=== PATIENT | female | born 1970 | race African-American/Black ===

== ENCOUNTER 2016-04-11 11:17 | Inpatient (IN) | payer OTHER ==
[2016-04-11] VITALS (10 sets, daily range): BP systolic 152–275; BP diastolic 72–165; PULSE 69–150; RESP 14–40; TEMP 97.3–97.5; O2SAT 100
[~2016-04-11] VITALS: Ht 170.2 cm; Wt 49.6 kg
[~2016-04-11 11:17] MED LIST: CARV12.5 PO; NAPR550 PO; PRIN20TA2 PO
[2016-04-11] MEDS ORDERED: ETOMIDATE 20 MG/10 ML VIAL ONE (11:20)
[2016-04-11] MEDS ORDERED: SUCCINYLCHOLINE CHLORIDE 200 MG/10 ML VIAL ONE (11:21)
[2016-04-11] MEDS ORDERED: LIDOCAINE HCL 2% 100 MG/5 ML SYRINGE ONE (11:24)
[2016-04-11] MEDS ORDERED: ETOMIDATE 20 MG/10 ML VIAL IV PUSH ONE (11:45)
[2016-04-11] MEDS ORDERED: LIDOCAINE HCL 2% 100 MG/5 ML SYRINGE IV PUSH ONE (11:45)
[2016-04-11] MEDS ORDERED: SUCCINYLCHOLINE CHLORIDE 200 MG/10 ML VIAL IV PUSH ONE (11:45)
[2016-04-11] MEDS ORDERED: niCARdipine INJ 25 MG in SODIUM CHLOR 0.9% 250 ML INJ 250 ML IV ONE (11:45)
--- NOTE | 2016-04-11 11:50 | RADRPT ---
EXAM DATE/TIME: 04/11/2016 11:32 [facility] COMPARISON: No previous studies available for comparison. INDICATIONS : Altered mental status. RADIATION DOSE: 56.37 CTDIvol (mGy) MEDICAL HISTORY: Unobtainable. SURGICAL HISTORY: Unobtainable. ENCOUNTER: Initial ACUITY: 1 day PAIN SCALE: Non-responsive LOCATION: Cranial TECHNIQUE: Multiple contiguous axial images were obtained of the head. Using automated exposure control and adjustment of the mA and/or kV according to patient size, radiation dose was kept as low as reasonably achievable to obtain optimal diagnostic quality images. FINDINGS: There is parenchymal hemorrhage, ventricular hemorrhage and subarachnoid hemorrhage all associated wi th what it is probably a ruptured MCA aneurysm on the left. The ventricles are minimally prominent. The rig ht hemisphere is unremarkable. Posterior fossa appears normal with the exception of blood in the fourth ventricle. CONCLUSION: 1. 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 2. Findings have been discussed with Dr. Benedict on today's date. Ricardo Castellanos MD FACR on April 11, 2016 at 11:43 Board Certified Radiologist. This report was verified electronically.
[2016-04-11] MEDS ORDERED: IOHEXOL 350 MG/ML 10 ML VIAL (for RAD DIAG) IV ONE (12:11)
[2016-04-11] MEDS ORDERED: LORazepam 2 MG/ML VIAL ONE (12:14)
--- NOTE | 2016-04-11 12:28 | PD ---
HPI Chief Complaint: Altered Mental Status Time Seen by Provider: 11:19 Travel History International Travel<30 days: No Contact w/Intl Traveler<30days: No Traveled to known affect area: No History of Present Illness HPI The patient was seen and examined in the presence of the nurse. This patient was found on the ground unresponsive by family members and paramedics were called. They found her with a GCS of 3 and a blood pressure of 290 systolic. She was brought in with Ambu bag support. She is obviously unable to provide any history or review of systems. She is unresponsive and nonverbal PFSH Past Medical History Arthritis: No Asthma: No Autoimmune Disease: No Blood Disorders: No Anxiety: No Depression: No Heart Rhythm Problems: No Cancer: No High Cholesterol: No Chest Pain: No Congestive Heart Failure: No COPD: No Cerebrovascular Accident: No Diabetes: No Diminished Hearing: No GERD: No Headaches: No Hepatitis: No Hiatal Hernia: No Hypertension: Yes Kidney Stones: No Myocardial Infarction: No Renal Failure: No Seizures: No Sleep Apnea: No Thyroid Disease: No Ulcer: No : 4 Para: 2 Miscarriage: 2 Ectopic : Yes Tubal Ligation: Yes Past Surgical History AICD: No Eye Surgery: Yes (12/07) Pacemaker: No Social History Alcohol Use: No Tobacco Use: Yes (patient reports that she quit smoking when she found out she was .) Substance Use: No Allergies-Medications (Allergen,Severity, Reaction): Coded Allergies: No Known Allergies (Verified , 05/20/10) Reported Meds & Prescriptions Reported Meds & Active Scripts Active Anaprox Ds (Naproxen Sodium) 550 Mg Tab 1 Tab PO BIDPRN Reported Coreg (Carvedilol) 12.5 Mg Tab 12.5 Mg PO BID Prinivil (Lisinopril) 20 Mg Tab 20 Mg PO DAILY Review of Systems ROS Limitations: Clinical Condition, Altered Mental Status, Unresponsive Physical Exam Narrative GENERAL: Well-nourished, well-developed patient who is unresponsive with clenched teeth SKIN: Warm and dry. HEAD: Atraumatic. Normocephalic. EYES: Pupils equal and round. No scleral icterus. No injection or drainage. ENT: No nasal bleeding or discharge. Mucous membranes pink and moist. NECK: Trachea midline. No JVD. CARDIOVASCULAR: Regular rate and rhythm. No murmur appreciated. RESPIRATORY: No accessory muscle use. Clear to auscultation. Breath sounds equal bilaterally. GASTROINTESTINAL: Abdomen soft, non-tender, nondistended. Hepatic and splenic margins not palpable. MUSCULOSKELETAL: No obvious deformities. No clubbing. No cyanosis. No edema. NEUROLOGICAL: GCS 3. Pupils are equal and round at 3 mm. Positive corneal reflex bilaterally. Impossible to test motor strength or sensation given her lack of participation in the exam PSYCHIATRIC: Impossible to test mood and affect; insight and judgment poor Data Data Last Documented VS Vital Signs Date Time Temp Pulse Resp B/P Pulse Ox O2 Delivery O2 Flow Rate FiO2 04/11/16 11:45 100 Orders Etomidate Inj (Amidate Inj) (04/11/16 11:20) Nicardipine Inj (Cardene Inj) (04/11/16 11:20) Succinylcholine Inj (Quelicin Inj) (04/11/16 11:21) Lidocaine 2% Inj (Xylocaine 2% Inj) (04/11/16 11:24) Ct Brain W/O Iv Contrast(Rout) (04/11/16 ) Iv Access Insert/Monitor (04/11/16 11:31) Complete Blood Count With Diff (04/11/16 11:31) Basic Metabolic Panel (Bmp) (04/11/16 11:31) Prothrombin Time / Inr (Pt) (04/11/16 11:31) Act Partial Throm Time (Ptt) (04/11/16 11:31) Drug Screen, Random Urine (04/11/16 11:31) Alcohol (Ethanol) (04/11/16 11:31) Chest, Single Ap (04/11/16 ) Ed Urine Pregnancytest Poc (04/11/16 11:31) Arterial Blood Gas (Abg) (04/11/16 ) Nicardipine Inj (Cardene Inj) (04/11/16 11:45) Etomidate Inj (Amidate Inj) (04/11/16 11:45) Succinylcholine Inj (Quelicin Inj) (04/11/16 11:45) Lidocaine 2% Inj (Xylocaine 2% Inj) (04/11/16 11:45) Cta Brain W Iv Contrast W 3d (04/11/16 11:51) Cta Neck W Iv Contrast W 3d (04/11/16 11:51) Iohexol 350 Inj (Omnipaque 350 Inj) (04/11/16 12:11) Lorazepam Inj (Ativan Inj) (04/11/16 12:14) Admit Order (Ed Use Only) (04/11/16 12:14) Rocuronium Inj (Zemuron Inj) (04/11/16 12:30) Lorazepam Inj (Ativan Inj) (04/11/16 12:30) MDM Medical Decision Making Medical Screen Exam Complete: Yes Emergency Medical Condition: Yes Medical Record Reviewed: Yes Differential Diagnosis Intracranial hemorrhage, aneurysm rupture, CVA Narrative Course I have reviewed the patient's electronic medical record. She was here 2009 with poorly controlled hypertension This patient Arrives critically ill. She has GCS 3 and no ability to control her airway INTUBATION: The patient was put in optimal position for the procedure. Rapid sequence intubation was initiated by me using 100 mg IV lidocaine and then 20 milligrams of etomidate IV and 100 milligrams of succinylcholine IV. The patient was intubated with a 8.0 cuffed endotracheal tube. Tube placement was confirmed by visualization of the tube and balloon passing through the cords, capnometry and subsequent chest x-ray. Breath sounds were equal and well aerated bilaterally postintubation. No breath sounds over stomach. Patient tolerated procedure well. Suspected intracranial hemorrhage based on the presentation Patient has hypertensive emergency as well I initiated Cardene drip. Blood pressure was 2:30 systolic after intubation Brought it down to a goal of 160 systolic I discussed the brain CT with radiologist omar jackson to confirms a large amount of blood on the left side likely from an MCA aneurysm rupture Patient will receive head and neck CTA to evaluate for this Case reviewed in detail with the PA for Dr. Meléndez, neurosurgeon on-call Patient will be admitted to intensive care and I have placed a call to the red lead burner to discuss as well Patient will require emergent ventriculostomy Patient required some additional sedation so I gave her dose of 2 mg IV Ativan which didn't do anything. I gave her 1 dose of Zemuron this to allow procedures to be completed such as OG tube and Rebollar catheter etc. Labs are running 4 CBC metabolic profile coagulation studies alcohol tox etc. I reviewed the case in detail with red lead burner Dr. Junior Patient will be headed up to intensive surgical care very shortly This patient is extremely critical and will be sent to intensive care on a ventilator and Cardene drip to get emergent ventriculostomy Critical Care Narrative Aggregate critical care time was 80 minutes. Time to perform other separately billable procedures was not included in the critical care time. My time did not include minutes spent treating any other patients simultaneously or on activities that did not directly contribute to the patient's treatment. The services I provided to this patient were to treat and/or prevent clinically significant deterioration that could result in: Brain stem herniation, , permanent neurologic disability I provided critical care services requiring my management, as noted below: Chart data review, documentation time, medication orders and management, vital sign assessments/reviewing monitor data, ordering and reviewing lab tests, ordering and interpreting/reviewing x-rays and diagnostic studies, care of the patient and discussion of the patient with the admitting physicians. Physician Communication Physician Communication I discussed with neurosurgeon PA and red lead burner Admitting Information Admitting Physician Requests: Admit Diagnosis: intracranial hemorrhage CoMorbid Conditions Hypertension Lisandro Benedict MD Apr 11, 2016 12:28
[2016-04-11] MEDS ORDERED: ROCURONIUM INJ 50 MG/5 ML VIAL IV ONE (12:30)
[2016-04-11] MEDS ORDERED: LORazepam 2 MG/ML VIAL IV PUSH ONE (12:30)
[2016-04-11 12:44] LABS: HEMATOCRIT 26.2 % (35.0-46.0); MEAN CELL VOLUME 65.1 FL (80.0-100.0); MEAN CORPUSCULAR HEMOGLOBIN 19.6 PG (27.0-34.0); MEAN CORPUSCULAR HGB CONC 30.1 % (32.0-36.0); PLATELET COUNT 279 TH/MM3 (150-450); RED BLOOD COUNT 4.02 MIL/MM3 (4.00-5.30); RED CELL DISTRIBUTION WIDTH 22.1 % (11.6-17.2); WHITE BLOOD COUNT 11.2 TH/MM3 (4.0-11.0)
[2016-04-11 12:46] LABS: HEMO FLAGS AUTO DIFF
[2016-04-11 12:49] LABS: APTT (PATIENT) 22.6 SEC (22.6-28.8); PROTHROMBIN TIME - PATIENT 10.2 SEC (9.8-11.4)
--- NOTE | 2016-04-11 12:51 | RADRPT ---
EXAM DATE/TIME: 04/11/2016 12:01 [facility] COMPARISON: No previous studies available for comparison. INDICATIONS: Bleed. Abnormal brain scan. IV CONTRAST: 50 cc Omnipaque 350 (iohexol) IV ; Cumulative dose for multiple exams. RADIATION DOSE: 27.81 CTDIvol (mGy) ; Combined studies MEDICAL HISTORY: Unobtainable. SURGICAL HISTORY: Unobtainable. ENCOUNTER: Initial ACUITY: 1 day PAIN SCALE: Non-responsive LOCATION: Brain TECHNIQUE: Volumetric scanning was performed using a multi-row detector CT scanner. The data was post processed with a variety of visualization algorithms including full volume maximum intensity pr ojection, multi-planar sliding thin slab reformation, curved planar reformation, and surface renderin g techniques. Using automated exposure control and adjustment of the mA and/or kV according to patie nt size, radiation dose was kept as low as reasonably achievable to obtain optimal diagnostic quality images. FINDINGS: CT of the brain was performed. There is a small aneurysm at the origin of the M2 bifurcation on the right. There is a second aneury sm associated with the cavernous carotid, both on the left. There is no vasospasm as yet. Large par enchymal hemorrhage is again noted. CONCLUSION: Aneurysm as described above. The MCA aneurysm is probably the one that bled. Ricardo Castellanos MD FACR on April 11, 2016 at 12:41 Board Certified Radiologist. This report was verified electronically.
[2016-04-11 12:56] LABS: ANION GAP 16 MEQ/L (5-15); BICARBONATE 17.9 MEQ/L (21.0-32.0); BLOOD UREA NITROGEN 9 MG/DL (7-18); CHLORIDE 106 MEQ/L (98-107); GLOMERULAR FILTRATION RATE 50 ML/MIN (>89); SODIUM (NA) 140 MEQ/L (136-145)
--- NOTE | 2016-04-11 12:56 | RADRPT ---
EXAM DATE/TIME: 04/11/2016 12:01 [facility] COMPARISON: No previous studies available for comparison. INDICATIONS : Bleed. Abnormal brain scan. IV CONTRAST: 50 cc Omnipaque 350 (iohexol) IV ; Cumulative dose for multiple exams. RADIATION DOSE: 27.81 CTDIvol (mGy) ; Combined studies MEDICAL HISTORY : Unobtainable. SURGICAL HISTORY : Unobtainable. ENCOUNTER: Initial ACUITY: 1 day PAIN SCALE: Non-responsive LOCATION: neck TECHNIQUE: Volumetric scanning was performed using a multirow detector CT scanner. The data was post processed with a variety of visualization algorithms including full-volume maximum intensity projection, multip lanar sliding thin-slab reformation, curved-planar reformation, and surface-rendering techniques. Us ing automated exposure control and adjustment of the mA and/or kV according to patient size, radiatio n dose was kept as low as reasonably achievable to obtain optimal diagnostic quality images. FINDINGS: AORTIC ARCH: There is a three-vessel origin of the great vessels from the aorta. No evidence of ostial narrowing. RIGHT CAROTID: The common carotid artery is intact. The carotid bulb has a normal configuration without ulceration o r narrowing. The internal carotid artery lumen is smooth without stenosis. The external carotid susy ry is intact. LEFT CAROTID: The common carotid artery is intact. The carotid bulb has a normal configuration without ulceration or narrowing. The internal carotid artery lumen is smooth without stenosis. The external carotid ar jolynn is intact. VERTEBRALS: The vertebral arteries have a symmetric diameter. No stenotic lesions are seen. CONCLUSION: Negative for hemodynamically significant carotid stenosis. Ricardo Castellanos MD FACR on April 11, 2016 at 12:45 Board Certified Radiologist. This report was verified electronically.
[2016-04-11 12:59] LABS: POTASSIUM 2.6 MEQ/L (3.5-5.1)
[2016-04-11] MEDS ORDERED: POTASSIUM CL 40 MEQ/30 ML LIQ UDC NG STA (13:17)
--- NOTE | 2016-04-11 13:18 | RADRPT ---
EXAM DATE/TIME: 04/11/2016 12:28 [facility] COMPARISON: No previous studies available for comparison. INDICATIONS : Unresponsive, Stroke alert. MEDICAL HISTORY : None. SURGICAL HISTORY : None. ENCOUNTER: Initial ACUITY: 1 day PAIN SCORE: Non-responsive. LOCATION: Bilateral chest FINDINGS: Endotracheal tube is present in good position with tip 3.5 cm above the ganesh. Nasogastric tube desc ends in the stomach. Lungs are focally clear. No pleural effusion is identified. Cardiomediastinal co ntours are satisfactory for technique and projection. CONCLUSION: Satisfactory ET tube positioning. No acute disease. Fei Snyder MD on April 11, 2016 at 13:13 Board Certified Radiologist. This report was verified electronically.
[2016-04-11 13:20] LABS: BLOOD GAS BASE EXCESS -4.2 mmol/L (-2-2); BLOOD GAS CARBOXYHEMOGLOBIN 1.5 % (0-4); BLOOD GAS HCO3 20 mmol/L (22-26); BLOOD GAS METHEMOGLOBIN 1.2 % (0-2); BLOOD GAS O2 HGB SATURATION 98 % (90-100); BLOOD GAS PCO2 33 mmHg (38-42); BLOOD GAS PO2 372 mmHg (61-120); BLOOD GAS TOTAL HGB 7.3 G/DL (12.0-16.0); CRITICAL VALUE NO; OXYGEN DEVICE VENT; TEMP CORR TO 98.6
[2016-04-11 13:24] LABS: DRAW SITE ART LINE; FIO2 100 %; STAT NO; VENT SETTINGS PRVC/20RATE/500/5PEE
[2016-04-11] MEDS ORDERED: LORazepam 2 MG/ML VIAL IV PRN (13:30)
[2016-04-11] MEDS ORDERED: POTASSIUM CL 40 MEQ/30 ML LIQ UDC PO/TUBE PRN (13:30)
[2016-04-11] MEDS ORDERED: POTASSIUM CHLOR 20 MEQ PREMIX 100 ML IV PRN (13:30)
[2016-04-11] MEDS ORDERED: POTASSIUM PHOSPHATE MONOBASIC 500 MG TAB PO/TUBE PRN (13:30)
[2016-04-11] MEDS ORDERED: POTASSIUM PHOSPHATE MONOBASIC 500 MG TAB PO PRN (13:30)
[2016-04-11] MEDS ORDERED: MAGNESIUM SULFATE INJ 4 GM in SODIUM CHLORIDE 0.9% INJ 92 ML IV PRN (13:30)
[2016-04-11] MEDS ORDERED: SODIUM CHLORIDE 0.9% FLUSH 5 ML FLUSH IVF PRN (13:30)
[2016-04-11] MEDS ORDERED: MISCELLANEOUS NURSING INFORMATION XX SCH (13:30)
[2016-04-11] MEDS ORDERED: MAGNESIUM OXIDE 400 MG TAB PO PRN (13:30)
[2016-04-11] MEDS ORDERED: ONDANSETRON HCL 4 MG/2 ML VIAL IV PRN (13:30)
[2016-04-11] MEDS ORDERED: CHLORHEXIDINE GLUCONATE 2 % 1 PACK (2 CLOTHS) TOP PRN (13:30)
[2016-04-11] MEDS ORDERED: POTASSIUM PHOSPHATE INJ 30 MMOL in SODIUM CHLOR 0.9% 250 ML INJ 250 ML IV PRN (13:30)
[2016-04-11] MEDS ORDERED: ACETAMINOPHEN 325 MG TAB PO PRN (13:30)
[2016-04-11 13:34] LABS: ACANTHOCYTES 1+ (NORMAL); NEUTROPHIL # MANUAL DIFF 8.8 TH/MM3 (1.8-7.7); OVALOCYTES 1+ (NORMAL); POLYS (SEG NEUTROPHILS) 79 % (16-70); WBC DIFF SAMPLE 100
[2016-04-11 13:35] LABS: KERATOCYTES OCC (NORMAL); PLATELET ESTIMATE SMEAR NORMAL (NORMAL); PLATELET MORPHOLOGY NORMAL (NORMAL); SCAN/DIFF FINAL DIFF MANUAL; TEARDROP RBCS 1+ (NORMAL)
[2016-04-11] MEDS ORDERED: levETIRAcetam 1000 MG INJ 100 ML IV ONE (13:45)
[2016-04-11] MEDS ORDERED: VERAPAMIL HCL 5 MG/2 ML VIAL ONE (13:48)
[2016-04-11] MEDS: METOPROLOL TARTRATE 25 MG TAB PO SCH ×2 (14:00→21:50)
--- NOTE | 2016-04-11 14:19 | RADRPT ---
EXAM DATE/TIME: 04/11/2016 13:18 [facility] COMPARISON: CTA CAROTID ARTERIES W 3D RECON, April 11, 2016, 12:01. CHEST SINGLE AP, April 11, 2016, 12:28. INDICATIONS : Line placement MEDICAL HISTORY : None. SURGICAL HISTORY : None. ENCOUNTER: Subsequent ACUITY: 1 day PAIN SCORE: Non-responsive. LOCATION: Bilateral chest FINDINGS: Endotracheal tube and nasogastric tube are stable. Left subclavian central line is in good position w ith tip overlying SVC. There is no evidence of pneumothorax or other complication. Chest is otherwise stable with minimal bilateral parenchymal lung opacity.. CONCLUSION: Satisfactory line placement Fei Snyder MD on April 11, 2016 at 14:14 Board Certified Radiologist. This report was verified electronically.
--- NOTE | 2016-04-11 14:30 | PD.PROCEDR ---
Procedure Note Procedure DX: Acute Subarachnoid Hemorrhage OP: 1. Insertion Left Subclavian Vein Central Line (47041) 2. Insertion Right Radial Artery line (73215) Procedure: Right hand Hudson test normal. Right wrist supinated and right radial artery cannulated with 20 gauge angiocath after prep and drape. Dressing applied and good waveform observed. Let chest prepped and draped. Left subclavian vein cannulated and wire easily advanced. Catheter passed over wire to 16 cm. Lumens aspirated and flushed. Dressing applied. CXR with line in good position suitable for use. Jeffrey Chand MD Apr 11, 2016 14:30
--- NOTE | 2016-04-11 15:02 | MH ---
cc: RILEY LEMONS MD DATE OF ADMISSION: 04/11/2016 CHIEF COMPLAINT Brought in for altered mental status. HISTORY OF PRESENT ILLNESS This 46-year-old woman with a longstanding history of hypertension, was found unresponsive at her home and paramedics arrived to find her with shallow breathing and a Ferron coma scale of three. Systolic blood pressure was 290 and under bag mask ventilation. She was brought to the emergency department where she remained unresponsive and required endotracheal intubation, mechanical ventilation. A CT scan of the head showed a large left hemispheric intraparenchymal hemorrhage with subarachnoid blood as well. Subsequent evaluation confirmed a left middle cerebral artery aneurysm which appears to be the culprit lesion. She was brought immediately to the [facility] where we continued Cardene drip infusion for blood pressure control and placed arterial monitoring lines and central venous line. Electrolyte abnormalities were corrected, particularly severe hypokalemia. The ventilator was adjusted to maintain arterial CO2, between 35 and 40. She received Keppra loading intravenously and Nimotop through the nasogastric tube. Usual ICU monitoring was in place and arrangements were made for her to be transported expeditiously to interventional radiology where attempts will be made to coil the aneurysm. PAST MEDICAL HISTORY: Hypertension. ALLERGIES NONE. MEDICATIONS home medications include 1. Lisinopril 20 mg daily. 2. Carvedilol 12.5 mg twice a day. 3. Naprosyn 550 mg p.o. daily. 4. RADIOLOGIC: A chest x-ray was clear, showing endotracheal tube, central line and nasogastric tube in good position. PERTINENT LABORATORY DATA Included electrolytes: Sodium 140, potassium 2.6. Lactic acid 4.9, creatinine 1.36, BUN 9. The arterial blood gas revealed pH 7.40, pCO2 33, pO2 372 with a calculated bicarb of 20. Hematology profile indicated hemoglobin 7.9, platelet count of 279,000. Toxicology screen was negative. REVIEW OF SYSTEMS Unobtainable as the patient is obtunded and intubated. PHYSICAL EXAMINATION: IN GENERAL: Physical examination reveals a well-developed, middle-aged -[place] woman, unresponsive. VITAL SIGNS: Blood pressure 145/92, pulse 128 and sinus, respiratory rate 20 on mechanical ventilation. HEAD, EYES, EARS, NOSE, AND THROAT: Head: Atraumatic and normal. NECK: Supple. No resistance to motion. Orally intubated. LUNGS: Clear bilaterally with good air entry and no wheezes or crackles. HEART: Normal S1-S2, tachycardia, no murmur or rub, neck veins are mildly distended. ABDOMEN: Soft, nontender, nondistended, no guarding, bowel sounds few. EXTREMITIES: Warm, well-perfused, foot and wrist pulses intact. NEUROLOGIC: Pupils are 2 mm and nonreactive. Doll's eyes are absent, deep tendon reflexes are absent at the knee and ankle. No clonus, no withdrawal to stimulation, cough reflex weak. ASSESSMENT 1. Acute subarachnoid hemorrhage, left middle cerebral artery aneurysm. 2. Respiratory failure. 3. Malignant hypertension. 4. Hypokalemia. 5. History of hypertension. 6. Acute encephalopathy. 7. Lactic acidosis. 8. History of hypertension. 9. Acute encephalopathy. 10. Lactic acidosis. PLAN: 1. Plan is to maintain blood pressure less than 120 until aneurysmal coiled. 2. Cardene intravenous infusion for BP control immediately 3. Nimotop 60 mg per NG tube q. 4-hour 4. Protonix for GI ulcer prophylaxis 5. Chemical DVT prophylaxis contraindicated because of active bleeding. 6. SCDs for DVT prophylaxis. 7. Head of bed up 20 degrees. 8. Follow electrolyte replacement closely. 9. Nasogastric tube to low intermittent suction except for minutes. 10. Monitor End tidal CO2, maintain between 35 and 40 Torr by adjusting ventilator rate. 11. Mechanical ventilation PRVC mode, PEEP five. OVERALL IMPRESSION This woman is sustained a devastating intraparenchymal hemorrhage associated with a ruptured of middle cerebral artery distribution aneurysm. There is diffuse subarachnoid and intraventricular blood as well. She is critically ill at this time and her prognosis is guarded. She has been stabilized in the [facility] and will be transported rapidly to the interventional suite for attempted coiling. Critical care time involved is 46 minutes aside from invasive procedures. P. Alexander Lemons MD [facility]/anna marie /2:19 PM /2:51 PM
[2016-04-11] MEDS: niMODipine 30 MG CAP PO SCH ×3 (16:00→23:13)
[2016-04-11] MEDS ORDERED: ceFAZolin 2 GM PREMIX 50 ML ONE (16:09)
[2016-04-11] MEDS ORDERED: HEPARIN SODIUM - IV 10,000 UNITS/10 ML VIAL ONE (17:09)
[2016-04-11] MEDS ORDERED: MIDAZOLAM HCL 2 MG/2 ML VIAL ONE (17:10)
--- NOTE | 2016-04-11 18:20 | PD.RAD ---
Post Procedure Progress Note Pre Procedure Diagnosis: (1) Acute spontaneous subarachnoid intracranial hemorrhage (2) Cerebral aneurysm rupture Post Procedure Diagnosis: (1) Acute spontaneous subarachnoid intracranial hemorrhage (2) Cerebral aneurysm rupture Procedure Date: Apr 11, 2016 Supervising Radiologist: Kennedy Thibodeaux JR Proceduralist/Assist: Kenn Jade, RT(R)(), Letty Boothe, RT(R), Anuradha Alfaro, RT(R)(), Jeramy Gautam RT(R)() Anesthesia: Conscious Sedation Plan of Activity Patient to Unit: Critical Care Patient Condition: Fair See PACS Report for procedural detail/treatment Vascular-Arterial Procedure Procedure 1 Procedure Site: Cerebral Procedure(s): Embolization Access Access Site(s): Right Femoral Artery Closure Site(s): Right vascular closure device Findings: Cerebral angiography shows two aneurysms. The largest and most complex involves the left posterior cerebral origin in this patient with persistent circulation on the left. Successful coil embolization of the largest aneurysm. Preservation of the posterior cerebral artery and ICA following the coiling. Attempts at coil embolization of the M1 aneurysm on the left not successful due to large base/dome ratio. Unable to treat this aneurysm via endovascular methods. Jr. Carlos Eduardo,Kennedy Shaw MD Apr 11, 2016 18:20
[2016-04-11] MEDS ORDERED: IODIXANOL 320 MG/ML 50 ML VIAL (for RAD SPEC) I-ARTERIAL ONE (18:44)
[2016-04-11] MEDS ORDERED: PROPOFOL 1000 MG/100 ML INJ 100 ML ONE (19:50)
[2016-04-11] MEDS ORDERED: NOREPINEPHRINE 4 MG/4 ML AMP ONE (20:03)
--- NOTE | 2016-04-11 20:03 | RADRPT ---
EXAM DATE/TIME: 04/11/2016 14:18 [place] COMPARISON: No previous studies available for comparison. INDICATIONS : <<Patient has acute extensive intracranial hemorrhage with 2 aneurysms observed on CTA. Angiography w ith intervention requested. MEDICAL HISTORY : History of HTN. SURGICAL HISTORY : History of eye surgery. ENCOUNTER: Initial ACUITY: 1 day PAIN SCORE: Nonresponsive. LOCATION: Patient is vented. FLUORO TIME: 57.1 minutes ACCESS SITE: Right Femoral artery SEDATION TIME: 120 minutes CONTRAST: 95 cc Visipaque (iodixanol) MEDICATION(S): 1.) 2 mg midazolam (Versed) IV 2.) 100 mcg fentanyl (Sublimaze) IV 3.) 3000 units Heparin IV 4.) 2 g cefazolin (Ancef) IV Vancomycin within 2 hours of procedure, Ancef (or alternative) within 1 hour of procedure. DEVICE(S): 1.) Left posterior cerebral artery embolic coil(s) 5mm x 10cm Complex Fill 2.) Left posterior cerebral artery embolic coil(s) 5mm x 10cm Complex Fill 3.) Left posterior cerebral artery embolic coil(s) 6mm x 10cm Complex Fill PROCEDURE : 1. Ultrasound-guided puncture of the access site. 2. Angiography of the access site prior to closure device. 3. Conscious sedation with continuous EKG and Oximetry monitoring. 4. Percutaneous closure of the access site. 5. Angiography of the left supraclinoid ICA 6. Angiography of the left M1 segment of the middle cerebral artery 7. 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 The site was prepped in sterile fashion. Full sterile technique was used, including ca p, mask, sterile gloves and gown and a large sterile sheet. Hand hygiene and 2% chlorhexidine and/or betadine/alcohol prep was utilized per protocol for cutaneous antisepsis. The skin and subcutaneous tissues were infiltrated with local anesthetic solution. With ultrasound and fluoroscopic guidance the selected artery was punctured and a vascular sheath was placed. Angiography of the common femoral artery was performed for evaluation prior to percutaneous closure device placement. A 6 [place] Rabbe sheath was positioned in the mid common carotid artery on the left. A neuron guide c atheter was positioned in the peaches portion of the left ICA. Selected angiographic views of the lef t supraclinoid ICA reveal a highly lobulated irregularly shaped saccular aneurysm arising from the or igin of the left posterior cerebral artery in this patient with persistent circulation. This an eurysm is extremely complex in nature and felt to be the ER due to the patients acute hemorrhage. The aneurysm measures up proximally 6 mm in size. Under fluoroscopic guidance the aneurysm was selected with a microcatheter and a total of 3 coils were deployed within the aneurysm. Initially a 5 mm x 10 cm complex fill coil was deployed with a subsequent 5 mm 10 cm complex coil. Lastly a 6 mm x 10 cm co mplex fill coil was utilized to finish the packing of the aneurysm. A followup angiogram was performe d after each coil deployment. The coil pack fills the aneurysm nicely. The posterior cerebral artery and ICA remain patent. Attention was then turned to the small left M1 segment aneurysm. Dedicated angiographic pictures of t his aneurysm show this aneurysm to measure approximately 4 mm in diameter. The base also measures 4 m m. The base/dome ratio is essentially one. Attempts were made at trying to get a 4 mm and subsequentl y 3 mm coil to film of the aneurysm at the base was too large allowing the coil pack to fall into the M1 segment. These coils were not deployed. We're unable to embolize this aneurysm. Hemostasis was obtained with the prescribed medicated closure device. Conscious sedation was perform ed with the prescribed dosages and duration as above. EKG and oximetry remained stable throughout th e procedure. The patient was sent to post anesthesia recovery in stable condition. CONCLUSION: 1. 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 This is the aneurysm felt responsible for the intracranial hemorrhage. 2. Small 4 mm left M1 segment aneurysm. Attempts at embolizing this aneurysm were unsuccessful due to the broad based nature of the aneurysm. Endovascular repair of this aneurysm could not be performed. Kennedy Thibodeaux Jr., MD on April 11, 2016 at 19:51 Board Certified Radiologist. This report was verified electronically.
[2016-04-11] MEDS ORDERED: NOREPINEPHRINE INJ 4 MG in SODIUM CHLOR 0.9% 250 ML INJ 250 ML IV SCH (20:30)
[2016-04-11] MEDS ORDERED: NOREPINEPHRINE 4 MG/D5W 250 ML IV SCH (20:30)
[2016-04-11 20:57] LABS: BLOOD GAS BASE EXCESS -3.1 mmol/L (-2-2); BLOOD GAS CARBOXYHEMOGLOBIN 1.4 % (0-4); BLOOD GAS HCO3 21 mmol/L (22-26); BLOOD GAS METHEMOGLOBIN 1.2 % (0-2); BLOOD GAS O2 HGB SATURATION 98 % (90-100); BLOOD GAS OXYGEN CONTENT 10.2 Vol % (12.0-20.0); BLOOD GAS PCO2 33 mmHg (38-42); BLOOD GAS PO2 450 mmHg (61-120); BLOOD GAS TOTAL HGB 6.5 G/DL (12.0-16.0); TEMP CORR TO 98.6
[2016-04-11 20:59] LABS: CRITICAL VALUE YES; DRAW SITE ART LINE; FIO2 100 %; OXYGEN DEVICE VENTILATOR; STAT NO; VENT SETTINGS PRVC/AC
[2016-04-11] MEDS: levETIRAcetam 500MG PREMIX INJ 100 ML IV SCH (21:45)
[2016-04-11] MEDS: SODIUM CHLORIDE 0.9% FLUSH 5 ML FLUSH IVF SCH (21:47)
[2016-04-11 22:05] LABS: AMPHETAMINE, URINE NEG (NEG); BARBITURATES, URINE NEG (NEG); COCAINE, URINE NEG (NEG)
[2016-04-11] MEDS: NS + KCL 20 MEQ INJ 1,000 ML IV SCH ×2 (22:19→23:51)
[2016-04-11 22:22] LABS: INDIRECT BILIRUBIN 0.3 MG/DL (0.0-0.8); MAGNESIUM 2.2 MG/DL (1.5-2.5); TOTAL BILIRUBIN ADULT 0.4 MG/DL (0.2-1.0)
[2016-04-11 22:27] LABS: BICARBONATE 24.8 MEQ/L (21.0-32.0); POTASSIUM 3.6 MEQ/L (3.5-5.1)
[2016-04-11 22:48] LABS: HEMATOCRIT 21.9 % (35.0-46.0)
[2016-04-11] MEDS: PROPOFOL 1000 MG/100 ML IV SCH ×2 (22:50→23:13)
[2016-04-11 22:51] LABS: REVIEW FLAG FINAL
--- NOTE | 2016-04-11 23:50 | PD.CONS ---
History of Present Illness Service Neurosurgery Consult Requested By Emergency department Reason for Consult Subarachnoid hemorrhage Primary Care Physician Unknown Diagnoses: History of Present Illness 46-year-old female found unresponsive at home by her family this morning. They last spoke to her on the telephone last evening. She has had headaches for approximately a week. Review of Systems Other Unobtainable from the patient. 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 Left ruptured ectopic 2004 Reported Medications Lisinopril Carvedilol Family History No history of aneurysms in the family Social History Previously smoked cigarettes. No alcohol use Family states no illicit drug use Physical Exam Vital Signs Vital Signs Date Time Temp Pulse Resp B/P Pulse Ox O2 Delivery O2 Flow Rate FiO2 04/11/16 22:02 100 40 04/11/16 22:00 76 04/11/16 22:00 97.5 76 14 156/72 100 04/11/16 20:18 100 100 04/11/16 20:00 50 04/11/16 20:00 69 04/11/16 14:40 100 100 04/11/16 14:00 100 04/11/16 12:38 100 100 04/11/16 12:30 100 40 04/11/16 12:30 121 16 164/89 100 Ventilator 100 04/11/16 12:15 100 04/11/16 12:00 111 16 152/87 100 Ventilator 100 04/11/16 11:45 100 04/11/16 11:30 120 16 235/140 100 Ventilator 100 04/11/16 11:30 100 04/11/16 11:20 97.3 150 40 275/165 100 Physical Exam GENERAL: This is a well-nourished, well-developed patient, intubated in the intensive care unit SKIN: No rashes, ecchymoses or lesions. Cool and dry. HEAD: Atraumatic. Normocephalic. EYES: Sclerae are clear and nonicteric ENT: Nose without bleeding, purulent drainage or septal hematoma. Intubated NECK: Trachea midline. No JVD or lymphadenopathy. Supple, no meningeal signs. CARDIOVASCULAR: Regular rate and rhythm without murmurs, gallops, or rubs. RESPIRATORY: Clear to auscultation. Breath sounds equal bilaterally. No wheezes , rales, or rhonchi. Intubated GASTROINTESTINAL: Abdomen soft, nondistended. No hepato-splenomegaly, or palpable masses. No guarding. MUSCULOSKELETAL: Extremities without clubbing, cyanosis, or edema. No joint tenderness, effusion, or edema noted. No calf tenderness. Posterior tibial pulse 2+ bilateral. NEUROLOGICAL: Intubated No eye opening to voice or deep pain or spontaneous Does not follow commands Pupils 3 mm nonreactive Mild corneal responses Absent oculocephalic responses Extensor posturing all extremities to deep pain Laboratory Laboratory Tests Test 04/11/16 04/11/16 04/11/16 04/11/16 12:30 13:06 13:15 20:44 White Blood Count 11.2 Red Blood Count 4.02 Hemoglobin 7.9 Hematocrit 26.2 Mean Corpuscular Volume 65.1 Mean Corpuscular Hemoglobin 19.6 Mean Corpuscular Hemoglobin 30.1 Concent Red Cell Distribution Width 22.1 Platelet Count 279 Mean Platelet Volume 9.1 Neutrophils (%) (Auto) Lymphocytes (%) (Auto) Monocytes (%) (Auto) Eosinophils (%) (Auto) Basophils (%) (Auto) Neutrophils # (Auto) Lymphocytes # (Auto) Monocytes # (Auto) Eosinophils # (Auto) Basophils # (Auto) CBC Comment AUTO DIFF Differential Total Cells 100 Counted Neutrophils % (Manual) 79 Lymphocytes % 16 Monocytes % 5 Neutrophils # (Manual) 8.8 Differential Comment FINAL DIFF MANUAL Platelet Estimate NORMAL Platelet Morphology Comment NORMAL Tear Drop Cells 1+ Ovalocytes 1+ Acanthocytes 1+ Keratocytes OCC Prothrombin Time 10.2 Prothromb Time International 1.0 Ratio Activated Partial 22.6 Thromboplast Time Sodium Level 140 Potassium Level 2.6 Chloride Level 106 Carbon Dioxide Level 17.9 Anion Gap 16 Blood Urea Nitrogen 9 Creatinine 1.36 Estimat Glomerular Filtration 50 Rate Random Glucose 279 Calcium Level 8.5 Phosphorus Level 1.7 Magnesium Level 2.2 Total Bilirubin 0.4 Direct Bilirubin 0.1 Indirect Bilirubin 0.3 Aspartate Amino Transf 43 (AST/SGOT) Alanine Aminotransferase 21 (ALT/SGPT) Alkaline Phosphatase 122 Total Protein 8.0 Albumin 3.7 Ethyl Alcohol Level LESS THAN 3 Blood Gas Puncture Site ART LINE ART LINE Blood Gas Patient Temperature 98.6 98.6 Blood Gas HCO3 20 21 Blood Gas Base Excess -4.2 -3.1 Blood Gas Oxygen Saturation 98 98 Arterial Blood pH 7.40 7.42 Arterial Blood Partial 33 33 Pressure CO2 Arterial Blood Partial 372 450 Pressure O2 Arterial Blood Oxygen Content 11.0 10.2 Arterial Blood 1.5 1.4 Carboxyhemoglobin Arterial Blood Methemoglobin 1.2 1.2 Blood Gas Hemoglobin 7.3 6.5 Oxygen Delivery Device VENT VENTILATOR Blood Gas Ventilator Setting PRVC/20RATE/500/5PEE PRVC/AC Blood Gas Inspired Oxygen 100 100 Lactic Acid Level 4.9 Test 04/11/16 04/11/16 04/11/16 21:33 21:35 22:11 Sodium Level 144 Potassium Level 3.6 Chloride Level 113 Carbon Dioxide Level 24.8 Anion Gap 6 Blood Urea Nitrogen 12 Creatinine 1.02 Estimat Glomerular Filtration 70 Rate Random Glucose 78 Serum Osmolality 299 Lactic Acid Level 1.4 Calcium Level 7.7 Urine Opiates Screen NEG Urine Barbiturates Screen NEG Urine Amphetamines Screen NEG Urine Benzodiazepines Screen POS Urine Cocaine Screen NEG Urine Cannabinoids Screen POS Hemoglobin 6.3 Hematocrit 21.9 Date/Time Procedure Status Source Growth 04/11/16 15:00 Gram Stain - Final Resulted Cerebral Spinal Fluid Shunt Fluid 04/11/16 15:00 CSF Culture Resulted Cerebral Spinal Fluid Shunt Fluid Pending Result Diagram: 04/11/16 2211 04/11/[address] head and CTA neck and head images are reviewed by the undersigned. Agree with findings as follows: Neck CTA 04/11/16 1151 Signed Impressions: Service Date/Time: Monday, April 11, 2016 12:01 - CONCLUSION: Negative for hemodynamically significant carotid stenosis. Ricardo Castellanos MD FACR Head CTA 04/11/16 1151 Signed Impressions: Service Date/Time: Monday, April 11, 2016 12:01 - CONCLUSION: Aneurysm as described above. The MCA aneurysm is probably the one that bled. Ricardo Castellanos MD FACR Head CT 04/11/16 0000 Signed Impressions: Service Date/Time: Monday, April 11, 2016 11:32 - CONCLUSION: 1. 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 2. Findings have been discussed with Dr. Benedict on today's date. Ricardo Castellanos MD FACR Chest X-Ray 04/11/16 0000 Signed Impressions: Service Date/Time: Monday, April 11, 2016 13:18 - CONCLUSION: Satisfactory line placement Fei Snyder MD Cerebral Arteriogram 04/11/16 0000 Signed Impressions: Service Date/Time: Monday, April 11, 2016 14:18 - CONCLUSION: 1. 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 This is the aneurysm felt responsible for the intracranial hemorrhage. 2. Small 4 mm left M1 segment aneurysm. Attempts at embolizing this aneurysm were unsuccessful due to the broad based nature of the aneurysm. Endovascular repair of this aneurysm could not be performed. Kennedy Thibodeaux Jr., MD Assessment and Plan Assessment and Plan Impression: Aneurysmal subarachnoid hemorrhage Left posterior communicating artery, and MCA aneurysms Hypertension Recommendations: Findings assess awake with the patient's family in the intensive surgical care unit Discussed with qa specialist Discussed with emergency room physician Discussed with interventional radiology Patient admitted to intensive surgical care unit Ventriculostomy placed by the undersigned-to be dictated separately Cerebral angiogram for aneurysm coiling Continue nimodipine Continue prophylactic anticonvulsant Non-chemical DVT prophylaxis Ulcer prophylaxis Follow-up CT scan had a.m. Systolic blood pressure 130-160 post-angiogram Follow-up CT angiogram 48 hours to assess for vasospasm Sherwin Meléndez MD Apr 11, 2016 23:50
--- NOTE | 2016-04-11 23:52 | PD.OP ---
Operative Report Date of Surgery: Apr 11, 2016 Preoperative Diagnosis: (1) Acute spontaneous subarachnoid intracranial hemorrhage (2) Cerebral aneurysm rupture Postoperative Diagnosis: (1) Acute spontaneous subarachnoid intracranial hemorrhage (2) Cerebral aneurysm rupture Procedure: Right frontal twist drill for ventriculostomy placement Anesthesia: 1% Xylocaine local anesthetic Intravenous sedation Surgeon: Sherwin Meléndez Table Attendant(s): None Operation and Findings: The procedure was performed in the surgical intensive care unit. The procedure, risks, and possible complications were fully explained to the family prior to the procedure and consent obtained and witnessed. Appropriate timeout procedure was performed with all personnel present and in agreement The patient was placed in supine position with the head and neck in neutral position and the head of the bed elevated approximately 30. The right frontal region was shaved with clippers and sterilely prepped and draped. One percent Xylocaine without epinephrine was used for local infiltration over the small incision site which was made approximately 9-10 cm above the right supraorbital rim, approximately 3-1/2 to 4 cm lateral to the midline, in the mid pupillary line just anterior to the coronal suture. The hand drill was used to make a single twist drill opening in the cranium and the dura was perforated with the trocar. The Codman Bactiseal ventriculostomy catheter was advanced to a depth of 6-7 cm intracranial in a single pass with good return of spinal fluid. Opening pressure was 20 centimeter water The catheter was tunneled to the posterior frontal region with a trocar and secured to the skin with 3-0 nylon suture which was also used to close the small incision. A sterile bactericidal dressing was applied The catheter was connected to the drainage reservoir, and there was good drainage of fluid. The patient's neurologic exam remained stable following the procedure No specimen was sent There was no significant bleeding Sherwin Meléndez MD Apr 11, 2016 23:52
[2016-04-12] VITALS (19 sets, daily range): BP systolic 123–160; BP diastolic 61–78; PULSE 55–72; RESP 14–20; TEMP 97.2–98.6; O2SAT 100
[2016-04-12] MEDS: METOPROLOL TARTRATE 25 MG TAB PO SCH ×4 (02:00→20:00)
[2016-04-12] MEDS: niCARdipine INJ 25 MG in SODIUM CHLOR 0.9% 250 ML INJ 250 ML IV SCH ×2 (03:08→07:58)
[2016-04-12] MEDS: niMODipine 30 MG CAP PO SCH ×6 (03:10→23:28)
[2016-04-12 04:29] LABS: AUTOMATED NEUTROPHIL # 12.8 TH/MM3 (1.8-7.7); BASOPHIL # 0.1 TH/MM3 (0-0.2); BASOPHIL % 0.3 % (0.0-2.0); EOSINOPHIL % 0.1 % (0.0-4.0); HEMATOCRIT 31.8 % (35.0-46.0); LYMPH % 10.7 % (9.0-44.0); LYMPHOCYTE # 1.6 TH/MM3 (1.0-4.8); MEAN CELL VOLUME 71.2 FL (80.0-100.0); MEAN CORPUSCULAR HEMOGLOBIN 22.1 PG (27.0-34.0); MONO % 5.1 % (0.0-8.0); NEUT % 83.8 % (16.0-70.0); PLATELET COUNT 178 TH/MM3 (150-450); RED BLOOD COUNT 4.47 MIL/MM3 (4.00-5.30); RED CELL DISTRIBUTION WIDTH 26.1 % (11.6-17.2); WHITE BLOOD COUNT 15.3 TH/MM3 (4.0-11.0)
[2016-04-12 04:39] LABS: HEMO FLAGS AUTO DIFF
[2016-04-12 04:51] LABS: BICARBONATE 21.2 MEQ/L (21.0-32.0); CALCIUM-PROTEIN CORRECTED 7.7 MG/DL (8.5-10.1); MAGNESIUM 1.8 MG/DL (1.5-2.5); POTASSIUM 4.3 MEQ/L (3.5-5.1); TOTAL BILIRUBIN ADULT 0.7 MG/DL (0.2-1.0)
[2016-04-12] MEDS: CHLORHEXIDINE GLUCONATE 2 % 1 PACK (2 CLOTHS) TOP SCH (04:57)
[2016-04-12 06:12] LABS: BLOOD GAS BASE EXCESS -4.9 mmol/L (-2-2); BLOOD GAS CARBOXYHEMOGLOBIN 1.3 % (0-4); BLOOD GAS HCO3 19 mmol/L (22-26); BLOOD GAS METHEMOGLOBIN 1.1 % (0-2); BLOOD GAS O2 HGB SATURATION 97 % (90-100); BLOOD GAS OXYGEN CONTENT 15.4 Vol % (12.0-20.0); BLOOD GAS PCO2 30 mmHg (38-42); BLOOD GAS PO2 135 mmHg (61-120); BLOOD GAS TOTAL HGB 11.2 G/DL (12.0-16.0); CRITICAL VALUE NO; OXYGEN DEVICE VENTILATOR; TEMP CORR TO 98.6
[2016-04-12 06:13] LABS: DRAW SITE ART LINE; FIO2 40 %; STAT NO; VENT SETTINGS PRVC/AC
[2016-04-12] MEDS: PANTOPRAZOLE SODIUM 40 MG VIAL IV SCH (07:58)
[2016-04-12] MEDS: LACTULOSE SYRUP 20 GM/30 ML CUP PO SCH (07:58)
[2016-04-12] MEDS: levETIRAcetam 500MG PREMIX INJ 100 ML IV SCH ×2 (07:59→21:03)
[2016-04-12] MEDS: NS + KCL 20 MEQ INJ 1,000 ML IV SCH ×2 (07:59→16:13)
[2016-04-12] MEDS: SODIUM CHLORIDE 0.9% FLUSH 5 ML FLUSH IVF SCH ×2 (08:00→21:04)
[2016-04-12] MEDS: PROPOFOL 1000 MG/100 ML IV SCH ×4 (08:03→21:03)
--- NOTE | 2016-04-12 08:19 | HHI.CCPN ---
Subjective Remarks/Hospital Course SAH, unresponsive, malignant hypertension - This 46-year-old woman with a longstanding history of hypertension, was found unresponsive at her home and paramedics arrived to find her with shallow breathing and a Angelica coma scale of three. Systolic blood pressure was 290 and under bag mask ventilation. She was brought to the emergency department where she remained unresponsive and required endotracheal intubation, mechanical ventilation. A CT scan of the head showed a large left hemispheric intraparenchymal hemorrhage with subarachnoid blood as well. Subsequent evaluation confirmed a left middle cerebral artery aneurysm which appears to be the culprit lesion. She was brought immediately to the [facility] where we continued Cardene drip infusion for blood pressure control and placed arterial monitoring lines and central venous line. Electrolyte abnormalities were corrected, particularly severe hypokalemia. The ventilator was adjusted to maintain arterial CO2, between 35 and 40. She received Keppra loading intravenously and Nimotop through the nasogastric tube. Usual ICU monitoring was in place and arrangements were made, a ventriculostomy was placed, and transported expeditiously to interventional radiology where attempts will be made to coil the aneurysm. 04/12: Culprit (larger) aneurysm was coiled last evening. ICP acceptable with drainage bloody as expected. Withdraws 4 limbs to pain. Objective - Vital Signs Date Time Temp Pulse Resp B/P Pulse Ox O2 Delivery O2 Flow Rate FiO2 04/12/16 07:51 100 40 04/12/16 06:00 64 04/12/16 04:00 97.2 14 159/74 04/11/16 12:30 Ventilator Intake and Output 04/11/16 04/11/16 04/12/16 08:00 16:00 00:00 Intake Total 845 ml Output Total 783 ml Balance 62 ml Result Diagram: 04/12/16 0403 04/12/16 0403 Other Results Laboratory Tests Test 04/11/16 04/11/16 04/12/16 13:06 20:44 05:58 Blood Gas Puncture Site ART LINE ART LINE ART LINE Blood Gas Patient Temperature 98.6 98.6 98.6 Blood Gas HCO3 20 mmol/L 21 mmol/L 19 mmol/L (22-26) (22-26) (22-26) Blood Gas Base Excess -4.2 mmol/L -3.1 mmol/L -4.9 mmol/L (-2-2) (-2-2) (-2-2) Blood Gas Oxygen Saturation 98 % (90-100) 98 % (90-100) 97 % (90-100) Arterial Blood pH 7.40 7.42 7.42 (7.380-7.420) (7.380-7.420) (7.380-7.420) Arterial Blood Partial 33 mmHg (38-42) 33 mmHg (38-42) 30 mmHg (38-42) Pressure CO2 Arterial Blood Partial 372 mmHg 450 mmHg 135 mmHg Pressure O2 (61-120) (61-120) (61-120) Arterial Blood Oxygen Content 11.0 Vol % 10.2 Vol % 15.4 Vol % (12.0-20.0) (12.0-20.0) (12.0-20.0) Arterial Blood 1.5 % (0-4) 1.4 % (0-4) 1.3 % (0-4) Carboxyhemoglobin Arterial Blood Methemoglobin 1.2 % (0-2) 1.2 % (0-2) 1.1 % (0-2) Blood Gas Hemoglobin 7.3 G/DL 6.5 G/DL 11.2 G/DL (12.0-16.0) (12.0-16.0) (12.0-16.0) Oxygen Delivery Device VENT VENTILATOR VENTILATOR Blood Gas Ventilator Setting PRVC/20RATE/500/5PEE PRVC/AC PRVC/AC Blood Gas Inspired Oxygen 100 % 100 % 40 % Objective Remarks PHYSICAL EXAMINATION: HEAD, EYES, EARS, NOSE, AND THROAT: Head: Atraumatic and normal. NECK: Supple. No resistance to motion. Orally intubated. LUNGS: Clear bilaterally with good air entry and no wheezes or crackles. HEART: Normal S1-S2, tachycardia, no murmur or rub, neck veins are full. ABDOMEN: Soft, nontender, nondistended, no guarding, bowel sounds few. EXTREMITIES: Warm, well-perfused, foot and wrist pulses intact. NEUROLOGIC: Pupils are 2 mm and nonreactive. Doll's eyes are absent, deep tendon reflexes are absent at the knee and ankle. No clonus, + withdrawal to stimulation, cough reflex weak. A/P Assessment and Plan ASSESSMENT: 1. Acute subarachnoid hemorrhage, left middle cerebral artery aneurysm. 2. Respiratory failure. 3. Malignant hypertension. 4. Hypokalemia. 5. History of hypertension. 6. Acute encephalopathy. 7. Lactic acidosis. 8. History of hypertension. 9. Acute encephalopathy. 10. Lactic acidosis. PLAN: CV: Levophed to keep SBP 130 - 160 RESP: PRVC vent mode, adjsut vent rate to keep EtCO2 32 - 37. Nebs prn. Sputum culture. NEURO: Sedation to help control ICP. Mild hypervolemia using CVP to assist. Ventric drain. Keppra. Nimotop. : Rebollar required for hourly output. GI: NG to LIS. Start TFs and reglan. HEME: Serial Hgb. Transfuse to main O2 carrying capacity. ID: Culture for fevers. Sputum now. ENDO: SSI for euglycemia, avoid hypo. PX: Chemical DVT contraindicated. SCDs. Protonix. Overall impression: Severe left parenchymal bleed and ruptured aneurysm. Critically ill and prognosis guarded at best. Anticipate hospitalization > 2 weeks. Critical care 44 mins Jeffrey Chand MD Apr 12, 2016 08:19
[2016-04-12 09:03] LABS: SCAN/DIFF AUTO DIFF CONFIRMED
[2016-04-12] MEDS: METOCLOPRAMIDE HCL SYRUP 10 MG/10 ML UDC PO SCH ×2 (09:51→16:13)
--- NOTE | 2016-04-12 10:40 | HHI.NSPN ---
History Chief Complaint: status post coil l for aneurysm Interval History 04/12/16: Patient had an aneurysm coiled yesterday, intubated and sedated, ICP stable overnight Exam Results Vital Signs Date Time Temp Pulse Resp B/P Pulse Ox O2 Delivery O2 Flow Rate FiO2 04/12/16 07:51 100 40 04/12/16 06:00 64 04/12/16 04:00 97.2 14 159/74 04/11/16 12:30 Ventilator Intake and Output 04/11/16 04/11/16 04/12/16 08:00 16:00 00:00 Intake Total 845 ml Output Total 783 ml Balance 62 ml Physical Examination Intubated and sedated Course Her airway sounds 2/6 murmur Frequent cough response Slow disconjugate oculocephalics response with right eye deviated laterally. No eye opening. Pupils are 2 mm nonreactive to light. Moderate Flexion of upper extremities to deep pain. Spontaneous movement in her lower extremities. Abdomen soft with positive bowel sounds Lab, Micro, Other Results Laboratory Tests Test 04/11/16 04/11/16 04/11/16 04/11/16 12:30 13:06 13:15 20:44 White Blood Count 11.2 TH/MM3 Red Blood Count 4.02 MIL/MM3 Hemoglobin 7.9 GM/DL Hematocrit 26.2 % Mean Corpuscular Volume 65.1 FL Mean Corpuscular Hemoglobin 19.6 PG Mean Corpuscular Hemoglobin 30.1 % Concent Red Cell Distribution Width 22.1 % Platelet Count 279 TH/MM3 Mean Platelet Volume 9.1 FL Neutrophils (%) (Auto) % Lymphocytes (%) (Auto) % Monocytes (%) (Auto) % Eosinophils (%) (Auto) % Basophils (%) (Auto) % Neutrophils # (Auto) TH/MM3 Lymphocytes # (Auto) TH/MM3 Monocytes # (Auto) TH/MM3 Eosinophils # (Auto) TH/MM3 Basophils # (Auto) TH/MM3 CBC Comment AUTO DIFF Differential Total Cells 100 Counted Neutrophils % (Manual) 79 % Lymphocytes % 16 % Monocytes % 5 % Neutrophils # (Manual) 8.8 TH/MM3 Differential Comment FINAL DIFF MANUAL Platelet Estimate NORMAL Platelet Morphology Comment NORMAL Tear Drop Cells 1+ Ovalocytes 1+ Acanthocytes 1+ Keratocytes OCC Prothrombin Time 10.2 SEC Prothromb Time International 1.0 RATIO Ratio Activated Partial 22.6 SEC Thromboplast Time Sodium Level 140 MEQ/L Potassium Level 2.6 MEQ/L Chloride Level 106 MEQ/L Carbon Dioxide Level 17.9 MEQ/L Anion Gap 16 MEQ/L Blood Urea Nitrogen 9 MG/DL Creatinine 1.36 MG/DL Estimat Glomerular Filtration 50 ML/MIN Rate Random Glucose 279 MG/DL Calcium Level 8.5 MG/DL Phosphorus Level 1.7 MG/DL Magnesium Level 2.2 MG/DL Total Bilirubin 0.4 MG/DL Direct Bilirubin 0.1 MG/DL Indirect Bilirubin 0.3 MG/DL Aspartate Amino Transf 43 U/L (AST/SGOT) Alanine Aminotransferase 21 U/L (ALT/SGPT) Alkaline Phosphatase 122 U/L Total Protein 8.0 GM/DL Albumin 3.7 GM/DL Ethyl Alcohol Level LESS THAN 3 MG/DL Blood Gas Puncture Site ART LINE ART LINE Blood Gas Patient Temperature 98.6 98.6 Blood Gas HCO3 20 mmol/L 21 mmol/L Blood Gas Base Excess -4.2 mmol/L -3.1 mmol/L Blood Gas Oxygen Saturation 98 % 98 % Arterial Blood pH 7.40 7.42 Arterial Blood Partial 33 mmHg 33 mmHg Pressure CO2 Arterial Blood Partial 372 mmHg 450 mmHg Pressure O2 Arterial Blood Oxygen Content 11.0 Vol % 10.2 Vol % Arterial Blood 1.5 % 1.4 % Carboxyhemoglobin Arterial Blood Methemoglobin 1.2 % 1.2 % Blood Gas Hemoglobin 7.3 G/DL 6.5 G/DL Oxygen Delivery Device VENT VENTILATOR Blood Gas Ventilator Setting PRVC/20RATE/500/5PEE PRVC/AC Blood Gas Inspired Oxygen 100 % 100 % Lactic Acid Level 4.9 mmol/L Test 04/11/16 04/11/16 04/11/16 04/11/16 21:33 21:35 22:11 23:20 Sodium Level 144 MEQ/L Potassium Level 3.6 MEQ/L Chloride Level 113 MEQ/L Carbon Dioxide Level 24.8 MEQ/L Anion Gap 6 MEQ/L Blood Urea Nitrogen 12 MG/DL Creatinine 1.02 MG/DL Estimat Glomerular Filtration 70 ML/MIN Rate Random Glucose 78 MG/DL Serum Osmolality 299 MOSM/KG Lactic Acid Level 1.4 mmol/L Calcium Level 7.7 MG/DL Urine Opiates Screen NEG Urine Barbiturates Screen NEG Urine Amphetamines Screen NEG Urine Benzodiazepines Screen POS Urine Cocaine Screen NEG Urine Cannabinoids Screen POS Hemoglobin 6.3 GM/DL Hematocrit 21.9 % Blood Type O POSITIVE Antibody Screen NEGATIVE Crossmatch Leukocyte-Reduced Red Blood Cells Blood Bank Comment Test 04/12/16 04/12/16 04:03 05:58 White Blood Count 15.3 TH/MM3 Red Blood Count 4.47 MIL/MM3 Hemoglobin 9.9 GM/DL Hematocrit 31.8 % Mean Corpuscular Volume 71.2 FL Mean Corpuscular Hemoglobin 22.1 PG Mean Corpuscular Hemoglobin 31.0 % Concent Red Cell Distribution Width 26.1 % Platelet Count 178 TH/MM3 Mean Platelet Volume 8.6 FL Neutrophils (%) (Auto) 83.8 % Lymphocytes (%) (Auto) 10.7 % Monocytes (%) (Auto) 5.1 % Eosinophils (%) (Auto) 0.1 % Basophils (%) (Auto) 0.3 % Neutrophils # (Auto) 12.8 TH/MM3 Lymphocytes # (Auto) 1.6 TH/MM3 Monocytes # (Auto) 0.8 TH/MM3 Eosinophils # (Auto) 0.0 TH/MM3 Basophils # (Auto) 0.1 TH/MM3 CBC Comment AUTO DIFF Differential Comment AUTO DIFF CONFIRMED Sodium Level 143 MEQ/L Potassium Level 4.3 MEQ/L Chloride Level 115 MEQ/L Carbon Dioxide Level 21.2 MEQ/L Anion Gap 7 MEQ/L Blood Urea Nitrogen 9 MG/DL Creatinine 0.72 MG/DL Estimat Glomerular Filtration 105 ML/MIN Rate Random Glucose 103 MG/DL Serum Osmolality 297 MOSM/KG Lactic Acid Level 1.1 mmol/L Calcium Level 7.3 MG/DL Protein Corrected Calcium 7.7 MG/DL Phosphorus Level 2.4 MG/DL Magnesium Level 1.8 MG/DL Total Bilirubin 0.7 MG/DL Aspartate Amino Transf 35 U/L (AST/SGOT) Alanine Aminotransferase 16 U/L (ALT/SGPT) Alkaline Phosphatase 89 U/L Total Protein 6.3 GM/DL Albumin 2.9 GM/DL Blood Gas Puncture Site ART LINE Blood Gas Patient Temperature 98.6 Blood Gas HCO3 19 mmol/L Blood Gas Base Excess -4.9 mmol/L Blood Gas Oxygen Saturation 97 % Arterial Blood pH 7.42 Arterial Blood Partial 30 mmHg Pressure CO2 Arterial Blood Partial 135 mmHg Pressure O2 Arterial Blood Oxygen Content 15.4 Vol % Arterial Blood 1.3 % Carboxyhemoglobin Arterial Blood Methemoglobin 1.1 % Blood Gas Hemoglobin 11.2 G/DL Oxygen Delivery Device VENTILATOR Blood Gas Ventilator Setting PRVC/AC Blood Gas Inspired Oxygen 40 % Medical Decision Making Impression and Plan Impression: 1. Neurologic exam mildly improved following endovascular coiling of ruptured cerebral aneurysm. ICPs, sodium, osmolarity satisfactory Plan: 1. Continue ventilatory support and sedation as needed for ventilator control. 2. Continue ventriculostomy 3. Nimodipine for vasospasm prophylaxis 4. Non-chemical DVT prophylaxis 5. Maintain systolic blood pressure 130-160 range 6. Follow-up CT angiogram 04/14/16 7. Continue monitor sodium level, keep 145-150 range 8. Seizure prophylaxis Sherwin Meléndez MD Apr 12, 2016 10:39
[2016-04-12 13:26] LABS: BLOOD GAS BASE EXCESS -3.9 mmol/L (-2-2); BLOOD GAS CARBOXYHEMOGLOBIN 1.4 % (0-4); BLOOD GAS HCO3 19 mmol/L (22-26); BLOOD GAS METHEMOGLOBIN 1.2 % (0-2); BLOOD GAS O2 HGB SATURATION 96 % (90-100); BLOOD GAS OXYGEN CONTENT 13.3 Vol % (12.0-20.0); BLOOD GAS PCO2 29 mmHg (38-42); BLOOD GAS PO2 107 mmHg (61-120); BLOOD GAS TOTAL HGB 9.8 G/DL (12.0-16.0); CRITICAL VALUE NO; OXYGEN DEVICE VENT; TEMP CORR TO 98.6
[2016-04-12 13:27] LABS: DRAW SITE ALINE; FIO2 40 %; STAT NO; VENT SETTINGS PRVC/12/500/5PEEP
--- NOTE | 2016-04-12 15:33 | EC ---
Study Study Date:04/12/2016 STUDY CONCLUSIONS SUMMARY - Left ventricle: The cavity size was normal. Wall thickness was increased in a pattern of severe LVH. Systolic function was vigorous. The estimated ejection fraction was in the range of 65% to 70%. Wall motion was normal; there were no regional wall motion abnormalities. Doppler parameters are consistent with abnormal left ventricular relaxation (grade 1 diastolic dysfunction). - Aortic valve: Trace regurgitation. Valve area: 2.03cm^2(VTI). Valve area: 2.13cm^2 (Vmax). - Mitral valve: Mild regurgitation. - Right ventricle: Systolic pressure was increased. - Tricuspid valve: Mild regurgitation. - Pulmonary arteries: PA peak pressure: 54mm Hg (S). Impressions: Severe LV concentric hypertrophy. HOCM No significant sub aortic gradient Evaluation for myoectomy or septal ablation may be necessay If LV function is below 40, please consider prescribing an ACEI or ARB or document rationale for non-use. PROCEDURE DATA STUDY STATUS: Elective. Procedure: Transthoracic echocardiography. Image quality was good. Scanning was performed from the parasternal, apical, and subcostal acoustic windows. Study completion: The patient tolerated the procedure well. Transthoracic echocardiography. M-mode, complete 2D, complete spectral Doppler, and color Doppler. Height: Height: 67in. Weight: Weight: 148.7lb. Body mass index: BMI: 23.3kg/m^2. Body surface area: BSA: 1.78m^2. Patient status: Inpatient. CARDIAC ANATOMY LEFT VENTRICLE: The cavity size was normal. Wall thickness was increased in a pattern of severe LVH. Systolic function was vigorous. The estimated ejection fraction was in the range of 65% to 70%. Wall motion was normal; there were no regional wall motion abnormalities. Doppler parameters are consistent with abnormal left ventricular relaxation (grade 1 diastolic dysfunction). AORTIC VALVE: Trileaflet; normal thickness leaflets. Doppler: Transvalvular velocity was within the normal range. There was no stenosis. Trace regurgitation. Valve area: 2.03cm^2(VTI). Indexed valve area: 1.14cm^2/m^2 (VTI). Valve area: 2.13cm^2 (Vmax). Indexed valve area: 1.2cm^2/m^2 (Vmax). Mean gradient: 11mm Hg (S). Peak gradient: 18mm Hg (S). AORTA: Aortic root: The aortic root was normal in size. MITRAL VALVE: Structurally normal valve. Doppler: Transvalvular velocity was within the normal range. There was no evidence for stenosis. Mild regurgitation. LEFT ATRIUM: The atrium was normal in size. RIGHT VENTRICLE: The cavity size was normal. Wall thickness was normal. Systolic pressure was increased. PULMONIC VALVE: Doppler: Transvalvular velocity was within the normal range. There was no evidence for stenosis. No regurgitation. TRICUSPID VALVE: Structurally normal valve. Doppler: Transvalvular velocity was within the normal range. Mild regurgitation. PULMONARY ARTERY: The main pulmonary artery was normal-sized. Systolic pressure was within the normal range. RIGHT ATRIUM: The atrium was normal in size. PERICARDIUM: There was no pericardial effusion. SYSTEMIC VEINS: Inferior vena cava: The vessel was normal in size. Patient weight: 148.7lb _Ejection fraction:_ 65-75% _Fractional shortening:_ 32% up to 5Kg 5-11.5Kg 11.6-22.9Kg 23-45Kg 45-57Kg Aortic Root 7-13 <17 13-22 17-27 17-27 LA diam 6-13 <23 24-38 33-47 37-40 RVID 10-17 7-15 7-15 7-18 8-17 LVIDd 12-22 <32 24-38 33-47 37-40 LVPW 2-4 3-6 5-7 6-8 7-8 IVS 2-4 3-6 5-7 6-8 7-8 BASIC MEASUREMENTS ADULT NORMAL Left ventricle LV internal dimension, ED, chordal *42.5 mm 43-52 level, PLAX LV internal dimension, ES, chordal 26.2 mm 23-38 level, PLAX Fractional shortening, chordal level, 38 % >29 PLAX LV posterior wall thickness, ED 24.6 mm IVS/LVPW ratio, ED 1.11 <1.3 Ventricular septum Septal thickness, ED 27.2 mm Aortic valve Leaflet separation 25 mm 15-26 Right ventricle RV internal dimension, ED, PLAX 21.7 mm 19-38 BASIC MEASUREMENTS ADULT NORMAL Aortic valve Leaflet separation 25 mm 15-26 Aorta Root diameter, ED *38 mm 20-37 Left atrium Anterior-posterior dimension, ES 23 mm 19-40 Anterior-posterior dimension index, ES 1.29 cm/m^2 <2.2 LA/aortic root ratio 0.61 DOPPLER MEASUREMENTS ADULT NORMAL Main pulmonary artery Pressure, S *54 mm Hg =30 Aortic valve Peak velocity, S 210 cm/s Mean velocity, S 154 cm/s VTI, S 45 cm Mean gradient, S 11 mm Hg Peak gradient, S 18 mm Hg Valve area, VTI 2.03 cm^2 Valve area index, VTI 1.14 cm^2/m^2 Valve area, Vmax 2.13 cm^2 Valve area index, Vmax 1.2 cm^2/m^2 Tricuspid valve Regurgitant peak velocity 332 cm/s Peak RV-RA gradient, S 44 mm Hg Systemic veins Estimated CVP 10 mm Hg Right ventricle RV pressure, S *54 mm Hg <30 LEGEND: Mean values are shown as u=mean value. Asterisk (*) griggs values outside specified normal range. Prepared and signed by Mckenna Lujan [id number]
[2016-04-12] MEDS: fentaNYL DRIP 250 ML IV SCH (16:27)
[2016-04-12] MEDS ORDERED: SODIUM CHLORIDE 23.4% INJ 240 MEQ in SYRINGE/BAG 1 EA IV ONE (17:45)
[2016-04-12] MEDS ORDERED: ALBUMIN HUMAN 5% 12.5 GM/250 ML BOTTLE IV ONE (23:30)
[2016-04-12] MEDS ORDERED: SODIUM CHLORID 0.9% 500 ML INJ 500 ML IV ONE (23:30)
[2016-04-13] VITALS (22 sets, daily range): BP systolic 111–174; BP diastolic 60–75; PULSE 59–98; RESP 14–16; TEMP 98.2–99.1; O2SAT 94–100
[2016-04-13 00:07] LABS: BICARBONATE 21.3 MEQ/L (21.0-32.0); MAGNESIUM 2.2 MG/DL (1.5-2.5); POTASSIUM 4.3 MEQ/L (3.5-5.1)
[2016-04-13 00:33] LABS: CALCIUM-PROTEIN CORRECTED 7.8 MG/DL (8.5-10.1)
[2016-04-13] MEDS: METOCLOPRAMIDE HCL SYRUP 10 MG/10 ML UDC PO SCH ×3 (01:32→17:43)
[2016-04-13] MEDS: METOPROLOL TARTRATE 25 MG TAB PO SCH ×4 (02:00→20:00)
[2016-04-13] MEDS: niMODipine 30 MG CAP PO SCH ×5 (03:23→20:37)
[2016-04-13] MEDS: CHLORHEXIDINE GLUCONATE 2 % 1 PACK (2 CLOTHS) TOP SCH (03:24)
[2016-04-13 04:12] LABS: BLOOD GAS BASE EXCESS -5.9 mmol/L (-2-2); BLOOD GAS CARBOXYHEMOGLOBIN 1.3 % (0-4); BLOOD GAS HCO3 19 mmol/L (22-26); BLOOD GAS O2 HGB SATURATION 94 % (90-100); BLOOD GAS OXYGEN CONTENT 12.2 Vol % (12.0-20.0); BLOOD GAS PCO2 34 mmHg (38-42); BLOOD GAS PO2 86 mmHg (61-120); BLOOD GAS TOTAL HGB 9.1 G/DL (12.0-16.0); CRITICAL VALUE NO; OXYGEN DEVICE VENTILATOR; TEMP CORR TO 98.6
[2016-04-13 04:13] LABS: DRAW SITE ART LINE; FIO2 40 %; STAT NO; VENT SETTINGS PRVC/AC
[2016-04-13 04:21] LABS: BICARBONATE 20.7 MEQ/L (21.0-32.0); POTASSIUM 4.2 MEQ/L (3.5-5.1)
[2016-04-13 04:56] LABS: CALCIUM-PROTEIN CORRECTED 7.7 MG/DL (8.5-10.1)
[2016-04-13] MEDS: PROPOFOL 1000 MG/100 ML IV SCH ×6 (05:25→20:37)
[2016-04-13] MEDS: NS + KCL 20 MEQ INJ 1,000 ML IV SCH ×3 (05:25→21:30)
[2016-04-13] MEDS: fentaNYL DRIP 250 ML IV SCH ×2 (06:04→14:37)
[2016-04-13] MEDS: PANTOPRAZOLE SODIUM 40 MG VIAL IV SCH (08:08)
[2016-04-13] MEDS: levETIRAcetam 500MG PREMIX INJ 100 ML IV SCH ×2 (08:08→20:37)
[2016-04-13] MEDS: LACTULOSE SYRUP 20 GM/30 ML CUP PO SCH (08:08)
[2016-04-13] MEDS: NOREPINEPHRINE INJ 4 MG in SODIUM CHLOR 0.9% 250 ML INJ 250 ML IV SCH (08:23)
[2016-04-13] MEDS: SODIUM CHLORIDE 0.9% FLUSH 5 ML FLUSH IVF SCH ×2 (08:24→21:00)
--- NOTE | 2016-04-13 10:53 | HHI.NSPN ---
(Genna Madrid) History Chief Complaint: status post coil for aneurysm (Genna Madrid) Interval History 04/12/16: Patient had an aneurysm coiled yesterday, intubated and sedated, ICP stable overnight 04/13/16: Increased ICP overnight, improved after a 23% saline bolus (Genna Madrid) Exam Results Vital Signs Date Time Temp Pulse Resp B/P Pulse Ox O2 Delivery O2 Flow Rate FiO2 04/13/16 08:33 98 40 04/13/16 08:00 99.0 61 14 163/75 151/68 04/11/16 12:30 Ventilator Intake and Output 04/12/16 04/12/16 04/13/16 08:00 16:00 00:00 Intake Total 1863 ml 1596 ml 1469 ml Output Total 622 ml 1054 ml 271 ml Balance 1241 ml 542 ml 1198 ml (Genna Madrid) Physical Examination Intubated and sedated Frequent cough response Slow disconjugate oculocephalics response with right eye deviated laterally. No eye opening. Pupils are 2 mm nonreactive to light. No withdrawal x 4. ICP 18. CPP 90. EVD draining bloody CSF at 5cmH20. (Genna Madrid) Lab, Micro, Other Results Last Impressions Neck CTA 04/11/16 1151 Signed Impressions: Service Date/Time: Monday, April 11, 2016 12:01 - CONCLUSION: Negative for hemodynamically significant carotid stenosis. Ricardo Castellanos MD FACR Head CTA 04/11/16 1151 Signed Impressions: Service Date/Time: Monday, April 11, 2016 12:01 - CONCLUSION: Aneurysm as described above. The MCA aneurysm is probably the one that bled. Ricardo Castellanos MD FACR Head CT 04/11/16 0000 Signed Impressions: Service Date/Time: Monday, April 11, 2016 11:32 - CONCLUSION: 1. 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 2. Findings have been discussed with Dr. Benedict on today's date. Ricardo Castellanos MD FACR Chest X-Ray 04/11/16 0000 Signed Impressions: Service Date/Time: Monday, April 11, 2016 13:18 - CONCLUSION: Satisfactory line placement Fei Snyder MD Cerebral Arteriogram 04/11/16 0000 Signed Impressions: Service Date/Time: Monday, April 11, 2016 14:18 - CONCLUSION: 1. 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 This is the aneurysm felt responsible for the intracranial hemorrhage. 2. Small 4 mm left M1 segment aneurysm. Attempts at embolizing this aneurysm were unsuccessful due to the broad based nature of the aneurysm. Endovascular repair of this aneurysm could not be performed. Kennedy Thibodeaux Jr., MD Laboratory Tests Test 04/12/16 04/12/16 04/13/16 04/13/16 13:10 23:05 03:35 03:58 Blood Gas Puncture Site ROBERTO ART LINE Blood Gas Patient Temperature 98.6 98.6 Blood Gas HCO3 19 mmol/L 19 mmol/L Blood Gas Base Excess -3.9 mmol/L -5.9 mmol/L Blood Gas Oxygen Saturation 96 % 94 % Arterial Blood pH 7.45 7.36 Arterial Blood Partial 29 mmHg 34 mmHg Pressure CO2 Arterial Blood Partial 107 mmHg 86 mmHg Pressure O2 Arterial Blood Oxygen Content 13.3 Vol % 12.2 Vol % Arterial Blood 1.4 % 1.3 % Carboxyhemoglobin Arterial Blood Methemoglobin 1.2 % 1.0 % Blood Gas Hemoglobin 9.8 G/DL 9.1 G/DL Oxygen Delivery Device VENT VENTILATOR Blood Gas Ventilator Setting PRVC/12/500/5PEEP PRVC/AC Blood Gas Inspired Oxygen 40 % 40 % Lactic Acid Level 0.7 mmol/L 0.9 mmol/L Sodium Level 149 MEQ/L 150 MEQ/L Potassium Level 4.3 MEQ/L 4.2 MEQ/L Chloride Level 122 MEQ/L 125 MEQ/L Carbon Dioxide Level 21.3 MEQ/L 20.7 MEQ/L Anion Gap 6 MEQ/L 4 MEQ/L Blood Urea Nitrogen 10 MG/DL 11 MG/DL Creatinine 0.85 MG/DL 0.80 MG/DL Estimat Glomerular Filtration 86 ML/MIN 93 ML/MIN Rate Random Glucose 118 MG/DL 110 MG/DL Serum Osmolality 310 MOSM/KG 311 MOSM/KG Calcium Level 7.1 MG/DL 7.1 MG/DL Protein Corrected Calcium 7.8 MG/DL 7.7 MG/DL Phosphorus Level 2.2 MG/DL Magnesium Level 2.2 MG/DL Total Protein 5.8 GM/DL 5.9 GM/DL (Genna Madrid) Medical Decision Making Impression and Plan Impression: 1. S/P endovascular coiling of ruptured cerebral aneurysm. Plan: 1. Continue ventilatory support and sedation as needed for ventilator control. 2. Continue ventriculostomy at 5cmH20 3. Nimodipine for vasospasm prophylaxis 4. Non-chemical DVT prophylaxis 5. Maintain systolic blood pressure 130-160 range 6. Follow-up CT angiogram 04/14/16 7. Continue monitor sodium level, keep 145-150 range 8. Seizure prophylaxis Discussed with RN at bedside. (Genna Madrid) Genna Madrid Apr 13, 2016 10:53 Sherwin Meléndez MD Apr 13, 2016 19:58
[2016-04-13 11:36] LABS: BICARBONATE 21.5 MEQ/L (21.0-32.0); POTASSIUM 4.5 MEQ/L (3.5-5.1)
[2016-04-13 11:56] LABS: CALCIUM-PROTEIN CORRECTED 7.6 MG/DL (8.5-10.1)
--- NOTE | 2016-04-13 12:53 | HHI.CCPN ---
Subjective Remarks/Hospital Course SAH, unresponsive, malignant hypertension - This 46-year-old woman with a longstanding history of hypertension, was found unresponsive at her home and paramedics arrived to find her with shallow breathing and a Angelica coma scale of three. Systolic blood pressure was 290 and under bag mask ventilation. She was brought to the emergency department where she remained unresponsive and required endotracheal intubation, mechanical ventilation. A CT scan of the head showed a large left hemispheric intraparenchymal hemorrhage with subarachnoid blood as well. Subsequent evaluation confirmed a left middle cerebral artery aneurysm which appears to be the culprit lesion. She was brought immediately to the [facility] where we continued Cardene drip infusion for blood pressure control and placed arterial monitoring lines and central venous line. Electrolyte abnormalities were corrected, particularly severe hypokalemia. The ventilator was adjusted to maintain arterial CO2, between 35 and 40. She received Keppra loading intravenously and Nimotop through the nasogastric tube. Usual ICU monitoring was in place and arrangements were made, a ventriculostomy was placed, and transported expeditiously to interventional radiology where attempts will be made to coil the aneurysm. 04/12: Culprit (larger) aneurysm was coiled last evening. ICP acceptable with drainage bloody as expected. Withdraws 4 limbs to pain. 04/13: ICP starting to rise > 20, requiring vent manipulation, increased sedation, analgesia. Objective - Vital Signs Date Time Temp Pulse Resp B/P Pulse Ox O2 Delivery O2 Flow Rate FiO2 04/13/16 08:33 98 40 04/13/16 08:00 99.0 61 14 163/75 151/68 04/11/16 12:30 Ventilator Intake and Output 04/12/16 04/12/16 04/13/16 08:00 16:00 00:00 Intake Total 1863 ml 1596 ml 1469 ml Output Total 622 ml 1054 ml 271 ml Balance 1241 ml 542 ml 1198 ml Result Diagram: 04/12/16 0403 04/13/16 1030 Other Results Laboratory Tests Test 04/11/16 04/11/16 04/12/16 13:06 20:44 05:58 Blood Gas Puncture Site ART LINE ART LINE ART LINE Blood Gas Patient Temperature 98.6 98.6 98.6 Blood Gas HCO3 20 mmol/L 21 mmol/L 19 mmol/L (22-26) (22-26) (22-26) Blood Gas Base Excess -4.2 mmol/L -3.1 mmol/L -4.9 mmol/L (-2-2) (-2-2) (-2-2) Blood Gas Oxygen Saturation 98 % (90-100) 98 % (90-100) 97 % (90-100) Arterial Blood pH 7.40 7.42 7.42 (7.380-7.420) (7.380-7.420) (7.380-7.420) Arterial Blood Partial 33 mmHg (38-42) 33 mmHg (38-42) 30 mmHg (38-42) Pressure CO2 Arterial Blood Partial 372 mmHg 450 mmHg 135 mmHg Pressure O2 (61-120) (61-120) (61-120) Arterial Blood Oxygen Content 11.0 Vol % 10.2 Vol % 15.4 Vol % (12.0-20.0) (12.0-20.0) (12.0-20.0) Arterial Blood 1.5 % (0-4) 1.4 % (0-4) 1.3 % (0-4) Carboxyhemoglobin Arterial Blood Methemoglobin 1.2 % (0-2) 1.2 % (0-2) 1.1 % (0-2) Blood Gas Hemoglobin 7.3 G/DL 6.5 G/DL 11.2 G/DL (12.0-16.0) (12.0-16.0) (12.0-16.0) Oxygen Delivery Device VENT VENTILATOR VENTILATOR Blood Gas Ventilator Setting PRVC/20RATE/500/5PEE PRVC/AC PRVC/AC Blood Gas Inspired Oxygen 100 % 100 % 40 % Objective Remarks PHYSICAL EXAMINATION: HEAD, EYES, EARS, NOSE, AND THROAT: Head: Atraumatic and normal. NECK: Supple. No resistance to motion. Orally intubated. LUNGS: Clear, no wheezes or crackles. HEART: Normal S1-S2, tachycardia, no murmur or rub, neck veins are distended. ABDOMEN: Soft, nontender, nondistended, no guarding, bowel sounds present. EXTREMITIES: Warm, well-perfused, foot and wrist pulses intact. NEUROLOGIC: Pupils are 2 mm and nonreactive. No clonus, + withdrawal to stimulation, cough reflex weak. A/P Assessment and Plan ASSESSMENT: 1. Acute subarachnoid hemorrhage, left middle cerebral artery aneurysm. 2. Respiratory failure. 3. Malignant hypertension. 4. Hypokalemia. 5. History of hypertension. 6. Acute encephalopathy. 7. Lactic acidosis. 8. History of hypertension. 9. Acute encephalopathy. 10. Lactic acidosis. 11. Elevated Intracranial Pressure. PLAN: CV: Levophed to keep SBP 130 - 160. Maintain preload, follow CVP. RESP: PRVC vent mode, adjust vent rate to keep EtCO2 32 - 37. Nebs prn. Sputum culture obtained. NEURO: Sedation/analgesia to help control ICP. Mild hypervolemia using CVP. Ventric drain. Keppra. Nimotop. : Rebollar required for hourly output. GI: NG to LIS. Start TFs and reglan. HEME: Serial Hgb. Transfuse to main O2 carrying capacity. ID: Culture for fevers. Sputum now. ENDO: SSI for euglycemia, avoid hypo. PX: Chemical DVT contraindicated. SCDs. Protonix. Overall impression: Severe SAH and left parenchymal bleed and ruptured aneurysm. Now developing problems with cerebral edema. Remains critically ill and prognosis guarded at best. Anticipate hospitalization > 2 weeks. Critical care 38 mins Jeffrey Chand MD Apr 13, 2016 12:53
[2016-04-13] MEDS ORDERED: SODIUM CHLORIDE 23.4% INJ 240 MEQ in SYRINGE/BAG 1 EA IV ONE (13:00)
[2016-04-13] MEDS ORDERED: MIDAZOLAM HCL 5 MG/ML VIAL (1 ML) IV ONE (13:00)
[2016-04-13] MEDS: MIDAZOLAM 100 MG/ML INJ 100 ML IV SCH ×2 (15:26→21:30)
[2016-04-13] MEDS ORDERED: FUROSEMIDE 20 MG/2 ML VIAL IV PUSH ONE (15:45)
[2016-04-13 16:46] LABS: MAGNESIUM 2.4 MG/DL (1.5-2.5)
[2016-04-13 16:46] LABS: BLOOD GAS BASE EXCESS -6.5 mmol/L (-2-2); BLOOD GAS CARBOXYHEMOGLOBIN 1.3 % (0-4); BLOOD GAS HCO3 19 mmol/L (22-26); BLOOD GAS METHEMOGLOBIN 1.1 % (0-2); BLOOD GAS O2 HGB SATURATION 92 % (90-100); BLOOD GAS OXYGEN CONTENT 10.8 Vol % (12.0-20.0); BLOOD GAS PCO2 40 mmHg (38-42); BLOOD GAS PO2 75 mmHg (61-120); BLOOD GAS TOTAL HGB 8.3 G/DL (12.0-16.0); CRITICAL VALUE NO; TEMP CORR TO 98.6
[2016-04-13 16:47] LABS: DRAW SITE ALINE; FIO2 45 %; OXYGEN DEVICE VENT; STAT NO; VENT SETTINGS PRVC/14/550/10PEEP
[2016-04-13] MEDS: SODIUM PHOSPHATE INJ 30 MMOL in SODIUM CHLOR 0.9% 250 ML INJ 240 ML IV PRN (17:09)
[2016-04-13 17:21] LABS: BICARBONATE 21.9 MEQ/L (21.0-32.0); POTASSIUM 4.7 MEQ/L (3.5-5.1)
[2016-04-13 17:46] LABS: CALCIUM-PROTEIN CORRECTED 7.6 MG/DL (8.5-10.1)
[2016-04-13] MEDS: RESP: ALBUTEROL 2.5 MG/IPRATROPIUM 0.5 MG NEB (PRN) INH (19:52)
[2016-04-14] VITALS (19 sets, daily range): BP systolic 144–173; BP diastolic 65–84; PULSE 47–67; RESP 16–18; TEMP 94.8–98.7; O2SAT 93–100
[2016-04-14] MEDS: niMODipine 30 MG CAP PO SCH ×7 (00:25→23:50)
[2016-04-14] MEDS: METOCLOPRAMIDE HCL SYRUP 10 MG/10 ML UDC PO SCH ×3 (00:27→15:30)
[2016-04-14 00:56] LABS: BICARBONATE 21.8 MEQ/L (21.0-32.0); POTASSIUM 4.2 MEQ/L (3.5-5.1)
[2016-04-14 01:15] LABS: CALCIUM-PROTEIN CORRECTED 8.1 MG/DL (8.5-10.1)
[2016-04-14 01:41] LABS: BLOOD GAS BASE EXCESS -6.4 mmol/L (-2-2); BLOOD GAS CARBOXYHEMOGLOBIN 1.2 % (0-4); BLOOD GAS HCO3 18 mmol/L (22-26); BLOOD GAS O2 HGB SATURATION 95 % (90-100); BLOOD GAS OXYGEN CONTENT 12.5 Vol % (12.0-20.0); BLOOD GAS PCO2 36 mmHg (38-42); BLOOD GAS PO2 93 mmHg (61-120); BLOOD GAS TOTAL HGB 9.3 G/DL (12.0-16.0); CRITICAL VALUE NO; OXYGEN DEVICE VENTILATOR; TEMP CORR TO 98.6
[2016-04-14 01:42] LABS: DRAW SITE ART LINE; FIO2 40 %; VENT SETTINGS PRVC/AC
[2016-04-14] MEDS: METOPROLOL TARTRATE 25 MG TAB PO SCH ×4 (01:52→20:00)
[2016-04-14] MEDS: CHLORHEXIDINE GLUCONATE 2 % 1 PACK (2 CLOTHS) TOP SCH (04:00)
[2016-04-14 04:29] LABS: MAGNESIUM 2.2 MG/DL (1.5-2.5)
[2016-04-14] MEDS: PROPOFOL 1000 MG/100 ML IV SCH ×4 (05:04→18:30)
[2016-04-14] MEDS: fentaNYL DRIP 250 ML IV SCH ×3 (05:13→15:29)
[2016-04-14] MEDS: SODIUM PHOSPHATE INJ 30 MMOL in SODIUM CHLOR 0.9% 250 ML INJ 240 ML IV PRN (06:47)
[2016-04-14] MEDS: MIDAZOLAM 100 MG/ML INJ 100 ML IV SCH ×2 (08:38→15:29)
[2016-04-14] MEDS: levETIRAcetam 500MG PREMIX INJ 100 ML IV SCH ×2 (08:38→20:53)
[2016-04-14] MEDS: NS + KCL 20 MEQ INJ 1,000 ML IV SCH ×2 (08:39→15:28)
[2016-04-14] MEDS: LACTULOSE SYRUP 20 GM/30 ML CUP PO SCH ×2 (08:39→17:25)
[2016-04-14] MEDS: PANTOPRAZOLE SODIUM 40 MG VIAL IV SCH (08:40)
[2016-04-14] MEDS: SODIUM CHLORIDE 0.9% FLUSH 5 ML FLUSH IVF SCH ×2 (08:41→21:00)
[2016-04-14 10:56] LABS: BICARBONATE 19.9 MEQ/L (21.0-32.0)
[2016-04-14 11:44] LABS: AUTOMATED NEUTROPHIL # 8.9 TH/MM3 (1.8-7.7); BASOPHIL # 0.1 TH/MM3 (0-0.2); BASOPHIL % 0.6 % (0.0-2.0); EOSINOPHIL # 0.2 TH/MM3 (0-0.4); EOSINOPHIL % 1.6 % (0.0-4.0); LYMPH % 13.2 % (9.0-44.0); LYMPHOCYTE # 1.5 TH/MM3 (1.0-4.8); MEAN CELL VOLUME 73.6 FL (80.0-100.0); MEAN CORPUSCULAR HEMOGLOBIN 22.6 PG (27.0-34.0); MEAN CORPUSCULAR HGB CONC 30.7 % (32.0-36.0); MONO % 4.8 % (0.0-8.0); NEUT % 79.8 % (16.0-70.0); PLATELET COUNT 158 TH/MM3 (150-450); RED BLOOD COUNT 3.53 MIL/MM3 (4.00-5.30); RED CELL DISTRIBUTION WIDTH 26.4 % (11.6-17.2); WHITE BLOOD COUNT 11.1 TH/MM3 (4.0-11.0)
[2016-04-14 11:47] LABS: HEMO FLAGS AUTO DIFF
[2016-04-14 12:09] LABS: ACANTHOCYTES OCC (NORMAL); KERATOCYTES OCC (NORMAL); OVALOCYTES 1+ (NORMAL); SCAN/DIFF AUTO DIFF CONFIRMED
--- NOTE | 2016-04-14 12:11 | HHI.NSPN ---
(Genna Madrid) History Chief Complaint: status post coil for aneurysm (Genna Madrid) Interval History 04/12/16: Patient had an aneurysm coiled yesterday, intubated and sedated, ICP stable overnight 04/13/16: Increased ICP overnight, improved after a 23% saline bolus 04/14/16: ICP stable overnight (Genna Madrid) Exam Results Vital Signs Date Time Temp Pulse Resp B/P Pulse Ox O2 Delivery O2 Flow Rate FiO2 04/14/16 11:19 98 40 04/14/16 10:00 48 04/14/16 08:00 95.8 16 160/82 04/11/16 12:30 Ventilator Intake and Output 04/13/16 04/13/16 04/14/16 08:00 16:00 00:00 Intake Total 1955 ml 1559 ml 1894 ml Output Total 264 ml 201 ml 1145 ml Balance 1691 ml 1358 ml 749 ml (Genna Madrid) Physical Examination Intubated and sedated. Intact cough and gag reflex. No spontaneous eye opening. Absent disconjugate oculocephalics. Pupils are 2 mm nonreactive to light. No withdrawal x 4. ICP 15. CPP 90. EVD draining bloody CSF at 5cmH20. (Genna Madrid) Lab, Micro, Other Results Last Impressions Neck CTA 04/11/16 1151 Signed Impressions: Service Date/Time: Monday, April 11, 2016 12:01 - CONCLUSION: Negative for hemodynamically significant carotid stenosis. Ricardo Castellanos MD FACR Head CTA 04/11/16 1151 Signed Impressions: Service Date/Time: Monday, April 11, 2016 12:01 - CONCLUSION: Aneurysm as described above. The MCA aneurysm is probably the one that bled. Ricardo Castellanos MD FACR Head CT 04/11/16 0000 Signed Impressions: Service Date/Time: Monday, April 11, 2016 11:32 - CONCLUSION: 1. 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 2. Findings have been discussed with Dr. Benedict on today's date. Ricardo Castellanos MD FACR Chest X-Ray 04/11/16 0000 Signed Impressions: Service Date/Time: Monday, April 11, 2016 13:18 - CONCLUSION: Satisfactory line placement Fei Snyder MD Cerebral Arteriogram 04/11/16 0000 Signed Impressions: Service Date/Time: Monday, April 11, 2016 14:18 - CONCLUSION: 1. 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 This is the aneurysm felt responsible for the intracranial hemorrhage. 2. Small 4 mm left M1 segment aneurysm. Attempts at embolizing this aneurysm were unsuccessful due to the broad based nature of the aneurysm. Endovascular repair of this aneurysm could not be performed. Kennedy Thibodeaux Jr., MD Laboratory Tests Test 04/13/16 04/13/16 04/14/16 04/14/16 16:05 16:34 00:00 01:27 Sodium Level 156 MEQ/L 155 MEQ/L Potassium Level 4.7 MEQ/L 4.2 MEQ/L Chloride Level 132 MEQ/L 129 MEQ/L Carbon Dioxide Level 21.9 MEQ/L 21.8 MEQ/L Anion Gap 2 MEQ/L 4 MEQ/L Blood Urea Nitrogen 13 MG/DL 12 MG/DL Creatinine 0.84 MG/DL 0.77 MG/DL Estimat Glomerular Filtration 88 ML/MIN 97 ML/MIN Rate Random Glucose 127 MG/DL 104 MG/DL Serum Osmolality 325 MOSM/KG Lactic Acid Level 1.0 mmol/L 0.6 mmol/L Calcium Level 7.2 MG/DL 7.2 MG/DL Protein Corrected Calcium 7.6 MG/DL 8.1 MG/DL Phosphorus Level 1.1 MG/DL Magnesium Level 2.4 MG/DL Total Protein 6.3 GM/DL 5.5 GM/DL Blood Gas Puncture Site ROBERTO ART LINE Blood Gas Patient Temperature 98.6 98.6 Blood Gas HCO3 19 mmol/L 18 mmol/L Blood Gas Base Excess -6.5 mmol/L -6.4 mmol/L Blood Gas Oxygen Saturation 92 % 95 % Arterial Blood pH 7.30 7.33 Arterial Blood Partial 40 mmHg 36 mmHg Pressure CO2 Arterial Blood Partial 75 mmHg 93 mmHg Pressure O2 Arterial Blood Oxygen Content 10.8 Vol % 12.5 Vol % Arterial Blood 1.3 % 1.2 % Carboxyhemoglobin Arterial Blood Methemoglobin 1.1 % 1.0 % Blood Gas Hemoglobin 8.3 G/DL 9.3 G/DL Oxygen Delivery Device VENT VENTILATOR Blood Gas Ventilator Setting [facility]/14/550/10PEEP [facility]/ Blood Gas Inspired Oxygen 45 % 40 % Test 04/14/16 04/14/16 04/14/16 02:00 03:45 10:00 Serum Osmolality 323 MOSM/KG 323 MOSM/KG Phosphorus Level 1.7 MG/DL Magnesium Level 2.2 MG/DL White Blood Count 11.1 TH/MM3 Red Blood Count 3.53 MIL/MM3 Hemoglobin 8.0 GM/DL Hematocrit 26.0 % Mean Corpuscular Volume 73.6 FL Mean Corpuscular Hemoglobin 22.6 PG Mean Corpuscular Hemoglobin 30.7 % Concent Red Cell Distribution Width 26.4 % Platelet Count 158 TH/MM3 Mean Platelet Volume 8.8 FL Neutrophils (%) (Auto) 79.8 % Lymphocytes (%) (Auto) 13.2 % Monocytes (%) (Auto) 4.8 % Eosinophils (%) (Auto) 1.6 % Basophils (%) (Auto) 0.6 % Neutrophils # (Auto) 8.9 TH/MM3 Lymphocytes # (Auto) 1.5 TH/MM3 Monocytes # (Auto) 0.5 TH/MM3 Eosinophils # (Auto) 0.2 TH/MM3 Basophils # (Auto) 0.1 TH/MM3 CBC Comment AUTO DIFF Sodium Level 156 MEQ/L Potassium Level 4.0 MEQ/L Chloride Level 130 MEQ/L Carbon Dioxide Level 19.9 MEQ/L Anion Gap 6 MEQ/L Blood Urea Nitrogen 12 MG/DL Creatinine 0.61 MG/DL Estimat Glomerular Filtration 127 ML/MIN Rate Random Glucose 90 MG/DL Lactic Acid Level 0.6 mmol/L Calcium Level 7.7 MG/DL (Genna Madrid) Medical Decision Making Impression and Plan Impression: 1. S/P endovascular coiling of ruptured cerebral aneurysm. Plan: Continue ventilatory support and sedation as needed for ventilator control. Maintain ventriculostomy at 5cmH20 Nimodipine for vasospasm prophylaxis Non-chemical DVT prophylaxis Maintain systolic blood pressure 130-160 range Follow-up CT angiogram 04/14/16 pending Continue monitor sodium level, keep 145-150 range Seizure prophylaxis Discussed with RN at bedside. (Genna Madrid) Attending Statement I have personally seen and examined the patient on the date of this note. Pertinent documentation and study results have been reviewed by the undersigned. I have personally developed the treatment plan and performed medical decision making. Agree with findings, exam, and treatment plan as noted above. Findings were discussed at bedside with the patient's family today. ICP has been intermittently moderately elevated today. Follow-up CT angiogram pending. Discussed with automobile accessories installer today (Sherwin Meléndez MD) Genna Madrid Apr 14, 2016 12:11 Sherwin Meléndez MD Apr 14, 2016 19:26
[2016-04-14] MEDS ORDERED: ROCURONIUM INJ 50 MG/5 ML VIAL IV ONE (15:15)
--- NOTE | 2016-04-14 15:22 | HHI.CCPN ---
Subjective Remarks/Hospital Course SAH, unresponsive, malignant hypertension - This 46-year-old woman with a longstanding history of hypertension, was found unresponsive at her home and paramedics arrived to find her with shallow breathing and a Angelica coma scale of three. Systolic blood pressure was 290 and under bag mask ventilation. She was brought to the emergency department where she remained unresponsive and required endotracheal intubation, mechanical ventilation. A CT scan of the head showed a large left hemispheric intraparenchymal hemorrhage with subarachnoid blood as well. Subsequent evaluation confirmed a left middle cerebral artery aneurysm which appears to be the culprit lesion. She was brought immediately to the [facility] where we continued Cardene drip infusion for blood pressure control and placed arterial monitoring lines and central venous line. Electrolyte abnormalities were corrected, particularly severe hypokalemia. The ventilator was adjusted to maintain arterial CO2, between 35 and 40. She received Keppra loading intravenously and Nimotop through the nasogastric tube. Usual ICU monitoring was in place and arrangements were made, a ventriculostomy was placed, and transported expeditiously to interventional radiology where attempts will be made to coil the aneurysm. 04/12: Culprit (larger) aneurysm was coiled last evening. ICP acceptable with drainage bloody as expected. Withdraws 4 limbs to pain. 04/13: ICP starting to rise > 20, requiring vent manipulation, increased sedation, analgesia. 04/14: Intermittently ICP spiking >20, RR increased to 18, 50 mg of rocuronium 1. CT angiogram done today to rule out vasospasm Objective - Vital Signs Date Time Temp Pulse Resp B/P Pulse Ox O2 Delivery O2 Flow Rate FiO2 04/14/16 15:00 40 04/14/16 14:32 98 04/14/16 14:00 50 04/14/16 12:00 94.8 16 145/69 04/11/16 12:30 Ventilator Intake and Output 04/13/16 04/13/16 04/14/16 08:00 16:00 00:00 Intake Total 1955 ml 1559 ml 1894 ml Output Total 264 ml 201 ml 1145 ml Balance 1691 ml 1358 ml 749 ml Result Diagram: 04/14/16 1000 04/14/16 1000 Other Results Laboratory Tests Test 04/11/16 04/11/16 04/12/16 13:06 20:44 05:58 Blood Gas Puncture Site ART LINE ART LINE ART LINE Blood Gas Patient Temperature 98.6 98.6 98.6 Blood Gas HCO3 20 mmol/L 21 mmol/L 19 mmol/L (22-26) (22-26) (22-26) Blood Gas Base Excess -4.2 mmol/L -3.1 mmol/L -4.9 mmol/L (-2-2) (-2-2) (-2-2) Blood Gas Oxygen Saturation 98 % (90-100) 98 % (90-100) 97 % (90-100) Arterial Blood pH 7.40 7.42 7.42 (7.380-7.420) (7.380-7.420) (7.380-7.420) Arterial Blood Partial 33 mmHg (38-42) 33 mmHg (38-42) 30 mmHg (38-42) Pressure CO2 Arterial Blood Partial 372 mmHg 450 mmHg 135 mmHg Pressure O2 (61-120) (61-120) (61-120) Arterial Blood Oxygen Content 11.0 Vol % 10.2 Vol % 15.4 Vol % (12.0-20.0) (12.0-20.0) (12.0-20.0) Arterial Blood 1.5 % (0-4) 1.4 % (0-4) 1.3 % (0-4) Carboxyhemoglobin Arterial Blood Methemoglobin 1.2 % (0-2) 1.2 % (0-2) 1.1 % (0-2) Blood Gas Hemoglobin 7.3 G/DL 6.5 G/DL 11.2 G/DL (12.0-16.0) (12.0-16.0) (12.0-16.0) Oxygen Delivery Device VENT VENTILATOR VENTILATOR Blood Gas Ventilator Setting PRVC/20RATE/500/5PEE PRVC/AC PRVC/AC Blood Gas Inspired Oxygen 100 % 100 % 40 % Objective Remarks HEAD, EYES, EARS, NOSE, AND THROAT: Head: Atraumatic and normal. NECK: Supple. No resistance to motion. Orally intubated. LUNGS: Clear, no wheezes or crackles. HEART: Normal S1-S2, tachycardia, no murmur or rub, neck veins are distended. ABDOMEN: Soft, nontender, nondistended, no guarding, bowel sounds present. EXTREMITIES: Warm, well-perfused, foot and wrist pulses intact. NEUROLOGIC: Pupils 2 mm nonreactive. No withdrawal x 4. ICP 20-22 EVD draining bloody CSF at 5cmH20 A/P Assessment and Plan Acute subarachnoid hemorrhage, left middle cerebral artery aneurysm Acute respiratory failure on mechanical ventilation Malignant hypertension Intracranial hypertension Acute encephalopathy Status post coiling of MCA aneurysm Hypokalemia History of hypertension Lactic acidosis PLAN: NEURO: Sedation/analgesia to help control ICP. Mild hypervolemia using CVP. Ventric drain. Keppra. Nimotop. Single dose of Rocuronium 50 mgx1, increase RR to 18 CTA today to evaluate for vasospasm target SBP 180 for vasospasm prophylaxis. CV: target SBP 180 for vasospasm prophylaxis. Maintain preload, follow CVP. RESP: PRVC vent mode, adjust vent rate to keep EtCO2 30-35. Nebs prn. Vent bundle. No vent weaning due to high ICP : Rebollar required for hourly output. GI: Tolerating tube feeds, continue bowel regimen Increase lactulose to 30 ml q8 HEME: Serial Hgb. Transfuse to main O2 carrying capacity. ID: Culture for fevers. No cultures ENDO: SSI for euglycemia, avoid hypo. PX: Chemical DVT contraindicated. SCDs. Protonix. Overall impression: Severe SAH and left parenchymal bleed and ruptured aneurysm. Now developing problems with cerebral edema, elevated ICP. Remains critically ill and prognosis guarded at best. Anticipate hospitalization > 3weeks. Critical care 50 mins, d/w Mary Clayton MD Apr 14, 2016 15:21
[2016-04-14 16:12] LABS: BLOOD GAS BASE EXCESS -7.2 mmol/L (-2-2); BLOOD GAS CARBOXYHEMOGLOBIN 1.3 % (0-4); BLOOD GAS HCO3 18 mmol/L (22-26); BLOOD GAS O2 HGB SATURATION 92 % (90-100); BLOOD GAS OXYGEN CONTENT 10.6 Vol % (12.0-20.0); BLOOD GAS PCO2 35 mmHg (38-42); BLOOD GAS PO2 78 mmHg (61-120); BLOOD GAS TOTAL HGB 8.1 G/DL (12.0-16.0); TEMP CORR TO 98.6
[2016-04-14] MEDS ORDERED: SODIUM CHLORIDE 23.4% INJ 240 MEQ in SYRINGE/BAG 1 EA IV ONE (17:00)
[2016-04-14 17:15] LABS: CRITICAL VALUE NO; OXYGEN DEVICE VENTILATOR
[2016-04-14 17:16] LABS: DRAW SITE ART LINE; FIO2 40 %; NUMBER OF ARTERIAL PUNCTURES 0; STAT NO; ULNAR PULSE PRESENT; VENT SETTINGS PRVC18/550/1.0/PEEP5
[2016-04-14] MEDS ORDERED: CISATRACURIUM INJ 100 MG in SODIUM CHLOR 0.9% 250 ML INJ 240 ML IV SCH (18:15)
[2016-04-14] MEDS ORDERED: EPINEPHrine HCL (1:10,000) 1 MG/10 ML SYRINGE ONE (18:28)
[2016-04-14] MEDS ORDERED: LIDOCAINE HCL 2% 100 MG/5 ML SYRINGE ONE (18:28)
[2016-04-14] MEDS ORDERED: ATROPINE SULFATE 1 MG/10 ML SYRINGE ONE (18:28)
[2016-04-14] MEDS ORDERED: IOHEXOL 350 MG/ML 10 ML VIAL (for RAD DIAG) IV ONE (20:35)
--- NOTE | 2016-04-14 21:22 | RADRPT ---
EXAM DATE/TIME: 04/14/2016 18:58 [facility] COMPARISON: No previous studies available for comparison. INDICATIONS : Evaluate for vasospasm. IV CONTRAST: 100 cc Omnipaque 350 (iohexol) IV RADIATION DOSE: 37.22 CTDIvol (mGy) MEDICAL HISTORY : Hypertension. SURGICAL HISTORY : Tubal ligation. ENCOUNTER: Initial ACUITY: 1 day PAIN SCALE: Non-responsive LOCATION: cranial TECHNIQUE: Volumetric scanning was performed using a multi-row detector CT scanner. The data was post processed with a variety of visualization algorithms including full volume maximum intensity projection, multi -planar sliding thin slab reformation, curved planar reformation, and surface rendering techniques. Using automated exposure control and adjustment of the mA and/or kV according to patient size, radiat ion dose was kept as low as reasonably achievable to obtain optimal diagnostic quality images. FINDINGS: Implant with the prior exam there has been coil embolization of a saccular aneurysm involving the lef t. There is a small 4 mm left M1 segment there is stable. Left-sided intracranial hemorrhage is again noted. There is no significant change in vessel caliber compared with April 11. Right-sided ventric ulostomy present. No hydrocephalus. CONCLUSION: 1. Status post endovascular repair of left supraclinoid aneurysm. Left M1 segment aneurysm stable. Ve ssel caliber relatively stable since April 11 without significant vasospasm. Quinn Bateman MD on April 14, 2016 at 21:11 Board Certified Radiologist. This report was verified electronically.
[2016-04-14 22:27] LABS: MAGNESIUM 2.4 MG/DL (1.5-2.5); POTASSIUM 3.9 MEQ/L (3.5-5.1)
[2016-04-15] VITALS (14 sets, daily range): BP systolic 150–182; BP diastolic 70–85; PULSE 60–72; RESP 18; TEMP 97.7–99.2; O2SAT 95–100
[2016-04-15] MEDS: METOCLOPRAMIDE HCL SYRUP 10 MG/10 ML UDC PO SCH ×4 (00:26→23:15)
[2016-04-15] MEDS: LACTULOSE SYRUP 20 GM/30 ML CUP PO SCH ×4 (00:26→23:15)
[2016-04-15] MEDS: METOPROLOL TARTRATE 25 MG TAB PO SCH ×4 (00:27→20:00)
[2016-04-15] MEDS: PROPOFOL 1000 MG/100 ML IV SCH ×7 (00:54→23:14)
[2016-04-15] MEDS: NS + KCL 20 MEQ INJ 1,000 ML IV SCH ×3 (03:43→17:23)
[2016-04-15] MEDS: fentaNYL DRIP 250 ML IV SCH ×3 (03:44→23:51)
[2016-04-15] MEDS: niMODipine 30 MG CAP PO SCH ×6 (03:44→23:14)
[2016-04-15] MEDS: CHLORHEXIDINE GLUCONATE 2 % 1 PACK (2 CLOTHS) TOP SCH (03:44)
[2016-04-15 04:08] LABS: BLOOD GAS BASE EXCESS -5.3 mmol/L (-2-2); BLOOD GAS CARBOXYHEMOGLOBIN 1.3 % (0-4); BLOOD GAS HCO3 19 mmol/L (22-26); BLOOD GAS METHEMOGLOBIN 0.9 % (0-2); BLOOD GAS O2 HGB SATURATION 94 % (90-100); BLOOD GAS OXYGEN CONTENT 10.9 Vol % (12.0-20.0); BLOOD GAS PCO2 35 mmHg (38-42); BLOOD GAS PO2 83 mmHg (61-120); BLOOD GAS TOTAL HGB 8.2 G/DL (12.0-16.0); CRITICAL VALUE NO; DRAW SITE ART LINE; FIO2 40 %; OXYGEN DEVICE VENTILATOR; STAT NO; TEMP CORR TO 98.6; VENT SETTINGS PRVC/AC
[2016-04-15 05:24] LABS: AUTOMATED NEUTROPHIL # 11.4 TH/MM3 (1.8-7.7); BASOPHIL % 0.2 % (0.0-2.0); EOSINOPHIL # 0.1 TH/MM3 (0-0.4); LYMPH % 4.4 % (9.0-44.0); LYMPHOCYTE # 0.6 TH/MM3 (1.0-4.8); MEAN CELL VOLUME 72.9 FL (80.0-100.0); MEAN CORPUSCULAR HEMOGLOBIN 22.6 PG (27.0-34.0); MONO % 5.4 % (0.0-8.0); PLATELET COUNT 176 TH/MM3 (150-450); RED BLOOD COUNT 3.57 MIL/MM3 (4.00-5.30); RED CELL DISTRIBUTION WIDTH 26.3 % (11.6-17.2); WHITE BLOOD COUNT 12.8 TH/MM3 (4.0-11.0)
[2016-04-15 05:27] LABS: HEMO FLAGS AUTO DIFF
[2016-04-15 05:31] LABS: MAGNESIUM 2.1 MG/DL (1.5-2.5)
[2016-04-15 06:25] LABS: BLOOD UREA NITROGEN 8 MG/DL (7-18)
[2016-04-15 06:26] LABS: ALKALINE PHOSPHATASE 73 U/L (45-117); AST (GOT) 16 U/L (15-37); GLOMERULAR FILTRATION RATE 124 ML/MIN (>89)
[2016-04-15 06:27] LABS: ALT (GPT) 14 U/L (10-53); ANION GAP 7 MEQ/L (5-15); BICARBONATE 20.2 MEQ/L (21.0-32.0); CHLORIDE 131 MEQ/L (98-107); TOTAL BILIRUBIN ADULT 0.4 MG/DL (0.2-1.0)
--- NOTE | 2016-04-15 06:28 | RADRPT ---
EXAM DATE/TIME: 04/15/2016 05:40 [facility] COMPARISON: CHEST SINGLE AP, April 11, 2016, 13:18. INDICATIONS : Respiratory distress. MEDICAL HISTORY : None. SURGICAL HISTORY : None. ENCOUNTER: Subsequent ACUITY: 4 - 6 days PAIN SCORE: Non-responsive. LOCATION: Bilateral chest FINDINGS: ET tube, NG tube and left subclavian line are well placed. The heart size is borderline enlarged. The re is increased density at the mid and lower lungs bilaterally with silhouetting the hemidiaphragms. CONCLUSION: 1. Tubes and lines are well placed. 2. Bilateral areas of increased density representing some degree of consolidation or atelectasis and effusions. These have clearly worsened since the prior exam. 3. The cardiac silhouette appears more prominent on the current exam. Fei Lea MD on April 15, 2016 at 6:25 Board Certified Radiologist. This report was verified electronically.
[2016-04-15 06:35] LABS: SODIUM (NA) 158 MEQ/L (136-145)
--- NOTE | 2016-04-15 07:48 | HHI.CCPN ---
Subjective Remarks/Hospital Course SAH, unresponsive, malignant hypertension - This 46-year-old woman with a longstanding history of hypertension, was found unresponsive at her home and paramedics arrived to find her with shallow breathing and a Angelica coma scale of three. Systolic blood pressure was 290 and under bag mask ventilation. She was brought to the emergency department where she remained unresponsive and required endotracheal intubation, mechanical ventilation. A CT scan of the head showed a large left hemispheric intraparenchymal hemorrhage with subarachnoid blood as well. Subsequent evaluation confirmed a left middle cerebral artery aneurysm which appears to be the culprit lesion. She was brought immediately to the [facility] where we continued Cardene drip infusion for blood pressure control and placed arterial monitoring lines and central venous line. Electrolyte abnormalities were corrected, particularly severe hypokalemia. The ventilator was adjusted to maintain arterial CO2, between 35 and 40. She received Keppra loading intravenously and Nimotop through the nasogastric tube. Usual ICU monitoring was in place and arrangements were made, a ventriculostomy was placed, and transported expeditiously to interventional radiology where attempts will be made to coil the aneurysm. 04/12: Culprit (larger) aneurysm was coiled last evening. ICP acceptable with drainage bloody as expected. Withdraws 4 limbs to pain. 04/13: ICP starting to rise > 20, requiring vent manipulation, increased sedation, analgesia. 04/14: Intermittently ICP spiking >20, RR increased to 18, 50 mg of rocuronium 1. CT angiogram done today to rule out vasospasm 04/15: Remains heavily sedated for ICP control. Overall ICP control improved overnight-remained 12-14. Currently on propofol fentanyl and Versed. CT angiogram done yesterday 04/14/16 showed status post endovascular repair of left supraclinoid aneurysm, left M1 segment aneurysm stable no vasospasm. Objective - Vital Signs Date Time Temp Pulse Resp B/P Pulse Ox O2 Delivery O2 Flow Rate FiO2 04/15/16 04:23 99 40 04/15/16 04:00 97.7 61 18 169/79 04/11/16 12:30 Ventilator Intake and Output 04/14/16 04/14/16 04/15/16 08:00 16:00 00:00 Intake Total 1892 ml 2249 ml 1847 ml Output Total 625.0 ml 610.0 ml 665 ml Balance 1267.0 ml 1639.0 ml 1182 ml Result Diagram: 04/15/16 0500 04/15/16 0500 Other Results Laboratory Tests Test 04/11/16 04/11/16 04/12/16 13:06 20:44 05:58 Blood Gas Puncture Site ART LINE ART LINE ART LINE Blood Gas Patient Temperature 98.6 98.6 98.6 Blood Gas HCO3 20 mmol/L 21 mmol/L 19 mmol/L (22-26) (22-26) (22-26) Blood Gas Base Excess -4.2 mmol/L -3.1 mmol/L -4.9 mmol/L (-2-2) (-2-2) (-2-2) Blood Gas Oxygen Saturation 98 % (90-100) 98 % (90-100) 97 % (90-100) Arterial Blood pH 7.40 7.42 7.42 (7.380-7.420) (7.380-7.420) (7.380-7.420) Arterial Blood Partial 33 mmHg (38-42) 33 mmHg (38-42) 30 mmHg (38-42) Pressure CO2 Arterial Blood Partial 372 mmHg 450 mmHg 135 mmHg Pressure O2 (61-120) (61-120) (61-120) Arterial Blood Oxygen Content 11.0 Vol % 10.2 Vol % 15.4 Vol % (12.0-20.0) (12.0-20.0) (12.0-20.0) Arterial Blood 1.5 % (0-4) 1.4 % (0-4) 1.3 % (0-4) Carboxyhemoglobin Arterial Blood Methemoglobin 1.2 % (0-2) 1.2 % (0-2) 1.1 % (0-2) Blood Gas Hemoglobin 7.3 G/DL 6.5 G/DL 11.2 G/DL (12.0-16.0) (12.0-16.0) (12.0-16.0) Oxygen Delivery Device VENT VENTILATOR VENTILATOR Blood Gas Ventilator Setting PRVC/20RATE/500/5PEE PRVC/AC PRVC/AC Blood Gas Inspired Oxygen 100 % 100 % 40 % Objective Remarks Infusions Propofol Fentanyl Versed GEN: Middle-aged female who is intubated heavily sedated HEENT: Head: Atraumatic. EVD in place, 215 ml in 24 hours. Pupils 2mm nonreactive. Tongue swollen and protuberant NECK: Supple. No resistance to motion. Orally intubated. LUNGS: Clear, no wheezes or crackles. HEART: Normal S1-S2, tachycardia, no murmur or rub, neck veins are distended. ABDOMEN: Soft, nontender, nondistended, no guarding, bowel sounds present. EXTREMITIES: Warm, well-perfused, foot and wrist pulses intact. NEUROLOGIC: Pupils 2 mm nonreactive. No withdrawal x 4. ICP 12-14. EVD draining bloody CSF at 5cmH20 A/P Assessment and Plan Acute subarachnoid hemorrhage, left middle cerebral artery aneurysm Intracranial hypertension Acute respiratory failure on mechanical ventilation Malignant hypertension Acute encephalopathy Status post coiling of MCA aneurysm Hypokalemia History of hypertension Lactic acidosis PLAN: NEURO: Acute subarachnoid hemorrhage, left middle cerebral artery aneurysm Intracranial hypertension Acute encephalopathy Sedation/analgesia (Propofol, Versed and Fentanyl) to help control ICP. Mild hypervolemia using CVP. Continue Ventric drain. Keppra. Nimotop. Treat fever aggressively NM paralysis as needed CT angiogram done 04/14/16 showed status post endovascular repair of left supraclinoid aneurysm, left M1 segment aneurysm stable no vasospasm. Continue with hypervolemia and hypertension for vasospasm prevention target SBP 180 for vasospasm prophylaxis. CV: Uncontrolled HTN, now permissive Target SBP 180 for vasospasm prophylaxis. Maintain preload, follow CVP, for hypervolemia. RESP: Acute respiratory failure Possible HCAP PRVC vent mode, adjust vent rate to keep EtCO2 30-35. Nebs prn and scheduled. Vent bundle. No vent weaning due to high ICP, severe encephalopathy : Rebollar required for hourly output. GI: Increase tube feeds to goal as tolerated, continue bowel regimen Increase lactulose to 30 ml q8 No BM yet. Dulcolax suppository x 1, Mag citrate x1 HEME: Serial Hgb. Transfuse to main O2 carrying capacity. ID: Sepsis Probable HCAP Check sputum and blood cultures. Start Zosyn 4.5 GM IV q6. CXR bilateral infiltrates, with leukocytosis and brown sputum ENDO: SSI for euglycemia, avoid hypokalemia, hypo Mag PX: Chemical DVT contraindicated. SCDs. Protonix. Overall impression: Severe SAH and left parenchymal bleed and ruptured aneurysm. Now developing problems with cerebral edema, elevated ICP. Remains critically ill and prognosis guarded at best. Anticipate hospitalization > 3weeks. Critical care 50 mins, d/w Mary Clayton MD Apr 15, 2016 07:48
[2016-04-15 07:56] LABS: KERATOCYTES OCC (NORMAL); SCAN/DIFF AUTO DIFF CONFIRMED
[2016-04-15] MEDS: PIPERACIL-TAZO 4.5 GM PREMIX 100 ML IV SCH ×3 (08:46→19:47)
[2016-04-15] MEDS: PANTOPRAZOLE SODIUM 40 MG VIAL IV SCH (08:47)
[2016-04-15] MEDS: levETIRAcetam 500MG PREMIX INJ 100 ML IV SCH ×2 (08:47→19:46)
[2016-04-15] MEDS ORDERED: BISACODYL 10 MG SUPP RECTAL ONE (09:00)
[2016-04-15] MEDS ORDERED: MAGNESIUM CITRATE SOLN 300 ML BTL PO ONE (09:00)
[2016-04-15] MEDS: SODIUM CHLORIDE 0.9% FLUSH 5 ML FLUSH IVF SCH (09:00)
[2016-04-15] MEDS: RESP: ALBUTEROL 2.5 MG/IPRATROPIUM 0.5 MG NEB (SCH) NEB ×3 (09:21→20:05)
--- NOTE | 2016-04-15 09:58 | HHI.NSPN ---
(Genna Madrid) History Chief Complaint: status post coil for aneurysm (Genna Madrid) Interval History 04/12/16: Patient had an aneurysm coiled yesterday, intubated and sedated, ICP stable overnight 04/13/16: Increased ICP overnight, improved after a 23% saline bolus 04/14/16: ICP stable overnight 04/15/16: ICP stable, CTA stable no vasospasm (Genna Madrid) Exam Results Vital Signs Date Time Temp Pulse Resp B/P Pulse Ox O2 Delivery O2 Flow Rate FiO2 04/15/16 09:06 95 40 04/15/16 04:00 97.7 61 18 169/79 04/11/16 12:30 Ventilator Intake and Output 04/14/16 04/14/16 04/15/16 08:00 16:00 00:00 Intake Total 1892 ml 2249 ml 1847 ml Output Total 625.0 ml 610.0 ml 665 ml Balance 1267.0 ml 1639.0 ml 1182 ml (Genna Madrid) Physical Examination Intubated and sedated. Intact cough and gag reflex. No spontaneous eye opening. Absent disconjugate oculocephalics. Pupils are 2 mm slight. No withdrawal x 4. ICP 12. CPP 82. EVD draining bloody CSF at 5cmH20. (Genna Madrid) Lab, Micro, Other Results Last Impressions Chest X-Ray 04/15/16 0600 Signed Impressions: Service Date/Time: Friday, April 15, 2016 05:40 - CONCLUSION: 1. Tubes and lines are well placed. 2. Bilateral areas of increased density representing some degree of consolidation or atelectasis and effusions. These have clearly worsened since the prior exam. 3. The cardiac silhouette appears more prominent on the current exam. Fei Lea MD Head CTA 04/14/16 1724 Signed Impressions: Service Date/Time: Thursday, April 14, 2016 18:58 - CONCLUSION: 1. Status post endovascular repair of left supraclinoid aneurysm. Left M1 segment aneurysm stable. Vessel caliber relatively stable since April 11 without significant vasospasm. Quinn Bateman MD Neck CTA 04/11/16 1151 Signed Impressions: Service Date/Time: Monday, April 11, 2016 12:01 - CONCLUSION: Negative for hemodynamically significant carotid stenosis. Ricardo Castellanos MD FACR Head CT 04/11/16 0000 Signed Impressions: Service Date/Time: Monday, April 11, 2016 11:32 - CONCLUSION: 1. 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 2. Findings have been discussed with Dr. Benedict on today's date. Ricardo Castellanos MD FACR Cerebral Arteriogram 04/11/16 0000 Signed Impressions: Service Date/Time: Monday, April 11, 2016 14:18 - CONCLUSION: 1. 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 This is the aneurysm felt responsible for the intracranial hemorrhage. 2. Small 4 mm left M1 segment aneurysm. Attempts at embolizing this aneurysm were unsuccessful due to the broad based nature of the aneurysm. Endovascular repair of this aneurysm could not be performed. Kennedy Thibodeaux Jr., MD Laboratory Tests Test 04/14/16 04/14/16 04/14/16 04/15/16 10:00 16:04 17:00 03:55 White Blood Count 11.1 TH/MM3 Red Blood Count 3.53 MIL/MM3 Hemoglobin 8.0 GM/DL Hematocrit 26.0 % Mean Corpuscular Volume 73.6 FL Mean Corpuscular Hemoglobin 22.6 PG Mean Corpuscular Hemoglobin 30.7 % Concent Red Cell Distribution Width 26.4 % Platelet Count 158 TH/MM3 Mean Platelet Volume 8.8 FL Neutrophils (%) (Auto) 79.8 % Lymphocytes (%) (Auto) 13.2 % Monocytes (%) (Auto) 4.8 % Eosinophils (%) (Auto) 1.6 % Basophils (%) (Auto) 0.6 % Neutrophils # (Auto) 8.9 TH/MM3 Lymphocytes # (Auto) 1.5 TH/MM3 Monocytes # (Auto) 0.5 TH/MM3 Eosinophils # (Auto) 0.2 TH/MM3 Basophils # (Auto) 0.1 TH/MM3 CBC Comment AUTO DIFF Differential Total Cells Counted Differential Comment AUTO DIFF CONFIRMED Ovalocytes 1+ Acanthocytes OCC Keratocytes OCC Sodium Level 156 MEQ/L 155 MEQ/L Potassium Level 4.0 MEQ/L 3.9 MEQ/L Chloride Level 130 MEQ/L 129 MEQ/L Carbon Dioxide Level 19.9 MEQ/L 19.0 MEQ/L Anion Gap 6 MEQ/L 7 MEQ/L Blood Urea Nitrogen 12 MG/DL 10 MG/DL Creatinine 0.61 MG/DL 0.52 MG/DL Estimat Glomerular Filtration 127 ML/MIN 152 ML/MIN Rate Random Glucose 90 MG/DL 95 MG/DL Serum Osmolality 323 MOSM/KG 319 MOSM/KG Lactic Acid Level 0.6 mmol/L 0.6 mmol/L Calcium Level 7.7 MG/DL 8.0 MG/DL Blood Gas Puncture Site ART LINE ART LINE Blood Gas Patient Temperature 98.6 98.6 Blood Gas HCO3 18 mmol/L 19 mmol/L Blood Gas Base Excess -7.2 mmol/L -5.3 mmol/L Blood Gas Oxygen Saturation 92 % 94 % Arterial Blood pH 7.32 7.36 Arterial Blood Partial 35 mmHg 35 mmHg Pressure CO2 Arterial Blood Partial 78 mmHg 83 mmHg Pressure O2 Arterial Blood Oxygen Content 10.6 Vol % 10.9 Vol % Arterial Blood 1.3 % 1.3 % Carboxyhemoglobin Arterial Blood Methemoglobin 1.0 % 0.9 % Blood Gas Hemoglobin 8.1 G/DL 8.2 G/DL Oxygen Delivery Device VENTILATOR VENTILATOR Blood Gas Ventilator Setting PRVC18/550/1.0/PEEP5 PRVC/AC Blood Gas Inspired Oxygen 40 % 40 % Phosphorus Level 2.2 MG/DL Magnesium Level 2.4 MG/DL Test 04/15/16 05:00 White Blood Count 12.8 TH/MM3 Red Blood Count 3.57 MIL/MM3 Hemoglobin 8.1 GM/DL Hematocrit 26.0 % Mean Corpuscular Volume 72.9 FL Mean Corpuscular Hemoglobin 22.6 PG Mean Corpuscular Hemoglobin 31.0 % Concent Red Cell Distribution Width 26.3 % Platelet Count 176 TH/MM3 Mean Platelet Volume 9.1 FL Neutrophils (%) (Auto) 89.0 % Lymphocytes (%) (Auto) 4.4 % Monocytes (%) (Auto) 5.4 % Eosinophils (%) (Auto) 1.0 % Basophils (%) (Auto) 0.2 % Neutrophils # (Auto) 11.4 TH/MM3 Lymphocytes # (Auto) 0.6 TH/MM3 Monocytes # (Auto) 0.7 TH/MM3 Eosinophils # (Auto) 0.1 TH/MM3 Basophils # (Auto) 0.0 TH/MM3 CBC Comment AUTO DIFF Differential Comment AUTO DIFF CONFIRMED Keratocytes OCC Sodium Level 158 MEQ/L Potassium Level 4.0 MEQ/L Chloride Level 131 MEQ/L Carbon Dioxide Level 20.2 MEQ/L Anion Gap 7 MEQ/L Blood Urea Nitrogen 8 MG/DL Creatinine 0.62 MG/DL Estimat Glomerular Filtration 124 ML/MIN Rate Random Glucose 93 MG/DL Calcium Level 7.9 MG/DL Phosphorus Level 2.3 MG/DL Magnesium Level 2.1 MG/DL Total Bilirubin 0.4 MG/DL Aspartate Amino Transf 16 U/L (AST/SGOT) Alanine Aminotransferase 14 U/L (ALT/SGPT) Alkaline Phosphatase 73 U/L Total Protein 5.4 GM/DL Albumin 2.2 GM/DL (Genna Madrid) Medical Decision Making Impression and Plan Impression: 1. S/P endovascular coiling of ruptured cerebral aneurysm. Plan: Continue ventilatory support and sedation as needed for ventilator control. Maintain ventriculostomy at 5cmH20 Nimodipine for vasospasm prophylaxis Non-chemical DVT prophylaxis Maintain systolic blood pressure 160-180 range 04/14/16 Follow-up CT angiogram stable: Status post endovascular repair of left supraclinoid aneurysm. Left M1 segment aneurysm stable Continue monitor sodium level, keep 145-150 range Seizure prophylaxis Discussed with RN at bedside. (Genna Madrid) Attending Statement On the date of this note, the undersigned had a [id number] encounter with the patient. I personally examined the patient, obtained pertinent history, and reviewed the electronic medical record including pertinent laboratory results and imaging studies. I personally developed the treatment plan and perform medical decision making. All of the above was performed in the presence of the physician's support assistant, who has scribed my findings into the medical record as noted above. ICPs remain satisfactory. Ventriculostomy draining well. Anticipate need for continued ventilatory support over the next week. (Sherwin Meléndez MD) Genna Madrid Apr 15, 2016 09:58 Sherwin Meléndez MD Apr 15, 2016 17:01
[2016-04-15] MEDS ORDERED: ROCURONIUM INJ 50 MG/5 ML VIAL IV ONE (15:15)
--- NOTE | 2016-04-15 15:53 | PD.PROCEDR ---
Central Line Procedure REASON FOR PROCEDURE Central venous access PROCEDURE PERFORMED Central line placement: LIJ central line CONSENT Informed consent for procedure was obtained and time out performed ANESTHESIA Local injection of 1% Lidocaine DESCRIPTION OF THE PROCEDURE The patient was placed in supine, mild Trendelenburg position. The area was exposed and cleansed with ChloraPrep, times two. Large sterile drape was used to cover the patient, with the site exposed, under sterile conditions including cap, face mask, sterile gown, and sterile gloves. On single attempt, the introducer needle was inserted with negative pressure in syringe and venous flash was obtained. The guide wire was then advanced without any restriction and the needle was removed. The dilator was used without any complications. Using Seldinger technique the 20 CM triple lumen ABX coated catheter was advanced over the guide wire to a depth of 30 centimeters. The guide wire was removed. All ports were aspirated with dark venous blood return and flushed easily with sterile saline. All ports were capped. Antibiotic disc was placed around central line at puncture site. The central line was secured to the skin with two interrupted 2.0 silk sutures. The area was bandaged with sterile see- through central line bandage. RADIOLOGICAL DATA Ultrasound guidance was used to locate LIJ. Doppler/color flow was used to confirm venous flow. COMPLICATIONS: No apparent complications ESTIMATED BLOOD LOSS: Less than 1 cc. Mary Enamorado MD Apr 15, 2016 15:52
[2016-04-15] MEDS: MIDAZOLAM 100 MG/ML INJ 100 ML IV SCH (16:51)
[2016-04-15] MEDS ORDERED: CISATRACURIUM INJ 100 MG in SODIUM CHLOR 0.9% 250 ML INJ 240 ML IV SCH (18:30)
[2016-04-15] MEDS ORDERED: CISATRACURIUM BESYLATE 20 MG/10 ML VIAL IVP ONE (18:30)
[2016-04-15 21:50] LABS: MAGNESIUM 2.8 MG/DL (1.5-2.5)
[2016-04-16] VITALS (14 sets, daily range): BP systolic 136–193; BP diastolic 64–96; PULSE 55–69; RESP 20; TEMP 92.5–98.7; O2SAT 92–100
[2016-04-16] MEDS: MIDAZOLAM 100 MG/ML INJ 100 ML IV SCH ×3 (01:55→20:46)
[2016-04-16] MEDS: METOPROLOL TARTRATE 25 MG TAB PO SCH ×4 (02:00→20:46)
[2016-04-16] MEDS: PIPERACIL-TAZO 4.5 GM PREMIX 100 ML IV SCH ×4 (02:02→20:47)
[2016-04-16] MEDS: niMODipine 30 MG CAP PO SCH ×6 (03:27→23:17)
[2016-04-16] MEDS: CHLORHEXIDINE GLUCONATE 2 % 1 PACK (2 CLOTHS) TOP SCH (03:27)
[2016-04-16 03:30] LABS: AUTOMATED NEUTROPHIL # 10.1 TH/MM3 (1.8-7.7); BASOPHIL # 0.1 TH/MM3 (0-0.2); BASOPHIL % 0.5 % (0.0-2.0); EOSINOPHIL # 0.4 TH/MM3 (0-0.4); EOSINOPHIL % 3.1 % (0.0-4.0); LYMPH % 8.9 % (9.0-44.0); LYMPHOCYTE # 1.1 TH/MM3 (1.0-4.8); MEAN CELL VOLUME 72.4 FL (80.0-100.0); MEAN CORPUSCULAR HEMOGLOBIN 22.7 PG (27.0-34.0); MEAN CORPUSCULAR HGB CONC 31.4 % (32.0-36.0); MONO % 6.7 % (0.0-8.0); NEUT % 80.8 % (16.0-70.0); PLATELET COUNT 185 TH/MM3 (150-450); RED BLOOD COUNT 3.45 MIL/MM3 (4.00-5.30); RED CELL DISTRIBUTION WIDTH 27.4 % (11.6-17.2); WHITE BLOOD COUNT 12.6 TH/MM3 (4.0-11.0)
[2016-04-16 03:32] LABS: HEMO FLAGS AUTO DIFF
[2016-04-16] MEDS: RESP: ALBUTEROL 2.5 MG/IPRATROPIUM 0.5 MG NEB (SCH) NEB ×4 (03:43→20:08)
[2016-04-16] MEDS: PROPOFOL 1000 MG/100 ML IV SCH ×6 (03:55→20:49)
[2016-04-16 04:19] LABS: ALKALINE PHOSPHATASE 74 U/L (45-117); ALT (GPT) 12 U/L (10-53); ANION GAP 4 MEQ/L (5-15); AST (GOT) 16 U/L (15-37); BICARBONATE 23.7 MEQ/L (21.0-32.0); BLOOD UREA NITROGEN 10 MG/DL (7-18); CHLORIDE 128 MEQ/L (98-107); GLOMERULAR FILTRATION RATE 110 ML/MIN (>89); MAGNESIUM 2.6 MG/DL (1.5-2.5); TOTAL BILIRUBIN ADULT 0.5 MG/DL (0.2-1.0)
[2016-04-16 04:22] LABS: SODIUM (NA) 156 MEQ/L (136-145)
[2016-04-16] MEDS: CISATRACURIUM INJ 200 MG in SODIUM CHLORID 0.9% 500 ML INJ 480 ML IV SCH ×3 (04:57→20:45)
--- NOTE | 2016-04-16 05:32 | RADRPT ---
EXAM DATE/TIME: 04/16/2016 03:55 [facility] COMPARISON: CHEST SINGLE AP, April 15, 2016, 5:40. INDICATIONS : Follow up respiratory status. MEDICAL HISTORY : None. SURGICAL HISTORY : None. ENCOUNTER: Subsequent ACUITY: 3 days PAIN SCORE: Non-responsive. LOCATION: Bilateral chest FINDINGS: ET tube, NG tube and left subclavian line are well placed. The heart size is upper limits of normal. There is increased density at the bases bilaterally. CONCLUSION: Bibasilar areas of consolidation/atelectasis and possible effusion. There may be mild improvement on the left side. The right side appears unchanged. Fei Lea MD on April 16, 2016 at 5:29 Board Certified Radiologist. This report was verified electronically.
[2016-04-16 06:56] LABS: BANDS 17 % (0-6); EOSINOPHILS 3 % (0-4); POLYS (SEG NEUTROPHILS) 62 % (16-70); WBC DIFF SAMPLE 100
[2016-04-16 06:58] LABS: KERATOCYTES OCC (NORMAL); PLATELET ESTIMATE SMEAR NORMAL (NORMAL); PLATELET MORPHOLOGY NORMAL (NORMAL); SCAN/DIFF FINAL DIFF MANUAL
[2016-04-16] MEDS: PANTOPRAZOLE SODIUM 40 MG VIAL IV SCH (07:52)
[2016-04-16] MEDS: fentaNYL DRIP 250 ML IV SCH ×2 (07:52→18:29)
[2016-04-16] MEDS: levETIRAcetam 500MG PREMIX INJ 100 ML IV SCH ×2 (07:52→20:46)
[2016-04-16] MEDS: METOCLOPRAMIDE HCL SYRUP 10 MG/10 ML UDC PO SCH ×2 (09:00→17:00)
[2016-04-16] MEDS: SODIUM CHLORIDE 0.9% FLUSH 5 ML FLUSH IVF SCH ×2 (09:00→20:47)
[2016-04-16] MEDS: LACTULOSE SYRUP 20 GM/30 ML CUP PO SCH ×2 (09:00→17:00)
--- NOTE | 2016-04-16 09:37 | HHI.NSPN ---
(Genna Madrid) History Chief Complaint: status post coil for aneurysm (Genna Madrid) Interval History 04/12/16: Patient had an aneurysm coiled yesterday, intubated and sedated, ICP stable overnight 04/13/16: Increased ICP overnight, improved after a 23% saline bolus 04/14/16: ICP stable overnight 04/15/16: ICP stable, CTA stable no vasospasm 04/16/16: ICP slight increase overnight now stabilized, intubated and sedated ( Genna Madrid) Exam Results Vital Signs Date Time Temp Pulse Resp B/P Pulse Ox O2 Delivery O2 Flow Rate FiO2 04/16/16 08:29 70 04/16/16 07:53 98 04/16/16 04:00 98.4 69 20 176/87 Intake and Output 04/15/16 04/15/16 04/16/16 08:00 16:00 00:00 Intake Total 1579 ml 1781 ml 2055 ml Output Total 1090 ml 545 ml 695 ml Balance 489 ml 1236 ml 1360 ml (Genna Madrid) Physical Examination Intubated and sedated. Intact cough and gag reflex. No spontaneous eye opening. Absent disconjugate oculocephalics. Pupils are 2 mm slight. Right eye lateral gaze. No withdrawal x 4. ICP 13. CPP 87. EVD draining bloody CSF at 5cmH20. (Genna Madrid) Lab, Micro, Other Results Last Impressions Chest X-Ray 04/16/16 0600 Signed Impressions: Service Date/Time: Saturday, April 16, 2016 03:55 - CONCLUSION: Bibasilar areas of consolidation/atelectasis and possible effusion. There may be mild improvement on the left side. The right side appears unchanged. Fei Lea MD Head CTA 04/14/16 1724 Signed Impressions: Service Date/Time: Thursday, April 14, 2016 18:58 - CONCLUSION: 1. Status post endovascular repair of left supraclinoid aneurysm. Left M1 segment aneurysm stable. Vessel caliber relatively stable since April 11 without significant vasospasm. Quinn Bateman MD Neck CTA 04/11/16 1151 Signed Impressions: Service Date/Time: Monday, April 11, 2016 12:01 - CONCLUSION: Negative for hemodynamically significant carotid stenosis. Ricardo Catsellanos MD FACR Head CT 04/11/16 0000 Signed Impressions: Service Date/Time: Monday, April 11, 2016 11:32 - CONCLUSION: 1. 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 2. Findings have been discussed with Dr. Benedict on today's date. Ricardo Castellanos MD FACR Cerebral Arteriogram 04/11/16 0000 Signed Impressions: Service Date/Time: Monday, April 11, 2016 14:18 - CONCLUSION: 1. 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 This is the aneurysm felt responsible for the intracranial hemorrhage. 2. Small 4 mm left M1 segment aneurysm. Attempts at embolizing this aneurysm were unsuccessful due to the broad based nature of the aneurysm. Endovascular repair of this aneurysm could not be performed. Kennedy Thibodeaux Jr., MD Laboratory Tests Test 04/15/16 04/16/16 21:00 03:20 Phosphorus Level 2.2 MG/DL Magnesium Level 2.8 MG/DL 2.6 MG/DL White Blood Count 12.6 TH/MM3 Red Blood Count 3.45 MIL/MM3 Hemoglobin 7.9 GM/DL Hematocrit 25.0 % Mean Corpuscular Volume 72.4 FL Mean Corpuscular Hemoglobin 22.7 PG Mean Corpuscular Hemoglobin 31.4 % Concent Red Cell Distribution Width 27.4 % Platelet Count 185 TH/MM3 Mean Platelet Volume 8.6 FL Neutrophils (%) (Auto) 80.8 % Lymphocytes (%) (Auto) 8.9 % Monocytes (%) (Auto) 6.7 % Eosinophils (%) (Auto) 3.1 % Basophils (%) (Auto) 0.5 % Neutrophils # (Auto) 10.1 TH/MM3 Lymphocytes # (Auto) 1.1 TH/MM3 Monocytes # (Auto) 0.8 TH/MM3 Eosinophils # (Auto) 0.4 TH/MM3 Basophils # (Auto) 0.1 TH/MM3 CBC Comment AUTO DIFF Differential Total Cells 100 Counted Neutrophils % (Manual) 62 % Band Neutrophils % 17 % Lymphocytes % 13 % Monocytes % 5 % Eosinophils % 3 % Neutrophils # (Manual) 10.0 TH/MM3 Differential Comment FINAL DIFF MANUAL Platelet Estimate NORMAL Platelet Morphology Comment NORMAL Keratocytes OCC Sodium Level 156 MEQ/L Potassium Level 4.0 MEQ/L Chloride Level 128 MEQ/L Carbon Dioxide Level 23.7 MEQ/L Anion Gap 4 MEQ/L Blood Urea Nitrogen 10 MG/DL Creatinine 0.69 MG/DL Estimat Glomerular Filtration 110 ML/MIN Rate Random Glucose 108 MG/DL Calcium Level 8.1 MG/DL Total Bilirubin 0.5 MG/DL Aspartate Amino Transf 16 U/L (AST/SGOT) Alanine Aminotransferase 12 U/L (ALT/SGPT) Alkaline Phosphatase 74 U/L Total Protein 5.4 GM/DL Albumin 2.1 GM/DL (Genna Madrid) Medical Decision Making Impression and Plan Impression: 1. S/P endovascular coiling of ruptured cerebral aneurysm. Plan: Repeat HEAD CT and CTA planned for Saturday 04/21, pending results possible sedation vacation. Continue ventilatory support and sedation as needed for ventilator control. Maintain ventriculostomy at 5cmH20 Nimodipine for vasospasm prophylaxis Non-chemical DVT prophylaxis Maintain systolic blood pressure 160-180 range 04/14/16 Follow-up CT angiogram stable: Status post endovascular repair of left supraclinoid aneurysm. Left M1 segment aneurysm stable Continue monitor sodium level, keep 145-150 range Seizure prophylaxis Discussed with RN at bedside. (Genna Madrid) Attending Statement On the date of this note, the undersigned had a [id number] encounter with the patient. I personally examined the patient, obtained pertinent history, and reviewed the electronic medical record including pertinent laboratory results and imaging studies. I personally developed the treatment plan and perform medical decision making. All of the above was performed in the presence of the physician's case management assistant, who has scribed my findings into the medical record as noted above. The patient developed an episode of moderate increased intracranial pressure this afternoon. It was also elected to proceed with follow-up CT angiogram and CT scan of the head today. The CT angiogram does not reveal any significant vasospasm. The CT of the head reveals persistent diffuse edema with evolution of the left frontotemporal hemorrhage with secondary edema. Continuing ventriculostomy. Chest x-ray today shows bibasilar consolidation/atelectasis and possible effusion. Patient has been on 15 of pressure support, which may be increasing the ICP and edema, and will be decreased as tolerated based on her pulmonary status. ICP this evening is satisfactory, but if patient has persistent episodes of increased ICP, may require surgical intervention for decompressive craniotomy. ( Sherwin Meléndez MD) Genna Madrid Apr 16, 2016 09:37 Sherwin Meléndez MD Apr 16, 2016 19:57
[2016-04-16] MEDS: NS + KCL 20 MEQ INJ 1,000 ML IV SCH (11:31)
--- NOTE | 2016-04-16 15:23 | HHI.CCPN ---
Subjective Remarks/Hospital Course SAH, unresponsive, malignant hypertension - This 46-year-old woman with a longstanding history of hypertension, was found unresponsive at her home and paramedics arrived to find her with shallow breathing and a Angelica coma scale of three. Systolic blood pressure was 290 and under bag mask ventilation. She was brought to the emergency department where she remained unresponsive and required endotracheal intubation, mechanical ventilation. A CT scan of the head showed a large left hemispheric intraparenchymal hemorrhage with subarachnoid blood as well. Subsequent evaluation confirmed a left middle cerebral artery aneurysm which appears to be the culprit lesion. She was brought immediately to the [facility] where we continued Cardene drip infusion for blood pressure control and placed arterial monitoring lines and central venous line. Electrolyte abnormalities were corrected, particularly severe hypokalemia. The ventilator was adjusted to maintain arterial CO2, between 35 and 40. She received Keppra loading intravenously and Nimotop through the nasogastric tube. Usual ICU monitoring was in place and arrangements were made, a ventriculostomy was placed, and transported expeditiously to interventional radiology where attempts will be made to coil the aneurysm. 04/12: Culprit (larger) aneurysm was coiled last evening. ICP acceptable with drainage bloody as expected. Withdraws 4 limbs to pain. 04/13: ICP starting to rise > 20, requiring vent manipulation, increased sedation, analgesia. 04/14: Intermittently ICP spiking >20, RR increased to 18, 50 mg of rocuronium 1. CT angiogram done today to rule out vasospasm 04/15: Remains heavily sedated for ICP control. Overall ICP control improved overnight-remained 12-14. Currently on propofol fentanyl and Versed. CT angiogram done yesterday 04/14/16 showed status post endovascular repair of left supraclinoid aneurysm, left M1 segment aneurysm stable no vasospasm. 04/16: Remains hypoxemic, FiO2 had to be increased to 70%, now down to 60%. Chest x-ray shows increasing right lower lobe infiltrate sputum with gram- negative rods. Blood pressure remains at target Objective - Vital Signs Date Time Temp Pulse Resp B/P Pulse Ox O2 Delivery O2 Flow Rate FiO2 04/16/16 12:00 60 04/16/16 12:00 97.7 56 20 147/70 100 Intake and Output 04/15/16 04/15/16 04/16/16 08:00 16:00 00:00 Intake Total 1579 ml 1781 ml 2055 ml Output Total 1090 ml 545 ml 695 ml Balance 489 ml 1236 ml 1360 ml Result Diagram: 04/16/16 0320 04/16/16 0320 Other Results Laboratory Tests Test 04/11/16 04/11/16 04/12/16 13:06 20:44 05:58 Blood Gas Puncture Site ART LINE ART LINE ART LINE Blood Gas Patient Temperature 98.6 98.6 98.6 Blood Gas HCO3 20 mmol/L 21 mmol/L 19 mmol/L (22-26) (22-26) (22-26) Blood Gas Base Excess -4.2 mmol/L -3.1 mmol/L -4.9 mmol/L (-2-2) (-2-2) (-2-2) Blood Gas Oxygen Saturation 98 % (90-100) 98 % (90-100) 97 % (90-100) Arterial Blood pH 7.40 7.42 7.42 (7.380-7.420) (7.380-7.420) (7.380-7.420) Arterial Blood Partial 33 mmHg (38-42) 33 mmHg (38-42) 30 mmHg (38-42) Pressure CO2 Arterial Blood Partial 372 mmHg 450 mmHg 135 mmHg Pressure O2 (61-120) (61-120) (61-120) Arterial Blood Oxygen Content 11.0 Vol % 10.2 Vol % 15.4 Vol % (12.0-20.0) (12.0-20.0) (12.0-20.0) Arterial Blood 1.5 % (0-4) 1.4 % (0-4) 1.3 % (0-4) Carboxyhemoglobin Arterial Blood Methemoglobin 1.2 % (0-2) 1.2 % (0-2) 1.1 % (0-2) Blood Gas Hemoglobin 7.3 G/DL 6.5 G/DL 11.2 G/DL (12.0-16.0) (12.0-16.0) (12.0-16.0) Oxygen Delivery Device VENT VENTILATOR VENTILATOR Blood Gas Ventilator Setting PRVC/20RATE/500/5PEE PRVC/AC PRVC/AC Blood Gas Inspired Oxygen 100 % 100 % 40 % Objective Remarks Infusions Propofol Fentanyl Versed GEN: Middle-aged female who is intubated heavily sedated HEENT: Head: Atraumatic. EVD in place, 300 ml in 24 hours. Pupils 2mm nonreactive. Tongue swollen and protuberant NECK: Supple. No resistance to motion. Orally intubated. LUNGS: Clear, no wheezes or crackles. HEART: Normal S1-S2, tachycardia, no murmur or rub, neck veins are distended. ABDOMEN: Soft, nontender, nondistended, no guarding, bowel sounds present. EXTREMITIES: Warm, well-perfused, foot and wrist pulses intact. NEUROLOGIC: Pupils 2 mm nonreactive. No withdrawal x 4. ICP 16-20. EVD draining bloody CSF at 5cmH20 Urinary Catheter: Yes Assessment to: Continue Vascular Central Line Catheter: Yes Assessment to: Continue A/P Assessment and Plan Acute subarachnoid hemorrhage, left middle cerebral artery aneurysm Intracranial hypertension Acute respiratory failure on mechanical ventilation RLL pneumonia/GNR in sputum Acute encephalopathy Malignant hypertension Status post coiling of MCA aneurysm Hypokalemia History of hypertension Lactic acidosis PLAN: NEURO: Acute subarachnoid hemorrhage, left middle cerebral artery aneurysm Intracranial hypertension Acute encephalopathy Sedation/analgesia (Propofol, Versed and Fentanyl) to help control ICP. Mild hypervolemia using CVP. Continue Ventricular drain. Keppra, Nimotop. Treat fever aggressively. NM paralysis as needed CT angiogram done 04/14/16 showed status post endovascular repair of left supraclinoid aneurysm, left M1 segment aneurysm stable no vasospasm. Continue with hypervolemia and hypertension for vasospasm prevention. Target SBP 180 for vasospasm prophylaxis. CV: Uncontrolled HTN, now permissive Target SBP 180 for vasospasm prophylaxis. Maintain preload, follow CVP, for hypervolemia. RESP: Acute respiratory failure Possible HCAP PRVC vent mode, adjust vent rate to keep EtCO2 30-35. Nebs prn and scheduled. Vent bundle. No vent weaning due to high ICP, severe encephalopathy : Rebollar required for hourly output. GI: Increase tube feeds to goal as tolerated, continue bowel regimen Lactulose to 30 ml q8. No BM yet. Dulcolax suppository PRN, Having BM HEME: Serial Hgb. Transfuse to main O2 carrying capacity. ID: Sepsis HCAP sputum cx GNR and blood cultures neg to date. Started Zosyn 4.5 GM IV q6 8/16/ 16. CXR bilateral infiltrates, with leukocytosis and brown sputum ENDO: SSI for euglycemia, avoid hypokalemia, hypo Mag PX: Chemical DVT contraindicated. SCDs. Protonix. Overall impression: Severe SAH and left parenchymal bleed and ruptured aneurysm, with cerebral edema , elevated ICP. New HCAP and sepsis. Remains critically ill and prognosis guarded at best. Anticipate hospitalization > 4 weeks. Critical care 50 mins, d/w Mary Clayton MD Apr 16, 2016 15:23
[2016-04-16 15:25] LABS: BICARBONATE 24.5 MEQ/L (21.0-32.0); MAGNESIUM 2.5 MG/DL (1.5-2.5); POTASSIUM 3.8 MEQ/L (3.5-5.1)
[2016-04-16 16:19] LABS: BLOOD GAS BASE EXCESS -3.7 mmol/L (-2-2); BLOOD GAS CARBOXYHEMOGLOBIN 1.4 % (0-4); BLOOD GAS HCO3 21 mmol/L (22-26); BLOOD GAS METHEMOGLOBIN 0.8 % (0-2); BLOOD GAS O2 HGB SATURATION 91 % (90-100); BLOOD GAS OXYGEN CONTENT 10.6 Vol % (12.0-20.0); BLOOD GAS PCO2 35 mmHg (38-42); BLOOD GAS PO2 71 mmHg (61-120); BLOOD GAS TOTAL HGB 8.2 G/DL (12.0-16.0); CRITICAL VALUE NO; DRAW SITE ART LINE; FIO2 100 %; OXYGEN DEVICE VENTILATOR; TEMP CORR TO 98.6; VENT SETTINGS AC/20/600/+12
[2016-04-16 16:20] LABS: STAT NO
[2016-04-16] MEDS ORDERED: FUROSEMIDE 40 MG/4 ML VIAL ONE (16:27)
--- NOTE | 2016-04-16 16:52 | RADRPT ---
EXAM DATE/TIME: 04/16/2016 16:09 [facility] COMPARISON: CHEST SINGLE AP, April 16, 2016, 3:55. INDICATIONS : Short of breath. MEDICAL HISTORY : None. SURGICAL HISTORY : None. ENCOUNTER: Initial ACUITY: 4 - 6 days PAIN SCORE: 10/10 LOCATION: Bilateral chest FINDINGS: A single portable frontal view the chest shows an endotracheal tube with the tip approximately 4 cm p roximal to the ganesh. A left subclavian central line. Tip is at the cephalad portion of the SVC. No pneumothorax. Heart is enlarged. Bilateral pulmonary infiltrates most pronounced within the bases. Th mina are stable. CONCLUSION: Unchanged bilateral pulmonary infiltrates and cardiomegaly. Radiographic pattern suggesting intra-praveen eolar pulmonary edema. Kennedy Thibodeaux Jr., MD on April 16, 2016 at 16:48 Board Certified Radiologist. This report was verified electronically.
[2016-04-16] MEDS ORDERED: EPINEPHrine HCL (1:10,000) 1 MG/10 ML SYRINGE ONE (16:56)
[2016-04-16] MEDS ORDERED: ATROPINE SULFATE 1 MG/10 ML SYRINGE ONE (16:57)
[2016-04-16] MEDS ORDERED: LIDOCAINE HCL 2% 100 MG/5 ML SYRINGE ONE (16:57)
[2016-04-16] MEDS ORDERED: IOHEXOL 350 MG/ML 10 ML VIAL (for RAD DIAG) IV ONE (17:50)
--- NOTE | 2016-04-16 18:01 | RADRPT ---
EXAM DATE/TIME: 04/16/2016 17:40 [facility] COMPARISON: ANGIOGRAM, CEREBRAL WO ARCH, April 11, 2016, 14:18. CT BRAIN W/O CONTRAST, April 11, 2016, 11:32. INDICATIONS : Evaluate for hemorrhage. RADIATION DOSE: 56.35 CTDIvol (mGy) MEDICAL HISTORY : Aneurysm, intracranial. Hypertension. SURGICAL HISTORY : Tubal ligation. ENCOUNTER: Subsequent ACUITY: 1 week PAIN SCALE: Non-responsive LOCATION: cranial TECHNIQUE: Multiple contiguous axial images were obtained of the head. Using automated exposure control and adj ustment of the mA and/or kV according to patient size, radiation dose was kept as low as reasonably a chievable to obtain optimal diagnostic quality images. FINDINGS: A large evolving left frontotemporal hematoma is again noted. Subarachnoid blood is somewhat less con spicuous than previously. A cast of blood remains in the left lateral ventricle. Right frontal ventri culostomy catheter terminates with tip overlying the midline third ventricle. The ventricles are deco mpressed. There is rightward subfalcine shift of about 6-7 mm in mild predominantly left hemispheric effacement of cortical sulci. Mild symmetric effacement of basal cisterns. Foramen magnum is patent. There are no new focal acute findings identified. There has been interval coil placement in the regio n of the left supraclinoid carotid. CONCLUSION: Evolving left frontotemporal parenchymal hematoma and subarachnoid and intraventricular blood as desc ribed. No new acute findings. Fei Snyder MD on April 16, 2016 at 17:59 Board Certified Radiologist. This report was verified electronically.
[2016-04-16] MEDS: LEVOFLOXACIN 750 MG PREMIX INJ 150 ML IV SCH (18:29)
--- NOTE | 2016-04-16 18:33 | RADRPT ---
EXAM DATE/TIME: 04/16/2016 17:40 [facility] COMPARISON: No previous studies available for comparison. INDICATIONS : Evaluate for vasospasm. IV CONTRAST: 80 cc Omnipaque 350 (iohexol) IV RADIATION DOSE: 41.03 CTDIvol (mGy) MEDICAL HISTORY : Aneurysm, intracranial. Hypertension. SURGICAL HISTORY : Tubal ligation. ENCOUNTER: Subsequent ACUITY: 1 week PAIN SCALE: Non-responsive LOCATION: cranial TECHNIQUE: Volumetric scanning was performed using a multi-row detector CT scanner. The data was post processed with a variety of visualization algorithms including full volume maximum intensity projection, multi -planar sliding thin slab reformation, curved planar reformation, and surface rendering techniques. Using automated exposure control and adjustment of the mA and/or kV according to patient size, radiat ion dose was kept as low as reasonably achievable to obtain optimal diagnostic quality images. FINDINGS: Compared with the prior exam there is no significant change in vessel caliber within the intracranial arterial vasculature. No evidence for significant vasospasm. Again seen is a small 4 mm left M1 segm ent aneurysm. There is endovascular repair of a previous left supraclinoid aneurysm. Evolving intracr anial hemorrhage again noted. Right-sided ventriculostomy without hydrocephalus. CONCLUSION: 1. No significant vasospasm identified. Status post endovascular repair left supraclinoid aneurysm. L eft M1 segment aneurysm stable. Quinn Bateman MD on April 16, 2016 at 18:25 Board Certified Radiologist. This report was verified electronically.
[2016-04-17] VITALS (20 sets, daily range): BP systolic 157–194; BP diastolic 75–89; PULSE 63–90; RESP 20; TEMP 93.2–98.8; O2SAT 94–100
[2016-04-17] MEDS: LACTULOSE SYRUP 20 GM/30 ML CUP PO SCH ×3 (01:00→16:07)
[2016-04-17] MEDS: METOCLOPRAMIDE HCL SYRUP 10 MG/10 ML UDC PO SCH ×3 (01:19→16:06)
[2016-04-17] MEDS: METOPROLOL TARTRATE 25 MG TAB PO SCH ×4 (01:19→20:52)
[2016-04-17] MEDS: niCARdipine INJ 25 MG in SODIUM CHLOR 0.9% 250 ML INJ 250 ML IV SCH ×3 (01:19→20:53)
[2016-04-17 02:25] LABS: BLOOD GAS BASE EXCESS 0.8 mmol/L (-2-2); BLOOD GAS CARBOXYHEMOGLOBIN 1.7 % (0-4); BLOOD GAS HCO3 24 mmol/L (22-26); BLOOD GAS METHEMOGLOBIN 2.5 % (0-2); BLOOD GAS O2 HGB SATURATION 94 % (90-100); BLOOD GAS OXYGEN CONTENT 11.1 Vol % (12.0-20.0); BLOOD GAS PCO2 32 mmHg (38-42); BLOOD GAS PO2 104 mmHG (61-120); BLOOD GAS TOTAL HGB 8.3 G/DL (12.0-16.0); CRITICAL VALUE NO; DRAW SITE ALINE; FIO2 60 %; OXYGEN DEVICE VENTILATOR; STAT NO; TEMP CORR TO 98.6; VENT SETTINGS AC/20/600/PEEP12
[2016-04-17] MEDS: PROPOFOL 1000 MG/100 ML IV SCH ×7 (02:41→23:45)
[2016-04-17] MEDS: PIPERACIL-TAZO 4.5 GM PREMIX 100 ML IV SCH ×4 (02:42→20:52)
--- NOTE | 2016-04-17 03:52 | RADRPT ---
EXAM DATE/TIME: 04/17/2016 02:28 [facility] COMPARISON: CHEST SINGLE AP, April 16, 2016, 16:09. INDICATIONS : Short of breath MEDICAL HISTORY : None. SURGICAL HISTORY : None. ENCOUNTER: Subsequent ACUITY: 4 - 6 days PAIN SCORE: Non-responsive. LOCATION: Bilateral chest FINDINGS: ET tube and NG tube and left subclavian line are well placed. The cardiac silhouette does appear enla rged. There is increased density at the bases bilaterally being worse on the right. CONCLUSION: Bibasilar areas of consolidation or atelectasis being worse in the right. Fei Lea MD on April 17, 2016 at 3:51 Board Certified Radiologist. This report was verified electronically.
[2016-04-17] MEDS: CHLORHEXIDINE GLUCONATE 2 % 1 PACK (2 CLOTHS) TOP SCH (04:00)
[2016-04-17] MEDS: niMODipine 30 MG CAP PO SCH ×5 (04:05→20:52)
[2016-04-17] MEDS: fentaNYL DRIP 250 ML IV SCH ×3 (04:12→23:12)
[2016-04-17] MEDS: RESP: ALBUTEROL 2.5 MG/IPRATROPIUM 0.5 MG NEB (SCH) NEB ×4 (04:32→21:04)
[2016-04-17] MEDS: CISATRACURIUM INJ 200 MG in SODIUM CHLORID 0.9% 500 ML INJ 480 ML IV SCH ×2 (05:17→13:33)
[2016-04-17] MEDS: MIDAZOLAM 100 MG/ML INJ 100 ML IV SCH ×2 (05:30→12:07)
[2016-04-17 05:55] LABS: AUTOMATED NEUTROPHIL # 11.4 TH/MM3 (1.8-7.7); BASOPHIL # 0.1 TH/MM3 (0-0.2); BASOPHIL % 0.7 % (0.0-2.0); EOSINOPHIL # 0.6 TH/MM3 (0-0.4); EOSINOPHIL % 4.4 % (0.0-4.0); HEMATOCRIT 25.8 % (35.0-46.0); LYMPH % 7.1 % (9.0-44.0); MEAN CELL VOLUME 71.2 FL (80.0-100.0); MEAN CORPUSCULAR HEMOGLOBIN 22.4 PG (27.0-34.0); MEAN CORPUSCULAR HGB CONC 31.4 % (32.0-36.0); NEUT % 83.8 % (16.0-70.0); PLATELET COUNT 206 TH/MM3 (150-450); RED BLOOD COUNT 3.63 MIL/MM3 (4.00-5.30); RED CELL DISTRIBUTION WIDTH 28.3 % (11.6-17.2); WHITE BLOOD COUNT 13.6 TH/MM3 (4.0-11.0)
[2016-04-17 06:07] LABS: ALT (GPT) 14 U/L (10-53); ANION GAP 7 MEQ/L (5-15); AST (GOT) 17 U/L (15-37); BICARBONATE 24.5 MEQ/L (21.0-32.0); BLOOD UREA NITROGEN 10 MG/DL (7-18); CHLORIDE 119 MEQ/L (98-107); GLOMERULAR FILTRATION RATE 112 ML/MIN (>89); MAGNESIUM 2.1 MG/DL (1.5-2.5); POTASSIUM 3.6 MEQ/L (3.5-5.1); SODIUM (NA) 150 MEQ/L (136-145)
[2016-04-17 06:09] LABS: ALKALINE PHOSPHATASE 87 U/L (45-117); TOTAL BILIRUBIN ADULT 0.6 MG/DL (0.2-1.0)
[2016-04-17 06:19] LABS: HEMO FLAGS AUTO DIFF
[2016-04-17] MEDS: NOREPINEPHRINE INJ 4 MG in SODIUM CHLOR 0.9% 250 ML INJ 250 ML IV SCH (07:03)
[2016-04-17 07:31] LABS: BANDS 17 % (0-6); EOSINOPHILS 6 % (0-4); METAMYELOCYTES 1 % (0-1); NEUTROPHIL # MANUAL DIFF 12.2 TH/MM3 (1.8-7.7); PLATELET ESTIMATE SMEAR NORMAL (NORMAL); PLATELET MORPHOLOGY NORMAL (NORMAL); POLYS (SEG NEUTROPHILS) 72 % (16-70); SCAN/DIFF FINAL DIFF MANUAL; WBC DIFF SAMPLE 100
[2016-04-17] MEDS: NS + KCL 20 MEQ INJ 1,000 ML IV SCH ×2 (08:41→20:53)
[2016-04-17] MEDS: SODIUM CHLORIDE 0.9% FLUSH 5 ML FLUSH IVF SCH ×2 (08:42→21:00)
[2016-04-17] MEDS: levETIRAcetam 500MG PREMIX INJ 100 ML IV SCH ×2 (08:42→20:52)
[2016-04-17] MEDS: PANTOPRAZOLE SODIUM 40 MG VIAL IV SCH (08:43)
--- NOTE | 2016-04-17 10:11 | HHI.NSPN ---
(Genna Madrid) History Chief Complaint: status post coil for aneurysm (Genna Madrid) Interval History 04/12/16: Patient had an aneurysm coiled yesterday, intubated and sedated, ICP stable overnight 04/13/16: Increased ICP overnight, improved after a 23% saline bolus 04/14/16: ICP stable overnight 04/15/16: ICP stable, CTA stable no vasospasm 04/16/16: ICP slight increase overnight now stabilized, intubated and sedated 04/17/16: ICP increased yesterday afternoon, repeat CTA and CT stable, no vasospasm, no new hemorrhage, hypothermia overnight (Genna Madrid) Exam Results Vital Signs Date Time Temp Pulse Resp B/P Pulse Ox O2 Delivery O2 Flow Rate FiO2 04/17/16 08:13 100 50 04/17/16 06:00 65 04/17/16 04:00 93.2 20 177/86 180/89 Intake and Output 04/16/16 04/16/16 04/17/16 08:00 16:00 00:00 Intake Total 1542 ml 2009 ml 1824 ml Output Total 960 ml 790 ml 4475 ml Balance 582 ml 1219 ml -2651 ml (Genna Madrid) Physical Examination Intubated and sedated. Intact cough and gag reflex. No spontaneous eye opening. Absent disconjugate oculocephalics. Pupils are 2 mm slight. Right eye lateral gaze. Sclera spots/hemorrhages noted. Sharps in color. No withdrawal x 4. ICP 22 CPP 87. EVD draining bloody CSF at 5cmH20. (Genna Madrid) Lab, Micro, Other Results Last Impressions Chest X-Ray 04/17/16 0600 Signed Impressions: Service Date/Time: March 02:28 - CONCLUSION: Bibasilar areas of consolidation or atelectasis being worse in the right. Fei Lea MD Head CTA 04/16/16 0000 Signed Impressions: Service Date/Time: Saturday, April 16, 2016 17:40 - CONCLUSION: 1. No significant vasospasm identified. Status post endovascular repair left supraclinoid aneurysm. Left M1 segment aneurysm stable. Quinn Bateman MD Head CT 04/16/16 0000 Signed Impressions: Service Date/Time: Saturday, April 16, 2016 17:40 - CONCLUSION: Evolving left frontotemporal parenchymal hematoma and subarachnoid and intraventricular blood as described. No new acute findings. Fei Snyder MD Neck CTA 04/11/16 1151 Signed Impressions: Service Date/Time: Monday, April 11, 2016 12:01 - CONCLUSION: Negative for hemodynamically significant carotid stenosis. Ricardo Castellanos MD FACR Cerebral Arteriogram 04/11/16 0000 Signed Impressions: Service Date/Time: Monday, April 11, 2016 14:18 - CONCLUSION: 1. 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 This is the aneurysm felt responsible for the intracranial hemorrhage. 2. Small 4 mm left M1 segment aneurysm. Attempts at embolizing this aneurysm were unsuccessful due to the broad based nature of the aneurysm. Endovascular repair of this aneurysm could not be performed. Kennedy Thibodeaux Jr., MD Laboratory Tests Test 04/16/16 04/16/16 04/17/16 04/17/16 14:25 16:05 02:17 05:35 Sodium Level 154 MEQ/L 150 MEQ/L Potassium Level 3.8 MEQ/L 3.6 MEQ/L Chloride Level 125 MEQ/L 119 MEQ/L Carbon Dioxide Level 24.5 MEQ/L 24.5 MEQ/L Anion Gap 5 MEQ/L 7 MEQ/L Blood Urea Nitrogen 10 MG/DL 10 MG/DL Creatinine 0.57 MG/DL 0.68 MG/DL Estimat Glomerular Filtration 137 ML/MIN 112 ML/MIN Rate Random Glucose 102 MG/DL 94 MG/DL Calcium Level 7.9 MG/DL 8.3 MG/DL Phosphorus Level 2.1 MG/DL Magnesium Level 2.5 MG/DL 2.1 MG/DL Blood Gas Puncture Site ART LINE ROBERTO Blood Gas Patient Temperature 98.6 98.6 Blood Gas HCO3 21 mmol/L 24 mmol/L Blood Gas Base Excess -3.7 mmol/L 0.8 mmol/L Blood Gas Oxygen Saturation 91 % 94 % Arterial Blood pH 7.38 7.48 Arterial Blood Partial 35 mmHg 32 mmHg Pressure CO2 Arterial Blood Partial 71 mmHg 104 mmHG Pressure O2 Arterial Blood Oxygen Content 10.6 Vol % 11.1 Vol % Arterial Blood 1.4 % 1.7 % Carboxyhemoglobin Arterial Blood Methemoglobin 0.8 % 2.5 % Blood Gas Hemoglobin 8.2 G/DL 8.3 G/DL Oxygen Delivery Device VENTILATOR VENTILATOR Blood Gas Ventilator Setting AC/20/600/+12 AC/20/600/PEEP12 Blood Gas Inspired Oxygen 100 % 60 % White Blood Count 13.6 TH/MM3 Red Blood Count 3.63 MIL/MM3 Hemoglobin 8.1 GM/DL Hematocrit 25.8 % Mean Corpuscular Volume 71.2 FL Mean Corpuscular Hemoglobin 22.4 PG Mean Corpuscular Hemoglobin 31.4 % Concent Red Cell Distribution Width 28.3 % Platelet Count 206 TH/MM3 Mean Platelet Volume 8.9 FL Neutrophils (%) (Auto) 83.8 % Lymphocytes (%) (Auto) 7.1 % Monocytes (%) (Auto) 4.0 % Eosinophils (%) (Auto) 4.4 % Basophils (%) (Auto) 0.7 % Neutrophils # (Auto) 11.4 TH/MM3 Lymphocytes # (Auto) 1.0 TH/MM3 Monocytes # (Auto) 0.5 TH/MM3 Eosinophils # (Auto) 0.6 TH/MM3 Basophils # (Auto) 0.1 TH/MM3 CBC Comment AUTO DIFF Differential Total Cells 100 Counted Neutrophils % (Manual) 72 % Band Neutrophils % 17 % Lymphocytes % 4 % Eosinophils % 6 % Neutrophils # (Manual) 12.2 TH/MM3 Metamyelocytes 1 % Differential Comment FINAL DIFF MANUAL Platelet Estimate NORMAL Platelet Morphology Comment NORMAL Red Cell Morphology Comment NORMAL Total Bilirubin 0.6 MG/DL Aspartate Amino Transf 17 U/L (AST/SGOT) Alanine Aminotransferase 14 U/L (ALT/SGPT) Alkaline Phosphatase 87 U/L Total Protein 5.9 GM/DL Albumin 1.9 GM/DL (Genna Madrid) Medical Decision Making Impression and Plan Impression: 1. S/P endovascular coiling of ruptured cerebral aneurysm. 04/14/16 CT angiogram stable: Status post endovascular repair of left supraclinoid aneurysm. Left M1 segment aneurysm stable 04/16/[address] and CTA stable. No vasospasm, no new hemorrhage. Plan: Continue ventilatory support and sedation. Sedation vacations starting 04/21/16. Maintain ventriculostomy at 5cmH20 Nimodipine for vasospasm prophylaxis. Maintain systolic blood pressure 160-180 range Continue to monitor sodium level, keep 145-150 range Winding Inspector following for medical management Keppra for seizure prophylaxis. Protonix for ulcer prophylaxis Non-chemical DVT prophylaxis Discussed with RN at bedside. (Genna Madrid) Attending Statement On the date of this note, the undersigned had a [id number] encounter with the patient. I personally examined the patient, obtained pertinent history, and reviewed the electronic medical record including pertinent laboratory results and imaging studies. I personally developed the treatment plan and perform medical decision making. All of the above was performed in the presence of the physician's assistant chief nursing officer, who has scribed my findings into the medical record as noted above. Neurologic exam stable today. Plan follow-up CT head and CTA next week depending on clinical course (Sherwin Meléndez MD) Genna Madrid Apr 17, 2016 10:11 Sherwin Meléndez MD Apr 17, 2016 20:55
[2016-04-17] MEDS: RESP: ALBUTEROL 2.5 MG/IPRATROPIUM 0.5 MG NEB (PRN) INH (12:26)
[2016-04-17] MEDS ORDERED: Vancomycin Consult Pharmacy 1 EA OTHER SCH (12:45)
--- NOTE | 2016-04-17 12:56 | HHI.CCPN ---
Subjective Remarks/Hospital Course SAH, unresponsive, malignant hypertension - This 46-year-old woman with a longstanding history of hypertension, was found unresponsive at her home and paramedics arrived to find her with shallow breathing and a Angelica coma scale of three. Systolic blood pressure was 290 and under bag mask ventilation. She was brought to the emergency department where she remained unresponsive and required endotracheal intubation, mechanical ventilation. A CT scan of the head showed a large left hemispheric intraparenchymal hemorrhage with subarachnoid blood as well. Subsequent evaluation confirmed a left middle cerebral artery aneurysm which appears to be the culprit lesion. She was brought immediately to the [facility] where we continued Cardene drip infusion for blood pressure control and placed arterial monitoring lines and central venous line. Electrolyte abnormalities were corrected, particularly severe hypokalemia. The ventilator was adjusted to maintain arterial CO2, between 35 and 40. She received Keppra loading intravenously and Nimotop through the nasogastric tube. Usual ICU monitoring was in place and arrangements were made, a ventriculostomy was placed, and transported expeditiously to interventional radiology where attempts will be made to coil the aneurysm. 04/12: Culprit (larger) aneurysm was coiled last evening. ICP acceptable with drainage bloody as expected. Withdraws 4 limbs to pain. 04/13: ICP starting to rise > 20, requiring vent manipulation, increased sedation, analgesia. 04/14: Intermittently ICP spiking >20, RR increased to 18, 50 mg of rocuronium 1. CT angiogram done today to rule out vasospasm 04/15: Remains heavily sedated for ICP control. Overall ICP control improved overnight-remained 12-14. Currently on propofol fentanyl and Versed. CT angiogram done yesterday 04/14/16 showed status post endovascular repair of left supraclinoid aneurysm, left M1 segment aneurysm stable no vasospasm. 04/16: Remains hypoxemic, FiO2 had to be increased to 70%, now down to 60%. Chest x-ray shows increasing right lower lobe infiltrate sputum with gram- negative rods. Blood pressure remains at target 04/17: ICP remains elevated at 22-25. Became hypothermic overnight, likely related to worsening sepsis. Repeat panculture ordered, and vancomycin Objective - Vital Signs Date Time Temp Pulse Resp B/P Pulse Ox O2 Delivery O2 Flow Rate FiO2 04/17/16 12:26 98 45 04/17/16 06:00 65 04/17/16 04:00 93.2 20 177/86 180/89 Intake and Output 04/16/16 04/16/16 04/17/16 08:00 16:00 00:00 Intake Total 1542 ml 2009 ml 1824 ml Output Total 960 ml 790 ml 4475 ml Balance 582 ml 1219 ml -2651 ml Result Diagram: 04/17/16 0535 04/17/16 0535 Other Results Laboratory Tests Test 04/11/16 04/11/16 04/12/16 13:06 20:44 05:58 Blood Gas Puncture Site ART LINE ART LINE ART LINE Blood Gas Patient Temperature 98.6 98.6 98.6 Blood Gas HCO3 20 mmol/L 21 mmol/L 19 mmol/L (22-26) (22-26) (22-26) Blood Gas Base Excess -4.2 mmol/L -3.1 mmol/L -4.9 mmol/L (-2-2) (-2-2) (-2-2) Blood Gas Oxygen Saturation 98 % (90-100) 98 % (90-100) 97 % (90-100) Arterial Blood pH 7.40 7.42 7.42 (7.380-7.420) (7.380-7.420) (7.380-7.420) Arterial Blood Partial 33 mmHg (38-42) 33 mmHg (38-42) 30 mmHg (38-42) Pressure CO2 Arterial Blood Partial 372 mmHg 450 mmHg 135 mmHg Pressure O2 (61-120) (61-120) (61-120) Arterial Blood Oxygen Content 11.0 Vol % 10.2 Vol % 15.4 Vol % (12.0-20.0) (12.0-20.0) (12.0-20.0) Arterial Blood 1.5 % (0-4) 1.4 % (0-4) 1.3 % (0-4) Carboxyhemoglobin Arterial Blood Methemoglobin 1.2 % (0-2) 1.2 % (0-2) 1.1 % (0-2) Blood Gas Hemoglobin 7.3 G/DL 6.5 G/DL 11.2 G/DL (12.0-16.0) (12.0-16.0) (12.0-16.0) Oxygen Delivery Device VENT VENTILATOR VENTILATOR Blood Gas Ventilator Setting PRVC/20RATE/500/5PEE PRVC/AC PRVC/AC Blood Gas Inspired Oxygen 100 % 100 % 40 % Objective Remarks Infusions Propofol Fentanyl Versed Nimbex GEN: Middle-aged female who is intubated heavily sedated, critically ill HEENT: Head: Atraumatic. EVD in place, 243 ml in 24 hours. Pupils 2mm nonreactive. Tongue swollen and protuberant NECK: Supple. No resistance to motion. Orally intubated. LUNGS: Clear, no wheezes or crackles. HEART: Normal S1-S2, tachycardia, no murmur or rub, neck veins are distended. ABDOMEN: Soft, nontender, nondistended, no guarding, bowel sounds present. EXTREMITIES: Warm, well-perfused, foot and wrist pulses intact. NEUROLOGIC: Pupils 2 mm nonreactive. Neuromuscular paralysis limits exam. ICP 22-24. EVD draining bloody CSF at 5cmH20 A/P Assessment and Plan Acute subarachnoid hemorrhage, left middle cerebral artery aneurysm Intracranial hypertension Acute respiratory failure on mechanical ventilation RLL pneumonia/GNR in sputum Acute encephalopathy Malignant hypertension Status post coiling of MCA aneurysm Hypokalemia History of hypertension Lactic acidosis PLAN: NEURO: Acute subarachnoid hemorrhage, left middle cerebral artery aneurysm Intracranial hypertension Acute encephalopathy Sedation/analgesia (Propofol, Versed and Fentanyl) to help control ICP. Mild hypervolemia using CVP. Continue Ventricular drain. Keppra, Nimotop. Treat fever aggressively. NM paralysis 23% PRN for ICP >20. Keep Na 155-160 due to high ICP CT angiogram done 04/14, 04/16/16 showed status post endovascular repair of left supraclinoid aneurysm, left M1 segment aneurysm stable no vasospasm. Continue with hypervolemia and hypertension for vasospasm prevention. Target SBP 180 for vasospasm prophylaxis. CV: Uncontrolled HTN, now permissive Target SBP 180 for vasospasm prophylaxis. Maintain preload, follow CVP, for hypervolemia. RESP: Acute respiratory failure HCAP PRVC vent mode, adjust vent rate to keep EtCO2 30-35. Nebs prn and scheduled. Vent bundle. No vent weaning due to high ICP, severe encephalopathy : Rebollar required for hourly output. GI: Increase tube feeds to goal as tolerated, continue bowel regimen Lactulose to 30 ml q8. No BM yet. Dulcolax suppository PRN, Having BM HEME: Serial Hgb. ID: Severe sepsis with hypothermia HCAP sputum cx GNR and blood cultures neg to date. Started on Zosyn 4.5 GM IV q6 04/15. Levaquin was added 04/16/16 to cover for stenotrophomonas Repeat panculture with blood urine and sputum cultures CXR bilateral infiltrates, with leukocytosis and brown sputum ENDO: SSI for euglycemia, avoid hypokalemia, hypo Mag PX: Chemical DVT contraindicated. SCDs. Protonix. Overall impression: Severe SAH and left parenchymal bleed and ruptured aneurysm, with cerebral edema , elevated ICP. New HCAP and severe sepsis. Remains critically ill and prognosis guarded at best. Anticipate hospitalization > 4 weeks. Critical care 50 mins, d/w Dr. Meléndez, bedside RN Mary Enamorado MD Apr 17, 2016 12:56
[2016-04-17] MEDS ORDERED: SODIUM CHLORIDE 23.4% SOLN 120 MEQ/30 ML VIAL IV ONE (13:00)
[2016-04-17] MEDS ORDERED: VANCOMYCIN INJ 1,500 MG in SODIUM CHLORID 0.9% 500 ML INJ 500 ML IV ONE (13:00)
[2016-04-17] MEDS ORDERED: SODIUM CHLORIDE 23.4% INJ 240 MEQ in SYRINGE/BAG 1 EA IV ONE (13:00)
[2016-04-17 13:02] LABS: BLOOD GAS BASE EXCESS -0.4 mmol/L (-2-2); BLOOD GAS CARBOXYHEMOGLOBIN 1.5 % (0-4); BLOOD GAS HCO3 23 mmol/L (22-26); BLOOD GAS METHEMOGLOBIN 1.1 % (0-2); BLOOD GAS O2 HGB SATURATION 95 % (90-100); BLOOD GAS OXYGEN CONTENT 10.2 Vol % (12.0-20.0); BLOOD GAS PCO2 33 mmHg (38-42); BLOOD GAS PO2 93 mmHg (61-120); BLOOD GAS TOTAL HGB 7.5 G/DL (12.0-16.0); CRITICAL VALUE NO; DRAW SITE ART LINE; FIO2 50 %; OXYGEN DEVICE VENTILATOR; STAT NO; TEMP CORR TO 98.6
[2016-04-17] MEDS: VANCOMYCIN INJ 1,500 MG in SODIUM CHLORID 0.9% 500 ML INJ 500 ML IV SCH (14:54)
[2016-04-17] MEDS: LEVOFLOXACIN 750 MG PREMIX INJ 150 ML IV SCH (21:11)
[2016-04-18] VITALS (19 sets, daily range): BP systolic 145–190; BP diastolic 68–88; PULSE 61–75; RESP 20; TEMP 97.7–98.2; O2SAT 93–100
[2016-04-18] MEDS: niMODipine 30 MG CAP PO SCH ×6 (00:11→19:59)
[2016-04-18] MEDS: METOCLOPRAMIDE HCL SYRUP 10 MG/10 ML UDC PO SCH ×3 (00:13→15:37)
[2016-04-18] MEDS: LACTULOSE SYRUP 20 GM/30 ML CUP PO SCH ×3 (00:38→15:37)
[2016-04-18] MEDS: METOPROLOL TARTRATE 25 MG TAB PO SCH ×4 (02:00→19:59)
[2016-04-18 02:13] LABS: BLOOD GAS BASE EXCESS -2.3 mmol/L (-2-2); BLOOD GAS CARBOXYHEMOGLOBIN 1.6 % (0-4); BLOOD GAS HCO3 21 mmol/L (22-26); BLOOD GAS O2 HGB SATURATION 89 % (90-100); BLOOD GAS OXYGEN CONTENT 9.9 Vol % (12.0-20.0); BLOOD GAS PCO2 30 mmHg (38-42); BLOOD GAS PO2 68 mmHg (61-120); BLOOD GAS TOTAL HGB 7.8 G/DL (12.0-16.0); TEMP CORR TO 98.6
[2016-04-18 02:15] LABS: CRITICAL VALUE YES; DRAW SITE ART LINE; FIO2 55 %; OXYGEN DEVICE VENTILATOR; STAT NO; VENT SETTINGS AC/20/600/PEEP8/
[2016-04-18] MEDS: NS + KCL 20 MEQ INJ 1,000 ML IV SCH ×4 (02:29→20:39)
[2016-04-18] MEDS: VANCOMYCIN INJ 1,500 MG in SODIUM CHLORID 0.9% 500 ML INJ 500 ML IV SCH ×2 (02:29→13:19)
[2016-04-18] MEDS: PIPERACIL-TAZO 4.5 GM PREMIX 100 ML IV SCH ×4 (02:36→19:59)
[2016-04-18] MEDS: CISATRACURIUM INJ 200 MG in SODIUM CHLORID 0.9% 500 ML INJ 480 ML IV SCH ×2 (03:13→11:51)
[2016-04-18] MEDS: NOREPINEPHRINE INJ 4 MG in SODIUM CHLOR 0.9% 250 ML INJ 250 ML IV SCH (03:14)
[2016-04-18] MEDS: MIDAZOLAM 100 MG/ML INJ 100 ML IV SCH ×3 (03:17→23:28)
[2016-04-18] MEDS: PROPOFOL 1000 MG/100 ML IV SCH ×6 (03:17→23:28)
[2016-04-18] MEDS: RESP: ALBUTEROL 2.5 MG/IPRATROPIUM 0.5 MG NEB (SCH) NEB ×4 (03:37→20:32)
[2016-04-18] MEDS: CHLORHEXIDINE GLUCONATE 2 % 1 PACK (2 CLOTHS) TOP SCH (03:55)
[2016-04-18] MEDS: fentaNYL DRIP 250 ML IV SCH ×2 (06:34→15:37)
[2016-04-18] MEDS: niCARdipine INJ 25 MG in SODIUM CHLOR 0.9% 250 ML INJ 250 ML IV SCH ×2 (06:34→20:39)
[2016-04-18 07:28] LABS: AUTOMATED NEUTROPHIL # 9.2 TH/MM3 (1.8-7.7); BASOPHIL # 0.1 TH/MM3 (0-0.2); BASOPHIL % 0.5 % (0.0-2.0); EOSINOPHIL # 0.5 TH/MM3 (0-0.4); EOSINOPHIL % 4.5 % (0.0-4.0); HEMATOCRIT 23.5 % (35.0-46.0); HEMO FLAGS AUTO DIFF; LYMPH % 11.1 % (9.0-44.0); LYMPHOCYTE # 1.3 TH/MM3 (1.0-4.8); MEAN CORPUSCULAR HGB CONC 32.3 % (32.0-36.0); MONO % 7.9 % (0.0-8.0); PLATELET COUNT 206 TH/MM3 (150-450); RED CELL DISTRIBUTION WIDTH 28.4 % (11.6-17.2); WHITE BLOOD COUNT 12.1 TH/MM3 (4.0-11.0)
--- NOTE | 2016-04-18 07:30 | RADRPT ---
EXAM DATE/TIME: 04/18/2016 06:59 [facility] COMPARISON: CHEST SINGLE AP, April 17, 2016, 2:28. INDICATIONS : Increased congestion with wheezing, respiratory distress. MEDICAL HISTORY : Aneurysm, intracranial. Hypertension SURGICAL HISTORY : Tubal ligation. ENCOUNTER: Initial ACUITY: 1 week PAIN SCORE: 0/10 LOCATION: Bilateral chest FINDINGS: The support devices remain in place. There is no pneumothorax. There continues to be parenchymal cons olidation involving the right mid to right lower lung. The consolidation in the right lower lung is m ildly increased compared to the prior study. There continues to be some consolidation in the left sandor g base which is stable. Otherwise, no other significant changes are demonstrated. CONCLUSION: There appears to be a mild increase in the parenchymal consolidation in the right mid to right lower lung. Alfonso Escoto MD on April 18, 2016 at 7:27 Board Certified Radiologist. This report was verified electronically.
[2016-04-18 07:38] LABS: ALT (GPT) 14 U/L (10-53); ANION GAP 9 MEQ/L (5-15); AST (GOT) 21 U/L (15-37); BICARBONATE 21.6 MEQ/L (21.0-32.0); BLOOD UREA NITROGEN 10 MG/DL (7-18); CHLORIDE 119 MEQ/L (98-107); GLOMERULAR FILTRATION RATE 143 ML/MIN (>89); MAGNESIUM 2.1 MG/DL (1.5-2.5); POTASSIUM 3.5 MEQ/L (3.5-5.1); SODIUM (NA) 150 MEQ/L (136-145)
[2016-04-18 07:40] LABS: ALKALINE PHOSPHATASE 78 U/L (45-117); TOTAL BILIRUBIN ADULT 0.6 MG/DL (0.2-1.0)
[2016-04-18 08:10] LABS: BANDS 8 % (0-6); EOSINOPHILS 6 % (0-4); METAMYELOCYTES 1 % (0-1); OVALOCYTES 1+ (NORMAL); PLATELET ESTIMATE SMEAR NORMAL (NORMAL); PLATELET MORPHOLOGY NORMAL (NORMAL); POLYS (SEG NEUTROPHILS) 74 % (16-70); SCAN/DIFF FINAL DIFF MANUAL; WBC DIFF SAMPLE 100
[2016-04-18] MEDS: PANTOPRAZOLE SODIUM 40 MG VIAL IV SCH (09:01)
[2016-04-18] MEDS: levETIRAcetam 500MG PREMIX INJ 100 ML IV SCH ×2 (09:01→19:59)
[2016-04-18] MEDS: POTASSIUM CL 40 MEQ/30 ML LIQ UDC PO/TUBE PRN (09:01)
[2016-04-18] MEDS: SODIUM CHLORIDE 0.9% FLUSH 5 ML FLUSH IVF SCH ×2 (09:02→20:00)
--- NOTE | 2016-04-18 12:09 | HHI.CCPN ---
Subjective Remarks/Hospital Course SAH, unresponsive, malignant hypertension - This 46-year-old woman with a longstanding history of hypertension, was found unresponsive at her home and paramedics arrived to find her with shallow breathing and a Angelica coma scale of three. Systolic blood pressure was 290 and under bag mask ventilation. She was brought to the emergency department where she remained unresponsive and required endotracheal intubation, mechanical ventilation. A CT scan of the head showed a large left hemispheric intraparenchymal hemorrhage with subarachnoid blood as well. Subsequent evaluation confirmed a left middle cerebral artery aneurysm which appears to be the culprit lesion. She was brought immediately to the [facility] where we continued Cardene drip infusion for blood pressure control and placed arterial monitoring lines and central venous line. Electrolyte abnormalities were corrected, particularly severe hypokalemia. The ventilator was adjusted to maintain arterial CO2, between 35 and 40. She received Keppra loading intravenously and Nimotop through the nasogastric tube. Usual ICU monitoring was in place and arrangements were made, a ventriculostomy was placed, and transported expeditiously to interventional radiology where attempts will be made to coil the aneurysm. 04/12: Culprit (larger) aneurysm was coiled last evening. ICP acceptable with drainage bloody as expected. Withdraws 4 limbs to pain. 04/13: ICP starting to rise > 20, requiring vent manipulation, increased sedation, analgesia. 04/14: Intermittently ICP spiking >20, RR increased to 18, 50 mg of rocuronium 1. CT angiogram done today to rule out vasospasm 04/15: Remains heavily sedated for ICP control. Overall ICP control improved overnight-remained 12-14. Currently on propofol fentanyl and Versed. CT angiogram done yesterday 04/14/16 showed status post endovascular repair of left supraclinoid aneurysm, left M1 segment aneurysm stable no vasospasm. 04/16: Remains hypoxemic, FiO2 had to be increased to 70%, now down to 60%. Chest x-ray shows increasing right lower lobe infiltrate sputum with gram- negative rods. Blood pressure remains at target 04/17: ICP remains elevated at 22-25. Became hypothermic overnight, likely related to worsening sepsis. Repeat panculture ordered, and vancomycin 04/18: Labile hypertension. Start patient limits expanded to 150-190 systolic. Became more hypoxic now on 90% FiO2. Chest x-ray shows slight increase in right lower lobe infiltrate. Sodium at target Objective - Vital Signs Date Time Temp Pulse Resp B/P Pulse Ox O2 Delivery O2 Flow Rate FiO2 04/18/16 10:00 63 04/18/16 09:06 100 80 04/18/16 08:00 97.9 20 171/76 Intake and Output 04/17/16 04/17/16 04/18/16 08:00 16:00 00:00 Intake Total 1770 ml 1977 ml 3148 ml Output Total 1079 ml 525 ml 1080 ml Balance 691 ml 1452 ml 2068 ml Result Diagram: 04/18/16 0715 04/18/16 0715 Other Results Laboratory Tests Test 04/11/16 04/11/16 04/12/16 13:06 20:44 05:58 Blood Gas Puncture Site ART LINE ART LINE ART LINE Blood Gas Patient Temperature 98.6 98.6 98.6 Blood Gas HCO3 20 mmol/L 21 mmol/L 19 mmol/L (22-26) (22-26) (22-26) Blood Gas Base Excess -4.2 mmol/L -3.1 mmol/L -4.9 mmol/L (-2-2) (-2-2) (-2-2) Blood Gas Oxygen Saturation 98 % (90-100) 98 % (90-100) 97 % (90-100) Arterial Blood pH 7.40 7.42 7.42 (7.380-7.420) (7.380-7.420) (7.380-7.420) Arterial Blood Partial 33 mmHg (38-42) 33 mmHg (38-42) 30 mmHg (38-42) Pressure CO2 Arterial Blood Partial 372 mmHg 450 mmHg 135 mmHg Pressure O2 (61-120) (61-120) (61-120) Arterial Blood Oxygen Content 11.0 Vol % 10.2 Vol % 15.4 Vol % (12.0-20.0) (12.0-20.0) (12.0-20.0) Arterial Blood 1.5 % (0-4) 1.4 % (0-4) 1.3 % (0-4) Carboxyhemoglobin Arterial Blood Methemoglobin 1.2 % (0-2) 1.2 % (0-2) 1.1 % (0-2) Blood Gas Hemoglobin 7.3 G/DL 6.5 G/DL 11.2 G/DL (12.0-16.0) (12.0-16.0) (12.0-16.0) Oxygen Delivery Device VENT VENTILATOR VENTILATOR Blood Gas Ventilator Setting PRVC/20RATE/500/5PEE PRVC/AC PRVC/AC Blood Gas Inspired Oxygen 100 % 100 % 40 % Objective Remarks Infusions Propofol Fentanyl Versed Nimbex GEN: Middle-aged female who is intubated heavily sedated, critically ill HEENT: Head: Atraumatic. EVD in place, 270 ml in 24 hours. Pupils 2mm nonreactive. Tongue swollen and protuberant NECK: Supple. No resistance to motion. Orally intubated. LUNGS: Clear, no wheezes or crackles. HEART: Normal S1-S2, tachycardia, no murmur or rub, neck veins are distended. ABDOMEN: Soft, nontender, nondistended, no guarding, bowel sounds present. EXTREMITIES: Warm, well-perfused, foot and wrist pulses intact. NEUROLOGIC: Pupils 2 mm nonreactive. Neuromuscular paralysis limits exam. ICP 22-24. EVD draining bloody CSF at 5cmH20 Vascular Central Line Catheter: Yes Assessment to: Continue A/P Assessment and Plan Acute subarachnoid hemorrhage, left middle cerebral artery aneurysm Intracranial hypertension Acute respiratory failure on mechanical ventilation RLL pneumonia/E Coli in sputum Acute encephalopathy Malignant hypertension Status post coiling of MCA aneurysm Hypokalemia History of hypertension Lactic acidosis PLAN: NEURO: Acute subarachnoid hemorrhage, left middle cerebral artery aneurysm Intracranial hypertension Acute encephalopathy Sedation/analgesia (Propofol, Versed and Fentanyl) to help control ICP. Mild hypervolemia using CVP. Continue Ventricular drain. Keppra, Nimotop. Treat fever aggressively. NM paralysis -DC Nimbex today 04/18/16 23% PRN for ICP >20. Keep Na 155-160 due to high ICP CT angiogram done 04/14, 04/16/16 showed status post endovascular repair of left supraclinoid aneurysm, left M1 segment aneurysm stable no vasospasm. Continue with hypervolemia and hypertension for vasospasm prevention. Target SBP 180 for vasospasm prophylaxis. CV: Uncontrolled HTN, now permissive Target SBP 150-190 for vasospasm prophylaxis. Maintain preload, follow CVP, for hypervolemia. RESP: Acute respiratory failure HCAP PRVC vent mode, adjust vent rate to keep EtCO2 30-35. Nebs prn and scheduled. Vent bundle. No vent weaning due to high ICP, severe encephalopathy : Rebollar required for hourly output. GI: Increase tube feeds to goal as tolerated, continue bowel regimen Lactulose to 30 ml q8. No BM yet. Dulcolax suppository PRN, Having BM HEME: Serial Hgb. ID: Severe sepsis with hypothermia HCAP with E Coli Sputum cx EColi and blood cultures neg to date. Started on Zosyn 4.5 GM IV q6 . Levaquin was added 04/16/16 to cover for Stenotrophomonas Repeat panculture with blood urine and sputum cultures 04/17/16 negative to date CXR bilateral infiltrates, with leukocytosis and brown sputum ENDO: SSI for euglycemia, avoid hypokalemia, hypo Mag PX: Chemical DVT contraindicated. SCDs. Protonix. Overall impression: Severe SAH and left parenchymal bleed and ruptured aneurysm, with cerebral edema , elevated ICP. New HCAP and severe sepsis. Remains critically ill and prognosis guarded at best. Anticipate hospitalization > 4 weeks. Critical care 50 mins, d/w Dr. Meléndez, bedside RN Mary Enamorado MD Apr 18, 2016 12:09
--- NOTE | 2016-04-18 13:21 | HHI.NSPN ---
Subjective History Day 6 after coiling of large complex PCOM aneurysm, sedated and paralysed , CPP and EVD maintained. Vitals . Vital Signs Date Time Temp Pulse Resp B/P Pulse Ox O2 Delivery O2 Flow Rate FiO2 04/18/16 10:00 63 04/18/16 09:06 100 80 04/18/16 08:00 97.9 71 20 171/76 100 04/18/16 08:00 65 04/18/16 08:00 71 04/18/16 06:00 66 04/18/16 04:38 93 100 04/18/16 04:00 68 04/18/16 04:00 65 04/18/16 04:00 98.2 68 20 175/73 97 04/18/16 03:40 96 65 04/18/16 02:19 97 65 04/18/16 02:00 68 04/18/16 00:00 98.2 63 20 166/75 97 04/18/16 00:00 55 04/18/16 00:00 62 04/17/16 23:40 97 55 04/17/16 22:00 63 04/17/16 21:08 98 60 04/17/16 21:08 98 60 04/17/16 20:00 70 04/17/16 20:00 98.8 77 20 178/78 97 04/17/16 20:00 77 04/17/16 18:45 70 04/17/16 18:30 85 04/17/16 18:00 68 04/17/16 18:00 100 04/17/16 16:00 70 04/17/16 16:00 96.4 78 20 194/82 100 04/17/16 16:00 78 04/17/16 15:08 94 45 04/17/16 14:00 90 04/17/16 04/17/16 04/18/16 15:00 23:00 07:00 Intake Total 1977 ml 3148 ml 3455 ml Output Total 525 ml 1080 ml 1014 ml Balance 1452 ml 2068 ml 2441 ml Physical Exam Head Head: Atraumatic Eyes Eyes: Pupils Equal Neuro Mental Status: Sedated Pupils: Reactive Bilaterally Angelica Coma Scale Best Eye Openin - None Best Verbal: 1 - None Best Motor: 1 - None Cardiac Cardiac: Regular Rate & Rhythm Gastrointestinal Gastrointestinal: Soft Genitourinary Genitourinary: Rebollar Catheter In Place (EVD draing light red CSF, 269cc in the last day. CPP ranges from 80-100. ) Musculoskeletal Extremities Upper Extremities Deltoid Bicep Tricep HI W. Ext Right Left Lower Extremeties Ilio Quad Plantar Dorsi EHL Right Left Objective Infectious Disease Cultures Microbiology Date/Time Procedure Status Source Growth 04/17/16 14:40 Aerobic Blood Culture - Preliminary Resulted Blood Peripheral NO GROWTH IN 1 DAY 04/17/16 14:40 Anaerobic Blood Culture - Preliminary Resulted Blood Peripheral NO GROWTH IN 1 DAY 04/17/16 14:50 Aerobic Blood Culture - Preliminary Resulted Blood Peripheral NO GROWTH IN 1 DAY 04/17/16 14:50 Anaerobic Blood Culture - Preliminary Resulted Blood Peripheral NO GROWTH IN 1 DAY 04/17/16 18:14 Gram Stain - Final Resulted Sputum Endotracheal 04/17/16 18:14 Sputum Culture - Preliminary Resulted Sputum Endotracheal No growth. Drains Ventric @: 5 cm H2O Labs Laboratory Tests 04/18/16 07:15 Laboratory Tests Test 04/18/16 07:15 Sodium Level 150 MEQ/L Potassium Level 3.5 MEQ/L Chloride Level 119 MEQ/L Carbon Dioxide Level 21.6 MEQ/L Anion Gap 9 MEQ/L Blood Urea Nitrogen 10 MG/DL Creatinine 0.55 MG/DL Estimat Glomerular Filtration 143 ML/MIN Rate Random Glucose 112 MG/DL Calcium Level 7.9 MG/DL Magnesium Level 2.1 MG/DL Total Bilirubin 0.6 MG/DL Aspartate Amino Transf 21 U/L (AST/SGOT) Alanine Aminotransferase 14 U/L (ALT/SGPT) Alkaline Phosphatase 78 U/L Total Protein 5.6 GM/DL Albumin 1.7 GM/DL Imaging Remarks Last Impressions Chest X-Ray 04/18/16 0655 Signed Impressions: Service Date/Time: Monday, April 18, 2016 06:59 - CONCLUSION: There appears to be a mild increase in the parenchymal consolidation in the right mid to right lower lung. Alfonso Escoto MD Head CTA 04/16/16 0000 Signed Impressions: Service Date/Time: Saturday, April 16, 2016 17:40 - CONCLUSION: 1. No significant vasospasm identified. Status post endovascular repair left supraclinoid aneurysm. Left M1 segment aneurysm stable. Quinn Bateman MD Head CT 04/16/16 0000 Signed Impressions: Service Date/Time: Saturday, April 16, 2016 17:40 - CONCLUSION: Evolving left frontotemporal parenchymal hematoma and subarachnoid and intraventricular blood as described. No new acute findings. Fei Snyder MD Neck CTA 04/11/16 1151 Signed Impressions: Service Date/Time: Monday, April 11, 2016 12:01 - CONCLUSION: Negative for hemodynamically significant carotid stenosis. Ricardo Castellanos MD FACR Cerebral Arteriogram 04/11/16 0000 Signed Impressions: Service Date/Time: Monday, April 11, 2016 14:18 - CONCLUSION: 1. 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 This is the aneurysm felt responsible for the intracranial hemorrhage. 2. Small 4 mm left M1 segment aneurysm. Attempts at embolizing this aneurysm were unsuccessful due to the broad based nature of the aneurysm. Endovascular repair of this aneurysm could not be performed. Kennedy Thibodeaux Jr., MD Assessment & Plan Assessment Stable clinically, awaiting f/u CTA on Thursday. Keep SBP 160-190 to allow for the nimodipine effect in the BP. Seizure, feeding and DVT prophylaxis per critical care service. Critical Care Time (minutes): 15 Kolby Morris Apr 18, 2016 13:21
[2016-04-18] MEDS: LEVOFLOXACIN 750 MG PREMIX INJ 150 ML IV SCH (17:30)
[2016-04-18] MEDS ORDERED: FUROSEMIDE 20 MG/2 ML VIAL IV PUSH ONE (17:45)
[2016-04-18 20:44] LABS: BLOOD GAS BASE EXCESS -0.6 mmol/L (-2-2); BLOOD GAS CARBOXYHEMOGLOBIN 1.5 % (0-4); BLOOD GAS HCO3 22 mmol/L (22-26); BLOOD GAS O2 HGB SATURATION 97 % (90-100); BLOOD GAS OXYGEN CONTENT 12.1 Vol % (12.0-20.0); BLOOD GAS PCO2 25 mmHg (38-42); BLOOD GAS PO2 147 mmHg (61-120); BLOOD GAS TOTAL HGB 8.7 G/DL (12.0-16.0); TEMP CORR TO 98.6
[2016-04-18 20:46] LABS: CRITICAL VALUE YES; DRAW SITE ART LINE; FIO2 90 %; OXYGEN DEVICE VENTILATOR; VENT SETTINGS PC/AC/RR20/
[2016-04-18 20:47] LABS: STAT YES
[2016-04-18] MEDS: CISATRACURIUM 100 MG/NS 250 ML IV SCH ×2 (21:19)
[2016-04-18 23:31] LABS: BLOOD GAS CARBOXYHEMOGLOBIN 1.3 % (0-4); BLOOD GAS HCO3 23 mmol/L (22-26); BLOOD GAS METHEMOGLOBIN 0.9 % (0-2); BLOOD GAS O2 HGB SATURATION 97 % (90-100); BLOOD GAS OXYGEN CONTENT 13.5 Vol % (12.0-20.0); BLOOD GAS PCO2 29 mmHg (38-42); BLOOD GAS PO2 216 mmHg (61-120); BLOOD GAS TOTAL HGB 9.5 G/DL (12.0-16.0); TEMP CORR TO 98.6
[2016-04-18 23:32] LABS: CRITICAL VALUE YES; FIO2 85 %; OXYGEN DEVICE VENTILATOR; VENT SETTINGS PC/AC/RR16/
[2016-04-18 23:33] LABS: DRAW SITE ART LINE; STAT YES
[2016-04-19] VITALS (20 sets, daily range): BP systolic 143–197; BP diastolic 79–98; PULSE 60–80; RESP 15–18; TEMP 96.1–98.1; O2SAT 97–100
[2016-04-19] MEDS: METOCLOPRAMIDE HCL SYRUP 10 MG/10 ML UDC PO SCH ×3 (00:13→16:18)
[2016-04-19] MEDS: niMODipine 30 MG CAP PO SCH ×6 (00:13→19:55)
[2016-04-19] MEDS ORDERED: PHARMACY ORDERED LAB XX ONE (01:45)
[2016-04-19] MEDS: NS + KCL 20 MEQ INJ 1,000 ML IV SCH ×3 (02:38→16:18)
[2016-04-19] MEDS: VANCOMYCIN INJ 1,500 MG in SODIUM CHLORID 0.9% 500 ML INJ 500 ML IV SCH ×2 (02:38→13:05)
[2016-04-19] MEDS: PIPERACIL-TAZO 4.5 GM PREMIX 100 ML IV SCH ×4 (02:38→19:55)
[2016-04-19] MEDS: METOPROLOL TARTRATE 25 MG TAB PO SCH ×4 (02:38→19:55)
[2016-04-19] MEDS: CISATRACURIUM 100 MG/NS 250 ML IV SCH ×12 (03:18→21:18)
[2016-04-19] MEDS: RESP: ALBUTEROL 2.5 MG/IPRATROPIUM 0.5 MG NEB (SCH) NEB ×4 (03:38→22:08)
[2016-04-19] MEDS: CHLORHEXIDINE GLUCONATE 2 % 1 PACK (2 CLOTHS) TOP SCH (03:50)
[2016-04-19 04:33] LABS: AUTOMATED NEUTROPHIL # 9.3 TH/MM3 (1.8-7.7); BASOPHIL # 0.1 TH/MM3 (0-0.2); BASOPHIL % 0.5 % (0.0-2.0); EOSINOPHIL # 0.6 TH/MM3 (0-0.4); HEMATOCRIT 23.8 % (35.0-46.0); LYMPH % 10.2 % (9.0-44.0); LYMPHOCYTE # 1.2 TH/MM3 (1.0-4.8); MEAN CELL VOLUME 70.6 FL (80.0-100.0); MEAN CORPUSCULAR HEMOGLOBIN 22.7 PG (27.0-34.0); MEAN CORPUSCULAR HGB CONC 32.1 % (32.0-36.0); MONO % 7.6 % (0.0-8.0); NEUT % 76.7 % (16.0-70.0); PLATELET COUNT 203 TH/MM3 (150-450); RED BLOOD COUNT 3.37 MIL/MM3 (4.00-5.30); RED CELL DISTRIBUTION WIDTH 28.7 % (11.6-17.2); WHITE BLOOD COUNT 12.1 TH/MM3 (4.0-11.0)
[2016-04-19 04:34] LABS: HEMO FLAGS AUTO DIFF
[2016-04-19 05:03] LABS: ALT (GPT) 19 U/L (10-53); ANION GAP 7 MEQ/L (5-15); AST (GOT) 32 U/L (15-37); BICARBONATE 22.8 MEQ/L (21.0-32.0); BLOOD UREA NITROGEN 8 MG/DL (7-18); CHLORIDE 116 MEQ/L (98-107); GLOMERULAR FILTRATION RATE 143 ML/MIN (>89); MAGNESIUM 1.8 MG/DL (1.5-2.5); POTASSIUM 3.6 MEQ/L (3.5-5.1); SODIUM (NA) 146 MEQ/L (136-145)
[2016-04-19 05:05] LABS: ALKALINE PHOSPHATASE 109 U/L (45-117); TOTAL BILIRUBIN ADULT 0.6 MG/DL (0.2-1.0)
[2016-04-19] MEDS: fentaNYL DRIP 250 ML IV SCH ×2 (05:11→10:53)
[2016-04-19] MEDS: PROPOFOL 1000 MG/100 ML IV SCH ×5 (05:11→21:18)
[2016-04-19] MEDS: niCARdipine INJ 25 MG in SODIUM CHLOR 0.9% 250 ML INJ 250 ML IV SCH ×3 (05:14→22:46)
[2016-04-19 05:59] LABS: KERATOCYTES OCC (NORMAL); OVALOCYTES 1+ (NORMAL); SCAN/DIFF AUTO DIFF CONFIRMED
--- NOTE | 2016-04-19 06:49 | RADRPT ---
EXAM DATE/TIME: 04/19/2016 04:05 [place] COMPARISON: CHEST SINGLE AP, April 18, 2016, 6:59. INDICATIONS : Shortness of breath. MEDICAL HISTORY : None. SURGICAL HISTORY : None. ENCOUNTER: Subsequent ACUITY: 1 week PAIN SCORE: Non-responsive. LOCATION: Bilateral chest FINDINGS: Endotracheal tube tip well above the ganesh. Left subclavian catheter tip projects at the arch of th e superior vena cava. Gastric tube traverses the [id number]. There is persistent lobar consolida tion the mid left lower lung with loss of delineation of the entire left hemidiaphragm. Patchy infil trates at the right base obscuring the right hemidiaphragm. CONCLUSION: Persistent bilateral lower lung infiltrates and left lower lung consolidation, stable. Kennedy Rodriguez MD on April 19, 2016 at 6:46 Board Certified Radiologist. This report was verified electronically.
[2016-04-19] MEDS: LACTULOSE SYRUP 20 GM/30 ML CUP PO SCH (08:12)
[2016-04-19] MEDS: MIDAZOLAM 100 MG/ML INJ 100 ML IV SCH (08:13)
[2016-04-19] MEDS: PANTOPRAZOLE SODIUM 40 MG VIAL IV SCH (08:13)
[2016-04-19] MEDS: levETIRAcetam 500MG PREMIX INJ 100 ML IV SCH ×2 (08:13→19:55)
[2016-04-19] MEDS: SODIUM CHLORIDE 0.9% FLUSH 5 ML FLUSH IVF SCH ×2 (08:14→19:55)
[2016-04-19 08:26] LABS: BLOOD GAS CARBOXYHEMOGLOBIN 1.5 % (0-4); BLOOD GAS HCO3 22 mmol/L (22-26); BLOOD GAS METHEMOGLOBIN 0.9 % (0-2); BLOOD GAS O2 HGB SATURATION 97 % (90-100); BLOOD GAS OXYGEN CONTENT 11.6 Vol % (12.0-20.0); BLOOD GAS PCO2 25 mmHg (38-42); BLOOD GAS PO2 135 mmHg (61-120); BLOOD GAS TOTAL HGB 8.4 G/DL (12.0-16.0); CRITICAL VALUE YES; OXYGEN DEVICE PAC18 IP28IT1.1 PE14; TEMP CORR TO 98.6
[2016-04-19 08:27] LABS: DRAW SITE ART LINE; FIO2 55 %; STAT YES
[2016-04-19] MEDS ORDERED: 3% SALINE INJ 500 ML IV SCH (11:00)
[2016-04-19 11:01] LABS: BLOOD GAS BASE EXCESS -1.3 mmol/L (-2-2); BLOOD GAS CARBOXYHEMOGLOBIN 1.2 % (0-4); BLOOD GAS HCO3 22 mmol/L (22-26); BLOOD GAS METHEMOGLOBIN 1.1 % (0-2); BLOOD GAS O2 HGB SATURATION 96 % (90-100); BLOOD GAS OXYGEN CONTENT 11.4 Vol % (12.0-20.0); BLOOD GAS PCO2 33 mmHg (38-42); BLOOD GAS PO2 120 mmHg (61-120); BLOOD GAS TOTAL HGB 8.3 G/DL (12.0-16.0); CRITICAL VALUE NO; OXYGEN DEVICE VENTILATOR; TEMP CORR TO 98.6
[2016-04-19 11:02] LABS: DRAW SITE ART LINE; FIO2 50 %; STAT NO
[2016-04-19] MEDS ORDERED: SODIUM CHLORIDE 23.4% INJ 240 MEQ in SYRINGE/BAG 1 EA IV STA (11:25)
--- NOTE | 2016-04-19 12:28 | HHI.NSPN ---
Subjective History Day 7 after coiling of large complex PCOM aneurysm, sedated and paralysed , CPP and EVD maintained. Vitals . Vital Signs Date Time Temp Pulse Resp B/P Pulse Ox O2 Delivery O2 Flow Rate FiO2 04/19/16 12:14 100 50 04/19/16 12:00 55 04/19/16 12:00 97.0 65 15 183/83 100 04/19/16 12:00 65 04/19/16 10:00 63 04/19/16 08:33 100 50 04/19/16 08:30 55 04/19/16 08:00 80 04/19/16 08:00 98.1 80 18 185/86 100 04/19/16 08:00 55 04/19/16 06:00 74 04/19/16 05:34 100 55 04/19/16 04:00 65 04/19/16 04:00 98.1 68 18 100 173/79 04/19/16 04:00 68 04/19/16 03:42 100 65 04/19/16 02:00 72 04/19/16 00:05 100 75 04/19/16 00:00 70 04/19/16 00:00 97.9 70 16 188/98 100 143/90 04/19/16 00:00 75 04/18/16 22:00 66 04/18/16 21:31 100 85 04/18/16 20:00 97.7 74 20 190/88 100 04/18/16 20:00 90 04/18/16 20:00 100 85 04/18/16 20:00 100 85 04/18/16 20:00 75 04/18/16 18:00 75 04/18/16 16:56 100 100 04/18/16 16:22 100 04/18/16 16:00 80 04/18/16 16:00 67 04/18/16 16:00 98.2 67 20 145/68 99 04/18/16 14:00 61 04/18/16 13:32 94 80 04/18/16 04/18/16 04/19/16 14:59 22:59 06:59 Intake Total 3088 ml 3331 ml 3503 ml Output Total 1434 ml 3716 ml 3175 ml Balance 1654 ml -385 ml 328 ml Physical Exam Head Head Remarks Intubated, sedated, paralyzed Eyes Eyes: Pupils Equal Neuro Pupils: Reactive Bilaterally [place] Coma Scale Best Eye Openin - None Best Verbal: 1 - None Best Motor: 1 - None Musculoskeletal Extremities Upper Extremities Deltoid Bicep Tricep HI W. Ext Right Left Lower Extremeties Ilio Quad Plantar Dorsi EHL Right Left Objective Infectious Disease Cultures Current Medications Medications (Trade) Dose Ordered Sig/Zhanna Route Start Time Stop Time Status Last Admin Nimodipine 60 mg 60 mg Q4HR PO 04/11/16 16:00 04/19/16 11:58 (NS + KCl 20 Meq Inj) 1,000 ml @ 125 mls/hr Q8H IV 04/11/16 13:23 04/19/16 10:53 (NS Flush) 2 ml UNSCH PRN IVF 04/11/16 13:30 (NS Flush) 2 ml BID IVF 04/11/16 21:00 04/19/16 08:14 (Tylenol) 650 mg Q6H PRN PO 04/11/16 13:30 (Protonix Inj) 40 mg DAILY IV 04/11/16 14:00 04/19/16 08:13 (Ativan Inj) 2 mg Q1H PRN IV 04/11/16 13:30 (Zofran Inj) 4 mg Q6H PRN IV 04/11/16 13:30 Miscellaneous Information 1 Q361D XX 04/11/16 13:30 (Chlorhexidine 2% Cloth) Taper DAILY@04 TOP 04/12/16 04:00 04/08/17 03:59 04/17/16 04:00 Chlorhexidine Gluconate 3 pack 3 pack UNSCH PRN TOP 04/11/16 13:30 Levetriacetam 100 ml @ 400 mls/hr Q12HR IV 04/11/16 21:00 04/19/16 08:13 Potassium Chloride 100 ml @ 50 mls/hr Q2H PRN IV 04/11/16 13:30 (KCl 20 Meq Premix Inj) 100 ml @ 50 mls/hr Q2H PRN IV 04/11/16 13:30 Potassium Chloride 40 meq 40 meq UNSCH PRN PO/TUBE 04/11/16 13:30 04/18/16 09:01 Potassium Chloride 100 ml @ 25 mls/hr UNSCH PRN IV 04/11/16 13:30 Potassium Chloride 100 ml @ 50 mls/hr Q2H PRN IV 04/11/16 13:30 (Magnesium Sulfate Inj/NS Inj) 100 ml @ 50 mls/hr UNSCH PRN IV 04/11/16 13:30 Magnesium Oxide 800 mg 800 mg UNSCH PRN PO 04/11/16 13:30 (Magnesium Sulfate Inj/NS Inj) 100 ml @ 50 mls/hr UNSCH PRN IV 04/11/16 13:30 Potassium Phosphate 2000 mg 2,000 mg Q4H PRN PO 04/11/16 13:30 (Sodium Phosphate Inj/NS 250 ml Inj) 250 ml @ 42 mls/hr UNSCH PRN IV 04/11/16 13:30 04/14/16 06:47 (KCl 40 Meq/30 ml Liq) 40 meq UNSCH PRN PO/TUBE 04/11/16 13:30 Potassium Phosphate 2000 mg 2,000 mg UNSCH PRN PO/TUBE 04/11/16 13:30 (Potassium Phosphate Inj/NS 250 ml Inj) 260 ml @ 42 mls/hr UNSCH PRN IV 04/11/16 13:30 (Lopressor) 25 mg Q6H PO 04/11/16 14:00 04/19/16 08:13 Acetaminophen 650 mg 650 mg Q4H PRN PO 04/11/16 16:30 (Diprivan 1000 Mg/100ml Inj) 100 ml @ 0 mls/hr TITRATE IV 04/11/16 20:30 04/19/16 11:58 (Reglan Liq) 10 mg Q8H PO 04/12/16 09:00 04/19/16 08:12 Fentanyl Citrate 100 mcg 100 mcg Q30M PRN IV PUSH 04/12/16 16:30 04/15/16 14:51 Fentanyl Citrate 250 ml @ 0 mls/hr TITRATE IV 04/12/16 16:30 04/19/16 10:53 Norepinephrine Bitartrate 4 mg/ Sodium Chloride 254 ml @ 0 mls/hr TITRATE IV 04/12/16 17:45 04/18/16 03:14 Midazolam HCl 100 ml @ 0 mls/hr TITRATE IV 04/13/16 13:00 04/19/16 08:13 Nicardipine HCl 25 mg/Sodium Chloride 260 ml @ 0 mls/hr TITRATE IV 04/14/16 17:45 04/19/16 05:14 Piperacillin Sod/ Tazobactam Sod 100 ml @ 200 mls/hr Q6H IV 04/15/16 09:00 04/19/16 08:13 Levofloxacin/ Dextrose 150 ml @ 100 mls/hr Q24H IV 04/16/16 18:00 04/18/16 17:30 Pharmacy Profile Note 0 ml @ 0 mls/hr UNSCH OTHER 04/17/16 12:45 Vancomycin HCl 1500 mg/Sodium Chloride 530 ml @ 250 mls/hr Q12H IV 04/17/16 14:00 04/19/16 02:38 (Nimbex Inj/NS 250 ml Inj) 250 ml @ 0 mls/hr TITRATE IV 04/18/16 17:45 04/19/16 11:31 Lactulose 30 ml 30 ml DAILY PO 04/19/16 09:00 04/19/16 08:12 (Sodium Chloride 3% Inj) 500 ml @ 20 mls/hr Q24H IV 04/19/16 11:00 04/19/16 10:53 Antibiotics (indicate IV PO) Laboratory Tests Test 04/18/16 04/18/16 04/19/16 04/19/16 20:31 23:17 02:00 03:55 Arterial Blood pH 7.55 7.51 Arterial Blood Partial 25 mmHg 29 mmHg Pressure CO2 Arterial Blood Partial 147 mmHg 216 mmHg Pressure O2 Blood Gas Hemoglobin 8.7 G/DL 9.5 G/DL Vancomycin Level Trough 14.7 MCG/ML White Blood Count 12.1 TH/MM3 Red Blood Count 3.37 MIL/MM3 Hemoglobin 7.6 GM/DL Hematocrit 23.8 % Mean Corpuscular Volume 70.6 FL Mean Corpuscular Hemoglobin 22.7 PG Red Cell Distribution Width 28.7 % Neutrophils (%) (Auto) 76.7 % Eosinophils (%) (Auto) 5.0 % Neutrophils # (Auto) 9.3 TH/MM3 Eosinophils # (Auto) 0.6 TH/MM3 Ovalocytes 1+ Keratocytes OCC Sodium Level 146 MEQ/L Chloride Level 116 MEQ/L Calcium Level 8.1 MG/DL Total Protein 5.6 GM/DL Albumin 1.6 GM/DL Test 04/19/16 04/19/16 08:24 10:50 Arterial Blood pH 7.56 7.44 Arterial Blood Partial 25 mmHg 33 mmHg Pressure CO2 Arterial Blood Partial 135 mmHg Pressure O2 Arterial Blood Oxygen Content 11.6 Vol % 11.4 Vol % Blood Gas Hemoglobin 8.4 G/DL 8.3 G/DL Drains Ventric Draining: Blood Tinged CSF Labs Laboratory Tests 04/19/16 03:55 Laboratory Tests Test 04/19/16 03:55 Sodium Level 146 MEQ/L Potassium Level 3.6 MEQ/L Chloride Level 116 MEQ/L Carbon Dioxide Level 22.8 MEQ/L Anion Gap 7 MEQ/L Blood Urea Nitrogen 8 MG/DL Creatinine 0.55 MG/DL Estimat Glomerular Filtration 143 ML/MIN Rate Random Glucose 103 MG/DL Calcium Level 8.1 MG/DL Magnesium Level 1.8 MG/DL Total Bilirubin 0.6 MG/DL Aspartate Amino Transf 32 U/L (AST/SGOT) Alanine Aminotransferase 19 U/L (ALT/SGPT) Alkaline Phosphatase 109 U/L Total Protein 5.6 GM/DL Albumin 1.6 GM/DL Laboratory Tests Test 04/19/16 02:00 Vancomycin Level Trough 14.7 MCG/ML Assessment & Plan Assessment Stable clinically, awaiting f/u CTA on Thursday. CPP maintained and ICP well controlled with sedation CSF drainage. Keep SBP 160-190 to allow for the nimodipine effect in the BP. Feeding and DVT prophylaxis per critical care service. Ok to use lovenox Critical Care Time (minutes): 10 Kolby Morris Apr 19, 2016 12:28
[2016-04-19] MEDS: ENOXAPARIN SODIUM 40 MG/0.4 ML SYRINGE SQ SCH (13:04)
--- NOTE | 2016-04-19 13:06 | HHI.CCPN ---
Subjective Remarks/Hospital Course SAH, unresponsive, malignant hypertension - This 46-year-old woman with a longstanding history of hypertension, was found unresponsive at her home and paramedics arrived to find her with shallow breathing and a Angelica coma scale of three. Systolic blood pressure was 290 and under bag mask ventilation. She was brought to the emergency department where she remained unresponsive and required endotracheal intubation, mechanical ventilation. A CT scan of the head showed a large left hemispheric intraparenchymal hemorrhage with subarachnoid blood as well. Subsequent evaluation confirmed a left middle cerebral artery aneurysm which appears to be the culprit lesion. She was brought immediately to the [facility] where we continued Cardene drip infusion for blood pressure control and placed arterial monitoring lines and central venous line. Electrolyte abnormalities were corrected, particularly severe hypokalemia. The ventilator was adjusted to maintain arterial CO2, between 35 and 40. She received Keppra loading intravenously and Nimotop through the nasogastric tube. Usual ICU monitoring was in place and arrangements were made, a ventriculostomy was placed, and transported expeditiously to interventional radiology where attempts will be made to coil the aneurysm. 04/12: Culprit (larger) aneurysm was coiled last evening. ICP acceptable with drainage bloody as expected. Withdraws 4 limbs to pain. 04/13: ICP starting to rise > 20, requiring vent manipulation, increased sedation, analgesia. 04/14: Intermittently ICP spiking >20, RR increased to 18, 50 mg of rocuronium 1. CT angiogram done today to rule out vasospasm 04/15: Remains heavily sedated for ICP control. Overall ICP control improved overnight-remained 12-14. Currently on propofol fentanyl and Versed. CT angiogram done yesterday 04/14/16 showed status post endovascular repair of left supraclinoid aneurysm, left M1 segment aneurysm stable no vasospasm. 04/16: Remains hypoxemic, FiO2 had to be increased to 70%, now down to 60%. Chest x-ray shows increasing right lower lobe infiltrate sputum with gram- negative rods. Blood pressure remains at target 04/17: ICP remains elevated at 22-25. Became hypothermic overnight, likely related to worsening sepsis. Repeat panculture ordered, and vancomycin 04/18: Labile hypertension. Start patient limits expanded to 150-190 systolic. Became more hypoxic now on 90% FiO2. Chest x-ray shows slight increase in right lower lobe infiltrate. Sodium at target 04/19: Remains critically ill with intermittent ICP elevation. ABG shows respiratory alkalosis, minute ventilation reduce which caused ICP to increase further. 3% saline restarted and 23% saline 1 bolus ordered. Chest x-ray shows slight improvement in the right lower lung infiltrate Objective - Vital Signs Date Time Temp Pulse Resp B/P Pulse Ox O2 Delivery O2 Flow Rate FiO2 04/19/16 12:14 100 50 04/19/16 12:00 97.0 65 15 183/83 Intake and Output 04/18/16 04/18/16 04/18/16 07:59 15:59 23:59 Intake Total 3455 ml 3088 ml 3331 ml Output Total 1014 ml 1434 ml 3716 ml Balance 2441 ml 1654 ml -385 ml Result Diagram: 04/19/16 0355 04/19/16 0355 Other Results Laboratory Tests Test 04/11/16 04/11/16 04/12/16 13:06 20:44 05:58 Blood Gas Puncture Site ART LINE ART LINE ART LINE Blood Gas Patient Temperature 98.6 98.6 98.6 Blood Gas HCO3 20 mmol/L 21 mmol/L 19 mmol/L (22-26) (22-26) (22-26) Blood Gas Base Excess -4.2 mmol/L -3.1 mmol/L -4.9 mmol/L (-2-2) (-2-2) (-2-2) Blood Gas Oxygen Saturation 98 % (90-100) 98 % (90-100) 97 % (90-100) Arterial Blood pH 7.40 7.42 7.42 (7.380-7.420) (7.380-7.420) (7.380-7.420) Arterial Blood Partial 33 mmHg (38-42) 33 mmHg (38-42) 30 mmHg (38-42) Pressure CO2 Arterial Blood Partial 372 mmHg 450 mmHg 135 mmHg Pressure O2 (61-120) (61-120) (61-120) Arterial Blood Oxygen Content 11.0 Vol % 10.2 Vol % 15.4 Vol % (12.0-20.0) (12.0-20.0) (12.0-20.0) Arterial Blood 1.5 % (0-4) 1.4 % (0-4) 1.3 % (0-4) Carboxyhemoglobin Arterial Blood Methemoglobin 1.2 % (0-2) 1.2 % (0-2) 1.1 % (0-2) Blood Gas Hemoglobin 7.3 G/DL 6.5 G/DL 11.2 G/DL (12.0-16.0) (12.0-16.0) (12.0-16.0) Oxygen Delivery Device VENT VENTILATOR VENTILATOR Blood Gas Ventilator Setting PRVC/20RATE/500/5PEE PRVC/AC PRVC/AC Blood Gas Inspired Oxygen 100 % 100 % 40 % Objective Remarks Infusions Propofol Fentanyl Versed Nimbex GEN: Middle-aged female who is intubated heavily sedated, critically ill HEENT: Head: Atraumatic. EVD in place, 250 ml in 24 hours. Pupils 2mm nonreactive. Tongue swollen and protuberant NECK: Supple. No resistance to motion. Orally intubated. LUNGS: Clear, no wheezes or crackles. HEART: Normal S1-S2, tachycardia, no murmur or rub, neck veins are distended. ABDOMEN: Soft, nontender, nondistended, no guarding, bowel sounds present. EXTREMITIES: Warm, well-perfused, foot and wrist pulses intact. NEUROLOGIC: Pupils 2 mm nonreactive. Neuromuscular paralysis limits exam. ICP 15-20. EVD draining bloody CSF at 5cmH20 A/P Assessment and Plan Acute subarachnoid hemorrhage, left middle cerebral artery aneurysm Intracranial hypertension Acute respiratory failure on mechanical ventilation RLL pneumonia/E Coli in sputum Acute encephalopathy Malignant hypertension Status post coiling of MCA aneurysm Hypokalemia History of hypertension Lactic acidosis PLAN: NEURO: Acute subarachnoid hemorrhage, left middle cerebral artery aneurysm Intracranial hypertension Acute encephalopathy Sedation/analgesia (Propofol, Versed and Fentanyl) to help control ICP. Mild hypervolemia using CVP. Continue Ventricular drain. Keppra, Nimotop. Treat fever aggressively. NM paralysis with Nimbex for ICP control 23% PRN for ICP >20. Keep Na 155-160 due to high ICP. Restart 3% gtt and continue NS gtt CT angiogram done 04/14, 04/16/16 showed status post endovascular repair of left supraclinoid aneurysm, left M1 segment aneurysm stable no vasospasm. Continue with hypervolemia and hypertension for vasospasm prevention. Target SBP 180 for vasospasm prophylaxis. CV: Uncontrolled HTN, now permissive Target SBP 150-190 for vasospasm prophylaxis. Maintain preload, follow CVP, for hypervolemia. RESP: Acute respiratory failure HCAP PC/AC vent mode, adjust vent rate to keep EtCO2 30-35. Nebs prn and scheduled. Vent bundle. No vent weaning due to high ICP, severe encephalopathy : Rebollar required for hourly output. GI: Tube feeds to goal as tolerated, continue bowel regimen Lactulose to 30 ml q8. No BM yet. Dulcolax suppository PRN, Having BM HEME: Serial Hgb. ID: Severe sepsis HCAP with E Coli, Haemophilus Sputum cx EColi, haemophilus and blood cultures neg to date. Started on Zosyn 4.5 GM IV q6 04/15/16. Levaquin was added 04/16/16 to cover for Stenotrophomonas -DC today 04/19 Repeat panculture with blood urine and sputum cultures 04/17/16 negative to date CXR bilateral infiltrates, with leukocytosis and brown sputum ENDO: SSI for euglycemia, avoid hypokalemia, hypo Mag PX: SCDs. Protonix. Cleared by to use Lovenox for chemical DVT prophylaxis Overall impression: Severe SAH and left parenchymal bleed and ruptured aneurysm, with cerebral edema , elevated ICP. New HCAP and severe sepsis. Remains critically ill and prognosis guarded at best. Anticipate hospitalization > 4 weeks. Critical care 40 mins, d/w Dr. Meléndez, bedside RN Mary Enamorado MD Apr 19, 2016 13:06
[2016-04-19 15:16] LABS: BLOOD GAS BASE EXCESS -2.3 mmol/L (-2-2); BLOOD GAS CARBOXYHEMOGLOBIN 1.3 % (0-4); BLOOD GAS HCO3 22 mmol/L (22-26); BLOOD GAS METHEMOGLOBIN 0.9 % (0-2); BLOOD GAS O2 HGB SATURATION 94 % (90-100); BLOOD GAS OXYGEN CONTENT 11.2 Vol % (12.0-20.0); BLOOD GAS PCO2 39 mmHg (38-42); BLOOD GAS PO2 92 mmHg (61-120); BLOOD GAS TOTAL HGB 8.4 G/DL (12.0-16.0); CRITICAL VALUE NO; OXYGEN DEVICE VENTILATOR; TEMP CORR TO 98.6
[2016-04-19 15:17] LABS: DRAW SITE ALINE; FIO2 50 %; NUMBER OF ARTERIAL PUNCTURES 0; STAT NO; ULNAR PULSE PRESENT; VENT SETTINGS PC/AC
[2016-04-19] MEDS: LEVOFLOXACIN 750 MG PREMIX INJ 150 ML IV SCH (17:38)
[2016-04-19 22:20] LABS: BLOOD GAS BASE EXCESS -1.1 mmol/L (-2-2); BLOOD GAS CARBOXYHEMOGLOBIN 1.4 % (0-4); BLOOD GAS HCO3 23 mmol/L (22-26); BLOOD GAS METHEMOGLOBIN 0.7 % (0-2); BLOOD GAS O2 HGB SATURATION 96 % (90-100); BLOOD GAS OXYGEN CONTENT 11.1 Vol % (12.0-20.0); BLOOD GAS PCO2 33 mmHg (38-42); BLOOD GAS PO2 101 mmHg (61-120); BLOOD GAS TOTAL HGB 8.2 G/DL (12.0-16.0); CRITICAL VALUE NO; FIO2 50 %; OXYGEN DEVICE VENTILATOR; TEMP CORR TO 98.6; VENT SETTINGS PC/AC
[2016-04-19 22:21] LABS: DRAW SITE ART LINE; STAT NO
[2016-04-20] VITALS (19 sets, daily range): BP systolic 151–210; BP diastolic 69–89; PULSE 69–82; RESP 19; TEMP 97.7–100.1; O2SAT 91–100
[2016-04-20] MEDS: NS + KCL 20 MEQ INJ 1,000 ML IV SCH ×2 (00:12→18:02)
[2016-04-20] MEDS: niMODipine 30 MG CAP PO SCH ×7 (00:21→20:16)
[2016-04-20] MEDS: METOCLOPRAMIDE HCL SYRUP 10 MG/10 ML UDC PO SCH ×3 (00:21→16:03)
[2016-04-20] MEDS: CISATRACURIUM 100 MG/NS 250 ML IV SCH ×12 (00:24→20:23)
[2016-04-20] MEDS ORDERED: 3% SALINE INJ 500 ML IV SCH (00:30)
[2016-04-20] MEDS: METOPROLOL TARTRATE 25 MG TAB PO SCH ×4 (01:40→20:16)
[2016-04-20] MEDS: VANCOMYCIN INJ 1,500 MG in SODIUM CHLORID 0.9% 500 ML INJ 500 ML IV SCH ×2 (01:40→13:13)
[2016-04-20] MEDS: PIPERACIL-TAZO 4.5 GM PREMIX 100 ML IV SCH ×4 (01:40→20:15)
[2016-04-20] MEDS ORDERED: SODIUM CHLORIDE IV ONE (02:00)
[2016-04-20] MEDS: niCARdipine INJ 25 MG in SODIUM CHLOR 0.9% 250 ML INJ 250 ML IV SCH ×4 (02:48→14:45)
[2016-04-20 03:27] LABS: AUTOMATED NEUTROPHIL # 13.1 TH/MM3 (1.8-7.7); BASOPHIL # 0.1 TH/MM3 (0-0.2); BASOPHIL % 0.3 % (0.0-2.0); EOSINOPHIL # 0.5 TH/MM3 (0-0.4); EOSINOPHIL % 3.2 % (0.0-4.0); HEMATOCRIT 25.8 % (35.0-46.0); LYMPH % 10.4 % (9.0-44.0); LYMPHOCYTE # 1.7 TH/MM3 (1.0-4.8); MEAN CELL VOLUME 71.1 FL (80.0-100.0); MEAN CORPUSCULAR HEMOGLOBIN 22.8 PG (27.0-34.0); MONO % 6.4 % (0.0-8.0); NEUT % 79.7 % (16.0-70.0); PLATELET COUNT 250 TH/MM3 (150-450); RED BLOOD COUNT 3.62 MIL/MM3 (4.00-5.30); RED CELL DISTRIBUTION WIDTH 28.8 % (11.6-17.2); WHITE BLOOD COUNT 16.4 TH/MM3 (4.0-11.0)
[2016-04-20 03:28] LABS: HEMO FLAGS AUTO DIFF
[2016-04-20] MEDS: RESP: ALBUTEROL 2.5 MG/IPRATROPIUM 0.5 MG NEB (SCH) NEB ×4 (03:30→21:48)
[2016-04-20] MEDS ORDERED: niMODipine 30 MG CAP PO SCH (04:00)
[2016-04-20] MEDS: CHLORHEXIDINE GLUCONATE 2 % 1 PACK (2 CLOTHS) TOP SCH (04:00)
[2016-04-20 04:14] LABS: BANDS 2 % (0-6); CORRECTED NUCLEATED RBC 1 /100 WBC (0-0); EOSINOPHILS 6 % (0-4); METAMYELOCYTES 1 % (0-1); NEUTROPHIL # MANUAL DIFF 13.6 TH/MM3 (1.8-7.7); POLYS (SEG NEUTROPHILS) 80 % (16-70); WBC DIFF SAMPLE 100
[2016-04-20 04:16] LABS: KERATOCYTES OCC (NORMAL); OVALOCYTES 1+ (NORMAL); PLATELET ESTIMATE SMEAR NORMAL (NORMAL); PLATELET MORPHOLOGY NORMAL (NORMAL); SCAN/DIFF FINAL DIFF MANUAL; TARGET CELLS 1+ (NORMAL)
[2016-04-20] MEDS: MIDAZOLAM 100 MG/ML INJ 100 ML IV SCH ×2 (04:24→14:45)
[2016-04-20] MEDS: PROPOFOL 1000 MG/100 ML IV SCH ×5 (04:40→20:16)
[2016-04-20 05:00] LABS: ALKALINE PHOSPHATASE 136 U/L (45-117); ALT (GPT) 29 U/L (10-53); ANION GAP 6 MEQ/L (5-15); AST (GOT) 44 U/L (15-37); BICARBONATE 25.2 MEQ/L (21.0-32.0); BLOOD UREA NITROGEN 6 MG/DL (7-18); CHLORIDE 116 MEQ/L (98-107); GLOMERULAR FILTRATION RATE 163 ML/MIN (>89); POTASSIUM 3.6 MEQ/L (3.5-5.1); SODIUM (NA) 147 MEQ/L (136-145); TOTAL BILIRUBIN ADULT 0.5 MG/DL (0.2-1.0)
--- NOTE | 2016-04-20 06:00 | RADRPT ---
EXAM DATE/TIME: 04/20/2016 03:51 [facility] COMPARISON: CHEST SINGLE AP, April 19, 2016, 4:05. INDICATIONS : Respiratory Distress MEDICAL HISTORY : Unobtainable SURGICAL HISTORY : Unobtainable ENCOUNTER: Subsequent ACUITY: 2 weeks PAIN SCORE: Non-responsive. LOCATION: Bilateral chest FINDINGS: Endotracheal tube tip 2.5 cm above the ganesh. A subclavian catheter tip at the origin of the superi or vena cava. Gastric tube traverses the [id number]. There is persistent lobar consolidation lef t mid lower lung with loss of delineation of the entire left hemidiaphragm and lateral left heart bor kassandra. Hazy infiltrates in the right lower lung similar to prior. CONCLUSION: Persistent left lower lobe or consolidation and patchy infiltrates in the right lower lung. Kennedy Rodriguez MD on April 20, 2016 at 5:57 Board Certified Radiologist. This report was verified electronically.
--- NOTE | 2016-04-20 06:42 | HHI.NSPN ---
Subjective History Day 8 after coiling of large complex posterior communicating aneurysm, sedated and paralysed, CPP and EVD maintained. Her ICP have increased to 20-40 requiring increased MAP to 100-120. The EVD is still draining brownish CSF about 8-10cc/hr. Her pupils are still small and reactive. Vitals . Vital Signs Date Time Temp Pulse Resp B/P Pulse Ox O2 Delivery O2 Flow Rate FiO2 04/20/16 06:00 72 04/20/16 06:00 98.9 04/20/16 04:00 50 04/20/16 04:00 100.1 78 19 177/80 98 04/20/16 04:00 78 04/20/16 04:00 94 50 04/20/16 02:00 81 04/20/16 00:55 100 50 04/20/16 00:00 50 04/20/16 00:00 74 04/20/16 00:00 97.9 74 19 165/73 97 04/19/16 22:00 67 04/19/16 21:15 100 50 04/19/16 21:15 100 50 04/19/16 20:00 97.0 73 18 197/85 100 04/19/16 20:00 60 04/19/16 20:00 74 04/19/16 18:00 60 04/19/16 16:43 99 80 04/19/16 16:00 55 04/19/16 16:00 67 04/19/16 16:00 96.1 67 18 174/79 97 04/19/16 15:20 55 04/19/16 15:20 98 50 04/19/16 14:00 74 04/19/16 12:14 100 50 04/19/16 12:00 55 04/19/16 12:00 97.0 65 15 183/83 100 04/19/16 12:00 65 04/19/16 10:00 63 04/19/16 08:33 100 50 04/19/16 08:30 55 04/19/16 08:00 80 04/19/16 08:00 98.1 80 18 185/86 100 04/19/16 08:00 55 04/19/16 04/19/16 04/20/16 15:00 23:00 07:00 Intake Total 3678 ml 3212 ml 3422 ml Output Total 4396 ml 2866 ml 2928 ml Balance -718 ml 346 ml 494 ml Intracranial Pressure (mmHg): 20 Physical Exam Head Head Remarks Intubated, sedated, paralyzed Eyes Eyes: Pupils Equal Neuro Equal Sized Pupils (mm): 2 Pupils: Reactive Bilaterally Angelica Coma Scale Best Eye Openin - None Best Verbal: 1 - None Best Motor: 1 - None Cardiac Cardiac: Regular Rate & Rhythm Gastrointestinal Gastrointestinal: Soft (obese) Genitourinary Genitourinary: Rebollar Catheter In Place Musculoskeletal Extremities Upper Extremities Deltoid Bicep Tricep HI W. Ext Right Left Lower Extremeties Ilio Quad Plantar Dorsi EHL Right Left Extremities Edema: Edematous Objective Drains Ventric Draining: Bloody CSF Labs Laboratory Tests 04/19/16 14:45 04/19/16 23:14 04/20/16 03:00 Laboratory Tests Test 04/19/16 04/19/16 04/20/16 14:45 23:14 03:00 Sodium Level 148 MEQ/L 145 MEQ/L 147 MEQ/L Serum Osmolality 300 MOSM/KG 305 MOSM/KG Potassium Level 3.6 MEQ/L Chloride Level 116 MEQ/L Carbon Dioxide Level 25.2 MEQ/L Anion Gap 6 MEQ/L Blood Urea Nitrogen 6 MG/DL Creatinine 0.49 MG/DL Estimat Glomerular Filtration 163 ML/MIN Rate Random Glucose 118 MG/DL Calcium Level 8.1 MG/DL Total Bilirubin 0.5 MG/DL Aspartate Amino Transf 44 U/L (AST/SGOT) Alanine Aminotransferase 29 U/L (ALT/SGPT) Alkaline Phosphatase 136 U/L Total Protein 6.3 GM/DL Albumin 1.6 GM/DL Assessment & Plan Assessment Stable clinically, awaiting f/u CTA on Thursday. CPP maintained 76-83 in spite of of increased ICP . Keep MAP 100-120 at the present to allow for the nimodipine effect in the BP. Feeding and DVT prophylaxis per critical care service. Ok to use lovenox Kolby Morris Apr 20, 2016 06:42
[2016-04-20] MEDS: fentaNYL DRIP 250 ML IV SCH ×2 (07:42→17:22)
[2016-04-20] MEDS ORDERED: SODIUM CHLORIDE 23.4% INJ 240 MEQ in SYRINGE/BAG 1 EA IV STA (08:03)
[2016-04-20] MEDS: LACTULOSE SYRUP 20 GM/30 ML CUP PO SCH (08:19)
[2016-04-20] MEDS: levETIRAcetam 500MG PREMIX INJ 100 ML IV SCH ×2 (08:19→20:16)
[2016-04-20] MEDS: PANTOPRAZOLE SODIUM 40 MG VIAL IV SCH (08:20)
[2016-04-20] MEDS: SODIUM CHLORIDE 0.9% FLUSH 5 ML FLUSH IVF SCH ×2 (08:20→20:16)
[2016-04-20 09:07] LABS: BLOOD GAS BASE EXCESS -0.8 mmol/L (-2-2); BLOOD GAS CARBOXYHEMOGLOBIN 1.4 % (0-4); BLOOD GAS HCO3 23 mmol/L (22-26); BLOOD GAS METHEMOGLOBIN 0.8 % (0-2); BLOOD GAS O2 HGB SATURATION 87 % (90-100); BLOOD GAS OXYGEN CONTENT 10.2 Vol % (12.0-20.0); BLOOD GAS PCO2 38 mmHg (38-42); BLOOD GAS PO2 63 mmHg (61-120); BLOOD GAS TOTAL HGB 8.3 G/DL (12.0-16.0); TEMP CORR TO 98.6
[2016-04-20 09:08] LABS: CRITICAL VALUE YES; DRAW SITE ALINE; FIO2 50 %; NUMBER OF ARTERIAL PUNCTURES 0; OXYGEN DEVICE VENTILATOR; STAT NO; ULNAR PULSE PRESENT; VENT SETTINGS PC/AC
[2016-04-20] MEDS: ENOXAPARIN SODIUM 40 MG/0.4 ML SYRINGE SQ SCH (11:50)
--- NOTE | 2016-04-20 12:21 | HHI.CCPN ---
Subjective Remarks/Hospital Course SAH, unresponsive, malignant hypertension - This 46-year-old woman with a longstanding history of hypertension, was found unresponsive at her home and paramedics arrived to find her with shallow breathing and a Angelica coma scale of three. Systolic blood pressure was 290 and under bag mask ventilation. She was brought to the emergency department where she remained unresponsive and required endotracheal intubation, mechanical ventilation. A CT scan of the head showed a large left hemispheric intraparenchymal hemorrhage with subarachnoid blood as well. Subsequent evaluation confirmed a left middle cerebral artery aneurysm which appears to be the culprit lesion. She was brought immediately to the [facility] where we continued Cardene drip infusion for blood pressure control and placed arterial monitoring lines and central venous line. Electrolyte abnormalities were corrected, particularly severe hypokalemia. The ventilator was adjusted to maintain arterial CO2, between 35 and 40. She received Keppra loading intravenously and Nimotop through the nasogastric tube. Usual ICU monitoring was in place and arrangements were made, a ventriculostomy was placed, and transported expeditiously to interventional radiology where attempts will be made to coil the aneurysm. 04/12: Culprit (larger) aneurysm was coiled last evening. ICP acceptable with drainage bloody as expected. Withdraws 4 limbs to pain. 04/13: ICP starting to rise > 20, requiring vent manipulation, increased sedation, analgesia. 04/14: Intermittently ICP spiking >20, RR increased to 18, 50 mg of rocuronium 1. CT angiogram done today to rule out vasospasm 04/15: Remains heavily sedated for ICP control. Overall ICP control improved overnight-remained 12-14. Currently on propofol fentanyl and Versed. CT angiogram done yesterday 04/14/16 showed status post endovascular repair of left supraclinoid aneurysm, left M1 segment aneurysm stable no vasospasm. 04/16: Remains hypoxemic, FiO2 had to be increased to 70%, now down to 60%. Chest x-ray shows increasing right lower lobe infiltrate sputum with gram- negative rods. Blood pressure remains at target 04/17: ICP remains elevated at 22-25. Became hypothermic overnight, likely related to worsening sepsis. Repeat panculture ordered, and vancomycin 04/18: Labile hypertension. Start patient limits expanded to 150-190 systolic. Became more hypoxic now on 90% FiO2. Chest x-ray shows slight increase in right lower lobe infiltrate. Sodium at target 04/19: Remains critically ill with intermittent ICP elevation. ABG shows respiratory alkalosis, minute ventilation reduce which caused ICP to increase further. 3% saline restarted and 23% saline 1 bolus ordered. Chest x-ray shows slight improvement in the right lower lung infiltrate 04/20: ICP elevated to 31, 23% bolus given with improvement to 12-15. Low-grade fever with increase in white count to 16.4. Will send panculture. CTA brain in am Objective - Vital Signs Date Time Temp Pulse Resp B/P Pulse Ox O2 Delivery O2 Flow Rate FiO2 04/20/16 12:07 93 55 04/20/16 12:00 98.1 73 19 210/89 Intake and Output 04/19/16 04/19/16 04/20/16 08:00 16:00 00:00 Intake Total 3503 ml 3678 ml 3212 ml Output Total 3175.0 ml 4396.0 ml 2866.0 ml Balance 328.0 ml -718.0 ml 346.0 ml Result Diagram: 04/20/16 0300 04/20/16 0700 Other Results Laboratory Tests Test 04/11/16 04/11/16 04/12/16 13:06 20:44 05:58 Blood Gas Puncture Site ART LINE ART LINE ART LINE Blood Gas Patient Temperature 98.6 98.6 98.6 Blood Gas HCO3 20 mmol/L 21 mmol/L 19 mmol/L (22-26) (22-26) (22-26) Blood Gas Base Excess -4.2 mmol/L -3.1 mmol/L -4.9 mmol/L (-2-2) (-2-2) (-2-2) Blood Gas Oxygen Saturation 98 % (90-100) 98 % (90-100) 97 % (90-100) Arterial Blood pH 7.40 7.42 7.42 (7.380-7.420) (7.380-7.420) (7.380-7.420) Arterial Blood Partial 33 mmHg (38-42) 33 mmHg (38-42) 30 mmHg (38-42) Pressure CO2 Arterial Blood Partial 372 mmHg 450 mmHg 135 mmHg Pressure O2 (61-120) (61-120) (61-120) Arterial Blood Oxygen Content 11.0 Vol % 10.2 Vol % 15.4 Vol % (12.0-20.0) (12.0-20.0) (12.0-20.0) Arterial Blood 1.5 % (0-4) 1.4 % (0-4) 1.3 % (0-4) Carboxyhemoglobin Arterial Blood Methemoglobin 1.2 % (0-2) 1.2 % (0-2) 1.1 % (0-2) Blood Gas Hemoglobin 7.3 G/DL 6.5 G/DL 11.2 G/DL (12.0-16.0) (12.0-16.0) (12.0-16.0) Oxygen Delivery Device VENT VENTILATOR VENTILATOR Blood Gas Ventilator Setting PRVC/20RATE/500/5PEE PRVC/AC PRVC/AC Blood Gas Inspired Oxygen 100 % 100 % 40 % Objective Remarks Infusions Propofol Fentanyl Versed Nimbex GEN: Middle-aged female who is intubated heavily sedated, critically ill HEENT: Head: Atraumatic. EVD in place, 250 ml in 24 hours. Pupils 2mm nonreactive. Tongue swollen and protuberant NECK: Supple. No resistance to motion. Orally intubated. LUNGS: Clear, no wheezes or crackles. HEART: Normal S1-S2, tachycardia, no murmur or rub, neck veins are distended. ABDOMEN: Soft, nontender, nondistended, no guarding, bowel sounds present. EXTREMITIES: Warm, well-perfused, foot and wrist pulses intact. NEUROLOGIC: Pupils 2 mm nonreactive. Neuromuscular paralysis limits exam. ICP up to 30 prior to 23 % saline. EVD draining bloody CSF at 5cmH20 Urinary Catheter: Yes Assessment to: Continue Vascular Central Line Catheter: Yes Assessment to: Continue A/P Assessment and Plan Acute subarachnoid hemorrhage, left middle cerebral artery aneurysm Intracranial hypertension Acute respiratory failure on mechanical ventilation RLL pneumonia/E Coli in sputum Sepsis Acute encephalopathy Malignant hypertension Status post coiling of MCA aneurysm Hypokalemia History of hypertension Lactic acidosis PLAN: NEURO: Acute subarachnoid hemorrhage, left middle cerebral artery aneurysm Intracranial hypertension Acute encephalopathy Sedation/analgesia (Propofol, Versed and Fentanyl) to help control ICP. Mild hypervolemia using CVP. Continue Ventricular drain. Keppra, Nimotop. Treat fever aggressively. NM paralysis with Nimbex for ICP control 23% PRN for ICP >20. Keep Na 150-160 due to high ICP. Restarted 3% gtt and continue NS gtt. Avoid hypoxia, hypercarbia CT angiogram done 04/14, 04/16/16 showed status post endovascular repair of left supraclinoid aneurysm, left M1 segment aneurysm stable no vasospasm. Repeat CTA Continue with hypervolemia and hypertension for vasospasm prevention. Target SBP 180 for vasospasm prophylaxis. Continue Nimotop CV: Uncontrolled HTN, now permissive Target SBP 150-190 for vasospasm prophylaxis. Maintain preload, follow CVP, for hypervolemia. Use Levophed PRN RESP: Acute respiratory failure HCAP PC/AC vent mode, adjust vent rate to keep EtCO2 30-35. Nebs prn and scheduled. Vent bundle. No vent weaning due to high ICP, severe encephalopathy Tracheostomy once ICP adequately controlled and cleared by N/S : Rebollar required for hourly output. GI: Tube feeds to goal as tolerated, continue bowel regimen Lactulose to 30 ml q8. Dulcolax suppository PRN, Having BM HEME: Serial Hgb. Monitor CBC ID: Severe sepsis HCAP with E Coli, Haemophilus Sputum cx EColi, haemophilus and blood cultures neg to date. Started on Zosyn 4.5 GM IV q6 04/15/16. Levaquin was added 04/16/16 to cover for Stenotrophomonas -DCd 04/19, restart again today Repeat panculture with blood urine and sputum cultures 04/17/16 negative to date CXR bilateral infiltrates, with leukocytosis and brown sputum Resend cultures due to low grade fever and increased WBC ENDO: SSI for euglycemia, avoid hypokalemia, hypo Mag PX: SCDs. Protonix. Cleared by to use Lovenox for chemical DVT prophylaxis on 04/19/16 Overall impression: Severe SAH and left parenchymal bleed and ruptured aneurysm, with cerebral edema , elevated ICP. New HCAP and severe sepsis. Remains critically ill and prognosis guarded at best. Anticipate hospitalization > 4 weeks. Critical care 40 mins, d/w Dr. Morris, bedside RN Mary Enamorado MD Apr 20, 2016 12:21
[2016-04-20 12:59] LABS: MAGNESIUM 2.6 MG/DL (1.5-2.5)
[2016-04-20] MEDS ORDERED: LEVOFLOXACIN 750 MG PREMIX INJ 150 ML IV SCH (13:00)
[2016-04-20] MEDS ORDERED: SODIUM CHLOR 0.9% 250 ML INJ 250 ML ONE ×2 (14:07→14:44)
[2016-04-20] MEDS: 3% SALINE INJ 500 ML IV SCH (15:29)
[2016-04-20] MEDS: SODIUM CHLORIDE 23.4% INJ 240 MEQ in SYRINGE/BAG 1 EA IV PRN (15:42)
[2016-04-20] MEDS: LEVOFLOXACIN 750 MG PREMIX INJ 150 ML IV SCH (17:22)
[2016-04-21] VITALS (19 sets, daily range): BP systolic 149–194; BP diastolic 72–93; PULSE 74–84; RESP 19; TEMP 97.8–98.8; O2SAT 93–100
[2016-04-21] MEDS: METOCLOPRAMIDE HCL SYRUP 10 MG/10 ML UDC PO SCH ×3 (00:07→16:46)
[2016-04-21] MEDS: niMODipine 30 MG CAP PO SCH ×6 (00:07→20:10)
[2016-04-21] MEDS: SODIUM CHLORIDE 23.4% INJ 240 MEQ in SYRINGE/BAG 1 EA IV PRN ×4 (00:18→23:31)
[2016-04-21] MEDS: CISATRACURIUM 100 MG/NS 250 ML IV SCH ×4 (00:18→08:27)
[2016-04-21] MEDS ORDERED: 3% SALINE INJ 500 ML IV SCH (00:30)
[2016-04-21] MEDS: 3% SALINE INJ 500 ML IV SCH ×3 (00:47→17:57)
[2016-04-21] MEDS: PROPOFOL 1000 MG/100 ML IV SCH ×6 (00:48→20:11)
[2016-04-21] MEDS: niCARdipine INJ 25 MG in SODIUM CHLOR 0.9% 250 ML INJ 250 ML IV SCH ×4 (01:30→21:50)
[2016-04-21] MEDS: MIDAZOLAM 100 MG/ML INJ 100 ML IV SCH ×3 (02:01→21:50)
[2016-04-21] MEDS: METOPROLOL TARTRATE 25 MG TAB PO SCH ×4 (02:02→20:10)
[2016-04-21] MEDS: NS + KCL 20 MEQ INJ 1,000 ML IV SCH ×3 (02:02→21:49)
[2016-04-21] MEDS: PIPERACIL-TAZO 4.5 GM PREMIX 100 ML IV SCH ×4 (02:02→20:11)
[2016-04-21] MEDS: VANCOMYCIN INJ 1,500 MG in SODIUM CHLORID 0.9% 500 ML INJ 500 ML IV SCH ×2 (02:02→13:14)
[2016-04-21] MEDS: fentaNYL DRIP 250 ML IV SCH ×3 (02:02→21:50)
[2016-04-21] MEDS: CHLORHEXIDINE GLUCONATE 2 % 1 PACK (2 CLOTHS) TOP SCH (03:28)
[2016-04-21] MEDS: RESP: ALBUTEROL 2.5 MG/IPRATROPIUM 0.5 MG NEB (SCH) NEB ×4 (04:12→20:45)
[2016-04-21 05:22] LABS: AUTOMATED NEUTROPHIL # 10.1 TH/MM3 (1.8-7.7); BASOPHIL # 0.1 TH/MM3 (0-0.2); BASOPHIL % 0.5 % (0.0-2.0); EOSINOPHIL # 0.5 TH/MM3 (0-0.4); EOSINOPHIL % 3.8 % (0.0-4.0); HEMATOCRIT 23.8 % (35.0-46.0); LYMPH % 15.5 % (9.0-44.0); LYMPHOCYTE # 2.1 TH/MM3 (1.0-4.8); MEAN CELL VOLUME 70.9 FL (80.0-100.0); MEAN CORPUSCULAR HEMOGLOBIN 22.4 PG (27.0-34.0); MEAN CORPUSCULAR HGB CONC 31.6 % (32.0-36.0); MONO % 7.1 % (0.0-8.0); NEUT % 73.1 % (16.0-70.0); PLATELET COUNT 221 TH/MM3 (150-450); RED BLOOD COUNT 3.35 MIL/MM3 (4.00-5.30); RED CELL DISTRIBUTION WIDTH 28.6 % (11.6-17.2); WHITE BLOOD COUNT 13.8 TH/MM3 (4.0-11.0)
[2016-04-21 05:23] LABS: HEMO FLAGS AUTO DIFF
[2016-04-21 05:54] LABS: ALKALINE PHOSPHATASE 118 U/L (45-117); ALT (GPT) 30 U/L (10-53); ANION GAP 7 MEQ/L (5-15); AST (GOT) 38 U/L (15-37); BLOOD UREA NITROGEN 6 MG/DL (7-18); CHLORIDE 122 MEQ/L (98-107); GLOMERULAR FILTRATION RATE 152 ML/MIN (>89); MAGNESIUM 1.5 MG/DL (1.5-2.5); POTASSIUM 3.3 MEQ/L (3.5-5.1); SODIUM (NA) 153 MEQ/L (136-145); TOTAL BILIRUBIN ADULT 0.4 MG/DL (0.2-1.0)
--- NOTE | 2016-04-21 06:24 | RADRPT ---
EXAM DATE/TIME: 04/21/2016 04:15 [facility] COMPARISON: CHEST SINGLE AP, April 20, 2016, 3:51. INDICATIONS : Shortness of breath. MEDICAL HISTORY : None. SURGICAL HISTORY : None. ENCOUNTER: Subsequent ACUITY: 2 weeks PAIN SCORE: Non-responsive. LOCATION: Bilateral chest FINDINGS: The support devices remain in place. There is no pneumothorax. There continue to be patchy infiltrate s in both lower lungs. These infiltrates are about the same compared to the prior examination. The [place] structures are stable. CONCLUSION: Bibasilar infiltrates not significantly changed compared to the prior exam. Alfosno Escoto MD on April 21, 2016 at 6:21 Board Certified Radiologist. This report was verified electronically.
[2016-04-21] MEDS: POTASSIUM CHLOR 40 MEQ PREMIX 100 ML IV PRN (06:33)
[2016-04-21 07:51] LABS: OVALOCYTES 1+ (NORMAL); SCAN/DIFF AUTO DIFF CONFIRMED
[2016-04-21] MEDS: PANTOPRAZOLE SODIUM 40 MG VIAL IV SCH (07:54)
[2016-04-21] MEDS: LACTULOSE SYRUP 20 GM/30 ML CUP PO SCH (07:55)
[2016-04-21] MEDS: SODIUM CHLORIDE 0.9% FLUSH 5 ML FLUSH IVF SCH ×2 (07:55→20:11)
[2016-04-21] MEDS: levETIRAcetam 500MG PREMIX INJ 100 ML IV SCH ×2 (08:11→20:11)
[2016-04-21] MEDS: MAGNESIUM SULFATE INJ 2 GM in SODIUM CHLORIDE 0.9% INJ 96 ML IV PRN (08:27)
[2016-04-21 09:14] LABS: BLOOD GAS BASE EXCESS -0.5 mmol/L (-2-2); BLOOD GAS CARBOXYHEMOGLOBIN 1.5 % (0-4); BLOOD GAS HCO3 23 mmol/L (22-26); BLOOD GAS METHEMOGLOBIN 0.8 % (0-2); BLOOD GAS O2 HGB SATURATION 96 % (90-100); BLOOD GAS OXYGEN CONTENT 10.3 Vol % (12.0-20.0); BLOOD GAS PCO2 31 mmHg (38-42); BLOOD GAS PO2 103 mmHg (61-120); BLOOD GAS TOTAL HGB 7.5 G/DL (12.0-16.0); TEMP CORR TO 98.6
[2016-04-21 09:15] LABS: CRITICAL VALUE NO; OXYGEN DEVICE VENTILATOR
[2016-04-21 09:16] LABS: DRAW SITE ART LINE; FIO2 55 %; STAT NO; ULNAR PULSE PRESENT
--- NOTE | 2016-04-21 10:16 | HHI.NSPN ---
(Genna Madrid) History Chief Complaint: status post coil for aneurysm (Genna Madrid) Interval History 04/12/16: Patient had an aneurysm coiled yesterday, intubated and sedated, ICP stable overnight 04/13/16: Increased ICP overnight, improved after a 23% saline bolus 04/14/16: ICP stable overnight 04/15/16: ICP stable, CTA stable no vasospasm 04/16/16: ICP slight increase overnight now stabilized, intubated and sedated 04/17/16: ICP increased yesterday afternoon, repeat CTA and CT stable, no vasospasm, no new hemorrhage, hypothermia overnight 04/21/16: increasing ICP over the weekend, getting 23% every 6 hours PRN. ( Genna Madrid) Exam Results Vital Signs Date Time Temp Pulse Resp B/P Pulse Ox O2 Delivery O2 Flow Rate FiO2 04/21/16 08:25 100 55 04/21/16 08:00 98.2 83 19 159/73 Intake and Output 04/20/16 04/20/16 04/21/16 08:00 16:00 00:00 Intake Total 3422 ml 3188 ml 3254 ml Output Total 2928.0 ml 3215.0 ml 3873.0 ml Balance 494.0 ml -27.0 ml -619.0 ml (Genna Madrid) Physical Examination Intubated, sedated and paralyzed. No spontaneous eye opening. Absent disconjugate oculocephalics. Pupils are 2 mm and non-reactive. Right eye lateral gaze. Persistent angioedema. ICP 6 CPP 100 EVD draining bloody CSF at 5cmH20. (Genna Madrid) Lab, Micro, Other Results Last Impressions Chest X-Ray 04/21/16 0600 Signed Impressions: Service Date/Time: Thursday, April 21, 2016 04:15 - CONCLUSION: Bibasilar infiltrates not significantly changed compared to the prior exam. Alfonso Escoto MD Head CTA 04/16/16 0000 Signed Impressions: Service Date/Time: Saturday, April 16, 2016 17:40 - CONCLUSION: 1. No significant vasospasm identified. Status post endovascular repair left supraclinoid aneurysm. Left M1 segment aneurysm stable. Quinn Bateman MD Head CT 04/16/16 0000 Signed Impressions: Service Date/Time: Saturday, April 16, 2016 17:40 - CONCLUSION: Evolving left frontotemporal parenchymal hematoma and subarachnoid and intraventricular blood as described. No new acute findings. Fei Snyder MD Neck CTA 04/11/16 1151 Signed Impressions: Service Date/Time: Monday, April 11, 2016 12:01 - CONCLUSION: Negative for hemodynamically significant carotid stenosis. Ricardo Castellanos MD FACR Cerebral Arteriogram 04/11/16 0000 Signed Impressions: Service Date/Time: Monday, April 11, 2016 14:18 - CONCLUSION: 1. 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 This is the aneurysm felt responsible for the intracranial hemorrhage. 2. Small 4 mm left M1 segment aneurysm. Attempts at embolizing this aneurysm were unsuccessful due to the broad based nature of the aneurysm. Endovascular repair of this aneurysm could not be performed. Kennedy Thibodeaux Jr., MD Laboratory Tests Test 04/20/16 04/20/16 04/21/16 04/21/16 12:00 18:15 00:00 05:00 Sodium Level 148 MEQ/L 150 MEQ/L 149 MEQ/L 153 MEQ/L Serum Osmolality 307 MOSM/KG 311 MOSM/KG 308 MOSM/KG 312 MOSM/KG Phosphorus Level 2.5 MG/DL Magnesium Level 2.6 MG/DL 1.5 MG/DL Thyroid Stimulating Hormone 0.909 uIU/ML 3rd Gen White Blood Count 13.8 TH/MM3 Red Blood Count 3.35 MIL/MM3 Hemoglobin 7.5 GM/DL Hematocrit 23.8 % Mean Corpuscular Volume 70.9 FL Mean Corpuscular Hemoglobin 22.4 PG Mean Corpuscular Hemoglobin 31.6 % Concent Red Cell Distribution Width 28.6 % Platelet Count 221 TH/MM3 Mean Platelet Volume 8.5 FL Neutrophils (%) (Auto) 73.1 % Lymphocytes (%) (Auto) 15.5 % Monocytes (%) (Auto) 7.1 % Eosinophils (%) (Auto) 3.8 % Basophils (%) (Auto) 0.5 % Neutrophils # (Auto) 10.1 TH/MM3 Lymphocytes # (Auto) 2.1 TH/MM3 Monocytes # (Auto) 1.0 TH/MM3 Eosinophils # (Auto) 0.5 TH/MM3 Basophils # (Auto) 0.1 TH/MM3 CBC Comment AUTO DIFF Differential Comment AUTO DIFF CONFIRMED Ovalocytes 1+ Potassium Level 3.3 MEQ/L Chloride Level 122 MEQ/L Carbon Dioxide Level 24.0 MEQ/L Anion Gap 7 MEQ/L Blood Urea Nitrogen 6 MG/DL Creatinine 0.52 MG/DL Estimat Glomerular Filtration 152 ML/MIN Rate Random Glucose 118 MG/DL Calcium Level 7.9 MG/DL Total Bilirubin 0.4 MG/DL Aspartate Amino Transf 38 U/L (AST/SGOT) Alanine Aminotransferase 30 U/L (ALT/SGPT) Alkaline Phosphatase 118 U/L Total Protein 5.8 GM/DL Albumin 1.4 GM/DL Test 04/21/16 09:00 Blood Gas Puncture Site ART LINE Blood Gas Patient Temperature 98.6 Blood Gas HCO3 23 mmol/L Blood Gas Base Excess -0.5 mmol/L Blood Gas Oxygen Saturation 96 % Arterial Blood pH 7.47 Arterial Blood Partial 31 mmHg Pressure CO2 Arterial Blood Partial 103 mmHg Pressure O2 Arterial Blood Oxygen Content 10.3 Vol % Arterial Blood 1.5 % Carboxyhemoglobin Arterial Blood Methemoglobin 0.8 % Blood Gas Hemoglobin 7.5 G/DL Oxygen Delivery Device VENTILATOR Blood Gas Liter Flow L/M Blood Gas Inspired Oxygen 55 % (Genna Madrid) Medical Decision Making Impression and Plan Impression: 1. S/P endovascular coiling of ruptured cerebral aneurysm. 04/14/16 CT angiogram stable: Status post endovascular repair of left supraclinoid aneurysm. Left M1 segment aneurysm stable 04/16/[address] and CTA stable. No vasospasm, no new hemorrhage. Plan: Repeat Head CT and CTA tomm. Continue ventilatory support and sedation. Lower ventriculostomy at 0cmH20 Nimodipine for vasospasm prophylaxis. Maintain systolic blood pressure 160-180 range Continue to monitor sodium level, keep 145-155 range. Bottom Cementer following for medical management Keppra for seizure prophylaxis. Protonix for ulcer prophylaxis Ok for Lovenox Discussed with RN at bedside. (Genna Madrid) Attending Statement The exam, history, and the medical decision-making described in the above note were completed with the assistance of the mid-level provider. I reviewed and agree with the findings presented. I attest that I had a [id number] encounter with the patient on the same day, and personally performed and documented my assessment and findings in the medical record. (Ty Miranda MD) Genna Madrid Apr 21, 2016 10:16 Ty Miranda MD Apr 27, 2016 20:03
[2016-04-21] MEDS: ENOXAPARIN SODIUM 40 MG/0.4 ML SYRINGE SQ SCH (12:12)
--- NOTE | 2016-04-21 15:51 | HHI.CCPN ---
Subjective Remarks/Hospital Course SAH, unresponsive, malignant hypertension - This 46-year-old woman with a longstanding history of hypertension, was found unresponsive at her home and paramedics arrived to find her with shallow breathing and a Angelica coma scale of three. Systolic blood pressure was 290 and under bag mask ventilation. She was brought to the emergency department where she remained unresponsive and required endotracheal intubation, mechanical ventilation. A CT scan of the head showed a large left hemispheric intraparenchymal hemorrhage with subarachnoid blood as well. Subsequent evaluation confirmed a left middle cerebral artery aneurysm which appears to be the culprit lesion. She was brought immediately to the [facility] where we continued Cardene drip infusion for blood pressure control and placed arterial monitoring lines and central venous line. Electrolyte abnormalities were corrected, particularly severe hypokalemia. The ventilator was adjusted to maintain arterial CO2, between 35 and 40. She received Keppra loading intravenously and Nimotop through the nasogastric tube. Usual ICU monitoring was in place and arrangements were made, a ventriculostomy was placed, and transported expeditiously to interventional radiology where attempts will be made to coil the aneurysm. 04/12: Culprit (larger) aneurysm was coiled last evening. ICP acceptable with drainage bloody as expected. Withdraws 4 limbs to pain. 04/13: ICP starting to rise > 20, requiring vent manipulation, increased sedation, analgesia. 04/14: Intermittently ICP spiking >20, RR increased to 18, 50 mg of rocuronium 1. CT angiogram done today to rule out vasospasm 04/15: Remains heavily sedated for ICP control. Overall ICP control improved overnight-remained 12-14. Currently on propofol fentanyl and Versed. CT angiogram done yesterday 04/14/16 showed status post endovascular repair of left supraclinoid aneurysm, left M1 segment aneurysm stable no vasospasm. 04/16: Remains hypoxemic, FiO2 had to be increased to 70%, now down to 60%. Chest x-ray shows increasing right lower lobe infiltrate sputum with gram- negative rods. Blood pressure remains at target 04/17: ICP remains elevated at 22-25. Became hypothermic overnight, likely related to worsening sepsis. Repeat panculture ordered, and vancomycin 04/18: Labile hypertension. Start patient limits expanded to 150-190 systolic. Became more hypoxic now on 90% FiO2. Chest x-ray shows slight increase in right lower lobe infiltrate. Sodium at target 04/19: Remains critically ill with intermittent ICP elevation. ABG shows respiratory alkalosis, minute ventilation reduce which caused ICP to increase further. 3% saline restarted and 23% saline 1 bolus ordered. Chest x-ray shows slight improvement in the right lower lung infiltrate 04/20: ICP elevated to 31, 23% bolus given with improvement to 12-15. Low-grade fever with increase in white count to 16.4. Will send panculture. CTA brain in am 04/21: Remains critically ill with intermittent ICP elevation. ICP controlled with 23% bolus. Keeping sodium 150-160. CT head, CTA 04/22/16 Objective - Vital Signs Date Time Temp Pulse Resp B/P Pulse Ox O2 Delivery O2 Flow Rate FiO2 04/21/16 14:00 77 04/21/16 13:06 100 50 04/21/16 12:00 97.8 19 158/73 Intake and Output 04/20/16 04/20/16 04/21/16 08:00 16:00 00:00 Intake Total 3422 ml 3188 ml 3254 ml Output Total 2928.0 ml 3215.0 ml 3873.0 ml Balance 494.0 ml -27.0 ml -619.0 ml Result Diagram: 04/21/16 0500 04/21/16 1140 Other Results Laboratory Tests Test 04/11/16 04/11/16 04/12/16 13:06 20:44 05:58 Blood Gas Puncture Site ART LINE ART LINE ART LINE Blood Gas Patient Temperature 98.6 98.6 98.6 Blood Gas HCO3 20 mmol/L 21 mmol/L 19 mmol/L (22-26) (22-26) (22-26) Blood Gas Base Excess -4.2 mmol/L -3.1 mmol/L -4.9 mmol/L (-2-2) (-2-2) (-2-2) Blood Gas Oxygen Saturation 98 % (90-100) 98 % (90-100) 97 % (90-100) Arterial Blood pH 7.40 7.42 7.42 (7.380-7.420) (7.380-7.420) (7.380-7.420) Arterial Blood Partial 33 mmHg (38-42) 33 mmHg (38-42) 30 mmHg (38-42) Pressure CO2 Arterial Blood Partial 372 mmHg 450 mmHg 135 mmHg Pressure O2 (61-120) (61-120) (61-120) Arterial Blood Oxygen Content 11.0 Vol % 10.2 Vol % 15.4 Vol % (12.0-20.0) (12.0-20.0) (12.0-20.0) Arterial Blood 1.5 % (0-4) 1.4 % (0-4) 1.3 % (0-4) Carboxyhemoglobin Arterial Blood Methemoglobin 1.2 % (0-2) 1.2 % (0-2) 1.1 % (0-2) Blood Gas Hemoglobin 7.3 G/DL 6.5 G/DL 11.2 G/DL (12.0-16.0) (12.0-16.0) (12.0-16.0) Oxygen Delivery Device VENT VENTILATOR VENTILATOR Blood Gas Ventilator Setting PRVC/20RATE/500/5PEE PRVC/AC PRVC/AC Blood Gas Inspired Oxygen 100 % 100 % 40 % Objective Remarks Infusions Propofol Fentanyl Versed Nimbex-DCd today GEN: Middle-aged female who is intubated heavily sedated, critically ill HEENT: Head: Atraumatic. EVD in place, 217 ml in 24 hours. Pupils 2mm nonreactive. Tongue swollen and protuberant NECK: Supple. No resistance to motion. Orally intubated. LUNGS: Clear, no wheezes or crackles. HEART: Normal S1-S2, tachycardia, no murmur or rub, neck veins are distended. ABDOMEN: Soft, nontender, nondistended, no guarding, bowel sounds present. EXTREMITIES: Warm, well-perfused, foot and wrist pulses intact. NEUROLOGIC: Pupils 2 mm nonreactive. Neuromuscular paralysis limits exam. ICP 15-20. EVD draining bloody CSF at 5cmH20 Urinary Catheter: Yes Assessment to: Continue Vascular Central Line Catheter: Yes Assessment to: Continue A/P Assessment and Plan Acute subarachnoid hemorrhage, left middle cerebral artery aneurysm Intracranial hypertension Acute respiratory failure on mechanical ventilation RLL pneumonia/E Coli in sputum Sepsis Acute encephalopathy Malignant hypertension Status post coiling of MCA aneurysm Hypokalemia History of hypertension Lactic acidosis PLAN: NEURO: Acute subarachnoid hemorrhage, left middle cerebral artery aneurysm Intracranial hypertension Acute encephalopathy Sedation/analgesia (Propofol, Versed and Fentanyl) to help control ICP. Mild hypervolemia using CVP. Continue Ventricular drain. Jenna Baca. Treat fever aggressively. NM paralysis with Nimbex for ICP control-DCd today 04/21/16 23% PRN for ICP >20. Keep Na 150-160 due to high ICP. Continue 3% gtt and continue NS gtt. Avoid hypoxia, hypercarbia CT angiogram done 04/14, 04/16/16 showed status post endovascular repair of left supraclinoid aneurysm, left M1 segment aneurysm stable no vasospasm. Repeat CTA 04/22/16. No sedation vacation Continue with hypervolemia and hypertension for vasospasm prevention. Target SBP 180 for vasospasm prophylaxis. Continue Nimotop CV: Uncontrolled HTN, now permissive Target SBP 150-190 for vasospasm prophylaxis. Maintain preload, follow CVP, for hypervolemia. Use Levophed PRN RESP: Acute respiratory failure HCAP PC/AC vent mode, adjust vent rate to keep EtCO2 30-35. Nebs prn and scheduled. Vent bundle. No vent weaning due to high ICP, severe encephalopathy Tracheostomy once ICP adequately controlled and cleared by N/S : Rebollar required for hourly output. Keep up more than 30 mL per hour GI: Tube feeds to goal as tolerated, continue bowel regimen Lactulose to 30 ml q8. Dulcolax suppository PRN, Having BM HEME: Serial Hgb. Monitor CBC ID: Severe sepsis HCAP with E Coli, Haemophilus Sputum cx EColi, haemophilus and blood cultures neg to date. On Zosyn 4.5 GM IV q6 04/15/16. Levaquin was added 04/16/16 to cover for Stenotrophomonas -DCd 04/19, restarted again today Repeat panculture with blood urine and sputum cultures 04/17/16 negative to date CXR bilateral infiltrates, with leukocytosis and brown sputum Resend cultures due to low grade fever and increased WBC 04/20 -NEG to date ENDO: SSI for euglycemia, avoid hypokalemia, hypo Mag PX: SCDs. Protonix. Cleared by to use Lovenox for chemical DVT prophylaxis on 04/19/16 Overall impression: Severe SAH and left parenchymal bleed and ruptured aneurysm, with cerebral edema , elevated ICP. New HCAP and severe sepsis. Remains critically ill and prognosis guarded at best. Anticipate hospitalization > 4 weeks. Critical care 35 mins, d/w Dr. Miranda, bedside RN Mary Enamorado MD Apr 21, 2016 15:51
[2016-04-21] MEDS: LEVOFLOXACIN 750 MG PREMIX INJ 150 ML IV SCH (18:34)
[2016-04-22] VITALS (18 sets, daily range): BP systolic 155–201; BP diastolic 70–99; PULSE 81–110; RESP 17–19; TEMP 98.6–99.1; O2SAT 97–100
[2016-04-22] MEDS: 3% SALINE INJ 500 ML IV SCH ×3 (00:13→18:20)
[2016-04-22] MEDS: niMODipine 30 MG CAP PO SCH ×6 (00:13→20:32)
[2016-04-22] MEDS: PROPOFOL 1000 MG/100 ML IV SCH ×6 (01:44→20:31)
[2016-04-22] MEDS: METOCLOPRAMIDE HCL SYRUP 10 MG/10 ML UDC PO SCH ×3 (01:44→17:07)
[2016-04-22] MEDS: niCARdipine INJ 25 MG in SODIUM CHLOR 0.9% 250 ML INJ 250 ML IV SCH ×5 (01:45→18:20)
[2016-04-22] MEDS: METOPROLOL TARTRATE 25 MG TAB PO SCH ×4 (01:52→20:32)
[2016-04-22] MEDS: VANCOMYCIN INJ 1,500 MG in SODIUM CHLORID 0.9% 500 ML INJ 500 ML IV SCH ×2 (01:52→13:36)
[2016-04-22] MEDS: RESP: ALBUTEROL 2.5 MG/IPRATROPIUM 0.5 MG NEB (SCH) NEB ×2 (02:08→08:40)
[2016-04-22] MEDS: PIPERACIL-TAZO 4.5 GM PREMIX 100 ML IV SCH ×4 (02:42→20:31)
[2016-04-22] MEDS: MIDAZOLAM 100 MG/ML INJ 100 ML IV SCH ×2 (03:28→08:48)
[2016-04-22] MEDS: CHLORHEXIDINE GLUCONATE 2 % 1 PACK (2 CLOTHS) TOP SCH (03:29)
[2016-04-22] MEDS: fentaNYL DRIP 250 ML IV SCH ×2 (03:29→08:48)
--- NOTE | 2016-04-22 05:38 | RADRPT ---
EXAM DATE/TIME: 04/22/2016 04:03 [place] COMPARISON: CHEST SINGLE AP, April 21, 2016, 4:15. INDICATIONS : Shortness of breath. MEDICAL HISTORY : None. SURGICAL HISTORY : None. ENCOUNTER: Subsequent ACUITY: 1 week PAIN SCORE: Non-responsive. LOCATION: Bilateral chest FINDINGS: The support devices remain in place. There is no pneumothorax. There continue to be infiltrates in heaven th lung bases which are about the same compared to the prior study. The heart size is enlarged but st able. There has been no significant change compared to the prior exam. CONCLUSION: No significant interval change. Alfonso Escoto MD on April 22, 2016 at 5:35 Board Certified Radiologist. This report was verified electronically.
[2016-04-22 05:44] LABS: BASOPHIL # 0.2 TH/MM3 (0-0.2); BASOPHIL % 1.4 % (0.0-2.0); EOSINOPHIL # 0.6 TH/MM3 (0-0.4); HEMATOCRIT 21.7 % (35.0-46.0); LYMPH % 12.6 % (9.0-44.0); LYMPHOCYTE # 1.8 TH/MM3 (1.0-4.8); MEAN CELL VOLUME 71.6 FL (80.0-100.0); MEAN CORPUSCULAR HEMOGLOBIN 22.5 PG (27.0-34.0); MEAN CORPUSCULAR HGB CONC 31.5 % (32.0-36.0); PLATELET COUNT 242 TH/MM3 (150-450); RED BLOOD COUNT 3.03 MIL/MM3 (4.00-5.30); RED CELL DISTRIBUTION WIDTH 28.8 % (11.6-17.2); WHITE BLOOD COUNT 14.3 TH/MM3 (4.0-11.0)
[2016-04-22] MEDS: SODIUM CHLORIDE 23.4% INJ 240 MEQ in SYRINGE/BAG 1 EA IV PRN ×2 (05:56→18:37)
[2016-04-22] MEDS: NOREPINEPHRINE INJ 4 MG in SODIUM CHLOR 0.9% 250 ML INJ 250 ML IV SCH (05:56)
[2016-04-22 05:58] LABS: ALT (GPT) 32 U/L (10-53); ANION GAP 8 MEQ/L (5-15); AST (GOT) 43 U/L (15-37); BLOOD UREA NITROGEN 7 MG/DL (7-18); CHLORIDE 122 MEQ/L (98-107); GLOMERULAR FILTRATION RATE 132 ML/MIN (>89); MAGNESIUM 1.7 MG/DL (1.5-2.5); POTASSIUM 3.2 MEQ/L (3.5-5.1); SODIUM (NA) 153 MEQ/L (136-145)
[2016-04-22 06:00] LABS: ALKALINE PHOSPHATASE 111 U/L (45-117); HEMO FLAGS AUTO DIFF; TOTAL BILIRUBIN ADULT 0.4 MG/DL (0.2-1.0)
[2016-04-22] MEDS: POTASSIUM CHLOR 40 MEQ PREMIX 100 ML IV PRN ×3 (06:11→15:56)
[2016-04-22] MEDS: SODIUM CHLORIDE 0.9% FLUSH 5 ML FLUSH IVF SCH ×2 (07:31→20:32)
[2016-04-22] MEDS: PANTOPRAZOLE SODIUM 40 MG VIAL IV SCH (07:46)
[2016-04-22] MEDS: LACTULOSE SYRUP 20 GM/30 ML CUP PO SCH (07:46)
[2016-04-22] MEDS: levETIRAcetam 500MG PREMIX INJ 100 ML IV SCH ×2 (07:47→20:31)
[2016-04-22] MEDS: NS + KCL 20 MEQ INJ 1,000 ML IV SCH ×2 (07:47→18:19)
[2016-04-22 07:50] LABS: BANDS 12 % (0-6); EOSINOPHILS 2 % (0-4); METAMYELOCYTES 2 % (0-1); OVALOCYTES 1+ (NORMAL); PLATELET ESTIMATE SMEAR NORMAL (NORMAL); PLATELET MORPHOLOGY NORMAL (NORMAL); POLYS (SEG NEUTROPHILS) 70 % (16-70); SCAN/DIFF FINAL DIFF MANUAL; TARGET CELLS 1+ (NORMAL); WBC DIFF SAMPLE 100
--- NOTE | 2016-04-22 07:58 | MG ---
cc: CATRACHITO MOBLEY Lab No: [id number] Date: 04/22/2016 Age: 46 Sex: F Race: __ MEDICATIONS 1. Diprivan 2. Versed 3. Keppra INDICATIONS This is a 46 year-old patient unresponsive at home, shallow breathing, intraparenchymal hemorrhage, left middle cerebral artery aneurysm coiled. DESCRIPTION The recording shows a diffuse low amplitude rhythm that appears to be medication effect. There is slight asynchrony at times with a background 8 hertz, 40 microvolt rhythm that tends to occur and might last about one second and then there is some attenuation of the background. Mostly the background is diffuse low amplitude. I do not see any major hemisphere asymmetries. No epileptiform or seizure activity is noted. For most of the recording, it is synchronous and symmetric. Photic stimulation is performed without significant posterior driving. IMPRESSION This likely appears to be primary medication effect. I do not see any seizure activity. At times, there is a slight asynchrony. No focal abnormality, however, was noted. No seizure activity is seen. Clinical correlation is needed. A repeat EEG offset will be recommended. MD YOAN Diop/CHRISTINE /7:34 AM 7:51 AM
--- NOTE | 2016-04-22 09:09 | HHI.NSPN ---
(Genna Madrid) History Chief Complaint: status post coil for aneurysm (Genna Madrid) Interval History 04/12/16: Patient had an aneurysm coiled yesterday, intubated and sedated, ICP stable overnight 04/13/16: Increased ICP overnight, improved after a 23% saline bolus 04/14/16: ICP stable overnight 04/15/16: ICP stable, CTA stable no vasospasm 04/16/16: ICP slight increase overnight now stabilized, intubated and sedated 04/17/16: ICP increased yesterday afternoon, repeat CTA and CT stable, no vasospasm, no new hemorrhage, hypothermia overnight 04/21/16: increasing ICP over the weekend, getting 23% every 6 hours PRN. 04/22/16: ICP responding over night to 23% saline, CT and CTA planned this am. Nimbex off since yesterday. (Genna Madrid) Exam Results Vital Signs Date Time Temp Pulse Resp B/P Pulse Ox O2 Delivery O2 Flow Rate FiO2 04/22/16 08:41 97 50 04/22/16 08:00 99.1 110 19 182/90 Intake and Output 04/21/16 04/21/16 04/21/16 07:59 15:59 23:59 Intake Total 3336 ml 3185 ml 3353 ml Output Total 4529 ml 3521 ml 4970 ml Balance -1193 ml -336 ml -1617 ml (Genna Madrid) Physical Examination Intubated, sedated. No spontaneous eye opening. Absent conjugate oculocephalics. Right gaze preference. Pupils are 2 mm and non- reactive. Persistent angioedema. ICP 8 CPP 115. EVD draining bloody CSF at 0cmH20. (Genna Madrid) Lab, Micro, Other Results Last Impressions Last Impressions Head CTA 04/22/16 0600 Signed Impressions: Service Date/Time: Friday, April 22, 2016 09:26 - CONCLUSION: 1. The intracranial circulation remains patent. The exam demonstrates significantly more edema surrounding the patient's large area of intraparenchymal hemorrhage on the left. There is at least 1.3 cm of left to right falcine shift. This is significantly worse when compared to the previous examination. This appears to be the result of worsening edema around the patient's intraparenchymal hemorrhage. Eric Castellanos MD Head CT 04/22/16 0600 Signed Impressions: Service Date/Time: Friday, April 22, 2016 09:26 - CONCLUSION: Evolving left frontotemporal hemorrhage with mass effect and increasing left to right midline shift of 15 mm. Subarachnoid hemorrhage and intraventricular hemorrhage again seen. Nathen Howard MD Chest X-Ray 04/22/16 0600 Signed Impressions: Service Date/Time: Friday, April 22, 2016 04:03 - CONCLUSION: No significant interval change. Alfonso Escoto MD Neck CTA 04/11/16 1151 Signed Impressions: Service Date/Time: Monday, April 11, 2016 12:01 - CONCLUSION: Negative for hemodynamically significant carotid stenosis. Ricardo Castellanos MD FACR Cerebral Arteriogram 04/11/16 0000 Signed Impressions: Service Date/Time: Monday, April 11, 2016 14:18 - CONCLUSION: 1. 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 This is the aneurysm felt responsible for the intracranial hemorrhage. 2. Small 4 mm left M1 segment aneurysm. Attempts at embolizing this aneurysm were unsuccessful due to the broad based nature of the aneurysm. Endovascular repair of this aneurysm could not be performed. Kennedy Thibodeaux Jr., MD Laboratory Tests Test 04/21/16 04/21/16 04/22/16 04/22/16 11:40 18:25 00:23 05:30 Sodium Level 151 MEQ/L 153 MEQ/L 157 MEQ/L 153 MEQ/L Serum Osmolality 311 MOSM/KG 315 MOSM/KG 324 MOSM/KG 314 MOSM/KG White Blood Count 14.3 TH/MM3 Red Blood Count 3.03 MIL/MM3 Hemoglobin 6.8 GM/DL Hematocrit 21.7 % Mean Corpuscular Volume 71.6 FL Mean Corpuscular Hemoglobin 22.5 PG Mean Corpuscular Hemoglobin 31.5 % Concent Red Cell Distribution Width 28.8 % Platelet Count 242 TH/MM3 Mean Platelet Volume 8.6 FL Neutrophils (%) (Auto) 77.0 % Lymphocytes (%) (Auto) 12.6 % Monocytes (%) (Auto) 5.0 % Eosinophils (%) (Auto) 4.0 % Basophils (%) (Auto) 1.4 % Neutrophils # (Auto) 11.0 TH/MM3 Lymphocytes # (Auto) 1.8 TH/MM3 Monocytes # (Auto) 0.7 TH/MM3 Eosinophils # (Auto) 0.6 TH/MM3 Basophils # (Auto) 0.2 TH/MM3 CBC Comment AUTO DIFF Differential Total Cells 100 Counted Neutrophils % (Manual) 70 % Band Neutrophils % 12 % Lymphocytes % 9 % Monocytes % 5 % Eosinophils % 2 % Neutrophils # (Manual) 12.0 TH/MM3 Metamyelocytes 2 % Differential Comment FINAL DIFF MANUAL Platelet Estimate NORMAL Platelet Morphology Comment NORMAL Target Cells 1+ Ovalocytes 1+ Potassium Level 3.2 MEQ/L Chloride Level 122 MEQ/L Carbon Dioxide Level 23.0 MEQ/L Anion Gap 8 MEQ/L Blood Urea Nitrogen 7 MG/DL Creatinine 0.59 MG/DL Estimat Glomerular Filtration 132 ML/MIN Rate Random Glucose 97 MG/DL Calcium Level 7.8 MG/DL Magnesium Level 1.7 MG/DL Total Bilirubin 0.4 MG/DL Aspartate Amino Transf 43 U/L (AST/SGOT) Alanine Aminotransferase 32 U/L (ALT/SGPT) Alkaline Phosphatase 111 U/L Total Protein 5.6 GM/DL Albumin 1.4 GM/DL (Genna Madrid) Medical Decision Making Impression and Plan Impression: 1. S/P endovascular coiling of ruptured cerebral aneurysm. 04/14/16 CT angiogram stable: Status post endovascular repair of left supraclinoid aneurysm. Left M1 segment aneurysm stable 04/16/[address] and CTA stable. No vasospasm, no new hemorrhage. 04/25/16: Head CT and CTA pending Plan: Repeat Head CT increased edema and left to right shift 155mm, CTA 04/22 no vasospasm some perfusion. Continue ventilatory support and sedation. Maintain ventriculostomy at 0cmH20 Nimodipine for vasospasm prophylaxis. Maintain systolic blood pressure 180-200 range Continue to monitor sodium level, keep 145-155 range. Water Service Dispatcher following for medical management Keppra for seizure prophylaxis. Protonix for ulcer prophylaxis Ok for Lovenox Discussed with RN at bedside. (Genna Madrid) Attending Statement The exam, history, and the medical decision-making described in the above note were completed with the assistance of the mid-level provider. I reviewed and agree with the findings presented. I attest that I had a [id number] encounter with the patient on the same day, and personally performed and documented my assessment and findings in the medical record. Follow-up CT scan of the head with resolving left frontal/temporal lobe hemorrhage and persistent surrounding edema with midline shift and ventriculostomy draining well. ICPs are well controlled with current regimen currently in 7-9 mmHg. No vasospasm noted on CT angiogram. The larger left ICA aneurysm has been coiled but the broad-based left MCA aneurysm is unsecure and if she does improve neurologically then would consider surgical clipping but will defer to Dr. Meléndez. She has suffered significant dominant hemisphere frontal temporal lobe hemorrhage and and consequent cerebral injury which likely will diminish the likelihood of functional recovery. Continue with supportive care and ICP control measures for now. (Benjie Ruiz MD) Genna Madrid Apr 22, 2016 09:09 Benjie Ruiz MD Apr 22, 2016 15:32
[2016-04-22] MEDS ORDERED: IOHEXOL 350 MG/ML 10 ML VIAL (for RAD DIAG) IV ONE (09:42)
--- NOTE | 2016-04-22 09:56 | RADRPT ---
EXAM DATE/TIME: 04/22/2016 09:26 [place] COMPARISON: CT BRAIN W/O CONTRAST, April 16, 2016, 17:40. INDICATIONS : Follow up subarachnoid hemorrhage. RADIATION DOSE: 34.23 CTDIvol (mGy) MEDICAL HISTORY : Hypertension. SURGICAL HISTORY : Tubal ligation. ENCOUNTER: Subsequent ACUITY: 2 weeks PAIN SCALE: Non-responsive LOCATION: cranial TECHNIQUE: Multiple contiguous axial images were obtained of the head. Using automated exposure control and adj ustment of the mA and/or kV according to patient size, radiation dose was kept as low as reasonably a chievable to obtain optimal diagnostic quality images. FINDINGS: CEREBRUM: Large evolving frontotemporal hemorrhage and vasogenic edema again seen. Minimal subarachnoid hemorrh age. Mass effect and left to right midline shift of approximately 1.5 cm is more prominent on current study. Right frontal ventriculostomy catheter with tip in the right frontal horn and third ventricle . Ventricles are not dilated. Status post coiling of the left supraclinoid carotid. There is some min imal intraventricular hemorrhage. POSTERIOR FOSSA: The cerebellum and brainstem are intact. The 4th ventricle is midline. The cerebellopontine angle i s unremarkable. EXTRACRANIAL: The visualized portion of the orbits is intact. Diffuse opacification of the paranasal sinuses. SKULL: The calvaria is intact. No evidence of skull fracture. CONCLUSION: Evolving left frontotemporal hemorrhage with mass effect and increasing left to right midline shift o f 15 mm. Subarachnoid hemorrhage and intraventricular hemorrhage again seen. Nathen Howard MD on April 22, 2016 at 9:49 Board Certified Radiologist. This report was verified electronically.
--- NOTE | 2016-04-22 10:33 | RADRPT ---
EXAM DATE/TIME: 04/22/2016 09:26 [facility]: 18. CTA BRAIN W 3D RECON, April 16, 2016, 17:40. INDICATIONS : Evaluate for aneurysm. IV CONTRAST: 90 cc Omnipaque 350 (iohexol) IV RADIATION DOSE: 59.24 CTDIvol (mGy) MEDICAL HISTORY : Hypertension. SURGICAL HISTORY : Tubal ligation. ENCOUNTER: Subsequent ACUITY: 2 weeks PAIN SCALE: Non-responsive LOCATION: cranial TECHNIQUE: Volumetric scanning was performed using a multi-row detector CT scanner. The data was post processed with a variety of visualization algorithms including full volume maximum intensity projection, multi -planar sliding thin slab reformation, curved planar reformation, and surface rendering techniques. Using automated exposure control and adjustment of the mA and/or kV according to patient size, radiat ion dose was kept as low as reasonably achievable to obtain optimal diagnostic quality images. FINDINGS: Both distal internal carotid arteries are patent. There is moderate streak artifact from previous ane urysm coiling in the region of the left posterior communicating artery. There is considerable anterior/superior displacement of the patient's left middle cerebral circulatio n do to a sizable intraparenchymal hematoma. The exam does demonstrate the anterior cerebral and midd le cerebral circulation on the left to be widely patent. The posterior cerebral circulation on the le ft appears patent. The anterior and middle cerebral circulation on the right is widely patent. Posterior cerebral circul ation on the right is widely patent and Today's examination does demonstrate moderate interval increase in the amount of left to right falcin e shift. There is at least 1.2 cm of shift evident. The ventriculostomy appears in good position. CONCLUSION: 1. The intracranial circulation remains patent. The exam demonstrates significantly more edema surrou nding the patient's large area of intraparenchymal hemorrhage on the left. There is at least 1.3 cm o f left to right falcine shift. This is significantly worse when compared to the previous examination. This appears to be the result of worsening edema around the patient's intraparenchymal hemorrhage. Eric Castellanos MD on April 22, 2016 at 10:22 Board Certified Radiologist. This report was verified electronically.
[2016-04-22] MEDS: ENOXAPARIN SODIUM 40 MG/0.4 ML SYRINGE SQ SCH (12:18)
[2016-04-22] MEDS ORDERED: PHARMACY ORDERED LAB XX ONE (13:45)
[2016-04-22] MEDS ORDERED: BUMETANIDE INJ 1 MG/4 ML VIAL IV PUSH ONE (15:00)
--- NOTE | 2016-04-22 15:36 | PD.CONS ---
Consult Service Palliative Care Consult Requested By Dali BRUSH Primary Care Physician Unknown Reason for Consultation a. To assist with evaluation and management of symptoms including: encephalopathy b. To assist medical decision maker(s) with: better understanding of current medical conditions; weighing benefits/burdens of medical treatment options; making medical treatment decisions. HPI History of Present Illness This 46 year old female presented to the ED on 04/11/16, apparently found on the ground unresponsive by family members, EMS was activated. EMS found her with a GCS of 3 and blood pressure to 90 systolic. She required respiratory ventilation support. She was unresponsive and unable to provide additional history. * She was intubated on arrival to the ED. Cardene was initiated for hypotension. CT brain obtained for suspected hemorrhage, CT brain indicates large left hemispheric intraparenchymal hemorrhage with subarachnoid blood. Suspected MCA aneurysm rupture, CTA head and neck pending. Neurosurgery consulted. Admitted to the ICU ,emergent ventriculostomy placement by neuro. * Neuro exam notes absent deep tendon reflexes, no withdrawal to stimuli weak cough reflex pupils 2 mm and nonreactive. Prognosis guarded given significant areas of hemorrhage--cerebral angiogram indicates to aneurysm. Planned for interventional radiology for attempted coiling. Initiated on Keppra, pneumatized. * 04/11 to IR for attempting coiling of 2 aneurysms. Large and most complex involves left posterior cerebral origin. Successful coil embolization of the largest aneurysm. Attempted coiling embolization of other M1 aneurysm on left not successful unable to treat at aneurysm via endovascular methods. * 04/13 ICP increasing, > 20, cerebral edema, requiring ventilator adjustments, increased sedation and analgesia--received 23% saline bolus //neurosurgery discussed with patient's family at bedside * 04/15 continues to require heavy sedation for ICP control, somewhat improved on sedation. Repeat CT angiogram indicated status post endovascular repair left aneurysm left M1 segment stable no vasospasm. * 04/16 hypoxemic FiO2 increased to 70%, CXR= lower lobe infiltrate, sputum+ or negative rods. Clinical exam: Pulse 2 mm nonreactive. No withdrawal 4 extremities. * 04/17 ICP elevated, hypothermic? Related to sepsis, pancultures pending, on Vanco --- later initiated on paralytics * 04/21 still critically ill on mechanical vent. Intermittent ICP elevations. Requiring 23% saline boluses. Paralytic Nimbex DC'd. Repeat CT angiogram planned for 04/22 * 04/22EEG no seizure activity noted. Slightly asynchrony no focal abnormality. CTA head 04/22 no vasospasm some perfusion. Palliative care consulted by neuro to assist family with clarification of goals of treatment. Hemoglobin low 6.8, ordered for RBC transfusion-Bumex 1 following. WBC 14.3. Patient seen in room no visitors present. Nursing indicates no family in as of yet today. She is sedated on mechanical vent, critically ill-appearing. Nonresponsive to my exam, no gag reflex when nursing provide suction during my exam. Currently on Cardene drip, Versed drip at 10 mg an hour, Diprivan drip at 15 mics/kg/minute, fentanyl drip at 250 mcgs/ hour, 3% saline at 40 mL/ hour and receiving second unit rbc's today. Primary nurse informs neurosurgery Dr. Ruiz by shortly before my exam and they indicated no plans for surgical intervention at this time. Following exam call to daughter, provided brief general medical update, assessment overview, arranged to meet with her tomorrow Thursday04/23/16 around 9:45 AM. Function/Cognitive Trajectory Prior to this current admission lives at home, independent with ADLs and self- care. Review of Systems ROS Limitations: Clinical Condition, Intoxication, Unresponsive (sedated on mechanical vent nonresponsive unable to provide ROS) Past Family Social History Coded Allergies: No Known Allergies (Verified , 04/11/16) Past Medical History Hypertension -diagnosed 2008 upon suffering retinal tear History ectopic . Past Surgical History Tubal ligation Eye surgery . Reported Medications Anaprox Ds (Naproxen Sodium) 550 Mg Tab 1 Tab PO BIDPRN Coreg (Carvedilol) 12.5 Mg Tab 12.5 Mg PO BID Prinivil (Lisinopril) 20 Mg Tab 20 Mg PO DAILY Current Medications Medications (Trade) Dose Ordered Sig/Zhanna Route Start Time Stop Time Status Last Admin (NS + KCl 20 Meq Inj) 1,000 ml @ 100 mls/hr Q10H IV 04/11/16 13:23 04/22/16 07:47 (NS Flush) 2 ml UNSCH PRN IVF 04/11/16 13:30 (NS Flush) 2 ml BID IVF 04/11/16 21:00 04/22/16 07:31 (Tylenol) 650 mg Q6H PRN PO 04/11/16 13:30 (Protonix Inj) 40 mg DAILY IV 04/11/16 14:00 04/22/16 07:46 (Ativan Inj) 2 mg Q1H PRN IV 04/11/16 13:30 (Zofran Inj) 4 mg Q6H PRN IV 04/11/16 13:30 Miscellaneous Information 1 [id number] XX 04/11/16 13:30 (Chlorhexidine 2% Cloth) Taper DAILY@04 TOP 04/12/16 04:00 04/08/17 03:59 04/17/16 04:00 Chlorhexidine Gluconate 3 pack 3 pack UNSCH PRN TOP 04/11/16 13:30 Levetriacetam 100 ml @ 400 mls/hr Q12HR IV 04/11/16 21:00 04/22/16 07:47 Potassium Chloride 100 ml @ 50 mls/hr Q2H PRN IV 04/11/16 13:30 04/22/16 06:14 (KCl 20 Meq Premix Inj) 100 ml @ 50 mls/hr Q2H PRN IV 04/11/16 13:30 Potassium Chloride 40 meq 40 meq UNSCH PRN PO/TUBE 04/11/16 13:30 04/18/16 09:01 Potassium Chloride 100 ml @ 25 mls/hr UNSCH PRN IV 04/11/16 13:30 04/21/16 06:33 Potassium Chloride 100 ml @ 50 mls/hr Q2H PRN IV 04/11/16 13:30 (Magnesium Sulfate Inj/NS Inj) 100 ml @ 50 mls/hr UNSCH PRN IV 04/11/16 13:30 Magnesium Oxide 800 mg 800 mg UNSCH PRN PO 04/11/16 13:30 (Magnesium Sulfate Inj/NS Inj) 100 ml @ 50 mls/hr UNSCH PRN IV 04/11/16 13:30 04/21/16 08:27 Potassium Phosphate 2000 mg 2,000 mg Q4H PRN PO 04/11/16 13:30 (Sodium Phosphate Inj/NS 250 ml Inj) 250 ml @ 42 mls/hr UNSCH PRN IV 04/11/16 13:30 04/14/16 06:47 (KCl 40 Meq/30 ml Liq) 40 meq UNSCH PRN PO/TUBE 04/11/16 13:30 Potassium Phosphate 2000 mg 2,000 mg UNSCH PRN PO/TUBE 04/11/16 13:30 (Potassium Phosphate Inj/NS 250 ml Inj) 260 ml @ 42 mls/hr UNSCH PRN IV 04/11/16 13:30 (Lopressor) 25 mg Q6H PO 04/11/16 14:00 04/22/16 12:19 Acetaminophen 650 mg 650 mg Q4H PRN PO 04/11/16 16:30 (Diprivan 1000 Mg/100ml Inj) 100 ml @ 0 mls/hr TITRATE IV 04/11/16 20:30 04/22/16 12:18 (Reglan Liq) 10 mg Q8H PO 04/12/16 09:00 04/22/16 07:46 Fentanyl Citrate 100 mcg 100 mcg Q30M PRN IV PUSH 04/12/16 16:30 04/15/16 14:51 Fentanyl Citrate 250 ml @ 0 mls/hr TITRATE IV 04/12/16 16:30 04/22/16 08:48 Norepinephrine Bitartrate 4 mg/ Sodium Chloride 254 ml @ 0 mls/hr TITRATE IV 04/12/16 17:45 04/22/16 05:56 Midazolam HCl 100 ml @ 0 mls/hr TITRATE IV 04/13/16 13:00 04/22/16 08:48 Nicardipine HCl 25 mg/Sodium Chloride 260 ml @ 0 mls/hr TITRATE IV 04/14/16 17:45 04/22/16 13:29 Piperacillin Sod/ Tazobactam Sod 100 ml @ 200 mls/hr Q6H IV 04/15/16 09:00 04/22/16 07:47 Levofloxacin/ Dextrose 150 ml @ 100 mls/hr Q24H IV 04/16/16 18:00 04/21/16 18:34 Pharmacy Profile Note 0 ml @ 0 mls/hr UNSCH OTHER 04/17/16 12:45 (Vancomycin Inj/ NS 500 ml Inj) 530 ml @ 250 mls/hr Q12H IV 04/17/16 14:00 04/22/16 13:36 (Lactulose Liq) 30 ml DAILY PO 04/19/16 09:00 04/22/16 07:46 (Lovenox Inj) 40 mg Q24H SQ 04/19/16 13:00 04/21/16 12:12 Nimodipine 30 mg 30 mg Q4HR PO 04/20/16 00:00 04/22/16 12:18 Sodium Chloride 240 meq/Syringe / Bag 60 ml @ 120 mls/hr Q6H PRN IV 04/20/16 08:15 04/22/16 05:56 (Sodium Chloride 3% Inj) 500 ml @ 40 mls/hr [id number] IV 04/20/16 15:30 04/22/16 08:48 Family History mother with heart disease, from complications after open heart surgery . Substance Use Tobacco: Former smoker Alcohol: None Prescription med abuse: None Illicits: None. . Psychosocial History Previously lived in the [facility] area. Moved back to [place] around 2009. supported by adult daughter, and multiple siblings. Spiritual/Cultural Factors Religion Living Will: Never completed Health Care Surrogate: Never completed Durable Power of Debt Collection Specialist: Never completed Ethical and Legal Issues Patient is not able to participate in decision-making due to clinical condition , not clear that she will regain this ability. She is not . Per [place] statutes legal decision making would fall to her 2 adult children. Also reported to be supported by siblings. . Physical Exam Vital Signs Date Time Temp Pulse Resp B/P Pulse Ox O2 Delivery O2 Flow Rate FiO2 04/22/16 14:00 90 04/22/16 12:55 100 50 04/22/16 12:00 98.6 88 19 186/99 100 04/22/16 12:00 55 04/22/16 12:00 88 04/22/16 10:00 93 04/22/16 08:41 97 50 04/22/16 08:00 55 04/22/16 08:00 99.1 110 19 182/90 98 04/22/16 08:00 110 04/22/16 06:00 90 04/22/16 06:00 90 168/70 04/22/16 04:00 55 04/22/16 04:00 98.9 91 19 201/94 100 04/22/16 04:00 91 04/22/16 02:02 100 50 04/22/16 02:00 93 04/22/16 00:00 100 04/22/16 00:00 55 04/22/16 00:00 98.7 103 19 174/84 100 04/21/16 22:00 82 04/21/16 20:45 100 50 04/21/16 20:00 98.8 78 19 149/72 100 04/21/16 20:00 55 04/21/16 20:00 83 04/21/16 18:00 84 04/21/16 18:00 82 04/21/16 17:06 95 50 04/21/16 16:00 74 04/21/16 16:00 55 04/21/16 16:00 97.8 74 19 179/79 96 04/21/16 04/22/16 19:00 07:00 Intake Total 3185 ml 6049 ml Output Total 3521.0 ml 7544.0 ml Balance -336.0 ml -1495.0 ml IV Total 2788 ml 5482 ml Tube Feeding 217 ml 447 ml Tube Irrigant 180 ml 120 ml Output Urine Total 3450 ml 6300 ml Stool Total 0 ml 1100 ml Tube Feeding Residual Discard 0 ml 0 ml Drainage Total 71 ml 144 ml Exam CONSTITUTIONAL/GENERAL: This is an adequately nourished patient, in no apparent distress, critically ill on mechanical vent. TUBES/LINES/DRAINS: Central line left subclavian, Rebollar catheter, rectal drain, ventriculostomy, ET tube, OG tube SKIN: No jaundice, rashes, or lesions.No wounds seen anteriorly. Skin temperature appropriate. Not diaphoretic. HEAD: Atraumatic. + Ventriculostomy exits from top of head to bedside drain EYES: Pupils 2 mm, nonreactive to light. Leftward gaze. + Scleral edema. No scleral icterus. No injection or drainage. Fundi not examined. ENT: Nose without bleeding or purulent drainage. Unable to visualize oropharynx due to ET tube, OG tube. NECK: Trachea midline. Supple, nontender. No palpable thyroid enlargement or nodularity. CARDIOVASCULAR: Regular rate and rhythm, + murmur. Peripheral pulses symmetric. + Generalized edema. RESPIRATORY/CHEST: Symmetric, unlabored respirations via mechanical vent, no spontaneous respirations over vent rate. Clear to auscultation. Breath sounds equal bilaterally. GASTROINTESTINAL: Abdomen soft, unable to assess tenderness, nondistended. No hepato-splenomegaly, or palpable masses. Bowel sounds present. Tube feedings infusing via OG tube.+ Liquid stool present in rectal drain. GENITOURINARY: Without palpable bladder distension. Rebollar catheter in place. MUSCULOSKELETAL: Extremities without clubbing, cyanosis. Generalized edema. No joint effusion noted. No mottling or clubbing. NEUROLOGICAL: Sedated on mechanical vent. Nonresponsive to exam. No gag reflex when nursing provide suction. Pupils nonreactive 2 mm, with leftward gaze. PSYCHIATRIC: unable to assess due to clinical condition. No apparent anxiety or tachypnea. Diagnostic Tests Laboratory Laboratory Tests Test 04/19/16 04/19/16 04/20/16 04/20/16 22:05 23:14 03:00 07:00 Blood Gas Puncture Site ART LINE Blood Gas Patient Temperature 98.6 Blood Gas HCO3 23 mmol/L (22-26) Blood Gas Base Excess -1.1 mmol/L (-2-2) Blood Gas Oxygen Saturation 96 % (90-100) Arterial Blood pH 7.45 (7.380-7.420) Arterial Blood Partial 33 mmHg (38-42) Pressure CO2 Arterial Blood Partial 101 mmHg Pressure O2 (61-120) Arterial Blood Oxygen Content 11.1 Vol % (12.0-20.0) Arterial Blood 1.4 % (0-4) Carboxyhemoglobin Arterial Blood Methemoglobin 0.7 % (0-2) Blood Gas Hemoglobin 8.2 G/DL (12.0-16.0) Oxygen Delivery Device VENTILATOR Blood Gas Ventilator Setting PC/AC Blood Gas Inspired Oxygen 50 % Serum Osmolality 300 MOSM/KG 305 MOSM/KG (275-295) (275-295) Sodium Level 145 MEQ/L 147 MEQ/L 144 MEQ/L (136-145) (136-145) (136-145) White Blood Count 16.4 TH/MM3 (4.0-11.0) Red Blood Count 3.62 MIL/MM3 (4.00-5.30) Hemoglobin 8.3 GM/DL (11.6-15.3) Hematocrit 25.8 % (35.0-46.0) Mean Corpuscular Volume 71.1 FL (80.0-100.0) Mean Corpuscular Hemoglobin 22.8 PG (27.0-34.0) Mean Corpuscular Hemoglobin 32.0 % Concent (32.0-36.0) Red Cell Distribution Width 28.8 % (11.6-17.2) Platelet Count 250 TH/MM3 (150-450) Mean Platelet Volume 9.2 FL (7.0-11.0) Neutrophils (%) (Auto) 79.7 % (16.0-70.0) Lymphocytes (%) (Auto) 10.4 % (9.0-44.0) Monocytes (%) (Auto) 6.4 % (0.0-8.0) Eosinophils (%) (Auto) 3.2 % (0.0-4.0) Basophils (%) (Auto) 0.3 % (0.0-2.0) Neutrophils # (Auto) 13.1 TH/MM3 (1.8-7.7) Lymphocytes # (Auto) 1.7 TH/MM3 (1.0-4.8) Monocytes # (Auto) 1.1 TH/MM3 (0-0.9) Eosinophils # (Auto) 0.5 TH/MM3 (0-0.4) Basophils # (Auto) 0.1 TH/MM3 (0-0.2) CBC Comment AUTO DIFF Differential Total Cells 100 Counted Neutrophils % (Manual) 80 % (16-70) Band Neutrophils % 2 % (0-6) Lymphocytes % 7 % (9-44) Monocytes % 4 % (0-8) Eosinophils % 6 % (0-4) Neutrophils # (Manual) 13.6 TH/MM3 (1.8-7.7) Metamyelocytes 1 % (0-1) Nucleated Red Blood Cells 1 /100 WBC (0-0) Differential Comment FINAL DIFF MANUAL Platelet Estimate NORMAL (NORMAL) Platelet Morphology Comment NORMAL (NORMAL) Target Cells 1+ (NORMAL) Ovalocytes 1+ (NORMAL) Keratocytes OCC (NORMAL) Potassium Level 3.6 MEQ/L (3.5-5.1) Chloride Level 116 MEQ/L (98-107) Carbon Dioxide Level 25.2 MEQ/L (21.0-32.0) Anion Gap 6 MEQ/L (5-15) Blood Urea Nitrogen 6 MG/DL (7-18) Creatinine 0.49 MG/DL (0.50-1.00) Estimat Glomerular Filtration 163 ML/MIN Rate (>89) Random Glucose 118 MG/DL (74-106) Calcium Level 8.1 MG/DL (8.5-10.1) Total Bilirubin 0.5 MG/DL (0.2-1.0) Aspartate Amino Transf 44 U/L (15-37) (AST/SGOT) Alanine Aminotransferase 29 U/L (10-53) (ALT/SGPT) Alkaline Phosphatase 136 U/L (45-117) Total Protein 6.3 GM/DL (6.4-8.2) Albumin 1.6 GM/DL (3.4-5.0) Test 04/20/16 04/20/16 04/20/16 04/21/16 08:52 12:00 18:15 00:00 Blood Gas Puncture Site ROBERTO Blood Gas Patient Temperature 98.6 Blood Gas HCO3 23 mmol/L (22-26) Blood Gas Base Excess -0.8 mmol/L (-2-2) Blood Gas Oxygen Saturation 87 % (90-100) Arterial Blood pH 7.41 (7.380-7.420) Arterial Blood Partial 38 mmHg (38-42) Pressure CO2 Arterial Blood Partial 63 mmHg Pressure O2 (61-120) Arterial Blood Oxygen Content 10.2 Vol % (12.0-20.0) Arterial Blood 1.4 % (0-4) Carboxyhemoglobin Arterial Blood Methemoglobin 0.8 % (0-2) Blood Gas Hemoglobin 8.3 G/DL (12.0-16.0) Oxygen Delivery Device VENTILATOR Blood Gas Ventilator Setting PC/AC Blood Gas Inspired Oxygen 50 % Sodium Level 148 MEQ/L 150 MEQ/L 149 MEQ/L (136-145) (136-145) (136-145) Serum Osmolality 307 MOSM/KG 311 MOSM/KG 308 MOSM/KG (275-295) (275-295) (275-295) Phosphorus Level 2.5 MG/DL (2.5-4.9) Magnesium Level 2.6 MG/DL (1.5-2.5) Thyroid Stimulating Hormone 0.909 uIU/ML 3rd Gen (0.358-3.740) Test 04/21/16 04/21/16 04/21/16 04/21/16 05:00 09:00 11:40 18:25 White Blood Count 13.8 TH/MM3 (4.0-11.0) Red Blood Count 3.35 MIL/MM3 (4.00-5.30) Hemoglobin 7.5 GM/DL (11.6-15.3) Hematocrit 23.8 % (35.0-46.0) Mean Corpuscular Volume 70.9 FL (80.0-100.0) Mean Corpuscular Hemoglobin 22.4 PG (27.0-34.0) Mean Corpuscular Hemoglobin 31.6 % Concent (32.0-36.0) Red Cell Distribution Width 28.6 % (11.6-17.2) Platelet Count 221 TH/MM3 (150-450) Mean Platelet Volume 8.5 FL (7.0-11.0) Neutrophils (%) (Auto) 73.1 % (16.0-70.0) Lymphocytes (%) (Auto) 15.5 % (9.0-44.0) Monocytes (%) (Auto) 7.1 % (0.0-8.0) Eosinophils (%) (Auto) 3.8 % (0.0-4.0) Basophils (%) (Auto) 0.5 % (0.0-2.0) Neutrophils # (Auto) 10.1 TH/MM3 (1.8-7.7) Lymphocytes # (Auto) 2.1 TH/MM3 (1.0-4.8) Monocytes # (Auto) 1.0 TH/MM3 (0-0.9) Eosinophils # (Auto) 0.5 TH/MM3 (0-0.4) Basophils # (Auto) 0.1 TH/MM3 (0-0.2) CBC Comment AUTO DIFF Differential Comment AUTO DIFF CONFIRMED Ovalocytes 1+ (NORMAL) Sodium Level 153 MEQ/L 151 MEQ/L 153 MEQ/L (136-145) (136-145) (136-145) Potassium Level 3.3 MEQ/L (3.5-5.1) Chloride Level 122 MEQ/L (98-107) Carbon Dioxide Level 24.0 MEQ/L (21.0-32.0) Anion Gap 7 MEQ/L (5-15) Blood Urea Nitrogen 6 MG/DL (7-18) Creatinine 0.52 MG/DL (0.50-1.00) Estimat Glomerular Filtration 152 ML/MIN Rate (>89) Random Glucose 118 MG/DL (74-106) Serum Osmolality 312 MOSM/KG 311 MOSM/KG 315 MOSM/KG (275-295) (275-295) (275-295) Calcium Level 7.9 MG/DL (8.5-10.1) Magnesium Level 1.5 MG/DL (1.5-2.5) Total Bilirubin 0.4 MG/DL (0.2-1.0) Aspartate Amino Transf 38 U/L (15-37) (AST/SGOT) Alanine Aminotransferase 30 U/L (10-53) (ALT/SGPT) Alkaline Phosphatase 118 U/L (45-117) Total Protein 5.8 GM/DL (6.4-8.2) Albumin 1.4 GM/DL (3.4-5.0) Blood Gas Puncture Site ART LINE Blood Gas Patient Temperature 98.6 Blood Gas HCO3 23 mmol/L (22-26) Blood Gas Base Excess -0.5 mmol/L (-2-2) Blood Gas Oxygen Saturation 96 % (90-100) Arterial Blood pH 7.47 (7.380-7.420) Arterial Blood Partial 31 mmHg (38-42) Pressure CO2 Arterial Blood Partial 103 mmHg Pressure O2 (61-120) Arterial Blood Oxygen Content 10.3 Vol % (12.0-20.0) Arterial Blood 1.5 % (0-4) Carboxyhemoglobin Arterial Blood Methemoglobin 0.8 % (0-2) Blood Gas Hemoglobin 7.5 G/DL (12.0-16.0) Oxygen Delivery Device VENTILATOR Blood Gas Liter Flow L/M Blood Gas Inspired Oxygen 55 % Test 04/22/16 04/22/16 04/22/16 04/22/16 00:23 05:30 10:15 11:00 Sodium Level 157 MEQ/L 153 MEQ/L 155 MEQ/L (136-145) (136-145) (136-145) Serum Osmolality 324 MOSM/KG 314 MOSM/KG 316 MOSM/KG (275-295) (275-295) (275-295) White Blood Count 14.3 TH/MM3 (4.0-11.0) Red Blood Count 3.03 MIL/MM3 (4.00-5.30) Hemoglobin 6.8 GM/DL (11.6-15.3) Hematocrit 21.7 % (35.0-46.0) Mean Corpuscular Volume 71.6 FL (80.0-100.0) Mean Corpuscular Hemoglobin 22.5 PG (27.0-34.0) Mean Corpuscular Hemoglobin 31.5 % Concent (32.0-36.0) Red Cell Distribution Width 28.8 % (11.6-17.2) Platelet Count 242 TH/MM3 (150-450) Mean Platelet Volume 8.6 FL (7.0-11.0) Neutrophils (%) (Auto) 77.0 % (16.0-70.0) Lymphocytes (%) (Auto) 12.6 % (9.0-44.0) Monocytes (%) (Auto) 5.0 % (0.0-8.0) Eosinophils (%) (Auto) 4.0 % (0.0-4.0) Basophils (%) (Auto) 1.4 % (0.0-2.0) Neutrophils # (Auto) 11.0 TH/MM3 (1.8-7.7) Lymphocytes # (Auto) 1.8 TH/MM3 (1.0-4.8) Monocytes # (Auto) 0.7 TH/MM3 (0-0.9) Eosinophils # (Auto) 0.6 TH/MM3 (0-0.4) Basophils # (Auto) 0.2 TH/MM3 (0-0.2) CBC Comment AUTO DIFF Differential Total Cells 100 Counted Neutrophils % (Manual) 70 % (16-70) Band Neutrophils % 12 % (0-6) Lymphocytes % 9 % (9-44) Monocytes % 5 % (0-8) Eosinophils % 2 % (0-4) Neutrophils # (Manual) 12.0 TH/MM3 (1.8-7.7) Metamyelocytes 2 % (0-1) Differential Comment FINAL DIFF MANUAL Platelet Estimate NORMAL (NORMAL) Platelet Morphology Comment NORMAL (NORMAL) Target Cells 1+ (NORMAL) Ovalocytes 1+ (NORMAL) Potassium Level 3.2 MEQ/L (3.5-5.1) Chloride Level 122 MEQ/L (98-107) Carbon Dioxide Level 23.0 MEQ/L (21.0-32.0) Anion Gap 8 MEQ/L (5-15) Blood Urea Nitrogen 7 MG/DL (7-18) Creatinine 0.59 MG/DL (0.50-1.00) Estimat Glomerular Filtration 132 ML/MIN Rate (>89) Random Glucose 97 MG/DL (74-106) Calcium Level 7.8 MG/DL (8.5-10.1) Magnesium Level 1.7 MG/DL (1.5-2.5) Total Bilirubin 0.4 MG/DL (0.2-1.0) Aspartate Amino Transf 43 U/L (15-37) (AST/SGOT) Alanine Aminotransferase 32 U/L (10-53) (ALT/SGPT) Alkaline Phosphatase 111 U/L (45-117) Total Protein 5.6 GM/DL (6.4-8.2) Albumin 1.4 GM/DL (3.4-5.0) Blood Type O POSITIVE Antibody Screen NEGATIVE Crossmatch Leukocyte-Reduced Red Blood Cells Blood Bank Comment Test 04/22/16 04/22/16 13:35 14:09 Potassium Level 3.3 MEQ/L (3.5-5.1) Blood Type O POSITIVE Crossmatch Leukocyte-Reduced Red Blood Cells Blood Bank Comment Result Diagram: 04/22/16 0530 04/22/16 1335 Microbiology Microbiology Date/Time Procedure Status Source Growth 04/20/16 12:30 Urine Culture - Final Complete Urine Catheterized Urine NO GROWTH IN 48 HOURS. 04/20/16 14:40 Aerobic Blood Culture - Preliminary Resulted Blood Peripheral NO GROWTH IN 2 DAYS 04/20/16 14:40 Anaerobic Blood Culture - Preliminary Resulted Blood Peripheral NO GROWTH IN 2 DAYS 04/20/16 14:45 Aerobic Blood Culture - Preliminary Resulted Blood Peripheral NO GROWTH IN 2 DAYS 04/20/16 14:45 Anaerobic Blood Culture - Preliminary Resulted Blood Peripheral NO GROWTH IN 2 DAYS 04/20/16 15:50 Gram Stain - Final Complete Sputum Endotracheal 04/20/16 15:50 Sputum Culture - Final Complete Sputum Endotracheal LIGHT GROWTH NORMAL RESPIRATORY [facility]NA Imaging Last Impressions Head CTA 04/22/16 06 Signed Impressions: Service Date/Time: Friday, April 22, 2016 09:26 - CONCLUSION: 1. The intracranial circulation remains patent. The exam demonstrates significantly more edema surrounding the patient's large area of intraparenchymal hemorrhage on the left. There is at least 1.3 cm of left to right falcine shift. This is significantly worse when compared to the previous examination. This appears to be the result of worsening edema around the patient's intraparenchymal hemorrhage. Eric Castellanos MD Head CT 04/22/16 0600 Signed Impressions: Service Date/Time: Friday, April 22, 2016 09:26 - CONCLUSION: Evolving left frontotemporal hemorrhage with mass effect and increasing left to right midline shift of 15 mm. Subarachnoid hemorrhage and intraventricular hemorrhage again seen. Nathen Howard MD Chest X-Ray 04/22/16 0600 Signed Impressions: Service Date/Time: Friday, April 22, 2016 04:03 - CONCLUSION: No significant interval change. Alfonso Escoto MD Neck CTA 04/11/16 1151 Signed Impressions: Service Date/Time: Monday, April 11, 2016 12:01 - CONCLUSION: Negative for hemodynamically significant carotid stenosis. Ricardo Castellanos MD FACR Cerebral Arteriogram 04/11/16 0000 Signed Impressions: Service Date/Time: Monday, April 11, 2016 14:18 - CONCLUSION: 1. 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 This is the aneurysm felt responsible for the intracranial hemorrhage. 2. Small 4 mm left M1 segment aneurysm. Attempts at embolizing this aneurysm were unsuccessful due to the broad based nature of the aneurysm. Endovascular repair of this aneurysm could not be performed. Kennedy Thibodeaux Jr., MD Patient/Family Conference Family Conference Location: Telephone Issues Discussed: PENDING- family meeting w daughter set up for 04/23/16 at 0945. GOALS TBD. Assessment and Plan Disease Oriented Problem List: (1) Acute spontaneous subarachnoid intracranial hemorrhage (2) Cerebral aneurysm rupture (3) Hypertension Symptom Scale: (1) Dyspnea Comment: Intubated for airway protection (2) Encephalopathy Comment: MCA hemorrhage, status post aneurysm rupture, status post IR coiling Pertinent Non-Medical Issues *Additional pending family meeting tomorrow Psychosocial: Spiritual: Legal:Patient is not able to participate in decision-making due to clinical condition, not clear that she will regain this ability. She is not . Per [place] statutes legal decision making would fall to her 1 (or 2?) adult children. Also reported to be supported by siblings. Ethical issues impacting care: Important Contacts Solo Hoskins (daughter) [phone] Donna [id number] Brother Fei Pride [id number] Brother Kenn Pride Brother Jared Pride Brother Jamil Ellington . 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 Status post coiling of one aneurysm. Continues to have elevated ICPs and poor neuro exam. May require craniotomy due to labile ICP and worsening edema. Will likely require prolonged hospital course and will be high risk for further complications/setbacks while supportive care continues. Will likely require tracheostomy and PEG tube placement for ongoing aggressive treatment. Not expected to regain independent function, will likely have significant deficits if she can survive acute course and may remain dependent for care. Code Status: Full Code Plan * Brief telephone meeting in overview with daughter today on phone. Plan for family meeting with her tomorrow Thursday04/23/16 at 9:45 AM. * Goals-TBD, pending meeting with family tomorrow * Legal decision maker- per records patient is not . Per daughter today she indicates she is patient's only child (though prior hospital records indicate patient Para 2?) Per [place] statutes adult daughter would be legal decision maker. She also supported by multiple siblings. * Symptoms: --Encephalopathy-s/p MCA hemorrhage, status post aneurysm rupture, status post IR coiling// cont to have elevated ICP/edema --Dyspnea- intubated for airway protection, sedated/no resp distress on mech vent. + suspected aspiration pneumonia, on abx coverage for * Palliative care will continue to follow during hospital course as condition evolves, to assist patient/decision-maker with understanding of medical conditions, weighing benefits/burdens of treatment options, for clarification of goals of treatment. Additionally will assist with any symptoms of palliative concern Time Spent Total Floor Time (mins): 45 Thank you for the opportunity to participate in the care of Ms. Pride. Attestation To help prompt me to consider important information that might be impacting today's encounter and assessment, information from prior notes written by myself or my colleagues may have been "brought forward" into today's note. My signature on this note, however, is an attestation that I personally performed the exam, history, and/or decision-making noted today, and, unless otherwise indicated, the interactions with patient, family, and staff as well as the review of records all occurred today. I also attest that the listed assessment and stated plan reflect my best clinical judgment today based on the combination of historical information, prior notes, and today's exam/ interactions. When time spent is documented, it refers only to time spent today by the signer, or if indicated, combined time spent today by collaborating physician/nurse practitioner. Ashley Wharton Apr 22, 2016 15:36 and stated plan reflect my best clinical judgment today based on the combination of historical information, prior notes, and today's exam/ interactions. When time spent is documented, it refers only to time spent today by the signer, or if indicated, combined time spent today by collaborating physician/nurse practitioner. Ashley Wharton Apr 22, 2016 15:36
[2016-04-22] MEDS: LEVOFLOXACIN 750 MG PREMIX INJ 150 ML IV SCH (17:07)
--- NOTE | 2016-04-22 17:29 | HHI.CCPN ---
Subjective Remarks/Hospital Course SAH, unresponsive, malignant hypertension - This 46-year-old woman with a longstanding history of hypertension, was found unresponsive at her home and paramedics arrived to find her with shallow breathing and a Angelica coma scale of three. Systolic blood pressure was 290 and under bag mask ventilation. She was brought to the emergency department where she remained unresponsive and required endotracheal intubation, mechanical ventilation. A CT scan of the head showed a large left hemispheric intraparenchymal hemorrhage with subarachnoid blood as well. Subsequent evaluation confirmed a left middle cerebral artery aneurysm which appears to be the culprit lesion. She was brought immediately to the [facility] where we continued Cardene drip infusion for blood pressure control and placed arterial monitoring lines and central venous line. Electrolyte abnormalities were corrected, particularly severe hypokalemia. The ventilator was adjusted to maintain arterial CO2, between 35 and 40. She received Keppra loading intravenously and Nimotop through the nasogastric tube. Usual ICU monitoring was in place and arrangements were made, a ventriculostomy was placed, and transported expeditiously to interventional radiology where attempts will be made to coil the aneurysm. 04/12: Culprit (larger) aneurysm was coiled last evening. ICP acceptable with drainage bloody as expected. Withdraws 4 limbs to pain. 04/13: ICP starting to rise > 20, requiring vent manipulation, increased sedation, analgesia. 04/14: Intermittently ICP spiking >20, RR increased to 18, 50 mg of rocuronium 1. CT angiogram done today to rule out vasospasm 04/15: Remains heavily sedated for ICP control. Overall ICP control improved overnight-remained 12-14. Currently on propofol fentanyl and Versed. CT angiogram done yesterday 04/14/16 showed status post endovascular repair of left supraclinoid aneurysm, left M1 segment aneurysm stable no vasospasm. 04/16: Remains hypoxemic, FiO2 had to be increased to 70%, now down to 60%. Chest x-ray shows increasing right lower lobe infiltrate sputum with gram- negative rods. Blood pressure remains at target 04/17: ICP remains elevated at 22-25. Became hypothermic overnight, likely related to worsening sepsis. Repeat panculture ordered, and vancomycin 04/18: Labile hypertension. Start patient limits expanded to 150-190 systolic. Became more hypoxic now on 90% FiO2. Chest x-ray shows slight increase in right lower lobe infiltrate. Sodium at target 04/19: Remains critically ill with intermittent ICP elevation. ABG shows respiratory alkalosis, minute ventilation reduce which caused ICP to increase further. 3% saline restarted and 23% saline 1 bolus ordered. Chest x-ray shows slight improvement in the right lower lung infiltrate 04/20: ICP elevated to 31, 23% bolus given with improvement to 12-15. Low-grade fever with increase in white count to 16.4. Will send panculture. CTA brain in am 04/21: Remains critically ill with intermittent ICP elevation. ICP controlled with 23% bolus. Keeping sodium 150-160. CT head, CTA 04/22/1604/22: CT of the head shows evolving left frontoparietal hemorrhage with increasing midline shift 1.5 cm left to right. Intermittent ICP elevation was responsive to 23% saline. D/W Neurosurgery. Objective - Vital Signs Date Time Temp Pulse Resp B/P Pulse Ox O2 Delivery O2 Flow Rate FiO2 04/22/16 17:01 100 50 04/22/16 16:00 97 04/22/16 16:00 98.7 19 177/85 Intake and Output 04/21/16 04/21/16 04/22/16 08:00 16:00 00:00 Intake Total 3336 ml 3185 ml 3353 ml Output Total 4529.0 ml 3521.0 ml 4970.0 ml Balance -1193.0 ml -336.0 ml -1617.0 ml Result Diagram: 04/22/16 0530 04/22/16 1335 Other Results Laboratory Tests Test 04/11/16 04/11/16 04/12/16 13:06 20:44 05:58 Blood Gas Puncture Site ART LINE ART LINE ART LINE Blood Gas Patient Temperature 98.6 98.6 98.6 Blood Gas HCO3 20 mmol/L 21 mmol/L 19 mmol/L (22-26) (22-26) (22-26) Blood Gas Base Excess -4.2 mmol/L -3.1 mmol/L -4.9 mmol/L (-2-2) (-2-2) (-2-2) Blood Gas Oxygen Saturation 98 % (90-100) 98 % (90-100) 97 % (90-100) Arterial Blood pH 7.40 7.42 7.42 (7.380-7.420) (7.380-7.420) (7.380-7.420) Arterial Blood Partial 33 mmHg (38-42) 33 mmHg (38-42) 30 mmHg (38-42) Pressure CO2 Arterial Blood Partial 372 mmHg 450 mmHg 135 mmHg Pressure O2 (61-120) (61-120) (61-120) Arterial Blood Oxygen Content 11.0 Vol % 10.2 Vol % 15.4 Vol % (12.0-20.0) (12.0-20.0) (12.0-20.0) Arterial Blood 1.5 % (0-4) 1.4 % (0-4) 1.3 % (0-4) Carboxyhemoglobin Arterial Blood Methemoglobin 1.2 % (0-2) 1.2 % (0-2) 1.1 % (0-2) Blood Gas Hemoglobin 7.3 G/DL 6.5 G/DL 11.2 G/DL (12.0-16.0) (12.0-16.0) (12.0-16.0) Oxygen Delivery Device VENT VENTILATOR VENTILATOR Blood Gas Ventilator Setting PRVC/20RATE/500/5PEE PRVC/AC PRVC/AC Blood Gas Inspired Oxygen 100 % 100 % 40 % Objective Remarks Infusions Propofol Fentanyl Versed Nimbex-DCd 04/21 GEN: Middle-aged female who is intubated heavily sedated, critically ill HEENT: Head: Atraumatic. EVD in place, 215 ml in 24 hours. Pupils 2mm nonreactive. Tongue swollen and protuberant NECK: Supple. No resistance to motion. Orally intubated. LUNGS: Clear, no wheezes or crackles. HEART: Normal S1-S2, tachycardia, no murmur or rub, neck veins are distended. ABDOMEN: Soft, nontender, nondistended, no guarding, bowel sounds present. EXTREMITIES: Warm, well-perfused, foot and wrist pulses intact. NEUROLOGIC: Pupils 2 mm nonreactive. Neuromuscular paralysis limits exam. ICP 15-20. EVD draining bloody CSF at 5cmH20 Urinary Catheter: Yes Assessment to: Continue Vascular Central Line Catheter: Yes Assessment to: Continue A/P Assessment and Plan Acute subarachnoid hemorrhage, left middle cerebral artery aneurysm Intracranial hypertension Acute respiratory failure on mechanical ventilation RLL pneumonia/E Coli in sputum Sepsis Acute encephalopathy Malignant hypertension Status post coiling of MCA aneurysm Hypokalemia History of hypertension Lactic acidosis PLAN: NEURO: Acute subarachnoid hemorrhage, left middle cerebral artery aneurysm Intracranial hypertension Acute encephalopathy CT of the head shows evolving left frontoparietal hemorrhage with increasing midline shift 1.5 cm left to right. No surgical intervention planned by N/S Sedation/analgesia (Propofol, Versed and Fentanyl) to help control ICP. Mild hypervolemia using CVP. Continue Ventricular drain. Keppra, Nimotop. Treat fever aggressively. Nimbex for ICP control-DCd 04/21/16 23% PRN for ICP >20. Keep Na 150-160 due to high ICP. Continue 3% gtt and continue NS gtt. Avoid hypoxia, hypercarbia CT angiogram done 04/14, 04/16/16, 04/22/16 showed status post endovascular repair of left supraclinoid aneurysm, left M1 segment aneurysm stable no vasospasm. Repeat CTA 04/22/16. No sedation vacation Continue with hypervolemia and hypertension for vasospasm prevention. Target SBP 180 for vasospasm prophylaxis. Continue Nimotop CV: Uncontrolled HTN, now permissive Target SBP 150-190 for vasospasm prophylaxis. Maintain preload, follow CVP, for hypervolemia. Use Levophed/Cardene PRN RESP: Acute respiratory failure HCAP PC/AC vent mode, adjust vent rate to keep EtCO2 38-33. Nebs prn and scheduled. Vent bundle. No vent weaning due to high ICP, severe encephalopathy Tracheostomy once ICP adequately controlled and cleared by N/S : Rebollar required for hourly output. Keep UO more than 30 mL per hour GI: Tube feeds to goal as tolerated, continue bowel regimen Lactulose to 30 ml q8. Dulcolax suppository PRN, Having BM HEME: Serial Hgb. Monitor CBC ID: Severe sepsis HCAP with E Coli, Haemophilus Sputum cx EColi, haemophilus and blood cultures neg to date. On Zosyn 4.5 GM IV q6 04/15/16. Levaquin was added 04/16/16 to cover for Stenotrophomonas -DCd 04/19, restarted again today Repeat panculture with blood urine and sputum cultures 04/17/16 negative to date CXR bilateral infiltrates, with leukocytosis and brown sputum Resend cultures due to low grade fever and increased WBC 04/20 -NEG to date ENDO: SSI for euglycemia, avoid hypokalemia, hypo Mag PX: SCDs. Protonix. Cleared by to use Lovenox for chemical DVT prophylaxis on 04/19/16 Overall impression: Severe SAH and left parenchymal bleed and ruptured aneurysm, with cerebral edema , elevated ICP. New HCAP and severe sepsis. Remains critically ill and prognosis guarded at best. Anticipate hospitalization > 4 weeks. Critical care 45 mins, d/w MATT BRUSH, bedside RN Mary Enamorado MD Apr 22, 2016 17:29
[2016-04-22 23:41] LABS: BLOOD GAS BASE EXCESS -0.7 mmol/L (-2-2); BLOOD GAS CARBOXYHEMOGLOBIN 1.4 % (0-4); BLOOD GAS HCO3 22 mmol/L (22-26); BLOOD GAS METHEMOGLOBIN 0.8 % (0-2); BLOOD GAS O2 HGB SATURATION 97 % (90-100); BLOOD GAS OXYGEN CONTENT 12.7 Vol % (12.0-20.0); BLOOD GAS PCO2 25 mmHg (38-42); BLOOD GAS PO2 167 mmHg (61-120); BLOOD GAS TOTAL HGB 9.1 G/DL (12.0-16.0); TEMP CORR TO 98.6
[2016-04-22 23:42] LABS: CRITICAL VALUE YES; OXYGEN DEVICE VENTILATOR
[2016-04-22 23:44] LABS: DRAW SITE ART LINE; FIO2 50 %; STAT NO; VENT SETTINGS PC/AC
[2016-04-23] VITALS (17 sets, daily range): BP systolic 156–197; BP diastolic 69–90; PULSE 74–93; RESP 15; TEMP 98–99.7; O2SAT 95–100
[2016-04-23] MEDS: METOPROLOL TARTRATE 25 MG TAB PO SCH ×4 (00:01→21:24)
[2016-04-23 00:03] LABS: STAT NO
[2016-04-23] MEDS: SODIUM CHLORIDE 23.4% INJ 240 MEQ in SYRINGE/BAG 1 EA IV PRN ×2 (00:14→15:08)
[2016-04-23] MEDS: PROPOFOL 1000 MG/100 ML IV SCH ×7 (00:32→21:12)
[2016-04-23] MEDS: fentaNYL DRIP 250 ML IV SCH ×3 (00:52→21:12)
[2016-04-23] MEDS: MIDAZOLAM 100 MG/ML INJ 100 ML IV SCH ×3 (00:52→18:11)
[2016-04-23] MEDS: VANCOMYCIN INJ 1,500 MG in SODIUM CHLORID 0.9% 500 ML INJ 500 ML IV SCH ×2 (00:53→14:34)
[2016-04-23 00:57] LABS: ALT (GPT) 37 U/L (10-53); ANION GAP 8 MEQ/L (5-15); AST (GOT) 49 U/L (15-37); BICARBONATE 24.4 MEQ/L (21.0-32.0); BLOOD UREA NITROGEN 7 MG/DL (7-18); CHLORIDE 123 MEQ/L (98-107); GLOMERULAR FILTRATION RATE 132 ML/MIN (>89); MAGNESIUM 1.6 MG/DL (1.5-2.5); POTASSIUM 3.1 MEQ/L (3.5-5.1); SODIUM (NA) 155 MEQ/L (136-145)
[2016-04-23 00:59] LABS: ALKALINE PHOSPHATASE 159 U/L (45-117); TOTAL BILIRUBIN ADULT 0.6 MG/DL (0.2-1.0)
[2016-04-23] MEDS: CHLORHEXIDINE GLUCONATE 2 % 1 PACK (2 CLOTHS) TOP SCH (03:54)
[2016-04-23] MEDS: niMODipine 30 MG CAP PO SCH ×6 (03:54→21:12)
[2016-04-23] MEDS: PIPERACIL-TAZO 4.5 GM PREMIX 100 ML IV SCH ×4 (03:54→21:13)
[2016-04-23 04:31] LABS: AUTOMATED NEUTROPHIL # 14.4 TH/MM3 (1.8-7.7); BASOPHIL # 0.1 TH/MM3 (0-0.2); BASOPHIL % 0.4 % (0.0-2.0); EOSINOPHIL # 0.4 TH/MM3 (0-0.4); EOSINOPHIL % 2.6 % (0.0-4.0); HEMATOCRIT 26.8 % (35.0-46.0); LYMPH % 7.6 % (9.0-44.0); LYMPHOCYTE # 1.3 TH/MM3 (1.0-4.8); MEAN CELL VOLUME 73.5 FL (80.0-100.0); MEAN CORPUSCULAR HGB CONC 32.6 % (32.0-36.0); MONO % 4.8 % (0.0-8.0); NEUT % 84.6 % (16.0-70.0); PLATELET COUNT 240 TH/MM3 (150-450); RED BLOOD COUNT 3.65 MIL/MM3 (4.00-5.30); RED CELL DISTRIBUTION WIDTH 27.3 % (11.6-17.2)
[2016-04-23 04:41] LABS: HEMO FLAGS AUTO DIFF
[2016-04-23 04:53] LABS: MAGNESIUM 1.6 MG/DL (1.5-2.5)
[2016-04-23] MEDS: POTASSIUM CHLOR 40 MEQ PREMIX 100 ML IV PRN (05:19)
--- NOTE | 2016-04-23 05:32 | RADRPT ---
EXAM DATE/TIME: 04/23/2016 03:20 [place] COMPARISON: CHEST SINGLE AP, April 22, 2016, 4:03. INDICATIONS : Shortness of breath. MEDICAL HISTORY : Hypertension. SURGICAL HISTORY : Tubal ligation. ENCOUNTER: Subsequent ACUITY: 2 weeks PAIN SCORE: Non-responsive. LOCATION: Bilateral chest FINDINGS: The support devices remain in place. There is no pneumothorax. There are mild bibasilar infiltrates w hich appear to be stable. The heart size is stable. No new infiltrates are seen. The bony structures are stable. CONCLUSION: No significant interval change. Alfonso Escoto MD on April 23, 2016 at 5:29 Board Certified Radiologist. This report was verified electronically.
[2016-04-23 06:09] LABS: SCAN/DIFF AUTO DIFF CONFIRMED
[2016-04-23 06:10] LABS: OVALOCYTES 1+ (NORMAL); TARGET CELLS 1+ (NORMAL)
[2016-04-23] MEDS: NS + KCL 20 MEQ INJ 1,000 ML IV SCH ×2 (06:48→23:21)
[2016-04-23] MEDS: SODIUM CHLORIDE 0.9% FLUSH 5 ML FLUSH IVF SCH ×2 (07:29→21:00)
--- NOTE | 2016-04-23 08:01 | HHI.CCPN ---
Subjective Remarks/Hospital Course SAH, unresponsive, malignant hypertension - This 46-year-old woman with a longstanding history of hypertension, was found unresponsive at her home and paramedics arrived to find her with shallow breathing and a Angelica coma scale of three. Systolic blood pressure was 290 and under bag mask ventilation. She was brought to the emergency department where she remained unresponsive and required endotracheal intubation, mechanical ventilation. A CT scan of the head showed a large left hemispheric intraparenchymal hemorrhage with subarachnoid blood as well. Subsequent evaluation confirmed a left middle cerebral artery aneurysm which appears to be the culprit lesion. She was brought immediately to the [facility] where we continued Cardene drip infusion for blood pressure control and placed arterial monitoring lines and central venous line. Electrolyte abnormalities were corrected, particularly severe hypokalemia. The ventilator was adjusted to maintain arterial CO2, between 35 and 40. She received Keppra loading intravenously and Nimotop through the nasogastric tube. Usual ICU monitoring was in place and arrangements were made, a ventriculostomy was placed, and transported expeditiously to interventional radiology where attempts will be made to coil the aneurysm. 04/12: Culprit (larger) aneurysm was coiled last evening. ICP acceptable with drainage bloody as expected. Withdraws 4 limbs to pain. 04/13: ICP starting to rise > 20, requiring vent manipulation, increased sedation, analgesia. 04/14: Intermittently ICP spiking >20, RR increased to 18, 50 mg of rocuronium 1. CT angiogram done today to rule out vasospasm 04/15: Remains heavily sedated for ICP control. Overall ICP control improved overnight-remained 12-14. Currently on propofol fentanyl and Versed. CT angiogram done yesterday 04/14/16 showed status post endovascular repair of left supraclinoid aneurysm, left M1 segment aneurysm stable no vasospasm. 04/16: Remains hypoxemic, FiO2 had to be increased to 70%, now down to 60%. Chest x-ray shows increasing right lower lobe infiltrate sputum with gram- negative rods. Blood pressure remains at target 04/17: ICP remains elevated at 22-25. Became hypothermic overnight, likely related to worsening sepsis. Repeat panculture ordered, and vancomycin 04/18: Labile hypertension. Start patient limits expanded to 150-190 systolic. Became more hypoxic now on 90% FiO2. Chest x-ray shows slight increase in right lower lobe infiltrate. Sodium at target 04/19: Remains critically ill with intermittent ICP elevation. ABG shows respiratory alkalosis, minute ventilation reduce which caused ICP to increase further. 3% saline restarted and 23% saline 1 bolus ordered. Chest x-ray shows slight improvement in the right lower lung infiltrate 04/20: ICP elevated to 31, 23% bolus given with improvement to 12-15. Low-grade fever with increase in white count to 16.4. Will send panculture. CTA brain in am 04/21: Remains critically ill with intermittent ICP elevation. ICP controlled with 23% bolus. Keeping sodium 150-160. CT head, CTA 04/22/1604/22: CT of the head shows evolving left frontoparietal hemorrhage with increasing midline shift 1.5 cm left to right. Intermittent ICP elevation was responsive to 23% saline. D/W Neurosurgery. 04/23: Intubated and ICP elevation up to 27, optimized on medical therapy and hyperosmolar therapy. Prognosis very poor according to neurosurgery. Per Dr. Ruiz, patient has suffered significant dominant hemisphere frontal temporal lobe hemorrhage and and consequent cerebral injury which reduces likelihood of functional recovery. Palliative care consulted-will meet with family today Objective - Vital Signs Date Time Temp Pulse Resp B/P Pulse Ox O2 Delivery O2 Flow Rate FiO2 04/23/16 06:00 84 185/90 04/23/16 04:00 98.8 15 100 04/23/16 04:00 55 Intake and Output 04/22/16 04/22/16 04/23/16 08:00 16:00 00:00 Intake Total 2696 ml 3416 ml 2629 ml Output Total 2574.0 ml 4285.0 ml 7456 ml Balance 122.0 ml -869.0 ml -4827 ml Result Diagram: 04/23/16 0400 04/23/16 0400 Other Results Laboratory Tests Test 04/11/16 04/11/16 04/12/16 13:06 20:44 05:58 Blood Gas Puncture Site ART LINE ART LINE ART LINE Blood Gas Patient Temperature 98.6 98.6 98.6 Blood Gas HCO3 20 mmol/L 21 mmol/L 19 mmol/L (22-26) (22-26) (22-26) Blood Gas Base Excess -4.2 mmol/L -3.1 mmol/L -4.9 mmol/L (-2-2) (-2-2) (-2-2) Blood Gas Oxygen Saturation 98 % (90-100) 98 % (90-100) 97 % (90-100) Arterial Blood pH 7.40 7.42 7.42 (7.380-7.420) (7.380-7.420) (7.380-7.420) Arterial Blood Partial 33 mmHg (38-42) 33 mmHg (38-42) 30 mmHg (38-42) Pressure CO2 Arterial Blood Partial 372 mmHg 450 mmHg 135 mmHg Pressure O2 (61-120) (61-120) (61-120) Arterial Blood Oxygen Content 11.0 Vol % 10.2 Vol % 15.4 Vol % (12.0-20.0) (12.0-20.0) (12.0-20.0) Arterial Blood 1.5 % (0-4) 1.4 % (0-4) 1.3 % (0-4) Carboxyhemoglobin Arterial Blood Methemoglobin 1.2 % (0-2) 1.2 % (0-2) 1.1 % (0-2) Blood Gas Hemoglobin 7.3 G/DL 6.5 G/DL 11.2 G/DL (12.0-16.0) (12.0-16.0) (12.0-16.0) Oxygen Delivery Device VENT VENTILATOR VENTILATOR Blood Gas Ventilator Setting PRVC/20RATE/500/5PEE PRVC/AC PRVC/AC Blood Gas Inspired Oxygen 100 % 100 % 40 % Objective Remarks Infusions Propofol Fentanyl Versed Nimbex-DCd 04/21 GEN: Middle-aged female who is intubated heavily sedated, critically ill HEENT: Head: Atraumatic. EVD in place, 211 ml in 24 hours. Pupils 2mm nonreactive. Tongue swollen and protuberant NECK: Supple. No resistance to motion. Orally intubated. LUNGS: Clear, no wheezes or crackles. HEART: Normal S1-S2, tachycardia, no murmur or rub, neck veins are distended. ABDOMEN: Soft, nontender, nondistended, no guarding, bowel sounds present. EXTREMITIES: Warm, well-perfused, foot and wrist pulses intact. NEUROLOGIC: Pupils 2 mm nonreactive, positive corneal. No withdrawal to pain. ICP 15-27. EVD draining bloody CSF at 5cmH20 A/P Assessment and Plan Acute subarachnoid hemorrhage, left middle cerebral artery aneurysm Intracranial hypertension Acute respiratory failure on mechanical ventilation RLL pneumonia/E Coli in sputum Sepsis Acute encephalopathy Malignant hypertension Status post coiling of MCA aneurysm Hypokalemia History of hypertension Lactic acidosis PLAN: NEURO: Acute subarachnoid hemorrhage, left middle cerebral artery aneurysm Intracranial hypertension Acute encephalopathy CT of the head shows evolving left frontoparietal hemorrhage with increasing midline shift 1.5 cm left to right. No surgical intervention planned by N/S. prognosis poor per neurosurgery,Per Dr. Ruiz, patient has suffered significant dominant hemisphere frontal temporal lobe hemorrhage and consequent cerebral injury which reduces likelihood of functional recovery. Palliative care meeting with family today Sedation/analgesia (Propofol, Versed and Fentanyl) to help control ICP. Mild hypervolemia using CVP. Continue Ventricular drain. Keppra, Nimotop. Treat fever aggressively. Nimbex for ICP control-DCd 04/21/16 23% PRN for ICP >20. Keep Na 150-160 due to high ICP. Continue 3% gtt and continue NS gtt. CT angiogram done 04/14, 04/16/16, 04/22/16 showed status post endovascular repair of left supraclinoid aneurysm, left M1 segment aneurysm stable no vasospasm. Continue with hypervolemia and hypertension for vasospasm prevention. Target SBP 180 for vasospasm prophylaxis. CV: Uncontrolled HTN, now permissive Target SBP 150-190 for vasospasm prophylaxis. Maintain preload, follow CVP, for hypervolemia. Use Levophed/Cardene PRN Continue Nimotop RESP: Acute respiratory failure HCAP PC/AC vent mode, adjust vent rate to keep EtCO2 28-33. Nebs prn and scheduled. Vent bundle. No vent weaning due to high ICP, severe encephalopathy Tracheostomy once ICP adequately controlled and cleared by N/S : Rebollar required for hourly output. Keep UO more than 30 mL per hour GI: Tube feeds to goal as tolerated, continue bowel regimen Lactulose to 30 ml q8. Dulcolax suppository PRN, Having BM HEME: Serial Hgb. Monitor CBC ID: Severe sepsis HCAP with E Coli, Haemophilus Sputum cx EC andrea, haemophilus and blood cultures neg to date. On Zosyn 4.5 GM IV q6 04/15/16. Levaquin was added 04/16/16 to cover for Stenotrophomonas -DCd 04/19, restarted again 04/20/16 Repeat panculture with blood urine and sputum cultures 04/17/16 negative to date CXR bilateral infiltrates, with leukocytosis and brown sputum Resend cultures due to low grade fever and increased WBC 04/20 -NEG to date ENDO: SSI for euglycemia, avoid hypokalemia, hypo Mag PX: SCDs. Protonix. Cleared by to use Lovenox for chemical DVT prophylaxis on 04/19/16 Overall impression: Severe SAH and left parenchymal bleed and ruptured aneurysm, with cerebral edema , elevated ICP. New HCAP and severe sepsis. Remains critically ill and prognosis guarded at best. Prognosis poor with L frontal hemorrhage- palliative care meeting today Critical care 45 mins, d/w MATT BRUSH, bedside RN Mary Enamorado MD Apr 23, 2016 08:01
[2016-04-23] MEDS: PANTOPRAZOLE SODIUM 40 MG VIAL IV SCH (08:53)
[2016-04-23] MEDS: METOCLOPRAMIDE HCL SYRUP 10 MG/10 ML UDC PO SCH ×3 (08:53→16:55)
[2016-04-23] MEDS: LACTULOSE SYRUP 20 GM/30 ML CUP PO SCH (08:54)
[2016-04-23] MEDS: levETIRAcetam 500MG PREMIX INJ 100 ML IV SCH (08:54)
[2016-04-23] MEDS: 3% SALINE INJ 500 ML IV SCH (08:56)
--- NOTE | 2016-04-23 09:26 | HHI.NSPN ---
History Chief Complaint: status post coil for aneurysm Interval History 04/12/16: Patient had an aneurysm coiled yesterday, intubated and sedated, ICP stable overnight 04/13/16: Increased ICP overnight, improved after a 23% saline bolus 04/14/16: ICP stable overnight 04/15/16: ICP stable, CTA stable no vasospasm 04/16/16: ICP slight increase overnight now stabilized, intubated and sedated 04/17/16: ICP increased yesterday afternoon, repeat CTA and CT stable, no vasospasm, no new hemorrhage, hypothermia overnight 04/21/16: increasing ICP over the weekend, getting 23% every 6 hours PRN. 04/22/16: ICP responding over night to 23% saline, CT and CTA planned this am. Nimbex off since yesterday. 04/23/16: ICP stable overnight, SBP increasing today RN adjusting pressors, HGB improved after 2 units of PRBC, no signs of active bleeding Exam Results Vital Signs Date Time Temp Pulse Resp B/P Pulse Ox O2 Delivery O2 Flow Rate FiO2 04/23/16 06:00 84 185/90 04/23/16 04:00 98.8 15 100 04/23/16 04:00 55 Intake and Output 04/22/16 04/22/16 04/23/16 08:00 16:00 00:00 Intake Total 2696 ml 3416 ml 2629 ml Output Total 2574.0 ml 4285.0 ml 7456 ml Balance 122.0 ml -869.0 ml -4827 ml Physical Examination Intubated and sedated. No spontaneous eye opening. Absent conjugate oculocephalics. Pupils are 2 mm and non-reactive. Absent corneals. Persistent angioedema. Abdomen soft. Coarse rhonchi bilaterally. 3+/6 systolic murmur. Sedation limits exam. No withdrawal x 4. Plantar neutral. ICP 7 CPP 124 EVD draining bloody CSF at 0cmH20. Lab, Micro, Other Results Last Impressions Chest X-Ray 04/23/16 0600 Signed Impressions: Service Date/Time: Saturday, April 23, 2016 03:20 - CONCLUSION: No significant interval change. Alfonso Escoto MD Head CTA 04/22/16 0600 Signed Impressions: Service Date/Time: Friday, April 22, 2016 09:26 - CONCLUSION: 1. The intracranial circulation remains patent. The exam demonstrates significantly more edema surrounding the patient's large area of intraparenchymal hemorrhage on the left. There is at least 1.3 cm of left to right falcine shift. This is significantly worse when compared to the previous examination. This appears to be the result of worsening edema around the patient's intraparenchymal hemorrhage. Eric Castellanos MD Head CT 04/22/16 0600 Signed Impressions: Service Date/Time: Friday, April 22, 2016 09:26 - CONCLUSION: Evolving left frontotemporal hemorrhage with mass effect and increasing left to right midline shift of 15 mm. Subarachnoid hemorrhage and intraventricular hemorrhage again seen. Nathen Howard MD Neck CTA 04/11/16 1151 Signed Impressions: Service Date/Time: Monday, April 11, 2016 12:01 - CONCLUSION: Negative for hemodynamically significant carotid stenosis. Ricardo Castellanos MD FACR Cerebral Arteriogram 04/11/16 0000 Signed Impressions: Service Date/Time: Monday, April 11, 2016 14:18 - CONCLUSION: 1. 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 This is the aneurysm felt responsible for the intracranial hemorrhage. 2. Small 4 mm left M1 segment aneurysm. Attempts at embolizing this aneurysm were unsuccessful due to the broad based nature of the aneurysm. Endovascular repair of this aneurysm could not be performed. Kennedy Thibodeaux Jr., MD Laboratory Tests Test 04/22/16 04/22/16 04/22/16 04/22/16 10:15 11:00 13:35 14:09 Blood Type O POSITIVE O POSITIVE Antibody Screen NEGATIVE Crossmatch Leukocyte-Reduced Leukocyte-Reduced Red Blood Red Blood Cells Cells Blood Bank Comment Sodium Level 155 MEQ/L Serum Osmolality 316 MOSM/KG Potassium Level 3.3 MEQ/L Vancomycin Level Trough 15.7 MCG/ML Test 04/22/16 04/22/16 04/23/16 04/23/16 17:00 23:27 00:05 04:00 Sodium Level 155 MEQ/L 155 MEQ/L 158 MEQ/L Serum Osmolality 318 MOSM/KG 318 MOSM/KG 319 MOSM/KG Blood Gas Puncture Site ART LINE Blood Gas Patient Temperature 98.6 Blood Gas HCO3 22 mmol/L Blood Gas Base Excess -0.7 mmol/L Blood Gas Oxygen Saturation 97 % Arterial Blood pH 7.55 Arterial Blood Partial 25 mmHg Pressure CO2 Arterial Blood Partial 167 mmHg Pressure O2 Arterial Blood Oxygen Content 12.7 Vol % Arterial Blood 1.4 % Carboxyhemoglobin Arterial Blood Methemoglobin 0.8 % Blood Gas Hemoglobin 9.1 G/DL Oxygen Delivery Device VENTILATOR Blood Gas Ventilator Setting PC/AC Blood Gas Inspired Oxygen 50 % Potassium Level 3.1 MEQ/L Chloride Level 123 MEQ/L Carbon Dioxide Level 24.4 MEQ/L Anion Gap 8 MEQ/L Blood Urea Nitrogen 7 MG/DL Creatinine 0.59 MG/DL Estimat Glomerular Filtration 132 ML/MIN Rate Random Glucose 91 MG/DL Calcium Level 8.4 MG/DL Phosphorus Level 2.6 MG/DL Magnesium Level 1.6 MG/DL 1.6 MG/DL Total Bilirubin 0.6 MG/DL Aspartate Amino Transf 49 U/L (AST/SGOT) Alanine Aminotransferase 37 U/L (ALT/SGPT) Alkaline Phosphatase 159 U/L Total Protein 6.3 GM/DL Albumin 1.5 GM/DL White Blood Count 17.0 TH/MM3 Red Blood Count 3.65 MIL/MM3 Hemoglobin 8.7 GM/DL Hematocrit 26.8 % Mean Corpuscular Volume 73.5 FL Mean Corpuscular Hemoglobin 24.0 PG Mean Corpuscular Hemoglobin 32.6 % Concent Red Cell Distribution Width 27.3 % Platelet Count 240 TH/MM3 Mean Platelet Volume 8.6 FL Neutrophils (%) (Auto) 84.6 % Lymphocytes (%) (Auto) 7.6 % Monocytes (%) (Auto) 4.8 % Eosinophils (%) (Auto) 2.6 % Basophils (%) (Auto) 0.4 % Neutrophils # (Auto) 14.4 TH/MM3 Lymphocytes # (Auto) 1.3 TH/MM3 Monocytes # (Auto) 0.8 TH/MM3 Eosinophils # (Auto) 0.4 TH/MM3 Basophils # (Auto) 0.1 TH/MM3 CBC Comment AUTO DIFF Differential Comment AUTO DIFF CONFIRMED Target Cells 1+ Ovalocytes 1+ Medical Decision Making Impression and Plan Impression: 1. S/P endovascular coiling of ruptured cerebral aneurysm. 04/14/16 CT angiogram stable: Status post endovascular repair of left supraclinoid aneurysm. Left M1 segment aneurysm stable 04/16/[address] and CTA stable. No vasospasm, no new hemorrhage. 04/25/16: Head CT and CTA pending Plan: family meeting planned today at 0945, daughter is not at bedside at 1015. Per Palliative she is on her way. Continue ventilatory support and sedation. Maintain ventriculostomy at 0cmH20 Nimodipine for vasospasm prophylaxis. Maintain systolic blood pressure 180-200 range Continue to monitor sodium level, keep 145-155 range. Decrease maintenance fluids. Enterer following for medical management Keppra for seizure prophylaxis. Protonix for ulcer prophylaxis Hold Lovenox until HGB is stabilized for a few days Discussed with RN at bedside. The patient was seen and examined by Dr. Morris and myself. This note was written on her behalf. Genna Madrid Apr 23, 2016 09:26
[2016-04-23] MEDS: MAGNESIUM SULFATE INJ 2 GM in SODIUM CHLORIDE 0.9% INJ 96 ML IV PRN (09:49)
--- NOTE | 2016-04-23 10:52 | HHI.HCPN ---
Reason for visit a. To assist with evaluation and management of symptoms including: encephalopathy b. To assist medical decision maker(s) with: better understanding of current medical conditions; weighing benefits/burdens of medical treatment options; making medical treatment decisions. Subjective/Interval History Patient seen today to follow-up on plan family meeting regarding prognosis, goals for 0945AM today. Met with patient's family (niece, brother, daughter) with neurosurgery Dali BRUSH for approx 40 minutes. Patient remains sedated on mechanical vent. No change in neuro assessment per nursing. Remains on Levophed, Versed, Diprivan, fentanyl. +on 3% saline. ICPs continue to fluctuate 610-20. Pancultures obtained 04/20 with no growth. CXR today stable no significant changes. To my exam no response to stimuli. Eyes today noted with right gaze. Pupils nonreactive. No signs of distress or discomfort. History brought forward from initial consult by Jillian AKBAR on 04/22/16: This 46 year old female presented to the ED on 04/11/16, apparently found on the ground unresponsive by family members, EMS was activated. EMS found her with a GCS of 3 and blood pressure to 90 systolic. She required respiratory ventilation support. She was unresponsive and unable to provide additional history. * She was intubated on arrival to the ED. Cardene was initiated for hypotension. CT brain obtained for suspected hemorrhage, CT brain indicates large left hemispheric intraparenchymal hemorrhage with subarachnoid blood. Suspected MCA aneurysm rupture, CTA head and neck pending. Neurosurgery consulted. Admitted to the ICU ,emergent ventriculostomy placement by neuro. * Neuro exam notes absent deep tendon reflexes, no withdrawal to stimuli weak cough reflex pupils 2 mm and nonreactive. Prognosis guarded given significant areas of hemorrhage--cerebral angiogram indicates to aneurysm. Planned for interventional radiology for attempted coiling. Initiated on Keppra, pneumatized. * 04/11 to IR for attempting coiling of 2 aneurysms. Large and most complex involves left posterior cerebral origin. Successful coil embolization of the largest aneurysm. Attempted coiling embolization of other M1 aneurysm on left not successful unable to treat at aneurysm via endovascular methods. * 04/13 ICP increasing, > 20, cerebral edema, requiring ventilator adjustments, increased sedation and analgesia--received 23% saline bolus //neurosurgery discussed with patient's family at bedside * 04/15 continues to require heavy sedation for ICP control, somewhat improved on sedation. Repeat CT angiogram indicated status post endovascular repair left aneurysm left M1 segment stable no vasospasm. * 04/16 hypoxemic FiO2 increased to 70%, CXR= lower lobe infiltrate, sputum+ or negative rods. Clinical exam: Pulse 2 mm nonreactive. No withdrawal 4 extremities. * 04/17 ICP elevated, hypothermic? Related to sepsis, pancultures pending, on Vanco --- later initiated on paralytics * 04/21 still critically ill on mechanical vent. Intermittent ICP elevations. Requiring 23% saline boluses. Paralytic Nimbex DC'd. Repeat CT angiogram planned for 04/22 * 04/22EE no seizure activity noted. Slightly asynchrony no focal abnormality. CTA head 04/22 no vasospasm some perfusion. Palliative care consulted by neuro to assist family with clarification of goals of treatment. Hemoglobin low 6.8, ordered for RBC transfusion-Bumex 1 following. WBC 14.3. Patient seen in room no visitors present. Nursing indicates no family in as of yet today. She is sedated on mechanical vent, critically ill-appearing. Nonresponsive to my exam, no gag reflex when nursing provide suction during my exam. Currently on Cardene drip, Versed drip at 10 mg an hour, Diprivan drip at 15 mics/kg/minute, fentanyl drip at 250 mcgs/ hour, 3% saline at 40 mL/ hour and receiving second unit rbc's today. Primary nurse informs neurosurgery Dr. Ruiz by shortly before my exam and they indicated no plans for surgical intervention at this time. Following exam call to daughter, provided brief general medical update, assessment overview, arranged to meet with her tomorrow Thursday04/23/16 around 9:45 AM. Family/friend interactions 1000: Met with patient daughter Solo, niece(sister Donna daughter) and brother . Dali Madrid -alem BRUSH also participated in family meeting. Discussion included: * Palliative care role, team members, reason for consult * Additional medical/social/spiritual history--patient and family currently well supported by Ed Tech in their family * Patient cognitive and functional status in the months to weeks prior to this admission * Patient and/or family understanding of current medical conditions prognosis treatment options and treatments; alternatively reviewed that patient has a right to refuse interventions/treatments (via family/legal decision-maker) and focus on comfort only * Overall condition, prognosis * Legal decision maker-per [place] statutes would fall to patient adult daughter * CODE STATUS, what resuscitation entails * Palliative care contact information provided Extensive review of hospital course thus far and current clinical condition and likely trajectory, prognosis. All questions answered. Family seems to have reasonable understanding of conditions and likely prognosis. Goals are aggressive. Palliative will continue to follow to assist in providing decision- maker medical updates, as condition evolves. Advance Directives Living Will: Never completed Health Care Surrogate: Never completed Durable Power of Aviation Manager: Never completed Objective Vital Signs Date Time Temp Pulse Resp B/P Pulse Ox O2 Delivery O2 Flow Rate FiO2 04/23/16 10:11 98 40 04/23/16 10:00 93 04/23/16 08:00 89 04/23/16 08:00 98.7 91 15 172/69 99 04/23/16 08:00 40 04/23/16 06:00 84 185/90 04/23/16 06:00 84 04/23/16 04:00 98.8 85 15 156/81 100 04/23/16 04:00 85 04/23/16 04:00 55 04/23/16 03:34 100 50 04/23/16 02:00 84 04/23/16 00:00 55 04/23/16 00:00 79 04/23/16 00:00 98.0 79 15 186/89 100 04/22/16 23:50 100 50 04/22/16 22:00 81 04/22/16 20:00 104 04/22/16 20:00 55 04/22/16 20:00 98.8 107 17 155/85 100 04/22/16 19:28 98 50 04/22/16 18:00 97 04/22/16 18:00 90 176/91 04/22/16 17:01 100 50 04/22/16 16:00 97 04/22/16 16:00 55 04/22/16 16:00 98.7 97 19 177/85 100 04/22/16 14:00 90 04/22/16 12:55 100 50 04/22/16 12:00 98.6 88 19 186/99 100 04/22/16 12:00 55 04/22/16 12:00 88 Intake & Output 04/23/16 04/23/16 07:00 19:00 Intake Total 4675 ml Output Total 8926 ml Balance -4251 ml IV Total 4116 ml Lipid 379 ml Tube Irrigant 180 ml Output Urine Total 8750 ml Stool Total 50 ml Drainage Total 126 ml Physical Exam CONSTITUTIONAL/GENERAL: This is an adequately nourished patient, in no apparent distress, critically ill on mechanical vent. TUBES/LINES/DRAINS: Central line left subclavian, Rebollar catheter, rectal drain, ventriculostomy, ET tube, OG tube EYES: Pupils 2 mm, nonreactive to light. rightward gaze. + Scleral edema. No scleral icterus. No injection or drainage. Fundi not examined. CARDIOVASCULAR: Regular rate and rhythm,+murmur. Peripheral pulses symmetric.+ Generalized edema. RESPIRATORY/CHEST: Symmetric, unlabored respirations via mechanical vent, no spontaneous respirations over vent rate. Course breath sounds throughout. GASTROINTESTINAL: Abdomen soft, unable to assess tenderness, nondistended. Bowel sounds hypoactive. Tube feeding held, OG tube clamped. + Liquid stool present in rectal drain. GENITOURINARY: Without palpable bladder distension. Rebollar catheter in place. NEUROLOGICAL: Sedated on mechanical vent. Nonresponsive to exam. Pupils nonreactive 2 mm, with rightward gaze. PSYCHIATRIC: unable to assess due to clinical condition. No apparent anxiety or tachypnea. Diagnostic Tests Laboratory Laboratory Tests Test 04/20/16 04/20/16 04/21/16 04/21/16 12:00 18:15 00:00 05:00 Sodium Level 148 MEQ/L 150 MEQ/L 149 MEQ/L 153 MEQ/L (136-145) (136-145) (136-145) (136-145) Serum Osmolality 307 MOSM/KG 311 MOSM/KG 308 MOSM/KG 312 MOSM/KG (275-295) (275-295) (275-295) (275-295) Phosphorus Level 2.5 MG/DL (2.5-4.9) Magnesium Level 2.6 MG/DL 1.5 MG/DL (1.5-2.5) (1.5-2.5) Thyroid Stimulating Hormone 0.909 uIU/ML 3rd Gen (0.358-3.740) White Blood Count 13.8 TH/MM3 (4.0-11.0) Red Blood Count 3.35 MIL/MM3 (4.00-5.30) Hemoglobin 7.5 GM/DL (11.6-15.3) Hematocrit 23.8 % (35.0-46.0) Mean Corpuscular Volume 70.9 FL (80.0-100.0) Mean Corpuscular Hemoglobin 22.4 PG (27.0-34.0) Mean Corpuscular Hemoglobin 31.6 % Concent (32.0-36.0) Red Cell Distribution Width 28.6 % (11.6-17.2) Platelet Count 221 TH/MM3 (150-450) Mean Platelet Volume 8.5 FL (7.0-11.0) Neutrophils (%) (Auto) 73.1 % (16.0-70.0) Lymphocytes (%) (Auto) 15.5 % (9.0-44.0) Monocytes (%) (Auto) 7.1 % (0.0-8.0) Eosinophils (%) (Auto) 3.8 % (0.0-4.0) Basophils (%) (Auto) 0.5 % (0.0-2.0) Neutrophils # (Auto) 10.1 TH/MM3 (1.8-7.7) Lymphocytes # (Auto) 2.1 TH/MM3 (1.0-4.8) Monocytes # (Auto) 1.0 TH/MM3 (0-0.9) Eosinophils # (Auto) 0.5 TH/MM3 (0-0.4) Basophils # (Auto) 0.1 TH/MM3 (0-0.2) CBC Comment AUTO DIFF Differential Comment AUTO DIFF CONFIRMED Ovalocytes 1+ (NORMAL) Potassium Level 3.3 MEQ/L (3.5-5.1) Chloride Level 122 MEQ/L (98-107) Carbon Dioxide Level 24.0 MEQ/L (21.0-32.0) Anion Gap 7 MEQ/L (5-15) Blood Urea Nitrogen 6 MG/DL (7-18) Creatinine 0.52 MG/DL (0.50-1.00) Estimat Glomerular Filtration 152 ML/MIN Rate (>89) Random Glucose 118 MG/DL (74-106) Calcium Level 7.9 MG/DL (8.5-10.1) Total Bilirubin 0.4 MG/DL (0.2-1.0) Aspartate Amino Transf 38 U/L (15-37) (AST/SGOT) Alanine Aminotransferase 30 U/L (10-53) (ALT/SGPT) Alkaline Phosphatase 118 U/L (45-117) Total Protein 5.8 GM/DL (6.4-8.2) Albumin 1.4 GM/DL (3.4-5.0) Test 04/21/16 04/21/16 04/21/16 04/22/16 09:00 11:40 18:25 00:23 Blood Gas Puncture Site ART LINE Blood Gas Patient Temperature 98.6 Blood Gas HCO3 23 mmol/L (22-26) Blood Gas Base Excess -0.5 mmol/L (-2-2) Blood Gas Oxygen Saturation 96 % (90-100) Arterial Blood pH 7.47 (7.380-7.420) Arterial Blood Partial 31 mmHg (38-42) Pressure CO2 Arterial Blood Partial 103 mmHg Pressure O2 (61-120) Arterial Blood Oxygen Content 10.3 Vol % (12.0-20.0) Arterial Blood 1.5 % (0-4) Carboxyhemoglobin Arterial Blood Methemoglobin 0.8 % (0-2) Blood Gas Hemoglobin 7.5 G/DL (12.0-16.0) Oxygen Delivery Device VENTILATOR Blood Gas Liter Flow L/M Blood Gas Inspired Oxygen 55 % Sodium Level 151 MEQ/L 153 MEQ/L 157 MEQ/L (136-145) (136-145) (136-145) Serum Osmolality 311 MOSM/KG 315 MOSM/KG 324 MOSM/KG (275-295) (275-295) (275-295) Test 04/22/16 04/22/16 04/22/16 04/22/16 05:30 10:15 11:00 13:35 White Blood Count 14.3 TH/MM3 (4.0-11.0) Red Blood Count 3.03 MIL/MM3 (4.00-5.30) Hemoglobin 6.8 GM/DL (11.6-15.3) Hematocrit 21.7 % (35.0-46.0) Mean Corpuscular Volume 71.6 FL (80.0-100.0) Mean Corpuscular Hemoglobin 22.5 PG (27.0-34.0) Mean Corpuscular Hemoglobin 31.5 % Concent (32.0-36.0) Red Cell Distribution Width 28.8 % (11.6-17.2) Platelet Count 242 TH/MM3 (150-450) Mean Platelet Volume 8.6 FL (7.0-11.0) Neutrophils (%) (Auto) 77.0 % (16.0-70.0) Lymphocytes (%) (Auto) 12.6 % (9.0-44.0) Monocytes (%) (Auto) 5.0 % (0.0-8.0) Eosinophils (%) (Auto) 4.0 % (0.0-4.0) Basophils (%) (Auto) 1.4 % (0.0-2.0) Neutrophils # (Auto) 11.0 TH/MM3 (1.8-7.7) Lymphocytes # (Auto) 1.8 TH/MM3 (1.0-4.8) Monocytes # (Auto) 0.7 TH/MM3 (0-0.9) Eosinophils # (Auto) 0.6 TH/MM3 (0-0.4) Basophils # (Auto) 0.2 TH/MM3 (0-0.2) CBC Comment AUTO DIFF Differential Total Cells 100 Counted Neutrophils % (Manual) 70 % (16-70) Band Neutrophils % 12 % (0-6) Lymphocytes % 9 % (9-44) Monocytes % 5 % (0-8) Eosinophils % 2 % (0-4) Neutrophils # (Manual) 12.0 TH/MM3 (1.8-7.7) Metamyelocytes 2 % (0-1) Differential Comment FINAL DIFF MANUAL Platelet Estimate NORMAL (NORMAL) Platelet Morphology Comment NORMAL (NORMAL) Target Cells 1+ (NORMAL) Ovalocytes 1+ (NORMAL) Sodium Level 153 MEQ/L 155 MEQ/L (136-145) (136-145) Potassium Level 3.2 MEQ/L 3.3 MEQ/L (3.5-5.1) (3.5-5.1) Chloride Level 122 MEQ/L (98-107) Carbon Dioxide Level 23.0 MEQ/L (21.0-32.0) Anion Gap 8 MEQ/L (5-15) Blood Urea Nitrogen 7 MG/DL (7-18) Creatinine 0.59 MG/DL (0.50-1.00) Estimat Glomerular Filtration 132 ML/MIN Rate (>89) Random Glucose 97 MG/DL (74-106) Serum Osmolality 314 MOSM/KG 316 MOSM/KG (275-295) (275-295) Calcium Level 7.8 MG/DL (8.5-10.1) Magnesium Level 1.7 MG/DL (1.5-2.5) Total Bilirubin 0.4 MG/DL (0.2-1.0) Aspartate Amino Transf 43 U/L (15-37) (AST/SGOT) Alanine Aminotransferase 32 U/L (10-53) (ALT/SGPT) Alkaline Phosphatase 111 U/L (45-117) Total Protein 5.6 GM/DL (6.4-8.2) Albumin 1.4 GM/DL (3.4-5.0) Blood Type O POSITIVE Antibody Screen NEGATIVE Crossmatch Leukocyte-Reduced Red Blood Cells Blood Bank Comment Vancomycin Level Trough 15.7 MCG/ML (5.0-10.0) Test 04/22/16 04/22/16 04/22/16 04/23/16 14:09 17:00 23:27 00:05 Blood Type O POSITIVE Crossmatch Leukocyte-Reduced Red Blood Cells Blood Bank Comment Sodium Level 155 MEQ/L 155 MEQ/L (136-145) (136-145) Serum Osmolality 318 MOSM/KG 318 MOSM/KG (275-295) (275-295) Blood Gas Puncture Site ART LINE Blood Gas Patient Temperature 98.6 Blood Gas HCO3 22 mmol/L (22-26) Blood Gas Base Excess -0.7 mmol/L (-2-2) Blood Gas Oxygen Saturation 97 % (90-100) Arterial Blood pH 7.55 (7.380-7.420) Arterial Blood Partial 25 mmHg (38-42) Pressure CO2 Arterial Blood Partial 167 mmHg Pressure O2 (61-120) Arterial Blood Oxygen Content 12.7 Vol % (12.0-20.0) Arterial Blood 1.4 % (0-4) Carboxyhemoglobin Arterial Blood Methemoglobin 0.8 % (0-2) Blood Gas Hemoglobin 9.1 G/DL (12.0-16.0) Oxygen Delivery Device VENTILATOR Blood Gas Ventilator Setting PC/AC Blood Gas Inspired Oxygen 50 % Potassium Level 3.1 MEQ/L (3.5-5.1) Chloride Level 123 MEQ/L (98-107) Carbon Dioxide Level 24.4 MEQ/L (21.0-32.0) Anion Gap 8 MEQ/L (5-15) Blood Urea Nitrogen 7 MG/DL (7-18) Creatinine 0.59 MG/DL (0.50-1.00) Estimat Glomerular Filtration 132 ML/MIN Rate (>89) Random Glucose 91 MG/DL (74-106) Calcium Level 8.4 MG/DL (8.5-10.1) Phosphorus Level 2.6 MG/DL (2.5-4.9) Magnesium Level 1.6 MG/DL (1.5-2.5) Total Bilirubin 0.6 MG/DL (0.2-1.0) Aspartate Amino Transf 49 U/L (15-37) (AST/SGOT) Alanine Aminotransferase 37 U/L (10-53) (ALT/SGPT) Alkaline Phosphatase 159 U/L (45-117) Total Protein 6.3 GM/DL (6.4-8.2) Albumin 1.5 GM/DL (3.4-5.0) Test 04/23/16 04:00 White Blood Count 17.0 TH/MM3 (4.0-11.0) Red Blood Count 3.65 MIL/MM3 (4.00-5.30) Hemoglobin 8.7 GM/DL (11.6-15.3) Hematocrit 26.8 % (35.0-46.0) Mean Corpuscular Volume 73.5 FL (80.0-100.0) Mean Corpuscular Hemoglobin 24.0 PG (27.0-34.0) Mean Corpuscular Hemoglobin 32.6 % Concent (32.0-36.0) Red Cell Distribution Width 27.3 % (11.6-17.2) Platelet Count 240 TH/MM3 (150-450) Mean Platelet Volume 8.6 FL (7.0-11.0) Neutrophils (%) (Auto) 84.6 % (16.0-70.0) Lymphocytes (%) (Auto) 7.6 % (9.0-44.0) Monocytes (%) (Auto) 4.8 % (0.0-8.0) Eosinophils (%) (Auto) 2.6 % (0.0-4.0) Basophils (%) (Auto) 0.4 % (0.0-2.0) Neutrophils # (Auto) 14.4 TH/MM3 (1.8-7.7) Lymphocytes # (Auto) 1.3 TH/MM3 (1.0-4.8) Monocytes # (Auto) 0.8 TH/MM3 (0-0.9) Eosinophils # (Auto) 0.4 TH/MM3 (0-0.4) Basophils # (Auto) 0.1 TH/MM3 (0-0.2) CBC Comment AUTO DIFF Differential Comment AUTO DIFF CONFIRMED Target Cells 1+ (NORMAL) Ovalocytes 1+ (NORMAL) Sodium Level 158 MEQ/L (136-145) Serum Osmolality 319 MOSM/KG (275-295) Magnesium Level 1.6 MG/DL (1.5-2.5) Result Diagram: 04/23/1639904/23/160 Microbiology Microbiology Date/Time Procedure Status Source Growth 04/20/16 12:30 Urine Culture - Final Complete Urine Catheterized Urine NO GROWTH IN 48 HOURS. 04/20/16 14:40 Aerobic Blood Culture - Preliminary Resulted Blood Peripheral NO GROWTH IN 2 DAYS 04/20/16 14:40 Anaerobic Blood Culture - Preliminary Resulted Blood Peripheral NO GROWTH IN 2 DAYS 04/20/16 14:45 Aerobic Blood Culture - Preliminary Resulted Blood Peripheral NO GROWTH IN 2 DAYS 04/20/16 14:45 Anaerobic Blood Culture - Preliminary Resulted Blood Peripheral NO GROWTH IN 2 DAYS 04/20/16 15:50 Gram Stain - Final Complete Sputum Endotracheal 04/20/16 15:50 Sputum Culture - Final Complete Sputum Endotracheal LIGHT GROWTH NORMAL RESPIRATORY [facility] Imaging Last Impressions Chest X-Ray 04/23/16 06 Signed Impressions: Service Date/Time: Saturday, April 23, 2016 03:20 - CONCLUSION: No significant interval change. Alfonso Escoto MD Head CTA 04/22/16 06 Signed Impressions: Service Date/Time: Friday, April 22, 2016 09:26 - CONCLUSION: 1. The intracranial circulation remains patent. The exam demonstrates significantly more edema surrounding the patient's large area of intraparenchymal hemorrhage on the left. There is at least 1.3 cm of left to right falcine shift. This is significantly worse when compared to the previous examination. This appears to be the result of worsening edema around the patient's intraparenchymal hemorrhage. Eric Castellanos MD Head CT 04/22/16 0600 Signed Impressions: Service Date/Time: Friday, April 22, 2016 09:26 - CONCLUSION: Evolving left frontotemporal hemorrhage with mass effect and increasing left to right midline shift of 15 mm. Subarachnoid hemorrhage and intraventricular hemorrhage again seen. Nathen Howard MD Neck CTA 04/11/16 1151 Signed Impressions: Service Date/Time: Monday, April 11, 2016 12:01 - CONCLUSION: Negative for hemodynamically significant carotid stenosis. Ricardo Castellanos MD FACR Cerebral Arteriogram 04/11/16 0000 Signed Impressions: Service Date/Time: Monday, April 11, 2016 14:18 - CONCLUSION: 1. 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 This is the aneurysm felt responsible for the intracranial hemorrhage. 2. Small 4 mm left M1 segment aneurysm. Attempts at embolizing this aneurysm were unsuccessful due to the broad based nature of the aneurysm. Endovascular repair of this aneurysm could not be performed. Kennedy Thibodeaux Jr., MD Assessment and Plan Disease Oriented Problem List: (1) Acute spontaneous subarachnoid intracranial hemorrhage (2) Cerebral aneurysm rupture (3) Hypertension Symptom Scale: (1) Dyspnea Comment: Intubated for airway protection (2) Encephalopathy Comment: MCA hemorrhage, status post aneurysm rupture, status post IR coiling Pertinent Non-Medical Issues *Additional pending family meeting tomorrow Psychosocial: Spiritual: Legal:Patient is not able to participate in decision-making due to clinical condition, not clear that she will regain this ability. She is not . Per [place] statutes legal decision making would fall to her 2 adult children. Also reported to be supported by siblings. Ethical issues impacting care: Important Contacts Solo Hoskins (daughter) [phone] Donna [id number] Brother Fei Pride [phone] Brother Kenn Pride Brother Jared Pride Brother Jamil [place] . 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 Status post coiling of one aneurysm. Continues to have elevated ICPs and poor neuro exam. May require craniotomy due to labile ICP and worsening edema. Will likely require prolonged hospital course and will be high risk for further complications/setbacks while supportive care continues. Will likely require tracheostomy and PEG tube placement for ongoing aggressive treatment. Not expected to regain independent function, will likely have significant deficits if she can survive acute course and may remain dependent for care. Code Status: Full Code Plan * Palliative, neurosurgery met with patient daughter, niece, brother at length today.Extensive review of hospital course thus far and current clinical condition and likely trajectory, prognosis. All questions answered. Family seems to have reasonable understanding of conditions and likely prognosis. Goals are aggressive. They will continue to discuss CODE STATUS as a family. Palliative will continue to follow to assist in providing decision-maker medical updates, as condition evolves. * CODE STATUSfull code * Legal decision maker- per records patient is not . daughter indicates she is patient's only child . Per [place] statutes adult daughter would be legal decision maker. She also supported by pt multiple siblings. * Symptoms: --Encephalopathy-status post significant MCA hemorrhage, aneurysm coiling; now sedated, vented --Dyspnea-intubated for airway protection, remains on mechanical vent, on sedation no tachypnea or distress observed, will continue to evaluate. --Pain-no chronic pain sources however potential sources would include new bedbound status, invasive lines and procedures, currently on fentanyl drip. No signs or symptoms of pain reported or observed. Will continue to evaluate. * Palliative care will continue to follow during hospital course as condition evolves, to assist patient/decision-maker with understanding of medical conditions, weighing benefits/burdens of treatment options, for clarification of goals of treatment. Additionally will assist with any symptoms of palliative concern Time Spent Total Floor Time (mins): 50 Face to Face Time (mins): 40 >50% Counseling/Coord of Care: Yes (discuss with critical care, neurosurgery, RN) Attestation To help prompt me to consider important information that might be impacting today's encounter and assessment, information from prior notes written by myself or my colleagues may have been "brought forward" into today's note. My signature on this note, however, is an attestation that I personally performed the exam, history, and/or decision-making noted today, and, unless otherwise indicated, the interactions with patient, family, and staff as well as the review of records all occurred today. I also attest that the listed assessment and stated plan reflect my best clinical judgment today based on the combination of historical information, prior notes, and today's exam/ interactions. When time spent is documented, it refers only to time spent today by the signer, or if indicated, combined time spent today by collaborating physician/nurse practitioner. Ashley Wharton Apr 23, 2016 10:52
[2016-04-23] MEDS: LEVOFLOXACIN 750 MG PREMIX INJ 150 ML IV SCH (16:56)
[2016-04-23 17:40] LABS: POTASSIUM 3.7 MEQ/L (3.5-5.1)
[2016-04-23] MEDS: levETIRAcetam 500 MG/NS 100 ML IV SCH ×2 (21:24)
[2016-04-23 23:11] LABS: HEMATOCRIT 25.9 % (35.0-46.0)
[2016-04-23 23:12] LABS: REVIEW FLAG FINAL
[2016-04-24] VITALS (22 sets, daily range): BP systolic 156–206; BP diastolic 80–97; PULSE 76–110; RESP 12–20; TEMP 98.6–102.7; O2SAT 94–100
[2016-04-24 00:11] LABS: BLOOD GAS BASE EXCESS -4.5 mmol/L (-2-2); BLOOD GAS HCO3 19 mmol/L (22-26); BLOOD GAS METHEMOGLOBIN 0.9 % (0-2); BLOOD GAS O2 HGB SATURATION 96 % (90-100); BLOOD GAS OXYGEN CONTENT 17.8 Vol % (12.0-20.0); BLOOD GAS PCO2 30 mmHg (38-42); BLOOD GAS PO2 110 mmHg (61-120); BLOOD GAS TOTAL HGB 13.1 G/DL (12.0-16.0); CRITICAL VALUE NO; OXYGEN DEVICE VENTILATOR; TEMP CORR TO 98.6
[2016-04-24 00:12] LABS: VENT SETTINGS PC/AC
[2016-04-24 00:13] LABS: DRAW SITE ART LINE; FIO2 40 %; STAT NO
[2016-04-24] MEDS: SODIUM CHLORIDE 23.4% INJ 240 MEQ in SYRINGE/BAG 1 EA IV PRN (00:42)
[2016-04-24] MEDS: niMODipine 30 MG CAP PO SCH ×6 (00:46→20:07)
[2016-04-24] MEDS: METOCLOPRAMIDE HCL SYRUP 10 MG/10 ML UDC PO SCH ×2 (00:46→08:21)
[2016-04-24] MEDS: METOPROLOL TARTRATE 25 MG TAB PO SCH ×4 (02:00→19:43)
[2016-04-24] MEDS: VANCOMYCIN INJ 1,500 MG in SODIUM CHLORID 0.9% 500 ML INJ 500 ML IV SCH ×2 (02:00→13:48)
[2016-04-24] MEDS: PIPERACIL-TAZO 4.5 GM PREMIX 100 ML IV SCH ×4 (03:00→20:34)
[2016-04-24 03:22] LABS: AUTOMATED NEUTROPHIL # 13.9 TH/MM3 (1.8-7.7); BASOPHIL # 0.1 TH/MM3 (0-0.2); BASOPHIL % 0.3 % (0.0-2.0); EOSINOPHIL # 0.3 TH/MM3 (0-0.4); EOSINOPHIL % 2.1 % (0.0-4.0); HEMATOCRIT 24.8 % (35.0-46.0); LYMPH % 8.7 % (9.0-44.0); LYMPHOCYTE # 1.4 TH/MM3 (1.0-4.8); MEAN CELL VOLUME 74.8 FL (80.0-100.0); MEAN CORPUSCULAR HEMOGLOBIN 23.8 PG (27.0-34.0); MEAN CORPUSCULAR HGB CONC 31.8 % (32.0-36.0); MONO % 4.8 % (0.0-8.0); NEUT % 84.1 % (16.0-70.0); PLATELET COUNT 216 TH/MM3 (150-450); RED BLOOD COUNT 3.31 MIL/MM3 (4.00-5.30); RED CELL DISTRIBUTION WIDTH 27.4 % (11.6-17.2); WHITE BLOOD COUNT 16.5 TH/MM3 (4.0-11.0)
[2016-04-24 03:25] LABS: HEMO FLAGS AUTO DIFF
[2016-04-24 03:45] LABS: ALKALINE PHOSPHATASE 102 U/L (45-117); ALT (GPT) 36 U/L (10-53); ANION GAP 8 MEQ/L (5-15); AST (GOT) 45 U/L (15-37); BICARBONATE 21.6 MEQ/L (21.0-32.0); BLOOD UREA NITROGEN 10 MG/DL (7-18); CHLORIDE 129 MEQ/L (98-107); GLOMERULAR FILTRATION RATE 101 ML/MIN (>89); POTASSIUM 3.4 MEQ/L (3.5-5.1); TOTAL BILIRUBIN ADULT 0.5 MG/DL (0.2-1.0)
[2016-04-24 03:50] LABS: SODIUM (NA) 159 MEQ/L (136-145)
[2016-04-24] MEDS: CHLORHEXIDINE GLUCONATE 2 % 1 PACK (2 CLOTHS) TOP SCH (04:00)
[2016-04-24 04:58] LABS: BANDS 1 % (0-6); EOSINOPHILS 3 % (0-4); METAMYELOCYTES 1 % (0-1); MYELOCYTES 4 % (0-0); NEUTROPHIL # MANUAL DIFF 14.7 TH/MM3 (1.8-7.7); POLYS (SEG NEUTROPHILS) 83 % (16-70); WBC DIFF SAMPLE 100
[2016-04-24 04:59] LABS: SCAN/DIFF FINAL DIFF MANUAL
[2016-04-24 05:00] LABS: ACANTHOCYTES OCC (NORMAL); KERATOCYTES OCC (NORMAL); OVALOCYTES 1+ (NORMAL); PLATELET ESTIMATE SMEAR NORMAL (NORMAL); PLATELET MORPHOLOGY NORMAL (NORMAL)
[2016-04-24 05:14] LABS: SPHEROCYTES OCC (NORMAL)
--- NOTE | 2016-04-24 06:20 | RADRPT ---
EXAM DATE/TIME: 04/24/2016 05:13 [facility] COMPARISON: CHEST SINGLE AP, April 23, 2016, 3:20. INDICATIONS : Evaluate for pulmonary disease. MEDICAL HISTORY : Hypertension. SURGICAL HISTORY : Tubal ligation. ENCOUNTER: Subsequent ACUITY: 2 weeks PAIN SCORE: Non-responsive. LOCATION: Bilateral chest FINDINGS: The support devices remain in place. There is no evidence of pneumothorax. There continues to be infi ltrates in both lung bases. Infiltrates are stable compared to the prior study. The heart size is sta ble. CONCLUSION: No significant interval change with the bibasilar infiltrates. Alfonso Escoto MD on April 24, 2016 at 6:17 Board Certified Radiologist. This report was verified electronically.
[2016-04-24] MEDS: fentaNYL DRIP 250 ML IV SCH ×2 (07:05→16:15)
[2016-04-24] MEDS: ACETAMINOPHEN 650 MG/20.3 ML UDC PO PRN ×2 (08:10→11:59)
[2016-04-24] MEDS: SODIUM CHLORIDE 0.9% FLUSH 5 ML FLUSH IVF SCH ×2 (08:20→21:00)
[2016-04-24] MEDS: PANTOPRAZOLE SODIUM 40 MG VIAL IV SCH (08:20)
[2016-04-24] MEDS: levETIRAcetam 500 MG/NS 100 ML IV SCH ×4 (08:20→20:34)
[2016-04-24] MEDS: LACTULOSE SYRUP 20 GM/30 ML CUP PO SCH (08:21)
--- NOTE | 2016-04-24 09:29 | HHI.NSPN ---
(Genna Madrid) History Chief Complaint: status post coil for aneurysm (Genna Madrid) Interval History 04/12/16: Patient had an aneurysm coiled yesterday, intubated and sedated, ICP stable overnight 04/13/16: Increased ICP overnight, improved after a 23% saline bolus 04/14/16: ICP stable overnight 04/15/16: ICP stable, CTA stable no vasospasm 04/16/16: ICP slight increase overnight now stabilized, intubated and sedated 04/17/16: ICP increased yesterday afternoon, repeat CTA and CT stable, no vasospasm, no new hemorrhage, hypothermia overnight 04/21/16: increasing ICP over the weekend, getting 23% every 6 hours PRN. 04/22/16: ICP responding over night to 23% saline, CT and CTA planned this am. Nimbex off since yesterday. 04/23/16: ICP stable overnight, SBP increasing today RN adjusting pressors, HGB improved after 2 units of PRBC, no signs of active bleeding 04/24/16: ICP increased overnight with stimulation but not sustained, low HGB again today receiving PRBC this am (Genna Madrid) Exam Results Vital Signs Date Time Temp Pulse Resp B/P Pulse Ox O2 Delivery O2 Flow Rate FiO2 04/24/16 08:39 40 04/24/16 08:39 94 04/24/16 08:17 102.7 110 20 156/88 Automatic Cuff Intake and Output 04/23/16 04/23/16 04/23/16 07:59 15:59 23:59 Intake Total 2046 ml 2421 ml 1036 ml Output Total 1470 ml 935 ml 1156 ml Balance 576 ml 1486 ml -120 ml (Genna Madrid) Physical Examination Intubated and sedated. Sedation limits exam. No spontaneous eye opening. Absent conjugate oculocephalics. Pupils are 2 mm and non-reactive. Persistent angioedema. Abdomen soft. ICP 10 CPP 124 EVD draining bloody CSF at 0cmH20. (Genna Madrid) Lab, Micro, Other Results Last Impressions Chest X-Ray 04/24/16 0600 Signed Impressions: Service Date/Time: March 05:13 - CONCLUSION: No significant interval change with the bibasilar infiltrates. Alfonso Escoto MD Head CTA 04/22/16 0600 Signed Impressions: Service Date/Time: Friday, April 22, 2016 09:26 - CONCLUSION: 1. The intracranial circulation remains patent. The exam demonstrates significantly more edema surrounding the patient's large area of intraparenchymal hemorrhage on the left. There is at least 1.3 cm of left to right falcine shift. This is significantly worse when compared to the previous examination. This appears to be the result of worsening edema around the patient's intraparenchymal hemorrhage. Eric Castellanos MD Head CT 04/22/16 0600 Signed Impressions: Service Date/Time: Friday, April 22, 2016 09:26 - CONCLUSION: Evolving left frontotemporal hemorrhage with mass effect and increasing left to right midline shift of 15 mm. Subarachnoid hemorrhage and intraventricular hemorrhage again seen. Nathen Howard MD Neck CTA 04/11/16 1151 Signed Impressions: Service Date/Time: Monday, April 11, 2016 12:01 - CONCLUSION: Negative for hemodynamically significant carotid stenosis. Ricardo Castellanos MD FACR Cerebral Arteriogram 04/11/16 0000 Signed Impressions: Service Date/Time: Monday, April 11, 2016 14:18 - CONCLUSION: 1. 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 This is the aneurysm felt responsible for the intracranial hemorrhage. 2. Small 4 mm left M1 segment aneurysm. Attempts at embolizing this aneurysm were unsuccessful due to the broad based nature of the aneurysm. Endovascular repair of this aneurysm could not be performed. Kennedy Thibodeaux Jr., MD Laboratory Tests Test 04/23/16 04/23/16 04/23/16 04/23/16 11:40 17:00 22:00 23:55 Sodium Level 158 MEQ/L 161 MEQ/L Serum Osmolality 326 MOSM/KG 332 MOSM/KG Potassium Level 3.7 MEQ/L Phosphorus Level 3.0 MG/DL Magnesium Level 2.0 MG/DL Hemoglobin 8.2 GM/DL Hematocrit 25.9 % Blood Gas Puncture Site ART LINE Blood Gas Patient Temperature 98.6 Blood Gas HCO3 19 mmol/L Blood Gas Base Excess -4.5 mmol/L Blood Gas Oxygen Saturation 96 % Arterial Blood pH 7.42 Arterial Blood Partial 30 mmHg Pressure CO2 Arterial Blood Partial 110 mmHg Pressure O2 Arterial Blood Oxygen Content 17.8 Vol % Arterial Blood 1.0 % Carboxyhemoglobin Arterial Blood Methemoglobin 0.9 % Blood Gas Hemoglobin 13.1 G/DL Oxygen Delivery Device VENTILATOR Blood Gas Ventilator Setting PC/AC Blood Gas Inspired Oxygen 40 % Test 04/24/16 03:00 White Blood Count 16.5 TH/MM3 Red Blood Count 3.31 MIL/MM3 Hemoglobin 7.9 GM/DL Hematocrit 24.8 % Mean Corpuscular Volume 74.8 FL Mean Corpuscular Hemoglobin 23.8 PG Mean Corpuscular Hemoglobin 31.8 % Concent Red Cell Distribution Width 27.4 % Platelet Count 216 TH/MM3 Mean Platelet Volume 8.3 FL Neutrophils (%) (Auto) 84.1 % Lymphocytes (%) (Auto) 8.7 % Monocytes (%) (Auto) 4.8 % Eosinophils (%) (Auto) 2.1 % Basophils (%) (Auto) 0.3 % Neutrophils # (Auto) 13.9 TH/MM3 Lymphocytes # (Auto) 1.4 TH/MM3 Monocytes # (Auto) 0.8 TH/MM3 Eosinophils # (Auto) 0.3 TH/MM3 Basophils # (Auto) 0.1 TH/MM3 CBC Comment AUTO DIFF Differential Total Cells 100 Counted Neutrophils % (Manual) 83 % Band Neutrophils % 1 % Lymphocytes % 5 % Monocytes % 3 % Eosinophils % 3 % Neutrophils # (Manual) 14.7 TH/MM3 Metamyelocytes 1 % Myelocytes 4 % Differential Comment FINAL DIFF MANUAL Platelet Estimate NORMAL Platelet Morphology Comment NORMAL Spherocytes OCC Ovalocytes 1+ Acanthocytes OCC Keratocytes OCC Sodium Level 159 MEQ/L Potassium Level 3.4 MEQ/L Chloride Level 129 MEQ/L Carbon Dioxide Level 21.6 MEQ/L Anion Gap 8 MEQ/L Blood Urea Nitrogen 10 MG/DL Creatinine 0.74 MG/DL Estimat Glomerular Filtration 101 ML/MIN Rate Random Glucose 85 MG/DL Serum Osmolality 330 MOSM/KG Calcium Level 8.2 MG/DL Magnesium Level 2.0 MG/DL Total Bilirubin 0.5 MG/DL Aspartate Amino Transf 45 U/L (AST/SGOT) Alanine Aminotransferase 36 U/L (ALT/SGPT) Alkaline Phosphatase 102 U/L Total Protein 5.5 GM/DL Albumin 1.4 GM/DL (Genna Madrid) Medical Decision Making Impression and Plan Impression: 1. S/P endovascular coiling of ruptured cerebral aneurysm. 04/14/16 CT angiogram stable: Status post endovascular repair of left supraclinoid aneurysm. Left M1 segment aneurysm stable 04/16/[address] and CTA stable. No vasospasm, no new hemorrhage. 04/22/16: Head CT 14mm left to right shift, and CTA perfusion, no vasospasm Plan: D/W palliative- they are contacting the family today but impression thus far is they want everything done. They are contacting the daughter this am, but I am told she rarely answers the phone. Possible craniectomy today 04/24 around 1700 for worsening mass effect on 04/22 CT. 1050: Spoke with the daughter Ms. Hoskins on the phone. Explained the craniectomy, details, goals and risks of the procedure and requested verbal consent. She requested I call her back because she could not decide. When I inquired what time she wanted me to call her back she explained she would be at the hospital in 30 minutes. I told her I would meet her when she arrived to further discuss. 1130: Discussed with palliative care who recently spoke to the patients sister. The patients sister explains the daughter is having a hard time deciding how to proceed. According to the sister of the patient, Ms. Pride's daughter recalls the patient saying at one point she would not want to live like this after seeing her mother thought a difficultly open heart surgery. 1230: Discussed with RN who states the daughter is still not at bedside. She left a voicemail with the daughter to call us back and let us know how she wants to proceed. GI and surgery consults for Trach and PEG. Continue ventilatory support and sedation. Maintain ventriculostomy at 0cmH20 Nimodipine for vasospasm prophylaxis. Maintain systolic blood pressure 180-200 range Continue to monitor sodium level, keep 145-155 range. Decrease maintenance fluids. [employer] following for medical management Keppra for seizure prophylaxis. Protonix for ulcer prophylaxis Hold Lovenox until HGB is stabilized for a few days. Hemoccult Discussed with RN at bedside. Hold Tube feeds this am. for possible OR later (Genna Madrid) Attending Statement On the date of this note, the undersigned had a [id number] encounter with the patient. I personally examined the patient, obtained pertinent history, and reviewed the electronic medical record including pertinent laboratory results and imaging studies. I personally developed the treatment plan and perform medical decision making. All of the above was performed in the presence of the physician's purchasing administrative assistant, who has scribed my findings into the medical record as noted above. Patient's family has indicated that they wish for continued aggressive treatment including surgical decompression, tracheostomy, PEG tube, despite several conversations with medical staff in which the family has been advised that the patient's prognosis for meaningful recovery is very poor, and if she survives, will likely be a chronic vegetative or severely compromised state. The patient's daughter indicated that she wished to proceed with surgical intervention, but did not sign a consent and has not been able to be reached today. Continuing attempts to manage ICP with ventriculostomy drain and ventilator and hypertonic saline. (Sherwin Meléndez MD) Genna Madrid Apr 24, 2016 09:29 Sherwin Meléndez MD Apr 26, 2016 00:09
--- NOTE | 2016-04-24 10:26 | HHI.HCPN ---
Reason for visit a. To assist with evaluation and management of symptoms including: encephalopathy b. To assist medical decision maker(s) with: better understanding of current medical conditions; weighing benefits/burdens of medical treatment options; making medical treatment decisions. Subjective/Interval History Patient seen today to follow-up on goals. Call from Neuro PA, notified that pt would need bone flap removal if goals are aggressive to prevent herniation due to ongoing edema. Pt seen in unit, no family present. Call to dtr Ms Hoskins, again review current condition, assessment and that if goals were aggressive bone flap surgery would be indicated to allow for edema without resulting herniation/. She asks if surgery will make her mother better, explore limitation of surgery and that would not impact injured tissues nor rehab but allow for swelling and prevent associated herniation that could result in . Also explore with her that if goals were agg ressive and she desired to proceed w surgery then tracheostomy and PEG would also be planned as pt not expected to be able to maintain airway or eat in the near future. Dtr wishes to talk w other family members, though she is leaning towards proceeding with lifesaving surgery and whatever other interventions will help her mother stay alive. Advise medical/surgical team needs to know decision within the next 30 min +/- so that OR can be set up. All questions answered, she has palliative contact #. Pt exam unchanged. On sedation, non responsive to my exam. Eyes with rightward gaze, pupils nonreactive. +moist gauze dressing on mouth/tongue, +tongue edema/ protrusion . D/w primary RNDali. Patient remains sedated on mechanical vent. No change in neuro assessment per nursing. Currently on Versed 10mg/hr, Diprivan 50mcgs/kg/min, fentanyl 250mcgs , MIVF. ICPs continue to fluctuate 6-19- 48 at one point. Pancultures obtained 04/20 still with no growth. CXR today stable no significant changes. WBC 16. Hgb again decreased, 7.9, receiving transfusion of RBC currently. No signs of active bleeding,IVF have been decreased, stool ordered for Hemoccult, no shannon blood noted in stool present in rectal drain. History brought forward from initial consult by Jillian AKBAR on 04/22/16: This 46 year old female presented to the ED on 04/11/16, apparently found on the ground unresponsive by family members, EMS was activated. EMS found her with a GCS of 3 and blood pressure to 90 systolic. She required respiratory ventilation support. She was unresponsive and unable to provide additional history. * She was intubated on arrival to the ED. Cardene was initiated for hypotension. CT brain obtained for suspected hemorrhage, CT brain indicates large left hemispheric intraparenchymal hemorrhage with subarachnoid blood. Suspected MCA aneurysm rupture, CTA head and neck pending. Neurosurgery consulted. Admitted to the ICU ,emergent ventriculostomy placement by neuro. * Neuro exam notes absent deep tendon reflexes, no withdrawal to stimuli weak cough reflex pupils 2 mm and nonreactive. Prognosis guarded given significant areas of hemorrhage--cerebral angiogram indicates to aneurysm. Planned for interventional radiology for attempted coiling. Initiated on Keppra, pneumatized. * 04/11 to IR for attempting coiling of 2 aneurysms. Large and most complex involves left posterior cerebral origin. Successful coil embolization of the largest aneurysm. Attempted coiling embolization of other M1 aneurysm on left not successful unable to treat at aneurysm via endovascular methods. * 04/13 ICP increasing, > 20, cerebral edema, requiring ventilator adjustments, increased sedation and analgesia--received 23% saline bolus //neurosurgery discussed with patient's family at bedside * 04/15 continues to require heavy sedation for ICP control, somewhat improved on sedation. Repeat CT angiogram indicated status post endovascular repair left aneurysm left M1 segment stable no vasospasm. * 04/16 hypoxemic FiO2 increased to 70%, CXR= lower lobe infiltrate, sputum+ or negative rods. Clinical exam: Pulse 2 mm nonreactive. No withdrawal 4 extremities. * 04/17 ICP elevated, hypothermic? Related to sepsis, pancultures pending, on Vanco --- later initiated on paralytics * 04/21 still critically ill on mechanical vent. Intermittent ICP elevations. Requiring 23% saline boluses. Paralytic Nimbex DC'd. Repeat CT angiogram planned for 04/22 * 04/22EEG no seizure activity noted. Slightly asynchrony no focal abnormality. CTA head 04/22 no vasospasm some perfusion. Palliative care consulted by neuro to assist family with clarification of goals of treatment. Hemoglobin low 6.8, ordered for RBC transfusion-Bumex 1 following. WBC 14.3. Patient seen in room no visitors present. Nursing indicates no family in as of yet today. She is sedated on mechanical vent, critically ill-appearing. Nonresponsive to my exam, no gag reflex when nursing provide suction during my exam. Currently on Cardene drip, Versed drip at 10 mg an hour, Diprivan drip at 15 mics/kg/minute, fentanyl drip at 250 mcgs/ hour, 3% saline at 40 mL/ hour and receiving second unit rbc's today. Primary nurse informs neurosurgery Dr. Ruiz by shortly before my exam and they indicated no plans for surgical intervention at this time. Following exam call to daughter, provided brief general medical update, assessment overview, arranged to meet with her tomorrow Thursday04/23/16 around 9:45 AM. Family/friend interactions * see above discussion w dtr. --later received call from pt sister Donna (Dtr Ms Norfolk' aunt) indicating that dtr is struggling with decisions and she is trying to support her, she requests update on proposed surgical procedure, prognosis. Explore with her prognosis, current tx, proposed neurosurgical intervention. She tells me that their mother underwent cardiac surgery, and following that suffered from a coma/ other complication which she did not recover from and Donna tells me that the patient has previously said " she would never want to go through that." Donna says she is trying to help support whatever decisions are made and understands she is not the decision maker. Advised that medical team would need to speak w dtr again either way, and that nursing indicates there is no answer to her telephone . she is in close communications with Ms Hoskins and will advise her to check phone. . Advance Directives Living Will: Never completed Health Care Surrogate: Never completed Durable Power of [employer] Boat Mate: Never completed Objective Vital Signs Date Time Temp Pulse Resp B/P Pulse Ox O2 Delivery O2 Flow Rate FiO2 04/24/16 08:39 40 04/24/16 08:39 94 40 04/24/16 08:17 102.7 110 20 156/88 100 Automatic Cuff 04/24/16 06:00 99 04/24/16 06:00 99 184/87 04/24/16 04:14 98 40 04/24/16 04:00 40 04/24/16 04:00 99.8 99 15 171/80 100 04/24/16 04:00 80 04/24/16 02:00 97 04/24/16 01:49 98 40 04/24/16 00:00 80 04/24/16 00:00 40 04/24/16 00:00 98.8 87 15 183/87 100 04/23/16 22:00 74 04/23/16 20:00 40 04/23/16 20:00 98.9 87 15 183/85 100 04/23/16 20:00 87 04/23/16 19:56 100 40 04/23/16 18:00 91 04/23/16 18:00 84 161/77 04/23/16 16:08 100 40 04/23/16 16:00 89 04/23/16 16:00 40 04/23/16 16:00 99.6 89 15 197/90 100 04/23/16 14:00 91 04/23/16 12:00 92 04/23/16 12:00 40 04/23/16 12:00 99.7 92 15 187/85 95 Intake & Output 04/24/16 04/24/16 07:00 19:00 Intake Total 2166 ml Output Total 2366 ml Balance -200 ml IV Total 1614 ml Lipid 372 ml Tube Irrigant 180 ml Output Urine Total 1950 ml Stool Total 300 ml Drainage Total 116 ml Physical Exam CONSTITUTIONAL/GENERAL: This is an adequately nourished patient, in no apparent distress, critically ill on mechanical vent. TUBES/LINES/DRAINS: Central line left subclavian, Rebollar catheter, rectal drain, ventriculostomy, ET tube, OG tube SKIN: No jaundice, rashes, or lesions.No wounds seen anteriorly. Skin temperature appropriate. Not diaphoretic. HEAD: Atraumatic. + Ventriculostomy exits from top of head to bedside drain EYES: Pupils 2 mm, nonreactive to light. Leftward gaze. + Scleral edema. No scleral icterus. No injection or drainage. Fundi not examined. ENT: Nose without bleeding or purulent drainage. Unable to visualize oropharynx due to ET tube, OG tube. NECK: Trachea midline. Supple, nontender. No palpable thyroid enlargement or nodularity. CARDIOVASCULAR: Regular rate and rhythm without murmurs. No JVD. Peripheral pulses symmetric.+ Generalized edema. RESPIRATORY/CHEST: Symmetric, unlabored respirations via mechanical vent, no spontaneous respirations over vent rate. Clear to auscultation. Breath sounds equal bilaterally. GASTROINTESTINAL: Abdomen soft, unable to assess tenderness, nondistended. No hepato-splenomegaly, or palpable masses. Bowel sounds present. Tube feedings infusing via OG tube.+ Liquid stool present in rectal drain. GENITOURINARY: Without palpable bladder distension. Rebollar catheter in place. MUSCULOSKELETAL: Extremities without clubbing, cyanosis. Generalized edema. No joint effusion noted. No mottling or clubbing. NEUROLOGICAL: Sedated on mechanical vent. Nonresponsive to exam. No gag reflex when nursing provide suction. Pupils nonreactive 2 mm, with leftward gaze. PSYCHIATRIC: unable to assess due to clinical condition. No apparent anxiety or tachypnea. Diagnostic Tests Laboratory Laboratory Tests Test 04/21/16 04/21/16 04/22/16 04/22/16 11:40 18:25 00:23 05:30 Sodium Level 151 MEQ/L 153 MEQ/L 157 MEQ/L 153 MEQ/L (136-145) (136-145) (136-145) (136-145) Serum Osmolality 311 MOSM/KG 315 MOSM/KG 324 MOSM/KG 314 MOSM/KG (275-295) (275-295) (275-295) (275-295) White Blood Count 14.3 TH/MM3 (4.0-11.0) Red Blood Count 3.03 MIL/MM3 (4.00-5.30) Hemoglobin 6.8 GM/DL (11.6-15.3) Hematocrit 21.7 % (35.0-46.0) Mean Corpuscular Volume 71.6 FL (80.0-100.0) Mean Corpuscular Hemoglobin 22.5 PG (27.0-34.0) Mean Corpuscular Hemoglobin 31.5 % Concent (32.0-36.0) Red Cell Distribution Width 28.8 % (11.6-17.2) Platelet Count 242 TH/MM3 (150-450) Mean Platelet Volume 8.6 FL (7.0-11.0) Neutrophils (%) (Auto) 77.0 % (16.0-70.0) Lymphocytes (%) (Auto) 12.6 % (9.0-44.0) Monocytes (%) (Auto) 5.0 % (0.0-8.0) Eosinophils (%) (Auto) 4.0 % (0.0-4.0) Basophils (%) (Auto) 1.4 % (0.0-2.0) Neutrophils # (Auto) 11.0 TH/MM3 (1.8-7.7) Lymphocytes # (Auto) 1.8 TH/MM3 (1.0-4.8) Monocytes # (Auto) 0.7 TH/MM3 (0-0.9) Eosinophils # (Auto) 0.6 TH/MM3 (0-0.4) Basophils # (Auto) 0.2 TH/MM3 (0-0.2) CBC Comment AUTO DIFF Differential Total Cells 100 Counted Neutrophils % (Manual) 70 % (16-70) Band Neutrophils % 12 % (0-6) Lymphocytes % 9 % (9-44) Monocytes % 5 % (0-8) Eosinophils % 2 % (0-4) Neutrophils # (Manual) 12.0 TH/MM3 (1.8-7.7) Metamyelocytes 2 % (0-1) Differential Comment FINAL DIFF MANUAL Platelet Estimate NORMAL (NORMAL) Platelet Morphology Comment NORMAL (NORMAL) Target Cells 1+ (NORMAL) Ovalocytes 1+ (NORMAL) Potassium Level 3.2 MEQ/L (3.5-5.1) Chloride Level 122 MEQ/L (98-107) Carbon Dioxide Level 23.0 MEQ/L (21.0-32.0) Anion Gap 8 MEQ/L (5-15) Blood Urea Nitrogen 7 MG/DL (7-18) Creatinine 0.59 MG/DL (0.50-1.00) Estimat Glomerular Filtration 132 ML/MIN Rate (>89) Random Glucose 97 MG/DL (74-106) Calcium Level 7.8 MG/DL (8.5-10.1) Magnesium Level 1.7 MG/DL (1.5-2.5) Total Bilirubin 0.4 MG/DL (0.2-1.0) Aspartate Amino Transf 43 U/L (15-37) (AST/SGOT) Alanine Aminotransferase 32 U/L (10-53) (ALT/SGPT) Alkaline Phosphatase 111 U/L (45-117) Total Protein 5.6 GM/DL (6.4-8.2) Albumin 1.4 GM/DL (3.4-5.0) Test 04/22/16 04/22/16 04/22/16 04/22/16 10:15 11:00 13:35 14:09 Blood Type O POSITIVE O POSITIVE Antibody Screen NEGATIVE Crossmatch Leukocyte-Reduced Leukocyte-Reduced Red Blood Red Blood Cells Cells Blood Bank Comment Sodium Level 155 MEQ/L (136-145) Serum Osmolality 316 MOSM/KG (275-295) Potassium Level 3.3 MEQ/L (3.5-5.1) Vancomycin Level Trough 15.7 MCG/ML (5.0-10.0) Test 04/22/16 04/22/16 04/23/16 04/23/16 17:00 23:27 00:05 04:00 Sodium Level 155 MEQ/L 155 MEQ/L 158 MEQ/L (136-145) (136-145) (136-145) Serum Osmolality 318 MOSM/KG 318 MOSM/KG 319 MOSM/KG (275-295) (275-295) (275-295) Blood Gas Puncture Site ART LINE Blood Gas Patient Temperature 98.6 Blood Gas HCO3 22 mmol/L (22-26) Blood Gas Base Excess -0.7 mmol/L (-2-2) Blood Gas Oxygen Saturation 97 % (90-100) Arterial Blood pH 7.55 (7.380-7.420) Arterial Blood Partial 25 mmHg (38-42) Pressure CO2 Arterial Blood Partial 167 mmHg Pressure O2 (61-120) Arterial Blood Oxygen Content 12.7 Vol % (12.0-20.0) Arterial Blood 1.4 % (0-4) Carboxyhemoglobin Arterial Blood Methemoglobin 0.8 % (0-2) Blood Gas Hemoglobin 9.1 G/DL (12.0-16.0) Oxygen Delivery Device VENTILATOR Blood Gas Ventilator Setting PC/AC Blood Gas Inspired Oxygen 50 % Potassium Level 3.1 MEQ/L (3.5-5.1) Chloride Level 123 MEQ/L (98-107) Carbon Dioxide Level 24.4 MEQ/L (21.0-32.0) Anion Gap 8 MEQ/L (5-15) Blood Urea Nitrogen 7 MG/DL (7-18) Creatinine 0.59 MG/DL (0.50-1.00) Estimat Glomerular Filtration 132 ML/MIN Rate (>89) Random Glucose 91 MG/DL (74-106) Calcium Level 8.4 MG/DL (8.5-10.1) Phosphorus Level 2.6 MG/DL (2.5-4.9) Magnesium Level 1.6 MG/DL 1.6 MG/DL (1.5-2.5) (1.5-2.5) Total Bilirubin 0.6 MG/DL (0.2-1.0) Aspartate Amino Transf 49 U/L (15-37) (AST/SGOT) Alanine Aminotransferase 37 U/L (10-53) (ALT/SGPT) Alkaline Phosphatase 159 U/L (45-117) Total Protein 6.3 GM/DL (6.4-8.2) Albumin 1.5 GM/DL (3.4-5.0) White Blood Count 17.0 TH/MM3 (4.0-11.0) Red Blood Count 3.65 MIL/MM3 (4.00-5.30) Hemoglobin 8.7 GM/DL (11.6-15.3) Hematocrit 26.8 % (35.0-46.0) Mean Corpuscular Volume 73.5 FL (80.0-100.0) Mean Corpuscular Hemoglobin 24.0 PG (27.0-34.0) Mean Corpuscular Hemoglobin 32.6 % Concent (32.0-36.0) Red Cell Distribution Width 27.3 % (11.6-17.2) Platelet Count 240 TH/MM3 (150-450) Mean Platelet Volume 8.6 FL (7.0-11.0) Neutrophils (%) (Auto) 84.6 % (16.0-70.0) Lymphocytes (%) (Auto) 7.6 % (9.0-44.0) Monocytes (%) (Auto) 4.8 % (0.0-8.0) Eosinophils (%) (Auto) 2.6 % (0.0-4.0) Basophils (%) (Auto) 0.4 % (0.0-2.0) Neutrophils # (Auto) 14.4 TH/MM3 (1.8-7.7) Lymphocytes # (Auto) 1.3 TH/MM3 (1.0-4.8) Monocytes # (Auto) 0.8 TH/MM3 (0-0.9) Eosinophils # (Auto) 0.4 TH/MM3 (0-0.4) Basophils # (Auto) 0.1 TH/MM3 (0-0.2) CBC Comment AUTO DIFF Differential Comment AUTO DIFF CONFIRMED Target Cells 1+ (NORMAL) Ovalocytes 1+ (NORMAL) Test 04/23/16 04/23/16 04/23/16 04/23/16 11:40 17:00 22:00 23:55 Sodium Level 158 MEQ/L 161 MEQ/L (136-145) (136-145) Serum Osmolality 326 MOSM/KG 332 MOSM/KG (275-295) (275-295) Potassium Level 3.7 MEQ/L (3.5-5.1) Phosphorus Level 3.0 MG/DL (2.5-4.9) Magnesium Level 2.0 MG/DL (1.5-2.5) Hemoglobin 8.2 GM/DL (11.6-15.3) Hematocrit 25.9 % (35.0-46.0) Blood Gas Puncture Site ART LINE Blood Gas Patient Temperature 98.6 Blood Gas HCO3 19 mmol/L (22-26) Blood Gas Base Excess -4.5 mmol/L (-2-2) Blood Gas Oxygen Saturation 96 % (90-100) Arterial Blood pH 7.42 (7.380-7.420) Arterial Blood Partial 30 mmHg (38-42) Pressure CO2 Arterial Blood Partial 110 mmHg Pressure O2 (61-120) Arterial Blood Oxygen Content 17.8 Vol % (12.0-20.0) Arterial Blood 1.0 % (0-4) Carboxyhemoglobin Arterial Blood Methemoglobin 0.9 % (0-2) Blood Gas Hemoglobin 13.1 G/DL (12.0-16.0) Oxygen Delivery Device VENTILATOR Blood Gas Ventilator Setting PC/AC Blood Gas Inspired Oxygen 40 % Test 04/24/16 03:00 White Blood Count 16.5 TH/MM3 (4.0-11.0) Red Blood Count 3.31 MIL/MM3 (4.00-5.30) Hemoglobin 7.9 GM/DL (11.6-15.3) Hematocrit 24.8 % (35.0-46.0) Mean Corpuscular Volume 74.8 FL (80.0-100.0) Mean Corpuscular Hemoglobin 23.8 PG (27.0-34.0) Mean Corpuscular Hemoglobin 31.8 % Concent (32.0-36.0) Red Cell Distribution Width 27.4 % (11.6-17.2) Platelet Count 216 TH/MM3 (150-450) Mean Platelet Volume 8.3 FL (7.0-11.0) Neutrophils (%) (Auto) 84.1 % (16.0-70.0) Lymphocytes (%) (Auto) 8.7 % (9.0-44.0) Monocytes (%) (Auto) 4.8 % (0.0-8.0) Eosinophils (%) (Auto) 2.1 % (0.0-4.0) Basophils (%) (Auto) 0.3 % (0.0-2.0) Neutrophils # (Auto) 13.9 TH/MM3 (1.8-7.7) Lymphocytes # (Auto) 1.4 TH/MM3 (1.0-4.8) Monocytes # (Auto) 0.8 TH/MM3 (0-0.9) Eosinophils # (Auto) 0.3 TH/MM3 (0-0.4) Basophils # (Auto) 0.1 TH/MM3 (0-0.2) CBC Comment AUTO DIFF Differential Total Cells 100 Counted Neutrophils % (Manual) 83 % (16-70) Band Neutrophils % 1 % (0-6) Lymphocytes % 5 % (9-44) Monocytes % 3 % (0-8) Eosinophils % 3 % (0-4) Neutrophils # (Manual) 14.7 TH/MM3 (1.8-7.7) Metamyelocytes 1 % (0-1) Myelocytes 4 % (0-0) Differential Comment FINAL DIFF MANUAL Platelet Estimate NORMAL (NORMAL) Platelet Morphology Comment NORMAL (NORMAL) Spherocytes OCC (NORMAL) Ovalocytes 1+ (NORMAL) Acanthocytes OCC (NORMAL) Keratocytes OCC (NORMAL) Sodium Level 159 MEQ/L (136-145) Potassium Level 3.4 MEQ/L (3.5-5.1) Chloride Level 129 MEQ/L (98-107) Carbon Dioxide Level 21.6 MEQ/L (21.0-32.0) Anion Gap 8 MEQ/L (5-15) Blood Urea Nitrogen 10 MG/DL (7-18) Creatinine 0.74 MG/DL (0.50-1.00) Estimat Glomerular Filtration 101 ML/MIN Rate (>89) Random Glucose 85 MG/DL (74-106) Serum Osmolality 330 MOSM/KG (275-295) Calcium Level 8.2 MG/DL (8.5-10.1) Magnesium Level 2.0 MG/DL (1.5-2.5) Total Bilirubin 0.5 MG/DL (0.2-1.0) Aspartate Amino Transf 45 U/L (15-37) (AST/SGOT) Alanine Aminotransferase 36 U/L (10-53) (ALT/SGPT) Alkaline Phosphatase 102 U/L (45-117) Total Protein 5.5 GM/DL (6.4-8.2) Albumin 1.4 GM/DL (3.4-5.0) Result Diagram: 04/24/16 0300 04/24/16 030 Microbiology Microbiology Date/Time Procedure Status Source Growth 04/20/16 15:50 Gram Stain - Final Complete Sputum Endotracheal 04/20/16 15:50 Sputum Culture - Final Complete Sputum Endotracheal LIGHT GROWTH NORMAL RESPIRATORY TAMANNA 04/20/16 14:45 Aerobic Blood Culture - Preliminary Resulted Blood Peripheral NO GROWTH IN 3 DAYS 04/20/16 14:45 Anaerobic Blood Culture - Preliminary Resulted Blood Peripheral NO GROWTH IN 3 DAYS 04/20/16 12:30 Urine Culture - Final Complete Urine Catheterized Urine NO GROWTH IN 48 HOURS. Imaging Last Impressions Chest X-Ray 04/24/16599 Signed Impressions: Service Date/Time: March 05:13 - CONCLUSION: No significant interval change with the bibasilar infiltrates. Alfonso Escoto MD Head CTA 04/22/16599 Signed Impressions: Service Date/Time: Friday, April 22, 2016 09:26 - CONCLUSION: 1. The intracranial circulation remains patent. The exam demonstrates significantly more edema surrounding the patient's large area of intraparenchymal hemorrhage on the left. There is at least 1.3 cm of left to right falcine shift. This is significantly worse when compared to the previous examination. This appears to be the result of worsening edema around the patient's intraparenchymal hemorrhage. Eric Castellanos MD Head CT 04/22/16599 Signed Impressions: Service Date/Time: Friday, April 22, 2016 09:26 - CONCLUSION: Evolving left frontotemporal hemorrhage with mass effect and increasing left to right midline shift of 15 mm. Subarachnoid hemorrhage and intraventricular hemorrhage again seen. Nathen Howard MD Neck CTA 04/11/16 1151 Signed Impressions: Service Date/Time: Monday, April 11, 2016 12:01 - CONCLUSION: Negative for hemodynamically significant carotid stenosis. Ricardo Castellanos MD FACR Cerebral Arteriogram 04/11/16 0000 Signed Impressions: Service Date/Time: Monday, April 11, 2016 14:18 - CONCLUSION: 1. 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 This is the aneurysm felt responsible for the intracranial hemorrhage. 2. Small 4 mm left M1 segment aneurysm. Attempts at embolizing this aneurysm were unsuccessful due to the broad based nature of the aneurysm. Endovascular repair of this aneurysm could not be performed. Kennedy Thibodeaux Jr., MD Assessment and Plan Disease Oriented Problem List: (1) Acute spontaneous subarachnoid intracranial hemorrhage (2) Cerebral aneurysm rupture (3) Hypertension Symptom Scale: (1) Dyspnea Comment: Intubated for airway protection (2) Encephalopathy Comment: MCA hemorrhage, status post aneurysm rupture, status post IR coiling (3) Malnutrition Comment: +OGT, will require longer term feeding tube to meet nutritional requirements Pertinent Non-Medical Issues Psychosocial: lived locally, independent. supported by several brothers , 1 sister, 1 adult daughter. not . Spiritual:yazdanism, talend developer within family providing support for family/pt Legal:Patient is not able to participate in decision-making due to clinical condition, not clear that she will regain this ability. She is not . Per [place] statutes legal decision making would fall to her adult daughter. Daughter is also supported by pt multiple siblings. Ethical issues impacting care: Important Contacts Solo Hoskins (daughter) [phone] Donna [id number] Brother Fei Pride [phone] Brother Kenn Pride Brother Jared Bigg Brother Jamil Ellington . 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 Status post coiling of one aneurysm. Continues to have elevated ICPs and poor neuro exam. May require craniotomy due to labile ICP and worsening edema. Will likely require prolonged hospital course and will be high risk for further complications/setbacks while supportive care continues. Will likely require tracheostomy and PEG tube placement for ongoing aggressive treatment. Not expected to regain independent function, will likely have significant deficits if she can survive acute course and may remain dependent for care. Code Status: Full Code Plan * d/w daughter today via phone (see subjective) -- she is going to talk more w family, but sounds as if they are leaning towards continued aggressive interventions,and whatever treatments may help Ms Pride survive. * Legal decision maker- per records patient is not . daughter indicates she is patient's only child . Per [place] statutes adult daughter would be legal decision maker. She also supported by pt's multiple siblings. * Symptoms: --Encephalopathy-s/pMCA hemorrhage, status post aneurysm rupture, status post IR coiling// may need bone flap removal for cont edema --Dyspnea- intubated for airway protection, sedated/no resp distress on mech vent. + suspected aspiration pneumonia, on abx coverage for --malnutrition -+OGT, will require longer term feeding tube to meet nutritional requirements * Palliative care will continue to follow during hospital course as condition evolves, to assist patient/decision-maker with understanding of medical conditions, weighing benefits/burdens of treatment options, for clarification of goals of treatment. Additionally will assist with any symptoms of palliative concern Time Spent Total Floor Time (mins): 35 >50% Counseling/Coord of Care: Yes (d/w neuro, primary RN) Attestation To help prompt me to consider important information that might be impacting today's encounter and assessment, information from prior notes written by myself or my colleagues may have been "brought forward" into today's note. My signature on this note, however, is an attestation that I personally performed the exam, history, and/or decision-making noted today, and, unless otherwise indicated, the interactions with patient, family, and staff as well as the review of records all occurred today. I also attest that the listed assessment and stated plan reflect my best clinical judgment today based on the combination of historical information, prior notes, and today's exam/ interactions. When time spent is documented, it refers only to time spent today by the signer, or if indicated, combined time spent today by collaborating physician/nurse practitioner. Ashley Wharton Apr 24, 2016 10:26
[2016-04-24] MEDS: PROPOFOL 1000 MG/100 ML IV SCH ×3 (11:22→17:18)
[2016-04-24] MEDS: MIDAZOLAM 100 MG/ML INJ 100 ML IV SCH ×2 (11:58→17:18)
[2016-04-24 14:13] LABS: BLOOD GAS BASE EXCESS -5.1 mmol/L (-2-2); BLOOD GAS CARBOXYHEMOGLOBIN 1.4 % (0-4); BLOOD GAS HCO3 18 mmol/L (22-26); BLOOD GAS METHEMOGLOBIN 0.7 % (0-2); BLOOD GAS O2 HGB SATURATION 97 % (90-100); BLOOD GAS OXYGEN CONTENT 12.6 Vol % (12.0-20.0); BLOOD GAS PCO2 22 mmHg (38-42); BLOOD GAS PO2 130 mmHg (61-120); BLOOD GAS TOTAL HGB 9.1 G/DL (12.0-16.0); TEMP CORR TO 98.6
[2016-04-24 14:15] LABS: CRITICAL VALUE YES; OXYGEN DEVICE VENTILATOR
[2016-04-24 14:16] LABS: DRAW SITE ART LINE; FIO2 40 %; STAT NO; VENT SETTINGS PC/AC/18/IT1.0/IP24/
--- NOTE | 2016-04-24 15:06 | RADRPT ---
EXAM DATE/TIME: 04/24/2016 14:39 [facility] COMPARISON: CT BRAIN W/O CONTRAST, April 11, 2016, 11:32. ANGIOGRAM, CEREBRAL WO ARCH, April 11, 2016, 14:18. CTA BRAIN W 3D RECON, April 22, 2016, 9:26. CT BRAIN W/O CONTRAST, April 22, 2016, 9:26. INDICATIONS : Follow-up subarachnoid hemorrhage. RADIATION DOSE: 66.79 CTDIvol (mGy) MEDICAL HISTORY : Subarachnoid hemorrhage. SURGICAL HISTORY : Non-responsive. ENCOUNTER: Subsequent ACUITY: 2 days PAIN SCALE: Non-responsive LOCATION: cranial TECHNIQUE: Multiple contiguous axial images were obtained of the head. Using automated exposure control and adj ustment of the mA and/or kV according to patient size, radiation dose was kept as low as reasonably a chievable to obtain optimal diagnostic quality images. FINDINGS: Enlarged left frontal temporal intra-axial hematoma is evolving with decreasing density of the hemorr hagic products. There is continued significant mass effect and with left to right shift of midline st ructures of approximately 15 mm. Left side of the suprasellar cistern remains effaced. Right frontal ventriculostomy tube remains in good position. The ventricular system remains stable wi thout significant dilatation. Decreased density is developing medially within the right frontal lobe. Streak artifact from the patient's coil mass is again noted. CONCLUSION: Persistent significant mass effect associated with the large left frontal temporal hematoma. No significant change in exmf-du-arpiw midline shift. Decreased density in the right frontal lobe which may indicate vascular compromise due to mass effect and a developing infarct. Stable ventricular system following ventriculostomy placement. Saqib Garcia MD on April 24, 2016 at 14:51 Board Certified Radiologist. This report was verified electronically.
--- NOTE | 2016-04-24 15:22 | RADRPT ---
EXAM DATE/TIME: 04/24/2016 14:39 [facility] COMPARISON: No previous studies available for comparison. INDICATIONS : Diffuse abdominal pain with diarrhea and constipation and unknown anemia. ORAL CONTRAST: No oral contrast ingested. RADIATION DOSE: 16.96 CTDIvol (mGy) MEDICAL HISTORY : Hypertension. SURGICAL HISTORY : Tubal ligation. ENCOUNTER: Initial ACUITY: 1 day PAIN SCALE: Non-responsive LOCATION: abdomen TECHNIQUE: Volumetric scanning of the abdomen and pelvis was performed. Using automated exposure control and ad justment of the mA and/or kV according to patient size, radiation dose was kept as low as reasonably achievable to obtain optimal diagnostic quality images. FINDINGS: LOWER LUNGS: Bibasilar consolidating infiltrate with small bilateral pleural effusions are noted. LIVER: Homogeneous density without lesion. There is no dilation of the biliary tree. No calcified gallston es. SPLEEN: Normal size without lesion. PANCREAS: Within normal limits. KIDNEYS: Normal in size and shape. There is no mass, stone, or hydronephrosis. ADRENAL GLANDS: Within normal limits. VASCULAR: There is no aortic aneurysm. BOWEL/MESENTERY: Mildly distended loops of small bowel containing air-fluid levels are noted. There is no spondylotic distention. Nasogastric tube is within the stomach. ABDOMINAL WALL: Edematous changes are noted throughout the soft tissues of the abdomen. RETROPERITONEUM: There is no lymphadenopathy. BLADDER: No wall thickening or mass. REPRODUCTIVE: Within normal limits. INGUINAL: There is no lymphadenopathy or hernia. MUSCULOSKELETAL: Within normal limits for patient age. CONCLUSION: Mild small bowel ileus with scattered air-fluid levels. Bibasilar lung consolidation with associated small effusions. Significant soft tissue fluid accumulation with edematous changes throughout the abdominal wall. Nasogastric tube in good position. Saqib Garcia MD on April 24, 2016 at 15:14 Board Certified Radiologist. This report was verified electronically.
--- NOTE | 2016-04-24 15:44 | PD.CONS ---
HPI History of Present Illness This is a 46 year old who is currently admitted to the ICU with severe subarachnoid hemorrhage and left parenchymal bleed and ruptured aneurysm, with cerebral edema and elevated ICP. She is sedated on the ventilator in the ICU being treated for the above, as well as acute encephalopathy, uncontrolled htn, acute respiratory failure, HCAP, and severe sepsis. She is unable to provide any history and therefore the history has been obtained from the EMR. She is being followed by Neurosurgery and just got back from having a repeat CT scan for evaluation of persistent elevated ICPs. Her daughter leena Hoskins is the healthcare decision maker and when palliative care spoke to her earlier, she was leaning towards continued aggressive interventions/treatment, but was going to speak more with the family. However, she has not been able to reached since that time. The nurse reports that the patient may be going for a decompressive craniotomy in the near future. GI has been consulted for PEG tube placement. The plate roller is following and has recommended Jevity 1.5 @ 50 mls/hr. (Maddie Diaz) PFSH Past Medical History Hypertension Hx retinal tear History ectopic Past Surgical History Tubal ligation Eye surgery (Maddie Diaz) Coded Allergies: No Known Allergies (Verified , 04/11/16) Medications Allergies Coded Allergies Type Severity Reaction Last Updated Verified No Known Allergies 04/11/16 Yes Active Scripts Medications Dose Route/Sig Days Date Category Anaprox Ds (Naproxen Sodium) 550 Mg Tab 1 Tab PO BIDPRN 05/20/10 Rx Coreg 12.5 mg (Carvedilol) 12.5 Mg Tab 12.5 Mg PO BID 05/20/10 Reported Prinivil (Lisinopril) 20 Mg Tab 20 Mg PO DAILY 05/20/10 Reported Family History Mother with heart disease, from complications after open heart surgery Social History Unable to obtain (Maddie Diaz) Review of Systems ROS Unable to obtain (Maddie Diaz) GI Exam Vitals I&O Vital Signs Date Time Temp Pulse Resp B/P Pulse Ox O2 Delivery O2 Flow Rate FiO2 04/24/16 12:00 100.3 88 16 184/85 99 04/24/16 12:00 40 04/24/16 12:00 88 04/24/16 11:55 99 40 8/25/16 10:00 88 04/24/16 09:00 102.0 110 20 182/89 99 04/24/16 08:39 40 04/24/16 08:39 94 40 04/24/16 08:30 102.0 105 19 206/97 98 04/24/16 08:17 102.7 110 20 156/88 100 Automatic Cuff 04/24/16 08:00 40 04/24/16 08:00 105 04/24/16 08:00 102.7 105 19 194/93 98 04/24/16 06:00 99 04/24/16 06:00 99 184/87 04/24/16 04:14 98 40 04/24/16 04:00 40 04/24/16 04:00 99.8 99 15 171/80 100 04/24/16 04:00 80 04/24/16 02:00 97 04/24/16 01:49 98 40 04/24/16 00:00 80 04/24/16 00:00 40 04/24/16 00:00 98.8 87 15 183/87 100 04/23/16 22:00 74 04/23/16 20:00 40 04/23/16 20:00 98.9 87 15 183/85 100 04/23/16 20:00 87 04/23/16 19:56 100 40 04/23/16 18:00 91 04/23/16 18:00 84 161/77 04/23/16 16:08 100 40 04/23/16 16:00 89 04/23/16 16:00 40 04/23/16 16:00 99.6 89 15 197/90 100 I/O 04/23/16 04/23/16 04/23/16 04/24/16 04/24/16 04/24/16 07:00 15:00 23:00 07:00 15:00 23:00 Intake Total 2046 ml 2421 ml 1036 ml 1130 ml Output Total 1470 ml 935 ml 1156 ml 1210 ml Balance 576 ml 1486 ml -120 ml -80 ml IV Total 1823 ml 2361 ml 718 ml 896 ml Lipid 163 ml 198 ml 174 ml Tube Irrigant 60 ml 60 ml 120 ml 60 ml Output Urine Total 1400 ml 850 ml 1000 ml 950 ml Stool Total 0 ml 100 ml 200 ml Drainage Total 70 ml 85 ml 56 ml 60 ml Imaging Last Impressions Chest X-Ray 04/24/16 0600 Signed Impressions: Service Date/Time: March 05:13 - CONCLUSION: No significant interval change with the bibasilar infiltrates. Alfonso Escoto MD Head CT 04/24/16 0000 Signed Impressions: Service Date/Time: March 14:39 - CONCLUSION: Persistent significant mass effect associated with the large left frontal temporal hematoma. No significant change in ifld-iw-cafux midline shift. Decreased density in the right frontal lobe which may indicate vascular compromise due to mass effect and a developing infarct. Stable ventricular system following ventriculostomy placement. Saqib Garcia MD Head CTA 04/22/16 0600 Signed Impressions: Service Date/Time: Friday, April 22, 2016 09:26 - CONCLUSION: 1. The intracranial circulation remains patent. The exam demonstrates significantly more edema surrounding the patient's large area of intraparenchymal hemorrhage on the left. There is at least 1.3 cm of left to right falcine shift. This is significantly worse when compared to the previous examination. This appears to be the result of worsening edema around the patient's intraparenchymal hemorrhage. Eric Castellanos MD Neck CTA 04/11/16 1151 Signed Impressions: Service Date/Time: Monday, April 11, 2016 12:01 - CONCLUSION: Negative for hemodynamically significant carotid stenosis. Ricardo Castellanos MD FACR Cerebral Arteriogram 04/11/16 0000 Signed Impressions: Service Date/Time: Monday, April 11, 2016 14:18 - CONCLUSION: 1. 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 This is the aneurysm felt responsible for the intracranial hemorrhage. 2. Small 4 mm left M1 segment aneurysm. Attempts at embolizing this aneurysm were unsuccessful due to the broad based nature of the aneurysm. Endovascular repair of this aneurysm could not be performed. Kennedy Thibodeaux Jr., MD Laboratory Test 04/23/16 04/23/16 04/23/16 04/24/16 17:00 22:00 23:55 03:00 Sodium Level 161 MEQ/L 159 MEQ/L Potassium Level 3.7 MEQ/L 3.4 MEQ/L Serum Osmolality 332 MOSM/KG 330 MOSM/KG Phosphorus Level 3.0 MG/DL Magnesium Level 2.0 MG/DL 2.0 MG/DL Hemoglobin 8.2 GM/DL 7.9 GM/DL Hematocrit 25.9 % 24.8 % Blood Gas Puncture Site ART LINE Blood Gas Patient Temperature 98.6 Blood Gas HCO3 19 mmol/L Blood Gas Base Excess -4.5 mmol/L Blood Gas Oxygen Saturation 96 % Arterial Blood pH 7.42 Arterial Blood Partial 30 mmHg Pressure CO2 Arterial Blood Partial 110 mmHg Pressure O2 Arterial Blood Oxygen Content 17.8 Vol % Arterial Blood 1.0 % Carboxyhemoglobin Arterial Blood Methemoglobin 0.9 % Blood Gas Hemoglobin 13.1 G/DL Oxygen Delivery Device VENTILATOR Blood Gas Ventilator Setting PC/AC Blood Gas Inspired Oxygen 40 % White Blood Count 16.5 TH/MM3 Red Blood Count 3.31 MIL/MM3 Mean Corpuscular Volume 74.8 FL Mean Corpuscular Hemoglobin 23.8 PG Mean Corpuscular Hemoglobin 31.8 % Concent Red Cell Distribution Width 27.4 % Platelet Count 216 TH/MM3 Mean Platelet Volume 8.3 FL Neutrophils (%) (Auto) 84.1 % Lymphocytes (%) (Auto) 8.7 % Monocytes (%) (Auto) 4.8 % Eosinophils (%) (Auto) 2.1 % Basophils (%) (Auto) 0.3 % Neutrophils # (Auto) 13.9 TH/MM3 Lymphocytes # (Auto) 1.4 TH/MM3 Monocytes # (Auto) 0.8 TH/MM3 Eosinophils # (Auto) 0.3 TH/MM3 Basophils # (Auto) 0.1 TH/MM3 CBC Comment AUTO DIFF Differential Total Cells 100 Counted Neutrophils % (Manual) 83 % Band Neutrophils % 1 % Lymphocytes % 5 % Monocytes % 3 % Eosinophils % 3 % Neutrophils # (Manual) 14.7 TH/MM3 Metamyelocytes 1 % Myelocytes 4 % Differential Comment FINAL DIFF MANUAL Platelet Estimate NORMAL Platelet Morphology Comment NORMAL Spherocytes OCC Ovalocytes 1+ Acanthocytes OCC Keratocytes OCC Chloride Level 129 MEQ/L Carbon Dioxide Level 21.6 MEQ/L Anion Gap 8 MEQ/L Blood Urea Nitrogen 10 MG/DL Creatinine 0.74 MG/DL Estimat Glomerular Filtration 101 ML/MIN Rate Random Glucose 85 MG/DL Calcium Level 8.2 MG/DL Total Bilirubin 0.5 MG/DL Aspartate Amino Transf 45 U/L (AST/SGOT) Alanine Aminotransferase 36 U/L (ALT/SGPT) Alkaline Phosphatase 102 U/L Total Protein 5.5 GM/DL Albumin 1.4 GM/DL Test 04/24/16 04/24/16 11:30 14:00 Sodium Level 162 MEQ/L Serum Osmolality 333 MOSM/KG Blood Gas Puncture Site ART LINE Blood Gas Patient Temperature 98.6 Blood Gas HCO3 18 mmol/L Blood Gas Base Excess -5.1 mmol/L Blood Gas Oxygen Saturation 97 % Arterial Blood pH 7.51 Arterial Blood Partial 22 mmHg Pressure CO2 Arterial Blood Partial 130 mmHg Pressure O2 Arterial Blood Oxygen Content 12.6 Vol % Arterial Blood 1.4 % Carboxyhemoglobin Arterial Blood Methemoglobin 0.7 % Blood Gas Hemoglobin 9.1 G/DL Oxygen Delivery Device VENTILATOR Blood Gas Ventilator Setting PC/AC/18/IT1.0/IP24/ Blood Gas Inspired Oxygen 40 % Date/Time Procedure Status Source Growth 04/24/16 10:34 Stool Occult Blood (BYRON) - Final Complete Stool Stool HEMOCCULT NEGATIVE 04/20/16 15:50 Gram Stain - Final Complete Sputum Endotracheal 04/20/16 15:50 Sputum Culture - Final Complete Sputum Endotracheal LIGHT GROWTH NORMAL RESPIRATORY TAMANNA 04/20/16 14:45 Aerobic Blood Culture - Preliminary Resulted Blood Peripheral NO GROWTH IN 4 DAYS 04/20/16 14:45 Anaerobic Blood Culture - Preliminary Resulted Blood Peripheral NO GROWTH IN 4 DAYS 04/20/16 12:30 Urine Culture - Final Complete Urine Catheterized Urine NO GROWTH IN 48 HOURS. Physical Examination HEENT: ICP Catheter. Angioedema CHEST: OETT vent. Rhonchi CARDIAC: RRR ABDOMEN: Soft, nondistended, nontender; no hepatosplenomegaly; bowel sounds are present in all four quadrants. Flexiseal EXTREMITIES: Generalized edema. SKIN: Normal; no rash; no jaundice. [employer]: Sedated on vent. (Maddie Diaz) Assessment and Plan Plan ASSESSMENT: - Dysphagia, Fen. 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 NSx following, may need decompressive craniectomy. Daughter originally was leaning towards aggressive tx, but is now not able to be reached for consents. She is sedated on the ventilator. GI has been consulted for PEG tube placement. The plate roller is following and has recommended Jevity 1.5 @ 50 mls/hr. - Anemia. 7.9/24.8. No obvious bleeding. CT Scan pending. - Resp. Failure. On vent. GS consulted for tracheostomy PLAN: - Plan for EGD with peg when patient stable and daughter agreeable. - PPI - Monitor HH - Transfuse as necessary - Await CT scan - Supportive care - Further recommendations to follow based on results of above - Pt seen and examined by Dr. Torres and myself and this note is written on her behalf (Maddie Diaz) Physician Comments seen, examined agree with above (Carmina Torres MD) Maddie Diaz Apr 24, 2016 15:43 Carmina Torres MD Apr 25, 2016 06:51
[2016-04-24] MEDS: NOREPINEPHRINE INJ 4 MG in SODIUM CHLOR 0.9% 250 ML INJ 250 ML IV SCH (16:15)
[2016-04-24 16:53] LABS: BLOOD GAS BASE EXCESS -6.6 mmol/L (-2-2); BLOOD GAS CARBOXYHEMOGLOBIN 1.4 % (0-4); BLOOD GAS HCO3 17 mmol/L (22-26); BLOOD GAS METHEMOGLOBIN 0.9 % (0-2); BLOOD GAS O2 HGB SATURATION 93 % (90-100); BLOOD GAS OXYGEN CONTENT 12.3 Vol % (12.0-20.0); BLOOD GAS PCO2 28 mmHg (38-42); BLOOD GAS PO2 83 mmHg (61-120); BLOOD GAS TOTAL HGB 9.3 G/DL (12.0-16.0); CRITICAL VALUE NO; OXYGEN DEVICE VENTILATOR; TEMP CORR TO 98.6
[2016-04-24 16:55] LABS: DRAW SITE ART LINE; STAT NO; VENT SETTINGS PC/AC
[2016-04-24] MEDS: LEVOFLOXACIN 750 MG PREMIX INJ 150 ML IV SCH (17:18)
--- NOTE | 2016-04-24 17:41 | HHI.CCPN ---
Subjective Remarks/Hospital Course SAH, unresponsive, malignant hypertension - This 46-year-old woman with a longstanding history of hypertension, was found unresponsive at her home and paramedics arrived to find her with shallow breathing and a Angelica coma scale of three. Systolic blood pressure was 290 and under bag mask ventilation. She was brought to the emergency department where she remained unresponsive and required endotracheal intubation, mechanical ventilation. A CT scan of the head showed a large left hemispheric intraparenchymal hemorrhage with subarachnoid blood as well. Subsequent evaluation confirmed a left middle cerebral artery aneurysm which appears to be the culprit lesion. She was brought immediately to the [facility] where we continued Cardene drip infusion for blood pressure control and placed arterial monitoring lines and central venous line. Electrolyte abnormalities were corrected, particularly severe hypokalemia. The ventilator was adjusted to maintain arterial CO2, between 35 and 40. She received Keppra loading intravenously and Nimotop through the nasogastric tube. Usual ICU monitoring was in place and arrangements were made, a ventriculostomy was placed, and transported expeditiously to interventional radiology where attempts will be made to coil the aneurysm. 04/12: Culprit (larger) aneurysm was coiled last evening. ICP acceptable with drainage bloody as expected. Withdraws 4 limbs to pain. 04/13: ICP starting to rise > 20, requiring vent manipulation, increased sedation, analgesia. 04/14: Intermittently ICP spiking >20, RR increased to 18, 50 mg of rocuronium 1. CT angiogram done today to rule out vasospasm 04/15: Remains heavily sedated for ICP control. Overall ICP control improved overnight-remained 12-14. Currently on propofol fentanyl and Versed. CT angiogram done yesterday 04/14/16 showed status post endovascular repair of left supraclinoid aneurysm, left M1 segment aneurysm stable no vasospasm. 04/16: Remains hypoxemic, FiO2 had to be increased to 70%, now down to 60%. Chest x-ray shows increasing right lower lobe infiltrate sputum with gram- negative rods. Blood pressure remains at target 04/17: ICP remains elevated at 22-25. Became hypothermic overnight, likely related to worsening sepsis. Repeat panculture ordered, and vancomycin 04/18: Labile hypertension. Start patient limits expanded to 150-190 systolic. Became more hypoxic now on 90% FiO2. Chest x-ray shows slight increase in right lower lobe infiltrate. Sodium at target 04/19: Remains critically ill with intermittent ICP elevation. ABG shows respiratory alkalosis, minute ventilation reduce which caused ICP to increase further. 3% saline restarted and 23% saline 1 bolus ordered. Chest x-ray shows slight improvement in the right lower lung infiltrate 04/20: ICP elevated to 31, 23% bolus given with improvement to 12-15. Low-grade fever with increase in white count to 16.4. Will send panculture. CTA brain in am 04/21: Remains critically ill with intermittent ICP elevation. ICP controlled with 23% bolus. Keeping sodium 150-160. CT head, CTA 04/22/1604/22: CT of the head shows evolving left frontoparietal hemorrhage with increasing midline shift 1.5 cm left to right. Intermittent ICP elevation was responsive to 23% saline. D/W Neurosurgery. 04/23: Intubated and ICP elevation up to 27, optimized on medical therapy and hyperosmolar therapy. Prognosis very poor according to neurosurgery. Per Dr. Ruiz, patient has suffered significant dominant hemisphere frontal temporal lobe hemorrhage and and consequent cerebral injury which reduces likelihood of functional recovery. Palliative care consulted-will meet with family today 04/24: Overnight high ICP elevations up to 40s. Currently 17-20. Family meeting with palliative care. Optimized on hyperosmolar therapy. Ct head per Dr. Meléndez- large frontal hemorrhage with mass effect, persistent midline shift Objective - Vital Signs Date Time Temp Pulse Resp B/P Pulse Ox O2 Delivery O2 Flow Rate FiO2 04/24/16 17:14 98 40 04/24/16 16:00 76 04/24/16 16:00 98.7 18 185/81 Intake and Output 04/23/16 04/23/16 04/24/16 08:00 16:00 00:00 Intake Total 2046 ml 2421 ml 1036 ml Output Total 1470 ml 935 ml 1156 ml Balance 576 ml 1486 ml -120 ml Result Diagram: 04/24/16 0300 04/24/16 1130 Other Results Laboratory Tests Test 04/11/16 04/11/16 04/12/16 13:06 20:44 05:58 Blood Gas Puncture Site ART LINE ART LINE ART LINE Blood Gas Patient Temperature 98.6 98.6 98.6 Blood Gas HCO3 20 mmol/L 21 mmol/L 19 mmol/L (22-26) (22-26) (22-26) Blood Gas Base Excess -4.2 mmol/L -3.1 mmol/L -4.9 mmol/L (-2-2) (-2-2) (-2-2) Blood Gas Oxygen Saturation 98 % (90-100) 98 % (90-100) 97 % (90-100) Arterial Blood pH 7.40 7.42 7.42 (7.380-7.420) (7.380-7.420) (7.380-7.420) Arterial Blood Partial 33 mmHg (38-42) 33 mmHg (38-42) 30 mmHg (38-42) Pressure CO2 Arterial Blood Partial 372 mmHg 450 mmHg 135 mmHg Pressure O2 (61-120) (61-120) (61-120) Arterial Blood Oxygen Content 11.0 Vol % 10.2 Vol % 15.4 Vol % (12.0-20.0) (12.0-20.0) (12.0-20.0) Arterial Blood 1.5 % (0-4) 1.4 % (0-4) 1.3 % (0-4) Carboxyhemoglobin Arterial Blood Methemoglobin 1.2 % (0-2) 1.2 % (0-2) 1.1 % (0-2) Blood Gas Hemoglobin 7.3 G/DL 6.5 G/DL 11.2 G/DL (12.0-16.0) (12.0-16.0) (12.0-16.0) Oxygen Delivery Device VENT VENTILATOR VENTILATOR Blood Gas Ventilator Setting PRVC/20RATE/500/5PEE PRVC/AC PRVC/AC Blood Gas Inspired Oxygen 100 % 100 % 40 % Objective Remarks Infusions Propofol Fentanyl Versed Nimbex-DCd 04/21 GEN: Middle-aged female who is intubated heavily sedated, critically ill HEENT: Head: Atraumatic. EVD in place, 201 ml in 24 hours. Pupils 2mm nonreactive. Tongue swollen and protuberant NECK: Supple. No resistance to motion. Orally intubated. LUNGS: Clear, no wheezes or crackles. HEART: Normal S1-S2, tachycardia, no murmur or rub, neck veins are distended. ABDOMEN: Soft, nontender, nondistended, no guarding, bowel sounds present. EXTREMITIES: Warm, well-perfused, foot and wrist pulses intact. NEUROLOGIC: Pupils 2 mm nonreactive, positive corneal. No withdrawal to pain. ICP 15-27. EVD draining bloody CSF Urinary Catheter: Yes Assessment to: Continue Vascular Central Line Catheter: Yes Assessment to: Continue A/P Assessment and Plan Acute subarachnoid hemorrhage, left middle cerebral artery aneurysm Large left frontal hemorrhage Intracranial hypertension Acute respiratory failure on mechanical ventilation RLL pneumonia/E Coli in sputum Sepsis Acute encephalopathy Malignant hypertension Status post coiling of MCA aneurysm Hypokalemia History of hypertension Lactic acidosis PLAN: NEURO: Acute subarachnoid hemorrhage, left middle cerebral artery aneurysm Intracranial hypertension Acute encephalopathy CT of the head shows evolving left frontoparietal hemorrhage with increasing midline shift 1.5 cm left to right. CT of the head repeated today shows probable developing infarct. No surgical intervention planned by N/S unless consent can be obtained. prognosis poor per neurosurgery,Per Dr. Ruiz, patient has suffered significant dominant hemisphere frontal temporal lobe hemorrhage and consequent cerebral injury which reduces likelihood of functional recovery. Palliative care meeting with family today Sedation/analgesia (Propofol, Versed and Fentanyl) to help control ICP. Mild hypervolemia using CVP. Continue Ventricular drain. Keppra, Nimotop. Treat fever aggressively. Nimbex for ICP control-DCd 04/21/16 23% PRN for ICP >20. Keep Na 150-160 due to high ICP. Continue 3% gtt and continue NS gtt. CT angiogram done 04/14, 04/16/16, 04/22/16 showed status post endovascular repair of left supraclinoid aneurysm, left M1 segment aneurysm stable no vasospasm. Continue with hypervolemia and hypertension for vasospasm prevention. Target SBP 180 for vasospasm prophylaxis. CV: Uncontrolled HTN, now permissive Target SBP 150-190 for vasospasm prophylaxis. Maintain preload, follow CVP, for hypervolemia. Use Levophed/Cardene PRN Continue Nimotop RESP: Acute respiratory failure HCAP PC/AC vent mode, adjust vent rate to keep EtCO2 28-33. Nebs prn and scheduled. Vent bundle. No vent weaning due to high ICP, severe encephalopathy Tracheostomy once ICP adequately controlled and cleared by N/S : Rebollar required for hourly output. Keep UO more than 30 mL per hour GI: Tube feeds to goal as tolerated, continue bowel regimen Lactulose to 30 ml q8. Dulcolax suppository PRN, Having BM HEME: Serial Hgb. Monitor CBC ID: Severe sepsis HCAP with E Coli, Haemophilus Sputum cx EC andrea, haemophilus and blood cultures neg to date. On Zosyn 4.5 GM IV q6 04/15/16. Levaquin was added 04/16/16 to cover for Stenotrophomonas -DCd 04/19, restarted again 04/20/16 Repeat panculture with blood urine and sputum cultures 04/17/16 negative to date CXR bilateral infiltrates, with leukocytosis and brown sputum Resend cultures due to low grade fever and increased WBC 04/20 -NEG to date ENDO: SSI for euglycemia, avoid hypokalemia, hypo Mag PX: SCDs. Protonix. Cleared by to use Lovenox for chemical DVT prophylaxis on 04/19/16 Overall impression: Severe SAH and left parenchymal bleed and ruptured aneurysm, with cerebral edema , elevated ICP. New HCAP and severe sepsis. CT of the head shows new left frontoparietal hemorrhage. Remains critically ill and prognosis guarded at best. Prognosis poor with L frontal hemorrhage- palliative care meeting today Critical care 45 mins, d/w MATT BRUSH, bedside RN Mary Enamorado MD Apr 24, 2016 17:41
[2016-04-24] MEDS ORDERED: SODIUM BICARBONATE 8.4% INJ 50 MEQ/50 ML SYR IV PUSH ONE (17:45)
[2016-04-24] MEDS: NS + KCL 20 MEQ INJ 1,000 ML IV SCH (19:42)
[2016-04-24] MEDS: niCARdipine INJ 25 MG in SODIUM CHLOR 0.9% 250 ML INJ 250 ML IV SCH ×2 (19:43→23:38)
[2016-04-24] MEDS: METOCLOPRAMIDE HCL 10 MG/2 ML VIAL IV PUSH SCH (21:30)
[2016-04-24] MEDS: POTASSIUM CHLOR 40 MEQ PREMIX 100 ML IV PRN ×2 (21:31→23:38)
[2016-04-24] MEDS ORDERED: SODIUM CHLORIDE 23.4% INJ 240 MEQ in SYRINGE/BAG 1 EA IV ONE (23:45)
[2016-04-25] VITALS (19 sets, daily range): BP systolic 142–184; BP diastolic 72–85; PULSE 66–98; RESP 12–15; TEMP 98.7–100.1; O2SAT 99–100
[2016-04-25] MEDS: niMODipine 30 MG CAP PO SCH ×7 (00:03→19:37)
[2016-04-25] MEDS: niCARdipine INJ 25 MG in SODIUM CHLOR 0.9% 250 ML INJ 250 ML IV SCH ×3 (01:30→05:47)
[2016-04-25] MEDS: fentaNYL DRIP 250 ML IV SCH ×3 (01:41→21:30)
[2016-04-25] MEDS: PROPOFOL 1000 MG/100 ML IV SCH ×6 (01:41→17:39)
[2016-04-25] MEDS: METOPROLOL TARTRATE 25 MG TAB PO SCH ×4 (02:11→19:37)
[2016-04-25] MEDS: VANCOMYCIN INJ 1,500 MG in SODIUM CHLORID 0.9% 500 ML INJ 500 ML IV SCH ×2 (02:12→13:35)
[2016-04-25] MEDS: PIPERACIL-TAZO 4.5 GM PREMIX 100 ML IV SCH ×4 (03:22→20:37)
[2016-04-25] MEDS: CHLORHEXIDINE GLUCONATE 2 % 1 PACK (2 CLOTHS) TOP SCH (04:00)
[2016-04-25] MEDS: METOCLOPRAMIDE HCL 10 MG/2 ML VIAL IV PUSH SCH ×3 (05:47→21:30)
[2016-04-25] MEDS: SODIUM CHLORIDE 23.4% INJ 240 MEQ in SYRINGE/BAG 1 EA IV SCH ×2 (06:35→10:00)
[2016-04-25] MEDS: levETIRAcetam 500 MG/NS 100 ML IV SCH ×4 (08:41→20:36)
[2016-04-25] MEDS: POTASSIUM CHLOR 40 MEQ PREMIX 100 ML IV PRN (08:41)
[2016-04-25] MEDS: PANTOPRAZOLE SODIUM 40 MG VIAL IV SCH (08:41)
[2016-04-25] MEDS: SODIUM CHLORIDE 0.9% FLUSH 5 ML FLUSH IVF SCH ×2 (08:42→21:00)
[2016-04-25] MEDS: LACTULOSE SYRUP 20 GM/30 ML CUP PO SCH (08:42)
[2016-04-25] MEDS: RESP: ALBUTEROL 2.5 MG/IPRATROPIUM 0.5 MG NEB (PRN) INH (09:16)
--- NOTE | 2016-04-25 11:07 | HHI.NSPN ---
(Genna Madrid) History Chief Complaint: status post coil for aneurysm (Genna Madrid) Interval History 04/12/16: Patient had an aneurysm coiled yesterday, intubated and sedated, ICP stable overnight 04/13/16: Increased ICP overnight, improved after a 23% saline bolus 04/14/16: ICP stable overnight 04/15/16: ICP stable, CTA stable no vasospasm 04/16/16: ICP slight increase overnight now stabilized, intubated and sedated 04/17/16: ICP increased yesterday afternoon, repeat CTA and CT stable, no vasospasm, no new hemorrhage, hypothermia overnight 04/21/16: increasing ICP over the weekend, getting 23% every 6 hours PRN. 04/22/16: ICP responding over night to 23% saline, CT and CTA planned this am. Nimbex off since yesterday. 04/23/16: ICP stable overnight, SBP increasing today RN adjusting pressors, HGB improved after 2 units of PRBC, no signs of active bleeding 04/24/16: ICP increased overnight with stimulation but not sustained, low HGB again today receiving PRBC this am 04/25/16: ICP max 38 overnight, currently 10, no family at bedside. (Genna Madrid) Exam Results Vital Signs Date Time Temp Pulse Resp B/P Pulse Ox O2 Delivery O2 Flow Rate FiO2 04/25/16 10:00 40 04/25/16 10:00 79 04/25/16 08:56 100 04/25/16 08:00 99.7 12 142/72 Intake and Output 04/24/16 04/24/16 04/25/16 08:00 16:00 00:00 Intake Total 1130 ml 2124 ml 1988 ml Output Total 1210 ml 1600 ml 1715 ml Balance -80 ml 524 ml 273 ml (Genna Madrid) Physical Examination Intubated and sedated. Sedation limits exam. No spontaneous eye opening. Absent conjugate oculocephalics. Pupils are 2 mm and non-reactive. Persistent angioedema. Abdomen soft. ICP 10 CPP 1111. EVD draining bloody CSF at 0cmH20. (Genna Madrid) Lab, Micro, Other Results Last Impressions Abdomen/Pelvis CT 04/24/16 1416 Signed Impressions: Service Date/Time: March 14:39 - CONCLUSION: Mild small bowel ileus with scattered air-fluid levels. Bibasilar lung consolidation with associated small effusions. Significant soft tissue fluid accumulation with edematous changes throughout the abdominal wall. Nasogastric tube in good position. Saqib Garcia MD Chest X-Ray 04/24/16 0600 Signed Impressions: Service Date/Time: March 05:13 - CONCLUSION: No significant interval change with the bibasilar infiltrates. Alfonso Escoto MD Head CT 04/24/16 0000 Signed Impressions: Service Date/Time: March 14:39 - CONCLUSION: Persistent significant mass effect associated with the large left frontal temporal hematoma. No significant change in [id number] midline shift. Decreased density in the right frontal lobe which may indicate vascular compromise due to mass effect and a developing infarct. Stable ventricular system following ventriculostomy placement. Saqib Garcia MD Head CTA 04/22/16 0600 Signed Impressions: Service Date/Time: Friday, April 22, 2016 09:26 - CONCLUSION: 1. The intracranial circulation remains patent. The exam demonstrates significantly more edema surrounding the patient's large area of intraparenchymal hemorrhage on the left. There is at least 1.3 cm of left to right falcine shift. This is significantly worse when compared to the previous examination. This appears to be the result of worsening edema around the patient's intraparenchymal hemorrhage. Eric Castellanos MD Neck CTA 04/11/16 1151 Signed Impressions: Service Date/Time: Monday, April 11, 2016 12:01 - CONCLUSION: Negative for hemodynamically significant carotid stenosis. Ricardo Castellanos MD FACR Cerebral Arteriogram 04/11/16 0000 Signed Impressions: Service Date/Time: Monday, April 11, 2016 14:18 - CONCLUSION: 1. 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 This is the aneurysm felt responsible for the intracranial hemorrhage. 2. Small 4 mm left M1 segment aneurysm. Attempts at embolizing this aneurysm were unsuccessful due to the broad based nature of the aneurysm. Endovascular repair of this aneurysm could not be performed. Kennedy Thibodeaux Jr., MD Laboratory Tests Test 04/24/16 04/24/16 04/24/16 04/24/16 11:30 14:00 16:40 17:30 Sodium Level 162 MEQ/L 158 MEQ/L Serum Osmolality 333 MOSM/KG 328 MOSM/KG Blood Gas Puncture Site ART LINE ART LINE Blood Gas Patient Temperature 98.6 98.6 Blood Gas HCO3 18 mmol/L 17 mmol/L Blood Gas Base Excess -5.1 mmol/L -6.6 mmol/L Blood Gas Oxygen Saturation 97 % 93 % Arterial Blood pH 7.51 7.41 Arterial Blood Partial 22 mmHg 28 mmHg Pressure CO2 Arterial Blood Partial 130 mmHg 83 mmHg Pressure O2 Arterial Blood Oxygen Content 12.6 Vol % 12.3 Vol % Arterial Blood 1.4 % 1.4 % Carboxyhemoglobin Arterial Blood Methemoglobin 0.7 % 0.9 % Blood Gas Hemoglobin 9.1 G/DL 9.3 G/DL Oxygen Delivery Device VENTILATOR VENTILATOR Blood Gas Ventilator Setting PC/AC/18/IT1.0/IP24/ PC/AC Blood Gas Inspired Oxygen 40 % Test 04/24/16 04/25/16 04/25/16 04/25/16 20:00 01:00 03:55 06:30 Potassium Level 3.2 MEQ/L 3.4 MEQ/L Sodium Level 158 MEQ/L 156 MEQ/L Serum Osmolality 327 MOSM/KG 320 MOSM/KG (Genna Madrid) Medical Decision Making Impression and Plan Impression: 1. S/P endovascular coiling of ruptured cerebral aneurysm. 04/14/16 CT angiogram stable: Status post endovascular repair of left supraclinoid aneurysm. Left M1 segment aneurysm stable 04/16/[address] and CTA stable. No vasospasm, no new hemorrhage. 04/22/16: Head CT 14mm left to right shift, and CTA perfusion, no vasospasm Plan: D/W manager quantitative, She is going to contact legal and continue to try and contact family. Per RN the daughter did not answer her phone over 5 times yesterday as attempts were made to contact her and obtain consent for surgical intervention. Goals will remain aggressive until we can obtain different direction from the daughter Ms. Brown. GI and surgery consults for Trach and PEG, pending placement next week. Continue ventilatory support and sedation. Maintain ventriculostomy at 0cmH20 Nimodipine for vasospasm prophylaxis. Maintain systolic blood pressure 180-200 range Continue to monitor sodium level, keep 145-155. 23% saline for ICP over 25. Hold for Na+ greater than 160. Elevator Conductor following for medical management Keppra for seizure prophylaxis. Protonix for ulcer prophylaxis Hold Lovenox until HGB is stabilized for a few days. Tube feeds as tolerated. (Genna Madrid) Attending Statement On the date of this note, the undersigned had a [id number] encounter with the patient. I personally examined the patient, obtained pertinent history, and reviewed the electronic medical record including pertinent laboratory results and imaging studies. I personally developed the treatment plan and perform medical decision making. All of the above was performed in the presence of the physician's assistant manager trainee, who has scribed my findings into the medical record as noted above. Continued efforts to contact the family and come to some conclusion regarding their desires for further treatment. Family has indicated their desire to continue aggressive treatment including surgical decompression if necessary to control ICP, but have not yet given consent for the procedure and have not been able to be reached for discussion today. (Sherwin Meléndez MD) Genna Madrid Apr 25, 2016 11:07 Sherwin Meléndez MD Apr 26, 2016 00:11
[2016-04-25] MEDS: MIDAZOLAM 100 MG/ML INJ 100 ML IV SCH ×2 (11:18→21:30)
[2016-04-25] MEDS ORDERED: LACTATED RINGER'S 1000 ML INJ 1,000 ML IV ONE (12:30)
[2016-04-25] MEDS ORDERED: PROPOFOL 200 MG/20 ML AMP IV ONE (12:30)
[2016-04-25] MEDS: SODIUM CHLORIDE 23.4% INJ 240 MEQ in SYRINGE/BAG 1 EA IV PRN ×2 (13:49→18:12)
[2016-04-25] MEDS: NS + KCL 20 MEQ INJ 1,000 ML IV SCH (16:25)
--- NOTE | 2016-04-25 17:17 | HHI.CCPN ---
Subjective Remarks/Hospital Course SAH, unresponsive, malignant hypertension - This 46-year-old woman with a longstanding history of hypertension, was found unresponsive at her home and paramedics arrived to find her with shallow breathing and a Angelica coma scale of three. Systolic blood pressure was 290 and under bag mask ventilation. She was brought to the emergency department where she remained unresponsive and required endotracheal intubation, mechanical ventilation. A CT scan of the head showed a large left hemispheric intraparenchymal hemorrhage with subarachnoid blood as well. Subsequent evaluation confirmed a left middle cerebral artery aneurysm which appears to be the culprit lesion. She was brought immediately to the [facility] where we continued Cardene drip infusion for blood pressure control and placed arterial monitoring lines and central venous line. Electrolyte abnormalities were corrected, particularly severe hypokalemia. The ventilator was adjusted to maintain arterial CO2, between 35 and 40. She received Keppra loading intravenously and Nimotop through the nasogastric tube. Usual ICU monitoring was in place and arrangements were made, a ventriculostomy was placed, and transported expeditiously to interventional radiology where attempts will be made to coil the aneurysm. 04/12: Culprit (larger) aneurysm was coiled last evening. ICP acceptable with drainage bloody as expected. Withdraws 4 limbs to pain. 04/13: ICP starting to rise > 20, requiring vent manipulation, increased sedation, analgesia. 04/14: Intermittently ICP spiking >20, RR increased to 18, 50 mg of rocuronium 1. CT angiogram done today to rule out vasospasm 04/15: Remains heavily sedated for ICP control. Overall ICP control improved overnight-remained 12-14. Currently on propofol fentanyl and Versed. CT angiogram done yesterday 04/14/16 showed status post endovascular repair of left supraclinoid aneurysm, left M1 segment aneurysm stable no vasospasm. 04/16: Remains hypoxemic, FiO2 had to be increased to 70%, now down to 60%. Chest x-ray shows increasing right lower lobe infiltrate sputum with gram- negative rods. Blood pressure remains at target 04/17: ICP remains elevated at 22-25. Became hypothermic overnight, likely related to worsening sepsis. Repeat panculture ordered, and vancomycin 04/18: Labile hypertension. Start patient limits expanded to 150-190 systolic. Became more hypoxic now on 90% FiO2. Chest x-ray shows slight increase in right lower lobe infiltrate. Sodium at target 04/19: Remains critically ill with intermittent ICP elevation. ABG shows respiratory alkalosis, minute ventilation reduce which caused ICP to increase further. 3% saline restarted and 23% saline 1 bolus ordered. Chest x-ray shows slight improvement in the right lower lung infiltrate 04/20: ICP elevated to 31, 23% bolus given with improvement to 12-15. Low-grade fever with increase in white count to 16.4. Will send panculture. CTA brain in am 04/21: Remains critically ill with intermittent ICP elevation. ICP controlled with 23% bolus. Keeping sodium 150-160. CT head, CTA 04/22/1604/22: CT of the head shows evolving left frontoparietal hemorrhage with increasing midline shift 1.5 cm left to right. Intermittent ICP elevation was responsive to 23% saline. D/W Neurosurgery. 04/23: Intubated and ICP elevation up to 27, optimized on medical therapy and hyperosmolar therapy. Prognosis very poor according to neurosurgery. Per Dr. Ruiz, patient has suffered significant dominant hemisphere frontal temporal lobe hemorrhage and and consequent cerebral injury which reduces likelihood of functional recovery. Palliative care consulted-will meet with family today 04/24: Overnight high ICP elevations up to 40s. Currently 17-20. Family meeting with palliative care. Optimized on hyperosmolar therapy. Ct head per Dr. Meléndez- large frontal hemorrhage with mass effect, persistent midline shift 04/25: ICP remains high despite maximum hyperosmolar therapy. Family requests aggressive care. Dr. Meléndez is planning for left decompressive craniectomy Objective - Vital Signs Date Time Temp Pulse Resp B/P Pulse Ox O2 Delivery O2 Flow Rate FiO2 04/25/16 16:00 95 04/25/16 16:00 40 04/25/16 16:00 100.1 15 147/76 100 Intake and Output 04/24/16 04/24/16 04/24/16 07:59 15:59 23:59 Intake Total 1130 ml 2124 ml 1988 ml Output Total 1210 ml 1600 ml 1715 ml Balance -80 ml 524 ml 273 ml Result Diagram: 04/24/16 0300 04/25/16 1505 Other Results Laboratory Tests Test 04/11/16 04/11/16 04/12/16 13:06 20:44 05:58 Blood Gas Puncture Site ART LINE ART LINE ART LINE Blood Gas Patient Temperature 98.6 98.6 98.6 Blood Gas HCO3 20 mmol/L 21 mmol/L 19 mmol/L (22-26) (22-26) (22-26) Blood Gas Base Excess -4.2 mmol/L -3.1 mmol/L -4.9 mmol/L (-2-2) (-2-2) (-2-2) Blood Gas Oxygen Saturation 98 % (90-100) 98 % (90-100) 97 % (90-100) Arterial Blood pH 7.40 7.42 7.42 (7.380-7.420) (7.380-7.420) (7.380-7.420) Arterial Blood Partial 33 mmHg (38-42) 33 mmHg (38-42) 30 mmHg (38-42) Pressure CO2 Arterial Blood Partial 372 mmHg 450 mmHg 135 mmHg Pressure O2 (61-120) (61-120) (61-120) Arterial Blood Oxygen Content 11.0 Vol % 10.2 Vol % 15.4 Vol % (12.0-20.0) (12.0-20.0) (12.0-20.0) Arterial Blood 1.5 % (0-4) 1.4 % (0-4) 1.3 % (0-4) Carboxyhemoglobin Arterial Blood Methemoglobin 1.2 % (0-2) 1.2 % (0-2) 1.1 % (0-2) Blood Gas Hemoglobin 7.3 G/DL 6.5 G/DL 11.2 G/DL (12.0-16.0) (12.0-16.0) (12.0-16.0) Oxygen Delivery Device VENT VENTILATOR VENTILATOR Blood Gas Ventilator Setting PRVC/20RATE/500/5PEE PRVC/AC PRVC/AC Blood Gas Inspired Oxygen 100 % 100 % 40 % Objective Remarks Infusions Propofol Fentanyl Versed Nimbex-DCd 04/21 GEN: Middle-aged female who is intubated heavily sedated, critically ill HEENT: Head: Atraumatic. EVD in place, 65 ml in 24 hours. Pupils 2mm nonreactive. Tongue swollen and protuberant NECK: Supple. No resistance to motion. Orally intubated. LUNGS: Clear, no wheezes or crackles. HEART: Normal S1-S2, tachycardia, no murmur or rub, neck veins are distended. ABDOMEN: Soft, nontender, nondistended, no guarding, bowel sounds present. EXTREMITIES: Warm, well-perfused, foot and wrist pulses intact. NEUROLOGIC: Pupils 2 mm nonreactive, positive corneal. No withdrawal to pain. ICP 15-35 EVD draining bloody CSF A/P Assessment and Plan Acute subarachnoid hemorrhage, left middle cerebral artery aneurysm Large left frontal hemorrhage Intracranial hypertension Acute respiratory failure on mechanical ventilation RLL pneumonia/E Coli in sputum Sepsis Acute encephalopathy Malignant hypertension Status post coiling of MCA aneurysm Hypokalemia History of hypertension Lactic acidosis PLAN: NEURO: Acute subarachnoid hemorrhage, left middle cerebral artery aneurysm Intracranial hypertension, uncontrolled Acute encephalopathy CT of the head shows evolving left frontoparietal hemorrhage with increasing midline shift 1.5 cm left to right. CT of the head repeated today shows probable developing infarct. Patient has suffered significant dominant hemisphere frontal temporal lobe hemorrhage and consequent cerebral injury which reduces likelihood of functional recovery. Family request aggressive care and Dr. Meléndez is planning to perform left decompressive hemicraniectomy to the left 04/25/16 Palliative care following Sedation/analgesia (Propofol, Versed and Fentanyl) to help control ICP. Mild hypervolemia using CVP. Continue Ventricular drain. Keppra, Nimotop. Treat fever aggressively. Nimbex for ICP control-DCd 04/21/16 23% PRN for ICP >20. Keep Na 150-160 due to high ICP. Continue 3% gtt and continue NS gtt. CT angiogram done 04/14, 04/16/16, 04/22/16 showed status post endovascular repair of left supraclinoid aneurysm, left M1 segment aneurysm stable no vasospasm. Continue with hypervolemia and hypertension for vasospasm prevention. Target SBP 180 for vasospasm prophylaxis. CV: Uncontrolled HTN, now permissive Target SBP 150-190 for vasospasm prophylaxis. Maintain preload, follow CVP, for hypervolemia. Use Levophed/Cardene PRN Continue Nimotop RESP: Acute respiratory failure HCAP PC/AC vent mode, adjust vent rate to keep EtCO2 28-33. Nebs prn and scheduled. Vent bundle. No vent weaning due to high ICP, severe encephalopathy Tracheostomy once ICP adequately controlled and cleared by N/S : Rebollar required for hourly output. Keep UO more than 30 mL per hour GI: Tube feeds to goal as tolerated, continue bowel regimen Lactulose to 30 ml q8. Dulcolax suppository PRN, Having BM HEME: Serial Hgb. Monitor CBC ID: Severe sepsis HCAP with E Coli, Haemophilus Sputum cx EC andrea, haemophilus and blood cultures neg to date. On Zosyn 4.5 GM IV q6 04/15/16. Levaquin was added 04/16/16 to cover for Stenotrophomonas -DCd 04/19, restarted again 04/20/16 Repeat panculture with blood urine and sputum cultures 04/17/16 negative to date CXR bilateral infiltrates, with leukocytosis and brown sputum Resend cultures due to low grade fever and increased WBC 04/20 -NEG to date ENDO: SSI for euglycemia, avoid hypokalemia, hypo Mag PX: SCDs. Protonix. Cleared by to use Lovenox for chemical DVT prophylaxis on 04/19/16 Overall impression: Severe SAH and left parenchymal bleed and ruptured aneurysm, with cerebral edema , elevated ICP. Now intractable ICP elevation, plan for left decompressive hemicraniectomy today. HCAP and severe sepsis. CT of the head shows new left frontoparietal hemorrhage. Remains critically ill and prognosis guarded at best. Prognosis poor with L frontal hemorrhage- palliative care following Critical care 45 mins, d/w MATT BRUSH, bedside RN Mary Enamorado MD Apr 25, 2016 17:16
[2016-04-25] MEDS: LEVOFLOXACIN 750 MG PREMIX INJ 150 ML IV SCH (17:39)
[2016-04-25 20:55] LABS: BICARBONATE 20.6 MEQ/L (21.0-32.0); POTASSIUM 3.2 MEQ/L (3.5-5.1)
[2016-04-25] MEDS ORDERED: GENTAMICIN SULFATE 80 MG/2 ML VIAL ONE (20:55)
[2016-04-25] MEDS ORDERED: THROMBIN (TOPICAL) 5,000 UNIT VIAL ONE ×2 (20:55→23:02)
[2016-04-25] MEDS ORDERED: GELFOAM SIZE 100 ONE (20:55)
[2016-04-25] MEDS ORDERED: ceFAZolin INJ 1,000 MG VIAL ONE (20:55)
[2016-04-25] MEDS ORDERED: LIDOCAINE 1%/EPINEPHrine 1:100,000 SOLN 30 ML VIAL ONE (20:57)
[2016-04-25] MEDS ORDERED: VANCOMYCIN HCL 1000 MG VIAL ONE (20:57)
[2016-04-25 21:30] LABS: APTT (PATIENT) 31.9 SEC (22.6-28.8); INTERNATIONAL NORMALIZED RATIO 1.1 RATIO; PROTHROMBIN TIME - PATIENT 11.2 SEC (9.8-11.4)
[2016-04-25] MEDS: POTASSIUM CHLOR 20 MEQ PREMIX 100 ML IV PRN (22:08)
[2016-04-25] MEDS ORDERED: GELFOAM SIZE 100 OTHER ONE (23:02)
[2016-04-25 23:05] LABS: BLOOD GAS CARBOXYHEMOGLOBIN 1.1 % (0-4); BLOOD GAS HCO3 19 mmol/L (22-26); BLOOD GAS METHEMOGLOBIN 1.2 % (0-2); BLOOD GAS O2 HGB SATURATION 97 % (90-100); BLOOD GAS OXYGEN CONTENT 17.2 Vol % (12.0-20.0); BLOOD GAS PCO2 29 mmHg (38-42); BLOOD GAS PO2 337 mmHg (61-120); TEMP CORR TO 98.6
[2016-04-25 23:06] LABS: CRITICAL VALUE NO
[2016-04-25 23:07] LABS: DRAW SITE O.R. GAS; FIO2 100 %; OXYGEN DEVICE O.R. GAS; STAT YES
[2016-04-25 23:19] LABS: HEMATOCRIT 27.6 % (35.0-46.0); REVIEW FLAG FINAL
[2016-04-26] VITALS (20 sets, daily range): BP systolic 151–184; BP diastolic 75–103; PULSE 70–96; RESP 12–14; TEMP 98.8–99.6; O2SAT 99–100
--- NOTE | 2016-04-26 00:15 | PD.OP ---
Operative Report Date of Surgery: Apr 26, 2016 Preoperative Diagnosis: (1) Cerebral aneurysm rupture Postoperative Diagnosis: (1) Cerebral aneurysm rupture Procedure: Left frontotemporal parietal decompressive craniotomy, evacuation temporal hematoma Anesthesia: Gen. endotracheal Surgeon: Sherwin Meléndez Gis Consultant(s): Mika Walker Operation and Findings: Indications: A 46-year-old female presented with subarachnoid and intracranial hemorrhage primarily left frontotemporal region with evidence of posterior communicating and MCA aneurysm on initial CT angiogram. Patient has undergone initial coiling of the aneurysm. A ventriculostomy has been placed. ICPs have been slowly increasing and becoming more difficult to control with medical and ventilatory measures. Findings have been discussed with the patient's family. On 04/25/16, the patient's family indicated they wished to continue aggressive treatment including further surgical intervention if necessary, despite being advised regarding the overall poor prognosis, however the patient's daughter expressed some reluctance to proceed with surgery, and did not agree to consent for surgery until 04/26/2016. ICPs have been primarily in the mid 20s on 2015. Follow-up CT scan reveals increasing midline shift, and based on the patient's family requests to proceed with all possible treatments including surgery, it has been elected to take the patient to surgery for decompressive left craniotomy. The procedure, risks, possible complications and fully discussed with the family prior to surgery and all questions answered. Procedure in detail: The patient was brought into the operating room and general endotracheal anesthesia induced without difficulty. The Rebollar catheter, and sequential compression devices were in place. The lines were established per anesthesia. The patient was placed in semilateral position on the 3080 table with the head on the horseshoe headrest. All extremities were appropriately padded Appropriate timeout procedure was performed with all personnel present and in agreement The left side of the head was shaved with the clippers and sterilely prepped and draped 1% Xylocaine was used for local infiltration over the incision site which was made over the left frontotemporal parietal area in a curvilinear fashion and carried sharply down to the cranium through the temporalis muscle and fascia. The scalp and temporalis muscle flap were elevated in a single layer with the periosteal elevator and retracted r over a laparotomy sponge with the large scalp hooks. The dry clipper tender was used to place a single bur hole in the posterior left frontoparietal region and the craniotome was used since to incise the bone flap. The dura was moderately tense upon removal of the bone flap. The dura was opened in a cruciate fashion The bipolar forceps were used to open the parenchyma overlying the intracranial hemorrhage at the left temporal region A moderate amount of subacute hematoma was evacuated with gentle suction and irrigation until clear. The bipolar forceps were used to control any bleeding at the operative site. There was still evidence of surrounding edema and the brain was bulging slightly beyond the edge dura at the the craniotomy site. It was elected to leave the bone flap out and the dura opened to allow for cerebral edema. A 7 mm flat fluted drain [address] in the subdural space The drains were brought out through incisions in the posterior parietal region and secured to the skin with nylon suture The closure was performed with 2-0 Vicryl for the temporalis muscle fascia and galeal closure and yaneth for the skin closure. A dressing of sterile Telfa, 4 x 4's, and a loose head stockinette was applied. The patient was taken to recovery room in stable condition All counts were correct at the end of the case. Estimated blood loss was 150 cc No specimen was sent to pathology Sherwin Meléndez MD Apr 26, 2016 00:15
[2016-04-26] MEDS: niMODipine 30 MG CAP PO SCH ×7 (00:48→23:32)
[2016-04-26] MEDS: PROPOFOL 1000 MG/100 ML IV SCH ×6 (00:48→20:38)
[2016-04-26] MEDS: METOPROLOL TARTRATE 25 MG TAB PO SCH ×4 (00:48→20:37)
[2016-04-26] MEDS ORDERED: fentaNYL CITRATE 250 MCG/5 ML AMP ONE (01:41)
[2016-04-26] MEDS: POTASSIUM CHLOR 20 MEQ PREMIX 100 ML IV PRN (02:09)
[2016-04-26] MEDS: VANCOMYCIN INJ 1,500 MG in SODIUM CHLORID 0.9% 500 ML INJ 500 ML IV SCH ×2 (02:09→13:09)
[2016-04-26] MEDS: PIPERACIL-TAZO 4.5 GM PREMIX 100 ML IV SCH ×4 (02:10→20:37)
[2016-04-26] MEDS ORDERED: SODIUM CHLOR 0.9% 250 ML INJ 250 ML ONE (02:48)
[2016-04-26] MEDS: CHLORHEXIDINE GLUCONATE 2 % 1 PACK (2 CLOTHS) TOP SCH ×2 (04:00→21:36)
[2016-04-26] MEDS: niCARdipine INJ 25 MG in SODIUM CHLOR 0.9% 250 ML INJ 250 ML IV SCH ×2 (04:28→06:50)
[2016-04-26 04:48] LABS: AUTOMATED NEUTROPHIL # 14.3 TH/MM3 (1.8-7.7); BASOPHIL % 0.1 % (0.0-2.0); EOSINOPHIL # 0.5 TH/MM3 (0-0.4); EOSINOPHIL % 2.8 % (0.0-4.0); LYMPH % 5.9 % (9.0-44.0); MEAN CELL VOLUME 77.1 FL (80.0-100.0); MEAN CORPUSCULAR HEMOGLOBIN 24.3 PG (27.0-34.0); MEAN CORPUSCULAR HGB CONC 31.5 % (32.0-36.0); MONO % 4.5 % (0.0-8.0); NEUT % 86.7 % (16.0-70.0); PLATELET COUNT 246 TH/MM3 (150-450); RED CELL DISTRIBUTION WIDTH 26.7 % (11.6-17.2); WHITE BLOOD COUNT 16.5 TH/MM3 (4.0-11.0)
[2016-04-26 04:49] LABS: HEMO FLAGS AUTO DIFF
[2016-04-26 05:10] LABS: ALKALINE PHOSPHATASE 102 U/L (45-117); ALT (GPT) 35 U/L (10-53); ANION GAP 11 MEQ/L (5-15); AST (GOT) 41 U/L (15-37); BICARBONATE 21.1 MEQ/L (21.0-32.0); BLOOD UREA NITROGEN 8 MG/DL (7-18); CHLORIDE 119 MEQ/L (98-107); GLOMERULAR FILTRATION RATE 156 ML/MIN (>89); MAGNESIUM 1.6 MG/DL (1.5-2.5); POTASSIUM 3.9 MEQ/L (3.5-5.1); SODIUM (NA) 151 MEQ/L (136-145); TOTAL BILIRUBIN ADULT 0.6 MG/DL (0.2-1.0)
[2016-04-26] MEDS: METOCLOPRAMIDE HCL 10 MG/2 ML VIAL IV PUSH SCH ×3 (05:27→22:34)
--- NOTE | 2016-04-26 05:44 | RADRPT ---
EXAM DATE/TIME: 04/26/2016 04:33 [facility] COMPARISON: CHEST SINGLE AP, April 24, 2016, 5:13. INDICATIONS : Respiratory status. MEDICAL HISTORY : None. SURGICAL HISTORY : None. ENCOUNTER: Subsequent ACUITY: 3 days PAIN SCORE: Non-responsive. LOCATION: Bilateral chest FINDINGS: ET tube, NG tube and left subclavian line are in good position. The cardiac silhouette is enlarged. T here is increased density at the bases with silhouette hemidiaphragms bilaterally. CONCLUSION: 1. Cardiomegaly. 2. Bibasilar areas of consolidation and/or atelectasis and possible effusions. Fei Lea MD on April 26, 2016 at 5:41 Board Certified Radiologist. This report was verified electronically.
[2016-04-26] MEDS: MIDAZOLAM 100 MG/ML INJ 100 ML IV SCH ×2 (06:50→10:50)
[2016-04-26] MEDS: fentaNYL DRIP 250 ML IV SCH ×2 (06:50→10:51)
[2016-04-26] MEDS: SODIUM CHLORIDE 0.9% FLUSH 5 ML FLUSH IVF SCH ×2 (08:31→20:38)
[2016-04-26] MEDS: levETIRAcetam 500 MG/NS 100 ML IV SCH ×4 (08:31→20:37)
[2016-04-26] MEDS: PANTOPRAZOLE SODIUM 40 MG VIAL IV SCH (08:31)
[2016-04-26] MEDS: LACTULOSE SYRUP 20 GM/30 ML CUP PO SCH (08:31)
[2016-04-26 08:50] LABS: KERATOCYTES OCC (NORMAL)
[2016-04-26 08:51] LABS: OVALOCYTES 1+ (NORMAL); SCAN/DIFF AUTO DIFF CONFIRMED
--- NOTE | 2016-04-26 10:27 | HHI.GIFU ---
Subjective Remarks Sedated on vent. Had surgery with Dr. Meléndez last night. Daughter wanting aggressive measures per patient. (Maddie Diaz) Objective Vitals I&O Vital Signs Date Time Temp Pulse Resp B/P Pulse Ox O2 Delivery O2 Flow Rate FiO2 04/26/16 10:00 84 04/26/16 08:25 100 40 04/26/16 08:00 98.8 88 14 164/85 100 04/26/16 08:00 40 04/26/16 08:00 87 04/26/16 06:00 87 04/26/16 06:00 87 167/87 04/26/16 04:00 40 04/26/16 04:00 99.1 83 14 151/77 100 04/26/16 04:00 83 04/26/16 03:45 100 40 04/26/16 02:00 70 04/26/16 00:58 100 40 04/26/16 00:00 90 04/26/16 00:00 99.2 90 12 184/103 100 04/26/16 00:00 40 04/25/16 20:41 100 40 04/25/16 20:39 100 40 04/25/16 20:00 98.7 90 12 143/74 100 04/25/16 20:00 40 04/25/16 20:00 90 04/25/16 18:00 69 04/25/16 18:00 66 160/78 04/25/16 17:29 100 40 04/25/16 16:00 95 04/25/16 16:00 40 04/25/16 16:00 100.1 95 15 147/76 100 04/25/16 14:00 83 04/25/16 13:10 100 40 04/25/16 12:00 99.6 78 15 181/85 99 04/25/16 12:00 78 04/25/16 12:00 40 04/25/16 10:27 100 40 I/O 04/25/16 04/25/16 04/25/16 04/26/16 04/26/16 04/26/16 07:00 15:00 23:00 07:00 15:00 23:00 Intake Total 2883 ml 2191 ml 1440 ml 1666 ml Output Total 3004 ml 2915 ml 1203 ml 1829 ml Balance -121 ml -724 ml 237 ml -163 ml Intake Oral 0 ml IV Total 2863 ml 2131 ml 1440 ml 1666 ml Tube Feeding 0 ml 0 ml 0 ml Tube Irrigant 20 ml Other 60 ml Output Urine Total 2850 ml 2500 ml 1000 ml 1500 ml Stool Total 100 ml 200 ml 150 ml 200 ml Gastric Drainage Total 150 ml Drainage Total 54 ml 65 ml 53 ml 129 ml Laboratory Laboratory Tests Test 04/25/16 04/25/16 04/25/16 04/25/16 11:00 15:05 18:30 20:44 Sodium Level 153 154 159 155 Serum Osmolality 310 324 Potassium Level 3.2 Chloride Level 131 Carbon Dioxide Level 20.6 Anion Gap 7 Blood Urea Nitrogen 8 Creatinine 0.53 Estimat Glomerular Filtration 149 Rate Random Glucose 88 Calcium Level 8.2 Prothrombin Time 11.2 Prothromb Time International 1.1 Ratio Activated Partial 31.9 Thromboplast Time Test 04/25/16 04/25/16 04/25/16 04/26/16 22:50 22:51 23:09 04:32 Blood Gas Puncture Site O.R. GAS Blood Gas Patient Temperature 98.6 Blood Gas HCO3 19 Blood Gas Base Excess -5.0 Blood Gas Oxygen Saturation 97 Arterial Blood pH 7.42 Arterial Blood Partial 29 Pressure CO2 Arterial Blood Partial 337 Pressure O2 Arterial Blood Oxygen Content 17.2 Arterial Blood 1.1 Carboxyhemoglobin Arterial Blood Methemoglobin 1.2 Blood Gas Hemoglobin 12.0 Oxygen Delivery Device O.R. GAS Blood Gas Inspired Oxygen 100 Blood Type O POSITIVE Antibody Screen NEGATIVE Crossmatch Leukocyte-Reduced Red Blood Cells Blood Bank Comment Hemoglobin 8.8 8.5 Hematocrit 27.6 27.0 White Blood Count 16.5 Red Blood Count 3.50 Mean Corpuscular Volume 77.1 Mean Corpuscular Hemoglobin 24.3 Mean Corpuscular Hemoglobin 31.5 Concent Red Cell Distribution Width 26.7 Platelet Count 246 Mean Platelet Volume 8.8 Neutrophils (%) (Auto) 86.7 Lymphocytes (%) (Auto) 5.9 Monocytes (%) (Auto) 4.5 Eosinophils (%) (Auto) 2.8 Basophils (%) (Auto) 0.1 Neutrophils # (Auto) 14.3 Lymphocytes # (Auto) 1.0 Monocytes # (Auto) 0.7 Eosinophils # (Auto) 0.5 Basophils # (Auto) 0.0 CBC Comment AUTO DIFF Differential Comment AUTO DIFF CONFIRMED Ovalocytes 1+ Keratocytes OCC Sodium Level 151 Potassium Level 3.9 Chloride Level 119 Carbon Dioxide Level 21.1 Anion Gap 11 Blood Urea Nitrogen 8 Creatinine 0.51 Estimat Glomerular Filtration 156 Rate Random Glucose 92 Serum Osmolality 310 Calcium Level 8.0 Magnesium Level 1.6 Total Bilirubin 0.6 Aspartate Amino Transf 41 (AST/SGOT) Alanine Aminotransferase 35 (ALT/SGPT) Alkaline Phosphatase 102 Total Protein 5.6 Albumin 1.4 Test 04/26/16 08:42 Urine Specific [place] 1.013 Urine Osmolality 558 Urine Random Sodium 235 Sodium Level 148 Serum Osmolality 300 Date/Time Procedure Status Source Growth 04/24/16 10:34 Stool Occult Blood ([facility]) - Final Complete Stool Stool HEMOCCULT NEGATIVE Imaging Last Impressions Chest X-Ray 04/26/16 0600 Signed Impressions: Service Date/Time: Tuesday, April 26, 2016 04:33 - CONCLUSION: 1. Cardiomegaly. 2. Bibasilar areas of consolidation and/or atelectasis and possible effusions. Fei Lea MD Abdomen/Pelvis CT 04/24/16 1416 Signed Impressions: Service Date/Time: March 14:39 - CONCLUSION: Mild small bowel ileus with scattered air-fluid levels. Bibasilar lung consolidation with associated small effusions. Significant soft tissue fluid accumulation with edematous changes throughout the abdominal wall. Nasogastric tube in good position. Saqib Garcia MD Head CT 04/24/16 0000 Signed Impressions: Service Date/Time: March 14:39 - CONCLUSION: Persistent significant mass effect associated with the large left frontal temporal hematoma. No significant change in [id number] midline shift. Decreased density in the right frontal lobe which may indicate vascular compromise due to mass effect and a developing infarct. Stable ventricular system following ventriculostomy placement. Saqib Garcia MD Head CTA 04/22/16 0600 Signed Impressions: Service Date/Time: Friday, April 22, 2016 09:26 - CONCLUSION: 1. The intracranial circulation remains patent. The exam demonstrates significantly more edema surrounding the patient's large area of intraparenchymal hemorrhage on the left. There is at least 1.3 cm of left to right falcine shift. This is significantly worse when compared to the previous examination. This appears to be the result of worsening edema around the patient's intraparenchymal hemorrhage. Eric Castellanos MD Neck CTA 04/11/16 1151 Signed Impressions: Service Date/Time: Monday, April 11, 2016 12:01 - CONCLUSION: Negative for hemodynamically significant carotid stenosis. Ricardo Castellanos MD FACR Cerebral Arteriogram 04/11/16 0000 Signed Impressions: Service Date/Time: Monday, April 11, 2016 14:18 - CONCLUSION: 1. 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 This is the aneurysm felt responsible for the intracranial hemorrhage. 2. Small 4 mm left M1 segment aneurysm. Attempts at embolizing this aneurysm were unsuccessful due to the broad based nature of the aneurysm. Endovascular repair of this aneurysm could not be performed. Kennedy Thibodeaux Jr., MD Physical Exam HEENT: Drsg to head d/i, ICP, tongue, angioedema CHEST: Resp. even/unlabored. OETT to vent. CARDIAC: RRR. ABDOMEN: Soft, nondistended, nontender; no hepatosplenomegaly; bowel sounds are present in all four quadrants. EXTREMITIES: Generalized edema. [employer]: Sedated on vent. (Maddie Diaz) Assessment and Plan Plan ASSESSMENT: - Dysphagia, Fen. 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 NSx following, S/P Left frontotemporal parietal decompressive craniotomy, evacuation temporal hematoma (04/25/16). GI has been consulted for PEG tube placement. The sports photographer is following and has recommended Jevity 1.5 @ 50 mls/hr. - Anemia. 8.5/27.0. No obvious bleeding. CT Scan pending. - Resp. Failure. On vent. GS consulted for tracheostomy PLAN: - Plan for EGD with peg next week when consents obtained - Obtain consents - PPI - Monitor HH - Transfuse as necessary - Supportive care - Further recommendations to follow based on results of above - Pt seen and examined by Dr. Broderick and myself and this note is written on her behalf (Maddie Diaz) Physician Comments Seen and examined, discussed with nurse. EGD/Peg thursday if consents obtained. ( DaviePopeye serrano Carly Melissa ARNP Apr 26, 2016 10:27 Popeye Broderick MD Apr 26, 2016 15:00
[2016-04-26] MEDS: NS + KCL 20 MEQ INJ 1,000 ML IV SCH (11:13)
--- NOTE | 2016-04-26 12:15 | HHI.NSPN ---
Note Status Status: Progress Note Interval History Interval History 46 y/o female with SAH, s/p coiling of ICA aneurysm. She has ventriculostomy drain in place. She underwent left decompressive craniectomy yesterday 04/[address] Meléndez due to elevated ICPs. Today, ICPs improved, currently 4. Labs, Micro, & Vital Signs Results Date Time Temp Pulse Resp B/P Pulse Ox O2 Delivery O2 Flow Rate FiO2 04/26/16 11:38 100 40 04/26/16 10:00 84 04/26/16 08:25 100 40 04/26/16 08:00 98.8 88 14 164/85 100 04/26/16 08:00 40 04/26/16 08:00 87 04/26/16 06:00 87 04/26/16 06:00 87 167/87 04/26/16 04:00 40 04/26/16 04:00 99.1 83 14 151/77 100 04/26/16 04:00 83 04/26/16 03:45 100 40 04/26/16 02:00 70 04/26/16 00:58 100 40 04/26/16 00:00 90 04/26/16 00:00 99.2 90 12 184/103 100 04/26/16 00:00 40 04/25/16 20:41 100 40 04/25/16 20:39 100 40 04/25/16 20:00 98.7 90 12 143/74 100 04/25/16 20:00 40 04/25/16 20:00 90 04/25/16 18:00 69 04/25/16 18:00 66 160/78 04/25/16 17:29 100 40 04/25/16 16:00 95 04/25/16 16:00 40 04/25/16 16:00 100.1 95 15 147/76 100 04/25/16 14:00 83 04/25/16 13:10 100 40 04/26/16 07:00 Intake Total 5297 ml Output Total 5947 ml Balance -650 ml Constitutional Vital Signs Date Time Temp Pulse Resp B/P Pulse Ox O2 Delivery O2 Flow Rate FiO2 04/26/16 11:38 100 40 04/26/16 10:00 84 04/26/16 08:25 100 40 04/26/16 08:00 98.8 88 14 164/85 100 04/26/16 08:00 40 04/26/16 08:00 87 04/26/16 06:00 87 04/26/16 06:00 87 167/87 04/26/16 04:00 40 04/26/16 04:00 99.1 83 14 151/77 100 04/26/16 04:00 83 04/26/16 03:45 100 40 04/26/16 02:00 70 04/26/16 00:58 100 40 04/26/16 00:00 90 04/26/16 00:00 99.2 90 12 184/103 100 04/26/16 00:00 40 04/25/16 20:41 100 40 04/25/16 20:39 100 40 04/25/16 20:00 98.7 90 12 143/74 100 04/25/16 20:00 40 04/25/16 20:00 90 04/25/16 18:00 69 04/25/16 18:00 66 160/78 04/25/16 17:29 100 40 04/25/16 16:00 95 04/25/16 16:00 40 04/25/16 16:00 100.1 95 15 147/76 100 04/25/16 14:00 83 04/25/16 13:10 100 40 04/26/16 07:00 Intake Total 5297 ml Output Total 5947 ml Balance -650 ml Review of Systems/Exam Exam Ms. Pride is intubated and sedated. EVD in place at 0 cmH20 draining well. ICPs = 4. Surgical wound with dressing in place CN: pupils 2 mm. No corneal b/l No withdrawals x 4 extremities Medications Current Medications Current Medications Medications (Trade) Dose Ordered Sig/Zhanna Route PRN Reason Start Time Stop Time Status Last Admin Dose Admin Potassium Chloride/Sodium Chloride (NS + KCl 20 Meq Inj) 1,000 ml @ 50 mls/hr Q20H IV 04/11/16 13:23 04/26/16 11:13 IV Flush (NS Flush) 2 ml UNSCH PRN IVF FLUSH AFTER USING IV ACCESS 04/11/16 13:30 IV Flush (NS Flush) 2 ml BID IVF 04/11/16 21:00 04/26/16 08:31 Acetaminophen (Tylenol) 650 mg Q6H PRN PO PAIN 1-10 AND/OR FEVER >101F 04/11/16 13:30 Pantoprazole Sodium (Protonix Inj) 40 mg DAILY IV 04/11/16 14:00 04/26/16 08:31 Lorazepam (Ativan Inj) 2 mg Q1H PRN IV Seizures 04/11/16 13:30 Ondansetron HCl (Zofran Inj) 4 mg Q6H PRN IV NAUSEA OR VOMITING 04/11/16 13:30 Miscellaneous Information 1 [id number] XX 04/11/16 13:30 Chlorhexidine Gluconate (Chlorhexidine 2% Cloth) Taper DAILY@04 TOP 04/12/16 04:00 04/08/17 03:59 04/26/16 04:00 Chlorhexidine Gluconate 3 pack 3 pack UNSCH PRN TOP HYGIENIC CARE 04/11/16 13:30 Potassium Chloride 100 ml @ 50 mls/hr Q2H PRN IV For Potassium 2.8 - 3.2 mEq/L 04/11/16 13:30 04/24/16 23:38 Potassium Chloride (KCl 20 Meq Premix Inj) 100 ml @ 50 mls/hr Q2H PRN IV For Potassium 2.8 - 3.2 mEq/L 04/11/16 13:30 04/26/16 02:09 Potassium Chloride 40 meq 40 meq UNSCH PRN PO/TUBE For Potassium 3.3 - 3.5 mEq/L 04/11/16 13:30 04/18/16 09:01 Potassium Chloride 100 ml @ 25 mls/hr UNSCH PRN IV For Potassium 3.3 - 3.5 mEq/L 04/11/16 13:30 04/25/16 08:41 Potassium Chloride 100 ml @ 50 mls/hr Q2H PRN IV For Potassium 3.3 - 3.5 mEq/L 04/11/16 13:30 04/24/16 12:45 Magnesium Sulfate/ Sodium Chloride (Magnesium Sulfate Inj/NS Inj) 100 ml @ 50 mls/hr UNSCH PRN IV For Magnesium 0.9 - 1.1 mg/dL 04/11/16 13:30 Magnesium Oxide 800 mg 800 mg UNSCH PRN PO For Magnesium 1.2 - 1.6 mg/dL 04/11/16 13:30 Magnesium Sulfate/ Sodium Chloride (Magnesium Sulfate Inj/NS Inj) 100 ml @ 50 mls/hr UNSCH PRN IV For Magnesium 1.2 - 1.6 mg/dL 04/11/16 13:30 04/23/16 09:49 Potassium Phosphate 2000 mg 2,000 mg Q4H PRN PO For Phosphorus < 2.5 mg/dL 04/11/16 13:30 Sodium Phosphate/ Sodium Chloride (Sodium Phosphate Inj/NS 250 ml Inj) 250 ml @ 42 mls/hr UNSCH PRN IV For Phosphorus < 2.5 mg/dL 04/11/16 13:30 04/14/16 06:47 Potassium Chloride (KCl 40 Meq/30 ml Liq) 40 meq UNSCH PRN PO/TUBE SEE LABEL COMMENTS 04/11/16 13:30 Potassium Phosphate 2000 mg 2,000 mg UNSCH PRN PO/TUBE SEE LABEL COMMENTS 04/11/16 13:30 Potassium Phosphate/Sodium Chloride (Potassium Phosphate Inj/NS 250 ml Inj) 260 ml @ 42 mls/hr UNSCH PRN IV SEE LABEL COMMENTS 04/11/16 13:30 Metoprolol Tartrate (Lopressor) 25 mg Q6H PO 04/11/16 14:00 04/26/16 08:31 Acetaminophen 650 mg 650 mg Q4H PRN PO Temp > 100. 04/11/16 16:30 04/24/16 11:59 Propofol (Diprivan 1000 Mg/100ml Inj) 100 ml @ 0 mls/hr TITRATE IV 04/11/16 20:30 04/26/16 10:23 Fentanyl Citrate 100 mcg 100 mcg Q30M PRN IV PUSH Pain 6-10 04/12/16 16:30 04/15/16 14:51 Fentanyl Citrate 250 ml @ 0 mls/hr TITRATE IV 04/12/16 16:30 04/26/16 10:51 Norepinephrine Bitartrate 4 mg/ Sodium Chloride 254 ml @ 0 mls/hr TITRATE IV 04/12/16 17:45 04/22/16 05:56 Midazolam HCl 100 ml @ 0 mls/hr TITRATE IV 04/13/16 13:00 04/26/16 10:50 Nicardipine HCl 25 mg/Sodium Chloride 260 ml @ 0 mls/hr TITRATE IV 04/14/16 17:45 04/26/16 06:50 Piperacillin Sod/ Tazobactam Sod 100 ml @ 200 mls/hr Q6H IV 04/15/16 09:00 04/26/16 08:31 Levofloxacin/ Dextrose 150 ml @ 100 mls/hr Q24H IV 04/16/16 18:00 04/25/16 17:39 Pharmacy Profile Note 0 ml @ 0 mls/hr UNSCH OTHER 04/17/16 12:45 Vancomycin HCl/ Sodium Chloride (Vancomycin Inj/ NS 500 ml Inj) 530 ml @ 250 mls/hr Q12H IV 04/17/16 14:00 04/26/16 02:09 Lactulose (Lactulose Liq) 30 ml DAILY PO 04/19/16 09:00 04/26/16 08:31 Enoxaparin Sodium (Lovenox Inj) 40 mg Q24H SQ 04/19/16 13:00 Hold 04/21/16 12:12 Nimodipine 30 mg 30 mg Q4HR PO 04/20/16 00:00 04/26/16 11:48 Sodium Chloride 240 meq/Syringe / Bag 60 ml @ 120 mls/hr Q6H PRN IV ICP >20 04/20/16 08:15 04/25/16 18:12 Sodium Chloride 500 ml @ 30 mls/hr [id number] IV 04/20/16 15:30 Hold 04/23/16 08:56 Levetriacetam/ Sodium Chloride (Keppra Inj/NS Inj) 105 ml @ 420 mls/hr Q12HR IV 04/23/16 21:00 04/26/16 08:31 Metoclopramide HCl (Reglan Inj) 10 mg Q8HR IV PUSH 04/24/16 22:00 04/26/16 05:27 Labetalol HCl (Trandate Inj) 20 mg Q4H PRN IVS SEE LABEL COMMENTS 04/25/16 00:30 Medical Decision Making MDM Remarks 46 y/o female with SAH from ruptured ICA aneurysm s/p coiling left MCA aneurysm s/p decompressive craniectomy due to sustained elevated intracranial pressure with improved ICPs following decompression Plan Plan Remarks cont EVD draining with ICP monitoring cont serial neuro checks cont Nimodipine cont critical care mgt Rosa Maria [place] Apr 26, 2016 12:15
--- NOTE | 2016-04-26 12:56 | HHI.CCPN ---
Subjective Remarks/Hospital Course SAH, unresponsive, malignant hypertension - This 46-year-old woman with a longstanding history of hypertension, was found unresponsive at her home and paramedics arrived to find her with shallow breathing and a Angelica coma scale of three. Systolic blood pressure was 290 and under bag mask ventilation. She was brought to the emergency department where she remained unresponsive and required endotracheal intubation, mechanical ventilation. A CT scan of the head showed a large left hemispheric intraparenchymal hemorrhage with subarachnoid blood as well. Subsequent evaluation confirmed a left middle cerebral artery aneurysm which appears to be the culprit lesion. She was brought immediately to the [facility] where we continued Cardene drip infusion for blood pressure control and placed arterial monitoring lines and central venous line. Electrolyte abnormalities were corrected, particularly severe hypokalemia. The ventilator was adjusted to maintain arterial CO2, between 35 and 40. She received Keppra loading intravenously and Nimotop through the nasogastric tube. Usual ICU monitoring was in place and arrangements were made, a ventriculostomy was placed, and transported expeditiously to interventional radiology where attempts will be made to coil the aneurysm. 04/12: Culprit (larger) aneurysm was coiled last evening. ICP acceptable with drainage bloody as expected. Withdraws 4 limbs to pain. 04/13: ICP starting to rise > 20, requiring vent manipulation, increased sedation, analgesia. 04/14: Intermittently ICP spiking >20, RR increased to 18, 50 mg of rocuronium 1. CT angiogram done today to rule out vasospasm 04/15: Remains heavily sedated for ICP control. Overall ICP control improved overnight-remained 12-14. Currently on propofol fentanyl and Versed. CT angiogram done yesterday 04/14/16 showed status post endovascular repair of left supraclinoid aneurysm, left M1 segment aneurysm stable no vasospasm. 04/16: Remains hypoxemic, FiO2 had to be increased to 70%, now down to 60%. Chest x-ray shows increasing right lower lobe infiltrate sputum with gram- negative rods. Blood pressure remains at target 04/17: ICP remains elevated at 22-25. Became hypothermic overnight, likely related to worsening sepsis. Repeat panculture ordered, and vancomycin 04/18: Labile hypertension. Start patient limits expanded to 150-190 systolic. Became more hypoxic now on 90% FiO2. Chest x-ray shows slight increase in right lower lobe infiltrate. Sodium at target 04/19: Remains critically ill with intermittent ICP elevation. ABG shows respiratory alkalosis, minute ventilation reduce which caused ICP to increase further. 3% saline restarted and 23% saline 1 bolus ordered. Chest x-ray shows slight improvement in the right lower lung infiltrate 04/20: ICP elevated to 31, 23% bolus given with improvement to 12-15. Low-grade fever with increase in white count to 16.4. Will send panculture. CTA brain in am 04/21: Remains critically ill with intermittent ICP elevation. ICP controlled with 23% bolus. Keeping sodium 150-160. CT head, CTA 04/22/1604/22: CT of the head shows evolving left frontoparietal hemorrhage with increasing midline shift 1.5 cm left to right. Intermittent ICP elevation was responsive to 23% saline. D/W Neurosurgery. 04/23: Intubated and ICP elevation up to 27, optimized on medical therapy and hyperosmolar therapy. Prognosis very poor according to neurosurgery. Per Dr. Ruiz, patient has suffered significant dominant hemisphere frontal temporal lobe hemorrhage and and consequent cerebral injury which reduces likelihood of functional recovery. Palliative care consulted-will meet with family today 04/24: Overnight high ICP elevations up to 40s. Currently 17-20. Family meeting with palliative care. Optimized on hyperosmolar therapy. Ct head per Dr. Meléndez- large frontal hemorrhage with mass effect, persistent midline shift 04/25: ICP remains high despite maximum hyperosmolar therapy. Family requests aggressive care. Dr. Meléndez is planning for left decompressive craniectomy 04/26: Patient is s/p Left frontotemporal parietal decompressive craniotomy and evacuation of temporal hematoma. ICP better controlled 04-09, remains heavily sedated Objective - Vital Signs Date Time Temp Pulse Resp B/P Pulse Ox O2 Delivery O2 Flow Rate FiO2 04/26/16 12:00 98.8 84 14 170/81 100 04/26/16 12:00 40 Intake and Output 04/25/16 04/25/16 04/26/16 08:00 16:00 00:00 Intake Total 2883 ml 2191 ml 1440 ml Output Total 3004 ml 2915 ml 1203 ml Balance -121 ml -724 ml 237 ml Result Diagram: 04/26/16 0432 04/26/16 1035 Other Results Laboratory Tests Test 04/11/16 04/11/16 04/12/16 13:06 20:44 05:58 Blood Gas Puncture Site ART LINE ART LINE ART LINE Blood Gas Patient Temperature 98.6 98.6 98.6 Blood Gas HCO3 20 mmol/L 21 mmol/L 19 mmol/L (22-26) (22-26) (22-26) Blood Gas Base Excess -4.2 mmol/L -3.1 mmol/L -4.9 mmol/L (-2-2) (-2-2) (-2-2) Blood Gas Oxygen Saturation 98 % (90-100) 98 % (90-100) 97 % (90-100) Arterial Blood pH 7.40 7.42 7.42 (7.380-7.420) (7.380-7.420) (7.380-7.420) Arterial Blood Partial 33 mmHg (38-42) 33 mmHg (38-42) 30 mmHg (38-42) Pressure CO2 Arterial Blood Partial 372 mmHg 450 mmHg 135 mmHg Pressure O2 (61-120) (61-120) (61-120) Arterial Blood Oxygen Content 11.0 Vol % 10.2 Vol % 15.4 Vol % (12.0-20.0) (12.0-20.0) (12.0-20.0) Arterial Blood 1.5 % (0-4) 1.4 % (0-4) 1.3 % (0-4) Carboxyhemoglobin Arterial Blood Methemoglobin 1.2 % (0-2) 1.2 % (0-2) 1.1 % (0-2) Blood Gas Hemoglobin 7.3 G/DL 6.5 G/DL 11.2 G/DL (12.0-16.0) (12.0-16.0) (12.0-16.0) Oxygen Delivery Device VENT VENTILATOR VENTILATOR Blood Gas Ventilator Setting PRVC/20RATE/500/5PEE PRVC/AC PRVC/AC Blood Gas Inspired Oxygen 100 % 100 % 40 % Objective Remarks Infusions Propofol Fentanyl Versed Nimbex-DCd 04/21 GEN: Middle-aged female who is intubated heavily sedated, critically ill. Circumferential craniotomy dressing in place HEENT: Head: Atraumatic. EVD in place, 65 ml in 24 hours. Pupils 2mm nonreactive. Tongue swollen and protuberant NECK: Supple. No resistance to motion. Orally intubated. LUNGS: Clear, no wheezes or crackles. HEART: Normal S1-S2, tachycardia, no murmur or rub, neck veins are distended. ABDOMEN: Soft, nontender, nondistended, no guarding, bowel sounds present. EXTREMITIES: Warm, well-perfused, foot and wrist pulses intact. NEUROLOGIC: Pupils 2 mm nonreactive, positive corneal. No withdrawal to pain. ICP 8-10 EVD 192 ml in 24 hours A/P Assessment and Plan Acute subarachnoid hemorrhage, left middle cerebral artery aneurysm Large left frontal hemorrhage Intracranial hypertension Acute respiratory failure on mechanical ventilation RLL pneumonia/E Coli in sputum Sepsis Acute encephalopathy Malignant hypertension Status post coiling of MCA aneurysm Hypokalemia History of hypertension Lactic acidosis PLAN: NEURO: Acute subarachnoid hemorrhage, left middle cerebral artery aneurysm Intracranial hypertension, uncontrolled Acute encephalopathy CT of the head shows evolving left frontoparietal hemorrhage with increasing midline shift 1.5 cm left to right. CT of the head repeated today shows probable developing infarct. Patient has suffered significant dominant hemisphere frontal temporal lobe hemorrhage and consequent cerebral injury which reduces likelihood of functional recovery. Family request aggressive care and Dr. Meléndez performed left decompressive craniotomy 04/25/16 and evacuation of temporal hematoma Sedation/analgesia (Propofol, Versed and Fentanyl) to help control ICP. Mild hypervolemia using CVP. Continue Ventricular drain. Keppra, Nimotop. Treat fever aggressively. Nimbex for ICP control-DCd 04/21/16 23% PRN for ICP >20. Keep Na 150-160 due to high ICP. Continue 3% gtt and continue NS gtt. CT angiogram done 04/14, 04/16/16, 04/22/16 showed status post endovascular repair of left supraclinoid aneurysm, left M1 segment aneurysm stable no vasospasm. Continue with hypervolemia and hypertension for vasospasm prevention. Target SBP 180 for vasospasm prophylaxis. Palliative care following remains full code CV: Uncontrolled HTN, now permissive Target SBP 150-190 for vasospasm prophylaxis. Maintain preload, follow CVP, for hypervolemia. Use Levophed/Cardene PRN Continue Nimotop RESP: Acute respiratory failure HCAP PC/AC vent mode, adjust vent rate to keep EtCO2 28-33. Nebs prn and scheduled. Vent bundle. No vent weaning due to high ICP, severe encephalopathy Tracheostomy once ICP adequately controlled and cleared by N/S : Rebollar required for hourly output. Keep UO more than 30 mL per hour Increase urine output noted today but serum osmolality and urine osmolality not consistent with DI GI: Tube feeds held for surgery 04/25, resume and advanced to goal as tolerated, continue bowel regimen Lactulose to 30 ml q8. Dulcolax suppository PRN, Having BM HEME: Serial Hgb. Monitor CBC ID: Sepsis HCAP with E Coli, Haemophilus Sputum cx EC andrea, haemophilus and blood cultures neg to date. On Zosyn 4.5 GM IV q6 04/15/16. Levaquin was added 04/16/16 to cover for Stenotrophomonas -DCd 04/19, restarted again 04/20/16-DC today 04/26/16 Repeat panculture with blood urine and sputum cultures 04/17/16 negative to date CXR bilateral infiltrates, with leukocytosis and brown sputum Resend cultures due to low grade fever and increased WBC 04/20 -NEG to date ENDO: SSI for euglycemia, avoid hypokalemia, hypo Mag PX: SCDs. Protonix. Cleared by to use Lovenox for chemical DVT prophylaxis on 04/19/16 Overall impression: Severe SAH and left parenchymal bleed and ruptured aneurysm, with cerebral edema , elevated ICP. Now intractable ICP elevation, plan for left decompressive hemicraniectomy today. HCAP and severe sepsis. CT of the head shows new left frontoparietal hemorrhage. Remains critically ill and prognosis guarded at best. Prognosis poor with L frontal hemorrhage- , now with left decompressive craniotomy and evacuation of the bleed. palliative care following Critical care 45 mins, d/w Mary Martinez MD Apr 26, 2016 12:56
[2016-04-26] MEDS: LEVOFLOXACIN 750 MG PREMIX INJ 150 ML IV SCH (17:20)
[2016-04-26] MEDS: SODIUM CHLORIDE 23.4% INJ 240 MEQ in SYRINGE/BAG 1 EA IV PRN (18:58)
[2016-04-26 22:43] LABS: BLOOD GAS BASE EXCESS -5.6 mmol/L (-2-2); BLOOD GAS CARBOXYHEMOGLOBIN 1.6 % (0-4); BLOOD GAS HCO3 18 mmol/L (22-26); BLOOD GAS METHEMOGLOBIN 0.8 % (0-2); BLOOD GAS O2 HGB SATURATION 96 % (90-100); BLOOD GAS OXYGEN CONTENT 10.9 Vol % (12.0-20.0); BLOOD GAS PCO2 27 mmHg (38-42); BLOOD GAS PO2 123 mmHg (61-120); BLOOD GAS TOTAL HGB 7.9 G/DL (12.0-16.0); CRITICAL VALUE NO; OXYGEN DEVICE VENTILATOR; TEMP CORR TO 98.6
[2016-04-26 22:44] LABS: DRAW SITE ART LINE; FIO2 40 %; STAT NO; VENT SETTINGS PC/AC
[2016-04-27] VITALS (20 sets, daily range): BP systolic 169–192; BP diastolic 77–89; PULSE 79–99; RESP 14; TEMP 98.5–100; O2SAT 97–100
[2016-04-27 00:20] LABS: ALKALINE PHOSPHATASE 117 U/L (45-117); ALT (GPT) 34 U/L (10-53); ANION GAP 11 MEQ/L (5-15); AST (GOT) 44 U/L (15-37); BICARBONATE 22.4 MEQ/L (21.0-32.0); BLOOD UREA NITROGEN 7 MG/DL (7-18); CHLORIDE 116 MEQ/L (98-107); GLOMERULAR FILTRATION RATE 152 ML/MIN (>89); POTASSIUM 3.2 MEQ/L (3.5-5.1); SODIUM (NA) 149 MEQ/L (136-145); TOTAL BILIRUBIN ADULT 0.6 MG/DL (0.2-1.0)
[2016-04-27] MEDS: fentaNYL DRIP 250 ML IV SCH ×3 (00:47→20:20)
[2016-04-27] MEDS: MIDAZOLAM 100 MG/ML INJ 100 ML IV SCH ×3 (00:47→20:20)
[2016-04-27] MEDS: PROPOFOL 1000 MG/100 ML IV SCH ×7 (00:47→20:20)
[2016-04-27] MEDS ORDERED: SODIUM CHLORID 0.9% 500 ML INJ 500 ML IV ONE (02:08)
[2016-04-27] MEDS: PIPERACIL-TAZO 4.5 GM PREMIX 100 ML IV SCH ×4 (02:12→20:07)
[2016-04-27] MEDS: METOPROLOL TARTRATE 25 MG TAB PO SCH ×4 (02:12→20:07)
[2016-04-27] MEDS: SODIUM CHLORIDE 23.4% INJ 240 MEQ in SYRINGE/BAG 1 EA IV PRN (02:12)
[2016-04-27] MEDS: VANCOMYCIN INJ 1,500 MG in SODIUM CHLORID 0.9% 500 ML INJ 500 ML IV SCH ×2 (02:13→13:51)
[2016-04-27] MEDS: niMODipine 30 MG CAP PO SCH ×5 (03:53→20:07)
[2016-04-27] MEDS: POTASSIUM CHLOR 40 MEQ PREMIX 100 ML IV PRN ×2 (03:54→06:10)
[2016-04-27] MEDS: METOCLOPRAMIDE HCL 10 MG/2 ML VIAL IV PUSH SCH ×3 (05:05→21:49)
[2016-04-27 05:29] LABS: AUTOMATED NEUTROPHIL # 14.5 TH/MM3 (1.8-7.7); BASOPHIL # 0.1 TH/MM3 (0-0.2); BASOPHIL % 0.6 % (0.0-2.0); EOSINOPHIL # 0.9 TH/MM3 (0-0.4); EOSINOPHIL % 4.8 % (0.0-4.0); LYMPH % 8.6 % (9.0-44.0); LYMPHOCYTE # 1.6 TH/MM3 (1.0-4.8); MEAN CELL VOLUME 77.2 FL (80.0-100.0); MEAN CORPUSCULAR HEMOGLOBIN 24.9 PG (27.0-34.0); MEAN CORPUSCULAR HGB CONC 32.2 % (32.0-36.0); MONO % 5.8 % (0.0-8.0); NEUT % 80.2 % (16.0-70.0); PLATELET COUNT 291 TH/MM3 (150-450); RED CELL DISTRIBUTION WIDTH 26.4 % (11.6-17.2); WHITE BLOOD COUNT 18.1 TH/MM3 (4.0-11.0)
[2016-04-27 05:44] LABS: HEMO FLAGS AUTO DIFF
[2016-04-27] MEDS ORDERED: SODIUM CHLOR 0.9% 250 ML INJ 250 ML ONE (05:44)
[2016-04-27] MEDS: NS + KCL 20 MEQ INJ 1,000 ML IV SCH (05:50)
[2016-04-27] MEDS: niCARdipine INJ 25 MG in SODIUM CHLOR 0.9% 250 ML INJ 250 ML IV SCH (05:50)
--- NOTE | 2016-04-27 06:36 | RADRPT ---
EXAM DATE/TIME: 04/27/2016 05:32 [place] COMPARISON: CHEST SINGLE AP, April 26, 2016, 4:33. INDICATIONS : Respiratory disease. MEDICAL HISTORY : Hypertension. SURGICAL HISTORY : Tubal ligation. ENCOUNTER: Subsequent ACUITY: 2 weeks PAIN SCORE: Non-responsive. LOCATION: Bilateral chest FINDINGS: ET tube, NG tube and left subclavian line are well placed. The heart size is upper limits of normal. There is increased density at the bases bilaterally with silhouetting of the hemidiaphragms. CONCLUSION: Bibasilar areas of consolidation atelectasis and suspected effusions. Fei Lea MD on April 27, 2016 at 6:32 Board Certified Radiologist. This report was verified electronically.
[2016-04-27] MEDS: PANTOPRAZOLE SODIUM 40 MG VIAL IV SCH (08:00)
[2016-04-27] MEDS: levETIRAcetam 500 MG/NS 100 ML IV SCH ×4 (08:00→20:07)
[2016-04-27] MEDS: SODIUM CHLORIDE 0.9% FLUSH 5 ML FLUSH IVF SCH ×2 (08:00→20:08)
[2016-04-27] MEDS: LACTULOSE SYRUP 20 GM/30 ML CUP PO SCH (08:00)
[2016-04-27 08:43] LABS: OVALOCYTES 1+ (NORMAL); SCAN/DIFF AUTO DIFF CONFIRMED
--- NOTE | 2016-04-27 12:40 | HHI.NSPN ---
(Rosa Maria Ellington) Note Status Status: Progress Note (Rosa Maria Ellington) Interval History Interval History 46 y/o female with SAH, s/p coiling of ICA aneurysm. She has ventriculostomy drain in place. She underwent left decompressive craniectomy yesterday 04/[address] Meléndez due to elevated ICPs. Today, ICPs improved, currently 4. 04/27: intermittent spikes in ICPs overnight in low 20's controlled with hyperosmotic bolus. Currently 9. well sedated. (Rosa Maria Ellington) Labs, Micro, & Vital Signs Results Date Time Temp Pulse Resp B/P Pulse Ox O2 Delivery O2 Flow Rate FiO2 04/27/16 12:00 40 04/27/16 12:00 99.0 99 14 183/86 100 04/27/16 12:00 90 04/27/16 11:45 100 40 04/27/16 10:00 85 04/27/16 08:00 40 04/27/16 08:00 92 04/27/16 08:00 99.1 89 14 173/79 100 04/27/16 07:46 100 40 04/27/16 07:37 100 40 04/27/16 06:00 92 04/27/16 06:00 92 169/84 04/27/16 04:25 97 40 04/27/16 04:00 99.8 94 14 178/86 99 04/27/16 04:00 40 04/27/16 04:00 94 04/27/16 02:00 99 04/27/16 01:20 100 40 04/27/16 00:00 100.0 99 14 192/89 100 04/27/16 00:00 40 04/27/16 00:00 99 04/26/16 22:30 100 40 04/26/16 22:00 88 04/26/16 21:52 100 40 04/26/16 20:20 100 40 04/26/16 20:00 40 04/26/16 20:00 96 04/26/16 20:00 99.6 96 14 178/88 100 04/26/16 18:00 76 04/26/16 18:00 84 177/80 04/26/16 16:08 99 40 04/26/16 16:00 40 04/26/16 16:00 99.6 86 14 160/75 100 04/26/16 16:00 82 04/26/16 14:00 84 04/27/16 07:00 Intake Total 6406 ml Output Total 5943 ml Balance 463 ml Constitutional Vital Signs Date Time Temp Pulse Resp B/P Pulse Ox O2 Delivery O2 Flow Rate FiO2 04/27/16 12:00 40 04/27/16 12:00 99.0 99 14 183/86 100 04/27/16 12:00 90 04/27/16 11:45 100 40 04/27/16 10:00 85 04/27/16 08:00 40 04/27/16 08:00 92 04/27/16 08:00 99.1 89 14 173/79 100 04/27/16 07:46 100 40 04/27/16 07:37 100 40 04/27/16 06:00 92 04/27/16 06:00 92 169/84 04/27/16 04:25 97 40 04/27/16 04:00 99.8 94 14 178/86 99 04/27/16 04:00 40 04/27/16 04:00 94 04/27/16 02:00 99 04/27/16 01:20 100 40 04/27/16 00:00 100.0 99 14 192/89 100 04/27/16 00:00 40 04/27/16 00:00 99 04/26/16 22:30 100 40 04/26/16 22:00 88 04/26/16 21:52 100 40 04/26/16 20:20 100 40 04/26/16 20:00 40 04/26/16 20:00 96 04/26/16 20:00 99.6 96 14 178/88 100 04/26/16 18:00 76 04/26/16 18:00 84 177/80 04/26/16 16:08 99 40 04/26/16 16:00 40 04/26/16 16:00 99.6 86 14 160/75 100 04/26/16 16:00 82 04/26/16 14:00 84 04/27/16 07:00 Intake Total 6406 ml Output Total 5943 ml Balance 463 ml (Rosa Mraia Ellington) Review of Systems/Exam Exam Ms. Pride is intubated and well sedated. EVD in place at 0 cmH20 draining well. ICPs = 9 Removed head wrap from bone flap. Flap tight. Wound clean. JOE drains intact. CN: pupils 2 mm nonreactive. Right lateral gaze. mild right corneal reflex, absent left corneal No withdrawals x 4 extremities (Rosa Maria Ellington) Medications Current Medications Current Medications Medications (Trade) Dose Ordered Sig/Zhanna Route PRN Reason Start Time Stop Time Status Last Admin Dose Admin Potassium Chloride/Sodium Chloride (NS + KCl 20 Meq Inj) 1,000 ml @ 50 mls/hr Q20H IV 04/11/16 13:23 04/27/16 05:50 IV Flush (NS Flush) 2 ml UNSCH PRN IVF FLUSH AFTER USING IV ACCESS 04/11/16 13:30 IV Flush (NS Flush) 2 ml BID IVF 04/11/16 21:00 04/27/16 08:00 Acetaminophen (Tylenol) 650 mg Q6H PRN PO PAIN 1-10 AND/OR FEVER >101F 04/11/16 13:30 Pantoprazole Sodium (Protonix Inj) 40 mg DAILY IV 04/11/16 14:00 04/27/16 08:00 Lorazepam (Ativan Inj) 2 mg Q1H PRN IV Seizures 04/11/16 13:30 Ondansetron HCl (Zofran Inj) 4 mg Q6H PRN IV NAUSEA OR VOMITING 04/11/16 13:30 Miscellaneous Information 1 [id number] XX 04/11/16 13:30 Chlorhexidine Gluconate (Chlorhexidine 2% Cloth) Taper DAILY@04 TOP 04/12/16 04:00 04/08/17 03:59 04/26/16 04:00 Chlorhexidine Gluconate 3 pack 3 pack UNSCH PRN TOP HYGIENIC CARE 04/11/16 13:30 Potassium Chloride 100 ml @ 50 mls/hr Q2H PRN IV For Potassium 2.8 - 3.2 mEq/L 04/11/16 13:30 04/27/16 06:10 Potassium Chloride (KCl 20 Meq Premix Inj) 100 ml @ 50 mls/hr Q2H PRN IV For Potassium 2.8 - 3.2 mEq/L 04/11/16 13:30 04/26/16 02:09 Potassium Chloride 40 meq 40 meq UNSCH PRN PO/TUBE For Potassium 3.3 - 3.5 mEq/L 04/11/16 13:30 04/18/16 09:01 Potassium Chloride 100 ml @ 25 mls/hr UNSCH PRN IV For Potassium 3.3 - 3.5 mEq/L 04/11/16 13:30 04/25/16 08:41 Potassium Chloride 100 ml @ 50 mls/hr Q2H PRN IV For Potassium 3.3 - 3.5 mEq/L 04/11/16 13:30 04/24/16 12:45 Magnesium Sulfate/ Sodium Chloride (Magnesium Sulfate Inj/NS Inj) 100 ml @ 50 mls/hr UNSCH PRN IV For Magnesium 0.9 - 1.1 mg/dL 04/11/16 13:30 Magnesium Oxide 800 mg 800 mg UNSCH PRN PO For Magnesium 1.2 - 1.6 mg/dL 04/11/16 13:30 Magnesium Sulfate/ Sodium Chloride (Magnesium Sulfate Inj/NS Inj) 100 ml @ 50 mls/hr UNSCH PRN IV For Magnesium 1.2 - 1.6 mg/dL 04/11/16 13:30 04/23/16 09:49 Potassium Phosphate 2000 mg 2,000 mg Q4H PRN PO For Phosphorus < 2.5 mg/dL 04/11/16 13:30 Sodium Phosphate/ Sodium Chloride (Sodium Phosphate Inj/NS 250 ml Inj) 250 ml @ 42 mls/hr UNSCH PRN IV For Phosphorus < 2.5 mg/dL 04/11/16 13:30 04/14/16 06:47 Potassium Chloride (KCl 40 Meq/30 ml Liq) 40 meq UNSCH PRN PO/TUBE SEE LABEL COMMENTS 04/11/16 13:30 Potassium Phosphate 2000 mg 2,000 mg UNSCH PRN PO/TUBE SEE LABEL COMMENTS 04/11/16 13:30 Potassium Phosphate/Sodium Chloride (Potassium Phosphate Inj/NS 250 ml Inj) 260 ml @ 42 mls/hr UNSCH PRN IV SEE LABEL COMMENTS 04/11/16 13:30 Metoprolol Tartrate (Lopressor) 25 mg Q6H PO 04/11/16 14:00 04/27/16 07:26 Acetaminophen 650 mg 650 mg Q4H PRN PO Temp > 100. 04/11/16 16:30 04/24/16 11:59 Propofol (Diprivan 1000 Mg/100ml Inj) 100 ml @ 0 mls/hr TITRATE IV 04/11/16 20:30 04/27/16 11:24 Fentanyl Citrate 100 mcg 100 mcg Q30M PRN IV PUSH Pain 6-10 04/12/16 16:30 04/15/16 14:51 Fentanyl Citrate 250 ml @ 0 mls/hr TITRATE IV 04/12/16 16:30 04/27/16 11:24 Norepinephrine Bitartrate 4 mg/ Sodium Chloride 254 ml @ 0 mls/hr TITRATE IV 04/12/16 17:45 04/22/16 05:56 Midazolam HCl 100 ml @ 0 mls/hr TITRATE IV 04/13/16 13:00 04/27/16 11:24 Nicardipine HCl 25 mg/Sodium Chloride 260 ml @ 0 mls/hr TITRATE IV 04/14/16 17:45 04/27/16 05:50 Piperacillin Sod/ Tazobactam Sod 100 ml @ 200 mls/hr Q6H IV 04/15/16 09:00 04/27/16 08:00 Levofloxacin/ Dextrose 150 ml @ 100 mls/hr Q24H IV 04/16/16 18:00 04/26/16 17:20 Pharmacy Profile Note 0 ml @ 0 mls/hr UNSCH OTHER 04/17/16 12:45 Vancomycin HCl/ Sodium Chloride (Vancomycin Inj/ NS 500 ml Inj) 530 ml @ 250 mls/hr Q12H IV 04/17/16 14:00 04/27/16 02:13 Lactulose (Lactulose Liq) 30 ml DAILY PO 04/19/16 09:00 04/27/16 08:00 Enoxaparin Sodium (Lovenox Inj) 40 mg Q24H SQ 04/19/16 13:00 Hold 04/21/16 12:12 Nimodipine 30 mg 30 mg Q4HR PO 04/20/16 00:00 04/27/16 11:24 Sodium Chloride 240 meq/Syringe / Bag 60 ml @ 120 mls/hr Q6H PRN IV ICP >20 04/20/16 08:15 04/27/16 02:12 Sodium Chloride 500 ml @ 30 mls/hr [id number] IV 04/20/16 15:30 Hold 04/23/16 08:56 Levetriacetam/ Sodium Chloride (Keppra Inj/NS Inj) 105 ml @ 420 mls/hr Q12HR IV 04/23/16 21:00 04/27/16 08:00 Metoclopramide HCl (Reglan Inj) 10 mg Q8HR IV PUSH 04/24/16 22:00 04/27/16 05:05 Labetalol HCl (Trandate Inj) 20 mg Q4H PRN IVS SEE LABEL COMMENTS 04/25/16 00:30 Miscellaneous Information SPECIFIC LAB TO BE DRAWN:VANCOMY... ONCE ONCE XX 04/28/16 01:45 04/28/16 01:46 (Rosa Maria Ellington) Medical Decision Making MDM Remarks 46 y/o female with SAH from ruptured ICA aneurysm s/p coiling left MCA aneurysm s/p decompressive craniectomy due to sustained elevated intracranial pressure with improved ICPs following decompression (Rosa Maria Ellington) Plan Plan Remarks cont EVD draining with ICP monitoring cont serial neuro checks cont Nimodipine cont critical care mgt removed head dressing from bone flap keep well sedated, hold sedation vacation for now (Rosa Maria Ellington) Attending Statement The exam, history, and the medical decision-making described in the above note were completed with the assistance of the mid-level provider. I reviewed and agree with the findings presented. I attest that I had a [id number] encounter with the patient on the same day, and personally performed and documented my assessment and findings in the medical record. (Ty Miranda MD) Rosa Maria Ellington Apr 27, 2016 12:40 Ty Miranda MD Apr 27, 2016 19:46
[2016-04-27] MEDS: FLUCONAZOLE 100 MG TAB PO SCH (15:32)
[2016-04-27] MEDS: LACTOBACILLUS ACIDOPHILUS TAB PO SCH (15:32)
--- NOTE | 2016-04-27 15:53 | HHI.CCPN ---
Subjective Remarks/Hospital Course SAH, unresponsive, malignant hypertension - This 46-year-old woman with a longstanding history of hypertension, was found unresponsive at her home and paramedics arrived to find her with shallow breathing and a Angelica coma scale of three. Systolic blood pressure was 290 and under bag mask ventilation. She was brought to the emergency department where she remained unresponsive and required endotracheal intubation, mechanical ventilation. A CT scan of the head showed a large left hemispheric intraparenchymal hemorrhage with subarachnoid blood as well. Subsequent evaluation confirmed a left middle cerebral artery aneurysm which appears to be the culprit lesion. She was brought immediately to the [facility] where we continued Cardene drip infusion for blood pressure control and placed arterial monitoring lines and central venous line. Electrolyte abnormalities were corrected, particularly severe hypokalemia. The ventilator was adjusted to maintain arterial CO2, between 35 and 40. She received Keppra loading intravenously and Nimotop through the nasogastric tube. Usual ICU monitoring was in place and arrangements were made, a ventriculostomy was placed, and transported expeditiously to interventional radiology where attempts will be made to coil the aneurysm. 04/12: Culprit (larger) aneurysm was coiled last evening. ICP acceptable with drainage bloody as expected. Withdraws 4 limbs to pain. 04/13: ICP starting to rise > 20, requiring vent manipulation, increased sedation, analgesia. 04/14: Intermittently ICP spiking >20, RR increased to 18, 50 mg of rocuronium 1. CT angiogram done today to rule out vasospasm 04/15: Remains heavily sedated for ICP control. Overall ICP control improved overnight-remained 12-14. Currently on propofol fentanyl and Versed. CT angiogram done yesterday 04/14/16 showed status post endovascular repair of left supraclinoid aneurysm, left M1 segment aneurysm stable no vasospasm. 04/16: Remains hypoxemic, FiO2 had to be increased to 70%, now down to 60%. Chest x-ray shows increasing right lower lobe infiltrate sputum with gram- negative rods. Blood pressure remains at target 04/17: ICP remains elevated at 22-25. Became hypothermic overnight, likely related to worsening sepsis. Repeat panculture ordered, and vancomycin 04/18: Labile hypertension. Start patient limits expanded to 150-190 systolic. Became more hypoxic now on 90% FiO2. Chest x-ray shows slight increase in right lower lobe infiltrate. Sodium at target 04/19: Remains critically ill with intermittent ICP elevation. ABG shows respiratory alkalosis, minute ventilation reduce which caused ICP to increase further. 3% saline restarted and 23% saline 1 bolus ordered. Chest x-ray shows slight improvement in the right lower lung infiltrate 04/20: ICP elevated to 31, 23% bolus given with improvement to 12-15. Low-grade fever with increase in white count to 16.4. Will send panculture. CTA brain in am 04/21: Remains critically ill with intermittent ICP elevation. ICP controlled with 23% bolus. Keeping sodium 150-160. CT head, CTA 04/22/1604/22: CT of the head shows evolving left frontoparietal hemorrhage with increasing midline shift 1.5 cm left to right. Intermittent ICP elevation was responsive to 23% saline. D/W Neurosurgery. 04/23: Intubated and ICP elevation up to 27, optimized on medical therapy and hyperosmolar therapy. Prognosis very poor according to neurosurgery. Per Dr. Ruiz, patient has suffered significant dominant hemisphere frontal temporal lobe hemorrhage and and consequent cerebral injury which reduces likelihood of functional recovery. Palliative care consulted-will meet with family today 04/24: Overnight high ICP elevations up to 40s. Currently 17-20. Family meeting with palliative care. Optimized on hyperosmolar therapy. Ct head per Dr. Meléndez- large frontal hemorrhage with mass effect, persistent midline shift 04/25: ICP remains high despite maximum hyperosmolar therapy. Family requests aggressive care. Dr. Meléndez is planning for left decompressive craniectomy 04/26: Patient is s/p Left frontotemporal parietal decompressive craniotomy and evacuation of temporal hematoma. ICP better controlled 04-09, remains heavily sedated 04/27: ICP remains better control, 11-12. No acute events overnight. Overnight off Cardene or Levophed. Sedation vacation not approved by neurosurgery yet Objective - Vital Signs Date Time Temp Pulse Resp B/P Pulse Ox O2 Delivery O2 Flow Rate FiO2 04/27/16 15:27 100 40 04/27/16 14:00 87 04/27/16 12:00 99.0 14 183/86 Intake and Output 04/26/16 04/26/16 04/27/16 08:00 16:00 00:00 Intake Total 1666 ml 1923 ml 1997 ml Output Total 1829 ml 2356 ml 1341 ml Balance -163 ml -433 ml 656 ml Result Diagram: 04/27/16 0512 04/27/16 1245 Other Results Laboratory Tests Test 04/11/16 04/11/16 04/12/16 13:06 20:44 05:58 Blood Gas Puncture Site ART LINE ART LINE ART LINE Blood Gas Patient Temperature 98.6 98.6 98.6 Blood Gas HCO3 20 mmol/L 21 mmol/L 19 mmol/L (22-26) (22-26) (22-26) Blood Gas Base Excess -4.2 mmol/L -3.1 mmol/L -4.9 mmol/L (-2-2) (-2-2) (-2-2) Blood Gas Oxygen Saturation 98 % (90-100) 98 % (90-100) 97 % (90-100) Arterial Blood pH 7.40 7.42 7.42 (7.380-7.420) (7.380-7.420) (7.380-7.420) Arterial Blood Partial 33 mmHg (38-42) 33 mmHg (38-42) 30 mmHg (38-42) Pressure CO2 Arterial Blood Partial 372 mmHg 450 mmHg 135 mmHg Pressure O2 (61-120) (61-120) (61-120) Arterial Blood Oxygen Content 11.0 Vol % 10.2 Vol % 15.4 Vol % (12.0-20.0) (12.0-20.0) (12.0-20.0) Arterial Blood 1.5 % (0-4) 1.4 % (0-4) 1.3 % (0-4) Carboxyhemoglobin Arterial Blood Methemoglobin 1.2 % (0-2) 1.2 % (0-2) 1.1 % (0-2) Blood Gas Hemoglobin 7.3 G/DL 6.5 G/DL 11.2 G/DL (12.0-16.0) (12.0-16.0) (12.0-16.0) Oxygen Delivery Device VENT VENTILATOR VENTILATOR Blood Gas Ventilator Setting PRVC/20RATE/500/5PEE PRVC/AC PRVC/AC Blood Gas Inspired Oxygen 100 % 100 % 40 % Objective Remarks Infusions Propofol Fentanyl Versed Nimbex-DCd 04/21 GEN: Middle-aged female who is intubated heavily sedated, critically ill. Circumferential craniotomy dressing in place HEENT: Atraumatic. EVD in place. Pupils 2mm nonreactive. Tongue swollen and protuberant NECK: Supple. No resistance to motion. Orally intubated. LUNGS: Clear, no wheezes or crackles. HEART: Normal S1-S2, tachycardia, no murmur or rub, neck veins are distended. ABDOMEN: Soft, nontender, nondistended, no guarding, bowel sounds present. EXTREMITIES: Warm, well-perfused, foot and wrist pulses intact. NEUROLOGIC: Pupils 2 mm nonreactive, positive corneal. No withdrawal to pain. ICP 8-[address] Urinary Catheter: Yes Assessment to: Continue A/P Assessment and Plan Acute subarachnoid hemorrhage, left middle cerebral artery aneurysm Large left frontal hemorrhage Intracranial hypertension Acute respiratory failure on mechanical ventilation RLL pneumonia/E Coli in sputum Sepsis Acute encephalopathy Malignant hypertension Status post coiling of MCA aneurysm Hypokalemia History of hypertension Lactic acidosis PLAN: NEURO: Acute subarachnoid hemorrhage, left middle cerebral artery aneurysm Intracranial hypertension, uncontrolled Acute encephalopathy CT of the head shows evolving left frontoparietal hemorrhage with increasing midline shift 1.5 cm left to right. CT of the head repeat shows probable developing infarct. Patient has suffered significant dominant hemisphere frontal temporal lobe hemorrhage and consequent cerebral injury which reduces likelihood of functional recovery. Family request aggressive care and Dr. Meléndez performed left decompressive craniotomy 04/25/16 and evacuation of temporal hematoma Sedation/analgesia (Propofol, Versed and Fentanyl) to help control ICP. Mild hypervolemia using CVP. No spontaneous awakening trial until approved by neurosurgery Continue Ventricular drain. Keppra, Nimotop. Treat fever aggressively. Nimbex for ICP control-DCd 04/21/16 23% PRN for ICP >20. Keep Na 150-160 due to high ICP. Restart 3% gtt at [address] angiogram done 04/14, 04/16/16, 04/22/16 showed status post endovascular repair of left supraclinoid aneurysm, left M1 segment aneurysm stable no vasospasm. Continue with hypervolemia and hypertension for vasospasm prevention. Target SBP 180 for vasospasm prophylaxis. Palliative care following remains full code CV: Uncontrolled HTN, now permissive Target SBP 150-190 for vasospasm prophylaxis. Maintain preload, follow CVP, for hypervolemia. Use Levophed/Cardene PRN Continue Nimotop RESP: Acute respiratory failure HCAP PC/AC vent mode, adjust vent rate to keep EtCO2 28-33. Nebs prn and scheduled. Vent bundle. No vent weaning due to high ICP, severe encephalopathy Tracheostomy once ICP adequately controlled and cleared by N/S : Rebollar required for hourly output. Keep UO more than 30 mL per hour Increase urine output noted today but serum osmolality and urine osmolality not consistent with DI GI: Tube feeds held for surgery 04/25, resume and advanced to goal as tolerated, continue bowel regimen Lactulose to 30 ml q8. Dulcolax suppository PRN, Having BM GI consulted for possible PEG tube placement HEME: Serial Hgb. Monitor CBC ID: Sepsis HCAP with E Coli, Haemophilus Sputum cx EC andrea, haemophilus and blood cultures neg to date. On Zosyn 4.5 GM IV q6 04/15/16. Levaquin was added 04/16/16 to cover for Stenotrophomonas -DCd 04/19, restarted again 04/20/16-DC today 04/26/16 Repeat panculture with blood urine and sputum cultures 04/17/16 negative to date CXR bilateral infiltrates, with leukocytosis and brown sputum Resend cultures due to low grade fever and increased WBC 04/20 -NEG to date ENDO: SSI for euglycemia, avoid hypokalemia, hypo Mag PX: SCDs. Protonix. Cleared by to use Lovenox for chemical DVT prophylaxis on 04/19/16 Overall impression: Severe SAH and left parenchymal bleed and ruptured aneurysm, with cerebral edema , elevated ICP. Now intractable ICP elevation, plan for left decompressive hemicraniectomy today. HCAP and severe sepsis. CT of the head shows new left frontoparietal hemorrhage. Remains critically ill and prognosis guarded at best. Prognosis poor with L frontal hemorrhage- , now with left decompressive craniotomy and evacuation of the bleed. palliative care following Critical care 45 mins, d/w Mary Martinez MD Apr 27, 2016 15:53
[2016-04-27] MEDS: LEVOFLOXACIN 750 MG PREMIX INJ 150 ML IV SCH (17:16)
[2016-04-27] MEDS: 3% SALINE INJ 500 ML IV SCH (18:50)
[2016-04-28] VITALS (19 sets, daily range): BP systolic 166–186; BP diastolic 73–92; PULSE 68–92; RESP 14; TEMP 97.7–98.5; O2SAT 95–100
[2016-04-28] MEDS: niMODipine 30 MG CAP PO SCH ×7 (00:21→23:39)
[2016-04-28] MEDS: METOPROLOL TARTRATE 25 MG TAB PO SCH ×4 (01:32→20:40)
[2016-04-28] MEDS ORDERED: PHARMACY ORDERED LAB XX ONE (01:45)
[2016-04-28] MEDS: PROPOFOL 1000 MG/100 ML IV SCH ×7 (01:55→22:20)
[2016-04-28 02:10] LABS: VANCOMYCIN TROUGH 18.7 MCG/ML (5.0-10.0)
[2016-04-28] MEDS: VANCOMYCIN INJ 1,500 MG in SODIUM CHLORID 0.9% 500 ML INJ 500 ML IV SCH ×2 (02:27→14:59)
[2016-04-28] MEDS: CHLORHEXIDINE GLUCONATE 2 % 1 PACK (2 CLOTHS) TOP SCH (03:15)
[2016-04-28] MEDS: PIPERACIL-TAZO 4.5 GM PREMIX 100 ML IV SCH ×4 (03:19→21:46)
[2016-04-28] MEDS: NS + KCL 20 MEQ INJ 1,000 ML IV SCH ×2 (03:21→06:08)
[2016-04-28 05:17] LABS: AUTOMATED NEUTROPHIL # 12.1 TH/MM3 (1.8-7.7); BASOPHIL # 0.1 TH/MM3 (0-0.2); BASOPHIL % 0.6 % (0.0-2.0); EOSINOPHIL # 0.7 TH/MM3 (0-0.4); EOSINOPHIL % 4.4 % (0.0-4.0); HEMATOCRIT 25.9 % (35.0-46.0); LYMPH % 7.2 % (9.0-44.0); LYMPHOCYTE # 1.1 TH/MM3 (1.0-4.8); MEAN CELL VOLUME 76.3 FL (80.0-100.0); MEAN CORPUSCULAR HEMOGLOBIN 24.8 PG (27.0-34.0); MEAN CORPUSCULAR HGB CONC 32.5 % (32.0-36.0); MONO % 6.8 % (0.0-8.0); PLATELET COUNT 292 TH/MM3 (150-450); RED BLOOD COUNT 3.39 MIL/MM3 (4.00-5.30); RED CELL DISTRIBUTION WIDTH 26.8 % (11.6-17.2)
[2016-04-28 05:32] LABS: HEMO FLAGS AUTO DIFF
[2016-04-28 05:54] LABS: ALKALINE PHOSPHATASE 84 U/L (45-117); ALT (GPT) 28 U/L (10-53); ANION GAP 9 MEQ/L (5-15); AST (GOT) 28 U/L (15-37); BLOOD UREA NITROGEN 5 MG/DL (7-18); CHLORIDE 113 MEQ/L (98-107); GLOMERULAR FILTRATION RATE 159 ML/MIN (>89); SODIUM (NA) 145 MEQ/L (136-145); TOTAL BILIRUBIN ADULT 0.6 MG/DL (0.2-1.0)
[2016-04-28] MEDS: METOCLOPRAMIDE HCL 10 MG/2 ML VIAL IV PUSH SCH ×3 (06:07→21:46)
[2016-04-28] MEDS: fentaNYL DRIP 250 ML IV SCH ×3 (06:08→22:21)
[2016-04-28] MEDS: POTASSIUM CHLOR 40 MEQ PREMIX 100 ML IV PRN (06:22)
--- NOTE | 2016-04-28 06:41 | RADRPT ---
EXAM DATE/TIME: 04/28/2016 05:53 [facility] COMPARISON: CHEST SINGLE AP, April 27, 2016, 5:32. INDICATIONS : Respiratory disease. MEDICAL HISTORY : Hypertension. SURGICAL HISTORY : Tubal ligation. ENCOUNTER: Subsequent ACUITY: 2 weeks PAIN SCORE: Non-responsive. LOCATION: Bilateral chest FINDINGS: A single view of the chest demonstrates basilar airspace disease and small effusions. Endotracheal tu be in satisfactory position. NG enters stomach. Cardiomegaly. CONCLUSION: Basilar airspace disease and pleural effusions similar to April 27. Endotracheal tube, nasogastric t ube and left central lines are unchanged. Quinn Bateman MD on April 28, 2016 at 6:35 Board Certified Radiologist. This report was verified electronically.
[2016-04-28] MEDS: levETIRAcetam 500 MG/NS 100 ML IV SCH ×4 (07:51→21:46)
[2016-04-28] MEDS: PANTOPRAZOLE SODIUM 40 MG VIAL IV SCH (07:51)
[2016-04-28] MEDS: LACTOBACILLUS ACIDOPHILUS TAB PO SCH (07:52)
[2016-04-28] MEDS: FLUCONAZOLE 100 MG TAB PO SCH (07:52)
[2016-04-28] MEDS: SODIUM CHLORIDE 0.9% FLUSH 5 ML FLUSH IVF SCH ×2 (09:00→21:00)
[2016-04-28] MEDS: LACTULOSE SYRUP 20 GM/30 ML CUP PO SCH (09:00)
[2016-04-28 09:06] LABS: BANDS 5 % (0-6); EOSINOPHILS 4 % (0-4); NEUTROPHIL # MANUAL DIFF 12.8 TH/MM3 (1.8-7.7); POLYS (SEG NEUTROPHILS) 80 % (16-70); WBC DIFF SAMPLE 100
[2016-04-28 09:07] LABS: PLATELET ESTIMATE SMEAR NORMAL (NORMAL); PLATELET MORPHOLOGY NORMAL (NORMAL); SCAN/DIFF FINAL DIFF MANUAL
--- NOTE | 2016-04-28 09:48 | HHI.NSPN ---
(Genna Madrid) History Chief Complaint: status post coil for aneurysm (Genna Madrid) Interval History 04/12/16: Patient had an aneurysm coiled yesterday, intubated and sedated, ICP stable overnight 04/13/16: Increased ICP overnight, improved after a 23% saline bolus 04/14/16: ICP stable overnight 04/15/16: ICP stable, CTA stable no vasospasm 04/16/16: ICP slight increase overnight now stabilized, intubated and sedated 04/17/16: ICP increased yesterday afternoon, repeat CTA and CT stable, no vasospasm, no new hemorrhage, hypothermia overnight 04/21/16: increasing ICP over the weekend, getting 23% every 6 hours PRN. 04/22/16: ICP responding over night to 23% saline, CT and CTA planned this am. Nimbex off since yesterday. 04/23/16: ICP stable overnight, SBP increasing today RN adjusting pressors, HGB improved after 2 units of PRBC, no signs of active bleeding 04/24/16: ICP increased overnight with stimulation but not sustained, low HGB again today receiving PRBC this am 04/25/16: ICP max 38 overnight, currently 10, no family at bedside. 04/26/16: She has ventriculostomy drain in place. She underwent left decompressive craniectomy yesterday 04/[address] Meléndez due to elevated ICPs. Today, ICPs improved, currently 4. 04/27/16: intermittent spikes in ICPs overnight in low 20's controlled with hyperosmotic bolus. Currently 9. well sedated. 04/28/16: ICP stable between 9-14 per RN. EVD draining blood tinged CSF, flap firm non-pulsatile (Genna Madrid) Exam Results Vital Signs Date Time Temp Pulse Resp B/P Pulse Ox O2 Delivery O2 Flow Rate FiO2 04/28/16 08:00 98.0 80 14 185/92 100 04/28/16 08:00 40 Intake and Output 04/27/16 04/27/16 04/28/16 08:00 16:00 00:00 Intake Total 2486 ml 1924 ml 1991 ml Output Total 2246 ml 1936 ml 2278 ml Balance 240 ml -12 ml -287 ml (Genna Madrid) Physical Examination Ms. Pride is intubated and sedated. EVD in place at 0 cmH20 draining well. ICPs = 9 Incision is well approximated. Khai intact. Flap firm and non-pulsatile. Wound clean. JOE drains x 2 intact. Draining 8cc and 11cc. CN: pupils 2 mm nonreactive. Right lateral gaze. No withdrawals x 4 extremities. (Genna Madrid) Lab, Micro, Other Results Last Impressions Chest X-Ray 04/28/16 0600 Signed Impressions: Service Date/Time: Thursday, April 28, 2016 05:53 - CONCLUSION: Basilar airspace disease and pleural effusions similar to April 27. Endotracheal tube , nasogastric tube and left central lines are unchanged. Quinn Bateman MD Abdomen/Pelvis CT 04/24/16 1416 Signed Impressions: Service Date/Time: March 14:39 - CONCLUSION: Mild small bowel ileus with scattered air-fluid levels. Bibasilar lung consolidation with associated small effusions. Significant soft tissue fluid accumulation with edematous changes throughout the abdominal wall. Nasogastric tube in good position. Saqib Garcia MD Head CT 04/24/16 0000 Signed Impressions: Service Date/Time: March 14:39 - CONCLUSION: Persistent significant mass effect associated with the large left frontal temporal hematoma. No significant change in [id number] midline shift. Decreased density in the right frontal lobe which may indicate vascular compromise due to mass effect and a developing infarct. Stable ventricular system following ventriculostomy placement. Saqib Garcia MD Head CTA 04/22/16 0600 Signed Impressions: Service Date/Time: Friday, April 22, 2016 09:26 - CONCLUSION: 1. The intracranial circulation remains patent. The exam demonstrates significantly more edema surrounding the patient's large area of intraparenchymal hemorrhage on the left. There is at least 1.3 cm of left to right falcine shift. This is significantly worse when compared to the previous examination. This appears to be the result of worsening edema around the patient's intraparenchymal hemorrhage. Eric Castellanos MD Neck CTA 04/11/16 1151 Signed Impressions: Service Date/Time: Monday, April 11, 2016 12:01 - CONCLUSION: Negative for hemodynamically significant carotid stenosis. Ricardo Castellanos MD FACR Cerebral Arteriogram 04/11/16 0000 Signed Impressions: Service Date/Time: Monday, April 11, 2016 14:18 - CONCLUSION: 1. 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 This is the aneurysm felt responsible for the intracranial hemorrhage. 2. Small 4 mm left M1 segment aneurysm. Attempts at embolizing this aneurysm were unsuccessful due to the broad based nature of the aneurysm. Endovascular repair of this aneurysm could not be performed. Kennedy Thibodeaux Jr., MD Laboratory Tests Test 04/27/16 04/27/16 04/27/16 04/28/16 10:30 12:45 20:00 01:35 Sodium Level 148 MEQ/L 146 MEQ/L 145 MEQ/L 147 MEQ/L Potassium Level 3.7 MEQ/L Serum Osmolality 299 MOSM/KG 296 MOSM/KG Vancomycin Level Trough 18.7 MCG/ML Test 04/28/16 05:00 White Blood Count 15.0 TH/MM3 Red Blood Count 3.39 MIL/MM3 Hemoglobin 8.4 GM/DL Hematocrit 25.9 % Mean Corpuscular Volume 76.3 FL Mean Corpuscular Hemoglobin 24.8 PG Mean Corpuscular Hemoglobin 32.5 % Concent Red Cell Distribution Width 26.8 % Platelet Count 292 TH/MM3 Mean Platelet Volume 8.3 FL Neutrophils (%) (Auto) 81.0 % Lymphocytes (%) (Auto) 7.2 % Monocytes (%) (Auto) 6.8 % Eosinophils (%) (Auto) 4.4 % Basophils (%) (Auto) 0.6 % Neutrophils # (Auto) 12.1 TH/MM3 Lymphocytes # (Auto) 1.1 TH/MM3 Monocytes # (Auto) 1.0 TH/MM3 Eosinophils # (Auto) 0.7 TH/MM3 Basophils # (Auto) 0.1 TH/MM3 CBC Comment AUTO DIFF Differential Total Cells 100 Counted Neutrophils % (Manual) 80 % Band Neutrophils % 5 % Lymphocytes % 8 % Monocytes % 3 % Eosinophils % 4 % Neutrophils # (Manual) 12.8 TH/MM3 Differential Comment FINAL DIFF MANUAL Platelet Estimate NORMAL Platelet Morphology Comment NORMAL Sodium Level 145 MEQ/L Potassium Level 3.0 MEQ/L Chloride Level 113 MEQ/L Carbon Dioxide Level 23.0 MEQ/L Anion Gap 9 MEQ/L Blood Urea Nitrogen 5 MG/DL Creatinine 0.50 MG/DL Estimat Glomerular Filtration 159 ML/MIN Rate Random Glucose 85 MG/DL Serum Osmolality 295 MOSM/KG Calcium Level 8.2 MG/DL Total Bilirubin 0.6 MG/DL Aspartate Amino Transf 28 U/L (AST/SGOT) Alanine Aminotransferase 28 U/L (ALT/SGPT) Alkaline Phosphatase 84 U/L Total Protein 5.3 GM/DL Albumin 1.3 GM/DL (Genna Madrid) Medical Decision Making Impression and Plan Impression: 1. S/P endovascular coiling of ruptured cerebral aneurysm. 04/14/16 CT angiogram stable: Status post endovascular repair of left supraclinoid aneurysm. Left M1 segment aneurysm stable 04/16/[address] and CTA stable. No vasospasm, no new hemorrhage. 04/22/16: Head CT 14mm left to right shift, and CTA perfusion, no vasospasm Plan: Follow up head CT today 04/28 GI and surgery consults for Trach and PEG placement pending this week. Continue ventilatory support and sedation. Maintain ventriculostomy at 0cmH20 Nimodipine for vasospasm prophylaxis. Maintain systolic blood pressure 180-200 range Continue to monitor sodium level, keep 145-155. 23% saline for ICP over 25. Hold for Na+ greater than 160. Sustainable Design Coordinator following for medical management Keppra for seizure prophylaxis. Protonix for ulcer prophylaxis Hold Lovenox. Tube feeds as tolerated. (Genna Madrid) Attending Statement On the date of this note, the undersigned had a [id number] encounter with the patient. I personally examined the patient, obtained pertinent history, and reviewed the electronic medical record including pertinent laboratory results and imaging studies. I personally developed the treatment plan and perform medical decision making. All of the above was performed in the presence of the physician's economist research assistant, who has scribed my findings into the medical record as noted above. (Sherwin Meléndez MD) Genna Madrid Apr 28, 2016 09:48 Sherwin Meléndez MD Apr 29, 2016 09:43
[2016-04-28] MEDS: MIDAZOLAM 100 MG/ML INJ 100 ML IV SCH ×3 (10:08→22:20)
--- NOTE | 2016-04-28 11:35 | HHI.HCPN ---
Reason for visit a. To assist with evaluation and management of symptoms including: encephalopathy b. To assist medical decision maker(s) with: better understanding of current medical conditions; weighing benefits/burdens of medical treatment options; making medical treatment decisions. Subjective/Interval History Patient seen today to follow-up on goals, comfort. ICPs were remaining high despite maximized medical therapies. Family expressing aggressive goals. S/p decompressive left frontotemporal rattle crani , evacuation of temporal hematoma on 04/26/16. ICPs improved following 810, remains on sedation. Nursing reports some intermittent spontaneous eye opening and eye opening to pain. Otherwise not responsive to exam. Intermittently requiring pressors. Blood cultures from 04/20 with no growth, sputum culture and urine cultures also from 04/20 with no growth. Stool sent for hemoglobin negative. H&H remains low, no signs of active bleeding reported. Currently on 50 mcg/kg/minute Diprivan, 250 mics/hour fentanyl, Versed 10 mg/hour, 3% saline 20ml/hr, MIVF,Levophed to mcg/minute. CXR stable similar to exam yesterday--bibasilar areas of atelectasis, suspected effusions. Planned for PEG tube placement today, GI following. No family present at time of my exam. To my exam nonresponsive. No eye opening. No withdrawal to pain. No apparent discomfort/distress. History brought forward from initial consult by Jillian AKBAR on 04/22/16: This 46 year old female presented to the ED on 04/11/16, apparently found on the ground unresponsive by family members, EMS was activated. EMS found her with a GCS of 3 and blood pressure to 90 systolic. She required respiratory ventilation support. She was unresponsive and unable to provide additional history. * She was intubated on arrival to the ED. Cardene was initiated for hypotension. CT brain obtained for suspected hemorrhage, CT brain indicates large left hemispheric intraparenchymal hemorrhage with subarachnoid blood. Suspected MCA aneurysm rupture, CTA head and neck pending. Neurosurgery consulted. Admitted to the ICU ,emergent ventriculostomy placement by neuro. * Neuro exam notes absent deep tendon reflexes, no withdrawal to stimuli weak cough reflex pupils 2 mm and nonreactive. Prognosis guarded given significant areas of hemorrhage--cerebral angiogram indicates to aneurysm. Planned for interventional radiology for attempted coiling. Initiated on Keppra, pneumatized. * 04/11 to IR for attempting coiling of 2 aneurysms. Large and most complex involves left posterior cerebral origin. Successful coil embolization of the largest aneurysm. Attempted coiling embolization of other M1 aneurysm on left not successful unable to treat at aneurysm via endovascular methods. * 04/13 ICP increasing, > 20, cerebral edema, requiring ventilator adjustments, increased sedation and analgesia--received 23% saline bolus //neurosurgery discussed with patient's family at bedside * 04/15 continues to require heavy sedation for ICP control, somewhat improved on sedation. Repeat CT angiogram indicated status post endovascular repair left aneurysm left M1 segment stable no vasospasm. * 04/16 hypoxemic FiO2 increased to 70%, CXR= lower lobe infiltrate, sputum+ or negative rods. Clinical exam: Pulse 2 mm nonreactive. No withdrawal 4 extremities. * 04/17 ICP elevated, hypothermic? Related to sepsis, pancultures pending, on Vanco --- later initiated on paralytics * 04/21 still critically ill on mechanical vent. Intermittent ICP elevations. Requiring 23% saline boluses. Paralytic Nimbex DC'd. Repeat CT angiogram planned for 04/22 * 04/22EEG no seizure activity noted. Slightly asynchrony no focal abnormality. CTA head 04/22 no vasospasm some perfusion. Palliative care consulted by neuro to assist family with clarification of goals of treatment. Hemoglobin low 6.8, ordered for RBC transfusion-Bumex 1 following. WBC 14.3. Patient seen in room no visitors present. Nursing indicates no family in as of yet today. She is sedated on mechanical vent, critically ill-appearing. Nonresponsive to my exam, no gag reflex when nursing provide suction during my exam. Currently on Cardene drip, Versed drip at 10 mg an hour, Diprivan drip at 15 mics/kg/minute, fentanyl drip at 250 mcgs/ hour, 3% saline at 40 mL/ hour and receiving second unit rbc's today. Primary nurse informs neurosurgery Dr. Ruiz by shortly before my exam and they indicated no plans for surgical intervention at this time. Following exam call to daughter, provided brief general medical update, assessment overview, arranged to meet with her tomorrow Thursday04/23/16 around 9:45 AM. Family/friend interactions *Call to daughter following exam, provided update and review of current medical conditions, prognosis, possible trajectory. She has no additional questions. Goals remain aggressive. . Advance Directives Living Will: Never completed Health Care Surrogate: Never completed Durable Power of Local Combination Truck Driver: Never completed Objective Vital Signs Date Time Temp Pulse Resp B/P Pulse Ox O2 Delivery O2 Flow Rate FiO2 04/28/16 10:00 84 04/28/16 09:54 100 50 04/28/16 09:52 100 50 04/28/16 08:00 98.0 80 14 185/92 100 04/28/16 08:00 40 04/28/16 08:00 80 04/28/16 06:00 82 04/28/16 04:25 98 40 04/28/16 04:00 40 04/28/16 04:00 76 04/28/16 04:00 98.1 76 14 186/84 100 04/28/16 02:00 84 04/28/16 01:30 100 40 04/28/16 00:00 92 04/28/16 00:00 40 04/28/16 00:00 98.5 91 14 182/86 100 04/27/16 22:18 100 40 04/27/16 22:00 91 04/27/16 20:00 98.5 92 14 180/87 100 04/27/16 20:00 40 04/27/16 20:00 92 04/27/16 19:35 100 40 04/27/16 19:35 100 40 04/27/16 18:00 87 04/27/16 16:00 79 04/27/16 16:00 98.6 79 14 172/77 100 04/27/16 16:00 40 04/27/16 15:27 100 40 04/27/16 14:00 87 04/27/16 12:00 40 04/27/16 12:00 99.0 99 14 183/86 100 04/27/16 12:00 90 04/27/16 11:45 100 40 Intake & Output 04/28/16 04/28/16 07:00 19:00 Intake Total 3797 ml Output Total 5416 ml Balance -1619 ml IV Total 3797 ml Output Urine Total 5075 ml Gastric Drainage Total 175 ml Drainage Total 166 ml Physical Exam CONSTITUTIONAL/GENERAL: This is an adequately nourished patient, in no apparent distress, critically ill on mechanical vent. TUBES/LINES/DRAINS: Central line left subclavian, Rebollar catheter, rectal drain, ventriculostomy, yaneth intact to top of head, ET tube, OG tube EYES: Pupils 2 mm, slight reaction to light. + Scleral edema. No scleral icterus. No injection or drainage. Fundi not examined. CARDIOVASCULAR: Regular rate and rhythm,+murmur. Peripheral pulses symmetric.+ Generalized edema. RESPIRATORY/CHEST: Symmetric, unlabored respirations via mechanical vent, no spontaneous respirations over vent rate. Course rhonchi throughout. GASTROINTESTINAL: Abdomen soft, unable to assess tenderness, nondistended. Bowel sounds hypoactive.OG tube clamped. + Liquid stool present in rectal drain. GENITOURINARY: Without palpable bladder distension. Rebollar catheter in place. NEUROLOGICAL: Sedated on mechanical vent. Nonresponsive to exam-no withdrawal to pain stimuli. Pupils with slight reaction. PSYCHIATRIC: unable to assess due to clinical condition. No apparent anxiety or tachypnea. Diagnostic Tests Laboratory Laboratory Tests Test 04/25/16 04/25/16 04/25/16 04/25/16 15:05 18:30 20:44 22:50 Sodium Level 154 MEQ/L 159 MEQ/L 155 MEQ/L (136-145) (136-145) (136-145) Potassium Level 3.2 MEQ/L (3.5-5.1) Chloride Level 131 MEQ/L (98-107) Carbon Dioxide Level 20.6 MEQ/L (21.0-32.0) Anion Gap 7 MEQ/L (5-15) Blood Urea Nitrogen 8 MG/DL (7-18) Creatinine 0.53 MG/DL (0.50-1.00) Estimat Glomerular Filtration 149 ML/MIN Rate (>89) Random Glucose 88 MG/DL (74-106) Serum Osmolality 324 MOSM/KG (275-295) Calcium Level 8.2 MG/DL (8.5-10.1) Prothrombin Time 11.2 SEC (9.8-11.4) Prothromb Time International 1.1 RATIO Ratio Activated Partial 31.9 SEC Thromboplast Time (22.6-28.8) Blood Gas Puncture Site O.R. GAS Blood Gas Patient Temperature 98.6 Blood Gas HCO3 19 mmol/L (22-26) Blood Gas Base Excess -5.0 mmol/L (-2-2) Blood Gas Oxygen Saturation 97 % (90-100) Arterial Blood pH 7.42 (7.380-7.420) Arterial Blood Partial 29 mmHg (38-42) Pressure CO2 Arterial Blood Partial 337 mmHg Pressure O2 (61-120) Arterial Blood Oxygen Content 17.2 Vol % (12.0-20.0) Arterial Blood 1.1 % (0-4) Carboxyhemoglobin Arterial Blood Methemoglobin 1.2 % (0-2) Blood Gas Hemoglobin 12.0 G/DL (12.0-16.0) Oxygen Delivery Device O.R. GAS Blood Gas Inspired Oxygen 100 % Blood Type O POSITIVE Antibody Screen NEGATIVE Test 04/25/16 04/25/16 04/26/16 04/26/16 22:51 23:09 04:32 08:42 Crossmatch Leukocyte-Reduced Red Blood Cells Blood Bank Comment Hemoglobin 8.8 GM/DL 8.5 GM/DL (11.6-15.3) (11.6-15.3) Hematocrit 27.6 % 27.0 % (35.0-46.0) (35.0-46.0) White Blood Count 16.5 TH/MM3 (4.0-11.0) Red Blood Count 3.50 MIL/MM3 (4.00-5.30) Mean Corpuscular Volume 77.1 FL (80.0-100.0) Mean Corpuscular Hemoglobin 24.3 PG (27.0-34.0) Mean Corpuscular Hemoglobin 31.5 % Concent (32.0-36.0) Red Cell Distribution Width 26.7 % (11.6-17.2) Platelet Count 246 TH/MM3 (150-450) Mean Platelet Volume 8.8 FL (7.0-11.0) Neutrophils (%) (Auto) 86.7 % (16.0-70.0) Lymphocytes (%) (Auto) 5.9 % (9.0-44.0) Monocytes (%) (Auto) 4.5 % (0.0-8.0) Eosinophils (%) (Auto) 2.8 % (0.0-4.0) Basophils (%) (Auto) 0.1 % (0.0-2.0) Neutrophils # (Auto) 14.3 TH/MM3 (1.8-7.7) Lymphocytes # (Auto) 1.0 TH/MM3 (1.0-4.8) Monocytes # (Auto) 0.7 TH/MM3 (0-0.9) Eosinophils # (Auto) 0.5 TH/MM3 (0-0.4) Basophils # (Auto) 0.0 TH/MM3 (0-0.2) CBC Comment AUTO DIFF Differential Comment AUTO DIFF CONFIRMED Ovalocytes 1+ (NORMAL) Keratocytes OCC (NORMAL) Sodium Level 151 MEQ/L 148 MEQ/L (136-145) (136-145) Potassium Level 3.9 MEQ/L (3.5-5.1) Chloride Level 119 MEQ/L (98-107) Carbon Dioxide Level 21.1 MEQ/L (21.0-32.0) Anion Gap 11 MEQ/L (5-15) Blood Urea Nitrogen 8 MG/DL (7-18) Creatinine 0.51 MG/DL (0.50-1.00) Estimat Glomerular Filtration 156 ML/MIN Rate (>89) Random Glucose 92 MG/DL (74-106) Serum Osmolality 310 MOSM/KG 300 MOSM/KG (275-295) (275-295) Calcium Level 8.0 MG/DL (8.5-10.1) Magnesium Level 1.6 MG/DL (1.5-2.5) Total Bilirubin 0.6 MG/DL (0.2-1.0) Aspartate Amino Transf 41 U/L (15-37) (AST/SGOT) Alanine Aminotransferase 35 U/L (10-53) (ALT/SGPT) Alkaline Phosphatase 102 U/L (45-117) Total Protein 5.6 GM/DL (6.4-8.2) Albumin 1.4 GM/DL (3.4-5.0) Urine Specific [place] 1.013 (1.002-1.035) Urine Osmolality 558 MOSM/KG (300-1300) Urine Random Sodium 235 MEQ/L Test 04/26/16 04/26/16 04/26/16 04/26/16 10:35 10:45 12:00 14:30 Sodium Level 148 MEQ/L 149 MEQ/L 148 MEQ/L (136-145) (136-145) (136-145) Nasal Screen MRSA (PCR) NEGATIVE (NEGATIVE) Serum Osmolality 301 MOSM/KG (275-295) Test 04/26/16 04/26/16 04/26/16 04/27/16 17:53 22:30 22:45 00:00 Sodium Level 145 MEQ/L 149 MEQ/L 149 MEQ/L (136-145) (136-145) (136-145) Serum Osmolality 299 MOSM/KG 303 MOSM/KG (275-295) (275-295) Blood Gas Puncture Site ART LINE Blood Gas Patient Temperature 98.6 Blood Gas HCO3 18 mmol/L (22-26) Blood Gas Base Excess -5.6 mmol/L (-2-2) Blood Gas Oxygen Saturation 96 % (90-100) Arterial Blood pH 7.44 (7.380-7.420) Arterial Blood Partial 27 mmHg (38-42) Pressure CO2 Arterial Blood Partial 123 mmHg Pressure O2 (61-120) Arterial Blood Oxygen Content 10.9 Vol % (12.0-20.0) Arterial Blood 1.6 % (0-4) Carboxyhemoglobin Arterial Blood Methemoglobin 0.8 % (0-2) Blood Gas Hemoglobin 7.9 G/DL (12.0-16.0) Oxygen Delivery Device VENTILATOR Blood Gas Ventilator Setting PC/AC Blood Gas Inspired Oxygen 40 % Potassium Level 3.2 MEQ/L (3.5-5.1) Chloride Level 116 MEQ/L (98-107) Carbon Dioxide Level 22.4 MEQ/L (21.0-32.0) Anion Gap 11 MEQ/L (5-15) Blood Urea Nitrogen 7 MG/DL (7-18) Creatinine 0.52 MG/DL (0.50-1.00) Estimat Glomerular Filtration 152 ML/MIN Rate (>89) Random Glucose 79 MG/DL (74-106) Calcium Level 8.1 MG/DL (8.5-10.1) Total Bilirubin 0.6 MG/DL (0.2-1.0) Aspartate Amino Transf 44 U/L (15-37) (AST/SGOT) Alanine Aminotransferase 34 U/L (10-53) (ALT/SGPT) Alkaline Phosphatase 117 U/L (45-117) Total Protein 5.4 GM/DL (6.4-8.2) Albumin 1.4 GM/DL (3.4-5.0) Test 04/27/16 04/27/16 04/27/16 04/27/16 02:54 05:12 10:30 12:45 Sodium Level 156 MEQ/L 149 MEQ/L 148 MEQ/L 146 MEQ/L (136-145) (136-145) (136-145) (136-145) White Blood Count 18.1 TH/MM3 (4.0-11.0) Red Blood Count 3.50 MIL/MM3 (4.00-5.30) Hemoglobin 8.7 GM/DL (11.6-15.3) Hematocrit 27.0 % (35.0-46.0) Mean Corpuscular Volume 77.2 FL (80.0-100.0) Mean Corpuscular Hemoglobin 24.9 PG (27.0-34.0) Mean Corpuscular Hemoglobin 32.2 % Concent (32.0-36.0) Red Cell Distribution Width 26.4 % (11.6-17.2) Platelet Count 291 TH/MM3 (150-450) Mean Platelet Volume 8.6 FL (7.0-11.0) Neutrophils (%) (Auto) 80.2 % (16.0-70.0) Lymphocytes (%) (Auto) 8.6 % (9.0-44.0) Monocytes (%) (Auto) 5.8 % (0.0-8.0) Eosinophils (%) (Auto) 4.8 % (0.0-4.0) Basophils (%) (Auto) 0.6 % (0.0-2.0) Neutrophils # (Auto) 14.5 TH/MM3 (1.8-7.7) Lymphocytes # (Auto) 1.6 TH/MM3 (1.0-4.8) Monocytes # (Auto) 1.0 TH/MM3 (0-0.9) Eosinophils # (Auto) 0.9 TH/MM3 (0-0.4) Basophils # (Auto) 0.1 TH/MM3 (0-0.2) CBC Comment AUTO DIFF Differential Comment AUTO DIFF CONFIRMED Ovalocytes 1+ (NORMAL) Serum Osmolality 305 MOSM/KG 299 MOSM/KG (275-295) (275-295) Potassium Level 3.7 MEQ/L (3.5-5.1) Test 04/27/16 04/28/16 04/28/16 20:00 01:35 05:00 Sodium Level 145 MEQ/L 147 MEQ/L 145 MEQ/L (136-145) (136-145) (136-145) Serum Osmolality 296 MOSM/KG 295 MOSM/KG (275-295) (275-295) Vancomycin Level Trough 18.7 MCG/ML (5.0-10.0) White Blood Count 15.0 TH/MM3 (4.0-11.0) Red Blood Count 3.39 MIL/MM3 (4.00-5.30) Hemoglobin 8.4 GM/DL (11.6-15.3) Hematocrit 25.9 % (35.0-46.0) Mean Corpuscular Volume 76.3 FL (80.0-100.0) Mean Corpuscular Hemoglobin 24.8 PG (27.0-34.0) Mean Corpuscular Hemoglobin 32.5 % Concent (32.0-36.0) Red Cell Distribution Width 26.8 % (11.6-17.2) Platelet Count 292 TH/MM3 (150-450) Mean Platelet Volume 8.3 FL (7.0-11.0) Neutrophils (%) (Auto) 81.0 % (16.0-70.0) Lymphocytes (%) (Auto) 7.2 % (9.0-44.0) Monocytes (%) (Auto) 6.8 % (0.0-8.0) Eosinophils (%) (Auto) 4.4 % (0.0-4.0) Basophils (%) (Auto) 0.6 % (0.0-2.0) Neutrophils # (Auto) 12.1 TH/MM3 (1.8-7.7) Lymphocytes # (Auto) 1.1 TH/MM3 (1.0-4.8) Monocytes # (Auto) 1.0 TH/MM3 (0-0.9) Eosinophils # (Auto) 0.7 TH/MM3 (0-0.4) Basophils # (Auto) 0.1 TH/MM3 (0-0.2) CBC Comment AUTO DIFF Differential Total Cells 100 Counted Neutrophils % (Manual) 80 % (16-70) Band Neutrophils % 5 % (0-6) Lymphocytes % 8 % (9-44) Monocytes % 3 % (0-8) Eosinophils % 4 % (0-4) Neutrophils # (Manual) 12.8 TH/MM3 (1.8-7.7) Differential Comment FINAL DIFF MANUAL Platelet Estimate NORMAL (NORMAL) Platelet Morphology Comment NORMAL (NORMAL) Potassium Level 3.0 MEQ/L (3.5-5.1) Chloride Level 113 MEQ/L (98-107) Carbon Dioxide Level 23.0 MEQ/L (21.0-32.0) Anion Gap 9 MEQ/L (5-15) Blood Urea Nitrogen 5 MG/DL (7-18) Creatinine 0.50 MG/DL (0.50-1.00) Estimat Glomerular Filtration 159 ML/MIN Rate (>89) Random Glucose 85 MG/DL (74-106) Calcium Level 8.2 MG/DL (8.5-10.1) Total Bilirubin 0.6 MG/DL (0.2-1.0) Aspartate Amino Transf 28 U/L (15-37) (AST/SGOT) Alanine Aminotransferase 28 U/L (10-53) (ALT/SGPT) Alkaline Phosphatase 84 U/L (45-117) Total Protein 5.3 GM/DL (6.4-8.2) Albumin 1.3 GM/DL (3.4-5.0) Result Diagram: 04/28/16 0500 04/28/16 0500 Microbiology Microbiology Date/Time Procedure Status Source Growth 04/24/16 10:34 Stool Occult Blood ([facility]) - Final Complete Stool Stool HEMOCCULT NEGATIVE 04/20blood cultureno growth 5 days 04/20sputum cultureno growth 04/20urine cultureno growth . Imaging Last Impressions Chest X-Ray 04/28/16 0600 Signed Impressions: Service Date/Time: Thursday, April 28, 2016 05:53 - CONCLUSION: Basilar airspace disease and pleural effusions similar to April 27. Endotracheal tube , nasogastric tube and left central lines are unchanged. Quinn Bateman MD Abdomen/Pelvis CT 04/24/16 1416 Signed Impressions: Service Date/Time: March 14:39 - CONCLUSION: Mild small bowel ileus with scattered air-fluid levels. Bibasilar lung consolidation with associated small effusions. Significant soft tissue fluid accumulation with edematous changes throughout the abdominal wall. Nasogastric tube in good position. Saqib Garcia MD Head CT 04/24/16 0000 Signed Impressions: Service Date/Time: March 14:39 - CONCLUSION: Persistent significant mass effect associated with the large left frontal temporal hematoma. No significant change in [id number] midline shift. Decreased density in the right frontal lobe which may indicate vascular compromise due to mass effect and a developing infarct. Stable ventricular system following ventriculostomy placement. Saqib Garcia MD Head CTA 04/22/16 0600 Signed Impressions: Service Date/Time: Friday, April 22, 2016 09:26 - CONCLUSION: 1. The intracranial circulation remains patent. The exam demonstrates significantly more edema surrounding the patient's large area of intraparenchymal hemorrhage on the left. There is at least 1.3 cm of left to right falcine shift. This is significantly worse when compared to the previous examination. This appears to be the result of worsening edema around the patient's intraparenchymal hemorrhage. Eric Castellanos MD Neck CTA 04/11/16 1151 Signed Impressions: Service Date/Time: Monday, April 11, 2016 12:01 - CONCLUSION: Negative for hemodynamically significant carotid stenosis. Ricardo Castellanos MD FACR Cerebral Arteriogram 04/11/16 0000 Signed Impressions: Service Date/Time: Monday, April 11, 2016 14:18 - CONCLUSION: 1. 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 This is the aneurysm felt responsible for the intracranial hemorrhage. 2. Small 4 mm left M1 segment aneurysm. Attempts at embolizing this aneurysm were unsuccessful due to the broad based nature of the aneurysm. Endovascular repair of this aneurysm could not be performed. Kennedy Thibodeaux Jr., MD Assessment and Plan Disease Oriented Problem List: (1) Acute spontaneous subarachnoid intracranial hemorrhage (2) Cerebral aneurysm rupture (3) Hypertension Symptom Scale: (1) Dyspnea Comment: Intubated for airway protection (2) Encephalopathy Comment: MCA hemorrhage, status post aneurysm rupture, status post IR coiling, status post decompressive craniotomy (3) Malnutrition Comment: +OGT, will require longer term feeding tube to meet nutritional requirements--plan for PEG tube Pertinent Non-Medical Issues *Additional pending family meeting tomorrow Psychosocial: Spiritual: Legal:Patient is not able to participate in decision-making due to clinical condition, not clear that she will regain this ability. She is not . Per [place] statutes legal decision making would fall to her 1 (or 2?) adult children. Also reported to be supported by siblings. Ethical issues impacting care: Important Contacts Solo Hoskins (daughter) [phone] Donna [id number] Brother Fei Pride [phone] Brother Kenn Pride Brother Jared Pride Brother Jamil [place] . 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 Status post coiling of one aneurysm. Continues to have elevated ICPs and poor neuro exam. May require craniotomy due to labile ICP and worsening edema. Will likely require prolonged hospital course and will be high risk for further complications/setbacks while supportive care continues. Will likely require tracheostomy and PEG tube placement for ongoing aggressive treatment. Not expected to regain independent function, will likely have significant deficits if she can survive acute course and may remain dependent for care. Code Status: Full Code Plan * Goals: Medical update provided today to daughter, GOALS REMAIN AGGRESSIVE. * Legal decision maker- per records patient is not . daughter indicates she is patient's only child . Per [place] statutes adult daughter Solo Hoskins= legal decision maker. She also supported by pt's multiple siblings. * Symptoms: --Encephalopathy-s/pMCA hemorrhage, status post aneurysm rupture, status post IR coiling//ICPs remaining elevated --->status post decompressive craniotomy left frontal temporal parietal 04/26 --Dyspnea- intubated for airway protection, sedated/no resp distress on mech vent. + suspected aspiration pneumonia, on abx coverage for// CXR= bibasilar consolidation/effusions --malnutrition -+OGT, will require longer term feeding tube to meet nutritional requirements--plan for PEG tube placement today 04/28 * Palliative care will continue to follow during hospital course as condition evolves, to assist patient/decision-maker with understanding of medical conditions, weighing benefits/burdens of treatment options, for clarification of goals of treatment. Additionally will assist with any symptoms of palliative concern Time Spent Total Floor Time (mins): 20 >50% Counseling/Coord of Care: Yes (discuss with RN, critical care attending) Attestation To help prompt me to consider important information that might be impacting today's encounter and assessment, information from prior notes written by myself or my colleagues may have been "brought forward" into today's note. My signature on this note, however, is an attestation that I personally performed the exam, history, and/or decision-making noted today, and, unless otherwise indicated, the interactions with patient, family, and staff as well as the review of records all occurred today. I also attest that the listed assessment and stated plan reflect my best clinical judgment today based on the combination of historical information, prior notes, and today's exam/ interactions. When time spent is documented, it refers only to time spent today by the signer, or if indicated, combined time spent today by collaborating physician/nurse practitioner. Ashley Wharton Apr 28, 2016 11:35
[2016-04-28] MEDS: NOREPINEPHRINE INJ 4 MG in SODIUM CHLOR 0.9% 250 ML INJ 250 ML IV SCH ×2 (14:08→22:52)
[2016-04-28] MEDS: 3% SALINE INJ 500 ML IV SCH ×2 (14:59→16:49)
--- NOTE | 2016-04-28 16:07 | HHI.CCPN ---
Subjective Remarks/Hospital Course SAH, unresponsive, malignant hypertension - This 46-year-old woman with a longstanding history of hypertension, was found unresponsive at her home and paramedics arrived to find her with shallow breathing and a Angelica coma scale of three. Systolic blood pressure was 290 and under bag mask ventilation. She was brought to the emergency department where she remained unresponsive and required endotracheal intubation, mechanical ventilation. A CT scan of the head showed a large left hemispheric intraparenchymal hemorrhage with subarachnoid blood as well. Subsequent evaluation confirmed a left middle cerebral artery aneurysm which appears to be the culprit lesion. She was brought immediately to the [facility] where we continued Cardene drip infusion for blood pressure control and placed arterial monitoring lines and central venous line. Electrolyte abnormalities were corrected, particularly severe hypokalemia. The ventilator was adjusted to maintain arterial CO2, between 35 and 40. She received Keppra loading intravenously and Nimotop through the nasogastric tube. Usual ICU monitoring was in place and arrangements were made, a ventriculostomy was placed, and transported expeditiously to interventional radiology where attempts will be made to coil the aneurysm. 04/12: Culprit (larger) aneurysm was coiled last evening. ICP acceptable with drainage bloody as expected. Withdraws 4 limbs to pain. 04/13: ICP starting to rise > 20, requiring vent manipulation, increased sedation, analgesia. 04/14: Intermittently ICP spiking >20, RR increased to 18, 50 mg of rocuronium 1. CT angiogram done today to rule out vasospasm 04/15: Remains heavily sedated for ICP control. Overall ICP control improved overnight-remained 12-14. Currently on propofol fentanyl and Versed. CT angiogram done yesterday 04/14/16 showed status post endovascular repair of left supraclinoid aneurysm, left M1 segment aneurysm stable no vasospasm. 04/16: Remains hypoxemic, FiO2 had to be increased to 70%, now down to 60%. Chest x-ray shows increasing right lower lobe infiltrate sputum with gram- negative rods. Blood pressure remains at target 04/17: ICP remains elevated at 22-25. Became hypothermic overnight, likely related to worsening sepsis. Repeat panculture ordered, and vancomycin 04/18: Labile hypertension. Start patient limits expanded to 150-190 systolic. Became more hypoxic now on 90% FiO2. Chest x-ray shows slight increase in right lower lobe infiltrate. Sodium at target 04/19: Remains critically ill with intermittent ICP elevation. ABG shows respiratory alkalosis, minute ventilation reduce which caused ICP to increase further. 3% saline restarted and 23% saline 1 bolus ordered. Chest x-ray shows slight improvement in the right lower lung infiltrate 04/20: ICP elevated to 31, 23% bolus given with improvement to 12-15. Low-grade fever with increase in white count to 16.4. Will send panculture. CTA brain in am 04/21: Remains critically ill with intermittent ICP elevation. ICP controlled with 23% bolus. Keeping sodium 150-160. CT head, CTA 04/22/1604/22: CT of the head shows evolving left frontoparietal hemorrhage with increasing midline shift 1.5 cm left to right. Intermittent ICP elevation was responsive to 23% saline. D/W Neurosurgery. 04/23: Intubated and ICP elevation up to 27, optimized on medical therapy and hyperosmolar therapy. Prognosis very poor according to neurosurgery. Per Dr. Ruiz, patient has suffered significant dominant hemisphere frontal temporal lobe hemorrhage and and consequent cerebral injury which reduces likelihood of functional recovery. Palliative care consulted-will meet with family today 04/24: Overnight high ICP elevations up to 40s. Currently 17-20. Family meeting with palliative care. Optimized on hyperosmolar therapy. Ct head per Dr. Meléndez- large frontal hemorrhage with mass effect, persistent midline shift 04/25: ICP remains high despite maximum hyperosmolar therapy. Family requests aggressive care. Dr. Meléndez is planning for left decompressive craniectomy 04/26: Patient is s/p Left frontotemporal parietal decompressive craniotomy and evacuation of temporal hematoma. ICP better controlled 04-09, remains heavily sedated 04/27: ICP remains better control, 11-12. No acute events overnight. Overnight off Cardene or Levophed. Sedation vacation not approved by neurosurgery yet 04/28: Remains intubated sedated, ICP well control, CT of the head pending. Status post PEG tube placement, plan is for tracheostomy tomorrow. Increased 3 % saline to 30 mL per hour Objective - Vital Signs Date Time Temp Pulse Resp B/P Pulse Ox O2 Delivery O2 Flow Rate FiO2 04/28/16 14:00 80 04/28/16 12:00 40 04/28/16 12:00 98.0 14 185/92 100 Intake and Output 04/27/16 04/27/16 04/28/16 08:00 16:00 00:00 Intake Total 2486 ml 1924 ml 1991 ml Output Total 2246 ml 1936 ml 2278 ml Balance 240 ml -12 ml -287 ml Result Diagram: 04/28/16 0500 04/28/16 1247 Other Results Laboratory Tests Test 04/11/16 04/11/16 04/12/16 13:06 20:44 05:58 Blood Gas Puncture Site ART LINE ART LINE ART LINE Blood Gas Patient Temperature 98.6 98.6 98.6 Blood Gas HCO3 20 mmol/L 21 mmol/L 19 mmol/L (22-26) (22-26) (22-26) Blood Gas Base Excess -4.2 mmol/L -3.1 mmol/L -4.9 mmol/L (-2-2) (-2-2) (-2-2) Blood Gas Oxygen Saturation 98 % (90-100) 98 % (90-100) 97 % (90-100) Arterial Blood pH 7.40 7.42 7.42 (7.380-7.420) (7.380-7.420) (7.380-7.420) Arterial Blood Partial 33 mmHg (38-42) 33 mmHg (38-42) 30 mmHg (38-42) Pressure CO2 Arterial Blood Partial 372 mmHg 450 mmHg 135 mmHg Pressure O2 (61-120) (61-120) (61-120) Arterial Blood Oxygen Content 11.0 Vol % 10.2 Vol % 15.4 Vol % (12.0-20.0) (12.0-20.0) (12.0-20.0) Arterial Blood 1.5 % (0-4) 1.4 % (0-4) 1.3 % (0-4) Carboxyhemoglobin Arterial Blood Methemoglobin 1.2 % (0-2) 1.2 % (0-2) 1.1 % (0-2) Blood Gas Hemoglobin 7.3 G/DL 6.5 G/DL 11.2 G/DL (12.0-16.0) (12.0-16.0) (12.0-16.0) Oxygen Delivery Device VENT VENTILATOR VENTILATOR Blood Gas Ventilator Setting PRVC/20RATE/500/5PEE PRVC/AC PRVC/AC Blood Gas Inspired Oxygen 100 % 100 % 40 % Objective Remarks Infusions Propofol Fentanyl Versed Nimbex-DCd 04/21 GEN: Middle-aged female who is intubated heavily sedated, critically ill. Craniotomy dressing in place HEENT: Atraumatic. EVD in place. Pupils 2mm nonreactive. Tongue swollen and protuberant NECK: Supple. No resistance to motion. Orally intubated. Tongue is protuberant LUNGS: Clear, no wheezes or crackles. HEART: Normal S1-S2, tachycardia, prominent systolic murmur at apex. ABDOMEN: Soft, nontender, nondistended, no guarding, bowel sounds present. EXTREMITIES: Warm, well-perfused, foot and wrist pulses intact. NEUROLOGIC: Pupils 2 mm nonreactive, positive corneal. No withdrawal to pain. ICP 8-[address] A/P Assessment and Plan Acute subarachnoid hemorrhage, left middle cerebral artery aneurysm Large left frontal hemorrhage Intracranial hypertension Acute respiratory failure on mechanical ventilation RLL pneumonia/E Coli in sputum Sepsis Acute encephalopathy Malignant hypertension Status post coiling of MCA aneurysm Severe LV concentric hypertrophy. Probable HOCM Hypokalemia History of hypertension Lactic acidosis PLAN: NEURO: Acute subarachnoid hemorrhage, left middle cerebral artery aneurysm Intracranial hypertension, uncontrolled Acute encephalopathy s/p left decompressive craniotomy 04/25/16 and evacuation of temporal hematoma s/p endovascular coiling of ruptured cerebral aneurysm Patient has suffered significant dominant hemisphere frontal temporal lobe hemorrhage and consequent cerebral injury which reduces likelihood of functional recovery. Family request aggressive care and Dr. Meléndez performed left decompressive craniotomy 04/25/16 and evacuation of temporal hematoma Sedation/analgesia (Propofol, Versed and Fentanyl) to help control ICP. Mild hypervolemia using CVP. No spontaneous awakening trial until approved by N/S. f/u CT head today 04/28/16 Continue Ventricular drain. Keppra Nimotop. Treat fever aggressively. Nimbex for ICP control-DCd 04/21/16 23% PRN for ICP >20. Keep Na 150-155. 3% gtt at [address] angiogram done 04/14, 04/16/16, 04/22/16 showed status post endovascular repair of left supraclinoid aneurysm, left M1 segment aneurysm stable no vasospasm. Continue with hypervolemia and hypertension for vasospasm prevention. Target SBP 180 for vasospasm prophylaxis. Palliative care following remains full code CV: Uncontrolled HTN, now permissive Severe LV concentric hypertrophy. Probable HOCM Target SBP 150-190 for vasospasm prophylaxis. Maintain preload, follow CVP, for hypervolemia. Use Levophed/Cardene PRN Continue Nimotop (Recommendation for consideration of septal ablation on echo, patient is not a candidate for surgical intervention due to devastating neuro injury) RESP: Acute respiratory failure HCAP PC/AC vent mode, adjust vent rate to keep EtCO2 28-33. Nebs prn and scheduled. Vent bundle. No vent weaning due to high ICP, severe encephalopathy Tracheostomy planned for am 04/29 : Rebollar required for hourly output. Keep UO more than 30 mL per hour GI: Tube feeds held for PEG today, keep NPO until trach in am Lactulose to 30 ml q8. Dulcolax suppository PRN, Having BM GI consulted for possible PEG tube placement HEME: Serial Hgb. Monitor CBC ID: Sepsis HCAP with E Coli, Haemophilus Sputum cx EColi, haemophilus and blood cultures neg to date. On Zosyn 4.5 GM IV q6 04/15/16. Levaquin was added 04/16/16 to cover for Stenotrophomonas -DCd 04/19, restarted again 04/20/16- 04/26/16 Repeat panculture with blood urine and sputum cultures 04/17/16 negative to date CXR bilateral infiltrates, with leukocytosis and brown sputum Resend cultures due to low grade fever and increased WBC 04/20 -NEG to date ENDO: SSI for euglycemia, avoid hypokalemia, hypo Mag PX: SCDs. Protonix. Cleared by to use Lovenox for chemical DVT prophylaxis on 04/19/16 Overall impression: Severe SAH and left parenchymal bleed and ruptured aneurysm, with cerebral edema , elevated ICP. Now intractable ICP elevation, plan for left decompressive hemicraniectomy today. HCAP and severe sepsis. CT of the head shows new left frontoparietal hemorrhage. Remains critically ill and prognosis guarded at best. Prognosis poor with L frontal hemorrhage- , now with left decompressive craniotomy and evacuation of the bleed. palliative care following Critical care 45 mins, d/w Mary Martinez MD Apr 28, 2016 16:06
[2016-04-28] MEDS ORDERED: MISC INFORMATION OTHER ONE (16:15)
--- NOTE | 2016-04-28 17:24 | MB ---
cc: CATRACHITO EDWARDS M.D. DATE OF CONSULTATION: 04/28/2016. REASON FOR CONSULTATION: Tracheostomy tube placement. HISTORY OF PRESENT ILLNESS: This is an unfortunate 46-year-old -[place] woman who developed subarachnoid hemorrhage related to malignant hypertension who has undergone a left-sided craniotomy for therapy for intracranial hypertension. The patient's intracranial pressures have improved. The patient's family member has desired aggressive care. Tracheostomy tube placement has been requested. Obtaining her history from the chart: ALLERGIES: THE PATIENT HAS NO KNOWN DRUG ALLERGIES. PAST MEDICAL HISTORY: History of malignant hypertension. She has been on antihypertensive medications in the past. SOCIAL HISTORY: Unobtainable. REVIEW OF SYSTEMS: Unobtainable. PHYSICAL EXAMINATION: GENERAL: A middle-aged -[place] woman who is intubated ventilated and sedated. HEAD, EYES, EARS, NOSE, THROAT: She has had signs of surgery with yaneth in her scalp. She has an intracranial pressure monitor exiting the scalp. She has an endotracheal tube in place. She has an orogastric tube in place. Her tongue is protruding through her open mouth and is covered with a saline-soaked gauze. NECK: She has a palpable trachea above the sternal notch. She has a left side central line in place. RESPIRATORY: She has equal bilateral breath sounds. HEART: Her heart sounds show a holosystolic 4-5/6 ejection murmur. ABDOMEN: Abdomen soft and nondistended without scars. EXTREMITIES: Her extremities are swollen. She has sequential compression devices and Multi Podus boots in place. Both of her extremities are elevated on pillows. NEUROLOGIC: Neurologically she is obtunded. LABORATORY STUDIES: Her laboratory values showed a hemoglobin of 8.4 and a platelet count of 292,000. Her coagulation studies show an INR of 1.1 on the 25 of April and a PTT of 31.9. IMAGING STUDIES: She has a chest x-ray from 04/28/2016 which showed basilar airspace disease, pleural effusions, endotracheal tube, orogastric tube and left side central lines unchanged. ASSESSMENT: An unfortunate 46-year-old woman who is obtunded following intracerebral hemorrhage related to malignant hypertension. The patient has been requested to have a tracheostomy tube placed. I believe she is a reasonable candidate for percutaneous tracheostomy as long as the patient can be appropriately positioned. At this time, plan is being made for percutaneous tracheostomy on 04/29/2016. The risks of bleeding, infection, pneumothorax, and malpositioning of the tracheostomy tube. The plan is for bedside percutaneous tracheostomy under direct bronchoscopic visualization. MD KIMI Chou/WAYNE /3:15 PM /5:15 PM
[2016-04-28] MEDS: LEVOFLOXACIN 750 MG PREMIX INJ 150 ML IV SCH (18:14)
--- NOTE | 2016-04-28 18:22 | RADRPT ---
EXAM DATE/TIME: 04/28/2016 17:32 [facility] COMPARISON: CT BRAIN W/O CONTRAST, April 24, 2016, 14:39. INDICATIONS : Post operative craniotomy and drainage placement. RADIATION DOSE: 64.89 CTDIvol (mGy) MEDICAL HISTORY : Non-responsive. SURGICAL HISTORY : Non-responsive. ENCOUNTER: Subsequent ACUITY: 1 week PAIN SCALE: Non-responsive LOCATION: cranial TECHNIQUE: Multiple contiguous axial images were obtained of the head. Using automated exposure control and adj ustment of the mA and/or kV according to patient size, radiation dose was kept as low as reasonably a chievable to obtain optimal diagnostic quality images. FINDINGS: There is now an interrum left temporal parietal craniotomy a temporal catheter in place. The ventricu lostomy catheter via a right frontal yina hole remains in place terminating at or near the foramen. T he intra-and extra axial hemorrhage remains apparent and the left to right midline shift which was 1. 5 cm is now 7 or 8 mm therefore reduced. CONCLUSION: Extensive left temporal and parietal craniotomy. Persistent hemorrhage and edema and left hemisphere however this is somewhat decompressed with left to right midline shift diminished from 1.5 now 7 or 8 mm. Yoni Farah MD on April 28, 2016 at 18:15 Board Certified Radiologist. This report was verified electronically.
[2016-04-29] VITALS (19 sets, daily range): BP systolic 149–173; BP diastolic 64–83; PULSE 64–85; RESP 14; TEMP 97.6–98.2; O2SAT 99–100
[2016-04-29] MEDS: 3% SALINE INJ 500 ML IV SCH ×3 (00:54→12:02)
[2016-04-29] MEDS: METOPROLOL TARTRATE 25 MG TAB PO SCH ×4 (01:36→20:36)
[2016-04-29] MEDS: VANCOMYCIN INJ 1,500 MG in SODIUM CHLORID 0.9% 500 ML INJ 500 ML IV SCH ×2 (01:36→14:13)
[2016-04-29] MEDS: PROPOFOL 1000 MG/100 ML IV SCH ×6 (01:37→23:30)
[2016-04-29] MEDS: CHLORHEXIDINE GLUCONATE 2 % 1 PACK (2 CLOTHS) TOP SCH (03:43)
[2016-04-29] MEDS: niMODipine 30 MG CAP PO SCH ×6 (03:46→23:30)
[2016-04-29] MEDS: PIPERACIL-TAZO 4.5 GM PREMIX 100 ML IV SCH ×4 (03:46→20:36)
[2016-04-29 05:24] LABS: AUTOMATED NEUTROPHIL # 12.2 TH/MM3 (1.8-7.7); BASOPHIL # 0.1 TH/MM3 (0-0.2); BASOPHIL % 0.6 % (0.0-2.0); EOSINOPHIL # 0.7 TH/MM3 (0-0.4); EOSINOPHIL % 4.5 % (0.0-4.0); HEMATOCRIT 29.1 % (35.0-46.0); LYMPH % 9.7 % (9.0-44.0); LYMPHOCYTE # 1.5 TH/MM3 (1.0-4.8); MEAN CELL VOLUME 77.4 FL (80.0-100.0); MEAN CORPUSCULAR HEMOGLOBIN 24.5 PG (27.0-34.0); MEAN CORPUSCULAR HGB CONC 31.7 % (32.0-36.0); MONO % 8.1 % (0.0-8.0); NEUT % 77.1 % (16.0-70.0); PLATELET COUNT 362 TH/MM3 (150-450); RED BLOOD COUNT 3.76 MIL/MM3 (4.00-5.30); WHITE BLOOD COUNT 15.8 TH/MM3 (4.0-11.0)
--- NOTE | 2016-04-29 05:26 | RADRPT ---
EXAM DATE/TIME: 04/29/2016 04:24 [facility] COMPARISON: CHEST SINGLE AP, April 28, 2016, 5:53. INDICATIONS : Respiratory disease. MEDICAL HISTORY : Hypertension. SURGICAL HISTORY : Tubal ligation. ENCOUNTER: Subsequent ACUITY: 2 weeks PAIN SCORE: Non-responsive. LOCATION: Bilateral chest FINDINGS: A single view of the chest demonstrates persistent consolidation in the right lower lobe. ET tube it was occluded central line are in good position.. The cardiomediastinal contours are unremarkable. O sseous structures are intact. CONCLUSION: Tubes and catheters in good position. Some persistent consolidation right lower lobe Sunny Berger MD on April 29, 2016 at 5:23 Board Certified Radiologist. This report was verified electronically.
[2016-04-29 05:40] LABS: ALKALINE PHOSPHATASE 101 U/L (45-117); ALT (GPT) 28 U/L (10-53); ANION GAP 8 MEQ/L (5-15); AST (GOT) 28 U/L (15-37); BICARBONATE 24.7 MEQ/L (21.0-32.0); BLOOD UREA NITROGEN 4 MG/DL (7-18); CHLORIDE 111 MEQ/L (98-107); GLOMERULAR FILTRATION RATE 167 ML/MIN (>89); MAGNESIUM 1.3 MG/DL (1.5-2.5); POTASSIUM 3.3 MEQ/L (3.5-5.1); SODIUM (NA) 144 MEQ/L (136-145); TOTAL BILIRUBIN ADULT 0.6 MG/DL (0.2-1.0)
[2016-04-29 05:46] LABS: HEMO FLAGS AUTO DIFF
[2016-04-29] MEDS: METOCLOPRAMIDE HCL 10 MG/2 ML VIAL IV PUSH SCH ×3 (05:50→21:50)
[2016-04-29] MEDS: POTASSIUM CHLOR 40 MEQ PREMIX 100 ML IV PRN (06:22)
[2016-04-29] MEDS: MAGNESIUM SULFATE INJ 2 GM in SODIUM CHLORIDE 0.9% INJ 96 ML IV PRN (06:39)
[2016-04-29 06:48] LABS: KERATOCYTES OCC (NORMAL); OVALOCYTES 1+ (NORMAL); SCAN/DIFF AUTO DIFF CONFIRMED
[2016-04-29] MEDS: levETIRAcetam 500 MG/NS 100 ML IV SCH ×4 (08:37→20:36)
[2016-04-29] MEDS: FLUCONAZOLE 100 MG TAB PO SCH (08:37)
[2016-04-29] MEDS: PANTOPRAZOLE SODIUM 40 MG VIAL IV SCH (08:37)
[2016-04-29] MEDS: LACTOBACILLUS ACIDOPHILUS TAB PO SCH (08:37)
[2016-04-29] MEDS: SODIUM CHLORIDE 0.9% FLUSH 5 ML FLUSH IVF SCH ×2 (09:00→21:00)
[2016-04-29] MEDS: LACTULOSE SYRUP 20 GM/30 ML CUP PO SCH (09:00)
--- NOTE | 2016-04-29 09:22 | HHI.NSPN ---
(Genna Madrid) History Chief Complaint: status post coil for aneurysm (Genna Madrid) Interval History 04/12/16: Patient had an aneurysm coiled yesterday, intubated and sedated, ICP stable overnight 04/13/16: Increased ICP overnight, improved after a 23% saline bolus 04/14/16: ICP stable overnight 04/15/16: ICP stable, CTA stable no vasospasm 04/16/16: ICP slight increase overnight now stabilized, intubated and sedated 04/17/16: ICP increased yesterday afternoon, repeat CTA and CT stable, no vasospasm, no new hemorrhage, hypothermia overnight 04/21/16: increasing ICP over the weekend, getting 23% every 6 hours PRN. 04/22/16: ICP responding over night to 23% saline, CT and CTA planned this am. Nimbex off since yesterday. 04/23/16: ICP stable overnight, SBP increasing today RN adjusting pressors, HGB improved after 2 units of PRBC, no signs of active bleeding 04/24/16: ICP increased overnight with stimulation but not sustained, low HGB again today receiving PRBC this am 04/25/16: ICP max 38 overnight, currently 10, no family at bedside. 04/26/16: She has ventriculostomy drain in place. She underwent left decompressive craniectomy yesterday 04/[address] Meléndez due to elevated ICPs. Today, ICPs improved, currently 4. 04/27/16: intermittent spikes in ICPs overnight in low 20's controlled with hyperosmotic bolus. Currently 9. well sedated. 04/28/16: ICP stable between 9-14 per RN. EVD draining blood tinged CSF, flap firm non-pulsatile 04/29/16: ICP stable overnight, PEG yesterday, Trach today. (Genna Madrid) Exam Results Vital Signs Date Time Temp Pulse Resp B/P Pulse Ox O2 Delivery O2 Flow Rate FiO2 04/29/16 08:49 100 40 04/29/16 06:00 77 04/29/16 04:00 97.8 14 160/68 Intake and Output 04/28/16 04/28/16 04/29/16 08:00 16:00 00:00 Intake Total 1806 ml 1554 ml 1995 ml Output Total 3138 ml 2575 ml 2360 ml Balance -1332 ml -1021 ml -365 ml (Genna Madrid) Physical Examination Ms. Pride is intubated and sedated. EVD in place at 0 cmH20 draining well. ICPs = 2 CPP: 105. Incision is well approximated. [place] intact. Flap soft and non-pulsatile. Wound clean. JOE drains x 2 intact. Pupils 2 mm nonreactive. Right lateral gaze. Mild oculocephalics and mild corneal No withdrawals x 4 extremities to deep pain. (Genna Madrid) Lab, Micro, Other Results Last Impressions Chest X-Ray 04/29/16 0600 Signed Impressions: Service Date/Time: Friday, April 29, 2016 04:24 - CONCLUSION: Tubes and catheters in good position. Some persistent consolidation right lower lobe Sunny Berger MD Head CT 04/28/16 0000 Signed Impressions: Service Date/Time: Thursday, April 28, 2016 17:32 - CONCLUSION: Extensive left temporal and parietal craniotomy. Persistent hemorrhage and edema and left hemisphere however this is somewhat decompressed with left to right midline shift diminished from 1.5 now 7 or 8 mm. Yoni Farah MD Abdomen/Pelvis CT 04/24/16 1416 Signed Impressions: Service Date/Time: March 14:39 - CONCLUSION: Mild small bowel ileus with scattered air-fluid levels. Bibasilar lung consolidation with associated small effusions. Significant soft tissue fluid accumulation with edematous changes throughout the abdominal wall. Nasogastric tube in good position. Saqib Garcia MD Head CTA 04/22/16 0600 Signed Impressions: Service Date/Time: Friday, April 22, 2016 09:26 - CONCLUSION: 1. The intracranial circulation remains patent. The exam demonstrates significantly more edema surrounding the patient's large area of intraparenchymal hemorrhage on the left. There is at least 1.3 cm of left to right falcine shift. This is significantly worse when compared to the previous examination. This appears to be the result of worsening edema around the patient's intraparenchymal hemorrhage. Eric Castellanos MD Neck CTA 04/11/16 1151 Signed Impressions: Service Date/Time: Monday, April 11, 2016 12:01 - CONCLUSION: Negative for hemodynamically significant carotid stenosis. Ricardo Castellanos MD FACR Cerebral Arteriogram 04/11/16 0000 Signed Impressions: Service Date/Time: Monday, April 11, 2016 14:18 - CONCLUSION: 1. 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 This is the aneurysm felt responsible for the intracranial hemorrhage. 2. Small 4 mm left M1 segment aneurysm. Attempts at embolizing this aneurysm were unsuccessful due to the broad based nature of the aneurysm. Endovascular repair of this aneurysm could not be performed. Kennedy Thibodeaux Jr., MD Laboratory Tests Test 04/28/16 04/28/16 04/29/16 12:47 20:45 04:45 Sodium Level 146 MEQ/L 144 MEQ/L 144 MEQ/L Serum Osmolality 296 MOSM/KG 300 MOSM/KG 301 MOSM/KG White Blood Count 15.8 TH/MM3 Red Blood Count 3.76 MIL/MM3 Hemoglobin 9.2 GM/DL Hematocrit 29.1 % Mean Corpuscular Volume 77.4 FL Mean Corpuscular Hemoglobin 24.5 PG Mean Corpuscular Hemoglobin 31.7 % Concent Red Cell Distribution Width 27.0 % Platelet Count 362 TH/MM3 Mean Platelet Volume 8.6 FL Neutrophils (%) (Auto) 77.1 % Lymphocytes (%) (Auto) 9.7 % Monocytes (%) (Auto) 8.1 % Eosinophils (%) (Auto) 4.5 % Basophils (%) (Auto) 0.6 % Neutrophils # (Auto) 12.2 TH/MM3 Lymphocytes # (Auto) 1.5 TH/MM3 Monocytes # (Auto) 1.3 TH/MM3 Eosinophils # (Auto) 0.7 TH/MM3 Basophils # (Auto) 0.1 TH/MM3 CBC Comment AUTO DIFF Differential Comment AUTO DIFF CONFIRMED Ovalocytes 1+ Keratocytes OCC Potassium Level 3.3 MEQ/L Chloride Level 111 MEQ/L Carbon Dioxide Level 24.7 MEQ/L Anion Gap 8 MEQ/L Blood Urea Nitrogen 4 MG/DL Creatinine 0.48 MG/DL Estimat Glomerular Filtration 167 ML/MIN Rate Random Glucose 92 MG/DL Calcium Level 8.6 MG/DL Magnesium Level 1.3 MG/DL Total Bilirubin 0.6 MG/DL Aspartate Amino Transf 28 U/L (AST/SGOT) Alanine Aminotransferase 28 U/L (ALT/SGPT) Alkaline Phosphatase 101 U/L Total Protein 6.2 GM/DL Albumin 1.6 GM/DL (Genna Madrid) Medical Decision Making Impression and Plan Impression: 1. S/P endovascular coiling of ruptured cerebral aneurysm. 04/14/16 CT angiogram stable: Status post endovascular repair of left supraclinoid aneurysm. Left M1 segment aneurysm stable 04/16/[address] and CTA stable. No vasospasm, no new hemorrhage. 04/22/16: Head CT 14mm left to right shift, and CTA perfusion, no vasospasm 04/28/16: stable, shift decreased to 7mm Plan: CSF culture from the EVD may resume Lovenox from a neurosurgery standpoint after the trach is placed Try sedation vacations tomm 05/01 Continue ventilatory support and sedation. Maintain ventriculostomy at 10 cmH20 Nimodipine for vasospasm prophylaxis. Maintain systolic blood pressure 180-200 range Continue to monitor sodium level, keep 145-155. 23% saline for ICP over 25. Hold for Na+ greater than 160. [place] Whipper following for medical management Keppra for seizure prophylaxis. Protonix for ulcer prophylaxis Tube feeds as tolerated. (Genna Madrid) Attending Statement On the date of this note, the undersigned had a [id number] encounter with the patient. I personally examined the patient, obtained pertinent history, and reviewed the electronic medical record including pertinent laboratory results and imaging studies. I personally developed the treatment plan and perform medical decision making. All of the above was performed in the presence of the physician's grooming assistant, who has scribed my findings into the medical record as noted above. (Sherwin Meléndez MD) Genna Madrid Apr 29, 2016 09:22 Sherwin Meléndez MD Apr 29, 2016 09:44
[2016-04-29] MEDS: MIDAZOLAM 100 MG/ML INJ 100 ML IV SCH ×2 (12:02→21:04)
[2016-04-29] MEDS: fentaNYL DRIP 250 ML IV SCH ×2 (12:02→21:04)
[2016-04-29] MEDS ORDERED: ROCURONIUM INJ 50 MG/5 ML VIAL ONE (13:04)
--- NOTE | 2016-04-29 13:34 | PD.PROCEDR ---
Procedure Note Procedure Procedure: Diagnostic Fiberoptic Bronchoscopy Diagnosis: Acute hypoxic respiratory failure, subarachnoid hemorrhage Indications: Percutaneous dilation tracheostomy Consent: Written consent was obtained Anesthesia: Versed 10 mg, propofol 80 mcg/kg/min, fentanyl 150 mcg/min, rocuronium 100 mg. Description of the Procedure: The patient was sedated and mechanically ventilated. The patient was placed on 100% FIO2 and a volume control mode of ventilation. The fiberoptic bronchoscopy was inserted via 8.0 endotracheal tube. The trachea, right and left mainstem bronchi, and sub-segmental bronchi were evaluated. The endobronchial anatomy was normal. Findings: There was a small amount of thin white secretions in bilateral bronchi. This cleared easily. Under direct fiberoptic visualization, the needle and guidewire of the tracheostomy procedure was visualized in the lumen of the trachea. Direct visualization of dilation and 8.0 Shiley percutaneous tracheostomy was seen. Please see separate per continues tracheostomy procedure note for details on the procedure. A reevaluation of the conclusion of the procedure demonstrated minimal blood and secretions in the airway. BAL samples: BAL samples were not sent The patient tolerated the procedure well with no hemodynamic instability or hypoxia. There were no immediate complications noted. At the conclusion of the procedure, the patient was placed back on their pre-procedure ventilatory settings. There was minimal EBL. A chest x-ray has been ordered. I personally performed the procedure. Nicanor Edward MD Apr 29, 2016 13:34
--- NOTE | 2016-04-29 14:05 | RADRPT ---
EXAM DATE/TIME: 04/29/2016 13:22 [facility] COMPARISON: CHEST SINGLE AP, April 29, 2016, 4:24. INDICATIONS : Post trach placement. MEDICAL HISTORY : Hypertension. Subarachnoid hemorrhage. SURGICAL HISTORY : None. ENCOUNTER: Subsequent ACUITY: 1 day PAIN SCORE: Non-responsive. LOCATION: chest FINDINGS: ET tube has been removed with placement of a tracheostomy without complication and no evidence of pne umothorax. Chest is otherwise stable left subclavian venous catheter in place terminating at the midl ine with bibasilar densities on the right most likely pure pleural effusion left effusion and lower l obe consolidation with some degree of volume loss. CONCLUSION: Placement of tracheostomy without complication and no pneumothorax. Otherwise stable chest. Yoni Farah MD on April 29, 2016 at 14:02 Board Certified Radiologist. This report was verified electronically.
[2016-04-29] MEDS: LEVOFLOXACIN 750 MG PREMIX INJ 150 ML IV SCH (16:47)
--- NOTE | 2016-04-29 17:25 | HHI.CCPN ---
Subjective Remarks/Hospital Course SAH, unresponsive, malignant hypertension - This 46-year-old woman with a longstanding history of hypertension, was found unresponsive at her home and paramedics arrived to find her with shallow breathing and a Angelica coma scale of three. Systolic blood pressure was 290 and under bag mask ventilation. She was brought to the emergency department where she remained unresponsive and required endotracheal intubation, mechanical ventilation. A CT scan of the head showed a large left hemispheric intraparenchymal hemorrhage with subarachnoid blood as well. Subsequent evaluation confirmed a left middle cerebral artery aneurysm which appears to be the culprit lesion. She was brought immediately to the [facility] where we continued Cardene drip infusion for blood pressure control and placed arterial monitoring lines and central venous line. Electrolyte abnormalities were corrected, particularly severe hypokalemia. The ventilator was adjusted to maintain arterial CO2, between 35 and 40. She received Keppra loading intravenously and Nimotop through the nasogastric tube. Usual ICU monitoring was in place and arrangements were made, a ventriculostomy was placed, and transported expeditiously to interventional radiology where attempts will be made to coil the aneurysm. 04/12: Culprit (larger) aneurysm was coiled last evening. ICP acceptable with drainage bloody as expected. Withdraws 4 limbs to pain. 04/13: ICP starting to rise > 20, requiring vent manipulation, increased sedation, analgesia. 04/14: Intermittently ICP spiking >20, RR increased to 18, 50 mg of rocuronium 1. CT angiogram done today to rule out vasospasm 04/15: Remains heavily sedated for ICP control. Overall ICP control improved overnight-remained 12-14. Currently on propofol fentanyl and Versed. CT angiogram done yesterday 04/14/16 showed status post endovascular repair of left supraclinoid aneurysm, left M1 segment aneurysm stable no vasospasm. 04/16: Remains hypoxemic, FiO2 had to be increased to 70%, now down to 60%. Chest x-ray shows increasing right lower lobe infiltrate sputum with gram- negative rods. Blood pressure remains at target 04/17: ICP remains elevated at 22-25. Became hypothermic overnight, likely related to worsening sepsis. Repeat panculture ordered, and vancomycin 04/18: Labile hypertension. Start patient limits expanded to 150-190 systolic. Became more hypoxic now on 90% FiO2. Chest x-ray shows slight increase in right lower lobe infiltrate. Sodium at target 04/19: Remains critically ill with intermittent ICP elevation. ABG shows respiratory alkalosis, minute ventilation reduce which caused ICP to increase further. 3% saline restarted and 23% saline 1 bolus ordered. Chest x-ray shows slight improvement in the right lower lung infiltrate 04/20: ICP elevated to 31, 23% bolus given with improvement to 12-15. Low-grade fever with increase in white count to 16.4. Will send panculture. CTA brain in am 04/21: Remains critically ill with intermittent ICP elevation. ICP controlled with 23% bolus. Keeping sodium 150-160. CT head, CTA 04/22/1604/22: CT of the head shows evolving left frontoparietal hemorrhage with increasing midline shift 1.5 cm left to right. Intermittent ICP elevation was responsive to 23% saline. D/W Neurosurgery. 04/23: Intubated and ICP elevation up to 27, optimized on medical therapy and hyperosmolar therapy. Prognosis very poor according to neurosurgery. Per Dr. Ruiz, patient has suffered significant dominant hemisphere frontal temporal lobe hemorrhage and and consequent cerebral injury which reduces likelihood of functional recovery. Palliative care consulted-will meet with family today 04/24: Overnight high ICP elevations up to 40s. Currently 17-20. Family meeting with palliative care. Optimized on hyperosmolar therapy. Ct head per Dr. Meléndez- large frontal hemorrhage with mass effect, persistent midline shift 04/25: ICP remains high despite maximum hyperosmolar therapy. Family requests aggressive care. Dr. Meléndez is planning for left decompressive craniectomy 04/26: Patient is s/p Left frontotemporal parietal decompressive craniotomy and evacuation of temporal hematoma. ICP better controlled 04-09, remains heavily sedated 04/27: ICP remains better control, 11-12. No acute events overnight. Overnight off Cardene or Levophed. Sedation vacation not approved by neurosurgery yet 04/28: Remains intubated sedated, ICP well control, CT of the head pending. Status post PEG tube placement, plan is for tracheostomy tomorrow. Increased 3 % saline to 30 mL per hour. 04/29: Ventric raised to 10. Will start SBTs. PEG placed, start TFs. Trach in place. Clean, dry. Objective - Vital Signs Date Time Temp Pulse Resp B/P Pulse Ox O2 Delivery O2 Flow Rate FiO2 04/29/16 16:00 97.6 80 14 149/64 99 04/29/16 16:00 50 Intake and Output 04/28/16 04/28/16 04/28/16 07:59 15:59 23:59 Intake Total 1806 ml 1554 ml 1995 ml Output Total 3138 ml 2575 ml 2360 ml Balance -1332 ml -1021 ml -365 ml Result Diagram: 04/29/16 0445 04/29/16 0445 Other Results Laboratory Tests Test 04/11/16 04/11/16 04/12/16 13:06 20:44 05:58 Blood Gas Puncture Site ART LINE ART LINE ART LINE Blood Gas Patient Temperature 98.6 98.6 98.6 Blood Gas HCO3 20 mmol/L 21 mmol/L 19 mmol/L (22-26) (22-26) (22-26) Blood Gas Base Excess -4.2 mmol/L -3.1 mmol/L -4.9 mmol/L (-2-2) (-2-2) (-2-2) Blood Gas Oxygen Saturation 98 % (90-100) 98 % (90-100) 97 % (90-100) Arterial Blood pH 7.40 7.42 7.42 (7.380-7.420) (7.380-7.420) (7.380-7.420) Arterial Blood Partial 33 mmHg (38-42) 33 mmHg (38-42) 30 mmHg (38-42) Pressure CO2 Arterial Blood Partial 372 mmHg 450 mmHg 135 mmHg Pressure O2 (61-120) (61-120) (61-120) Arterial Blood Oxygen Content 11.0 Vol % 10.2 Vol % 15.4 Vol % (12.0-20.0) (12.0-20.0) (12.0-20.0) Arterial Blood 1.5 % (0-4) 1.4 % (0-4) 1.3 % (0-4) Carboxyhemoglobin Arterial Blood Methemoglobin 1.2 % (0-2) 1.2 % (0-2) 1.1 % (0-2) Blood Gas Hemoglobin 7.3 G/DL 6.5 G/DL 11.2 G/DL (12.0-16.0) (12.0-16.0) (12.0-16.0) Oxygen Delivery Device VENT VENTILATOR VENTILATOR Blood Gas Ventilator Setting PRVC/20RATE/500/5PEE PRVC/AC PRVC/AC Blood Gas Inspired Oxygen 100 % 100 % 40 % Objective Remarks Infusions Propofol Fentanyl Versed weaning GEN: Middle-aged female who is intubated and sedated, critically ill. Craniotomy dressing in place, dry, clean HEENT: Atraumatic. EVD in place. Pupils 2 mm nonreactive. Tongue swollen and moderately protuberant NECK: Supple. No resistance to motion. Trach in place. LUNGS: Clear, no wheezes or crackles. HEART: Normal S1-S2, tachycardia, 4/6 systolic murmur LSB to apex. ABDOMEN: Soft, nontender, nondistended, no guarding, bowel sounds active. EXTREMITIES: Warm, well-perfused. NEUROLOGIC: Pupils 2 mm nonreactive, positive corneal. No withdrawal to pain. ICP 8-[address] at 10. A/P Assessment and Plan Acute subarachnoid hemorrhage, left middle cerebral artery aneurysm Large left frontal hemorrhage Intracranial hypertension Acute respiratory failure on mechanical ventilation RLL pneumonia/E Coli in sputum Sepsis Acute encephalopathy Malignant hypertension Status post coiling of MCA aneurysm Severe LV concentric hypertrophy. Probable HOCM Hypokalemia History of hypertension Lactic acidosis PLAN: NEURO: Acute subarachnoid hemorrhage, left middle cerebral artery aneurysm Intracranial hypertension, uncontrolled Acute encephalopathy s/p left decompressive craniotomy 04/25/16 and evacuation of temporal hematoma s/p endovascular coiling of ruptured cerebral aneurysm Patient has suffered significant dominant hemisphere frontal temporal lobe hemorrhage and consequent cerebral injury which reduces likelihood of functional recovery. Family request aggressive care and Dr. Meléndez performed left decompressive craniotomy 04/25/16 and evacuation of temporal hematoma Sedation/analgesia (Propofol, Versed and Fentanyl) to help control ICP. Mild hypervolemia using CVP. No spontaneous awakening trial until approved by N/S. f/u CT head today 04/28/16 Continue Ventricular drain. Jenna Baca. Treat fever aggressively. Nimbex for ICP control-DCd 04/21/16 23% PRN for ICP >20. Keep Na 150-155. 3% gtt at [address] angiogram done 04/14, 04/16/16, 04/22/16 showed status post endovascular repair of left supraclinoid aneurysm, left M1 segment aneurysm stable no vasospasm. Continue with hypervolemia and hypertension for vasospasm prevention. Target SBP 180 for vasospasm prophylaxis. Will start reducing sedation in a.m. Palliative care following remains full code CV: Uncontrolled HTN, now permissive Severe LV concentric hypertrophy. Probable HOCM Target SBP 150-190 for vasospasm prophylaxis. Maintain preload, follow CVP, for hypervolemia. Use Levophed/Cardene PRN Continue Nimotop (Recommendation for consideration of septal ablation on echo, patient is not a candidate for surgical intervention due to devastating neuro injury) RESP: Acute respiratory failure HCAP PC/AC vent mode, adjust vent rate to keep EtCO2 28-33. Nebs prn and scheduled. Vent bundle. No vent weaning due to high ICP, severe encephalopathy Tracheostomy 04/29 : Rebollar required for hourly output. Keep UO more than 30 mL per hour GI: Restart tube feeds a.m. Lactulose to 30 ml q8. Dulcolax suppository PRN, Having BM GI consulted for possible PEG tube placement HEME: Serial Hgb. Monitor CBC ID: Sepsis HCAP with E Coli, Haemophilus Sputum cx EColi, haemophilus and blood cultures neg to date. On Zosyn 4.5 GM IV q6 04/15/16. Levaquin was added 04/16/16 to cover for Stenotrophomonas -DCd 04/19, restarted again 04/20/16- 04/26/16 Repeat panculture with blood urine and sputum cultures 04/17/16 negative to date CXR bilateral infiltrates, with leukocytosis and brown sputum Resend cultures due to low grade fever and increased WBC 04/20 -NEG to date ENDO: SSI for euglycemia, avoid hypokalemia, hypo Mag PX: SCDs. Protonix. Cleared by to use Lovenox for chemical DVT prophylaxis on 04/19/16 Overall impression: Severe SAH and left parenchymal bleed and ruptured aneurysm, with cerebral edema , elevated ICP. Now intractable ICP elevation, plan for left decompressive hemicraniectomy today. HCAP and severe sepsis. CT of the head shows new left frontoparietal hemorrhage. Remains critically ill and prognosis guarded at best. Prognosis poor with L frontal hemorrhage- , now with left decompressive craniotomy and evacuation of the bleed. palliative care following. Will start lightening sedation tomorrow now that trach and PEG completed. Critical care 35 mins Jeffrey Chand MD Apr 29, 2016 17:25
--- NOTE | 2016-04-29 19:16 | PD.PROCEDR ---
GI Procedure PROCEDURE DATE: Apr 28, [address] Meléndez PROCEDURE PERFORMED EGD with PEG placement INDICATION FOR PROCEDURE Subarachnoid hemorrhage dysphagia PROCEDURE: The procedure, risks and benefits were discussed with Ms. Pride and informed consent was obtained. Anesthesia sedated her with Diprivan. She was placed in the left lateral decubitus position. EGD: The Pentax videoscope was introduced through the oropharynx and advanced to the second portion of the duodenum under direct visualization. Retroflexion was performed in the stomach. FINDINGS: The esophagus this was normal The stomach this was normal The duodenum this was normal Following the evaluation of the stomach and the duodenum the stomach was insufflated with air and the area of PEG placement was identified through indentation and transillumination the area was prepped and draped in usual fashion 5 cc of lidocaine were injected locally a small incision was made then an Angiocath was passed into the stomach through which a guidewire was passed this was retrieved with the scope into that a PEG tube was attached and pulled into place and thereafter secured in usual fashion The patient tolerated procedure well and there are no immediate complications ESTIMATED BLOOD LOSS: None SPECIMENS REMOVED: None COMPLICATIONS: None IMPRESSION: Normal EGD Successful PEG placement PLAN: As per protocol Rizwan Serra MD Apr 29, 2016 19:16
--- NOTE | 2016-04-29 20:13 | HHI.GIFU ---
Subjective Remarks Patient in bed unresponsive Objective Vitals I&O Vital Signs Date Time Temp Pulse Resp B/P Pulse Ox O2 Delivery O2 Flow Rate FiO2 04/29/16 18:00 74 04/29/16 16:00 97.6 80 14 149/64 99 04/29/16 16:00 80 04/29/16 16:00 50 04/29/16 15:41 100 60 04/29/16 14:00 77 04/29/16 13:38 100 100 04/29/16 12:00 98.2 78 14 155/74 100 04/29/16 12:00 78 04/29/16 12:00 50 04/29/16 11:54 100 100 04/29/16 10:00 80 04/29/16 08:49 100 40 04/29/16 08:20 50 04/29/16 08:20 85 04/29/16 08:20 98.1 85 14 173/83 100 04/29/16 06:00 77 04/29/16 04:10 100 40 04/29/16 04:00 97.8 76 14 160/68 100 04/29/16 04:00 40 04/29/16 04:00 76 04/29/16 02:00 74 04/29/16 01:04 100 45 04/29/16 01:04 100 45 04/29/16 01:00 45 04/29/16 00:00 74 04/29/16 00:00 97.9 74 14 173/73 100 04/29/16 00:00 50 04/28/16 22:00 68 I/O 04/28/16 04/28/16 04/28/16 04/29/16 04/29/16 04/29/16 07:00 15:00 23:00 07:00 15:00 23:00 Intake Total 1806 ml 1554 ml 1995 ml 2189 ml 1493 ml Output Total 3138 ml 2575 ml 2360 ml 2915 ml 2138 ml Balance -1332 ml -1021 ml -365 ml -726 ml -645 ml IV Total 1806 ml 1494 ml 1965 ml 2129 ml 1433 ml Tube Feeding 0 ml 0 ml 0 ml 0 ml Other 60 ml 30 ml 60 ml 60 ml Output Urine Total 2925 ml 2300 ml 2300 ml 2725 ml 2000 ml Stool Total 0 ml 0 ml 125 ml 75 ml Gastric Drainage Total 125 ml 200 ml Drainage Total 88 ml 75 ml 60 ml 65 ml 63 ml Laboratory Laboratory Tests Test 04/28/16 04/29/16 04/29/16 20:45 04:45 13:00 Sodium Level 144 144 149 Serum Osmolality 300 301 301 White Blood Count 15.8 Red Blood Count 3.76 Hemoglobin 9.2 Hematocrit 29.1 Mean Corpuscular Volume 77.4 Mean Corpuscular Hemoglobin 24.5 Mean Corpuscular Hemoglobin 31.7 Concent Red Cell Distribution Width 27.0 Platelet Count 362 Mean Platelet Volume 8.6 Neutrophils (%) (Auto) 77.1 Lymphocytes (%) (Auto) 9.7 Monocytes (%) (Auto) 8.1 Eosinophils (%) (Auto) 4.5 Basophils (%) (Auto) 0.6 Neutrophils # (Auto) 12.2 Lymphocytes # (Auto) 1.5 Monocytes # (Auto) 1.3 Eosinophils # (Auto) 0.7 Basophils # (Auto) 0.1 CBC Comment AUTO DIFF Differential Comment AUTO DIFF CONFIRMED Ovalocytes 1+ Keratocytes OCC Potassium Level 3.3 Chloride Level 111 Carbon Dioxide Level 24.7 Anion Gap 8 Blood Urea Nitrogen 4 Creatinine 0.48 Estimat Glomerular Filtration 167 Rate Random Glucose 92 Calcium Level 8.6 Magnesium Level 1.3 Total Bilirubin 0.6 Aspartate Amino Transf 28 (AST/SGOT) Alanine Aminotransferase 28 (ALT/SGPT) Alkaline Phosphatase 101 Total Protein 6.2 Albumin 1.6 Date/Time Procedure Status Source Growth 04/29/16 09:00 Gram Stain - Final Resulted Cerebral Spinal Fluid Shunt Fluid 04/29/16 09:00 CSF Culture Resulted Cerebral Spinal Fluid Shunt Fluid Pending Physical Exam HEENT: Drsg to head d/i, ICP, tongue, angioedema CHEST: Resp. even/unlabored. OETT to vent. CARDIAC: RRR. ABDOMEN: Soft, nondistended, nontender; no hepatosplenomegaly; bowel sounds are present in all four quadrants. PEG site clean tolerating PEG feeding EXTREMITIES: Generalized edema. DEAF INTERPRETER: Sedated on vent. Assessment and Plan Plan ASSESSMENT: - Dysphagia, Fen. 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 NSx following, S/P Left frontotemporal parietal decompressive craniotomy, evacuation temporal hematoma (04/25/16). GI has been consulted for PEG tube placement. The photographic editor is following and has recommended Jevity 1.5 @ 50 mls/hr. - Anemia. 8.5/27.0. No obvious bleeding. CT Scan pending. - Resp. Failure. On vent. GS consulted for tracheostomy PLAN: -PEG site clean tolerating PEG feeding continue present supportive care -We will sign off Rizwan Serra MD Apr 29, 2016 20:13
[2016-04-29] MEDS: NS + KCL 20 MEQ INJ 1,000 ML IV SCH (20:37)
[2016-04-29] MEDS: NOREPINEPHRINE INJ 4 MG in SODIUM CHLOR 0.9% 250 ML INJ 250 ML IV SCH (21:50)
[2016-04-29 22:55] LABS: MAGNESIUM 1.6 MG/DL (1.5-2.5); POTASSIUM 3.2 MEQ/L (3.5-5.1)
[2016-04-30] VITALS (19 sets, daily range): BP systolic 142–188; BP diastolic 76–95; PULSE 66–117; RESP 14; TEMP 96.8–99.5; O2SAT 100
[2016-04-30] MEDS: POTASSIUM CHLOR 40 MEQ PREMIX 100 ML IV PRN ×2 (00:21→00:23)
[2016-04-30] MEDS: 3% SALINE INJ 500 ML IV SCH ×3 (01:00→19:07)
[2016-04-30 02:13] LABS: BLOOD GAS BASE EXCESS -2.5 mmol/L (-2-2); BLOOD GAS CARBOXYHEMOGLOBIN 1.2 % (0-4); BLOOD GAS HCO3 21 mmol/L (22-26); BLOOD GAS METHEMOGLOBIN 0.7 % (0-2); BLOOD GAS O2 HGB SATURATION 97 % (90-100); BLOOD GAS OXYGEN CONTENT 11.9 Vol % (12.0-20.0); BLOOD GAS PCO2 32 mmHg (38-42); BLOOD GAS PO2 153 mmHg (61-120); BLOOD GAS TOTAL HGB 8.4 G/DL (12.0-16.0); CRITICAL VALUE NO; OXYGEN DEVICE VENTILATOR; TEMP CORR TO 98.6
[2016-04-30 02:15] LABS: DRAW SITE ART LINE; FIO2 60 %; STAT NO; VENT SETTINGS PC/AC
[2016-04-30] MEDS: PIPERACIL-TAZO 4.5 GM PREMIX 100 ML IV SCH ×4 (02:23→20:24)
[2016-04-30] MEDS: METOPROLOL TARTRATE 25 MG TAB PO SCH ×4 (02:23→20:00)
[2016-04-30] MEDS: VANCOMYCIN INJ 1,500 MG in SODIUM CHLORID 0.9% 500 ML INJ 500 ML IV SCH ×3 (02:23→19:01)
[2016-04-30] MEDS: CHLORHEXIDINE GLUCONATE 2 % 1 PACK (2 CLOTHS) TOP SCH (04:00)
[2016-04-30] MEDS: PROPOFOL 1000 MG/100 ML IV SCH ×4 (04:21→23:08)
[2016-04-30] MEDS: niMODipine 30 MG CAP PO SCH ×6 (04:21→23:19)
[2016-04-30] MEDS: METOCLOPRAMIDE HCL 10 MG/2 ML VIAL IV PUSH SCH ×3 (06:14→22:03)
[2016-04-30] MEDS: fentaNYL DRIP 250 ML IV SCH ×2 (06:43→16:49)
[2016-04-30] MEDS: MIDAZOLAM 100 MG/ML INJ 100 ML IV SCH ×2 (06:43→16:49)
[2016-04-30] MEDS: LACTOBACILLUS ACIDOPHILUS TAB PO SCH (09:15)
[2016-04-30] MEDS: levETIRAcetam 500 MG/NS 100 ML IV SCH ×4 (09:15→20:24)
[2016-04-30] MEDS: PANTOPRAZOLE SODIUM 40 MG VIAL IV SCH (09:15)
[2016-04-30] MEDS: LACTULOSE SYRUP 20 GM/30 ML CUP PO SCH (09:15)
[2016-04-30] MEDS: FLUCONAZOLE 100 MG TAB PO SCH (09:16)
[2016-04-30] MEDS: SODIUM CHLORIDE 0.9% FLUSH 5 ML FLUSH IVF SCH ×2 (09:16→20:25)
--- NOTE | 2016-04-30 12:23 | HHI.CCPN ---
Subjective Remarks/Hospital Course SAH, unresponsive, malignant hypertension - This 46-year-old woman with a longstanding history of hypertension, was found unresponsive at her home and paramedics arrived to find her with shallow breathing and a Angelica coma scale of three. Systolic blood pressure was 290 and under bag mask ventilation. She was brought to the emergency department where she remained unresponsive and required endotracheal intubation, mechanical ventilation. A CT scan of the head showed a large left hemispheric intraparenchymal hemorrhage with subarachnoid blood as well. Subsequent evaluation confirmed a left middle cerebral artery aneurysm which appears to be the culprit lesion. She was brought immediately to the [facility] where we continued Cardene drip infusion for blood pressure control and placed arterial monitoring lines and central venous line. Electrolyte abnormalities were corrected, particularly severe hypokalemia. The ventilator was adjusted to maintain arterial CO2, between 35 and 40. She received Keppra loading intravenously and Nimotop through the nasogastric tube. Usual ICU monitoring was in place and arrangements were made, a ventriculostomy was placed, and transported expeditiously to interventional radiology where attempts will be made to coil the aneurysm. 04/12: Culprit (larger) aneurysm was coiled last evening. ICP acceptable with drainage bloody as expected. Withdraws 4 limbs to pain. 04/13: ICP starting to rise > 20, requiring vent manipulation, increased sedation, analgesia. 04/14: Intermittently ICP spiking >20, RR increased to 18, 50 mg of rocuronium 1. CT angiogram done today to rule out vasospasm 04/15: Remains heavily sedated for ICP control. Overall ICP control improved overnight-remained 12-14. Currently on propofol fentanyl and Versed. CT angiogram done yesterday 04/14/16 showed status post endovascular repair of left supraclinoid aneurysm, left M1 segment aneurysm stable no vasospasm. 04/16: Remains hypoxemic, FiO2 had to be increased to 70%, now down to 60%. Chest x-ray shows increasing right lower lobe infiltrate sputum with gram- negative rods. Blood pressure remains at target 04/17: ICP remains elevated at 22-25. Became hypothermic overnight, likely related to worsening sepsis. Repeat panculture ordered, and vancomycin 04/18: Labile hypertension. Start patient limits expanded to 150-190 systolic. Became more hypoxic now on 90% FiO2. Chest x-ray shows slight increase in right lower lobe infiltrate. Sodium at target 04/19: Remains critically ill with intermittent ICP elevation. ABG shows respiratory alkalosis, minute ventilation reduce which caused ICP to increase further. 3% saline restarted and 23% saline 1 bolus ordered. Chest x-ray shows slight improvement in the right lower lung infiltrate 04/20: ICP elevated to 31, 23% bolus given with improvement to 12-15. Low-grade fever with increase in white count to 16.4. Will send panculture. CTA brain in am 04/21: Remains critically ill with intermittent ICP elevation. ICP controlled with 23% bolus. Keeping sodium 150-160. CT head, CTA 04/22/1604/22: CT of the head shows evolving left frontoparietal hemorrhage with increasing midline shift 1.5 cm left to right. Intermittent ICP elevation was responsive to 23% saline. D/W Neurosurgery. 04/23: Intubated and ICP elevation up to 27, optimized on medical therapy and hyperosmolar therapy. Prognosis very poor according to neurosurgery. Per Dr. Ruiz, patient has suffered significant dominant hemisphere frontal temporal lobe hemorrhage and and consequent cerebral injury which reduces likelihood of functional recovery. Palliative care consulted-will meet with family today 04/24: Overnight high ICP elevations up to 40s. Currently 17-20. Family meeting with palliative care. Optimized on hyperosmolar therapy. Ct head per Dr. Meléndez- large frontal hemorrhage with mass effect, persistent midline shift 04/25: ICP remains high despite maximum hyperosmolar therapy. Family requests aggressive care. Dr. Meléndez is planning for left decompressive craniectomy 04/26: Patient is s/p Left frontotemporal parietal decompressive craniotomy and evacuation of temporal hematoma. ICP better controlled 04-09, remains heavily sedated 04/27: ICP remains better control, 11-12. No acute events overnight. Overnight off Cardene or Levophed. Sedation vacation not approved by neurosurgery yet 04/28: Remains intubated sedated, ICP well control, CT of the head pending. Status post PEG tube placement, plan is for tracheostomy tomorrow. Increased 3 % saline to 30 mL per hour. 04/29: Ventric raised to 10. Will start SBTs. PEG placed, start TFs. Trach in place. Clean, dry. 04/30: Will lighten sedation and proceed with spontaneous breathing trials when OK with Dr. Meléndez. Objective - Vital Signs Date Time Temp Pulse Resp B/P Pulse Ox O2 Delivery O2 Flow Rate FiO2 04/30/16 11:46 100 50 04/30/16 06:00 67 04/30/16 04:00 97.5 14 169/85 Intake and Output 04/29/16 04/29/16 04/30/16 08:00 16:00 00:00 Intake Total 2189 ml 1493 ml 2310 ml Output Total 2915 ml 2138 ml 1935.0 ml Balance -726 ml -645 ml 375.0 ml Result Diagram: 04/29/16 0445 04/30/16 0950 Other Results Laboratory Tests Test 04/11/16 04/11/16 04/12/16 13:06 20:44 05:58 Blood Gas Puncture Site ART LINE ART LINE ART LINE Blood Gas Patient Temperature 98.6 98.6 98.6 Blood Gas HCO3 20 mmol/L 21 mmol/L 19 mmol/L (22-26) (22-26) (22-26) Blood Gas Base Excess -4.2 mmol/L -3.1 mmol/L -4.9 mmol/L (-2-2) (-2-2) (-2-2) Blood Gas Oxygen Saturation 98 % (90-100) 98 % (90-100) 97 % (90-100) Arterial Blood pH 7.40 7.42 7.42 (7.380-7.420) (7.380-7.420) (7.380-7.420) Arterial Blood Partial 33 mmHg (38-42) 33 mmHg (38-42) 30 mmHg (38-42) Pressure CO2 Arterial Blood Partial 372 mmHg 450 mmHg 135 mmHg Pressure O2 (61-120) (61-120) (61-120) Arterial Blood Oxygen Content 11.0 Vol % 10.2 Vol % 15.4 Vol % (12.0-20.0) (12.0-20.0) (12.0-20.0) Arterial Blood 1.5 % (0-4) 1.4 % (0-4) 1.3 % (0-4) Carboxyhemoglobin Arterial Blood Methemoglobin 1.2 % (0-2) 1.2 % (0-2) 1.1 % (0-2) Blood Gas Hemoglobin 7.3 G/DL 6.5 G/DL 11.2 G/DL (12.0-16.0) (12.0-16.0) (12.0-16.0) Oxygen Delivery Device VENT VENTILATOR VENTILATOR Blood Gas Ventilator Setting PRVC/20RATE/500/5PEE PRVC/AC PRVC/AC Blood Gas Inspired Oxygen 100 % 100 % 40 % Objective Remarks Infusions Propofol Fentanyl Versed weaning GEN: Middle-aged female who is intubated and sedated, critically ill. Craniotomy dressing in place, dry, clean HEENT: Atraumatic. EVD in place. Pupils 2 mm nonreactive. Tongue swollen and still protuberant NECK: Supple. No resistance to motion. Trach in place, clean, dry. LUNGS: Clear, no wheezes or crackles. Some mobile secretions. HEART: Normal S1-S2, tachycardia, 4/6 systolic murmur LSB to apex. ABDOMEN: Soft, nontender, nondistended, no guarding, bowel sounds active. EXTREMITIES: Warm, well-perfused. NEUROLOGIC: Pupils 2 mm, nonreactive, positive corneal. No withdrawal to pain. EVD in place at 10. A/P Assessment and Plan Acute subarachnoid hemorrhage, left middle cerebral artery aneurysm Large left frontal hemorrhage Intracranial hypertension Acute respiratory failure on mechanical ventilation RLL pneumonia/E Coli in sputum Sepsis Acute encephalopathy Malignant hypertension Status post coiling of MCA aneurysm Severe LV concentric hypertrophy. Probable HOCM Hypokalemia History of hypertension Lactic acidosis PLAN: NEURO: Acute subarachnoid hemorrhage, left middle cerebral artery aneurysm Intracranial hypertension, uncontrolled Acute encephalopathy s/p left decompressive craniotomy 04/25/16 and evacuation of temporal hematoma s/p endovascular coiling of ruptured cerebral aneurysm Patient has suffered significant dominant hemisphere frontal temporal lobe hemorrhage and consequent cerebral injury which reduces likelihood of functional recovery. Family request aggressive care and Dr. Meléndez performed left decompressive craniotomy 04/25/16 and evacuation of temporal hematoma Sedation/analgesia (Propofol, Versed and Fentanyl) to help control ICP. Mild hypervolemia using CVP. No spontaneous awakening trial until approved by N/S. f/u CT head today 04/28/16 Continue Ventricular drain. Jenna Baca. Treat fever aggressively. Nimbex for ICP control-DCd 04/21/16 23% PRN for ICP >20. Keep Na 150-155. 3% gtt at [address] angiogram done 04/14, 04/16/16, 04/22/16 showed status post endovascular repair of left supraclinoid aneurysm, left M1 segment aneurysm stable no vasospasm. Continue with hypervolemia and hypertension for vasospasm prevention. Target SBP 180 for vasospasm prophylaxis. Will start reducing sedation when OK with Neurosurgery. Palliative care following remains full code CV: Uncontrolled HTN, now permissive Severe LV concentric hypertrophy. Probable HOCM Target SBP 150-190 for vasospasm prophylaxis. Maintain preload, follow CVP, for hypervolemia. Use Levophed/Cardene PRN Continue Nimotop. (Recommendation for consideration of septal ablation on echo, patient is not a candidate for surgical intervention due to devastating neuro injury) Will ultimately need tight heart rate control and permanent beta blockade RESP: Acute respiratory failure HCAP PC/AC vent mode, adjust vent rate to keep EtCO2 28-33. Nebs prn and scheduled. Vent bundle. No vent weaning due to high ICP, severe encephalopathy Tracheostomy 04/29 : Rebollar required for hourly output. Keep UO more than 30 mL per hour GI: Restart tube feeds a.m. Lactulose to 30 ml q8. Dulcolax suppository PRN, Having BM GI -> PEG tube placement HEME: Serial Hgb. Monitor CBC ID: Sepsis HCAP with E Coli, Haemophilus Sputum cx EColi, haemophilus and blood cultures neg to date. On Zosyn 4.5 GM IV q6 04/15/16. Levaquin was added 04/16/16 to cover for Stenotrophomonas -DCd 04/19, restarted again 04/20/16- 04/26/16 Repeat panculture with blood urine and sputum cultures 04/17/16 negative to date CXR bilateral infiltrates, with leukocytosis and brown sputum Resend cultures due to low grade fever and increased WBC 04/20 -NEG to date ENDO: SSI for euglycemia, avoid hypokalemia, hypo Mag PX: SCDs. Protonix. Cleared by Dr. Morris to use Lovenox for chemical DVT prophylaxis on 04/19/16 Overall impression: Presented with severe SAH and left parenchymal bleed from ruptured aneurysm, with cerebral edema, elevated ICP. Prolonged intractable ICP elevation, then left decompressive hemicraniectomy, for new left frontoparietal hemorrhage, at request of family when option presented. Developed HCAP and severe sepsis. Remains critically ill and prognosis guarded at best, palliative care following. Will start lightening sedation tomorrow now that trach and PEG completed. Remains critically ill. Critical care 37 mins Jeffrey Chand MD Apr 30, 2016 12:23
[2016-04-30] MEDS: NS + KCL 20 MEQ INJ 1,000 ML IV SCH (16:49)
--- NOTE | 2016-04-30 17:56 | HHI.PR ---
Subjective Subjective Notes On vent via trach/unresponsive Objective Vitals/I&O Vital Signs Date Time Temp Pulse Resp B/P Pulse Ox O2 Delivery O2 Flow Rate FiO2 04/30/16 16:12 100 40 04/30/16 12:00 98.8 87 14 174/87 Labs Laboratory Tests Test 04/29/16 04/30/16 04/30/16 04/30/16 21:50 01:55 04:00 09:50 Sodium Level 148 Potassium Level 3.2 3.3 Serum Osmolality 297 302 Magnesium Level 1.6 Blood Gas Puncture Site ART LINE Blood Gas Patient Temperature 98.6 Blood Gas HCO3 21 Blood Gas Base Excess -2.5 Blood Gas Oxygen Saturation 97 Arterial Blood pH 7.43 Arterial Blood Partial 32 Pressure CO2 Arterial Blood Partial 153 Pressure O2 Arterial Blood Oxygen Content 11.9 Arterial Blood 1.2 Carboxyhemoglobin Arterial Blood Methemoglobin 0.7 Blood Gas Hemoglobin 8.4 Oxygen Delivery Device VENTILATOR Blood Gas Ventilator Setting PC/AC Blood Gas Inspired Oxygen 60 Test 04/30/16 12:00 Serum Osmolality 302 Date/Time Procedure Status Source Growth 04/29/16 09:00 Gram Stain - Final Resulted Cerebral Spinal Fluid Shunt Fluid 04/29/16 09:00 CSF Culture - Preliminary Resulted Cerebral Spinal Fluid Shunt Fluid NO GROWTH IN 24 HOURS. Cardiovascular: Regular Lungs: Clear Abdomen: Non-distended, Non-tender Extremities: No edema Narrative Exam Trach in good position; no bleeding or drainage Tongue protruding A/P Assessment and Plan 46 year old female resp failure s/p aneurism -POD1 trach placement -In good position -Okay to restart Lovenox from GS standpoint -Continue trach care -Vent per [facility] -GS will sign off; please call with ??s Attending Statement s/p trach, in good position, well functioning s/o today Attestation The exam, history, and the medical decision-making described in the above note were completed with the assistance of the mid-level provider. I reviewed and agree with the findings presented. I attest that I had a [id number] encounter with the patient on the same day, and personally performed and documented my assessment and findings in the medical record. Mary Barker Apr 30, 2016 17:56 Bill Carmona MD May 03, 2016 14:22
--- NOTE | 2016-04-30 18:06 | HHI.NSPN ---
History Chief Complaint: status post coil for aneurysm Interval History 04/12/16: Patient had an aneurysm coiled 04/11/2016, intubated and sedated, ICP stable overnight 04/29/2016: Tracheostomy and PEG placement Exam Results Vital Signs Date Time Temp Pulse Resp B/P Pulse Ox O2 Delivery O2 Flow Rate FiO2 04/30/16 16:12 100 40 04/30/16 12:00 98.8 87 14 174/87 Intake and Output 04/29/16 04/29/16 04/30/16 08:00 16:00 00:00 Intake Total 2189 ml 1493 ml 2310 ml Output Total 2915 ml 2138 ml 1935.0 ml Balance -726 ml -645 ml 375.0 ml Physical Examination Ms. Pride is intubated and sedated. EVD in place at10 cmH20 draining well. ICPs <10 . Incision is well approximated. [place] intact. Flap soft and non-pulsatile. Wound clean. Pupils 2 mm nonreactive. Right lateral gaze. Mild oculocephalics and mild corneal No withdrawals x 4 extremities to deep pain. Tracheostomy and PEG tube in place Lab, Micro, Other Results Microbiology Date/Time Procedure Status Source Growth 04/29/16 09:00 Gram Stain - Final Resulted Cerebral Spinal Fluid Shunt Fluid 04/29/16 09:00 CSF Culture - Preliminary Resulted Cerebral Spinal Fluid Shunt Fluid NO GROWTH IN 24 HOURS. Medical Decision Making Impression and Plan Impression: 1. Neurologic exam stable improved following endovascular coiling of ruptured cerebral aneurysm with subsequent left decompressive craniotomy Plan: 1. Continue ventilatory support and sedation as needed for ventilator control. 2. Challenge ventriculostomy-ventriculostomy clamped today with monitoring of ICP. Plan follow up CT scan head in the morning to evaluate for hydrocephalus. 3. Nimodipine for vasospasm prophylaxis 4. Okay for Lovenox from neurosurgery standpoint 5. Maintain systolic blood pressure 130-160 range 6. Continue monitor sodium level, keep 145-150 range 7. Seizure prophylaxis Sherwin Meléndez MD Apr 30, 2016 18:06
[2016-04-30] MEDS: LEVOFLOXACIN 750 MG PREMIX INJ 150 ML IV SCH (19:07)
--- NOTE | 2016-04-30 20:51 | RADRPT ---
EXAM DATE/TIME: 04/30/2016 19:33 [facility] COMPARISON: CHEST SINGLE AP, April 29, 2016, 13:22. INDICATIONS : Possible Pleural Effusion. MEDICAL HISTORY : Hypertension. Subarachnoid hemorrhage. SURGICAL HISTORY : Tubal ligation. ENCOUNTER: Subsequent ACUITY: 1 week PAIN SCORE: Non-responsive. LOCATION: Bilateral chest FINDINGS: Heart size enlarged. Bibasilar airspace disease and effusions, left greater than right. No pneumothor ax. Left central line in superior vena cava. CONCLUSION: 1. Cardiac enlargement. Bilateral airspace disease. Pleural effusion, left greater than right. Findin gs similar to April 29 considering differences in technique. Tracheostomy unchanged. Quinn Bateman MD on April 30, 2016 at 20:47 Board Certified Radiologist. This report was verified electronically.
[2016-04-30] MEDS: NOREPINEPHRINE INJ 4 MG in SODIUM CHLOR 0.9% 250 ML INJ 250 ML IV SCH (22:04)
[2016-05-01] VITALS (19 sets, daily range): BP systolic 154–187; BP diastolic 76–94; PULSE 73–100; RESP 14–20; TEMP 97.9–100.5; O2SAT 99–100
[2016-05-01] MEDS: METOPROLOL TARTRATE 25 MG TAB PO SCH ×4 (02:00→19:09)
[2016-05-01] MEDS: MIDAZOLAM 100 MG/ML INJ 100 ML IV SCH (02:28)
[2016-05-01] MEDS: PROPOFOL 1000 MG/100 ML IV SCH ×2 (02:28→06:50)
[2016-05-01] MEDS: PIPERACIL-TAZO 4.5 GM PREMIX 100 ML IV SCH ×2 (03:13→09:06)
[2016-05-01] MEDS: niMODipine 30 MG CAP PO SCH ×6 (03:13→23:19)
[2016-05-01] MEDS: CHLORHEXIDINE GLUCONATE 2 % 1 PACK (2 CLOTHS) TOP SCH (03:20)
[2016-05-01 04:44] LABS: BICARBONATE 24.6 MEQ/L (21.0-32.0)
[2016-05-01 04:54] LABS: POTASSIUM 2.9 MEQ/L (3.5-5.1)
--- NOTE | 2016-05-01 04:55 | RADRPT ---
EXAM DATE/TIME: 05/01/2016 04:20 [facility] COMPARISON: CT BRAIN W/O CONTRAST, April 28, 2016, 17:32. INDICATIONS : Subarachnoid hemorrage. RADIATION DOSE: 59.57 CTDIvol (mGy) MEDICAL HISTORY : Hypertension. SURGICAL HISTORY : Tubal ligation. ENCOUNTER: Subsequent ACUITY: 2 weeks PAIN SCALE: Non-responsive LOCATION: cranial TECHNIQUE: Multiple contiguous axial images were obtained of the head. Using automated exposure control and adj ustment of the mA and/or kV according to patient size, radiation dose was kept as low as reasonably a chievable to obtain optimal diagnostic quality images. FINDINGS: CEREBRUM: There is significant edema and residual hemorrhage in the left temporal lobe. The area of hemorrhage measures 2.5 x 1.5 cm.. The cerebrum herniates out the craniotomy defect by 1.5 cm. The third vent ricle is shifted from left to right. The ventricles are dilated , new since 04/28/16. No new hemorrh age is seen. Aneurysm clip is in good position. POSTERIOR FOSSA: The cerebellum and brainstem are intact. The 4th ventricle is midline. The cerebellopontine angle i s unremarkable. EXTRACRANIAL: The visualized portion of the orbits is intact. SKULL: There is a 9.2 cm craniotomy defect. Fluid within both maxillary sinuses. CONCLUSION: There again is significant hemorrhage and edema remaining in the left temporal region. There has been interval increase in size of the ventricular system since the previous study. Sunny Berger MD on May 01, 2016 at 4:46 Board Certified Radiologist. This report was verified electronically.
[2016-05-01] MEDS: METOCLOPRAMIDE HCL 10 MG/2 ML VIAL IV PUSH SCH ×3 (05:01→21:03)
[2016-05-01] MEDS: VANCOMYCIN INJ 1,500 MG in SODIUM CHLORID 0.9% 500 ML INJ 500 ML IV SCH (05:01)
[2016-05-01] MEDS: POTASSIUM CHLOR 40 MEQ PREMIX 100 ML IV PRN ×2 (05:01→07:07)
[2016-05-01] MEDS: FLUCONAZOLE 100 MG TAB PO SCH (08:28)
[2016-05-01] MEDS: PANTOPRAZOLE SODIUM 40 MG VIAL IV SCH (08:28)
[2016-05-01] MEDS: SODIUM CHLORIDE 0.9% FLUSH 5 ML FLUSH IVF SCH ×2 (08:28→20:43)
[2016-05-01] MEDS: LACTOBACILLUS ACIDOPHILUS TAB PO SCH (08:28)
[2016-05-01] MEDS: LACTULOSE SYRUP 20 GM/30 ML CUP PO SCH (08:28)
[2016-05-01] MEDS: levETIRAcetam 500 MG/NS 100 ML IV SCH ×2 (09:06)
--- NOTE | 2016-05-01 10:20 | HHI.NSPN ---
(Genna Madrid) History Chief Complaint: status post coil for aneurysm (Genna Madrid) Interval History 04/12/16: Patient had an aneurysm coiled yesterday, intubated and sedated, ICP stable overnight 04/13/16: Increased ICP overnight, improved after a 23% saline bolus 04/14/16: ICP stable overnight 04/15/16: ICP stable, CTA stable no vasospasm 04/16/16: ICP slight increase overnight now stabilized, intubated and sedated 04/17/16: ICP increased yesterday afternoon, repeat CTA and CT stable, no vasospasm, no new hemorrhage, hypothermia overnight 04/21/16: increasing ICP over the weekend, getting 23% every 6 hours PRN. 04/22/16: ICP responding over night to 23% saline, CT and CTA planned this am. Nimbex off since yesterday. 04/23/16: ICP stable overnight, SBP increasing today RN adjusting pressors, HGB improved after 2 units of PRBC, no signs of active bleeding 04/24/16: ICP increased overnight with stimulation but not sustained, low HGB again today receiving PRBC this am 04/25/16: ICP max 38 overnight, currently 10, no family at bedside. 04/26/16: She has ventriculostomy drain in place. She underwent left decompressive craniectomy yesterday 04/[address] Meléndez due to elevated ICPs. Today, ICPs improved, currently 4. 04/27/16: intermittent spikes in ICPs overnight in low 20's controlled with hyperosmotic bolus. Currently 9. well sedated. 04/28/16: ICP stable between 9-14 per RN. EVD draining blood tinged CSF, flap firm non-pulsatile 04/29/16: ICP stable overnight, PEG yesterday, Trach today. 04/30/16: EVD clamped 05/01/16: EVD clamped, ICP max 17, currently 14. (Genna Madrid) Exam Results Vital Signs Date Time Temp Pulse Resp B/P Pulse Ox O2 Delivery O2 Flow Rate FiO2 05/01/16 09:13 100 40 05/01/16 06:00 84 05/01/16 04:00 97.9 14 154/76 Intake and Output 04/30/16 04/30/16 05/01/16 08:00 16:00 00:00 Intake Total 2139 ml 1820 ml 2040 ml Output Total 2280 ml 1800 ml 1455 ml Balance -141 ml 20 ml 585 ml (Genna Madrid) Physical Examination Ms. Pride is intubated and sedated. EVD is clamped. Incision is well approximated. Khai intact. Flap soft and non-pulsatile. Wound clean. Pupils 3 mm nonreactive. Right lateral gaze. Mild oculocephalics and mild corneal No withdrawals x 4 extremities to deep pain. Tracheostomy and PEG tube in place (Genna Madrid) Lab, Micro, Other Results Microbiology Date/Time Procedure Status Source Growth 04/29/16 09:00 Gram Stain - Final Resulted Cerebral Spinal Fluid Shunt Fluid 04/29/16 09:00 CSF Culture - Preliminary Resulted Cerebral Spinal Fluid Shunt Fluid NO GROWTH IN 48 HOURS. Last Impressions Head CT 04/30/16 0000 Signed Impressions: Service Date/Time: May 04:20 - CONCLUSION: There again is significant hemorrhage and edema remaining in the left temporal region. There has been interval increase in size of the ventricular system since the previous study. Sunny Berger MD Chest X-Ray 04/30/16 0000 Signed Impressions: Service Date/Time: Saturday, April 30, 2016 19:33 - CONCLUSION: 1. Cardiac enlargement. Bilateral airspace disease. Pleural effusion, left greater than right. Findings similar to April 29 considering differences in technique. Tracheostomy unchanged. Quinn Bateman MD Abdomen/Pelvis CT 04/24/16 1416 Signed Impressions: Service Date/Time: March 14:39 - CONCLUSION: Mild small bowel ileus with scattered air-fluid levels. Bibasilar lung consolidation with associated small effusions. Significant soft tissue fluid accumulation with edematous changes throughout the abdominal wall. Nasogastric tube in good position. Saqib Garcia MD Head CTA 04/22/16 0600 Signed Impressions: Service Date/Time: Friday, April 22, 2016 09:26 - CONCLUSION: 1. The intracranial circulation remains patent. The exam demonstrates significantly more edema surrounding the patient's large area of intraparenchymal hemorrhage on the left. There is at least 1.3 cm of left to right falcine shift. This is significantly worse when compared to the previous examination. This appears to be the result of worsening edema around the patient's intraparenchymal hemorrhage. Eric Castellanos MD Neck CTA 04/11/16 1151 Signed Impressions: Service Date/Time: Monday, April 11, 2016 12:01 - CONCLUSION: Negative for hemodynamically significant carotid stenosis. Ricardo Castellanos MD FACR Cerebral Arteriogram 04/11/16 0000 Signed Impressions: Service Date/Time: Monday, April 11, 2016 14:18 - CONCLUSION: 1. 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 This is the aneurysm felt responsible for the intracranial hemorrhage. 2. Small 4 mm left M1 segment aneurysm. Attempts at embolizing this aneurysm were unsuccessful due to the broad based nature of the aneurysm. Endovascular repair of this aneurysm could not be performed. Kennedy Thibodeaux Jr., MD Laboratory Tests Test 04/30/16 04/30/16 05/01/16 12:00 20:58 03:42 Serum Osmolality 302 MOSM/KG 302 MOSM/KG 297 MOSM/KG Sodium Level 145 MEQ/L 147 MEQ/L Potassium Level 2.9 MEQ/L Chloride Level 113 MEQ/L Carbon Dioxide Level 24.6 MEQ/L Anion Gap 9 MEQ/L Blood Urea Nitrogen 3 MG/DL Creatinine 0.48 MG/DL Estimat Glomerular Filtration 167 ML/MIN Rate Random Glucose 94 MG/DL Calcium Level 7.9 MG/DL (Genna Madrid) Medical Decision Making Impression and Plan Impression: 1. Neurologic exam stable following endovascular coiling of ruptured cerebral aneurysm with subsequent left decompressive craniotomy 04/14/16 CT angiogram stable: Status post endovascular repair of left supraclinoid aneurysm. Left M1 segment aneurysm stable 04/16/[address] and CTA stable. No vasospasm, no new hemorrhage. 04/22/16: Head CT 14mm left to right shift, and CTA perfusion, no vasospasm 04/28/16: stable, shift decreased to 7mm 05/01/16: stable, mild ventriculomegaly, improving mass effect and shift Plan: CTA brain tomm 05/02 Re-open EVD today 05/01 and maintain at [id number]. Plan to clamp it Saturday 05/[address] Sunday 05/06. Repeat CSF culture and gram stain 05/05. Possible SAND CAR WORKER shunt placement 05/06 pending CSF culture and head CT next Thursday. may resume Lovenox from a neurosurgery standpoint, will need held Saturday 05/05 for possible Thursday procedure Nimodipine for vasospasm prophylaxis. possible d/c tomm. pending CTA results. Maintain systolic blood pressure 150-190. range Continue to monitor sodium level, keep 145-155. 23% saline for ICP over 25. Hold for Na+ greater than 160. Electric Fan Assembler following for medical management Keppra for seizure prophylaxis. Protonix for ulcer prophylaxis Tube feeds as tolerated. Wean sedation as tolerated. (Genna Madrid) Attending Statement On the date of this note, the undersigned had a [id number] encounter with the patient. I personally examined the patient, obtained pertinent history, and reviewed the electronic medical record including pertinent laboratory results and imaging studies. I personally developed the treatment plan and perform medical decision making. All of the above was performed in the presence of the physician's assistant service manager, who has scribed my findings into the medical record as noted above. (Sherwin Meléndez MD) Genna Madrid May 01, 2016 10:20 Sherwin Meléndez MD May 01, 2016 20:32
[2016-05-01] MEDS: 3% SALINE INJ 500 ML IV SCH (11:14)
[2016-05-01] MEDS: niCARdipine INJ 25 MG in SODIUM CHLOR 0.9% 250 ML INJ 250 ML IV SCH ×4 (11:14→20:45)
[2016-05-01] MEDS: NS + KCL 20 MEQ INJ 1,000 ML IV SCH (11:15)
--- NOTE | 2016-05-01 12:24 | HHI.CCPN ---
Subjective Remarks/Hospital Course SAH, unresponsive, malignant hypertension - This 46-year-old woman with a longstanding history of hypertension, was found unresponsive at her home and paramedics arrived to find her with shallow breathing and a Angelica coma scale of three. Systolic blood pressure was 290 and under bag mask ventilation. She was brought to the emergency department where she remained unresponsive and required endotracheal intubation, mechanical ventilation. A CT scan of the head showed a large left hemispheric intraparenchymal hemorrhage with subarachnoid blood as well. Subsequent evaluation confirmed a left middle cerebral artery aneurysm which appears to be the culprit lesion. She was brought immediately to the [facility] where we continued Cardene drip infusion for blood pressure control and placed arterial monitoring lines and central venous line. Electrolyte abnormalities were corrected, particularly severe hypokalemia. The ventilator was adjusted to maintain arterial CO2, between 35 and 40. She received Keppra loading intravenously and Nimotop through the nasogastric tube. Usual ICU monitoring was in place and arrangements were made, a ventriculostomy was placed, and transported expeditiously to interventional radiology where attempts will be made to coil the aneurysm. 04/12: Culprit (larger) aneurysm was coiled last evening. ICP acceptable with drainage bloody as expected. Withdraws 4 limbs to pain. 04/13: ICP starting to rise > 20, requiring vent manipulation, increased sedation, analgesia. 04/14: Intermittently ICP spiking >20, RR increased to 18, 50 mg of rocuronium 1. CT angiogram done today to rule out vasospasm 04/15: Remains heavily sedated for ICP control. Overall ICP control improved overnight-remained 12-14. Currently on propofol fentanyl and Versed. CT angiogram done yesterday 04/14/16 showed status post endovascular repair of left supraclinoid aneurysm, left M1 segment aneurysm stable no vasospasm. 04/16: Remains hypoxemic, FiO2 had to be increased to 70%, now down to 60%. Chest x-ray shows increasing right lower lobe infiltrate sputum with gram- negative rods. Blood pressure remains at target 04/17: ICP remains elevated at 22-25. Became hypothermic overnight, likely related to worsening sepsis. Repeat panculture ordered, and vancomycin 04/18: Labile hypertension. Start patient limits expanded to 150-190 systolic. Became more hypoxic now on 90% FiO2. Chest x-ray shows slight increase in right lower lobe infiltrate. Sodium at target 04/19: Remains critically ill with intermittent ICP elevation. ABG shows respiratory alkalosis, minute ventilation reduce which caused ICP to increase further. 3% saline restarted and 23% saline 1 bolus ordered. Chest x-ray shows slight improvement in the right lower lung infiltrate 04/20: ICP elevated to 31, 23% bolus given with improvement to 12-15. Low-grade fever with increase in white count to 16.4. Will send panculture. CTA brain in am 04/21: Remains critically ill with intermittent ICP elevation. ICP controlled with 23% bolus. Keeping sodium 150-160. CT head, CTA 04/22/1604/22: CT of the head shows evolving left frontoparietal hemorrhage with increasing midline shift 1.5 cm left to right. Intermittent ICP elevation was responsive to 23% saline. D/W Neurosurgery. 04/23: Intubated and ICP elevation up to 27, optimized on medical therapy and hyperosmolar therapy. Prognosis very poor according to neurosurgery. Per Dr. Ruiz, patient has suffered significant dominant hemisphere frontal temporal lobe hemorrhage and and consequent cerebral injury which reduces likelihood of functional recovery. Palliative care consulted-will meet with family today 04/24: Overnight high ICP elevations up to 40s. Currently 17-20. Family meeting with palliative care. Optimized on hyperosmolar therapy. Ct head per Dr. Meléndez- large frontal hemorrhage with mass effect, persistent midline shift 04/25: ICP remains high despite maximum hyperosmolar therapy. Family requests aggressive care. Dr. Meléndez is planning for left decompressive craniectomy 04/26: Patient is s/p Left frontotemporal parietal decompressive craniotomy and evacuation of temporal hematoma. ICP better controlled 04-09, remains heavily sedated 04/27: ICP remains better control, 11-12. No acute events overnight. Overnight off Cardene or Levophed. Sedation vacation not approved by neurosurgery yet 04/28: Remains intubated sedated, ICP well control, CT of the head pending. Status post PEG tube placement, plan is for tracheostomy tomorrow. Increased 3 % saline to 30 mL per hour. 04/29: Ventric raised to 10. Will start SBTs. PEG placed, start TFs. Trach in place. Clean, dry. 04/30: Will lighten sedation and proceed with spontaneous breathing trials when OK with Dr. Meléndez. 05/01: Plans noted. Agree. Will mainatin hypertension and allow patient to slowly diurese extra free water. D/C antibiotics as NG. Check C. diff culture. Objective - Vital Signs Date Time Temp Pulse Resp B/P Pulse Ox O2 Delivery O2 Flow Rate FiO2 05/01/16 10:00 75 05/01/16 09:13 100 40 05/01/16 08:00 98.4 14 175/94 Intake and Output 04/30/16 04/30/16 05/01/16 08:00 16:00 00:00 Intake Total 2139 ml 1820 ml 2040 ml Output Total 2280 ml 1800 ml 1455 ml Balance -141 ml 20 ml 585 ml Result Diagram: 04/29/16 0445 05/01/16 0342 Other Results Laboratory Tests Test 04/11/16 04/11/16 04/12/16 13:06 20:44 05:58 Blood Gas Puncture Site ART LINE ART LINE ART LINE Blood Gas Patient Temperature 98.6 98.6 98.6 Blood Gas HCO3 20 mmol/L 21 mmol/L 19 mmol/L (22-26) (22-26) (22-26) Blood Gas Base Excess -4.2 mmol/L -3.1 mmol/L -4.9 mmol/L (-2-2) (-2-2) (-2-2) Blood Gas Oxygen Saturation 98 % (90-100) 98 % (90-100) 97 % (90-100) Arterial Blood pH 7.40 7.42 7.42 (7.380-7.420) (7.380-7.420) (7.380-7.420) Arterial Blood Partial 33 mmHg (38-42) 33 mmHg (38-42) 30 mmHg (38-42) Pressure CO2 Arterial Blood Partial 372 mmHg 450 mmHg 135 mmHg Pressure O2 (61-120) (61-120) (61-120) Arterial Blood Oxygen Content 11.0 Vol % 10.2 Vol % 15.4 Vol % (12.0-20.0) (12.0-20.0) (12.0-20.0) Arterial Blood 1.5 % (0-4) 1.4 % (0-4) 1.3 % (0-4) Carboxyhemoglobin Arterial Blood Methemoglobin 1.2 % (0-2) 1.2 % (0-2) 1.1 % (0-2) Blood Gas Hemoglobin 7.3 G/DL 6.5 G/DL 11.2 G/DL (12.0-16.0) (12.0-16.0) (12.0-16.0) Oxygen Delivery Device VENT VENTILATOR VENTILATOR Blood Gas Ventilator Setting PRVC/20RATE/500/5PEE PRVC/AC PRVC/AC Blood Gas Inspired Oxygen 100 % 100 % 40 % Objective Remarks Infusions Propofol Fentanyl waening off. Versed weaning GEN: Middle-aged female who is intubated and sedated, critically ill. Craniotomy dressing in place, dry, clean HEENT: Atraumatic. EVD in place. Pupils 2 mm nonreactive. Tongue swollen and still protuberant NECK: Supple. No resistance to motion. Trach in place, clean, dry. LUNGS: Clear, no wheezes or crackles. Some mobile secretions. HEART: Normal S1-S2, tachycardia, 4/6 systolic murmur LSB to apex. ABDOMEN: Soft, nontender, nondistended, no guarding, bowel sounds hyperactive. EXTREMITIES: Warm, well-perfused. NEUROLOGIC: Pupils 2 mm, nonreactive, No withdrawal to pain. EVD in place. A/P Assessment and Plan Acute subarachnoid hemorrhage, left middle cerebral artery aneurysm Large left frontal hemorrhage Intracranial hypertension Acute respiratory failure on mechanical ventilation RLL pneumonia/E Coli in sputum Sepsis Acute encephalopathy Malignant hypertension Status post coiling of MCA aneurysm Severe LV concentric hypertrophy. Probable HOCM Hypokalemia History of hypertension Lactic acidosis PLAN: NEURO: Acute subarachnoid hemorrhage, left middle cerebral artery aneurysm Intracranial hypertension, uncontrolled Acute encephalopathy s/p left decompressive craniotomy 04/25/16 and evacuation of temporal hematoma s/p endovascular coiling of ruptured cerebral aneurysm Patient has suffered significant dominant hemisphere frontal temporal lobe hemorrhage and consequent cerebral injury which reduces likelihood of functional recovery. Family request aggressive care and Dr. Meléndez performed left decompressive craniotomy 04/25/16 and evacuation of temporal hematoma Sedation/analgesia (Propofol, Versed and Fentanyl) to help control ICP. Mild hypervolemia using CVP. No spontaneous awakening trial until approved by N/S. f/u CT head today 04/28/16 Continue Ventricular drain. Rambo Bacap. Treat fever aggressively. Nimbex for ICP control-DCd 04/21/16 23% PRN for ICP >20. Keep Na 150-155. 3% gtt at [address] angiogram done 04/14, 04/16/16, 04/22/16 showed status post endovascular repair of left supraclinoid aneurysm, left M1 segment aneurysm stable no vasospasm. Continue with hypervolemia and hypertension for vasospasm prevention. Target SBP 180 for vasospasm prophylaxis. Will start reducing sedation when OK with Neurosurgery. Palliative care following remains full code CV: Uncontrolled HTN, now permissive Severe LV concentric hypertrophy. Probable HOCM Target SBP 150-190 for vasospasm prophylaxis. Maintain preload, follow CVP, for hypervolemia. Use Levophed/Cardene PRN Continue Nimotop. (Recommendation for consideration of septal ablation on echo, patient is not a candidate for surgical intervention due to devastating neuro injury) Will ultimately need tight heart rate control and permanent beta blockade RESP: Acute respiratory failure HCAP PC/AC vent mode, adjust vent rate to keep EtCO2 28-33. Nebs prn and scheduled. Vent bundle. No vent weaning due to high ICP, severe encephalopathy Tracheostomy 04/29 : Rebollar required for hourly output. Keep UO more than 30 mL per hour GI: Restart tube feeds a.m. Lactulose to 30 ml q8. Dulcolax suppository PRN, Having BM GI -> PEG tube placement HEME: Serial Hgb. Monitor CBC ID: Sepsis HCAP with E Coli, Haemophilus Sputum cx EColi, haemophilus and blood cultures neg to date. On Zosyn 4.5 GM IV q6 04/15/16. Levaquin was added 04/16/16 to cover for Stenotrophomonas -DCd 04/19, restarted again 04/20/16- 04/26/16 Repeat panculture with blood urine and sputum cultures 04/17/16 negative to date CXR bilateral infiltrates, with leukocytosis and brown sputum Resend cultures due to low grade fever and increased WBC 04/20 -NEG to date ENDO: SSI for euglycemia, avoid hypokalemia, hypo Mag PX: SCDs. Protonix. Cleared by Dr. Morris to use Lovenox for chemical DVT prophylaxis on 04/19/16 Overall impression: Presented with severe SAH and left parenchymal bleed from ruptured aneurysm, with cerebral edema, elevated ICP. Prolonged intractable ICP elevation, then left decompressive hemicraniectomy, for new left frontoparietal hemorrhage, at request of family when option presented. Developed HCAP and severe sepsis. Remains critically ill and prognosis guarded at best, palliative care following. Will start lightening sedation tomorrow now that trach and PEG completed. Will attempt to remove free water. Remains critically ill. Critical care 34 mins Jeffrey Chand MD May 01, 2016 12:24
[2016-05-01] MEDS: ALBUMIN HUMAN 25% 12.5 GM/50 ML BAGP IV SCH (13:39)
[2016-05-01] MEDS: ACETAMINOPHEN 325MG/HYDROcodone 7.5MG/15ML UDC PO PRN ×2 (14:35→20:44)
[2016-05-01 16:32] LABS: POTASSIUM 3.4 MEQ/L (3.5-5.1)
[2016-05-01] MEDS: levETIRAcetam 500 MG/5 ML UDC TUBE SCH (20:43)
[2016-05-01] MEDS: LABETALOL HCL 100 MG/20 ML VIAL IVS PRN (20:44)
[2016-05-02] VITALS (19 sets, daily range): BP systolic 155–189; BP diastolic 68–86; PULSE 80–119; RESP 14–19; TEMP 98.5–101; O2SAT 100
--- NOTE | 2016-05-02 00:03 | MP ---
cc: CATRACHITO EDWARDS M.D. DATE OF SURGERY 04/29/2016 PREOPERATIVE DIAGNOSES 1. Intracerebral hemorrhage. 2. Ventilator dependence POSTOPERATIVE DIAGNOSES 1. Intracerebral hemorrhage. 2. Ventilator dependence. PROCEDURE Percutaneous tracheostomy tube by Dr. Catrachito Edwards. Bronchoscopy by Dr. Thibodeaux of Critical Care Medicine. INDICATIONS This is an unfortunate 46-year-old -[place] woman who suffered intracerebral hemorrhage. She has undergone a craniotomy and desire for supportive placement of a tracheostomy tube has been made known by her family. INTRAOPERATIVE FINDINGS About 50 cc blood loss. Successful placement of size 8 Shiley percutaneous low-pressure cuffed tracheostomy tube. Portable chest x-ray is pending. DESCRIPTION OF PROCEDURE IN DETAIL The patient was identified as Carla Pride in room 1315-A and a rolled sheet was placed behind the shoulders to allow for the head to be supported in extension. The anterior neck was prepped and draped in the usual sterile fashion with the prep kits. The large sterile drape was placed from the tracheostomy percutaneous kit. A time-out procedure was performed. Following completion of time-out procedure to everyone's satisfaction within the room, the 0.5% lidocaine with epinephrine was injected about a fingerbreadth and a half above the sternal notch. A 2-3 cm transverse incision was made with the scalpel and dissection continued posteriorly in the midline down to the level of the tracheal rings using a mosquito hemostat. Under direct bronchoscopic visualization with my finger on the tracheal rings, the endotracheal tube was withdrawn. The percutaneous introducer needle and sheath were placed into the trachea under direct visualization. The needle was removed and the guidewire was advanced through the sheath which was then removed. The punch was placed over the guidewire and the catheter guide and blue rhino dilator were then placed over the guidewire. The catheter guide, blue rhino dilator and the size 8 tracheostomy tube whose balloon had been tested for quality was then placed into the trachea and the guidewire catheter guide and the dilator were removed from the tracheostomy tube and the inner cannula was placed. The patient was connected to the ventilator with excellent oxygenation, ventilation and good tidal volumes. Several cc's of air was placed into the tracheostomy balloon. The tracheostomy tube was then fastened to the anterior neck with the Prolene sutures and a tracheostomy dressing was placed. A trach collar was placed by respiratory therapy and the RN at the bedside. During the procedure there was some venous bleeding which was controlled with direct pressure and this was the sole cause of the blood loss. At the end of the case there was no bleeding at all. A portable chest x-ray is pending. Appropriate sedative medications were prescribed by Dr. Thibodeaux during the procedure. Please refer to his dictation for details. MD KIMI Chou/SANDRA /1:50 PM /11:46 PM
[2016-05-02] MEDS: ALBUMIN HUMAN 25% 12.5 GM/50 ML BAGP IV SCH ×2 (00:21→12:27)
[2016-05-02] MEDS: METOPROLOL TARTRATE 25 MG TAB PO SCH (01:03)
[2016-05-02] MEDS: LABETALOL HCL 100 MG/20 ML VIAL IVS PRN ×4 (01:09→19:09)
[2016-05-02] MEDS: CHLORHEXIDINE GLUCONATE 2 % 1 PACK (2 CLOTHS) TOP SCH (03:22)
[2016-05-02] MEDS: niMODipine 30 MG CAP PO SCH ×2 (03:22→08:22)
[2016-05-02] MEDS: niCARdipine INJ 25 MG in SODIUM CHLOR 0.9% 250 ML INJ 250 ML IV SCH ×2 (03:41→14:35)
[2016-05-02] MEDS ORDERED: IOHEXOL 350 MG/ML 10 ML VIAL (for RAD DIAG) IV ONE (04:43)
[2016-05-02] MEDS: METOCLOPRAMIDE HCL 10 MG/2 ML VIAL IV PUSH SCH ×3 (05:10→20:48)
--- NOTE | 2016-05-02 05:22 | RADRPT ---
EXAM DATE/TIME: 05/02/2016 04:32 [place] COMPARISON: CTA BRAIN W 3D RECON, April 22, 2016, 9:26. INDICATIONS : Post-operative evaluation of coiling of left supraclinoid aneurysm. IV CONTRAST: 95 cc Omnipaque 350 (iohexol) IV RADIATION DOSE: 60.33 CTDIvol (mGy) MEDICAL HISTORY : Hypertension. SURGICAL HISTORY : Tubal ligation. ENCOUNTER: Subsequent ACUITY: 2 weeks PAIN SCALE: Non-responsive LOCATION: cranial TECHNIQUE: Volumetric scanning was performed using a multi-row detector CT scanner. The data was post processed with a variety of visualization algorithms including full volume maximum intensity projection, multi -planar sliding thin slab reformation, curved planar reformation, and surface rendering techniques. Using automated exposure control and adjustment of the mA and/or kV according to patient size, radiat ion dose was kept as low as reasonably achievable to obtain optimal diagnostic quality images. FINDINGS: Artifact is present from coils in the left supraclinoid carotid region. Filling of the middle cerebra l vessels this symmetric and intact. Tiny aneurysm at the left MCA bifurcation is stable. Posterior circulation vessels are stable. No new acute findings are identified. CONCLUSION: Satisfactory appearance post aneurysm coiling Fei Snyder MD on May 02, 2016 at 5:16 Board Certified Radiologist. This report was verified electronically.
[2016-05-02] MEDS: ACETAMINOPHEN 650 MG/20.3 ML UDC PO PRN (05:47)
[2016-05-02] MEDS: LABETALOL HCL 200 MG TAB PO SCH ×3 (06:15→20:48)
[2016-05-02] MEDS: FUROSEMIDE 20 MG/2 ML VIAL IV PUSH SCH ×2 (06:20→08:22)
--- NOTE | 2016-05-02 06:20 | HHI.CCPN ---
Subjective Remarks/Hospital Course SAH, unresponsive, malignant hypertension - This 46-year-old woman with a longstanding history of hypertension, was found unresponsive at her home and paramedics arrived to find her with shallow breathing and a Angelica coma scale of three. Systolic blood pressure was 290 and under bag mask ventilation. She was brought to the emergency department where she remained unresponsive and required endotracheal intubation, mechanical ventilation. A CT scan of the head showed a large left hemispheric intraparenchymal hemorrhage with subarachnoid blood as well. Subsequent evaluation confirmed a left middle cerebral artery aneurysm which appears to be the culprit lesion. She was brought immediately to the [facility] where we continued Cardene drip infusion for blood pressure control and placed arterial monitoring lines and central venous line. Electrolyte abnormalities were corrected, particularly severe hypokalemia. The ventilator was adjusted to maintain arterial CO2, between 35 and 40. She received Keppra loading intravenously and Nimotop through the nasogastric tube. Usual ICU monitoring was in place and arrangements were made, a ventriculostomy was placed, and transported expeditiously to interventional radiology where attempts will be made to coil the aneurysm. 04/12: Culprit (larger) aneurysm was coiled last evening. ICP acceptable with drainage bloody as expected. Withdraws 4 limbs to pain. 04/13: ICP starting to rise > 20, requiring vent manipulation, increased sedation, analgesia. 04/14: Intermittently ICP spiking >20, RR increased to 18, 50 mg of rocuronium 1. CT angiogram done today to rule out vasospasm 04/15: Remains heavily sedated for ICP control. Overall ICP control improved overnight-remained 12-14. Currently on propofol fentanyl and Versed. CT angiogram done yesterday 04/14/16 showed status post endovascular repair of left supraclinoid aneurysm, left M1 segment aneurysm stable no vasospasm. 04/16: Remains hypoxemic, FiO2 had to be increased to 70%, now down to 60%. Chest x-ray shows increasing right lower lobe infiltrate sputum with gram- negative rods. Blood pressure remains at target 04/17: ICP remains elevated at 22-25. Became hypothermic overnight, likely related to worsening sepsis. Repeat panculture ordered, and vancomycin 04/18: Labile hypertension. Start patient limits expanded to 150-190 systolic. Became more hypoxic now on 90% FiO2. Chest x-ray shows slight increase in right lower lobe infiltrate. Sodium at target 04/19: Remains critically ill with intermittent ICP elevation. ABG shows respiratory alkalosis, minute ventilation reduce which caused ICP to increase further. 3% saline restarted and 23% saline 1 bolus ordered. Chest x-ray shows slight improvement in the right lower lung infiltrate 04/20: ICP elevated to 31, 23% bolus given with improvement to 12-15. Low-grade fever with increase in white count to 16.4. Will send panculture. CTA brain in am 04/21: Remains critically ill with intermittent ICP elevation. ICP controlled with 23% bolus. Keeping sodium 150-160. CT head, CTA 04/22/1604/22: CT of the head shows evolving left frontoparietal hemorrhage with increasing midline shift 1.5 cm left to right. Intermittent ICP elevation was responsive to 23% saline. D/W Neurosurgery. 04/23: Intubated and ICP elevation up to 27, optimized on medical therapy and hyperosmolar therapy. Prognosis very poor according to neurosurgery. Per Dr. Ruiz, patient has suffered significant dominant hemisphere frontal temporal lobe hemorrhage and and consequent cerebral injury which reduces likelihood of functional recovery. Palliative care consulted-will meet with family today 04/24: Overnight high ICP elevations up to 40s. Currently 17-20. Family meeting with palliative care. Optimized on hyperosmolar therapy. Ct head per Dr. Meléndez- large frontal hemorrhage with mass effect, persistent midline shift 04/25: ICP remains high despite maximum hyperosmolar therapy. Family requests aggressive care. Dr. Meléndez is planning for left decompressive craniectomy 04/26: Patient is s/p Left frontotemporal parietal decompressive craniotomy and evacuation of temporal hematoma. ICP better controlled 04-09, remains heavily sedated 04/27: ICP remains better control, 11-12. No acute events overnight. Overnight off Cardene or Levophed. Sedation vacation not approved by neurosurgery yet 04/28: Remains intubated sedated, ICP well control, CT of the head pending. Status post PEG tube placement, plan is for tracheostomy tomorrow. Increased 3 % saline to 30 mL per hour. 04/29: Ventric raised to 10. Will start SBTs. PEG placed, start TFs. Trach in place. Clean, dry. 04/30: Will lighten sedation and proceed with spontaneous breathing trials when OK with Dr. Meléndez. 05/01: Plans noted. Agree. Will mainatin hypertension and allow patient to slowly diurese extra free water. D/C antibiotics as NG. Check C. diff culture. 05/02: Stopped all antibiotics and antifungals. Will reculture completely and check C.diff PCR ahead of possible DIRECTOR OF KNOWLEDGE MANAGEMENT shunt placement thursday. Cardene requirements remain high - will start scheduled labetalol and gentle diuretic. Way ahead free water. Will continue to keep well hydrtaed and hypertensive for SAH vasospasm prevention. Objective - Vital Signs Date Time Temp Pulse Resp B/P Pulse Ox O2 Delivery O2 Flow Rate FiO2 05/02/16 06:00 88 05/02/16 04:15 100 05/02/16 04:00 40 05/02/16 04:00 100.3 16 174/75 Intake and Output 05/01/16 05/01/16 05/02/16 08:00 16:00 00:00 Intake Total 1580 ml 2427 ml 1261 ml Output Total 2025 ml 6890 ml 3917 ml Balance -445 ml -4463 ml -2656 ml Result Diagram: 04/29/16 0445 05/02/16 0331 Other Results Laboratory Tests Test 04/11/16 04/11/16 04/12/16 13:06 20:44 05:58 Blood Gas Puncture Site ART LINE ART LINE ART LINE Blood Gas Patient Temperature 98.6 98.6 98.6 Blood Gas HCO3 20 mmol/L 21 mmol/L 19 mmol/L (22-26) (22-26) (22-26) Blood Gas Base Excess -4.2 mmol/L -3.1 mmol/L -4.9 mmol/L (-2-2) (-2-2) (-2-2) Blood Gas Oxygen Saturation 98 % (90-100) 98 % (90-100) 97 % (90-100) Arterial Blood pH 7.40 7.42 7.42 (7.380-7.420) (7.380-7.420) (7.380-7.420) Arterial Blood Partial 33 mmHg (38-42) 33 mmHg (38-42) 30 mmHg (38-42) Pressure CO2 Arterial Blood Partial 372 mmHg 450 mmHg 135 mmHg Pressure O2 (61-120) (61-120) (61-120) Arterial Blood Oxygen Content 11.0 Vol % 10.2 Vol % 15.4 Vol % (12.0-20.0) (12.0-20.0) (12.0-20.0) Arterial Blood 1.5 % (0-4) 1.4 % (0-4) 1.3 % (0-4) Carboxyhemoglobin Arterial Blood Methemoglobin 1.2 % (0-2) 1.2 % (0-2) 1.1 % (0-2) Blood Gas Hemoglobin 7.3 G/DL 6.5 G/DL 11.2 G/DL (12.0-16.0) (12.0-16.0) (12.0-16.0) Oxygen Delivery Device VENT VENTILATOR VENTILATOR Blood Gas Ventilator Setting PRVC/20RATE/500/5PEE PRVC/AC PRVC/AC Blood Gas Inspired Oxygen 100 % 100 % 40 % Objective Remarks Infusions Propofol -> off Fentanyl -> off. Versed -> off GEN: Middle-aged female, intubated and sedated, critically ill. Craniotomy dressing in place, dry, clean HEENT: Atraumatic. EVD in place. Pupils 2 mm nonreactive. Tongue swollen and still protuberant NECK: Supple. No resistance to motion. Trach in place, clean, dry. LUNGS: Clear, no wheezes or crackles. Some mobile secretions. HEART: Normal S1-S2, tachycardia, harsh ystolic murmur LSB to apex. ABDOMEN: Soft, nontender, nondistended, no guarding, bowel sounds hyperactive. EXTREMITIES: Warm, well-perfused. NEUROLOGIC: Pupils 2 mm, nonreactive, No withdrawal to pain. EVD in place. Opens eyes randomly, not to stimulation. A/P Assessment and Plan Acute subarachnoid hemorrhage, left middle cerebral artery aneurysm Large left frontal hemorrhage Intracranial hypertension Acute respiratory failure on mechanical ventilation RLL pneumonia/E Coli in sputum Sepsis Acute encephalopathy Malignant hypertension Status post coiling of MCA aneurysm Severe LV concentric hypertrophy. Probable HOCM Hypokalemia History of hypertension Lactic acidosis PLAN: NEURO: Acute subarachnoid hemorrhage, left middle cerebral artery aneurysm Intracranial hypertension, uncontrolled Acute encephalopathy s/p left decompressive craniotomy 04/25/16 and evacuation of temporal hematoma s/p endovascular coiling of ruptured cerebral aneurysm Patient has suffered significant dominant hemisphere frontal temporal lobe hemorrhage and consequent cerebral injury which reduces likelihood of functional recovery. Family request aggressive care and Dr. Meléndez performed left decompressive craniotomy 04/25/16 and evacuation of temporal hematoma Sedation/analgesia (Propofol, Versed and Fentanyl) to help control ICP. Mild hypervolemia using CVP. No spontaneous awakening trial until approved by N/S. f/u CT head today 04/28/16 Continue Ventricular drain. Keppra, Nimotop. Treat fever aggressively. Nimbex for ICP control-DCd 04/21/16 23% PRN for ICP >20. Keep Na 150-155. 3% gtt at [address] angiogram done 04/14, 04/16/16, 04/22/16 showed status post endovascular repair of left supraclinoid aneurysm, left M1 segment aneurysm stable no vasospasm. Continue with hypervolemia and hypertension for vasospasm prevention. Target SBP 180 for vasospasm prophylaxis. Will start reducing sedation when OK with Neurosurgery. Palliative care following remains full code CV: Uncontrolled HTN, now permissive Severe LV concentric hypertrophy. Probable HOCM Target SBP 150-190 for vasospasm prophylaxis. Maintain preload, follow CVP, for hypervolemia. Use Levophed/Cardene PRN Continue Nimotop. (Recommendation for consideration of septal ablation on echo, patient is not a candidate for surgical intervention due to devastating neuro injury) Will ultimately need tight heart rate control and permanent beta blockade RESP: Acute respiratory failure HCAP PC/AC vent mode, adjust vent rate to keep EtCO2 28-33. Nebs prn and scheduled. Vent bundle. No vent weaning due to high ICP, severe encephalopathy Tracheostomy 04/29 : Rebollar required for hourly output. Keep UO more than 30 mL per hour GI: Restart tube feeds a.m. Lactulose to 30 ml q8. Dulcolax suppository PRN, Having BM GI -> PEG tube placement HEME: Serial Hgb. Monitor CBC ID: Sepsis HCAP with E Coli, Haemophilus Sputum cx EColi, haemophilus and blood cultures neg to date. On Zosyn 4.5 GM IV q6 04/15/16. Levaquin was added 04/16/16 to cover for Stenotrophomonas -DCd 04/19, restarted again 04/20/16- 04/26/16 Repeat panculture with blood urine and sputum cultures 04/17/16 negative to date CXR bilateral infiltrates, with leukocytosis and brown sputum Resend cultures due to low grade fever and increased WBC 04/20 -NEG to date ENDO: SSI for euglycemia, avoid hypokalemia, hypo Mag PX: SCDs. Protonix. Cleared by Dr. Morris to use Lovenox for chemical DVT prophylaxis on 04/19/16 Overall impression: Presented with severe SAH and left parenchymal bleed from ruptured aneurysm, with cerebral edema, elevated ICP. Prolonged intractable ICP elevation, then left decompressive hemicraniectomy, for new left frontoparietal hemorrhage, at request of family when option presented. Developed HCAP and severe sepsis. Remains critically ill and prognosis guarded at best, palliative care following. Stopped all antibiotics and antifungals. Will reculture completely and check C.diff PCR ahead of possible DIRECTOR OF KNOWLEDGE MANAGEMENT shunt placement thursday. Cardene requirements remain high - will start scheduled labetalol and gentle diuretic. Way ahead free water. Will continue to keep well hydrated and hypertensive for SAH vasospasm prevention. Remains critically ill and at risk for vasospasm. Critical care 39 mins Jeffrey Chand MD May 02, 2016 06:20
[2016-05-02] MEDS: levETIRAcetam 500 MG/5 ML UDC TUBE SCH ×2 (08:22→20:48)
[2016-05-02] MEDS: PANTOPRAZOLE SODIUM 40 MG VIAL IV SCH (08:22)
[2016-05-02] MEDS: SODIUM CHLORIDE 0.9% FLUSH 5 ML FLUSH IVF SCH ×2 (08:22→20:48)
--- NOTE | 2016-05-02 09:53 | HHI.NSPN ---
(Genna Madrid) History Chief Complaint: status post coil for aneurysm (Genna Madrid) Interval History 04/12/16: Patient had an aneurysm coiled yesterday, intubated and sedated, ICP stable overnight 04/13/16: Increased ICP overnight, improved after a 23% saline bolus 04/14/16: ICP stable overnight 04/15/16: ICP stable, CTA stable no vasospasm 04/16/16: ICP slight increase overnight now stabilized, intubated and sedated 04/17/16: ICP increased yesterday afternoon, repeat CTA and CT stable, no vasospasm, no new hemorrhage, hypothermia overnight 04/21/16: increasing ICP over the weekend, getting 23% every 6 hours PRN. 04/22/16: ICP responding over night to 23% saline, CT and CTA planned this am. Nimbex off since yesterday. 04/23/16: ICP stable overnight, SBP increasing today RN adjusting pressors, HGB improved after 2 units of PRBC, no signs of active bleeding 04/24/16: ICP increased overnight with stimulation but not sustained, low HGB again today receiving PRBC this am 04/25/16: ICP max 38 overnight, currently 10, no family at bedside. 04/26/16: She has ventriculostomy drain in place. She underwent left decompressive craniectomy yesterday 04/[address] Meléndez due to elevated ICPs. Today, ICPs improved, currently 4. 04/27/16: intermittent spikes in ICPs overnight in low 20's controlled with hyperosmotic bolus. Currently 9. well sedated. 04/28/16: ICP stable between 9-14 per RN. EVD draining blood tinged CSF, flap firm non-pulsatile 04/29/16: ICP stable overnight, PEG yesterday, Trach today. 04/30/16: EVD clamped 05/01/16: EVD clamped, ICP max 17, currently 14. 05/02/16: EVD draining, ICP 9, no sedation (Genna Madrid) Exam Results Vital Signs Date Time Temp Pulse Resp B/P Pulse Ox O2 Delivery O2 Flow Rate FiO2 05/02/16 08:23 100 40 05/02/16 06:47 15 05/02/16 06:00 88 05/02/16 04:00 100.3 174/75 Intake and Output 05/01/16 05/01/16 05/01/16 07:59 15:59 23:59 Intake Total 1580 ml 2427 ml 1261 ml Output Total 2025 ml 6890 ml 3917 ml Balance -445 ml -4463 ml -2656 ml (Genna Madrid) Physical Examination Ms. Pride is intubated and on NO sedation. EVD is draining at [id number]. Incision is well approximated. Khai intact. Flap soft and non-pulsatile. Wound clean. Pupils 3 mm nonreactive. Right lateral gaze. Mild oculocephalics and mild corneal No withdrawals x 4 extremities to deep pain. Tracheostomy and PEG tube in place (Genna Madrid) Lab, Micro, Other Results Last Impressions Head CTA 05/02/16 0600 Signed Impressions: Service Date/Time: Monday, May 02, 2016 04:32 - CONCLUSION: Satisfactory appearance post aneurysm coiling Fei Snyder MD Head CT 04/30/16 0000 Signed Impressions: Service Date/Time: May 04:20 - CONCLUSION: There again is significant hemorrhage and edema remaining in the left temporal region. There has been interval increase in size of the ventricular system since the previous study. Sunny Berger MD Chest X-Ray 04/30/16 0000 Signed Impressions: Service Date/Time: Saturday, April 30, 2016 19:33 - CONCLUSION: 1. Cardiac enlargement. Bilateral airspace disease. Pleural effusion, left greater than right. Findings similar to April 29 considering differences in technique. Tracheostomy unchanged. Quinn Bateman MD Abdomen/Pelvis CT 04/24/16 1416 Signed Impressions: Service Date/Time: March 14:39 - CONCLUSION: Mild small bowel ileus with scattered air-fluid levels. Bibasilar lung consolidation with associated small effusions. Significant soft tissue fluid accumulation with edematous changes throughout the abdominal wall. Nasogastric tube in good position. Saqib Garcia MD Neck CTA 04/11/16 1151 Signed Impressions: Service Date/Time: Monday, April 11, 2016 12:01 - CONCLUSION: Negative for hemodynamically significant carotid stenosis. Ricardo Castellanos MD FACR Cerebral Arteriogram 04/11/16 0000 Signed Impressions: Service Date/Time: Monday, April 11, 2016 14:18 - CONCLUSION: 1. 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 This is the aneurysm felt responsible for the intracranial hemorrhage. 2. Small 4 mm left M1 segment aneurysm. Attempts at embolizing this aneurysm were unsuccessful due to the broad based nature of the aneurysm. Endovascular repair of this aneurysm could not be performed. Kennedy Thibodeaux Jr., MD Laboratory Tests Test 05/01/16 05/02/16 15:20 03:31 Sodium Level 145 MEQ/L 142 MEQ/L Potassium Level 3.4 MEQ/L Serum Osmolality 302 MOSM/KG 289 MOSM/KG (Genna Madrid) Medical Decision Making Impression and Plan Impression: 1. Neurologic exam stable following endovascular coiling of ruptured cerebral aneurysm with subsequent left decompressive craniotomy 04/14/16 CT angiogram stable: Status post endovascular repair of left supraclinoid aneurysm. Left M1 segment aneurysm stable 04/16/[address] and CTA stable. No vasospasm, no new hemorrhage. 04/22/16: Head CT 14mm left to right shift, and CTA perfusion, no vasospasm 04/28/16: stable, shift decreased to 7mm 05/01/16: stable, mild ventriculomegaly, improving mass effect and shift 05/02/16: CTA brain stable, no vasospasm reported Plan: Maintain EVD at [id number]. Plan to clamp it Saturday 05/[address] Sunday 05/06. Repeat CSF culture and gram stain 05/05. Possible [employer] shunt placement 05/06 pending CSF culture and head CT next Thursday. may resume Lovenox from a neurosurgery standpoint, will need held Saturday 05/05 for possible Thursday procedure Nimodipine d/c 05/02 (21 days and no vasospasm) Maintain systolic blood pressure 110-160 range Continue to monitor sodium level, keep 145-155. 23% saline for ICP over 25. Hold for Na+ greater than 160. Molecular Biology Scientist following for medical management Tarahra for seizure prophylaxis. Protonix for ulcer prophylaxis Tube feeds as tolerated. (Genna Madrid) Attending Statement The exam, history, and the medical decision-making described in the above note were completed with the assistance of the mid-level provider. I reviewed and agree with the findings presented. I attest that I had a [id number] encounter with the patient on the same day, and personally performed and documented my assessment and findings in the medical record. (Sherwin Meléndez MD ) Genna Madrid May 02, 2016 09:52 Sherwin Meléndez MD May 02, 2016 20:24
[2016-05-02 18:25] LABS: MAGNESIUM 1.7 MG/DL (1.5-2.5); POTASSIUM 3.3 MEQ/L (3.5-5.1)
[2016-05-02 18:45] LABS: C. DIFF EPI 027 PRESUMPTIVE NEGATIVE (NEGATIVE); C. DIFF TOXIN PCR NEGATIVE (NEGATIVE)
[2016-05-03] VITALS (17 sets, daily range): BP systolic 128–193; BP diastolic 84–92; PULSE 85–106; RESP 14–19; TEMP 98.5–99.2; O2SAT 100
[2016-05-03] MEDS: ALBUMIN HUMAN 25% 12.5 GM/50 ML BAGP IV SCH ×2 (01:37→12:12)
[2016-05-03] MEDS: LABETALOL HCL 100 MG/20 ML VIAL IVS PRN ×5 (01:41→23:28)
[2016-05-03] MEDS: CHLORHEXIDINE GLUCONATE 2 % 1 PACK (2 CLOTHS) TOP SCH (03:33)
[2016-05-03 04:45] LABS: AUTOMATED NEUTROPHIL # 13.3 TH/MM3 (1.8-7.7); BASOPHIL % 0.2 % (0.0-2.0); EOSINOPHIL # 0.4 TH/MM3 (0-0.4); EOSINOPHIL % 2.5 % (0.0-4.0); HEMATOCRIT 24.5 % (35.0-46.0); LYMPH % 8.7 % (9.0-44.0); LYMPHOCYTE # 1.4 TH/MM3 (1.0-4.8); MEAN CELL VOLUME 76.4 FL (80.0-100.0); MEAN CORPUSCULAR HEMOGLOBIN 25.4 PG (27.0-34.0); MEAN CORPUSCULAR HGB CONC 33.2 % (32.0-36.0); NEUT % 81.6 % (16.0-70.0); PLATELET COUNT 393 TH/MM3 (150-450); RED BLOOD COUNT 3.21 MIL/MM3 (4.00-5.30); RED CELL DISTRIBUTION WIDTH 26.6 % (11.6-17.2); WHITE BLOOD COUNT 16.4 TH/MM3 (4.0-11.0)
[2016-05-03 04:57] LABS: HEMO FLAGS AUTO DIFF
[2016-05-03 05:17] LABS: MAGNESIUM 1.8 MG/DL (1.5-2.5); POTASSIUM 3.1 MEQ/L (3.5-5.1)
[2016-05-03] MEDS: METOCLOPRAMIDE HCL 10 MG/2 ML VIAL IV PUSH SCH ×3 (05:19→21:19)
[2016-05-03] MEDS: LABETALOL HCL 200 MG TAB PO SCH ×3 (05:19→21:21)
[2016-05-03] MEDS: POTASSIUM CHLOR 20 MEQ PREMIX 100 ML IV PRN ×3 (05:37→10:15)
[2016-05-03 06:12] LABS: EOSINOPHILS 1 % (0-4); METAMYELOCYTES 2 % (0-1); MYELOCYTES 1 % (0-0); NEUTROPHIL # MANUAL DIFF 14.8 TH/MM3 (1.8-7.7); POLYS (SEG NEUTROPHILS) 87 % (16-70); WBC DIFF SAMPLE 100
[2016-05-03 06:13] LABS: OVALOCYTES 1+ (NORMAL); PLATELET ESTIMATE SMEAR NORMAL (NORMAL); PLATELET MORPHOLOGY NORMAL (NORMAL); SCAN/DIFF FINAL DIFF MANUAL
[2016-05-03] MEDS: PANTOPRAZOLE SODIUM 40 MG VIAL IV SCH (08:11)
[2016-05-03] MEDS: SODIUM CHLORIDE 0.9% FLUSH 5 ML FLUSH IVF SCH ×2 (08:12→21:21)
[2016-05-03] MEDS: levETIRAcetam 500 MG/5 ML UDC TUBE SCH ×2 (08:12→21:18)
[2016-05-03] MEDS: FUROSEMIDE 20 MG/2 ML VIAL IV PUSH SCH (08:12)
--- NOTE | 2016-05-03 09:41 | HHI.NSPN ---
History Chief Complaint: status post coil for aneurysm Interval History 05/03/16: Pt with eyes open. Not following commands. Pupils 4mm bilaterally reactive bilaterally. Ventriculostomy in place at [id number]. ICP 8. System Review Comments Not able to obtain given clinical condition. Exam Results Vital Signs Date Time Temp Pulse Resp B/P Pulse Ox O2 Delivery O2 Flow Rate FiO2 05/03/16 08:00 98.6 97 19 165/84 100 05/03/16 08:00 40 Intake and Output 05/02/16 05/02/16 05/03/16 08:00 16:00 00:00 Intake Total 593 ml 296 ml 441 ml Output Total 1726 ml 2956 ml 761 ml Balance -1133 ml -2660 ml -320 ml Physical Examination Resp: CTA bilaterally. Tracheostomy and PEG tube in place. PRVC A/C rate 14. Heart: NSR no murmurs Abd: Soft positive bs. Skin: Incision clean and dry without signs of infection. Neuro: Pupils 3 mm reactive bilaterally. EVD is draining at [id number]. ICP 8. Draining gold colored CSF. Muscle: Not following for muscle testing. Edema in UEs. Lab, Micro, Other Results Laboratory Tests Test 05/02/16 05/02/16 05/02/16 05/03/16 17:00 17:30 18:11 04:23 Stool C. difficile Toxin (PCR) NEGATIVE Stl C. difficile Toxin PRESUMPTIVE Epiderm 027 NEGATIVE Sodium Level 137 MEQ/L 138 MEQ/L Potassium Level 3.3 MEQ/L 3.1 MEQ/L Phosphorus Level 2.8 MG/DL 3.1 MG/DL Magnesium Level 1.7 MG/DL 1.8 MG/DL Serum Osmolality 283 MOSM/KG 285 MOSM/KG White Blood Count 16.4 TH/MM3 Red Blood Count 3.21 MIL/MM3 Hemoglobin 8.1 GM/DL Hematocrit 24.5 % Mean Corpuscular Volume 76.4 FL Mean Corpuscular Hemoglobin 25.4 PG Mean Corpuscular Hemoglobin 33.2 % Concent Red Cell Distribution Width 26.6 % Platelet Count 393 TH/MM3 Mean Platelet Volume 7.8 FL Neutrophils (%) (Auto) 81.6 % Lymphocytes (%) (Auto) 8.7 % Monocytes (%) (Auto) 7.0 % Eosinophils (%) (Auto) 2.5 % Basophils (%) (Auto) 0.2 % Neutrophils # (Auto) 13.3 TH/MM3 Lymphocytes # (Auto) 1.4 TH/MM3 Monocytes # (Auto) 1.2 TH/MM3 Eosinophils # (Auto) 0.4 TH/MM3 Basophils # (Auto) 0.0 TH/MM3 CBC Comment AUTO DIFF Differential Total Cells 100 Counted Neutrophils % (Manual) 87 % Lymphocytes % 6 % Monocytes % 3 % Eosinophils % 1 % Neutrophils # (Manual) 14.8 TH/MM3 Metamyelocytes 2 % Myelocytes 1 % Differential Comment FINAL DIFF MANUAL Platelet Estimate NORMAL Platelet Morphology Comment NORMAL Ovalocytes 1+ 05/02/16 05/02/16 05/03/16 15:00 23:00 07:00 Intake Total 296 ml 441 ml 272 ml Output Total 2956 ml 761 ml 269 ml Balance -2660 ml -320 ml 3 ml IV Total 93 ml 263 ml 63 ml Tube Feeding 143 ml 128 ml 159 ml Other 60 ml 50 ml 50 ml Output Urine Total 2900 ml 650 ml 200 ml Stool Total 0 ml 0 ml Drainage Total 56 ml 111 ml 69 ml Medical Decision Making Impression and Plan A: 46 y/o FM with neurologic exam stable following endovascular coiling of ruptured cerebral aneurysm with subsequent left decompressive craniotomy 04/14/16 CT angiogram stable: Status post endovascular repair of left supraclinoid aneurysm. Left M1 segment aneurysm stable 04/16/[address] and CTA stable. No vasospasm, no new hemorrhage. 04/22/16: Head CT 14mm left to right shift, and CTA perfusion, no vasospasm 04/28/16: stable, shift decreased to 7mm 05/01/16: stable, mild ventriculomegaly, improving mass effect and shift 05/02/16: CTA brain stable, no vasospasm reported Plan: Maintain EVD at [id number]. Plan to clamp it Saturday 05/[address] Sunday 05/06. Repeat CSF culture and gram stain 05/05. Possible [employer] shunt placement 05/06 pending CSF culture and head CT next Thursday. may resume Lovenox from a neurosurgery standpoint, will need held Saturday 05/05 for possible Thursday procedure Nimodipine d/c 05/02 (21 days and no vasospasm) Maintain systolic blood pressure 110-160 range Continue to monitor sodium level, keep 145-155. 23% saline for ICP over 25. Hold for Na+ greater than 160. Religious Activities Director following for medical management Keppra for seizure prophylaxis. Protonix for ulcer prophylaxis Tube feeds as tolerated. Nathen Braxton May 03, 2016 09:41
[2016-05-03 16:19] LABS: MAGNESIUM 1.9 MG/DL (1.5-2.5); POTASSIUM 3.9 MEQ/L (3.5-5.1)
--- NOTE | 2016-05-03 18:08 | HHI.CCPN ---
Subjective Remarks/Hospital Course SAH, unresponsive, malignant hypertension - This 46-year-old woman with a longstanding history of hypertension, was found unresponsive at her home and paramedics arrived to find her with shallow breathing and a Angelica coma scale of three. Systolic blood pressure was 290 and under bag mask ventilation. She was brought to the emergency department where she remained unresponsive and required endotracheal intubation, mechanical ventilation. A CT scan of the head showed a large left hemispheric intraparenchymal hemorrhage with subarachnoid blood as well. Subsequent evaluation confirmed a left middle cerebral artery aneurysm which appears to be the culprit lesion. She was brought immediately to the [facility] where we continued Cardene drip infusion for blood pressure control and placed arterial monitoring lines and central venous line. Electrolyte abnormalities were corrected, particularly severe hypokalemia. The ventilator was adjusted to maintain arterial CO2, between 35 and 40. She received Keppra loading intravenously and Nimotop through the nasogastric tube. Usual ICU monitoring was in place and arrangements were made, a ventriculostomy was placed, and transported expeditiously to interventional radiology where attempts will be made to coil the aneurysm. 04/12: Culprit (larger) aneurysm was coiled last evening. ICP acceptable with drainage bloody as expected. Withdraws 4 limbs to pain. 04/13: ICP starting to rise > 20, requiring vent manipulation, increased sedation, analgesia. 04/14: Intermittently ICP spiking >20, RR increased to 18, 50 mg of rocuronium 1. CT angiogram done today to rule out vasospasm 04/15: Remains heavily sedated for ICP control. Overall ICP control improved overnight-remained 12-14. Currently on propofol fentanyl and Versed. CT angiogram done yesterday 04/14/16 showed status post endovascular repair of left supraclinoid aneurysm, left M1 segment aneurysm stable no vasospasm. 04/16: Remains hypoxemic, FiO2 had to be increased to 70%, now down to 60%. Chest x-ray shows increasing right lower lobe infiltrate sputum with gram- negative rods. Blood pressure remains at target 04/17: ICP remains elevated at 22-25. Became hypothermic overnight, likely related to worsening sepsis. Repeat panculture ordered, and vancomycin 04/18: Labile hypertension. Start patient limits expanded to 150-190 systolic. Became more hypoxic now on 90% FiO2. Chest x-ray shows slight increase in right lower lobe infiltrate. Sodium at target 04/19: Remains critically ill with intermittent ICP elevation. ABG shows respiratory alkalosis, minute ventilation reduce which caused ICP to increase further. 3% saline restarted and 23% saline 1 bolus ordered. Chest x-ray shows slight improvement in the right lower lung infiltrate 04/20: ICP elevated to 31, 23% bolus given with improvement to 12-15. Low-grade fever with increase in white count to 16.4. Will send panculture. CTA brain in am 04/21: Remains critically ill with intermittent ICP elevation. ICP controlled with 23% bolus. Keeping sodium 150-160. CT head, CTA 04/22/1604/22: CT of the head shows evolving left frontoparietal hemorrhage with increasing midline shift 1.5 cm left to right. Intermittent ICP elevation was responsive to 23% saline. D/W Neurosurgery. 04/23: Intubated and ICP elevation up to 27, optimized on medical therapy and hyperosmolar therapy. Prognosis very poor according to neurosurgery. Per Dr. Ruiz, patient has suffered significant dominant hemisphere frontal temporal lobe hemorrhage and and consequent cerebral injury which reduces likelihood of functional recovery. Palliative care consulted-will meet with family today 04/24: Overnight high ICP elevations up to 40s. Currently 17-20. Family meeting with palliative care. Optimized on hyperosmolar therapy. Ct head per Dr. Meléndez- large frontal hemorrhage with mass effect, persistent midline shift 04/25: ICP remains high despite maximum hyperosmolar therapy. Family requests aggressive care. Dr. Meléndez is planning for left decompressive craniectomy 04/26: Patient is s/p Left frontotemporal parietal decompressive craniotomy and evacuation of temporal hematoma. ICP better controlled 04-09, remains heavily sedated 04/27: ICP remains better control, 11-12. No acute events overnight. Overnight off Cardene or Levophed. Sedation vacation not approved by neurosurgery yet 04/28: Remains intubated sedated, ICP well control, CT of the head pending. Status post PEG tube placement, plan is for tracheostomy tomorrow. Increased 3 % saline to 30 mL per hour. 04/29: Ventric raised to 10. Will start SBTs. PEG placed, start TFs. Trach in place. Clean, dry. 04/30: Will lighten sedation and proceed with spontaneous breathing trials when OK with Dr. Meléndez. 05/01: Plans noted. Agree. Will mainatin hypertension and allow patient to slowly diurese extra free water. D/C antibiotics as NG. Check C. diff culture. 05/02: Stopped all antibiotics and antifungals. Will reculture completely and check C.diff PCR ahead of possible KNOT SAW OPERATOR shunt placement thursday. Cardene requirements remain high - will start scheduled labetalol and gentle diuretic. Way ahead free water. Will continue to keep well hydrated and hypertensive for SAH vasospasm prevention. 05/03: Urine insignificant colonization, no invasive infection. Others NGTD. Holding abx. Culture for fevers. Diuresing well while mainataining good perfusion pressure. Objective - Vital Signs Date Time Temp Pulse Resp B/P Pulse Ox O2 Delivery O2 Flow Rate FiO2 05/03/16 17:13 100 40 05/03/16 16:00 98.7 96 14 173/84 Intake and Output 05/02/16 05/02/16 05/03/16 08:00 16:00 00:00 Intake Total 593 ml 296 ml 441 ml Output Total 1726 ml 2956 ml 761 ml Balance -1133 ml -2660 ml -320 ml Result Diagram: 05/03/16 0423 05/03/16 1545 Other Results Laboratory Tests Test 04/11/16 04/11/16 04/12/16 13:06 20:44 05:58 Blood Gas Puncture Site ART LINE ART LINE ART LINE Blood Gas Patient Temperature 98.6 98.6 98.6 Blood Gas HCO3 20 mmol/L 21 mmol/L 19 mmol/L (22-26) (22-26) (22-26) Blood Gas Base Excess -4.2 mmol/L -3.1 mmol/L -4.9 mmol/L (-2-2) (-2-2) (-2-2) Blood Gas Oxygen Saturation 98 % (90-100) 98 % (90-100) 97 % (90-100) Arterial Blood pH 7.40 7.42 7.42 (7.380-7.420) (7.380-7.420) (7.380-7.420) Arterial Blood Partial 33 mmHg (38-42) 33 mmHg (38-42) 30 mmHg (38-42) Pressure CO2 Arterial Blood Partial 372 mmHg 450 mmHg 135 mmHg Pressure O2 (61-120) (61-120) (61-120) Arterial Blood Oxygen Content 11.0 Vol % 10.2 Vol % 15.4 Vol % (12.0-20.0) (12.0-20.0) (12.0-20.0) Arterial Blood 1.5 % (0-4) 1.4 % (0-4) 1.3 % (0-4) Carboxyhemoglobin Arterial Blood Methemoglobin 1.2 % (0-2) 1.2 % (0-2) 1.1 % (0-2) Blood Gas Hemoglobin 7.3 G/DL 6.5 G/DL 11.2 G/DL (12.0-16.0) (12.0-16.0) (12.0-16.0) Oxygen Delivery Device VENT VENTILATOR VENTILATOR Blood Gas Ventilator Setting PRVC/20RATE/500/5PEE PRVC/AC PRVC/AC Blood Gas Inspired Oxygen 100 % 100 % 40 % Objective Remarks Infusions Propofol -> off Fentanyl -> off. Versed -> off GEN: Middle-aged female, intubated and sedated, critically ill. Craniotomy dressing in place, dry, clean HEENT: Atraumatic. EVD in place. Pupils 2 mm nonreactive. Tongue swollen and still protuberant NECK: Supple. No resistance to motion. Trach in place, clean, dry. LUNGS: Clear, no wheezes or crackles. Some mobile secretions. HEART: Normal S1-S2, tachycardia, harsh systolic murmur LSB to apex. ABDOMEN: Soft, nontender, nondistended, no guarding, bowel sounds hyperactive. EXTREMITIES: Warm, well-perfused. NEUROLOGIC: Pupils 2 mm, nonreactive, No withdrawal to pain. EVD in place. Opens eyes randomly, not to stimulation or voice. A/P Assessment and Plan Acute subarachnoid hemorrhage, left middle cerebral artery aneurysm Large left frontal hemorrhage Intracranial hypertension Acute respiratory failure on mechanical ventilation RLL pneumonia/E Coli in sputum Sepsis Acute encephalopathy Malignant hypertension Status post coiling of MCA aneurysm Severe LV concentric hypertrophy. Probable HOCM Hypokalemia History of hypertension Lactic acidosis PLAN: NEURO: Acute subarachnoid hemorrhage, left middle cerebral artery aneurysm Intracranial hypertension, uncontrolled Acute encephalopathy s/p left decompressive craniotomy 04/25/16 and evacuation of temporal hematoma s/p endovascular coiling of ruptured cerebral aneurysm Patient has suffered significant dominant hemisphere frontal temporal lobe hemorrhage and consequent cerebral injury which reduces likelihood of functional recovery. Family request aggressive care and Dr. Meléndez performed left decompressive craniotomy 04/25/16 and evacuation of temporal hematoma Sedation/analgesia (Propofol, Versed and Fentanyl) to help control ICP. Mild hypervolemia using CVP. No spontaneous awakening trial until approved by N/S. f/u CT head today 04/28/16 Continue Ventricular drain. Keppra, Nimotop. Treat fever aggressively. Nimbex for ICP control-DCd 04/21/16 23% PRN for ICP >20. Keep Na 150-155. 3% gtt at [address] angiogram done 04/14, 04/16/16, 04/22/16 showed status post endovascular repair of left supraclinoid aneurysm, left M1 segment aneurysm stable no vasospasm. Continue with hypervolemia and hypertension for vasospasm prevention. Target SBP 180 for vasospasm prophylaxis. Will start reducing sedation when OK with Neurosurgery. Palliative care following remains full code CV: Uncontrolled HTN, now permissive Severe LV concentric hypertrophy. Probable HOCM Target SBP 150-190 for vasospasm prophylaxis. Maintain preload, follow CVP, for hypervolemia. Use Levophed/Cardene PRN Continue Nimotop. (Recommendation for consideration of septal ablation on echo, patient is not a candidate for surgical intervention due to devastating neuro injury) Will ultimately need tight heart rate control and permanent beta blockade RESP: Acute respiratory failure HCAP PC/AC vent mode, adjust vent rate to keep EtCO2 28-33. Nebs prn and scheduled. Vent bundle. No vent weaning due to high ICP, severe encephalopathy Tracheostomy 04/29 : Rebollar required for hourly output. Continue diuresis and Na concentration. GI: Restart tube feeds a.m. Lactulose to 30 ml q8. Dulcolax suppository PRN, Having BM GI -> PEG tube placement HEME: Serial Hgb. Monitor CBC ID: Sepsis HCAP with E Coli, Haemophilus Sputum cx EColi, haemophilus and blood cultures neg to date. On Zosyn 4.5 GM IV q6 04/15/16. Levaquin was added 04/16/16 to cover for Stenotrophomonas -DCd 04/19, restarted again 04/20/16- 04/26/16 Repeat panculture with blood urine and sputum cultures 04/17/16 negative to date CXR bilateral infiltrates, with leukocytosis and brown sputum Resend cultures due to low grade fever and increased WBC 04/20 -NEG to date ENDO: SSI for euglycemia, avoid hypokalemia, hypo Mag PX: SCDs. Protonix. Cleared by Dr. Morris to use Lovenox for chemical DVT prophylaxis on 04/19/16 Overall impression: Presented with severe SAH and left parenchymal bleed from ruptured aneurysm, with cerebral edema, elevated ICP. Prolonged intractable ICP elevation, then left decompressive hemicraniectomy, for new left frontoparietal hemorrhage, at request of family when option presented. Developed HCAP and severe sepsis. Remains critically ill and prognosis guarded at best, palliative care following. Stopped all antibiotics and antifungals. Will reculture completely and check C.diff PCR ahead of possible KNOT SAW OPERATOR shunt placement thursday. Cardene requirements remain high - will start scheduled labetalol and gentle diuretic. Way ahead free water. Will continue to keep well hydrated and hypertensive for SAH vasospasm prevention. Remains critically ill and at risk for vasospasm. So far tolerating diuresis while maintaining SBP > 170 Critical care 34 mins Jeffrey Chand MD May 03, 2016 18:07
[2016-05-03] MEDS: SODIUM CHLORIDE 23.4% INJ 188 MEQ in SODIUM CHLOR 0.9% 1000 ML INJ 1,000 ML IV SCH (21:21)
[2016-05-03] MEDS: RESP: ALBUTEROL 2.5 MG/IPRATROPIUM 0.5 MG NEB (PRN) INH (21:38)
[2016-05-04] VITALS (16 sets, daily range): BP systolic 159–189; BP diastolic 82–92; PULSE 90–109; RESP 14–16; TEMP 98.2–100.3; O2SAT 100
[2016-05-04] MEDS: ALBUMIN HUMAN 25% 12.5 GM/50 ML BAGP IV SCH (01:36)
[2016-05-04] MEDS: RESP: ALBUTEROL 2.5 MG/IPRATROPIUM 0.5 MG NEB (PRN) INH (03:37)
[2016-05-04] MEDS: CHLORHEXIDINE GLUCONATE 2 % 1 PACK (2 CLOTHS) TOP SCH (03:55)
[2016-05-04 05:46] LABS: BASOPHIL # 0.1 TH/MM3 (0-0.2); BASOPHIL % 0.7 % (0.0-2.0); EOSINOPHIL # 0.7 TH/MM3 (0-0.4); EOSINOPHIL % 4.8 % (0.0-4.0); LYMPH % 9.7 % (9.0-44.0); LYMPHOCYTE # 1.3 TH/MM3 (1.0-4.8); MEAN CELL VOLUME 77.5 FL (80.0-100.0); MEAN CORPUSCULAR HGB CONC 32.3 % (32.0-36.0); MONO % 12.4 % (0.0-8.0); NEUT % 72.4 % (16.0-70.0); PLATELET COUNT 416 TH/MM3 (150-450); RED BLOOD COUNT 2.97 MIL/MM3 (4.00-5.30); RED CELL DISTRIBUTION WIDTH 26.1 % (11.6-17.2); WHITE BLOOD COUNT 13.8 TH/MM3 (4.0-11.0)
[2016-05-04 05:48] LABS: HEMO FLAGS AUTO DIFF
[2016-05-04] MEDS: METOCLOPRAMIDE HCL 10 MG/2 ML VIAL IV PUSH SCH (05:49)
[2016-05-04] MEDS: LABETALOL HCL 200 MG TAB PO SCH ×3 (05:49→21:33)
[2016-05-04 06:05] LABS: POTASSIUM 3.5 MEQ/L (3.5-5.1)
[2016-05-04 07:32] LABS: BANDS 2 % (0-6); EOSINOPHILS 4 % (0-4); METAMYELOCYTES 1 % (0-1); MYELOCYTES 2 % (0-0); NEUTROPHIL # MANUAL DIFF 11.9 TH/MM3 (1.8-7.7); PLATELET ESTIMATE SMEAR NORMAL (NORMAL); PLATELET MORPHOLOGY NORMAL (NORMAL); POLYS (SEG NEUTROPHILS) 81 % (16-70); SCAN/DIFF FINAL DIFF MANUAL; WBC DIFF SAMPLE 100
[2016-05-04] MEDS: LABETALOL HCL 100 MG/20 ML VIAL IVS PRN ×3 (07:45→17:38)
--- NOTE | 2016-05-04 08:14 | HHI.CCPN ---
Subjective Remarks/Hospital Course SAH, unresponsive, malignant hypertension - This 46-year-old woman with a longstanding history of hypertension, was found unresponsive at her home and paramedics arrived to find her with shallow breathing and a Angelica coma scale of three. Systolic blood pressure was 290 and under bag mask ventilation. She was brought to the emergency department where she remained unresponsive and required endotracheal intubation, mechanical ventilation. A CT scan of the head showed a large left hemispheric intraparenchymal hemorrhage with subarachnoid blood as well. Subsequent evaluation confirmed a left middle cerebral artery aneurysm which appears to be the culprit lesion. She was brought immediately to the [facility] where we continued Cardene drip infusion for blood pressure control and placed arterial monitoring lines and central venous line. Electrolyte abnormalities were corrected, particularly severe hypokalemia. The ventilator was adjusted to maintain arterial CO2, between 35 and 40. She received Keppra loading intravenously and Nimotop through the nasogastric tube. Usual ICU monitoring was in place and arrangements were made, a ventriculostomy was placed, and transported expeditiously to interventional radiology where attempts will be made to coil the aneurysm. 04/12: Culprit (larger) aneurysm was coiled last evening. ICP acceptable with drainage bloody as expected. Withdraws 4 limbs to pain. 04/13: ICP starting to rise > 20, requiring vent manipulation, increased sedation, analgesia. 04/14: Intermittently ICP spiking >20, RR increased to 18, 50 mg of rocuronium 1. CT angiogram done today to rule out vasospasm 04/15: Remains heavily sedated for ICP control. Overall ICP control improved overnight-remained 12-14. Currently on propofol fentanyl and Versed. CT angiogram done yesterday 04/14/16 showed status post endovascular repair of left supraclinoid aneurysm, left M1 segment aneurysm stable no vasospasm. 04/16: Remains hypoxemic, FiO2 had to be increased to 70%, now down to 60%. Chest x-ray shows increasing right lower lobe infiltrate sputum with gram- negative rods. Blood pressure remains at target 04/17: ICP remains elevated at 22-25. Became hypothermic overnight, likely related to worsening sepsis. Repeat panculture ordered, and vancomycin 04/18: Labile hypertension. Start patient limits expanded to 150-190 systolic. Became more hypoxic now on 90% FiO2. Chest x-ray shows slight increase in right lower lobe infiltrate. Sodium at target 04/19: Remains critically ill with intermittent ICP elevation. ABG shows respiratory alkalosis, minute ventilation reduce which caused ICP to increase further. 3% saline restarted and 23% saline 1 bolus ordered. Chest x-ray shows slight improvement in the right lower lung infiltrate 04/20: ICP elevated to 31, 23% bolus given with improvement to 12-15. Low-grade fever with increase in white count to 16.4. Will send panculture. CTA brain in am 04/21: Remains critically ill with intermittent ICP elevation. ICP controlled with 23% bolus. Keeping sodium 150-160. CT head, CTA 04/22/1604/22: CT of the head shows evolving left frontoparietal hemorrhage with increasing midline shift 1.5 cm left to right. Intermittent ICP elevation was responsive to 23% saline. D/W Neurosurgery. 04/23: Intubated and ICP elevation up to 27, optimized on medical therapy and hyperosmolar therapy. Prognosis very poor according to neurosurgery. Per Dr. Ruiz, patient has suffered significant dominant hemisphere frontal temporal lobe hemorrhage and and consequent cerebral injury which reduces likelihood of functional recovery. Palliative care consulted-will meet with family today 04/24: Overnight high ICP elevations up to 40s. Currently 17-20. Family meeting with palliative care. Optimized on hyperosmolar therapy. Ct head per Dr. Meléndez- large frontal hemorrhage with mass effect, persistent midline shift 04/25: ICP remains high despite maximum hyperosmolar therapy. Family requests aggressive care. Dr. Meléndez is planning for left decompressive craniectomy 04/26: Patient is s/p Left frontotemporal parietal decompressive craniotomy and evacuation of temporal hematoma. ICP better controlled 04-09, remains heavily sedated 04/27: ICP remains better control, 11-12. No acute events overnight. Overnight off Cardene or Levophed. Sedation vacation not approved by neurosurgery yet 04/28: Remains intubated sedated, ICP well control, CT of the head pending. Status post PEG tube placement, plan is for tracheostomy tomorrow. Increased 3 % saline to 30 mL per hour. 04/29: Ventric raised to 10. Will start SBTs. PEG placed, start TFs. Trach in place. Clean, dry. 04/30: Will lighten sedation and proceed with spontaneous breathing trials when OK with Dr. Meléndez. 05/01: Plans noted. Agree. Will mainatin hypertension and allow patient to slowly diurese extra free water. D/C antibiotics as NG. Check C. diff culture. 05/02: Stopped all antibiotics and antifungals. Will reculture completely and check C.diff PCR ahead of possible HUMAN DEVELOPMENT PROFESSOR shunt placement thursday. Cardene requirements remain high - will start scheduled labetalol and gentle diuretic. Way ahead free water. Will continue to keep well hydrated and hypertensive for SAH vasospasm prevention. 05/03: Urine insignificant colonization, no invasive infection. Others NGTD. Holding abx. Culture for fevers. Diuresing well while maintaining good perfusion pressure. 05/04: Good peripheral perfusion after aggressive diuresis. If creatinine OK will give one dose tobramycin to sterilize to lightly colonized urine. Hypertensive urgency persists, favorable actually for her disease state. Objective - Vital Signs Date Time Temp Pulse Resp B/P Pulse Ox O2 Delivery O2 Flow Rate FiO2 05/04/16 06:00 103 05/04/16 04:23 100 40 05/04/16 04:00 98.2 14 189/86 Intake and Output 05/03/16 05/03/16 05/04/16 08:00 16:00 00:00 Intake Total 272 ml 749 ml 359 ml Output Total 269 ml 1118 ml 725 ml Balance 3 ml -369 ml -366 ml Result Diagram: 05/04/16 0530 05/04/16 0530 Other Results Laboratory Tests Test 04/11/16 04/11/16 04/12/16 13:06 20:44 05:58 Blood Gas Puncture Site ART LINE ART LINE ART LINE Blood Gas Patient Temperature 98.6 98.6 98.6 Blood Gas HCO3 20 mmol/L 21 mmol/L 19 mmol/L (22-26) (22-26) (22-26) Blood Gas Base Excess -4.2 mmol/L -3.1 mmol/L -4.9 mmol/L (-2-2) (-2-2) (-2-2) Blood Gas Oxygen Saturation 98 % (90-100) 98 % (90-100) 97 % (90-100) Arterial Blood pH 7.40 7.42 7.42 (7.380-7.420) (7.380-7.420) (7.380-7.420) Arterial Blood Partial 33 mmHg (38-42) 33 mmHg (38-42) 30 mmHg (38-42) Pressure CO2 Arterial Blood Partial 372 mmHg 450 mmHg 135 mmHg Pressure O2 (61-120) (61-120) (61-120) Arterial Blood Oxygen Content 11.0 Vol % 10.2 Vol % 15.4 Vol % (12.0-20.0) (12.0-20.0) (12.0-20.0) Arterial Blood 1.5 % (0-4) 1.4 % (0-4) 1.3 % (0-4) Carboxyhemoglobin Arterial Blood Methemoglobin 1.2 % (0-2) 1.2 % (0-2) 1.1 % (0-2) Blood Gas Hemoglobin 7.3 G/DL 6.5 G/DL 11.2 G/DL (12.0-16.0) (12.0-16.0) (12.0-16.0) Oxygen Delivery Device VENT VENTILATOR VENTILATOR Blood Gas Ventilator Setting PRVC/20RATE/500/5PEE PRVC/AC PRVC/AC Blood Gas Inspired Oxygen 100 % 100 % 40 % Objective Remarks Infusions Propofol -> off Fentanyl -> off. Versed -> off GEN: Middle-aged female, intubated and sedated, critically ill. Craniotomy dressing in place, dry, clean HEENT: Atraumatic. EVD in place. Pupils 2 mm nonreactive. Tongue swollen but less protuberant NECK: Supple. No resistance to motion. Trach in place, clean, dry. LUNGS: Clear, no wheezes or crackles. Some mobile secretions. HEART: Normal S1-S2, tachycardia, loud systolic murmur LSB to apex. ABDOMEN: Soft, nontender, nondistended, no guarding, bowel sounds hyperactive. EXTREMITIES: Warm, well-perfused. 2+ peripheral edema. NEUROLOGIC: Pupils 2 mm, nonreactive, No withdrawal to pain. EVD in place. Opens eyes randomly, not to stimulation or voice. A/P Assessment and Plan Acute subarachnoid hemorrhage, left middle cerebral artery aneurysm Large left frontal hemorrhage Intracranial hypertension Acute respiratory failure on mechanical ventilation RLL pneumonia/E Coli in sputum Sepsis Acute encephalopathy Malignant hypertension Status post coiling of MCA aneurysm Severe LV concentric hypertrophy. Probable HOCM Hypokalemia History of hypertension Lactic acidosis PLAN: NEURO: Acute subarachnoid hemorrhage, left middle cerebral artery aneurysm Intracranial hypertension, uncontrolled Acute encephalopathy s/p left decompressive craniotomy 04/25/16 and evacuation of temporal hematoma s/p endovascular coiling of ruptured cerebral aneurysm Patient has suffered significant dominant hemisphere frontal temporal lobe hemorrhage and consequent cerebral injury which reduces likelihood of functional recovery. Family request aggressive care and Dr. Meléndez performed left decompressive craniotomy 04/25/16 and evacuation of temporal hematoma Sedation/analgesia (Propofol, Versed and Fentanyl) to help control ICP. Mild hypervolemia using CVP. No spontaneous awakening trial until approved by N/S. f/u CT head today 04/28/16 Continue Ventricular drain. Keppra, Nimotop. Treat fever aggressively. Nimbex for ICP control-DCd 04/21/16 23% PRN for ICP >20. Keep Na 150-155. 3% gtt at [address] angiogram done 04/14, 04/16/16, 04/22/16 showed status post endovascular repair of left supraclinoid aneurysm, left M1 segment aneurysm stable no vasospasm. Continue with hypervolemia and hypertension for vasospasm prevention. Target SBP 180 for vasospasm prophylaxis. Will start reducing sedation when OK with Neurosurgery. Palliative care following, remains full code CV: Uncontrolled HTN, now permissive Severe LV concentric hypertrophy. Probable HOCM Target SBP 150-190 for vasospasm prophylaxis. Maintain preload, follow CVP, for hypervolemia. Use Levophed/Cardene PRN Continue Nimotop. (Recommendation for consideration of septal ablation on echo, patient is not a candidate for surgical intervention due to devastating neuro injury) Continue heart rate control and antihypertensives. Keep SBP < 190. RESP: Acute respiratory failure HCAP PC/AC vent mode, adjust vent rate to keep EtCO2 28-33. Nebs prn and scheduled. Vent bundle. No vent weaning due to high ICP, severe encephalopathy Tracheostomy 04/29 : Rebollar required for hourly output. Continue diuresis and Na concentration. May need assistance with 3% saline again. GI: Restart tube feeds a.m. Lactulose to 30 ml q8. Dulcolax suppository PRN, Having BM GI -> PEG tube placement HEME: Serial Hgb. Monitor CBC ID: Sepsis HCAP with E Coli, Haemophilus Sputum cx EColi, haemophilus and blood cultures neg to date. On Zosyn 4.5 GM IV q6 04/15/16. Levaquin was added 04/16/16 to cover for Stenotrophomonas -DCd 04/19, restarted again 04/20/16- 04/26/16 Repeat panculture with blood urine and sputum cultures 04/17/16 negative to date CXR bilateral infiltrates, with leukocytosis and brown sputum Resend cultures due to low grade fever and increased WBC 04/20 -NEG to date ENDO: SSI for euglycemia, avoid hypokalemia, hypo Mag PX: SCDs. Protonix. Cleared by Dr. Morris to use Lovenox for chemical DVT prophylaxis on 04/19/16 Overall impression: Presented with severe SAH and left parenchymal bleed from ruptured aneurysm, with cerebral edema, elevated ICP. Prolonged intractable ICP elevation, then left decompressive hemicraniectomy, for new left frontoparietal hemorrhage, at request of family when option presented. Developed HCAP and severe sepsis. Remains critically ill and prognosis guarded at best, palliative care following. Stopped all antibiotics and antifungals 05/02. We have recultured completely. C.diff PCR negative. Possible HUMAN DEVELOPMENT PROFESSOR shunt placement thursday. Will continue to keep well hydrated and hypertensive for SAH vasospasm prevention. Remains critically ill and at risk for vasospasm. So far tolerating diuresis while maintaining SBP > 190. Double labetalol oral. Critical care 46 mins Jeffrey Chand MD May 04, 2016 08:14
[2016-05-04] MEDS: levETIRAcetam 500 MG/5 ML UDC TUBE SCH ×2 (08:19→21:33)
[2016-05-04] MEDS: FUROSEMIDE 20 MG/2 ML VIAL IV PUSH SCH (08:20)
[2016-05-04] MEDS: SODIUM CHLORIDE 0.9% FLUSH 5 ML FLUSH IVF SCH ×2 (08:20→21:32)
[2016-05-04] MEDS: PANTOPRAZOLE SODIUM 40 MG VIAL IV SCH (08:20)
[2016-05-04] MEDS: POTASSIUM CL 40 MEQ/30 ML LIQ UDC PO/TUBE PRN (08:20)
--- NOTE | 2016-05-04 09:12 | HHI.NSPN ---
History Chief Complaint: status post coil for aneurysm Interval History 05/03/16: Pt with eyes open. Not following commands. Pupils 4mm bilaterally reactive bilaterally. Ventriculostomy in place at [id number]. ICP 8. 05/04/16: Pt with eyes open. Not following commands. Pupils 4mm bilaterally reactive bilaterally. Ventriculostomy in place at [id number]. ICP 8. System Review Comments Not able to obtain given level of alertness. Exam Results Vital Signs Date Time Temp Pulse Resp B/P Pulse Ox O2 Delivery O2 Flow Rate FiO2 05/04/16 09:01 100 40 05/04/16 06:00 103 05/04/16 04:00 98.2 14 189/86 Intake and Output 05/03/16 05/03/16 05/04/16 08:00 16:00 00:00 Intake Total 272 ml 749 ml 359 ml Output Total 269 ml 1118 ml 725 ml Balance 3 ml -369 ml -366 ml Physical Examination Resp: CTA bilaterally. Tracheostomy in place. PRVC A/C rate 14. Heart: NSR no murmurs Abd: Soft positive bs. PEG in place. Skin: Incision clean and dry without signs of infection. SCDs and heel protect boots in place. Neuro: Pupils 4 mm reactive bilaterally. EVD is draining at [id number]. ICP 8. Draining gold colored CSF. Muscle: Not following for muscle testing. Lab, Micro, Other Results Laboratory Tests Test 05/03/16 05/03/16 05/03/16 05/04/16 13:30 15:45 23:56 05:30 Serum Osmolality 288 MOSM/KG 287 MOSM/KG 310 MOSM/KG 287 MOSM/KG Sodium Level 138 MEQ/L 138 MEQ/L Potassium Level 3.9 MEQ/L 3.5 MEQ/L Phosphorus Level 2.9 MG/DL 3.1 MG/DL Magnesium Level 1.9 MG/DL 2.0 MG/DL White Blood Count 13.8 TH/MM3 Red Blood Count 2.97 MIL/MM3 Hemoglobin 7.4 GM/DL Hematocrit 23.0 % Mean Corpuscular Volume 77.5 FL Mean Corpuscular Hemoglobin 25.0 PG Mean Corpuscular Hemoglobin 32.3 % Concent Red Cell Distribution Width 26.1 % Platelet Count 416 TH/MM3 Mean Platelet Volume 7.4 FL Neutrophils (%) (Auto) 72.4 % Lymphocytes (%) (Auto) 9.7 % Monocytes (%) (Auto) 12.4 % Eosinophils (%) (Auto) 4.8 % Basophils (%) (Auto) 0.7 % Neutrophils # (Auto) 10.0 TH/MM3 Lymphocytes # (Auto) 1.3 TH/MM3 Monocytes # (Auto) 1.7 TH/MM3 Eosinophils # (Auto) 0.7 TH/MM3 Basophils # (Auto) 0.1 TH/MM3 CBC Comment AUTO DIFF Differential Total Cells 100 Counted Neutrophils % (Manual) 81 % Band Neutrophils % 2 % Lymphocytes % 7 % Monocytes % 3 % Eosinophils % 4 % Neutrophils # (Manual) 11.9 TH/MM3 Metamyelocytes 1 % Myelocytes 2 % Differential Comment FINAL DIFF MANUAL Platelet Estimate NORMAL Platelet Morphology Comment NORMAL 05/03/16 05/03/16 05/04/16 15:00 23:00 07:00 Intake Total 749 ml 359 ml 357 ml Output Total 1118 ml 725 ml 360 ml Balance -369 ml -366 ml -3 ml IV Total 420 ml 138 ml 153 ml Tube Feeding 159 ml 171 ml 154 ml Albumin 50 ml Other 120 ml 50 ml 50 ml Output Urine Total 1000 ml 650 ml 350 ml Stool Total 100 ml 0 ml 0 ml Drainage Total 18 ml 75 ml 10 ml Medical Decision Making Impression and Plan A: 46 y/o FM with neurologic exam stable following endovascular coiling of ruptured cerebral aneurysm with subsequent left decompressive craniotomy 04/14/16 CT angiogram stable: Status post endovascular repair of left supraclinoid aneurysm. Left M1 segment aneurysm stable 04/16/[address] and CTA stable. No vasospasm, no new hemorrhage. 04/22/16: Head CT 14mm left to right shift, and CTA perfusion, no vasospasm 04/28/16: stable, shift decreased to 7mm 05/01/16: stable, mild ventriculomegaly, improving mass effect and shift 05/02/16: CTA brain stable, no vasospasm reported Plan: Maintain EVD at [id number]. Plan to clamp it Saturday 05/[address] Sunday 05/06. Repeat CSF culture and gram stain 05/05. Possible MILK TE[employer] shunt placement 05/06 pending CSF culture and head CT next Thursday. may resume Lovenox from a neurosurgery standpoint, will need held Saturday 05/05 for possible Thursday procedure Nimodipine d/c 05/02 (21 days and no vasospasm) Maintain systolic blood pressure 110-160 range Continue to monitor sodium level, keep 145-155. 23% saline for ICP over 25. Hold for Na+ greater than 160. Senior Economist following for medical management Keppra for seizure prophylaxis. Protonix for ulcer prophylaxis Tube feeds as tolerated. Nathen Braxton May 04, 2016 09:12
[2016-05-04 10:07] LABS: APTT (PATIENT) 30.4 SEC (22.6-28.8); INTERNATIONAL NORMALIZED RATIO 1.1 RATIO; PROTHROMBIN TIME - PATIENT 10.7 SEC (9.8-11.4)
[2016-05-04 10:42] LABS: ALKALINE PHOSPHATASE 111 U/L (45-117); ALT (GPT) 39 U/L (10-53); ANION GAP 9 MEQ/L (5-15); AST (GOT) 75 U/L (15-37); BICARBONATE 30.3 MEQ/L (21.0-32.0); BLOOD UREA NITROGEN 12 MG/DL (7-18); CHLORIDE 100 MEQ/L (98-107); GLOMERULAR FILTRATION RATE 143 ML/MIN (>89); POTASSIUM 3.9 MEQ/L (3.5-5.1); SODIUM (NA) 139 MEQ/L (136-145); TOTAL BILIRUBIN ADULT 0.7 MG/DL (0.2-1.0)
[2016-05-04] MEDS: METOCLOPRAMIDE HCL SYRUP 10 MG/10 ML UDC PO SCH ×2 (11:00→16:36)
[2016-05-04 16:28] LABS: MAGNESIUM 1.9 MG/DL (1.5-2.5); POTASSIUM 3.6 MEQ/L (3.5-5.1)
[2016-05-04] MEDS: niCARdipine INJ 25 MG in SODIUM CHLOR 0.9% 250 ML INJ 250 ML IV SCH ×2 (18:34→20:43)
[2016-05-04] MEDS: SODIUM CHLORIDE 23.4% INJ 188 MEQ in SODIUM CHLOR 0.9% 1000 ML INJ 1,000 ML IV SCH (20:00)
[2016-05-04] MEDS: NOREPINEPHRINE INJ 4 MG in SODIUM CHLOR 0.9% 250 ML INJ 250 ML IV SCH (22:23)
[2016-05-05] VITALS (19 sets, daily range): BP systolic 146–187; BP diastolic 76–97; PULSE 92–114; RESP 14–17; TEMP 99.3–100.6; O2SAT 100
[2016-05-05] MEDS: LABETALOL HCL 100 MG/20 ML VIAL IVS PRN ×3 (00:36→22:23)
[2016-05-05] MEDS: METOCLOPRAMIDE HCL SYRUP 10 MG/10 ML UDC PO SCH ×3 (02:31→16:38)
[2016-05-05] MEDS: niCARdipine INJ 25 MG in SODIUM CHLOR 0.9% 250 ML INJ 250 ML IV SCH ×4 (03:37→23:09)
[2016-05-05] MEDS: CHLORHEXIDINE GLUCONATE 2 % 1 PACK (2 CLOTHS) TOP SCH (04:49)
[2016-05-05] MEDS: SODIUM CHLORIDE 23.4% INJ 188 MEQ in SODIUM CHLOR 0.9% 1000 ML INJ 1,000 ML IV SCH (04:49)
[2016-05-05 05:03] LABS: AUTOMATED NEUTROPHIL # 10.1 TH/MM3 (1.8-7.7); BASOPHIL # 0.1 TH/MM3 (0-0.2); BASOPHIL % 1.1 % (0.0-2.0); EOSINOPHIL # 0.6 TH/MM3 (0-0.4); EOSINOPHIL % 4.2 % (0.0-4.0); HEMATOCRIT 23.2 % (35.0-46.0); LYMPH % 9.7 % (9.0-44.0); LYMPHOCYTE # 1.3 TH/MM3 (1.0-4.8); MEAN CELL VOLUME 77.7 FL (80.0-100.0); MEAN CORPUSCULAR HEMOGLOBIN 25.2 PG (27.0-34.0); MEAN CORPUSCULAR HGB CONC 32.5 % (32.0-36.0); MONO % 11.8 % (0.0-8.0); NEUT % 73.2 % (16.0-70.0); PLATELET COUNT 432 TH/MM3 (150-450); RED BLOOD COUNT 2.99 MIL/MM3 (4.00-5.30); WHITE BLOOD COUNT 13.8 TH/MM3 (4.0-11.0)
[2016-05-05 05:05] LABS: HEMO FLAGS AUTO DIFF
[2016-05-05 05:25] LABS: MAGNESIUM 1.9 MG/DL (1.5-2.5); POTASSIUM 3.4 MEQ/L (3.5-5.1)
[2016-05-05] MEDS: LABETALOL HCL 200 MG TAB PO SCH ×4 (06:00→20:28)
[2016-05-05 07:43] LABS: SCAN/DIFF AUTO DIFF CONFIRMED
[2016-05-05] MEDS: levETIRAcetam 500 MG/5 ML UDC TUBE SCH ×2 (08:38→20:28)
[2016-05-05] MEDS: SODIUM CHLORIDE 0.9% FLUSH 5 ML FLUSH IVF SCH ×2 (08:38→20:28)
[2016-05-05] MEDS: FUROSEMIDE 20 MG/2 ML VIAL IV PUSH SCH (08:38)
[2016-05-05] MEDS: PANTOPRAZOLE SODIUM 40 MG VIAL IV SCH (08:38)
[2016-05-05] MEDS: POTASSIUM CL 40 MEQ/30 ML LIQ UDC PO/TUBE PRN (09:11)
--- NOTE | 2016-05-05 10:06 | HHI.NSPN ---
Subjective History Day 24 after PCOM aneurysm bleed and coiling, Pupils reactives, eyes now open and she is more alert. EVD was clamped this am, remains straw coloured. Vitals . Vital Signs Date Time Temp Pulse Resp B/P Pulse Ox O2 Delivery O2 Flow Rate FiO2 05/05/16 08:59 100 40 05/05/16 08:00 99.5 114 17 176/88 100 05/05/16 08:00 40 05/05/16 08:00 110 05/05/16 06:00 102 05/05/16 04:00 40 05/05/16 04:00 96 05/05/16 04:00 99.3 96 14 164/78 100 05/05/16 03:50 100 40 05/05/16 02:00 102 05/05/16 01:01 100 40 05/05/16 00:00 40 05/05/16 00:00 96 05/05/16 00:00 99.9 96 14 187/97 100 05/04/16 22:33 100 40 05/04/16 22:00 90 05/04/16 20:55 100 40 05/04/16 20:00 100.3 102 15 164/82 100 05/04/16 20:00 109 05/04/16 20:00 40 05/04/16 17:05 100 40 05/04/16 16:00 100 05/04/16 16:00 100.3 100 14 159/84 100 05/04/16 12:27 100 40 05/04/16 12:00 99.0 109 16 179/83 100 05/04/16 12:00 109 05/04/16 05/04/16 05/05/16 15:00 23:00 07:00 Intake Total 509 ml 654 ml 663 ml Output Total 1925 ml 661 ml 934 ml Balance -1416 ml -7 ml -271 ml Intracranial Pressure (mmHg): 7 Physical Exam Head Head Remarks Intubated, off sedation, eyes open to stimulation, pupils are 3mm reactive, corneals and gag reflexes are present. She flexes both LEs to stimulation No Cuellar or Babinski EVD site dry, intact Neuro Mental Status: Lethargic Pupils: Reactive Bilaterally Angelica Coma Scale Best Eye Openin - Spontaneous Best Verbal: 1 - None Best Motor: 3 - Flexion/decorticate Total Glascow Coma Scale (GCS): 8 Cardiac Cardiac: Regular Rate & Rhythm Genitourinary Genitourinary: Rebollar Catheter In Place Musculoskeletal Extremities Upper Extremities Deltoid Bicep Tricep HI W. Ext Right Left Lower Extremeties Ilio Quad Plantar Dorsi EHL Right Left Extremities Edema: Edematous Objective Infectious Disease Antibiotics (indicate IV PO) Microbiology Date/Time Procedure Status Source Growth 05/02/16 14:08 Aerobic Blood Culture - Preliminary Resulted Blood Peripheral NO GROWTH IN 2 DAYS 05/02/16 14:08 Anaerobic Blood Culture - Preliminary Resulted Blood Peripheral NO GROWTH IN 2 DAYS 05/02/16 14:13 Aerobic Blood Culture - Preliminary Resulted Blood Peripheral NO GROWTH IN 2 DAYS 05/02/16 14:13 Anaerobic Blood Culture - Preliminary Resulted Blood Peripheral NO GROWTH IN 2 DAYS Labs Laboratory Tests 05/04/16 15:48 05/05/16 04:45 Laboratory Tests Test 05/04/16 05/04/16 05/05/16 05/05/16 13:24 15:48 00:50 04:45 Serum Osmolality 290 MOSM/KG 289 MOSM/KG 291 MOSM/KG 294 MOSM/KG Sodium Level 140 MEQ/L 141 MEQ/L Potassium Level 3.6 MEQ/L 3.4 MEQ/L Phosphorus Level 3.5 MG/DL 3.2 MG/DL Magnesium Level 1.9 MG/DL 1.9 MG/DL Creatinine 0.55 MG/DL Estimat Glomerular Filtration 143 ML/MIN Rate Assessment & Plan Assessment Stable clinically, now past vasospasm risk, will keep MAP 140-160 and CPP above 65. CSF was sent for routine chemistries and culture, EVD is clamped. Possible VPS next week. Critical Care Time (minutes): 10 Kolby Morris MD May 05, 2016 10:06
--- NOTE | 2016-05-05 10:19 | HHI.CCPN ---
Subjective Remarks/Hospital Course SAH, unresponsive, malignant hypertension - This 46-year-old woman with a longstanding history of hypertension, was found unresponsive at her home and paramedics arrived to find her with shallow breathing and a Angelica coma scale of three. Systolic blood pressure was 290 and under bag mask ventilation. She was brought to the emergency department where she remained unresponsive and required endotracheal intubation, mechanical ventilation. A CT scan of the head showed a large left hemispheric intraparenchymal hemorrhage with subarachnoid blood as well. Subsequent evaluation confirmed a left middle cerebral artery aneurysm which appears to be the culprit lesion. She was brought immediately to the [facility] where we continued Cardene drip infusion for blood pressure control and placed arterial monitoring lines and central venous line. Electrolyte abnormalities were corrected, particularly severe hypokalemia. The ventilator was adjusted to maintain arterial CO2, between 35 and 40. She received Keppra loading intravenously and Nimotop through the nasogastric tube. Usual ICU monitoring was in place and arrangements were made, a ventriculostomy was placed, and transported expeditiously to interventional radiology where attempts will be made to coil the aneurysm. 04/12: Culprit (larger) aneurysm was coiled last evening. ICP acceptable with drainage bloody as expected. Withdraws 4 limbs to pain. 04/13: ICP starting to rise > 20, requiring vent manipulation, increased sedation, analgesia. 04/14: Intermittently ICP spiking >20, RR increased to 18, 50 mg of rocuronium 1. CT angiogram done today to rule out vasospasm 04/15: Remains heavily sedated for ICP control. Overall ICP control improved overnight-remained 12-14. Currently on propofol fentanyl and Versed. CT angiogram done yesterday 04/14/16 showed status post endovascular repair of left supraclinoid aneurysm, left M1 segment aneurysm stable no vasospasm. 04/16: Remains hypoxemic, FiO2 had to be increased to 70%, now down to 60%. Chest x-ray shows increasing right lower lobe infiltrate sputum with gram- negative rods. Blood pressure remains at target 04/17: ICP remains elevated at 22-25. Became hypothermic overnight, likely related to worsening sepsis. Repeat panculture ordered, and vancomycin 04/18: Labile hypertension. Start patient limits expanded to 150-190 systolic. Became more hypoxic now on 90% FiO2. Chest x-ray shows slight increase in right lower lobe infiltrate. Sodium at target 04/19: Remains critically ill with intermittent ICP elevation. ABG shows respiratory alkalosis, minute ventilation reduce which caused ICP to increase further. 3% saline restarted and 23% saline 1 bolus ordered. Chest x-ray shows slight improvement in the right lower lung infiltrate 04/20: ICP elevated to 31, 23% bolus given with improvement to 12-15. Low-grade fever with increase in white count to 16.4. Will send panculture. CTA brain in am 04/21: Remains critically ill with intermittent ICP elevation. ICP controlled with 23% bolus. Keeping sodium 150-160. CT head, CTA 04/22/1604/22: CT of the head shows evolving left frontoparietal hemorrhage with increasing midline shift 1.5 cm left to right. Intermittent ICP elevation was responsive to 23% saline. D/W Neurosurgery. 04/23: Intubated and ICP elevation up to 27, optimized on medical therapy and hyperosmolar therapy. Prognosis very poor according to neurosurgery. Per Dr. Ruiz, patient has suffered significant dominant hemisphere frontal temporal lobe hemorrhage and and consequent cerebral injury which reduces likelihood of functional recovery. Palliative care consulted-will meet with family today 04/24: Overnight high ICP elevations up to 40s. Currently 17-20. Family meeting with palliative care. Optimized on hyperosmolar therapy. Ct head per Dr. Meléndez- large frontal hemorrhage with mass effect, persistent midline shift 04/25: ICP remains high despite maximum hyperosmolar therapy. Family requests aggressive care. Dr. Meléndez is planning for left decompressive craniectomy 04/26: Patient is s/p Left frontotemporal parietal decompressive craniotomy and evacuation of temporal hematoma. ICP better controlled 04-09, remains heavily sedated 04/27: ICP remains better control, 11-12. No acute events overnight. Overnight off Cardene or Levophed. Sedation vacation not approved by neurosurgery yet 04/28: Remains intubated sedated, ICP well control, CT of the head pending. Status post PEG tube placement, plan is for tracheostomy tomorrow. Increased 3 % saline to 30 mL per hour. 04/29: Ventric raised to 10. Will start SBTs. PEG placed, start TFs. Trach in place. Clean, dry. 04/30: Will lighten sedation and proceed with spontaneous breathing trials when OK with Dr. Meléndez. 05/01: Plans noted. Agree. Will mainatin hypertension and allow patient to slowly diurese extra free water. D/C antibiotics as NG. Check C. diff culture. 05/02: Stopped all antibiotics and antifungals. Will reculture completely and check C.diff PCR ahead of possible BUSINESS AREA DIRECTOR shunt placement thursday. Cardene requirements remain high - will start scheduled labetalol and gentle diuretic. Way ahead free water. Will continue to keep well hydrated and hypertensive for SAH vasospasm prevention. 05/03: Urine insignificant colonization, no invasive infection. Others NGTD. Holding abx. Culture for fevers. Diuresing well while maintaining good perfusion pressure. 05/04: Good peripheral perfusion after aggressive diuresis. If creatinine OK will give one dose tobramycin to sterilize to lightly colonized urine. Hypertensive urgency persists, favorable actually for her disease state. 05/05: Will add daily ceftriaxone for urine for 5 days. This is not a significant infection, but in view of intention to place prosthetic device we will cover. Objective - Vital Signs Date Time Temp Pulse Resp B/P Pulse Ox O2 Delivery O2 Flow Rate FiO2 05/05/16 10:00 108 05/05/16 08:59 100 40 05/05/16 08:00 99.5 17 176/88 Intake and Output 05/04/16 05/04/16 05/05/16 08:00 16:00 00:00 Intake Total 357 ml 509 ml 654 ml Output Total 360.0 ml 1925.0 ml 661 ml Balance -3.0 ml -1416.0 ml -7 ml Result Diagram: 05/05/16 0445 05/05/16 0445 Other Results Laboratory Tests Test 04/11/16 04/11/16 04/12/16 13:06 20:44 05:58 Blood Gas Puncture Site ART LINE ART LINE ART LINE Blood Gas Patient Temperature 98.6 98.6 98.6 Blood Gas HCO3 20 mmol/L 21 mmol/L 19 mmol/L (22-26) (22-26) (22-26) Blood Gas Base Excess -4.2 mmol/L -3.1 mmol/L -4.9 mmol/L (-2-2) (-2-2) (-2-2) Blood Gas Oxygen Saturation 98 % (90-100) 98 % (90-100) 97 % (90-100) Arterial Blood pH 7.40 7.42 7.42 (7.380-7.420) (7.380-7.420) (7.380-7.420) Arterial Blood Partial 33 mmHg (38-42) 33 mmHg (38-42) 30 mmHg (38-42) Pressure CO2 Arterial Blood Partial 372 mmHg 450 mmHg 135 mmHg Pressure O2 (61-120) (61-120) (61-120) Arterial Blood Oxygen Content 11.0 Vol % 10.2 Vol % 15.4 Vol % (12.0-20.0) (12.0-20.0) (12.0-20.0) Arterial Blood 1.5 % (0-4) 1.4 % (0-4) 1.3 % (0-4) Carboxyhemoglobin Arterial Blood Methemoglobin 1.2 % (0-2) 1.2 % (0-2) 1.1 % (0-2) Blood Gas Hemoglobin 7.3 G/DL 6.5 G/DL 11.2 G/DL (12.0-16.0) (12.0-16.0) (12.0-16.0) Oxygen Delivery Device VENT VENTILATOR VENTILATOR Blood Gas Ventilator Setting PRVC/20RATE/500/5PEE PRVC/AC PRVC/AC Blood Gas Inspired Oxygen 100 % 100 % 40 % Objective Remarks Infusions Propofol -> off Fentanyl -> off. Versed -> off GEN: Middle-aged female, intubated and sedated, critically ill. Craniotomy dressing in place, dry, clean HEENT: Atraumatic. EVD in place. Pupils 2 mm reactive. Tongue swollen but much less protuberant NECK: Supple. No resistance to motion. Trach in place, clean, dry. LUNGS: Clear, no wheezes or crackles. Few mobile secretions. HEART: Normal S1-S2, tachycardia, loud systolic murmur LSB to apex. ABDOMEN: Soft, nontender, nondistended, no guarding, bowel sounds hyperactive. EXTREMITIES: Warm, well-perfused. 2+ peripheral edema, improved. NEUROLOGIC: Pupils 2 mm, nonreactive, No withdrawal to pain. EVD in place. Opens eyes randomly, not to stimulation or voice. A/P Assessment and Plan Acute subarachnoid hemorrhage, left middle cerebral artery aneurysm Large left frontal hemorrhage Intracranial hypertension Acute respiratory failure on mechanical ventilation RLL pneumonia/E Coli in sputum Sepsis Acute encephalopathy Malignant hypertension Status post coiling of MCA aneurysm Severe LV concentric hypertrophy. Probable HOCM Hypokalemia History of hypertension Lactic acidosis PLAN: NEURO: Acute subarachnoid hemorrhage, left middle cerebral artery aneurysm Intracranial hypertension, uncontrolled Acute encephalopathy s/p left decompressive craniotomy 04/25/16 and evacuation of temporal hematoma s/p endovascular coiling of ruptured cerebral aneurysm Patient has suffered significant dominant hemisphere frontal temporal lobe hemorrhage and consequent cerebral injury which reduces likelihood of functional recovery. Family request aggressive care and Dr. Meléndez performed left decompressive craniotomy 04/25/16 and evacuation of temporal hematoma Sedation/analgesia (Propofol, Versed and Fentanyl) to help control ICP. Mild hypervolemia using CVP. No spontaneous awakening trial until approved by N/S. f/u CT head today 04/28/16 Continue Ventricular drain. Keppra, Nimotop. Treat fever aggressively. Nimbex for ICP control-DCd 04/21/16 23% PRN for ICP >20. Keep Na 150-155. 3% gtt at [address] angiogram done 04/14, 04/16/16, 04/22/16 showed status post endovascular repair of left supraclinoid aneurysm, left M1 segment aneurysm stable no vasospasm. Continue with hypervolemia and hypertension for vasospasm prevention. Target SBP 180 for vasospasm prophylaxis. Will start reducing sedation when OK with Neurosurgery. Palliative care following, remains full code CV: Uncontrolled HTN, now permissive Severe LV concentric hypertrophy. Probable HOCM Target SBP 150-190 for vasospasm prophylaxis. Maintain preload, follow CVP, for hypervolemia. Use Levophed/Cardene PRN Continue Nimotop. (Recommendation for consideration of septal ablation on echo, patient is not a candidate for surgical intervention due to devastating neuro injury) Continue heart rate control and antihypertensives. Keep SBP < 190. RESP: Acute respiratory failure HCAP PC/AC vent mode, adjust vent rate to keep EtCO2 28-33. Nebs prn and scheduled. Vent bundle. No vent weaning due to high ICP, severe encephalopathy Tracheostomy 04/29 : Rebollar required for hourly output. Continue diuresis and Na concentration. May need assistance with 3% saline again. GI: Restart tube feeds a.m. Lactulose to 30 ml q8. Dulcolax suppository PRN, Having BM GI -> PEG tube placement HEME: Serial Hgb. Monitor CBC ID: Sepsis HCAP with E Coli, Haemophilus Sputum cx EColi, haemophilus and blood cultures neg to date. On Zosyn 4.5 GM IV q6 04/15/16. Levaquin was added 04/16/16 to cover for Stenotrophomonas -DCd 04/19, restarted again 04/20/16- 04/26/16 Repeat panculture with blood urine and sputum cultures 04/17/16 negative to date CXR bilateral infiltrates, with leukocytosis and brown sputum Resend cultures due to low grade fever and increased WBC 04/20 -NEG to date ENDO: SSI for euglycemia, avoid hypokalemia, hypo Mag PX: SCDs. Protonix. Cleared by Dr. Morris to use Lovenox for chemical DVT prophylaxis on 04/19/16 Overall impression: Presented with severe SAH and left parenchymal bleed from ruptured aneurysm, with cerebral edema, elevated ICP. Prolonged intractable ICP elevation, then left decompressive hemicraniectomy, for new left frontoparietal hemorrhage, at request of family when option presented. Developed HCAP and severe sepsis. Remains critically ill and prognosis guarded at best, palliative care following. Stopped all antibiotics and antifungals 05/02. We have recultured completely. C.diff PCR negative. Possible BUSINESS [employer] DIRECTOR shunt placement thursday. Will continue to keep well hydrated. Remains critically ill and at risk for vasospasm. So far tolerating diuresis while maintaining SBP > 150. Critical care 34 mins Jeffrey Chand MD May 05, 2016 10:19 Jeffrey Chand MD May 05, 2016 10:19
[2016-05-05] MEDS: METOPROLOL TARTRATE 25 MG TAB PO SCH ×2 (11:02→20:28)
[2016-05-05] MEDS: cefTRIAXone INJ 1,000 MG in SODIUM CHLORIDE 0.9% INJ 100 ML IV SCH (11:03)
[2016-05-05 11:41] LABS: VOLUME TUBE # 2 2.5 ML; WBC TUBE #1 83 /MM3 (0-10)
[2016-05-05 11:42] LABS: CSF LYMPHOCYTES 64 %; CSF MONOCYTES 8 %; CSF NEUTROPHILS 20 %
[2016-05-05 11:46] LABS: GROSS BLOOD TUBE #1 TRACE (0); GROSS BLOOD TUBE #2 TRACE (0); GROSS BLOOD TUBE #3 TRACE (0); SUPERNATE COLOR TUBE #1 CLEAR (CLEAR); SUPERNATE COLOR TUBE #2 CLEAR (CLEAR); SUPERNATE COLOR TUBE #3 CLEAR (CLEAR)
--- NOTE | 2016-05-05 11:49 | HHI.HCPN ---
Reason for visit a. To assist with evaluation and management of symptoms including: encephalopathy b. To assist medical decision maker(s) with: better understanding of current medical conditions; weighing benefits/burdens of medical treatment options; making medical treatment decisions. (Ashley Wharton) Subjective/Interval History Patient seen today to follow-up on goals, comfort. S/p craniotomy 04/26, s/p tracheostomy, s/p PEG placement. Has remained on mech vent in ICU. ICP improved post crani. Tolerating TF via PEG. Neuro has been adjusting ventric for weaning, ventricles with increase size in follow-up CT, planned for CYBER SYSTEMS ENGINEER shunt placement this week. Has Cont to require cardene for hypertension, as well as 3% saline. 05/05 Rocephin added for urine culture results [scherichia coli, ? Colonized] as patient planned for CYBER SYSTEMS ENGINEER shunt placement this week. Blood cultures from 05/02 with no growth to date. CSF culture 05/05 pending. Tmax 100.3. Patient with very slight neurological improvement now with eye opening, some extension/response to pain stimuli. Not reported to have purposeful movement . Cardene is off, Levophed being weaned off this morning. Patient seen in room with daughter, brother, [id number] at bedside. Eyes are open spontaneously, she is not tracking examiner. disconjugate gaze. Pupils with sluggish reaction to light, left pupil greater in size than right. To pain stimuli slight extension bilateral upper extremities. I am unable to elicit response to lower extremities. Still with significant tongue edema, moistened gauze in place. Extensive discussion with family at bedside. Goals remain aggressive. History brought forward from initial consult by Jillian AKBAR on 04/22/16: This 46 year old female presented to the ED on 04/11/16, apparently found on the ground unresponsive by family members, EMS was activated. EMS found her with a GCS of 3 and blood pressure to 90 systolic. She required respiratory ventilation support. She was unresponsive and unable to provide additional history. * She was intubated on arrival to the ED. Cardene was initiated for hypotension. CT brain obtained for suspected hemorrhage, CT brain indicates large left hemispheric intraparenchymal hemorrhage with subarachnoid blood. Suspected MCA aneurysm rupture, CTA head and neck pending. Neurosurgery consulted. Admitted to the ICU ,emergent ventriculostomy placement by neuro. * Neuro exam notes absent deep tendon reflexes, no withdrawal to stimuli weak cough reflex pupils 2 mm and nonreactive. Prognosis guarded given significant areas of hemorrhage--cerebral angiogram indicates to aneurysm. Planned for interventional radiology for attempted coiling. Initiated on Keppra, pneumatized. * 04/11 to IR for attempting coiling of 2 aneurysms. Large and most complex involves left posterior cerebral origin. Successful coil embolization of the largest aneurysm. Attempted coiling embolization of other M1 aneurysm on left not successful unable to treat at aneurysm via endovascular methods. * 04/13 ICP increasing, > 20, cerebral edema, requiring ventilator adjustments, increased sedation and analgesia--received 23% saline bolus //neurosurgery discussed with patient's family at bedside * 04/15 continues to require heavy sedation for ICP control, somewhat improved on sedation. Repeat CT angiogram indicated status post endovascular repair left aneurysm left M1 segment stable no vasospasm. * 04/16 hypoxemic FiO2 increased to 70%, CXR= lower lobe infiltrate, sputum+ or negative rods. Clinical exam: Pulse 2 mm nonreactive. No withdrawal 4 extremities. * 04/17 ICP elevated, hypothermic? Related to sepsis, pancultures pending, on Vanco --- later initiated on paralytics * 04/21 still critically ill on mechanical vent. Intermittent ICP elevations. Requiring 23% saline boluses. Paralytic Nimbex DC'd. Repeat CT angiogram planned for 04/22 * 04/22EEG no seizure activity noted. Slightly asynchrony no focal abnormality. CTA head 04/22 no vasospasm some perfusion. Palliative care consulted by neuro to assist family with clarification of goals of treatment. Hemoglobin low 6.8, ordered for RBC transfusion-Bumex 1 following. WBC 14.3. Patient seen in room no visitors present. Nursing indicates no family in as of yet today. She is sedated on mechanical vent, critically ill-appearing. Nonresponsive to my exam, no gag reflex when nursing provide suction during my exam. Currently on Cardene drip, Versed drip at 10 mg an hour, Diprivan drip at 15 mics/kg/minute, fentanyl drip at 250 mcgs/ hour, 3% saline at 40 mL/ hour and receiving second unit rbc's today. Primary nurse informs neurosurgery Dr. Ruiz by shortly before my exam and they indicated no plans for surgical intervention at this time. Following exam call to daughter, provided brief general medical update, assessment overview, arranged to meet with her tomorrow Thursday04/23/16 around 9:45 AM. Family/friend interactions Extensive discussion with daughter, [id number], brother at bedside. Discussion included: Review of treatments patient has undergone including procedures, current /ongoing treatments in the ICU. Review of planned procedure for CYBER SYSTEMS ENGINEER shunt. Review patient still remains in critical condition, and high risk for multiple complications/setbacks because of hemorrhage, and ongoing ICU course. Family has questions regarding patient neurological status as they have seen improvements, further explore that she has shown very limited and slight neurological improvements, and that still not clear she will regain independent function, review likely trajectory following acute hospitalization, the patient expected to remain dependent for care. Review CPR/resuscitation family elects patient should remain full code. Goals remain aggressive. Patient STAN shares that her mother underwent CPR 10 times following a hemorrhagic stroke just like the patient and that her mother is "doing fine now ". They believe they should provide whatever treatments are available, and "leave the rest in God's hands ". Pt to remain FULL CODE. . (Ashley Wharton) Advance Directives Living Will: Never completed Health Care Surrogate: Never completed Durable Power of Finishing Technician: Never completed (Ashley Wharton) Objective Vital Signs Date Time Temp Pulse Resp B/P Pulse Ox O2 Delivery O2 Flow Rate FiO2 05/05/16 11:09 100 40 05/05/16 10:00 108 05/05/16 08:59 100 40 05/05/16 08:00 99.5 114 17 176/88 100 05/05/16 08:00 40 05/05/16 08:00 110 05/05/16 06:00 102 05/05/16 04:00 40 05/05/16 04:00 96 05/05/16 04:00 99.3 96 14 164/78 100 05/05/16 03:50 100 40 05/05/16 02:00 102 05/05/16 01:01 100 40 05/05/16 00:00 40 05/05/16 00:00 96 05/05/16 00:00 99.9 96 14 187/97 100 05/04/16 22:33 100 40 05/04/16 22:00 90 05/04/16 20:55 100 40 05/04/16 20:00 100.3 102 15 164/82 100 05/04/16 20:00 109 05/04/16 20:00 40 05/04/16 17:05 100 40 05/04/16 16:00 100 05/04/16 16:00 100.3 100 14 159/84 100 05/04/16 12:27 100 40 05/04/16 12:00 99.0 109 16 179/83 100 05/04/16 12:00 109 Intake & Output 05/05/16 05/05/16 07:00 19:00 Intake Total 1317 ml Output Total 1595 ml Balance -278 ml IV Total 980 ml Tube Feeding 277 ml Other 60 ml Output Urine Total 1250 ml Stool Total 300 ml Drainage Total 45 ml Physical Exam CONSTITUTIONAL/GENERAL: This is an adequately nourished patient, in no apparent distress, critically ill on mechanical vent. TUBES/LINES/DRAINS: Peripheral IV upper extremity, arterial line right radial, Rebollar catheter, rectal drain, ventriculostomy, yaneth intact to top of head, trach tube, PEG tube EYES: Pupils: Left 4 mm, right 3 mm, sluggish reaction to light. Disconjugate gaze. No scleral icterus. No injection or drainage. Fundi not examined. CARDIOVASCULAR: Regular rate and rhythm,+murmur. Peripheral pulses symmetric.+ Generalized edema. RESPIRATORY/CHEST: Symmetric, unlabored respirations via trach to mechanical vent, no spontaneous respirations over vent rate. Coarse air movement throughout. GASTROINTESTINAL: Abdomen soft, unable to assess tenderness, nondistended. Bowel sounds normoactive. Tube feeding infusing via PEG. + Liquid stool present in rectal drain. GENITOURINARY: Without palpable bladder distension. Rebollar catheter in place clear yellow urine. NEUROLOGICAL: Sedated on mechanical vent. Eyes open spontaneously. Disconjugate gaze. Pupils with sluggish reaction to light. Slight extension upper extremities to pain stimuli. No response to pain stimuli bilateral lower extremities. PSYCHIATRIC: unable to assess due to clinical condition. No apparent anxiety or tachypnea. (Ashley Wharton) Diagnostic Tests Laboratory Laboratory Tests Test 05/02/16 05/02/16 05/02/16 05/03/16 17:00 17:30 18:11 04:23 Stool C. difficile Toxin (PCR) NEGATIVE (NEGATIVE) Stl C. difficile Toxin PRESUMPTIVE Epiderm 027 NEGATIVE (NEGATIVE) Sodium Level 137 MEQ/L 138 MEQ/L (136-145) (136-145) Potassium Level 3.3 MEQ/L 3.1 MEQ/L (3.5-5.1) (3.5-5.1) Phosphorus Level 2.8 MG/DL 3.1 MG/DL (2.5-4.9) (2.5-4.9) Magnesium Level 1.7 MG/DL 1.8 MG/DL (1.5-2.5) (1.5-2.5) Serum Osmolality 283 MOSM/KG 285 MOSM/KG (275-295) (275-295) White Blood Count 16.4 TH/MM3 (4.0-11.0) Red Blood Count 3.21 MIL/MM3 (4.00-5.30) Hemoglobin 8.1 GM/DL (11.6-15.3) Hematocrit 24.5 % (35.0-46.0) Mean Corpuscular Volume 76.4 FL (80.0-100.0) Mean Corpuscular Hemoglobin 25.4 PG (27.0-34.0) Mean Corpuscular Hemoglobin 33.2 % Concent (32.0-36.0) Red Cell Distribution Width 26.6 % (11.6-17.2) Platelet Count 393 TH/MM3 (150-450) Mean Platelet Volume 7.8 FL (7.0-11.0) Neutrophils (%) (Auto) 81.6 % (16.0-70.0) Lymphocytes (%) (Auto) 8.7 % (9.0-44.0) Monocytes (%) (Auto) 7.0 % (0.0-8.0) Eosinophils (%) (Auto) 2.5 % (0.0-4.0) Basophils (%) (Auto) 0.2 % (0.0-2.0) Neutrophils # (Auto) 13.3 TH/MM3 (1.8-7.7) Lymphocytes # (Auto) 1.4 TH/MM3 (1.0-4.8) Monocytes # (Auto) 1.2 TH/MM3 (0-0.9) Eosinophils # (Auto) 0.4 TH/MM3 (0-0.4) Basophils # (Auto) 0.0 TH/MM3 (0-0.2) CBC Comment AUTO DIFF Differential Total Cells 100 Counted Neutrophils % (Manual) 87 % (16-70) Lymphocytes % 6 % (9-44) Monocytes % 3 % (0-8) Eosinophils % 1 % (0-4) Neutrophils # (Manual) 14.8 TH/MM3 (1.8-7.7) Metamyelocytes 2 % (0-1) Myelocytes 1 % (0-0) Differential Comment FINAL DIFF MANUAL Platelet Estimate NORMAL (NORMAL) Platelet Morphology Comment NORMAL (NORMAL) Ovalocytes 1+ (NORMAL) Test 05/03/16 05/03/16 05/03/16 05/04/16 13:30 15:45 23:56 05:30 Serum Osmolality 288 MOSM/KG 287 MOSM/KG 310 MOSM/KG 287 MOSM/KG (275-295) (275-295) (275-295) (275-295) Sodium Level 138 MEQ/L 138 MEQ/L (136-145) (136-145) Potassium Level 3.9 MEQ/L 3.5 MEQ/L (3.5-5.1) (3.5-5.1) Phosphorus Level 2.9 MG/DL 3.1 MG/DL (2.5-4.9) (2.5-4.9) Magnesium Level 1.9 MG/DL 2.0 MG/DL (1.5-2.5) (1.5-2.5) White Blood Count 13.8 TH/MM3 (4.0-11.0) Red Blood Count 2.97 MIL/MM3 (4.00-5.30) Hemoglobin 7.4 GM/DL (11.6-15.3) Hematocrit 23.0 % (35.0-46.0) Mean Corpuscular Volume 77.5 FL (80.0-100.0) Mean Corpuscular Hemoglobin 25.0 PG (27.0-34.0) Mean Corpuscular Hemoglobin 32.3 % Concent (32.0-36.0) Red Cell Distribution Width 26.1 % (11.6-17.2) Platelet Count 416 TH/MM3 (150-450) Mean Platelet Volume 7.4 FL (7.0-11.0) Neutrophils (%) (Auto) 72.4 % (16.0-70.0) Lymphocytes (%) (Auto) 9.7 % (9.0-44.0) Monocytes (%) (Auto) 12.4 % (0.0-8.0) Eosinophils (%) (Auto) 4.8 % (0.0-4.0) Basophils (%) (Auto) 0.7 % (0.0-2.0) Neutrophils # (Auto) 10.0 TH/MM3 (1.8-7.7) Lymphocytes # (Auto) 1.3 TH/MM3 (1.0-4.8) Monocytes # (Auto) 1.7 TH/MM3 (0-0.9) Eosinophils # (Auto) 0.7 TH/MM3 (0-0.4) Basophils # (Auto) 0.1 TH/MM3 (0-0.2) CBC Comment AUTO DIFF Differential Total Cells 100 Counted Neutrophils % (Manual) 81 % (16-70) Band Neutrophils % 2 % (0-6) Lymphocytes % 7 % (9-44) Monocytes % 3 % (0-8) Eosinophils % 4 % (0-4) Neutrophils # (Manual) 11.9 TH/MM3 (1.8-7.7) Metamyelocytes 1 % (0-1) Myelocytes 2 % (0-0) Differential Comment FINAL DIFF MANUAL Platelet Estimate NORMAL (NORMAL) Platelet Morphology Comment NORMAL (NORMAL) Test 05/04/16 05/04/16 05/04/16 05/05/16 09:37 13:24 15:48 00:50 Prothrombin Time 10.7 SEC (9.8-11.4) Prothromb Time International 1.1 RATIO Ratio Activated Partial 30.4 SEC Thromboplast Time (22.6-28.8) Sodium Level 139 MEQ/L 140 MEQ/L (136-145) (136-145) Potassium Level 3.9 MEQ/L 3.6 MEQ/L (3.5-5.1) (3.5-5.1) Chloride Level 100 MEQ/L (98-107) Carbon Dioxide Level 30.3 MEQ/L (21.0-32.0) Anion Gap 9 MEQ/L (5-15) Blood Urea Nitrogen 12 MG/DL (7-18) Creatinine 0.55 MG/DL (0.50-1.00) Estimat Glomerular Filtration 143 ML/MIN Rate (>89) Random Glucose 126 MG/DL (74-106) Calcium Level 9.1 MG/DL (8.5-10.1) Total Bilirubin 0.7 MG/DL (0.2-1.0) Aspartate Amino Transf 75 U/L (15-37) (AST/SGOT) Alanine Aminotransferase 39 U/L (10-53) (ALT/SGPT) Alkaline Phosphatase 111 U/L (45-117) Total Protein 6.6 GM/DL (6.4-8.2) Albumin 2.4 GM/DL (3.4-5.0) Serum Osmolality 290 MOSM/KG 289 MOSM/KG 291 MOSM/KG (275-295) (275-295) (275-295) Phosphorus Level 3.5 MG/DL (2.5-4.9) Magnesium Level 1.9 MG/DL (1.5-2.5) Test 05/05/16 05/05/16 04:45 09:30 White Blood Count 13.8 TH/MM3 (4.0-11.0) Red Blood Count 2.99 MIL/MM3 (4.00-5.30) Hemoglobin 7.5 GM/DL (11.6-15.3) Hematocrit 23.2 % (35.0-46.0) Mean Corpuscular Volume 77.7 FL (80.0-100.0) Mean Corpuscular Hemoglobin 25.2 PG (27.0-34.0) Mean Corpuscular Hemoglobin 32.5 % Concent (32.0-36.0) Red Cell Distribution Width 26.0 % (11.6-17.2) Platelet Count 432 TH/MM3 (150-450) Mean Platelet Volume 7.4 FL (7.0-11.0) Neutrophils (%) (Auto) 73.2 % (16.0-70.0) Lymphocytes (%) (Auto) 9.7 % (9.0-44.0) Monocytes (%) (Auto) 11.8 % (0.0-8.0) Eosinophils (%) (Auto) 4.2 % (0.0-4.0) Basophils (%) (Auto) 1.1 % (0.0-2.0) Neutrophils # (Auto) 10.1 TH/MM3 (1.8-7.7) Lymphocytes # (Auto) 1.3 TH/MM3 (1.0-4.8) Monocytes # (Auto) 1.6 TH/MM3 (0-0.9) Eosinophils # (Auto) 0.6 TH/MM3 (0-0.4) Basophils # (Auto) 0.1 TH/MM3 (0-0.2) CBC Comment AUTO DIFF Differential Comment AUTO DIFF CONFIRMED Sodium Level 141 MEQ/L (136-145) Potassium Level 3.4 MEQ/L (3.5-5.1) Creatinine 0.55 MG/DL (0.50-1.00) Estimat Glomerular Filtration 143 ML/MIN Rate (>89) Serum Osmolality 294 MOSM/KG (275-295) Phosphorus Level 3.2 MG/DL (2.5-4.9) Magnesium Level 1.9 MG/DL (1.5-2.5) CSF Glucose 59 MG/DL (40-80) CSF Total Protein 28.2 MG/DL (15.0-45.0) (Ashley Wharton) Result Diagram: 05/05/1644405/05/16444 Microbiology Microbiology Date/Time Procedure Status Source Growth 05/02/16 14:08 Aerobic Blood Culture - Preliminary Resulted Blood Peripheral NO GROWTH IN 3 DAYS 05/02/16 14:08 Anaerobic Blood Culture - Preliminary Resulted Blood Peripheral NO GROWTH IN 3 DAYS 05/02/16 14:13 Aerobic Blood Culture - Preliminary Resulted Blood Peripheral NO GROWTH IN 3 DAYS 05/02/16 14:13 Anaerobic Blood Culture - Preliminary Resulted Blood Peripheral NO GROWTH IN 3 DAYS 05/05/16 09:30 Gram Stain - Final Resulted Cerebral Spinal Fluid Lumbar Puncture 05/05/16 09:30 CSF Culture Resulted Cerebral Spinal Fluid Lumbar Puncture Pending Imaging Last Impressions Head CTA 05/02/16 0600 Signed Impressions: Service Date/Time: Monday, May 02, 2016 04:32 - CONCLUSION: Satisfactory appearance post aneurysm coiling Fei Sndyer MD Head CT 04/30/16 0000 Signed Impressions: Service Date/Time: May 04:20 - CONCLUSION: There again is significant hemorrhage and edema remaining in the left temporal region. There has been interval increase in size of the ventricular system since the previous study. Sunny Berger MD Chest X-Ray 04/30/16 0000 Signed Impressions: Service Date/Time: Saturday, April 30, 2016 19:33 - CONCLUSION: 1. Cardiac enlargement. Bilateral airspace disease. Pleural effusion, left greater than right. Findings similar to April 29 considering differences in technique. Tracheostomy unchanged. Quinn Bateman MD Abdomen/Pelvis CT 04/24/16 1416 Signed Impressions: Service Date/Time: March 14:39 - CONCLUSION: Mild small bowel ileus with scattered air-fluid levels. Bibasilar lung consolidation with associated small effusions. Significant soft tissue fluid accumulation with edematous changes throughout the abdominal wall. Nasogastric tube in good position. Saqib Garcia MD Neck CTA 04/11/16 1151 Signed Impressions: Service Date/Time: Monday, April 11, 2016 12:01 - CONCLUSION: Negative for hemodynamically significant carotid stenosis. Ricardo Castellanos MD FACR Cerebral Arteriogram 04/11/16 0000 Signed Impressions: Service Date/Time: Monday, April 11, 2016 14:18 - CONCLUSION: 1. 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 This is the aneurysm felt responsible for the intracranial hemorrhage. 2. Small 4 mm left M1 segment aneurysm. Attempts at embolizing this aneurysm were unsuccessful due to the broad based nature of the aneurysm. Endovascular repair of this aneurysm could not be performed. Kennedy Thibodeaux Jr., MD Procedures 04/26craniotomy 04/28 PEG tube 04/29 tracheostomy (Ashley Wharton) Assessment and Plan Disease Oriented Problem List: (1) Acute spontaneous subarachnoid intracranial hemorrhage (2) Cerebral aneurysm rupture (3) Hypertension Symptom Scale: (1) Dyspnea Comment: Intubated for airway protection (2) Encephalopathy Comment: MCA hemorrhage, status post aneurysm rupture, status post IR coiling, status post decompressive craniotomy (3) Malnutrition Comment: +OGT, will require longer term feeding tube to meet nutritional requirements--plan for PEG tube Pertinent Non-Medical Issues Psychosocial:Previously lived in the [facility]. Moved back to [place] around 2009. supported by adult daughter, and multiple siblings. Spiritual:Episcopal, well supported by pastors known to them. Legal:Patient is not able to participate in decision-making due to clinical condition, not clear that she will regain this ability. She is not . Per [place] statutes legal decision making would fall to her 1 adult daughter, who is supported by pt multiple siblings. Ethical issues impacting care: Important Contacts Solo Hoskins (daughter) [phone] Donna [id number] Brother Fei Pride [phone] Brother Kenn Pride Brother Jared Pride Brother Jamil [place] . 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 Status post coiling of one aneurysm. Continues to have elevated ICPs and poor neuro exam. S/P craniotomy due to labile ICP and worsening edema. Will likely require prolonged hospital course and will be high risk for further complications/setbacks while supportive care continues. S /P tracheostomy and PEG tube placement to allow for continued ongoing aggressive treatment. Not expected to regain independent function, will likely have significant deficits if she can survive acute course and may remain dependent for care. Code Status: Full Code Plan * Goals: Extensive medical update provided today to daughter, additional family members ,GOALS REMAIN AGGRESSIVE. They have a family member who is reported to have "coded 10 times following the same type of hemorrhage" and is now "doing fine"-- this will likely inform their decision making. * Full code * Legal decision maker- Per [place] statutes adult daughter Solo Hoskins= legal decision maker. She also supported by pt's multiple siblings. * Symptoms: --Encephalopathy-s/p MCA hemorrhage, status post aneurysm rupture, status post IR coiling//ICPs remaining elevated --->status post decompressive craniotomy left frontal temporal parietal 04/26--> ICPs stable, still with poor neurological exam [responding some to noxious stimuli, not purposeful], plan for CYBER SYSTEMS ENGINEER shunt this week. --Dyspnea- intubated for airway protection, status post tracheostomy, continues to require ventilator support no dyspnea or distress currently --malnutrition -status post PEG placement; tolerating tube feeding, having bowel movements * Palliative care will continue to follow during hospital course as condition evolves, to assist patient/decision-maker with understanding of medical conditions, weighing benefits/burdens of treatment options, for clarification of goals of treatment. Additionally will assist with any symptoms of palliative concern (Ashley Wharton) Time Spent Total Floor Time (mins): 30 Face to Face Time (mins): 20 >50% Counseling/Coord of Care: Yes (discussed primary nurse) (Ashley Wharton) Attestation To help prompt me to consider important information that might be impacting today's encounter and assessment, information from prior notes written by myself or my colleagues may have been "brought forward" into today's note. My signature on this note, however, is an attestation that I personally performed the exam, history, and/or decision-making noted today, and, unless otherwise indicated, the interactions with patient, family, and staff as well as the review of records all occurred today. I also attest that the listed assessment and stated plan reflect my best clinical judgment today based on the combination of historical information, prior notes, and today's exam/ interactions. When time spent is documented, it refers only to time spent today by the signer, or if indicated, combined time spent today by collaborating physician/nurse practitioner. (Ashley Wharton) Collaborating MD Comments Chart reviewed. Case discussed with palliative care CARD HANGER. Above note reviewed and I concur. . (Xavier May MD) Ashley Wharton May 05, 2016 11:49 Xavier May MD May 25, 2016 13:19
[2016-05-05] MEDS: ACETAMINOPHEN 325MG/HYDROcodone 7.5MG/15ML UDC PO PRN (12:50)
[2016-05-05] MEDS: ACETAMINOPHEN 650 MG/20.3 ML UDC PO PRN (16:36)
[2016-05-06] VITALS (19 sets, daily range): BP systolic 121–178; BP diastolic 60–80; PULSE 96–117; RESP 14; TEMP 99–101.1; O2SAT 96–100
[2016-05-06] MEDS: METOCLOPRAMIDE HCL SYRUP 10 MG/10 ML UDC PO SCH ×4 (00:39→23:47)
[2016-05-06] MEDS: CHLORHEXIDINE GLUCONATE 2 % 1 PACK (2 CLOTHS) TOP SCH (00:40)
--- NOTE | 2016-05-06 04:39 | RADRPT ---
EXAM DATE/TIME: 05/06/2016 04:23 [facility] COMPARISON: CT BRAIN W/O CONTRAST, May 01, 2016, 4:20. INDICATIONS : Follow up subarachniod hemorrhage. RADIATION DOSE: 52.61 CTDIvol (mGy) MEDICAL HISTORY : Hypertension. SURGICAL HISTORY : Tubal ligation. ENCOUNTER: Subsequent ACUITY: 3 weeks PAIN SCALE: Non-responsive LOCATION: cranial TECHNIQUE: Multiple contiguous axial images were obtained of the head. Using automated exposure control and adj ustment of the mA and/or kV according to patient size, radiation dose was kept as low as reasonably a chievable to obtain optimal diagnostic quality images. FINDINGS: Evolving hemorrhagic and ischemic infarction of the left frontal, temporal and parietal lobes again n oted. There is a craniotomy defect with herniation of brain again noted. No new or acute blood produc ts are demonstrated. The previously seen midline shift has resolved. Increased ventriculomegaly, currently mild to moderate. There is a ventriculostomy catheter ente ring the right lateral ventricle again noted. No mass demonstrated. There is mucoperiosteal thickening of the visualized sinuses. The mastoid air cells are also opa cified. CONCLUSION: 1. 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 Midline shift has resolved but there is persistent herniation of brain at the craniotomy defect. 2. No new or acute blood demonstrated. 3. Mild to moderate ventriculomegaly, increased. 4. Sinusitis and apparent mastoiditis. Fei Hughes MD on May 06, 2016 at 4:33 Board Certified Radiologist. This report was verified electronically.
[2016-05-06 05:56] LABS: AUTOMATED NEUTROPHIL # 9.6 TH/MM3 (1.8-7.7); BASOPHIL # 0.1 TH/MM3 (0-0.2); BASOPHIL % 0.6 % (0.0-2.0); EOSINOPHIL # 0.5 TH/MM3 (0-0.4); EOSINOPHIL % 3.4 % (0.0-4.0); HEMATOCRIT 22.3 % (35.0-46.0); LYMPH % 13.2 % (9.0-44.0); LYMPHOCYTE # 1.8 TH/MM3 (1.0-4.8); MEAN CELL VOLUME 77.3 FL (80.0-100.0); MEAN CORPUSCULAR HGB CONC 32.4 % (32.0-36.0); MONO % 13.1 % (0.0-8.0); NEUT % 69.7 % (16.0-70.0); PLATELET COUNT 410 TH/MM3 (150-450); RED BLOOD COUNT 2.89 MIL/MM3 (4.00-5.30); RED CELL DISTRIBUTION WIDTH 25.7 % (11.6-17.2); WHITE BLOOD COUNT 13.8 TH/MM3 (4.0-11.0)
[2016-05-06] MEDS: LABETALOL HCL 200 MG TAB PO SCH ×3 (06:00→23:47)
[2016-05-06 06:07] LABS: HEMO FLAGS AUTO DIFF
[2016-05-06 06:22] LABS: POTASSIUM 3.6 MEQ/L (3.5-5.1)
[2016-05-06 07:07] LABS: SCAN/DIFF AUTO DIFF CONFIRMED; SPHEROCYTES OCC (NORMAL)
[2016-05-06] MEDS: SODIUM CHLORIDE 0.9% FLUSH 5 ML FLUSH IVF SCH ×2 (07:45→22:10)
[2016-05-06] MEDS: METOPROLOL TARTRATE 25 MG TAB PO SCH ×2 (09:25→22:10)
[2016-05-06] MEDS: PANTOPRAZOLE SODIUM 40 MG VIAL IV SCH (09:26)
[2016-05-06] MEDS: FUROSEMIDE 20 MG/2 ML VIAL IV PUSH SCH (09:26)
[2016-05-06] MEDS: levETIRAcetam 500 MG/5 ML UDC TUBE SCH ×2 (09:26→22:09)
[2016-05-06] MEDS: cefTRIAXone INJ 1,000 MG in SODIUM CHLORIDE 0.9% INJ 100 ML IV SCH (09:26)
--- NOTE | 2016-05-06 09:34 | HHI.NSPN ---
(Genna Madrid) History Chief Complaint: status post coil for aneurysm (Genna Madrid) Interval History 04/12/16: Patient had an aneurysm coiled yesterday, intubated and sedated, ICP stable overnight 04/13/16: Increased ICP overnight, improved after a 23% saline bolus 04/14/16: ICP stable overnight 04/15/16: ICP stable, CTA stable no vasospasm 04/16/16: ICP slight increase overnight now stabilized, intubated and sedated 04/17/16: ICP increased yesterday afternoon, repeat CTA and CT stable, no vasospasm, no new hemorrhage, hypothermia overnight 04/21/16: increasing ICP over the weekend, getting 23% every 6 hours PRN. 04/22/16: ICP responding over night to 23% saline, CT and CTA planned this am. Nimbex off since yesterday. 04/23/16: ICP stable overnight, SBP increasing today RN adjusting pressors, HGB improved after 2 units of PRBC, no signs of active bleeding 04/24/16: ICP increased overnight with stimulation but not sustained, low HGB again today receiving PRBC this am 04/25/16: ICP max 38 overnight, currently 10, no family at bedside. 04/26/16: She has ventriculostomy drain in place. She underwent left decompressive craniectomy yesterday 04/[address] Meléndez due to elevated ICPs. Today, ICPs improved, currently 4. 04/27/16: intermittent spikes in ICPs overnight in low 20's controlled with hyperosmotic bolus. Currently 9. well sedated. 04/28/16: ICP stable between 9-14 per RN. EVD draining blood tinged CSF, flap firm non-pulsatile 04/29/16: ICP stable overnight, PEG yesterday, Trach today. 04/30/16: EVD clamped 05/01/16: EVD clamped, ICP max 17, currently 14. 05/02/16: EVD draining, ICP 9, no sedation 05/03/16: Pt with eyes open. Not following commands. Pupils 4mm bilaterally reactive bilaterally. Ventriculostomy in place at [id number]. ICP 8. 9: Pt with eyes open. Not following commands. Pupils 4mm bilaterally reactive bilaterally. Ventriculostomy in place at [id number]. ICP 8. 9: Day 24 after PCOM aneurysm bleed and coiling, Pupils reactives, eyes now open and she is more alert. EVD was clamped this am, remains straw coloured. 05/06/16: eyes open, very mild flexion to deep pain in the upper extremities. ( Genna Madrid) Exam Results Vital Signs Date Time Temp Pulse Resp B/P Pulse Ox O2 Delivery O2 Flow Rate FiO2 05/06/16 07:57 100 40 05/06/16 06:00 108 05/06/16 04:00 99.4 14 128/60 Intake and Output 05/05/16 05/05/16 05/06/16 08:00 16:00 00:00 Intake Total 663 ml 592 ml 485 ml Output Total 934 ml 1450 ml 200 ml Balance -271 ml -858 ml 285 ml (Genna Madrid) Physical Examination Ventilated via tracheostomy. No sedation. Eyes open, mild eye fluttering. Does not track. Pupils 4 mm slight bilaterally. Mild extensor posturing in bilateral upper extremities to deep pain. Lower extremity flaccid. Incision clean and dry without signs of infection. SCDs and heel protect boots in place. EVD is clamped. ICP 0-2. 3/6 systolic murmur. Lungs clear to auscultation bilaterally. (Genna Madrid) Lab, Micro, Other Results Microbiology Date/Time Procedure Status Source Growth 05/05/16 09:30 Gram Stain - Final Resulted Cerebral Spinal Fluid Lumbar Puncture 05/05/16 09:30 CSF Culture - Preliminary Resulted Cerebral Spinal Fluid Lumbar Puncture NO GROWTH IN 24 HOURS. Last Impressions Head CT 05/06/16 0600 Signed Impressions: Service Date/Time: Friday, May 06, 2016 04:23 - CONCLUSION: 1. 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 Midline shift has resolved but there is persistent herniation of brain at the craniotomy defect. 2. No new or acute blood demonstrated. 3. Mild to moderate ventriculomegaly, increased. 4. Sinusitis and apparent mastoiditis. Fei Hughes MD Head CTA 05/02/16 0600 Signed Impressions: Service Date/Time: Monday, May 02, 2016 04:32 - CONCLUSION: Satisfactory appearance post aneurysm coiling Fei Snyder MD Chest X-Ray 04/30/16 0000 Signed Impressions: Service Date/Time: Saturday, April 30, 2016 19:33 - CONCLUSION: 1. Cardiac enlargement. Bilateral airspace disease. Pleural effusion, left greater than right. Findings similar to April 29 considering differences in technique. Tracheostomy unchanged. Quinn Bateman MD Abdomen/Pelvis CT 04/24/16 1416 Signed Impressions: Service Date/Time: March 14:39 - CONCLUSION: Mild small bowel ileus with scattered air-fluid levels. Bibasilar lung consolidation with associated small effusions. Significant soft tissue fluid accumulation with edematous changes throughout the abdominal wall. Nasogastric tube in good position. Saqib Garcia MD Neck CTA 04/11/16 1151 Signed Impressions: Service Date/Time: Monday, April 11, 2016 12:01 - CONCLUSION: Negative for hemodynamically significant carotid stenosis. Ricardo Castellanos MD FACR Cerebral Arteriogram 04/11/16 0000 Signed Impressions: Service Date/Time: Monday, April 11, 2016 14:18 - CONCLUSION: 1. 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 This is the aneurysm felt responsible for the intracranial hemorrhage. 2. Small 4 mm left M1 segment aneurysm. Attempts at embolizing this aneurysm were unsuccessful due to the broad based nature of the aneurysm. Endovascular repair of this aneurysm could not be performed. Kennedy Thibodeaux Jr., MD Laboratory Tests Test 05/06/16 05:40 White Blood Count 13.8 TH/MM3 Red Blood Count 2.89 MIL/MM3 Hemoglobin 7.2 GM/DL Hematocrit 22.3 % Mean Corpuscular Volume 77.3 FL Mean Corpuscular Hemoglobin 25.0 PG Mean Corpuscular Hemoglobin 32.4 % Concent Red Cell Distribution Width 25.7 % Platelet Count 410 TH/MM3 Mean Platelet Volume 7.3 FL Neutrophils (%) (Auto) 69.7 % Lymphocytes (%) (Auto) 13.2 % Monocytes (%) (Auto) 13.1 % Eosinophils (%) (Auto) 3.4 % Basophils (%) (Auto) 0.6 % Neutrophils # (Auto) 9.6 TH/MM3 Lymphocytes # (Auto) 1.8 TH/MM3 Monocytes # (Auto) 1.8 TH/MM3 Eosinophils # (Auto) 0.5 TH/MM3 Basophils # (Auto) 0.1 TH/MM3 CBC Comment AUTO DIFF Differential Comment AUTO DIFF CONFIRMED Spherocytes OCC Sodium Level 141 MEQ/L Potassium Level 3.6 MEQ/L Chloride Level 106 MEQ/L Carbon Dioxide Level 28.0 MEQ/L Anion Gap 7 MEQ/L Blood Urea Nitrogen 14 MG/DL Creatinine 0.59 MG/DL Estimat Glomerular Filtration 132 ML/MIN Rate Random Glucose 111 MG/DL Calcium Level 8.8 MG/DL (Genna Madrid) Medical Decision Making Impression and Plan Impression: 1. Neurologic exam stable following endovascular coiling of ruptured cerebral aneurysm with subsequent left decompressive craniotomy 04/14/16 CT angiogram stable: Status post endovascular repair of left supraclinoid aneurysm. Left M1 segment aneurysm stable 04/16/[address] and CTA stable. No vasospasm, no new hemorrhage. 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 Midline shift has resolved but there is persistent herniation of brain at the craniotomy defect. No new or acute blood demonstrated. Mild to moderate ventriculomegaly, increased. Plan: Re-open EVD at [id number]. DUE DILIGENCE COORDINATOR shunt scheduled for 0705/07 D/W nurse she will obtain consents from the daughter. Hold Lovenox NPO at midnight for procedure tomm. Final CSF culture and gram stain from 05/05 pending, negative at 24 hours. Maintain systolic blood pressure 110-160 range Continue to monitor sodium level, keep 145-155. 23% saline for ICP over 25. Hold for Na+ greater than 160. Housekeeper Child Care following for medical management. Keppra for seizure prophylaxis. Protonix for ulcer prophylaxis Tube feeds as tolerated. (Genna Madrid) Attending Statement On the date of this note, the undersigned had a [id number] encounter with the patient. I personally examined the patient, obtained pertinent history, and reviewed the electronic medical record including pertinent laboratory results and imaging studies. I personally developed the treatment plan and perform medical decision making. All of the above was performed in the presence of the physician's ophthalmic surgical assistant, who has scribed my findings into the medical record as noted above. The findings and treatment plan were discussed at length with the patient's family in the intensive surgical care unit on the telephone and all questions answered. Family agrees with plans to proceed with ventriculoperitoneal shunt (Sherwin Meléndez MD) Genna Madrid May 06, 2016 09:34 Sherwin Meléndez MD May 06, 2016 22:21
--- NOTE | 2016-05-06 10:33 | HHI.CCPN ---
Subjective Remarks/Hospital Course SAH, unresponsive, malignant hypertension - This 46-year-old woman with a longstanding history of hypertension, was found unresponsive at her home and paramedics arrived to find her with shallow breathing and a Angelica coma scale of three. Systolic blood pressure was 290 and under bag mask ventilation. She was brought to the emergency department where she remained unresponsive and required endotracheal intubation, mechanical ventilation. A CT scan of the head showed a large left hemispheric intraparenchymal hemorrhage with subarachnoid blood as well. Subsequent evaluation confirmed a left middle cerebral artery aneurysm which appears to be the culprit lesion. She was brought immediately to the [facility] where we continued Cardene drip infusion for blood pressure control and placed arterial monitoring lines and central venous line. Electrolyte abnormalities were corrected, particularly severe hypokalemia. The ventilator was adjusted to maintain arterial CO2, between 35 and 40. She received Keppra loading intravenously and Nimotop through the nasogastric tube. Usual ICU monitoring was in place and arrangements were made, a ventriculostomy was placed, and transported expeditiously to interventional radiology where attempts will be made to coil the aneurysm. 04/12: Culprit (larger) aneurysm was coiled last evening. ICP acceptable with drainage bloody as expected. Withdraws 4 limbs to pain. 04/13: ICP starting to rise > 20, requiring vent manipulation, increased sedation, analgesia. 04/14: Intermittently ICP spiking >20, RR increased to 18, 50 mg of rocuronium 1. CT angiogram done today to rule out vasospasm 04/15: Remains heavily sedated for ICP control. Overall ICP control improved overnight-remained 12-14. Currently on propofol fentanyl and Versed. CT angiogram done yesterday 04/14/16 showed status post endovascular repair of left supraclinoid aneurysm, left M1 segment aneurysm stable no vasospasm. 04/16: Remains hypoxemic, FiO2 had to be increased to 70%, now down to 60%. Chest x-ray shows increasing right lower lobe infiltrate sputum with gram- negative rods. Blood pressure remains at target 04/17: ICP remains elevated at 22-25. Became hypothermic overnight, likely related to worsening sepsis. Repeat panculture ordered, and vancomycin 04/18: Labile hypertension. Start patient limits expanded to 150-190 systolic. Became more hypoxic now on 90% FiO2. Chest x-ray shows slight increase in right lower lobe infiltrate. Sodium at target 04/19: Remains critically ill with intermittent ICP elevation. ABG shows respiratory alkalosis, minute ventilation reduce which caused ICP to increase further. 3% saline restarted and 23% saline 1 bolus ordered. Chest x-ray shows slight improvement in the right lower lung infiltrate 04/20: ICP elevated to 31, 23% bolus given with improvement to 12-15. Low-grade fever with increase in white count to 16.4. Will send panculture. CTA brain in am 04/21: Remains critically ill with intermittent ICP elevation. ICP controlled with 23% bolus. Keeping sodium 150-160. CT head, CTA 04/22/1604/22: CT of the head shows evolving left frontoparietal hemorrhage with increasing midline shift 1.5 cm left to right. Intermittent ICP elevation was responsive to 23% saline. D/W Neurosurgery. 04/23: Intubated and ICP elevation up to 27, optimized on medical therapy and hyperosmolar therapy. Prognosis very poor according to neurosurgery. Per Dr. Ruiz, patient has suffered significant dominant hemisphere frontal temporal lobe hemorrhage and and consequent cerebral injury which reduces likelihood of functional recovery. Palliative care consulted-will meet with family today 04/24: Overnight high ICP elevations up to 40s. Currently 17-20. Family meeting with palliative care. Optimized on hyperosmolar therapy. Ct head per Dr. Meléndez- large frontal hemorrhage with mass effect, persistent midline shift 04/25: ICP remains high despite maximum hyperosmolar therapy. Family requests aggressive care. Dr. Meléndez is planning for left decompressive craniectomy 04/26: Patient is s/p Left frontotemporal parietal decompressive craniotomy and evacuation of temporal hematoma. ICP better controlled 04-09, remains heavily sedated 04/27: ICP remains better control, 11-12. No acute events overnight. Overnight off Cardene or Levophed. Sedation vacation not approved by neurosurgery yet 04/28: Remains intubated sedated, ICP well control, CT of the head pending. Status post PEG tube placement, plan is for tracheostomy tomorrow. Increased 3 % saline to 30 mL per hour. 04/29: Ventric raised to 10. Will start SBTs. PEG placed, start TFs. Trach in place. Clean, dry. 04/30: Will lighten sedation and proceed with spontaneous breathing trials when OK with Dr. Meléndez. 05/01: Plans noted. Agree. Will mainatin hypertension and allow patient to slowly diurese extra free water. D/C antibiotics as NG. Check C. diff culture. 05/02: Stopped all antibiotics and antifungals. Will reculture completely and check C.diff PCR ahead of possible TRUCK DRIVER'S OFFSIDER shunt placement thursday. Cardene requirements remain high - will start scheduled labetalol and gentle diuretic. Way ahead free water. Will continue to keep well hydrated and hypertensive for SAH vasospasm prevention. 05/03: Urine insignificant colonization, no invasive infection. Others NGTD. Holding abx. Culture for fevers. Diuresing well while maintaining good perfusion pressure. 05/04: Good peripheral perfusion after aggressive diuresis. If creatinine OK will give one dose tobramycin to sterilize to lightly colonized urine. Hypertensive urgency persists, favorable actually for her disease state. 05/05: Will add daily ceftriaxone for urine for 5 days. This is not a significant infection, but in view of intention to place prosthetic device we will cover. 05/06: Continued swelling left hemisphere. Will concentrate serum more. Objective - Vital Signs Date Time Temp Pulse Resp B/P Pulse Ox O2 Delivery O2 Flow Rate FiO2 05/06/16 10:00 116 05/06/16 08:00 40 05/06/16 08:00 99.0 14 124/60 100 Intake and Output 05/05/16 05/05/16 05/06/16 08:00 16:00 00:00 Intake Total 663 ml 592 ml 485 ml Output Total 934 ml 1450 ml 200 ml Balance -271 ml -858 ml 285 ml Result Diagram: 05/06/16 0540 05/06/16 0540 Other Results Laboratory Tests Test 04/11/16 04/11/16 04/12/16 13:06 20:44 05:58 Blood Gas Puncture Site ART LINE ART LINE ART LINE Blood Gas Patient Temperature 98.6 98.6 98.6 Blood Gas HCO3 20 mmol/L 21 mmol/L 19 mmol/L (22-26) (22-26) (22-26) Blood Gas Base Excess -4.2 mmol/L -3.1 mmol/L -4.9 mmol/L (-2-2) (-2-2) (-2-2) Blood Gas Oxygen Saturation 98 % (90-100) 98 % (90-100) 97 % (90-100) Arterial Blood pH 7.40 7.42 7.42 (7.380-7.420) (7.380-7.420) (7.380-7.420) Arterial Blood Partial 33 mmHg (38-42) 33 mmHg (38-42) 30 mmHg (38-42) Pressure CO2 Arterial Blood Partial 372 mmHg 450 mmHg 135 mmHg Pressure O2 (61-120) (61-120) (61-120) Arterial Blood Oxygen Content 11.0 Vol % 10.2 Vol % 15.4 Vol % (12.0-20.0) (12.0-20.0) (12.0-20.0) Arterial Blood 1.5 % (0-4) 1.4 % (0-4) 1.3 % (0-4) Carboxyhemoglobin Arterial Blood Methemoglobin 1.2 % (0-2) 1.2 % (0-2) 1.1 % (0-2) Blood Gas Hemoglobin 7.3 G/DL 6.5 G/DL 11.2 G/DL (12.0-16.0) (12.0-16.0) (12.0-16.0) Oxygen Delivery Device VENT VENTILATOR VENTILATOR Blood Gas Ventilator Setting PRVC/20RATE/500/5PEE PRVC/AC PRVC/AC Blood Gas Inspired Oxygen 100 % 100 % 40 % Objective Remarks Infusions Propofol -> off Fentanyl -> off. Versed -> off GEN: Middle-aged female, intubated and sedated, critically ill. Craniotomy dressing in place, dry, clean HEENT: Atraumatic. EVD in place. Pupils 2 mm reactive. Tongue swollen but much less protuberant NECK: Supple. No resistance to motion. Trach in place, clean, dry. LUNGS: Clear, no wheezes or crackles. Few mobile secretions. HEART: Normal S1-S2, tachycardia, loud systolic murmur LSB to apex. ABDOMEN: Soft, nontender, nondistended, no guarding, bowel sounds hyperactive. EXTREMITIES: Warm, well-perfused. 2+ peripheral edema, improved. NEUROLOGIC: Pupils 2 mm, nonreactive, No withdrawal to pain. EVD in place. Opens eyes randomly, not to stimulation or voice. A/P Assessment and Plan Acute subarachnoid hemorrhage, left middle cerebral artery aneurysm Large left frontal hemorrhage Intracranial hypertension Acute respiratory failure on mechanical ventilation RLL pneumonia/E Coli in sputum Sepsis Acute encephalopathy Malignant hypertension Status post coiling of MCA aneurysm Severe LV concentric hypertrophy. Probable HOCM Hypokalemia History of hypertension Lactic acidosis PLAN: NEURO: Acute subarachnoid hemorrhage, left middle cerebral artery aneurysm Intracranial hypertension, uncontrolled Acute encephalopathy s/p left decompressive craniotomy 04/25/16 and evacuation of temporal hematoma s/p endovascular coiling of ruptured cerebral aneurysm Patient has suffered significant dominant hemisphere frontal temporal lobe hemorrhage and consequent cerebral injury which reduces likelihood of functional recovery. Family request aggressive care and Dr. Meléndez performed left decompressive craniotomy 04/25/16 and evacuation of temporal hematoma Sedation/analgesia (Propofol, Versed and Fentanyl) to help control ICP. Mild hypervolemia using CVP. No spontaneous awakening trial until approved by N/S. f/u CT head today 04/28/16 Continue Ventricular drain. Keppra, Nimotop. Treat fever aggressively. Nimbex for ICP control-DCd 04/21/16 23% PRN for ICP >20. Keep Na 150-155. 3% gtt at [address] angiogram done 04/14, 04/16/16, 04/22/16 showed status post endovascular repair of left supraclinoid aneurysm, left M1 segment aneurysm stable no vasospasm. Continue with hypervolemia and hypertension for vasospasm prevention. Target SBP 180 for vasospasm prophylaxis. Will start reducing sedation when OK with Neurosurgery. Palliative care following, remains full code CV: Uncontrolled HTN, now permissive Severe LV concentric hypertrophy. Probable HOCM Target SBP 150-190 for vasospasm prophylaxis. Maintain preload, follow CVP, for hypervolemia. Use Levophed/Cardene PRN Continue Nimotop. (Recommendation for consideration of septal ablation on echo, patient is not a candidate for surgical intervention due to devastating neuro injury) Continue heart rate control and antihypertensives. Keep SBP < 190. RESP: Acute respiratory failure HCAP PC/AC vent mode, adjust vent rate to keep EtCO2 28-33. Nebs prn and scheduled. Vent bundle. No vent weaning due to high ICP, severe encephalopathy Tracheostomy 04/29 : Rebollar required for hourly output. Continue diuresis and Na concentration. May need assistance with 3% saline again. GI: Restart tube feeds a.m. Lactulose to 30 ml q8. Dulcolax suppository PRN, Having BM GI -> PEG tube placement HEME: Serial Hgb. Monitor CBC ID: Sepsis HCAP with E Coli, Haemophilus Sputum cx EColi, haemophilus and blood cultures neg to date. On Zosyn 4.5 GM IV q6 04/15/16. Levaquin was added 04/16/16 to cover for Stenotrophomonas -DCd 04/19, restarted again 04/20/16- 04/26/16 Repeat panculture with blood urine and sputum cultures 04/17/16 negative to date CXR bilateral infiltrates, with leukocytosis and brown sputum Resend cultures due to low grade fever and increased WBC 04/20 -NEG to date ENDO: SSI for euglycemia, avoid hypokalemia, hypo Mag PX: SCDs. Protonix. Cleared by Dr. Morris to use Lovenox for chemical DVT prophylaxis on 04/19/16 Overall impression: Presented with severe SAH and left parenchymal bleed from ruptured aneurysm, with cerebral edema, elevated ICP. Prolonged intractable ICP elevation, then left decompressive hemicraniectomy, for new left frontoparietal hemorrhage, at request of family when option presented. Developed HCAP and severe sepsis. Remains critically ill and prognosis guarded at best, palliative care following. Recultured completely. C.diff PCR negative. Possible TRUCK DRIVER'S OFFSIDER shunt placement soon. Will continue to keep well hydrated. Remains critically ill and at risk for vasospasm. So far tolerating diuresis while maintaining SBP > 150. Need to concentrate serum more to help with cerebral edema. Remains critically ill and prognosis guarded at best. Critical care 38 mins Jeffrey Chand MD May 06, 2016 10:33
[2016-05-06] MEDS ORDERED: 3% SALINE INJ 500 ML IV SCH (11:00)
[2016-05-06] MEDS: LEVOFLOXACIN 750 MG PREMIX INJ 150 ML IV SCH (11:32)
[2016-05-06] MEDS: SODIUM CHLORIDE 23.4% INJ 188 MEQ in SODIUM CHLOR 0.9% 1000 ML INJ 1,000 ML IV SCH (11:43)
[2016-05-06] MEDS: ACETAMINOPHEN 650 MG/20.3 ML UDC PO PRN (11:58)
[2016-05-06] MEDS ORDERED: NOREPINEPHRINE 4 MG/4 ML AMP ONE (15:38)
[2016-05-07] VITALS (18 sets, daily range): BP systolic 120–186; BP diastolic 76–106; PULSE 79–121; RESP 14; TEMP 98.5–100.3; O2SAT 92–100
[2016-05-07] MEDS: ACETAMINOPHEN 650 MG/20.3 ML UDC PO PRN (01:52)
[2016-05-07] MEDS: CHLORHEXIDINE GLUCONATE 2 % 1 PACK (2 CLOTHS) TOP SCH (04:00)
[2016-05-07] MEDS: LABETALOL HCL 200 MG TAB PO SCH ×3 (06:00→22:00)
[2016-05-07] MEDS ORDERED: LIDOCAINE 1%/EPINEPHrine 1:100,000 SOLN 30 ML VIAL ONE (06:58)
[2016-05-07] MEDS ORDERED: GELFOAM SIZE 100 ONE (06:59)
[2016-05-07] MEDS ORDERED: GENTAMICIN SULFATE 80 MG/2 ML VIAL ONE (06:59)
[2016-05-07] MEDS ORDERED: THROMBIN (TOPICAL) 5,000 UNIT VIAL ONE (06:59)
[2016-05-07] MEDS ORDERED: ceFAZolin INJ 1,000 MG VIAL ONE (07:23)
[2016-05-07] MEDS ORDERED: SODIUM CHLOR 0.9% 250 ML INJ 250 ML ONE (08:42)
[2016-05-07] MEDS ORDERED: VANCOMYCIN HCL 1000 MG VIAL ONE (08:42)
[2016-05-07] MEDS: levETIRAcetam 500 MG/5 ML UDC TUBE SCH ×2 (09:00→22:30)
[2016-05-07] MEDS: METOPROLOL TARTRATE 25 MG TAB PO SCH ×2 (09:00→22:30)
[2016-05-07] MEDS: PANTOPRAZOLE SODIUM 40 MG VIAL IV SCH (09:00)
[2016-05-07] MEDS: METOCLOPRAMIDE HCL SYRUP 10 MG/10 ML UDC PO SCH ×2 (09:00→17:00)
[2016-05-07] MEDS: SODIUM CHLORIDE 0.9% FLUSH 5 ML FLUSH IVF SCH ×2 (09:00→22:29)
[2016-05-07] MEDS: cefTRIAXone INJ 1,000 MG in SODIUM CHLORIDE 0.9% INJ 100 ML IV SCH (09:00)
[2016-05-07] MEDS ORDERED: fentaNYL CITRATE 250 MCG/5 ML AMP ONE (10:27)
[2016-05-07] MEDS: LABETALOL HCL 100 MG/20 ML VIAL IVS PRN ×2 (11:36→18:32)
[2016-05-07] MEDS: LEVOFLOXACIN 750 MG PREMIX INJ 150 ML IV SCH (11:36)
[2016-05-07] MEDS ORDERED: PHENYLEPH/NS 1000 MCG/10 ML SYR IV ONE (12:00)
[2016-05-07] MEDS ORDERED: LACTATED RINGER'S 1000 ML INJ 1,000 ML IV ONE (12:00)
[2016-05-07] MEDS ORDERED: ONDANSETRON HCL 4 MG/2 ML VIAL IV PUSH ONE (12:00)
[2016-05-07] MEDS: SODIUM CHLORIDE 23.4% INJ 188 MEQ in SODIUM CHLOR 0.9% 1000 ML INJ 1,000 ML IV SCH (13:00)
--- NOTE | 2016-05-07 17:03 | HHI.CCPN ---
Subjective Remarks/Hospital Course SAH, unresponsive, malignant hypertension - This 46-year-old woman with a longstanding history of hypertension, was found unresponsive at her home and paramedics arrived to find her with shallow breathing and a Angelica coma scale of three. Systolic blood pressure was 290 and under bag mask ventilation. She was brought to the emergency department where she remained unresponsive and required endotracheal intubation, mechanical ventilation. A CT scan of the head showed a large left hemispheric intraparenchymal hemorrhage with subarachnoid blood as well. Subsequent evaluation confirmed a left middle cerebral artery aneurysm which appears to be the culprit lesion. She was brought immediately to the [facility] where we continued Cardene drip infusion for blood pressure control and placed arterial monitoring lines and central venous line. Electrolyte abnormalities were corrected, particularly severe hypokalemia. The ventilator was adjusted to maintain arterial CO2, between 35 and 40. She received Keppra loading intravenously and Nimotop through the nasogastric tube. Usual ICU monitoring was in place and arrangements were made, a ventriculostomy was placed, and transported expeditiously to interventional radiology where attempts will be made to coil the aneurysm. 04/12: Culprit (larger) aneurysm was coiled last evening. ICP acceptable with drainage bloody as expected. Withdraws 4 limbs to pain. 04/13: ICP starting to rise > 20, requiring vent manipulation, increased sedation, analgesia. 04/14: Intermittently ICP spiking >20, RR increased to 18, 50 mg of rocuronium 1. CT angiogram done today to rule out vasospasm 04/15: Remains heavily sedated for ICP control. Overall ICP control improved overnight-remained 12-14. Currently on propofol fentanyl and Versed. CT angiogram done yesterday 04/14/16 showed status post endovascular repair of left supraclinoid aneurysm, left M1 segment aneurysm stable no vasospasm. 04/16: Remains hypoxemic, FiO2 had to be increased to 70%, now down to 60%. Chest x-ray shows increasing right lower lobe infiltrate sputum with gram- negative rods. Blood pressure remains at target 04/17: ICP remains elevated at 22-25. Became hypothermic overnight, likely related to worsening sepsis. Repeat panculture ordered, and vancomycin 04/18: Labile hypertension. Start patient limits expanded to 150-190 systolic. Became more hypoxic now on 90% FiO2. Chest x-ray shows slight increase in right lower lobe infiltrate. Sodium at target 04/19: Remains critically ill with intermittent ICP elevation. ABG shows respiratory alkalosis, minute ventilation reduce which caused ICP to increase further. 3% saline restarted and 23% saline 1 bolus ordered. Chest x-ray shows slight improvement in the right lower lung infiltrate 04/20: ICP elevated to 31, 23% bolus given with improvement to 12-15. Low-grade fever with increase in white count to 16.4. Will send panculture. CTA brain in am 04/21: Remains critically ill with intermittent ICP elevation. ICP controlled with 23% bolus. Keeping sodium 150-160. CT head, CTA 04/22/1604/22: CT of the head shows evolving left frontoparietal hemorrhage with increasing midline shift 1.5 cm left to right. Intermittent ICP elevation was responsive to 23% saline. D/W Neurosurgery. 04/23: Intubated and ICP elevation up to 27, optimized on medical therapy and hyperosmolar therapy. Prognosis very poor according to neurosurgery. Per Dr. Ruiz, patient has suffered significant dominant hemisphere frontal temporal lobe hemorrhage and and consequent cerebral injury which reduces likelihood of functional recovery. Palliative care consulted-will meet with family today 04/24: Overnight high ICP elevations up to 40s. Currently 17-20. Family meeting with palliative care. Optimized on hyperosmolar therapy. Ct head per Dr. Meléndez- large frontal hemorrhage with mass effect, persistent midline shift 04/25: ICP remains high despite maximum hyperosmolar therapy. Family requests aggressive care. Dr. Meléndez is planning for left decompressive craniectomy 04/26: Patient is s/p Left frontotemporal parietal decompressive craniotomy and evacuation of temporal hematoma. ICP better controlled 04-09, remains heavily sedated 04/27: ICP remains better control, 11-12. No acute events overnight. Overnight off Cardene or Levophed. Sedation vacation not approved by neurosurgery yet 04/28: Remains intubated sedated, ICP well control, CT of the head pending. Status post PEG tube placement, plan is for tracheostomy tomorrow. Increased 3 % saline to 30 mL per hour. 04/29: Ventric raised to 10. Will start SBTs. PEG placed, start TFs. Trach in place. Clean, dry. 04/30: Will lighten sedation and proceed with spontaneous breathing trials when OK with Dr. Meléndez. 05/01: Plans noted. Agree. Will mainatin hypertension and allow patient to slowly diurese extra free water. D/C antibiotics as NG. Check C. diff culture. 05/02: Stopped all antibiotics and antifungals. Will reculture completely and check C.diff PCR ahead of possible ACQUISITION EDITOR shunt placement thursday. Cardene requirements remain high - will start scheduled labetalol and gentle diuretic. Way ahead free water. Will continue to keep well hydrated and hypertensive for SAH vasospasm prevention. 05/03: Urine insignificant colonization, no invasive infection. Others NGTD. Holding abx. Culture for fevers. Diuresing well while maintaining good perfusion pressure. 05/04: Good peripheral perfusion after aggressive diuresis. If creatinine OK will give one dose tobramycin to sterilize to lightly colonized urine. Hypertensive urgency persists, favorable actually for her disease state. 05/05: Will add daily ceftriaxone for urine for 5 days. This is not a significant infection, but in view of intention to place prosthetic device we will cover. 05/06: Continued swelling left hemisphere. Will concentrate serum more. 05/07: Back from OR on ventilator. BP acceptable. Good gas exchange. Objective - Vital Signs Date Time Temp Pulse Resp B/P Pulse Ox O2 Delivery O2 Flow Rate FiO2 05/07/16 16:10 96 40 05/07/16 16:00 88 05/07/16 16:00 98.7 14 186/84 Intake and Output 05/06/16 05/06/16 05/07/16 08:00 16:00 00:00 Intake Total 368 ml 702 ml 646 ml Output Total 175 ml 1704 ml 450 ml Balance 193 ml -1002 ml 196 ml Result Diagram: 05/06/16 0540 05/07/16 0400 Other Results Laboratory Tests Test 04/11/16 04/11/16 04/12/16 13:06 20:44 05:58 Blood Gas Puncture Site ART LINE ART LINE ART LINE Blood Gas Patient Temperature 98.6 98.6 98.6 Blood Gas HCO3 20 mmol/L 21 mmol/L 19 mmol/L (22-26) (22-26) (22-26) Blood Gas Base Excess -4.2 mmol/L -3.1 mmol/L -4.9 mmol/L (-2-2) (-2-2) (-2-2) Blood Gas Oxygen Saturation 98 % (90-100) 98 % (90-100) 97 % (90-100) Arterial Blood pH 7.40 7.42 7.42 (7.380-7.420) (7.380-7.420) (7.380-7.420) Arterial Blood Partial 33 mmHg (38-42) 33 mmHg (38-42) 30 mmHg (38-42) Pressure CO2 Arterial Blood Partial 372 mmHg 450 mmHg 135 mmHg Pressure O2 (61-120) (61-120) (61-120) Arterial Blood Oxygen Content 11.0 Vol % 10.2 Vol % 15.4 Vol % (12.0-20.0) (12.0-20.0) (12.0-20.0) Arterial Blood 1.5 % (0-4) 1.4 % (0-4) 1.3 % (0-4) Carboxyhemoglobin Arterial Blood Methemoglobin 1.2 % (0-2) 1.2 % (0-2) 1.1 % (0-2) Blood Gas Hemoglobin 7.3 G/DL 6.5 G/DL 11.2 G/DL (12.0-16.0) (12.0-16.0) (12.0-16.0) Oxygen Delivery Device VENT VENTILATOR VENTILATOR Blood Gas Ventilator Setting PRVC/20RATE/500/5PEE PRVC/AC PRVC/AC Blood Gas Inspired Oxygen 100 % 100 % 40 % Objective Remarks GEN: Middle-aged female, intubated and sedated, critically ill. New craniotomy dressing in place ride side, dry, clean HEENT: Atraumatic. EVD in place. Pupils 2 mm reactive. Tongue swollen. NECK: Supple. No resistance to motion. Trach in place, clean, dry. No drainage. LUNGS: Clear, no wheezes or crackles. Few mobile secretions. HEART: Normal S1-S2, RRR. ABDOMEN: Soft, nontender, nondistended, no guarding, bowel sounds normal. EXTREMITIES: Warm, well-perfused. 2+ peripheral edema, improved. NEUROLOGIC: Pupils 2 mm, nonreactive, No withdrawal to pain. EVD removed, shunt in place. Opens eyes randomly, not to stimulation or voice. A/P Assessment and Plan Acute subarachnoid hemorrhage, left middle cerebral artery aneurysm Large left frontal hemorrhage Intracranial hypertension Acute respiratory failure on mechanical ventilation RLL pneumonia/E Coli in sputum Sepsis Acute encephalopathy Malignant hypertension Status post coiling of MCA aneurysm Severe LV concentric hypertrophy. Probable HOCM Hypokalemia History of hypertension Lactic acidosis PLAN: NEURO: Acute subarachnoid hemorrhage, left middle cerebral artery aneurysm Intracranial hypertension, uncontrolled Acute encephalopathy s/p left decompressive craniotomy 04/25/16 and evacuation of temporal hematoma s/p endovascular coiling of ruptured cerebral aneurysm Patient has suffered significant dominant hemisphere frontal temporal lobe hemorrhage and consequent cerebral injury which reduces likelihood of functional recovery. Family request aggressive care and Dr. Meléndez performed left decompressive craniotomy 04/25/16 and evacuation of temporal hematoma Sedation/analgesia (Propofol, Versed and Fentanyl) to help control ICP. Mild hypervolemia using CVP. No spontaneous awakening trial until approved by N/S. f/u CT head today 04/28/16 Continue Ventricular drain. Keppra, Nimotop. Treat fever aggressively. Nimbex for ICP control-DCd 04/21/16 23% PRN for ICP >20. Keep Na 150-155. 3% gtt at [address] angiogram done 04/14, 04/16/16, 04/22/16 showed status post endovascular repair of left supraclinoid aneurysm, left M1 segment aneurysm stable no vasospasm. Continue with hypervolemia and hypertension for vasospasm prevention. Target SBP 180 for vasospasm prophylaxis. Will start reducing sedation when OK with Neurosurgery. Palliative care following, remains full code CV: Uncontrolled HTN, now permissive Severe LV concentric hypertrophy. Probable HOCM Target SBP 150-190 for vasospasm prophylaxis. Maintain preload, follow CVP, for hypervolemia. Use Levophed/Cardene PRN Continue Nimotop. (Recommendation for consideration of septal ablation on echo, patient is not a candidate for surgical intervention due to devastating neuro injury) Continue heart rate control and antihypertensives. Keep SBP < 190. RESP: Acute respiratory failure HCAP PC/AC vent mode, adjust vent rate to keep EtCO2 28-33. Nebs prn and scheduled. Vent bundle. No vent weaning due to high ICP, severe encephalopathy Tracheostomy 04/29 : Rebollar required for hourly output. Continue diuresis and Na concentration. May need assistance with 3% saline again. GI: Restart tube feeds a.m. Lactulose to 30 ml q8. Dulcolax suppository PRN, Having BM GI -> PEG tube placement HEME: Serial Hgb. Monitor CBC ID: Sepsis HCAP with E Coli, Haemophilus Sputum cx EColi, haemophilus and blood cultures neg to date. On Zosyn 4.5 GM IV q6 04/15/16. Levaquin was added 04/16/16 to cover for Stenotrophomonas -DCd 04/19, restarted again 04/20/16- 04/26/16 Repeat panculture with blood urine and sputum cultures 04/17/16 negative to date CXR bilateral infiltrates, with leukocytosis and brown sputum Resend cultures due to low grade fever and increased WBC 04/20 -NEG to date ENDO: SSI for euglycemia, avoid hypokalemia, hypo Mag PX: SCDs. Protonix. Cleared by Dr. Morris to use Lovenox for chemical DVT prophylaxis on 04/19/16 Overall impression: Presented with severe SAH and left parenchymal bleed from ruptured aneurysm, with cerebral edema. V-P shunt placed and EVD removed. Jeffrey Chand MD May 07, 2016 17:03
--- NOTE | 2016-05-07 20:29 | PD.OP ---
Operative Report Date of Surgery: May 07, 2016 Preoperative Diagnosis: (1) Cerebral aneurysm rupture (2) Hydrocephalus Postoperative Diagnosis: (1) Cerebral aneurysm rupture (2) Hydrocephalus Procedure: 1. Right frontal bur hole for ventriculoperitoneal shunt placement Anesthesia: Gen. endotracheal Surgeon: Sherwin Meléndez Tree Specialist(s): Karina Martínez Operation and Findings: Procedure in detail: The patient was brought into the operating room and general anesthesia induced without difficulty. Tracheostomy and PEG tube were already in place. Rebollar catheter, and sequential compression devices were in place. Lines were established per anesthesia. The patient was placed in the supine position on the 3080 table with the head turned towards the left on the horseshoe headrest. All extremities were appropriately padded The right side of the head, neck, chest, and abdomen were shaved with the clippers and sterilely prepped and draped. Appropriate procedure was performed with all personal present and in agreement 1% Xylocaine with epinephrine was used for local infiltration of the incision sites. The previous ventriculostomy catheter was removed and the small incision closed with 3-0 nylon suture prior to prepping and draping. The initial incision was made in a curvilinear fashion at the right frontal region approximately 3-4 cm lateral to the midline in the mid pupillary line and approximately 1 cm anterior to the coronal suture and carried sharply down to the cranium. The battery stacker was used to place a small bur hole and the dura was incised with the 15 blade knife and edges coagulated with the bipolar forceps. Small incision was made in the cortical surface with the bipolar. The second incision was made at the right upper quadrant of the abdomen just below the costal margin and carried sharply down to the muscle fascia which was incised transversely and the muscle fiber split revealing the peritoneum which was grasped with mosquito forceps and incised with the 15 blade knife. The peritoneal cavity was freely entered with the [place] dissector. A 4-0 Nurolon pursestring suture was placed at the peritoneal incision. The shunt passer was used to pass the distal peritoneal catheter already attached to the distal shunt valve and secured with 2-0 silk suture from the frontal scalp incision to the abdominal incision via a small third right occipital scalp incision. The valve was preset to 70 mm water pressure prior to placement, with the setting verified with preoperative x-ray. The Codman Bactiseal ventricular catheter was then passed to a depth of approximately 6 cm intracranial with clear colorless cerebrospinal fluid obtained and a single pass. Specimen of CSF was collected. The ventricular catheter was cut to the appropriate length and secured to the proximal end of the valve with the 2-0 silk tie. After spontaneous CSF flow was noted through the distal peritoneal catheter, the abdominal catheter was cut to a length of approximately 15 cm intraperitoneal length and placed in the peritoneal cavity and pursestring suture secured. All incision sites were well irrigated with antibiotic irrigation. Closure was performed with 3-0 Vicryl running for the abdominal muscle fascia and interrupted for the abdominal subcutaneous closure and scalp galeal closure. The scalp was closed with 4-0 nylon running suture with 4-0 Vicryl running for the abdominal subcuticular closure. A dressing of sterile Mastisol and Steri- Strips was placed at each incision site. The patient was taken to recovery room in stable condition. All counts were correct at the end of the case. Estimated blood loss was less than 25 cc Specimen of CSF was sent for routine microbiology. Sherwin Meléndez MD May 07, 2016 20:29
[2016-05-07] MEDS: niCARdipine INJ 25 MG in SODIUM CHLOR 0.9% 250 ML INJ 250 ML IV SCH (22:30)
[2016-05-08] VITALS (16 sets, daily range): BP systolic 110–170; BP diastolic 84–95; PULSE 83–98; RESP 14; TEMP 98.6–100.3; O2SAT 98–100
[2016-05-08] MEDS: CHLORHEXIDINE GLUCONATE 2 % 1 PACK (2 CLOTHS) TOP SCH (04:00)
[2016-05-08] MEDS: LABETALOL HCL 200 MG TAB PO SCH ×3 (06:00→21:32)
[2016-05-08] MEDS: METOCLOPRAMIDE HCL SYRUP 10 MG/10 ML UDC PO SCH ×3 (06:14→16:29)
[2016-05-08] MEDS: NOREPINEPHRINE INJ 4 MG in SODIUM CHLOR 0.9% 250 ML INJ 250 ML IV SCH (06:24)
[2016-05-08] MEDS: levETIRAcetam 500 MG/5 ML UDC TUBE SCH ×2 (08:11→20:32)
[2016-05-08] MEDS: METOPROLOL TARTRATE 25 MG TAB PO SCH ×2 (08:12→20:32)
[2016-05-08] MEDS: SODIUM CHLORIDE 0.9% FLUSH 5 ML FLUSH IVF SCH ×2 (08:12→20:32)
[2016-05-08] MEDS: cefTRIAXone INJ 1,000 MG in SODIUM CHLORIDE 0.9% INJ 100 ML IV SCH (08:12)
[2016-05-08] MEDS: PANTOPRAZOLE SODIUM 40 MG VIAL IV SCH (08:12)
--- NOTE | 2016-05-08 09:23 | HHI.NSPN ---
History Chief Complaint: status post coil for aneurysm Interval History 04/12/16: Patient had an aneurysm coiled yesterday, intubated and sedated, ICP stable overnight 04/13/16: Increased ICP overnight, improved after a 23% saline bolus 04/14/16: ICP stable overnight 04/15/16: ICP stable, CTA stable no vasospasm 04/16/16: ICP slight increase overnight now stabilized, intubated and sedated 04/17/16: ICP increased yesterday afternoon, repeat CTA and CT stable, no vasospasm, no new hemorrhage, hypothermia overnight 04/21/16: increasing ICP over the weekend, getting 23% every 6 hours PRN. 04/22/16: ICP responding over night to 23% saline, CT and CTA planned this am. Nimbex off since yesterday. 04/23/16: ICP stable overnight, SBP increasing today RN adjusting pressors, HGB improved after 2 units of PRBC, no signs of active bleeding 04/24/16: ICP increased overnight with stimulation but not sustained, low HGB again today receiving PRBC this am 04/25/16: ICP max 38 overnight, currently 10, no family at bedside. 04/26/16: She has ventriculostomy drain in place. She underwent left decompressive craniectomy yesterday 04/[address] Meléndez due to elevated ICPs. Today, ICPs improved, currently 4. 04/27/16: intermittent spikes in ICPs overnight in low 20's controlled with hyperosmotic bolus. Currently 9. well sedated. 04/28/16: ICP stable between 9-14 per RN. EVD draining blood tinged CSF, flap firm non-pulsatile 04/29/16: ICP stable overnight, PEG yesterday, Trach today. 04/30/16: EVD clamped 05/01/16: EVD clamped, ICP max 17, currently 14. 05/02/16: EVD draining, ICP 9, no sedation 05/03/16: Pt with eyes open. Not following commands. Pupils 4mm bilaterally reactive bilaterally. Ventriculostomy in place at [id number]. ICP 8. 9/4/16: Pt with eyes open. Not following commands. Pupils 4mm bilaterally reactive bilaterally. Ventriculostomy in place at [id number]. ICP 8. 05/05/16: Day 24 after PCOM aneurysm bleed and coiling, Pupils reactives, eyes now open and she is more alert. EVD was clamped this am, remains straw coloured. 05/06/16: eyes open, very mild flexion to deep pain in the upper extremities. 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 for CARD CUTTER HELPER shunt placement 05/08/16: POD 1 from shunt placement, eyes open, does not track Exam Results Vital Signs Date Time Temp Pulse Resp B/P Pulse Ox O2 Delivery O2 Flow Rate FiO2 05/08/16 08:30 100 40 05/08/16 08:00 95 05/08/16 08:00 100.3 14 151/84 Intake and Output 05/07/16 05/07/16 05/08/16 08:00 16:00 00:00 Intake Total 595 ml 533 ml 603 ml Output Total 507 ml 450 ml 1000 ml Balance 88 ml 83 ml -397 ml Physical Examination Ventilated via tracheostomy. No sedation. Eyes open. Does not track. Pupils 4 mm slight bilaterally. Right gaze deficit. No withdrawal in the upper extremities. Mild withdrawal in the lower extremities to deep pain. Flap sunken. Bilateral Incision clean and dry without signs of infection. SCDs and heel protect boots in place. Lab, Micro, Other Results Last Impressions Head CT 05/06/16 0600 Signed Impressions: Service Date/Time: Friday, May 06, 2016 04:23 - CONCLUSION: 1. 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 Midline shift has resolved but there is persistent herniation of brain at the craniotomy defect. 2. No new or acute blood demonstrated. 3. Mild to moderate ventriculomegaly, increased. 4. Sinusitis and apparent mastoiditis. Fei Hughes MD Head CTA 05/02/16 0600 Signed Impressions: Service Date/Time: Monday, May 02, 2016 04:32 - CONCLUSION: Satisfactory appearance post aneurysm coiling Fei Snyder MD Chest X-Ray 04/30/16 0000 Signed Impressions: Service Date/Time: Saturday, April 30, 2016 19:33 - CONCLUSION: 1. Cardiac enlargement. Bilateral airspace disease. Pleural effusion, left greater than right. Findings similar to April 29 considering differences in technique. Tracheostomy unchanged. Quinn Bateman MD Abdomen/Pelvis CT 04/24/16 1416 Signed Impressions: Service Date/Time: March 14:39 - CONCLUSION: Mild small bowel ileus with scattered air-fluid levels. Bibasilar lung consolidation with associated small effusions. Significant soft tissue fluid accumulation with edematous changes throughout the abdominal wall. Nasogastric tube in good position. Saqib Garcia MD Neck CTA 04/11/16 1151 Signed Impressions: Service Date/Time: Monday, April 11, 2016 12:01 - CONCLUSION: Negative for hemodynamically significant carotid stenosis. Ricardo Castellanos MD FACR Cerebral Arteriogram 04/11/16 0000 Signed Impressions: Service Date/Time: Monday, April 11, 2016 14:18 - CONCLUSION: 1. 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 This is the aneurysm felt responsible for the intracranial hemorrhage. 2. Small 4 mm left M1 segment aneurysm. Attempts at embolizing this aneurysm were unsuccessful due to the broad based nature of the aneurysm. Endovascular repair of this aneurysm could not be performed. Kennedy Thibodeaux Jr., MD Laboratory Tests Test 05/07/16 05/08/16 20:06 07:00 Sodium Level 142 MEQ/L 142 MEQ/L Serum Osmolality 297 MOSM/KG 295 MOSM/KG Medical Decision Making Impression and Plan Impression: 1. Neurologic exam stable following endovascular coiling of ruptured cerebral aneurysm with subsequent left decompressive craniotomy 04/14/16 CT angiogram stable: Status post endovascular repair of left supraclinoid aneurysm. Left M1 segment aneurysm stable 04/16/[address] and CTA stable. No vasospasm, no new hemorrhage. 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 Midline shift has resolved but there is persistent herniation of brain at the craniotomy defect. No new or acute blood demonstrated. Mild to moderate ventriculomegaly, increased. Plan: Codman valve at [id number], will increase to [id number] today since flap is sunken. Resume tube feeds. Resume Lovenox. CARD CUTTER HELPER shunt scheduled for 05/07 D/W nurse she will obtain consents from the daughter. Hold Lovenox NPO at midnight for procedure tomm. Final CSF culture and gram stain from 05/05 pending, negative at 24 hours. Maintain systolic blood pressure 110-160 range Continue to monitor sodium level, keep 145-155. 23% saline for ICP over 25. Hold for Na+ greater than 160. Director Of Rehabilitation following for medical management. Keppra for seizure prophylaxis. Protonix for ulcer prophylaxis Tube feeds as tolerated. Genna Madrid May 08, 2016 09:23
--- NOTE | 2016-05-08 09:27 | HHI.NSPN ---
History Chief Complaint: status post coil for aneurysm Interval History 04/12/16: Patient had an aneurysm coiled yesterday, intubated and sedated, ICP stable overnight 04/13/16: Increased ICP overnight, improved after a 23% saline bolus 04/14/16: ICP stable overnight 04/15/16: ICP stable, CTA stable no vasospasm 04/16/16: ICP slight increase overnight now stabilized, intubated and sedated 04/17/16: ICP increased yesterday afternoon, repeat CTA and CT stable, no vasospasm, no new hemorrhage, hypothermia overnight 04/21/16: increasing ICP over the weekend, getting 23% every 6 hours PRN. 04/22/16: ICP responding over night to 23% saline, CT and CTA planned this am. Nimbex off since yesterday. 04/23/16: ICP stable overnight, SBP increasing today RN adjusting pressors, HGB improved after 2 units of PRBC, no signs of active bleeding 04/24/16: ICP increased overnight with stimulation but not sustained, low HGB again today receiving PRBC this am 04/25/16: ICP max 38 overnight, currently 10, no family at bedside. 04/26/16: She has ventriculostomy drain in place. She underwent left decompressive craniectomy yesterday 04/[address] Meléndez due to elevated ICPs. Today, ICPs improved, currently 4. 04/27/16: intermittent spikes in ICPs overnight in low 20's controlled with hyperosmotic bolus. Currently 9. well sedated. 04/28/16: ICP stable between 9-14 per RN. EVD draining blood tinged CSF, flap firm non-pulsatile 04/29/16: ICP stable overnight, PEG yesterday, Trach today. 04/30/16: EVD clamped 05/01/16: EVD clamped, ICP max 17, currently 14. 05/02/16: EVD draining, ICP 9, no sedation 05/03/16: Pt with eyes open. Not following commands. Pupils 4mm bilaterally reactive bilaterally. Ventriculostomy in place at [id number]. ICP 8. 9/4/16: Pt with eyes open. Not following commands. Pupils 4mm bilaterally reactive bilaterally. Ventriculostomy in place at [id number]. ICP 8. 05/05/16: Day 24 after PCOM aneurysm bleed and coiling, Pupils reactives, eyes now open and she is more alert. EVD was clamped this am, remains straw coloured. 05/06/16: eyes open, very mild flexion to deep pain in the upper extremities. 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 for CARD HANGER shunt placement 05/08/16: POD 1 from shunt placement, eyes open, does not track Exam Results Vital Signs Date Time Temp Pulse Resp B/P Pulse Ox O2 Delivery O2 Flow Rate FiO2 05/08/16 08:30 100 40 05/08/16 08:00 95 05/08/16 08:00 100.3 14 151/84 Intake and Output 05/07/16 05/07/16 05/08/16 08:00 16:00 00:00 Intake Total 595 ml 533 ml 603 ml Output Total 507 ml 450 ml 1000 ml Balance 88 ml 83 ml -397 ml Physical Examination Ventilated via tracheostomy. No sedation. Eyes open. Does not track. Pupils 4 mm slight bilaterally. Right gaze deficit. No withdrawal in the upper extremities. Mild withdrawal in the lower extremities to deep pain. Flap sunken. Bilateral Incision clean and dry without signs of infection. SCDs and heel protect boots in place. Medical Decision Making Impression and Plan Impression: 1. Neurologic exam stable following endovascular coiling of ruptured cerebral aneurysm with subsequent left decompressive craniotomy 04/14/16 CT angiogram stable: Status post endovascular repair of left supraclinoid aneurysm. Left M1 segment aneurysm stable 04/16/[address] and CTA stable. No vasospasm, no new hemorrhage. 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 Midline shift has resolved but there is persistent herniation of brain at the craniotomy defect. No new or acute blood demonstrated. Mild to moderate ventriculomegaly, increased. Plan: f/u head CT tomm. Codman valve at [id number], will increase to [id number] today since flap is sunken. Resume tube feeds. Jevity 1.5 60ml hour goal. D/W Dr. Aparicio. Resume Lovenox. Maintain systolic blood pressure 110-160 range Continue to monitor sodium level, keep 145-155. 23% saline for ICP over 25. Hold for Na+ greater than 160. Food Service Agent following for medical management. Keppra for seizure prophylaxis. Protonix for ulcer prophylaxis Genna Madrid May 08, 2016 09:27
[2016-05-08] MEDS: LEVOFLOXACIN 750 MG PREMIX INJ 150 ML IV SCH (10:23)
[2016-05-08] MEDS: ENOXAPARIN SODIUM 30 MG/0.3 ML SYRINGE SQ SCH ×2 (10:23→21:33)
[2016-05-08] MEDS: ACETAMINOPHEN 325MG/HYDROcodone 7.5MG/15ML UDC PO PRN ×2 (10:23→16:29)
--- NOTE | 2016-05-08 10:29 | HHI.CCPN ---
Subjective Remarks/Hospital Course SAH, unresponsive, malignant hypertension - This 46-year-old woman with a longstanding history of hypertension, was found unresponsive at her home and paramedics arrived to find her with shallow breathing and a Angelica coma scale of three. Systolic blood pressure was 290 and under bag mask ventilation. She was brought to the emergency department where she remained unresponsive and required endotracheal intubation, mechanical ventilation. A CT scan of the head showed a large left hemispheric intraparenchymal hemorrhage with subarachnoid blood as well. Subsequent evaluation confirmed a left middle cerebral artery aneurysm which appears to be the culprit lesion. She was brought immediately to the [facility] where we continued Cardene drip infusion for blood pressure control and placed arterial monitoring lines and central venous line. Electrolyte abnormalities were corrected, particularly severe hypokalemia. The ventilator was adjusted to maintain arterial CO2, between 35 and 40. She received Keppra loading intravenously and Nimotop through the nasogastric tube. Usual ICU monitoring was in place and arrangements were made, a ventriculostomy was placed, and transported expeditiously to interventional radiology where attempts will be made to coil the aneurysm. 04/12: Culprit (larger) aneurysm was coiled last evening. ICP acceptable with drainage bloody as expected. Withdraws 4 limbs to pain. 04/13: ICP starting to rise > 20, requiring vent manipulation, increased sedation, analgesia. 04/14: Intermittently ICP spiking >20, RR increased to 18, 50 mg of rocuronium 1. CT angiogram done today to rule out vasospasm 04/15: Remains heavily sedated for ICP control. Overall ICP control improved overnight-remained 12-14. Currently on propofol fentanyl and Versed. CT angiogram done yesterday 04/14/16 showed status post endovascular repair of left supraclinoid aneurysm, left M1 segment aneurysm stable no vasospasm. 04/16: Remains hypoxemic, FiO2 had to be increased to 70%, now down to 60%. Chest x-ray shows increasing right lower lobe infiltrate sputum with gram- negative rods. Blood pressure remains at target 04/17: ICP remains elevated at 22-25. Became hypothermic overnight, likely related to worsening sepsis. Repeat panculture ordered, and vancomycin 04/18: Labile hypertension. Start patient limits expanded to 150-190 systolic. Became more hypoxic now on 90% FiO2. Chest x-ray shows slight increase in right lower lobe infiltrate. Sodium at target 04/19: Remains critically ill with intermittent ICP elevation. ABG shows respiratory alkalosis, minute ventilation reduce which caused ICP to increase further. 3% saline restarted and 23% saline 1 bolus ordered. Chest x-ray shows slight improvement in the right lower lung infiltrate 04/20: ICP elevated to 31, 23% bolus given with improvement to 12-15. Low-grade fever with increase in white count to 16.4. Will send panculture. CTA brain in am 04/21: Remains critically ill with intermittent ICP elevation. ICP controlled with 23% bolus. Keeping sodium 150-160. CT head, CTA 04/22/1604/22: CT of the head shows evolving left frontoparietal hemorrhage with increasing midline shift 1.5 cm left to right. Intermittent ICP elevation was responsive to 23% saline. D/W Neurosurgery. 04/23: Intubated and ICP elevation up to 27, optimized on medical therapy and hyperosmolar therapy. Prognosis very poor according to neurosurgery. Per Dr. Ruiz, patient has suffered significant dominant hemisphere frontal temporal lobe hemorrhage and and consequent cerebral injury which reduces likelihood of functional recovery. Palliative care consulted-will meet with family today 04/24: Overnight high ICP elevations up to 40s. Currently 17-20. Family meeting with palliative care. Optimized on hyperosmolar therapy. Ct head per Dr. Meléndez- large frontal hemorrhage with mass effect, persistent midline shift 04/25: ICP remains high despite maximum hyperosmolar therapy. Family requests aggressive care. Dr. Meléndez is planning for left decompressive craniectomy 04/26: Patient is s/p Left frontotemporal parietal decompressive craniotomy and evacuation of temporal hematoma. ICP better controlled 04-09, remains heavily sedated 04/27: ICP remains better control, 11-12. No acute events overnight. Overnight off Cardene or Levophed. Sedation vacation not approved by neurosurgery yet 04/28: Remains intubated sedated, ICP well control, CT of the head pending. Status post PEG tube placement, plan is for tracheostomy tomorrow. Increased 3 % saline to 30 mL per hour. 04/29: Ventric raised to 10. Will start SBTs. PEG placed, start TFs. Trach in place. Clean, dry. 04/30: Will lighten sedation and proceed with spontaneous breathing trials when OK with Dr. Meléndez. 05/01: Plans noted. Agree. Will mainatin hypertension and allow patient to slowly diurese extra free water. D/C antibiotics as NG. Check C. diff culture. 05/02: Stopped all antibiotics and antifungals. Will reculture completely and check C.diff PCR ahead of possible BILLING AND INSURANCE COORDINATOR shunt placement thursday. Cardene requirements remain high - will start scheduled labetalol and gentle diuretic. Way ahead free water. Will continue to keep well hydrated and hypertensive for SAH vasospasm prevention. 05/03: Urine insignificant colonization, no invasive infection. Others NGTD. Holding abx. Culture for fevers. Diuresing well while maintaining good perfusion pressure. 05/04: Good peripheral perfusion after aggressive diuresis. If creatinine OK will give one dose tobramycin to sterilize to lightly colonized urine. Hypertensive urgency persists, favorable actually for her disease state. 05/05: Will add daily ceftriaxone for urine for 5 days. This is not a significant infection, but in view of intention to place prosthetic device we will cover. 05/06: Continued swelling left hemisphere. Will concentrate serum more. 05/07: Back from OR on ventilator. BP acceptable. Good gas exchange. 05/08: Low grade fever. Stable hemodynamics, acceptable gas exchange. Objective - Vital Signs Date Time Temp Pulse Resp B/P Pulse Ox O2 Delivery O2 Flow Rate FiO2 05/08/16 08:30 100 40 05/08/16 08:00 95 05/08/16 08:00 100.3 14 151/84 Intake and Output 05/07/16 05/07/16 05/08/16 08:00 16:00 00:00 Intake Total 595 ml 533 ml 603 ml Output Total 507 ml 450 ml 1000 ml Balance 88 ml 83 ml -397 ml Result Diagram: 05/06/16 0540 05/08/16 0700 Other Results Laboratory Tests Test 04/11/16 04/11/16 04/12/16 13:06 20:44 05:58 Blood Gas Puncture Site ART LINE ART LINE ART LINE Blood Gas Patient Temperature 98.6 98.6 98.6 Blood Gas HCO3 20 mmol/L 21 mmol/L 19 mmol/L (22-26) (22-26) (22-26) Blood Gas Base Excess -4.2 mmol/L -3.1 mmol/L -4.9 mmol/L (-2-2) (-2-2) (-2-2) Blood Gas Oxygen Saturation 98 % (90-100) 98 % (90-100) 97 % (90-100) Arterial Blood pH 7.40 7.42 7.42 (7.380-7.420) (7.380-7.420) (7.380-7.420) Arterial Blood Partial 33 mmHg (38-42) 33 mmHg (38-42) 30 mmHg (38-42) Pressure CO2 Arterial Blood Partial 372 mmHg 450 mmHg 135 mmHg Pressure O2 (61-120) (61-120) (61-120) Arterial Blood Oxygen Content 11.0 Vol % 10.2 Vol % 15.4 Vol % (12.0-20.0) (12.0-20.0) (12.0-20.0) Arterial Blood 1.5 % (0-4) 1.4 % (0-4) 1.3 % (0-4) Carboxyhemoglobin Arterial Blood Methemoglobin 1.2 % (0-2) 1.2 % (0-2) 1.1 % (0-2) Blood Gas Hemoglobin 7.3 G/DL 6.5 G/DL 11.2 G/DL (12.0-16.0) (12.0-16.0) (12.0-16.0) Oxygen Delivery Device VENT VENTILATOR VENTILATOR Blood Gas Ventilator Setting PRVC/20RATE/500/5PEE PRVC/AC PRVC/AC Blood Gas Inspired Oxygen 100 % 100 % 40 % Objective Remarks GEN: Middle-aged female, intubated and sedated, critically ill. New craniotomy dressing in place ride side, dry, clean HEENT: Atraumatic. EVD in place. Pupils 2 mm reactive. Tongue swollen. NECK: Supple. No resistance to motion. Trach in place, clean, dry. No drainage. LUNGS: Clear, no wheezes or crackles. Few mobile secretions. HEART: Normal S1-S2, RRR. ABDOMEN: Soft, nontender, nondistended, no guarding, bowel sounds normal. EXTREMITIES: Warm, well-perfused. 2+ peripheral edema, improved. NEUROLOGIC: Pupils 2 mm, nonreactive, No withdrawal to pain. EVD removed, shunt in place. Opens eyes randomly, not to stimulation or voice. A/P Assessment and Plan Acute subarachnoid hemorrhage, left middle cerebral artery aneurysm Large left frontal hemorrhage Intracranial hypertension Acute respiratory failure on mechanical ventilation RLL pneumonia/E Coli in sputum Sepsis Acute encephalopathy Malignant hypertension Status post coiling of MCA aneurysm Severe LV concentric hypertrophy. Probable HOCM Hypokalemia History of hypertension Lactic acidosis PLAN: NEURO: Acute subarachnoid hemorrhage, left middle cerebral artery aneurysm Intracranial hypertension, uncontrolled Acute encephalopathy s/p left decompressive craniotomy 04/25/16 and evacuation of temporal hematoma s/p endovascular coiling of ruptured cerebral aneurysm Patient has suffered significant dominant hemisphere frontal temporal lobe hemorrhage and consequent cerebral injury which reduces likelihood of functional recovery. Family request aggressive care and Dr. Meléndez performed left decompressive craniotomy 04/25/16 and evacuation of temporal hematoma Sedation/analgesia (Propofol, Versed and Fentanyl) to help control ICP. Mild hypervolemia using CVP. No spontaneous awakening trial until approved by N/S. f/u CT head today 04/28/16 Continue Ventricular drain. Keppra, Nimotop. Treat fever aggressively. Nimbex for ICP control-DCd 04/21/16 23% PRN for ICP >20. Keep Na 150-155. 3% gtt at [address] angiogram done 04/14, 04/16/16, 04/22/16 showed status post endovascular repair of left supraclinoid aneurysm, left M1 segment aneurysm stable no vasospasm. Continue with hypervolemia and hypertension for vasospasm prevention. Target SBP 180 for vasospasm prophylaxis. Will start reducing sedation when OK with Neurosurgery. Palliative care following, remains full code CV: Uncontrolled HTN, now permissive Severe LV concentric hypertrophy. Probable HOCM Target SBP 150-190 for vasospasm prophylaxis. Maintain preload, follow CVP, for hypervolemia. Use Levophed/Cardene PRN Continue Nimotop. (Recommendation for consideration of septal ablation on echo, patient is not a candidate for surgical intervention due to devastating neuro injury) Continue heart rate control and antihypertensives. Keep SBP < 190. RESP: Acute respiratory failure HCAP PC/AC vent mode, adjust vent rate to keep EtCO2 28-33. Nebs prn and scheduled. Vent bundle. No vent weaning due to high ICP, severe encephalopathy Tracheostomy 04/29 : Rebollar required for hourly output. Continue diuresis and Na concentration. May need assistance with 3% saline again. GI: Restart tube feeds a.m. Lactulose to 30 ml q8. Dulcolax suppository PRN, Having BM GI -> PEG tube placement HEME: Serial Hgb. Monitor CBC ID: Sepsis HCAP with E Coli, Haemophilus Sputum cx EColi, haemophilus and blood cultures neg to date. On Zosyn 4.5 GM IV q6 04/15/16. Levaquin was added 04/16/16 to cover for Stenotrophomonas -DCd 04/19, restarted again 04/20/16- 04/26/16 Repeat panculture with blood urine and sputum cultures 04/17/16 negative to date CXR bilateral infiltrates, with leukocytosis and brown sputum Resend cultures due to low grade fever and increased WBC 04/20 -NEG to date ENDO: SSI for euglycemia, avoid hypokalemia, hypo Mag PX: SCDs. Protonix. Cleared by Dr. Morris to use Lovenox for chemical DVT prophylaxis on 04/19/16 Overall impression: Presented with severe SAH and left parenchymal bleed from ruptured aneurysm, with cerebral edema. V-P shunt placed and EVD removed. Follow fevers, hold sedation. Jeffrey Chand MD May 08, 2016 10:28
--- NOTE | 2016-05-08 11:04 | RADRPT ---
EXAM DATE/TIME: 05/08/2016 10:16 [facility] COMPARISON: No previous studies available for comparison. INDICATIONS : Evaluate shunt setting. MEDICAL HISTORY : Hypertension. SURGICAL HISTORY : Tubal ligation. ENCOUNTER: Subsequent ACUITY: 1 day PAIN SCORE: Non-responsive. LOCATION: Lateral skull. FINDINGS: Shunt is present. The shunt valve appears to be set to 70-80 mm H2O. Embolic coil material overlies t he skull base. Craniotomy flap and skin yaneth are noted. CONCLUSION: Shunt set to 70-80 mm H2O. Fei Snyder MD on May 08, 2016 at 10:57 Board Certified Radiologist. This report was verified electronically.
[2016-05-08] MEDS ORDERED: SODIUM CHLOR 0.9% 250 ML INJ 250 ML ONE (11:56)
[2016-05-08 12:43] LABS: AUTOMATED NEUTROPHIL # 10.3 TH/MM3 (1.8-7.7); BASOPHIL # 0.1 TH/MM3 (0-0.2); BASOPHIL % 0.6 % (0.0-2.0); EOSINOPHIL # 0.6 TH/MM3 (0-0.4); EOSINOPHIL % 4.3 % (0.0-4.0); HEMATOCRIT 21.1 % (35.0-46.0); LYMPH % 13.4 % (9.0-44.0); LYMPHOCYTE # 1.9 TH/MM3 (1.0-4.8); MEAN CELL VOLUME 77.9 FL (80.0-100.0); MEAN CORPUSCULAR HEMOGLOBIN 25.1 PG (27.0-34.0); MEAN CORPUSCULAR HGB CONC 32.2 % (32.0-36.0); NEUT % 73.7 % (16.0-70.0); PLATELET COUNT 412 TH/MM3 (150-450); RED BLOOD COUNT 2.71 MIL/MM3 (4.00-5.30); RED CELL DISTRIBUTION WIDTH 24.5 % (11.6-17.2)
[2016-05-08 12:49] LABS: HEMO FLAGS AUTO DIFF
[2016-05-08] MEDS: SODIUM CHLORIDE 23.4% INJ 188 MEQ in SODIUM CHLOR 0.9% 1000 ML INJ 1,000 ML IV SCH (12:54)
[2016-05-08 13:19] LABS: SCAN/DIFF AUTO DIFF CONFIRMED
[2016-05-08] MEDS: LABETALOL HCL 100 MG/20 ML VIAL IVS PRN (15:43)
[2016-05-09] VITALS (18 sets, daily range): BP systolic 144–168; BP diastolic 71–83; PULSE 75–91; RESP 14–20; TEMP 98–101; O2SAT 97–100
[2016-05-09] MEDS: METOCLOPRAMIDE HCL SYRUP 10 MG/10 ML UDC PO SCH ×3 (00:17→17:06)
[2016-05-09] MEDS: CHLORHEXIDINE GLUCONATE 2 % 1 PACK (2 CLOTHS) TOP SCH (00:33)
[2016-05-09] MEDS ORDERED: SODIUM CHLOR 0.9% 250 ML INJ 250 ML ONE (00:37)
[2016-05-09] MEDS: niCARdipine INJ 25 MG in SODIUM CHLOR 0.9% 250 ML INJ 250 ML IV SCH ×2 (00:40→03:41)
[2016-05-09] MEDS: ACETAMINOPHEN 325MG/HYDROcodone 7.5MG/15ML UDC PO PRN ×4 (03:23→20:58)
[2016-05-09] MEDS: LABETALOL HCL 100 MG/20 ML VIAL IVS PRN (03:24)
[2016-05-09] MEDS ORDERED: EPINEPHrine HCL (1:10,000) 1 MG/10 ML SYRINGE ONE (03:36)
[2016-05-09] MEDS ORDERED: LIDOCAINE HCL 2% 100 MG/5 ML SYRINGE ONE (03:36)
[2016-05-09] MEDS ORDERED: ATROPINE SULFATE 1 MG/10 ML SYRINGE ONE (03:36)
[2016-05-09 04:34] LABS: AUTOMATED NEUTROPHIL # 13.6 TH/MM3 (1.8-7.7); BASOPHIL # 0.1 TH/MM3 (0-0.2); BASOPHIL % 0.6 % (0.0-2.0); EOSINOPHIL # 0.6 TH/MM3 (0-0.4); EOSINOPHIL % 3.6 % (0.0-4.0); HEMATOCRIT 29.1 % (35.0-46.0); LYMPH % 9.8 % (9.0-44.0); LYMPHOCYTE # 1.7 TH/MM3 (1.0-4.8); MEAN CELL VOLUME 78.7 FL (80.0-100.0); MEAN CORPUSCULAR HEMOGLOBIN 25.4 PG (27.0-34.0); MEAN CORPUSCULAR HGB CONC 32.2 % (32.0-36.0); PLATELET COUNT 433 TH/MM3 (150-450); RED CELL DISTRIBUTION WIDTH 22.2 % (11.6-17.2)
[2016-05-09 04:36] LABS: HEMO FLAGS AUTO DIFF
--- NOTE | 2016-05-09 04:46 | RADRPT ---
EXAM DATE/TIME: 05/09/2016 04:30 [facility] COMPARISON: No previous studies available for comparison. INDICATIONS : Post operative shunt placement; subarachnoid hemorrhage. RADIATION DOSE: 58.35 CTDIvol (mGy) MEDICAL HISTORY : Hypertension. Tubal ligation. SURGICAL HISTORY : Eye surgery. ENCOUNTER: Initial ACUITY: 1 day PAIN SCALE: Non-responsive LOCATION: Bilateral cranial TECHNIQUE: Multiple contiguous axial images were obtained of the head. Using automated exposure control and adj ustment of the mA and/or kV according to patient size, radiation dose was kept as low as reasonably a chievable to obtain optimal diagnostic quality images. FINDINGS: Comparison is May 06. Ventricular size is decreased. Right frontal ventriculostomy tip remains i n the third ventricle. There is no significant midline shift. Trace air in the left frontal horn left lateral ventricle. Partial craniectomy in the left frontal region with persistent edema and swelling through the craniectomy defect but slightly improved from May 06. There is extensive mucosal th ickening and opacification the paranasal sinuses and mastoid air cells. Aneurysm coils left suprasell ar region. CONCLUSION: 1. Right frontal ventriculostomy tube tip in third ventricle with decrease in ventricular size since May 06. Slight decrease in swelling in the left frontal lobe. Craniectomy defect unchanged. Vasc ular coils in left suprasellar region unchanged. Extensive sinus opacification and mastoid air cell o pacification present. Quinn Bateman MD on May 09, 2016 at 4:40 Board Certified Radiologist. This report was verified electronically.
[2016-05-09 05:05] LABS: PLATELET ESTIMATE SMEAR NORMAL (NORMAL); PLATELET MORPHOLOGY NORMAL (NORMAL); SCAN/DIFF AUTO DIFF CONFIRMED
[2016-05-09] MEDS: LABETALOL HCL 200 MG TAB PO SCH ×3 (05:06→20:58)
--- NOTE | 2016-05-09 09:17 | HHI.NSPN ---
(Genna Madrid) History Chief Complaint: status post coil for aneurysm (Genna Madrid) Interval History 04/12/16: Patient had an aneurysm coiled yesterday, intubated and sedated, ICP stable overnight 04/13/16: Increased ICP overnight, improved after a 23% saline bolus 04/14/16: ICP stable overnight 04/15/16: ICP stable, CTA stable no vasospasm 04/16/16: ICP slight increase overnight now stabilized, intubated and sedated 04/17/16: ICP increased yesterday afternoon, repeat CTA and CT stable, no vasospasm, no new hemorrhage, hypothermia overnight 04/21/16: increasing ICP over the weekend, getting 23% every 6 hours PRN. 04/22/16: ICP responding over night to 23% saline, CT and CTA planned this am. Nimbex off since yesterday. 04/23/16: ICP stable overnight, SBP increasing today RN adjusting pressors, HGB improved after 2 units of PRBC, no signs of active bleeding 04/24/16: ICP increased overnight with stimulation but not sustained, low HGB again today receiving PRBC this am 04/25/16: ICP max 38 overnight, currently 10, no family at bedside. 04/26/16: She has ventriculostomy drain in place. She underwent left decompressive craniectomy yesterday 04/[address] Meléndez due to elevated ICPs. Today, ICPs improved, currently 4. 04/27/16: intermittent spikes in ICPs overnight in low 20's controlled with hyperosmotic bolus. Currently 9. well sedated. 04/28/16: ICP stable between 9-14 per RN. EVD draining blood tinged CSF, flap firm non-pulsatile 04/29/16: ICP stable overnight, PEG yesterday, Trach today. 04/30/16: EVD clamped 05/01/16: EVD clamped, ICP max 17, currently 14. 05/02/16: EVD draining, ICP 9, no sedation 05/03/16: Pt with eyes open. Not following commands. Pupils 4mm bilaterally reactive bilaterally. Ventriculostomy in place at [id number]. ICP 8. 9: Pt with eyes open. Not following commands. Pupils 4mm bilaterally reactive bilaterally. Ventriculostomy in place at [id number]. ICP 8. 9: Day 24 after PCOM aneurysm bleed and coiling, Pupils reactives, eyes now open and she is more alert. EVD was clamped this am, remains straw coloured. 05/06/16: eyes open, very mild flexion to deep pain in the upper extremities. 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 No sedation. Mild eye opening with sternal rub. Pupils 4 mm slight bilaterally. Eyes are deviated right and downward. Does not track. No withdrawal x 4. Flap soft. Bilateral Incision clean and dry without signs of infection. SCDs and heel protect boots in place. (Genna Madrid) Lab, Micro, Other Results Last Impressions Head CT 05/09/16 0600 Signed Impressions: Service Date/Time: Monday, May 09, 2016 04:30 - CONCLUSION: 1. Right frontal ventriculostomy tube tip in third ventricle with decrease in ventricular size since May 06. Slight decrease in swelling in the left frontal lobe. Craniectomy defect unchanged. Vascular coils in left suprasellar region unchanged. Extensive sinus opacification and mastoid air cell opacification present. Quinn Bateman MD Skull X-Ray 05/08/16 0000 Signed Impressions: Service Date/Time: May 10:16 - CONCLUSION: Shunt set to 70-80 mm H2O. Fei Snyder MD Head CTA 05/02/16 0600 Signed Impressions: Service Date/Time: Monday, May 02, 2016 04:32 - CONCLUSION: Satisfactory appearance post aneurysm coiling Fei Snyder MD Chest X-Ray 04/30/16 0000 Signed Impressions: Service Date/Time: Saturday, April 30, 2016 19:33 - CONCLUSION: 1. Cardiac enlargement. Bilateral airspace disease. Pleural effusion, left greater than right. Findings similar to April 29 considering differences in technique. Tracheostomy unchanged. Quinn Bateman MD Abdomen/Pelvis CT 04/24/16 1416 Signed Impressions: Service Date/Time: March 14:39 - CONCLUSION: Mild small bowel ileus with scattered air-fluid levels. Bibasilar lung consolidation with associated small effusions. Significant soft tissue fluid accumulation with edematous changes throughout the abdominal wall. Nasogastric tube in good position. Saqib Garcia MD Neck CTA 04/11/16 1151 Signed Impressions: Service Date/Time: Monday, April 11, 2016 12:01 - CONCLUSION: Negative for hemodynamically significant carotid stenosis. Ricardo Castellanos MD FACR Cerebral Arteriogram 04/11/16 0000 Signed Impressions: Service Date/Time: Monday, April 11, 2016 14:18 - CONCLUSION: 1. 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 This is the aneurysm felt responsible for the intracranial hemorrhage. 2. Small 4 mm left M1 segment aneurysm. Attempts at embolizing this aneurysm were unsuccessful due to the broad based nature of the aneurysm. Endovascular repair of this aneurysm could not be performed. Kennedy Thibodeaux Jr., MD Laboratory Tests Test 05/08/16 05/08/16 05/08/16 05/09/16 12:26 14:27 16:50 03:50 White Blood Count 14.0 TH/MM3 17.0 TH/MM3 Red Blood Count 2.71 MIL/MM3 3.70 MIL/MM3 Hemoglobin 6.8 GM/DL 9.4 GM/DL Hematocrit 21.1 % 29.1 % Mean Corpuscular Volume 77.9 FL 78.7 FL Mean Corpuscular Hemoglobin 25.1 PG 25.4 PG Mean Corpuscular Hemoglobin 32.2 % 32.2 % Concent Red Cell Distribution Width 24.5 % 22.2 % Platelet Count 412 TH/MM3 433 TH/MM3 Mean Platelet Volume 7.4 FL 7.8 FL Neutrophils (%) (Auto) 73.7 % 80.0 % Lymphocytes (%) (Auto) 13.4 % 9.8 % Monocytes (%) (Auto) 8.0 % 6.0 % Eosinophils (%) (Auto) 4.3 % 3.6 % Basophils (%) (Auto) 0.6 % 0.6 % Neutrophils # (Auto) 10.3 TH/MM3 13.6 TH/MM3 Lymphocytes # (Auto) 1.9 TH/MM3 1.7 TH/MM3 Monocytes # (Auto) 1.1 TH/MM3 1.0 TH/MM3 Eosinophils # (Auto) 0.6 TH/MM3 0.6 TH/MM3 Basophils # (Auto) 0.1 TH/MM3 0.1 TH/MM3 CBC Comment AUTO DIFF AUTO DIFF Differential Comment AUTO DIFF AUTO DIFF CONFIRMED CONFIRMED Blood Type O POSITIVE Crossmatch Leukocyte-Reduced Red Blood Cells Blood Bank Comment Sodium Level 143 MEQ/L 143 MEQ/L Serum Osmolality 294 MOSM/KG 297 MOSM/KG Platelet Estimate NORMAL Platelet Morphology Comment NORMAL Creatinine 0.41 MG/DL Estimat Glomerular Filtration 200 ML/MIN Rate (Genna Madrid) Medical Decision Making Impression and Plan Impression: 1. Neurologic exam stable following endovascular coiling of ruptured cerebral aneurysm with subsequent left decompressive craniotomy 04/14/16 CT angiogram stable: Status post endovascular repair of left supraclinoid aneurysm. Left M1 segment aneurysm stable 04/16/[address] and CTA stable. No vasospasm, no new hemorrhage. 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 Midline shift has resolved but there is persistent herniation of brain at the craniotomy defect. No new or acute blood demonstrated. Mild to moderate ventriculomegaly, increased. Codman Valve adjusted to [id number]. 05/09/16: stable head CT, improving ventriculomegaly Plan: EEG today. Change 2% to Na+ tablets, transition off Cardene and add PO HTN medications, D/ W Dr. Chand. Continue tube feeds as tolerated. Resume Lovenox. Maintain systolic blood pressure 110-160 range Continue to monitor sodium level, keep 145-150. Burner Technician following for medical management. Keppra for seizure prophylaxis. Protonix for ulcer prophylaxis (Genna Madrid) Attending Statement The exam, history, and the medical decision-making described in the above note were completed with the assistance of the mid-level provider. I reviewed and agree with the findings presented. I attest that I had a [id number] encounter with the patient on the same day, and personally performed and documented my assessment and findings in the medical record. (Ty Miranda MD) Genna Madrdi May 09, 2016 09:17 Ty Miranda MD May 11, 2016 21:19
[2016-05-09] MEDS: levETIRAcetam 500 MG/5 ML UDC TUBE SCH ×2 (09:23→20:59)
[2016-05-09] MEDS: cefTRIAXone INJ 1,000 MG in SODIUM CHLORIDE 0.9% INJ 100 ML IV SCH (09:23)
[2016-05-09] MEDS: ENOXAPARIN SODIUM 30 MG/0.3 ML SYRINGE SQ SCH ×2 (09:23→20:58)
[2016-05-09] MEDS: SODIUM CHLORIDE 0.9% FLUSH 5 ML FLUSH IVF SCH ×2 (09:24→20:59)
--- NOTE | 2016-05-09 09:26 | HHI.CCPN ---
Subjective Remarks/Hospital Course SAH, unresponsive, malignant hypertension - This 46-year-old woman with a longstanding history of hypertension, was found unresponsive at her home and paramedics arrived to find her with shallow breathing and a Angelica coma scale of three. Systolic blood pressure was 290 and under bag mask ventilation. She was brought to the emergency department where she remained unresponsive and required endotracheal intubation, mechanical ventilation. A CT scan of the head showed a large left hemispheric intraparenchymal hemorrhage with subarachnoid blood as well. Subsequent evaluation confirmed a left middle cerebral artery aneurysm which appears to be the culprit lesion. She was brought immediately to the [facility] where we continued Cardene drip infusion for blood pressure control and placed arterial monitoring lines and central venous line. Electrolyte abnormalities were corrected, particularly severe hypokalemia. The ventilator was adjusted to maintain arterial CO2, between 35 and 40. She received Keppra loading intravenously and Nimotop through the nasogastric tube. Usual ICU monitoring was in place and arrangements were made, a ventriculostomy was placed, and transported expeditiously to interventional radiology where attempts will be made to coil the aneurysm. 04/12: Culprit (larger) aneurysm was coiled last evening. ICP acceptable with drainage bloody as expected. Withdraws 4 limbs to pain. 04/13: ICP starting to rise > 20, requiring vent manipulation, increased sedation, analgesia. 04/14: Intermittently ICP spiking >20, RR increased to 18, 50 mg of rocuronium 1. CT angiogram done today to rule out vasospasm 04/15: Remains heavily sedated for ICP control. Overall ICP control improved overnight-remained 12-14. Currently on propofol fentanyl and Versed. CT angiogram done yesterday 04/14/16 showed status post endovascular repair of left supraclinoid aneurysm, left M1 segment aneurysm stable no vasospasm. 04/16: Remains hypoxemic, FiO2 had to be increased to 70%, now down to 60%. Chest x-ray shows increasing right lower lobe infiltrate sputum with gram- negative rods. Blood pressure remains at target 04/17: ICP remains elevated at 22-25. Became hypothermic overnight, likely related to worsening sepsis. Repeat panculture ordered, and vancomycin 04/18: Labile hypertension. Start patient limits expanded to 150-190 systolic. Became more hypoxic now on 90% FiO2. Chest x-ray shows slight increase in right lower lobe infiltrate. Sodium at target 04/19: Remains critically ill with intermittent ICP elevation. ABG shows respiratory alkalosis, minute ventilation reduce which caused ICP to increase further. 3% saline restarted and 23% saline 1 bolus ordered. Chest x-ray shows slight improvement in the right lower lung infiltrate 04/20: ICP elevated to 31, 23% bolus given with improvement to 12-15. Low-grade fever with increase in white count to 16.4. Will send panculture. CTA brain in am 04/21: Remains critically ill with intermittent ICP elevation. ICP controlled with 23% bolus. Keeping sodium 150-160. CT head, CTA 04/22/1604/22: CT of the head shows evolving left frontoparietal hemorrhage with increasing midline shift 1.5 cm left to right. Intermittent ICP elevation was responsive to 23% saline. D/W Neurosurgery. 04/23: Intubated and ICP elevation up to 27, optimized on medical therapy and hyperosmolar therapy. Prognosis very poor according to neurosurgery. Per Dr. Ruiz, patient has suffered significant dominant hemisphere frontal temporal lobe hemorrhage and and consequent cerebral injury which reduces likelihood of functional recovery. Palliative care consulted-will meet with family today 04/24: Overnight high ICP elevations up to 40s. Currently 17-20. Family meeting with palliative care. Optimized on hyperosmolar therapy. Ct head per Dr. Meléndez- large frontal hemorrhage with mass effect, persistent midline shift 04/25: ICP remains high despite maximum hyperosmolar therapy. Family requests aggressive care. Dr. Meléndez is planning for left decompressive craniectomy 04/26: Patient is s/p Left frontotemporal parietal decompressive craniotomy and evacuation of temporal hematoma. ICP better controlled 04-09, remains heavily sedated 04/27: ICP remains better control, 11-12. No acute events overnight. Overnight off Cardene or Levophed. Sedation vacation not approved by neurosurgery yet 04/28: Remains intubated sedated, ICP well control, CT of the head pending. Status post PEG tube placement, plan is for tracheostomy tomorrow. Increased 3 % saline to 30 mL per hour. 04/29: Ventric raised to 10. Will start SBTs. PEG placed, start TFs. Trach in place. Clean, dry. 04/30: Will lighten sedation and proceed with spontaneous breathing trials when OK with Dr. Meléndez. 05/01: Plans noted. Agree. Will mainatin hypertension and allow patient to slowly diurese extra free water. D/C antibiotics as NG. Check C. diff culture. 05/02: Stopped all antibiotics and antifungals. Will reculture completely and check C.diff PCR ahead of possible CLUB WAITER/WAITRESS shunt placement thursday. Cardene requirements remain high - will start scheduled labetalol and gentle diuretic. Way ahead free water. Will continue to keep well hydrated and hypertensive for SAH vasospasm prevention. 05/03: Urine insignificant colonization, no invasive infection. Others NGTD. Holding abx. Culture for fevers. Diuresing well while maintaining good perfusion pressure. 05/04: Good peripheral perfusion after aggressive diuresis. If creatinine OK will give one dose tobramycin to sterilize to lightly colonized urine. Hypertensive urgency persists, favorable actually for her disease state. 05/05: Will add daily ceftriaxone for urine for 5 days. This is not a significant infection, but in view of intention to place prosthetic device we will cover. 05/06: Continued swelling left hemisphere. Will concentrate serum more. 05/07: Back from OR on ventilator. BP acceptable. Good gas exchange. 05/08: Low grade fever. Stable hemodynamics, acceptable gas exchange. 05/09: Will adjust BP meds to normotensive range now. Replace 2% with salt tablets. Follow cultures. Objective - Vital Signs Date Time Temp Pulse Resp B/P Pulse Ox O2 Delivery O2 Flow Rate FiO2 05/09/16 08:38 97 40 05/09/16 06:00 79 05/09/16 04:00 99.2 14 144/71 Intake and Output 05/08/16 05/08/16 05/09/16 08:00 16:00 00:00 Intake Total 581 ml 953 ml 516 ml Output Total 350 ml 750 ml 250 ml Balance 231 ml 203 ml 266 ml Result Diagram: 05/09/16 0350 05/09/16 0350 Other Results Laboratory Tests Test 04/11/16 04/11/16 04/12/16 13:06 20:44 05:58 Blood Gas Puncture Site ART LINE ART LINE ART LINE Blood Gas Patient Temperature 98.6 98.6 98.6 Blood Gas HCO3 20 mmol/L 21 mmol/L 19 mmol/L (22-26) (22-26) (22-26) Blood Gas Base Excess -4.2 mmol/L -3.1 mmol/L -4.9 mmol/L (-2-2) (-2-2) (-2-2) Blood Gas Oxygen Saturation 98 % (90-100) 98 % (90-100) 97 % (90-100) Arterial Blood pH 7.40 7.42 7.42 (7.380-7.420) (7.380-7.420) (7.380-7.420) Arterial Blood Partial 33 mmHg (38-42) 33 mmHg (38-42) 30 mmHg (38-42) Pressure CO2 Arterial Blood Partial 372 mmHg 450 mmHg 135 mmHg Pressure O2 (61-120) (61-120) (61-120) Arterial Blood Oxygen Content 11.0 Vol % 10.2 Vol % 15.4 Vol % (12.0-20.0) (12.0-20.0) (12.0-20.0) Arterial Blood 1.5 % (0-4) 1.4 % (0-4) 1.3 % (0-4) Carboxyhemoglobin Arterial Blood Methemoglobin 1.2 % (0-2) 1.2 % (0-2) 1.1 % (0-2) Blood Gas Hemoglobin 7.3 G/DL 6.5 G/DL 11.2 G/DL (12.0-16.0) (12.0-16.0) (12.0-16.0) Oxygen Delivery Device VENT VENTILATOR VENTILATOR Blood Gas Ventilator Setting PRVC/20RATE/500/5PEE PRVC/AC PRVC/AC Blood Gas Inspired Oxygen 100 % 100 % 40 % Objective Remarks GEN: Middle-aged female, intubated and sedated, critically ill. New craniotomy dressing in place ride side, remains dry, clean HEENT: Atraumatic. EVD in place. Pupils 2 mm reactive. Tongue swollen. NECK: Supple. No resistance to motion. Trach in place, clean, dry. No drainage. LUNGS: Clear, no wheezes or crackles. Few mobile secretions. HEART: Normal S1-S2, RRR. ABDOMEN: Soft, nontender, nondistended, no guarding, bowel sounds normal. EXTREMITIES: Warm, well-perfused. 2+ peripheral edema, improved. NEUROLOGIC: Pupils 2 mm, nonreactive, no withdrawal to pain. EVD removed, shunt in place. Opens eyes randomly, not to stimulation or voice. A/P Assessment and Plan Acute subarachnoid hemorrhage, left middle cerebral artery aneurysm Large left frontal hemorrhage Intracranial hypertension Acute respiratory failure on mechanical ventilation RLL pneumonia/E Coli in sputum Sepsis Acute encephalopathy Malignant hypertension Status post coiling of MCA aneurysm Severe LV concentric hypertrophy. Probable HOCM Hypokalemia History of hypertension Lactic acidosis PLAN: NEURO: Acute subarachnoid hemorrhage, left middle cerebral artery aneurysm Intracranial hypertension, uncontrolled Acute encephalopathy s/p left decompressive craniotomy 04/25/16 and evacuation of temporal hematoma s/p endovascular coiling of ruptured cerebral aneurysm Patient has suffered significant dominant hemisphere frontal temporal lobe hemorrhage and consequent cerebral injury which reduces likelihood of functional recovery. Family request aggressive care and Dr. Meléndez performed left decompressive craniotomy 04/25/16 and evacuation of temporal hematoma V-P shunt 05/07. Sedation/analgesia (Propofol, Versed and Fentanyl) to help control ICP. Mild hypervolemia using CVP. No spontaneous awakening trial until approved by N/S. f/u CT head today 04/28/16 Continue Ventricular drain. Keppra, Nimotop. Treat fever aggressively. Nimbex for ICP control-DCd 04/21/16 23% PRN for ICP >20. Keep Na 150-155. 3% gtt at [address] angiogram done 04/14, 04/16/16, 04/22/16 showed status post endovascular repair of left supraclinoid aneurysm, left M1 segment aneurysm stable no vasospasm. Continue with hypervolemia and hypertension for vasospasm prevention. Target SBP 180 for vasospasm prophylaxis. All sedation ceased 05/07. Palliative care following, remains full code CV: Uncontrolled HTN, now permissive Severe LV concentric hypertrophy. Probable HOCM Target SBP 150-190 for vasospasm prophylaxis. Maintain preload, follow CVP, for hypervolemia. Use Levophed/Cardene PRN Continue Nimotop. (Recommendation for consideration of septal ablation on echo, patient is not a candidate for surgical intervention due to devastating neuro injury) Continue heart rate control and antihypertensives. Keep SBP 110 - 140. RESP: Acute respiratory failure HCAP PC/AC vent mode, adjust vent rate to keep EtCO2 28-33. Nebs prn and scheduled. Vent bundle. No vent weaning due to high ICP, severe encephalopathy Tracheostomy 04/29 : Rebollar required for hourly output. Continue diuresis. GI: Restart tube feeds. Lactulose to 30 ml q8. Dulcolax suppository PRN, Having BM GI -> PEG tube placement HEME: Serial Hgb. Monitor CBC ID: Sepsis HCAP with E Coli, Haemophilus Sputum cx EColi, haemophilus and blood cultures neg to date. On Zosyn 4.5 GM IV q6 04/15/16. Levaquin was added 04/16/16 to cover for Stenotrophomonas -DCd 04/19, restarted again 04/20/16- 04/26/16 Repeat panculture with blood urine and sputum cultures 04/17/16 negative to date CXR bilateral infiltrates, with leukocytosis and brown sputum Resend cultures due to low grade fever and increased WBC 04/20 -NEG to date ENDO: SSI for euglycemia. PX: SCDs. Protonix. Lovenox. Overall impression: Presented with severe SAH and left parenchymal bleed from ruptured aneurysm, with cerebral edema 3 weeks ago. V-P shunt placed and EVD removed. Follow fevers and cultures. No sedation. Jeffrey Chand MD May 09, 2016 09:26
[2016-05-09] MEDS: SODIUM CHLORIDE 1 GRAM TAB PO SCH ×2 (10:11→20:59)
[2016-05-09] MEDS: amLODIPine BESYLATE 5 MG TAB PO SCH (10:11)
[2016-05-09] MEDS: LEVOFLOXACIN 750 MG PREMIX INJ 150 ML IV SCH (10:12)
[2016-05-09] MEDS: POTASSIUM CL 40 MEQ/30 ML LIQ UDC NG SCH (10:12)
[2016-05-09] MEDS: SODIUM CHLORIDE 23.4% INJ 188 MEQ in SODIUM CHLOR 0.9% 1000 ML INJ 1,000 ML IV SCH (10:57)
[2016-05-09] MEDS: FUROSEMIDE 20 MG TAB PO SCH (17:06)
[2016-05-10] VITALS (19 sets, daily range): BP systolic 154–187; BP diastolic 74–95; PULSE 60–87; RESP 14–24; TEMP 98.2–99.4; O2SAT 21–100
[2016-05-10] MEDS: CHLORHEXIDINE GLUCONATE 2 % 1 PACK (2 CLOTHS) TOP SCH
[2016-05-10] MEDS: METOCLOPRAMIDE HCL SYRUP 10 MG/10 ML UDC PO SCH ×3 (00:39→17:40)
[2016-05-10] MEDS: ACETAMINOPHEN 325MG/HYDROcodone 7.5MG/15ML UDC PO PRN ×2 (04:28→18:10)
[2016-05-10] MEDS: LABETALOL HCL 200 MG TAB PO SCH ×3 (05:00→20:17)
[2016-05-10] MEDS: amLODIPine BESYLATE 5 MG TAB PO SCH ×2 (08:15→14:19)
[2016-05-10] MEDS: POTASSIUM CL 40 MEQ/30 ML LIQ UDC NG SCH (08:15)
[2016-05-10] MEDS: cefTRIAXone INJ 1,000 MG in SODIUM CHLORIDE 0.9% INJ 100 ML IV SCH (08:15)
[2016-05-10] MEDS: levETIRAcetam 500 MG/5 ML UDC TUBE SCH ×2 (08:15→20:17)
[2016-05-10] MEDS: FUROSEMIDE 20 MG TAB PO SCH ×2 (08:15→17:40)
[2016-05-10] MEDS: SODIUM CHLORIDE 1 GRAM TAB PO SCH ×2 (08:16→20:16)
[2016-05-10] MEDS: SODIUM CHLORIDE 0.9% FLUSH 5 ML FLUSH IVF SCH ×2 (08:16→20:17)
[2016-05-10] MEDS ORDERED: PANTOPRAZOLE SOD 40 MG DELAYED RELEASE TAB PO SCH (09:00)
--- NOTE | 2016-05-10 09:37 | MG ---
cc: GAVIN VANESSA MD Lab No: 16-Date: 05/09/16 Age: 46 Sex: F Race: DATE OF 1970 A 46-year-old patient, intubated, sedated, history of intracranial hemorrhage. DESCRIPTION Asymmetric left hemispheric slowing 1-2 Hz, delta with superimposed theta activity, 20-50 microvolts. Mild EEG variability reactivity. Limited driving with photic stimulation. Single-lead EKG showing sinus rhythm. INTERPRETATION Moderate encephalopathy with asymmetric left hemispheric slowing. No epileptic activity. Clinical correlation. Gavin Vanessa MD MG/BJF /8:39 AM /9:26 AM
[2016-05-10] MEDS: LANSOPRAZOLE SOLUTAB 30 MG TAB NG SCH (10:13)
[2016-05-10] MEDS: LEVOFLOXACIN 750 MG PREMIX INJ 150 ML IV SCH (10:14)
[2016-05-10] MEDS: ENOXAPARIN SODIUM 30 MG/0.3 ML SYRINGE SQ SCH ×2 (10:14→20:17)
--- NOTE | 2016-05-10 10:54 | HHI.NSPN ---
(Rosa Maria Ellington) Note Status Status: Progress Note (Rosa Maria Ellington) Interval History Interval History 46 y/o female with SAH, s/p coiling of ICA aneurysm. She underwent left decompressive craniectomy 04/[address] Meléndez and placement of ACID CORRECTION HAND shunt on . Her left flap has sunken in. She focuses and tracks. Reported to be flaccid x 4. EEG 05/09/16 neg for seizures. (Rosa Maria Ellington) Labs, Micro, & Vital Signs Results Date Time Temp Pulse Resp B/P Pulse Ox O2 Delivery O2 Flow Rate FiO2 05/10/16 09:36 100 40 05/10/16 08:00 83 05/10/16 08:00 40 05/10/16 08:00 98.8 80 14 158/93 100 05/10/16 06:00 63 05/10/16 04:00 60 05/10/16 04:00 40 05/10/16 04:00 98.4 60 24 187/95 99 05/10/16 03:39 100 40 05/10/16 02:00 66 05/10/16 01:15 100 40 05/10/16 00:00 98.7 76 14 100 158/87 05/10/16 00:00 40 05/10/16 00:00 76 05/09/16 22:00 75 05/09/16 22:00 97 40 05/09/16 20:00 40 05/09/16 20:00 79 05/09/16 20:00 98.0 81 20 168/77 100 05/09/16 18:00 77 05/09/16 16:01 100 40 05/09/16 16:00 98.7 81 16 162/79 100 05/09/16 16:00 40 05/09/16 16:00 81 05/09/16 14:00 83 05/09/16 12:00 101.0 80 14 150/72 100 05/09/16 12:00 80 05/09/16 12:00 40 05/09/16 11:06 100 40 05/10/16 07:00 Intake Total 2069 ml Output Total 750 ml Balance 1319 ml Constitutional Vital Signs Date Time Temp Pulse Resp B/P Pulse Ox O2 Delivery O2 Flow Rate FiO2 05/10/16 09:36 100 40 05/10/16 08:00 83 05/10/16 08:00 40 05/10/16 08:00 98.8 80 14 158/93 100 05/10/16 06:00 63 05/10/16 04:00 60 05/10/16 04:00 40 05/10/16 04:00 98.4 60 24 187/95 99 05/10/16 03:39 100 40 05/10/16 02:00 66 05/10/16 01:15 100 40 05/10/16 00:00 98.7 76 14 100 158/87 05/10/16 00:00 40 05/10/16 00:00 76 05/09/16 22:00 75 05/09/16 22:00 97 40 05/09/16 20:00 40 05/09/16 20:00 79 05/09/16 20:00 98.0 81 20 168/77 100 05/09/16 18:00 77 05/09/16 16:01 100 40 05/09/16 16:00 98.7 81 16 162/79 100 05/09/16 16:00 40 05/09/16 16:00 81 05/09/16 14:00 83 05/09/16 12:00 101.0 80 14 150/72 100 05/09/16 12:00 80 05/09/16 12:00 40 05/09/16 11:06 100 40 05/10/16 07:00 Intake Total 2069 ml Output Total 750 ml Balance 1319 ml (Rosa Maria Ellington) Review of Systems/Exam Exam Ventilated via tracheostomy. Awake, eyes open, slightly tracks. Surgical wound healing well, left flap is sunken. Right ACID CORRECTION HAND shunt palpated with good bubble rebound. Motor: no movements x 4 Plantars silent b/l severe angioedema of the tongue Bilateral podus boots in place in (Rosa Maria Ellington) Medications Current Medications Current Medications Medications (Trade) Dose Ordered Sig/Zhanna Route PRN Reason Start Time Stop Time Status Last Admin Dose Admin IV Flush (NS Flush) 2 ml UNSCH PRN IVF FLUSH AFTER USING IV ACCESS 04/11/16 13:30 IV Flush (NS Flush) 2 ml BID IVF 04/11/16 21:00 05/09/16 20:59 Acetaminophen (Tylenol) 650 mg Q6H PRN PO PAIN 1-10 AND/OR FEVER >101F 04/11/16 13:30 05/04/16 21:37 Lorazepam (Ativan Inj) 2 mg Q1H PRN IV Seizures 04/11/16 13:30 05/07/16 18:32 Ondansetron HCl (Zofran Inj) 4 mg Q6H PRN IV NAUSEA OR VOMITING 04/11/16 13:30 Miscellaneous Information 1 [id number] XX 04/11/16 13:30 Chlorhexidine Gluconate (Chlorhexidine 2% Cloth) Taper DAILY@04 TOP 04/12/16 04:00 04/08/17 03:59 05/05/16 04:49 Chlorhexidine Gluconate 3 pack 3 pack UNSCH PRN [facility] 04/11/16 13:30 Potassium Chloride 100 ml @ 50 mls/hr Q2H PRN IV For Potassium 2.8 - 3.2 mEq/L 04/11/16 13:30 05/01/16 07:07 Potassium Chloride (KCl 20 Meq Premix Inj) 100 ml @ 50 mls/hr Q2H PRN IV For Potassium 2.8 - 3.2 mEq/L 04/11/16 13:30 05/03/16 10:15 Potassium Chloride 40 meq 40 meq UNSCH PRN PO/TUBE For Potassium 3.3 - 3.5 mEq/L 04/11/16 13:30 05/05/16 09:11 Potassium Chloride 100 ml @ 25 mls/hr UNSCH PRN IV For Potassium 3.3 - 3.5 mEq/L 04/11/16 13:30 04/29/16 06:22 Potassium Chloride 100 ml @ 50 mls/hr Q2H PRN IV For Potassium 3.3 - 3.5 mEq/L 04/11/16 13:30 04/24/16 12:45 Magnesium Sulfate/ Sodium Chloride (Magnesium Sulfate Inj/NS Inj) 100 ml @ 50 mls/hr UNSCH PRN IV For Magnesium 0.9 - 1.1 mg/dL 04/11/16 13:30 Magnesium Oxide 800 mg 800 mg UNSCH PRN PO For Magnesium 1.2 - 1.6 mg/dL 04/11/16 13:30 Magnesium Sulfate/ Sodium Chloride (Magnesium Sulfate Inj/NS Inj) 100 ml @ 50 mls/hr UNSCH PRN IV For Magnesium 1.2 - 1.6 mg/dL 04/11/16 13:30 04/29/16 06:39 Potassium Phosphate 2000 mg 2,000 mg Q4H PRN PO For Phosphorus < 2.5 mg/dL 04/11/16 13:30 Sodium Phosphate/ Sodium Chloride (Sodium Phosphate Inj/NS 250 ml Inj) 250 ml @ 42 mls/hr UNSCH PRN IV For Phosphorus < 2.5 mg/dL 04/11/16 13:30 04/14/16 06:47 Potassium Chloride (KCl 40 Meq/30 ml Liq) 40 meq UNSCH PRN PO/TUBE SEE LABEL COMMENTS 04/11/16 13:30 Potassium Phosphate 2000 mg 2,000 mg UNSCH PRN PO/TUBE SEE LABEL COMMENTS 04/11/16 13:30 Potassium Phosphate/Sodium Chloride (Potassium Phosphate Inj/NS 250 ml Inj) 260 ml @ 42 mls/hr UNSCH PRN IV SEE LABEL COMMENTS 04/11/16 13:30 Acetaminophen (Tylenol 650 Mg/ 20 ml Liq) 650 mg Q4H PRN PO Temp > 100. 04/11/16 16:30 05/07/16 01:52 Fentanyl Citrate 100 mcg 100 mcg Q30M PRN IV PUSH Pain 6-10 04/12/16 16:30 05/10/16 09:21 Norepinephrine Bitartrate 4 mg/ Sodium Chloride 254 ml @ 0 mls/hr TITRATE IV 04/12/16 17:45 05/08/16 06:24 Nicardipine HCl/ Sodium Chloride (Cardene Inj/NS 250 ml Inj) 260 ml @ 0 mls/hr TITRATE IV 04/14/16 17:45 05/09/16 03:41 Labetalol HCl (Trandate Inj) 20 mg Q4H PRN IVS SBP > 160 04/25/16 00:30 05/09/16 03:24 Levetriacetam (Keppra Liq) 500 mg Q12HR TUBE 05/01/16 21:00 05/10/16 08:15 Acetaminophen/ Hydrocodone Bitart (Hycet 325-7.5 Mg Liq) 15 ml Q6H PRN PO pain, tachycardia 05/01/16 12:30 05/10/16 04:28 Metoclopramide HCl 10 mg 10 mg Q8H PO 05/04/16 09:00 05/10/16 08:15 Levofloxacin/ Dextrose 150 ml @ 100 mls/hr Q24H IV 05/06/16 11:00 05/10/16 10:14 Ceftriaxone Sodium/Sodium Chloride (Rocephin Inj/NS Inj) 100 ml @ 200 mls/hr Q24H IV 05/07/16 09:00 05/10/16 08:15 Enoxaparin Sodium (Lovenox Inj) 30 mg Q12H SQ 05/08/16 10:00 05/10/16 10:14 Labetalol HCl (Trandate) 400 mg Q8H PO 05/09/16 14:00 05/10/16 05:00 Amlodipine Besylate (Norvasc) 5 mg DAILY PO 05/09/16 10:00 05/10/16 08:15 Furosemide (Lasix) 20 mg BID@09,18 PO 05/09/16 18:00 05/10/16 08:15 Potassium Chloride (KCl 40 Meq/30 ml Liq) 40 meq DAILY NG 05/09/16 10:00 05/10/16 08:15 Sodium Chloride (Sodium Chloride) 1 gm BID PO 05/09/16 10:00 05/10/16 08:16 Lansoprazole (Prevacid Odt) 30 mg DAILY NG 05/10/16 10:00 05/10/16 10:13 (Rosa Maria Ellington) Medical Decision Making MDM Remarks 46 y/o female with 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 I reviewed and agree with the findings presented. I attest that I had a [id number] encounter with the patient on the same day, and personally performed and documented my assessment and findings in the medical record. (Ty Miranda MD) Rosa Maria Ellington May 10, 2016 10:54 Ty Miranda MD May 10, 2016 13:54
[2016-05-10] MEDS: niCARdipine INJ 25 MG in SODIUM CHLOR 0.9% 250 ML INJ 250 ML IV SCH (12:16)
--- NOTE | 2016-05-10 13:44 | HHI.CCPN ---
Subjective Remarks/Hospital Course SAH, unresponsive, malignant hypertension - This 46-year-old woman with a longstanding history of hypertension, was found unresponsive at her home and paramedics arrived to find her with shallow breathing and a Angelica coma scale of three. Systolic blood pressure was 290 and under bag mask ventilation. She was brought to the emergency department where she remained unresponsive and required endotracheal intubation, mechanical ventilation. A CT scan of the head showed a large left hemispheric intraparenchymal hemorrhage with subarachnoid blood as well. Subsequent evaluation confirmed a left middle cerebral artery aneurysm which appears to be the culprit lesion. She was brought immediately to the [facility] where we continued Cardene drip infusion for blood pressure control and placed arterial monitoring lines and central venous line. Electrolyte abnormalities were corrected, particularly severe hypokalemia. The ventilator was adjusted to maintain arterial CO2, between 35 and 40. She received Keppra loading intravenously and Nimotop through the nasogastric tube. Usual ICU monitoring was in place and arrangements were made, a ventriculostomy was placed, and transported expeditiously to interventional radiology where attempts will be made to coil the aneurysm. 04/12: Culprit (larger) aneurysm was coiled last evening. ICP acceptable with drainage bloody as expected. Withdraws 4 limbs to pain. 04/13: ICP starting to rise > 20, requiring vent manipulation, increased sedation, analgesia. 04/14: Intermittently ICP spiking >20, RR increased to 18, 50 mg of rocuronium 1. CT angiogram done today to rule out vasospasm 04/15: Remains heavily sedated for ICP control. Overall ICP control improved overnight-remained 12-14. Currently on propofol fentanyl and Versed. CT angiogram done yesterday 04/14/16 showed status post endovascular repair of left supraclinoid aneurysm, left M1 segment aneurysm stable no vasospasm. 04/16: Remains hypoxemic, FiO2 had to be increased to 70%, now down to 60%. Chest x-ray shows increasing right lower lobe infiltrate sputum with gram- negative rods. Blood pressure remains at target 04/17: ICP remains elevated at 22-25. Became hypothermic overnight, likely related to worsening sepsis. Repeat panculture ordered, and vancomycin 04/18: Labile hypertension. Start patient limits expanded to 150-190 systolic. Became more hypoxic now on 90% FiO2. Chest x-ray shows slight increase in right lower lobe infiltrate. Sodium at target 04/19: Remains critically ill with intermittent ICP elevation. ABG shows respiratory alkalosis, minute ventilation reduce which caused ICP to increase further. 3% saline restarted and 23% saline 1 bolus ordered. Chest x-ray shows slight improvement in the right lower lung infiltrate 04/20: ICP elevated to 31, 23% bolus given with improvement to 12-15. Low-grade fever with increase in white count to 16.4. Will send panculture. CTA brain in am 04/21: Remains critically ill with intermittent ICP elevation. ICP controlled with 23% bolus. Keeping sodium 150-160. CT head, CTA 04/22/1604/22: CT of the head shows evolving left frontoparietal hemorrhage with increasing midline shift 1.5 cm left to right. Intermittent ICP elevation was responsive to 23% saline. D/W Neurosurgery. 04/23: Intubated and ICP elevation up to 27, optimized on medical therapy and hyperosmolar therapy. Prognosis very poor according to neurosurgery. Per Dr. Ruiz, patient has suffered significant dominant hemisphere frontal temporal lobe hemorrhage and and consequent cerebral injury which reduces likelihood of functional recovery. Palliative care consulted-will meet with family today 04/24: Overnight high ICP elevations up to 40s. Currently 17-20. Family meeting with palliative care. Optimized on hyperosmolar therapy. Ct head per Dr. Meléndez- large frontal hemorrhage with mass effect, persistent midline shift 04/25: ICP remains high despite maximum hyperosmolar therapy. Family requests aggressive care. Dr. Meléndez is planning for left decompressive craniectomy 04/26: Patient is s/p Left frontotemporal parietal decompressive craniotomy and evacuation of temporal hematoma. ICP better controlled 04-09, remains heavily sedated 04/27: ICP remains better control, 11-12. No acute events overnight. Overnight off Cardene or Levophed. Sedation vacation not approved by neurosurgery yet 04/28: Remains intubated sedated, ICP well control, CT of the head pending. Status post PEG tube placement, plan is for tracheostomy tomorrow. Increased 3 % saline to 30 mL per hour. 04/29: Ventric raised to 10. Will start SBTs. PEG placed, start TFs. Trach in place. Clean, dry. 04/30: Will lighten sedation and proceed with spontaneous breathing trials when OK with Dr. Meléndez. 05/01: Plans noted. Agree. Will mainatin hypertension and allow patient to slowly diurese extra free water. D/C antibiotics as NG. Check C. diff culture. 05/02: Stopped all antibiotics and antifungals. Will reculture completely and check C.diff PCR ahead of possible [employer] shunt placement thursday. Cardene requirements remain high - will start scheduled labetalol and gentle diuretic. Way ahead free water. Will continue to keep well hydrated and hypertensive for SAH vasospasm prevention. 05/03: Urine insignificant colonization, no invasive infection. Others NGTD. Holding abx. Culture for fevers. Diuresing well while maintaining good perfusion pressure. 05/04: Good peripheral perfusion after aggressive diuresis. If creatinine OK will give one dose tobramycin to sterilize to lightly colonized urine. Hypertensive urgency persists, favorable actually for her disease state. 05/05: Will add daily ceftriaxone for urine for 5 days. This is not a significant infection, but in view of intention to place prosthetic device we will cover. 05/06: Continued swelling left hemisphere. Will concentrate serum more. 05/07: Back from OR on ventilator. BP acceptable. Good gas exchange. 05/08: Low grade fever. Stable hemodynamics, acceptable gas exchange. 05/09: Will adjust BP meds to normotensive range now. Replace 2% with salt tablets. Follow cultures. 05/10: Still requiring cardene. Will start norvasc and catapres po scheduled. Objective - Vital Signs Date Time Temp Pulse Resp B/P Pulse Ox O2 Delivery O2 Flow Rate FiO2 05/10/16 12:15 99 40 05/10/16 12:00 98.8 82 14 155/74 Intake and Output 05/09/16 05/09/16 05/10/16 08:00 16:00 00:00 Intake Total 833 ml 1099 ml 448 ml Output Total 300 ml 200 ml 300 ml Balance 533 ml 899 ml 148 ml Result Diagram: 05/09/16 0350 05/10/16 0355 Other Results Laboratory Tests Test 04/11/16 04/11/16 04/12/16 13:06 20:44 05:58 Blood Gas Puncture Site ART LINE ART LINE ART LINE Blood Gas Patient Temperature 98.6 98.6 98.6 Blood Gas HCO3 20 mmol/L 21 mmol/L 19 mmol/L (22-26) (22-26) (22-26) Blood Gas Base Excess -4.2 mmol/L -3.1 mmol/L -4.9 mmol/L (-2-2) (-2-2) (-2-2) Blood Gas Oxygen Saturation 98 % (90-100) 98 % (90-100) 97 % (90-100) Arterial Blood pH 7.40 7.42 7.42 (7.380-7.420) (7.380-7.420) (7.380-7.420) Arterial Blood Partial 33 mmHg (38-42) 33 mmHg (38-42) 30 mmHg (38-42) Pressure CO2 Arterial Blood Partial 372 mmHg 450 mmHg 135 mmHg Pressure O2 (61-120) (61-120) (61-120) Arterial Blood Oxygen Content 11.0 Vol % 10.2 Vol % 15.4 Vol % (12.0-20.0) (12.0-20.0) (12.0-20.0) Arterial Blood 1.5 % (0-4) 1.4 % (0-4) 1.3 % (0-4) Carboxyhemoglobin Arterial Blood Methemoglobin 1.2 % (0-2) 1.2 % (0-2) 1.1 % (0-2) Blood Gas Hemoglobin 7.3 G/DL 6.5 G/DL 11.2 G/DL (12.0-16.0) (12.0-16.0) (12.0-16.0) Oxygen Delivery Device VENT VENTILATOR VENTILATOR Blood Gas Ventilator Setting PRVC/20RATE/500/5PEE PRVC/AC PRVC/AC Blood Gas Inspired Oxygen 100 % 100 % 40 % Objective Remarks GEN: Middle-aged female, intubated and sedated, critically ill. Craniotomy dressing ride side, remains dry, clean HEENT: Atraumatic. Pupils 2 mm reactive. Tongue swollen still. NECK: Supple. No resistance to motion. Trach in place, clean, dry. No drainage. LUNGS: Clear, no wheezes or crackles. HEART: Normal S1-S2, RRR. ABDOMEN: Soft, nontender, nondistended, no guarding, bowel sounds normal. EXTREMITIES: Warm, well-perfused. 2+ peripheral edema, improved. NEUROLOGIC: Pupils 2 mm, nonreactive, no withdrawal to pain. Opens eyes randomly , not to stimulation or voice. A/P Assessment and Plan Acute subarachnoid hemorrhage, left middle cerebral artery aneurysm Large left frontal hemorrhage Intracranial hypertension Acute respiratory failure on mechanical ventilation RLL pneumonia/E Coli in sputum Sepsis Acute encephalopathy Malignant hypertension Status post coiling of MCA aneurysm Severe LV concentric hypertrophy. Probable HOCM Hypokalemia History of hypertension Lactic acidosis PLAN: NEURO: Acute subarachnoid hemorrhage, left middle cerebral artery aneurysm Intracranial hypertension, uncontrolled Acute encephalopathy s/p left decompressive craniotomy 04/25/16 and evacuation of temporal hematoma s/p endovascular coiling of ruptured cerebral aneurysm Patient has suffered significant dominant hemisphere frontal temporal lobe hemorrhage and consequent cerebral injury which reduces likelihood of functional recovery. Family request aggressive care and Dr. Meléndez performed left decompressive craniotomy 04/25/16 and evacuation of temporal hematoma V-P shunt 05/07. Sedation/analgesia (Propofol, Versed and Fentanyl) to help control ICP. Mild hypervolemia using CVP. No spontaneous awakening trial until approved by N/S. f/u CT head today 04/28/16 Continue Ventricular drain. Keppra, Nimotop. Treat fever aggressively. Nimbex for ICP control-DCd 04/21/16 23% PRN for ICP >20. Keep Na 150-155. 3% gtt at [address] angiogram done 04/14, 04/16/16, 04/22/16 showed status post endovascular repair of left supraclinoid aneurysm, left M1 segment aneurysm stable no vasospasm. Continue with hypervolemia and hypertension for vasospasm prevention. Target SBP 180 for vasospasm prophylaxis. All sedation ceased 05/07. Palliative care following, remains full code CV: Uncontrolled HTN, now permissive Severe LV concentric hypertrophy. Probable HOCM Target SBP 150-190 for vasospasm prophylaxis. Maintain preload, follow CVP, for hypervolemia. Use Levophed/Cardene PRN Continue Nimotop. (Recommendation for consideration of septal ablation on echo, patient is not a candidate for surgical intervention due to devastating neuro injury) Continue heart rate control and antihypertensives. Keep SBP 110 - 140. RESP: Acute respiratory failure HCAP PC/AC vent mode, adjust vent rate to keep EtCO2 28-33. Nebs prn and scheduled. Vent bundle. No vent weaning due to high ICP, severe encephalopathy Tracheostomy 04/29 : Rebollar required for hourly output. Continue diuresis. GI: Restart tube feeds. Lactulose to 30 ml q8. Dulcolax suppository PRN, Having BM GI -> PEG tube placement HEME: Serial Hgb. Monitor CBC ID: Sepsis HCAP with E Coli, Haemophilus Sputum cx EColi, haemophilus and blood cultures neg to date. On Zosyn 4.5 GM IV q6 04/15/16. Levaquin was added 04/16/16 to cover for Stenotrophomonas -DCd 04/19, restarted again 04/20/16- 04/26/16 Repeat panculture with blood urine and sputum cultures 04/17/16 negative to date CXR bilateral infiltrates, with leukocytosis and brown sputum Resend cultures due to low grade fever and increased WBC 04/20 -NEG to date ENDO: SSI for euglycemia. PX: SCDs. Protonix. Lovenox. Overall impression: Presented with severe SAH and left parenchymal bleed from ruptured aneurysm, with cerebral edema 3 weeks ago. V-P shunt placed and EVD removed. Follow fevers and cultures. No sedation. Add norvasc and catapres; eventually convert to an outpatient HTN regimen. Jeffrey Chand MD May 10, 2016 13:44
[2016-05-10] MEDS: cloNIDine HCL 0.2 MG TAB PO SCH ×2 (15:39→22:02)
[2016-05-11] VITALS (20 sets, daily range): BP systolic 149–175; BP diastolic 68–90; PULSE 60–89; RESP 14–26; TEMP 97.9–99.1; O2SAT 98–100
[2016-05-11] MEDS: ACETAMINOPHEN 325MG/HYDROcodone 7.5MG/15ML UDC PO PRN ×4 (00:07→18:12)
[2016-05-11] MEDS: METOCLOPRAMIDE HCL SYRUP 10 MG/10 ML UDC PO SCH ×3 (00:07→18:11)
[2016-05-11] MEDS: CHLORHEXIDINE GLUCONATE 2 % 1 PACK (2 CLOTHS) TOP SCH (03:09)
[2016-05-11 03:46] LABS: BASOPHIL # 0.1 TH/MM3 (0-0.2); BASOPHIL % 0.5 % (0.0-2.0); EOSINOPHIL # 0.6 TH/MM3 (0-0.4); EOSINOPHIL % 3.8 % (0.0-4.0); HEMATOCRIT 26.7 % (35.0-46.0); LYMPH % 11.8 % (9.0-44.0); LYMPHOCYTE # 1.9 TH/MM3 (1.0-4.8); MEAN CELL VOLUME 78.9 FL (80.0-100.0); MEAN CORPUSCULAR HGB CONC 32.9 % (32.0-36.0); MONO % 7.6 % (0.0-8.0); NEUT % 76.3 % (16.0-70.0); PLATELET COUNT 402 TH/MM3 (150-450); RED BLOOD COUNT 3.39 MIL/MM3 (4.00-5.30); RED CELL DISTRIBUTION WIDTH 21.9 % (11.6-17.2); WHITE BLOOD COUNT 15.8 TH/MM3 (4.0-11.0)
[2016-05-11 03:54] LABS: HEMO FLAGS AUTO DIFF
[2016-05-11 04:08] LABS: BICARBONATE 27.2 MEQ/L (21.0-32.0); MAGNESIUM 1.6 MG/DL (1.5-2.5); POTASSIUM 3.5 MEQ/L (3.5-5.1)
[2016-05-11 05:03] LABS: KERATOCYTES OCC (NORMAL); PLATELET ESTIMATE SMEAR NORMAL (NORMAL); PLATELET MORPHOLOGY NORMAL (NORMAL); SCAN/DIFF AUTO DIFF CONFIRMED
[2016-05-11] MEDS: cloNIDine HCL 0.2 MG TAB PO SCH ×3 (05:05→21:32)
[2016-05-11] MEDS: LABETALOL HCL 200 MG TAB PO SCH ×3 (05:05→23:26)
[2016-05-11] MEDS: levETIRAcetam 500 MG/5 ML UDC TUBE SCH ×2 (08:36→21:32)
[2016-05-11] MEDS: SODIUM CHLORIDE 1 GRAM TAB PO SCH ×2 (08:36→21:32)
[2016-05-11] MEDS: POTASSIUM CL 40 MEQ/30 ML LIQ UDC NG SCH (08:36)
[2016-05-11] MEDS: ENOXAPARIN SODIUM 30 MG/0.3 ML SYRINGE SQ SCH ×2 (08:36→21:32)
[2016-05-11] MEDS: FUROSEMIDE 20 MG TAB PO SCH ×2 (08:37→18:12)
[2016-05-11] MEDS: SODIUM CHLORIDE 0.9% FLUSH 5 ML FLUSH IVF SCH ×2 (08:37→21:32)
[2016-05-11] MEDS: amLODIPine BESYLATE 5 MG TAB PO SCH ×3 (08:37→21:32)
[2016-05-11] MEDS: cefTRIAXone INJ 1,000 MG in SODIUM CHLORIDE 0.9% INJ 100 ML IV SCH (08:37)
[2016-05-11] MEDS: LANSOPRAZOLE SOLUTAB 30 MG TAB NG SCH (08:37)
[2016-05-11] MEDS: LEVOFLOXACIN 750 MG PREMIX INJ 150 ML IV SCH (11:15)
--- NOTE | 2016-05-11 11:30 | HHI.NSPN ---
(Rosa Maria Ellington) Note Status Status: Progress Note (Rosa Maria Ellington) Interval History Interval History 46 y/o female with SAH, s/p coiling of ICA aneurysm. She underwent left decompressive craniectomy 04/[address] Meléndez and placement of SOFTWARE CLERK shunt on . Her left flap has sunken in. She focuses and tracks. Reported to be flaccid x 4. EEG 05/09/16 neg for seizures. 05/11: no changes overnight (Rosa Maria Ellington) Labs, Micro, & Vital Signs Results Date Time Temp Pulse Resp B/P Pulse Ox O2 Delivery O2 Flow Rate FiO2 05/11/16 10:11 100 40 05/11/16 10:00 70 05/11/16 08:18 100 40 05/11/16 08:00 60 05/11/16 08:00 98.3 60 14 164/85 100 05/11/16 08:00 40 05/11/16 06:00 61 05/11/16 04:34 98 40 05/11/16 04:00 65 05/11/16 04:00 40 05/11/16 04:00 97.9 65 14 170/90 98 05/11/16 02:00 89 05/11/16 01:25 100 40 05/11/16 00:00 40 05/11/16 00:00 67 05/11/16 00:00 98.2 67 14 153/68 100 05/10/16 22:06 100 40 05/10/16 22:00 74 05/10/16 20:00 84 05/10/16 20:00 99.4 83 20 154/80 100 05/10/16 20:00 40 05/10/16 19:39 100 40 05/10/16 18:00 66 05/10/16 16:00 40 05/10/16 16:00 87 05/10/16 16:00 98.2 87 14 158/76 21 05/10/16 15:43 100 40 05/10/16 14:00 70 05/10/16 12:15 99 40 05/10/16 12:00 98.8 82 14 155/74 100 05/10/16 12:00 82 05/10/16 12:00 40 05/11/16 07:00 Intake Total 2137 ml Output Total 3300 ml Balance -1163 ml Constitutional Vital Signs Date Time Temp Pulse Resp B/P Pulse Ox O2 Delivery O2 Flow Rate FiO2 05/11/16 10:11 100 40 05/11/16 10:00 70 05/11/16 08:18 100 40 05/11/16 08:00 60 05/11/16 08:00 98.3 60 14 164/85 100 05/11/16 08:00 40 05/11/16 06:00 61 05/11/16 04:34 98 40 05/11/16 04:00 65 05/11/16 04:00 40 05/11/16 04:00 97.9 65 14 170/90 98 05/11/16 02:00 89 05/11/16 01:25 100 40 05/11/16 00:00 40 05/11/16 00:00 67 05/11/16 00:00 98.2 67 14 153/68 100 05/10/16 22:06 100 40 05/10/16 22:00 74 05/10/16 20:00 84 05/10/16 20:00 99.4 83 20 154/80 100 05/10/16 20:00 40 05/10/16 19:39 100 40 05/10/16 18:00 66 05/10/16 16:00 40 05/10/16 16:00 87 05/10/16 16:00 98.2 87 14 158/76 21 05/10/16 15:43 100 40 05/10/16 14:00 70 05/10/16 12:15 99 40 05/10/16 12:00 98.8 82 14 155/74 100 05/10/16 12:00 82 05/10/16 12:00 40 05/11/16 07:00 Intake Total 2137 ml Output Total 3300 ml Balance -1163 ml (Rosa Maria Ellington) Review of Systems/Exam Exam Ventilated via tracheostomy. Awake, eyes open, slightly tracks. does not follow commands. Surgical wound healing well, left flap is sunken. Right SOFTWARE CLERK shunt palpated with good bubble rebound. Motor: no movements or withdrawals x 4 extremities Plantars silent b/l severe angioedema of the tongue Bilateral podus boots in place in (Rosa Maria Ellington) Medications Current Medications Current Medications Medications (Trade) Dose Ordered Sig/Zhanna Route PRN Reason Start Time Stop Time Status Last Admin Dose Admin IV Flush (NS Flush) 2 ml UNSCH PRN IVF FLUSH AFTER USING IV ACCESS 04/11/16 13:30 IV Flush (NS Flush) 2 ml BID IVF 04/11/16 21:00 05/11/16 08:37 Acetaminophen (Tylenol) 650 mg Q6H PRN PO PAIN 1-10 AND/OR FEVER >101F 04/11/16 13:30 05/04/16 21:37 Lorazepam (Ativan Inj) 2 mg Q1H PRN IV Seizures 04/11/16 13:30 05/07/16 18:32 Ondansetron HCl (Zofran Inj) 4 mg Q6H PRN IV NAUSEA OR VOMITING 04/11/16 13:30 Miscellaneous Information 1 [id number] XX 04/11/16 13:30 Chlorhexidine Gluconate (Chlorhexidine 2% Cloth) Taper DAILY@04 TOP 04/12/16 04:00 04/08/17 03:59 05/05/16 04:49 Chlorhexidine Gluconate 3 pack 3 pack UNSCH PRN TOP HYGIENIC CARE 04/11/16 13:30 Potassium Chloride 100 ml @ 50 mls/hr Q2H PRN IV For Potassium 2.8 - 3.2 mEq/L 04/11/16 13:30 05/01/16 07:07 Potassium Chloride (KCl 20 Meq Premix Inj) 100 ml @ 50 mls/hr Q2H PRN IV For Potassium 2.8 - 3.2 mEq/L 04/11/16 13:30 05/03/16 10:15 Potassium Chloride 40 meq 40 meq UNSCH PRN PO/TUBE For Potassium 3.3 - 3.5 mEq/L 04/11/16 13:30 05/05/16 09:11 Potassium Chloride 100 ml @ 25 mls/hr UNSCH PRN IV For Potassium 3.3 - 3.5 mEq/L 04/11/16 13:30 04/29/16 06:22 Potassium Chloride 100 ml @ 50 mls/hr Q2H PRN IV For Potassium 3.3 - 3.5 mEq/L 04/11/16 13:30 04/24/16 12:45 Magnesium Sulfate/ Sodium Chloride (Magnesium Sulfate Inj/NS Inj) 100 ml @ 50 mls/hr UNSCH PRN IV For Magnesium 0.9 - 1.1 mg/dL 04/11/16 13:30 Magnesium Oxide 800 mg 800 mg UNSCH PRN PO For Magnesium 1.2 - 1.6 mg/dL 04/11/16 13:30 Magnesium Sulfate/ Sodium Chloride (Magnesium Sulfate Inj/NS Inj) 100 ml @ 50 mls/hr UNSCH PRN IV For Magnesium 1.2 - 1.6 mg/dL 04/11/16 13:30 04/29/16 06:39 Potassium Phosphate 2000 mg 2,000 mg Q4H PRN PO For Phosphorus < 2.5 mg/dL 04/11/16 13:30 Sodium Phosphate/ Sodium Chloride (Sodium Phosphate Inj/NS 250 ml Inj) 250 ml @ 42 mls/hr UNSCH PRN IV For Phosphorus < 2.5 mg/dL 04/11/16 13:30 04/14/16 06:47 Potassium Chloride (KCl 40 Meq/30 ml Liq) 40 meq UNSCH PRN PO/TUBE SEE LABEL COMMENTS 04/11/16 13:30 Potassium Phosphate 2000 mg 2,000 mg UNSCH PRN PO/TUBE SEE LABEL COMMENTS 04/11/16 13:30 Potassium Phosphate/Sodium Chloride (Potassium Phosphate Inj/NS 250 ml Inj) 260 ml @ 42 mls/hr UNSCH PRN IV SEE LABEL COMMENTS 04/11/16 13:30 Acetaminophen (Tylenol 650 Mg/ 20 ml Liq) 650 mg Q4H PRN PO Temp > 100. 04/11/16 16:30 05/07/16 01:52 Fentanyl Citrate 100 mcg 100 mcg Q30M PRN IV PUSH Pain 6-10 04/12/16 16:30 05/11/16 10:56 Norepinephrine Bitartrate 4 mg/ Sodium Chloride 254 ml @ 0 mls/hr TITRATE IV 04/12/16 17:45 05/08/16 06:24 Nicardipine HCl/ Sodium Chloride (Cardene Inj/NS 250 ml Inj) 260 ml @ 0 mls/hr TITRATE IV 04/14/16 17:45 05/10/16 12:16 Labetalol HCl (Trandate Inj) 20 mg Q4H PRN IVS SBP > 160 04/25/16 00:30 05/09/16 03:24 Levetriacetam (Keppra Liq) 500 mg Q12HR TUBE 05/01/16 21:00 05/11/16 08:36 Acetaminophen/ Hydrocodone Bitart (Hycet 325-7.5 Mg Liq) 15 ml Q6H PRN PO pain, tachycardia 05/01/16 12:30 05/11/16 06:07 Metoclopramide HCl 10 mg 10 mg Q8H PO 05/04/16 09:00 05/11/16 08:36 Levofloxacin/ Dextrose (Levaquin 750 Mg Premix Inj) 150 ml @ 100 mls/hr Q24H IV 05/06/16 11:00 05/11/16 11:15 Enoxaparin Sodium (Lovenox Inj) 30 mg Q12H SQ 05/08/16 10:00 05/11/16 08:36 Labetalol HCl (Trandate) 400 mg Q8H PO 05/09/16 14:00 05/11/16 05:05 Amlodipine Besylate (Norvasc) 5 mg DAILY PO 05/09/16 10:00 05/11/16 08:37 Furosemide (Lasix) 20 mg BID@09,18 PO 05/09/16 18:00 05/11/16 08:37 Potassium Chloride (KCl 40 Meq/30 ml Liq) 40 meq DAILY NG 05/09/16 10:00 05/11/16 08:36 Sodium Chloride (Sodium Chloride) 1 gm BID PO 05/09/16 10:00 05/11/16 08:36 Lansoprazole (Prevacid Odt) 30 mg DAILY NG 05/10/16 10:00 05/11/16 08:37 Amlodipine Besylate (Norvasc) 5 mg DAILY PO 05/10/16 13:45 05/10/16 14:19 Clonidine (Catapres) 0.2 mg Q8HR PO 05/10/16 14:00 05/11/16 05:05 (Rosa Maria Ellington) Medical Decision Making MDM Remarks 46 y/o female with SAH from ruptured ICA aneurysm s/p coiling left MCA aneurysm s/p decompressive left craniectomy s/p placement of SOFTWARE CLERK shunt 05/07/16 (Rosa Maria Ellington) Plan Plan Remarks cont current care cont serial neuro checks every hour dw nursing (Rosa Maria Ellington) Plan Remarks The exam, history, and the medical decision-making described in the above note were completed with the assistance of the mid-level provider. I reviewed and agree with the findings presented. I attest that I had a [id number] encounter with the patient on the same day, and personally performed and documented my assessment and findings in the medical record. (Ty Miranda MD) Rosa Maria Ellington May 11, 2016 11:30 Ty Miranda MD May 11, 2016 21:46
--- NOTE | 2016-05-11 15:18 | HHI.CCPN ---
Subjective Remarks/Hospital Course SAH, unresponsive, malignant hypertension - This 46-year-old woman with a longstanding history of hypertension, was found unresponsive at her home and paramedics arrived to find her with shallow breathing and a Angelica coma scale of three. Systolic blood pressure was 290 and under bag mask ventilation. She was brought to the emergency department where she remained unresponsive and required endotracheal intubation, mechanical ventilation. A CT scan of the head showed a large left hemispheric intraparenchymal hemorrhage with subarachnoid blood as well. Subsequent evaluation confirmed a left middle cerebral artery aneurysm which appears to be the culprit lesion. She was brought immediately to the [facility] where we continued Cardene drip infusion for blood pressure control and placed arterial monitoring lines and central venous line. Electrolyte abnormalities were corrected, particularly severe hypokalemia. The ventilator was adjusted to maintain arterial CO2, between 35 and 40. She received Keppra loading intravenously and Nimotop through the nasogastric tube. Usual ICU monitoring was in place and arrangements were made, a ventriculostomy was placed, and transported expeditiously to interventional radiology where attempts will be made to coil the aneurysm. 04/12: Culprit (larger) aneurysm was coiled last evening. ICP acceptable with drainage bloody as expected. Withdraws 4 limbs to pain. 04/13: ICP starting to rise > 20, requiring vent manipulation, increased sedation, analgesia. 04/14: Intermittently ICP spiking >20, RR increased to 18, 50 mg of rocuronium 1. CT angiogram done today to rule out vasospasm 04/15: Remains heavily sedated for ICP control. Overall ICP control improved overnight-remained 12-14. Currently on propofol fentanyl and Versed. CT angiogram done yesterday 04/14/16 showed status post endovascular repair of left supraclinoid aneurysm, left M1 segment aneurysm stable no vasospasm. 04/16: Remains hypoxemic, FiO2 had to be increased to 70%, now down to 60%. Chest x-ray shows increasing right lower lobe infiltrate sputum with gram- negative rods. Blood pressure remains at target 04/17: ICP remains elevated at 22-25. Became hypothermic overnight, likely related to worsening sepsis. Repeat panculture ordered, and vancomycin 04/18: Labile hypertension. Start patient limits expanded to 150-190 systolic. Became more hypoxic now on 90% FiO2. Chest x-ray shows slight increase in right lower lobe infiltrate. Sodium at target 04/19: Remains critically ill with intermittent ICP elevation. ABG shows respiratory alkalosis, minute ventilation reduce which caused ICP to increase further. 3% saline restarted and 23% saline 1 bolus ordered. Chest x-ray shows slight improvement in the right lower lung infiltrate 04/20: ICP elevated to 31, 23% bolus given with improvement to 12-15. Low-grade fever with increase in white count to 16.4. Will send panculture. CTA brain in am 04/21: Remains critically ill with intermittent ICP elevation. ICP controlled with 23% bolus. Keeping sodium 150-160. CT head, CTA 04/22/1604/22: CT of the head shows evolving left frontoparietal hemorrhage with increasing midline shift 1.5 cm left to right. Intermittent ICP elevation was responsive to 23% saline. D/W Neurosurgery. 04/23: Intubated and ICP elevation up to 27, optimized on medical therapy and hyperosmolar therapy. Prognosis very poor according to neurosurgery. Per Dr. Ruiz, patient has suffered significant dominant hemisphere frontal temporal lobe hemorrhage and and consequent cerebral injury which reduces likelihood of functional recovery. Palliative care consulted-will meet with family today 04/24: Overnight high ICP elevations up to 40s. Currently 17-20. Family meeting with palliative care. Optimized on hyperosmolar therapy. Ct head per Dr. Meléndez- large frontal hemorrhage with mass effect, persistent midline shift 04/25: ICP remains high despite maximum hyperosmolar therapy. Family requests aggressive care. Dr. Meléndez is planning for left decompressive craniectomy 04/26: Patient is s/p Left frontotemporal parietal decompressive craniotomy and evacuation of temporal hematoma. ICP better controlled 04-09, remains heavily sedated 04/27: ICP remains better control, 11-12. No acute events overnight. Overnight off Cardene or Levophed. Sedation vacation not approved by neurosurgery yet 04/28: Remains intubated sedated, ICP well control, CT of the head pending. Status post PEG tube placement, plan is for tracheostomy tomorrow. Increased 3 % saline to 30 mL per hour. 04/29: Ventric raised to 10. Will start SBTs. PEG placed, start TFs. Trach in place. Clean, dry. 04/30: Will lighten sedation and proceed with spontaneous breathing trials when OK with Dr. Meléndez. 05/01: Plans noted. Agree. Will mainatin hypertension and allow patient to slowly diurese extra free water. D/C antibiotics as NG. Check C. diff culture. 05/02: Stopped all antibiotics and antifungals. Will reculture completely and check C.diff PCR ahead of possible ENTRY LEVEL ELECTRICIAN shunt placement thursday. Cardene requirements remain high - will start scheduled labetalol and gentle diuretic. Way ahead free water. Will continue to keep well hydrated and hypertensive for SAH vasospasm prevention. 05/03: Urine insignificant colonization, no invasive infection. Others NGTD. Holding abx. Culture for fevers. Diuresing well while maintaining good perfusion pressure. 05/04: Good peripheral perfusion after aggressive diuresis. If creatinine OK will give one dose tobramycin to sterilize to lightly colonized urine. Hypertensive urgency persists, favorable actually for her disease state. 05/05: Will add daily ceftriaxone for urine for 5 days. This is not a significant infection, but in view of intention to place prosthetic device we will cover. 05/06: Continued swelling left hemisphere. Will concentrate serum more. 05/07: Back from OR on ventilator. BP acceptable. Good gas exchange. 05/08: Low grade fever. Stable hemodynamics, acceptable gas exchange. 05/09: Will adjust BP meds to normotensive range now. Replace 2% with salt tablets. Follow cultures. 05/10: Still requiring cardene. Will start norvasc and catapres po scheduled. 05/11: Tolerating SBTs well. V-P shunt site clean. Still some episodic hypertension but mostly well controlled BP on labetalol, norvasc, catapres. Avoiding KISHA-I due to tongue edema. Plan gradual transition to higher dose norvasc and catapres with HCTZ. Gradually taper off labetalol and convert to high dose lopressor. Could go to LTAC or SNF in 2-3 days. Objective - Vital Signs Date Time Temp Pulse Resp B/P Pulse Ox O2 Delivery O2 Flow Rate FiO2 05/11/16 14:00 77 05/11/16 12:39 100 40 05/11/16 12:00 98.6 16 171/89 Intake and Output 05/10/16 05/10/16 05/11/16 08:00 16:00 00:00 Intake Total 522 ml 1032 ml 647 ml Output Total 250 ml 1300 ml 1200 ml Balance 272 ml -268 ml -553 ml Result Diagram: 05/11/16 0325 05/11/16 0325 Other Results Laboratory Tests Test 04/11/16 04/11/16 04/12/16 13:06 20:44 05:58 Blood Gas Puncture Site ART LINE ART LINE ART LINE Blood Gas Patient Temperature 98.6 98.6 98.6 Blood Gas HCO3 20 mmol/L 21 mmol/L 19 mmol/L (22-26) (22-26) (22-26) Blood Gas Base Excess -4.2 mmol/L -3.1 mmol/L -4.9 mmol/L (-2-2) (-2-2) (-2-2) Blood Gas Oxygen Saturation 98 % (90-100) 98 % (90-100) 97 % (90-100) Arterial Blood pH 7.40 7.42 7.42 (7.380-7.420) (7.380-7.420) (7.380-7.420) Arterial Blood Partial 33 mmHg (38-42) 33 mmHg (38-42) 30 mmHg (38-42) Pressure CO2 Arterial Blood Partial 372 mmHg 450 mmHg 135 mmHg Pressure O2 (61-120) (61-120) (61-120) Arterial Blood Oxygen Content 11.0 Vol % 10.2 Vol % 15.4 Vol % (12.0-20.0) (12.0-20.0) (12.0-20.0) Arterial Blood 1.5 % (0-4) 1.4 % (0-4) 1.3 % (0-4) Carboxyhemoglobin Arterial Blood Methemoglobin 1.2 % (0-2) 1.2 % (0-2) 1.1 % (0-2) Blood Gas Hemoglobin 7.3 G/DL 6.5 G/DL 11.2 G/DL (12.0-16.0) (12.0-16.0) (12.0-16.0) Oxygen Delivery Device VENT VENTILATOR VENTILATOR Blood Gas Ventilator Setting PRVC/20RATE/500/5PEE PRVC/AC PRVC/AC Blood Gas Inspired Oxygen 100 % 100 % 40 % Objective Remarks GEN: Middle-aged female. Craniotomy dressing ride side, remains dry, clean HEENT: Atraumatic. Pupils 2 mm reactive. Tongue very swollen still. NECK: Supple. No resistance to motion. Trach in place, clean, dry. No drainage. LUNGS: Clear, no wheezes or crackles. Comfortable respiratory pattern on PSV. HEART: Normal S1-S2, RRR. No JVD. ABDOMEN: Soft, nontender, nondistended, no guarding, bowel sounds normal. EXTREMITIES: Warm, well-perfused. 1+ peripheral edema, improving. NEUROLOGIC: Pupils 2 mm, nonreactive, no withdrawal to pain. Opens eyes randomly , not to stimulation or voice. Unresponsive. A/P Assessment and Plan Acute subarachnoid hemorrhage, left middle cerebral artery aneurysm Large left frontal hemorrhage Intracranial hypertension Acute respiratory failure on mechanical ventilation RLL pneumonia/E Coli in sputum Sepsis Acute encephalopathy Malignant hypertension Status post coiling of MCA aneurysm Severe LV concentric hypertrophy. Probable HOCM Hypokalemia History of hypertension Lactic acidosis PLAN: NEURO: Acute subarachnoid hemorrhage, left middle cerebral artery aneurysm Intracranial hypertension, uncontrolled Acute encephalopathy s/p left decompressive craniotomy 04/25/16 and evacuation of temporal hematoma s/p endovascular coiling of ruptured cerebral aneurysm Patient has suffered significant dominant hemisphere frontal temporal lobe hemorrhage and consequent cerebral injury which reduces likelihood of functional recovery. Family request aggressive care and Dr. Meléndez performed left decompressive craniotomy 04/25/16 and evacuation of temporal hematoma V-P shunt 05/07. Sedation/analgesia (Propofol, Versed and Fentanyl) to help control ICP. Mild hypervolemia using CVP. No spontaneous awakening trial until approved by N/S. f/u CT head today 04/28/16 Continue Ventricular drain. Keppra, Nimotop. Treat fever aggressively. Nimbex for ICP control-DCd 04/21/16 23% PRN for ICP >20. Keep Na 150-155. 3% gtt at [address] angiogram done 04/14, 04/16/16, 04/22/16 showed status post endovascular repair of left supraclinoid aneurysm, left M1 segment aneurysm stable no vasospasm. Continue with hypervolemia and hypertension for vasospasm prevention. Target SBP 180 for vasospasm prophylaxis. All sedation ceased 05/07. Target BP 110 - 160 Palliative care following, remains full code CV: Uncontrolled HTN, now permissive Severe LV concentric hypertrophy. Probable HOCM Target SBP 150-190 for vasospasm prophylaxis. Maintain preload, follow CVP, for hypervolemia. Use Levophed/Cardene PRN Stopped Nimotop at 3 weeks. (Recommendation for consideration of septal ablation on echo, patient is not a candidate for surgical intervention due to devastating neuro injury) Continue heart rate control and antihypertensives. Keep SBP 110 - 150. Concentric hypertrophy will benefit from rate control. RESP: Acute respiratory failure HCAP PC/AC vent mode, adjust vent rate to keep EtCO2 28-33. Nebs prn and scheduled. Vent bundle. No vent weaning due to high ICP, severe encephalopathy Tracheostomy 04/29 : Rebollar required for hourly output. Continue active diuresis. GI: Restart tube feeds. Lactulose to 30 ml daily. Dulcolax suppository PRN, Having BM GI -> PEG tube placement HEME: Serial Hgb. Monitor CBC ID: Sepsis HCAP with E Coli, Haemophilus Sputum cx EColi, haemophilus and blood cultures neg to date. On Zosyn 4.5 GM IV q6 04/15/16. Levaquin was added 04/16/16 to cover for Stenotrophomonas -DCd 04/19, restarted again 04/20/16- 04/26/16 Repeat panculture with blood urine and sputum cultures 04/17/16 negative to date CXR bilateral infiltrates, with leukocytosis and brown sputum Resend cultures due to low grade fever and increased WBC 04/20 -NEG to date All recent cultures NG aside from minor Staph. ENDO: SSI for euglycemia. PX: SCDs. Protonix. Lovenox. Overall impression: Presented with severe SAH and left parenchymal bleed from ruptured aneurysm, with cerebral edema 3 weeks ago. V-P shunt placed and EVD removed. Follow fevers and cultures. No sedation for > 4 days.. Increase norvasc and catapres; eventually convert to an outpatient HTN regimen. Jeffrey Chand MD May 11, 2016 15:18
[2016-05-11] MEDS: RESP: ALBUTEROL 2.5 MG/IPRATROPIUM 0.5 MG NEB (PRN) INH (20:58)
[2016-05-12] VITALS (19 sets, daily range): BP systolic 147–174; BP diastolic 82–92; PULSE 66–86; RESP 14–27; TEMP 98.5–99.7; O2SAT 95–100
[2016-05-12] MEDS: METOCLOPRAMIDE HCL SYRUP 10 MG/10 ML UDC PO SCH ×2 (01:25→08:40)
[2016-05-12] MEDS: CHLORHEXIDINE GLUCONATE 2 % 1 PACK (2 CLOTHS) TOP SCH (04:00)
--- NOTE | 2016-05-12 04:02 | RADRPT ---
EXAM DATE/TIME: 05/12/2016 03:00 [place] COMPARISON: CHEST SINGLE AP, April 30, 2016, 19:33. INDICATIONS : Respiratory failure. MEDICAL HISTORY : Hypertension. Subarachnoid hemorrhage. SURGICAL HISTORY : None. ENCOUNTER: Subsequent ACUITY: 1 month PAIN SCORE: Non-responsive. LOCATION: Bilateral chest FINDINGS: A single view of the chest demonstrates the lungs to be symmetrically aerated without evidence of mas s, infiltrate or effusion. [employer] shunt tubing and tracheostomy tube in good position The cardiomediastin al contours are unremarkable. Osseous structures are intact. CONCLUSION: Normal examination. Sunny Berger MD on May 12, 2016 at 3:59 Board Certified Radiologist. This report was verified electronically.
[2016-05-12 05:31] LABS: HEMATOCRIT 27.5 % (35.0-46.0); MEAN CELL VOLUME 78.9 FL (80.0-100.0); MEAN CORPUSCULAR HEMOGLOBIN 25.2 PG (27.0-34.0); MEAN CORPUSCULAR HGB CONC 31.9 % (32.0-36.0); PLATELET COUNT 430 TH/MM3 (150-450); RED BLOOD COUNT 3.49 MIL/MM3 (4.00-5.30); RED CELL DISTRIBUTION WIDTH 21.6 % (11.6-17.2); WHITE BLOOD COUNT 13.8 TH/MM3 (4.0-11.0)
[2016-05-12 05:36] LABS: REVIEW FLAG FINAL
[2016-05-12 05:53] LABS: ALKALINE PHOSPHATASE 259 U/L (45-117); ALT (GPT) 53 U/L (10-53); ANION GAP 7 MEQ/L (5-15); AST (GOT) 35 U/L (15-37); BICARBONATE 29.7 MEQ/L (21.0-32.0); BLOOD UREA NITROGEN 10 MG/DL (7-18); CHLORIDE 103 MEQ/L (98-107); GLOMERULAR FILTRATION RATE 200 ML/MIN (>89); MAGNESIUM 1.4 MG/DL (1.5-2.5); POTASSIUM 3.8 MEQ/L (3.5-5.1); SODIUM (NA) 140 MEQ/L (136-145); TOTAL BILIRUBIN ADULT 0.4 MG/DL (0.2-1.0)
--- NOTE | 2016-05-12 06:38 | HHI.CCPN ---
Subjective Remarks/Hospital Course SAH, unresponsive, malignant hypertension 46 year-old -Tong[place] female with a longstanding history of hypertension, was found unresponsive at her home on 04/11. When paramedics arrived, they found her with shallow breathing and a Angelica coma scale of 3. SBP was 290. She was transported with bag mask ventilation to the emergency department where she remained unresponsive and required endotracheal intubation. CT scan of the head showed a large left hemispheric intraparenchymal hemorrhage with subarachnoid blood. 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 Pt was started on a Cardene drip and admitted to the ICU. Neurosurgery was consulted and a ventriculostomy was placed. Pt subsequently went to interventional radiology and she underwent coiling of aneurysm. Pertinent ICU Coarse: 04/12: On full vent support. ICP acceptable with drainage bloody as expected 04/13: ICP starting to rise > 20, requiring vent manipulation, increased sedation , analgesia 04/14: Intermittently ICP spiking >20, RR increased to 18, 50 mg of rocuronium 1. CT angiogram shows endovascular repair of left supraclinoid aneurysm, left M1 segment aneurysm stable; no vasospasm 04/15: Remains heavily sedated for ICP control 04/16: Hypoxemic - FiO2 increased to 70%. CXR shows increasing RLL infiltrate 04/17: ICP remains elevated at 22-25 04/18: Labile hypertension. BP limits expanded to 150-190 systolic. More hypoxic now on 90% FiO2 04/19: Remains critically ill with intermittent ICP elevation. 3% saline restarted and 23% saline 1 bolus ordered 04/20: ICP elevated to 31, 23% bolus given with improvement to 12-15 04/21: Remains critically ill with intermittent ICP elevation - controlled with 23% bolus. Keeping sodium 150-160 04/22: CT head shows evolving left frontoparietal hemorrhage with increasing midline shift 1.5 cm left to right. Intermittent ICP elevation responsive to 23 % saline 04/23: ICP elevation up to 27, optimized on medical therapy and hyperosmolar therapy. Prognosis very poor according to neurosurgery. Per Dr. Ruiz, patient has suffered significant dominant hemisphere frontal temporal lobe hemorrhage and consequent cerebral injury which reduces likelihood of functional recovery. Palliative care consulted 04/24: Overnight high ICP elevations up to 40s. Optimized on hyperosmolar therapy. 04/25: ICP remains high despite maximum hyperosmolar therapy. Family requests aggressive care. s/p left decompressive craniectomy by Dr. Meléndez 04/26-04/27: ICP better controlled 04-09, remains heavily sedated 04/28: Remains intubated, sedated, ICP well controlled. s/p PEG by GI. 04/29: Ventric raised to 10. s/p trach by surgery. 04/30-05/01: Starting spontaneous breathing trials. Maintain permissive hypertension for SAH vasospasm prevention 05/02: Stopped all antibiotics and antifungals. Will reculture completely and check C.Diff PCR ahead of possible PRICING LEAD shunt placement 05/03: Diuresing well while maintaining good perfusion pressure. 05/04-05/06: Continue PSV trials; BP stable (permissive hypertension) 05/07: s/p PRICING LEAD shunt by Dr. Meléndez. BP acceptable. Good gas exchange. 05/08: Low grade fever. Stable hemodynamics, acceptable gas exchange. 05/09: Adjust BP medications to normotensive range (goal < 160) now. Replace 2% with salt tablets 05/10: Still requiring Monica - adjusting oral anti-HTN 05/11-05/12: Tolerating PSV trials. V-P shunt site clean. Off Nicardipine drip. Objective - Vital Signs Date Time Temp Pulse Resp B/P Pulse Ox O2 Delivery O2 Flow Rate FiO2 05/12/16 06:00 86 05/12/16 04:30 100 40 05/12/16 04:00 99.5 14 165/92 174/84 Intake and Output 05/11/16 05/11/16 05/12/16 08:00 16:00 00:00 Intake Total 458 ml 919 ml 627 ml Output Total 800 ml 1200 ml 700 ml Balance -342 ml -281 ml -73 ml Result Diagram: 05/12/16 0500 05/12/16 0500 Objective Remarks GENERAL: Chronically critically ill Middle-aged female lying in bed on mechanical ventilation HEENT: Craniotomy site remains dry. Pupils reactive. Tongue remains very swollen NECK: Supple - No resistance to motion. Trach in place, clean, dry LUNGS: Clear anteriorly with good air entry bilaterally HEART: Regular rate and rhythm. Normal S1-S2 ABDOMEN: Soft, nondistended. PEG site intact. Positive bowel sounds EXTREMITIES: Palpable pulses with warm periphery. Mild peripheral edema NEUROLOGIC: Withdraws all 4 extremities to noxious stimuli; not following commands. Spontaneous eye openings but does not track. A/P Assessment and Plan 1) Neuro / Psych Acute subarachnoid hemorrhage (left middle cerebral artery aneurysm) Large left frontal hemorrhage with Intracranial hypertension -- s/p endovascular coiling of MCA ruptured cerebral aneurysm 04/11 -- CT angiogram 04/14, 04/16, 04/22 - stable, no vasospasm. -- Patient with significant dominant hemisphere frontal temporal lobe hemorrhage and consequent cerebral injury which reduces likelihood of functional recovery -- Family request aggressive care and Dr. Meléndez performed left decompressive craniotomy 04/25 with evacuation of temporal hematoma -- All continuous sedation discontinued and PRICING LEAD shunt placed 05/07 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 -- s/p permissive Hypertension for prevention of vasospasm in SAH patient now targeting SBP < 160 -- s/p 3 weeks of Nimotop therapy for vasospasm prevention -- Continue Norvasc 10 q day, Labetalol 600 q 8 hours -- Avoiding KISHA-I given severe tongue edema -- Recommendation for consideration of septal ablation on echo - Not a candidate for surgical intervention due to devastating neuro injury 3) Pulmonary Acute respiratory failure secondary to SAH / ICH -- s/p tracheostomy 04/29 -- Continue ACV rate 14, TV 500, PEEP 5 and 30% FiO2 -- Continue with daily PSV and trach collar trials -- Continue DuoNeb q 4 hours as needed -- CXR 05/12 - no infiltrates 4) GI / Nutrition Mild protein calorie malnutrition Isolated Alkaline phosphate elevation -- s/p PEG 04/28 -- Tolerating tube feeds (Jevity) at goal of 50 cc/hr (-25-30 kcal/kg/day) -- Pt with +++ bowel movements and not requiring bowel regimen at present 5) Renal / Metabolic Hypokalemia, Hypomagnesemia -- Bun and creatinine stable with good urine output -- Rebollar catheter in place for accurate I/Os in critically ill patient -- Supplement electrolytes as needed per replacement protocol 6) Endocrine Euglycemic and not requiring SSI at present 7) Heme Anemia of chronic inflammation / disease -- Hgb stable with no signs of active bleeding 8) ID Sepsis secondary to pneumonia and prior UTI -- Pertinent cultures: - Sputum 04/15 - E. coli, H. flu - Sputum 05/02 - Rob sensitive Acinetobacter - Urine 9/2 - E. coli - CSF 05/05 and 05/07 - negative - All previous blood cultures negative -- s/p antibiotic therapy for above pneumonia and UTI -- Currently off all anti-microbial therapy 9) Prophylaxis: GI - oral Zantac q 12 DVT - SCDs; Lovenox 40 q day 10) Rehab: PT / OT Will eventually need LTACH / SNF 11) IV Access: Peripheral iv E/M time is 35 minutes (Level 3) Sameer Aparicio MD May 12, 2016 06:38 Sameer Aparicio MD May 12, 2016 06:38 Continue active diuresis. 6) ENDO: SSI for euglycemia. 7) Heme Serial Hgb. Monitor CBC 8) ID Sepsis HCAP with E Coli, Haemophilus Sputum cx EColi, haemophilus and blood cultures neg to date. On Zosyn 4.5 GM IV q6 04/15/16. Levaquin was added 04/16/16 to cover for Stenotrophomonas -DCd 04/19, restarted again 04/20/16- 04/26/16 Repeat panculture with blood urine and sputum cultures 04/17/16 negative to date CXR bilateral infiltrates, with leukocytosis and brown sputum Resend cultures due to low grade fever and increased WBC 04/20 -NEG to date All recent cultures NG aside from minor Staph. 9) Prophylaxis: SCDs. Protonix. Lovenox. Overall impression: Presented with severe SAH and left parenchymal bleed from ruptured aneurysm, with cerebral edema 3 weeks ago. V-P shunt placed and EVD removed. Follow fevers and cultures. No sedation for > 4 days.. Increase norvasc and catapres; eventually convert to an outpatient HTN regimen. Sameer Aparicio MD May 12, 2016 06:38 q6 04/15/16. Levaquin was added 04/16/16 to cover for Stenotrophomonas -DCd 04/19, restarted again 04/20/16- 04/26/16 Repeat panculture with blood urine and sputum cultures 04/17/16 negative to date CXR bilateral infiltrates, with leukocytosis and brown sputum Resend cultures due to low grade fever and increased WBC 04/20 -NEG to date All recent cultures NG aside from minor Staph. 9) Prophylaxis: SCDs. Protonix. Lovenox. Overall impression: Presented with severe SAH and left parenchymal bleed from ruptured aneurysm, with cerebral edema 3 weeks ago. V-P shunt placed and EVD removed. Follow fevers and cultures. No sedation for > 4 days.. Increase norvasc and catapres; eventually convert to an outpatient HTN regimen. Sameer Aparicio MD May 12, 2016 06:38 9) Prophylaxis: SCDs. Protonix. Lovenox. Overall impression: Presented with severe SAH and left parenchymal bleed from ruptured aneurysm, with cerebral edema 3 weeks ago. V-P shunt placed and EVD removed. Follow fevers and cultures. No sedation for > 4 days.. Increase norvasc and catapres; eventually convert to an outpatient HTN regimen. Sameer Aparicio MD May 12, 2016 06:38
[2016-05-12] MEDS: LABETALOL HCL 200 MG TAB PO SCH (06:43)
[2016-05-12] MEDS: cloNIDine HCL 0.2 MG TAB PO SCH (06:43)
[2016-05-12] MEDS: LABETALOL HCL 100 MG/20 ML VIAL IVS PRN (06:43)
[2016-05-12] MEDS: MAGNESIUM SULFATE INJ 2 GM in SODIUM CHLORIDE 0.9% INJ 96 ML IV PRN (07:17)
[2016-05-12] MEDS: levETIRAcetam 500 MG/5 ML UDC TUBE SCH ×2 (08:40→20:45)
[2016-05-12] MEDS: ACETAMINOPHEN 325MG/HYDROcodone 7.5MG/15ML UDC PO PRN (08:40)
[2016-05-12] MEDS: POTASSIUM CL 40 MEQ/30 ML LIQ UDC NG SCH (08:40)
[2016-05-12] MEDS: FUROSEMIDE 20 MG TAB PO SCH (08:41)
[2016-05-12] MEDS: SODIUM CHLORIDE 1 GRAM TAB PO SCH (08:41)
[2016-05-12] MEDS: amLODIPine BESYLATE 5 MG TAB PO SCH (08:41)
[2016-05-12] MEDS: LANSOPRAZOLE SOLUTAB 30 MG TAB NG SCH (08:41)
[2016-05-12] MEDS: SODIUM CHLORIDE 0.9% FLUSH 5 ML FLUSH IVF SCH ×2 (08:41→20:45)
[2016-05-12] MEDS: ENOXAPARIN SODIUM 30 MG/0.3 ML SYRINGE SQ SCH (08:41)
[2016-05-12] MEDS ORDERED: amLODIPine BESYLATE 5 MG TAB PO ONE (09:00)
--- NOTE | 2016-05-12 09:32 | HHI.NSPN ---
(Genna Madrid) History Chief Complaint: status post coil for aneurysm (Genna Madrid) Interval History 04/12/16: Patient had an aneurysm coiled yesterday, intubated and sedated, ICP stable overnight 04/13/16: Increased ICP overnight, improved after a 23% saline bolus 04/14/16: ICP stable overnight 04/15/16: ICP stable, CTA stable no vasospasm 04/16/16: ICP slight increase overnight now stabilized, intubated and sedated 04/17/16: ICP increased yesterday afternoon, repeat CTA and CT stable, no vasospasm, no new hemorrhage, hypothermia overnight 04/21/16: increasing ICP over the weekend, getting 23% every 6 hours PRN. 04/22/16: ICP responding over night to 23% saline, CT and CTA planned this am. Nimbex off since yesterday. 04/23/16: ICP stable overnight, SBP increasing today RN adjusting pressors, HGB improved after 2 units of PRBC, no signs of active bleeding 04/24/16: ICP increased overnight with stimulation but not sustained, low HGB again today receiving PRBC this am 04/25/16: ICP max 38 overnight, currently 10, no family at bedside. 04/26/16: She has ventriculostomy drain in place. She underwent left decompressive craniectomy yesterday 04/[address] Meléndez due to elevated ICPs. Today, ICPs improved, currently 4. 04/27/16: intermittent spikes in ICPs overnight in low 20's controlled with hyperosmotic bolus. Currently 9. well sedated. 04/28/16: ICP stable between 9-14 per RN. EVD draining blood tinged CSF, flap firm non-pulsatile 04/29/16: ICP stable overnight, PEG yesterday, Trach today. 04/30/16: EVD clamped 05/01/16: EVD clamped, ICP max 17, currently 14. 05/02/16: EVD draining, ICP 9, no sedation 05/03/16: Pt with eyes open. Not following commands. Pupils 4mm bilaterally reactive bilaterally. Ventriculostomy in place at [id number]. ICP 8. 9: Pt with eyes open. Not following commands. Pupils 4mm bilaterally reactive bilaterally. Ventriculostomy in place at [id number]. ICP 8. 9: Day 24 after PCOM aneurysm bleed and coiling, Pupils reactives, eyes now open and she is more alert. EVD was clamped this am, remains straw coloured. 05/06/16: eyes open, very mild flexion to deep pain in the upper extremities. 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 for HYDROLOGICAL TECHNICAL OFFICER shunt placement 05/08/16: POD 1 from shunt placement, eyes open, does not track 05/09/16: POD 2 no withdrawal on exam today and eyes are more deviated 05/10/16: EEG negative for seizures yesterday, labile HTN, stable neuro hoff 05/11/16: no changes overnight 05/12/16: no changes per nurse (Genna Madrid) Exam Results Vital Signs Date Time Temp Pulse Resp B/P Pulse Ox O2 Delivery O2 Flow Rate FiO2 05/12/16 08:00 99.7 74 14 100 147/82 05/12/16 08:00 30 Intake and Output 05/11/16 05/11/16 05/12/16 08:00 16:00 00:00 Intake Total 458 ml 919 ml 627 ml Output Total 800 ml 1200 ml 700 ml Balance -342 ml -281 ml -73 ml (Genna Madrid) Physical Examination Ventilated via tracheostomy. Continues to have severe angioedema. Mild eye opening with light sternal rub. Disconjugate gaze. Appears to be tracking intermittently. Flap is sunken. Incision are dry and intact. No erythema, edema or drainage. No withdrawal x 4 to deep pain. Bilateral podus boots and SCD's in place in LE (Genna Madrid) Lab, Micro, Other Results Last Impressions Chest X-Ray 05/12/16 0600 Signed Impressions: Service Date/Time: Thursday, May 12, 2016 03:00 - CONCLUSION: Normal examination. Sunny Berger MD Head CT 05/09/16 0600 Signed Impressions: Service Date/Time: Monday, May 09, 2016 04:30 - CONCLUSION: 1. Right frontal ventriculostomy tube tip in third ventricle with decrease in ventricular size since May 06. Slight decrease in swelling in the left frontal lobe. Craniectomy defect unchanged. Vascular coils in left suprasellar region unchanged. Extensive sinus opacification and mastoid air cell opacification present. Quinn Bateman MD Skull X-Ray 05/08/16 0000 Signed Impressions: Service Date/Time: May 10:16 - CONCLUSION: Shunt set to 70-80 mm H2O. Fei Snyder MD Head CTA 05/02/16 0600 Signed Impressions: Service Date/Time: Monday, May 02, 2016 04:32 - CONCLUSION: Satisfactory appearance post aneurysm coiling Fei Snyder MD Abdomen/Pelvis CT 04/24/16 1416 Signed Impressions: Service Date/Time: , April 24, 2016 14:39 - CONCLUSION: Mild small bowel ileus with scattered air-fluid levels. Bibasilar lung consolidation with associated small effusions. Significant soft tissue fluid accumulation with edematous changes throughout the abdominal wall. Nasogastric tube in good position. Saqib Garcia MD Neck CTA 04/11/16 1151 Signed Impressions: Service Date/Time: Monday, April 11, 2016 12:01 - CONCLUSION: Negative for hemodynamically significant carotid stenosis. Ricardo Castellanos MD FACR Cerebral Arteriogram 04/11/16 0000 Signed Impressions: Service Date/Time: Monday, April 11, 2016 14:18 - CONCLUSION: 1. 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 This is the aneurysm felt responsible for the intracranial hemorrhage. 2. Small 4 mm left M1 segment aneurysm. Attempts at embolizing this aneurysm were unsuccessful due to the broad based nature of the aneurysm. Endovascular repair of this aneurysm could not be performed. Kennedy Thibodeaux Jr., MD Laboratory Tests Test 05/12/16 05:00 White Blood Count 13.8 TH/MM3 Red Blood Count 3.49 MIL/MM3 Hemoglobin 8.8 GM/DL Hematocrit 27.5 % Mean Corpuscular Volume 78.9 FL Mean Corpuscular Hemoglobin 25.2 PG Mean Corpuscular Hemoglobin 31.9 % Concent Red Cell Distribution Width 21.6 % Platelet Count 430 TH/MM3 Mean Platelet Volume 8.0 FL Sodium Level 140 MEQ/L Potassium Level 3.8 MEQ/L Chloride Level 103 MEQ/L Carbon Dioxide Level 29.7 MEQ/L Anion Gap 7 MEQ/L Blood Urea Nitrogen 10 MG/DL Creatinine 0.41 MG/DL Estimat Glomerular Filtration 200 ML/MIN Rate Random Glucose 112 MG/DL Calcium Level 8.7 MG/DL Phosphorus Level 3.9 MG/DL Magnesium Level 1.4 MG/DL Total Bilirubin 0.4 MG/DL Aspartate Amino Transf 35 U/L (AST/SGOT) Alanine Aminotransferase 53 U/L (ALT/SGPT) Alkaline Phosphatase 259 U/L Total Protein 6.2 GM/DL Albumin 2.0 GM/DL (Genna Madrid) Medical Decision Making Impression and Plan Impression: 1. Neurologic exam stable following endovascular coiling of ruptured cerebral aneurysm with subsequent left decompressive craniotomy 04/14/16 CT angiogram stable: Status post endovascular repair of left supraclinoid aneurysm. Left M1 segment aneurysm stable 04/16/[address] and CTA stable. No vasospasm, no new hemorrhage. 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 Midline shift has resolved but there is persistent herniation of brain at the craniotomy defect. No new or acute blood demonstrated. Mild to moderate ventriculomegaly, increased. Codman Valve adjusted to [id number]. 05/09/16: stable head CT, improving ventriculomegaly 05/09/16: Negative EEG Plan: Follow up head CT 05/13 to evaluate shunt pressure since flap remains sunken Continue tube feeds as tolerated. Lovenox for DVT prophylaxis Maintain systolic blood pressure 110-160 range Continue to monitor sodium level, keep 145-150. Tunnel Heading Supervisor following for medical management. Keppra for seizure prophylaxis. Protonix for ulcer prophylaxis Physical therapy. (Genna Madrid) Attending Statement The exam, history, and the medical decision-making described in the above note were completed with the assistance of the mid-level provider. I reviewed and agree with the findings presented. I attest that I had a [id number] encounter with the patient on the same day, and personally performed and documented my assessment and findings in the medical record. (Sherwin Meléndez MD ) Genna Madrid May 12, 2016 09:32 Sherwin Meléndez MD May 13, 2016 16:48
[2016-05-12] MEDS ORDERED: MORPHINE SULFATE 4 MG/ML INJ IV PUSH PRN (10:15)
[2016-05-12] MEDS ORDERED: EPINEPHrine HCL (1:10,000) 1 MG/10 ML SYRINGE ONE (13:44)
[2016-05-12] MEDS ORDERED: LIDOCAINE HCL 2% 100 MG/5 ML SYRINGE ONE (13:44)
[2016-05-12] MEDS ORDERED: ATROPINE SULFATE 1 MG/10 ML SYRINGE ONE (13:45)
[2016-05-12] MEDS: LABETALOL HCL 300 MG TAB PO SCH ×2 (13:48→20:46)
--- NOTE | 2016-05-12 15:26 | RADRPT ---
EXAM DATE/TIME: 05/12/2016 15:16 [facility] COMPARISON: CT BRAIN W/O CONTRAST, May 09, 2016, 4:30. INDICATIONS : Post operative shunt placement now with sunken flap. RADIATION DOSE: 56.35 CTDIvol (mGy) MEDICAL HISTORY : None SURGICAL HISTORY : Shunt placement, craniotomy. ENCOUNTER: Subsequent ACUITY: 1 month PAIN SCALE: Non-responsive LOCATION: Left cranial TECHNIQUE: Multiple contiguous axial images were obtained of the head. Using automated exposure control and adj ustment of the mA and/or kV according to patient size, radiation dose was kept as low as reasonably a chievable to obtain optimal diagnostic quality images. FINDINGS: There is previous craniectomy with the flap now sunken and significant decrease in the mass effect fr om the left middle cerebral artery infarct. Shunt catheter remains in place with its tip in the regio n of the third ventricle. No acute hemorrhage is identified. Posterior fossa structures are unremarka ble. CONCLUSION: 1. No lesion of the left middle cerebral artery infarct with marked reduction in the mass effect and the brain recommend now below the level of the craniectomy. 2. No acute hemorrhage is identified. Alessandro Schultz MD on May 12, 2016 at 15:22 Board Certified Radiologist. This report was verified electronically.
[2016-05-12] MEDS: MORPHINE SULFATE 4 MG/ML INJ IV PUSH PRN (18:34)
[2016-05-13] VITALS (16 sets, daily range): BP systolic 141–188; BP diastolic 72–107; PULSE 64–88; RESP 10–34; TEMP 98.4–99.3; O2SAT 98–100
[2016-05-13] MEDS: CHLORHEXIDINE GLUCONATE 2 % 1 PACK (2 CLOTHS) TOP SCH (04:00)
[2016-05-13] MEDS: LABETALOL HCL 100 MG/20 ML VIAL IVS PRN ×3 (04:22→20:29)
[2016-05-13] MEDS: MORPHINE SULFATE 4 MG/ML INJ IV PUSH PRN ×2 (04:23→20:30)
[2016-05-13] MEDS: LABETALOL HCL 300 MG TAB PO SCH ×3 (05:39→20:30)
[2016-05-13] MEDS: ENOXAPARIN SODIUM 40 MG/0.4 ML SYRINGE SQ SCH (08:59)
[2016-05-13] MEDS: levETIRAcetam 500 MG/5 ML UDC TUBE SCH (08:59)
[2016-05-13] MEDS: RANITIDINE HCL 150 MG TAB PO SCH ×2 (09:00→20:30)
[2016-05-13] MEDS: SODIUM CHLORIDE 0.9% FLUSH 5 ML FLUSH IVF SCH ×2 (09:00→20:30)
--- NOTE | 2016-05-13 10:04 | HHI.NSPN ---
(Genna Madrid) History Chief Complaint: status post coil for aneurysm (Genna Madrid) Interval History 04/12/16: Patient had an aneurysm coiled yesterday, intubated and sedated, ICP stable overnight 04/13/16: Increased ICP overnight, improved after a 23% saline bolus 04/14/16: ICP stable overnight 04/15/16: ICP stable, CTA stable no vasospasm 04/16/16: ICP slight increase overnight now stabilized, intubated and sedated 04/17/16: ICP increased yesterday afternoon, repeat CTA and CT stable, no vasospasm, no new hemorrhage, hypothermia overnight 04/21/16: increasing ICP over the weekend, getting 23% every 6 hours PRN. 04/22/16: ICP responding over night to 23% saline, CT and CTA planned this am. Nimbex off since yesterday. 04/23/16: ICP stable overnight, SBP increasing today RN adjusting pressors, HGB improved after 2 units of PRBC, no signs of active bleeding 04/24/16: ICP increased overnight with stimulation but not sustained, low HGB again today receiving PRBC this am 04/25/16: ICP max 38 overnight, currently 10, no family at bedside. 04/26/16: She has ventriculostomy drain in place. She underwent left decompressive craniectomy yesterday 04/[address] Meléndez due to elevated ICPs. Today, ICPs improved, currently 4. 04/27/16: intermittent spikes in ICPs overnight in low 20's controlled with hyperosmotic bolus. Currently 9. well sedated. 04/28/16: ICP stable between 9-14 per RN. EVD draining blood tinged CSF, flap firm non-pulsatile 04/29/16: ICP stable overnight, PEG yesterday, Trach today. 04/30/16: EVD clamped 05/01/16: EVD clamped, ICP max 17, currently 14. 05/02/16: EVD draining, ICP 9, no sedation 05/03/16: Pt with eyes open. Not following commands. Pupils 4mm bilaterally reactive bilaterally. Ventriculostomy in place at [id number]. ICP 8. 9: Pt with eyes open. Not following commands. Pupils 4mm bilaterally reactive bilaterally. Ventriculostomy in place at [id number]. ICP 8. 9: Day 24 after PCOM aneurysm bleed and coiling, Pupils reactives, eyes now open and she is more alert. EVD was clamped this am, remains straw coloured. 05/06/16: eyes open, very mild flexion to deep pain in the upper extremities. 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 for TALENT ANALYST shunt placement 05/08/16: POD 1 from shunt placement, eyes open, does not track 05/09/16: POD 2 no withdrawal on exam today and eyes are more deviated 05/10/16: EEG negative for seizures yesterday, labile HTN, stable neuro hoff 05/11/16: no changes overnight 05/12/16: no changes per nurse 05/13/16: stable overnight (Genna Madrid) Exam Results Vital Signs Date Time Temp Pulse Resp B/P Pulse Ox O2 Delivery O2 Flow Rate FiO2 05/13/16 09:11 100 30 05/13/16 06:00 69 05/13/16 04:00 99.0 10 175/96 Intake and Output 05/12/16 05/12/16 05/13/16 08:00 16:00 00:00 Intake Total 606 ml 660 ml 523 ml Output Total 300 ml 200 ml Balance 606 ml 360 ml 323 ml (Genna Madrid) Physical Examination Ventilated via tracheostomy. Continues to have severe angioedema. Spontaneous eye opening. Disconjugate gaze. Tracks with eyes. Flap is sunken. Incision are dry and intact. No erythema, edema or drainage. No withdrawal x 4 to deep pain. Bilateral podus boots and SCD's in place in LE (Genna Madrid) Lab, Micro, Other Results Last Impressions Chest X-Ray 05/12/16 0600 Signed Impressions: Service Date/Time: Thursday, May 12, 2016 03:00 - CONCLUSION: Normal examination. Sunny Berger MD Head CT 05/12/16 0000 Signed Impressions: Service Date/Time: Thursday, May 12, 2016 15:16 - CONCLUSION: 1. No lesion of the left middle cerebral artery infarct with marked reduction in the mass effect and the brain recommend now below the level of the craniectomy. 2. No acute hemorrhage is identified. Alessandro Schultz MD Skull X-Ray 05/08/16 0000 Signed Impressions: Service Date/Time: May 10:16 - CONCLUSION: Shunt set to 70-80 mm H2O. Fei Snyder MD Head CTA 05/02/16 0600 Signed Impressions: Service Date/Time: Monday, May 02, 2016 04:32 - CONCLUSION: Satisfactory appearance post aneurysm coiling Fei Snyder MD Abdomen/Pelvis CT 04/24/16 1416 Signed Impressions: Service Date/Time: March 14:39 - CONCLUSION: Mild small bowel ileus with scattered air-fluid levels. Bibasilar lung consolidation with associated small effusions. Significant soft tissue fluid accumulation with edematous changes throughout the abdominal wall. Nasogastric tube in good position. Saqib Garcia MD Neck CTA 04/11/16 1151 Signed Impressions: Service Date/Time: Monday, April 11, 2016 12:01 - CONCLUSION: Negative for hemodynamically significant carotid stenosis. Ricardo Castellanos MD FACR Cerebral Arteriogram 04/11/16 0000 Signed Impressions: Service Date/Time: Monday, April 11, 2016 14:18 - CONCLUSION: 1. 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 This is the aneurysm felt responsible for the intracranial hemorrhage. 2. Small 4 mm left M1 segment aneurysm. Attempts at embolizing this aneurysm were unsuccessful due to the broad based nature of the aneurysm. Endovascular repair of this aneurysm could not be performed. Kennedy Thibodeaux Jr., MD (Genna Madrid) Medical Decision Making Impression and Plan Impression: 1. Neurologic exam stable following endovascular coiling of ruptured cerebral aneurysm with subsequent left decompressive craniotomy 04/14/16 CT angiogram stable: Status post endovascular repair of left supraclinoid aneurysm. Left M1 segment aneurysm stable 04/16/[address] and CTA stable. No vasospasm, no new hemorrhage. 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 Midline shift has resolved but there is persistent herniation of brain at the craniotomy defect. No new or acute blood demonstrated. Mild to moderate ventriculomegaly, increased. Codman Valve adjusted to [id number]. 05/09/16: stable head CT, improving ventriculomegaly 05/09/16: Negative EEG 05/12/16: Head CT stable Plan: Follow up head CT next week d/c Keppra OR planned for replacement of skull flap next . Continue tube feeds as tolerated. Lovenox for DVT prophylaxis Maintain systolic blood pressure 110-160 range Sodium levels may be normalized. Pantomimist following for medical management. Protonix for ulcer prophylaxis Physical therapy. (Genna Madrid) Attending Statement The exam, history, and the medical decision-making described in the above note were completed with the assistance of the mid-level provider. I reviewed and agree with the findings presented. I attest that I had a [id number] encounter with the patient on the same day, and personally performed and documented my assessment and findings in the medical record (Sherwin Meléndez MD) Genna Madrid May 13, 2016 10:04 Sherwin Meléndez MD May 13, 2016 16:35
--- NOTE | 2016-05-13 10:38 | HHI.CCPN ---
Subjective Remarks/Hospital Course SAH, unresponsive, malignant hypertension 46 year-old -[place] female with a longstanding history of hypertension, was found unresponsive at her home on 04/11. When paramedics arrived, they found her with shallow breathing and a Angelica coma scale of 3. SBP was 290. She was transported with bag mask ventilation to the emergency department where she remained unresponsive and required endotracheal intubation. CT scan of the head showed a large left hemispheric intraparenchymal hemorrhage with subarachnoid blood. 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 Pt was started on a Cardene drip and admitted to the ICU. Neurosurgery was consulted and a ventriculostomy was placed. Pt subsequently went to interventional radiology and she underwent coiling of aneurysm. Pertinent ICU Coarse: 04/12: On full vent support. ICP acceptable with drainage bloody as expected 04/13: ICP starting to rise > 20, requiring vent manipulation, increased sedation , analgesia 04/14: Intermittently ICP spiking >20, RR increased to 18, 50 mg of ro[address]onium 1. CT angiogram shows endovascular repair of left supraclinoid aneurysm, left M1 segment aneurysm stable; no vasospasm 04/15: Remains heavily sedated for ICP control 04/16: Hypoxemic - FiO2 increased to 70%. CXR shows increasing RLL infiltrate 04/17: ICP remains elevated at 22-25 04/18: Labile hypertension. BP limits expanded to 150-190 systolic. More hypoxic now on 90% FiO2 04/19: Remains critically ill with intermittent ICP elevation. 3% saline restarted and 23% saline 1 bolus ordered 04/20: ICP elevated to 31, 23% bolus given with improvement to 12-15 04/21: Remains critically ill with intermittent ICP elevation - controlled with 23% bolus. Keeping sodium 150-160 04/22: CT head shows evolving left frontoparietal hemorrhage with increasing midline shift 1.5 cm left to right. Intermittent ICP elevation responsive to 23 % saline 04/23: ICP elevation up to 27, optimized on medical therapy and hyperosmolar therapy. Prognosis very poor according to neurosurgery. Per Dr. Ruiz, patient has suffered significant dominant hemisphere frontal temporal lobe hemorrhage and consequent cerebral injury which reduces likelihood of functional recovery. Palliative care consulted 04/24: Overnight high ICP elevations up to 40s. Optimized on hyperosmolar therapy. 04/25: ICP remains high despite maximum hyperosmolar therapy. Family requests aggressive care. s/p left decompressive craniectomy by Dr. Meléndez 04/26-04/27: ICP better controlled 04-09, remains heavily sedated 04/28: Remains intubated, sedated, ICP well controlled. s/p PEG by GI. 04/29: Ventric raised to 10. s/p trach by surgery. 04/30-05/01: Starting spontaneous breathing trials. Maintain permissive hypertension for SAH vasospasm prevention 05/02: Stopped all antibiotics and antifungals. Will reculture completely and check C.Diff PCR ahead of possible PRACTICE COORDINATOR shunt placement 05/03: Diuresing well while maintaining good perfusion pressure. 05/04-05/06: Continue PSV trials; BP stable (permissive hypertension) 05/07: s/p PRACTICE COORDINATOR shunt by Dr. Meléndez. BP acceptable. Good gas exchange. 05/08: Low grade fever. Stable hemodynamics, acceptable gas exchange. 05/09: Adjust BP medications to normotensive range (goal < 160) now. Replace 2% with salt tablets 05/10: Still requiring Monica - adjusting oral anti-HTN 05/11-05/12: Tolerating PSV trials. V-P shunt site clean. Off Nicardipine drip. 05/13: On C Pap with pressure support overnight. Awake. Tongue swelling noted which has been ongoing for a while. Objective - Vital Signs Date Time Temp Pulse Resp B/P Pulse Ox O2 Delivery O2 Flow Rate FiO2 05/13/16 09:11 100 30 05/13/16 06:00 69 05/13/16 04:00 99.0 10 175/96 Intake and Output 05/12/16 05/12/16 05/13/16 08:00 16:00 00:00 Intake Total 606 ml 660 ml 523 ml Output Total 300 ml 200 ml Balance 606 ml 360 ml 323 ml Result Diagram: 05/12/16 0500 05/12/16 0500 Objective Remarks GENERAL: Chronically critically ill Middle-aged female lying in bed on mechanical ventilation HEENT: Craniotomy site remains dry. Pupils reactive. Tongue remains very swollen NECK: Supple - No resistance to motion. Trach in place, clean, dry LUNGS: Clear anteriorly with good air entry bilaterally HEART: Regular rate and rhythm. Normal S1-S2 ABDOMEN: Soft, nondistended. PEG site intact. Positive bowel sounds EXTREMITIES: Palpable pulses with warm periphery. Mild peripheral edema NEUROLOGIC: Withdraws all 4 extremities to noxious stimuli; not following commands. Spontaneous eye openings but does not track. A/P Assessment and Plan 1) Neuro / Psych Acute subarachnoid hemorrhage (left middle cerebral artery aneurysm) Large left frontal hemorrhage with Intracranial hypertension -- s/p endovascular coiling of MCA ruptured cerebral aneurysm 04/11 -- CT angiogram 04/14, 04/16, 04/22 - stable, no vasospasm. -- Patient with significant dominant hemisphere frontal temporal lobe hemorrhage and consequent cerebral injury which reduces likelihood of functional recovery -- Family request aggressive care and Dr. Meléndez performed left decompressive craniotomy 04/25 with evacuation of temporal hematoma -- All continuous sedation discontinued and PRACTICE COORDINATOR shunt placed 05/07 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 -- s/p permissive Hypertension for prevention of vasospasm in SAH patient now targeting SBP < 160 -- s/p 3 weeks of Nimotop therapy for vasospasm prevention -- Continue Norvasc 10 q day, Labetalol 600 q 8 hours -- Avoiding KISHA-I given severe tongue edema -- Recommendation for consideration of septal ablation on echo - Not a candidate for surgical intervention due to devastating neuro injury 3) Pulmonary Acute respiratory failure secondary to SAH / ICH -- s/p tracheostomy 04/29 -- Continue ACV rate 14, TV 500, PEEP 5 and 30% FiO2 -- Continue with daily PSV and trach collar trials -- Continue DuoNeb q 4 hours as needed -- CXR 05/12 - no infiltrates 4) GI / Nutrition Mild protein calorie malnutrition Isolated Alkaline phosphate elevation -- s/p PEG 04/28 -- Tolerating tube feeds (Jevity) at goal of 50 cc/hr (-25-30 kcal/kg/day) -- Pt with +++ bowel movements and not requiring bowel regimen at present 5) Renal / Metabolic Hypokalemia, Hypomagnesemia -- Bun and creatinine stable with good urine output -- Rebollar catheter in place for accurate I/Os in critically ill patient -- Supplement electrolytes as needed per replacement protocol 6) Endocrine Euglycemic and not requiring SSI at present 7) Heme Anemia of chronic inflammation / disease -- Hgb stable with no signs of active bleeding 8) ID Sepsis secondary to pneumonia and prior UTI -- Pertinent cultures: - Sputum 04/15 - E. coli, H. flu - Sputum 05/02 - Rob sensitive Acinetobacter - Urine 05/02 - E. coli - CSF 05/05 and 05/07 - negative - All previous blood cultures negative -- s/p antibiotic therapy for above pneumonia and UTI -- Currently off all anti-microbial therapy 9) Prophylaxis: GI - oral Zantac q 12 DVT - SCDs; Lovenox 40 q day 10) Rehab: PT / OT Will eventually need LTACH / SNF 11) IV Access: Peripheral iv Mike Molina MD May 13, 2016 10:38
[2016-05-14] VITALS (13 sets, daily range): BP systolic 152–170; BP diastolic 80–94; PULSE 73–83; RESP 11–32; TEMP 98.3–98.8; O2SAT 98–100
[2016-05-14] MEDS: LABETALOL HCL 100 MG/20 ML VIAL IVS PRN (03:27)
[2016-05-14] MEDS: MORPHINE SULFATE 4 MG/ML INJ IV PUSH PRN (03:27)
[2016-05-14] MEDS: CHLORHEXIDINE GLUCONATE 2 % 1 PACK (2 CLOTHS) TOP SCH ×2 (04:00→20:26)
[2016-05-14 04:32] LABS: HEMATOCRIT 32.7 % (35.0-46.0); MEAN CELL VOLUME 79.9 FL (80.0-100.0); MEAN CORPUSCULAR HEMOGLOBIN 25.6 PG (27.0-34.0); PLATELET COUNT 472 TH/MM3 (150-450); RED CELL DISTRIBUTION WIDTH 21.3 % (11.6-17.2); WHITE BLOOD COUNT 10.5 TH/MM3 (4.0-11.0)
[2016-05-14 04:37] LABS: REVIEW FLAG FINAL
[2016-05-14 04:55] LABS: BICARBONATE 27.6 MEQ/L (21.0-32.0); POTASSIUM 4.4 MEQ/L (3.5-5.1)
[2016-05-14] MEDS: LABETALOL HCL 300 MG TAB PO SCH ×3 (08:23→20:15)
[2016-05-14] MEDS: RANITIDINE HCL 150 MG TAB PO SCH ×2 (08:23→20:15)
[2016-05-14] MEDS: SODIUM CHLORIDE 0.9% FLUSH 5 ML FLUSH IVF SCH ×2 (08:23→20:15)
[2016-05-14] MEDS: ENOXAPARIN SODIUM 40 MG/0.4 ML SYRINGE SQ SCH (08:23)
--- NOTE | 2016-05-14 09:40 | HHI.NSPN ---
(Genna Madrid) History Chief Complaint: status post coil for aneurysm (Genna Madrid) Interval History 04/12/16: Patient had an aneurysm coiled yesterday, intubated and sedated, ICP stable overnight 04/13/16: Increased ICP overnight, improved after a 23% saline bolus 04/14/16: ICP stable overnight 04/15/16: ICP stable, CTA stable no vasospasm 04/16/16: ICP slight increase overnight now stabilized, intubated and sedated 04/17/16: ICP increased yesterday afternoon, repeat CTA and CT stable, no vasospasm, no new hemorrhage, hypothermia overnight 04/21/16: increasing ICP over the weekend, getting 23% every 6 hours PRN. 04/22/16: ICP responding over night to 23% saline, CT and CTA planned this am. Nimbex off since yesterday. 04/23/16: ICP stable overnight, SBP increasing today RN adjusting pressors, HGB improved after 2 units of PRBC, no signs of active bleeding 04/24/16: ICP increased overnight with stimulation but not sustained, low HGB again today receiving PRBC this am 04/25/16: ICP max 38 overnight, currently 10, no family at bedside. 04/26/16: She has ventriculostomy drain in place. She underwent left decompressive craniectomy yesterday 04/[address] Meléndez due to elevated ICPs. Today, ICPs improved, currently 4. 04/27/16: intermittent spikes in ICPs overnight in low 20's controlled with hyperosmotic bolus. Currently 9. well sedated. 04/28/16: ICP stable between 9-14 per RN. EVD draining blood tinged CSF, flap firm non-pulsatile 04/29/16: ICP stable overnight, PEG yesterday, Trach today. 04/30/16: EVD clamped 05/01/16: EVD clamped, ICP max 17, currently 14. 05/02/16: EVD draining, ICP 9, no sedation 05/03/16: Pt with eyes open. Not following commands. Pupils 4mm bilaterally reactive bilaterally. Ventriculostomy in place at [id number]. ICP 8. 9: Pt with eyes open. Not following commands. Pupils 4mm bilaterally reactive bilaterally. Ventriculostomy in place at [id number]. ICP 8. 9: Day 24 after PCOM aneurysm bleed and coiling, Pupils reactives, eyes now open and she is more alert. EVD was clamped this am, remains straw coloured. 05/06/16: eyes open, very mild flexion to deep pain in the upper extremities. 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 for CORRESPONDENCE REVIEW CLERK shunt placement 05/08/16: POD 1 from shunt placement, eyes open, does not track 05/09/16: POD 2 no withdrawal on exam today and eyes are more deviated 05/10/16: EEG negative for seizures yesterday, labile HTN, stable neuro hoff 05/11/16: no changes overnight 05/12/16: no changes per nurse 05/13/16: stable overnight 05/14/16: stable overnight, increase angioedema (Genna Madrid) Exam Results Vital Signs Date Time Temp Pulse Resp B/P Pulse Ox O2 Delivery O2 Flow Rate FiO2 05/14/16 08:26 99 T-piece 5.00 28 05/14/16 06:00 75 05/14/16 04:00 98.6 29 160/83 Intake and Output 05/13/16 05/13/16 05/14/16 08:00 16:00 00:00 Intake Total 506 ml 563 ml 656 ml Output Total 100 ml 25 ml Balance 406 ml 563 ml 631 ml (Genna Madrid) Physical Examination Ventilated via tracheostomy. Continues to have severe angioedema. Tongue appears lacerated through the middle, dental guard in place. Mild bleeding. Spontaneous eye opening. Disconjugate gaze. Tracks with eyes. Flap is sunken. Incision are dry and intact. No erythema, edema or drainage. No withdrawal x 4 to deep pain. RN has seen some spontaneous movement. Bilateral podus boots and SCD's in place in LE (Genna Madrid) Lab, Micro, Other Results Last Impressions Chest X-Ray 05/12/16 0600 Signed Impressions: Service Date/Time: Thursday, May 12, 2016 03:00 - CONCLUSION: Normal examination. Sunny A. Sevigny, MD Head CT 05/12/16 0000 Signed Impressions: Service Date/Time: Thursday, May 12, 2016 15:16 - CONCLUSION: 1. No lesion of the left middle cerebral artery infarct with marked reduction in the mass effect and the brain recommend now below the level of the craniectomy. 2. No acute hemorrhage is identified. Alessandro Schultz MD Skull X-Ray 05/08/16 0000 Signed Impressions: Service Date/Time: May 10:16 - CONCLUSION: Shunt set to 70-80 mm H2O. Fei Snyder MD Head CTA 05/02/16 0600 Signed Impressions: Service Date/Time: Monday, May 02, 2016 04:32 - CONCLUSION: Satisfactory appearance post aneurysm coiling Fei Snyder MD Abdomen/Pelvis CT 04/24/16 1416 Signed Impressions: Service Date/Time: March 14:39 - CONCLUSION: Mild small bowel ileus with scattered air-fluid levels. Bibasilar lung consolidation with associated small effusions. Significant soft tissue fluid accumulation with edematous changes throughout the abdominal wall. Nasogastric tube in good position. Saqib Garcia MD Neck CTA 04/11/16 1151 Signed Impressions: Service Date/Time: Monday, April 11, 2016 12:01 - CONCLUSION: Negative for hemodynamically significant carotid stenosis. Ricardo Castellanos MD FACR Cerebral Arteriogram 04/11/16 0000 Signed Impressions: Service Date/Time: Monday, April 11, 2016 14:18 - CONCLUSION: 1. 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 This is the aneurysm felt responsible for the intracranial hemorrhage. 2. Small 4 mm left M1 segment aneurysm. Attempts at embolizing this aneurysm were unsuccessful due to the broad based nature of the aneurysm. Endovascular repair of this aneurysm could not be performed. Kennedy Thibodeaux Jr., MD Laboratory Tests Test 05/14/16 04:00 White Blood Count 10.5 TH/MM3 Red Blood Count 4.10 MIL/MM3 Hemoglobin 10.5 GM/DL Hematocrit 32.7 % Mean Corpuscular Volume 79.9 FL Mean Corpuscular Hemoglobin 25.6 PG Mean Corpuscular Hemoglobin 32.0 % Concent Red Cell Distribution Width 21.3 % Platelet Count 472 TH/MM3 Mean Platelet Volume 7.6 FL Sodium Level 140 MEQ/L Potassium Level 4.4 MEQ/L Chloride Level 104 MEQ/L Carbon Dioxide Level 27.6 MEQ/L Anion Gap 8 MEQ/L Blood Urea Nitrogen 10 MG/DL Creatinine 0.39 MG/DL Estimat Glomerular Filtration 212 ML/MIN Rate Random Glucose 100 MG/DL Calcium Level 9.4 MG/DL Phosphorus Level 4.4 MG/DL Magnesium Level 2.0 MG/DL (Genna Madrid) Medical Decision Making Impression and Plan Impression: 1. Neurologic exam stable following endovascular coiling of ruptured cerebral aneurysm with subsequent left decompressive craniotomy 04/14/16 CT angiogram stable: Status post endovascular repair of left supraclinoid aneurysm. Left M1 segment aneurysm stable 04/16/[address] and CTA stable. No vasospasm, no new hemorrhage. 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 Midline shift has resolved but there is persistent herniation of brain at the craniotomy defect. No new or acute blood demonstrated. Mild to moderate ventriculomegaly, increased. Codman Valve adjusted to [id number]. 05/09/16: stable head CT, improving ventriculomegaly 05/09/16: Negative EEG 05/12/16: Head CT stable Plan: consult oral/facial surgeons for severe angioedema and tongue laceration. D/W marriage counselor Follow up head CT next week OR planned for replacement of skull flap next . Continue tube feeds as tolerated. Lovenox for DVT prophylaxis Maintain systolic blood pressure 110-160 range Sodium levels may be normalized. Handbag Parts Cutter following for medical management. Protonix for ulcer prophylaxis Physical therapy. (Genna Madrid) Attending Statement On the date of this note, the undersigned had a [id number] encounter with the patient. I personally examined the patient, obtained pertinent history, and reviewed the electronic medical record including pertinent laboratory results and imaging studies. I personally developed the treatment plan and perform medical decision making. All of the above was performed in the presence of the physician's assistant center manager, who has scribed my findings into the medical record as noted above. Examination of the patient's tongue today indicates that it is centrally transected. OMFS consult requested. Discussed with marriage counselor today. (Sherwin Meléndez MD) Genna Madrid May 14, 2016 09:40 Sherwin Meléndez MD May 14, 2016 19:06
--- NOTE | 2016-05-14 09:50 | HHI.CCPN ---
Subjective Remarks/Hospital Course SAH, unresponsive, malignant hypertension 46 year-old -[place] female with a longstanding history of hypertension, was found unresponsive at her home on 04/11. When paramedics arrived, they found her with shallow breathing and a Angelica coma scale of 3. SBP was 290. She was transported with bag mask ventilation to the emergency department where she remained unresponsive and required endotracheal intubation. CT scan of the head showed a large left hemispheric intraparenchymal hemorrhage with subarachnoid blood. 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 Pt was started on a Cardene drip and admitted to the ICU. Neurosurgery was consulted and a ventriculostomy was placed. Pt subsequently went to interventional radiology and she underwent coiling of aneurysm. Pertinent ICU Coarse: 04/12: On full vent support. ICP acceptable with drainage bloody as expected 04/13: ICP starting to rise > 20, requiring vent manipulation, increased sedation , analgesia 04/14: Intermittently ICP spiking >20, RR increased to 18, 50 mg of rocuronium 1. CT angiogram shows endovascular repair of left supraclinoid aneurysm, left M1 segment aneurysm stable; no vasospasm 04/15: Remains heavily sedated for ICP control 04/16: Hypoxemic - FiO2 increased to 70%. CXR shows increasing RLL infiltrate 04/17: ICP remains elevated at 22-25 04/18: Labile hypertension. BP limits expanded to 150-190 systolic. More hypoxic now on 90% FiO2 04/19: Remains critically ill with intermittent ICP elevation. 3% saline restarted and 23% saline 1 bolus ordered 04/20: ICP elevated to 31, 23% bolus given with improvement to 12-15 04/21: Remains critically ill with intermittent ICP elevation - controlled with 23% bolus. Keeping sodium 150-160 04/22: CT head shows evolving left frontoparietal hemorrhage with increasing midline shift 1.5 cm left to right. Intermittent ICP elevation responsive to 23 % saline 04/23: ICP elevation up to 27, optimized on medical therapy and hyperosmolar therapy. Prognosis very poor according to neurosurgery. Per Dr. Ruiz, patient has suffered significant dominant hemisphere frontal temporal lobe hemorrhage and consequent cerebral injury which reduces likelihood of functional recovery. Palliative care consulted 04/24: Overnight high ICP elevations up to 40s. Optimized on hyperosmolar therapy. 04/25: ICP remains high despite maximum hyperosmolar therapy. Family requests aggressive care. s/p left decompressive craniectomy by Dr. Meléndez 04/26-04/27: ICP better controlled 04-09, remains heavily sedated 04/28: Remains intubated, sedated, ICP well controlled. s/p PEG by GI. 04/29: Ventric raised to 10. s/p trach by surgery. 04/30-05/01: Starting spontaneous breathing trials. Maintain permissive hypertension for SAH vasospasm prevention 05/02: Stopped all antibiotics and antifungals. Will reculture completely and check C.Diff PCR ahead of possible SHELL MOLD BONDER shunt placement 05/03: Diuresing well while maintaining good perfusion pressure. 05/04-05/06: Continue PSV trials; BP stable (permissive hypertension) 05/07: s/p SHELL MOLD BONDER shunt by Dr. Meléndez. BP acceptable. Good gas exchange. 05/08: Low grade fever. Stable hemodynamics, acceptable gas exchange. 05/09: Adjust BP medications to normotensive range (goal < 160) now. Replace 2% with salt tablets 05/10: Still requiring Monica - adjusting oral anti-HTN 05/11-05/12: Tolerating PSV trials. V-P shunt site clean. Off Nicardipine drip. 05/13: On C Pap with pressure support overnight. Awake. Tongue swelling noted which has been ongoing for a while. 05/14: Remains on mechanical ventilation via tracheostomy. Significant tongue swelling with laceration noted. Objective - Vital Signs Date Time Temp Pulse Resp B/P Pulse Ox O2 Delivery O2 Flow Rate FiO2 05/14/16 08:26 99 T-piece 5.00 28 05/14/16 06:00 75 05/14/16 04:00 98.6 29 160/83 Intake and Output 05/13/16 05/13/16 05/14/16 08:00 16:00 00:00 Intake Total 506 ml 563 ml 656 ml Output Total 100 ml 25 ml Balance 406 ml 563 ml 631 ml Result Diagram: 05/14/1639905/14/16399 Objective Remarks GENERAL: Chronically critically ill Middle-aged female lying in bed on mechanical ventilation HEENT: Craniotomy site remains dry. Pupils reactive. Tongue remains very swollen with laceration NECK: Supple - No resistance to motion. Trach in place, clean, dry LUNGS: Clear anteriorly with good air entry bilaterally HEART: Regular rate and rhythm. Normal S1-S2 ABDOMEN: Soft, nondistended. PEG site intact. Positive bowel sounds EXTREMITIES: Palpable pulses with warm periphery. Mild peripheral edema NEUROLOGIC: Withdraws all 4 extremities to noxious stimuli; not following commands. Spontaneous eye openings but does not track. A/P Assessment and Plan 1) Neuro / Psych Acute subarachnoid hemorrhage (left middle cerebral artery aneurysm) Large left frontal hemorrhage with Intracranial hypertension -- s/p endovascular coiling of MCA ruptured cerebral aneurysm 04/11 -- CT angiogram 04/14, 04/16, 04/22 - stable, no vasospasm. -- Patient with significant dominant hemisphere frontal temporal lobe hemorrhage and consequent cerebral injury which reduces likelihood of functional recovery -- Family request aggressive care and Dr. Meléndez performed left decompressive craniotomy 04/25 with evacuation of temporal hematoma -- All continuous sedation discontinued and SHELL MOLD BONDER shunt placed 05/07 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 -- s/p permissive Hypertension for prevention of vasospasm in SAH patient now targeting SBP < 160 -- s/p 3 weeks of Nimotop therapy for vasospasm prevention -- Continue Norvasc 10 q day, Labetalol 600 q 8 hours -- Avoiding KISHA-I given severe tongue edema -- Recommendation for consideration of septal ablation on echo - Not a candidate for surgical intervention due to devastating neuro injury 3) Pulmonary Acute respiratory failure secondary to SAH / ICH -- s/p tracheostomy 04/29 -- Continue ACV rate 14, TV 500, PEEP 5 and 30% FiO2 -- Continue with daily PSV and trach collar trials -- Continue DuoNeb q 4 hours as needed -- CXR 05/12 - no infiltrates 4) GI / Nutrition Mild protein calorie malnutrition Isolated Alkaline phosphate elevation -- s/p PEG 04/28 -- Tolerating tube feeds (Jevity) at goal of 50 cc/hr (-25-30 kcal/kg/day) -- Pt with +++ bowel movements and not requiring bowel regimen at present 5) Renal / Metabolic Hypokalemia, Hypomagnesemia -- Bun and creatinine stable with good urine output -- Rebollar catheter in place for accurate I/Os in critically ill patient -- Supplement electrolytes as needed per replacement protocol 6) Endocrine Euglycemic and not requiring SSI at present 7) Heme Anemia of chronic inflammation / disease -- Hgb stable with no signs of active bleeding 8) ID Sepsis secondary to pneumonia and prior UTI -- Pertinent cultures: - Sputum 04/15 - E. coli, H. flu - Sputum 05/02 - Rob sensitive Acinetobacter - Urine 05/02 - E. coli - CSF 05/05 and 05/07 - negative - All previous blood cultures negative -- s/p antibiotic therapy for above pneumonia and UTI -- Currently off all anti-microbial therapy Discussed with neurosurgery Dr. Sutton. Placing consult for OMFS for lacerated tongue with significant swelling. 9) Prophylaxis: GI - oral Zantac q 12 DVT - SCDs; Lovenox 40 q day 10) Rehab: PT / OT Will eventually need LTACH / SNF 11) IV Access: Peripheral iv Mike Molina MD May 14, 2016 09:50
[2016-05-14] MEDS: DEXAMETHASONE SOD PHOS 4 MG/ML VIAL IV PUSH SCH ×3 (13:41→23:49)
--- NOTE | 2016-05-14 14:57 | HHI.HCPN ---
Reason for visit a. To assist with evaluation and management of symptoms including: encephalopathy b. To assist medical decision maker(s) with: better understanding of current medical conditions; weighing benefits/burdens of medical treatment options; making medical treatment decisions. Subjective/Interval History Patient seen today to follow-up on goals, comfort. S/p craniotomy 04/26, s/p tracheostomy, s/p PEG placement, s/p VENDING MACHINE OPERATOR shunt on . No significant changes in neuro assessment. Stable, not requiring IV drips other than IVF. Tolerating trach to T-piece today, yesterday, 28% fio2. Has had ongoing angio edema, orofacial surgery consulted today for ulceration/ laceration to tongue. Cannot do repair/surgical intervention until edema improves- started on scheduled IV decadron. CXR earlier this week stable. Planned for OR for bone flap replacement next week.OR planned for replacement of skull flap next D/c planning in process- CM assisting with. Per CM, SSI pending, pt does not have financial coverage yet for fpc placement. Patient seen in room no family present. Eyes open, looking around room,does not track examiner. Does not follow commands. Questionable withdrawal to pain left upper, no withdrawal to other extremities. Tongue noted to be pink, very edematous protruding out of mouth, no drainage currently visible. History brought forward from initial consult by Jillian AKBAR on 04/22/16: This 46 year old female presented to the ED on 04/11/16, apparently found on the ground unresponsive by family members, EMS was activated. EMS found her with a GCS of 3 and blood pressure to 90 systolic. She required respiratory ventilation support. She was unresponsive and unable to provide additional history. * She was intubated on arrival to the ED. Cardene was initiated for hypotension. CT brain obtained for suspected hemorrhage, CT brain indicates large left hemispheric intraparenchymal hemorrhage with subarachnoid blood. Suspected MCA aneurysm rupture, CTA head and neck pending. Neurosurgery consulted. Admitted to the ICU ,emergent ventriculostomy placement by neuro. * Neuro exam notes absent deep tendon reflexes, no withdrawal to stimuli weak cough reflex pupils 2 mm and nonreactive. Prognosis guarded given significant areas of hemorrhage--cerebral angiogram indicates to aneurysm. Planned for interventional radiology for attempted coiling. Initiated on Keppra, pneumatized. * 04/11 to IR for attempting coiling of 2 aneurysms. Large and most complex involves left posterior cerebral origin. Successful coil embolization of the largest aneurysm. Attempted coiling embolization of other M1 aneurysm on left not successful unable to treat at aneurysm via endovascular methods. * 04/13 ICP increasing, > 20, cerebral edema, requiring ventilator adjustments, increased sedation and analgesia--received 23% saline bolus //neurosurgery discussed with patient's family at bedside * 04/15 continues to require heavy sedation for ICP control, somewhat improved on sedation. Repeat CT angiogram indicated status post endovascular repair left aneurysm left M1 segment stable no vasospasm. * 04/16 hypoxemic FiO2 increased to 70%, CXR= lower lobe infiltrate, sputum+ or negative rods. Clinical exam: Pulse 2 mm nonreactive. No withdrawal 4 extremities. * 04/17 ICP elevated, hypothermic? Related to sepsis, pancultures pending, on Vanco --- later initiated on paralytics * 04/21 still critically ill on mechanical vent. Intermittent ICP elevations. Requiring 23% saline boluses. Paralytic Nimbex DC'd. Repeat CT angiogram planned for 04/22 * 04/22EEG no seizure activity noted. Slightly asynchrony no focal abnormality. CTA head 04/22 no vasospasm some perfusion. Palliative care consulted by neuro to assist family with clarification of goals of treatment. Hemoglobin low 6.8, ordered for RBC transfusion-Bumex 1 following. WBC 14.3. Patient seen in room no visitors present. Nursing indicates no family in as of yet today. She is sedated on mechanical vent, critically ill-appearing. Nonresponsive to my exam, no gag reflex when nursing provide suction during my exam. Currently on Cardene drip, Versed drip at 10 mg an hour, Diprivan drip at 15 mics/kg/minute, fentanyl drip at 250 mcgs/ hour, 3% saline at 40 mL/ hour and receiving second unit rbc's today. Primary nurse informs neurosurgery Dr. Ruiz by shortly before my exam and they indicated no plans for surgical intervention at this time. Following exam call to daughter, provided brief general medical update, assessment overview, arranged to meet with her tomorrow Thursday04/23/16 around 9:45 AM. Family/friend interactions following exam call to dtr Anthony Hoskins, provided update on current assessments, diagnostics, tongue edema, oral surgery eval, probable trajectory and d/c planning. All questions answered. She has palliative contact information. Goals remain aggressive. Advance Directives Living Will: Never completed Health Care Surrogate: Never completed Durable Power of Book Cleaner: Never completed Objective Vital Signs Date Time Temp Pulse Resp B/P Pulse Ox O2 Delivery O2 Flow Rate FiO2 05/14/16 12:00 98.5 80 26 163/90 98 05/14/16 12:00 80 05/14/16 10:00 83 05/14/16 08:26 99 T-piece 5.00 28 05/14/16 08:00 98.4 76 25 156/85 98 05/14/16 08:00 76 05/14/16 06:00 75 05/14/16 04:00 98.6 78 29 160/83 99 05/14/16 04:00 78 05/14/16 02:00 74 05/14/16 00:00 98.6 76 32 167/94 100 05/14/16 00:00 76 05/13/16 22:00 72 05/13/16 20:00 79 05/13/16 20:00 99.3 76 34 188/107 99 05/13/16 19:56 99 T-piece 28 05/13/16 18:00 88 05/13/16 16:00 86 05/13/16 16:00 98.9 86 28 141/72 98 Intake & Output 05/14/16 05/14/16 07:00 19:00 Intake Total 1307 ml Output Total 25 ml Balance 1282 ml IV Total 169 ml Tube Feeding 958 ml Other 180 ml Stool Total 25 ml # Voids 5 Physical Exam CONSTITUTIONAL/GENERAL: This is an adequately nourished patient, in no apparent distress, eyes open, non-interactive with examiner TUBES/LINES/DRAINS: Peripheral IV x2 RU upper extremity, Rebollar catheter, rectal drain, healing incision top of head, trach tube, PEG tube EYES: Pupils: 3 mm, sluggish reaction to light. Disconjugate gaze. No scleral icterus. No injection or drainage. Fundi not examined. CARDIOVASCULAR: Regular rate and rhythm,+murmur. Peripheral pulses symmetric.+ Generalized edema. RESPIRATORY/CHEST: Symmetric, unlabored respirations via trach to T piece, 28% FiO2, Coarse air movement throughout. GASTROINTESTINAL: Abdomen soft, unable to assess tenderness, nondistended. Bowel sounds normoactive. Tube feeding infusing via PEG. + Liquid stool present in rectal drain. GENITOURINARY: Without palpable bladder distension. Rebollar catheter in place clear yellow urine. NEUROLOGICAL: Eyes open spontaneously. Disconjugate gaze. Does not track examiner. Pupils with sluggish reaction to light. Slight withdrawal left upper extremity to pain, no response with pain to other extremities. PSYCHIATRIC: unable to assess due to clinical condition. No apparent anxiety or tachypnea. Diagnostic Tests Laboratory Laboratory Tests Test 05/12/16 05/14/16 05:00 04:00 White Blood Count 13.8 TH/MM3 10.5 TH/MM3 (4.0-11.0) (4.0-11.0) Red Blood Count 3.49 MIL/MM3 4.10 MIL/MM3 (4.00-5.30) (4.00-5.30) Hemoglobin 8.8 GM/DL 10.5 GM/DL (11.6-15.3) (11.6-15.3) Hematocrit 27.5 % 32.7 % (35.0-46.0) (35.0-46.0) Mean Corpuscular Volume 78.9 FL 79.9 FL (80.0-100.0) (80.0-100.0) Mean Corpuscular Hemoglobin 25.2 PG 25.6 PG (27.0-34.0) (27.0-34.0) Mean Corpuscular Hemoglobin 31.9 % 32.0 % Concent (32.0-36.0) (32.0-36.0) Red Cell Distribution Width 21.6 % 21.3 % (11.6-17.2) (11.6-17.2) Platelet Count 430 TH/MM3 472 TH/MM3 (150-450) (150-450) Mean Platelet Volume 8.0 FL 7.6 FL (7.0-11.0) (7.0-11.0) Sodium Level 140 MEQ/L 140 MEQ/L (136-145) (136-145) Potassium Level 3.8 MEQ/L 4.4 MEQ/L (3.5-5.1) (3.5-5.1) Chloride Level 103 MEQ/L 104 MEQ/L (98-107) (98-107) Carbon Dioxide Level 29.7 MEQ/L 27.6 MEQ/L (21.0-32.0) (21.0-32.0) Anion Gap 7 MEQ/L (5-15) 8 MEQ/L (5-15) Blood Urea Nitrogen 10 MG/DL (7-18) 10 MG/DL (7-18) Creatinine 0.41 MG/DL 0.39 MG/DL (0.50-1.00) (0.50-1.00) Estimat Glomerular Filtration 200 ML/MIN 212 ML/MIN Rate (>89) (>89) Random Glucose 112 MG/DL 100 MG/DL (74-106) (74-106) Calcium Level 8.7 MG/DL 9.4 MG/DL (8.5-10.1) (8.5-10.1) Phosphorus Level 3.9 MG/DL 4.4 MG/DL (2.5-4.9) (2.5-4.9) Magnesium Level 1.4 MG/DL 2.0 MG/DL (1.5-2.5) (1.5-2.5) Total Bilirubin 0.4 MG/DL (0.2-1.0) Aspartate Amino Transf 35 U/L (15-37) (AST/SGOT) Alanine Aminotransferase 53 U/L (10-53) (ALT/SGPT) Alkaline Phosphatase 259 U/L (45-117) Total Protein 6.2 GM/DL (6.4-8.2) Albumin 2.0 GM/DL (3.4-5.0) Result Diagram: 05/14/16 0400 05/14/16 0400 Imaging Last Impressions Chest X-Ray 05/12/16 0600 Signed Impressions: Service Date/Time: Thursday, May 12, 2016 03:00 - CONCLUSION: Normal examination. Sunny Berger MD Head CT 05/12/16 0000 Signed Impressions: Service Date/Time: Thursday, May 12, 2016 15:16 - CONCLUSION: 1. No lesion of the left middle cerebral artery infarct with marked reduction in the mass effect and the brain recommend now below the level of the craniectomy. 2. No acute hemorrhage is identified. Alessandro Schultz MD Skull X-Ray 05/08/16 0000 Signed Impressions: Service Date/Time: May 10:16 - CONCLUSION: Shunt set to 70-80 mm H2O. Fei Snyder MD Head CTA 05/02/16 0600 Signed Impressions: Service Date/Time: Monday, May 02, 2016 04:32 - CONCLUSION: Satisfactory appearance post aneurysm coiling Fei Snyder MD Abdomen/Pelvis CT 04/24/16 1416 Signed Impressions: Service Date/Time: March 14:39 - CONCLUSION: Mild small bowel ileus with scattered air-fluid levels. Bibasilar lung consolidation with associated small effusions. Significant soft tissue fluid accumulation with edematous changes throughout the abdominal wall. Nasogastric tube in good position. Saqib Garcia MD Neck CTA 04/11/16 1151 Signed Impressions: Service Date/Time: Monday, April 11, 2016 12:01 - CONCLUSION: Negative for hemodynamically significant carotid stenosis. Ricardo Castellanos MD FACR Cerebral Arteriogram 04/11/16 0000 Signed Impressions: Service Date/Time: Monday, April 11, 2016 14:18 - CONCLUSION: 1. 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 This is the aneurysm felt responsible for the intracranial hemorrhage. 2. Small 4 mm left M1 segment aneurysm. Attempts at embolizing this aneurysm were unsuccessful due to the broad based nature of the aneurysm. Endovascular repair of this aneurysm could not be performed. 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 Assessment and Plan Disease Oriented Problem List: (1) Acute spontaneous subarachnoid intracranial hemorrhage (2) Cerebral aneurysm rupture (3) Hypertension Symptom Scale: (1) Dyspnea Comment: Intubated for airway protection (2) Encephalopathy Comment: MCA hemorrhage, status post aneurysm rupture, status post IR coiling, status post decompressive craniotomy (3) Malnutrition Comment: +OGT, will require longer term feeding tube to meet nutritional requirements--plan for PEG tube Pertinent Non-Medical Issues Psychosocial:Previously lived in the [facility] area. Moved back to [place] around 2009. supported by adult daughter, and multiple siblings. Spiritual:Mandaen, well supported by pastors known to them. Legal:Patient is not able to participate in decision-making due to clinical condition, not clear that she will regain this ability. She is not . Per [place] statutes legal decision making would fall to her 1 adult daughter, who is supported by pt multiple siblings. Ethical issues impacting care: Important Contacts Solo Hoskins (daughter) [phone] Donna [id number] Brother Fei Pride [phone] Brother Kenn Pride Brother Jared Pride Brother Jamil Ellington . 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 Status post coiling of one aneurysm. Continues to have elevated ICPs and poor neuro exam. S/P craniotomy due to labile ICP and worsening edema. Will likely require prolonged hospital course and will be high risk for further complications/setbacks while supportive care continues. S /P tracheostomy and PEG tube placement to allow for continued ongoing aggressive treatment. Not expected to regain independent function, will likely have significant deficits if she can survive acute course and may remain dependent for care. Code Status: Full Code Plan * Of note ,during prior interactions , family reported they have a family member who is reported to have "coded 10 times following the same type of hemorrhage" and is now "doing fine"-- this will likely inform their decision making. * 05/14/16: provided medical update to dtr Anthony Hoskins. Goals remain aggressive. * Full code * Legal decision maker- Per [place] statutes adult daughter Solo Hoskins= legal decision maker. She also supported by pt's multiple siblings. * Symptoms: --Encephalopathy-s/p MCA hemorrhage, status post aneurysm rupture, status post IR coiling//ICPs remaining elevated --->status post decompressive craniotomy left frontal temporal parietal 04/26--> s/p VENDING MACHINE OPERATOR shunt. stable, no significant improvement in neuro status . will require fpc care. --Dyspnea- intubated for airway protection, status post tracheostomy, now tolerating trach to T piece --malnutrition -status post PEG placement; tolerating tube feeding, having bowel movements --Edema-ongoing tongue edema, angioedema. Has been started on scheduled IV sterile rates, oral surgery following and evaluating, no interventions planned at this time, swelling needs to improve before can consider further interventions. No reported symptoms of pain, though this could be a potential source of pain for patient. * Palliative care will continue to follow during hospital course as condition evolves, to assist patient/decision-maker with understanding of medical conditions, weighing benefits/burdens of treatment options, for clarification of goals of treatment. Additionally will assist with any symptoms of palliative concern Time Spent Total Floor Time (mins): 20 Attestation To help prompt me to consider important information that might be impacting today's encounter and assessment, information from prior notes written by myself or my colleagues may have been "brought forward" into today's note. My signature on this note, however, is an attestation that I personally performed the exam, history, and/or decision-making noted today, and, unless otherwise indicated, the interactions with patient, family, and staff as well as the review of records all occurred today. I also attest that the listed assessment and stated plan reflect my best clinical judgment today based on the combination of historical information, prior notes, and today's exam/ interactions. When time spent is documented, it refers only to time spent today by the signer, or if indicated, combined time spent today by collaborating physician/nurse practitioner. Ashley Wharton May 14, 2016 14:57
--- NOTE | 2016-05-14 16:30 | MB ---
cc: MARTHABUDDYYOLANDA DMD DATE OF CONSULTATION: 05/14/2016. REASON FOR CONSULTATION: Tongue edema / tongue laceration. HISTORY OF PRESENT ILLNESS: This is a 46-year-old -[place] female who was found unresponsive at home on April 11, 2016. She has got past history of hypertension. Family history of cerebral artery aneurysm. She has had no surgical intervention already. I have seen the patient. She has a trach collar right now. She does not follow much commands at this point. The patient's nurse is at bedside. It appears that the tongue edema has been going on for the past several days with the tongue laceration that has been going on for the past several days. Oral maxillofacial surgery was consulted evaluation. PAST MEDICAL HISTORY: 1. Hypertension. MEDICATIONS: 1. Lisinopril. 2. Carvedilol. 3. Naprosyn. ALLERGIES: DENIED. PAST SURGICAL HISTORY: 1. Eye surgery. 2. Ectopic . PHYSICAL EXAMINATION: VITAL SIGNS: Temperature is 98.5. Pulse is 80, respirations 22, blood pressure 160/98, oxygen saturation of 98%. The patient is on mechanical ventilation with a tracheostomy. The tongue is fci out of the mouth. She has got a bite guard on the upper and the lower teeth to protect the tongue. There is no gross active heme that is noted at this point. The tongue is protruding out of the mouth. It is fat and it is edematous and it is firm. It is pink and well-perfused. It is warm to the touch. There is a laceration on the dorsum of the tongue from the corner to the corner but it is not through and through. Checking again on the ventral surface of the tongue, she has a little more of a deeper cut on the ventral surface of the tongue as much I am able to see and manipulate at this point my examination. Trauma is more severe underneath the tongue on the ventral surface than on the superior aspect. LABORATORY DATA: White count is 10.0, hemoglobin is 10.5 and hematocrit is 32.5 with a platelet count of 472,000. PT on the 04 of May was 10.7. INR was 11.1 with a PTT of 30.4. IMPRESSION AND PLAN: This is a 46-year-old female who is status post a brain bleed, no of no surgical intervention now with a sudden onset for the past several days of tongue swelling. Tongue laceration secondary to the biting from upper teeth secondary to the edema. The tongue is well-perfused at this point but it is hard and it is firm and it protruding out of the mouth. It is enlarged in size. We will wait for at the swelling of the tongue to decrease prior to any surgical intervention otherwise the patient will go right back and bite right back into the same site and tear away the same sutures that reapproximate the tongue. Also because of the gross enlargement of the tongue, trying to reapproximate the wounds may not be the most conducive part of treatment at this point. Will wait for the swelling to come down and then take the patient to the main operating room and stabilize the tongue. For now, it is pink and healthy and well-perfused. Yolanda Booth DMD RRT/WAYNE /12:36 PM /4:13 PM JONATAN
[2016-05-15] VITALS (14 sets, daily range): BP systolic 155–170; BP diastolic 88–95; PULSE 72–93; RESP 22–29; TEMP 98.1–98.6; O2SAT 95–100
[2016-05-15] MEDS: LABETALOL HCL 300 MG TAB PO SCH ×3 (05:37→20:53)
[2016-05-15] MEDS: DEXAMETHASONE SOD PHOS 4 MG/ML VIAL IV PUSH SCH ×3 (05:38→17:59)
[2016-05-15] MEDS: RANITIDINE HCL 150 MG TAB PO SCH ×2 (08:11→20:53)
[2016-05-15] MEDS: ENOXAPARIN SODIUM 40 MG/0.4 ML SYRINGE SQ SCH (08:11)
[2016-05-15] MEDS: SODIUM CHLORIDE 0.9% FLUSH 5 ML FLUSH IVF SCH ×2 (08:12→20:54)
--- NOTE | 2016-05-15 09:08 | HHI.NSPN ---
(Genna Madrid) History Chief Complaint: status post coil for aneurysm (Genna Madrid) Interval History 04/12/16: Patient had an aneurysm coiled yesterday, intubated and sedated, ICP stable overnight 04/13/16: Increased ICP overnight, improved after a 23% saline bolus 04/14/16: ICP stable overnight 04/15/16: ICP stable, CTA stable no vasospasm 04/16/16: ICP slight increase overnight now stabilized, intubated and sedated 04/17/16: ICP increased yesterday afternoon, repeat CTA and CT stable, no vasospasm, no new hemorrhage, hypothermia overnight 04/21/16: increasing ICP over the weekend, getting 23% every 6 hours PRN. 04/22/16: ICP responding over night to 23% saline, CT and CTA planned this am. Nimbex off since yesterday. 04/23/16: ICP stable overnight, SBP increasing today RN adjusting pressors, HGB improved after 2 units of PRBC, no signs of active bleeding 04/24/16: ICP increased overnight with stimulation but not sustained, low HGB again today receiving PRBC this am 04/25/16: ICP max 38 overnight, currently 10, no family at bedside. 04/26/16: She has ventriculostomy drain in place. She underwent left decompressive craniectomy yesterday 04/[address] Meléndez due to elevated ICPs. Today, ICPs improved, currently 4. 04/27/16: intermittent spikes in ICPs overnight in low 20's controlled with hyperosmotic bolus. Currently 9. well sedated. 04/28/16: ICP stable between 9-14 per RN. EVD draining blood tinged CSF, flap firm non-pulsatile 04/29/16: ICP stable overnight, PEG yesterday, Trach today. 04/30/16: EVD clamped 05/01/16: EVD clamped, ICP max 17, currently 14. 05/02/16: EVD draining, ICP 9, no sedation 05/03/16: Pt with eyes open. Not following commands. Pupils 4mm bilaterally reactive bilaterally. Ventriculostomy in place at [id number]. ICP 8. 9: Pt with eyes open. Not following commands. Pupils 4mm bilaterally reactive bilaterally. Ventriculostomy in place at [id number]. ICP 8. 9: Day 24 after PCOM aneurysm bleed and coiling, Pupils reactives, eyes now open and she is more alert. EVD was clamped this am, remains straw coloured. 05/06/16: eyes open, very mild flexion to deep pain in the upper extremities. 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 for [employer] shunt placement 05/08/16: POD 1 from shunt placement, eyes open, does not track 05/09/16: POD 2 no withdrawal on exam today and eyes are more deviated 05/10/16: EEG negative for seizures yesterday, labile HTN, stable neuro hoff 05/11/16: no changes overnight 05/12/16: no changes per nurse 05/13/16: stable overnight 05/14/16: stable overnight, increase angioedema 05/15/16: stable overnight, angioedema slightly improved with Decadron (Genna Madrid) Exam Results Vital Signs Date Time Temp Pulse Resp B/P Pulse Ox O2 Delivery O2 Flow Rate FiO2 05/15/16 06:00 83 05/15/16 04:00 98.1 28 166/89 99 05/14/16 20:00 T-Piece 28 05/14/16 08:26 5.00 Intake and Output 05/14/16 05/14/16 05/15/16 08:00 16:00 00:00 Intake Total 651 ml 543 ml 493 ml Output Total 0 ml 100 ml 50 ml Balance 651 ml 443 ml 443 ml (Genna Madrid) Physical Examination Ventilated via tracheostomy. Continues to have severe angioedema, slightly improved from yesterday, tip of tongue appears well perfused. No blood noted. Spontaneous eye opening. Disconjugate gaze. Tracks with eyes. Flap is sunken. Incision are dry and intact. No erythema, edema or drainage. No withdrawal x 4 to deep pain. (Genna Madrid) Lab, Micro, Other Results Last Impressions Chest X-Ray 05/12/16 0600 Signed Impressions: Service Date/Time: Thursday, May 12, 2016 03:00 - CONCLUSION: Normal examination. Sunny Berger MD Head CT 05/12/16 0000 Signed Impressions: Service Date/Time: Thursday, May 12, 2016 15:16 - CONCLUSION: 1. No lesion of the left middle cerebral artery infarct with marked reduction in the mass effect and the brain recommend now below the level of the craniectomy. 2. No acute hemorrhage is identified. Alessandro Schultz MD Skull X-Ray 05/08/16 0000 Signed Impressions: Service Date/Time: May 10:16 - CONCLUSION: Shunt set to 70-80 mm H2O. Fei Snyder MD Head CTA 05/02/16 0600 Signed Impressions: Service Date/Time: Monday, May 02, 2016 04:32 - CONCLUSION: Satisfactory appearance post aneurysm coiling Fei Snyder MD Abdomen/Pelvis CT 04/24/16 1416 Signed Impressions: Service Date/Time: March 14:39 - CONCLUSION: Mild small bowel ileus with scattered air-fluid levels. Bibasilar lung consolidation with associated small effusions. Significant soft tissue fluid accumulation with edematous changes throughout the abdominal wall. Nasogastric tube in good position. Saqib Garcia MD Neck CTA 04/11/16 1151 Signed Impressions: Service Date/Time: Monday, April 11, 2016 12:01 - CONCLUSION: Negative for hemodynamically significant carotid stenosis. Ricardo Castellanos MD FACR Cerebral Arteriogram 04/11/16 0000 Signed Impressions: Service Date/Time: Monday, April 11, 2016 14:18 - CONCLUSION: 1. 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 This is the aneurysm felt responsible for the intracranial hemorrhage. 2. Small 4 mm left M1 segment aneurysm. Attempts at embolizing this aneurysm were unsuccessful due to the broad based nature of the aneurysm. Endovascular repair of this aneurysm could not be performed. Kennedy Thibodeaux Jr., MD (Genna Madrid) Medical Decision Making Impression and Plan Impression: 1. Neurologic exam stable following endovascular coiling of ruptured cerebral aneurysm with subsequent left decompressive craniotomy 04/14/16 CT angiogram stable: Status post endovascular repair of left supraclinoid aneurysm. Left M1 segment aneurysm stable 04/16/[address] and CTA stable. No vasospasm, no new hemorrhage. 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 Midline shift has resolved but there is persistent herniation of brain at the craniotomy defect. No new or acute blood demonstrated. Mild to moderate ventriculomegaly, increased. Codman Valve adjusted to [id number]. 05/09/16: stable head CT, improving ventriculomegaly 05/09/16: Negative EEG 05/12/16: Head CT stable Plan: OMFS are following angioedema, continue Decadron Follow up head CT next week OR planned for replacement of skull flap next . Continue tube feeds as tolerated. Lovenox for DVT prophylaxis Maintain systolic blood pressure 110-160 range Sodium levels may be normalized. [employer] Counselor following for medical management. Protonix for ulcer prophylaxis Physical therapy. (Genna Madrid) Attending Statement On the date of this note, the undersigned had a [id number] encounter with the patient. I personally examined the patient, obtained pertinent history, and reviewed the electronic medical record including pertinent laboratory results and imaging studies. I personally developed the treatment plan and perform medical decision making. All of the above was performed in the presence of the physician's primary teaching assistant, who has scribed my findings into the medical record as noted above. (Sherwin Meléndez MD) Genna Madrid May 15, 2016 09:08 Sherwin Meléndez MD May 15, 2016 21:49
[2016-05-15] MEDS: LABETALOL HCL 100 MG/20 ML VIAL IVS PRN (13:22)
[2016-05-15] MEDS ORDERED: HYDROmorphone HCL PF 2 MG/ML VIAL ONE (15:43)
--- NOTE | 2016-05-15 17:16 | HHI.CCPN ---
Subjective Remarks/Hospital Course SAH, unresponsive, malignant hypertension 46 year-old -[place] female with a longstanding history of hypertension, was found unresponsive at her home on 04/11. When paramedics arrived, they found her with shallow breathing and a Angelica coma scale of 3. SBP was 290. She was transported with bag mask ventilation to the emergency department where she remained unresponsive and required endotracheal intubation. CT scan of the head showed a large left hemispheric intraparenchymal hemorrhage with subarachnoid blood. 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 Pt was started on a Cardene drip and admitted to the ICU. Neurosurgery was consulted and a ventriculostomy was placed. Pt subsequently went to interventional radiology and she underwent coiling of aneurysm. Pertinent ICU Coarse: 04/12: On full vent support. ICP acceptable with drainage bloody as expected 04/13: ICP starting to rise > 20, requiring vent manipulation, increased sedation , analgesia 04/14: Intermittently ICP spiking >20, RR increased to 18, 50 mg of rocuronium 1. CT angiogram shows endovascular repair of left supraclinoid aneurysm, left M1 segment aneurysm stable; no vasospasm 04/15: Remains heavily sedated for ICP control 04/16: Hypoxemic - FiO2 increased to 70%. CXR shows increasing RLL infiltrate 04/17: ICP remains elevated at 22-25 04/18: Labile hypertension. BP limits expanded to 150-190 systolic. More hypoxic now on 90% FiO2 04/19: Remains critically ill with intermittent ICP elevation. 3% saline restarted and 23% saline 1 bolus ordered 04/20: ICP elevated to 31, 23% bolus given with improvement to 12-15 04/21: Remains critically ill with intermittent ICP elevation - controlled with 23% bolus. Keeping sodium 150-160 04/22: CT head shows evolving left frontoparietal hemorrhage with increasing midline shift 1.5 cm left to right. Intermittent ICP elevation responsive to 23 % saline 04/23: ICP elevation up to 27, optimized on medical therapy and hyperosmolar therapy. Prognosis very poor according to neurosurgery. Per Dr. Ruiz, patient has suffered significant dominant hemisphere frontal temporal lobe hemorrhage and consequent cerebral injury which reduces likelihood of functional recovery. Palliative care consulted 04/24: Overnight high ICP elevations up to 40s. Optimized on hyperosmolar therapy. 04/25: ICP remains high despite maximum hyperosmolar therapy. Family requests aggressive care. s/p left decompressive craniectomy by Dr. Meléndez 04/26-04/27: ICP better controlled 04-09, remains heavily sedated 04/28: Remains intubated, sedated, ICP well controlled. s/p PEG by GI. 04/29: Ventric raised to 10. s/p trach by surgery. 04/30-05/01: Starting spontaneous breathing trials. Maintain permissive hypertension for SAH vasospasm prevention 05/02: Stopped all antibiotics and antifungals. Will reculture completely and check C.Diff PCR ahead of possible [employer] shunt placement 05/03: Diuresing well while maintaining good perfusion pressure. 05/04-05/06: Continue PSV trials; BP stable (permissive hypertension) 05/07: s/p [employer] shunt by Dr. Meléndez. BP acceptable. Good gas exchange. 05/08: Low grade fever. Stable hemodynamics, acceptable gas exchange. 05/09: Adjust BP medications to normotensive range (goal < 160) now. Replace 2% with salt tablets 05/10: Still requiring Monica - adjusting oral anti-HTN 05/11-05/12: Tolerating PSV trials. V-P shunt site clean. Off Nicardipine drip. 05/13: On C Pap with pressure support overnight. Awake. Tongue swelling noted which has been ongoing for a while. 05/14: Significant tongue swelling with laceration noted. 05/15: On T piece. Tongue swelling appears to be decreasing. Objective - Vital Signs Date Time Temp Pulse Resp B/P Pulse Ox O2 Delivery O2 Flow Rate FiO2 05/15/16 16:00 81 05/15/16 16:00 98.2 22 165/94 99 05/15/16 07:00 T-Piece 28 05/14/16 08:26 5.00 Intake and Output 05/14/16 05/14/16 05/15/16 08:00 16:00 00:00 Intake Total 651 ml 543 ml 493 ml Output Total 0 ml 100 ml 50 ml Balance 651 ml 443 ml 443 ml Result Diagram: 05/14/1639905/14/16399 Objective Remarks GENERAL: Chronically critically ill Middle-aged female lying in bed on mechanical ventilation HEENT: Craniotomy site remains dry. Pupils reactive. Tongue remains swollen with laceration NECK: Supple - No resistance to motion. Trach in place, clean, dry LUNGS: Clear anteriorly with good air entry bilaterally HEART: Regular rate and rhythm. Normal S1-S2 ABDOMEN: Soft, nondistended. PEG site intact. Positive bowel sounds EXTREMITIES: Palpable pulses with warm periphery. Mild peripheral edema NEUROLOGIC: Withdraws all 4 extremities to noxious stimuli; not following commands. Spontaneous eye opening but does not track. A/P Assessment and Plan 1) Neuro / Psych Acute subarachnoid hemorrhage (left middle cerebral artery aneurysm) Large left frontal hemorrhage with Intracranial hypertension -- s/p endovascular coiling of MCA ruptured cerebral aneurysm 04/11 -- CT angiogram 04/14, 04/16, 04/22 - stable, no vasospasm. -- Patient with significant dominant hemisphere frontal temporal lobe hemorrhage and consequent cerebral injury which reduces likelihood of functional recovery -- Family request aggressive care and Dr. Meléndez performed left decompressive craniotomy 04/25 with evacuation of temporal hematoma -- All continuous sedation discontinued and [employer] shunt placed 05/07. Dr. Meléndez planning replacement of bone flap next week. 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 -- s/p permissive Hypertension for prevention of vasospasm in SAH patient now targeting SBP < 160 -- s/p 3 weeks of Nimotop therapy for vasospasm prevention -- Continue Norvasc 10 q day, Labetalol 600 q 8 hours -- Avoiding KISHA-I given severe tongue edema -- Recommendation for consideration of septal ablation on echo - Not a candidate for surgical intervention due to devastating neuro injury 3) Pulmonary Acute respiratory failure secondary to SAH / ICH -- s/p tracheostomy 04/29 -- Continue ACV rate 14, TV 500, PEEP 5 and 30% FiO2 -- Continue with daily PSV and trach collar trials -- Continue DuoNeb q 4 hours as needed -- CXR 05/12 - no infiltrates 4) GI / Nutrition Mild protein calorie malnutrition Isolated Alkaline phosphate elevation -- s/p PEG 04/28 -- Tolerating tube feeds (Jevity) at goal of 50 cc/hr (-25-30 kcal/kg/day) -- Pt with +++ bowel movements and not requiring bowel regimen at present 5) Renal / Metabolic Hypokalemia, Hypomagnesemia -- Bun and creatinine stable with good urine output -- Rebollar catheter in place for accurate I/Os in critically ill patient -- Supplement electrolytes as needed per replacement protocol 6) Endocrine Euglycemic and not requiring SSI at present 7) Heme Anemia of chronic inflammation / disease -- Hgb stable with no signs of active bleeding 8) ID Sepsis secondary to pneumonia and prior UTI -- Pertinent cultures: - Sputum 04/15 - E. coli, H. flu - Sputum 05/02 - Rob sensitive Acinetobacter - Urine 05/02 - E. coli - CSF 05/05 and 05/07 - negative - All previous blood cultures negative -- s/p antibiotic therapy for above pneumonia and UTI -- Currently off all anti-microbial therapy Discussed with neurosurgery Dr. Meléndez. Consulted OMFS for lacerated tongue with significant swelling on 05/14. Per Dr. London he wishes for tongue swelling to be treated with steroid-induced and then may take her to OR for repair of tongue laceration 9) Prophylaxis: GI - oral Zantac q 12 DVT - SCDs; Lovenox 40 q day 10) Rehab: PT / OT Will eventually need LTACH / SNF 11) IV Access: Peripheral iv Mike Molina MD May 15, 2016 17:16
[2016-05-16] VITALS (9 sets, daily range): BP systolic 161–184; BP diastolic 77–88; PULSE 62–85; RESP 12–26; TEMP 97.3–98.8; O2SAT 97–100
[2016-05-16] MEDS: DEXAMETHASONE SOD PHOS 4 MG/ML VIAL IV PUSH SCH ×4 (02:19→17:57)
[2016-05-16] MEDS: LABETALOL HCL 100 MG/20 ML VIAL IVS PRN ×2 (03:18→10:20)
[2016-05-16] MEDS: CHLORHEXIDINE GLUCONATE 2 % 1 PACK (2 CLOTHS) TOP SCH (03:19)
[2016-05-16] MEDS: LABETALOL HCL 300 MG TAB PO SCH ×3 (05:52→21:48)
[2016-05-16] MEDS ORDERED: MIDAZOLAM HCL 5 MG/ML VIAL (1 ML) ONE ×2 (08:43→08:52)
[2016-05-16] MEDS ORDERED: SUCCINYLCHOLINE CHLORIDE 200 MG/10 ML VIAL ONE (08:53)
[2016-05-16] MEDS: SODIUM CHLORIDE 0.9% FLUSH 5 ML FLUSH IVF SCH ×2 (09:00→21:00)
--- NOTE | 2016-05-16 09:55 | HHI.CCPN ---
Subjective Remarks/Hospital Course SAH, unresponsive, malignant hypertension 46 year-old -[place] female with a longstanding history of hypertension, was found unresponsive at her home on 04/11. When paramedics arrived, they found her with shallow breathing and a Angelica coma scale of 3. SBP was 290. She was transported with bag mask ventilation to the emergency department where she remained unresponsive and required endotracheal intubation. CT scan of the head showed a large left hemispheric intraparenchymal hemorrhage with subarachnoid blood. 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 Pt was started on a Cardene drip and admitted to the ICU. Neurosurgery was consulted and a ventriculostomy was placed. Pt subsequently went to interventional radiology and she underwent coiling of aneurysm. Pertinent ICU Coarse: 04/12: On full vent support. ICP acceptable with drainage bloody as expected 04/13: ICP starting to rise > 20, requiring vent manipulation, increased sedation , analgesia 04/14: Intermittently ICP spiking >20, RR increased to 18, 50 mg of rocuronium 1. CT angiogram shows endovascular repair of left supraclinoid aneurysm, left M1 segment aneurysm stable; no vasospasm 04/15: Remains heavily sedated for ICP control 04/16: Hypoxemic - FiO2 increased to 70%. CXR shows increasing RLL infiltrate 04/17: ICP remains elevated at 22-25 04/18: Labile hypertension. BP limits expanded to 150-190 systolic. More hypoxic now on 90% FiO2 04/19: Remains critically ill with intermittent ICP elevation. 3% saline restarted and 23% saline 1 bolus ordered 04/20: ICP elevated to 31, 23% bolus given with improvement to 12-15 04/21: Remains critically ill with intermittent ICP elevation - controlled with 23% bolus. Keeping sodium 150-160 04/22: CT head shows evolving left frontoparietal hemorrhage with increasing midline shift 1.5 cm left to right. Intermittent ICP elevation responsive to 23 % saline 04/23: ICP elevation up to 27, optimized on medical therapy and hyperosmolar therapy. Prognosis very poor according to neurosurgery. Per Dr. Ruiz, patient has suffered significant dominant hemisphere frontal temporal lobe hemorrhage and consequent cerebral injury which reduces likelihood of functional recovery. Palliative care consulted 04/24: Overnight high ICP elevations up to 40s. Optimized on hyperosmolar therapy. 04/25: ICP remains high despite maximum hyperosmolar therapy. Family requests aggressive care. s/p left decompressive craniectomy by Dr. Meléndez 04/26-04/27: ICP better controlled 04-09, remains heavily sedated 04/28: Remains intubated, sedated, ICP well controlled. s/p PEG by GI. 04/29: Ventric raised to 10. s/p trach by surgery. 04/30-05/01: Starting spontaneous breathing trials. Maintain permissive hypertension for SAH vasospasm prevention 05/02: Stopped all antibiotics and antifungals. Will reculture completely and check C.Diff PCR ahead of possible PROCESS CONTROL TECHNICIAN shunt placement 05/03: Diuresing well while maintaining good perfusion pressure. 05/04-05/06: Continue PSV trials; BP stable (permissive hypertension) 05/07: s/p PROCESS CONTROL TECHNICIAN shunt by Dr. Meléndez. BP acceptable. Good gas exchange. 05/08: Low grade fever. Stable hemodynamics, acceptable gas exchange. 05/09: Adjust BP medications to normotensive range (goal < 160) now. Replace 2% with salt tablets 05/10: Still requiring Monica - adjusting oral anti-HTN 05/11-05/12: Tolerating PSV trials. V-P shunt site clean. Off Nicardipine drip. 05/13: On C Pap with pressure support overnight. Awake. Tongue swelling noted which has been ongoing for a while. 05/14: Significant tongue swelling with laceration noted. 05/15: On T piece. Tongue swelling appears to be decreasing. 05/16: On T piece tongue appeared to be severely swollen, severely lacerated. Patient had to be temporarily paralyzed and heavily sedated to place a bite block. (bite block placed by Dr. Meléndez). Dr. Booth from [facility] [place] following. Objective - Vital Signs Date Time Temp Pulse Resp B/P Pulse Ox O2 Delivery O2 Flow Rate FiO2 05/16/16 07:00 100 T-Piece 28 05/16/16 04:00 98.1 85 18 169/82 05/15/16 21:45 5.00 Intake and Output 05/15/16 05/15/16 05/16/16 08:00 16:00 00:00 Intake Total 514 ml 574 ml 516 ml Output Total 0 ml 0 ml 0 ml Balance 514 ml 574 ml 516 ml Result Diagram: 05/14/1639905/14/16399 Objective Remarks GENERAL: Chronically critically ill Middle-aged female lying in bed on TP HEENT: Craniotomy site remains dry. Pupils reactive. Tongue remains swollen with severe laceration, almost detached from the base NECK: Supple - No resistance to motion. Trach in place, clean, dry LUNGS: Clear anteriorly with good air entry bilaterally HEART: Regular rate and rhythm. Normal S1-S2 ABDOMEN: Soft, nondistended. PEG site intact. Positive bowel sounds EXTREMITIES: Palpable pulses with warm periphery. Mild peripheral edema NEUROLOGIC: Withdraws all 4 extremities weakly to noxious stimuli; not following commands. Spontaneous eye opening with L gaze, but does not track. Urinary Catheter: Yes Assessment to: Continue A/P Assessment and Plan 1) Neuro / Psych Acute subarachnoid hemorrhage (left middle cerebral artery aneurysm) Large left frontal hemorrhage with Intracranial hypertension -- s/p endovascular coiling of MCA ruptured cerebral aneurysm 04/11 -- CT angiogram 04/14, 04/16, 04/22 - stable, no vasospasm. -- Patient with significant dominant hemisphere frontal temporal lobe hemorrhage and consequent cerebral injury which reduces likelihood of functional recovery -- Family request aggressive care and Dr. Meléndez performed left decompressive craniotomy 04/25 with evacuation of temporal hematoma -- All continuous sedation discontinued and PROCESS CONTROL TECHNICIAN shunt placed 05/07. -- Dr. Meléndez planning replacement of bone flap next week. 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 Add HCTZ 25 mg daily 05/16 -- Avoiding KISHA-I given severe tongue edema -- Recommendation for consideration of septal ablation on echo - Not a candidate for surgical intervention due to devastating neuro injury 3) Pulmonary Acute respiratory failure secondary to SAH / ICH Severe tongue laceration -- s/p tracheostomy 04/29 -- Leave on TP 23/03. Sedated and paralyzed today, with ventilator secondary to neuro sclerosis need for bite-block placement -- Continue DuoNeb q 4 hours as needed -- CXR 05/12 - no infiltrates 4) GI / Nutrition Mild protein calorie malnutrition Isolated Alkaline phosphate elevation -- s/p PEG 04/28 -- Tolerating tube feeds (Jevity) at goal of 50 cc/hr (-25-30 kcal/kg/day) -- Pt with +ve bowel movements and not requiring bowel regimen at present 5) Renal / Metabolic Hypokalemia, Hypomagnesemia -- Bun and creatinine stable with good urine output -- Rebollar catheter in place for accurate I/Os in critically ill patient -- Supplement electrolytes as needed per replacement protocol 6) Endocrine Euglycemic and not requiring SSI at present 7) Heme Anemia of chronic inflammation / disease -- Hgb stable with no signs of active bleeding 8) ID Sepsis secondary to pneumonia and prior UTI -- Pertinent cultures: - Sputum 04/15 - E. coli, H. flu - Sputum 05/02 - Rob sensitive Acinetobacter - Urine 05/02 - E. coli - CSF 05/05 and 05/07 - negative - All previous blood cultures negative -- s/p antibiotic therapy for above pneumonia and UTI -- Currently off all anti-microbial therapy Discussed with neurosurgery Dr. Meléndez. [facility] following for lacerated tongue with significant swelling on 05/14. Per Dr. Booth he wishes for tongue swelling to be treated with steroid and then may take her to OR for repair of tongue laceration 9) Prophylaxis: GI - oral Zantac q 12 DVT - SCDs; Lovenox 40 q day 10) Rehab: PT / OT Will eventually need LTACH / SNF 11) IV Access: Peripheral iv CCT 35 with need for conscious sedation, followed by NM -paralysis and ventilator placement Mary Enamorado MD May 16, 2016 09:55
--- NOTE | 2016-05-16 09:58 | HHI.NSPN ---
(Genna Madrid) History Chief Complaint: status post coil for aneurysm (Genna Madrid) Interval History 04/12/16: Patient had an aneurysm coiled yesterday, intubated and sedated, ICP stable overnight 04/13/16: Increased ICP overnight, improved after a 23% saline bolus 04/14/16: ICP stable overnight 04/15/16: ICP stable, CTA stable no vasospasm 04/16/16: ICP slight increase overnight now stabilized, intubated and sedated 04/17/16: ICP increased yesterday afternoon, repeat CTA and CT stable, no vasospasm, no new hemorrhage, hypothermia overnight 04/21/16: increasing ICP over the weekend, getting 23% every 6 hours PRN. 04/22/16: ICP responding over night to 23% saline, CT and CTA planned this am. Nimbex off since yesterday. 04/23/16: ICP stable overnight, SBP increasing today RN adjusting pressors, HGB improved after 2 units of PRBC, no signs of active bleeding 04/24/16: ICP increased overnight with stimulation but not sustained, low HGB again today receiving PRBC this am 04/25/16: ICP max 38 overnight, currently 10, no family at bedside. 04/26/16: She has ventriculostomy drain in place. She underwent left decompressive craniectomy yesterday 04/[address] Meléndez due to elevated ICPs. Today, ICPs improved, currently 4. 04/27/16: intermittent spikes in ICPs overnight in low 20's controlled with hyperosmotic bolus. Currently 9. well sedated. 04/28/16: ICP stable between 9-14 per RN. EVD draining blood tinged CSF, flap firm non-pulsatile 04/29/16: ICP stable overnight, PEG yesterday, Trach today. 04/30/16: EVD clamped 05/01/16: EVD clamped, ICP max 17, currently 14. 05/02/16: EVD draining, ICP 9, no sedation 05/03/16: Pt with eyes open. Not following commands. Pupils 4mm bilaterally reactive bilaterally. Ventriculostomy in place at [id number]. ICP 8. 9: Pt with eyes open. Not following commands. Pupils 4mm bilaterally reactive bilaterally. Ventriculostomy in place at [id number]. ICP 8. 9: Day 24 after PCOM aneurysm bleed and coiling, Pupils reactives, eyes now open and she is more alert. EVD was clamped this am, remains straw coloured. 05/06/16: eyes open, very mild flexion to deep pain in the upper extremities. 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 for RADIATOR FITTER shunt placement 05/08/16: POD 1 from shunt placement, eyes open, does not track 05/09/16: POD 2 no withdrawal on exam today and eyes are more deviated 05/10/16: EEG negative for seizures yesterday, labile HTN, stable neuro hoff 05/11/16: no changes overnight 05/12/16: no changes per nurse 05/13/16: stable overnight 05/14/16: stable overnight, increase angioedema 05/15/16: stable overnight, angioedema slightly improved with Decadron : stable overnight, angioedema seems worse this am. (Genna Madrid) Exam Results Vital Signs Date Time Temp Pulse Resp B/P Pulse Ox O2 Delivery O2 Flow Rate FiO2 05/16/16 07:00 100 T-Piece 28 05/16/16 04:00 98.1 85 18 169/82 05/15/16 21:45 5.00 Intake and Output 05/15/16 05/15/16 05/16/16 08:00 16:00 00:00 Intake Total 514 ml 574 ml 516 ml Output Total 0 ml 0 ml 0 ml Balance 514 ml 574 ml 516 ml (Genna Madrid) Physical Examination Tracheostomy. Continues to have severe angioedema, more edematous than yesterday, tip of tongue appears well perfused. No blood noted. Spontaneous eye opening. Disconjugate gaze. Tracks with eyes. Flap is sunken. Incision are dry and intact. No erythema, edema or drainage. No withdrawal x 3 to deep pain, flexion left arm to pain. (Genna Madrid) Lab, Micro, Other Results Last Impressions Chest X-Ray 05/12/16 0600 Signed Impressions: Service Date/Time: Thursday, May 12, 2016 03:00 - CONCLUSION: Normal examination. Sunny Berger MD Head CT 05/12/16 0000 Signed Impressions: Service Date/Time: Thursday, May 12, 2016 15:16 - CONCLUSION: 1. No lesion of the left middle cerebral artery infarct with marked reduction in the mass effect and the brain recommend now below the level of the craniectomy. 2. No acute hemorrhage is identified. Alessandro Schultz MD Skull X-Ray 05/08/16 0000 Signed Impressions: Service Date/Time: May 10:16 - CONCLUSION: Shunt set to 70-80 mm H2O. Fei Snyder MD Head CTA 05/02/16 0600 Signed Impressions: Service Date/Time: Monday, May 02, 2016 04:32 - CONCLUSION: Satisfactory appearance post aneurysm coiling Fei Snyder MD Abdomen/Pelvis CT 04/24/16 1416 Signed Impressions: Service Date/Time: March 14:39 - CONCLUSION: Mild small bowel ileus with scattered air-fluid levels. Bibasilar lung consolidation with associated small effusions. Significant soft tissue fluid accumulation with edematous changes throughout the abdominal wall. Nasogastric tube in good position. Saqib Garcia MD Neck CTA 04/11/16 1151 Signed Impressions: Service Date/Time: Monday, April 11, 2016 12:01 - CONCLUSION: Negative for hemodynamically significant carotid stenosis. Ricardo Castellanos MD FACR Cerebral Arteriogram 04/11/16 0000 Signed Impressions: Service Date/Time: Monday, April 11, 2016 14:18 - CONCLUSION: 1. 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 This is the aneurysm felt responsible for the intracranial hemorrhage. 2. Small 4 mm left M1 segment aneurysm. Attempts at embolizing this aneurysm were unsuccessful due to the broad based nature of the aneurysm. Endovascular repair of this aneurysm could not be performed. Kennedy Thibodeaux Jr., MD (Genna Madrid) Medical Decision Making Impression and Plan Impression: 1. Neurologic exam stable following endovascular coiling of ruptured cerebral aneurysm with subsequent left decompressive craniotomy 04/14/16 CT angiogram stable: Status post endovascular repair of left supraclinoid aneurysm. Left M1 segment aneurysm stable 04/16/[address] and CTA stable. No vasospasm, no new hemorrhage. 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 Midline shift has resolved but there is persistent herniation of brain at the craniotomy defect. No new or acute blood demonstrated. Mild to moderate ventriculomegaly, increased. Codman Valve adjusted to [id number]. 05/09/16: stable head CT, improving ventriculomegaly 05/09/16: Negative EEG 05/12/16: Head CT stable Plan: OMFS are following angioedema, continue Decadron, Bite block placed today. Follow up head CT next week OR planned for replacement of skull flap next . Continue tube feeds as tolerated. Lovenox for DVT prophylaxis Maintain systolic blood pressure 110-160 range Sodium levels may be normalized. Corrections Identification Technician following for medical management. Protonix for ulcer prophylaxis Physical therapy. (Genna Madrid) Attending Statement On the date of this note, the undersigned had a [id number] encounter with the patient. I personally examined the patient, obtained pertinent history, and reviewed the electronic medical record including pertinent laboratory results and imaging studies. I personally developed the treatment plan and perform medical decision making. All of the above was performed in the presence of the physician's assistant controller, who has scribed my findings into the medical record as noted above. (Sherwin Meléndez MD) Genna Madrid May 16, 2016 09:58 Sherwin Meléndez MD May 24, 2016 14:47
[2016-05-16] MEDS: RANITIDINE HCL 150 MG TAB PO SCH ×2 (10:19→20:16)
[2016-05-16] MEDS: ENOXAPARIN SODIUM 40 MG/0.4 ML SYRINGE SQ SCH (10:19)
[2016-05-16] MEDS: HYDROCHLOROTHIAZIDE 25 MG TAB PO SCH (10:21)
[2016-05-16] MEDS ORDERED: SUCCINYLCHOLINE CHLORIDE 200 MG/10 ML VIAL IV ONE (11:15)
[2016-05-16] MEDS ORDERED: MIDAZOLAM HCL 10 MG/10 ML VIAL IV ONE (11:15)
[2016-05-16] MEDS ORDERED: ONDANSETRON HCL 4 MG/2 ML VIAL IV PUSH ONE (12:00)
[2016-05-16] MEDS: ACETAMINOPHEN/HYDROcodone 325 MG/5 MG TAB PO PRN ×2 (12:16→17:58)
[2016-05-16] MEDS: MORPHINE SULFATE 4 MG/ML INJ IV PUSH PRN (20:17)
[2016-05-16] MEDS ORDERED: LIDOCAINE 1%/EPINEPHrine 1:100,000 SOLN 30 ML VIAL ONE (22:00)
[2016-05-16] MEDS ORDERED: LIDOCAINE 2%/EPINEPHrine 1:100,000 30ML MDV ONE (22:01)
[2016-05-16] MEDS ORDERED: CHLORHEXIDINE GLUCONATE 0.12% 30 ML CUP ONE (22:02)
[2016-05-16] MEDS ORDERED: SUGAMMADEX SODIUM 200 MG/2 ML VIAL IV PUSH ONE ×2 (22:13)
[2016-05-16] MEDS ORDERED: MICROFIBRILLAR COLLAGEN HEMOSTAT 1 GM PKT TOPICAL ONE (22:28)
[2016-05-16] MEDS ORDERED: CHLORHEXIDINE GLUCONATE 0.12% 30 ML CUP MT ONE (22:28)
[2016-05-16] MEDS ORDERED: LIDOCAINE 2%/EPINEPHrine 1:100,000 30ML MDV INFIL ONE (22:28)
[2016-05-16] MEDS ORDERED: MICROFIBRILLAR COLLAGEN HEMOSTAT 1 GM PKT ONE (22:40)
[2016-05-16] MEDS ORDERED: MICROFIBRILLAR COLLAGEN HEMOSTAT 70 X 35 MM BANDAGE ONE (22:41)
[2016-05-17] VITALS (9 sets, daily range): BP systolic 156–212; BP diastolic 72–99; PULSE 54–86; RESP 16–25; TEMP 97.5–98.6; O2SAT 96–100
[2016-05-17] MEDS ORDERED: DO NOT ADM ANY ANTICOAGULANT DRUGS XX PRN (00:15)
[2016-05-17] MEDS: methylPREDNISolone SOD SUCC 125 MG/2 ML VIAL IV SCH ×2 (00:24→06:28)
[2016-05-17] MEDS: ACETAMINOPHEN/HYDROcodone 325 MG/5 MG TAB PO PRN ×2 (00:24→10:14)
[2016-05-17] MEDS: CHLORHEXIDINE GLUCONATE 2 % 1 PACK (2 CLOTHS) TOP SCH (04:00)
[2016-05-17 04:20] LABS: AUTOMATED NEUTROPHIL # 8.3 TH/MM3 (1.8-7.7); BASOPHIL % 0.1 % (0.0-2.0); HEMATOCRIT 31.7 % (35.0-46.0); HEMO FLAGS DIFF FINAL; LYMPH % 7.3 % (9.0-44.0); LYMPHOCYTE # 0.7 TH/MM3 (1.0-4.8); MEAN CELL VOLUME 79.1 FL (80.0-100.0); MEAN CORPUSCULAR HEMOGLOBIN 25.6 PG (27.0-34.0); MEAN CORPUSCULAR HGB CONC 32.4 % (32.0-36.0); MONO % 2.6 % (0.0-8.0); PLATELET COUNT 531 TH/MM3 (150-450); RED BLOOD COUNT 4.01 MIL/MM3 (4.00-5.30); RED CELL DISTRIBUTION WIDTH 19.9 % (11.6-17.2); WHITE BLOOD COUNT 9.3 TH/MM3 (4.0-11.0)
[2016-05-17 04:40] LABS: ALKALINE PHOSPHATASE 144 U/L (45-117); TOTAL BILIRUBIN ADULT 0.2 MG/DL (0.2-1.0)
[2016-05-17 04:47] LABS: ALT (GPT) 80 U/L (10-53); ANION GAP 7 MEQ/L (5-15); AST (GOT) 62 U/L (15-37); BICARBONATE 28.9 MEQ/L (21.0-32.0); BLOOD UREA NITROGEN 27 MG/DL (7-18); CHLORIDE 103 MEQ/L (98-107); GLOMERULAR FILTRATION RATE 146 ML/MIN (>89); SODIUM (NA) 139 MEQ/L (136-145)
[2016-05-17 04:48] LABS: POTASSIUM 4.3 MEQ/L (3.5-5.1)
--- NOTE | 2016-05-17 06:12 | RADRPT ---
EXAM DATE/TIME: 05/17/2016 04:59 [facility] COMPARISON: CHEST SINGLE AP, May 12, 2016, 3:00. INDICATIONS : Respiratory disease. MEDICAL HISTORY : Hypertension. SURGICAL HISTORY : None. ENCOUNTER: Subsequent ACUITY: 1 month PAIN SCORE: Non-responsive. LOCATION: Bilateral chest FINDINGS: A single view of the chest demonstrates tracheostomy in satisfactory position. Shunt tubing overlies right hemithorax. Mild basilar density, probably atelectasis. No effusion or pneumothorax. Cardiomega ly. CONCLUSION: 1. Minimal basilar atelectasis. Cardiomegaly. Quinn Bateman MD on May 17, 2016 at 6:09 Board Certified Radiologist. This report was verified electronically.
[2016-05-17] MEDS: LABETALOL HCL 300 MG TAB PO SCH ×3 (06:29→22:00)
[2016-05-17] MEDS ORDERED: methylPREDNISolone ACETATE 80 MG/ML VIAL IM ONE (08:00)
[2016-05-17] MEDS: SODIUM CHLORIDE 0.9% FLUSH 5 ML FLUSH IVF SCH ×2 (08:40→21:00)
[2016-05-17] MEDS: ENOXAPARIN SODIUM 40 MG/0.4 ML SYRINGE SQ SCH (08:40)
[2016-05-17] MEDS: HYDROCHLOROTHIAZIDE 25 MG TAB PO SCH (08:40)
[2016-05-17] MEDS: RANITIDINE HCL 150 MG TAB PO SCH ×2 (08:40→21:44)
[2016-05-17] MEDS: DEXAMETHASONE SOD PHOS 4 MG/ML VIAL IV PUSH SCH (12:04)
[2016-05-17] MEDS: MORPHINE SULFATE 4 MG/ML INJ IV PUSH PRN ×2 (12:04→23:24)
[2016-05-17] MEDS ORDERED: hydrALAZINE HCL 20 MG/ML VIAL ONE (13:22)
[2016-05-17] MEDS: hydrALAZINE HCL 20 MG/ML VIAL IV PUSH PRN (13:23)
--- NOTE | 2016-05-17 13:49 | HHI.CCPN ---
Subjective Remarks/Hospital Course SAH, unresponsive, malignant hypertension 46 year-old -[place] female with a longstanding history of hypertension, was found unresponsive at her home on 04/11. When paramedics arrived, they found her with shallow breathing and a Angelica coma scale of 3. SBP was 290. She was transported with bag mask ventilation to the emergency department where she remained unresponsive and required endotracheal intubation. CT scan of the head showed a large left hemispheric intraparenchymal hemorrhage with subarachnoid blood. 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 Pt was started on a Cardene drip and admitted to the ICU. Neurosurgery was consulted and a ventriculostomy was placed. Pt subsequently went to interventional radiology and she underwent coiling of aneurysm. Pertinent ICU Coarse: 04/12: On full vent support. ICP acceptable with drainage bloody as expected 04/13: ICP starting to rise > 20, requiring vent manipulation, increased sedation , analgesia 04/14: Intermittently ICP spiking >20, RR increased to 18, 50 mg of rocuronium 1. CT angiogram shows endovascular repair of left supraclinoid aneurysm, left M1 segment aneurysm stable; no vasospasm 04/15: Remains heavily sedated for ICP control 04/16: Hypoxemic - FiO2 increased to 70%. CXR shows increasing RLL infiltrate 04/17: ICP remains elevated at 22-25 04/18: Labile hypertension. BP limits expanded to 150-190 systolic. More hypoxic now on 90% FiO2 04/19: Remains critically ill with intermittent ICP elevation. 3% saline restarted and 23% saline 1 bolus ordered 04/20: ICP elevated to 31, 23% bolus given with improvement to 12-15 04/21: Remains critically ill with intermittent ICP elevation - controlled with 23% bolus. Keeping sodium 150-160 04/22: CT head shows evolving left frontoparietal hemorrhage with increasing midline shift 1.5 cm left to right. Intermittent ICP elevation responsive to 23 % saline 04/23: ICP elevation up to 27, optimized on medical therapy and hyperosmolar therapy. Prognosis very poor according to neurosurgery. Per Dr. Ruiz, patient has suffered significant dominant hemisphere frontal temporal lobe hemorrhage and consequent cerebral injury which reduces likelihood of functional recovery. Palliative care consulted 04/24: Overnight high ICP elevations up to 40s. Optimized on hyperosmolar therapy. 04/25: ICP remains high despite maximum hyperosmolar therapy. Family requests aggressive care. s/p left decompressive craniectomy by Dr. Meléndez 04/26-04/27: ICP better controlled 04-09, remains heavily sedated 04/28: Remains intubated, sedated, ICP well controlled. s/p PEG by GI. 04/29: Ventric raised to 10. s/p trach by surgery. 04/30-05/01: Starting spontaneous breathing trials. Maintain permissive hypertension for SAH vasospasm prevention 05/02: Stopped all antibiotics and antifungals. Will reculture completely and check C.Diff PCR ahead of possible NON LICENSED NUCLEAR EQUIPMENT OPERATOR shunt placement 05/03: Diuresing well while maintaining good perfusion pressure. 05/04-05/06: Continue PSV trials; BP stable (permissive hypertension) 05/07: s/p NON LICENSED NUCLEAR EQUIPMENT OPERATOR shunt by Dr. Meléndez. BP acceptable. Good gas exchange. 05/08: Low grade fever. Stable hemodynamics, acceptable gas exchange. 05/09: Adjust BP medications to normotensive range (goal < 160) now. Replace 2% with salt tablets 05/10: Still requiring Monica - adjusting oral anti-HTN 05/11-05/12: Tolerating PSV trials. V-P shunt site clean. Off Nicardipine drip. 05/13: On C Pap with pressure support overnight. Awake. Tongue swelling noted which has been ongoing for a while. 05/14: Significant tongue swelling with laceration noted. 05/15: On T piece. Tongue swelling appears to be decreasing. 05/16: On T piece tongue appeared to be severely swollen, severely lacerated. Patient had to be temporarily paralyzed and heavily sedated to place a bite block. (bite block placed by Dr. Meléndez). [place] [facility] [place] 05/17 s/p repair of tongue laceration and upper teeth extraction 05/16. Tongue swelling markedly down. Tolerating TP. Eyes open spontaneously Objective - Vital Signs Date Time Temp Pulse Resp B/P Pulse Ox O2 Delivery O2 Flow Rate FiO2 05/17/16 12:00 60 05/17/16 12:00 98.1 16 191/91 100 05/17/16 08:00 T-Piece 5.00 28 Intake and Output 05/16/16 05/16/16 05/17/16 08:00 16:00 00:00 Intake Total 556 ml 774 ml 858 ml Output Total 50 ml 10 ml Balance 506 ml 774 ml 848 ml Result Diagram: 05/17/16 0355 05/17/16 0355 Objective Remarks GENERAL: Chronically critically ill Middle-aged female lying in bed on TP HEENT: Craniotomy site remains dry. Pupils reactive. Tongue swelling improved, s /p repair of laceration NECK: Supple - No resistance to motion. Trach in place, clean, dry LUNGS: Clear anteriorly with good air entry bilaterally HEART: Regular rate and rhythm. Normal S1-S2 ABDOMEN: Soft, nondistended. PEG site intact. Positive bowel sounds EXTREMITIES: Palpable pulses with warm periphery. Mild peripheral edema NEUROLOGIC: Withdraws all 4 extremities weakly to noxious stimuli; not following commands. Spontaneous eye opening with L gaze, but does not track. Urinary Catheter: Yes Assessment to: Continue A/P Assessment and Plan 1) Neuro / Psych Acute subarachnoid hemorrhage (left middle cerebral artery aneurysm) Large left frontal hemorrhage with Intracranial hypertension -- s/p endovascular coiling of MCA ruptured cerebral aneurysm 04/11 -- CT angiogram 04/14, 04/16, 04/22 - stable, no vasospasm. -- Patient with significant dominant hemisphere frontal temporal lobe hemorrhage and consequent cerebral injury which reduces likelihood of functional recovery -- Family request aggressive care and Dr. Meléndez performed left decompressive craniotomy 04/25 with evacuation of temporal hematoma -- All continuous sedation discontinued and NON LICENSED NUCLEAR EQUIPMENT OPERATOR shunt placed 05/07. -- Dr. Meléndez planning replacement of bone flap next week. 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 HCTZ 25 mg daily 05/16. Hydralazine PRN and start scheduled 50 mg q8 05/17/16 -- Avoiding KISHA-I given severe tongue edema -- Recommendation for consideration of septal ablation on echo - Not a candidate for surgical intervention due to devastating neuro injury 3) Pulmonary Acute respiratory failure secondary to SAH / ICH Severe tongue laceration -- s/p tracheostomy 04/29. s/p tongue laceration repair by Dr. Booth 05/16/16 -- Leave on TP 23/03. Continue DuoNeb q 4 hours as needed -- CXR 05/12 - no infiltrates -- DC Decadron 05/17 4) GI / Nutrition Mild protein calorie malnutrition Isolated Alkaline phosphate elevation -- s/p PEG 04/28 -- Tolerating tube feeds (Jevity) at goal of 50 cc/hr (-25-30 kcal/kg/day) -- Pt with +ve bowel movements and not requiring bowel regimen at present 5) Renal / Metabolic Hypokalemia, Hypomagnesemia -- Bun and creatinine stable with good urine output -- Rebollar catheter in place for accurate I/Os in critically ill patient -- Supplement electrolytes as needed per replacement protocol 6) Endocrine Euglycemic and not requiring SSI at present 7) Heme Anemia of chronic inflammation / disease -- Hgb stable with no signs of active bleeding 8) ID Sepsis secondary to pneumonia and prior UTI -- Pertinent cultures: - Sputum 04/15 - E. coli, H. flu - Sputum 05/02 - Rob sensitive Acinetobacter - Urine 05/02 - E. coli - CSF 05/05 and 05/07 - negative - All previous blood cultures negative -- s/p antibiotic therapy for above pneumonia and UTI -- Currently off all anti-microbial therapy 9) Prophylaxis: GI - oral Zantac q 12 DVT - SCDs; Lovenox 40 q day 10) Rehab: PT / OT Will eventually need LTACH / SNF 11) IV Access: Peripheral iv Level 3 Consult [facility] (Dr. Castellano) to assume care in Mary Enamorado MD May 17, 2016 13:49
[2016-05-17] MEDS: hydrALAZINE HCL 50 MG TAB PO SCH ×2 (14:30→21:45)
--- NOTE | 2016-05-17 14:36 | HHI.PR ---
Subjective Remarks POD 1 s/p extraction of periodontally, decayed, broken teeth # [id number] and repair of through and thorough tongue laceration/soft tissue injury pt seen examined, family/nurse at bedside trached Objective Vital Signs Date Time Temp Pulse Resp B/P Pulse Ox O2 Delivery O2 Flow Rate FiO2 05/17/16 12:00 60 05/17/16 12:00 98.1 60 16 191/91 100 05/17/16 08:00 98.6 62 23 160/84 96 05/17/16 08:00 62 05/17/16 08:00 96 T-Piece 5.00 28 05/17/16 07:00 98 T-Piece 28 05/17/16 06:00 86 05/17/16 04:00 98.3 54 19 156/77 98 05/17/16 04:00 54 05/17/16 00:00 68 16 157/99 93 Trach Collar 10 05/17/16 00:00 97.5 62 16 212/99 99 05/16/16 23:45 71 16 159/95 93 Trach Collar 10 50 05/16/16 23:30 61 14 155/95 94 Trach Collar 10 50 05/16/16 23:15 97.8 72 15 153/91 94 Trach Collar 10 50 05/16/16 20:00 98.8 62 20 171/79 98 05/16/16 19:00 98 T-Piece 28 05/16/16 16:00 97.8 68 18 161/77 97 I/O 05/16/16 05/16/16 05/16/16 05/17/16 05/17/16 05/17/16 07:00 15:00 23:00 07:00 15:00 23:00 Intake Total 556 ml 774 ml 408 ml 712 ml 490 ml Output Total 50 ml 0 ml 110 ml 0 ml Balance 506 ml 774 ml 408 ml 602 ml 490 ml IV Total 74 ml 298 ml 60 ml 107 ml 134 ml Tube Feeding 382 ml 476 ml 288 ml 145 ml 356 ml Other 100 ml 60 ml 460 ml Stool Total 50 ml 0 ml 100 ml 0 ml Gastric Drainage Total 0 ml Tube Feeding Residual Discard 0 ml Estimated Blood Loss 10 ml # Voids 3 4 1 2 3 Result Diagram: 05/17/16 0355 05/17/16 0355 Objective Remarks tongue significant decrease in edema, wound margins well approximated, sutures intact tongue pink and well perfused, softer extraction sites stable all wound hemostatic bite block in the right side of mouth Assessment and Plan Assessment and Plan pod 1 s/p extraction of teeth maxillary 6-11 -decayed/periodontally involved and repair of tongue laceration/soft tissue injury secondary to biting and enlarged tongue tongue attached/pink and healthy/healing, smaller in size and softer extraction sites stable Steve Booth DMD May 17, 2016 14:36
[2016-05-18] VITALS (14 sets, daily range): BP systolic 129–176; BP diastolic 64–92; PULSE 56–101; RESP 17–27; TEMP 97.8–98.7; O2SAT 95–100
[2016-05-18] MEDS: CHLORHEXIDINE GLUCONATE 2 % 1 PACK (2 CLOTHS) TOP SCH (04:00)
[2016-05-18] MEDS: hydrALAZINE HCL 50 MG TAB PO SCH ×2 (06:26→12:44)
[2016-05-18] MEDS: LABETALOL HCL 300 MG TAB PO SCH ×2 (06:28→22:00)
[2016-05-18] MEDS: HYDROCHLOROTHIAZIDE 25 MG TAB PO SCH (08:38)
[2016-05-18] MEDS: SODIUM CHLORIDE 0.9% FLUSH 5 ML FLUSH IVF SCH ×2 (08:39→20:06)
[2016-05-18] MEDS: RANITIDINE HCL 150 MG TAB PO SCH ×2 (08:39→20:09)
[2016-05-18] MEDS: ENOXAPARIN SODIUM 40 MG/0.4 ML SYRINGE SQ SCH (08:39)
--- NOTE | 2016-05-18 10:08 | HHI.NSPN ---
Subjective History 05/18/16 Day 37 after coiling of aneurysm, left frontal bone flap off, s/p right frontal GIS MAPPING TECHNICIAN shunt, sepsis improved, s/p surgery on decayed teeth and tongue injury, now more alert and afebrile. Vitals . Vital Signs Date Time Temp Pulse Resp B/P Pulse Ox O2 Delivery O2 Flow Rate FiO2 05/18/16 09:39 99 T-piece 28 05/18/16 06:00 68 05/18/16 04:00 72 05/18/16 04:00 98.1 72 26 155/77 100 05/18/16 02:00 68 05/18/16 00:00 98.7 68 23 129/64 100 05/18/16 00:00 68 05/17/16 22:00 58 05/17/16 21:26 100 T-piece 6.00 28 05/17/16 20:00 98.1 64 25 166/85 99 05/17/16 20:00 80 05/17/16 19:00 98 T-Piece 5.00 28 05/17/16 16:00 98.3 58 18 160/72 98 05/17/16 16:00 58 05/17/16 12:00 60 05/17/16 12:00 98.1 60 16 191/91 100 05/17/16 05/17/16 05/18/16 15:00 23:00 07:00 Intake Total 490 ml 497 ml 461 ml Output Total 0 ml 0 ml 0 ml Balance 490 ml 497 ml 461 ml Physical Exam Head Head Remarks Intubated, off sedation, eyes open to stimulation, pupils are 3mm reactive, corneals and gag reflexes are present. She flexes both LEs to stimulation No Cuellar or Babinski EVD site dry, intact Left scalp wound dry and intact Angelica Coma Scale Best Eye Openin - Spontaneous Best Verbal: 1 - None Best Motor: 4 - Withdraws to pain Cardiac Cardiac: Regular Rate & Rhythm Gastrointestinal Gastrointestinal: Soft Musculoskeletal Extremities Upper Extremities Deltoid Bicep Tricep HI W. Ext Right Left Lower Extremeties Ilio Quad Plantar Dorsi EHL Right Left Musculoskeletal Remarks Tone on the left arm and leg better than on the right Objective Labs Last Impressions Chest X-Ray 05/17/16 0600 Signed Impressions: Service Date/Time: Tuesday, May 17, 2016 04:59 - CONCLUSION: 1. Minimal basilar atelectasis. Cardiomegaly. Quinn Bateman MD Head CT 05/12/16 0000 Signed Impressions: Service Date/Time: Thursday, May 12, 2016 15:16 - CONCLUSION: 1. No lesion of the left middle cerebral artery infarct with marked reduction in the mass effect and the brain recommend now below the level of the craniectomy. 2. No acute hemorrhage is identified. Alessandro Schultz MD Skull X-Ray 05/08/16 0000 Signed Impressions: Service Date/Time: May 10:16 - CONCLUSION: Shunt set to 70-80 mm H2O. Fei Snyder MD Head CTA 05/02/16 0600 Signed Impressions: Service Date/Time: Monday, May 02, 2016 04:32 - CONCLUSION: Satisfactory appearance post aneurysm coiling Fei Snyder MD Abdomen/Pelvis CT 04/24/16 1416 Signed Impressions: Service Date/Time: March 14:39 - CONCLUSION: Mild small bowel ileus with scattered air-fluid levels. Bibasilar lung consolidation with associated small effusions. Significant soft tissue fluid accumulation with edematous changes throughout the abdominal wall. Nasogastric tube in good position. Saqib Garcia MD Neck CTA 04/11/16 1151 Signed Impressions: Service Date/Time: Monday, April 11, 2016 12:01 - CONCLUSION: Negative for hemodynamically significant carotid stenosis. Ricardo Castellanos MD FACR Cerebral Arteriogram 04/11/16 0000 Signed Impressions: Service Date/Time: Monday, April 11, 2016 14:18 - CONCLUSION: 1. 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 This is the aneurysm felt responsible for the intracranial hemorrhage. 2. Small 4 mm left M1 segment aneurysm. Attempts at embolizing this aneurysm were unsuccessful due to the broad based nature of the aneurysm. Endovascular repair of this aneurysm could not be performed. Kennedy Thibodeaux Jr., MD Assessment & Plan Assessment Stable clinically, now past vasospasm risk, improved sepsis. Plan replacement of bone flap in the future Critical Care Time (minutes): 10 Kolby Morris May 18, 2016 10:08
--- NOTE | 2016-05-18 16:28 | PD.CONS ---
HPI Service [facility] Consult Requested By Dr. Enamorado Reason for Consult Assume medical management. Primary Care Physician Unknown Diagnoses: History of Present Illness This is a 46-year-old female with past medical history of hypertension who was found unresponsive at her home on April 11. Paramedics arrived and she was ventilated with bag mask. She was endotracheal intubated in the emergency department where a head CT showed a large left hemispheric intraparenchymal hemorrhage with subarachnoid blood. Subsequent CTA revealed a left middle cerebral aneurysm. The patient was admitted to the intensive care unit under Dr. Meléndez. She underwent a ventriculostomy and subsequently underwent coiling of the left middle cerebral aneurysm. FITNESS LEADER shunt placed 05/07. The patient had left decompressive craniotomy on April 25 with evacuation of temporal hematoma. The patient had PEG placement April 28. The patient underwent tracheostomy on April 29. The patient was also treated for sepsis secondary to pneumonia and UTI. She is now currently off all antibiotics. The patient also at some point suffered a tongue laceration and underwent repair of the tongue laceration and upper teeth extraction on May [address] Booth. From discussion with the nurse today, her heart rate has been running slightly lower so her labetalol was held. A bone flap replacement is being scheduled for next week per Dr. Meléndez. The patient has been on TPs since May 15. Per review of the chart she has had very poor neurologic recovery. Palliative care had been consulted several weeks ago. At this point the family desires aggressive care and the patient remains a full code. The patient also was found to have findings of hypertrophic obstructive cardiomyopathy on 2-D echocardiogram, but is not considered to be a candidate for septal ablation due to her devastating neurologic injury. I discussed the patient's care with Dr. Enamorado, commercial center manager who had been caring for her. Review of systems not obtainable secondary to the patient's encephalopathy. Past Family Social History Allergies: Coded Allergies: No Known Allergies (Verified , 04/11/16) Past Medical History Hypertension Left intracerebral hemorrhage as above Past Surgical History Ventriculostomy, left decompressive craniectomy and evacuation of temporal lobe hematoma, PEG, central line, PEG tube, FITNESS LEADER shunt Reported Medications Allergies Coded Allergies Type Severity Reaction Last Updated Verified No Known Allergies 04/11/16 Yes Active Scripts Medications Dose Route/Sig Days Date Category Anaprox Ds (Naproxen Sodium) 550 Mg Tab 1 Tab PO BIDPRN 05/20/10 Rx Coreg 12.5 mg (Carvedilol) 12.5 Mg Tab 12.5 Mg PO BID 05/20/10 Reported Prinivil (Lisinopril) 20 Mg Tab 20 Mg PO DAILY 05/20/10 Reported Family History Not obtainable at this time secondary to patient's neurologic status Social History Not obtainable at this time. Physical Exam Vital Signs Vital Signs Date Time Temp Pulse Resp B/P Pulse Ox O2 Delivery O2 Flow Rate FiO2 05/18/16 14:00 68 05/18/16 12:00 68 05/18/16 12:00 98.6 56 20 169/92 100 05/18/16 10:00 76 05/18/16 09:39 99 T-piece 28 05/18/16 08:00 64 05/18/16 08:00 99 T-Piece 5.00 28 05/18/16 08:00 98.1 64 25 135/69 99 05/18/16 06:00 68 05/18/16 04:00 72 05/18/16 04:00 98.1 72 26 155/77 100 05/18/16 02:00 68 05/18/16 00:00 98.7 68 23 129/64 100 05/18/16 00:00 68 05/17/16 22:00 58 05/17/16 21:26 100 T-piece 6.00 28 05/17/16 20:00 98.1 64 25 166/85 99 05/17/16 20:00 80 05/17/16 19:00 98 T-Piece 5.00 28 05/17/16 16:00 98.3 58 18 160/72 98 05/17/16 16:00 58 Physical Exam GENERAL: Well-nourished, well-developed middle-aged female patient. SKIN: Warm and dry. Oropharyngeal: The patient has tongue swelling in the tongue is protruding from her mouth with a Vaseline gauze bandage wrapped around it. Bite guard in place. EYES: No scleral icterus. No injection or drainage. NECK: Supple, trachea midline. No JVD or lymphadenopathy. CARDIOVASCULAR: Regular rate and rhythm. No peripheral edema. RESPIRATORY: Breath sounds equal but coarse bilaterally. No accessory muscle use. GASTROINTESTINAL: Abdomen soft, non-tender, nondistended. PEG site intact. EXTREMITIES: No cyanosis, or edema. NEUROLOGICAL: Awake, alert. She has leftward gaze preference. She does not follow commands. Does not track with her eyes. Result Diagram: 05/17/16 0355 05/17/16 0355 Imaging Last 72 hours Impressions Chest X-Ray 05/17/16 0600 Signed Impressions: Service Date/Time: Tuesday, May 17, 2016 04:59 - CONCLUSION: 1. Minimal basilar atelectasis. Cardiomegaly. Quinn Bateman MD Assessment and Plan Problem List: (1) Subarachnoid hemorrhage from aneurysm of left middle cerebral artery Status: Acute (2) Cerebral aneurysm rupture Status: Acute (3) Hypertension Status: Chronic (4) Encephalopathy Status: Chronic (5) Malnutrition Status: Acute (6) Hydrocephalus Status: Acute (7) Sequelae of nontraumatic intracerebral hemorrhage Status: Acute (8) 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 s/p Dr. Meléndez performed left decompressive craniotomy 04/25 with evacuation of temporal hematoma. FITNESS LEADER shunt placed 05/07. NS plans bone flap next week. -Malignant Hypertension (Hypertensive emergency) on admission -- s/p permissive Hypertension for prevention of vasospasm, s/p 3 weeks of Nimotop therapy for vasospasm prevention. in SAH patient. now targeting SBP < 160. Continue Norvasc 10 q day, HCTZ 25 mg daily 05/16. Decrease labetolol due to bradycardia. Increase hydralazine 50->75 mg q8. 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 Not a candidate for surgical intervention due to devastating neuro injury -Acute respiratory failure (now chronic resp failure) secondary to SAH / ICH. s/ p tracheostomy 04/29. Cristino TP 23/03. Continue DuoNeb q 4 hours as needed -Severe tongue lacerations/p tongue laceration repair by Dr. Booth 05/16/16 -Mild protein calorie malnutrition - s/p PEG 04/28. Tolerating tube feeds (Jevity ) at goal of 50 cc/hr (-25-30 kcal/kg/day) -Mild transaminitis. probable fatty liver. monitor periodically. obtain liver u/ s if upward trend. -Anemia of chronic inflammation / disease. Hgb stable with no signs of active bleeding -Sepsis secondary to pneumonia and prior UTI - resolved, now off all abx. -Prophylaxis: GI - oral Zantac q 12 DVT - SCDs; Lovenox 40 q day -Rehab: PT / OT Will eventually need LTACH / SNF -IV Access: Peripheral iv Ann Marie Hart MD May 18, 2016 16:28
[2016-05-18] MEDS: MORPHINE SULFATE 4 MG/ML INJ IV PUSH PRN (16:52)
[2016-05-18] MEDS: ACETAMINOPHEN/HYDROcodone 325 MG/5 MG TAB PO PRN (16:54)
[2016-05-18] MEDS: hydrALAZINE HCL 25 MG TAB TUBE SCH (22:00)
[2016-05-19] VITALS (13 sets, daily range): BP systolic 127–179; BP diastolic 78–93; PULSE 60–80; RESP 11–26; TEMP 98.1–98.7; O2SAT 100
[2016-05-19] MEDS: CHLORHEXIDINE GLUCONATE 2 % 1 PACK (2 CLOTHS) TOP SCH ×2 (02:58→21:37)
[2016-05-19] MEDS: hydrALAZINE HCL 25 MG TAB TUBE SCH ×3 (04:08→21:37)
[2016-05-19] MEDS: LABETALOL HCL 300 MG TAB PO SCH ×3 (04:09→21:37)
[2016-05-19] MEDS: RANITIDINE HCL 150 MG TAB PO SCH ×2 (09:34→21:36)
[2016-05-19] MEDS: HYDROCHLOROTHIAZIDE 25 MG TAB PO SCH (09:34)
[2016-05-19] MEDS: ENOXAPARIN SODIUM 40 MG/0.4 ML SYRINGE SQ SCH (09:34)
[2016-05-19] MEDS: SODIUM CHLORIDE 0.9% FLUSH 5 ML FLUSH IVF SCH ×2 (09:35→21:36)
--- NOTE | 2016-05-19 09:45 | HHI.NSPN ---
(Genna Madrid) History Chief Complaint: status post coil for aneurysm (Genna Madrid) Interval History 04/12/16: Patient had an aneurysm coiled yesterday, intubated and sedated, ICP stable overnight 04/13/16: Increased ICP overnight, improved after a 23% saline bolus 04/14/16: ICP stable overnight 04/15/16: ICP stable, CTA stable no vasospasm 04/16/16: ICP slight increase overnight now stabilized, intubated and sedated 04/17/16: ICP increased yesterday afternoon, repeat CTA and CT stable, no vasospasm, no new hemorrhage, hypothermia overnight 04/21/16: increasing ICP over the weekend, getting 23% every 6 hours PRN. 04/22/16: ICP responding over night to 23% saline, CT and CTA planned this am. Nimbex off since yesterday. 04/23/16: ICP stable overnight, SBP increasing today RN adjusting pressors, HGB improved after 2 units of PRBC, no signs of active bleeding 04/24/16: ICP increased overnight with stimulation but not sustained, low HGB again today receiving PRBC this am 04/25/16: ICP max 38 overnight, currently 10, no family at bedside. 04/26/16: She has ventriculostomy drain in place. She underwent left decompressive craniectomy yesterday 04/[address] Meléndez due to elevated ICPs. Today, ICPs improved, currently 4. 04/27/16: intermittent spikes in ICPs overnight in low 20's controlled with hyperosmotic bolus. Currently 9. well sedated. 04/28/16: ICP stable between 9-14 per RN. EVD draining blood tinged CSF, flap firm non-pulsatile 04/29/16: ICP stable overnight, PEG yesterday, Trach today. 04/30/16: EVD clamped 05/01/16: EVD clamped, ICP max 17, currently 14. 05/02/16: EVD draining, ICP 9, no sedation 05/03/16: Pt with eyes open. Not following commands. Pupils 4mm bilaterally reactive bilaterally. Ventriculostomy in place at [id number]. ICP 8. 9: Pt with eyes open. Not following commands. Pupils 4mm bilaterally reactive bilaterally. Ventriculostomy in place at [id number]. ICP 8. 9: Day 24 after PCOM aneurysm bleed and coiling, Pupils reactives, eyes now open and she is more alert. EVD was clamped this am, remains straw coloured. 05/06/16: eyes open, very mild flexion to deep pain in the upper extremities. 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 for DRAWING HAND shunt placement 05/08/16: POD 1 from shunt placement, eyes open, does not track 05/09/16: POD 2 no withdrawal on exam today and eyes are more deviated 05/10/16: EEG negative for seizures yesterday, labile HTN, stable neuro hoff 05/11/16: no changes overnight 05/12/16: no changes per nurse 05/13/16: stable overnight 05/14/16: stable overnight, increase angioedema 05/15/16: stable overnight, angioedema slightly improved with Decadron 05/16/16: stable overnight, angioedema seems worse this am. 05/18/16 Day 37 after coiling of aneurysm, left frontal bone flap off, s/p right frontal DRAWING HAND shunt, sepsis improved, s/p surgery on decayed teeth and tongue injury, now more alert and afebrile. 05/19/16: stable overnight, left flap sunken, tongue appearance approved status post repair (Genna Madrid) Exam Results Vital Signs Date Time Temp Pulse Resp B/P Pulse Ox O2 Delivery O2 Flow Rate FiO2 05/19/16 07:00 100 T-Piece 7.00 28 05/19/16 06:00 70 05/19/16 04:00 98.1 20 179/93 Intake and Output 05/18/16 05/18/16 05/19/16 08:00 16:00 00:00 Intake Total 461 ml 446 ml 473 ml Output Total 0 ml 0 ml 0 ml Balance 461 ml 446 ml 473 ml (Genna Madrid) Physical Examination Tracheostomy. Tongue appears intact, angioedema improved, listing out of the left side of her mouth covered in wet dressing. Bite block in place right molars. Spontaneous eye opening. Pupils are 4mm and reactive to light. Conjugate gaze. Tracks with eyes. Flap is sunken. Incision are dry and intact. No erythema, edema or drainage. No withdrawal x 4. Per RN spontaneous moves the left. (Genna Madrid) Lab, Micro, Other Results Last Impressions Chest X-Ray 05/17/16 0600 Signed Impressions: Service Date/Time: Tuesday, May 17, 2016 04:59 - CONCLUSION: 1. Minimal basilar atelectasis. Cardiomegaly. Quinn Bateman MD Head CT 05/12/16 0000 Signed Impressions: Service Date/Time: Thursday, May 12, 2016 15:16 - CONCLUSION: 1. No lesion of the left middle cerebral artery infarct with marked reduction in the mass effect and the brain recommend now below the level of the craniectomy. 2. No acute hemorrhage is identified. Alessandro Schultz MD Skull X-Ray 05/08/16 0000 Signed Impressions: Service Date/Time: May 10:16 - CONCLUSION: Shunt set to 70-80 mm H2O. Fei Snydre MD Head CTA 05/02/16 0600 Signed Impressions: Service Date/Time: Monday, May 02, 2016 04:32 - CONCLUSION: Satisfactory appearance post aneurysm coiling Fei Snyder MD Abdomen/Pelvis CT 04/24/16 1416 Signed Impressions: Service Date/Time: March 14:39 - CONCLUSION: Mild small bowel ileus with scattered air-fluid levels. Bibasilar lung consolidation with associated small effusions. Significant soft tissue fluid accumulation with edematous changes throughout the abdominal wall. Nasogastric tube in good position. Saqib Garcia MD Neck CTA 04/11/16 1151 Signed Impressions: Service Date/Time: Monday, April 11, 2016 12:01 - CONCLUSION: Negative for hemodynamically significant carotid stenosis. Ricardo Castellanos MD FACR Cerebral Arteriogram 04/11/16 0000 Signed Impressions: Service Date/Time: Monday, April 11, 2016 14:18 - CONCLUSION: 1. 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 This is the aneurysm felt responsible for the intracranial hemorrhage. 2. Small 4 mm left M1 segment aneurysm. Attempts at embolizing this aneurysm were unsuccessful due to the broad based nature of the aneurysm. Endovascular repair of this aneurysm could not be performed. Kennedy Thibodeaux Jr., MD (Genna Madrid) Medical Decision Making Impression and Plan Impression: 1. Neurologic exam stable following endovascular coiling of ruptured cerebral aneurysm with subsequent left decompressive craniotomy 04/14/16 CT angiogram stable: Status post endovascular repair of left supraclinoid aneurysm. Left M1 segment aneurysm stable 04/16/[address] and CTA stable. No vasospasm, no new hemorrhage. 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 Midline shift has resolved but there is persistent herniation of brain at the craniotomy defect. No new or acute blood demonstrated. Mild to moderate ventriculomegaly, increased. Codman Valve adjusted to [id number]. 05/09/16: stable head CT, improving ventriculomegaly 05/09/16: Negative EEG 05/12/16: Head CT stable 2. Angioedema and Tongue laceration- s/p repair with Dr. Booth 05/16/16 Plan: Follow up head CT Monday 05/21 OR planned for replacement of skull flap 05/22. Continue tube feeds as tolerated. Hospitalist following for medical management. Zantac for ulcer prophylaxis Lovenox for DVT prophylaxis Physical therapy. (Genna Madrid) Attending Statement On the date of this note, the undersigned had a [id number] encounter with the patient. I personally examined the patient, obtained pertinent history, and reviewed the electronic medical record including pertinent laboratory results and imaging studies. I personally developed the treatment plan and perform medical decision making. All of the above was performed in the presence of the physician's assistant professor of chemistry, who has scribed my findings into the medical record as noted above. (Sherwin Meléndez MD) Genna Madrid May 19, 2016 09:45 Sherwin Meléndez MD May 24, 2016 14:49
[2016-05-19] MEDS: hydrALAZINE HCL 20 MG/ML VIAL IV PUSH PRN (12:57)
--- NOTE | 2016-05-19 19:43 | HHI.PR ---
Subjective Remarks no acute issues reported. HR wnl. Objective Vitals Vital Signs Date Time Temp Pulse Resp B/P Pulse Ox O2 Delivery O2 Flow Rate FiO2 05/19/16 16:00 98.3 76 25 132/86 100 05/19/16 12:00 98.5 70 11 165/90 05/19/16 11:12 100 T-piece 28 05/19/16 10:00 68 05/19/16 08:00 66 05/19/16 08:00 98.1 66 22 146/79 100 05/19/16 07:00 100 T-Piece 7.00 28 05/19/16 06:00 70 05/19/16 04:00 63 05/19/16 04:00 98.1 63 20 179/93 100 05/19/16 02:00 60 05/19/16 00:00 64 05/19/16 00:00 98.1 64 21 153/78 100 05/18/16 22:00 56 05/18/16 21:35 100 T-piece 28 05/18/16 20:00 58 05/18/16 20:00 100 T-Piece 5.00 28 05/18/16 20:00 97.8 61 17 163/88 100 I/O 05/18/16 05/18/16 05/18/16 05/19/16 05/19/16 05/19/16 07:00 15:00 23:00 07:00 15:00 23:00 Intake Total 461 ml 446 ml 473 ml 580 ml 609 ml Output Total 0 ml 0 ml 0 ml Balance 461 ml 446 ml 473 ml 580 ml 609 ml IV Total 83 ml 84 ml 64 ml 78 ml 89 ml Tube Feeding 378 ml 362 ml 289 ml 382 ml 520 ml Other 120 ml 120 ml Stool Total 0 ml 0 ml 0 ml Tube Feeding Residual Discard 0 ml 0 ml 0 ml # Voids 3 3 2 2 3 # Bowel Movements 0 Result Diagram: 05/17/16 0355 05/17/16 0355 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 Status: Acute (2) Cerebral aneurysm rupture Status: Acute (3) Hypertension Status: Chronic (4) Encephalopathy Status: Chronic (5) Malnutrition Status: Acute (6) Hydrocephalus Status: Acute (7) Sequelae of nontraumatic intracerebral hemorrhage Status: Acute (8) 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 s/p Dr. Meléndez performed left decompressive craniotomy 04/25 with evacuation of temporal hematoma. TECHNICAL SYSTEM ANALYST shunt placed 05/07. NS plans bone flap next week. -Malignant Hypertension (Hypertensive emergency) on admission -- s/p permissive Hypertension for prevention of vasospasm, s/p 3 weeks of Nimotop therapy for vasospasm prevention. in SAH patient. now targeting SBP < 160. Continue Norvasc 10 q day, HCTZ 25 mg daily 05/16, labetalol 300 mg PO BID. Increase hydralazine 75->100 mg q8. 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 Not a candidate for surgical intervention due to devastating neuro injury -Acute respiratory failure (now chronic resp failure) secondary to SAH / ICH. s/ p tracheostomy 04/29. Cristino TP 23/03. Continue DuoNeb q 4 hours as needed -Severe tongue lacerations/p tongue laceration repair by Dr. Booth 05/16/16 -Mild protein calorie malnutrition - s/p PEG 04/28. Tolerating tube feeds (Jevity ) at goal of 50 cc/hr (-25-30 kcal/kg/day) -Mild transaminitis. probable fatty liver. monitor periodically. obtain liver u/ s if upward trend. -Anemia of chronic inflammation / disease. Hgb stable with no signs of active bleeding -Sepsis secondary to pneumonia and prior UTI - resolved, now off all abx. -Prophylaxis: GI - oral Zantac q 12 DVT - SCDs; Lovenox 40 q day -Rehab: PT / OT Will eventually need LTACH / SNF -IV Access: Peripheral iv Ann Marie Hart MD May 19, 2016 19:43
[2016-05-20] VITALS (18 sets, daily range): BP systolic 96–158; BP diastolic 62–97; PULSE 76–100; RESP 13–32; TEMP 98–99.2; O2SAT 96–100
[2016-05-20] MEDS: MORPHINE SULFATE 4 MG/ML INJ IV PUSH PRN (04:01)
[2016-05-20] MEDS: LABETALOL HCL 300 MG TAB PO SCH ×3 (05:39→21:39)
[2016-05-20] MEDS: hydrALAZINE HCL 25 MG TAB TUBE SCH ×4 (05:39→21:39)
--- NOTE | 2016-05-20 09:04 | HHI.NSPN ---
(Genna Madrid) History Chief Complaint: status post coil for aneurysm (Genna Madrid) Interval History 04/12/16: Patient had an aneurysm coiled yesterday, intubated and sedated, ICP stable overnight 04/13/16: Increased ICP overnight, improved after a 23% saline bolus 04/14/16: ICP stable overnight 04/15/16: ICP stable, CTA stable no vasospasm 04/16/16: ICP slight increase overnight now stabilized, intubated and sedated 04/17/16: ICP increased yesterday afternoon, repeat CTA and CT stable, no vasospasm, no new hemorrhage, hypothermia overnight 04/21/16: increasing ICP over the weekend, getting 23% every 6 hours PRN. 04/22/16: ICP responding over night to 23% saline, CT and CTA planned this am. Nimbex off since yesterday. 04/23/16: ICP stable overnight, SBP increasing today RN adjusting pressors, HGB improved after 2 units of PRBC, no signs of active bleeding 04/24/16: ICP increased overnight with stimulation but not sustained, low HGB again today receiving PRBC this am 04/25/16: ICP max 38 overnight, currently 10, no family at bedside. 04/26/16: She has ventriculostomy drain in place. She underwent left decompressive craniectomy yesterday 04/[address] Meléndez due to elevated ICPs. Today, ICPs improved, currently 4. 04/27/16: intermittent spikes in ICPs overnight in low 20's controlled with hyperosmotic bolus. Currently 9. well sedated. 04/28/16: ICP stable between 9-14 per RN. EVD draining blood tinged CSF, flap firm non-pulsatile 04/29/16: ICP stable overnight, PEG yesterday, Trach today. 04/30/16: EVD clamped 05/01/16: EVD clamped, ICP max 17, currently 14. 05/02/16: EVD draining, ICP 9, no sedation 05/03/16: Pt with eyes open. Not following commands. Pupils 4mm bilaterally reactive bilaterally. Ventriculostomy in place at [id number]. ICP 8. 9: Pt with eyes open. Not following commands. Pupils 4mm bilaterally reactive bilaterally. Ventriculostomy in place at [id number]. ICP 8. 9: Day 24 after PCOM aneurysm bleed and coiling, Pupils reactives, eyes now open and she is more alert. EVD was clamped this am, remains straw coloured. 05/06/16: eyes open, very mild flexion to deep pain in the upper extremities. 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 for HOSPITAL UNIT CLERK shunt placement 05/08/16: POD 1 from shunt placement, eyes open, does not track 05/09/16: POD 2 no withdrawal on exam today and eyes are more deviated 05/10/16: EEG negative for seizures yesterday, labile HTN, stable neuro hoff 05/11/16: no changes overnight 05/12/16: no changes per nurse 05/13/16: stable overnight 05/14/16: stable overnight, increase angioedema 05/15/16: stable overnight, angioedema slightly improved with Decadron 05/16/16: stable overnight, angioedema seems worse this am. 05/18/16 Day 37 after coiling of aneurysm, left frontal bone flap off, s/p right frontal HOSPITAL UNIT CLERK shunt, sepsis improved, s/p surgery on decayed teeth and tongue injury, now more alert and afebrile. 05/19/16: stable overnight, left flap sunken, tongue appearance approved status post repair 05/20/16: stable overnight, left flap sunken, tracks with eyes, stable neuro exam (Genna Madrid) Exam Results Vital Signs Date Time Temp Pulse Resp B/P Pulse Ox O2 Delivery O2 Flow Rate FiO2 05/20/16 08:12 96 50 05/20/16 07:00 93 05/20/16 04:00 98.4 30 126/80 05/19/16 21:45 T-piece 05/19/16 07:00 7.00 Intake and Output 05/19/16 05/19/16 05/20/16 08:00 16:00 00:00 Intake Total 580 ml 609 ml 0 ml Balance 580 ml 609 ml 0 ml (Genna Madrid) Physical Examination Tracheostomy on O2. Tongue appears intact, angioedema improved, listing out of the left side of her mouth covered in wet dressing. Bite block in place right molars. Spontaneous eye opening. Pupils are 4mm and reactive to light. Conjugate gaze. Tracks with eyes. Flap is sunken. Incision are dry and intact. No erythema, edema or drainage. No withdrawal x 3. Left upper slight flexion of fingers to pain. Does not follow commands. (Genna Madrid) Lab, Micro, Other Results Last Impressions Chest X-Ray 05/17/16 0600 Signed Impressions: Service Date/Time: Tuesday, May 17, 2016 04:59 - CONCLUSION: 1. Minimal basilar atelectasis. Cardiomegaly. Quinn Bateman MD Head CT 05/12/16 0000 Signed Impressions: Service Date/Time: Thursday, May 12, 2016 15:16 - CONCLUSION: 1. No lesion of the left middle cerebral artery infarct with marked reduction in the mass effect and the brain recommend now below the level of the craniectomy. 2. No acute hemorrhage is identified. Alessandro Schultz MD Skull X-Ray 05/08/16 0000 Signed Impressions: Service Date/Time: May 10:16 - CONCLUSION: Shunt set to 70-80 mm H2O. Fei Snyder MD Head CTA 05/02/16 0600 Signed Impressions: Service Date/Time: Monday, May 02, 2016 04:32 - CONCLUSION: Satisfactory appearance post aneurysm coiling Fie Snyder MD Abdomen/Pelvis CT 04/24/16 1416 Signed Impressions: Service Date/Time: March 14:39 - CONCLUSION: Mild small bowel ileus with scattered air-fluid levels. Bibasilar lung consolidation with associated small effusions. Significant soft tissue fluid accumulation with edematous changes throughout the abdominal wall. Nasogastric tube in good position. Saqib Garcia MD Neck CTA 04/11/16 1151 Signed Impressions: Service Date/Time: Monday, April 11, 2016 12:01 - CONCLUSION: Negative for hemodynamically significant carotid stenosis. Ricardo Castellanos MD FACR Cerebral Arteriogram 04/11/16 0000 Signed Impressions: Service Date/Time: Monday, April 11, 2016 14:18 - CONCLUSION: 1. 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 This is the aneurysm felt responsible for the intracranial hemorrhage. 2. Small 4 mm left M1 segment aneurysm. Attempts at embolizing this aneurysm were unsuccessful due to the broad based nature of the aneurysm. Endovascular repair of this aneurysm could not be performed. Kennedy Thibodeaux Jr., MD (Genna Madrid) Medical Decision Making Impression and Plan Impression: 1. Neurologic exam stable following endovascular coiling of ruptured cerebral aneurysm with subsequent left decompressive craniotomy 04/14/16 CT angiogram stable: Status post endovascular repair of left supraclinoid aneurysm. Left M1 segment aneurysm stable 04/16/[address] and CTA stable. No vasospasm, no new hemorrhage. 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 Midline shift has resolved but there is persistent herniation of brain at the craniotomy defect. No new or acute blood demonstrated. Mild to moderate ventriculomegaly, increased. Codman Valve adjusted to [id number]. 05/09/16: stable head CT, improving ventriculomegaly 05/09/16: Negative EEG 05/12/16: Head CT stable 2. Angioedema and Tongue laceration- s/p repair with Dr. Booth 05/16/16 Plan: Follow up head CT Monday 05/21 Pre-op labs Weds. am. OR planned for replacement of left skull flap 05/22. Continue tube feeds as tolerated. Hospitalist following for medical management. Zantac for ulcer prophylaxis Lovenox for DVT prophylaxis Physical therapy. (Genna Madrid) Attending Statement On the date of this note, the undersigned had a [id number] encounter with the patient. I personally examined the patient, obtained pertinent history, and reviewed the electronic medical record including pertinent laboratory results and imaging studies. I personally developed the treatment plan and perform medical decision making. All of the above was performed in the presence of the physician's addictions counselor assistant, who has scribed my findings into the medical record as noted above. (Sherwin Meléndez MD) Genna Madrid May 20, 2016 09:04 Sherwin Meléndez MD May 24, 2016 14:49
[2016-05-20] MEDS: ENOXAPARIN SODIUM 40 MG/0.4 ML SYRINGE SQ SCH (09:26)
[2016-05-20] MEDS: RANITIDINE HCL 150 MG TAB PO SCH ×2 (09:26→21:39)
[2016-05-20] MEDS: ACETAMINOPHEN/HYDROcodone 325 MG/5 MG TAB PO PRN ×2 (09:27→15:54)
[2016-05-20] MEDS: SODIUM CHLORIDE 0.9% FLUSH 5 ML FLUSH IVF SCH ×2 (09:27→21:40)
[2016-05-20] MEDS: HYDROCHLOROTHIAZIDE 25 MG TAB PO SCH (09:27)
--- NOTE | 2016-05-20 12:38 | HHI.PR ---
Subjective Remarks Afebrile. No acute concerns reported. Objective Vitals Vital Signs Date Time Temp Pulse Resp B/P Pulse Ox O2 Delivery O2 Flow Rate FiO2 05/20/16 12:00 98.0 80 25 119/76 99 05/20/16 12:00 80 05/20/16 10:00 76 05/20/16 09:00 117/76 05/20/16 08:12 96 50 05/20/16 08:00 82 05/20/16 08:00 98.6 82 13 96/62 100 05/20/16 08:00 100 T-Piece 6.00 28 05/20/16 07:00 93 05/20/16 06:00 89 05/20/16 04:00 98.4 89 30 126/80 100 05/20/16 04:00 92 05/20/16 02:00 82 05/20/16 00:00 87 05/20/16 00:00 98.4 96 32 128/80 98 05/19/16 22:00 72 05/19/16 21:45 100 T-piece 28 05/19/16 20:00 80 05/19/16 20:00 98.7 70 26 127/81 100 05/19/16 19:00 100 T-Piece 28 05/19/16 18:00 71 05/19/16 16:00 98.3 76 25 132/86 100 I/O 05/19/16 05/19/16 05/19/16 05/20/16 05/20/16 05/20/16 07:00 15:00 23:00 07:00 15:00 23:00 Intake Total 580 ml 609 ml 0 ml 420 ml Balance 580 ml 609 ml 0 ml 420 ml Intake Oral 0 ml 0 ml IV Total 78 ml 89 ml 0 ml 0 ml Tube Feeding 382 ml 520 ml 300 ml Other 120 ml 120 ml # Voids 2 3 1 3 # Bowel Movements 0 1 0 Result Diagram: 05/17/16 0355 05/17/16 0355 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 Status: Acute (2) Cerebral aneurysm rupture Status: Acute (3) Hypertension Status: Chronic (4) Encephalopathy Status: Chronic (5) Malnutrition Status: Acute (6) Hydrocephalus Status: Acute (7) Sequelae of nontraumatic intracerebral hemorrhage Status: Acute (8) 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 s/p Dr. Meléndez performed left decompressive craniotomy 04/25 with evacuation of temporal hematoma. CRACKLING PRESS OPERATOR shunt placed 05/07. NS plans bone flap on 05/22. -Malignant Hypertension (Hypertensive emergency) on admission -- s/p permissive Hypertension for prevention of vasospasm, s/p 3 weeks of Nimotop therapy for vasospasm prevention. in SAH patient. now targeting SBP < 160. Continue Norvasc 10 q day, HCTZ 25 mg daily 05/16, labetalol 300 mg PO BI, hydralazine 100 mg q8. 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 Not a candidate for surgical intervention due to devastating neuro injury -Acute respiratory failure (now chronic resp failure) secondary to SAH / ICH. s/ p tracheostomy 04/29. Cristino TP 23/03. Continue DuoNeb q 4 hours as needed -Severe tongue lacerations/p tongue laceration repair by Dr. Booth 05/16/16 -Mild protein calorie malnutrition - s/p PEG 04/28. Tolerating tube feeds (Jevity ) at goal of 50 cc/hr (-25-30 kcal/kg/day) -Mild transaminitis. probable fatty liver. monitor periodically. obtain liver u/ s if upward trend. -Anemia of chronic inflammation / disease. Hgb stable with no signs of active bleeding -Sepsis secondary to pneumonia and prior UTI - resolved, now off all abx. -Prophylaxis: GI - oral Zantac q 12 DVT - SCDs; Lovenox 40 q day -Rehab: PT / OT Will eventually need LTACH / SNF -IV Access: Peripheral iv Ann Marei Hart MD May 20, 2016 12:38
--- NOTE | 2016-05-20 15:55 | MP ---
cc: YOLANDA BOOTH DMD DATE OF SURGERY: 05/16/2016 PREOPERATIVE DIAGNOSIS: Tongue laceration/injury [id number]. Decayed/periodontally teeth 6, 7, 8, 9, 10, 11. POSTOPERATIVE DIAGNOSIS Tongue laceration/injury [id number]-[id number]. Decayed/periodontally teeth 6, 7, 8, 9, 10, 11. PROCEDURE: 1. Examination under anesthesia. 2. Extraction of teeth 6, 7, 9, 10, 11, and the root of #8. 3. Closure and repair of the tongue laceration/soft tissue injury, [address] Booth. ESTIMATED BLOOD LOSS: Minimal. ANESTHESIA: General, also 2% lidocaine with 1:100,000 epinephrine approximately 5 cc. DISPOSITION The patient tolerated the procedure well and was taken back to the PACU. INDICATIONS FOR PROCEDURE This is a 46-year-old female who has been in this hospital several weeks secondary to a cerebral vascular accident. She is trache'd. She has had coiling done. I was consulted just two days ago regarding tongue swelling. It appears that it has been there for several weeks, and the angioedema occurred to the tongue. She had a bite block the other day when I had seen here and there was no dpxbbtc-gej-rjfttbl tear. There was a small soft tissue injury on the ventral surface of the tongue but the top dorsum tongue was stable. I reconsulted again today as the injury has worsened. The patient apparently spit the bite block out and now she has bit zwvwxhp-sbs-pgjgamf from maxillary teeth down to the mandibular. She just bit right vjvagux-vor-eabuvqj. The tongue is just being held on by the edges on both sides. The right side of the edges is about half the site of the tongue on the left side. There is a big hole right through the tongue. The tongue is still pink and well perfused, but the patient keeps on clamping down when I try to open the mouth, and so I am very concerned that the patient will just bite the tongue mgnktvr-jwm-bqqdgdo and off, which will cause total avascular necrosis and of the tongue. At this point, I decided to take the patient to the main operating room to extract the upper periodontally teeth so that she cannot bit down on this tongue and give it a chance to heel, and then close up the tongue laceration is to regenerate good perfusion and health back onto the tongue. I did speak to her daughter, John Hoskins, phone number [phone]. The indication for the procedure, the procedure in detail, what we plan to do, the options of no treatment, and the risks involved with this procedure. Also prognosis is guarded. The patient's daughter has verbally given me the permission to proceed with this procedure. DESCRIPTION OF PROCEDURE: The patient was taken to the operating suite. She was moved to the operating room table. The vent was hooked up to a trache site. At this time a timeout was now taken to identify the patient, the site, the procedure and the surgeon, all were in agreement. Eyes were taped shut. Pressure points were padded. The patient was prepped with Betadine solution. I went to the sink to scrub and came back wearing sterile attire. The patient was draped in normal sterile fashion. Bite block was placed gently on the right side of the mouth and gently opened. We can see that the tongue, mid portion to the anterior was severely edematous. It was pink and healthy. It is warm to the touch. There is a severe inlbrog-yza-eytnphv laceration tear going from the right corner of the tongue coming to the midline. The left side of the tongue including the dorsum and the ventral side appeared more stable than the right side. There was a laceration/tongue damage on the ventral surface of the tongue. Tooth #8 is only a root, 9, 10, 11, 6 and 7 are periodontally involved. They are moving already. At this point we proceeded to remove the upper teeth so she cannot bite down and cut her tongue off between the teeth biting each other. At this point we will plan to save the lower teeth. They appear to be more stable than the upper teeth which is more decayed and periodontally involved. The back of the throat was suctioned. Moistened Ray-Lupe used as a throat pack. Peridex irrigation was done. Elevator forceps was used gently to extract the maxillary teeth, including the root of #8, and then the tongue was debrided, irrigated. A 2-0 Vicryl suture was placed in horizontal mattress position to resuture back the tongue in layers, on the dorsum and the ventral surface, again on the ventral surface ynbpctd-wnx-scnmeqj. The extraction sites were now irrigated. Then Avitene was placed on each of the sites and closed with 2-0 Vicryl suture also. At the end of the procedure, tongue and mouth were cleaned with Peridex. Peridex irrigation was done again. A bite block which goes inside of the mouth was put on the right side because she has the posterior teeth for support, premolars, and then the molar at the bottom. The tongue was pushed back into the mouth. It is stable now. It was well perfused, good bleeding, good tongue. All bite block and Ray-Lupe were removed. All sponge and needle counts were counted. DISCUSSION: Please note that the posterior part of the tongue is normal appearing in terms of size and feeling. It is normal tongue. It is just only the anterior mid portion that is big like a balloon and edematous. This is secondary to the patient biting which caused this to occur. So once we stop this trauma it is my hope and belief that the tongue should resort back to its normal size. Will follow this patient. Yolanda Booth DMD [employer]/ESTHER /11:17 PM /3:07 PM JONATAN
[2016-05-21] VITALS (14 sets, daily range): BP systolic 109–139; BP diastolic 73–92; PULSE 78–98; RESP 15–26; TEMP 97.6–99; O2SAT 99–100
[2016-05-21] MEDS: CHLORHEXIDINE GLUCONATE 2 % 1 PACK (2 CLOTHS) TOP SCH (04:00)
[2016-05-21 04:36] LABS: HEMATOCRIT 39.4 % (35.0-46.0); MEAN CELL VOLUME 78.7 FL (80.0-100.0); MEAN CORPUSCULAR HEMOGLOBIN 25.5 PG (27.0-34.0); MEAN CORPUSCULAR HGB CONC 32.4 % (32.0-36.0); PLATELET COUNT 486 TH/MM3 (150-450); RED CELL DISTRIBUTION WIDTH 20.4 % (11.6-17.2); WHITE BLOOD COUNT 11.8 TH/MM3 (4.0-11.0)
[2016-05-21 04:38] LABS: REVIEW FLAG FINAL
[2016-05-21 04:51] LABS: APTT (PATIENT) 25.5 SEC (22.6-28.8); INTERNATIONAL NORMALIZED RATIO 1.1 RATIO; PROTHROMBIN TIME - PATIENT 11.1 SEC (9.8-11.4)
[2016-05-21 04:59] LABS: BICARBONATE 34.6 MEQ/L (21.0-32.0)
--- NOTE | 2016-05-21 05:22 | RADRPT ---
EXAM DATE/TIME: 05/21/2016 04:33 [facility] COMPARISON: CT BRAIN W/O CONTRAST, May 12, 2016, 15:16. INDICATIONS : Follow up intracranial hemorrhage and shunt placement. RADIATION DOSE: 59.84 CTDIvol (mGy) MEDICAL HISTORY : Cerebrovascular disease. Hypertension. SURGICAL HISTORY : Craniotomy. Tubal ligation.[employer]IST shunt ENCOUNTER: Subsequent ACUITY: 1 month PAIN SCALE: Non-responsive LOCATION: Left cranial TECHNIQUE: Multiple contiguous axial images were obtained of the head. Using automated exposure control and adj ustment of the mA and/or kV according to patient size, radiation dose was kept as low as reasonably a chievable to obtain optimal diagnostic quality images. FINDINGS: There has been prior left frontoparietal region craniectomy. A right frontal ventricular catheter dis devon tip is in the midline and ventricles are normal in size. There are embolization coils in the george on of the left ICA/MCA region. There is no midline shift or herniation. There is less edema compared to the prior study in the left frontal lobe. Posterior fossa structures demonstrate no abnormality. N o acute blood products are identified. No mass lesion or signs of acute infarct are identified. There is decompressed of thickening within the frontal and ethmoid sinus. There is air in the mastoid air cells bilaterally. CONCLUSION: 1. Persistent craniectomy defect with decreased edema and mass effect in the left frontal lobe. The v entricles are normal in size. There is no herniation. No acute blood products are identified. 2. There is decompressed of thickening within the paranasal sinuses and there is fluid in the mastoid air cells. Fei Wilson MD on May 21, 2016 at 5:17 Board Certified Radiologist. This report was verified electronically.
[2016-05-21] MEDS: hydrALAZINE HCL 25 MG TAB TUBE SCH ×3 (06:13→21:11)
[2016-05-21] MEDS: LABETALOL HCL 300 MG TAB PO SCH ×3 (06:13→21:11)
[2016-05-21] MEDS: ACETAMINOPHEN/HYDROcodone 325 MG/5 MG TAB PO PRN ×3 (06:14→23:27)
--- NOTE | 2016-05-21 08:55 | HHI.NSPN ---
(Genna Madrid) History Chief Complaint: status post coil for aneurysm (Genna Madrid) Interval History 04/12/16: Patient had an aneurysm coiled yesterday, intubated and sedated, ICP stable overnight 04/13/16: Increased ICP overnight, improved after a 23% saline bolus 04/14/16: ICP stable overnight 04/15/16: ICP stable, CTA stable no vasospasm 04/16/16: ICP slight increase overnight now stabilized, intubated and sedated 04/17/16: ICP increased yesterday afternoon, repeat CTA and CT stable, no vasospasm, no new hemorrhage, hypothermia overnight 04/21/16: increasing ICP over the weekend, getting 23% every 6 hours PRN. 04/22/16: ICP responding over night to 23% saline, CT and CTA planned this am. Nimbex off since yesterday. 04/23/16: ICP stable overnight, SBP increasing today RN adjusting pressors, HGB improved after 2 units of PRBC, no signs of active bleeding 04/24/16: ICP increased overnight with stimulation but not sustained, low HGB again today receiving PRBC this am 04/25/16: ICP max 38 overnight, currently 10, no family at bedside. 04/26/16: She has ventriculostomy drain in place. She underwent left decompressive craniectomy yesterday 04/[address] Meléndez due to elevated ICPs. Today, ICPs improved, currently 4. 04/27/16: intermittent spikes in ICPs overnight in low 20's controlled with hyperosmotic bolus. Currently 9. well sedated. 04/28/16: ICP stable between 9-14 per RN. EVD draining blood tinged CSF, flap firm non-pulsatile 04/29/16: ICP stable overnight, PEG yesterday, Trach today. 04/30/16: EVD clamped 05/01/16: EVD clamped, ICP max 17, currently 14. 05/02/16: EVD draining, ICP 9, no sedation 05/03/16: Pt with eyes open. Not following commands. Pupils 4mm bilaterally reactive bilaterally. Ventriculostomy in place at [id number]. ICP 8. 9: Pt with eyes open. Not following commands. Pupils 4mm bilaterally reactive bilaterally. Ventriculostomy in place at [id number]. ICP 8. 9: Day 24 after PCOM aneurysm bleed and coiling, Pupils reactives, eyes now open and she is more alert. EVD was clamped this am, remains straw coloured. 05/06/16: eyes open, very mild flexion to deep pain in the upper extremities. 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 for TRUCK CATERER shunt placement 05/08/16: POD 1 from shunt placement, eyes open, does not track 05/09/16: POD 2 no withdrawal on exam today and eyes are more deviated 05/10/16: EEG negative for seizures yesterday, labile HTN, stable neuro hoff 05/11/16: no changes overnight 05/12/16: no changes per nurse 05/13/16: stable overnight 05/14/16: stable overnight, increase angioedema 05/15/16: stable overnight, angioedema slightly improved with Decadron 05/16/16: stable overnight, angioedema seems worse this am. 05/18/16 Day 37 after coiling of aneurysm, left frontal bone flap off, s/p right frontal TRUCK CATERER shunt, sepsis improved, s/p surgery on decayed teeth and tongue injury, now more alert and afebrile. 05/19/16: stable overnight, left flap sunken, tongue appearance approved status post repair 05/20/16: stable overnight, left flap sunken, tracks with eyes, stable neuro exam 05/21/16: stable overnight, neuro exam slightly improves daily (Genna Madrid) Exam Results Vital Signs Date Time Temp Pulse Resp B/P Pulse Ox O2 Delivery O2 Flow Rate FiO2 05/21/16 06:00 78 05/21/16 04:00 98.8 22 131/90 100 05/20/16 22:36 T-piece 6.00 28 Intake and Output 05/20/16 05/20/16 05/21/16 08:00 16:00 00:00 Intake Total 420 ml 461 ml 476 ml Balance 420 ml 461 ml 476 ml (Genna Madrid) Physical Examination Tracheostomy on O2. Tongue appears intact, angioedema improved, listing out of the left side of her mouth covered in wet dressing. Bite block in place right molars. Spontaneous eye opening. Pupils are 4mm and reactive to light. Conjugate gaze. Tracks with eyes. Flap is sunken. Incision are dry and intact. No erythema, edema or drainage. Withdrawal x 3. No WD right UE. Moves all but RUE spontaneously per RN. Does not follow commands. (Genna Madrid) Lab, Micro, Other Results Last Impressions Head CT 05/21/16 0600 Signed Impressions: Service Date/Time: Saturday, May 21, 2016 04:33 - CONCLUSION: 1. Persistent craniectomy defect with decreased edema and mass effect in the left frontal lobe. The ventricles are normal in size. There is no herniation. No acute blood products are identified. 2. There is decompressed of thickening within the paranasal sinuses and there is fluid in the mastoid air cells. Fei Wilson MD Chest X-Ray 05/17/16 0600 Signed Impressions: Service Date/Time: Tuesday, May 17, 2016 04:59 - CONCLUSION: 1. Minimal basilar atelectasis. Cardiomegaly. Quinn Bateman MD Skull X-Ray 05/08/16 0000 Signed Impressions: Service Date/Time: May 10:16 - CONCLUSION: Shunt set to 70-80 mm H2O. Fei Snyder MD Head CTA 05/02/16 0600 Signed Impressions: Service Date/Time: Monday, May 02, 2016 04:32 - CONCLUSION: Satisfactory appearance post aneurysm coiling Fei Snyder MD Abdomen/Pelvis CT 04/24/16 1416 Signed Impressions: Service Date/Time: March 14:39 - CONCLUSION: Mild small bowel ileus with scattered air-fluid levels. Bibasilar lung consolidation with associated small effusions. Significant soft tissue fluid accumulation with edematous changes throughout the abdominal wall. Nasogastric tube in good position. Saqib Garcia MD Neck CTA 04/11/16 1151 Signed Impressions: Service Date/Time: Monday, April 11, 2016 12:01 - CONCLUSION: Negative for hemodynamically significant carotid stenosis. Ricardo Castellanos MD FACR Cerebral Arteriogram 04/11/16 0000 Signed Impressions: Service Date/Time: Monday, April 11, 2016 14:18 - CONCLUSION: 1. 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 This is the aneurysm felt responsible for the intracranial hemorrhage. 2. Small 4 mm left M1 segment aneurysm. Attempts at embolizing this aneurysm were unsuccessful due to the broad based nature of the aneurysm. Endovascular repair of this aneurysm could not be performed. Kennedy Thibodeaux Jr., MD Laboratory Tests Test 05/21/16 03:39 White Blood Count 11.8 TH/MM3 Red Blood Count 5.00 MIL/MM3 Hemoglobin 12.8 GM/DL Hematocrit 39.4 % Mean Corpuscular Volume 78.7 FL Mean Corpuscular Hemoglobin 25.5 PG Mean Corpuscular Hemoglobin 32.4 % Concent Red Cell Distribution Width 20.4 % Platelet Count 486 TH/MM3 Mean Platelet Volume 7.9 FL Prothrombin Time 11.1 SEC Prothromb Time International 1.1 RATIO Ratio Activated Partial 25.5 SEC Thromboplast Time Sodium Level 137 MEQ/L Potassium Level 4.0 MEQ/L Chloride Level 97 MEQ/L Carbon Dioxide Level 34.6 MEQ/L Anion Gap 5 MEQ/L Blood Urea Nitrogen 27 MG/DL Creatinine 0.53 MG/DL Estimat Glomerular Filtration 149 ML/MIN Rate Random Glucose 129 MG/DL Calcium Level 9.6 MG/DL (Genna Madrid) Medical Decision Making Impression and Plan Impression: 1. Neurologic exam stable following endovascular coiling of ruptured cerebral aneurysm with subsequent left decompressive craniotomy 04/14/16 CT angiogram stable: Status post endovascular repair of left supraclinoid aneurysm. Left M1 segment aneurysm stable 04/16/[address] and CTA stable. No vasospasm, no new hemorrhage. 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 Midline shift has resolved but there is persistent herniation of brain at the craniotomy defect. No new or acute blood demonstrated. Mild to moderate ventriculomegaly, increased. Codman Valve adjusted to [id number]. 05/09/16: stable head CT, improving ventriculomegaly 05/09/16: Negative EEG 05/12/16: Head CT stable 05/21/16: Head CT stable 2. Angioedema and Tongue laceration- s/p repair with Dr. Booth 05/16/16 Plan: OR planned for replacement of left skull flap 05/22. Pre-op labs and Head CT stable to proceed. RN obtained consents 05/20, on chart Continue tube feeds as tolerated. Hospitalist following for medical management. Zantac for ulcer prophylaxis Lovenox for DVT prophylaxis Physical therapy. (Genna Madrid) Genna Madrid May 21, 2016 08:55 Sherwin Meléndez MD May 24, 2016 14:50
[2016-05-21] MEDS: HYDROCHLOROTHIAZIDE 25 MG TAB PO SCH (09:00)
[2016-05-21] MEDS: RANITIDINE HCL 150 MG TAB PO SCH ×2 (10:18→21:11)
[2016-05-21] MEDS: SODIUM CHLORIDE 0.9% FLUSH 5 ML FLUSH IVF SCH ×2 (10:18→21:12)
[2016-05-21] MEDS: ENOXAPARIN SODIUM 40 MG/0.4 ML SYRINGE SQ SCH (10:18)
--- NOTE | 2016-05-21 15:40 | HHI.PR ---
Subjective Remarks More alert today. VSS. Objective Vitals Vital Signs Date Time Temp Pulse Resp B/P Pulse Ox O2 Delivery O2 Flow Rate FiO2 05/21/16 14:00 89 05/21/16 12:00 98.3 98 15 134/92 100 05/21/16 12:00 98 05/21/16 10:00 92 05/21/16 08:03 100 T-piece 28 05/21/16 08:00 100 T-Piece 6.00 28 05/21/16 08:00 97.6 83 26 109/78 100 05/21/16 08:00 98 05/21/16 06:00 78 05/21/16 04:00 98 05/21/16 04:00 98.8 98 22 131/90 100 05/21/16 02:00 90 05/21/16 00:00 98.0 88 20 112/73 100 05/21/16 00:00 88 05/20/16 22:36 99 T-piece 6.00 28 05/20/16 22:00 100 05/20/16 20:00 99.2 94 24 131/89 100 05/20/16 20:00 95 05/20/16 19:00 100 T-Piece 28 05/20/16 18:00 88 05/20/16 17:19 100 T-piece 28 05/20/16 16:00 98.8 92 20 135/90 100 05/20/16 16:00 92 I/O 05/20/16 05/20/16 05/20/16 05/21/16 05/21/16 05/21/16 07:00 15:00 23:00 07:00 15:00 23:00 Intake Total 420 ml 461 ml 476 ml 340 ml 424 ml Balance 420 ml 461 ml 476 ml 340 ml 424 ml Intake Oral 0 ml 0 ml IV Total 0 ml 0 ml 0 ml 0 ml Tube Feeding 300 ml 361 ml 416 ml 280 ml 364 ml Tube Irrigant 60 ml Other 120 ml 100 ml 60 ml 60 ml # Voids 3 3 3 3 3 # Bowel Movements 0 0 1 0 1 Result Diagram: 05/21/1633805/21/16338 Objective Remarks GENERAL: Well-nourished, well-developed middle-aged female patient. SKIN: Warm and dry. Oropharyngeal: The patient has tongue swelling in the tongue is protruding from her mouth swollen. Bite guard in place. EYES: No scleral icterus. No injection or drainage. NECK: Supple, trachea midline. No JVD or lymphadenopathy. CARDIOVASCULAR: Regular rate and rhythm. No peripheral edema. RESPIRATORY: Breath sounds equal but coarse bilaterally. No accessory muscle use. GASTROINTESTINAL: Abdomen soft, non-tender, nondistended. PEG site intact. EXTREMITIES: No cyanosis, or edema. NEUROLOGICAL: Awake, alert. She has leftward gaze preference. She does not follow commands. More alert today, appears to be tracking with eyes somehwat. 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 s/p Dr. Meléndez performed left decompressive craniotomy 04/25 with evacuation of temporal hematoma. RAMP AGENT shunt placed 05/07. NS plans bone flap on 05/22. -Malignant Hypertension (Hypertensive emergency) on admission -- s/p permissive Hypertension for prevention of vasospasm, s/p 3 weeks of Nimotop therapy for vasospasm prevention. in SAH patient. now targeting SBP < 160. Continue Norvasc 10 q day, HCTZ 25 mg daily 05/16, labetalol 300 mg PO TID, hydralazine 100 mg q8. Hold parameters. 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 Not a candidate for surgical intervention due to devastating neuro injury -Acute respiratory failure (now chronic resp failure) secondary to SAH / ICH. s/ p tracheostomy 04/29. Cristino TP 23/03. Continue DuoNeb q 4 hours as needed -Severe tongue lacerations/p tongue laceration repair by Dr. Booth 05/16/16 -Mild protein calorie malnutrition - s/p PEG 04/28. Tolerating tube feeds (Jevity ) at goal of 50 cc/hr (-25-30 kcal/kg/day) -Mild transaminitis. probable fatty liver. monitor periodically. obtain liver u/ s if upward trend. -Anemia of chronic inflammation / disease. Hgb stable with no signs of active bleeding -Sepsis secondary to pneumonia and prior UTI - resolved, now off all abx. -Prophylaxis: GI - oral Zantac q 12 DVT - SCDs; Lovenox 40 q day -Rehab: PT / OT Will eventually need LTACH / SNF -IV Access: Peripheral iv Ann Marie Hart MD May 21, 2016 15:40
[2016-05-22] VITALS (18 sets, daily range): BP systolic 107–148; BP diastolic 72–97; PULSE 63–92; RESP 11–22; TEMP 97.6–98.6; O2SAT 93–100
[2016-05-22] MEDS: CHLORHEXIDINE GLUCONATE 2 % 1 PACK (2 CLOTHS) TOP SCH (04:00)
[2016-05-22] MEDS: LABETALOL HCL 300 MG TAB PO SCH ×3 (05:57→21:19)
[2016-05-22] MEDS: hydrALAZINE HCL 25 MG TAB TUBE SCH ×3 (05:57→21:19)
[2016-05-22] MEDS: SODIUM CHLORIDE 0.9% FLUSH 5 ML FLUSH IVF SCH ×2 (07:27→21:21)
[2016-05-22] MEDS ORDERED: LIDOCAINE 1%/EPINEPHrine 1:100,000 SOLN 30 ML VIAL ONE (08:08)
[2016-05-22] MEDS ORDERED: THROMBIN (TOPICAL) 5,000 UNIT VIAL ONE (08:09)
[2016-05-22] MEDS ORDERED: GELFOAM SIZE 100 ONE (08:09)
[2016-05-22] MEDS ORDERED: GENTAMICIN SULFATE 80 MG/2 ML VIAL ONE (08:09)
[2016-05-22] MEDS ORDERED: ONDANSETRON HCL 4 MG/2 ML VIAL IV PUSH ONE (08:31)
[2016-05-22] MEDS ORDERED: PHENYLEPH/NS 1000 MCG/10 ML SYR IV ONE (08:31)
[2016-05-22] MEDS ORDERED: NORMOSOL R INJ 1,000 ML IV ONE (08:31)
[2016-05-22] MEDS ORDERED: PROPOFOL 200 MG/20 ML AMP IV ONE (08:31)
[2016-05-22] MEDS ORDERED: ceFAZolin INJ 1,000 MG VIAL IV ONE (08:54)
[2016-05-22] MEDS: RANITIDINE HCL 150 MG TAB PO SCH ×2 (09:00→21:19)
[2016-05-22] MEDS: HYDROCHLOROTHIAZIDE 25 MG TAB PO SCH (09:00)
[2016-05-22] MEDS ORDERED: [UNRECOGNIZED DRUG - OTHER] OTHER ONE (09:15)
[2016-05-22] MEDS ORDERED: DO NOT ADM ANY ANTICOAGULANT DRUGS XX PRN (11:00)
[2016-05-22] MEDS ORDERED: fentaNYL CITRATE 250 MCG/5 ML AMP ONE (11:04)
[2016-05-22] MEDS ORDERED: *morphine SULFATE 8 MG/ML PERIprocedure ONLY ONE (11:05)
--- NOTE | 2016-05-22 11:24 | PD.OP ---
Operative Report Date of Surgery: May 22, 2016 Preoperative Diagnosis: (1) Subarachnoid hemorrhage from aneurysm of left middle cerebral artery Status post left decompressive craniotomy with bone flap removal Postoperative Diagnosis: (1) Subarachnoid hemorrhage from aneurysm of left middle cerebral artery Status post left decompressive craniotomy with bone flap removal Procedure: Replacement left craniotomy bone flap Anesthesia: General Surgeon: Sherwin Meléndez Associate Art Director(s): [employer] Operation and Findings: Patient was brought to the operating room and general endotracheal anesthesia without difficulty. MAU hose, and sequential compression devices were placed Lines were established by anesthesia All extremities were appropriately padded The patient was placed in supine position on the 3080 table with the head and neck in neutral position on the horseshoe headrest The head was shaved and prepped in a sterile fashion Appropriate time-out procedure was performed with all personal present and in agreement 1% Xylocaine with epinephrine was used for local infiltration over the previous left frontotemporoparietal incision site. The incision was made over the previous incision site and carried sharply down to the cranium. The periosteal elevator was used to release the scalp away from the bone margin circumferentially at the previous operative site. The Metzenbaum scissors and dissectors were used to separate the galea and temporalis muscle away from the previously released dural margins. The scalp flap was retracted with large scalp hooks. The brain was soft and pulsatile. The edges of the previous craniotomy site were cleaned with the curettes of any debris. The previous bone flap, which had been previously stored in the operating room freezer was properly identified and opened onto the sterile field and soaked in gentamicin antibiotic solution. The bone flap was replaced with titanium maxillofacial plates and screws A 7 mm flat fluted drain was placed in the subgaleal space with a second drain in the epidural space, and brought out through incisions in the posterior parietal region and secured to the skin with nylon suture The region was well irrigated with antibiotic irrigation prior to closure. Closure was performed with 2-0 Vicryl interrupted for the galeal and temporalis muscle fascia closures with yaneth for the skin closure. A dressing of sterile Telfa , 4 x 4's, and head stockinette was placed. The patient was taken to recovery room in stable condition All counts were correct at the end of the case No specimen was sent to pathology Estimated blood loss was 50 cc Sherwin Meléndez MD May 22, 2016 11:24
[2016-05-23] VITALS (10 sets, daily range): BP systolic 111–149; BP diastolic 68–87; PULSE 62–86; RESP 15–24; TEMP 98–98.8; O2SAT 98–100
[2016-05-23] MEDS: CHLORHEXIDINE GLUCONATE 2 % 1 PACK (2 CLOTHS) TOP SCH (04:00)
--- NOTE | 2016-05-23 05:03 | RADRPT ---
EXAM DATE/TIME: 05/23/2016 04:48 [place] COMPARISON: CT BRAIN W/O CONTRAST, May 21, 2016, 4:33. INDICATIONS : Post bone flap replacement. RADIATION DOSE: 55.35 CTDIvol (mGy) MEDICAL HISTORY : Hypertension. SURGICAL HISTORY : Craniotomy. ENCOUNTER: Initial ACUITY: 1 day PAIN SCALE: 3/10 LOCATION: Left cranial TECHNIQUE: Multiple contiguous axial images were obtained of the head. Using automated exposure control and adj ustment of the mA and/or kV according to patient size, radiation dose was kept as low as reasonably a chievable to obtain optimal diagnostic quality images. FINDINGS: The missing craniotomy bone flap has been replaced on the left. Small amounts of subdural blood and a ir are seen along the left convexity, measuring up to 6 mm in maximal thickness. The subdural drain i n place. There is about 2 mm of rightward midline shift. Evolving encephalomalacia of the left frontal and temporal lobes again noted. Patient is status post left aneurysm coiling. Patient remain shunted. No ventriculomegaly or evidence of ventricular obstruction. CONCLUSION: 1. The left craniotomy defect has been repaired. 2. Small blood and air in the left subdural space, up to 6 mm in maximal thickness. Subdural drain in place. 3. Evolving encephalomalacia of the left frontal and temporal lobes. 4. 2 mm of rightward midline shift. 5. Shunted. No ventriculomegaly. Fei Hughes MD on May 23, 2016 at 4:56 Board Certified Radiologist. This report was verified electronically.
[2016-05-23] MEDS: LABETALOL HCL 300 MG TAB PO SCH ×3 (06:20→22:39)
[2016-05-23] MEDS: hydrALAZINE HCL 25 MG TAB TUBE SCH ×3 (06:23→20:59)
[2016-05-23] MEDS: HYDROCHLOROTHIAZIDE 25 MG TAB PO SCH (09:38)
[2016-05-23] MEDS: SODIUM CHLORIDE 0.9% FLUSH 5 ML FLUSH IVF SCH ×2 (09:38→20:58)
[2016-05-23] MEDS: RANITIDINE HCL 150 MG TAB PO SCH ×2 (09:38→20:58)
--- NOTE | 2016-05-23 09:46 | HHI.NSPN ---
(Genna Madrid) History Chief Complaint: status post coil for aneurysm (Genna Madrid) Interval History 04/12/16: Patient had an aneurysm coiled yesterday, intubated and sedated, ICP stable overnight 04/13/16: Increased ICP overnight, improved after a 23% saline bolus 04/14/16: ICP stable overnight 04/15/16: ICP stable, CTA stable no vasospasm 04/16/16: ICP slight increase overnight now stabilized, intubated and sedated 04/17/16: ICP increased yesterday afternoon, repeat CTA and CT stable, no vasospasm, no new hemorrhage, hypothermia overnight 04/21/16: increasing ICP over the weekend, getting 23% every 6 hours PRN. 04/22/16: ICP responding over night to 23% saline, CT and CTA planned this am. Nimbex off since yesterday. 04/23/16: ICP stable overnight, SBP increasing today RN adjusting pressors, HGB improved after 2 units of PRBC, no signs of active bleeding 04/24/16: ICP increased overnight with stimulation but not sustained, low HGB again today receiving PRBC this am 04/25/16: ICP max 38 overnight, currently 10, no family at bedside. 04/26/16: She has ventriculostomy drain in place. She underwent left decompressive craniectomy yesterday 04/[address] Meléndez due to elevated ICPs. Today, ICPs improved, currently 4. 04/27/16: intermittent spikes in ICPs overnight in low 20's controlled with hyperosmotic bolus. Currently 9. well sedated. 04/28/16: ICP stable between 9-14 per RN. EVD draining blood tinged CSF, flap firm non-pulsatile 04/29/16: ICP stable overnight, PEG yesterday, Trach today. 04/30/16: EVD clamped 05/01/16: EVD clamped, ICP max 17, currently 14. 05/02/16: EVD draining, ICP 9, no sedation 05/03/16: Pt with eyes open. Not following commands. Pupils 4mm bilaterally reactive bilaterally. Ventriculostomy in place at [id number]. ICP 8. 9: Pt with eyes open. Not following commands. Pupils 4mm bilaterally reactive bilaterally. Ventriculostomy in place at [id number]. ICP 8. 9: Day 24 after PCOM aneurysm bleed and coiling, Pupils reactives, eyes now open and she is more alert. EVD was clamped this am, remains straw coloured. 05/06/16: eyes open, very mild flexion to deep pain in the upper extremities. 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 for MAINTENANCE ELECTRICIAN shunt placement 05/08/16: POD 1 from shunt placement, eyes open, does not track 05/09/16: POD 2 no withdrawal on exam today and eyes are more deviated 05/10/16: EEG negative for seizures yesterday, labile HTN, stable neuro hoff 05/11/16: no changes overnight 05/12/16: no changes per nurse 05/13/16: stable overnight 05/14/16: stable overnight, increase angioedema 05/15/16: stable overnight, angioedema slightly improved with Decadron 05/16/16: stable overnight, angioedema seems worse this am. 05/18/16 Day 37 after coiling of aneurysm, left frontal bone flap off, s/p right frontal MAINTENANCE ELECTRICIAN shunt, sepsis improved, s/p surgery on decayed teeth and tongue injury, now more alert and afebrile. 05/19/16: stable overnight, left flap sunken, tongue appearance approved status post repair 05/20/16: stable overnight, left flap sunken, tracks with eyes, stable neuro exam 05/21/16: stable overnight, neuro exam slightly improves daily 05/22/16: surgery replacement left bone flap 05/23/16: awake, alert, following commands, incision covered in a dry dressing. (Genna Madrid) Exam Results Vital Signs Date Time Temp Pulse Resp B/P Pulse Ox O2 Delivery O2 Flow Rate FiO2 05/23/16 08:53 100 T-piece 21 05/23/16 08:00 68 05/23/16 08:00 98.7 23 119/72 05/23/16 07:00 5.00 Intake and Output 05/22/16 05/22/16 05/23/16 08:00 16:00 00:00 Intake Total 133 ml 820 ml 334 ml Output Total 150.0 ml 95.0 ml Balance 133 ml 670.0 ml 239.0 ml (Genna Mdarid) Physical Examination Tracheostomy on O2. Tongue appears intact, angioedema improved, listing out of the left side of her mouth covered in wet dressing. Bite block in place right jaw. Spontaneous eye opening. Pupils are 4mm and reactive to light. Conjugate gaze. Tracks with eyes. Incision covered in dry dressing. Moves all but RUE spontaneously. Follows commands on the left. (Genna Madrid) Lab, Micro, Other Results Last Impressions Head CT 05/23/16 0600 Signed Impressions: Service Date/Time: Monday, May 23, 2016 04:48 - CONCLUSION: 1. The left craniotomy defect has been repaired. 2. Small blood and air in the left subdural space, up to 6 mm in maximal thickness. Subdural drain in place. 3. Evolving encephalomalacia of the left frontal and temporal lobes. 4. 2 mm of rightward midline shift. 5. Shunted. No ventriculomegaly. Fei Hughes MD Chest X-Ray 05/17/16 0600 Signed Impressions: Service Date/Time: Tuesday, May 17, 2016 04:59 - CONCLUSION: 1. Minimal basilar atelectasis. Cardiomegaly. Quinn Bateman MD Skull X-Ray 05/08/16 0000 Signed Impressions: Service Date/Time: May 10:16 - CONCLUSION: Shunt set to 70-80 mm H2O. Fei Snyder MD Head CTA 05/02/16 0600 Signed Impressions: Service Date/Time: Monday, May 02, 2016 04:32 - CONCLUSION: Satisfactory appearance post aneurysm coiling Fei Snyder MD Abdomen/Pelvis CT 04/24/16 1416 Signed Impressions: Service Date/Time: March 14:39 - CONCLUSION: Mild small bowel ileus with scattered air-fluid levels. Bibasilar lung consolidation with associated small effusions. Significant soft tissue fluid accumulation with edematous changes throughout the abdominal wall. Nasogastric tube in good position. Saqib Garcia MD Neck CTA 04/11/16 1151 Signed Impressions: Service Date/Time: Monday, April 11, 2016 12:01 - CONCLUSION: Negative for hemodynamically significant carotid stenosis. Ricardo Castellanos MD FACR Cerebral Arteriogram 04/11/16 0000 Signed Impressions: Service Date/Time: Monday, April 11, 2016 14:18 - CONCLUSION: 1. 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 This is the aneurysm felt responsible for the intracranial hemorrhage. 2. Small 4 mm left M1 segment aneurysm. Attempts at embolizing this aneurysm were unsuccessful due to the broad based nature of the aneurysm. Endovascular repair of this aneurysm could not be performed. Kennedy Thibodeaux Jr., MD (Genna Madrid) Medical Decision Making Impression and Plan Impression: 1. Neurologic exam stable following endovascular coiling of ruptured cerebral aneurysm with subsequent left decompressive craniotomy 04/14/16 CT angiogram stable: Status post endovascular repair of left supraclinoid aneurysm. Left M1 segment aneurysm stable 04/16/[address] and CTA stable. No vasospasm, no new hemorrhage. 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 Midline shift has resolved but there is persistent herniation of brain at the craniotomy defect. No new or acute blood demonstrated. Mild to moderate ventriculomegaly, increased. Codman Valve adjusted to [id number]. 05/09/16: stable head CT, improving ventriculomegaly 05/09/16: Negative EEG 05/12/16: Head CT stable 05/21/16: Head CT stable 05/22/16: Surgery to replace left bone flap 05/23/16: stable head CT, mild mass effect 2. Angioedema and Tongue laceration- s/p repair with Dr. Booth 05/16/16 Plan: continue current medical care- d/c planning Continue tube feeds as tolerated. Hospitalist following for medical management. Zantac for ulcer prophylaxis Lovenox for DVT prophylaxis Physical therapy. (Genna Madrid) Attending Statement On the date of this note, the undersigned had a [id number] encounter with the patient. I personally examined the patient, obtained pertinent history, and reviewed the electronic medical record including pertinent laboratory results and imaging studies. I personally developed the treatment plan and perform medical decision making. All of the above was performed in the presence of the physician's child life assistant, who has scribed my findings into the medical record as noted above. (Sherwin Meléndez MD) Genna Madrid May 23, 2016 09:46 Sherwin Meléndez MD May 24, 2016 14:50
--- NOTE | 2016-05-23 15:54 | HHI.PR ---
Subjective Remarks D/w RN, BP stable, no acute concerns. Pt will take bite guard out of her mouth without restraint however. Objective Vitals Vital Signs Date Time Temp Pulse Resp B/P Pulse Ox O2 Delivery O2 Flow Rate FiO2 05/23/16 12:00 98.1 82 21 139/71 100 05/23/16 08:53 100 T-piece 21 05/23/16 08:00 68 05/23/16 08:00 98.7 69 23 119/72 100 05/23/16 07:00 100 Trach Collar 5.00 Humidified 05/23/16 06:00 64 05/23/16 04:00 98.4 81 24 149/87 99 05/23/16 04:00 81 05/23/16 02:00 62 05/23/16 00:00 63 05/23/16 00:00 98.2 63 23 137/75 98 05/22/16 22:00 63 05/22/16 20:18 98 Trach Collar 4.00 21 05/22/16 20:00 65 05/22/16 20:00 98.3 65 13 144/92 100 05/22/16 19:00 100 Trach Collar 6.00 Humidified 05/22/16 18:00 66 05/22/16 17:35 100 Trach Collar 5.00 21 05/22/16 17:30 99 Trach Collar Humidified 05/22/16 16:22 35 05/22/16 16:20 35 05/22/16 16:20 100 35 05/22/16 16:00 40 05/22/16 16:00 73 05/22/16 16:00 97.7 73 11 114/72 100 I/O 05/22/16 05/22/16 05/22/16 05/23/16 05/23/16 05/23/16 07:00 15:00 23:00 07:00 15:00 23:00 Intake Total 133 ml 790 ml 364 ml 297 ml 383 ml Output Total 150 ml 95 ml 30 ml 25 ml Balance 133 ml 640 ml 269 ml 267 ml 358 ml IV Total 0 ml 200 ml Tube Feeding 73 ml 304 ml 237 ml 383 ml Other 60 ml 590 ml 60 ml 60 ml Tube Feeding Residual Discard 0 ml 0 ml 0 ml Drainage Total 100 ml 95 ml 30 ml 25 ml Estimated Blood Loss 50 ml Other 0 ml # Voids 2 4 3 1 2 # Bowel Movements 0 0 0 0 1 Result Diagram: 05/21/169 05/21/169 Objective Remarks GENERAL: Well-nourished, well-developed middle-aged female patient. SKIN: Warm and dry. Oropharyngeal: The patient has tongue swelling in the tongue is protruding from her mouth swollen. Bite guard in place. EYES: No scleral icterus. No injection or drainage. NECK: Supple, trachea midline. No JVD or lymphadenopathy. CARDIOVASCULAR: Regular rate and rhythm. No peripheral edema. RESPIRATORY: Breath sounds equal but coarse bilaterally. No accessory muscle use. GASTROINTESTINAL: Abdomen soft, non-tender, nondistended. PEG site intact. EXTREMITIES: No cyanosis, or edema. NEUROLOGICAL: Awake, alert. She has leftward gaze preference. She does not follow commands. More alert today, appears to be tracking with eyes somehwat. 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 s/p Dr. Meléndez performed left decompressive craniotomy 04/25 with evacuation of temporal hematoma. TUNNEL KILN FIRER shunt placed 05/07. S/p bone flap on 05/22. -Malignant Hypertension (Hypertensive emergency) on admission -- s/p permissive Hypertension for prevention of vasospasm, s/p 3 weeks of Nimotop therapy for vasospasm prevention. in SAH patient. now targeting SBP < 160. Continue Norvasc 10 q day, HCTZ 25 mg daily 05/16, labetalol 300 mg PO TID, hydralazine 100 mg q8. Hold parameters. Blood pressure well controlled today. 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 Not a candidate for surgical intervention due to devastating neuro injury -Acute respiratory failure (now chronic resp failure) secondary to SAH / ICH. s/ p tracheostomy 04/29. Cristino TP 23/03. Continue DuoNeb q 4 hours as needed -Severe tongue lacerations/p tongue laceration repair by Dr. Booth 05/16/16. -Mild protein calorie malnutrition - s/p PEG 04/28. Tolerating tube feeds (Jevity ) at goal of 50 cc/hr (-25-30 kcal/kg/day) -Mild transaminitis. probable fatty liver. repeat LFT in a.m. -Anemia of chronic inflammation / disease. Hgb stable with no signs of active bleeding -Sepsis secondary to pneumonia and prior UTI - resolved, now off all abx. -Prophylaxis: GI - oral Zantac q 12 DVT - SCDs; Lovenox 40 q day -Rehab: PT / OT Will eventually need LTACH / SNF -IV Access: Peripheral iv Ann Marie Hart MD May 23, 2016 15:54
[2016-05-24] VITALS (8 sets, daily range): BP systolic 110–127; BP diastolic 63–83; PULSE 70–107; RESP 11–23; TEMP 98.2–98.8; O2SAT 97–100
[2016-05-24] MEDS: CHLORHEXIDINE GLUCONATE 2 % 1 PACK (2 CLOTHS) TOP SCH (03:56)
[2016-05-24] MEDS: LABETALOL HCL 300 MG TAB PO SCH ×4 (05:50→21:00)
[2016-05-24] MEDS: hydrALAZINE HCL 25 MG TAB TUBE SCH ×4 (05:50→20:59)
[2016-05-24 06:36] LABS: ALKALINE PHOSPHATASE 153 U/L (45-117); ALT (GPT) 66 U/L (10-53); ANION GAP 9 MEQ/L (5-15); AST (GOT) 63 U/L (15-37); BICARBONATE 26.7 MEQ/L (21.0-32.0); CHLORIDE 102 MEQ/L (98-107); GLOMERULAR FILTRATION RATE 137 ML/MIN (>89); POTASSIUM 5.7 MEQ/L (3.5-5.1); SODIUM (NA) 138 MEQ/L (136-145); TOTAL BILIRUBIN ADULT 0.7 MG/DL (0.2-1.0)
[2016-05-24 06:38] LABS: BLOOD UREA NITROGEN 25 MG/DL (7-18)
[2016-05-24 07:51] LABS: AUTOMATED NEUTROPHIL # 10.2 TH/MM3 (1.8-7.7); BASOPHIL # 0.1 TH/MM3 (0-0.2); BASOPHIL % 0.5 % (0.0-2.0); EOSINOPHIL # 0.2 TH/MM3 (0-0.4); EOSINOPHIL % 1.5 % (0.0-4.0); HEMATOCRIT 32.7 % (35.0-46.0); LYMPH % 15.4 % (9.0-44.0); LYMPHOCYTE # 2.1 TH/MM3 (1.0-4.8); MEAN CELL VOLUME 79.1 FL (80.0-100.0); MEAN CORPUSCULAR HGB CONC 32.9 % (32.0-36.0); MONO % 9.4 % (0.0-8.0); NEUT % 73.2 % (16.0-70.0); PLATELET COUNT 308 TH/MM3 (150-450); RED BLOOD COUNT 4.14 MIL/MM3 (4.00-5.30); RED CELL DISTRIBUTION WIDTH 20.8 % (11.6-17.2); WHITE BLOOD COUNT 13.9 TH/MM3 (4.0-11.0)
[2016-05-24 07:52] LABS: HEMO FLAGS AUTO DIFF
[2016-05-24] MEDS: RANITIDINE HCL 150 MG TAB PO SCH ×2 (08:39→21:00)
[2016-05-24] MEDS: ENOXAPARIN SODIUM 40 MG/0.4 ML SYRINGE SQ SCH (08:39)
[2016-05-24] MEDS: SODIUM CHLORIDE 0.9% FLUSH 5 ML FLUSH IVF SCH ×2 (08:39→21:00)
[2016-05-24] MEDS: HYDROCHLOROTHIAZIDE 25 MG TAB PO SCH (08:39)
[2016-05-24] MEDS ORDERED: FUROSEMIDE 20 MG/2 ML VIAL IV PUSH ONE (09:15)
[2016-05-24 09:22] LABS: SCAN/DIFF AUTO DIFF CONFIRMED
--- NOTE | 2016-05-24 09:39 | HHI.NSPN ---
(Genna Madrid) History Chief Complaint: status post coil for aneurysm (Genna Madrid) Interval History 04/12/16: Patient had an aneurysm coiled yesterday, intubated and sedated, ICP stable overnight 04/13/16: Increased ICP overnight, improved after a 23% saline bolus 04/14/16: ICP stable overnight 04/15/16: ICP stable, CTA stable no vasospasm 04/16/16: ICP slight increase overnight now stabilized, intubated and sedated 04/17/16: ICP increased yesterday afternoon, repeat CTA and CT stable, no vasospasm, no new hemorrhage, hypothermia overnight 04/21/16: increasing ICP over the weekend, getting 23% every 6 hours PRN. 04/22/16: ICP responding over night to 23% saline, CT and CTA planned this am. Nimbex off since yesterday. 04/23/16: ICP stable overnight, SBP increasing today RN adjusting pressors, HGB improved after 2 units of PRBC, no signs of active bleeding 04/24/16: ICP increased overnight with stimulation but not sustained, low HGB again today receiving PRBC this am 04/25/16: ICP max 38 overnight, currently 10, no family at bedside. 04/26/16: She has ventriculostomy drain in place. She underwent left decompressive craniectomy yesterday 04/[address] Meléndez due to elevated ICPs. Today, ICPs improved, currently 4. 04/27/16: intermittent spikes in ICPs overnight in low 20's controlled with hyperosmotic bolus. Currently 9. well sedated. 04/28/16: ICP stable between 9-14 per RN. EVD draining blood tinged CSF, flap firm non-pulsatile 04/29/16: ICP stable overnight, PEG yesterday, Trach today. 04/30/16: EVD clamped 05/01/16: EVD clamped, ICP max 17, currently 14. 05/02/16: EVD draining, ICP 9, no sedation 05/03/16: Pt with eyes open. Not following commands. Pupils 4mm bilaterally reactive bilaterally. Ventriculostomy in place at [id number]. ICP 8. 9: Pt with eyes open. Not following commands. Pupils 4mm bilaterally reactive bilaterally. Ventriculostomy in place at [id number]. ICP 8. 9: Day 24 after PCOM aneurysm bleed and coiling, Pupils reactives, eyes now open and she is more alert. EVD was clamped this am, remains straw coloured. 05/06/16: eyes open, very mild flexion to deep pain in the upper extremities. 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 for STRAIGHT EDGER shunt placement 05/08/16: POD 1 from shunt placement, eyes open, does not track 05/09/16: POD 2 no withdrawal on exam today and eyes are more deviated 05/10/16: EEG negative for seizures yesterday, labile HTN, stable neuro hoff 05/11/16: no changes overnight 05/12/16: no changes per nurse 05/13/16: stable overnight 05/14/16: stable overnight, increase angioedema 05/15/16: stable overnight, angioedema slightly improved with Decadron 05/16/16: stable overnight, angioedema seems worse this am. 05/18/16 Day 37 after coiling of aneurysm, left frontal bone flap off, s/p right frontal STRAIGHT EDGER shunt, sepsis improved, s/p surgery on decayed teeth and tongue injury, now more alert and afebrile. 05/19/16: stable overnight, left flap sunken, tongue appearance approved status post repair 05/20/16: stable overnight, left flap sunken, tracks with eyes, stable neuro exam 05/21/16: stable overnight, neuro exam slightly improves daily 05/22/16: surgery replacement left bone flap 05/23/16: awake, alert, following commands, incision covered in a dry dressing. 05/24/16: awake, alert, following, incision covered in a dry dressing, (Genna Madrid) Exam Results Vital Signs Date Time Temp Pulse Resp B/P Pulse Ox O2 Delivery O2 Flow Rate FiO2 05/24/16 08:00 98.5 84 20 127/72 100 05/24/16 07:00 Trach Collar 28 Humidified 05/23/16 22:35 5.00 Intake and Output 05/23/16 05/23/16 05/24/16 08:00 16:00 00:00 Intake Total 297 ml 383 ml 485 ml Output Total 30.0 ml 25.0 ml 0 ml Balance 267.0 ml 358.0 ml 485 ml (Genna Madrid) Physical Examination Tracheostomy on O2. Tongue appears intact, angioedema improved, listing out of the left side of her mouth. Bite block in place right jaw. Spontaneous eye opening. Pupils are 4mm and reactive to light. Conjugate gaze. Tracks with eyes. Incision covered in dry dressing. JOE drains in place Moves all spontaneously, intermittently follows commands. (Genna Madrid) Lab, Micro, Other Results Last Impressions Head CT 05/23/16 0600 Signed Impressions: Service Date/Time: Monday, May 23, 2016 04:48 - CONCLUSION: 1. The left craniotomy defect has been repaired. 2. Small blood and air in the left subdural space, up to 6 mm in maximal thickness. Subdural drain in place. 3. Evolving encephalomalacia of the left frontal and temporal lobes. 4. 2 mm of rightward midline shift. 5. Shunted. No ventriculomegaly. Fei Hughes MD Chest X-Ray 05/17/16 0600 Signed Impressions: Service Date/Time: Tuesday, May 17, 2016 04:59 - CONCLUSION: 1. Minimal basilar atelectasis. Cardiomegaly. Quinn Bateman MD Skull X-Ray 05/08/16 0000 Signed Impressions: Service Date/Time: May 10:16 - CONCLUSION: Shunt set to 70-80 mm H2O. Fei Snyder MD Head CTA 05/02/16 0600 Signed Impressions: Service Date/Time: Monday, May 02, 2016 04:32 - CONCLUSION: Satisfactory appearance post aneurysm coiling Fei Snyder MD Abdomen/Pelvis CT 04/24/16 1416 Signed Impressions: Service Date/Time: March 14:39 - CONCLUSION: Mild small bowel ileus with scattered air-fluid levels. Bibasilar lung consolidation with associated small effusions. Significant soft tissue fluid accumulation with edematous changes throughout the abdominal wall. Nasogastric tube in good position. Saqib Garcia MD Neck CTA 04/11/16 1151 Signed Impressions: Service Date/Time: Monday, April 11, 2016 12:01 - CONCLUSION: Negative for hemodynamically significant carotid stenosis. Ricardo Castlelanos MD FACR Cerebral Arteriogram 04/11/16 0000 Signed Impressions: Service Date/Time: Monday, April 11, 2016 14:18 - CONCLUSION: 1. 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 This is the aneurysm felt responsible for the intracranial hemorrhage. 2. Small 4 mm left M1 segment aneurysm. Attempts at embolizing this aneurysm were unsuccessful due to the broad based nature of the aneurysm. Endovascular repair of this aneurysm could not be performed. Kennedy Thibodeaux Jr., MD Laboratory Tests Test 05/24/16 05/24/16 04:58 07:34 Sodium Level 138 MEQ/L Potassium Level 5.7 MEQ/L Chloride Level 102 MEQ/L Carbon Dioxide Level 26.7 MEQ/L Anion Gap 9 MEQ/L Blood Urea Nitrogen 25 MG/DL Creatinine 0.57 MG/DL Estimat Glomerular Filtration 137 ML/MIN Rate Random Glucose 87 MG/DL Calcium Level 9.4 MG/DL Total Bilirubin 0.7 MG/DL Aspartate Amino Transf 63 U/L (AST/SGOT) Alanine Aminotransferase 66 U/L (ALT/SGPT) Alkaline Phosphatase 153 U/L Total Protein 8.1 GM/DL Albumin 3.3 GM/DL White Blood Count 13.9 TH/MM3 Red Blood Count 4.14 MIL/MM3 Hemoglobin 10.8 GM/DL Hematocrit 32.7 % Mean Corpuscular Volume 79.1 FL Mean Corpuscular Hemoglobin 26.0 PG Mean Corpuscular Hemoglobin 32.9 % Concent Red Cell Distribution Width 20.8 % Platelet Count 308 TH/MM3 Mean Platelet Volume 8.3 FL Neutrophils (%) (Auto) 73.2 % Lymphocytes (%) (Auto) 15.4 % Monocytes (%) (Auto) 9.4 % Eosinophils (%) (Auto) 1.5 % Basophils (%) (Auto) 0.5 % Neutrophils # (Auto) 10.2 TH/MM3 Lymphocytes # (Auto) 2.1 TH/MM3 Monocytes # (Auto) 1.3 TH/MM3 Eosinophils # (Auto) 0.2 TH/MM3 Basophils # (Auto) 0.1 TH/MM3 CBC Comment AUTO DIFF Differential Comment AUTO DIFF CONFIRMED (Genna Madrid) Medical Decision Making Impression and Plan Impression: 1. Neurologic exam stable following endovascular coiling of ruptured cerebral aneurysm with subsequent left decompressive craniotomy 04/14/16 CT angiogram stable: Status post endovascular repair of left supraclinoid aneurysm. Left M1 segment aneurysm stable 04/16/[address] and CTA stable. No vasospasm, no new hemorrhage. 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 Midline shift has resolved but there is persistent herniation of brain at the craniotomy defect. No new or acute blood demonstrated. Mild to moderate ventriculomegaly, increased. Codman Valve adjusted to [id number]. 05/09/16: stable head CT, improving ventriculomegaly 05/09/16: Negative EEG 05/12/16: Head CT stable 05/21/16: Head CT stable 05/22/16: Surgery to replace left bone flap 05/23/16: stable head CT, mild mass effect 2. Angioedema and Tongue laceration- s/p repair with Dr. Booth 05/16/16 Plan: d/c JOE drains continue current medical care- d/c planning Continue tube feeds as tolerated. Hospitalist following for medical management. Zantac for ulcer prophylaxis Lovenox for DVT prophylaxis Physical therapy. (Genna Madrid) Attending Statement On the date of this note, the undersigned had a [id number] encounter with the patient. I personally examined the patient, obtained pertinent history, and reviewed the electronic medical record including pertinent laboratory results and imaging studies. I personally developed the treatment plan and perform medical decision making. All of the above was performed in the presence of the physician's radiology assistant, who has scribed my findings into the medical record as noted above. (Sherwin Meléndez MD) Genna Madrid May 24, 2016 09:39 Sherwin Meléndez MD May 24, 2016 14:51
--- NOTE | 2016-05-24 15:31 | HHI.PR ---
Subjective Remarks Follow-up for hyperkalemia, encephalopathy, subarachnoid hemorrhage No overnight events, potassium is 5.7. Resume hydrochlorothiazide this morning , no change in mental status. Discussed with RN Objective Vitals Vital Signs Date Time Temp Pulse Resp B/P Pulse Ox O2 Delivery O2 Flow Rate FiO2 05/24/16 12:00 98.2 107 23 126/63 100 05/24/16 10:26 97 Trach Collar 21 05/24/16 08:00 98.5 84 20 127/72 100 05/24/16 07:00 100 Trach Collar 28 Humidified 05/24/16 04:00 98.5 84 20 125/81 100 05/24/16 00:00 98.8 70 13 112/70 100 05/23/16 22:35 99 Trach Collar 5.00 21 05/23/16 20:00 98.8 82 15 118/74 100 05/23/16 19:00 100 Trach Collar 28 Humidified 05/23/16 16:00 98.0 86 24 111/68 100 I/O 05/23/16 05/23/16 05/23/16 05/24/16 05/24/16 05/24/16 07:00 15:00 23:00 07:00 15:00 23:00 Intake Total 297 ml 383 ml 485 ml Output Total 30 ml 25 ml 0 ml 0 ml 0 ml Balance 267 ml 358 ml 485 ml 0 ml 0 ml Tube Feeding 237 ml 383 ml 385 ml Other 60 ml 100 ml Tube Feeding Residual Discard 0 ml 0 ml 0 ml 0 ml 0 ml Drainage Total 30 ml 25 ml 0 ml # Voids 1 2 2 # Bowel Movements 0 1 Result Diagram: 05/24/16 0734 05/24/16 0458 Objective Remarks GENERAL: Not in distress, nonverbal. SKIN: Warm and dry. Oropharyngeal: The patient has tongue swelling in the tongue is protruding from her mouth swollen. Bite guard in place. EYES: No scleral icterus. No injection or drainage. NECK: Supple, trachea midline. CARDIOVASCULAR: Regular rate and rhythm. No peripheral edema. RESPIRATORY: Breath sounds equal but coarse bilaterally. No accessory muscle use. Poor effort. GASTROINTESTINAL: Abdomen soft, non-tender, nondistended. PEG site intact. EXTREMITIES: No cyanosis, or edema. NEUROLOGICAL: Awake, alert. She has leftward gaze preference. She does not follow commands. Nonverbal. 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 s/p Dr. Meléndez performed left decompressive craniotomy 04/25 with evacuation of temporal hematoma. [employer] shunt placed 05/07. S/p bone flap on 05/22. -Malignant Hypertension (Hypertensive emergency) on admission -- s/p permissive Hypertension for prevention of vasospasm, s/p 3 weeks of Nimotop therapy for vasospasm prevention. in SAH patient. now targeting SBP < 160. Continue Norvasc 10 q day, HCTZ 25 mg daily 05/16, labetalol 300 mg PO TID, hydralazine 100 mg q8. Hold parameters. 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 Not a candidate for surgical intervention due to devastating neuro injury -Acute respiratory failure (now chronic resp failure) secondary to SAH / ICH. s/ p tracheostomy 04/29. Cristino TP 23/03. Continue DuoNeb q 4 hours as needed -Severe tongue lacerations/p tongue laceration repair by Dr. Booth 05/16/16. -Mild protein calorie malnutrition - s/p PEG 04/28. Tolerating tube feeds (Jevity ) at goal of 50 cc/hr (-25-30 kcal/kg/day) -Mild transaminitis. probable fatty liver. repeat LFT in a.m. -Anemia of chronic inflammation / disease. Hgb stable with no signs of active bleeding -Sepsis secondary to pneumonia and prior UTI - resolved, now off all abx. -Hyperkalemia-continue hydrochlorothiazide, will give a dose of Lasix, check potassium at 3 PM. -Prophylaxis: GI - oral Zantac q 12 DVT - SCDs; Lovenox 40 q day -Rehab: PT / OT Will eventually need LTACH / SNF -IV Access: Peripheral iv Rob Khalil MD May 24, 2016 15:30
[2016-05-24 17:54] LABS: BICARBONATE 30.8 MEQ/L (21.0-32.0); POTASSIUM 3.6 MEQ/L (3.5-5.1)
[2016-05-25] VITALS (8 sets, daily range): BP systolic 120–140; BP diastolic 56–94; PULSE 86–115; RESP 13–29; TEMP 98.1–98.6; O2SAT 97–100
[2016-05-25] MEDS: CHLORHEXIDINE GLUCONATE 2 % 1 PACK (2 CLOTHS) TOP SCH (04:00)
[2016-05-25 04:08] LABS: BICARBONATE 31.2 MEQ/L (21.0-32.0); POTASSIUM 3.5 MEQ/L (3.5-5.1)
[2016-05-25 04:09] LABS: AUTOMATED NEUTROPHIL # 7.5 TH/MM3 (1.8-7.7); BASOPHIL % 0.4 % (0.0-2.0); EOSINOPHIL # 0.3 TH/MM3 (0-0.4); EOSINOPHIL % 2.2 % (0.0-4.0); HEMATOCRIT 35.4 % (35.0-46.0); LYMPH % 22.2 % (9.0-44.0); LYMPHOCYTE # 2.7 TH/MM3 (1.0-4.8); MEAN CELL VOLUME 79.4 FL (80.0-100.0); MEAN CORPUSCULAR HEMOGLOBIN 25.9 PG (27.0-34.0); MEAN CORPUSCULAR HGB CONC 32.6 % (32.0-36.0); MONO % 12.4 % (0.0-8.0); NEUT % 62.8 % (16.0-70.0); PLATELET COUNT 288 TH/MM3 (150-450); RED BLOOD COUNT 4.46 MIL/MM3 (4.00-5.30); RED CELL DISTRIBUTION WIDTH 20.5 % (11.6-17.2); WHITE BLOOD COUNT 11.9 TH/MM3 (4.0-11.0)
[2016-05-25 04:31] LABS: HEMO FLAGS AUTO DIFF
[2016-05-25 05:22] LABS: SCAN/DIFF AUTO DIFF CONFIRMED
[2016-05-25] MEDS: LABETALOL HCL 300 MG TAB PO SCH ×3 (06:00→21:55)
[2016-05-25] MEDS: hydrALAZINE HCL 25 MG TAB TUBE SCH ×3 (06:00→21:55)
[2016-05-25] MEDS: ENOXAPARIN SODIUM 40 MG/0.4 ML SYRINGE SQ SCH (08:45)
[2016-05-25] MEDS: HYDROCHLOROTHIAZIDE 25 MG TAB PO SCH (08:45)
[2016-05-25] MEDS: RANITIDINE HCL 150 MG TAB PO SCH (08:45)
[2016-05-25] MEDS: SODIUM CHLORIDE 0.9% FLUSH 5 ML FLUSH IVF SCH ×2 (08:46→21:55)
--- NOTE | 2016-05-25 09:16 | HHI.NSPN ---
([facility] [place]) History Chief Complaint: status post coil for aneurysm ([facility] [place]) Interval History 04/12/16: Patient had an aneurysm coiled yesterday, intubated and sedated, ICP stable overnight 04/13/16: Increased ICP overnight, improved after a 23% saline bolus 04/14/16: ICP stable overnight 04/15/16: ICP stable, CTA stable no vasospasm 04/16/16: ICP slight increase overnight now stabilized, intubated and sedated 04/17/16: ICP increased yesterday afternoon, repeat CTA and CT stable, no vasospasm, no new hemorrhage, hypothermia overnight 04/21/16: increasing ICP over the weekend, getting 23% every 6 hours PRN. 04/22/16: ICP responding over night to 23% saline, CT and CTA planned this am. Nimbex off since yesterday. 04/23/16: ICP stable overnight, SBP increasing today RN adjusting pressors, HGB improved after 2 units of PRBC, no signs of active bleeding 04/24/16: ICP increased overnight with stimulation but not sustained, low HGB again today receiving PRBC this am 04/25/16: ICP max 38 overnight, currently 10, no family at bedside. 04/26/16: She has ventriculostomy drain in place. She underwent left decompressive craniectomy yesterday 04/[address] Meléndez due to elevated ICPs. Today, ICPs improved, currently 4. 04/27/16: intermittent spikes in ICPs overnight in low 20's controlled with hyperosmotic bolus. Currently 9. well sedated. 04/28/16: ICP stable between 9-14 per RN. EVD draining blood tinged CSF, flap firm non-pulsatile 04/29/16: ICP stable overnight, PEG yesterday, Trach today. 04/30/16: EVD clamped 05/01/16: EVD clamped, ICP max 17, currently 14. 05/02/16: EVD draining, ICP 9, no sedation 05/03/16: Pt with eyes open. Not following commands. Pupils 4mm bilaterally reactive bilaterally. Ventriculostomy in place at [id number]. ICP 8. 9: Pt with eyes open. Not following commands. Pupils 4mm bilaterally reactive bilaterally. Ventriculostomy in place at [id number]. ICP 8. 9: Day 24 after PCOM aneurysm bleed and coiling, Pupils reactives, eyes now open and she is more alert. EVD was clamped this am, remains straw coloured. 05/06/16: eyes open, very mild flexion to deep pain in the upper extremities. 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 for [employer] shunt placement 05/08/16: POD 1 from shunt placement, eyes open, does not track 05/09/16: POD 2 no withdrawal on exam today and eyes are more deviated 05/10/16: EEG negative for seizures yesterday, labile HTN, stable neuro hoff 05/11/16: no changes overnight 05/12/16: no changes per nurse 05/13/16: stable overnight 05/14/16: stable overnight, increase angioedema 05/15/16: stable overnight, angioedema slightly improved with Decadron 05/16/16: stable overnight, angioedema seems worse this am. 05/18/16 Day 37 after coiling of aneurysm, left frontal bone flap off, s/p right frontal [employer] shunt, sepsis improved, s/p surgery on decayed teeth and tongue injury, now more alert and afebrile. 05/19/16: stable overnight, left flap sunken, tongue appearance approved status post repair 05/20/16: stable overnight, left flap sunken, tracks with eyes, stable neuro exam 05/21/16: stable overnight, neuro exam slightly improves daily 05/22/16: surgery replacement left bone flap 05/23/16: awake, alert, following commands, incision covered in a dry dressing. 05/24/16: awake, alert, following, incision covered in a dry dressing, 05/25/16: sleeping, discussed with nurse no concerns ([facility] [place]) Exam Results Vital Signs Date Time Temp Pulse Resp B/P Pulse Ox O2 Delivery O2 Flow Rate FiO2 05/25/16 04:00 98.4 86 19 138/88 100 05/24/16 20:32 Trach Collar 6.00 21 Intake and Output 905/24/16 05/25/16 08:00 16:00 00:00 Intake Total 496 ml 499 ml Output Total 0 ml 0 ml 0 ml Balance 0 ml 496 ml 499 ml ([facility] [place]) Physical Examination Tracheostomy on O2. Tongue appears intact, angioedema improved, listing out of the left side of her mouth. Bite block in place right jaw. Discussed with RN she is following commands. Left moves spontaneously. Right hemiparesis. ([facility] [place]) Lab, Micro, Other Results Last Impressions Head CT 05/23/16 0600 Signed Impressions: Service Date/Time: Monday, May 23, 2016 04:48 - CONCLUSION: 1. The left craniotomy defect has been repaired. 2. Small blood and air in the left subdural space, up to 6 mm in maximal thickness. Subdural drain in place. 3. Evolving encephalomalacia of the left frontal and temporal lobes. 4. 2 mm of rightward midline shift. 5. Shunted. No ventriculomegaly. Fei Hughes MD Chest X-Ray 05/17/16 0600 Signed Impressions: Service Date/Time: Tuesday, May 17, 2016 04:59 - CONCLUSION: 1. Minimal basilar atelectasis. Cardiomegaly. Quinn Bateman MD Skull X-Ray 05/08/16 0000 Signed Impressions: Service Date/Time: May 10:16 - CONCLUSION: Shunt set to 70-80 mm H2O. Fei Snyder MD Head CTA 05/02/16 0600 Signed Impressions: Service Date/Time: Monday, May 02, 2016 04:32 - CONCLUSION: Satisfactory appearance post aneurysm coiling Fei Snyder MD Abdomen/Pelvis CT 04/24/16 1416 Signed Impressions: Service Date/Time: March 14:39 - CONCLUSION: Mild small bowel ileus with scattered air-fluid levels. Bibasilar lung consolidation with associated small effusions. Significant soft tissue fluid accumulation with edematous changes throughout the abdominal wall. Nasogastric tube in good position. Saqib Garcia MD Neck CTA 04/11/16 1151 Signed Impressions: Service Date/Time: Monday, April 11, 2016 12:01 - CONCLUSION: Negative for hemodynamically significant carotid stenosis. Ricardo Castellanos MD FACR Cerebral Arteriogram 04/11/16 0000 Signed Impressions: Service Date/Time: Monday, April 11, 2016 14:18 - CONCLUSION: 1. 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 This is the aneurysm felt responsible for the intracranial hemorrhage. 2. Small 4 mm left M1 segment aneurysm. Attempts at embolizing this aneurysm were unsuccessful due to the broad based nature of the aneurysm. Endovascular repair of this aneurysm could not be performed. Kennedy Thibodeaux Jr., MD Laboratory Tests Test 05/24/16 05/25/16 16:21 03:11 Sodium Level 138 MEQ/L 139 MEQ/L Potassium Level 3.6 MEQ/L 3.5 MEQ/L Chloride Level 97 MEQ/L 101 MEQ/L Carbon Dioxide Level 30.8 MEQ/L 31.2 MEQ/L Anion Gap 10 MEQ/L 7 MEQ/L Blood Urea Nitrogen 22 MG/DL 21 MG/DL Creatinine 0.53 MG/DL 0.48 MG/DL Estimat Glomerular Filtration 149 ML/MIN 167 ML/MIN Rate Random Glucose 125 MG/DL 113 MG/DL Calcium Level 9.4 MG/DL 9.6 MG/DL White Blood Count 11.9 TH/MM3 Red Blood Count 4.46 MIL/MM3 Hemoglobin 11.5 GM/DL Hematocrit 35.4 % Mean Corpuscular Volume 79.4 FL Mean Corpuscular Hemoglobin 25.9 PG Mean Corpuscular Hemoglobin 32.6 % Concent Red Cell Distribution Width 20.5 % Platelet Count 288 TH/MM3 Mean Platelet Volume 8.5 FL Neutrophils (%) (Auto) 62.8 % Lymphocytes (%) (Auto) 22.2 % Monocytes (%) (Auto) 12.4 % Eosinophils (%) (Auto) 2.2 % Basophils (%) (Auto) 0.4 % Neutrophils # (Auto) 7.5 TH/MM3 Lymphocytes # (Auto) 2.7 TH/MM3 Monocytes # (Auto) 1.5 TH/MM3 Eosinophils # (Auto) 0.3 TH/MM3 Basophils # (Auto) 0.0 TH/MM3 CBC Comment AUTO DIFF Differential Comment AUTO DIFF CONFIRMED ([facility]na [place]) Medical Decision Making Impression and Plan Impression: 1. Neurologic exam stable following endovascular coiling of ruptured cerebral aneurysm with subsequent left decompressive craniotomy 04/14/16 CT angiogram stable: Status post endovascular repair of left supraclinoid aneurysm. Left M1 segment aneurysm stable 04/16/[address] and CTA stable. No vasospasm, no new hemorrhage. 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 Midline shift has resolved but there is persistent herniation of brain at the craniotomy defect. No new or acute blood demonstrated. Mild to moderate ventriculomegaly, increased. Codman Valve adjusted to [id number]. 05/09/16: stable head CT, improving ventriculomegaly 05/09/16: Negative EEG 05/12/16: Head CT stable 05/21/16: Head CT stable 05/22/16: Surgery to replace left bone flap 05/23/16: stable head CT, mild mass effect 2. Angioedema and Tongue laceration- s/p repair with Dr. Booth 05/16/16 Plan: transfer to the floor or SNF continue current medical care- Continue tube feeds as tolerated. Hospitalist following for medical management. Zantac for ulcer prophylaxis Lovenox for DVT prophylaxis Physical therapy. (Genna [place]) Attending Statement On the date of this note, the undersigned had a [id number] encounter with the patient. I personally examined the patient, obtained pertinent history, and reviewed the electronic medical record including pertinent laboratory results and imaging studies. I personally developed the treatment plan and perform medical decision making. All of the above was performed in the presence of the physician's lead dental assistant, who has scribed my findings into the medical record as noted above. (Sherwin Meléndez MD) [facility] [place] May 25, 2016 09:16 Sherwin Meléndez MD May 25, 2016 11:20
--- NOTE | 2016-05-25 14:37 | HHI.PR ---
Subjective Remarks Follow-up for subarachnoid hemorrhage No overnight events, no change in mental status. Does not follow any commands today. Afebrile. Objective Vitals Vital Signs Date Time Temp Pulse Resp B/P Pulse Ox O2 Delivery O2 Flow Rate FiO2 05/25/16 12:00 98.2 104 24 140/84 100 05/25/16 10:04 99 Trach Collar 21 05/25/16 08:00 98.1 88 13 130/94 100 05/25/16 07:00 100 Trach Collar 28 Humidified 05/25/16 04:00 98.4 86 19 138/88 100 05/25/16 00:00 98.5 88 21 138/56 100 05/24/16 20:32 100 Trach Collar 6.00 21 05/24/16 20:00 98.3 90 14 125/78 100 05/24/16 19:00 100 Trach Collar 28 Humidified 05/24/16 16:00 98.2 83 11 110/83 100 I/O 05/24/16 05/24/16 05/24/16 05/25/16 05/25/16 05/25/16 07:00 15:00 23:00 07:00 15:00 23:00 Intake Total 496 ml 499 ml 438 ml Output Total 0 ml 0 ml 0 ml 0 ml 0 ml Balance 0 ml 496 ml 499 ml 438 ml 0 ml Tube Feeding 396 ml 399 ml 378 ml Other 100 ml 100 ml 60 ml Tube Feeding Residual Discard 0 ml 0 ml 0 ml 0 ml 0 ml # Voids 3 4 3 # Bowel Movements 1 0 1 Result Diagram: 05/25/1631005/25/16310 Objective Remarks GENERAL: Not in distress, nonverbal. SKIN: Warm and dry. Oropharyngeal: The patient has tongue swelling in the tongue is protruding from her mouth swollen. Bite guard in place. EYES: No scleral icterus. No injection or drainage. NECK: Supple, trachea midline. CARDIOVASCULAR: Regular rate and rhythm. No peripheral edema. RESPIRATORY: Breath sounds equal but coarse bilaterally. No accessory muscle use. Poor effort. GASTROINTESTINAL: Abdomen soft, non-tender, nondistended. PEG site intact. EXTREMITIES: No cyanosis, or edema. NEUROLOGICAL: Awake, alert. She has leftward gaze preference. She does not follow commands. Nonverbal. 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 s/p Dr. Meléndez performed left decompressive craniotomy 04/25 with evacuation of temporal hematoma. [employer] shunt placed 05/07. S/p bone flap on 05/22. -Malignant Hypertension (Hypertensive emergency) on admission -- s/p permissive Hypertension for prevention of vasospasm, s/p 3 weeks of Nimotop therapy for vasospasm prevention. in SAH patient. now targeting SBP < 160. Continue Norvasc 10 q day, HCTZ 25 mg daily 05/16, labetalol 300 mg PO TID, hydralazine 100 mg q8. Hold parameters. Blood pressure stable. 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 Not a candidate for surgical intervention due to devastating neuro injury -Acute respiratory failure (now chronic resp failure) secondary to SAH / ICH. s/ p tracheostomy 04/29. Cristino TP 23/03. Continue DuoNeb q 4 hours as needed -Severe tongue lacerations/p tongue laceration repair by Dr. Booth 05/16/16. -Mild protein calorie malnutrition - s/p PEG 04/28. Tolerating tube feeds (Jevity ) at goal of 50 cc/hr (-25-30 kcal/kg/day) -Mild transaminitis. probable fatty liver. repeat LFT in a.m. -Anemia of chronic inflammation / disease. Hgb stable with no signs of active bleeding -Sepsis secondary to pneumonia and prior UTI - resolved, now off all abx. -Hyperkalemia-continue hydrochlorothiazide, resolved with Lasix. -Prophylaxis: GI - oral Zantac q 12 DVT - SCDs; Lovenox 40 q day -Rehab: PT / OT Will eventually need LTACH / SNF -IV Access: Peripheral iv Rob Khalil MD May 25, 2016 14:37
[2016-05-25] MEDS: FAMOTIDINE 20 MG TAB PO SCH (21:55)
[2016-05-26] VITALS (8 sets, daily range): BP systolic 116–132; BP diastolic 75–88; PULSE 81–110; RESP 17–23; TEMP 96.4–97.7; O2SAT 95–100
[2016-05-26] MEDS: CHLORHEXIDINE GLUCONATE 2 % 1 PACK (2 CLOTHS) TOP SCH (04:00)
[2016-05-26] MEDS: LABETALOL HCL 300 MG TAB PO SCH ×3 (06:19→21:59)
[2016-05-26] MEDS: hydrALAZINE HCL 25 MG TAB TUBE SCH ×3 (06:19→21:59)
[2016-05-26] MEDS: FAMOTIDINE 20 MG TAB PO SCH ×2 (08:48→21:59)
[2016-05-26] MEDS: HYDROCHLOROTHIAZIDE 25 MG TAB PO SCH (08:48)
[2016-05-26] MEDS: ENOXAPARIN SODIUM 40 MG/0.4 ML SYRINGE SQ SCH (08:48)
[2016-05-26] MEDS: SODIUM CHLORIDE 0.9% FLUSH 5 ML FLUSH IVF SCH ×2 (08:49→22:00)
--- NOTE | 2016-05-26 09:34 | HHI.DCPOC ---
Discharge Care Plan Diagnosis: (1) Acute spontaneous subarachnoid intracranial hemorrhage (2) Cerebral aneurysm rupture (3) Hydrocephalus (4) Encephalopathy (5) Hypertension Your Health Problems Are: Difficulty with ADL Incision/Drains Loss of Movements Difficulty with Speech Goals to Promote Your Health * To prevent worsening of your condition and complications * To maintain your health at the optimal level Directions to Meet Your Goals Take your medications as prescribed Follow your dietary instruction Follow activity as directed Keep your appointments as scheduled Take your immunizations and boosters as scheduled If your symptoms worsen call your PCP, if no PCP go to Urgent Care Center or Emergency Room Smoking is Dangerous to Your Health. Avoid second hand smoke Call the 24-hour hour crisis hotline for domestic abuse at [facility] [place] May 26, 2016 09:34
--- NOTE | 2016-05-26 09:36 | HHI.DS ---
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 Diagnosis: Secondary (2) Cerebral aneurysm rupture Diagnosis: Principal (3) Hypertension (4) Encephalopathy (5) Malnutrition (6) Hydrocephalus (7) Sequelae of nontraumatic intracerebral hemorrhage (8) Cognitive deficits following nontraumatic intracerebral hemorrhage (9) Chronic respiratory failure (10) Malignant hypertension CBC/BMP: 05/25/16 0311 05/25/16 0311 Significant Findings Laboratory Tests Test 05/24/16 05/24/16 05/24/16 05/25/16 04:58 07:34 16:21 03:11 Potassium Level 5.7 MEQ/L (3.5-5.1) Blood Urea Nitrogen 25 MG/DL (7-18) 22 MG/DL (7-18) 21 MG/DL (7-18) Aspartate Amino Transf 63 U/L (15-37) (AST/SGOT) Alanine Aminotransferase 66 U/L (10-53) (ALT/SGPT) Alkaline Phosphatase 153 U/L (45-117) Albumin 3.3 GM/DL (3.4-5.0) White Blood Count 13.9 TH/MM3 11.9 TH/MM3 (4.0-11.0) (4.0-11.0) Hemoglobin 10.8 GM/DL 11.5 GM/DL (11.6-15.3) (11.6-15.3) Hematocrit 32.7 % (35.0-46.0) Mean Corpuscular Volume 79.1 FL 79.4 FL (80.0-100.0) (80.0-100.0) Mean Corpuscular Hemoglobin 26.0 PG 25.9 PG (27.0-34.0) (27.0-34.0) Red Cell Distribution Width 20.8 % 20.5 % (11.6-17.2) (11.6-17.2) Neutrophils (%) (Auto) 73.2 % (16.0-70.0) Monocytes (%) (Auto) 9.4 % (0.0-8.0) 12.4 % (0.0-8.0) Neutrophils # (Auto) 10.2 TH/MM3 (1.8-7.7) Monocytes # (Auto) 1.3 TH/MM3 1.5 TH/MM3 (0-0.9) (0-0.9) Chloride Level 97 MEQ/L (98-107) Random Glucose 125 MG/DL 113 MG/DL (74-106) (74-106) Creatinine 0.48 MG/DL (0.50-1.00) Hospital Course 04/12/16: Patient had an aneurysm coiled yesterday, intubated and sedated, ICP stable overnight 04/13/16: Increased ICP overnight, improved after a 23% saline bolus 04/14/16: ICP stable overnight 04/15/16: ICP stable, CTA stable no vasospasm 04/16/16: ICP slight increase overnight now stabilized, intubated and sedated 04/17/16: ICP increased yesterday afternoon, repeat CTA and CT stable, no vasospasm, no new hemorrhage, hypothermia overnight 04/21/16: increasing ICP over the weekend, getting 23% every 6 hours PRN. 04/22/16: ICP responding over night to 23% saline, CT and CTA planned this am. Nimbex off since yesterday. 04/23/16: ICP stable overnight, SBP increasing today RN adjusting pressors, HGB improved after 2 units of PRBC, no signs of active bleeding 04/24/16: ICP increased overnight with stimulation but not sustained, low HGB again today receiving PRBC this am 04/25/16: ICP max 38 overnight, currently 10, no family at bedside. 04/26/16: She has ventriculostomy drain in place. She underwent left decompressive craniectomy yesterday 04/[address] Meléndez due to elevated ICPs. Today, ICPs improved, currently 4. 04/27/16: intermittent spikes in ICPs overnight in low 20's controlled with hyperosmotic bolus. Currently 9. well sedated. 04/28/16: ICP stable between 9-14 per RN. EVD draining blood tinged CSF, flap firm non-pulsatile 04/29/16: ICP stable overnight, PEG yesterday, Trach today. 04/30/16: EVD clamped 05/01/16: EVD clamped, ICP max 17, currently 14. 05/02/16: EVD draining, ICP 9, no sedation 05/03/16: Pt with eyes open. Not following commands. Pupils 4mm bilaterally reactive bilaterally. Ventriculostomy in place at [id number]. ICP 8. 9: Pt with eyes open. Not following commands. Pupils 4mm bilaterally reactive bilaterally. Ventriculostomy in place at [id number]. ICP 8. 9: Day 24 after PCOM aneurysm bleed and coiling, Pupils reactives, eyes now open and she is more alert. EVD was clamped this am, remains straw coloured. 05/06/16: eyes open, very mild flexion to deep pain in the upper extremities. 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 for [employer]PER[employer] shunt placement 05/08/16: POD 1 from shunt placement, eyes open, does not track 05/09/16: POD 2 no withdrawal on exam today and eyes are more deviated 05/10/16: EEG negative for seizures yesterday, labile HTN, stable neuro hoff 05/11/16: no changes overnight 05/12/16: no changes per nurse 05/13/16: stable overnight 05/14/16: stable overnight, increase angioedema 05/15/16: stable overnight, angioedema slightly improved with Decadron 05/16/16: stable overnight, angioedema seems worse this am. 05/18/16 Day 37 after coiling of aneurysm, left frontal bone flap off, s/p right frontal [employer] shunt, sepsis improved, s/p surgery on decayed teeth and tongue injury, now more alert and afebrile. 05/19/16: stable overnight, left flap sunken, tongue appearance approved status post repair 05/20/16: stable overnight, left flap sunken, tracks with eyes, stable neuro exam 05/21/16: stable overnight, neuro exam slightly improves daily 05/22/16: surgery replacement left bone flap 05/23/16: awake, alert, following commands, incision covered in a dry dressing. 05/24/16: awake, alert, following, incision covered in a dry dressing, 05/25/16: sleeping, discussed with nurse no concerns Pt Condition on Discharge: Fair Discharge Disposition: Discharge to SNF Discharge Instructions DIET: Follow Instructions for: On Tube Feeding ACTIVITIES You can perform: Regular-No Restrictions Genna [place] May 26, 2016 09:36
--- NOTE | 2016-05-26 12:03 | HHI.NSPN ---
(Genna Madrid) History Chief Complaint: status post coil for aneurysm (Genna Madrid) Interval History 04/12/16: Patient had an aneurysm coiled yesterday, intubated and sedated, ICP stable overnight 04/13/16: Increased ICP overnight, improved after a 23% saline bolus 04/14/16: ICP stable overnight 04/15/16: ICP stable, CTA stable no vasospasm 04/16/16: ICP slight increase overnight now stabilized, intubated and sedated 04/17/16: ICP increased yesterday afternoon, repeat CTA and CT stable, no vasospasm, no new hemorrhage, hypothermia overnight 04/21/16: increasing ICP over the weekend, getting 23% every 6 hours PRN. 04/22/16: ICP responding over night to 23% saline, CT and CTA planned this am. Nimbex off since yesterday. 04/23/16: ICP stable overnight, SBP increasing today RN adjusting pressors, HGB improved after 2 units of PRBC, no signs of active bleeding 04/24/16: ICP increased overnight with stimulation but not sustained, low HGB again today receiving PRBC this am 04/25/16: ICP max 38 overnight, currently 10, no family at bedside. 04/26/16: She has ventriculostomy drain in place. She underwent left decompressive craniectomy yesterday 04/[address] Meléndez due to elevated ICPs. Today, ICPs improved, currently 4. 04/27/16: intermittent spikes in ICPs overnight in low 20's controlled with hyperosmotic bolus. Currently 9. well sedated. 04/28/16: ICP stable between 9-14 per RN. EVD draining blood tinged CSF, flap firm non-pulsatile 04/29/16: ICP stable overnight, PEG yesterday, Trach today. 04/30/16: EVD clamped 05/01/16: EVD clamped, ICP max 17, currently 14. 05/02/16: EVD draining, ICP 9, no sedation 05/03/16: Pt with eyes open. Not following commands. Pupils 4mm bilaterally reactive bilaterally. Ventriculostomy in place at [id number]. ICP 8. 9: Pt with eyes open. Not following commands. Pupils 4mm bilaterally reactive bilaterally. Ventriculostomy in place at [id number]. ICP 8. 9: Day 24 after PCOM aneurysm bleed and coiling, Pupils reactives, eyes now open and she is more alert. EVD was clamped this am, remains straw coloured. 05/06/16: eyes open, very mild flexion to deep pain in the upper extremities. 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 for FOAM DISPENSER shunt placement 05/08/16: POD 1 from shunt placement, eyes open, does not track 05/09/16: POD 2 no withdrawal on exam today and eyes are more deviated 05/10/16: EEG negative for seizures yesterday, labile HTN, stable neuro hoff 05/11/16: no changes overnight 05/12/16: no changes per nurse 05/13/16: stable overnight 05/14/16: stable overnight, increase angioedema 05/15/16: stable overnight, angioedema slightly improved with Decadron 05/16/16: stable overnight, angioedema seems worse this am. 05/18/16 Day 37 after coiling of aneurysm, left frontal bone flap off, s/p right frontal FOAM DISPENSER shunt, sepsis improved, s/p surgery on decayed teeth and tongue injury, now more alert and afebrile. 05/19/16: stable overnight, left flap sunken, tongue appearance approved status post repair 05/20/16: stable overnight, left flap sunken, tracks with eyes, stable neuro exam 05/21/16: stable overnight, neuro exam slightly improves daily 05/22/16: surgery replacement left bone flap 05/23/16: awake, alert, following commands, incision covered in a dry dressing. 05/24/16: awake, alert, following, incision covered in a dry dressing, 05/25/16: sleeping, discussed with nurse no concerns 05/26/16: lying in bed, eyes open. alert, appears to be attempting to mouth words. (Genna Madrid) Exam Results Vital Signs Date Time Temp Pulse Resp B/P Pulse Ox O2 Delivery O2 Flow Rate FiO2 05/26/16 07:35 98 Trach Collar 6.00 21 05/26/16 04:45 97.7 102 23 129/80 Intake and Output 05/25/16 05/25/16 05/26/16 08:00 16:00 00:00 Intake Total 438 ml 291 ml Output Total 0 ml 0 ml Balance 438 ml 291 ml (Genna Madrid) Physical Examination Tracheostomy on O2. Alert. tracks with eyes. Pupils are midposition and reactive to light. Appears to be mouthing words. Tongue appears intact, listing out of the left side of her mouth, covered in moist dressing. Left moves spontaneously and intermittently to command. Right hemiparesis. (Genna Madrid) Lab, Micro, Other Results Last Impressions Head CT 05/23/16 0600 Signed Impressions: Service Date/Time: Monday, May 23, 2016 04:48 - CONCLUSION: 1. The left craniotomy defect has been repaired. 2. Small blood and air in the left subdural space, up to 6 mm in maximal thickness. Subdural drain in place. 3. Evolving encephalomalacia of the left frontal and temporal lobes. 4. 2 mm of rightward midline shift. 5. Shunted. No ventriculomegaly. Fei Hughes MD Chest X-Ray 05/17/16 0600 Signed Impressions: Service Date/Time: Tuesday, May 17, 2016 04:59 - CONCLUSION: 1. Minimal basilar atelectasis. Cardiomegaly. Quinn Bateamn MD Skull X-Ray 05/08/16 0000 Signed Impressions: Service Date/Time: May 10:16 - CONCLUSION: Shunt set to 70-80 mm H2O. Fei Snyder MD Head CTA 05/02/16 0600 Signed Impressions: Service Date/Time: Monday, May 02, 2016 04:32 - CONCLUSION: Satisfactory appearance post aneurysm coiling Fei Snyder MD Abdomen/Pelvis CT 04/24/16 1416 Signed Impressions: Service Date/Time: March 14:39 - CONCLUSION: Mild small bowel ileus with scattered air-fluid levels. Bibasilar lung consolidation with associated small effusions. Significant soft tissue fluid accumulation with edematous changes throughout the abdominal wall. Nasogastric tube in good position. Saqib Garcia MD Neck CTA 04/11/16 1151 Signed Impressions: Service Date/Time: Monday, April 11, 2016 12:01 - CONCLUSION: Negative for hemodynamically significant carotid stenosis. Ricardo Castellanos MD FACR Cerebral Arteriogram 04/11/16 0000 Signed Impressions: Service Date/Time: Monday, April 11, 2016 14:18 - CONCLUSION: 1. 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 This is the aneurysm felt responsible for the intracranial hemorrhage. 2. Small 4 mm left M1 segment aneurysm. Attempts at embolizing this aneurysm were unsuccessful due to the broad based nature of the aneurysm. Endovascular repair of this aneurysm could not be performed. Kennedy Thibodeaux Jr., MD (Genna Madrid) Medical Decision Making Impression and Plan Impression: 1. Neurologic exam stable following endovascular coiling of ruptured cerebral aneurysm with subsequent left decompressive craniotomy 04/14/16 CT angiogram stable: Status post endovascular repair of left supraclinoid aneurysm. Left M1 segment aneurysm stable 04/16/[address] and CTA stable. No vasospasm, no new hemorrhage. 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 Midline shift has resolved but there is persistent herniation of brain at the craniotomy defect. No new or acute blood demonstrated. Mild to moderate ventriculomegaly, increased. Codman Valve adjusted to [id number]. 05/09/16: stable head CT, improving ventriculomegaly 05/09/16: Negative EEG 05/12/16: Head CT stable 05/21/16: Head CT stable 05/22/16: Surgery to replace left bone flap 05/23/16: stable head CT, mild mass effect 2. Angioedema and Tongue laceration- s/p repair with Dr. Booth 05/16/16 Plan: d/c planning, can d/c when have a accepting facility. Discharge paperwork is complete. Continue tube feeds as tolerated. Hospitalist following for medical management. Zantac for ulcer prophylaxis Lovenox for DVT prophylaxis PT (Genna Madrid) Attending Statement On the date of this note, the undersigned had a [id number] encounter with the patient. I personally examined the patient, obtained pertinent history, and reviewed the electronic medical record including pertinent laboratory results and imaging studies. I personally developed the treatment plan and perform medical decision making. All of the above was performed in the presence of the physician's geriatric assistant, who has scribed my findings into the medical record as noted above. (Sherwin Meléndez MD) Genna Madrid May 26, 2016 12:03 Sherwin Meléndez MD May 26, 2016 12:47
--- NOTE | 2016-05-26 16:01 | HHI.PR ---
Subjective Remarks Follow-up for encephalopathy and hypertension Blood pressure control, no overnight events. No change in mental status. Discussed with RN. Objective Vitals Vital Signs Date Time Temp Pulse Resp B/P Pulse Ox O2 Delivery O2 Flow Rate FiO2 05/26/16 13:03 97.5 93 22 121/83 98 05/26/16 08:00 97.2 81 20 116/75 95 05/26/16 07:35 98 Trach Collar 6.00 21 05/26/16 04:45 97.7 102 23 129/80 100 05/26/16 02:04 99 Trach Collar 6.00 21 Humidified 05/26/16 00:30 97.7 110 23 132/88 98 05/25/16 23:00 98.1 115 24 135/85 99 05/25/16 21:25 97 Trach Collar 6.00 21 I/O 05/25/16 05/25/16 05/25/16 05/26/16 05/26/16 05/26/16 07:00 15:00 23:00 07:00 15:00 23:00 Intake Total 438 ml 291 ml 505 ml Output Total 0 ml 0 ml 0 ml Balance 438 ml 291 ml 0 ml 505 ml Intake Oral 0 ml Tube Feeding 378 ml 291 ml 305 ml Other 60 ml 200 ml Tube Feeding Residual Discard 0 ml 0 ml 0 ml # Voids 3 3 2 # Bowel Movements 1 1 0 Result Diagram: 05/25/1631005/25/16310 Objective Remarks GENERAL: Not in distress, nonverbal. SKIN: Warm and dry. Oropharyngeal: The patient has tongue swelling in the tongue is protruding from her mouth swollen. Bite guard in place. EYES: No scleral icterus. No injection or drainage. NECK: Supple, trachea midline. CARDIOVASCULAR: Regular rate and rhythm. No peripheral edema. RESPIRATORY: Breath sounds equal but coarse bilaterally. No accessory muscle use. Poor effort. GASTROINTESTINAL: Abdomen soft, non-tender, nondistended. PEG site intact. EXTREMITIES: No cyanosis, or edema. NEUROLOGICAL: Awake, alert. She has leftward gaze preference. She does not follow commands. Nonverbal. 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 s/p Dr. Meléndez performed left decompressive craniotomy 04/25 with evacuation of temporal hematoma. STEAM TUNNEL FEEDER shunt placed 05/07. S/p bone flap on 05/22. -Malignant Hypertension (Hypertensive emergency) on admission -- s/p permissive Hypertension for prevention of vasospasm, s/p 3 weeks of Nimotop therapy for vasospasm prevention. in SAH patient. now targeting SBP < 160. Continue Norvasc 10 q day, HCTZ 25 mg daily 05/16, labetalol 300 mg PO TID, hydralazine 100 mg q8. Hold parameters. Blood pressure stable. No change in management. 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 Not a candidate for surgical intervention due to devastating neuro injury -Acute respiratory failure (now chronic resp failure) secondary to SAH / ICH. s/ p tracheostomy 04/29. Cristino TP 23/03. Continue DuoNeb q 4 hours as needed -Severe tongue lacerations/p tongue laceration repair by Dr. Booth 05/16/16. -Mild protein calorie malnutrition - s/p PEG 04/28. Tolerating tube feeds (Jevity ) at goal of 50 cc/hr (-25-30 kcal/kg/day) -Mild transaminitis. probable fatty liver. repeat LFT in a.m. -Anemia of chronic inflammation / disease. Hgb stable with no signs of active bleeding -Sepsis secondary to pneumonia and prior UTI - resolved, now off all abx. -Hyperkalemia-continue hydrochlorothiazide, resolved with Lasix. -Prophylaxis: GI - oral Zantac q 12 DVT - SCDs; Lovenox 40 q day -Rehab: PT / OT Will eventually need LTACH / SNF -IV Access: Peripheral iv 05/26/16 No overnight events, discussed with MICKEY Krishnamurthy, blood pressure stable. Possible discharge tomorrow. No change in management Rob Khalil MD May 26, 2016 16:01
[2016-05-27] VITALS (8 sets, daily range): BP systolic 108–132; BP diastolic 68–82; PULSE 78–90; RESP 18–21; TEMP 96.6–97.8; O2SAT 96–100
[2016-05-27] MEDS: CHLORHEXIDINE GLUCONATE 2 % 1 PACK (2 CLOTHS) TOP SCH (04:00)
[2016-05-27] MEDS: LABETALOL HCL 300 MG TAB PO SCH ×3 (06:37→21:11)
[2016-05-27] MEDS: hydrALAZINE HCL 25 MG TAB TUBE SCH ×3 (06:37→21:11)
[2016-05-27] MEDS: FAMOTIDINE 20 MG TAB PO SCH ×2 (08:35→21:11)
[2016-05-27] MEDS: HYDROCHLOROTHIAZIDE 25 MG TAB PO SCH (08:35)
[2016-05-27] MEDS: SODIUM CHLORIDE 0.9% FLUSH 5 ML FLUSH IVF SCH ×2 (08:35→21:11)
[2016-05-27] MEDS: ENOXAPARIN SODIUM 40 MG/0.4 ML SYRINGE SQ SCH (08:36)
--- NOTE | 2016-05-27 09:43 | HHI.NSPN ---
(Genna Madrid) History Chief Complaint: status post coil for aneurysm (Genna Madrid) Interval History 04/12/16: Patient had an aneurysm coiled yesterday, intubated and sedated, ICP stable overnight 04/13/16: Increased ICP overnight, improved after a 23% saline bolus 04/14/16: ICP stable overnight 04/15/16: ICP stable, CTA stable no vasospasm 04/16/16: ICP slight increase overnight now stabilized, intubated and sedated 04/17/16: ICP increased yesterday afternoon, repeat CTA and CT stable, no vasospasm, no new hemorrhage, hypothermia overnight 04/21/16: increasing ICP over the weekend, getting 23% every 6 hours PRN. 04/22/16: ICP responding over night to 23% saline, CT and CTA planned this am. Nimbex off since yesterday. 04/23/16: ICP stable overnight, SBP increasing today RN adjusting pressors, HGB improved after 2 units of PRBC, no signs of active bleeding 04/24/16: ICP increased overnight with stimulation but not sustained, low HGB again today receiving PRBC this am 04/25/16: ICP max 38 overnight, currently 10, no family at bedside. 04/26/16: She has ventriculostomy drain in place. She underwent left decompressive craniectomy yesterday 04/[address] Meléndez due to elevated ICPs. Today, ICPs improved, currently 4. 04/27/16: intermittent spikes in ICPs overnight in low 20's controlled with hyperosmotic bolus. Currently 9. well sedated. 04/28/16: ICP stable between 9-14 per RN. EVD draining blood tinged CSF, flap firm non-pulsatile 04/29/16: ICP stable overnight, PEG yesterday, Trach today. 04/30/16: EVD clamped 05/01/16: EVD clamped, ICP max 17, currently 14. 05/02/16: EVD draining, ICP 9, no sedation 05/03/16: Pt with eyes open. Not following commands. Pupils 4mm bilaterally reactive bilaterally. Ventriculostomy in place at [id number]. ICP 8. 9: Pt with eyes open. Not following commands. Pupils 4mm bilaterally reactive bilaterally. Ventriculostomy in place at [id number]. ICP 8. 9: Day 24 after PCOM aneurysm bleed and coiling, Pupils reactives, eyes now open and she is more alert. EVD was clamped this am, remains straw coloured. 05/06/16: eyes open, very mild flexion to deep pain in the upper extremities. 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 for MECHANICAL HANDYMAN shunt placement 05/08/16: POD 1 from shunt placement, eyes open, does not track 05/09/16: POD 2 no withdrawal on exam today and eyes are more deviated 05/10/16: EEG negative for seizures yesterday, labile HTN, stable neuro hoff 05/11/16: no changes overnight 05/12/16: no changes per nurse 05/13/16: stable overnight 05/14/16: stable overnight, increase angioedema 05/15/16: stable overnight, angioedema slightly improved with Decadron 05/16/16: stable overnight, angioedema seems worse this am. 05/18/16 Day 37 after coiling of aneurysm, left frontal bone flap off, s/p right frontal MECHANICAL HANDYMAN shunt, sepsis improved, s/p surgery on decayed teeth and tongue injury, now more alert and afebrile. 05/19/16: stable overnight, left flap sunken, tongue appearance approved status post repair 05/20/16: stable overnight, left flap sunken, tracks with eyes, stable neuro exam 05/21/16: stable overnight, neuro exam slightly improves daily 05/22/16: surgery replacement left bone flap 05/23/16: awake, alert, following commands, incision covered in a dry dressing. 05/24/16: awake, alert, following, incision covered in a dry dressing, 05/25/16: sleeping, discussed with nurse no concerns 05/26/16: lying in bed, eyes open. alert, appears to be attempting to mouth words. 05/27/16: being changed in bed, d/w nurse no changes or concerns (Genna Madrid) Exam Results Vital Signs Date Time Temp Pulse Resp B/P Pulse Ox O2 Delivery O2 Flow Rate FiO2 05/27/16 08:17 97.5 78 20 109/68 96 05/26/16 22:36 Trach Collar 21 Humidified 05/26/16 07:35 6.00 Intake and Output 05/26/16 05/26/16 05/27/16 08:00 16:00 00:00 Intake Total 505 ml Output Total 0 ml Balance 505 ml 0 ml (Genna Madrid) Physical Examination Not examined.Being changed in bed. Discussed with nurse. No neuro changes or concerns. (Genna Madrid) Lab, Micro, Other Results Last Impressions Head CT 05/23/16 0600 Signed Impressions: Service Date/Time: Monday, May 23, 2016 04:48 - CONCLUSION: 1. The left craniotomy defect has been repaired. 2. Small blood and air in the left subdural space, up to 6 mm in maximal thickness. Subdural drain in place. 3. Evolving encephalomalacia of the left frontal and temporal lobes. 4. 2 mm of rightward midline shift. 5. Shunted. No ventriculomegaly. Fei Hughes MD Chest X-Ray 05/17/16 0600 Signed Impressions: Service Date/Time: Tuesday, May 17, 2016 04:59 - CONCLUSION: 1. Minimal basilar atelectasis. Cardiomegaly. Quinn Bateman MD Skull X-Ray 05/08/16 0000 Signed Impressions: Service Date/Time: May 10:16 - CONCLUSION: Shunt set to 70-80 mm H2O. Fei Snyder MD Head CTA 05/02/16 0600 Signed Impressions: Service Date/Time: Monday, May 02, 2016 04:32 - CONCLUSION: Satisfactory appearance post aneurysm coiling Fei Snyder MD Abdomen/Pelvis CT 04/24/16 1416 Signed Impressions: Service Date/Time: March 14:39 - CONCLUSION: Mild small bowel ileus with scattered air-fluid levels. Bibasilar lung consolidation with associated small effusions. Significant soft tissue fluid accumulation with edematous changes throughout the abdominal wall. Nasogastric tube in good position. Saqib Garcia MD Neck CTA 04/11/16 1151 Signed Impressions: Service Date/Time: Monday, April 11, 2016 12:01 - CONCLUSION: Negative for hemodynamically significant carotid stenosis. Ricardo Castellanos MD FACR Cerebral Arteriogram 04/11/16 0000 Signed Impressions: Service Date/Time: Monday, April 11, 2016 14:18 - CONCLUSION: 1. 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 This is the aneurysm felt responsible for the intracranial hemorrhage. 2. Small 4 mm left M1 segment aneurysm. Attempts at embolizing this aneurysm were unsuccessful due to the broad based nature of the aneurysm. Endovascular repair of this aneurysm could not be performed. Kennedy Thibodeaux Jr., MD (Genna Madrid) Medical Decision Making Impression and Plan Impression: 1. Neurologic exam stable following endovascular coiling of ruptured cerebral aneurysm with subsequent left decompressive craniotomy 04/14/16 CT angiogram stable: Status post endovascular repair of left supraclinoid aneurysm. Left M1 segment aneurysm stable 04/16/[address] and CTA stable. No vasospasm, no new hemorrhage. 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 Midline shift has resolved but there is persistent herniation of brain at the craniotomy defect. No new or acute blood demonstrated. Mild to moderate ventriculomegaly, increased. Codman Valve adjusted to [id number]. 05/09/16: stable head CT, improving ventriculomegaly 05/09/16: Negative EEG 05/12/16: Head CT stable 05/21/16: Head CT stable 05/22/16: Surgery to replace left bone flap 05/23/16: stable head CT, mild mass effect 2. Angioedema and Tongue laceration- s/p repair with Dr. Booth 05/16/16 Plan: D/w case management SSI pending. No d/c date planned. Continue tube feeds as tolerated. Hospitalist following for medical management. Zantac for ulcer prophylaxis Lovenox for DVT prophylaxis PT (Genna Madrid) Attending Statement On the date of this note, the undersigned had a [id number] encounter with the patient. I personally examined the patient, obtained pertinent history, and reviewed the electronic medical record including pertinent laboratory results and imaging studies. I personally developed the treatment plan and perform medical decision making. All of the above was performed in the presence of the physician's technical support assistant, who has scribed my findings into the medical record as noted above. (Sherwin Meléndez MD) Genna Madrid May 27, 2016 09:42 Sherwin Meléndez MD May 27, 2016 23:11
--- NOTE | 2016-05-27 10:19 | HHI.PR ---
Subjective Remarks Follow-up for hypertension and a Patient has been normotensive, no overnight events, discussed with RN, no changes. Mental status stable. Objective Vitals Vital Signs Date Time Temp Pulse Resp B/P Pulse Ox O2 Delivery O2 Flow Rate FiO2 05/27/16 08:17 97.5 78 20 109/68 96 05/27/16 04:00 96.6 90 18 112/76 99 05/27/16 00:27 97.3 86 20 114/76 97 05/26/16 22:36 100 Trach Collar 21 Humidified 05/26/16 20:50 98 Trach Collar 21 05/26/16 20:00 96.4 97 17 120/76 99 05/26/16 16:23 97.4 83 22 117/79 99 05/26/16 13:03 97.5 93 22 121/83 98 I/O 05/26/16 05/26/16 05/26/16 05/27/16 05/27/16 05/27/16 07:00 15:00 23:00 07:00 15:00 23:00 Intake Total 505 ml 750 ml Output Total 0 ml 0 ml Balance 505 ml 0 ml 750 ml Intake Oral 0 ml Tube Feeding 305 ml 550 ml Other 200 ml 200 ml Tube Feeding Residual Discard 0 ml 0 ml # Voids 2 2 2 # Bowel Movements 0 1 1 Result Diagram: 05/25/1631005/25/16310 Objective Remarks GENERAL: Not in distress, nonverbal. SKIN: Warm and dry. Oropharyngeal: Bite guard in place. Tongue swelling seems to have resolved EYES: No scleral icterus. No injection or drainage. NECK: Supple, trachea midline. CARDIOVASCULAR: Regular rate and rhythm. No peripheral edema. RESPIRATORY: Breath sounds equal but coarse bilaterally. No accessory muscle use. Poor effort. GASTROINTESTINAL: Abdomen soft, non-tender, nondistended. PEG site intact. EXTREMITIES: No cyanosis, trace edema NEUROLOGICAL: Awake, alert. She has leftward gaze preference. Sometimes tracking. She does not follow commands. Nonverbal. 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 s/p Dr. Meléndez performed left decompressive craniotomy 04/25 with evacuation of temporal hematoma. SMOKE CHASER shunt placed 05/07. S/p bone flap on 05/22. -Malignant Hypertension (Hypertensive emergency) on admission -- s/p 3 weeks of Nimotop therapy for vasospasm prevention. in SAH patient. now targeting SBP < 160. Continue Norvasc 10 q day, HCTZ 25 mg daily , labetalol 300 mg PO TID, hydralazine 75 mg q8. Hold parameters. Blood pressure stable. No change in management. 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 Not a candidate for surgical intervention due to devastating neuro injury -Acute respiratory failure (now chronic resp failure) secondary to SAH / ICH. s/ p tracheostomy 04/29. Cristino TP 23/03. Continue DuoNeb q 4 hours as needed -Severe tongue lacerations/p tongue laceration repair by Dr. Booth 05/16/16. -Mild protein calorie malnutrition - s/p PEG 04/28. Tolerating tube feeds (Jevity ) at goal of 50 cc/hr (-25-30 kcal/kg/day) -Mild transaminitis. probable fatty liver. LFTs stable. -Anemia of chronic inflammation / disease. Hgb stable with no signs of active bleeding -Sepsis secondary to pneumonia and prior UTI - resolved, now off all abx. -Hyperkalemia-continue hydrochlorothiazide, resolved with Lasix. -Prophylaxis: GI - oral Zantac q 12 DVT - SCDs; Lovenox 40 q day -Rehab: PT / OT Will eventually need LTACH / SNF No change in management, we will sign off in the next few days if patient remains stable. Rob Khalil MD May 27, 2016 10:19
[2016-05-28] VITALS (10 sets, daily range): BP systolic 107–130; BP diastolic 68–87; PULSE 73–90; RESP 18–20; TEMP 97–98.2; O2SAT 95–100
[2016-05-28] MEDS: CHLORHEXIDINE GLUCONATE 2 % 1 PACK (2 CLOTHS) TOP SCH (03:26)
[2016-05-28] MEDS: hydrALAZINE HCL 25 MG TAB TUBE SCH ×3 (06:32→20:42)
[2016-05-28] MEDS: LABETALOL HCL 300 MG TAB PO SCH ×3 (06:32→20:42)
[2016-05-28] MEDS: ENOXAPARIN SODIUM 40 MG/0.4 ML SYRINGE SQ SCH (08:48)
[2016-05-28] MEDS: FAMOTIDINE 20 MG TAB PO SCH ×2 (08:48→20:42)
[2016-05-28] MEDS: HYDROCHLOROTHIAZIDE 25 MG TAB PO SCH (08:48)
[2016-05-28] MEDS: SODIUM CHLORIDE 0.9% FLUSH 5 ML FLUSH IVF SCH ×2 (08:48→20:42)
[2016-05-28] MEDS: ACETAMINOPHEN/HYDROcodone 325 MG/5 MG TAB PO PRN ×2 (09:25→15:19)
--- NOTE | 2016-05-28 09:51 | HHI.NSPN ---
(Genna Madrid) History Chief Complaint: status post coil for aneurysm (Genna Madrid) Interval History 04/12/16: Patient had an aneurysm coiled yesterday, intubated and sedated, ICP stable overnight 04/13/16: Increased ICP overnight, improved after a 23% saline bolus 04/14/16: ICP stable overnight 04/15/16: ICP stable, CTA stable no vasospasm 04/16/16: ICP slight increase overnight now stabilized, intubated and sedated 04/17/16: ICP increased yesterday afternoon, repeat CTA and CT stable, no vasospasm, no new hemorrhage, hypothermia overnight 04/21/16: increasing ICP over the weekend, getting 23% every 6 hours PRN. 04/22/16: ICP responding over night to 23% saline, CT and CTA planned this am. Nimbex off since yesterday. 04/23/16: ICP stable overnight, SBP increasing today RN adjusting pressors, HGB improved after 2 units of PRBC, no signs of active bleeding 04/24/16: ICP increased overnight with stimulation but not sustained, low HGB again today receiving PRBC this am 04/25/16: ICP max 38 overnight, currently 10, no family at bedside. 04/26/16: She has ventriculostomy drain in place. She underwent left decompressive craniectomy yesterday 04/[address] Meléndez due to elevated ICPs. Today, ICPs improved, currently 4. 04/27/16: intermittent spikes in ICPs overnight in low 20's controlled with hyperosmotic bolus. Currently 9. well sedated. 04/28/16: ICP stable between 9-14 per RN. EVD draining blood tinged CSF, flap firm non-pulsatile 04/29/16: ICP stable overnight, PEG yesterday, Trach today. 04/30/16: EVD clamped 05/01/16: EVD clamped, ICP max 17, currently 14. 05/02/16: EVD draining, ICP 9, no sedation 05/03/16: Pt with eyes open. Not following commands. Pupils 4mm bilaterally reactive bilaterally. Ventriculostomy in place at [id number]. ICP 8. 9: Pt with eyes open. Not following commands. Pupils 4mm bilaterally reactive bilaterally. Ventriculostomy in place at [id number]. ICP 8. 9: Day 24 after PCOM aneurysm bleed and coiling, Pupils reactives, eyes now open and she is more alert. EVD was clamped this am, remains straw coloured. 05/06/16: eyes open, very mild flexion to deep pain in the upper extremities. 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 for GATE AGENT shunt placement 05/08/16: POD 1 from shunt placement, eyes open, does not track 05/09/16: POD 2 no withdrawal on exam today and eyes are more deviated 05/10/16: EEG negative for seizures yesterday, labile HTN, stable neuro hoff 05/11/16: no changes overnight 05/12/16: no changes per nurse 05/13/16: stable overnight 05/14/16: stable overnight, increase angioedema 05/15/16: stable overnight, angioedema slightly improved with Decadron 05/16/16: stable overnight, angioedema seems worse this am. 05/18/16 Day 37 after coiling of aneurysm, left frontal bone flap off, s/p right frontal GATE AGENT shunt, sepsis improved, s/p surgery on decayed teeth and tongue injury, now more alert and afebrile. 05/19/16: stable overnight, left flap sunken, tongue appearance approved status post repair 05/20/16: stable overnight, left flap sunken, tracks with eyes, stable neuro exam 05/21/16: stable overnight, neuro exam slightly improves daily 05/22/16: surgery replacement left bone flap 05/23/16: awake, alert, following commands, incision covered in a dry dressing. 05/24/16: awake, alert, following, incision covered in a dry dressing, 05/25/16: sleeping, discussed with nurse no concerns 05/26/16: lying in bed, eyes open. alert, appears to be attempting to mouth words. 05/27/16: being changed in bed, d/w nurse no changes or concerns 05/28/16: stable overnight per RN (Genna Madrid) Exam Results Vital Signs Date Time Temp Pulse Resp B/P Pulse Ox O2 Delivery O2 Flow Rate FiO2 05/28/16 08:19 98 Trach Collar 6.00 21 05/28/16 07:38 97.0 84 18 126/85 Intake and Output 05/27/16 05/27/16 05/28/16 08:00 16:00 00:00 Intake Total 750 ml Output Total 0 ml 0 ml Balance 750 ml 0 ml (Genna Madrid) Physical Examination Eyes open. Tracks. Pupils midposition and reactive to light. Tongue edema is stable. Tongue hangs out of mouth appears well perfused covered in a wet dressing. Bite block in place. Follows commands intermittently on the left. Right hemiparesis. (Genna Madrid) Lab, Micro, Other Results Last Impressions Head CT 05/23/16 06 Signed Impressions: Service Date/Time: Monday, May 23, 2016 04:48 - CONCLUSION: 1. The left craniotomy defect has been repaired. 2. Small blood and air in the left subdural space, up to 6 mm in maximal thickness. Subdural drain in place. 3. Evolving encephalomalacia of the left frontal and temporal lobes. 4. 2 mm of rightward midline shift. 5. Shunted. No ventriculomegaly. Fei Hughes MD Chest X-Ray 05/17/16 0600 Signed Impressions: Service Date/Time: Tuesday, May 17, 2016 04:59 - CONCLUSION: 1. Minimal basilar atelectasis. Cardiomegaly. Quinn Bateman MD Skull X-Ray 05/08/16 0000 Signed Impressions: Service Date/Time: May 10:16 - CONCLUSION: Shunt set to 70-80 mm H2O. Fei Snyder MD Head CTA 05/02/16 0600 Signed Impressions: Service Date/Time: Monday, May 02, 2016 04:32 - CONCLUSION: Satisfactory appearance post aneurysm coiling Fei Snyder MD Abdomen/Pelvis CT 04/24/16 1416 Signed Impressions: Service Date/Time: March 14:39 - CONCLUSION: Mild small bowel ileus with scattered air-fluid levels. Bibasilar lung consolidation with associated small effusions. Significant soft tissue fluid accumulation with edematous changes throughout the abdominal wall. Nasogastric tube in good position. Saqib F. Jose, MD Neck CTA 04/11/16 1151 Signed Impressions: Service Date/Time: Monday, April 11, 2016 12:01 - CONCLUSION: Negative for hemodynamically significant carotid stenosis. Ricardo Castellanos MD FACR Cerebral Arteriogram 04/11/16 0000 Signed Impressions: Service Date/Time: Monday, April 11, 2016 14:18 - CONCLUSION: 1. 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 This is the aneurysm felt responsible for the intracranial hemorrhage. 2. Small 4 mm left M1 segment aneurysm. Attempts at embolizing this aneurysm were unsuccessful due to the broad based nature of the aneurysm. Endovascular repair of this aneurysm could not be performed. Kennedy Thibodeaux Jr., MD (Genna Madrid) Medical Decision Making Impression and Plan Impression: 1. Neurologic exam stable following endovascular coiling of ruptured cerebral aneurysm with subsequent left decompressive craniotomy 04/14/16 CT angiogram stable: Status post endovascular repair of left supraclinoid aneurysm. Left M1 segment aneurysm stable 04/16/[address] and CTA stable. No vasospasm, no new hemorrhage. 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 Midline shift has resolved but there is persistent herniation of brain at the craniotomy defect. No new or acute blood demonstrated. Mild to moderate ventriculomegaly, increased. Codman Valve adjusted to [id number]. 05/09/16: stable head CT, improving ventriculomegaly 05/09/16: Negative EEG 05/12/16: Head CT stable 05/21/16: Head CT stable 05/22/16: Surgery to replace left bone flap 05/23/16: stable head CT, mild mass effect 2. Angioedema and Tongue laceration- s/p repair with Dr. Booth 05/16/16 Plan: .d/c head dressing consult wound nurse for posterior decubitus reported by RN Continue tube feeds as tolerated. Hospitalist following for medical management. Zantac for ulcer prophylaxis Lovenox for DVT prophylaxis PT/OOB to stretcher chair (Genna Madrid) Attending Statement On the date of this note, the undersigned had a [id number] encounter with the patient. I personally examined the patient, obtained pertinent history, and reviewed the electronic medical record including pertinent laboratory results and imaging studies. I personally developed the treatment plan and perform medical decision making. All of the above was performed in the presence of the physician's physicians assistant, who has scribed my findings into the medical record as noted above. (Sherwin Meléndez MD) Genna Madrid May 28, 2016 09:51 Sherwin Meléndez MD May 28, 2016 21:17
[2016-05-28] MEDS: RESP: ALBUTEROL 2.5 MG/IPRATROPIUM 0.5 MG NEB (PRN) INH (11:50)
[2016-05-29] MEDS: CHLORHEXIDINE GLUCONATE 2 % 1 PACK (2 CLOTHS) TOP SCH (04:00)
[2016-05-29] MEDS: LABETALOL HCL 300 MG TAB PO SCH ×3 (05:16→20:31)
[2016-05-29] MEDS: hydrALAZINE HCL 25 MG TAB TUBE SCH ×3 (05:16→20:32)
[2016-05-29 08:00] VITALS: BP 126/82; PULSE 75; RESP 18; TEMP 95.9; O2SAT 95
[2016-05-29] MEDS: SODIUM CHLORIDE 0.9% FLUSH 5 ML FLUSH IVF SCH ×2 (09:07→20:32)
[2016-05-29] MEDS: HYDROCHLOROTHIAZIDE 25 MG TAB PO SCH (09:07)
[2016-05-29] MEDS: FAMOTIDINE 20 MG TAB PO SCH ×2 (09:07→20:31)
[2016-05-29] MEDS: ENOXAPARIN SODIUM 40 MG/0.4 ML SYRINGE SQ SCH (09:08)
--- NOTE | 2016-05-29 09:11 | HHI.NSPN ---
(Genna Madrid) History Chief Complaint: status post coil for aneurysm (Genna Madrid) Interval History 04/12/16: Patient had an aneurysm coiled yesterday, intubated and sedated, ICP stable overnight 04/13/16: Increased ICP overnight, improved after a 23% saline bolus 04/14/16: ICP stable overnight 04/15/16: ICP stable, CTA stable no vasospasm 04/16/16: ICP slight increase overnight now stabilized, intubated and sedated 04/17/16: ICP increased yesterday afternoon, repeat CTA and CT stable, no vasospasm, no new hemorrhage, hypothermia overnight 04/21/16: increasing ICP over the weekend, getting 23% every 6 hours PRN. 04/22/16: ICP responding over night to 23% saline, CT and CTA planned this am. Nimbex off since yesterday. 04/23/16: ICP stable overnight, SBP increasing today RN adjusting pressors, HGB improved after 2 units of PRBC, no signs of active bleeding 04/24/16: ICP increased overnight with stimulation but not sustained, low HGB again today receiving PRBC this am 04/25/16: ICP max 38 overnight, currently 10, no family at bedside. 04/26/16: She has ventriculostomy drain in place. She underwent left decompressive craniectomy yesterday 04/[address] Meléndez due to elevated ICPs. Today, ICPs improved, currently 4. 04/27/16: intermittent spikes in ICPs overnight in low 20's controlled with hyperosmotic bolus. Currently 9. well sedated. 04/28/16: ICP stable between 9-14 per RN. EVD draining blood tinged CSF, flap firm non-pulsatile 04/29/16: ICP stable overnight, PEG yesterday, Trach today. 04/30/16: EVD clamped 05/01/16: EVD clamped, ICP max 17, currently 14. 05/02/16: EVD draining, ICP 9, no sedation 05/03/16: Pt with eyes open. Not following commands. Pupils 4mm bilaterally reactive bilaterally. Ventriculostomy in place at [id number]. ICP 8. 9: Pt with eyes open. Not following commands. Pupils 4mm bilaterally reactive bilaterally. Ventriculostomy in place at [id number]. ICP 8. 9: Day 24 after PCOM aneurysm bleed and coiling, Pupils reactives, eyes now open and she is more alert. EVD was clamped this am, remains straw coloured. 05/06/16: eyes open, very mild flexion to deep pain in the upper extremities. 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 for WAGE AND HOUR INVESTIGATOR shunt placement 05/08/16: POD 1 from shunt placement, eyes open, does not track 05/09/16: POD 2 no withdrawal on exam today and eyes are more deviated 05/10/16: EEG negative for seizures yesterday, labile HTN, stable neuro hoff 05/11/16: no changes overnight 05/12/16: no changes per nurse 05/13/16: stable overnight 05/14/16: stable overnight, increase angioedema 05/15/16: stable overnight, angioedema slightly improved with Decadron 05/16/16: stable overnight, angioedema seems worse this am. 05/18/16 Day 37 after coiling of aneurysm, left frontal bone flap off, s/p right frontal WAGE [employer] H[employer] INVESTIGATOR shunt, sepsis improved, s/p surgery on decayed teeth and tongue injury, now more alert and afebrile. 05/19/16: stable overnight, left flap sunken, tongue appearance approved status post repair 05/20/16: stable overnight, left flap sunken, tracks with eyes, stable neuro exam 05/21/16: stable overnight, neuro exam slightly improves daily 05/22/16: surgery replacement left bone flap 05/23/16: awake, alert, following commands, incision covered in a dry dressing. 05/24/16: awake, alert, following, incision covered in a dry dressing, 05/25/16: sleeping, discussed with nurse no concerns 05/26/16: lying in bed, eyes open. alert, appears to be attempting to mouth words. 05/27/16: being changed in bed, d/w nurse no changes or concerns 05/28/16: stable overnight per RN 05/29/16: stable overnight, no concerns (Genna Madrid) Exam Results Vital Signs Date Time Temp Pulse Resp B/P Pulse Ox O2 Delivery O2 Flow Rate FiO2 05/28/16 23:00 98.0 79 18 107/75 100 05/28/16 20:20 T-piece 21 05/28/16 08:45 8.00 Intake and Output 05/28/16 05/28/16 05/29/16 08:00 16:00 00:00 Output Total 0 ml 0 ml Balance 0 ml 0 ml (Genna Madrid) Physical Examination Eyes open. Tracks. Pupils midposition and reactive to light. Tongue edema is stable. Tongue hangs out of mouth appears well perfused covered in a wet dressing. Bite block in place. Follows commands on the left. Right hemiparesis. Reaching out for her brother and holding his hand today. (Genna Madrid) Lab, Micro, Other Results Last Impressions Head CT 05/23/16 0600 Signed Impressions: Service Date/Time: Monday, May 23, 2016 04:48 - CONCLUSION: 1. The left craniotomy defect has been repaired. 2. Small blood and air in the left subdural space, up to 6 mm in maximal thickness. Subdural drain in place. 3. Evolving encephalomalacia of the left frontal and temporal lobes. 4. 2 mm of rightward midline shift. 5. Shunted. No ventriculomegaly. Fei Hughes MD Chest X-Ray 05/17/16 0600 Signed Impressions: Service Date/Time: Tuesday, May 17, 2016 04:59 - CONCLUSION: 1. Minimal basilar atelectasis. Cardiomegaly. Quinn Bateman MD Skull X-Ray 05/08/16 0000 Signed Impressions: Service Date/Time: May 10:16 - CONCLUSION: Shunt set to 70-80 mm H2O. Fei Snyder MD Head CTA 05/02/16 0600 Signed Impressions: Service Date/Time: Monday, May 02, 2016 04:32 - CONCLUSION: Satisfactory appearance post aneurysm coiling Fei Snyder MD Abdomen/Pelvis CT 04/24/16 1416 Signed Impressions: Service Date/Time: March 14:39 - CONCLUSION: Mild small bowel ileus with scattered air-fluid levels. Bibasilar lung consolidation with associated small effusions. Significant soft tissue fluid accumulation with edematous changes throughout the abdominal wall. Nasogastric tube in good position. Saqib Garcia MD Neck CTA 04/11/16 1151 Signed Impressions: Service Date/Time: Monday, April 11, 2016 12:01 - CONCLUSION: Negative for hemodynamically significant carotid stenosis. Ricardo Castellanos MD FACR Cerebral Arteriogram 04/11/16 0000 Signed Impressions: Service Date/Time: Monday, April 11, 2016 14:18 - CONCLUSION: 1. 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 This is the aneurysm felt responsible for the intracranial hemorrhage. 2. Small 4 mm left M1 segment aneurysm. Attempts at embolizing this aneurysm were unsuccessful due to the broad based nature of the aneurysm. Endovascular repair of this aneurysm could not be performed. Kennedy Thibodeaux Jr., MD (Genna Madrid) Medical Decision Making Impression and Plan Impression: 1. Neurologic exam stable following endovascular coiling of ruptured cerebral aneurysm with subsequent left decompressive craniotomy 04/14/16 CT angiogram stable: Status post endovascular repair of left supraclinoid aneurysm. Left M1 segment aneurysm stable 04/16/[address] and CTA stable. No vasospasm, no new hemorrhage. 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 Midline shift has resolved but there is persistent herniation of brain at the craniotomy defect. No new or acute blood demonstrated. Mild to moderate ventriculomegaly, increased. Codman Valve adjusted to [id number]. 05/09/16: stable head CT, improving ventriculomegaly 05/09/16: Negative EEG 05/12/16: Head CT stable 05/21/16: Head CT stable 05/22/16: Surgery to replace left bone flap 05/23/16: stable head CT, mild mass effect 2. Angioedema and Tongue laceration- s/p repair with Dr. Booth 05/16/16 Plan: continue current care Wound nurse consult pending, for posterior decubitus reported by RN Continue tube feeds as tolerated. Hospitalist following for medical management. Zantac for ulcer prophylaxis Lovenox for DVT prophylaxis PT/OOB to stretcher chair D/W brother at bedside 2 minutes, all questions answered (Genna Madrid) Attending Statement On the date of this note, the undersigned had a [id number] encounter with the patient. I personally examined the patient, obtained pertinent history, and reviewed the electronic medical record including pertinent laboratory results and imaging studies. I personally developed the treatment plan and perform medical decision making. All of the above was performed in the presence of the physician's cable splicer assistant, who has scribed my findings into the medical record as noted above. (Sherwin Meléndez MD) Genna Madrid May 29, 2016 09:11 Sherwin Meléndez MD May 30, 2016 19:55
[2016-05-29 12:00] VITALS: BP 103/57; PULSE 86; RESP 20; TEMP 98.8; O2SAT 98
[2016-05-29 16:00] VITALS: BP 121/81; PULSE 85; RESP 18; TEMP 97.9; O2SAT 97
[2016-05-29 20:00] VITALS: BP 140/85; PULSE 84; RESP 18; TEMP 98; O2SAT 98
[2016-05-29] MEDS: ACETAMINOPHEN/HYDROcodone 325 MG/5 MG TAB PO PRN (20:31)
[2016-05-30] VITALS (7 sets, daily range): BP systolic 118–133; BP diastolic 74–91; PULSE 82–101; RESP 18–21; TEMP 96.6–98.8; O2SAT 95–100
[2016-05-30] MEDS: CHLORHEXIDINE GLUCONATE 2 % 1 PACK (2 CLOTHS) TOP SCH (04:00)
[2016-05-30] MEDS: LABETALOL HCL 300 MG TAB PO SCH ×3 (05:37→20:45)
[2016-05-30] MEDS: hydrALAZINE HCL 25 MG TAB TUBE SCH ×3 (05:37→20:45)
[2016-05-30] MEDS: ACETAMINOPHEN/HYDROcodone 325 MG/5 MG TAB PO PRN (05:38)
[2016-05-30] MEDS: SODIUM CHLORIDE 0.9% FLUSH 5 ML FLUSH IVF SCH ×2 (09:25→20:46)
[2016-05-30] MEDS: FAMOTIDINE 20 MG TAB PO SCH ×2 (09:25→20:45)
[2016-05-30] MEDS: HYDROCHLOROTHIAZIDE 25 MG TAB PO SCH (09:25)
[2016-05-30] MEDS: ENOXAPARIN SODIUM 40 MG/0.4 ML SYRINGE SQ SCH (09:25)
--- NOTE | 2016-05-30 19:57 | HHI.NSPN ---
History Chief Complaint: status post coil for aneurysm Interval History 04/12/16: Patient had an aneurysm coiled 04/11/2016, intubated and sedated, ICP stable overnight 04/29/2016: Tracheostomy and PEG placement Exam Results Vital Signs Date Time Temp Pulse Resp B/P Pulse Ox O2 Delivery O2 Flow Rate FiO2 05/30/16 12:00 96.6 94 21 129/78 100 05/30/16 11:06 T-piece 5.00 21 Intake and Output 05/29/16 05/29/16 05/30/16 08:00 16:00 00:00 Intake Total 650 ml Output Total 0 ml Balance 650 ml 0 ml Physical Examination Eyes open. Tracks. Pupils midposition and reactive to light. Tongue edema is stable. Tongue hangs out of mouth appears well perfused covered in a wet dressing. Bite block in place. Follows commands on the left. Right hemiparesis. Seems to grasp left hand to command. Tracks objects in left visual fink Medical Decision Making Impression and Plan Impression: 1. Neurologic exam stable improved following endovascular coiling of ruptured cerebral aneurysm with subsequent left decompressive craniotomy Plan: Continuing tube feedings for nutrition Wound care nurse evaluation for lumbosacral skin breakdown. Continuing decubitus precautions Tracheostomy care Continuing therapy Case management following Bite-block in place for tongue laceration-edema improving Sherwin Meléndez MD May 30, 2016 19:57
[2016-05-31] VITALS (8 sets, daily range): BP systolic 100–128; BP diastolic 66–89; PULSE 86–104; RESP 18–20; TEMP 96–99.4; O2SAT 97–100
[2016-05-31] MEDS: CHLORHEXIDINE GLUCONATE 2 % 1 PACK (2 CLOTHS) TOP SCH ×2 (04:00→21:40)
[2016-05-31] MEDS: hydrALAZINE HCL 25 MG TAB TUBE SCH ×3 (06:00→21:40)
[2016-05-31] MEDS: LABETALOL HCL 300 MG TAB PO SCH ×3 (06:00→21:39)
--- NOTE | 2016-05-31 08:06 | HHI.NSPN ---
History Interval History Stable and improving Review of Systems General: Negative for: fever, chills, insomnia Respiratory: Negative for: shortness of breath, cough, sputum Cardiovascular: Negative for: chest pain, palpitations, orthopnea Gastrointestinal: Negative for: nausea, vomitting, diarrhea, constipation Exam Results Vital Signs Date Time Temp Pulse Resp B/P Pulse Ox O2 Delivery O2 Flow Rate FiO2 05/31/16 08:01 99 T-piece 21 05/31/16 04:14 98.8 93 18 117/76 05/30/16 19:30 5.00 Intake and Output 05/30/16 05/30/16 05/30/16 07:59 15:59 23:59 Intake Total 650 ml Output Total 0 ml 0 ml Balance 650 ml 0 ml 0 ml Physical Examination Eyes open. Tracks. Pupils midposition and reactive to light. Tongue edema is stable. Tongue hangs out of mouth appears well perfused covered in a wet dressing. Bite block in place. Follows commands on the left. Right hemineglect. Seems to grasp left hand to command, flexes the lower extremities bilaterally left better than right Tracks objects in left visual fink Wounds are healing well, yaneth are intact on the left Medical Decision Making Impression and Plan Stable neurologically and improve alertness. Total Minutes: 10 Kolby Morris May 31, 2016 08:06
[2016-05-31] MEDS: FAMOTIDINE 20 MG TAB PO SCH ×2 (09:42→21:39)
[2016-05-31] MEDS: ENOXAPARIN SODIUM 40 MG/0.4 ML SYRINGE SQ SCH (09:42)
[2016-05-31] MEDS: SODIUM CHLORIDE 0.9% FLUSH 5 ML FLUSH IVF SCH ×2 (09:43→21:40)
[2016-05-31] MEDS: HYDROCHLOROTHIAZIDE 25 MG TAB PO SCH (09:43)
[2016-06-01] VITALS (7 sets, daily range): BP systolic 112–119; BP diastolic 73–82; PULSE 88–99; RESP 18–20; TEMP 95–99; O2SAT 97–99
[2016-06-01] MEDS: hydrALAZINE HCL 25 MG TAB TUBE SCH ×3 (05:40→20:40)
[2016-06-01] MEDS: LABETALOL HCL 300 MG TAB PO SCH ×3 (05:59→20:40)
[2016-06-01] MEDS: HYDROCHLOROTHIAZIDE 25 MG TAB PO SCH (09:00)
[2016-06-01] MEDS: ENOXAPARIN SODIUM 40 MG/0.4 ML SYRINGE SQ SCH (09:07)
[2016-06-01] MEDS: FAMOTIDINE 20 MG TAB PO SCH ×2 (09:07→20:40)
[2016-06-01] MEDS: SODIUM CHLORIDE 0.9% FLUSH 5 ML FLUSH IVF SCH ×2 (09:08→20:40)
--- NOTE | 2016-06-01 10:12 | HHI.NSPN ---
History Interval History Stable and improving, waxing alertness Review of Systems General: Negative for: fever, chills, insomnia Respiratory: Negative for: shortness of breath, cough, sputum Cardiovascular: Negative for: chest pain, palpitations, orthopnea Gastrointestinal: Negative for: nausea, vomitting, diarrhea, constipation Exam Results Vital Signs Date Time Temp Pulse Resp B/P Pulse Ox O2 Delivery O2 Flow Rate FiO2 06/01/16 08:55 100 T-Piece 28 06/01/16 08:33 95.0 89 20 112/76 05/30/16 19:30 5.00 Intake and Output 05/31/16 05/31/16 06/01/16 08:00 16:00 00:00 Intake Total 0 ml Balance 0 ml Physical Examination Eyes open to stimulation. Tracks. Pupils midposition and reactive to light. Tongue edema is stable. Tongue hangs out of mouth appears well perfused covered in a wet dressing. Bite block in place. Seems to grasp left hand to command, flexes the lower extremities bilaterally left better than right Wounds are healing well, yaneth removed today Sustained clonus bilaterally Medical Decision Making Impression and Plan Stable neurologically and improve alertness. Total Minutes: 10 Kolby Morrsi Jun 01, 2016 10:12
[2016-06-01] MEDS: CHLORHEXIDINE GLUCONATE 2 % 1 PACK (2 CLOTHS) TOP SCH (20:40)
[2016-06-01] MEDS: ACETAMINOPHEN/HYDROcodone 325 MG/5 MG TAB PO PRN (20:41)
[2016-06-02] VITALS (8 sets, daily range): BP systolic 110–141; BP diastolic 72–92; PULSE 80–85; RESP 16–20; TEMP 97.1–98.2; O2SAT 94–99
[2016-06-02] MEDS: hydrALAZINE HCL 25 MG TAB TUBE SCH ×3 (05:57→21:16)
[2016-06-02] MEDS: LABETALOL HCL 300 MG TAB PO SCH ×3 (05:57→21:16)
[2016-06-02] MEDS: ACETAMINOPHEN/HYDROcodone 325 MG/5 MG TAB PO PRN (05:58)
[2016-06-02] MEDS: SODIUM CHLORIDE 0.9% FLUSH 5 ML FLUSH IVF SCH ×2 (09:00→21:16)
[2016-06-02] MEDS: HYDROCHLOROTHIAZIDE 25 MG TAB PO SCH (09:00)
[2016-06-02] MEDS: ENOXAPARIN SODIUM 40 MG/0.4 ML SYRINGE SQ SCH (09:00)
[2016-06-02] MEDS: FAMOTIDINE 20 MG TAB PO SCH ×2 (10:27→21:16)
--- NOTE | 2016-06-02 23:58 | HHI.NSPN ---
History Interval History 04/12/16: Patient had an aneurysm coiled 04/11/2016, intubated and sedated, ICP stable overnight 04/29/2016: Tracheostomy and PEG placement Exam Results Vital Signs Date Time Temp Pulse Resp B/P Pulse Ox O2 Delivery O2 Flow Rate FiO2 06/02/16 21:30 98 T-piece 6.00 21 06/02/16 20:00 98.0 83 20 141/92 Intake and Output 06/01/16 06/01/16 06/02/16 08:00 16:00 00:00 Intake Total 575 ml 0 ml Balance 575 ml 0 ml Physical Examination Eyes open to stimulation. Tracks to left greater than right. Pupils midposition and reactive to light. Tongue edema is stable. Tongue hangs out of mouth appears well perfused covered in a wet dressing. Bite block in place. Moderate left upper extremity flexion and grasp-not to command Medical Decision Making Impression and Plan Impression: 1. Neurologic exam stable improved following endovascular coiling of ruptured cerebral aneurysm with subsequent left decompressive craniotomy Plan: Continuing tube feedings for nutrition Wound care nurse evaluation for lumbosacral skin breakdown. Continuing decubitus precautions Tracheostomy care Continuing therapy Case management following Bite-block in place for tongue laceration-edema improving Total Minutes: 10 Sherwin Meléndez MD Jun 02, 2016 23:58 Case management following Bite-block in place for tongue laceration-edema improving Total Minutes: 10 Sherwin Meléndez MD Jun 02, 2016 23:58
[2016-06-03] VITALS (8 sets, daily range): BP systolic 103–139; BP diastolic 71–90; PULSE 71–84; RESP 20; TEMP 96.7–97.6; O2SAT 97–100
[2016-06-03] MEDS: CHLORHEXIDINE GLUCONATE 2 % 1 PACK (2 CLOTHS) TOP SCH (04:00)
[2016-06-03] MEDS: LABETALOL HCL 300 MG TAB PO SCH ×3 (06:07→21:08)
[2016-06-03] MEDS: hydrALAZINE HCL 25 MG TAB TUBE SCH ×3 (06:07→21:07)
[2016-06-03] MEDS: HYDROCHLOROTHIAZIDE 25 MG TAB PO SCH (08:48)
[2016-06-03] MEDS: SODIUM CHLORIDE 0.9% FLUSH 5 ML FLUSH IVF SCH ×2 (08:48→20:45)
[2016-06-03] MEDS: FAMOTIDINE 20 MG TAB PO SCH ×2 (08:48→20:44)
[2016-06-03] MEDS: ENOXAPARIN SODIUM 40 MG/0.4 ML SYRINGE SQ SCH (08:48)
--- NOTE | 2016-06-03 20:39 | HHI.NSPN ---
History Interval History 04/12/16: Patient had an aneurysm coiled 04/11/2016, intubated and sedated, ICP stable overnight 04/29/2016: Tracheostomy and PEG placement 06/03/16: Remains awake, primarily left lateral gaze. Grasp with left hand, not definitely to command. Exam Results Vital Signs Date Time Temp Pulse Resp B/P Pulse Ox O2 Delivery O2 Flow Rate FiO2 06/03/16 16:04 96.9 78 20 128/74 97 06/03/16 09:46 T-Piece 21 06/03/16 08:10 6.00 Intake and Output 06/02/16 06/02/16 06/03/16 08:00 16:00 00:00 Intake Total 575 ml Balance 575 ml Physical Examination Eyes open to voice. Tracks to left to voice. Pupils midposition and reactive to light. Tongue edema improving. Tongue hangs out of mouth appears well perfused covered in a wet dressing. Bite block in place. Right side of tongue is lacerated, left relatively intact Moderate left upper extremity flexion and grasp-not to command Medical Decision Making Impression and Plan Impression: 1. Neurologic exam stable over the past couple of weeks, following endovascular coiling of ruptured cerebral aneurysm with subsequent left decompressive craniotomy and ventriculoperitoneal shunt placement Plan: Continuing tube feedings for nutrition Wound care nurse evaluation for lumbosacral skin breakdown. Continuing decubitus precautions Tracheostomy care Continuing therapy Case management following Bite-block in place for tongue laceration-edema improving She will need discharge to rehabilitation if arrangements can be made. Total Minutes: 10 Sherwin Meléndez MD Jun 03, 2016 20:39
[2016-06-03] MEDS: ACETAMINOPHEN/HYDROcodone 325 MG/5 MG TAB PO PRN (21:18)
[2016-06-04] VITALS (8 sets, daily range): BP systolic 104–187; BP diastolic 62–89; PULSE 65–84; RESP 20–23; TEMP 96.4–97.8; O2SAT 97–100
[2016-06-04] MEDS: CHLORHEXIDINE GLUCONATE 2 % 1 PACK (2 CLOTHS) TOP SCH (04:00)
[2016-06-04] MEDS: LABETALOL HCL 300 MG TAB PO SCH ×3 (06:00→21:55)
[2016-06-04] MEDS: hydrALAZINE HCL 25 MG TAB TUBE SCH ×3 (06:00→21:55)
[2016-06-04] MEDS: HYDROCHLOROTHIAZIDE 25 MG TAB PO SCH (08:17)
[2016-06-04] MEDS: FAMOTIDINE 20 MG TAB PO SCH ×2 (08:18→21:55)
[2016-06-04] MEDS: SODIUM CHLORIDE 0.9% FLUSH 5 ML FLUSH IVF SCH ×2 (08:19→21:55)
[2016-06-04] MEDS: ENOXAPARIN SODIUM 40 MG/0.4 ML SYRINGE SQ SCH (08:19)
--- NOTE | 2016-06-04 23:57 | HHI.NSPN ---
History Interval History 04/12/16: Patient had an aneurysm coiled 04/11/2016, intubated and sedated, ICP stable overnight 04/29/2016: Tracheostomy and PEG placement 06/03/16: Remains awake, primarily left lateral gaze. Grasp with left hand, not definitely to command. Exam Results Vital Signs Date Time Temp Pulse Resp B/P Pulse Ox O2 Delivery O2 Flow Rate FiO2 06/04/16 16:00 96.7 76 20 113/64 100 06/04/16 08:21 T-piece 28 06/03/16 08:10 6.00 Intake and Output 06/03/16 06/03/16 06/04/16 08:00 16:00 00:00 Intake Total 420 ml Balance 420 ml Physical Examination Awake and relatively alert Says a few words have mostly unintelligible Follow simple commands with left upper and lower extremity Tracks to left to voice. Pupils midposition and reactive to light. Tongue edema improving. Tongue hangs out of mouth appears well perfused covered in a wet dressing. Bite block in place. Right side of tongue is lacerated, left relatively intact Moderate left upper extremity flexion and grasp-not to command Medical Decision Making Impression and Plan Impression: 1. Neurologic exam improving slowly following endovascular coiling of ruptured cerebral aneurysm with subsequent left decompressive craniotomy and ventriculoperitoneal shunt placement Plan: Continuing tube feedings for nutrition Wound care nurse evaluation for lumbosacral skin breakdown. Continuing decubitus precautions Tracheostomy care Continuing therapy Case management following Bite-block in place for tongue laceration-edema improving She will need discharge to rehabilitation if arrangements can be made. Total Minutes: 10 Sherwin Meléndez MD Jun 04, 2016 23:57
[2016-06-05] VITALS (7 sets, daily range): BP systolic 115–144; BP diastolic 77–89; PULSE 71–79; RESP 18–23; TEMP 96.2–97.7; O2SAT 98–100
[2016-06-05] MEDS: CHLORHEXIDINE GLUCONATE 2 % 1 PACK (2 CLOTHS) TOP SCH (04:00)
[2016-06-05] MEDS: hydrALAZINE HCL 25 MG TAB TUBE SCH ×3 (06:00→20:55)
[2016-06-05] MEDS: LABETALOL HCL 300 MG TAB PO SCH ×3 (06:00→20:55)
[2016-06-05] MEDS: HYDROCHLOROTHIAZIDE 25 MG TAB PO SCH (09:01)
[2016-06-05] MEDS: SODIUM CHLORIDE 0.9% FLUSH 5 ML FLUSH IVF SCH ×2 (09:01→20:56)
[2016-06-05] MEDS: FAMOTIDINE 20 MG TAB PO SCH ×2 (09:01→20:55)
[2016-06-05] MEDS: ENOXAPARIN SODIUM 40 MG/0.4 ML SYRINGE SQ SCH (09:01)
[2016-06-05] MEDS: ACETAMINOPHEN/HYDROcodone 325 MG/5 MG TAB PO PRN (20:56)
--- NOTE | 2016-06-05 23:52 | HHI.NSPN ---
History Interval History 04/12/16: Patient had an aneurysm coiled 04/11/2016, intubated and sedated, ICP stable overnight 04/29/2016: Tracheostomy and PEG placement 06/03/16: Remains awake, primarily left lateral gaze. Grasp with left hand, not definitely to command. Exam Results Vital Signs Date Time Temp Pulse Resp B/P Pulse Ox O2 Delivery O2 Flow Rate FiO2 06/05/16 21:02 97.6 75 18 136/82 100 06/05/16 20:00 T-Piece 28 Humidified 06/05/16 13:30 5.00 Intake and Output 06/04/16 06/04/16 06/05/16 08:00 16:00 00:00 Intake Total 0 ml Balance 0 ml Physical Examination Awake and relatively alert Says a few words have mostly unintelligible Follow simple commands with left upper and lower extremity Tracks to left to voice. Pupils midposition and reactive to light. Tongue edema improving. Tongue hangs out of mouth appears well perfused covered in a wet dressing. Bite block in place. Right side of tongue is lacerated, left relatively intact Moderate left upper extremity flexion and grasp-not to command Medical Decision Making Impression and Plan Impression: 1. Neurologic exam improving slowly following endovascular coiling of ruptured cerebral aneurysm with subsequent left decompressive craniotomy and ventriculoperitoneal shunt placement Plan: Continuing tube feedings for nutrition Wound care nurse evaluation for lumbosacral skin breakdown. Continuing decubitus precautions Tracheostomy care Continuing therapy Case management following Bite-block in place for tongue laceration-edema improving She will need discharge to rehabilitation if arrangements can be made. Total Minutes: 10 Sherwin Meléndez MD Jun 05, 2016 23:52
[2016-06-06] VITALS (8 sets, daily range): BP systolic 113–136; BP diastolic 63–90; PULSE 18–95; RESP 18–20; TEMP 95.4–97.7; O2SAT 94–100
[2016-06-06] MEDS: CHLORHEXIDINE GLUCONATE 2 % 1 PACK (2 CLOTHS) TOP SCH (00:49)
[2016-06-06] MEDS: LABETALOL HCL 300 MG TAB PO SCH ×3 (05:58→21:06)
[2016-06-06] MEDS: hydrALAZINE HCL 25 MG TAB TUBE SCH ×3 (05:58→21:06)
[2016-06-06] MEDS: HYDROCHLOROTHIAZIDE 25 MG TAB PO SCH (09:00)
[2016-06-06] MEDS: FAMOTIDINE 20 MG TAB PO SCH ×2 (10:20→21:06)
[2016-06-06] MEDS: SODIUM CHLORIDE 0.9% FLUSH 5 ML FLUSH IVF SCH ×2 (10:21→21:07)
[2016-06-06] MEDS: ENOXAPARIN SODIUM 40 MG/0.4 ML SYRINGE SQ SCH (10:21)
--- NOTE | 2016-06-06 19:01 | HHI.NSPN ---
History Interval History 04/12/16: Patient had an aneurysm coiled 04/11/2016, intubated and sedated, ICP stable overnight 04/29/2016: Tracheostomy and PEG placement 06/03/16: Remains awake, primarily left lateral gaze. Grasp with left hand, not definitely to command. Exam Results Vital Signs Date Time Temp Pulse Resp B/P Pulse Ox O2 Delivery O2 Flow Rate FiO2 06/06/16 16:11 97.2 79 18 116/73 97 06/06/16 13:45 T-Piece 5.00 21 Intake and Output 06/05/16 06/05/16 06/05/16 07:59 15:59 23:59 Intake Total 0 ml 1141 ml Balance 0 ml 1141 ml Physical Examination Awake and relatively alert Attempts to verbalize. Shakes her head just in no appropriately in response to simple questions Follow simple commands with left upper and lower extremity Tracks to left to voice. Pupils midposition and reactive to light. Tongue edema improving. Tongue hangs out of mouth appears well perfused covered in a wet dressing. Bite block in place. Right side of tongue is lacerated, left relatively intact Moderate left upper extremity flexion and grasp-not to command Medical Decision Making Impression and Plan Impression: 1. Neurologic exam improving slowly following endovascular coiling of ruptured cerebral aneurysm with subsequent left decompressive craniotomy and ventriculoperitoneal shunt placement Plan: Continuing tube feedings for nutrition Wound care nurse evaluation for lumbosacral skin breakdown. Continuing decubitus precautions Tracheostomy care Continuing therapy Case management following Bite-block in place for tongue laceration-edema improving She will need discharge to rehabilitation if arrangements can be made. Total Minutes: 10 Sherwin Meléndez MD Jun 06, 2016 19:01
[2016-06-06] MEDS: ACETAMINOPHEN/HYDROcodone 325 MG/5 MG TAB PO PRN (21:07)
[2016-06-07] VITALS (7 sets, daily range): BP systolic 118–146; BP diastolic 72–81; PULSE 73–91; RESP 20; TEMP 96.2–98.6; O2SAT 98–100
[2016-06-07] MEDS: CHLORHEXIDINE GLUCONATE 2 % 1 PACK (2 CLOTHS) TOP SCH (02:14)
[2016-06-07] MEDS: hydrALAZINE HCL 25 MG TAB TUBE SCH ×3 (05:58→20:55)
[2016-06-07] MEDS: LABETALOL HCL 300 MG TAB PO SCH ×3 (05:58→20:55)
[2016-06-07] MEDS: HYDROCHLOROTHIAZIDE 25 MG TAB PO SCH (09:00)
[2016-06-07] MEDS: ACETAMINOPHEN/HYDROcodone 325 MG/5 MG TAB PO PRN (10:26)
[2016-06-07] MEDS: FAMOTIDINE 20 MG TAB PO SCH ×2 (10:27→20:55)
[2016-06-07] MEDS: ENOXAPARIN SODIUM 40 MG/0.4 ML SYRINGE SQ SCH (10:27)
[2016-06-07] MEDS: SODIUM CHLORIDE 0.9% FLUSH 5 ML FLUSH IVF SCH ×2 (21:00→21:01)
--- NOTE | 2016-06-07 23:26 | HHI.NSPN ---
History Chief Complaint: nonverbal Interval History 04/12/16: Patient had an aneurysm coiled 04/11/2016, intubated and sedated, ICP stable overnight 04/29/2016: Tracheostomy and PEG placement 06/03/16: Remains awake, primarily left lateral gaze. Grasp with left hand, not definitely to command. Exam Results Vital Signs Date Time Temp Pulse Resp B/P Pulse Ox O2 Delivery O2 Flow Rate FiO2 06/07/16 16:00 97.7 81 20 121/72 99 06/07/16 12:36 T-piece 28 06/06/16 13:45 5.00 Intake and Output 06/06/16 06/06/16 06/07/16 08:00 16:00 00:00 Intake Total 612 ml 1136 ml Balance 612 ml 1136 ml Physical Examination Awake and relatively alert Attempts to verbalize. Shakes her head just in no appropriately in response to simple questions Follow simple commands with left upper and lower extremity Tracks to left to voice. Pupils midposition and reactive to light. Tongue edema improving. Tongue hangs out of mouth appears well perfused covered in a wet dressing. Bite block in place. Right side of tongue is lacerated, left relatively intact Moderate left upper extremity flexion and grasp-not to command Medical Decision Making Impression and Plan Impression: 1. Neurologic exam improving slowly following endovascular coiling of ruptured cerebral aneurysm with subsequent left decompressive craniotomy and ventriculoperitoneal shunt placement Plan: Continuing tube feedings for nutrition Wound care nurse evaluation for lumbosacral skin breakdown. Continuing decubitus precautions Tracheostomy care Continuing therapy Case management following Bite-block in place for tongue laceration-edema improving She will need discharge to rehabilitation if arrangements can be made. Discussed with the patient's brother who is at bedside today. Total Minutes: 10 Sherwin Meléndez MD Jun 07, 2016 23:26
[2016-06-08] VITALS (9 sets, daily range): BP systolic 97–137; BP diastolic 69–82; PULSE 70–84; RESP 18–20; TEMP 97.2–98; O2SAT 98–100
[2016-06-08] MEDS: CHLORHEXIDINE GLUCONATE 2 % 1 PACK (2 CLOTHS) TOP SCH (04:00)
[2016-06-08] MEDS: LABETALOL HCL 300 MG TAB PO SCH ×3 (05:23→21:17)
[2016-06-08] MEDS: ACETAMINOPHEN/HYDROcodone 325 MG/5 MG TAB PO PRN ×3 (05:24→21:26)
[2016-06-08] MEDS: hydrALAZINE HCL 25 MG TAB TUBE SCH ×3 (05:30→21:25)
[2016-06-08] MEDS: SODIUM CHLORIDE 0.9% FLUSH 5 ML FLUSH IVF SCH (09:00)
[2016-06-08] MEDS: ENOXAPARIN SODIUM 40 MG/0.4 ML SYRINGE SQ SCH (10:50)
[2016-06-08] MEDS: HYDROCHLOROTHIAZIDE 25 MG TAB PO SCH (10:54)
[2016-06-08] MEDS: FAMOTIDINE 20 MG TAB PO SCH ×2 (10:54→21:17)
--- NOTE | 2016-06-08 21:45 | HHI.NSPN ---
History Chief Complaint: nonverbal Interval History 04/12/16: Patient had an aneurysm coiled 04/11/2016, intubated and sedated, ICP stable overnight 04/29/2016: Tracheostomy and PEG placement 06/03/16: Remains awake, primarily left lateral gaze. Grasp with left hand, not definitely to command. Exam Results Vital Signs Date Time Temp Pulse Resp B/P Pulse Ox O2 Delivery O2 Flow Rate FiO2 06/08/16 16:00 97.2 75 20 124/82 100 06/08/16 09:13 T-piece 5.00 28 Intake and Output 06/07/16 06/07/16 06/07/16 07:59 15:59 23:59 Intake Total 588 ml Balance 588 ml Physical Examination Awake and relatively alert Attempts to verbalize. Shakes her head just in no appropriately in response to simple questions Follow simple commands with left upper and lower extremity Tracks to left to voice. Pupils midposition and reactive to light. Tongue edema improving. Tongue hangs out of mouth appears well perfused covered in a wet dressing. Bite block in place. Right side of tongue is lacerated, left relatively intact Moderate left upper extremity flexion and grasp-not to command Medical Decision Making Impression and Plan Impression: 1. Neurologic exam improving slowly following endovascular coiling of ruptured cerebral aneurysm with subsequent left decompressive craniotomy and ventriculoperitoneal shunt placement Plan: Continuing tube feedings for nutrition Wound care nurse evaluation for lumbosacral skin breakdown. Continuing decubitus precautions Tracheostomy care Continuing therapy Case management following Bite-block in place for tongue laceration-edema improving She will need discharge to rehabilitation if arrangements can be made. Discussed with the patient's brother who is at bedside today. Total Minutes: 10 Sherwin Meléndez MD Jun 08, 2016 21:45
[2016-06-09] VITALS (8 sets, daily range): BP systolic 96–152; BP diastolic 66–89; PULSE 72–101; RESP 20; TEMP 96–98.2; O2SAT 95–100
[2016-06-09] MEDS: CHLORHEXIDINE GLUCONATE 2 % 1 PACK (2 CLOTHS) TOP SCH (04:00)
[2016-06-09] MEDS: hydrALAZINE HCL 25 MG TAB TUBE SCH ×3 (04:52→22:10)
[2016-06-09] MEDS: LABETALOL HCL 300 MG TAB PO SCH ×3 (04:54→22:09)
[2016-06-09] MEDS: FAMOTIDINE 20 MG TAB PO SCH ×2 (08:13→22:09)
[2016-06-09] MEDS: ENOXAPARIN SODIUM 40 MG/0.4 ML SYRINGE SQ SCH (08:13)
[2016-06-09] MEDS: HYDROCHLOROTHIAZIDE 25 MG TAB PO SCH (08:14)
[2016-06-09] MEDS: ACETAMINOPHEN/HYDROcodone 325 MG/5 MG TAB PO PRN ×2 (08:15→22:10)
[2016-06-09] MEDS: SODIUM CHLORIDE 0.9% FLUSH 5 ML FLUSH IVF SCH ×2 (09:00→22:11)
--- NOTE | 2016-06-09 20:44 | HHI.NSPN ---
History Chief Complaint: nonverbal Interval History 04/12/16: Patient had an aneurysm coiled 04/11/2016, intubated and sedated, ICP stable overnight 04/29/2016: Tracheostomy and PEG placement 06/03/16: Remains awake, primarily left lateral gaze. Grasp with left hand, not definitely to command. Exam Results Vital Signs Date Time Temp Pulse Resp B/P Pulse Ox O2 Delivery O2 Flow Rate FiO2 06/09/16 16:00 98.2 75 20 123/75 98 06/09/16 13:07 T-Piece 06/09/16 08:13 6.00 06/08/16 20:50 28 Physical Examination Awake and relatively alert Localizes. Unintelligible. Shakes her head just in no appropriately in response to simple questions Follow simple commands with left upper and lower extremity Tracks to left to voice. Pupils midposition and reactive to light. Tongue edema improving. Tongue hangs out of mouth appears well perfused covered in a wet dressing. Bite block in place. Right side of tongue is lacerated, left relatively intact Moderate left upper extremity flexion and grasp-not to command Medical Decision Making Impression and Plan Impression: 1. Neurologic exam improving slowly following endovascular coiling of ruptured cerebral aneurysm with subsequent left decompressive craniotomy and ventriculoperitoneal shunt placement Plan: Continuing tube feedings for nutrition Wound care nurse evaluation for lumbosacral skin breakdown. Continuing decubitus precautions Tracheostomy care Continuing therapy Case management following Bite-block in place for tongue laceration-edema improving She will need discharge to rehabilitation if arrangements can be made. Discussed with the patient's brother who is at bedside today. Total Minutes: 10 Sherwin Meléndez MD Jun 09, 2016 20:44
[2016-06-10] VITALS (8 sets, daily range): BP systolic 114–140; BP diastolic 71–89; PULSE 81–98; RESP 18–22; TEMP 97.2–98.4; O2SAT 96–100
[2016-06-10] MEDS: CHLORHEXIDINE GLUCONATE 2 % 1 PACK (2 CLOTHS) TOP SCH (04:00)
[2016-06-10] MEDS: hydrALAZINE HCL 25 MG TAB TUBE SCH ×3 (05:35→21:30)
[2016-06-10] MEDS: LABETALOL HCL 300 MG TAB PO SCH ×3 (05:35→21:30)
[2016-06-10] MEDS: ENOXAPARIN SODIUM 40 MG/0.4 ML SYRINGE SQ SCH (08:20)
[2016-06-10] MEDS: FAMOTIDINE 20 MG TAB PO SCH ×2 (08:20→21:30)
[2016-06-10] MEDS: HYDROCHLOROTHIAZIDE 25 MG TAB PO SCH (08:20)
[2016-06-10] MEDS: SODIUM CHLORIDE 0.9% FLUSH 5 ML FLUSH IVF SCH ×2 (08:20→21:00)
--- NOTE | 2016-06-10 14:31 | HHI.NSPN ---
History Chief Complaint: nonverbal Interval History 04/12/16: Patient had an aneurysm coiled 04/11/2016, intubated and sedated, ICP stable overnight 04/29/2016: Tracheostomy and PEG placement 06/03/16: Remains awake, primarily left lateral gaze. Grasp with left hand, not definitely to command. Exam Results Vital Signs Date Time Temp Pulse Resp B/P Pulse Ox O2 Delivery O2 Flow Rate FiO2 06/10/16 12:00 98.2 96 22 120/81 99 06/10/16 09:29 T-piece 21 06/09/16 08:13 6.00 Physical Examination Awake and relatively alert Localizes. Unintelligible. Shakes her head just in no appropriately in response to simple questions Follow simple commands with left upper and lower extremity Tracks to left to voice. Pupils midposition and reactive to light. Tongue edema improving. Tongue hangs out of mouth appears well perfused covered in a wet dressing. Bite block in place. Right side of tongue is lacerated, left relatively intact Moderate left upper extremity flexion and grasp-not to command Medical Decision Making Impression and Plan Impression: 1. Neurologic exam improving slowly following endovascular coiling of ruptured cerebral aneurysm with subsequent left decompressive craniotomy and ventriculoperitoneal shunt placement Plan: Continuing tube feedings for nutrition Wound care nurse evaluation for lumbosacral skin breakdown. Continuing decubitus precautions Tracheostomy care Continuing therapy Case management following Bite-block in place for tongue laceration-edema improving She will need discharge to rehabilitation if arrangements can be made. Discussed with the patient's brother who is at bedside today. Total Minutes: 10 Sherwin Meléndez MD Jun 10, 2016 14:30
[2016-06-10] MEDS: ACETAMINOPHEN/HYDROcodone 325 MG/5 MG TAB PO PRN (21:30)
[2016-06-11] MEDS: CHLORHEXIDINE GLUCONATE 2 % 1 PACK (2 CLOTHS) TOP SCH (04:00)
[2016-06-11 05:34] VITALS: BP 117/84; PULSE 91; RESP 20; TEMP 96.7; O2SAT 97
[2016-06-11] MEDS: hydrALAZINE HCL 25 MG TAB TUBE SCH ×2 (06:00→12:47)
[2016-06-11] MEDS: LABETALOL HCL 300 MG TAB PO SCH ×2 (06:43→12:47)
[2016-06-11 08:17] VITALS: BP 115/70; PULSE 71; RESP 16; TEMP 98.4; O2SAT 97
[2016-06-11] MEDS: ENOXAPARIN SODIUM 40 MG/0.4 ML SYRINGE SQ SCH (08:29)
[2016-06-11] MEDS: FAMOTIDINE 20 MG TAB PO SCH (08:29)
[2016-06-11] MEDS: HYDROCHLOROTHIAZIDE 25 MG TAB PO SCH (08:29)
[2016-06-11] MEDS: SODIUM CHLORIDE 0.9% FLUSH 5 ML FLUSH IVF SCH (08:29)
[2016-06-11 10:00] VITALS: O2SAT 99
[2016-06-11 12:32] VITALS: BP 143/80; PULSE 107; RESP 18; TEMP 98.7; O2SAT 89
[2016-06-11 16:50] VITALS: BP 148/80; PULSE 108; RESP 20; TEMP 95; O2SAT 95
[2016-06-11 20:00] VITALS: BP 136/92; PULSE 83; RESP 20; TEMP 97.6; O2SAT 97
--- NOTE | 2016-06-11 20:26 | HHI.NSPN ---
History Chief Complaint: nonverbal Interval History 04/12/16: Patient had an aneurysm coiled 04/11/2016, intubated and sedated, ICP stable overnight 04/29/2016: Tracheostomy and PEG placement 06/03/16: Remains awake, primarily left lateral gaze. Grasp with left hand, not definitely to command. Exam Results Vital Signs Date Time Temp Pulse Resp B/P Pulse Ox O2 Delivery O2 Flow Rate FiO2 06/11/16 18:18 T-piece 6.00 21 06/11/16 16:50 95.0 108 20 148/80 95 Physical Examination Awake and relatively alert Localizes. Tries to verbalize Shakes her head just in no appropriately in response to simple questions Follow simple commands with left upper and lower extremity Tracks to left to voice. Pupils midposition and reactive to light. Tongue hangs out of mouth appears well perfused . Bite block in place. Right side of tongue is lacerated, left relatively intact No significant extremity edema Medical Decision Making Impression and Plan Impression: 1. Neurologic exam stable in the past week following endovascular coiling of ruptured cerebral aneurysm with subsequent left decompressive craniotomy and ventriculoperitoneal shunt placement Plan: Continuing tube feedings for nutrition Wound care nurse evaluation for lumbosacral skin breakdown. Continuing decubitus precautions Tracheostomy care Continuing therapy Case management following Bite-block in place for tongue laceration-edema improving She will need discharge to rehabilitation if arrangements can be made. Total Minutes: 10 Sherwin Meléndez MD Jun 11, 2016 20:26
[2016-06-12] VITALS (8 sets, daily range): BP systolic 106–143; BP diastolic 65–88; PULSE 82–95; RESP 16–24; TEMP 96.8–98.5; O2SAT 95–99
[2016-06-12] MEDS: FAMOTIDINE 20 MG TAB PO SCH ×3 (00:58→21:00)
[2016-06-12] MEDS: LABETALOL HCL 300 MG TAB PO SCH ×4 (00:58→22:00)
[2016-06-12] MEDS: hydrALAZINE HCL 25 MG TAB TUBE SCH ×4 (00:58→22:00)
[2016-06-12] MEDS: SODIUM CHLORIDE 0.9% FLUSH 5 ML FLUSH IVF SCH ×3 (01:00→21:00)
[2016-06-12] MEDS: ACETAMINOPHEN/HYDROcodone 325 MG/5 MG TAB PO PRN (01:12)
[2016-06-12] MEDS: CHLORHEXIDINE GLUCONATE 2 % 1 PACK (2 CLOTHS) TOP SCH (01:28)
[2016-06-12] MEDS: HYDROCHLOROTHIAZIDE 25 MG TAB PO SCH (10:29)
[2016-06-12] MEDS: ENOXAPARIN SODIUM 40 MG/0.4 ML SYRINGE SQ SCH (10:32)
[2016-06-13] VITALS (7 sets, daily range): BP systolic 109–133; BP diastolic 61–91; PULSE 76–85; RESP 18; TEMP 97–99.2; O2SAT 97–100
[2016-06-13] MEDS: CHLORHEXIDINE GLUCONATE 2 % 1 PACK (2 CLOTHS) TOP SCH (04:00)
[2016-06-13] MEDS: hydrALAZINE HCL 25 MG TAB TUBE SCH ×3 (06:00→21:46)
[2016-06-13] MEDS: LABETALOL HCL 300 MG TAB PO SCH ×3 (06:00→21:46)
[2016-06-13] MEDS: SODIUM CHLORIDE 0.9% FLUSH 5 ML FLUSH IVF SCH ×2 (09:00→21:00)
[2016-06-13] MEDS: ENOXAPARIN SODIUM 40 MG/0.4 ML SYRINGE SQ SCH (09:44)
[2016-06-13] MEDS: FAMOTIDINE 20 MG TAB PO SCH ×2 (09:44→21:46)
[2016-06-13] MEDS: HYDROCHLOROTHIAZIDE 25 MG TAB PO SCH (09:44)
--- NOTE | 2016-06-13 21:00 | HHI.NSPN ---
History Chief Complaint: nonverbal Interval History 04/12/16: Patient had an aneurysm coiled 04/11/2016, intubated and sedated, ICP stable overnight 04/29/2016: Tracheostomy and PEG placement 06/03/16: Remains awake, primarily left lateral gaze. Grasp with left hand, not definitely to command. Exam Results Vital Signs Date Time Temp Pulse Resp B/P Pulse Ox O2 Delivery O2 Flow Rate FiO2 06/13/16 16:00 97.7 78 18 111/76 100 06/13/16 09:28 Trach Collar T-Piece 06/13/16 08:56 4.00 21 Intake and Output 06/12/16 06/12/16 06/13/16 08:00 16:00 00:00 Intake Total 583 ml Balance 583 ml Physical Examination Awake and relatively alert Localizes. Tries to verbalize Shakes her head just in no appropriately in response to simple questions Follow simple commands with left upper and lower extremity Tracks to left to voice. Pupils midposition and reactive to light. Tongue hangs out of mouth appears well perfused . Bite block in place. Right side of tongue is lacerated, left relatively intact No significant extremity edema Medical Decision Making Impression and Plan Impression: 1. Neurologic exam stable in the past week following endovascular coiling of ruptured cerebral aneurysm with subsequent left decompressive craniotomy and ventriculoperitoneal shunt placement Plan: Continuing tube feedings for nutrition Wound care nurse evaluation for lumbosacral skin breakdown. Continuing decubitus precautions Tracheostomy care Continuing therapy Case management following Bite-block in place for tongue laceration-edema improving She will need discharge to rehabilitation if arrangements can be made. Total Minutes: 10 Sherwin Meléndez MD Jun 13, 2016 21:00
[2016-06-14] VITALS (7 sets, daily range): BP systolic 123–148; BP diastolic 65–86; PULSE 81–86; RESP 16–18; TEMP 97.2–98.7; O2SAT 95–100
[2016-06-14] MEDS: CHLORHEXIDINE GLUCONATE 2 % 1 PACK (2 CLOTHS) TOP SCH (02:05)
[2016-06-14] MEDS: LABETALOL HCL 300 MG TAB PO SCH ×3 (06:12→22:38)
[2016-06-14] MEDS: hydrALAZINE HCL 25 MG TAB TUBE SCH ×3 (06:12→22:38)
[2016-06-14] MEDS: SODIUM CHLORIDE 0.9% FLUSH 5 ML FLUSH IVF SCH ×2 (09:00→21:00)
[2016-06-14] MEDS: ENOXAPARIN SODIUM 40 MG/0.4 ML SYRINGE SQ SCH (10:34)
[2016-06-14] MEDS: FAMOTIDINE 20 MG TAB PO SCH ×2 (10:34→22:38)
[2016-06-14] MEDS: HYDROCHLOROTHIAZIDE 25 MG TAB PO SCH (10:34)
--- NOTE | 2016-06-14 17:32 | HHI.NSPN ---
History Chief Complaint: nonverbal Interval History 04/12/16: Patient had an aneurysm coiled 04/11/2016, intubated and sedated, ICP stable overnight 04/29/2016: Tracheostomy and PEG placement 06/03/16: Remains awake, primarily left lateral gaze. Grasp with left hand, not definitely to command. Exam Results Vital Signs Date Time Temp Pulse Resp B/P Pulse Ox O2 Delivery O2 Flow Rate FiO2 06/14/16 16:00 98.0 84 16 125/84 99 06/14/16 08:40 T-piece 5.00 21 Intake and Output 06/13/16 06/13/16 06/14/16 08:00 16:00 00:00 Output Total 1 ml Balance -1 ml Physical Examination Respirations clear to auscultation Cardiac exam reveals regular rhythm without murmur Abdomen soft and nontender. Positive bowel sounds. Feeding tube in place Awake and relatively alert Localizes. Tries to verbalize Shakes her head yes and no appropriately in response to simple questions Follow simple commands with left upper and lower extremity Tracks to left to voice with minimally disconjugate gaze Pupils midposition and reactive to light. Tongue hangs out of mouth appears well perfused . Bite block in place. Right side of tongue is lacerated, left relatively intact No significant extremity edema Medical Decision Making Impression and Plan Impression: 1. Neurologic exam stable in the past week following endovascular coiling of ruptured cerebral aneurysm with subsequent left decompressive craniotomy and ventriculoperitoneal shunt placement Plan: Recheck routine labs Continuing tube feedings for nutrition Wound care nurse evaluation for lumbosacral skin breakdown. Continuing decubitus precautions Tracheostomy care Continuing therapy Case management following Bite-block in place for tongue laceration-edema improving She will need discharge to rehabilitation if arrangements can be made. Total Minutes: 10 Sherwin Meléndez MD Jun 14, 2016 17:32
[2016-06-14 21:03] LABS: AUTOMATED NEUTROPHIL # 2.8 TH/MM3 (1.8-7.7); BASOPHIL % 0.5 % (0.0-2.0); EOSINOPHIL # 0.2 TH/MM3 (0-0.4); EOSINOPHIL % 3.1 % (0.0-4.0); HEMATOCRIT 34.9 % (35.0-46.0); HEMO FLAGS DIFF FINAL; LYMPH % 41.5 % (9.0-44.0); LYMPHOCYTE # 2.6 TH/MM3 (1.0-4.8); MEAN CORPUSCULAR HEMOGLOBIN 25.6 PG (27.0-34.0); MEAN CORPUSCULAR HGB CONC 32.4 % (32.0-36.0); MONO % 10.1 % (0.0-8.0); NEUT % 44.8 % (16.0-70.0); PLATELET COUNT 316 TH/MM3 (150-450); RED BLOOD COUNT 4.41 MIL/MM3 (4.00-5.30); RED CELL DISTRIBUTION WIDTH 18.4 % (11.6-17.2); WHITE BLOOD COUNT 6.3 TH/MM3 (4.0-11.0)
[2016-06-14 21:13] LABS: ANION GAP 11 MEQ/L (5-15); AST (GOT) 52 U/L (15-37); BICARBONATE 26.3 MEQ/L (21.0-32.0); BLOOD UREA NITROGEN 15 MG/DL (7-18); CHLORIDE 97 MEQ/L (98-107); GLOMERULAR FILTRATION RATE 134 ML/MIN (>89); POTASSIUM 3.8 MEQ/L (3.5-5.1); SODIUM (NA) 134 MEQ/L (136-145)
[2016-06-14 21:16] LABS: ALKALINE PHOSPHATASE 128 U/L (45-117); ALT (GPT) 92 U/L (10-53); TOTAL BILIRUBIN ADULT 0.4 MG/DL (0.2-1.0)
[2016-06-14] MEDS: ACETAMINOPHEN/HYDROcodone 325 MG/5 MG TAB PO PRN (22:39)
[2016-06-15] VITALS (8 sets, daily range): BP systolic 98–139; BP diastolic 61–82; PULSE 74–87; RESP 16–18; TEMP 95.7–98.3; O2SAT 96–100
[2016-06-15] MEDS: CHLORHEXIDINE GLUCONATE 2 % 1 PACK (2 CLOTHS) TOP SCH (04:00)
[2016-06-15] MEDS: hydrALAZINE HCL 25 MG TAB TUBE SCH ×3 (06:00→22:51)
[2016-06-15] MEDS: LABETALOL HCL 300 MG TAB PO SCH ×3 (06:13→22:51)
[2016-06-15] MEDS: HYDROCHLOROTHIAZIDE 25 MG TAB PO SCH (08:43)
[2016-06-15] MEDS: SODIUM CHLORIDE 0.9% FLUSH 5 ML FLUSH IVF SCH ×2 (08:43→21:00)
[2016-06-15] MEDS: ENOXAPARIN SODIUM 40 MG/0.4 ML SYRINGE SQ SCH (08:44)
[2016-06-15] MEDS: FAMOTIDINE 20 MG TAB PO SCH ×2 (08:44→22:51)
--- NOTE | 2016-06-15 20:02 | HHI.NSPN ---
History Chief Complaint: nonverbal Interval History 04/12/16: Patient had an aneurysm coiled 04/11/2016, intubated and sedated, ICP stable overnight 04/29/2016: Tracheostomy and PEG placement 06/03/16: Remains awake, primarily left lateral gaze. Grasp with left hand, not definitely to command. Exam Results Vital Signs Date Time Temp Pulse Resp B/P Pulse Ox O2 Delivery O2 Flow Rate FiO2 06/15/16 16:20 97.7 85 18 107/70 100 06/15/16 13:50 T-piece 21 06/14/16 23:00 6.00 Physical Examination Respirations clear to auscultation Cardiac exam reveals regular rhythm without murmur Abdomen soft and nontender. Positive bowel sounds. Feeding tube in place Awake and relatively alert Localizes. Tries to verbalize Shakes her head yes and no appropriately in response to simple questions Follow simple commands with left upper and lower extremity Tracks to left to voice with minimally disconjugate gaze Pupils midposition and reactive to light. Her tongue is mostly back inside her mouth without bite block in place. No significant extremity edema Medical Decision Making Impression and Plan Impression: 1. Neurologic exam stable in the past week following endovascular coiling of ruptured cerebral aneurysm with subsequent left decompressive craniotomy and ventriculoperitoneal shunt placement Plan: Recheck routine labs Continuing tube feedings for nutrition Wound care nurse evaluation for lumbosacral skin breakdown. Continuing decubitus precautions Tracheostomy care Continuing therapy Case management following Bite-block in place for tongue laceration-edema improving She will need discharge to rehabilitation if arrangements can be made. Total Minutes: 10 Sherwin Meléndez MD Jun 15, 2016 20:02
[2016-06-16] VITALS (9 sets, daily range): BP systolic 115–139; BP diastolic 72–87; PULSE 76–80; RESP 18–20; TEMP 96.4–97.2; O2SAT 95–100
[2016-06-16] MEDS: ACETAMINOPHEN/HYDROcodone 325 MG/5 MG TAB PO PRN ×2 (01:32→14:58)
[2016-06-16] MEDS: CHLORHEXIDINE GLUCONATE 2 % 1 PACK (2 CLOTHS) TOP SCH (04:00)
[2016-06-16] MEDS: LABETALOL HCL 300 MG TAB PO SCH ×3 (05:50→22:56)
[2016-06-16] MEDS: hydrALAZINE HCL 25 MG TAB TUBE SCH ×3 (05:53→22:56)
[2016-06-16] MEDS: HYDROCHLOROTHIAZIDE 25 MG TAB PO SCH (08:33)
[2016-06-16] MEDS: SODIUM CHLORIDE 0.9% FLUSH 5 ML FLUSH IVF SCH ×2 (08:34→21:00)
[2016-06-16] MEDS: FAMOTIDINE 20 MG TAB PO SCH ×2 (09:44→22:56)
[2016-06-16] MEDS: ENOXAPARIN SODIUM 40 MG/0.4 ML SYRINGE SQ SCH (09:44)
--- NOTE | 2016-06-16 23:52 | HHI.NSPN ---
History Chief Complaint: nonverbal Interval History 04/12/16: Patient had an aneurysm coiled 04/11/2016, intubated and sedated, ICP stable overnight 04/29/2016: Tracheostomy and PEG placement 06/03/16: Remains awake, primarily left lateral gaze. Grasp with left hand, not definitely to command. Exam Results Vital Signs Date Time Temp Pulse Resp B/P Pulse Ox O2 Delivery O2 Flow Rate FiO2 06/16/16 20:00 97.0 77 18 131/76 96 06/16/16 19:54 T-piece 6.00 28 Physical Examination Respirations clear to auscultation Cardiac exam reveals regular rhythm without murmur Abdomen soft and nontender. Positive bowel sounds. Feeding tube in place Awake and relatively alert Localizes. Tries to verbalize Shakes her head yes and no appropriately in response to simple questions Follow simple commands with left upper and lower extremity Tracks to left to voice with minimally disconjugate gaze Pupils midposition and reactive to light. Her tongue is mostly back inside her mouth without bite block in place. No significant extremity edema Medical Decision Making Impression and Plan Impression: 1. Neurologic exam stable in the past week following endovascular coiling of ruptured cerebral aneurysm with subsequent left decompressive craniotomy and ventriculoperitoneal shunt placement Plan: Recheck routine labs Continuing tube feedings for nutrition Wound care nurse evaluation for lumbosacral skin breakdown. Continuing decubitus precautions Tracheostomy care Continuing therapy Case management following Bite-block in place for tongue laceration-edema improving She will need discharge to rehabilitation if arrangements can be made. Total Minutes: 10 Sherwin Meléndez MD Jun 16, 2016 23:52
[2016-06-17] VITALS (8 sets, daily range): BP systolic 109–145; BP diastolic 71–100; PULSE 70–75; RESP 18–20; TEMP 95.4–98; O2SAT 95–100
[2016-06-17] MEDS: CHLORHEXIDINE GLUCONATE 2 % 1 PACK (2 CLOTHS) TOP SCH (04:00)
[2016-06-17] MEDS: ACETAMINOPHEN/HYDROcodone 325 MG/5 MG TAB PO PRN ×2 (04:03→23:15)
[2016-06-17] MEDS: hydrALAZINE HCL 25 MG TAB TUBE SCH ×3 (06:00→21:28)
[2016-06-17] MEDS: LABETALOL HCL 300 MG TAB PO SCH ×3 (06:39→21:28)
[2016-06-17] MEDS: ENOXAPARIN SODIUM 40 MG/0.4 ML SYRINGE SQ SCH (08:38)
[2016-06-17] MEDS: SODIUM CHLORIDE 0.9% FLUSH 5 ML FLUSH IVF SCH ×2 (08:38→21:00)
[2016-06-17] MEDS: FAMOTIDINE 20 MG TAB PO SCH ×2 (08:38→21:28)
[2016-06-17] MEDS: HYDROCHLOROTHIAZIDE 25 MG TAB PO SCH (08:38)
--- NOTE | 2016-06-17 21:14 | HHI.NSPN ---
History Chief Complaint: nonverbal Interval History 04/12/16: Patient had an aneurysm coiled 04/11/2016, intubated and sedated, ICP stable overnight 04/29/2016: Tracheostomy and PEG placement 06/03/16: Remains awake, primarily left lateral gaze. Grasp with left hand, not definitely to command. Exam Results Vital Signs Date Time Temp Pulse Resp B/P Pulse Ox O2 Delivery O2 Flow Rate FiO2 06/17/16 19:30 95.4 71 18 145/100 95 06/17/16 10:40 T-piece 5.00 21 Physical Examination Respirations clear to auscultation Cardiac exam reveals regular rhythm without murmur Abdomen soft and nontender. Positive bowel sounds. Feeding tube in place Awake and relatively alert Localizes. Tries to verbalize Shakes her head yes and no appropriately in response to simple questions Follow simple commands with left upper and lower extremity Tracks to left to voice with minimally disconjugate gaze Pupils midposition and reactive to light. Her tongue is mostly back inside her mouth without bite block in place. No significant extremity edema Lab, Micro, Other Results Laboratory Tests Test 06/14/16 06/14/16 20:35 20:44 White Blood Count 6.3 TH/MM3 Red Blood Count 4.41 MIL/MM3 Hemoglobin 11.3 GM/DL Hematocrit 34.9 % Mean Corpuscular Volume 79.0 FL Mean Corpuscular Hemoglobin 25.6 PG Mean Corpuscular Hemoglobin 32.4 % Concent Red Cell Distribution Width 18.4 % Platelet Count 316 TH/MM3 Mean Platelet Volume 7.9 FL Neutrophils (%) (Auto) 44.8 % Lymphocytes (%) (Auto) 41.5 % Monocytes (%) (Auto) 10.1 % Eosinophils (%) (Auto) 3.1 % Basophils (%) (Auto) 0.5 % Neutrophils # (Auto) 2.8 TH/MM3 Lymphocytes # (Auto) 2.6 TH/MM3 Monocytes # (Auto) 0.6 TH/MM3 Eosinophils # (Auto) 0.2 TH/MM3 Basophils # (Auto) 0.0 TH/MM3 CBC Comment DIFF FINAL Differential Comment Sodium Level 134 MEQ/L Potassium Level 3.8 MEQ/L Chloride Level 97 MEQ/L Carbon Dioxide Level 26.3 MEQ/L Anion Gap 11 MEQ/L Blood Urea Nitrogen 15 MG/DL Creatinine 0.58 MG/DL Estimat Glomerular Filtration 134 ML/MIN Rate Random Glucose 111 MG/DL Calcium Level 9.3 MG/DL Total Bilirubin 0.4 MG/DL Aspartate Amino Transf 52 U/L (AST/SGOT) Alanine Aminotransferase 92 U/L (ALT/SGPT) Alkaline Phosphatase 128 U/L Total Protein 7.8 GM/DL Albumin 3.2 GM/DL Medical Decision Making Impression and Plan Impression: 1. Neurologic exam stable in the past week following endovascular coiling of ruptured cerebral aneurysm with subsequent left decompressive craniotomy and ventriculoperitoneal shunt placement Plan: Continuing tube feedings for nutrition Wound care nurse evaluation for lumbosacral skin breakdown. Continuing decubitus precautions Tracheostomy care Continuing therapy Case management following Bite-block in place for tongue laceration-edema improving She will need discharge to rehabilitation if arrangements can be made. Total Minutes: 10 Sherwin Meléndez MD Jun 17, 2016 21:14
[2016-06-18] VITALS (7 sets, daily range): BP systolic 120–144; BP diastolic 73–88; PULSE 66–81; RESP 18–20; TEMP 96.4–98.1; O2SAT 95–100
[2016-06-18] MEDS: CHLORHEXIDINE GLUCONATE 2 % 1 PACK (2 CLOTHS) TOP SCH (01:56)
[2016-06-18] MEDS: LABETALOL HCL 300 MG TAB PO SCH ×3 (05:55→22:22)
[2016-06-18] MEDS: hydrALAZINE HCL 25 MG TAB TUBE SCH ×3 (05:55→22:22)
[2016-06-18] MEDS: SODIUM CHLORIDE 0.9% FLUSH 5 ML FLUSH IVF SCH ×2 (09:00→21:00)
[2016-06-18] MEDS: HYDROCHLOROTHIAZIDE 25 MG TAB PO SCH (09:12)
[2016-06-18] MEDS: FAMOTIDINE 20 MG TAB PO SCH ×2 (09:12→22:22)
[2016-06-18] MEDS: ENOXAPARIN SODIUM 40 MG/0.4 ML SYRINGE SQ SCH (09:12)
--- NOTE | 2016-06-18 21:46 | HHI.NSPN ---
History Chief Complaint: nonverbal Interval History 04/12/16: Patient had an aneurysm coiled 04/11/2016, intubated and sedated, ICP stable overnight 04/29/2016: Tracheostomy and PEG placement 06/03/16: Remains awake, primarily left lateral gaze. Grasp with left hand, not definitely to command. Exam Results Vital Signs Date Time Temp Pulse Resp B/P Pulse Ox O2 Delivery O2 Flow Rate FiO2 06/18/16 17:45 T-piece 21 06/18/16 15:03 98.1 79 20 135/88 99 06/18/16 09:15 5.00 Intake and Output 06/17/16 06/17/16 06/18/16 08:00 16:00 00:00 Intake Total 150 ml Output Total 650 ml Balance -650 ml 150 ml Physical Examination Respirations clear to auscultation Cardiac exam reveals regular rhythm without murmur Abdomen soft and nontender. Positive bowel sounds. Feeding tube in place Awake and relatively alert Localizes. Tries to verbalize Shakes her head yes and no appropriately in response to simple questions Follow simple commands with left upper and lower extremity Tracks to left to voice with minimally disconjugate gaze Pupils midposition and reactive to light. Her tongue is mostly back inside her mouth without bite block in place. No significant extremity edema Medical Decision Making Impression and Plan Impression: 1. Neurologic exam stable in the past week following endovascular coiling of ruptured cerebral aneurysm with subsequent left decompressive craniotomy and ventriculoperitoneal shunt placement Plan: Continuing tube feedings for nutrition Wound care nurse evaluation for lumbosacral skin breakdown. Continuing decubitus precautions Tracheostomy care Continuing therapy Case management following Bite-block in place for tongue laceration-edema improving She will need discharge to rehabilitation if arrangements can be made. Total Minutes: 10 Sherwin Meléndez MD Jun 18, 2016 21:46
[2016-06-18] MEDS: ACETAMINOPHEN/HYDROcodone 325 MG/5 MG TAB PO PRN (22:22)
[2016-06-19] VITALS (7 sets, daily range): BP systolic 106–145; BP diastolic 72–88; PULSE 73–88; RESP 20; TEMP 96.3–98.6; O2SAT 97–100
[2016-06-19] MEDS: CHLORHEXIDINE GLUCONATE 2 % 1 PACK (2 CLOTHS) TOP SCH (02:41)
[2016-06-19] MEDS: hydrALAZINE HCL 25 MG TAB TUBE SCH ×3 (06:32→22:06)
[2016-06-19] MEDS: LABETALOL HCL 300 MG TAB PO SCH ×3 (06:32→22:00)
[2016-06-19] MEDS: SODIUM CHLORIDE 0.9% FLUSH 5 ML FLUSH IVF SCH ×2 (09:00→21:00)
[2016-06-19] MEDS: HYDROCHLOROTHIAZIDE 25 MG TAB PO SCH (09:00)
[2016-06-19] MEDS: ENOXAPARIN SODIUM 40 MG/0.4 ML SYRINGE SQ SCH (09:17)
[2016-06-19] MEDS: FAMOTIDINE 20 MG TAB PO SCH ×2 (09:17→22:07)
--- NOTE | 2016-06-19 12:20 | HHI.NSPN ---
History Chief Complaint: nonverbal Interval History Stable and improving, waxing alertness but consistently follows commands with both upper extremities Review of Systems General: Negative for: fever, chills, insomnia Respiratory: Negative for: shortness of breath, cough, sputum Gastrointestinal: Negative for: nausea, vomitting, diarrhea, constipation Exam Results Vital Signs Date Time Temp Pulse Resp B/P Pulse Ox O2 Delivery O2 Flow Rate FiO2 06/19/16 09:19 96.3 80 20 106/72 98 06/19/16 08:39 T-piece 5.00 21 Intake and Output 06/18/16 06/18/16 06/19/16 08:00 16:00 00:00 Intake Total 655 ml 1034 ml Output Total 750 ml Balance 655 ml 284 ml Physical Examination Easily arousable, follows with her eyes, non verbal when awake Incisions clean and dry Medical Decision Making Impression and Plan Stable neurologically and improve alertness. Awaiting insurance for rehab. Total Minutes: 10 Kolby Morris MD Jun 19, 2016 12:20
[2016-06-19] MEDS: ACETAMINOPHEN/HYDROcodone 325 MG/5 MG TAB PO PRN (22:06)
[2016-06-20] VITALS (9 sets, daily range): BP systolic 104–129; BP diastolic 63–95; PULSE 74–97; RESP 20; TEMP 96.7–98.4; O2SAT 96–100
[2016-06-20] MEDS: CHLORHEXIDINE GLUCONATE 2 % 1 PACK (2 CLOTHS) TOP SCH ×2 (03:12→22:21)
[2016-06-20] MEDS: LABETALOL HCL 300 MG TAB PO SCH ×3 (05:41→22:19)
[2016-06-20] MEDS: hydrALAZINE HCL 25 MG TAB TUBE SCH ×3 (05:46→22:00)
[2016-06-20] MEDS: ACETAMINOPHEN/HYDROcodone 325 MG/5 MG TAB PO PRN ×2 (08:56→22:21)
[2016-06-20] MEDS: ENOXAPARIN SODIUM 40 MG/0.4 ML SYRINGE SQ SCH (08:56)
[2016-06-20] MEDS: FAMOTIDINE 20 MG TAB PO SCH ×2 (08:56→22:19)
[2016-06-20] MEDS: HYDROCHLOROTHIAZIDE 25 MG TAB PO SCH (08:56)
[2016-06-20] MEDS: SODIUM CHLORIDE 0.9% FLUSH 5 ML FLUSH IVF SCH ×2 (08:57→21:00)
--- NOTE | 2016-06-20 14:07 | HHI.NSPN ---
History Chief Complaint: nonverbal Interval History Stable and improving, waxing alertness but consistently follows commands with both upper extremities Review of Systems General: Negative for: fever, chills, insomnia Respiratory: Negative for: shortness of breath, cough, sputum Genitourinary: Positive for: urinary frequency Exam Results Vital Signs Date Time Temp Pulse Resp B/P Pulse Ox O2 Delivery O2 Flow Rate FiO2 06/20/16 12:05 97.2 74 20 108/68 96 06/20/16 08:25 T-piece 6.00 21 Intake and Output 06/19/16 06/19/16 06/19/16 07:59 15:59 23:59 Intake Total 940 ml 0 ml Balance 940 ml 0 ml Physical Examination Easily arousable, follows with her eyes, non verbal when awake Incisions clean and dry Easy to arouse, nods to questions, grasps with both hands to commands Medical Decision Making Impression and Plan Stable neurologically and improve alertness. Awaiting insurance for rehab. Total Minutes: 10 Kolby Morris MD Jun 20, 2016 14:07
--- NOTE | 2016-06-20 14:08 | HHI.NSPN ---
History Chief Complaint: nonverbal. SAH s/p aneurysm coiling. Interval History 05/03/16: Pt with eyes open. Not following commands. Pupils 4mm bilaterally reactive bilaterally. Ventriculostomy in place at [id number]. ICP 8. 05/04/16: Pt with eyes open. Not following commands. Pupils 4mm bilaterally reactive bilaterally. Ventriculostomy in place at [id number]. ICP 8. 06/20/16: Pt opens eyes intermittently. Follow some simple commands intermittently. Not verbalizing. System Review Comments Not able to obtain pt is nonverbal. Exam Results Vital Signs Date Time Temp Pulse Resp B/P Pulse Ox O2 Delivery O2 Flow Rate FiO2 06/20/16 12:05 97.2 74 20 108/68 96 06/20/16 08:25 T-piece 6.00 21 Intake and Output 06/19/16 06/19/16 06/19/16 07:59 15:59 23:59 Intake Total 940 ml 0 ml Balance 940 ml 0 ml Physical Examination Resp: CTA bilaterally Heart: NSR 3/6 systolic ejection murmur Abd: Soft positive bs Skin: Right SUPERINTENDENT SERVICE shunt Incision healed. No signs of infection or complication. Muscle: Not following consistently this afternoon for me, does move toes on left foot. Family states she has been up all morning and fatigued now. Neuro: Pt opens eyes to voice but is fatigued. Pupils 4mm bilaterally reactive bilaterally. Follows some simple commands. Lab, Micro, Other Results 06/19/16 06/19/16 06/20/16 14:59 22:59 06:59 Intake Total 0 ml 845 ml Balance 0 ml 845 ml Intake Oral 0 ml Tube Feeding 485 ml Tube Irrigant 360 ml # Voids 2 Medical Decision Making Impression and Plan A: 46 y/o FM with neurologic exam stable following endovascular coiling of ruptured cerebral aneurysm with subsequent left decompressive craniotomy 04/14/16 CT angiogram stable: Status post endovascular repair of left supraclinoid aneurysm. Left M1 segment aneurysm stable 04/16/[address] and CTA stable. No vasospasm, no new hemorrhage. 04/22/16: Head CT 14mm left to right shift, and CTA perfusion, no vasospasm 04/28/16: stable, shift decreased to 7mm 05/01/16: stable, mild ventriculomegaly, improving mass effect and shift 05/02/16: CTA brain stable, no vasospasm reported Plan: Continue to monitor. Rehab pending. Nathen Braxton Jun 20, 2016 14:08
[2016-06-21] VITALS (8 sets, daily range): BP systolic 112–136; BP diastolic 69–87; PULSE 70–95; RESP 20; TEMP 96.7–98.8; O2SAT 97–100
[2016-06-21] MEDS: ACETAMINOPHEN/HYDROcodone 325 MG/5 MG TAB PO PRN (05:59)
[2016-06-21] MEDS: hydrALAZINE HCL 25 MG TAB TUBE SCH ×3 (06:00→22:24)
[2016-06-21] MEDS: LABETALOL HCL 300 MG TAB PO SCH ×3 (06:00→22:24)
[2016-06-21] MEDS: SODIUM CHLORIDE 0.9% FLUSH 5 ML FLUSH IVF SCH ×2 (09:00→21:00)
[2016-06-21] MEDS: FAMOTIDINE 20 MG TAB PO SCH ×2 (09:12→22:23)
[2016-06-21] MEDS: ENOXAPARIN SODIUM 40 MG/0.4 ML SYRINGE SQ SCH (09:12)
[2016-06-21] MEDS: HYDROCHLOROTHIAZIDE 25 MG TAB PO SCH (09:12)
--- NOTE | 2016-06-21 14:15 | HHI.NSPN ---
History Chief Complaint: nonverbal. SAH s/p aneurysm coiling. Interval History 05/03/16: Pt with eyes open. Not following commands. Pupils 4mm bilaterally reactive bilaterally. Ventriculostomy in place at [id number]. ICP 8. 05/04/16: Pt with eyes open. Not following commands. Pupils 4mm bilaterally reactive bilaterally. Ventriculostomy in place at [id number]. ICP 8. 06/20/16: Pt opens eyes intermittently. Follow some simple commands intermittently. Not verbalizing. 06/21/16: Pt more awake today. complains of headache. She follows simple commands. Tongue remains swollen. Trach in place. Exam Results Vital Signs Date Time Temp Pulse Resp B/P Pulse Ox O2 Delivery O2 Flow Rate FiO2 06/21/16 12:22 98.5 95 20 112/69 100 06/21/16 07:47 T-piece 21 06/21/16 07:00 5.00 Intake and Output 06/20/16 06/20/16 06/21/16 08:00 16:00 00:00 Intake Total 845 ml Balance 845 ml Physical Examination Resp: CTA bilaterally. Trach in place. Heart: NSR 3/6 systolic ejection murmur Abd: Soft positive bs Skin: Right WAREHOUSE PACKER shunt Incision healed. No signs of infection or complication. Muscle: She follows simple commands. Neuro: Pt opens eyes to voice but is fatigued. Pupils 4mm bilaterally reactive bilaterally. Follows some simple commands. Lab, Micro, Other Results 06/20/16 06/20/16 06/21/16 15:00 23:00 07:00 # Voids 5 4 # Bowel Movements 1 Medical Decision Making Impression and Plan A: 46 y/o FM with neurologic exam stable following endovascular coiling of ruptured cerebral aneurysm with subsequent left decompressive craniotomy 04/14/16 CT angiogram stable: Status post endovascular repair of left supraclinoid aneurysm. Left M1 segment aneurysm stable 04/16/[address] and CTA stable. No vasospasm, no new hemorrhage. 04/22/16: Head CT 14mm left to right shift, and CTA perfusion, no vasospasm 04/28/16: stable, shift decreased to 7mm 05/01/16: stable, mild ventriculomegaly, improving mass effect and shift 05/02/16: CTA brain stable, no vasospasm reported Plan: Continue to monitor. Rehab pending. Nathen Braxton Jun 21, 2016 14:14
[2016-06-22] VITALS (8 sets, daily range): BP systolic 112–148; BP diastolic 80–95; PULSE 81–88; RESP 20–22; TEMP 97–99; O2SAT 95–100
[2016-06-22] MEDS: CHLORHEXIDINE GLUCONATE 2 % 1 PACK (2 CLOTHS) TOP SCH (02:16)
[2016-06-22] MEDS: LABETALOL HCL 300 MG TAB PO SCH ×3 (05:46→21:22)
[2016-06-22] MEDS: hydrALAZINE HCL 25 MG TAB TUBE SCH ×3 (05:46→21:22)
[2016-06-22] MEDS: SODIUM CHLORIDE 0.9% FLUSH 5 ML FLUSH IVF SCH ×2 (09:00→21:00)
[2016-06-22] MEDS: ENOXAPARIN SODIUM 40 MG/0.4 ML SYRINGE SQ SCH (09:54)
[2016-06-22] MEDS: FAMOTIDINE 20 MG TAB PO SCH ×2 (09:54→21:22)
[2016-06-22] MEDS: HYDROCHLOROTHIAZIDE 25 MG TAB PO SCH (09:54)
--- NOTE | 2016-06-22 12:05 | HHI.NSPN ---
History Chief Complaint: nonverbal. SAH s/p aneurysm coiling. Interval History 05/03/16: Pt with eyes open. Not following commands. Pupils 4mm bilaterally reactive bilaterally. Ventriculostomy in place at [id number]. ICP 8. 05/04/16: Pt with eyes open. Not following commands. Pupils 4mm bilaterally reactive bilaterally. Ventriculostomy in place at [id number]. ICP 8. 06/20/16: Pt opens eyes intermittently. Follow some simple commands intermittently. Not verbalizing. 06/21/16: Pt more awake today. complains of headache. She follows simple commands. Tongue remains swollen. Trach in place. 06/22/16: Pt awake and alert. Not verbalizing but communicates by blinking. She has a headache. Follows commands well. System Review Comments Pt not verbalizing for ROS. Exam Results Vital Signs Date Time Temp Pulse Resp B/P Pulse Ox O2 Delivery O2 Flow Rate FiO2 06/22/16 10:46 95 T-piece 7.00 21 06/22/16 08:00 98.6 85 20 112/80 Intake and Output 06/21/16 06/21/16 06/22/16 08:00 16:00 00:00 Intake Total 645 ml Balance 645 ml Physical Examination Resp: CTA bilaterally. Trach in place. Heart: NSR 3/6 systolic ejection murmur Abd: Soft positive bs Skin: Right FIRE SAFETY DIRECTOR shunt Incision healed. No signs of infection or complication. Muscle: She follows simple commands in all 4 extremities. Neuro: Pt opens eyes to voice but is fatigued. Pupils 4mm bilaterally reactive bilaterally. Follows some simple commands. Lab, Micro, Other Results 06/21/16 06/21/16 06/22/16 15:00 23:00 07:00 Intake Total 645 ml 803 ml Balance 645 ml 803 ml Intake Oral 0 ml 0 ml Tube Feeding 495 ml 603 ml Other 150 ml 200 ml # Voids 3 1 2 # Bowel Movements 2 1 0 Medical Decision Making Impression and Plan A: 46 y/o FM with neurologic exam stable following endovascular coiling of ruptured cerebral aneurysm with subsequent left decompressive craniotomy 04/14/16 CT angiogram stable: Status post endovascular repair of left supraclinoid aneurysm. Left M1 segment aneurysm stable 04/16/[address] and CTA stable. No vasospasm, no new hemorrhage. 04/22/16: Head CT 14mm left to right shift, and CTA perfusion, no vasospasm 04/28/16: stable, shift decreased to 7mm 05/01/16: stable, mild ventriculomegaly, improving mass effect and shift 05/02/16: CTA brain stable, no vasospasm reported Plan: Continue to monitor. Rehab pending. Nathen Braxton Jun 22, 2016 12:05
[2016-06-23] VITALS (8 sets, daily range): BP systolic 99–120; BP diastolic 61–88; PULSE 82–89; RESP 17–23; TEMP 96.7–98.1; O2SAT 96–100
[2016-06-23] MEDS: CHLORHEXIDINE GLUCONATE 2 % 1 PACK (2 CLOTHS) TOP SCH (02:11)
[2016-06-23] MEDS: LABETALOL HCL 300 MG TAB PO SCH ×3 (06:32→20:45)
[2016-06-23] MEDS: hydrALAZINE HCL 25 MG TAB TUBE SCH ×3 (06:33→20:43)
[2016-06-23] MEDS: HYDROCHLOROTHIAZIDE 25 MG TAB PO SCH (08:08)
[2016-06-23] MEDS: ENOXAPARIN SODIUM 40 MG/0.4 ML SYRINGE SQ SCH (08:08)
[2016-06-23] MEDS: FAMOTIDINE 20 MG TAB PO SCH ×2 (08:08→20:45)
[2016-06-23] MEDS: SODIUM CHLORIDE 0.9% FLUSH 5 ML FLUSH IVF SCH ×2 (08:09→21:00)
[2016-06-23] MEDS: ACETAMINOPHEN/HYDROcodone 325 MG/5 MG TAB PO PRN ×2 (08:09→20:44)
[2016-06-23] MEDS: RESP: ALBUTEROL 2.5 MG/IPRATROPIUM 0.5 MG NEB (PRN) INH (09:35)
--- NOTE | 2016-06-23 17:17 | HHI.NSPN ---
(Rosa Maria Ellington) Note Status Status: Progress Note (Rosa Maria Ellington) Interval History Interval History 46 y/o female with SAH, s/p coiling of ICA aneurysm. She underwent left decompressive craniectomy 04/[address] Meléndez and placement of BREAD PAN GREASER shunt on . 06/23: she has been neurologically stable, follows simple commands (Rosa Maria Ellington) Labs, Micro, & Vital Signs Results Date Time Temp Pulse Resp B/P Pulse Ox O2 Delivery O2 Flow Rate FiO2 06/23/16 12:45 97.4 82 18 120/78 99 06/23/16 09:49 96 T-piece 21 06/23/16 09:38 96 T-piece 21 06/23/16 09:12 97.7 87 17 110/73 98 06/23/16 06:29 100 T-Piece 5.00 21 06/23/16 05:00 98.0 88 19 120/76 100 06/23/16 00:45 97.0 89 23 120/88 99 06/22/16 22:39 100 T-Piece 5.00 21 06/22/16 21:45 97.0 84 20 125/84 100 06/22/16 19:23 97 T-piece 6.00 21 06/23/16 06:59 Intake Total 800 ml Balance 800 ml Constitutional Vital Signs Date Time Temp Pulse Resp B/P Pulse Ox O2 Delivery O2 Flow Rate FiO2 06/23/16 12:45 97.4 82 18 120/78 99 06/23/16 09:49 96 T-piece 21 06/23/16 09:38 96 T-piece 21 06/23/16 09:12 97.7 87 17 110/73 98 06/23/16 06:29 100 T-Piece 5.00 21 06/23/16 05:00 98.0 88 19 120/76 100 06/23/16 00:45 97.0 89 23 120/88 99 06/22/16 22:39 100 T-Piece 5.00 21 06/22/16 21:45 97.0 84 20 125/84 100 06/22/16 19:23 97 T-piece 6.00 21 06/23/16 06:59 Intake Total 800 ml Balance 800 ml (Rosa Maria Ellington) Review of Systems/Exam Exam Awake, alert. No apparent distress. Follows simple commands. CN: Pupils equal, tracks with grossly intact EOMs. Right BREAD PAN GREASER shunt palpated with good bubble rebound Neck: trached Swollen and protruded tongue which appears to be partially severed to the right. Motor: moves all four extremities grossly to commands, b/l hand mittens in place (Rosa Maria Ellington) Medications Current Medications Current Medications Medications (Trade) Dose Ordered Sig/Zhanna Route PRN Reason Start Time Stop Time Status Last Admin Dose Admin IV Flush (NS Flush) 2 ml UNSCH PRN IVF FLUSH AFTER USING IV ACCESS 04/11/16 13:30 IV Flush (NS Flush) 2 ml BID IVF 04/11/16 21:00 06/12/16 10:33 Ondansetron HCl (Zofran Inj) 4 mg Q6H PRN IV NAUSEA OR VOMITING 04/11/16 13:30 05/20/16 04:01 Miscellaneous Information 1 [id number] XX 04/11/16 13:30 Chlorhexidine Gluconate (Chlorhexidine 2% Cloth) Taper DAILY@04 TOP 04/12/16 04:00 04/08/17 03:59 05/25/16 04:00 Chlorhexidine Gluconate (Chlorhexidine 2% Cloth) 3 pack UNSCH PRN TOP HYGIENIC CARE 04/11/16 13:30 Acetaminophen (Tylenol 650 Mg/ 20 ml Liq) 650 mg Q4H PRN PO Temp > 100. 04/11/16 16:30 05/07/16 01:52 Labetalol HCl (Trandate Inj) 20 mg Q4H PRN IVS SBP > 160 04/25/16 00:30 05/16/16 10:20 Amlodipine Besylate (Norvasc) 10 mg DAILY PO 05/13/16 09:00 06/23/16 08:09 Acetaminophen/ Hydrocodone Bitart ([place] 5-325 Mg) 1 tab Q6H PRN PO PAIN SCALE 1 TO 5 05/12/16 10:15 06/23/16 08:09 Acetaminophen/ Hydrocodone Bitart ([place] 5-325 Mg) 2 tab Q6H PRN PO PAIN SCALE 6 TO 10 05/12/16 10:15 06/20/16 22:21 Morphine Sulfate (Morphine Inj) 2 mg Q2HR PRN IV PUSH PAIN SCALE 1 TO 5 05/12/16 10:15 05/14/16 12:06 Morphine Sulfate (Morphine Inj) 4 mg Q4HR PRN IV PUSH PAIN SCALE 6 TO 10 05/12/16 10:15 05/20/16 04:01 Enoxaparin Sodium (Lovenox Inj) 40 mg Q24H SQ 05/13/16 09:00 06/23/16 08:08 Hydrochlorothiazide (Hydrodiuril) 25 mg DAILY PO 05/16/16 10:00 06/23/16 08:08 Hydralazine HCl (Apresoline Inj) 20 mg Q4H PRN IV PUSH SYS BP GREATER THAN 180 MMHG 05/17/16 14:00 05/19/16 12:57 Hydralazine HCl (Apresoline) 75 mg Q8HR TUBE 05/18/16 22:00 06/23/16 13:45 Labetalol HCl (Trandate) 300 mg Q8HR PO 05/18/16 22:00 06/23/16 13:45 Famotidine (Pepcid) 20 mg BID PO 05/25/16 21:00 06/23/16 08:08 (Rosa Maria Ellington) Medical Decision Making MDM Remarks 46 y/o female with SAH from ruptured ICA aneurysm s/p coiling left MCA aneurysm s/p decompressive left craniectomy s/p placement of BREAD PAN GREASER shunt 05/07/16 (Rosa Maria Ellington) Plan Plan Remarks cont current care cont therapy and rehab efforts dc planning (Rosa Maria Ellington) Attending Statement The exam, history, and the medical decision-making described in the above note were completed with the assistance of the mid-level provider. I reviewed and agree with the findings presented. I attest that I had a [id number] encounter with the patient on the same day, and personally performed and documented my assessment and findings in the medical record. (Ty Miranda MD) Rosa Maria Ellington Jun 23, 2016 17:17 Ty Miranda MD Jun 28, 2016 13:25
[2016-06-24] VITALS (8 sets, daily range): BP systolic 101–135; BP diastolic 68–87; PULSE 77–86; RESP 17–20; TEMP 97–98; O2SAT 94–100
[2016-06-24] MEDS: CHLORHEXIDINE GLUCONATE 2 % 1 PACK (2 CLOTHS) TOP SCH (04:00)
[2016-06-24] MEDS: hydrALAZINE HCL 25 MG TAB TUBE SCH ×3 (06:25→21:52)
[2016-06-24] MEDS: LABETALOL HCL 300 MG TAB PO SCH ×3 (06:25→21:54)
[2016-06-24] MEDS: HYDROCHLOROTHIAZIDE 25 MG TAB PO SCH (08:56)
[2016-06-24] MEDS: FAMOTIDINE 20 MG TAB PO SCH ×2 (08:58→21:52)
[2016-06-24] MEDS: ENOXAPARIN SODIUM 40 MG/0.4 ML SYRINGE SQ SCH (08:58)
[2016-06-24] MEDS: SODIUM CHLORIDE 0.9% FLUSH 5 ML FLUSH IVF SCH ×2 (09:00→21:00)
--- NOTE | 2016-06-24 10:35 | HHI.NSPN ---
History Chief Complaint: nonverbal. SAH s/p aneurysm coiling. Interval History Stable and improving, alert and consistently follows commands with both upper extremities and lower extremities Review of Systems General: Negative for: fever, chills, insomnia Respiratory: Negative for: shortness of breath, cough, sputum Gastrointestinal: Negative for: nausea, vomitting, diarrhea, constipation Exam Results Vital Signs Date Time Temp Pulse Resp B/P Pulse Ox O2 Delivery O2 Flow Rate FiO2 06/24/16 08:31 97.8 78 19 101/68 97 06/24/16 07:41 T-Piece 28 06/23/16 07:00 5.00 Physical Examination Awake, alert. No apparent distress. Follows simple commands. Right PUBLIC HEALTH ANALYST shunt palpated with good bubble rebound Neck: trached Swollen and protruded tongue which appears to be partially severed to the right. Motor: moves all four extremities grossly to commands, b/l hand mittens in place Medical Decision Making Impression and Plan Stable neurologically and improve alertness. Awaiting insurance for rehab. Total Minutes: 10 Kolby Morris Jun 24, 2016 10:35
--- NOTE | 2016-06-24 13:42 | HHI.PR ---
Subjective Remarks Reconsult for medical management, SAH, respiratory failure. Ms. Pride is following commands well. Tolerating tube feed. Brother and another friend at bedside. Objective Vitals Vital Signs Date Time Temp Pulse Resp B/P Pulse Ox O2 Delivery O2 Flow Rate FiO2 06/24/16 13:11 97.0 84 19 135/86 96 06/24/16 08:31 97.8 78 19 101/68 97 06/24/16 07:41 T-Piece 28 06/24/16 04:00 98.0 81 20 121/78 94 06/24/16 00:00 97.9 77 20 111/77 97 06/23/16 22:00 T-Piece 28 06/23/16 20:00 98.1 84 22 99/61 97 06/23/16 18:09 96.7 85 18 115/81 99 Imaging Last Impressions Head CT 05/23/16 06 Signed Impressions: Service Date/Time: Monday, May 23, 2016 04:48 - CONCLUSION: 1. The left craniotomy defect has been repaired. 2. Small blood and air in the left subdural space, up to 6 mm in maximal thickness. Subdural drain in place. 3. Evolving encephalomalacia of the left frontal and temporal lobes. 4. 2 mm of rightward midline shift. 5. Shunted. No ventriculomegaly. Fei Hughes MD Chest X-Ray 05/17/16 0600 Signed Impressions: Service Date/Time: Tuesday, May 17, 2016 04:59 - CONCLUSION: 1. Minimal basilar atelectasis. Cardiomegaly. Quinn Bateman MD Skull X-Ray 05/08/16 0000 Signed Impressions: Service Date/Time: May 10:16 - CONCLUSION: Shunt set to 70-80 mm H2O. Fei Snyder MD Head CTA 05/02/16 0600 Signed Impressions: Service Date/Time: Monday, May 02, 2016 04:32 - CONCLUSION: Satisfactory appearance post aneurysm coiling Fei Snyder MD Abdomen/Pelvis CT 04/24/16 1416 Signed Impressions: Service Date/Time: March 14:39 - CONCLUSION: Mild small bowel ileus with scattered air-fluid levels. Bibasilar lung consolidation with associated small effusions. Significant soft tissue fluid accumulation with edematous changes throughout the abdominal wall. Nasogastric tube in good position. Saqib Garcia MD Neck CTA 04/11/16 1151 Signed Impressions: Service Date/Time: Monday, April 11, 2016 12:01 - CONCLUSION: Negative for hemodynamically significant carotid stenosis. Ricardo Castellanos MD FACR Cerebral Arteriogram 04/11/16 0000 Signed Impressions: Service Date/Time: Monday, April 11, 2016 14:18 - CONCLUSION: 1. 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 This is the aneurysm felt responsible for the intracranial hemorrhage. 2. Small 4 mm left M1 segment aneurysm. Attempts at embolizing this aneurysm were unsuccessful due to the broad based nature of the aneurysm. Endovascular repair of this aneurysm could not be performed. Kennedy Thibodeaux Jr., MD Objective Remarks GENERAL: Alert, responds to verbal commands. NAD. SKIN: Warm and dry. HEAD: Normocephalic. Tongue edema present and protruded. EYES: No scleral icterus. No injection or drainage. NECK: Supple, trachea midline. No JVD or lymphadenopathy. CARDIOVASCULAR: Regular rate and rhythm without murmurs, gallops, or rubs. RESPIRATORY: Breath sounds equal bilaterally. No accessory muscle use. GASTROINTESTINAL: Abdomen soft, non-tender, nondistended. MUSCULOSKELETAL: No cyanosis, or edema. BACK: Nontender without obvious deformity. No CVA tenderness. 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 Pride is a 46-year-old female with a history of hypertension who was brought to the emergency department on 04/11/2016 after she was found unresponsive at her home. Patient was found to have shallow breathing and Angelica Coma Scale of 3 at the time the paramedics found her. ED workup indicated significantly elevated systolic blood pressure around 290 and imaging studies showed a large left hemispheric intra-parenchymal hemorrhage with subarachnoid blood. 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 Patient was valuated by neurosurgery and was managed in the ICU until 05/17/2016. Patient underwent endovascular coiling of MCA by interventional radiology on 04/11/2016. During this admission patient also underwent tracheostomy, PEG tube placement, RAILROAD SIGNAL OPERATOR shunt placement. She also underwent a tongue laceration repair and upper teeth extraction on 05/16/2016. - Acute subarachnoid hemorrhage - Left middle cerebral artery aneurysm - Large left frontal hemorrhage with intracranial hypertension - s/p endovascular coiling of MCA ruptured cerebral aneurysm 04/11 - Family request aggressive care and Dr. Meléndez performed left decompressive craniotomy 04/25 with evacuation of temporal hematoma - Malignant hypertension - Severe LV concentric hypertrophy - s/p permissive Hypertension for prevention of vasospasm in SAH patient now targeting SBP < 160 - s/p 3 weeks of Nimotop therapy for vasospasm prevention - Continue Norvasc 10 q day, Labetalol 300 q 8 hours. HCTZ 25 mg daily, Hydralazine 75mg Q8hrs - Avoiding KISHA-I given severe tongue edema - Acute respiratory failure secondary to SAH/ICH - Severe tongue laceration. - s/p tracheostomy on 04/29/2016. Tongue laceration repair by Dr. Booth on . - Continue T-Piece, Duoneb - Nutrition - Continue tube feed. Full code. Lovenox. Famotidine. Thank you for the consult. We will continue to follow this patient with you. Dutch Momin DO Jun 24, 2016 13:42
[2016-06-24] MEDS: ACETAMINOPHEN/HYDROcodone 325 MG/5 MG TAB PO PRN (17:54)
[2016-06-25] VITALS (7 sets, daily range): BP systolic 123–137; BP diastolic 77–85; PULSE 74–98; RESP 18–20; TEMP 96.2–98.1; O2SAT 95–100
[2016-06-25] MEDS: CHLORHEXIDINE GLUCONATE 2 % 1 PACK (2 CLOTHS) TOP SCH (04:00)
[2016-06-25] MEDS: LABETALOL HCL 300 MG TAB PO SCH ×3 (06:59→22:00)
[2016-06-25] MEDS: hydrALAZINE HCL 25 MG TAB TUBE SCH ×3 (06:59→21:59)
[2016-06-25] MEDS: ACETAMINOPHEN/HYDROcodone 325 MG/5 MG TAB PO PRN ×2 (08:21→22:00)
[2016-06-25] MEDS: HYDROCHLOROTHIAZIDE 25 MG TAB PO SCH (08:21)
[2016-06-25] MEDS: FAMOTIDINE 20 MG TAB PO SCH ×2 (08:21→21:59)
[2016-06-25] MEDS: ENOXAPARIN SODIUM 40 MG/0.4 ML SYRINGE SQ SCH (08:21)
[2016-06-25] MEDS: SODIUM CHLORIDE 0.9% FLUSH 5 ML FLUSH IVF SCH ×2 (09:00→21:00)
--- NOTE | 2016-06-25 10:58 | HHI.PR ---
Subjective Remarks Follow up visit for medical management/ SAH/ Respiratory failure/ Angioedema. Pt. seen in bed, awake alert, responds to some questions and follows commands. Denies pain/ discomfort, SOB/ dyspnea, n/v/d. Mouth guard in place for tongue. Objective Vitals Vital Signs Date Time Temp Pulse Resp B/P Pulse Ox O2 Delivery O2 Flow Rate FiO2 06/25/16 08:00 96.3 81 18 124/81 100 06/25/16 07:26 Humidified 28 06/25/16 05:02 97.2 75 19 127/85 100 06/25/16 00:44 96.9 74 18 134/79 100 06/24/16 21:51 97.8 82 17 122/87 100 06/24/16 19:26 Humidified 28 06/24/16 18:09 96 T-piece 6.00 21 06/24/16 16:26 97.1 86 19 134/82 96 06/24/16 15:16 96 T-piece 28 06/24/16 13:11 97.0 84 19 135/86 96 I/O 06/24/16 06/24/16 06/24/16 06/25/16 06/25/16 06/25/16 07:00 15:00 23:00 07:00 15:00 23:00 Intake Total 1222 ml 562 ml Balance 1222 ml 562 ml Tube Feeding 1102 ml 322 ml Other 120 ml 240 ml # Voids 4 2 1 # Bowel Movements 0 Objective Remarks GENERAL: Alert, responds to verbal commands. NAD. SKIN: Warm and dry. HEAD: Normocephalic. Tongue edema present and protruded. Severed right side, mouth guard in place. EYES: No scleral icterus. No injection or drainage. NECK: Supple, trachea midline. No JVD or lymphadenopathy. CARDIOVASCULAR: Regular rate and rhythm without murmurs, gallops, or rubs. RESPIRATORY: Breath sounds equal bilaterally. No accessory muscle use. GASTROINTESTINAL: Abdomen soft, non-tender, nondistended. MUSCULOSKELETAL: No cyanosis, or edema. BACK: Nontender without obvious deformity. No CVA tenderness. NEURO: Awake and alert. Follows simple commands. Moves extremities weakly. 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 Pride is a 46-year-old female with a history of hypertension who was brought to the emergency department on 04/11/2016 after she was found unresponsive at her home. Patient was found to have shallow breathing and Bolton Coma Scale of 3 at the time the paramedics found her. ED workup indicated significantly elevated systolic blood pressure around 290 and imaging studies showed a large left hemispheric intra-parenchymal hemorrhage with subarachnoid blood. 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 Patient was valuated by neurosurgery and was managed in the ICU until 05/17/2016. Patient underwent endovascular coiling of MCA by interventional radiology on 04/11/2016. During this admission patient also underwent tracheostomy, PEG tube placement, DIRECTOR MANUFACTURING ENGINEERING shunt placement. She also underwent a tongue laceration repair and upper teeth extraction on 05/16/2016. - Acute subarachnoid hemorrhage - Left middle cerebral artery aneurysm - Large left frontal hemorrhage with intracranial hypertension - s/p endovascular coiling of MCA ruptured cerebral aneurysm 04/11 - Family request aggressive care and Dr. Meléndez performed left decompressive craniotomy 04/25 with evacuation of temporal hematoma - Malignant hypertension - Severe LV concentric hypertrophy - s/p permissive Hypertension for prevention of vasospasm in SAH patient now targeting SBP < 160 - s/p 3 weeks of Nimotop therapy for vasospasm prevention - Continue Norvasc 10 q day, Labetalol 300 q 8 hours. HCTZ 25 mg daily, Hydralazine 75mg Q8hrs - Avoiding KISHA-I given severe tongue edema. - BP controlled. - Acute respiratory failure secondary to SAH/ICH - Severe tongue laceration. - s/p tracheostomy on 04/29/2016. Tongue laceration repair by Dr. Booth on . - Continue T-Piece, Duoneb, continue with mouth guard use. - Nutrition - Continue tube feed. Full code. Lovenox. Famotidine. Dutch Momin DO Jun 25, 2016 10:58 am
[2016-06-25] MEDS ORDERED: QUEtiapine FUMARATE 25 MG TAB PO ONE (14:15)
--- NOTE | 2016-06-25 16:23 | HHI.NSPN ---
History Chief Complaint: nonverbal. SAH s/p aneurysm coiling. Interval History 05/03/16: Pt with eyes open. Not following commands. Pupils 4mm bilaterally reactive bilaterally. Ventriculostomy in place at [id number]. ICP 8. 05/04/16: Pt with eyes open. Not following commands. Pupils 4mm bilaterally reactive bilaterally. Ventriculostomy in place at [id number]. ICP 8. 06/20/16: Pt opens eyes intermittently. Follow some simple commands intermittently. Not verbalizing. 06/21/16: Pt more awake today. complains of headache. She follows simple commands. Tongue remains swollen. Trach in place. 06/22/16: Pt awake and alert. Not verbalizing but communicates by blinking. She has a headache. Follows commands well. 06/25/16: Pt fatigues in afternoon. Not following commands. Not verbalizing or mouthing words. Participated with PT earlier today, fatigued now. System Review Comments Not able to obtain. Exam Results Vital Signs Date Time Temp Pulse Resp B/P Pulse Ox O2 Delivery O2 Flow Rate FiO2 06/25/16 15:30 Humidified 28 06/25/16 12:00 96.2 78 20 123/77 100 06/24/16 18:09 6.00 Intake and Output 06/24/16 06/24/16 06/25/16 08:00 16:00 00:00 Intake Total 1222 ml Balance 1222 ml Physical Examination Resp: CTA bilaterally trach in place. Heart: NSR no murmurs Abd: Soft positive bs Skin: PAINTING TRADES WORKER shunt incisions intact. Muscle: Not following for muscle testing this afternoon. Neuro: Pt opens eyes to stimulation briefly. Not following commands. Pupils 3mm bilaterally reactive bilaterally. Lab, Micro, Other Results 06/24/16 06/24/16 06/25/16 15:00 23:00 07:00 Intake Total 1222 ml Balance 1222 ml Tube Feeding 1102 ml Other 120 ml # Voids 2 1 Medical Decision Making Impression and Plan A: 46 y/o FM with neurologic exam stable following endovascular coiling of ruptured cerebral aneurysm with subsequent left decompressive craniotomy 04/14/16 CT angiogram stable: Status post endovascular repair of left supraclinoid aneurysm. Left M1 segment aneurysm stable 04/16/[address] and CTA stable. No vasospasm, no new hemorrhage. 04/22/16: Head CT 14mm left to right shift, and CTA perfusion, no vasospasm 04/28/16: stable, shift decreased to 7mm 05/01/16: stable, mild ventriculomegaly, improving mass effect and shift 05/02/16: CTA brain stable, no vasospasm reported Plan: Continue to monitor. Rehab pending. Nathen Braxton Jun 25, 2016 16:23
[2016-06-26] VITALS (8 sets, daily range): BP systolic 116–135; BP diastolic 71–89; PULSE 61–86; RESP 17–18; TEMP 96.4–98; O2SAT 96–100
[2016-06-26] MEDS: CHLORHEXIDINE GLUCONATE 2 % 1 PACK (2 CLOTHS) TOP SCH (04:00)
[2016-06-26] MEDS: hydrALAZINE HCL 25 MG TAB TUBE SCH ×3 (06:04→21:47)
[2016-06-26] MEDS: LABETALOL HCL 300 MG TAB PO SCH ×3 (06:04→21:47)
[2016-06-26] MEDS: HYDROCHLOROTHIAZIDE 25 MG TAB PO SCH (09:00)
[2016-06-26] MEDS: QUEtiapine FUMARATE 25 MG TAB PO SCH ×2 (09:00→21:47)
[2016-06-26] MEDS: SODIUM CHLORIDE 0.9% FLUSH 5 ML FLUSH IVF SCH ×2 (09:00→21:00)
[2016-06-26] MEDS: ACETAMINOPHEN/HYDROcodone 325 MG/5 MG TAB PO PRN ×2 (10:30→18:48)
[2016-06-26] MEDS: FAMOTIDINE 20 MG TAB PO SCH ×2 (10:31→21:47)
[2016-06-26] MEDS: ENOXAPARIN SODIUM 40 MG/0.4 ML SYRINGE SQ SCH (10:32)
--- NOTE | 2016-06-26 13:21 | HHI.PR ---
Subjective Remarks Follow up visit for medical management/ SAH/ Respiratory failure/ Angioedema. Pt. seen in bed, drowsy but arousable to name call, responds to some questions and follows commands. Denies pain/ discomfort, SOB/ dyspnea, n/v/d. Mouth guard in place for tongue. No acute issues overnight. On Tpiece. Objective Vitals Vital Signs Date Time Temp Pulse Resp B/P Pulse Ox O2 Delivery O2 Flow Rate FiO2 06/26/16 10:25 Room Air T-Piece Humidified 06/26/16 08:00 97.1 81 18 116/84 100 06/26/16 07:37 96 T-piece 6.00 21 06/26/16 04:55 97.2 86 18 125/84 98 06/26/16 01:01 Room Air T-Piece Humidified 06/26/16 00:05 98.0 72 17 135/79 98 06/25/16 20:47 98.1 98 18 126/84 95 06/25/16 16:00 96.5 81 18 137/82 100 06/25/16 15:30 Humidified 28 I/O 06/25/16 06/25/16 06/25/16 06/26/16 06/26/16 06/26/16 06:59 14:59 22:59 06:59 14:59 22:59 Intake Total 562 ml 897 ml Balance 562 ml 897 ml Tube Feeding 322 ml 897 ml Other 240 ml # Voids 1 3 3 # Bowel Movements 2 1 Imaging Last Impressions Head CT 05/23/16 0600 Signed Impressions: Service Date/Time: Monday, May 23, 2016 04:48 - CONCLUSION: 1. The left craniotomy defect has been repaired. 2. Small blood and air in the left subdural space, up to 6 mm in maximal thickness. Subdural drain in place. 3. Evolving encephalomalacia of the left frontal and temporal lobes. 4. 2 mm of rightward midline shift. 5. Shunted. No ventriculomegaly. Fei Hughes MD Chest X-Ray 05/17/16 0600 Signed Impressions: Service Date/Time: Tuesday, May 17, 2016 04:59 - CONCLUSION: 1. Minimal basilar atelectasis. Cardiomegaly. Quinn Bateman MD Skull X-Ray 05/08/16 0000 Signed Impressions: Service Date/Time: May 10:16 - CONCLUSION: Shunt set to 70-80 mm H2O. Fei Snyder MD Head CTA 05/02/16 0600 Signed Impressions: Service Date/Time: Monday, May 02, 2016 04:32 - CONCLUSION: Satisfactory appearance post aneurysm coiling Fei Snyder MD Abdomen/Pelvis CT 04/24/16 1416 Signed Impressions: Service Date/Time: March 14:39 - CONCLUSION: Mild small bowel ileus with scattered air-fluid levels. Bibasilar lung consolidation with associated small effusions. Significant soft tissue fluid accumulation with edematous changes throughout the abdominal wall. Nasogastric tube in good position. Saqib Garcia MD Neck CTA 04/11/16 1151 Signed Impressions: Service Date/Time: Monday, April 11, 2016 12:01 - CONCLUSION: Negative for hemodynamically significant carotid stenosis. Ricardo Castellanos MD FACR Cerebral Arteriogram 04/11/16 0000 Signed Impressions: Service Date/Time: Monday, April 11, 2016 14:18 - CONCLUSION: 1. 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 This is the aneurysm felt responsible for the intracranial hemorrhage. 2. Small 4 mm left M1 segment aneurysm. Attempts at embolizing this aneurysm were unsuccessful due to the broad based nature of the aneurysm. Endovascular repair of this aneurysm could not be performed. Kennedy Thibodeaux Jr., MD Objective Remarks GENERAL: Alert, responds to verbal commands. NAD. SKIN: Warm and dry. HEAD: Normocephalic. Tongue edema present and protruded. Severed right side, mouth guard in place. EYES: No scleral icterus. No injection or drainage. NECK: Supple, trachea midline. No JVD or lymphadenopathy. CARDIOVASCULAR: Regular rate and rhythm without murmurs, gallops, or rubs. RESPIRATORY: Breath sounds equal bilaterally. No accessory muscle use. GASTROINTESTINAL: Abdomen soft, non-tender, nondistended. MUSCULOSKELETAL: No cyanosis, or edema. BACK: Nontender without obvious deformity. No CVA tenderness. NEURO: Drowsy but arousable to name call. Follows simple commands. Moves extremities weakly. 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 Pride is a 46-year-old female with a history of hypertension who was brought to the emergency department on 04/11/2016 after she was found unresponsive at her home. Patient was found to have shallow breathing and Angelica Coma Scale of 3 at the time the paramedics found her. ED workup indicated significantly elevated systolic blood pressure around 290 and imaging studies showed a large left hemispheric intra-parenchymal hemorrhage with subarachnoid blood. 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 Patient was valuated by neurosurgery and was managed in the ICU until 05/17/2016. Patient underwent endovascular coiling of MCA by interventional radiology on 04/11/2016. During this admission patient also underwent tracheostomy, PEG tube placement, PROFESSOR OF EXERCISE SCIENCE shunt placement. She also underwent a tongue laceration repair and upper teeth extraction on 05/16/2016. - Acute subarachnoid hemorrhage - Left middle cerebral artery aneurysm - Large left frontal hemorrhage with intracranial hypertension - s/p endovascular coiling of MCA ruptured cerebral aneurysm 04/11 - Family request aggressive care and Dr. Meléndez performed left decompressive craniotomy 04/25 with evacuation of temporal hematoma - Malignant hypertension - Severe LV concentric hypertrophy - s/p permissive Hypertension for prevention of vasospasm in SAH patient now targeting SBP < 160 - s/p 3 weeks of Nimotop therapy for vasospasm prevention - Continue Norvasc 10 q day, Labetalol 300 q 8 hours. HCTZ 25 mg daily, Hydralazine 75mg Q8hrs - Avoiding KISHA-I given severe tongue edema. - BP controlled. - Acute respiratory failure secondary to SAH/ICH - Severe tongue laceration. - s/p tracheostomy on 04/29/2016. Tongue laceration repair by Dr. Booth on . - Continue T-Piece, Duoneb, continue with mouth guard use. - Plan with case management for possible LTC placement with [facility] facility if unable to wean. - Nutrition - Continue tube feed. - Restlessness/ agitation - Started on seroquel yesterday. Decrease restlessness and agitation Full code. Lovenox. Famotidine. Dutch Momin DO Jun 26, 2016 13:20
--- NOTE | 2016-06-26 21:29 | HHI.NSPN ---
History Chief Complaint: nonverbal. SAH s/p aneurysm coiling. Interval History 04/12/16: Patient had an aneurysm coiled 04/11/2016, intubated and sedated, ICP stable overnight 04/29/2016: Tracheostomy and PEG placement 06/03/16: Remains awake, primarily left lateral gaze. Grasp with left hand, not definitely to command. Exam Results Vital Signs Date Time Temp Pulse Resp B/P Pulse Ox O2 Delivery O2 Flow Rate FiO2 06/26/16 16:00 96.7 77 18 121/71 96 06/26/16 10:25 Room Air T-Piece Humidified 06/26/16 07:37 6.00 21 Intake and Output 06/25/16 06/25/16 06/26/16 08:00 16:00 00:00 Intake Total 562 ml 897 ml Balance 562 ml 897 ml Physical Examination Resp: CTA bilaterally trach in place. Heart: NSR no murmurs Abd: Soft positive bs Skin: HYPERCIL CORE TRANSFORMER ASSEMBLER shunt incisions intact. Neuro: Quite a bit more lethargic on examination today. Mild eye-opening. Not following commands. Mild grasp when stimulated. Medical Decision Making Impression and Plan Impression: 1. Somewhat more lethargic today. Possibly related to initiation of Seroquel. Plan: Discussed with patient's nursing staff. Advised to alert if any further decline in mental status. May need adjustment of Seroquel if persistent increased lethargy. Continuing tube feedings for nutrition Wound care nurse evaluation for lumbosacral skin breakdown. Continuing decubitus precautions Tracheostomy care Continuing therapy Case management following Bite-block in place for tongue laceration-edema improving She will need discharge to rehabilitation if arrangements can be made. Sherwin Meléndez MD Jun 26, 2016 21:29
[2016-06-27] VITALS (7 sets, daily range): BP systolic 107–141; BP diastolic 64–94; PULSE 76–89; RESP 18–19; TEMP 96.1–97.5; O2SAT 95–100
[2016-06-27] MEDS: CHLORHEXIDINE GLUCONATE 2 % 1 PACK (2 CLOTHS) TOP SCH (03:31)
[2016-06-27] MEDS: LABETALOL HCL 300 MG TAB PO SCH ×3 (06:04→21:22)
[2016-06-27] MEDS: hydrALAZINE HCL 25 MG TAB TUBE SCH ×3 (06:05→21:22)
[2016-06-27 07:13] LABS: BASOPHIL % 0.6 % (0.0-2.0); EOSINOPHIL # 0.1 TH/MM3 (0-0.4); EOSINOPHIL % 2.7 % (0.0-4.0); HEMATOCRIT 35.6 % (35.0-46.0); HEMO FLAGS DIFF FINAL; LYMPH % 48.6 % (9.0-44.0); LYMPHOCYTE # 2.7 TH/MM3 (1.0-4.8); MEAN CORPUSCULAR HEMOGLOBIN 25.8 PG (27.0-34.0); MONO % 11.1 % (0.0-8.0); PLATELET COUNT 294 TH/MM3 (150-450); RED BLOOD COUNT 4.56 MIL/MM3 (4.00-5.30); WHITE BLOOD COUNT 5.5 TH/MM3 (4.0-11.0)
[2016-06-27 07:19] LABS: BICARBONATE 27.7 MEQ/L (21.0-32.0); POTASSIUM 3.7 MEQ/L (3.5-5.1)
[2016-06-27] MEDS: QUEtiapine FUMARATE 25 MG TAB PO SCH ×2 (09:00→21:22)
[2016-06-27] MEDS: SODIUM CHLORIDE 0.9% FLUSH 5 ML FLUSH IVF SCH ×2 (09:00→21:00)
[2016-06-27] MEDS: ENOXAPARIN SODIUM 40 MG/0.4 ML SYRINGE SQ SCH (10:19)
[2016-06-27] MEDS: HYDROCHLOROTHIAZIDE 25 MG TAB PO SCH (10:20)
[2016-06-27] MEDS: FAMOTIDINE 20 MG TAB PO SCH ×2 (10:21→21:22)
[2016-06-27] MEDS: ACETAMINOPHEN/HYDROcodone 325 MG/5 MG TAB PO PRN ×2 (10:21→17:00)
--- NOTE | 2016-06-27 13:46 | HHI.PR ---
Subjective Remarks Follow up visit for medical management/ SAH/ Respiratory failure/ Angioedema. Patient opens eyes on verbal commands, follows simple commands. Family at bedside. No fever, chills. Tolerating tube feed well. Objective Vitals Vital Signs Date Time Temp Pulse Resp B/P Pulse Ox O2 Delivery O2 Flow Rate FiO2 06/27/16 12:00 96.4 76 18 107/64 100 06/27/16 10:32 Room Air T-Piece Humidified 06/27/16 10:20 T-piece 21 06/27/16 08:00 96.1 79 18 122/86 99 06/27/16 06:08 Room Air T-Piece Humidified 06/27/16 04:00 97.0 89 19 112/83 99 06/27/16 00:00 97.1 81 19 123/78 95 06/26/16 20:15 Room Air T-Piece Humidified 06/26/16 20:00 97.0 68 18 121/78 97 06/26/16 19:58 18 06/26/16 19:54 98 T-piece 5.00 21 06/26/16 16:00 96.7 77 18 121/71 96 Result Diagram: 06/27/16 0530 06/27/16 0530 Imaging Last Impressions Head CT 05/23/16 06 Signed Impressions: Service Date/Time: Monday, May 23, 2016 04:48 - CONCLUSION: 1. The left craniotomy defect has been repaired. 2. Small blood and air in the left subdural space, up to 6 mm in maximal thickness. Subdural drain in place. 3. Evolving encephalomalacia of the left frontal and temporal lobes. 4. 2 mm of rightward midline shift. 5. Shunted. No ventriculomegaly. Fei Hughes MD Chest X-Ray 05/17/16 06 Signed Impressions: Service Date/Time: Tuesday, May 17, 2016 04:59 - CONCLUSION: 1. Minimal basilar atelectasis. Cardiomegaly. Quinn Bateman MD Skull X-Ray 05/08/16 0000 Signed Impressions: Service Date/Time: May 10:16 - CONCLUSION: Shunt set to 70-80 mm H2O. Fei Snyder MD Head CTA 05/02/16 06 Signed Impressions: Service Date/Time: Monday, May 02, 2016 04:32 - CONCLUSION: Satisfactory appearance post aneurysm coiling Fei Snyder MD Abdomen/Pelvis CT 04/24/16 1416 Signed Impressions: Service Date/Time: March 14:39 - CONCLUSION: Mild small bowel ileus with scattered air-fluid levels. Bibasilar lung consolidation with associated small effusions. Significant soft tissue fluid accumulation with edematous changes throughout the abdominal wall. Nasogastric tube in good position. Saqib Garcia MD Neck CTA 04/11/16 1151 Signed Impressions: Service Date/Time: Monday, April 11, 2016 12:01 - CONCLUSION: Negative for hemodynamically significant carotid stenosis. Ricardo Castellanos MD FACR Cerebral Arteriogram 04/11/16 0000 Signed Impressions: Service Date/Time: Monday, April 11, 2016 14:18 - CONCLUSION: 1. 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 This is the aneurysm felt responsible for the intracranial hemorrhage. 2. Small 4 mm left M1 segment aneurysm. Attempts at embolizing this aneurysm were unsuccessful due to the broad based nature of the aneurysm. Endovascular repair of this aneurysm could not be performed. Kennedy Thibodeaux Jr., MD Objective Remarks GENERAL: Alert, responds to verbal commands. NAD. SKIN: Warm and dry. HEAD: Normocephalic. Tongue edema present and protruded. Severed right side, mouth guard in place. EYES: No scleral icterus. No injection or drainage. NECK: Supple, trachea midline. No JVD or lymphadenopathy. CARDIOVASCULAR: Regular rate and rhythm without murmurs, gallops, or rubs. RESPIRATORY: Breath sounds equal bilaterally. No accessory muscle use. GASTROINTESTINAL: Abdomen soft, non-tender, nondistended. MUSCULOSKELETAL: No cyanosis, or edema. BACK: Nontender without obvious deformity. No CVA tenderness. NEURO: Drowsy but arousable to name call. Follows simple commands. Moves extremities weakly. 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 Pride is a 46-year-old female with a history of hypertension who was brought to the emergency department on 04/11/2016 after she was found unresponsive at her home. Patient was found to have shallow breathing and [place] Coma Scale of 3 at the time the paramedics found her. ED workup indicated significantly elevated systolic blood pressure around 290 and imaging studies showed a large left hemispheric intra-parenchymal hemorrhage with subarachnoid blood. 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 Patient was valuated by neurosurgery and was managed in the ICU until 05/17/2016. Patient underwent endovascular coiling of MCA by interventional radiology on 04/11/2016. During this admission patient also underwent tracheostomy, PEG tube placement, MAINTENANCE SHOP LABORER shunt placement. She also underwent a tongue laceration repair and upper teeth extraction on 05/16/2016. - Acute subarachnoid hemorrhage - Left middle cerebral artery aneurysm - Large left frontal hemorrhage with intracranial hypertension - s/p endovascular coiling of MCA ruptured cerebral aneurysm 04/11 - Family request aggressive care and Dr. Meléndez performed left decompressive craniotomy 04/25 with evacuation of temporal hematoma - Malignant hypertension - Severe LV concentric hypertrophy - s/p permissive Hypertension for prevention of vasospasm in SAH patient now targeting SBP < 160 - s/p 3 weeks of Nimotop therapy for vasospasm prevention - Continue Norvasc 10 q day, Labetalol 300 q 8 hours. HCTZ 25 mg daily, Hydralazine 75mg Q8hrs - Avoiding KISHA-I given severe tongue edema. - BP controlled. - Acute respiratory failure secondary to SAH/ICH - Severe tongue laceration. - s/p tracheostomy on 04/29/2016. Tongue laceration repair by Dr. Booth on . - Continue T-Piece, Duoneb, continue with mouth guard use. - Discussed with CM about possible LTC placement with [facility] facility if unable to wean. - Nutrition - Continue tube feed. - Restlessness/ agitation - continue Seroquel 25 mg twice a day which appears to be effective so far. Full code. Lovenox. Famotidine. Dutch Momin DO Jun 27, 2016 1:46 pm
--- NOTE | 2016-06-27 19:03 | HHI.NSPN ---
History Chief Complaint: nonverbal. SAH s/p aneurysm coiling. Interval History 04/12/16: Patient had an aneurysm coiled 04/11/2016, intubated and sedated, ICP stable overnight 04/29/2016: Tracheostomy and PEG placement 06/03/16: Remains awake, primarily left lateral gaze. Grasp with left hand, not definitely to command. Exam Results Vital Signs Date Time Temp Pulse Resp B/P Pulse Ox O2 Delivery O2 Flow Rate FiO2 06/27/16 16:00 97.0 79 18 109/79 100 06/27/16 10:32 Room Air T-Piece Humidified 06/27/16 10:20 21 06/26/16 19:54 5.00 Physical Examination Resp: CTA bilaterally trach in place. Heart: NSR no murmurs Abd: Soft positive bs Skin: AUDIO NARRATOR shunt incisions intact. Neuro: Sitting up in a chair and much more alert again on examination today. Shakes head intermittent yes and no and response to some questions. Moderate grasp and flexion left upper extremity to command. Medical Decision Making Impression and Plan Impression: 1. Mental status improved again compared to 06/26/16. Plan: May need adjustment of Seroquel if further problems with increased lethargy. Continuing tube feedings for nutrition Wound care nurse evaluation for lumbosacral skin breakdown. Continuing decubitus precautions Tracheostomy care Continuing therapy Case management following Bite-block in place for tongue laceration-edema improving She will need discharge to rehabilitation if arrangements can be made. Sherwin Meléndez MD Jun 27, 2016 19:03
[2016-06-28] VITALS (8 sets, daily range): BP systolic 107–147; BP diastolic 68–102; PULSE 71–94; RESP 18–20; TEMP 95.6–98.7; O2SAT 95–100
[2016-06-28] MEDS: CHLORHEXIDINE GLUCONATE 2 % 1 PACK (2 CLOTHS) TOP SCH (04:00)
[2016-06-28] MEDS: hydrALAZINE HCL 25 MG TAB TUBE SCH ×3 (06:57→21:36)
[2016-06-28] MEDS: LABETALOL HCL 300 MG TAB PO SCH ×3 (07:00→21:35)
[2016-06-28] MEDS: FAMOTIDINE 20 MG TAB PO SCH ×2 (09:15→21:35)
[2016-06-28] MEDS: ENOXAPARIN SODIUM 40 MG/0.4 ML SYRINGE SQ SCH (09:15)
[2016-06-28] MEDS: QUEtiapine FUMARATE 25 MG TAB PO SCH ×2 (09:15→21:35)
[2016-06-28] MEDS: HYDROCHLOROTHIAZIDE 25 MG TAB PO SCH (09:15)
[2016-06-28] MEDS: SODIUM CHLORIDE 0.9% FLUSH 5 ML FLUSH IVF SCH ×2 (09:16→21:00)
[2016-06-28] MEDS: ACETAMINOPHEN/HYDROcodone 325 MG/5 MG TAB PO PRN ×2 (13:06→21:36)
--- NOTE | 2016-06-28 13:29 | HHI.NSPN ---
(Rosa Maria Ellington) Note Status Status: Progress Note (Rosa Maria Ellington) Interval History Interval History 46 y/o female with SAH, s/p coiling of ICA aneurysm. She underwent left decompressive craniectomy 04/[address] Meléndez and placement of SLASHER TENDER HELPER shunt on . 06/28: awaiting placement, no changes overnight (Rosa Maria Ellington) Labs, Micro, & Vital Signs Results Date Time Temp Pulse Resp B/P Pulse Ox O2 Delivery O2 Flow Rate FiO2 06/28/16 12:00 95.6 79 20 132/84 98 06/28/16 08:00 98.7 85 20 147/102 100 06/28/16 07:30 Trach Collar 5.00 21 T-Piece Humidified 06/28/16 07:00 96.8 94 19 141/89 95 06/28/16 04:00 97.5 86 18 138/92 97 06/28/16 00:51 95.8 80 18 134/82 98 06/27/16 22:42 98 T-piece 21 06/27/16 22:30 Room Air T-Piece Humidified 06/27/16 20:17 97.5 77 18 141/94 96 06/27/16 16:00 97.0 79 18 109/79 100 Constitutional Vital Signs Date Time Temp Pulse Resp B/P Pulse Ox O2 Delivery O2 Flow Rate FiO2 06/28/16 12:00 95.6 79 20 132/84 98 06/28/16 08:00 98.7 85 20 147/102 100 06/28/16 07:30 Trach Collar 5.00 21 T-Piece Humidified 06/28/16 07:00 96.8 94 19 141/89 95 06/28/16 04:00 97.5 86 18 138/92 97 06/28/16 00:51 95.8 80 18 134/82 98 06/27/16 22:42 98 T-piece 21 06/27/16 22:30 Room Air T-Piece Humidified 06/27/16 20:17 97.5 77 18 141/94 96 06/27/16 16:00 97.0 79 18 109/79 100 (Rosa Maria Ellington) Review of Systems/Exam Exam Awake, alert. Nods to questions, and follows simple commands. CN: Pupils equal, tracks with grossly intact EOMs. Right SLASHER TENDER HELPER shunt seen Neck: tracheostomy Motor: moves all four extremities grossly to commands (Roas Maria Ellington) Medications Current Medications Current Medications Medications (Trade) Dose Ordered Sig/Zhanna Route PRN Reason Start Time Stop Time Status Last Admin Dose Admin IV Flush (NS Flush) 2 ml UNSCH PRN IVF FLUSH AFTER USING IV ACCESS 04/11/16 13:30 IV Flush (NS Flush) 2 ml BID IVF 04/11/16 21:00 06/28/16 09:16 Ondansetron HCl (Zofran Inj) 4 mg Q6H PRN IV NAUSEA OR VOMITING 04/11/16 13:30 05/20/16 04:01 Miscellaneous Information 1 Q361D XX 04/11/16 13:30 Chlorhexidine Gluconate (Chlorhexidine 2% Cloth) 3 pack Taper DAILY@04 TOP 04/12/16 04:00 04/08/17 03:59 05/25/16 04:00 Chlorhexidine Gluconate (Chlorhexidine 2% Cloth) 3 pack UNSCH PRN [facility] HYGIENIC CARE 04/11/16 13:30 Acetaminophen (Tylenol 650 Mg/ 20 ml Liq) 650 mg Q4H PRN PO Temp > 100. 04/11/16 16:30 05/07/16 01:52 Labetalol HCl (Trandate Inj) 20 mg Q4H PRN IVS SBP > 160 04/25/16 00:30 05/16/16 10:20 Amlodipine Besylate (Norvasc) 10 mg DAILY PO 05/13/16 09:00 06/28/16 09:15 Acetaminophen/ Hydrocodone Bitart ([place] 5-325 Mg) 1 tab Q6H PRN PO PAIN SCALE 1 TO 5 05/12/16 10:15 06/25/16 22:00 Acetaminophen/ Hydrocodone Bitart ([place] 5-325 Mg) 2 tab Q6H PRN PO PAIN SCALE 6 TO 10 05/12/16 10:15 06/28/16 13:06 Morphine Sulfate (Morphine Inj) 2 mg Q2HR PRN IV PUSH PAIN SCALE 1 TO 5 05/12/16 10:15 05/14/16 12:06 Morphine Sulfate (Morphine Inj) 4 mg Q4HR PRN IV PUSH PAIN SCALE 6 TO 10 05/12/16 10:15 05/20/16 04:01 Enoxaparin Sodium (Lovenox Inj) 40 mg Q24H SQ 05/13/16 09:00 06/28/16 09:15 Hydrochlorothiazide (Hydrodiuril) 25 mg DAILY PO 05/16/16 10:00 06/28/16 09:15 Hydralazine HCl (Apresoline Inj) 20 mg Q4H PRN IV PUSH SYS BP GREATER THAN 180 MMHG 05/17/16 14:00 05/19/16 12:57 Hydralazine HCl (Apresoline) 75 mg Q8HR TUBE 05/18/16 22:00 06/28/16 13:05 Labetalol HCl (Trandate) 300 mg Q8HR PO 05/18/16 22:00 06/28/16 13:05 Famotidine (Pepcid) 20 mg BID PO 05/25/16 21:00 06/28/16 09:15 Quetiapine Fumarate (SEROquel) 25 mg BID PO 06/26/16 09:00 06/28/16 09:15 (Rosa Maria Ellington) Medical Decision Making MDM Remarks 46 y/o female with SAH from ruptured ICA aneurysm s/p coiling left MCA aneurysm s/p decompressive left craniectomy s/p placement of SLASHER TENDER HELPER shunt 05/07/16 (Rosa Maria Ellington) Plan Plan Remarks neuro exam stable cont current care cont therapy dc when placement available (Rosa Maria Ellington) Attending Statement The exam, history, and the medical decision-making described in the above note were completed with the assistance of the mid-level provider. I reviewed and agree with the findings presented. I attest that I had a [id number] encounter with the patient on the same day, and personally performed and documented my assessment and findings in the medical record. (Ty Miranda MD) Rosa Maria Ellington Jun 28, 2016 13:29 Ty Miranda MD Jun 29, 2016 19:51
--- NOTE | 2016-06-28 18:06 | HHI.PR ---
Subjective Remarks Patient is awake but does not follow commands. Objective Vitals Vital Signs Date Time Temp Pulse Resp B/P Pulse Ox O2 Delivery O2 Flow Rate FiO2 06/28/16 16:00 96.5 71 20 107/68 100 06/28/16 12:00 95.6 79 20 132/84 98 06/28/16 10:45 98 T-piece 21 06/28/16 08:00 98.7 85 20 147/102 100 06/28/16 07:30 Trach Collar 5.00 21 T-Piece Humidified 06/28/16 07:00 96.8 94 19 141/89 95 06/28/16 04:00 97.5 86 18 138/92 97 06/28/16 00:51 95.8 80 18 134/82 98 06/27/16 22:42 98 T-piece 21 06/27/16 22:30 Room Air T-Piece Humidified 06/27/16 20:17 97.5 77 18 141/94 96 I/O 06/27/16 06/27/16 06/27/16 06/28/16 06/28/16 06/28/16 07:00 15:00 23:00 07:00 15:00 23:00 # Voids 0 3 1 4 # Bowel Movements 1 Result Diagram: 06/27/16 0530 06/27/16 0530 Objective Remarks GENERAL: Patient nonverbal and does not follow commands. HEAD: Normocephalic. Tongue edema present and protruded. CARDIOVASCULAR: Regular rate and rhythm without murmurs, gallops, or rubs. RESPIRATORY: Breath sounds equal bilaterally. No accessory muscle use. GASTROINTESTINAL: Abdomen soft, non-tender, nondistended. MUSCULOSKELETAL: No cyanosis, or edema. BACK: Nontender without obvious deformity. No CVA tenderness. NEURO: Awake. Does not follow commands. 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 Patient was found to have shallow breathing and [place] Coma Scale of 3 at the time the paramedics found her. ED workup indicated significantly elevated systolic blood pressure around 290 and imaging studies showed a large left hemispheric intra-parenchymal hemorrhage with subarachnoid blood. 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 Patient was valuated by neurosurgery and was managed in the ICU until 05/17/2016. Patient underwent endovascular coiling of MCA by interventional radiology on 04/11/2016. During this admission patient also underwent tracheostomy, PEG tube placement, PEELER OPERATOR shunt placement. She also underwent a tongue laceration repair and upper teeth extraction on 05/16/2016. - Acute subarachnoid hemorrhage - Left middle cerebral artery aneurysm - Large left frontal hemorrhage with intracranial hypertension - s/p endovascular coiling of MCA ruptured cerebral aneurysm 04/11 - Family request aggressive care and Dr. Meléndez performed left decompressive craniotomy 04/25 with evacuation of temporal hematoma - Malignant hypertension - Severe LV concentric hypertrophy - s/p permissive Hypertension for prevention of vasospasm in SAH patient now targeting SBP < 160 - s/p 3 weeks of Nimotop therapy for vasospasm prevention - Continue Norvasc 10 q day, Labetalol 300 q 8 hours. HCTZ 25 mg daily, Hydralazine 75mg Q8hrs - Avoiding KISHA-I given severe tongue edema. - BP controlled. - Acute respiratory failure secondary to SAH/ICH - Severe tongue laceration. - s/p tracheostomy on 04/29/2016. Tongue laceration repair by Dr. Booth on . - Continue T-Piece, Duoneb, continue with mouth guard use. - Discussed with CM about possible LTC placement with [facility]ach facility if unable to wean. - Nutrition - Continue tube feed. - Restlessness/ agitation - continue Seroquel 25 mg twice a day which appears to be effective so far. Full code. Lovenox. Famotidine. Louise Jones MD Jun 28, 2016 18:06
[2016-06-29] VITALS (8 sets, daily range): BP systolic 104–124; BP diastolic 68–91; PULSE 76–90; RESP 17–20; TEMP 95.9–97.9; O2SAT 97–100
[2016-06-29] MEDS: CHLORHEXIDINE GLUCONATE 2 % 1 PACK (2 CLOTHS) TOP SCH (04:00)
[2016-06-29] MEDS: LABETALOL HCL 300 MG TAB PO SCH ×3 (05:41→22:29)
[2016-06-29] MEDS: hydrALAZINE HCL 25 MG TAB TUBE SCH ×3 (05:41→22:29)
[2016-06-29] MEDS ORDERED: CARV12.5 PO (08:26)
[2016-06-29] MEDS ORDERED: NAPR550 PO (08:26)
[2016-06-29] MEDS ORDERED: PRIN20TA2 PO (08:26)
[2016-06-29] MEDS: SODIUM CHLORIDE 0.9% FLUSH 5 ML FLUSH IVF SCH ×2 (09:00→21:00)
[2016-06-29] MEDS: ENOXAPARIN SODIUM 40 MG/0.4 ML SYRINGE SQ SCH (11:06)
[2016-06-29] MEDS: HYDROCHLOROTHIAZIDE 25 MG TAB PO SCH (11:06)
[2016-06-29] MEDS: FAMOTIDINE 20 MG TAB PO SCH ×2 (11:06→22:29)
[2016-06-29] MEDS: QUEtiapine FUMARATE 25 MG TAB PO SCH ×2 (11:06→22:29)
--- NOTE | 2016-06-29 11:15 | HHI.NSPN ---
(Rosa Maria Ellington) Note Status Status: Progress Note (Rosa Maria Ellington) Interval History Interval History 46 y/o female with SAH, s/p coiling of ICA aneurysm. She underwent left decompressive craniectomy 04/[address] Meléndez and placement of TURBINATED BONE GRINDER shunt on . 06/28: awaiting placement, no changes overnight 06/29: no acute events overnight (Rosa Maria Ellington) Labs, Micro, & Vital Signs Results Date Time Temp Pulse Resp B/P Pulse Ox O2 Delivery O2 Flow Rate FiO2 06/29/16 09:16 96.4 90 17 124/68 97 06/29/16 08:22 97 T-piece 6.00 21 06/29/16 04:07 96.4 83 18 114/82 100 06/29/16 00:07 97.9 78 20 107/70 100 06/28/16 20:07 97.4 77 20 110/68 100 06/28/16 18:28 T-piece 21 06/28/16 16:00 96.5 71 20 107/68 100 06/28/16 12:00 95.6 79 20 132/84 98 06/29/16 07:00 Intake Total 0 ml Balance 0 ml Constitutional Vital Signs Date Time Temp Pulse Resp B/P Pulse Ox O2 Delivery O2 Flow Rate FiO2 06/29/16 09:16 96.4 90 17 124/68 97 06/29/16 08:22 97 T-piece 6.00 21 06/29/16 04:07 96.4 83 18 114/82 100 06/29/16 00:07 97.9 78 20 107/70 100 06/28/16 20:07 97.4 77 20 110/68 100 06/28/16 18:28 T-piece 21 06/28/16 16:00 96.5 71 20 107/68 100 06/28/16 12:00 95.6 79 20 132/84 98 06/29/16 07:00 Intake Total 0 ml Balance 0 ml (Rosa Maria Ellington) Review of Systems/Exam Exam Awake, alert. Nods to questions, and follows simple commands. CN: Pupils equal, tracks with grossly intact EOMs. Right TURBINATED BONE GRINDER shunt seen Neck: tracheostomy Motor: moves all four extremities grossly to commands (Rosa Maria Ellington) Medications Current Medications Current Medications Medications (Trade) Dose Ordered Sig/Zhanna Route PRN Reason Start Time Stop Time Status Last Admin Dose Admin IV Flush (NS Flush) 2 ml UNSCH PRN IVF FLUSH AFTER USING IV ACCESS 04/11/16 13:30 IV Flush (NS Flush) 2 ml BID IVF 04/11/16 21:00 06/28/16 09:16 Ondansetron HCl (Zofran Inj) 4 mg Q6H PRN IV NAUSEA OR VOMITING 04/11/16 13:30 05/20/16 04:01 Miscellaneous Information 1 Q361D XX 04/11/16 13:30 Chlorhexidine Gluconate (Chlorhexidine 2% Cloth) 3 pack Taper DAILY@04 TOP 04/12/16 04:00 04/08/17 03:59 06/29/16 04:00 Chlorhexidine Gluconate (Chlorhexidine 2% Cloth) 3 pack UNSCH PRN [facility] 04/11/16 13:30 Acetaminophen (Tylenol 650 Mg/ 20 ml Liq) 650 mg Q4H PRN PO Temp > 100. 04/11/16 16:30 05/07/16 01:52 Labetalol HCl (Trandate Inj) 20 mg Q4H PRN IVS SBP > 160 04/25/16 00:30 05/16/16 10:20 Amlodipine Besylate (Norvasc) 10 mg DAILY PO 05/13/16 09:00 06/29/16 11:06 Acetaminophen/ Hydrocodone Bitart ([place] 5-325 Mg) 1 tab Q6H PRN PO PAIN SCALE 1 TO 5 05/12/16 10:15 06/25/16 22:00 Acetaminophen/ Hydrocodone Bitart ([place] 5-325 Mg) 2 tab Q6H PRN PO PAIN SCALE 6 TO 10 05/12/16 10:15 06/28/16 21:36 Morphine Sulfate (Morphine Inj) 2 mg Q2HR PRN IV PUSH PAIN SCALE 1 TO 5 05/12/16 10:15 05/14/16 12:06 Morphine Sulfate (Morphine Inj) 4 mg Q4HR PRN IV PUSH PAIN SCALE 6 TO 10 05/12/16 10:15 05/20/16 04:01 Enoxaparin Sodium (Lovenox Inj) 40 mg Q24H SQ 05/13/16 09:00 06/29/16 11:06 Hydrochlorothiazide (Hydrodiuril) 25 mg DAILY PO 05/16/16 10:00 06/29/16 11:06 Hydralazine HCl (Apresoline Inj) 20 mg Q4H PRN IV PUSH SYS BP GREATER THAN 180 MMHG 05/17/16 14:00 05/19/16 12:57 Hydralazine HCl (Apresoline) 75 mg Q8HR TUBE 05/18/16 22:00 06/29/16 05:41 Labetalol HCl (Trandate) 300 mg Q8HR PO 05/18/16 22:00 06/29/16 05:41 Famotidine (Pepcid) 20 mg BID PO 05/25/16 21:00 06/29/16 11:06 Quetiapine Fumarate (SEROquel) 25 mg BID PO 06/26/16 09:00 06/29/16 11:06 (Rosa Maria Ellington) Medical Decision Making MDM Remarks 46 y/o female with SAH from ruptured ICA aneurysm s/p coiling left MCA aneurysm s/p decompressive left craniectomy s/p placement of TURBINATED BONE GRINDER shunt 05/07/16 (Rosa Maria Ellington) Plan Plan Remarks neuro exam stable cont current care cont therapy awaiting placement, dc when bed available (Rosa Maria Ellington) Attending Statement The exam, history, and the medical decision-making described in the above note were completed with the assistance of the mid-level provider. I reviewed and agree with the findings presented. I attest that I had a [id number] encounter with the patient on the same day, and personally performed and documented my assessment and findings in the medical record. (Ty Miranda MD) Rosa Maria Ellington Jun 29, 2016 11:15 Ty Miranda MD Jun 29, 2016 19:45
--- NOTE | 2016-06-29 11:35 | HHI.PR ---
Subjective Remarks Patient is awake. Follow some commands. Objective Vitals Vital Signs Date Time Temp Pulse Resp B/P Pulse Ox O2 Delivery O2 Flow Rate FiO2 06/29/16 09:16 96.4 90 17 124/68 97 06/29/16 08:22 97 T-piece 6.00 21 06/29/16 04:07 96.4 83 18 114/82 100 06/29/16 00:07 97.9 78 20 107/70 100 06/28/16 20:07 97.4 77 20 110/68 100 06/28/16 18:28 T-piece 21 06/28/16 16:00 96.5 71 20 107/68 100 06/28/16 12:00 95.6 79 20 132/84 98 I/O 06/28/16 06/28/16 06/28/16 06/29/16 06/29/16 06/29/16 07:00 15:00 23:00 07:00 15:00 23:00 Intake Total 0 ml 0 ml Balance 0 ml 0 ml Intake Oral 0 ml 0 ml # Voids 1 5 1 # Bowel Movements 1 0 1 Result Diagram: 06/27/1652906/27/16529 Objective Remarks GENERAL: Patient is awake, follows some commands HEAD: Normocephalic. Tongue edema present and protruded. CARDIOVASCULAR: Regular rate and rhythm without murmurs, gallops, or rubs. RESPIRATORY: Breath sounds equal bilaterally. No accessory muscle use. GASTROINTESTINAL: Abdomen soft, non-tender, nondistended. MUSCULOSKELETAL: No cyanosis, or edema. BACK: Nontender without obvious deformity. No CVA tenderness. NEURO: Awake. Follow some commands. 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 Patient was found to have shallow breathing and [place] Coma Scale of 3 at the time the paramedics found her. ED workup indicated significantly elevated systolic blood pressure around 290 and imaging studies showed a large left hemispheric intra-parenchymal hemorrhage with subarachnoid blood. 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 Patient was valuated by neurosurgery and was managed in the ICU until 05/17/2016. Patient underwent endovascular coiling of MCA by interventional radiology on 04/11/2016. During this admission patient also underwent tracheostomy, PEG tube placement, AUTOMOBILE DESIGNER shunt placement. She also underwent a tongue laceration repair and upper teeth extraction on 05/16/2016. - Acute subarachnoid hemorrhage - Left middle cerebral artery aneurysm - Large left frontal hemorrhage with intracranial hypertension - s/p endovascular coiling of MCA ruptured cerebral aneurysm 04/11 - Family request aggressive care and Dr. Meléndez performed left decompressive craniotomy 04/25 with evacuation of temporal hematoma - Malignant hypertension - Severe LV concentric hypertrophy - s/p permissive Hypertension for prevention of vasospasm in SAH patient now targeting SBP < 160 - s/p 3 weeks of Nimotop therapy for vasospasm prevention - Continue Norvasc 10 q day, Labetalol 300 q 8 hours. HCTZ 25 mg daily, Hydralazine 75mg Q8hrs - Avoiding KISHA-I given severe tongue edema. - BP controlled. - Acute respiratory failure secondary to SAH/ICH - Severe tongue laceration. - s/p tracheostomy on 04/29/2016. Tongue laceration repair by Dr. Booth on . - Continue T-Piece, Duoneb, continue with mouth guard use. - Discussed with CM about possible LTC placement with trach facility if unable to wean. - Nutrition - Continue tube feed. - Restlessness/ agitation - continue Seroquel 25 mg twice a day which appears to be effective so far. Full code. Lovenox. Famotidine. Louise Jones MD Jun 29, 2016 11:35
[2016-06-29] MEDS: ACETAMINOPHEN/HYDROcodone 325 MG/5 MG TAB PO PRN ×2 (15:26→22:28)
[2016-06-30] VITALS (8 sets, daily range): BP systolic 99–164; BP diastolic 53–102; PULSE 60–91; RESP 18–22; TEMP 96.6–97.8; O2SAT 95–100
[2016-06-30] MEDS: CHLORHEXIDINE GLUCONATE 2 % 1 PACK (2 CLOTHS) TOP SCH (04:00)
[2016-06-30] MEDS: LABETALOL HCL 300 MG TAB PO SCH ×3 (06:08→23:43)
[2016-06-30] MEDS: hydrALAZINE HCL 25 MG TAB TUBE SCH ×3 (06:08→23:43)
[2016-06-30] MEDS: HYDROCHLOROTHIAZIDE 25 MG TAB PO SCH (09:00)
--- NOTE | 2016-06-30 10:41 | HHI.PR ---
Objective Vitals Vital Signs Date Time Temp Pulse Resp B/P Pulse Ox O2 Delivery O2 Flow Rate FiO2 06/30/16 08:00 96.6 60 18 103/53 95 06/30/16 04:07 97.2 77 18 116/79 100 06/30/16 00:08 97.8 82 18 104/72 100 06/29/16 20:08 97.2 77 18 116/79 100 06/29/16 17:45 95.9 76 18 104/70 99 06/29/16 17:37 97 T-piece 21 06/29/16 11:22 96.4 86 18 122/91 100 I/O 06/29/16 06/29/16 06/29/16 06/30/16 06/30/16 06/30/16 07:00 15:00 23:00 07:00 15:00 23:00 Intake Total 0 ml 513 ml 0 ml Balance 0 ml 513 ml 0 ml Intake Oral 0 ml 0 ml 0 ml Tube Feeding 453 ml Tube Irrigant 60 ml # Voids 1 3 1 1 # Bowel Movements 1 3 1 Result Diagram: 06/27/1630 06/27/16529 Objective Remarks GENERAL: Patient is awake, follows some commands HEAD: Normocephalic. Tongue edema present and protruded. CARDIOVASCULAR: Regular rate and rhythm without murmurs, gallops, or rubs. RESPIRATORY: Breath sounds equal bilaterally. No accessory muscle use. GASTROINTESTINAL: Abdomen soft, non-tender, nondistended. MUSCULOSKELETAL: No cyanosis, or edema. BACK: Nontender without obvious deformity. No CVA tenderness. NEURO: Awake. Follow some commands. 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 Patient was found to have shallow breathing and [place] Coma Scale of 3 at the time the paramedics found her. ED workup indicated significantly elevated systolic blood pressure around 290 and imaging studies showed a large left hemispheric intra-parenchymal hemorrhage with subarachnoid blood. 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 Patient was valuated by neurosurgery and was managed in the ICU until 05/17/2016. Patient underwent endovascular coiling of MCA by interventional radiology on 04/11/2016. During this admission patient also underwent tracheostomy, PEG tube placement, OPTICAL SALES ASSOCIATE shunt placement. She also underwent a tongue laceration repair and upper teeth extraction on 05/16/2016. - Acute subarachnoid hemorrhage - Left middle cerebral artery aneurysm - Large left frontal hemorrhage with intracranial hypertension - s/p endovascular coiling of MCA ruptured cerebral aneurysm 04/11 - Family request aggressive care and Dr. Meléndez performed left decompressive craniotomy 04/25 with evacuation of temporal hematoma - Malignant hypertension - Severe LV concentric hypertrophy - s/p permissive Hypertension for prevention of vasospasm in SAH patient now targeting SBP < 160 - s/p 3 weeks of Nimotop therapy for vasospasm prevention - Continue Norvasc 10 q day, Labetalol 300 q 8 hours. HCTZ 25 mg daily, Hydralazine 75mg Q8hrs - Avoiding KISHA-I given severe tongue edema. - BP controlled. - Acute respiratory failure secondary to SAH/ICH - Severe tongue laceration. - s/p tracheostomy on 04/29/2016. Tongue laceration repair by Dr. Booth on . - Continue T-Piece, Duoneb, continue with mouth guard use. - Discussed with CM about possible LTC placement with trach facility if unable to wean. - Nutrition - Continue tube feed. - Restlessness/ agitation - continue Seroquel 25 mg twice a day which appears to be effective so far. Full code. Lovenox. Famotidine. Louise Jones MD Jun 30, 2016 10:41
[2016-06-30] MEDS: ENOXAPARIN SODIUM 40 MG/0.4 ML SYRINGE SQ SCH (10:47)
[2016-06-30] MEDS: FAMOTIDINE 20 MG TAB PO SCH ×2 (10:49→21:32)
[2016-06-30] MEDS: QUEtiapine FUMARATE 25 MG TAB PO SCH ×2 (10:49→21:32)
--- NOTE | 2016-06-30 14:19 | HHI.PR ---
Subjective Remarks Patient seen working with PT. She is following commands. Objective Vitals Vital Signs Date Time Temp Pulse Resp B/P Pulse Ox O2 Delivery O2 Flow Rate FiO2 06/30/16 12:00 97.6 86 22 103/71 99 06/30/16 09:00 98 T-piece 6.00 21 06/30/16 08:00 96.6 60 18 103/53 95 06/30/16 04:07 97.2 77 18 116/79 100 06/30/16 00:08 97.8 82 18 104/72 100 06/29/16 20:08 97.2 77 18 116/79 100 06/29/16 17:45 95.9 76 18 104/70 99 06/29/16 17:37 97 T-piece 21 I/O 06/29/16 06/29/16 06/29/16 06/30/16 06/30/16 06/30/16 07:00 15:00 23:00 07:00 15:00 23:00 Intake Total 0 ml 513 ml 0 ml Balance 0 ml 513 ml 0 ml Intake Oral 0 ml 0 ml 0 ml Tube Feeding 453 ml Tube Irrigant 60 ml # Voids 1 3 1 1 # Bowel Movements 1 3 1 Result Diagram: 06/27/1652906/27/16529 Objective Remarks GENERAL: Patient is awake, follows some commands HEAD: Normocephalic. Tongue edema present and protruded. CARDIOVASCULAR: Regular rate and rhythm without murmurs, gallops, or rubs. RESPIRATORY: Breath sounds equal bilaterally. No accessory muscle use. GASTROINTESTINAL: Abdomen soft, non-tender, nondistended. MUSCULOSKELETAL: No cyanosis, or edema. BACK: Nontender without obvious deformity. No CVA tenderness. NEURO: Awake. Follow commands. 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 Patient was found to have shallow breathing and [place] Coma Scale of 3 at the time the paramedics found her. ED workup indicated significantly elevated systolic blood pressure around 290 and imaging studies showed a large left hemispheric intra-parenchymal hemorrhage with subarachnoid blood. 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 Patient was valuated by neurosurgery and was managed in the ICU until 05/17/2016. Patient underwent endovascular coiling of MCA by interventional radiology on 04/11/2016. During this admission patient also underwent tracheostomy, PEG tube placement, ADMITTING INTERVIEWER shunt placement. She also underwent a tongue laceration repair and upper teeth extraction on 05/16/2016. - Acute subarachnoid hemorrhage - Left middle cerebral artery aneurysm - Large left frontal hemorrhage with intracranial hypertension - s/p endovascular coiling of MCA ruptured cerebral aneurysm 04/11 - Family request aggressive care and Dr. Meléndez performed left decompressive craniotomy 04/25 with evacuation of temporal hematoma - Patient appear to be improving from a neuro standpoint. - Malignant hypertension - Severe LV concentric hypertrophy - s/p permissive Hypertension for prevention of vasospasm in SAH patient now targeting SBP < 160 - s/p 3 weeks of Nimotop therapy for vasospasm prevention - Continue Norvasc 10 q day, Labetalol 300 q 8 hours. HCTZ 25 mg daily, Hydralazine 75mg Q8hrs - Avoiding KISHA-I given severe tongue edema. - BP controlled. - Acute respiratory failure secondary to SAH/ICH - Severe tongue laceration. - s/p tracheostomy on 04/29/2016. Tongue laceration repair by Dr. Booth on . - Continue T-Piece, Duoneb, continue with mouth guard use. - Discussed with CM about possible LTC placement with trach facility if unable to wean. - Nutrition - Continue tube feed. - Restlessness/ agitation -Resolving. continue Seroquel 25 mg twice a day which appears to be effective so far. Full code. Lovenox. Famotidine. Louise Jones MD Jun 30, 2016 14:19
--- NOTE | 2016-06-30 18:05 | HHI.NSPN ---
History Chief Complaint: nonverbal. SAH s/p aneurysm coiling. Interval History 04/12/16: Patient had an aneurysm coiled 04/11/2016, intubated and sedated, ICP stable overnight 04/29/2016: Tracheostomy and PEG placement 06/03/16: Remains awake, primarily left lateral gaze. Grasp with left hand, not definitely to command. Exam Results Vital Signs Date Time Temp Pulse Resp B/P Pulse Ox O2 Delivery O2 Flow Rate FiO2 06/30/16 16:00 97.6 62 22 99/59 98 06/30/16 09:00 T-piece 6.00 21 Intake and Output 06/29/16 06/29/16 06/29/16 07:59 15:59 23:59 Intake Total 0 ml 513 ml 0 ml Balance 0 ml 513 ml 0 ml Physical Examination Awake, alert. Nods to questions, and follows simple commands. CN: Pupils equal, tracks with grossly intact EOMs. Right CURRICULUM DIRECTOR shunt seen Neck: tracheostomy Motor: moves all four extremities grossly to commands Medical Decision Making Impression and Plan Impression: 1. Stable neurologic function over the past week. Plan: Continuing tube feedings for nutrition Wound care nurse evaluation for lumbosacral skin breakdown. Continuing decubitus precautions Tracheostomy care Continuing therapy Case management following Bite-block in place for tongue laceration-edema improving She will need discharge to rehabilitation if arrangements can be made. Sherwin Meléndez MD Jun 30, 2016 18:04
[2016-06-30] MEDS: SODIUM CHLORIDE 0.9% FLUSH 5 ML FLUSH IVF SCH (21:00)
[2016-07-01] VITALS (7 sets, daily range): BP systolic 107–147; BP diastolic 70–106; PULSE 90–104; RESP 18–20; TEMP 95.7–98.4; O2SAT 96–100
[2016-07-01] MEDS: CHLORHEXIDINE GLUCONATE 2 % 1 PACK (2 CLOTHS) TOP SCH (04:00)
[2016-07-01] MEDS: LABETALOL HCL 300 MG TAB PO SCH ×3 (06:44→21:31)
[2016-07-01] MEDS: hydrALAZINE HCL 25 MG TAB TUBE SCH ×3 (06:44→21:30)
[2016-07-01] MEDS: FAMOTIDINE 20 MG TAB PO SCH ×2 (09:42→21:30)
[2016-07-01] MEDS: HYDROCHLOROTHIAZIDE 25 MG TAB PO SCH (09:42)
[2016-07-01] MEDS: QUEtiapine FUMARATE 25 MG TAB PO SCH ×2 (09:42→21:30)
[2016-07-01] MEDS: ENOXAPARIN SODIUM 40 MG/0.4 ML SYRINGE SQ SCH (09:42)
--- NOTE | 2016-07-01 14:29 | HHI.PR ---
Subjective Remarks No change in clinical status. No acute events overnight. Objective Vitals Vital Signs Date Time Temp Pulse Resp B/P Pulse Ox O2 Delivery O2 Flow Rate FiO2 07/01/16 12:00 97.3 104 20 127/106 96 07/01/16 08:00 95.7 99 20 130/75 96 07/01/16 07:00 Trach Collar 5.00 21 T-Piece Humidified 07/01/16 04:00 96.3 93 18 146/93 96 07/01/16 01:00 97.7 90 18 147/81 97 06/30/16 21:00 91 159/102 06/30/16 20:00 97.0 86 18 164/93 96 06/30/16 16:00 97.6 62 22 99/59 98 Result Diagram: 06/27/1652906/27/16529 Objective Remarks GENERAL: Patient is awake, follows some commands HEAD: Normocephalic. Tongue edema present and protruded. CARDIOVASCULAR: Regular rate and rhythm without murmurs, gallops, or rubs. RESPIRATORY: Breath sounds equal bilaterally. No accessory muscle use. GASTROINTESTINAL: Abdomen soft, non-tender, nondistended. MUSCULOSKELETAL: No cyanosis, or edema. BACK: Nontender without obvious deformity. No CVA tenderness. NEURO: Awake. Follow commands. 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 Patient was found to have shallow breathing and [place] Coma Scale of 3 at the time the paramedics found her. ED workup indicated significantly elevated systolic blood pressure around 290 and imaging studies showed a large left hemispheric intra-parenchymal hemorrhage with subarachnoid blood. 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 Patient was valuated by neurosurgery and was managed in the ICU until 05/17/2016. Patient underwent endovascular coiling of MCA by interventional radiology on 04/11/2016. During this admission patient also underwent tracheostomy, PEG tube placement, BEEF TAGGER shunt placement. She also underwent a tongue laceration repair and upper teeth extraction on 05/16/2016. - Acute subarachnoid hemorrhage - Left middle cerebral artery aneurysm - Large left frontal hemorrhage with intracranial hypertension - s/p endovascular coiling of MCA ruptured cerebral aneurysm 04/11 - Family request aggressive care and Dr. Meléndez performed left decompressive craniotomy 04/25 with evacuation of temporal hematoma - Patient appear to be improving from a neuro standpoint. - Malignant hypertension - Severe LV concentric hypertrophy - s/p permissive Hypertension for prevention of vasospasm in SAH patient now targeting SBP < 160 - s/p 3 weeks of Nimotop therapy for vasospasm prevention - Continue Norvasc 10 q day, Labetalol 300 q 8 hours. HCTZ 25 mg daily, Hydralazine 75mg Q8hrs - Avoiding KISHA-I given severe tongue edema. - BP controlled. - Acute respiratory failure secondary to SAH/ICH - Severe tongue laceration. - s/p tracheostomy on 04/29/2016. Tongue laceration repair by Dr. Booth on . - Continue T-Piece, Duoneb, continue with mouth guard use. - Discussed with CM about possible LTC placement with [facility] facility if unable to wean. - Nutrition - Continue tube feed. - Restlessness/ agitation -Resolving. continue Seroquel 25 mg twice a day which appears to be effective so far. Full code. Lovenox. Famotidine. Louise Jones MD Jul 01, 2016 14:29
[2016-07-01] MEDS: SODIUM CHLORIDE 0.9% FLUSH 5 ML FLUSH IVF SCH (21:00)
[2016-07-02] VITALS (7 sets, daily range): BP systolic 103–148; BP diastolic 69–97; PULSE 84–97; RESP 18–20; TEMP 97–98.6; O2SAT 97–100
[2016-07-02] MEDS: CHLORHEXIDINE GLUCONATE 2 % 1 PACK (2 CLOTHS) TOP SCH ×2 (04:00→23:03)
[2016-07-02] MEDS: hydrALAZINE HCL 25 MG TAB TUBE SCH ×3 (05:50→22:00)
[2016-07-02] MEDS: LABETALOL HCL 300 MG TAB PO SCH ×3 (05:51→23:03)
[2016-07-02] MEDS: SODIUM CHLORIDE 0.9% FLUSH 5 ML FLUSH IVF SCH ×2 (09:00→21:00)
[2016-07-02] MEDS: HYDROCHLOROTHIAZIDE 25 MG TAB PO SCH (09:00)
[2016-07-02] MEDS: QUEtiapine FUMARATE 25 MG TAB PO SCH ×2 (09:51→23:02)
[2016-07-02] MEDS: FAMOTIDINE 20 MG TAB PO SCH ×2 (09:51→23:01)
[2016-07-02] MEDS: ENOXAPARIN SODIUM 40 MG/0.4 ML SYRINGE SQ SCH (09:51)
--- NOTE | 2016-07-02 15:33 | HHI.PR ---
Subjective Remarks Patient indicated that she was feeling okay by shaking her head. She is interactive. Objective Vitals Vital Signs Date Time Temp Pulse Resp B/P Pulse Ox O2 Delivery O2 Flow Rate FiO2 07/02/16 12:00 97.9 89 18 106/73 100 07/02/16 08:00 98.1 97 18 110/73 100 07/02/16 04:00 97.3 91 18 148/94 100 07/02/16 00:59 Trach Collar 5.00 21 T-Piece Humidified 07/02/16 00:17 97.2 87 18 145/97 97 07/01/16 20:00 98.4 93 20 138/76 100 07/01/16 18:16 99 T-piece 6.00 21 07/01/16 16:00 97.9 98 20 107/70 99 I/O 07/01/16 07/01/16 07/01/16 07/02/16 07/02/16 07/02/16 07:00 15:00 23:00 07:00 15:00 23:00 Intake Total 208 ml Output Total 1 ml Balance 207 ml Tube Feeding 168 ml Tube Irrigant 40 ml Stool Total 1 ml # Voids 2 4 4 2 # Bowel Movements 2 2 Objective Remarks GENERAL: Patient is awake, follows some commands HEAD: Normocephalic. Tongue edema present and protruded. CARDIOVASCULAR: Regular rate and rhythm without murmurs, gallops, or rubs. RESPIRATORY: Breath sounds equal bilaterally. No accessory muscle use. GASTROINTESTINAL: Abdomen soft, non-tender, nondistended. MUSCULOSKELETAL: No cyanosis, or edema. BACK: Nontender without obvious deformity. No CVA tenderness. NEURO: Awake. Follow commands. 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 Patient was found to have shallow breathing and [place] Coma Scale of 3 at the time the paramedics found her. ED workup indicated significantly elevated systolic blood pressure around 290 and imaging studies showed a large left hemispheric intra-parenchymal hemorrhage with subarachnoid blood. 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 Patient was valuated by neurosurgery and was managed in the ICU until 05/17/2016. Patient underwent endovascular coiling of MCA by interventional radiology on 04/11/2016. During this admission patient also underwent tracheostomy, PEG tube placement, HOME SUPPORT WORKER shunt placement. She also underwent a tongue laceration repair and upper teeth extraction on 05/16/2016. - Acute subarachnoid hemorrhage - Left middle cerebral artery aneurysm - Large left frontal hemorrhage with intracranial hypertension - s/p endovascular coiling of MCA ruptured cerebral aneurysm 04/11 - Family request aggressive care and Dr. Meléndez performed left decompressive craniotomy 04/25 with evacuation of temporal hematoma - Patient appear to be improving from a neuro standpoint. - Malignant hypertension - Severe LV concentric hypertrophy - s/p permissive Hypertension for prevention of vasospasm in SAH patient now targeting SBP < 160 - s/p 3 weeks of Nimotop therapy for vasospasm prevention - Continue Norvasc 10 q day, Labetalol 300 q 8 hours. HCTZ 25 mg daily, Hydralazine 75mg Q8hrs - Avoiding KISHA-I given severe tongue edema. - BP now controlled. - Acute respiratory failure secondary to SAH/ICH - Severe tongue laceration. - s/p tracheostomy on 04/29/2016. Tongue laceration repair by Dr. Booth on . - Continue T-Piece, Duoneb, continue with mouth guard use. - Discussed with CM about possible LTC placement with trach facility if unable to wean. - Nutrition - Continue tube feed. - Restlessness/ agitation -Resolving. continue Seroquel 25 mg twice a day which appears to be effective so far. Full code. Lovenox. Famotidine. Louise Jones MD Jul 02, 2016 15:32
--- NOTE | 2016-07-02 19:43 | HHI.NSPN ---
History Chief Complaint: nonverbal. SAH s/p aneurysm coiling. Interval History 04/12/16: Patient had an aneurysm coiled 04/11/2016, intubated and sedated, ICP stable overnight 04/29/2016: Tracheostomy and PEG placement 06/03/16: Remains awake, primarily left lateral gaze. Grasp with left hand, not definitely to command. Exam Results Vital Signs Date Time Temp Pulse Resp B/P Pulse Ox O2 Delivery O2 Flow Rate FiO2 07/02/16 17:37 6.00 21 07/02/16 16:00 100 Trach Collar T-Piece Humidified 07/02/16 16:00 97.0 84 18 103/69 Intake and Output 07/01/16 07/01/16 07/02/16 08:00 16:00 00:00 Intake Total 208 ml Output Total 1 ml Balance 207 ml Physical Examination A little more lethargic this morning. Mild eye-opening to voice. Mild grasp to command. CN: Pupils equal, tracks with grossly intact EOMs. Right SERVICE GIRL shunt seen Neck: tracheostomy Respirations clear to auscultation Cardiac exam reveals regular rhythm, 2/6 systolic murmur Medical Decision Making Impression and Plan Impression: 1. Stable neurologic function over the past week. Plan: Echocardiogram requested due to new cardiac murmur noted on examination today. Continuing tube feedings for nutrition Wound care nurse evaluation for lumbosacral skin breakdown. Continuing decubitus precautions Tracheostomy care Continuing therapy Case management following Bite-block in place for tongue laceration-edema improving She will need discharge to rehabilitation if arrangements can be made. Sherwin Meléndez MD Jul 02, 2016 19:43
[2016-07-02] MEDS: ACETAMINOPHEN/HYDROcodone 325 MG/5 MG TAB PO PRN (23:02)
[2016-07-03] VITALS (7 sets, daily range): BP systolic 115–132; BP diastolic 77–84; PULSE 65–94; RESP 14–20; TEMP 95.2–97; O2SAT 96–100
[2016-07-03] MEDS: ACETAMINOPHEN/HYDROcodone 325 MG/5 MG TAB PO PRN (04:54)
[2016-07-03] MEDS: hydrALAZINE HCL 25 MG TAB TUBE SCH ×3 (06:00→22:00)
[2016-07-03] MEDS: LABETALOL HCL 300 MG TAB PO SCH ×3 (06:18→22:00)
[2016-07-03] MEDS: SODIUM CHLORIDE 0.9% FLUSH 5 ML FLUSH IVF SCH ×2 (08:58→21:00)
[2016-07-03] MEDS: HYDROCHLOROTHIAZIDE 25 MG TAB PO SCH (09:00)
[2016-07-03] MEDS: FAMOTIDINE 20 MG TAB PO SCH ×2 (09:05→22:00)
[2016-07-03] MEDS: QUEtiapine FUMARATE 25 MG TAB PO SCH ×2 (09:05→22:00)
[2016-07-03] MEDS: ENOXAPARIN SODIUM 40 MG/0.4 ML SYRINGE SQ SCH (09:05)
--- NOTE | 2016-07-03 13:29 | HHI.PR ---
Subjective Remarks Patient seen sitting up in the chair. No new complaints. She is following commands. Objective Vitals Vital Signs Date Time Temp Pulse Resp B/P Pulse Ox O2 Delivery O2 Flow Rate FiO2 07/03/16 12:00 96.1 75 18 115/84 98 07/03/16 09:08 96 T-piece 21 07/03/16 08:00 96.7 65 18 127/82 96 07/03/16 06:18 20 07/03/16 04:00 97.0 72 20 124/77 100 07/03/16 01:05 16 07/03/16 00:13 97.0 86 19 132/78 100 07/02/16 20:47 98.6 84 20 117/75 99 07/02/16 17:37 6.00 21 07/02/16 16:00 100 Trach Collar 5.00 35 T-Piece Humidified 07/02/16 16:00 97.0 84 18 103/69 100 I/O 07/02/16 07/02/16 07/02/16 07/03/16 07/03/16 07/03/16 06:59 14:59 22:59 06:59 14:59 22:59 # Voids 2 4 1 2 # Bowel Movements 2 0 0 Objective Remarks GENERAL: Patient is awake, follows some commands HEAD: Normocephalic. Tongue edema present and protruded. CARDIOVASCULAR: Regular rate. 2/6 HEMALATHA murmur best heard left upper sternal border RESPIRATORY: Breath sounds equal bilaterally. No accessory muscle use. GASTROINTESTINAL: Abdomen soft, non-tender, nondistended. MUSCULOSKELETAL: No cyanosis, or edema. NEURO: Awake. Follow commands. 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 Patient was found to have shallow breathing and [place] Coma Scale of 3 at the time the paramedics found her. ED workup indicated significantly elevated systolic blood pressure around 290 and imaging studies showed a large left hemispheric intra-parenchymal hemorrhage with subarachnoid blood. 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 Patient was valuated by neurosurgery and was managed in the ICU until 05/17/2016. Patient underwent endovascular coiling of MCA by interventional radiology on 04/11/2016. During this admission patient also underwent tracheostomy, PEG tube placement, JUDGE shunt placement. She also underwent a tongue laceration repair and upper teeth extraction on 05/16/2016. - Acute subarachnoid hemorrhage - Left middle cerebral artery aneurysm - Large left frontal hemorrhage with intracranial hypertension - s/p endovascular coiling of MCA ruptured cerebral aneurysm 04/11 - Family request aggressive care and Dr. Meléndez performed left decompressive craniotomy 04/25 with evacuation of temporal hematoma - Patient appear to be improving from a neuro standpoint. - Malignant hypertension - Severe LV concentric hypertrophy - New Heart murmur - s/p permissive Hypertension for prevention of vasospasm in SAH patient now targeting SBP < 160 - s/p 3 weeks of Nimotop therapy for vasospasm prevention - Continue Norvasc 10 q day, Labetalol 300 q 8 hours. HCTZ 25 mg daily, Hydralazine 75mg Q8hrs - Avoiding KISHA-I given severe tongue edema. - BP now controlled. - 2D echo per neurosurgery for heart murmur. - Acute respiratory failure secondary to SAH/ICH - Severe tongue laceration. - s/p tracheostomy on 04/29/2016. Tongue laceration repair by Dr. Booth on . - Continue T-Piece, Duoneb, continue with mouth guard use. - Discussed with CM about possible LTC placement with trach facility if unable to wean. - Nutrition - Continue tube feed. - Restlessness/ agitation -Resolving. continue Seroquel 25 mg twice a day which appears to be effective so far. Full code. Lovenox. Famotidine. Louise Jones MD Jul 03, 2016 13:29
--- NOTE | 2016-07-03 16:23 | EC ---
Study Study Date:07/03/2016 STUDY CONCLUSIONS SUMMARY - Left ventricle: The cavity size was normal. Wall thickness was increased in a pattern of severe LVH. There was concentric hypertrophy, consistent with hypertrophic cardiomyopathy. Systolic function was hyperdynamic by visual assessment. The estimated ejection fraction was in the range of 70% to 75%. There was dynamic obstruction. There was dynamic obstruction at rest in the outflow tract, with a peak gradient of 71mm Hg and a mean gradient of 39mm Hg. Wall motion was normal; there were no regional wall motion abnormalities. - Ventricular septum: Thickness was severely increased. - Aortic valve: Mild regurgitation. - Mitral valve: There was systolic anterior motion. Moderate regurgitation. - Tricuspid valve: Mild regurgitation. If LV function is below 40, please consider prescribing an ACEI or ARB or document rationale for non-use. PROCEDURE DATA STUDY STATUS: Elective. Procedure: Transthoracic echocardiography. Image quality was good. Scanning was performed from the parasternal, apical, and subcostal acoustic windows. Study completion: The patient tolerated the procedure well. Transthoracic echocardiography. M-mode, complete 2D, complete spectral Doppler, and color Doppler. Patient status: Inpatient. CARDIAC ANATOMY LEFT VENTRICLE: The cavity size was normal. Wall thickness was increased in a pattern of severe LVH. There was concentric hypertrophy, consistent with hypertrophic cardiomyopathy. Systolic function was hyperdynamic by visual assessment. The estimated ejection fraction was in the range of 70% to 75%. There was dynamic obstruction. There was dynamic obstruction at rest in the outflow tract, with a peak gradient of 71mm Hg and a mean gradient of 39mm Hg. Wall motion was normal; there were no regional wall motion abnormalities. AORTIC VALVE: Trileaflet; normal thickness leaflets. Doppler: Transvalvular velocity was within the normal range. There was no stenosis. Mild regurgitation. AORTA: Aortic root: The aortic root was normal in size. MITRAL VALVE: Structurally normal valve. There was systolic anterior motion. Doppler: Transvalvular velocity was within the normal range. There was no evidence for stenosis. Moderate regurgitation. LEFT ATRIUM: The atrium was normal in size. RIGHT VENTRICLE: The cavity size was normal. Wall thickness was normal. VENTRICULAR SEPTUM: Thickness was severely increased. PULMONIC VALVE: Doppler: Transvalvular velocity was within the normal range. There was no evidence for stenosis. No regurgitation. TRICUSPID VALVE: Structurally normal valve. Doppler: Transvalvular velocity was within the normal range. Mild regurgitation. PULMONARY ARTERY: The main pulmonary artery was normal-sized. Systolic pressure was within the normal range. RIGHT ATRIUM: The atrium was normal in size. PERICARDIUM: There was no pericardial effusion. SYSTEMIC VEINS: Inferior vena cava: The vessel was normal in size. Prepared and signed by Sunny Platt [id number]
--- NOTE | 2016-07-03 19:32 | HHI.NSPN ---
History Chief Complaint: nonverbal. SAH s/p aneurysm coiling. Interval History 04/12/16: Patient had an aneurysm coiled 04/11/2016, intubated and sedated, ICP stable overnight 04/29/2016: Tracheostomy and PEG placement 06/03/16: Remains awake, primarily left lateral gaze. Grasp with left hand, not definitely to command. Exam Results Vital Signs Date Time Temp Pulse Resp B/P Pulse Ox O2 Delivery O2 Flow Rate FiO2 07/03/16 16:00 96.3 77 18 123/80 98 07/03/16 09:08 T-piece 21 07/02/16 17:37 6.00 Physical Examination Awake and alert Follows commands relatively well today Moderate grasp to command. CN: Pupils equal, tracks with grossly intact EOMs. Right HEAD FIELD HOCKEY COACH shunt tract without edema Neck: tracheostomy Respirations clear to auscultation Cardiac exam reveals regular rhythm, 3/6 systolic murmur Abdomen soft without obvious tenderness Lab, Micro, Other Results Echocardiogram results noted. Appears relatively stable compared to prior study except possible mild increased mitral regurgitation. Medical Decision Making Impression and Plan Impression: 1. Stable neurologic function over the past week. Plan: Continuing tube feedings for nutrition Wound care nurse evaluation for lumbosacral skin breakdown. Continuing decubitus precautions Tracheostomy care Continuing therapy Case management following Bite-block in place for tongue laceration-edema improving She will need discharge to rehabilitation if arrangements can be made. Sherwin Meléndez MD Jul 03, 2016 19:32
[2016-07-04] VITALS (9 sets, daily range): BP systolic 107–144; BP diastolic 72–91; PULSE 75–108; RESP 16–20; TEMP 96.1–98.7; O2SAT 81–100
[2016-07-04] MEDS: CHLORHEXIDINE GLUCONATE 2 % 1 PACK (2 CLOTHS) TOP SCH (04:00)
[2016-07-04] MEDS: hydrALAZINE HCL 25 MG TAB TUBE SCH ×3 (05:10→21:27)
[2016-07-04] MEDS: LABETALOL HCL 300 MG TAB PO SCH ×3 (06:19→21:27)
[2016-07-04] MEDS: SODIUM CHLORIDE 0.9% FLUSH 5 ML FLUSH IVF SCH ×2 (09:00→21:00)
[2016-07-04] MEDS: FAMOTIDINE 20 MG TAB PO SCH ×2 (10:07→21:27)
[2016-07-04] MEDS: ENOXAPARIN SODIUM 40 MG/0.4 ML SYRINGE SQ SCH (10:07)
[2016-07-04] MEDS: HYDROCHLOROTHIAZIDE 25 MG TAB PO SCH (10:07)
[2016-07-04] MEDS: QUEtiapine FUMARATE 25 MG TAB PO SCH ×2 (10:08→21:27)
--- NOTE | 2016-07-04 16:09 | HHI.PR ---
Subjective Remarks No acute changes overnight. Patient is awake and alert. Objective Vitals Vital Signs Date Time Temp Pulse Resp B/P Pulse Ox O2 Delivery O2 Flow Rate FiO2 07/04/16 12:48 97.6 77 20 133/90 100 07/04/16 11:13 98 T-tube 5.00 07/04/16 09:54 98 Humidified 5.00 35 07/04/16 08:37 97.6 76 20 144/82 99 07/04/16 05:05 Room Air T-Piece Humidified 07/04/16 04:00 96.8 84 16 113/72 100 07/04/16 00:24 98 T-piece 21 07/04/16 00:00 96.1 81 16 109/73 100 07/03/16 20:00 95.2 94 14 122/82 97 I/O 07/03/16 07/03/16 07/03/16 07/04/16 07/04/16 07/04/16 07:00 15:00 23:00 07:00 15:00 23:00 Intake Total 1328 ml 535 ml Output Total 2 ml Balance 1328 ml 533 ml Tube Feeding 1108 ml 335 ml Other 220 ml 200 ml Stool Total 2 ml # Voids 2 2 3 # Bowel Movements 0 Objective Remarks GENERAL: Patient is awake, follows some commands HEAD: Normocephalic. Tongue edema present and protruded. CARDIOVASCULAR: Regular rate. 2/6 HEMALATHA murmur best heard left upper sternal border RESPIRATORY: Breath sounds equal bilaterally. No accessory muscle use. GASTROINTESTINAL: Abdomen soft, non-tender, nondistended. MUSCULOSKELETAL: No cyanosis, or edema. NEURO: Awake. Follow commands. 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 Patient was found to have shallow breathing and [place] Coma Scale of 3 at the time the paramedics found her. ED workup indicated significantly elevated systolic blood pressure around 290 and imaging studies showed a large left hemispheric intra-parenchymal hemorrhage with subarachnoid blood. 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 Patient was valuated by neurosurgery and was managed in the ICU until 05/17/2016. Patient underwent endovascular coiling of MCA by interventional radiology on 04/11/2016. During this admission patient also underwent tracheostomy, PEG tube placement, HEALTH EQUIPMENT SERVICER shunt placement. She also underwent a tongue laceration repair and upper teeth extraction on 05/16/2016. - Acute subarachnoid hemorrhage - Left middle cerebral artery aneurysm - Large left frontal hemorrhage with intracranial hypertension - s/p endovascular coiling of MCA ruptured cerebral aneurysm 04/11 - Family request aggressive care and Dr. Meléndez performed left decompressive craniotomy 04/25 with evacuation of temporal hematoma - Patient appear to be improving from a neuro standpoint. - Malignant hypertension - Severe LV concentric hypertrophy - New Heart murmur - s/p permissive Hypertension for prevention of vasospasm in SAH patient now targeting SBP < 160 - s/p 3 weeks of Nimotop therapy for vasospasm prevention - Continue Norvasc 10 q day, Labetalol 300 q 8 hours.Hydralazine 75mg Q8hrs - Avoiding KISHA-I given severe tongue edema. - BP now controlled. - 2D echo noted. Showed concentric hypertrophic cardiomyopathy. Not significantly changed compared to prior. May need cardiology evaluation if she becomes symptomatic. Meanwhile will discontinue the diuretic. BP is stable. - Acute respiratory failure secondary to SAH/ICH - Severe tongue laceration. - s/p tracheostomy on 04/29/2016. Tongue laceration repair by Dr. Booth on . - Continue T-Piece, Duoneb, continue with mouth guard use. - Case management working on long-term care placement. - Nutrition - Continue tube feed. - Restlessness/ agitation -Resolving. continue Seroquel 25 mg twice a day which appears to be effective so far. Full code. Lovenox. Famotidine. Louise Jones MD Jul 04, 2016 16:09
--- NOTE | 2016-07-04 20:12 | HHI.NSPN ---
History Chief Complaint: nonverbal. SAH s/p aneurysm coiling. Interval History 04/12/16: Patient had an aneurysm coiled 04/11/2016, intubated and sedated, ICP stable overnight 04/29/2016: Tracheostomy and PEG placement 06/03/16: Remains awake, primarily left lateral gaze. Grasp with left hand, not definitely to command. Exam Results Vital Signs Date Time Temp Pulse Resp B/P Pulse Ox O2 Delivery O2 Flow Rate FiO2 07/04/16 18:29 98 T-piece 6.00 21 07/04/16 16:00 98.7 75 20 107/73 Intake and Output 07/03/16 07/03/16 07/04/16 08:00 16:00 00:00 Intake Total 1328 ml Balance 1328 ml Physical Examination A little more lethargic again this morning Follows commands relatively well today Moderate grasp to command. CN: Pupils equal, tracks with grossly intact EOMs. Right ADULT PROTECTIVE CASEWORKER shunt tract without edema Neck: tracheostomy Respirations clear to auscultation Cardiac exam reveals regular rhythm, 3/6 systolic murmur Abdomen soft without obvious tenderness Medical Decision Making Impression and Plan Impression: 1. Stable neurologic function over the past week. Plan: Continuing tube feedings for nutrition Wound care nurse evaluation for lumbosacral skin breakdown. Continuing decubitus precautions Tracheostomy care Continuing therapy Case management following Bite-block in place for tongue laceration-edema improving She will need discharge to rehabilitation if arrangements can be made. Sherwin Meléndez MD Jul 04, 2016 20:12
[2016-07-05] VITALS (7 sets, daily range): BP systolic 106–146; BP diastolic 60–95; PULSE 75–93; RESP 14–22; TEMP 97–99; O2SAT 95–100
[2016-07-05] MEDS: CHLORHEXIDINE GLUCONATE 2 % 1 PACK (2 CLOTHS) TOP SCH (04:00)
[2016-07-05] MEDS: hydrALAZINE HCL 25 MG TAB TUBE SCH ×3 (06:18→22:18)
[2016-07-05] MEDS: LABETALOL HCL 300 MG TAB PO SCH ×3 (06:18→22:18)
[2016-07-05] MEDS: SODIUM CHLORIDE 0.9% FLUSH 5 ML FLUSH IVF SCH ×2 (09:00→21:00)
[2016-07-05] MEDS: FAMOTIDINE 20 MG TAB PO SCH ×2 (09:34→22:18)
[2016-07-05] MEDS: QUEtiapine FUMARATE 25 MG TAB PO SCH ×2 (09:34→22:18)
[2016-07-05] MEDS: ENOXAPARIN SODIUM 40 MG/0.4 ML SYRINGE SQ SCH (09:37)
--- NOTE | 2016-07-05 11:14 | HHI.NSPN ---
History Chief Complaint: nonverbal. SAH s/p aneurysm coiling. Interval History Stable and improving, alert and consistently follows commands with both upper extremities and lower extremities Review of Systems General: Negative for: fever, chills, insomnia Respiratory: Negative for: shortness of breath, cough, sputum Cardiovascular: Negative for: chest pain, palpitations, orthopnea Gastrointestinal: Negative for: nausea, vomitting, diarrhea, constipation Genitourinary: Negative for: urinary burning, urinary frequency, urinary urgency Exam Results Vital Signs Date Time Temp Pulse Resp B/P Pulse Ox O2 Delivery O2 Flow Rate FiO2 07/05/16 08:19 100 T-piece 6.00 28 07/05/16 08:00 99.0 75 22 106/60 Intake and Output 07/04/16 07/04/16 07/05/16 08:00 16:00 00:00 Intake Total 535 ml 934 ml Output Total 2 ml Balance 533 ml 934 ml Physical Examination Waving to examiner, alert, watching TV, nods yes and no to questions appropriately Follows commands relatively well today Moderate grasp to command, not antigravity but can push with both legs against pressure. CN: Pupils equal, tracks with grossly intact EOMs. Right FIELD REVIEWER shunt tract without edema Neck: tracheostomy Medical Decision Making Impression and Plan Stable neurologically and improve alertness. Awaiting insurance for rehab. Total Minutes: 5 Kolby Morris Jul 05, 2016 11:14
--- NOTE | 2016-07-05 14:32 | HHI.PR ---
Subjective Remarks Non new issues. Patient is awake and alert. Objective Vitals Vital Signs Date Time Temp Pulse Resp B/P Pulse Ox O2 Delivery O2 Flow Rate FiO2 07/05/16 12:00 98.6 81 21 118/68 98 07/05/16 08:19 100 T-piece 6.00 28 07/05/16 08:00 99.0 75 22 106/60 95 07/05/16 04:00 97.6 83 16 138/95 100 07/05/16 01:51 Room Air T-Piece Humidified 07/05/16 00:00 98.1 93 14 120/78 95 07/04/16 20:00 98.7 108 16 134/91 100 07/04/16 18:29 98 T-piece 6.00 21 07/04/16 16:59 98 Humidified 07/04/16 16:00 98.7 75 20 107/73 99 I/O 07/04/16 07/04/16 07/04/16 07/05/16 07/05/16 07/05/16 07:00 15:00 23:00 07:00 15:00 23:00 Intake Total 535 ml 934 ml 750 ml Output Total 2 ml Balance 533 ml 934 ml 750 ml Tube Feeding 335 ml 734 ml 510 ml Other 200 ml 200 ml 240 ml Stool Total 2 ml # Voids 3 4 3 # Bowel Movements 1 1 Objective Remarks GENERAL: Patient is awake, follows some commands HEAD: Normocephalic. Tongue edema present and protruded. CARDIOVASCULAR: Regular rate. 2/6 HEMALATHA murmur best heard left upper sternal border RESPIRATORY: Breath sounds equal bilaterally. No accessory muscle use. GASTROINTESTINAL: Abdomen soft, non-tender, nondistended. MUSCULOSKELETAL: No cyanosis, or edema. NEURO: Awake. Follow commands. 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 Patient was found to have shallow breathing and [place] Coma Scale of 3 at the time the paramedics found her. ED workup indicated significantly elevated systolic blood pressure around 290 and imaging studies showed a large left hemispheric intra-parenchymal hemorrhage with subarachnoid blood. 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 Patient was valuated by neurosurgery and was managed in the ICU until 05/17/2016. Patient underwent endovascular coiling of MCA by interventional radiology on 04/11/2016. During this admission patient also underwent tracheostomy, PEG tube placement, AGRICULTURAL PRODUCE WASHER shunt placement. She also underwent a tongue laceration repair and upper teeth extraction on 05/16/2016. - Acute subarachnoid hemorrhage - Left middle cerebral artery aneurysm - Large left frontal hemorrhage with intracranial hypertension - s/p endovascular coiling of MCA ruptured cerebral aneurysm 04/11 - Family request aggressive care and Dr. Meléndez performed left decompressive craniotomy 04/25 with evacuation of temporal hematoma - Patient appear to be improving from a neuro standpoint. - Malignant hypertension - Severe LV concentric hypertrophy - New Heart murmur - s/p permissive Hypertension for prevention of vasospasm in SAH patient now targeting SBP < 160 - s/p 3 weeks of Nimotop therapy for vasospasm prevention - Continue Norvasc 10 q day, Labetalol 300 q 8 hours.Hydralazine 75mg Q8hrs - Avoiding KISHA-I given severe tongue edema. - BP now controlled. - 2D echo noted. Showed concentric hypertrophic cardiomyopathy. Not significantly changed compared to prior. May need cardiology evaluation if she becomes symptomatic. Meanwhile will discontinue the diuretic. BP is stable. - Acute respiratory failure secondary to SAH/ICH - Severe tongue laceration. - s/p tracheostomy on 04/29/2016. Tongue laceration repair by Dr. Booth on . - Continue T-Piece, Duoneb, continue with mouth guard use. - Case management working on long-term care placement. - Nutrition - Continue tube feed. - Restlessness/ agitation -Resolving. continue Seroquel 25 mg twice a day which appears to be effective so far. Full code. Lovenox. Famotidine. Louise Jones MD Jul 05, 2016 14:32
[2016-07-06] VITALS (8 sets, daily range): BP systolic 109–149; BP diastolic 74–87; PULSE 76–88; RESP 18–22; TEMP 97–99; O2SAT 96–99
[2016-07-06] MEDS: CHLORHEXIDINE GLUCONATE 2 % 1 PACK (2 CLOTHS) TOP SCH (03:01)
[2016-07-06] MEDS: hydrALAZINE HCL 25 MG TAB TUBE SCH ×3 (06:00→21:57)
[2016-07-06] MEDS: LABETALOL HCL 300 MG TAB PO SCH ×3 (06:00→21:57)
[2016-07-06] MEDS: ENOXAPARIN SODIUM 40 MG/0.4 ML SYRINGE SQ SCH (07:45)
[2016-07-06] MEDS: QUEtiapine FUMARATE 25 MG TAB PO SCH ×2 (07:45→21:57)
[2016-07-06] MEDS: FAMOTIDINE 20 MG TAB PO SCH ×2 (07:45→21:57)
[2016-07-06] MEDS: SODIUM CHLORIDE 0.9% FLUSH 5 ML FLUSH IVF SCH ×2 (09:00→21:00)
--- NOTE | 2016-07-06 11:35 | HHI.NSPN ---
History Chief Complaint: nonverbal. SAH s/p aneurysm coiling. Interval History Stable and improving, alert and consistently follows commands with both upper extremities and lower extremities. She is active with OT/PT, was taken for s few steps OOB today with PT Review of Systems General: Negative for: fever, chills, insomnia Respiratory: Negative for: shortness of breath, cough, sputum Cardiovascular: Negative for: chest pain, palpitations, orthopnea Gastrointestinal: Negative for: nausea, vomitting, diarrhea, constipation Exam Results Vital Signs Date Time Temp Pulse Resp B/P Pulse Ox O2 Delivery O2 Flow Rate FiO2 07/06/16 08:00 97.6 86 18 149/86 96 07/06/16 02:03 T-Piece 5.00 Humidified 07/05/16 16:32 28 Intake and Output 07/05/16 07/05/16 07/06/16 08:00 16:00 00:00 Intake Total 750 ml 200 ml Balance 750 ml 200 ml Physical Examination Follows commands relatively well Moderate grasp to command, not antigravity but can push with both legs against pressure. CN: Pupils equal, tracks with grossly intact EOMs. Right SNUFF DRIER shunt tract without edema Neck: tracheostomy Medical Decision Making Impression and Plan Stable neurologically and improve alertness. Awaiting insurance for rehab. She may be ready to be capped at the tracheostomy site. Total Minutes: 10 Kolby Morris Jul 06, 2016 11:35
[2016-07-06] MEDS: ACETAMINOPHEN/HYDROcodone 325 MG/5 MG TAB PO PRN (17:47)
[2016-07-07] VITALS (8 sets, daily range): BP systolic 102–128; BP diastolic 54–84; PULSE 76–97; RESP 14–20; TEMP 96.4–98; O2SAT 97–100
[2016-07-07] MEDS: CHLORHEXIDINE GLUCONATE 2 % 1 PACK (2 CLOTHS) TOP SCH (02:03)
[2016-07-07] MEDS: hydrALAZINE HCL 25 MG TAB TUBE SCH ×3 (05:50→22:17)
[2016-07-07] MEDS: LABETALOL HCL 300 MG TAB PO SCH ×3 (05:50→22:17)
[2016-07-07] MEDS: FAMOTIDINE 20 MG TAB PO SCH (09:09)
[2016-07-07] MEDS: QUEtiapine FUMARATE 25 MG TAB PO SCH ×2 (09:09→22:17)
[2016-07-07] MEDS: SODIUM CHLORIDE 0.9% FLUSH 5 ML FLUSH IVF SCH ×2 (09:09→21:00)
[2016-07-07] MEDS: ENOXAPARIN SODIUM 40 MG/0.4 ML SYRINGE SQ SCH (09:09)
[2016-07-07 10:58] LABS: AUTOMATED NEUTROPHIL # 3.2 TH/MM3 (1.8-7.7); BASOPHIL % 0.7 % (0.0-2.0); EOSINOPHIL # 0.2 TH/MM3 (0-0.4); EOSINOPHIL % 3.9 % (0.0-4.0); HEMATOCRIT 34.9 % (35.0-46.0); HEMO FLAGS DIFF FINAL; LYMPH % 35.8 % (9.0-44.0); LYMPHOCYTE # 2.2 TH/MM3 (1.0-4.8); MEAN CELL VOLUME 77.9 FL (80.0-100.0); MEAN CORPUSCULAR HEMOGLOBIN 25.1 PG (27.0-34.0); MEAN CORPUSCULAR HGB CONC 32.3 % (32.0-36.0); MONO % 7.2 % (0.0-8.0); NEUT % 52.4 % (16.0-70.0); PLATELET COUNT 277 TH/MM3 (150-450); RED BLOOD COUNT 4.48 MIL/MM3 (4.00-5.30); RED CELL DISTRIBUTION WIDTH 17.4 % (11.6-17.2); WHITE BLOOD COUNT 6.1 TH/MM3 (4.0-11.0)
[2016-07-07 11:01] LABS: ALKALINE PHOSPHATASE 99 U/L (45-117); ALT (GPT) 129 U/L (10-53); ANION GAP 7 MEQ/L (5-15); AST (GOT) 86 U/L (15-37); BICARBONATE 29.4 MEQ/L (21.0-32.0); BLOOD UREA NITROGEN 20 MG/DL (7-18); CHLORIDE 101 MEQ/L (98-107); GLOMERULAR FILTRATION RATE 95 ML/MIN (>89); POTASSIUM 4.5 MEQ/L (3.5-5.1); SODIUM (NA) 137 MEQ/L (136-145); TOTAL BILIRUBIN ADULT 0.4 MG/DL (0.2-1.0)
--- NOTE | 2016-07-07 12:12 | HHI.PR ---
Subjective Remarks Patient seen in room in follow-up for hypertension, encephalopathy. Blood pressure well controlled. Chart reviewed. Discussed with Rn, RT. Objective Vitals Vital Signs Date Time Temp Pulse Resp B/P Pulse Ox O2 Delivery O2 Flow Rate FiO2 07/07/16 10:08 99 T-piece 28 07/07/16 09:07 96.4 82 20 119/54 100 07/07/16 05:50 98.0 83 19 117/75 100 07/07/16 00:15 96 T-Piece 4.00 Humidified 07/07/16 00:00 97.9 89 20 118/80 97 07/06/16 21:45 98 T-piece 28 07/06/16 21:30 98.1 88 20 110/75 96 07/06/16 16:00 99.0 84 20 149/76 96 07/06/16 14:14 99 T-piece 07/06/16 12:00 97.0 76 22 138/87 98 I/O 07/06/16 07/06/16 07/06/16 07/07/16 07/07/16 07/07/16 07:00 15:00 23:00 07:00 15:00 23:00 Intake Total 720 ml 0 ml 1043 ml Balance 720 ml 0 ml 1043 ml Intake Oral 0 ml 0 ml 0 ml Tube Feeding 720 ml 643 ml Other 400 ml # Voids 4 3 3 5 # Bowel Movements 0 1 1 1 Result Diagram: 07/07/1692407/07/16924 Objective Remarks GENERAL: This is a well-nourished, well-developed patient, in no apparent distress. Tracheostomy, swollen extruded tongue status post laceration repair is CARDIOVASCULAR: Regular rate and rhythm without murmurs, gallops, or rubs. RESPIRATORY: Clear to auscultation. Breath sounds equal bilaterally. No wheezes , rales, or rhonchi. GASTROINTESTINAL: peg. Abdomen soft, non-tender, nondistended. Normal active bowel sounds MUSCULOSKELETAL: Extremities without clubbing, cyanosis, or edema. NEURO: Alert & Oriented x4 to person, place, time, situation. Moves all ext x4 Procedures s/p endovascular coiling of MCA ruptured cerebral aneurysm 04/11/16 s/p tracheostomy on 04/29/2016 A/P Assessment and Plan This patient is a 38-year-old female with a known history of hypertension. She was found unresponsive at home and had a blood pressure of 265/135. Patient was admitted to the ICU with a large hemispheric intraparenchymal hemorrhage with subarachnoid blood. Patient had a left middle cerebral artery aneurysm and did undergo endovascular coiling with subsequent tracheostomy and PEG tube placement. Patient also had a large laceration of her tongue which was repaired by oral Isaiah facial surgery 1. Acute subarachnoid hemorrhage with left middle cerebral artery aneurysm and status post endovascular coiling. Patient had evacuation of frontal temporal hematoma. Neurologically appears to be improving slowly 2. Malignant hypertension. Echocardiogram does show severe left concentric hypertrophy. Patient is now on Norvasc, labetalol, hydralazine. Avoid KISHA inhibitor's given traumatic tongue edema 3. Respiratory failure requiring tracheostomy. This is secondary to SA hemorrhage. Now with needs for airway protection. Continue T piece with probable long-term nursing care needs. Respiratory status complicated due to severe tongue laceration and edema 4. FEN: Jevity 1.5 at 60 mL an hour 5. Encephalopathy secondary to intracranial hemorrhage, continue Seroquel. Otherwise soft restraints as needed for patient safety Continue Lovenox for DVT prophylaxis Zantac for GI prophylaxis Discharge Planning to rehab when placement available med list cleaned up Rosita Johansen MD Jul 07, 2016 12:12
--- NOTE | 2016-07-07 19:10 | HHI.NSPN ---
History Chief Complaint: nonverbal. SAH s/p aneurysm coiling. Interval History 04/12/16: Patient had an aneurysm coiled 04/11/2016, intubated and sedated, ICP stable overnight 04/29/2016: Tracheostomy and PEG placement 06/03/16: Remains awake, primarily left lateral gaze. Grasp with left hand, not definitely to command. Exam Results Vital Signs Date Time Temp Pulse Resp B/P Pulse Ox O2 Delivery O2 Flow Rate FiO2 07/07/16 17:58 99 T-piece 6.00 28 07/07/16 17:08 97.6 76 18 102/67 Intake and Output 07/06/16 07/06/16 07/06/16 07:59 15:59 23:59 Intake Total 720 ml 0 ml Balance 720 ml 0 ml Physical Examination Grasps left greater than right hand with moderate strength to command CN: Pupils equal, tracks 2 left greater than right with grossly intact EOMs. Right LEARNING SOLUTIONS SPECIALIST shunt tract without edema Neck: tracheostomy Abdomen soft without obvious tenderness. PEG tube in place Respirations clear Cardiac: Regular Medical Decision Making Impression and Plan Impression: 1. Stable neurologic function over the past week. Plan: Continuing tube feedings for nutrition Wound care nurse evaluation for lumbosacral skin breakdown. Continuing decubitus precautions Tracheostomy care Continuing therapy Case management following Bite-block in place for tongue laceration-edema improving She will need discharge to rehabilitation if arrangements can be made. Total Minutes: 10 Sherwin Meléndez MD Jul 07, 2016 19:09
[2016-07-07] MEDS: RANITIDINE HCL SYRUP 150 MG/10 ML UDC PO SCH (22:17)
[2016-07-08] VITALS (9 sets, daily range): BP systolic 107–128; BP diastolic 64–78; PULSE 71–84; RESP 14–18; TEMP 96.6–98.7; O2SAT 97–100
[2016-07-08] MEDS: LABETALOL HCL 300 MG TAB PO SCH ×3 (05:58→22:59)
[2016-07-08] MEDS: hydrALAZINE HCL 25 MG TAB TUBE SCH ×3 (06:14→22:59)
[2016-07-08] MEDS: ENOXAPARIN SODIUM 40 MG/0.4 ML SYRINGE SQ SCH (08:40)
[2016-07-08] MEDS: QUEtiapine FUMARATE 25 MG TAB PO SCH ×2 (08:40→22:55)
[2016-07-08] MEDS: SODIUM CHLORIDE 0.9% FLUSH 5 ML FLUSH IVF SCH ×2 (08:40→21:00)
[2016-07-08] MEDS: RANITIDINE HCL SYRUP 150 MG/10 ML UDC PO SCH ×2 (08:40→22:55)
--- NOTE | 2016-07-08 11:43 | HHI.PR ---
Subjective Remarks Patient seen in follow-up for respiratory failure and for encephalopathy. Care plan discussed with Milo AREVALO. Patient resting comfortably but is easily aroused. Objective Vitals Vital Signs Date Time Temp Pulse Resp B/P Pulse Ox O2 Delivery O2 Flow Rate FiO2 07/08/16 10:22 99 T-piece 28 07/08/16 08:30 97.9 71 18 112/69 100 07/08/16 06:00 T-Piece 4.00 28 Humidified 07/08/16 04:00 98.1 84 16 117/64 97 07/08/16 00:00 98.7 84 14 115/71 100 07/07/16 20:00 96.7 97 14 128/84 100 07/07/16 17:58 99 T-piece 6.00 28 07/07/16 17:08 97.6 76 18 102/67 100 07/07/16 13:33 97.1 78 20 127/75 100 I/O 07/07/16 07/07/16 07/07/16 07/08/16 07/08/16 07/08/16 07:00 15:00 23:00 07:00 15:00 23:00 Intake Total 1043 ml Output Total 0 ml Balance 1043 ml 0 ml Intake Oral 0 ml Tube Feeding 643 ml Other 400 ml Stool Total 0 ml # Voids 5 5 6 3 # Bowel Movements 1 1 Result Diagram: 07/07/1692407/07/16924 Objective Remarks GENERAL: This is a well-nourished, well-developed patient, in no apparent distress. Tracheostomy, swollen extruded tongue status post laceration repair is CARDIOVASCULAR: Regular rate and rhythm without murmurs, gallops, or rubs. RESPIRATORY: Clear to auscultation. Breath sounds equal bilaterally. No wheezes , rales, or rhonchi. GASTROINTESTINAL: peg. Abdomen soft, non-tender, nondistended. Normal active bowel sounds MUSCULOSKELETAL: Extremities without clubbing, cyanosis, or edema. NEURO: Alert & Oriented x4 to person, place, time, situation. 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 She was found unresponsive at home and had a blood pressure of 265/135. Patient was admitted to the ICU with a large hemispheric intraparenchymal hemorrhage with subarachnoid blood. Patient had a left middle cerebral artery aneurysm and did undergo endovascular coiling with subsequent tracheostomy and PEG tube placement. Patient also had a large laceration of her tongue which was repaired by oral Isaiah facial surgery 1. Acute subarachnoid hemorrhage with left middle cerebral artery aneurysm and status post endovascular coiling. Patient had evacuation of frontal temporal hematoma. Neurologically appears to be improving slowly 2. Malignant hypertension. Echocardiogram does show severe left concentric hypertrophy. Patient is now on Norvasc, labetalol, hydralazine. Avoid KISHA inhibitor's given traumatic tongue edema 3. Respiratory failure requiring tracheostomy for airway protection. This is secondary to SA hemorrhage. RT to attempt to place the fenestrated tube Today. Discussed with neurosurgery yesterday. Respiratory status complicated due to severe tongue laceration and edema 4. FEN: Jevity 1.5 at 60 mL an hour 5. Encephalopathy secondary to intracranial hemorrhage, continue Seroquel. Otherwise soft restraints as needed for patient safety Continue Lovenox for DVT prophylaxis Zantac for GI prophylaxis Discharge Planning to rehab when placement available med list cleaned up Rosita Johansen MD Jul 08, 2016 11:43
--- NOTE | 2016-07-08 20:36 | HHI.NSPN ---
History Chief Complaint: nonverbal. SAH s/p aneurysm coiling. Interval History 04/12/16: Patient had an aneurysm coiled 04/11/2016, intubated and sedated, ICP stable overnight 04/29/2016: Tracheostomy and PEG placement 06/03/16: Remains awake, primarily left lateral gaze. Grasp with left hand, not definitely to command. Exam Results Vital Signs Date Time Temp Pulse Resp B/P Pulse Ox O2 Delivery O2 Flow Rate FiO2 07/08/16 20:00 97.2 74 18 128/78 97 07/08/16 17:59 T-piece 6.00 28 Intake and Output 07/07/16 07/07/16 07/08/16 08:00 16:00 00:00 Intake Total 1043 ml Output Total 0 ml Balance 1043 ml 0 ml Physical Examination Neck: tracheostomy Abdomen soft without obvious tenderness. PEG tube in place Respirations clear Cardiac: Regular Patient's tongue is still significantly compressed despite removal of upper teeth. Awake alert today. Grasps left greater than right hand with moderate strength to command CN: Pupils equal, tracks 2 left greater than right with grossly intact EOMs. Right STONECUTTER ASSISTANT shunt tract without edema Medical Decision Making Impression and Plan Impression: 1. Stable neurologic function over the past week. Plan: Continuing tube feedings for nutrition Wound care nurse evaluation for lumbosacral skin breakdown. Continuing decubitus precautions Tracheostomy care Continuing therapy Case management following Difficult to keep bite block in place. Discussed with nursing staff. We will discuss further with ENT regarding treatment for the tongue laceration. She will need discharge to rehabilitation if arrangements can be made. Total Minutes: 10 Sherwin Meléndez MD Jul 08, 2016 20:36
[2016-07-09] VITALS (7 sets, daily range): BP systolic 117–152; BP diastolic 74–95; PULSE 69–90; RESP 16–22; TEMP 96.6–97.6; O2SAT 96–100
[2016-07-09] MEDS: hydrALAZINE HCL 25 MG TAB TUBE SCH ×3 (05:58→22:50)
[2016-07-09] MEDS: LABETALOL HCL 300 MG TAB PO SCH ×3 (05:58→22:51)
[2016-07-09] MEDS: SODIUM CHLORIDE 0.9% FLUSH 5 ML FLUSH IVF SCH ×2 (09:00→21:00)
[2016-07-09] MEDS: QUEtiapine FUMARATE 25 MG TAB PO SCH ×2 (09:20→22:52)
[2016-07-09] MEDS: ENOXAPARIN SODIUM 40 MG/0.4 ML SYRINGE SQ SCH (09:20)
[2016-07-09] MEDS: RANITIDINE HCL SYRUP 150 MG/10 ML UDC PO SCH ×2 (09:20→22:57)
--- NOTE | 2016-07-09 12:56 | HHI.PR ---
Subjective Remarks Seen in room in follow-up for respiratory failure and for tongue laceration. Blood pressure controlled. Patient's tracheostomy was unable to change due to bleeding and apparently it was stuck eye and it was unable to be exchanged by respiratory team. Care plan discussed with Milo AREVALO. Chart reviewed Objective Vitals Vital Signs Date Time Temp Pulse Resp B/P Pulse Ox O2 Delivery O2 Flow Rate FiO2 07/09/16 09:32 97.0 81 22 141/90 100 07/09/16 04:07 96.6 69 20 130/83 100 07/09/16 00:00 97.2 77 19 142/89 100 07/08/16 20:20 T-Piece 5.00 28 Humidified 07/08/16 20:00 97.2 74 18 128/78 97 07/08/16 17:59 T-piece 6.00 07/08/16 16:00 96.9 78 18 112/69 100 07/08/16 14:54 99 07/08/16 14:49 100 40 I/O 07/08/16 07/08/16 07/08/16 07/09/16 07/09/16 07/09/16 07:00 15:00 23:00 07:00 15:00 23:00 Intake Total 0 ml Balance 0 ml Intake Oral 0 ml # Voids 3 3 3 2 # Bowel Movements 1 2 Result Diagram: 07/07/1692407/07/16924 Objective Remarks GENERAL: This is a well-nourished, well-developed patient, in no apparent distress. Tracheostomy, swollen extruded tongue status post laceration repair is CARDIOVASCULAR: Regular rate and rhythm without murmurs, gallops, or rubs. RESPIRATORY: Clear to auscultation. Breath sounds equal bilaterally. No wheezes , rales, or rhonchi. GASTROINTESTINAL: peg. Abdomen soft, non-tender, nondistended. Normal active bowel sounds MUSCULOSKELETAL: Extremities without clubbing, cyanosis, or edema. NEURO: Alert & Oriented x4 to person, place, time, situation. 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 She was found unresponsive at home and had a blood pressure of 265/135. Patient was admitted to the ICU with a large hemispheric intraparenchymal hemorrhage with subarachnoid blood. Patient had a left middle cerebral artery aneurysm and did undergo endovascular coiling with subsequent tracheostomy and PEG tube placement. Patient also had a large laceration of her tongue which was repaired by oral Isaiah facial surgery 1. Acute subarachnoid hemorrhage with left middle cerebral artery aneurysm and status post endovascular coiling. Patient had evacuation of frontal temporal hematoma. Neurologically appears to be improving slowly 2. Malignant hypertension. Echocardiogram does show severe left concentric hypertrophy. Patient is now on Norvasc, labetalol, hydralazine. Avoid KISHA inhibitor's given traumatic tongue edema 3. Respiratory failure requiring tracheostomy for airway protection. This is secondary to SA hemorrhage. RT unable to place the fenestrated tube due to it being stuck and bleeding during the attempt. Respiratory status complicated due to severe tongue laceration and edema. NSGY to discuss with ENT regarding options. 4. FEN: Jevity 1.5 at 60 mL an hour 5. Encephalopathy secondary to intracranial hemorrhage, continue Seroquel. Otherwise soft restraints as needed for patient safety Continue Lovenox for DVT prophylaxis Zantac for GI prophylaxis Discharge Planning to rehab when placement available med list cleaned up Rosita Johansen MD Jul 09, 2016 12:56
--- NOTE | 2016-07-09 20:41 | HHI.NSPN ---
History Chief Complaint: nonverbal. SAH s/p aneurysm coiling. Interval History 04/12/16: Patient had an aneurysm coiled 04/11/2016, intubated and sedated, ICP stable overnight 04/29/2016: Tracheostomy and PEG placement 06/03/16: Remains awake, primarily left lateral gaze. Grasp with left hand, not definitely to command. Exam Results Vital Signs Date Time Temp Pulse Resp B/P Pulse Ox O2 Delivery O2 Flow Rate FiO2 07/09/16 20:04 97.6 85 18 117/79 100 07/09/16 10:30 T-Piece 6.00 28 Physical Examination Neck: tracheostomy Abdomen soft without obvious tenderness. PEG tube in place Respirations clear Cardiac: Regular Patient's tongue is still significantly compressed despite removal of upper teeth. Awake alert today. Grasps left greater than right hand with moderate strength to command CN: Pupils equal, tracks 2 left greater than right with grossly intact EOMs. Right ROAD DESIGN ENGINEER shunt tract without edema Medical Decision Making Impression and Plan Impression: 1. Stable neurologic function over the past week. 2. Persistent tongue edema. Difficulty maintaining bite block Plan: Continuing tube feedings for nutrition Wound care nurse evaluation for lumbosacral skin breakdown. Continuing decubitus precautions Tracheostomy care Continuing therapy Case management following Difficult to keep bite block in place. Discussed with nursing staff. We will discuss further with ENT regarding treatment for the tongue laceration. She will need discharge to rehabilitation if arrangements can be made. Total Minutes: 10 Sherwin Meléndez MD Jul 09, 2016 20:41
[2016-07-10 00:12] VITALS: BP 116/76; PULSE 78; RESP 22; TEMP 97.8; O2SAT 100
[2016-07-10] MEDS: ACETAMINOPHEN/HYDROcodone 325 MG/5 MG TAB PO PRN ×3 (01:28→22:02)
[2016-07-10] MEDS: hydrALAZINE HCL 25 MG TAB TUBE SCH ×3 (06:00→22:01)
[2016-07-10] MEDS: LABETALOL HCL 300 MG TAB PO SCH ×3 (06:48→22:01)
[2016-07-10 07:50] VITALS: O2SAT 98
[2016-07-10 08:00] VITALS: BP 121/72; PULSE 75; RESP 16; TEMP 96.8; O2SAT 100
[2016-07-10] MEDS: SODIUM CHLORIDE 0.9% FLUSH 5 ML FLUSH IVF SCH ×2 (09:00→22:01)
[2016-07-10] MEDS: QUEtiapine FUMARATE 25 MG TAB PO SCH ×2 (09:50→22:01)
[2016-07-10] MEDS: ENOXAPARIN SODIUM 40 MG/0.4 ML SYRINGE SQ SCH (09:51)
[2016-07-10] MEDS: RANITIDINE HCL SYRUP 150 MG/10 ML UDC PO SCH ×2 (09:51→22:01)
[2016-07-10 12:41] VITALS: BP 140/79; PULSE 60; RESP 18; TEMP 97.4; O2SAT 99
[2016-07-10 16:00] VITALS: BP 109/69; PULSE 70; RESP 18; TEMP 96.8; O2SAT 96
[2016-07-10 20:00] VITALS: BP 177/103; PULSE 100; RESP 20; TEMP 95.5; O2SAT 96
--- NOTE | 2016-07-10 21:54 | HHI.NSPN ---
History Chief Complaint: nonverbal. SAH s/p aneurysm coiling. Interval History 04/12/16: Patient had an aneurysm coiled 04/11/2016, intubated and sedated, ICP stable overnight 04/29/2016: Tracheostomy and PEG placement 06/03/16: Remains awake, primarily left lateral gaze. Grasp with left hand, not definitely to command. Exam Results Vital Signs Date Time Temp Pulse Resp B/P Pulse Ox O2 Delivery O2 Flow Rate FiO2 07/10/16 16:00 96.8 70 18 109/69 96 07/10/16 08:00 T-Piece 6.00 28 Intake and Output 07/09/16 07/09/16 07/10/16 08:00 16:00 00:00 Intake Total 0 ml 1120 ml 0 ml Balance 0 ml 1120 ml 0 ml Physical Examination Neck: tracheostomy in place Abdomen soft without obvious tenderness. PEG tube in place Respirations clear Cardiac: Regular Patient's tongue is still significantly compressed despite removal of upper teeth. Mildly lethargic this morning. Grasps left greater than right hand with moderate strength to command CN: Pupils equal, tracks 2 left greater than right with grossly intact EOMs. Right PERSONALIZED LIVING MANAGER shunt tract without edema Medical Decision Making Impression and Plan Impression: 1. Stable neurologic function over the past week. 2. Persistent tongue edema. Difficulty maintaining bite block Plan: Continuing tube feedings for nutrition Wound care nurse evaluation for lumbosacral skin breakdown. Continuing decubitus precautions Tracheostomy care Continuing therapy Case management following Difficult to keep bite block in place. Discussed with nursing staff. We will discuss further with ENT regarding treatment for the tongue laceration. She will need discharge to rehabilitation if arrangements can be made. Total Minutes: 10 Sherwin Meléndez MD Jul 10, 2016 21:53
[2016-07-11] VITALS (9 sets, daily range): BP systolic 113–160; BP diastolic 72–96; PULSE 64–97; RESP 18–24; TEMP 96.9–98; O2SAT 95–100
[2016-07-11] MEDS: hydrALAZINE HCL 25 MG TAB TUBE SCH ×3 (05:37→23:12)
[2016-07-11] MEDS: LABETALOL HCL 300 MG TAB PO SCH ×3 (05:37→23:12)
[2016-07-11] MEDS: SODIUM CHLORIDE 0.9% FLUSH 5 ML FLUSH IVF SCH ×2 (09:00→23:13)
[2016-07-11] MEDS: ENOXAPARIN SODIUM 40 MG/0.4 ML SYRINGE SQ SCH (10:26)
[2016-07-11] MEDS: RANITIDINE HCL SYRUP 150 MG/10 ML UDC PO SCH ×2 (10:26→23:12)
[2016-07-11] MEDS: QUEtiapine FUMARATE 25 MG TAB PO SCH ×2 (10:26→23:12)
--- NOTE | 2016-07-11 12:39 | HHI.PR ---
Subjective Remarks Patient seen and evaluated today in follow-up for respiratory failure and encephalopathy. No events per nursing team. Per rehabilitation progressing slowly due to encephalopathy Objective Vitals Vital Signs Date Time Temp Pulse Resp B/P Pulse Ox O2 Delivery O2 Flow Rate FiO2 07/11/16 08:00 97.2 76 24 119/73 100 07/11/16 04:00 97.5 64 18 117/81 95 07/11/16 02:35 97 T-piece 5.00 28 07/11/16 01:30 97.0 97 20 160/96 98 07/10/16 20:00 95.5 100 20 177/103 96 07/10/16 16:00 96.8 70 18 109/69 96 07/10/16 12:41 97.4 60 18 140/79 99 I/O 07/10/16 07/10/16 07/10/16 07/11/16 07/11/16 07/11/16 07:00 15:00 23:00 07:00 15:00 23:00 Intake Total 922 ml Balance 922 ml Intake Oral 0 ml Tube Feeding 682 ml Tube Irrigant 240 ml # Voids 3 5 # Bowel Movements 1 3 2 Result Diagram: 07/07/1692407/07/16924 Objective Remarks GENERAL: This is a well-nourished, well-developed patient, in no apparent distress. Tracheostomy, swollen extruded tongue status post laceration repair is CARDIOVASCULAR: Regular rate and rhythm without murmurs, gallops, or rubs. RESPIRATORY: Clear to auscultation. Breath sounds equal bilaterally. No wheezes , rales, or rhonchi. GASTROINTESTINAL: peg. Abdomen soft, non-tender, nondistended. Normal active bowel sounds MUSCULOSKELETAL: Extremities without clubbing, cyanosis, or edema. NEURO: Alert & Oriented x4 to person, place, time, situation. Moves left extremity is better than right 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 ICD Code: I60.12 Status: Acute (2) Cerebral aneurysm rupture ICD Code: I60.9 Status: Acute (3) Hypertension ICD Code: I10 Status: Chronic (4) Encephalopathy ICD Code: G93.40 Status: Chronic (5) Malnutrition ICD Code: E46 Status: Acute (6) Hydrocephalus ICD Code: G91.9 Status: Acute (7) Sequelae of nontraumatic intracerebral hemorrhage ICD Code: I69.10 Status: Acute (8) 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 She was found unresponsive at home and had a blood pressure of 265/135. Patient was admitted to the ICU with a large hemispheric intraparenchymal hemorrhage with subarachnoid blood. Patient had a left middle cerebral artery aneurysm and did undergo endovascular coiling with subsequent tracheostomy and PEG tube placement. Patient also had a large laceration of her tongue which was repaired by oral Isaiah facial surgery 1. Acute subarachnoid hemorrhage with left middle cerebral artery aneurysm and status post endovascular coiling. Patient had evacuation of frontal temporal hematoma. Neurologically appears to be improving slowly 2. Malignant hypertension. Echocardiogram does show severe left concentric hypertrophy. Patient is now on Norvasc, labetalol, hydralazine. Avoid KISHA inhibitor's given traumatic tongue edema 3. Respiratory failure requiring tracheostomy for airway protection. This is secondary to SA hemorrhage. RT unable to place the fenestrated tube due to it being stuck and bleeding during the attempt. Respiratory status complicated due to severe tongue laceration and edema. NSGY to discuss with ENT regarding options (may need removal of tongue) 4. FEN: Jevity 1.5 at 60 mL an hour 5. Encephalopathy secondary to intracranial hemorrhage, continue Seroquel. Otherwise soft restraints as needed for patient safety Continue Lovenox for DVT prophylaxis Zantac for GI prophylaxis Discharge Planning to rehab when placement available med list cleaned up Rosita Johansen MD Jul 11, 2016 12:39
[2016-07-12] VITALS: BP 137/79; PULSE 63; RESP 18; TEMP 97.5; O2SAT 97
[2016-07-12] MEDS: hydrALAZINE HCL 25 MG TAB TUBE SCH ×3 (07:20→21:25)
[2016-07-12] MEDS: LABETALOL HCL 300 MG TAB PO SCH ×3 (07:20→21:24)
[2016-07-12] MEDS: ACETAMINOPHEN/HYDROcodone 325 MG/5 MG TAB PO PRN ×2 (07:24→21:26)
--- NOTE | 2016-07-12 07:45 | PD.CONS ---
History of Present Illness Service ENT Consult Requested By Dr Meléndez Reason for Consult Follow up tongue laceration. Primary Care Physician Unknown Diagnoses: History of Present Illness 46 year old female post brain bleed. Apparently had tounge edema through her hospitalization. Had a tongue laceration managed by Ora-Maxillofacial Surgery along with dental extraction. Review of Systems Ears, nose, mouth, throat: DENIES: Nasal discharge, Oral lesions, Throat pain Past Family Social History Allergies: Coded Allergies: No Known Allergies (Verified , 04/11/16) Physical Exam Vital Signs Vital Signs Date Time Temp Pulse Resp B/P Pulse Ox O2 Delivery O2 Flow Rate FiO2 07/12/16 00:00 100 T-Piece 5.00 28 07/11/16 18:05 100 T-piece 6.00 07/11/16 16:00 97.9 79 20 113/76 100 07/11/16 12:00 96.9 92 20 151/73 98 07/11/16 11:40 98 T-piece 5.00 28 07/11/16 10:04 T-Piece 6.00 28 07/11/16 08:00 97.2 76 24 119/73 100 Physical Exam GENERAL: This is a well-nourished, well-developed patient, in no apparent distress. SKIN: No rashes, ecchymoses or lesions. Cool and dry. HEAD: Atraumatic. Normocephalic. No temporal or scalp tenderness. EYES: Pupils equal round and reactive. Extraocular motions intact. No scleral icterus. No injection or drainage. ENT: Nose without bleeding, purulent drainage or septal hematoma. Throat without erythema, tonsillar hypertrophy or exudate. Uvula midline. Airway patent. Moble anterior toungue protruded, bulbous. No ulcer no bleed. Assessment and Plan Assessment and Plan Tongue injury managed by OMFS. Recommend re-call Dr Booth. It may be that partial glossectomy with removal of the anterior segment is necessary. Hopefully OMFS may have a better alternative. Quinn Major MD Jul 12, 2016 07:45
[2016-07-12 08:30] VITALS: BP 100/69; PULSE 75; RESP 16; TEMP 98.4; O2SAT 100
[2016-07-12] MEDS: ENOXAPARIN SODIUM 40 MG/0.4 ML SYRINGE SQ SCH (09:00)
--- NOTE | 2016-07-12 09:13 | HHI.PR ---
Subjective Remarks Patient appears in nad. Nods yes/no to questions. Pain is controlled. No n/v/d/c. Some secretions. Seen by Dr Booth, recommends removing lower teeth. Objective Vitals Vital Signs Date Time Temp Pulse Resp B/P Pulse Ox O2 Delivery O2 Flow Rate FiO2 07/12/16 07:00 T-Piece 5.00 28 07/12/16 00:00 100 T-Piece 5.00 28 07/11/16 18:05 100 T-piece 6.00 07/11/16 16:00 97.9 79 20 113/76 100 07/11/16 12:00 96.9 92 20 151/73 98 07/11/16 11:40 98 T-piece 5.00 28 07/11/16 10:04 T-Piece 6.00 28 I/O 07/11/16 07/11/16 07/11/16 07/12/16 07/12/16 07/12/16 07:00 15:00 23:00 07:00 15:00 23:00 # Voids 5 2 # Bowel Movements 2 1 2 Imaging Last Impressions Head CT 05/23/16 06 Signed Impressions: Service Date/Time: Monday, May 23, 2016 04:48 - CONCLUSION: 1. The left craniotomy defect has been repaired. 2. Small blood and air in the left subdural space, up to 6 mm in maximal thickness. Subdural drain in place. 3. Evolving encephalomalacia of the left frontal and temporal lobes. 4. 2 mm of rightward midline shift. 5. Shunted. No ventriculomegaly. Fei Hughes MD Chest X-Ray 05/17/16 0600 Signed Impressions: Service Date/Time: Tuesday, May 17, 2016 04:59 - CONCLUSION: 1. Minimal basilar atelectasis. Cardiomegaly. Quinn Bateman MD Skull X-Ray 05/08/16 0000 Signed Impressions: Service Date/Time: May 10:16 - CONCLUSION: Shunt set to 70-80 mm H2O. Fei Snyder MD Head CTA 05/02/16 0600 Signed Impressions: Service Date/Time: Monday, May 02, 2016 04:32 - CONCLUSION: Satisfactory appearance post aneurysm coiling Fei Snyder MD Abdomen/Pelvis CT 04/24/16 1416 Signed Impressions: Service Date/Time: March 14:39 - CONCLUSION: Mild small bowel ileus with scattered air-fluid levels. Bibasilar lung consolidation with associated small effusions. Significant soft tissue fluid accumulation with edematous changes throughout the abdominal wall. Nasogastric tube in good position. Saqib Garcia MD Neck CTA 04/11/16 1151 Signed Impressions: Service Date/Time: Monday, April 11, 2016 12:01 - CONCLUSION: Negative for hemodynamically significant carotid stenosis. Ricardo Castellanos MD FACR Cerebral Arteriogram 04/11/16 0000 Signed Impressions: Service Date/Time: Monday, April 11, 2016 14:18 - CONCLUSION: 1. 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 This is the aneurysm felt responsible for the intracranial hemorrhage. 2. Small 4 mm left M1 segment aneurysm. Attempts at embolizing this aneurysm were unsuccessful due to the broad based nature of the aneurysm. Endovascular repair of this aneurysm could not be performed. Kennedy Thibodeaux Jr., MD Objective Remarks GENERAL: This is a well-nourished, well-developed patient, in no apparent distress. Tracheostomy, swollen extruded tongue status post laceration repair is CARDIOVASCULAR: Regular rate and rhythm without murmurs, gallops, or rubs. RESPIRATORY: Clear to auscultation. Breath sounds equal bilaterally. No wheezes , rales, or rhonchi. GASTROINTESTINAL: peg. Abdomen soft, non-tender, nondistended. Normal active bowel sounds MUSCULOSKELETAL: Extremities without clubbing, cyanosis, or edema. NEURO: Alert & Oriented x4 to person, place, time, situation. Moves left extremity is better than right ENT: enlarged tongue, good vascularization. 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 She was found unresponsive at home and had a blood pressure of 265/135. Patient was admitted to the ICU with a large hemispheric intraparenchymal hemorrhage with subarachnoid blood. Patient had a left middle cerebral artery aneurysm and did undergo endovascular coiling with subsequent tracheostomy and PEG tube placement. Patient also had a large laceration of her tongue which was repaired by oral Isaiah facial surgery 1. Acute subarachnoid hemorrhage with left middle cerebral artery aneurysm and status post endovascular coiling. Patient had evacuation of frontal temporal hematoma. Neurologically appears to be improving slowly 2. Malignant hypertension. Echocardiogram does show severe left concentric hypertrophy. Patient is now on Norvasc, labetalol, hydralazine. Avoid KISHA inhibitor's given traumatic tongue edema 3. Respiratory failure requiring tracheostomy for airway protection. This is secondary to SA hemorrhage. RT unable to place the fenestrated tube due to it being stuck and bleeding during the attempt. Respiratory status complicated due to severe tongue laceration and edema. NSGY to discuss with ENT regarding options (may need removal of tongue) 4. FEN: Jevity 1.5 at 60 mL an hour 5. Encephalopathy secondary to intracranial hemorrhage, continue Seroquel. Otherwise soft restraints as needed for patient safety 7. Macroglossia. Tongue edema again secondary to lower teeth biting with remaining upper teeth. Plan for extraction of teeth to help reduce tongue edema poss tomorrow 07/[address] Leobardo Pascal for DVT prophylaxis, hold if surgery Zantac for GI prophylaxis Discharge Planning Plan to DC to rehab when placement available Med list reviewed. Dee Henderson MD Jul 12, 2016 09:13
[2016-07-12] MEDS: RANITIDINE HCL SYRUP 150 MG/10 ML UDC PO SCH ×2 (09:36→21:26)
[2016-07-12] MEDS: QUEtiapine FUMARATE 25 MG TAB PO SCH ×2 (09:36→21:24)
[2016-07-12] MEDS: SODIUM CHLORIDE 0.9% FLUSH 5 ML FLUSH IVF SCH ×2 (09:37→21:24)
--- NOTE | 2016-07-12 09:52 | HHI.PR ---
Subjective Remarks s/p extraction of periodontally, decayed, broken teeth # [id number] and repair of through and thorough tongue laceration/soft tissue injury pt seen examined, nurse at bedside trached neurologically not following commands Objective Vital Signs Date Time Temp Pulse Resp B/P Pulse Ox O2 Delivery O2 Flow Rate FiO2 07/12/16 07:00 T-Piece 5.00 28 07/12/16 00:00 97.5 63 18 137/79 97 07/12/16 00:00 100 T-Piece 5.00 28 07/11/16 20:00 98.0 88 18 140/72 100 07/11/16 18:05 100 T-piece 6.00 07/11/16 16:00 97.9 79 20 113/76 100 07/11/16 12:00 96.9 92 20 151/73 98 07/11/16 11:40 98 T-piece 5.00 28 07/11/16 10:04 T-Piece 6.00 28 I/O 07/11/16 07/11/16 07/11/16 07/12/16 07/12/16 07/12/16 07:00 15:00 23:00 07:00 15:00 23:00 Output Total 900 ml Balance -900 ml Output Urine Total 900 ml # Voids 5 2 # Bowel Movements 2 1 2 1 Objective Remarks tongue edema again wound margins well approximated, no tongue laceration. tongue pink and well perfused, extraction sites stable tongue position extruding left side of mouth, pt not cooperative to bite block, keeps spitting it out Assessment and Plan Assessment and Plan s/p extraction of teeth maxillary 6-11 -decayed/periodontally involved and repair of tongue laceration/soft tissue injury secondary to biting and enlarged tongue tongue attached/pink and healthy/healed well tongue edema again secondary to lower teeth biting with remaining upper teeth, extraction sites stable d/w with daughter Gato Soares, - pt's condition, plan for extraction of teeth to help reduce tongue edema pt's medical/mental status guarded. fed by tube will d/w pts daughter later today again. Steve Booth DMD Jul 12, 2016 09:52
[2016-07-12 12:35] VITALS: BP 91/64; PULSE 75; RESP 16; TEMP 98.6; O2SAT 100
[2016-07-12 14:25] VITALS: O2SAT 100
--- NOTE | 2016-07-12 14:58 | HHI.NSPN ---
History Chief Complaint: nonverbal. SAH s/p aneurysm coiling. Interval History 05/03/16: Pt with eyes open. Not following commands. Pupils 4mm bilaterally reactive bilaterally. Ventriculostomy in place at [id number]. ICP 8. 05/04/16: Pt with eyes open. Not following commands. Pupils 4mm bilaterally reactive bilaterally. Ventriculostomy in place at [id number]. ICP 8. 06/20/16: Pt opens eyes intermittently. Follow some simple commands intermittently. Not verbalizing. 06/21/16: Pt more awake today. complains of headache. She follows simple commands. Tongue remains swollen. Trach in place. 06/22/16: Pt awake and alert. Not verbalizing but communicates by blinking. She has a headache. Follows commands well. 06/25/16: Pt fatigues in afternoon. Not following commands. Not verbalizing or mouthing words. Participated with PT earlier today, fatigued now. 07/12/16: Pt opens eyes to voice. Not verbalizing. Follows commands well. Nursing Unit Manager hands and moves toes to command. Pupils 3mm bilaterally reactive bilaterally. Review of Systems General: Negative for: fever, chills, insomnia Respiratory: Negative for: shortness of breath, cough, sputum Cardiovascular: Negative for: chest pain Gastrointestinal: Negative for: nausea, vomitting, diarrhea, constipation Exam Results Vital Signs Date Time Temp Pulse Resp B/P Pulse Ox O2 Delivery O2 Flow Rate FiO2 07/12/16 14:25 100 T-piece 28 07/12/16 08:30 98.4 75 16 100/69 07/12/16 07:00 5.00 Physical Examination ENT: Patient's tongue is still edematous Respirations: CTA bilaterally Cardiac: Regular. No murmurs Abdomen: Soft without obvious tenderness. PEG tube in place Skin: Incisions clean and dry.' Muscle: Nursing Unit Manager hands and moves toes bilaterally Neuro: Pt awakens to voice. Follows commands. Pupils 3mm bilaterally. Reactive bilaterally. Right CUSTOMER SUPPORT CONSULTANT shunt tract without edema Lab, Micro, Other Results 07/11/16 07/11/16 07/12/16 15:00 23:00 07:00 Output Total 900 ml Balance -900 ml Output Urine Total 900 ml # Voids 2 # Bowel Movements 1 2 1 Medical Decision Making Impression and Plan A: 46 y/o FM with neurologic exam stable following endovascular coiling of ruptured cerebral aneurysm with subsequent left decompressive craniotomy 04/14/16 CT angiogram stable: Status post endovascular repair of left supraclinoid aneurysm. Left M1 segment aneurysm stable 04/16/[address] and CTA stable. No vasospasm, no new hemorrhage. 04/22/16: Head CT 14mm left to right shift, and CTA perfusion, no vasospasm 04/28/16: stable, shift decreased to 7mm 05/01/16: stable, mild ventriculomegaly, improving mass effect and shift 05/02/16: CTA brain stable, no vasospasm reported Plan: Continue to monitor. Rehab pending. Nathen Braxton Jul 12, 2016 14:58
[2016-07-12 15:50] VITALS: BP 118/75; PULSE 72; RESP 18; TEMP 97.6; O2SAT 100
[2016-07-12 20:00] VITALS: BP 144/89; PULSE 91; RESP 20; TEMP 98.8; O2SAT 100
[2016-07-13] VITALS (7 sets, daily range): BP systolic 101–141; BP diastolic 60–79; PULSE 68–76; RESP 16–20; TEMP 97.8–98.7; O2SAT 95–100
[2016-07-13] MEDS ORDERED: CHLORHEXIDINE GLUCONATE 0.12% 30 ML CUP ONE ×2 (07:15→08:55)
[2016-07-13] MEDS ORDERED: BACITRACIN TOP OINT 15 GM TUBE ONE (07:16)
[2016-07-13] MEDS ORDERED: LIDOCAINE 2%/EPINEPHrine 1:100,000 30ML MDV ONE ×2 (07:16→07:18)
[2016-07-13] MEDS ORDERED: MICROFIBRILLAR COLLAGEN HEMOSTAT 1 GM PKT ONE (07:16)
[2016-07-13] MEDS: hydrALAZINE HCL 25 MG TAB TUBE SCH ×3 (07:32→22:00)
[2016-07-13] MEDS: LABETALOL HCL 300 MG TAB PO SCH ×3 (07:32→22:00)
[2016-07-13] MEDS ORDERED: ceFAZolin INJ 1,000 MG VIAL ONE (08:08)
[2016-07-13] MEDS ORDERED: BUPIVACAINE/EPINEPHRINE 0.5% PF 30 ML VIAL ONE (08:57)
[2016-07-13] MEDS: RANITIDINE HCL SYRUP 150 MG/10 ML UDC PO SCH ×2 (09:00→19:47)
[2016-07-13] MEDS: SODIUM CHLORIDE 0.9% FLUSH 5 ML FLUSH IVF SCH ×2 (09:00→19:48)
[2016-07-13] MEDS: ENOXAPARIN SODIUM 40 MG/0.4 ML SYRINGE SQ SCH (09:00)
[2016-07-13] MEDS: QUEtiapine FUMARATE 25 MG TAB PO SCH ×2 (09:00→19:47)
[2016-07-13] MEDS ORDERED: DO NOT ADM ANY ANTICOAGULANT DRUGS XX PRN (09:41)
[2016-07-13] MEDS ORDERED: methylPREDNISolone SOD SUCC 125 MG/2 ML VIAL ONE (10:08)
--- NOTE | 2016-07-13 11:05 | HHI.PR ---
Subjective Remarks Seen after the surgery today. She had low were her teeth extractions today by Dr. Booth. Tongue swelling actually is improved. Has some bloody discharge from the mouth. Denies having any pain. She is moving the arms and the legs. Trach in place. No fever or chills. No shortness of breath, palpitations or chest pain. No abdominal pain. Normal bowel movements. Objective Vitals Vital Signs Date Time Temp Pulse Resp B/P Pulse Ox O2 Delivery O2 Flow Rate FiO2 07/13/16 10:47 97.8 68 20 141/77 97 07/13/16 04:00 98.7 72 20 133/79 100 07/13/16 00:00 98.2 72 20 132/77 99 07/12/16 22:30 19 07/12/16 21:00 T-Piece 5.00 28 07/12/16 20:00 98.8 91 20 144/89 100 07/12/16 17:42 T-piece 6.00 28 07/12/16 15:50 97.6 72 18 118/75 100 07/12/16 14:25 100 T-piece 28 07/12/16 12:35 98.6 75 16 91/64 100 I/O 07/12/16 07/12/16 07/12/16 07/13/16 07/13/16 07/13/16 07:00 15:00 23:00 07:00 15:00 23:00 Intake Total 0 ml Output Total 900 ml 600 ml Balance -900 ml 0 ml -600 ml Intake Oral 0 ml Output Urine Total 900 ml 600 ml # Voids 2 4 # Bowel Movements 1 2 0 3 Imaging Last Impressions Head CT 05/23/16599 Signed Impressions: Service Date/Time: Monday, May 23, 2016 04:48 - CONCLUSION: 1. The left craniotomy defect has been repaired. 2. Small blood and air in the left subdural space, up to 6 mm in maximal thickness. Subdural drain in place. 3. Evolving encephalomalacia of the left frontal and temporal lobes. 4. 2 mm of rightward midline shift. 5. Shunted. No ventriculomegaly. Fei Hughes MD Chest X-Ray 05/17/16 06 Signed Impressions: Service Date/Time: Tuesday, May 17, 2016 04:59 - CONCLUSION: 1. Minimal basilar atelectasis. Cardiomegaly. Quinn Bateman MD Skull X-Ray 05/08/16 0000 Signed Impressions: Service Date/Time: May 10:16 - CONCLUSION: Shunt set to 70-80 mm H2O. Fei Snyder MD Head CTA 05/02/16 0600 Signed Impressions: Service Date/Time: Monday, May 02, 2016 04:32 - CONCLUSION: Satisfactory appearance post aneurysm coiling Fei Snyder MD Abdomen/Pelvis CT 04/24/16 1416 Signed Impressions: Service Date/Time: March 14:39 - CONCLUSION: Mild small bowel ileus with scattered air-fluid levels. Bibasilar lung consolidation with associated small effusions. Significant soft tissue fluid accumulation with edematous changes throughout the abdominal wall. Nasogastric tube in good position. Saqib Garcia MD Neck CTA 04/11/16 1151 Signed Impressions: Service Date/Time: Monday, April 11, 2016 12:01 - CONCLUSION: Negative for hemodynamically significant carotid stenosis. Ricardo Castellanos MD FACR Cerebral Arteriogram 04/11/16 0000 Signed Impressions: Service Date/Time: Monday, April 11, 2016 14:18 - CONCLUSION: 1. 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 This is the aneurysm felt responsible for the intracranial hemorrhage. 2. Small 4 mm left M1 segment aneurysm. Attempts at embolizing this aneurysm were unsuccessful due to the broad based nature of the aneurysm. Endovascular repair of this aneurysm could not be performed. Kennedy Thibodeaux Jr., MD Objective Remarks GENERAL: This is a well-nourished, well-developed patient, in no apparent distress. Tracheostomy. Swollen extruded tongue status post laceration repair. S/p lower teeth extraction by Dr Booth to imptove swelling of tongue. Minimal bloody discharge from mouth, minimal. patient is not in pain. CARDIOVASCULAR: Regular rate and rhythm without murmurs, gallops, or rubs. RESPIRATORY: Trach in place. Clear to auscultation. Breath sounds equal bilaterally. No wheezes, rales, or rhonchi. GASTROINTESTINAL: peg. Abdomen soft, non-tender, nondistended. Normal active bowel sounds MUSCULOSKELETAL: Extremities without clubbing, cyanosis, or edema. NEURO: Alert & Oriented x4 to person, place, time, situation. Moves left extremity is better than right ENT: enlarged tongue, good vascularization. 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 She was found unresponsive at home and had a blood pressure of 265/135. Patient was admitted to the ICU with a large hemispheric intraparenchymal hemorrhage with subarachnoid blood. Patient had a left middle cerebral artery aneurysm and did undergo endovascular coiling with subsequent tracheostomy and PEG tube placement. Patient also had a large laceration of her tongue which was repaired by oral Isaiah facial surgery 1. Acute subarachnoid hemorrhage with left middle cerebral artery aneurysm and status post endovascular coiling. Patient had evacuation of frontal temporal hematoma. Neurologically appears to be improving slowly 2. Malignant hypertension. Echocardiogram does show severe left concentric hypertrophy. Patient is now on Norvasc, labetalol, hydralazine. Avoid KISHA inhibitor's given traumatic tongue edema 3. Respiratory failure requiring tracheostomy for airway protection. This is secondary to SA hemorrhage. RT unable to place the fenestrated tube due to it being stuck and bleeding during the attempt. Respiratory status complicated due to severe tongue laceration and edema. NSGY to discuss with ENT regarding options (may need removal of tongue) 4. FEN: Jevity 1.5 at 60 mL an hour 5. Encephalopathy secondary to intracranial hemorrhage, continue Seroquel. Otherwise soft restraints as needed for patient safety 7. Macroglossia. Tongue edema again secondary to lower teeth biting with remaining upper teeth. S/P extraction of teeth to help reduce tongue edema 07/[address] Booth[address] Lovenox for DVT prophylaxis, hold if surgery Zantac for GI prophylaxis Discharge Planning Plan to DC to rehab when placement available Med list reviewed. Dee Henderson MD Jul 13, 2016 11:05
--- NOTE | 2016-07-13 11:40 | HHI.NSPN ---
History Chief Complaint: nonverbal. SAH s/p aneurysm coiling. Interval History 05/03/16: Pt with eyes open. Not following commands. Pupils 4mm bilaterally reactive bilaterally. Ventriculostomy in place at [id number]. ICP 8. 05/04/16: Pt with eyes open. Not following commands. Pupils 4mm bilaterally reactive bilaterally. Ventriculostomy in place at [id number]. ICP 8. 06/20/16: Pt opens eyes intermittently. Follow some simple commands intermittently. Not verbalizing. 06/21/16: Pt more awake today. complains of headache. She follows simple commands. Tongue remains swollen. Trach in place. 06/22/16: Pt awake and alert. Not verbalizing but communicates by blinking. She has a headache. Follows commands well. 06/25/16: Pt fatigues in afternoon. Not following commands. Not verbalizing or mouthing words. Participated with PT earlier today, fatigued now. 07/12/16: Pt opens eyes to voice. Not verbalizing. Follows commands well. [employer] Worker Helper hands and moves toes to command. Pupils 3mm bilaterally reactive bilaterally. 07/13/16: Pt opens eyes to voice. Nods head to questions. Follows simple commands. [employer]ra[employer] Worker Helper hands and moves toes to command. System Review Comments Not able to obtain. Exam Results Vital Signs Date Time Temp Pulse Resp B/P Pulse Ox O2 Delivery O2 Flow Rate FiO2 07/13/16 10:47 97.8 68 20 141/77 97 07/12/16 21:00 T-Piece 5.00 28 Intake and Output 07/12/16 07/12/16 07/13/16 08:00 16:00 00:00 Intake Total 0 ml Output Total 900 ml 600 ml Balance -900 ml 0 ml -600 ml Physical Examination ENT: Patient's tongue is still edematous. Pt had oral surgery this morning. Respirations: CTA bilaterally Trach in place. Cardiac: Regular. No murmurs Abdomen: Soft without obvious tenderness. PEG tube in place Skin: Scalp incisions clean and dry. Muscle: Terrazzo Worker Helper hands and moves toes bilaterally Neuro: Pt awakens to voice. Follows commands. Pupils 3mm bilaterally. Reactive bilaterally. Right DEALMAKER shunt tract without edema Lab, Micro, Other Results 07/12/16 07/12/16 07/13/16 15:00 23:00 07:00 Intake Total 0 ml Output Total 600 ml Balance 0 ml -600 ml Intake Oral 0 ml Output Urine Total 600 ml # Voids 2 4 # Bowel Movements 2 0 3 Medical Decision Making Impression and Plan A: 46 y/o FM with neurologic exam stable following endovascular coiling of ruptured cerebral aneurysm with subsequent left decompressive craniotomy 04/14/16 CT angiogram stable: Status post endovascular repair of left supraclinoid aneurysm. Left M1 segment aneurysm stable 04/16/[address] and CTA stable. No vasospasm, no new hemorrhage. 04/22/16: Head CT 14mm left to right shift, and CTA perfusion, no vasospasm 04/28/16: stable, shift decreased to 7mm 05/01/16: stable, mild ventriculomegaly, improving mass effect and shift 05/02/16: CTA brain stable, no vasospasm reported Plan: Continue to monitor. Rehab pending. Nathen Braxton Jul 13, 2016 11:40
[2016-07-13] MEDS ORDERED: NEOSTIGMINE 3 MG/3 ML SYR IV ONE (12:00)
[2016-07-13] MEDS ORDERED: NEOSTIGMINE IV ONE ×2 (12:00)
[2016-07-13] MEDS ORDERED: ONDANSETRON HCL 4 MG/2 ML VIAL IV PUSH ONE (12:00)
[2016-07-13] MEDS ORDERED: PROPOFOL 200 MG/20 ML AMP IV ONE (12:00)
[2016-07-13] MEDS ORDERED: methylPREDNISolone SOD SUCC 125 MG/2 ML VIAL IV SCH (17:00)
[2016-07-13] MEDS ORDERED: methylPREDNISolone ACETATE 80 MG/ML VIAL IM ONE (18:00)
[2016-07-13] MEDS: ACETAMINOPHEN/HYDROcodone 325 MG/5 MG TAB PO PRN (19:49)
[2016-07-13] MEDS ORDERED: hydrALAZINE HCL 20 MG/ML VIAL IV PRN (21:45)
[2016-07-13] MEDS ORDERED: cloNIDine HCL 0.1 MG TAB PO PRN (21:45)
[2016-07-14] VITALS (7 sets, daily range): BP systolic 122–153; BP diastolic 64–96; PULSE 61–82; RESP 16–20; TEMP 96.3–97.9; O2SAT 97–100
[2016-07-14] MEDS: hydrALAZINE HCL 25 MG TAB TUBE SCH ×2 (05:31→15:36)
[2016-07-14] MEDS: LABETALOL HCL 300 MG TAB PO SCH ×2 (05:31→15:36)
[2016-07-14] MEDS: ENOXAPARIN SODIUM 40 MG/0.4 ML SYRINGE SQ SCH (09:00)
[2016-07-14] MEDS: RANITIDINE HCL SYRUP 150 MG/10 ML UDC PO SCH ×2 (09:00→21:57)
[2016-07-14] MEDS: SODIUM CHLORIDE 0.9% FLUSH 5 ML FLUSH IVF SCH ×2 (09:00→21:58)
[2016-07-14] MEDS: QUEtiapine FUMARATE 25 MG TAB PO SCH ×2 (09:00→21:57)
--- NOTE | 2016-07-14 13:29 | HHI.PR ---
Subjective Remarks Follow-up dental extraction. No further bleeding. Still with tongue swelling. She is awake following simple commands. Patient able to cough. Currently on medical air 21%. Discussed with RN Objective Vitals Vital Signs Date Time Temp Pulse Resp B/P Pulse Ox O2 Delivery O2 Flow Rate FiO2 07/14/16 12:11 96.7 61 20 149/73 100 07/14/16 10:44 100 T-piece 6.00 28 07/14/16 08:00 96.3 65 20 137/79 100 07/14/16 05:32 20 153/96 100 07/14/16 00:00 96.3 82 16 131/69 100 07/13/16 21:59 19 07/13/16 21:30 T-Piece 5.00 28 07/13/16 20:55 95 T-piece 6.00 28 07/13/16 20:00 98.7 76 16 101/60 97 07/13/16 19:00 T-Piece 5.00 28 07/13/16 15:15 98.0 70 20 132/74 97 I/O 07/13/16 07/13/16 07/13/16 07/14/16 07/14/16 07/14/16 07:00 15:00 23:00 07:00 15:00 23:00 Intake Total 2267 ml 840 ml Output Total 50 ml 0 ml 0 ml Balance 2217 ml 0 ml 840 ml Intake Oral 0 ml IV Total 300 ml Tube Feeding 1467 ml 840 ml Other 500 ml Tube Feeding Residual Discard 0 ml 0 ml Estimated Blood Loss 50 ml # Voids 4 0 3 # Bowel Movements 3 2 Objective Remarks GENERAL: This is a well-nourished, well-developed patient, in no apparent distress. Tracheostomy. Swollen extruded tongue status post laceration repair. S/p lower teeth extraction by Dr Booth CARDIOVASCULAR: Regular rate and rhythm without murmurs, gallops, or rubs. RESPIRATORY: Trach in place. Clear to auscultation. Breath sounds equal bilaterally. No wheezes, rales, or rhonchi. GASTROINTESTINAL: peg in place. Abdomen soft, non-tender, nondistended. Normal active bowel sounds MUSCULOSKELETAL: Extremities without clubbing, cyanosis, or edema. NEURO: Alert & nonverbal secondary to tracheostomy. Allowing commands. 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 She was found unresponsive at home and had a blood pressure of 265/135. Patient was admitted to the ICU with a large hemispheric intraparenchymal hemorrhage with subarachnoid blood. Patient had a left middle cerebral artery aneurysm and did undergo endovascular coiling with subsequent tracheostomy and PEG tube placement. Patient also had a large laceration of her tongue which was repaired by oral Isaiah facial surgery 1. Acute subarachnoid hemorrhage with left middle cerebral artery aneurysm and status post endovascular coiling. Patient had evacuation of frontal temporal hematoma. Stable 2. Malignant hypertension. Echocardiogram does show severe left concentric hypertrophy. Patient is now on Norvasc, labetalol and hydralazine. Avoid KISHA inhibitor's given traumatic tongue edema 3. Respiratory failure requiring tracheostomy for airway protection. This is secondary to SA hemorrhage. RT unable to place the fenestrated tube due to it being stuck and bleeding during attempt. Respiratory status complicated due to severe tongue laceration and edema. NS to discuss with ENT regarding options ( may need removal of tongue) 4. FEN: Jevity 1.5 at 60 mL an hour 5. Encephalopathy secondary to intracranial hemorrhage, continue Seroquel. Otherwise soft restraints as needed for patient safety 6. Macroglossia. Tongue edema again secondary to lower teeth biting with remaining upper teeth. S/P extraction of teeth to help reduce tongue edema 07/[address] Booth. 7. Chronic mild Transaminitis. CT of the abdomen shows normal liver. Repeat LFTs in the morning Lovenox for DVT prophylaxis, if okay with oral surgery Zantac for GI prophylaxis Discharge Planning DC to rehab when arranged Michael Howard MD Jul 14, 2016 13:29
--- NOTE | 2016-07-14 20:29 | HHI.NSPN ---
History Chief Complaint: nonverbal. SAH s/p aneurysm coiling. Interval History 04/12/16: Patient had an aneurysm coiled 04/11/2016, intubated and sedated, ICP stable overnight 04/29/2016: Tracheostomy and PEG placement 06/03/16: Remains awake, primarily left lateral gaze. Grasp with left hand, not definitely to command. Exam Results Vital Signs Date Time Temp Pulse Resp B/P Pulse Ox O2 Delivery O2 Flow Rate FiO2 07/14/16 16:00 97.9 68 16 122/64 98 07/14/16 10:44 T-piece 6.00 28 Intake and Output 07/13/16 07/13/16 07/13/16 07:59 15:59 23:59 Intake Total 2267 ml Output Total 50 ml 0 ml Balance 2217 ml 0 ml Physical Examination ENT: Patient's tongue is still edematous. Pt had oral surgery this morning. Respirations: CTA bilaterally Trach in place. Cardiac: Regular. No murmurs Abdomen: Soft without obvious tenderness. PEG tube in place Skin: Scalp incisions clean and dry. 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 Follows commands. Pupils 3mm bilaterally. Reactive bilaterally. 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 Stable neurologic function over the past week. 2. Persistent tongue edema. Dental extraction today Plan: Continuing tube feedings for nutrition Wound care nurse evaluation for lumbosacral skin breakdown. Continuing decubitus precautions Tracheostomy care Continuing therapy Case management following She will need discharge to rehabilitation if arrangements can be made. Sherwin Meléndez MD Jul 14, 2016 20:29
--- NOTE | 2016-07-14 21:19 | HHI.PR ---
Subjective Remarks s/p extraction of periodontally, decayed, broken teeth 21-27, 29 and 12/13 pod 1 stabilization of tongue to help reduce tongue edema secondary to traumatic biting pt seen examined, trached followin gcommands Objective Vital Signs Date Time Temp Pulse Resp B/P Pulse Ox O2 Delivery O2 Flow Rate FiO2 07/14/16 20:29 97 T-piece 6.00 28 07/14/16 16:00 97.9 68 16 122/64 98 07/14/16 12:11 96.7 61 20 149/73 100 07/14/16 10:44 100 T-piece 6.00 28 07/14/16 08:00 96.3 65 20 137/79 100 07/14/16 07:00 Trach Collar 5.00 21 T-Piece Humidified 07/14/16 05:32 20 153/96 100 07/14/16 00:00 96.3 82 16 131/69 100 07/13/16 21:59 19 07/13/16 21:30 T-Piece 5.00 28 I/O 07/13/16 07/13/16 07/13/16 07/14/16 07/14/16 07/14/16 06:59 14:59 22:59 06:59 14:59 22:59 Intake Total 2267 ml 840 ml Output Total 50 ml 0 ml 0 ml Balance 2217 ml 0 ml 840 ml Intake Oral 0 ml IV Total 300 ml Tube Feeding 1467 ml 840 ml Other 500 ml Tube Feeding Residual Discard 0 ml 0 ml Estimated Blood Loss 50 ml # Voids 4 0 3 2 # Bowel Movements 3 2 0 Objective Remarks tongue edema stable, decreasing, wound margins well approximated, no tongue laceration. tongue pink and well perfused, extraction sites stable, hemostatic tongue position center, softer pt not cooperative to bite block, keeps spitting it out Assessment and Plan Assessment and Plan POD 1, s/p extraction of teeth maxillary teeth 12/13, and mandibular teeth 21- 17, 29 -decayed/periodontally involved causing traumatic biting to tongue, causing enlargement and stabilization of tongue tongue attached/pink and healthy/healing well tongue edema decreasing, softer, , extraction sites stable, hemostatic continue supportive care Steve Booth DMD Jul 14, 2016 21:19
[2016-07-15 04:00] VITALS: BP 155/87; PULSE 78; RESP 20; TEMP 97.3; O2SAT 97
[2016-07-15] MEDS: LABETALOL HCL 300 MG TAB PO SCH (06:34)
[2016-07-15] MEDS: hydrALAZINE HCL 25 MG TAB TUBE SCH ×3 (06:34→20:32)
[2016-07-15 06:48] LABS: AUTOMATED NEUTROPHIL # 3.6 TH/MM3 (1.8-7.7); BASOPHIL # 0.1 TH/MM3 (0-0.2); BASOPHIL % 0.9 % (0.0-2.0); EOSINOPHIL % 0.5 % (0.0-4.0); HEMATOCRIT 35.4 % (35.0-46.0); HEMO FLAGS DIFF FINAL; LYMPH % 41.4 % (9.0-44.0); MEAN CELL VOLUME 77.7 FL (80.0-100.0); MEAN CORPUSCULAR HEMOGLOBIN 25.6 PG (27.0-34.0); MEAN CORPUSCULAR HGB CONC 32.9 % (32.0-36.0); MONO % 7.1 % (0.0-8.0); NEUT % 50.1 % (16.0-70.0); PLATELET COUNT 251 TH/MM3 (150-450); RED BLOOD COUNT 4.55 MIL/MM3 (4.00-5.30); RED CELL DISTRIBUTION WIDTH 17.7 % (11.6-17.2); WHITE BLOOD COUNT 7.2 TH/MM3 (4.0-11.0)
[2016-07-15 07:06] LABS: ALKALINE PHOSPHATASE 94 U/L (45-117); ALT (GPT) 96 U/L (10-53); ANION GAP 8 MEQ/L (5-15); AST (GOT) 53 U/L (15-37); BLOOD UREA NITROGEN 18 MG/DL (7-18); CHLORIDE 103 MEQ/L (98-107); GLOMERULAR FILTRATION RATE 122 ML/MIN (>89); MAGNESIUM 1.8 MG/DL (1.5-2.5); POTASSIUM 3.5 MEQ/L (3.5-5.1); SODIUM (NA) 141 MEQ/L (136-145); TOTAL BILIRUBIN ADULT 0.4 MG/DL (0.2-1.0)
[2016-07-15] MEDS: SODIUM CHLORIDE 0.9% FLUSH 5 ML FLUSH IVF SCH ×2 (09:00→20:33)
[2016-07-15] MEDS: QUEtiapine FUMARATE 25 MG TAB PO SCH (09:38)
[2016-07-15] MEDS: RANITIDINE HCL SYRUP 150 MG/10 ML UDC PO SCH (09:38)
[2016-07-15 09:54] VITALS: BP 123/75; PULSE 62; RESP 18; TEMP 96.4; O2SAT 100
[2016-07-15] MEDS ORDERED: ACETAMINOPHEN 650 MG/20.3 ML UDC TUBE PRN (12:30)
[2016-07-15 13:25] VITALS: BP 124/79; PULSE 60; RESP 15; TEMP 96.1; O2SAT 100
[2016-07-15] MEDS: ENOXAPARIN SODIUM 40 MG/0.4 ML SYRINGE SQ SCH (13:34)
[2016-07-15] MEDS: LABETALOL HCL 300 MG TAB TUBE SCH ×2 (13:35→23:40)
--- NOTE | 2016-07-15 13:49 | MP ---
cc: YOLANDA BOOTH DMD DATE OF SURGERY: 07/13/2016 PREOPERATIVE DIAGNOSIS 1. Edematous tongue due to traumatic biting. 2. Broken/periodontally involved teeth #20, 12 and 29 roots, including teeth #13, 21, 22, 23, 24, 25, 26, 27. POSTOPERATIVE DIAGNOSIS 1. Edematous tongue due to traumatic biting. 2. Broken/periodontally involved teeth #20, 12 and 29 roots, including teeth #13, 21, 22, 23, 24, 25, 26, 27. PROCEDURE 1. Examination under anesthesia. 2. Extraction of roots #12 and 29, and teeth #21, 22, 23, 24, 25, 26 and 27. 3. Alveoplasty x1 quadrant. 4. Stabilization of tongue. 5. Oral hygiene. SURGEON Dr. Booth [employer] IN[employer] OR Staff ANESTHESIA General, also 2% lidocaine with 1:100,000 epinephrine approximately 7 cc, 0.5% Marcaine with 1:200,000 epinephrine approximately 3 cc at the end of the procedure. ESTIMATED BLOOD LOSS Minimal. COMPLICATIONS None. DISPOSITION The patient tolerated the procedure well. INDICATION FOR PROCEDURE This is a 46-year-old female who has been in the hospital for more than 3 months secondary to a brain bleed and she had coiling. Several months ago I had previously taken her back for a similar procedure with an edematous tongue when she almost bit off her tongue secondary to traumatic biting. I removed her maxillary upper teeth and sutured the tongue back up. The swelling resolved. The swelling has come back again. The patient still has a trach but is on the regular floor. She has an edematous tongue which is drooping more to the left side and she is biting it again and I can see the indentation from the lower teeth going into that site. The tongue is already out of the mouth. I did discuss this with her daughter yesterday, Ms. Hoskins, who was not able to come in last night but I spoke to her over the phone and went over the indications for removing these teeth and then trying to save the tongue, short of being a glossectomy. ENT consult is noted. The teeth can always be replaced with dentures or implants. The indications, risks and benefits of the procedure, the procedure in detail and the option of no treatment were discussed with the daughter, who is going to give the consent. All questions were answered. PROCEDURE IN DETAIL The patient was met perioperatively. The patient was a little bit more awake and alert today, nodding and following commands better today. The patient was taken to the operating suite and put on the table in supine position. Her eyes were taped shut. The vent was hooked up to her trach site. At this time a timeout was taken to identify the patient, the site, the procedure and the surgeon, and all were in agreement. I went to the sink to scrub and came back with sterile attire. The patient was prepped with Betadine solution and sterile drapes. Examination under anesthesia shows the tongue is very edematous in the midportion to the anterior part. The posterior part looks soft and normal. Lower teeth indentation, just biting through the lower aspect of the anterior part of the tongue, could be seen. It was not [id number], but you could see the trauma that was causing it. The tongue is still pink but it is firm. She also has broken roots, #13 and 29, and moving teeth/periodontal teeth 13, [address] to 27. After taking a tongue blade right over the anterior lower teeth you could see the indentation and the griggs, so at this point I proceeded with a removal of these teeth and stabilization of the tongue. 2% lidocaine with 1:100,000 epinephrine was injected in the maxillary vestibule on the left side in a left side inferior alveolar nerve block, mental nerve block bilaterally, and local infiltration on the lower mandibular anterior teeth. The mouth and back of the throat was suctioned. Moistened Ray-Lupe was used as a throat pack. A bite block was placed on the right side of the mouth. Peridex mouth rinse was done. Elevator forceps were used to gently remove roots #12 and 29 along with 13, and teeth #21 22, 23, 24, 25, 26 and 27. They were all periodontally involved and already moving. Once this was all done all the sites were irrigated with saline solution and Peridex solution. In the lower anterior region from - I trimmed the bone and trimmed the papilla. Irrigated all the extraction sites with saline and Peridex. Avitene was placed in every extraction site and closed with 3-0 chromic sutures. Once this was done I could already see the tongue was getting smaller in size. It looked a lot more pinker, a lot more healthy and well-perfused. There was no ulcerations or any lesions that I could appreciate at this time on the tongue. I gently put the tongue back into the mouth. She had such poor oral hygiene I took a brush soaked in Peridex and just did oral hygiene to clean her mouth and teeth. The rest of the dentition appears stable at this point on the right side, so she can use these to get a partial denture so she can eat better later on. Finally lidocaine was placed on either side of the site of the tongue and then injected into the site. 3-0 Vicryl sutures went through the tongue on either side and attached to the maxillary alveolus soft tissue, suspending the tongue so that it stabilizes that side so that she does not try to bite that again or try to deviate that. Prior to suspending the tongue the mouth was irrigated with saline solution again and Peridex. The back of the throat was suctioned. The throat pack was removed. The tongue was suspended as previously stated with 3-0 Vicryl sutures. The bite block was removed out of the mouth. Another bite block was placed into the mouth with the hole coming right on the outside. This is going to go back up to the room with the patient. Gauze was placed over the extraction sites for hemostasis. Good hemostasis was noted. All sponge and needle counts were accounted. Ancef one gram IV was given. Yolanda Booth DMD RRT/BT /9:45 AM /1:18 PM
--- NOTE | 2016-07-15 13:51 | HHI.PR ---
Subjective Remarks F/u tongue surgery. Discussed with OMFS, tongue is sutured. Tongue appears smaller. Patient able to cough. Discussed with RN Objective Vitals Vital Signs Date Time Temp Pulse Resp B/P Pulse Ox O2 Delivery O2 Flow Rate FiO2 07/15/16 13:25 96.1 60 15 124/79 100 07/15/16 09:54 96.4 62 18 123/75 100 07/15/16 07:00 Trach Collar 5.00 21 T-Piece Humidified 07/15/16 04:00 97.3 78 20 155/87 97 07/14/16 20:29 97 T-piece 6.00 28 07/14/16 19:40 Trach Collar 5.00 21 T-Piece Humidified 07/14/16 16:00 97.9 68 16 122/64 98 I/O 07/14/16 07/14/16 07/14/16 07/15/16 07/15/16 07/15/16 06:59 14:59 22:59 06:59 14:59 22:59 Intake Total 840 ml Output Total 0 ml Balance 840 ml Tube Feeding 840 ml Tube Feeding Residual Discard 0 ml # Voids 3 2 2 3 # Bowel Movements 2 0 3 3 Result Diagram: 07/15/1662607/15/16626 Objective Remarks GENERAL: This is a well-nourished, well-developed patient, in no apparent distress. Tracheostomy. Swollen extruded tongue status post laceration repair , appears smaller. S/p lower teeth extraction by Dr Booth CARDIOVASCULAR: Regular rate and rhythm without murmurs, gallops, or rubs. RESPIRATORY: Trach in place. Clear to auscultation. Breath sounds equal bilaterally. No wheezes, rales, or rhonchi. GASTROINTESTINAL: peg in place. Abdomen soft, non-tender, nondistended. Normal active bowel sounds MUSCULOSKELETAL: Extremities without clubbing, cyanosis, or edema. NEURO: Alert & nonverbal secondary to tracheostomy. Allowing commands. 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 She was found unresponsive at home and had a blood pressure of 265/135. Patient was admitted to the ICU with a large hemispheric intraparenchymal hemorrhage with subarachnoid blood. Patient had a left middle cerebral artery aneurysm and did undergo endovascular coiling with subsequent tracheostomy and PEG tube placement. Patient also had a large laceration of her tongue which was repaired by oral maxillary facial surgery 1. Acute subarachnoid hemorrhage with left middle cerebral artery aneurysm and status post endovascular coiling. Patient had evacuation of frontal temporal hematoma. Stable 2. Malignant hypertension. Echocardiogram does show severe left concentric hypertrophy. Patient is now on Norvasc, labetalol and hydralazine. Improving. Avoid KISHA inhibitor's given traumatic tongue edema 3. Respiratory failure requiring tracheostomy for airway protection. This is secondary to SA hemorrhage. RT unable to place the fenestrated tube due to it being stuck and bleeding during attempt. Respiratory status complicated due to severe tongue laceration and edema. NS to discuss with ENT regarding options ( may need removal of tongue) 4. FEN: Jevity 1.5 at 60 mL an hour 5. Encephalopathy secondary to intracranial hemorrhage, continue Seroquel. Otherwise soft restraints as needed for patient safety 6. Macroglossia. Tongue edema again secondary to lower teeth biting with remaining upper teeth. S/P extraction of teeth to help reduce tongue edema 07/[address] Booth. Improving 7. Chronic mild Transaminitis. CT of the abdomen shows normal liver. Repeat LFTs stable check hepatitis profile Lovenox for DVT prophylaxis okay with oral surgery Zantac for GI prophylaxis Discharge Planning DC to rehab when arranged Michael Howard MD Jul 15, 2016 13:51
--- NOTE | 2016-07-15 14:05 | HHI.NSPN ---
History Chief Complaint: nonverbal. SAH s/p aneurysm coiling. Interval History 04/12/16: Patient had an aneurysm coiled 04/11/2016, intubated and sedated, ICP stable overnight 04/29/2016: Tracheostomy and PEG placement 06/03/16: Remains awake, primarily left lateral gaze. Grasp with left hand, not definitely to command. Exam Results Vital Signs Date Time Temp Pulse Resp B/P Pulse Ox O2 Delivery O2 Flow Rate FiO2 07/15/16 13:25 96.1 60 15 124/79 100 07/15/16 07:00 Trach Collar 5.00 21 T-Piece Humidified Intake and Output 07/14/16 07/14/16 07/15/16 08:00 16:00 00:00 Intake Total 840 ml Output Total 0 ml Balance 840 ml Physical Examination ENT: Patient's tongue is still edematous. Status post surgery by OMFS 07/14/16 Respirations: CTA bilaterally Trach in place. Cardiac: Regular. No murmurs Abdomen: Soft without obvious tenderness. PEG tube in place Skin: Scalp incisions clean and dry. Muscle: Merchant Miller hands and moves toes bilaterally Neuro: Awake and alert. Follows commands. Motions with her hands. Tracks to the right and left with mild disconjugate gaze. Pupils 3mm bilaterally. Reactive bilaterally. Right HISTOPATH TECH shunt tract without edema Lab, Micro, Other Results Laboratory Tests Test 07/15/16 06:27 White Blood Count 7.2 TH/MM3 Red Blood Count 4.55 MIL/MM3 Hemoglobin 11.6 GM/DL Hematocrit 35.4 % Mean Corpuscular Volume 77.7 FL Mean Corpuscular Hemoglobin 25.6 PG Mean Corpuscular Hemoglobin 32.9 % Concent Red Cell Distribution Width 17.7 % Platelet Count 251 TH/MM3 Mean Platelet Volume 8.5 FL Neutrophils (%) (Auto) 50.1 % Lymphocytes (%) (Auto) 41.4 % Monocytes (%) (Auto) 7.1 % Eosinophils (%) (Auto) 0.5 % Basophils (%) (Auto) 0.9 % Neutrophils # (Auto) 3.6 TH/MM3 Lymphocytes # (Auto) 3.0 TH/MM3 Monocytes # (Auto) 0.5 TH/MM3 Eosinophils # (Auto) 0.0 TH/MM3 Basophils # (Auto) 0.1 TH/MM3 CBC Comment DIFF FINAL Differential Comment Sodium Level 141 MEQ/L Potassium Level 3.5 MEQ/L Chloride Level 103 MEQ/L Carbon Dioxide Level 30.0 MEQ/L Anion Gap 8 MEQ/L Blood Urea Nitrogen 18 MG/DL Creatinine 0.63 MG/DL Estimat Glomerular Filtration 122 ML/MIN Rate Random Glucose 82 MG/DL Calcium Level 9.6 MG/DL Magnesium Level 1.8 MG/DL Total Bilirubin 0.4 MG/DL Aspartate Amino Transf 53 U/L (AST/SGOT) Alanine Aminotransferase 96 U/L (ALT/SGPT) Alkaline Phosphatase 94 U/L Total Protein 7.1 GM/DL Albumin 3.3 GM/DL Medical Decision Making Impression and Plan Impression: 1. Stable neurologic function over the past week. 2. Persistent tongue edema. Dental extraction 07/14/16 Plan: Continuing tube feedings for nutrition Wound care nurse following for lumbosacral skin breakdown. Continuing decubitus precautions Tracheostomy care Continuing therapy Case management following She will need discharge to rehabilitation if arrangements can be made. Sherwin Meléndez MD Jul 15, 2016 14:05
[2016-07-15] MEDS ORDERED: cloNIDine HCL 0.1 MG TAB TUBE PRN (16:00)
[2016-07-15 17:23] VITALS: BP 128/78; PULSE 74; RESP 18; TEMP 97; O2SAT 100
[2016-07-15 18:31] VITALS: O2SAT 99
[2016-07-15 20:00] VITALS: BP 160/86; PULSE 61; RESP 18; TEMP 97.7; O2SAT 100
[2016-07-15] MEDS: RANITIDINE HCL SYRUP 150 MG/10 ML UDC TUBE SCH (20:33)
[2016-07-15] MEDS: QUEtiapine FUMARATE 25 MG TAB TUBE SCH (20:33)
[2016-07-16] VITALS (9 sets, daily range): BP systolic 102–163; BP diastolic 63–86; PULSE 59–78; RESP 18–20; TEMP 96.2–98.3; O2SAT 98–100
[2016-07-16] MEDS: hydrALAZINE HCL 25 MG TAB TUBE SCH ×3 (06:52→22:15)
[2016-07-16] MEDS: LABETALOL HCL 300 MG TAB TUBE SCH ×3 (06:52→22:22)
[2016-07-16] MEDS: RANITIDINE HCL SYRUP 150 MG/10 ML UDC TUBE SCH ×2 (09:43→22:15)
[2016-07-16] MEDS: QUEtiapine FUMARATE 25 MG TAB TUBE SCH ×2 (09:43→22:15)
[2016-07-16] MEDS: SODIUM CHLORIDE 0.9% FLUSH 5 ML FLUSH IVF SCH ×2 (09:44→22:23)
[2016-07-16] MEDS: ENOXAPARIN SODIUM 40 MG/0.4 ML SYRINGE SQ SCH (09:44)
--- NOTE | 2016-07-16 12:51 | HHI.PR ---
Subjective Remarks Follow-up tongue trauma. Improved swelling of the tongue. Patient awake out of bed to chair. Discussed with RN Objective Vitals Vital Signs Date Time Temp Pulse Resp B/P Pulse Ox O2 Delivery O2 Flow Rate FiO2 07/16/16 12:00 97.1 78 18 116/77 100 07/16/16 08:00 96.2 70 18 102/73 99 07/16/16 05:03 98 T-piece 28 07/16/16 04:09 97.4 68 18 139/86 100 07/16/16 00:32 97.0 59 19 163/83 100 07/15/16 20:00 97.7 61 18 160/86 100 07/15/16 19:00 Trach Collar 5.00 21 07/15/16 18:31 99 T-piece 28 07/15/16 18:20 T-piece 6.00 28 07/15/16 17:23 97.0 74 18 128/78 100 07/15/16 13:25 96.1 60 15 124/79 100 I/O 07/15/16 07/15/16 07/15/16 07/16/16 07/16/16 07/16/16 06:59 14:59 22:59 06:59 14:59 22:59 # Voids 3 6 2 # Bowel Movements 3 1 Result Diagram: 07/15/1662607/15/16626 Objective Remarks GENERAL: This is a well-nourished, well-developed patient, in no apparent distress. Tracheostomy. Swollen extruded tongue status post laceration repair , improving appears smaller. S/p lower teeth extraction by Dr Booth CARDIOVASCULAR: Regular rate and rhythm without murmurs, gallops, or rubs. RESPIRATORY: Trach in place. Clear to auscultation. Breath sounds equal bilaterally. No wheezes, rales, or rhonchi. GASTROINTESTINAL: peg in place. Abdomen soft, non-tender, nondistended. Normal active bowel sounds MUSCULOSKELETAL: Extremities without clubbing, cyanosis, or edema. NEURO: Alert & nonverbal secondary to tracheostomy. Allowing commands. 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 She was found unresponsive at home and had a blood pressure of 265/135. Patient was admitted to the ICU with a large hemispheric intraparenchymal hemorrhage with subarachnoid blood. Patient had a left middle cerebral artery aneurysm and did undergo endovascular coiling with subsequent tracheostomy and PEG tube placement. Patient also had a large laceration of her tongue which was repaired by oral maxillary facial surgery 1. Acute subarachnoid hemorrhage with left middle cerebral artery aneurysm and status post endovascular coiling. Patient had evacuation of frontal temporal hematoma. Stable 2. Malignant hypertension. Echocardiogram does show severe left concentric hypertrophy. Patient is now on Norvasc, labetalol and hydralazine. Improving. Avoid KISHA inhibitor's given traumatic tongue edema 3. Respiratory failure requiring tracheostomy for airway protection. This is secondary to SA hemorrhage. RT unable to place the fenestrated tube due to it being stuck and bleeding during attempt. Respiratory status complicated due to severe tongue laceration and edema. NS to discuss with ENT regarding options ( may need removal of tongue) 4. FEN: Jevity 1.5 at 60 mL an hour 5. Encephalopathy secondary to intracranial hemorrhage, continue Seroquel. Otherwise soft restraints as needed for patient safety 6. Macroglossia. Tongue edema again secondary to lower teeth biting with remaining upper teeth. S/P extraction of teeth to help reduce tongue edema 07/[address] Booth. Improving 7. Chronic mild Transaminitis. CT of the abdomen shows normal liver. Repeat LFTs stable negative hepatitis profile Lovenox for DVT prophylaxis okay with oral surgery Zantac for GI prophylaxis Discharge Planning DC to rehab when arranged Michael Howard MD Jul 16, 2016 12:51
--- NOTE | 2016-07-16 20:07 | HHI.NSPN ---
History Chief Complaint: nonverbal. SAH s/p aneurysm coiling. Interval History 04/12/16: Patient had an aneurysm coiled 04/11/2016, intubated and sedated, ICP stable overnight 04/29/2016: Tracheostomy and PEG placement 06/03/16: Remains awake, primarily left lateral gaze. Grasp with left hand, not definitely to command. Exam Results Vital Signs Date Time Temp Pulse Resp B/P Pulse Ox O2 Delivery O2 Flow Rate FiO2 07/16/16 18:05 100 T-piece 6.00 28 07/16/16 16:00 98.2 67 18 113/63 Physical Examination ENT: Patient's tongue is still edematous. Status post surgery by OMFS 07/14/16 Respirations: CTA bilaterally Trach in place. Cardiac: Regular. No murmurs Abdomen: Soft without obvious tenderness. PEG tube in place Skin: Scalp incisions clean and dry. Muscle: Cone Former hands and moves toes bilaterally Neuro: Awake and alert. Follows commands. Motions with her hands. Tracks to the right and left with mild disconjugate gaze. Pupils 3mm bilaterally. Reactive bilaterally. Right REGIONAL PROJECT MANAGER shunt tract without edema Medical Decision Making Impression and Plan Impression: 1. Stable neurologic function over the past week. 2. Persistent tongue edema. Dental extraction 07/14/16 Plan: The patient's findings and prognosis and treatment plan were discussed at length with her family in the patient's room today. Prognosis remains guarded for further recovery. Continuing tube feedings for nutrition Wound care nurse following for lumbosacral skin breakdown. Continuing decubitus precautions Tracheostomy care Continuing therapy Case management following She will need discharge to rehabilitation if arrangements can be made. Sherwin Meléndez MD Jul 16, 2016 20:07
[2016-07-17] VITALS (7 sets, daily range): BP systolic 94–138; BP diastolic 55–80; PULSE 70–79; RESP 20; TEMP 96.9–98.8; O2SAT 94–100
[2016-07-17] MEDS: QUEtiapine FUMARATE 25 MG TAB TUBE SCH ×2 (08:26→22:00)
[2016-07-17] MEDS: RANITIDINE HCL SYRUP 150 MG/10 ML UDC TUBE SCH ×2 (08:26→22:00)
[2016-07-17] MEDS: ENOXAPARIN SODIUM 40 MG/0.4 ML SYRINGE SQ SCH (08:26)
[2016-07-17] MEDS: SODIUM CHLORIDE 0.9% FLUSH 5 ML FLUSH IVF SCH ×2 (08:27→22:00)
--- NOTE | 2016-07-17 10:40 | HHI.NSPN ---
History Chief Complaint: nonverbal. SAH s/p aneurysm coiling. Interval History 04/12/16: Patient had an aneurysm coiled 04/11/2016, intubated and sedated, ICP stable overnight 04/29/2016: Tracheostomy and PEG placement 06/03/16: Remains awake, primarily left lateral gaze. Grasp with left hand, not definitely to command. Exam Results Vital Signs Date Time Temp Pulse Resp B/P Pulse Ox O2 Delivery O2 Flow Rate FiO2 07/17/16 08:00 96.9 71 20 138/75 100 07/16/16 20:00 Trach Collar 5.00 21 Physical Examination ENT: Patient's tongue is still edematous. Status post surgery by OMFS 07/14/16 Respirations: CTA bilaterally Trach in place. Cardiac: Regular. No murmurs Abdomen: Soft without obvious tenderness. PEG tube in place Skin: Scalp incisions clean and dry. Muscle: Concrete Craftsman hands and moves toes bilaterally Neuro: Awake and alert. Follows commands. Motions with her hands. Tracks to the right and left with mild disconjugate gaze. Pupils 3mm bilaterally. Reactive bilaterally. Right HALF SOLE FITTER shunt tract without edema Medical Decision Making Impression and Plan Impression: 1. Stable neurologic function over the past week. 2. Persistent tongue edema. Dental extraction 07/14/16 Plan: The patient's findings and prognosis and treatment plan were discussed at length with her family in the patient's room today. Prognosis remains guarded for further recovery. Continuing tube feedings for nutrition Wound care nurse following for lumbosacral skin breakdown. Continuing decubitus precautions Tracheostomy care Continuing therapy Case management following She will need discharge to rehabilitation if arrangements can be made. Sherwin Meléndez MD Jul 17, 2016 10:40
--- NOTE | 2016-07-17 12:54 | HHI.PR ---
Subjective Remarks Follow-up hypertension. Patient has no complaints. Resting. Dw RN Objective Vitals Vital Signs Date Time Temp Pulse Resp B/P Pulse Ox O2 Delivery O2 Flow Rate FiO2 07/17/16 08:25 Trach Collar 07/17/16 08:00 96.9 71 20 138/75 100 07/17/16 04:00 98.8 74 20 122/80 94 07/17/16 00:00 97.9 79 20 94/55 99 07/16/16 20:00 Trach Collar 5.00 21 07/16/16 20:00 98.3 75 20 122/83 99 07/16/16 18:05 100 T-piece 6.00 28 07/16/16 16:00 98.2 67 18 113/63 100 I/O 07/16/16 07/16/16 07/16/16 07/17/16 07/17/16 07/17/16 07:00 15:00 23:00 07:00 15:00 23:00 # Voids 2 2 2 3 # Bowel Movements 0 0 Result Diagram: 07/15/1662607/15/16626 Objective Remarks GENERAL: This is a well-nourished, well-developed patient, in no apparent distress. Tracheostomy. Swollen extruded tongue status post laceration repair , improving appears smaller. S/p lower teeth extraction by Dr Booth CARDIOVASCULAR: Regular rate and rhythm without murmurs, gallops, or rubs. RESPIRATORY: Trach in place. Clear to auscultation. Breath sounds equal bilaterally. No wheezes, rales, or rhonchi. GASTROINTESTINAL: peg in place. Abdomen soft, non-tender, nondistended. Normal active bowel sounds MUSCULOSKELETAL: Extremities without clubbing, cyanosis, or edema. NEURO: Alert & nonverbal secondary to tracheostomy. Allowing commands. 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 She was found unresponsive at home and had a blood pressure of 265/135. Patient was admitted to the ICU with a large hemispheric intraparenchymal hemorrhage with subarachnoid blood. Patient had a left middle cerebral artery aneurysm and did undergo endovascular coiling with subsequent tracheostomy and PEG tube placement. Patient also had a large laceration of her tongue which was repaired by oral maxillary facial surgery 1. Acute subarachnoid hemorrhage with left middle cerebral artery aneurysm and status post endovascular coiling. Patient had evacuation of frontal temporal hematoma. Stable 2. Malignant hypertension. Echocardiogram does show severe left concentric hypertrophy. Patient is now on Norvasc, labetalol and hydralazine. Improving. Avoid KISHA inhibitor's given traumatic tongue edema 3. Respiratory failure requiring tracheostomy for airway protection. This is secondary to SA hemorrhage. RT unable to place the fenestrated tube due to it being stuck and bleeding during attempt. Respiratory status complicated due to severe tongue laceration and edema. NS to discuss with ENT regarding options ( may need removal of tongue) 4. FEN: Jevity 1.5 at 60 mL an hour 5. Encephalopathy secondary to intracranial hemorrhage, continue Seroquel. Otherwise soft restraints as needed for patient safety 6. Macroglossia. Tongue edema again secondary to lower teeth biting with remaining upper teeth. S/P extraction of teeth to help reduce tongue edema 07/[address] Booth. Improving 7. Chronic mild Transaminitis. CT of the abdomen shows normal liver. Repeat LFTs stable negative hepatitis profile Lovenox for DVT prophylaxis okay with oral surgery Zantac for GI prophylaxis Discharge Planning DC to rehab when arranged Michael Howard MD Jul 17, 2016 12:53
[2016-07-17] MEDS: hydrALAZINE HCL 25 MG TAB TUBE SCH ×2 (13:29→22:00)
[2016-07-17] MEDS: LABETALOL HCL 300 MG TAB TUBE SCH ×2 (13:29→22:01)
[2016-07-18] VITALS (8 sets, daily range): BP systolic 121–154; BP diastolic 64–88; PULSE 64–90; RESP 14–20; TEMP 95.4–97.8; O2SAT 98–100
[2016-07-18] MEDS: LABETALOL HCL 300 MG TAB TUBE SCH ×3 (06:15→21:10)
[2016-07-18] MEDS: hydrALAZINE HCL 25 MG TAB TUBE SCH ×3 (06:15→21:10)
[2016-07-18] MEDS: ACETAMINOPHEN/HYDROcodone 325 MG/5 MG TAB TUBE PRN (10:08)
[2016-07-18] MEDS: ENOXAPARIN SODIUM 40 MG/0.4 ML SYRINGE SQ SCH (10:08)
[2016-07-18] MEDS: RANITIDINE HCL SYRUP 150 MG/10 ML UDC TUBE SCH ×2 (10:09→21:10)
[2016-07-18] MEDS: SODIUM CHLORIDE 0.9% FLUSH 5 ML FLUSH IVF SCH ×2 (10:09→21:11)
[2016-07-18] MEDS: QUEtiapine FUMARATE 25 MG TAB TUBE SCH ×2 (10:09→21:10)
--- NOTE | 2016-07-18 12:17 | HHI.PR ---
Subjective Remarks Hypertension. BP readings stable. Discussed with RN Objective Vitals Vital Signs Date Time Temp Pulse Resp B/P Pulse Ox O2 Delivery O2 Flow Rate FiO2 07/18/16 11:40 98 T-piece 6.00 28 07/18/16 08:00 96.2 75 16 123/76 100 07/18/16 05:41 T-Piece 28 Humidified 07/18/16 04:00 96.7 71 20 154/88 100 07/18/16 00:00 97.8 69 20 121/73 100 07/17/16 21:30 100 T-piece 28 07/17/16 20:00 98.2 70 20 129/77 100 07/17/16 16:00 97.0 72 20 122/79 100 07/17/16 13:26 97.4 72 20 121/66 100 I/O 07/17/16 07/17/16 07/17/16 07/18/16 07/18/16 07/18/16 06:59 14:59 22:59 06:59 14:59 22:59 Intake Total 992 ml 760 ml Balance 992 ml 760 ml Tube Feeding 792 ml 460 ml Other 200 ml 300 ml # Voids 3 3 3 3 # Bowel Movements 0 1 1 Result Diagram: 07/15/1662607/15/16626 Objective Remarks GENERAL: This is a well-nourished, well-developed patient, in no apparent distress. Tracheostomy. Swollen extruded tongue status post laceration repair , improving appears smaller. S/p lower teeth extraction by Dr Booth CARDIOVASCULAR: Regular rate and rhythm without murmurs, gallops, or rubs. RESPIRATORY: Trach in place. Clear to auscultation. Breath sounds equal bilaterally. No wheezes, rales, or rhonchi. GASTROINTESTINAL: peg in place. Abdomen soft, non-tender, nondistended. Normal active bowel sounds MUSCULOSKELETAL: Extremities without clubbing, cyanosis, or edema. NEURO: Alert & nonverbal secondary to tracheostomy. Allowing commands. 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 She was found unresponsive at home and had a blood pressure of 265/135. Patient was admitted to the ICU with a large hemispheric intraparenchymal hemorrhage with subarachnoid blood. Patient had a left middle cerebral artery aneurysm and did undergo endovascular coiling with subsequent tracheostomy and PEG tube placement. Patient also had a large laceration of her tongue which was repaired by oral maxillary facial surgery 1. Acute subarachnoid hemorrhage with left middle cerebral artery aneurysm and status post endovascular coiling. Patient had evacuation of frontal temporal hematoma. Stable 2. Malignant hypertension. Echocardiogram does show severe left concentric hypertrophy. Patient is now on Norvasc, labetalol and hydralazine. Improving. Avoid KISHA inhibitor's given traumatic tongue edema 3. Respiratory failure requiring tracheostomy for airway protection. This is secondary to SA hemorrhage. RT unable to place the fenestrated tube due to it being stuck and bleeding during attempt. Respiratory status complicated due to severe tongue laceration and edema. NS to discuss with ENT regarding options ( may need removal of tongue) 4. FEN: Jevity 1.5 at 60 mL an hour 5. Encephalopathy secondary to intracranial hemorrhage, continue Seroquel. Otherwise soft restraints as needed for patient safety 6. Macroglossia. Tongue edema again secondary to lower teeth biting with remaining upper teeth. S/P extraction of teeth to help reduce tongue edema 07/[address] Booth. Improving. RN to follow up 7. Chronic mild Transaminitis. CT of the abdomen shows normal liver. Repeat LFTs stable negative hepatitis profile Lovenox for DVT prophylaxis okay with oral surgery Zantac for GI prophylaxis Discharge Planning DC to rehab when arranged Michael Howard MD Jul 18, 2016 12:17
--- NOTE | 2016-07-18 21:25 | HHI.NSPN ---
History Chief Complaint: nonverbal. SAH s/p aneurysm coiling. Interval History 04/12/16: Patient had an aneurysm coiled 04/11/2016, intubated and sedated, ICP stable overnight 04/29/2016: Tracheostomy and PEG placement 06/03/16: Remains awake, primarily left lateral gaze. Grasp with left hand, not definitely to command. Exam Results Vital Signs Date Time Temp Pulse Resp B/P Pulse Ox O2 Delivery O2 Flow Rate FiO2 07/18/16 18:00 64 16 128/78 100 07/18/16 17:54 T-piece 6.00 28 07/18/16 16:00 97.1 Intake and Output 07/17/16 07/17/16 07/18/16 08:00 16:00 00:00 Intake Total 992 ml Balance 992 ml Physical Examination ENT: Patient's tongue is still edematous. Status post surgery by OMFS 07/14/16 Respirations: CTA bilaterally Trach in place. Cardiac: Regular. No murmurs Abdomen: Soft without obvious tenderness. PEG tube in place Skin: Scalp incisions clean and dry. Muscle: Tattoo Artist hands and moves toes bilaterally Neuro: Awake and alert. Follows commands. Motions with her hands. Tracks to the right and left with mild disconjugate gaze. Pupils 3mm bilaterally. Reactive bilaterally. Right CASING COOKER shunt tract without edema Medical Decision Making Impression and Plan Impression: 1. Stable neurologic function over the past week. 2. Persistent tongue edema. Dental extraction 07/14/16 Plan: The patient's findings and prognosis and treatment plan were discussed at length with her family in the patient's room today. Prognosis remains guarded for further recovery. Continuing tube feedings for nutrition Wound care nurse following for lumbosacral skin breakdown. Continuing decubitus precautions Tracheostomy care Continuing therapy Case management following She will need discharge to rehabilitation if arrangements can be made. Sherwin Meléndez MD Jul 18, 2016 21:25
[2016-07-19] VITALS (9 sets, daily range): BP systolic 114–135; BP diastolic 58–78; PULSE 60–76; RESP 14–18; TEMP 95.4–97.8; O2SAT 66–100
[2016-07-19] MEDS: hydrALAZINE HCL 25 MG TAB TUBE SCH ×3 (06:25→22:14)
[2016-07-19] MEDS: LABETALOL HCL 300 MG TAB TUBE SCH ×3 (06:26→22:14)
[2016-07-19] MEDS: ACETAMINOPHEN/HYDROcodone 325 MG/5 MG TAB TUBE PRN (06:27)
[2016-07-19] MEDS: SODIUM CHLORIDE 0.9% FLUSH 5 ML FLUSH IVF SCH ×2 (09:00→22:14)
[2016-07-19] MEDS: QUEtiapine FUMARATE 25 MG TAB TUBE SCH ×2 (09:24→22:14)
[2016-07-19] MEDS: RANITIDINE HCL SYRUP 150 MG/10 ML UDC TUBE SCH ×2 (09:24→22:14)
[2016-07-19] MEDS: ENOXAPARIN SODIUM 40 MG/0.4 ML SYRINGE SQ SCH (09:25)
--- NOTE | 2016-07-19 11:04 | HHI.PR ---
Subjective Remarks Follow-up hypertension. Patient awake indicates no pain. Discussed with RN Objective Vitals Vital Signs Date Time Temp Pulse Resp B/P Pulse Ox O2 Delivery O2 Flow Rate FiO2 07/19/16 09:51 T-Piece 5.00 28 Humidified 07/19/16 09:22 98 T-piece 6.00 28 07/19/16 08:00 96.6 66 16 134/58 100 07/19/16 04:31 T-Piece 28 Humidified 07/19/16 04:05 99 T-piece 28 07/19/16 04:00 95.4 66 16 135/78 100 07/19/16 00:00 95.5 66 14 114/68 66 07/18/16 20:00 95.4 90 14 131/85 100 07/18/16 18:00 64 16 128/78 100 07/18/16 17:54 T-piece 6.00 28 07/18/16 16:00 97.1 74 16 121/64 99 07/18/16 15:52 T-Piece 5.00 28 Humidified 07/18/16 12:00 97.0 67 16 143/83 98 07/18/16 11:40 98 T-piece 6.00 28 I/O 07/18/16 07/18/16 07/18/16 07/19/16 07/19/16 07/19/16 06:59 14:59 22:59 06:59 14:59 22:59 Intake Total 760 ml 859 ml Balance 760 ml 859 ml Tube Feeding 460 ml 559 ml Other 300 ml 300 ml # Voids 3 3 2 4 # Bowel Movements 1 Result Diagram: 07/15/1662607/15/16626 Objective Remarks GENERAL: This is a well-nourished, well-developed patient, in no apparent distress. Tracheostomy. Swollen extruded tongue status post laceration repair , improving appears smaller. S/p lower teeth extraction by Dr Booth CARDIOVASCULAR: Regular rate and rhythm without gallops, or rubs. Murmur noted RESPIRATORY: Trach in place. Clear to auscultation. Breath sounds equal bilaterally. No wheezes, rales, or rhonchi. GASTROINTESTINAL: peg in place. Abdomen soft, non-tender, nondistended. Normal active bowel sounds MUSCULOSKELETAL: Extremities without clubbing, cyanosis, or edema. NEURO: Alert & nonverbal secondary to tracheostomy. Allowing commands. 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 She was found unresponsive at home and had a blood pressure of 265/135. Patient was admitted to the ICU with a large hemispheric intraparenchymal hemorrhage with subarachnoid blood. Patient had a left middle cerebral artery aneurysm and did undergo endovascular coiling with subsequent tracheostomy and PEG tube placement. Patient also had a large laceration of her tongue which was repaired by oral maxillary facial surgery 1. Acute subarachnoid hemorrhage with left middle cerebral artery aneurysm and status post endovascular coiling. Patient had evacuation of frontal temporal hematoma. Stable 2. Malignant hypertension. Echocardiogram does show severe left concentric hypertrophy. Patient is now on Norvasc, labetalol and hydralazine. Improving. Avoid KISHA inhibitor's given traumatic tongue edema 3. Respiratory failure requiring tracheostomy for airway protection. This is secondary to SA hemorrhage. RT unable to place the fenestrated tube due to it being stuck and bleeding during attempt. Respiratory status complicated due to severe tongue laceration and edema. NS to discuss with ENT regarding options ( may need removal of tongue) 4. FEN: Jevity 1.5 at 60 mL an hour 5. Encephalopathy secondary to intracranial hemorrhage, continue Seroquel. Otherwise soft restraints as needed for patient safety 6. Macroglossia. Tongue edema again secondary to lower teeth biting with remaining upper teeth. S/P extraction of teeth to help reduce tongue edema 11/[address] Booth. Improving. RN to follow up 7. Chronic mild Transaminitis. CT of the abdomen shows normal liver. Repeat LFTs stable negative hepatitis profile Lovenox for DVT prophylaxis okay with oral surgery Zantac for GI prophylaxis Discharge Planning DC to rehab when arranged Michael Howard MD Jul 19, 2016 11:04
--- NOTE | 2016-07-19 20:20 | HHI.NSPN ---
History Chief Complaint: nonverbal. SAH s/p aneurysm coiling. Interval History 04/12/16: Patient had an aneurysm coiled 04/11/2016, intubated and sedated, ICP stable overnight 04/29/2016: Tracheostomy and PEG placement 06/03/16: Remains awake, primarily left lateral gaze. Grasp with left hand, not definitely to command. Exam Results Vital Signs Date Time Temp Pulse Resp B/P Pulse Ox O2 Delivery O2 Flow Rate FiO2 07/19/16 16:00 97.8 71 17 121/75 100 07/19/16 09:51 T-Piece 5.00 28 Humidified Intake and Output 07/18/16 07/18/16 07/19/16 08:00 16:00 00:00 Intake Total 760 ml Balance 760 ml Physical Examination ENT: Patient's tongue is still edematous. Status post surgery by OMFS 07/14/16 Respirations: CTA bilaterally Trach in place. Cardiac: Regular. No murmurs Abdomen: Soft without obvious tenderness. PEG tube in place Skin: Scalp incisions clean and dry. Muscle: Institutional Asset Manager hands and moves toes bilaterally Neuro: Awake and alert. Follows commands. Motions with her hands. Tracks to the right and left with mild disconjugate gaze. Pupils 3mm bilaterally. Reactive bilaterally. Right CONVENTIONAL MACHINIST shunt tract without edema Medical Decision Making Impression and Plan Impression: 1. Stable neurologic function over the past week. 2. Persistent tongue edema. Dental extraction 07/14/16 Plan: Continuing tube feedings for nutrition Wound care nurse following for lumbosacral skin breakdown. Continuing decubitus precautions Tracheostomy care Continuing therapy Case management following She will need discharge to rehabilitation if arrangements can be made. Sherwin Meléndez MD Jul 19, 2016 20:20
[2016-07-20] VITALS (8 sets, daily range): BP systolic 108–136; BP diastolic 58–85; PULSE 59–95; RESP 18–20; TEMP 95.4–98; O2SAT 93–100
[2016-07-20] MEDS: hydrALAZINE HCL 25 MG TAB TUBE SCH ×3 (05:39→23:35)
[2016-07-20] MEDS: LABETALOL HCL 300 MG TAB TUBE SCH ×3 (05:39→23:35)
[2016-07-20] MEDS: SODIUM CHLORIDE 0.9% FLUSH 5 ML FLUSH IVF SCH ×2 (09:00→23:35)
[2016-07-20] MEDS: ENOXAPARIN SODIUM 40 MG/0.4 ML SYRINGE SQ SCH (09:58)
[2016-07-20] MEDS: QUEtiapine FUMARATE 25 MG TAB TUBE SCH ×2 (09:58→23:35)
[2016-07-20] MEDS: RANITIDINE HCL SYRUP 150 MG/10 ML UDC TUBE SCH ×2 (09:58→23:35)
--- NOTE | 2016-07-20 10:55 | HHI.PR ---
Subjective Remarks Follow-up hypertension. BP readings stable. No trach secretions. Good cough. Discussed with RN Objective Vitals Vital Signs Date Time Temp Pulse Resp B/P Pulse Ox O2 Delivery O2 Flow Rate FiO2 07/20/16 08:00 96.9 73 18 108/73 100 07/20/16 04:00 98.0 95 18 130/66 96 07/20/16 02:01 98 T-Piece 7.00 28 07/20/16 00:00 97.6 77 20 131/58 93 07/19/16 22:40 98 T-piece 6.00 28 07/19/16 19:00 97.2 76 18 127/69 95 07/19/16 16:00 97.8 71 17 121/75 100 07/19/16 12:00 96.5 60 16 119/73 100 I/O 07/19/16 07/19/16 07/19/16 07/20/16 07/20/16 07/20/16 06:59 14:59 22:59 06:59 14:59 22:59 Intake Total 859 ml 507 ml Balance 859 ml 507 ml Tube Feeding 559 ml 387 ml Other 300 ml 120 ml # Voids 4 1 4 # Bowel Movements 1 2 Objective Remarks GENERAL: This is a well-nourished, well-developed patient, in no apparent distress. Tracheostomy. Swollen extruded tongue status post laceration repair , appears smaller. S/p lower teeth extraction by Dr Booth CARDIOVASCULAR: Regular rate and rhythm without gallops, or rubs. Murmur noted RESPIRATORY: Trach in place. Clear to auscultation. Breath sounds equal bilaterally. No wheezes, rales, or rhonchi. GASTROINTESTINAL: peg in place. Abdomen soft, non-tender, nondistended. Normal active bowel sounds MUSCULOSKELETAL: Extremities without clubbing, cyanosis, or edema. NEURO: Alert & nonverbal secondary to tracheostomy. Allowing commands. 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 She was found unresponsive at home and had a blood pressure of 265/135. Patient was admitted to the ICU with a large hemispheric intraparenchymal hemorrhage with subarachnoid blood. Patient had a left middle cerebral artery aneurysm and did undergo endovascular coiling with subsequent tracheostomy and PEG tube placement. Patient also had a large laceration of her tongue which was repaired by oral maxillary facial surgery 1. Acute subarachnoid hemorrhage with left middle cerebral artery aneurysm and status post endovascular coiling. Patient had evacuation of frontal temporal hematoma. Stable 2. Malignant hypertension. Echocardiogram does show severe left concentric hypertrophy. Patient is now on Norvasc, labetalol and hydralazine. Stable. Avoid KISHA inhibitor's given traumatic tongue edema 3. Respiratory failure requiring tracheostomy for airway protection. This is secondary to SA hemorrhage. RT unable to place the fenestrated tube due to it being stuck and bleeding during attempt. Respiratory status complicated due to severe tongue laceration and edema. NS to discuss with ENT regarding options ( may need removal of tongue) 4. FEN: Jevity 1.5 at 60 mL an hour 5. Encephalopathy secondary to intracranial hemorrhage, continue Seroquel. Otherwise soft restraints as needed for patient safety 6. Macroglossia. Tongue edema again secondary to lower teeth biting with remaining upper teeth. S/P extraction of teeth to help reduce tongue edema 07/[address] Booth. Improving. RN to follow up 7. Chronic mild Transaminitis. CT of the abdomen shows normal liver. Repeat LFTs stable negative hepatitis profile Lovenox for DVT prophylaxis okay with oral surgery Zantac for GI prophylaxis Discharge Planning DC to rehab when arranged Michael Howard MD Jul 20, 2016 10:55
--- NOTE | 2016-07-20 20:28 | HHI.NSPN ---
History Chief Complaint: nonverbal. SAH s/p aneurysm coiling. Interval History 04/12/16: Patient had an aneurysm coiled 04/11/2016, intubated and sedated, ICP stable overnight 04/29/2016: Tracheostomy and PEG placement 06/03/16: Remains awake, primarily left lateral gaze. Grasp with left hand, not definitely to command. Exam Results Vital Signs Date Time Temp Pulse Resp B/P Pulse Ox O2 Delivery O2 Flow Rate FiO2 07/20/16 16:00 95.4 59 20 136/59 97 07/20/16 11:18 T-piece 5.00 28 Intake and Output 07/19/16 07/19/16 07/19/16 07:59 15:59 23:59 Intake Total 859 ml Balance 859 ml Physical Examination ENT: Patient's tongue is still edematous. Status post surgery by OMFS 07/14/16 Respirations: CTA bilaterally Trach in place. Cardiac: Regular. No murmurs Abdomen: Soft without obvious tenderness. PEG tube in place Skin: Scalp incisions clean and dry. Muscle: Community Development Manager hands and moves toes bilaterally Neuro: Awake and alert. Follows commands. Motions with her hands. Tracks to the right and left with mild disconjugate gaze. Pupils 3mm bilaterally. Reactive bilaterally. Right PROFESSIONAL SERVICES SPECIALIST shunt tract without edema Medical Decision Making Impression and Plan Impression: 1. Stable neurologic function over the past week. 2. Persistent tongue edema. Dental extraction 07/14/16 3. Hypertension stable and present medications Plan: Continuing tube feedings for nutrition Wound care nurse following for lumbosacral skin breakdown. Continuing decubitus precautions Tracheostomy care Continuing therapy Case management following She will need discharge to rehabilitation if arrangements can be made. Sherwin Meléndez MD Jul 20, 2016 20:28
[2016-07-21] VITALS (8 sets, daily range): BP systolic 111–139; BP diastolic 62–83; PULSE 73–87; RESP 18–20; TEMP 96–97.8; O2SAT 94–100
[2016-07-21] MEDS: LABETALOL HCL 300 MG TAB TUBE SCH ×3 (06:03→22:14)
[2016-07-21] MEDS: hydrALAZINE HCL 25 MG TAB TUBE SCH ×3 (06:03→22:15)
[2016-07-21] MEDS: ENOXAPARIN SODIUM 40 MG/0.4 ML SYRINGE SQ SCH (08:53)
[2016-07-21] MEDS: QUEtiapine FUMARATE 25 MG TAB TUBE SCH ×2 (08:53→22:14)
[2016-07-21] MEDS: RANITIDINE HCL SYRUP 150 MG/10 ML UDC TUBE SCH ×2 (08:53→22:14)
[2016-07-21] MEDS: SODIUM CHLORIDE 0.9% FLUSH 5 ML FLUSH IVF SCH ×2 (08:54→22:15)
--- NOTE | 2016-07-21 13:55 | HHI.PR ---
Subjective Remarks Follow-up hypertension. Denies headache or dizziness. Discussed with RN Objective Vitals Vital Signs Date Time Temp Pulse Resp B/P Pulse Ox O2 Delivery O2 Flow Rate FiO2 07/21/16 12:26 97 T-piece 6.00 28 07/21/16 12:00 96.9 81 18 116/70 100 07/21/16 08:46 98 T-Piece 6.00 28 07/21/16 08:00 97.8 77 18 111/62 100 07/21/16 07:28 97.5 73 20 134/71 95 07/21/16 00:00 97.6 87 20 118/83 94 07/20/16 22:24 96 T-piece 6.00 28 07/20/16 22:00 98 T-Piece 5.00 07/20/16 20:00 97.0 89 20 125/76 95 07/20/16 16:00 95.4 59 20 136/59 97 I/O 07/20/16 07/20/16 07/20/16 07/21/16 07/21/16 07/21/16 07:00 15:00 23:00 07:00 15:00 23:00 Intake Total 507 ml 120 ml 311 ml Output Total 2 ml Balance 507 ml 120 ml 309 ml Tube Feeding 387 ml 311 ml Other 120 ml 120 ml Stool Total 2 ml # Voids 4 3 1 8 # Bowel Movements 2 1 Objective Remarks GENERAL: This is a well-nourished, well-developed patient, in no apparent distress. Tracheostomy. Swollen extruded tongue status post laceration repair , appears smaller. S/p lower teeth extraction by Dr Booth CARDIOVASCULAR: Regular rate and rhythm without gallops, or rubs. Murmur noted RESPIRATORY: Trach in place. Clear to auscultation. Breath sounds equal bilaterally. No wheezes, rales, or rhonchi. GASTROINTESTINAL: peg in place. Abdomen soft, non-tender, nondistended. Normal active bowel sounds MUSCULOSKELETAL: Extremities without clubbing, cyanosis, or edema. NEURO: Alert & nonverbal secondary to tracheostomy. Allowing commands. 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 She was found unresponsive at home and had a blood pressure of 265/135. Patient was admitted to the ICU with a large hemispheric intraparenchymal hemorrhage with subarachnoid blood. Patient had a left middle cerebral artery aneurysm and did undergo endovascular coiling with subsequent tracheostomy and PEG tube placement. Patient also had a large laceration of her tongue which was repaired by oral maxillary facial surgery 1. Acute subarachnoid hemorrhage with left middle cerebral artery aneurysm and status post endovascular coiling. Patient had evacuation of frontal temporal hematoma. Stable 2. Malignant hypertension. Echocardiogram does show severe left concentric hypertrophy. Patient is now on Norvasc, labetalol and hydralazine. Stable. Avoid KISHA inhibitor's given traumatic tongue edema 3. Respiratory failure requiring tracheostomy for airway protection. This is secondary to SA hemorrhage. RT unable to place the fenestrated tube due to it being stuck and bleeding during attempt. Respiratory status complicated due to severe tongue laceration and edema. NS to discuss with ENT regarding options ( may need removal of tongue) 4. FEN: Jevity 1.5 at 60 mL an hour 5. Encephalopathy secondary to intracranial hemorrhage, continue Seroquel. Otherwise soft restraints as needed for patient safety 6. Macroglossia. Tongue edema again secondary to lower teeth biting with remaining upper teeth. S/P extraction of teeth to help reduce tongue edema 07/[address] Booth. Improving. RN to follow up 7. Chronic mild Transaminitis. CT of the abdomen shows normal liver. Repeat LFTs stable negative hepatitis profile Lovenox for DVT prophylaxis okay with oral surgery Zantac for GI prophylaxis Discharge Planning DC to rehab when arranged Michael Howard MD Jul 21, 2016 13:55
--- NOTE | 2016-07-21 18:42 | HHI.NSPN ---
History Chief Complaint: nonverbal. SAH s/p aneurysm coiling. Interval History 04/12/16: Patient had an aneurysm coiled 04/11/2016, intubated and sedated, ICP stable overnight 04/29/2016: Tracheostomy and PEG placement 06/03/16: Remains awake, primarily left lateral gaze. Grasp with left hand, not definitely to command. Exam Results Vital Signs Date Time Temp Pulse Resp B/P Pulse Ox O2 Delivery O2 Flow Rate FiO2 07/21/16 17:58 97 T-piece 6.00 28 07/21/16 16:00 96.5 76 18 122/72 Intake and Output 07/20/16 07/20/16 07/21/16 08:00 16:00 00:00 Intake Total 507 ml Balance 507 ml Physical Examination ENT: Patient's tongue is still edematous. Status post surgery by OMFS 07/14/16 Respirations: CTA bilaterally Trach in place. Cardiac: Regular. No murmurs Abdomen: Soft without obvious tenderness. PEG tube in place Skin: Scalp incisions clean and dry. Muscle: Rac Specialist hands and moves toes bilaterally Neuro: Awake and alert. Follows commands. Motions with her hands. Tracks to the right greater than left with mild disconjugate gaze. Pupils 3mm bilaterally. Reactive bilaterally. Right PLASTER DIE MAKER shunt tract without edema Medical Decision Making Impression and Plan Impression: 1. Stable neurologic function 2. Persistent tongue edema. Dental extraction 07/14/16 3. Hypertension stable and present medications Plan: Continuing tube feedings for nutrition Wound care nurse following for lumbosacral skin breakdown. Continuing decubitus precautions Tracheostomy care Continuing therapy Case management following She will need discharge to rehabilitation if arrangements can be made. Sherwin Meléndez MD Jul 21, 2016 18:42
[2016-07-21] MEDS: ACETAMINOPHEN/HYDROcodone 325 MG/5 MG TAB TUBE PRN (22:18)
[2016-07-22] VITALS (9 sets, daily range): BP systolic 108–148; BP diastolic 65–81; PULSE 59–92; RESP 16–20; TEMP 95.6–97.1; O2SAT 95–100
[2016-07-22] MEDS: hydrALAZINE HCL 25 MG TAB TUBE SCH ×3 (06:33→22:11)
[2016-07-22] MEDS: ACETAMINOPHEN/HYDROcodone 325 MG/5 MG TAB TUBE PRN ×2 (06:35→22:10)
[2016-07-22] MEDS: LABETALOL HCL 300 MG TAB TUBE SCH ×3 (06:35→22:10)
[2016-07-22] MEDS: SODIUM CHLORIDE 0.9% FLUSH 5 ML FLUSH IVF SCH ×2 (09:00→22:11)
[2016-07-22] MEDS: RANITIDINE HCL SYRUP 150 MG/10 ML UDC TUBE SCH ×2 (09:29→22:10)
[2016-07-22] MEDS: ENOXAPARIN SODIUM 40 MG/0.4 ML SYRINGE SQ SCH (09:29)
[2016-07-22] MEDS: QUEtiapine FUMARATE 25 MG TAB TUBE SCH ×2 (09:29→22:10)
--- NOTE | 2016-07-22 13:14 | HHI.PR ---
Subjective Remarks Follow-up hypertension. BP stable. Discussed with RN Objective Vitals Vital Signs Date Time Temp Pulse Resp B/P Pulse Ox O2 Delivery O2 Flow Rate FiO2 07/22/16 12:13 100 T-piece 6.00 28 07/22/16 12:00 95.6 92 16 113/70 100 07/22/16 10:59 T-Piece 6.00 28 07/22/16 08:00 95.7 61 16 110/65 100 07/22/16 07:16 97.1 59 18 115/78 100 07/22/16 01:36 99 T-piece 28 07/22/16 01:33 98 T-Piece 6.00 28 07/22/16 00:00 95.9 64 18 111/68 100 07/21/16 23:18 19 07/21/16 20:00 96.0 74 20 139/82 100 07/21/16 17:58 97 T-piece 6.00 28 07/21/16 16:00 96.5 76 18 122/72 100 I/O 07/21/16 07/21/16 07/21/16 07/22/16 07/22/16 07/22/16 06:59 14:59 22:59 06:59 14:59 22:59 Intake Total 120 ml 311 ml Output Total 2 ml 0 ml Balance 120 ml 309 ml 0 ml Tube Feeding 311 ml Other 120 ml Stool Total 2 ml Tube Feeding Residual Discard 0 ml # Voids 1 13 2 2 # Bowel Movements 1 0 0 Imaging Last Impressions Head CT 05/23/16 0600 Signed Impressions: Service Date/Time: Monday, May 23, 2016 04:48 - CONCLUSION: 1. The left craniotomy defect has been repaired. 2. Small blood and air in the left subdural space, up to 6 mm in maximal thickness. Subdural drain in place. 3. Evolving encephalomalacia of the left frontal and temporal lobes. 4. 2 mm of rightward midline shift. 5. Shunted. No ventriculomegaly. Fei Hughes MD Chest X-Ray 05/17/16 0600 Signed Impressions: Service Date/Time: Tuesday, May 17, 2016 04:59 - CONCLUSION: 1. Minimal basilar atelectasis. Cardiomegaly. Quinn Bateman MD Skull X-Ray 9/8/16 0000 Signed Impressions: Service Date/Time: May 10:16 - CONCLUSION: Shunt set to 70-80 mm H2O. Fei Snyder MD Head CTA 05/02/16 0600 Signed Impressions: Service Date/Time: Monday, May 02, 2016 04:32 - CONCLUSION: Satisfactory appearance post aneurysm coiling Fei Snyder MD Abdomen/Pelvis CT 04/24/16 1416 Signed Impressions: Service Date/Time: March 14:39 - CONCLUSION: Mild small bowel ileus with scattered air-fluid levels. Bibasilar lung consolidation with associated small effusions. Significant soft tissue fluid accumulation with edematous changes throughout the abdominal wall. Nasogastric tube in good position. Saqib Garcia MD Neck CTA 04/11/16 1151 Signed Impressions: Service Date/Time: Monday, April 11, 2016 12:01 - CONCLUSION: Negative for hemodynamically significant carotid stenosis. Ricardo Castellanos MD FACR Cerebral Arteriogram 04/11/16 0000 Signed Impressions: Service Date/Time: Monday, April 11, 2016 14:18 - CONCLUSION: 1. 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 This is the aneurysm felt responsible for the intracranial hemorrhage. 2. Small 4 mm left M1 segment aneurysm. Attempts at embolizing this aneurysm were unsuccessful due to the broad based nature of the aneurysm. Endovascular repair of this aneurysm could not be performed. Kennedy Thibodeaux Jr., MD Objective Remarks GENERAL: This is a well-nourished, well-developed patient, in no apparent distress. Tracheostomy. Swollen extruded tongue status post laceration repair, appears smaller. S/p lower teeth extraction by Dr Booth CARDIOVASCULAR: Regular rate and rhythm without gallops, or rubs. Murmur noted RESPIRATORY: Trach in place. Clear to auscultation. Breath sounds equal bilaterally. No wheezes, rales, or rhonchi. GASTROINTESTINAL: peg in place. Abdomen soft, non-tender, nondistended. Normal active bowel sounds MUSCULOSKELETAL: Extremities without clubbing, cyanosis, or edema. NEURO: Alert & nonverbal secondary to tracheostomy. Allowing commands. 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 She was found unresponsive at home and had a blood pressure of 265/135. Patient was admitted to the ICU with a large hemispheric intraparenchymal hemorrhage with subarachnoid blood. Patient had a left middle cerebral artery aneurysm and did undergo endovascular coiling with subsequent tracheostomy and PEG tube placement. Patient also had a large laceration of her tongue which was repaired by oral maxillary facial surgery 1. Acute subarachnoid hemorrhage with left middle cerebral artery aneurysm and status post endovascular coiling. Patient had evacuation of frontal temporal hematoma. Stable 2. Malignant hypertension. Echocardiogram does show severe left concentric hypertrophy. Patient is now on Norvasc, labetalol and hydralazine. Stable. Avoid KISHA inhibitor's given traumatic tongue edema 3. Respiratory failure requiring tracheostomy for airway protection. This is secondary to SA hemorrhage. RT unable to place the fenestrated tube due to it being stuck and bleeding during attempt. Respiratory status complicated due to severe tongue laceration and edema. NS to discuss with ENT regarding options ( may need removal of tongue) 4. FEN: Jevity 1.5 at 60 mL an hour 5. Encephalopathy secondary to intracranial hemorrhage, continue Seroquel. Otherwise soft restraints as needed for patient safety 6. Macroglossia. Tongue edema again secondary to lower teeth biting with remaining upper teeth. S/P extraction of teeth to help reduce tongue edema 07/[address] Booth. Nichelle. RN to follow up 7. Chronic mild Transaminitis. CT of the abdomen shows normal liver. Repeat LFTs stable negative hepatitis profile Lovenox for DVT prophylaxis okay with oral surgery Zantac for GI prophylaxis Discharge Planning DC to rehab when arranged, no accepting facility Michael Howard MD Jul 22, 2016 13:13
--- NOTE | 2016-07-22 16:46 | HHI.NSPN ---
History Chief Complaint: nonverbal. SAH s/p aneurysm coiling. Interval History 04/12/16: Patient had an aneurysm coiled 04/11/2016, intubated and sedated, ICP stable overnight 04/29/2016: Tracheostomy and PEG placement 06/03/16: Remains awake, primarily left lateral gaze. Grasp with left hand, not definitely to command. Exam Results Vital Signs Date Time Temp Pulse Resp B/P Pulse Ox O2 Delivery O2 Flow Rate FiO2 07/22/16 16:00 95.6 69 20 108/72 100 07/22/16 12:13 T-piece 6.00 28 Intake and Output 07/21/16 07/21/16 07/22/16 08:00 16:00 00:00 Intake Total 120 ml 311 ml Output Total 2 ml 0 ml Balance 118 ml 311 ml 0 ml Physical Examination ENT: Patient's tongue is still edematous, protruding on left side. Status post surgery by OMFS 07/14/16 Respirations: CTA bilaterally Trach in place. Cardiac: Regular. Abdomen: Soft without obvious tenderness. PEG tube in place Skin: Scalp incisions clean and dry. Muscle: Roll Edge Machine Operator hands and moves toes bilaterally Neuro: Awake and alert. Follows commands. Motions with her hands. Tracks to the right greater than left with mild disconjugate gaze. Pupils 3mm bilaterally. Reactive bilaterally. Right PRIMARY THERAPIST shunt tract without edema Medical Decision Making Impression and Plan Impression: 1. Stable neurologic function 2. Persistent tongue edema. Dental extraction 07/14/16 3. Hypertension stable and present medications Plan: Continuing tube feedings for nutrition Wound care nurse following for lumbosacral skin breakdown. Continuing decubitus precautions Tracheostomy care Continuing therapy Case management following She will need discharge to rehabilitation if arrangements can be made. Sherwin Meléndez MD Jul 22, 2016 16:46
[2016-07-23] VITALS (8 sets, daily range): BP systolic 114–137; BP diastolic 65–88; PULSE 69–90; RESP 18–20; TEMP 95.5–97.1; O2SAT 98–100
[2016-07-23] MEDS: ACETAMINOPHEN/HYDROcodone 325 MG/5 MG TAB TUBE PRN (07:02)
[2016-07-23] MEDS: hydrALAZINE HCL 25 MG TAB TUBE SCH ×3 (07:03→21:37)
[2016-07-23] MEDS: LABETALOL HCL 300 MG TAB TUBE SCH ×3 (07:03→21:37)
[2016-07-23] MEDS: RANITIDINE HCL SYRUP 150 MG/10 ML UDC TUBE SCH ×2 (09:48→21:37)
[2016-07-23] MEDS: QUEtiapine FUMARATE 25 MG TAB TUBE SCH ×2 (09:48→21:37)
[2016-07-23] MEDS: ENOXAPARIN SODIUM 40 MG/0.4 ML SYRINGE SQ SCH (09:48)
--- NOTE | 2016-07-23 12:34 | HHI.PR ---
Subjective Remarks s/p extraction of periodontally, decayed, broken teeth 21-27, 29 and 12/13 stabilization of tongue to help reduce tongue edema secondary to traumatic biting pt seen examined, trached following commands, nurse at bedside keeps turning head to the left, tongue protruding to the left again out of the mouth again, smaller in size Objective Vital Signs Date Time Temp Pulse Resp B/P Pulse Ox O2 Delivery O2 Flow Rate FiO2 07/23/16 09:19 98 T-piece 28 07/23/16 08:00 95.9 70 20 114/65 100 07/23/16 06:15 98 Trach Collar 6.00 28 T-Piece Humidified 07/23/16 04:39 95.9 69 20 137/86 100 07/23/16 00:53 96.7 71 19 124/82 100 07/22/16 23:20 18 07/22/16 20:00 98 Trach Collar 6.00 28 T-Piece Humidified 07/22/16 20:00 96.6 68 19 139/81 99 07/22/16 18:06 100 T-piece 6.00 28 07/22/16 16:00 95.6 69 20 108/72 100 I/O 07/22/16 07/22/16 07/22/16 07/23/16 07/23/16 07/23/16 07:00 15:00 23:00 07:00 15:00 23:00 Intake Total 1185 ml Output Total 0 ml 0 ml 0 ml Balance 0 ml 0 ml 0 ml 1185 ml Tube Feeding 1185 ml Tube Feeding Residual Discard 0 ml 0 ml 0 ml # Voids 4 1 2 # Bowel Movements 1 1 Objective Remarks tongue edema stable, decreasing,stable but still enlarged wound margins well approximated, no signs of infection bleeding or pus no tongue laceration. tongue pink and well perfused, extraction sites stable, hemostatic pt able to place tongue back into mouth, follows commands sometimes due to constant positioning of tongue/neck to the left, tongue shape changed keeps spitting the bite block out Assessment and Plan Assessment and Plan s/p extraction of teeth maxillary teeth 12/13, and mandibular teeth 21-17, 29 -decayed/periodontally involved causing traumatic biting to tongue, causing enlargement and stabilization of tongue tongue attached/pink and healthy/healing well tongue edema decreasing, softer, but once again pt keeps the tongue protruded to the left, does not turn neck to the right, extraction sites stable, hemostatic continue supportive care in restraints, may have to consider partial glossectomy, vs re-suspension of the tongue Steve Booth DMD Jul 23, 2016 12:34
--- NOTE | 2016-07-23 15:44 | HHI.PR ---
Subjective Remarks Follow hypertension, tongue swelling Tongue still protruding, blood pressure stable, follows some commands, restrained. Objective Vitals Vital Signs Date Time Temp Pulse Resp B/P Pulse Ox O2 Delivery O2 Flow Rate FiO2 07/23/16 12:00 96.8 72 20 124/84 100 07/23/16 09:19 98 T-piece 28 07/23/16 08:30 22 07/23/16 08:00 95.9 70 20 114/65 100 07/23/16 06:15 98 Trach Collar 6.00 28 T-Piece Humidified 07/23/16 04:39 95.9 69 20 137/86 100 07/23/16 00:53 96.7 71 19 124/82 100 07/22/16 20:00 98 Trach Collar 6.00 28 T-Piece Humidified 07/22/16 20:00 96.6 68 19 139/81 99 07/22/16 18:06 100 T-piece 6.00 28 07/22/16 16:00 95.6 69 20 108/72 100 I/O 07/22/16 07/22/16 07/22/16 07/23/16 07/23/16 07/23/16 07:00 15:00 23:00 07:00 15:00 23:00 Intake Total 1185 ml 429 ml Output Total 0 ml 0 ml 0 ml Balance 0 ml 0 ml 0 ml 1185 ml 429 ml Tube Feeding 1185 ml 309 ml Tube Irrigant 120 ml Tube Feeding Residual Discard 0 ml 0 ml 0 ml # Voids 4 1 2 # Bowel Movements 1 1 Objective Remarks GENERAL: This is a well-nourished, well-developed patient, in no apparent distress. Tracheostomy. Swollen extruded tongue status post laceration repair, appears smaller. S/p lower teeth extraction by Dr Booth CARDIOVASCULAR: Regular rate and rhythm without gallops, or rubs. Murmur noted RESPIRATORY: Trach in place. Clear to auscultation. Breath sounds equal bilaterally. No wheezes, rales, or rhonchi. GASTROINTESTINAL: peg in place. Abdomen soft, non-tender, nondistended. Normal active bowel sounds MUSCULOSKELETAL: Extremities without clubbing, cyanosis, or edema. NEURO: Alert & nonverbal secondary to tracheostomy. Close his eyes on commands. 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 ICD Code: I60.12 Status: Acute (2) Cerebral aneurysm rupture ICD Code: I60.9 Status: Acute (3) Hypertension ICD Code: I10 Status: Chronic (4) Encephalopathy ICD Code: G93.40 Status: Chronic (5) Malnutrition ICD Code: E46 Status: Acute (6) Sequelae of nontraumatic intracerebral hemorrhage ICD Code: I69.10 Status: Chronic (7) 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 s/p Dr. Meléndez performed left decompressive craniotomy 04/25 with evacuation of temporal hematoma. BONE DENSITY TECHNICIAN shunt placed 05/07. S/p bone flap on 05/22. -Malignant Hypertension (Hypertensive emergency) on admission -- s/p 3 weeks of Nimotop therapy for vasospasm prevention. in SAH patient. now targeting SBP < 160. Continue Norvasc 10 q day, HCTZ 25 mg daily , labetalol 300 mg PO TID, hydralazine 75 mg q8. Hold parameters. Blood pressure stable. No change in management. 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 Not a candidate for surgical intervention due to devastating neuro injury -Acute respiratory failure (now chronic resp failure) secondary to SAH / ICH. s/ p tracheostomy 04/29. Cristino TP 23/03. Continue DuoNeb q 4 hours as needed -Severe tongue lacerations/p tongue laceration repair by Dr. Booth 05/16/16. Dr. Booth reevaluated, might need glossectomy if continues to persist, was started low dose Xanax for decreasing anxiety possibly causing bruxism/tongue biting. -Mild protein calorie malnutrition - s/p PEG 04/28. Tolerating tube feeds (Jevity ) at goal of 50 cc/hr (-25-30 kcal/kg/day) -Mild transaminitis. probable fatty liver. LFTs stable. -Anemia of chronic inflammation / disease. Hgb stable with no signs of active bleeding -Sepsis secondary to pneumonia and prior UTI - resolved, now off all abx. -Hyperkalemia-continue hydrochlorothiazide, resolved with Lasix. -Prophylaxis: GI - oral Zantac q 12 DVT - SCDs; Lovenox 40 q day -Rehab: PT / OT Will eventually need LTACH / SNF Rob Khalil MD Jul 23, 2016 15:44
[2016-07-23] MEDS: SODIUM CHLORIDE 0.9% FLUSH 5 ML FLUSH IVF SCH (21:37)
[2016-07-24] VITALS (7 sets, daily range): BP systolic 116–150; BP diastolic 70–89; PULSE 71–78; RESP 18–20; TEMP 95.7–97.2; O2SAT 96–100
[2016-07-24] MEDS: LABETALOL HCL 300 MG TAB TUBE SCH ×3 (05:42→22:35)
[2016-07-24] MEDS: hydrALAZINE HCL 25 MG TAB TUBE SCH ×3 (05:42→22:35)
[2016-07-24] MEDS: ENOXAPARIN SODIUM 40 MG/0.4 ML SYRINGE SQ SCH (09:34)
[2016-07-24] MEDS: SODIUM CHLORIDE 0.9% FLUSH 5 ML FLUSH IVF SCH ×2 (09:34→22:36)
[2016-07-24] MEDS: QUEtiapine FUMARATE 25 MG TAB TUBE SCH ×2 (09:35→22:35)
[2016-07-24] MEDS: RANITIDINE HCL SYRUP 150 MG/10 ML UDC TUBE SCH ×2 (09:35→22:35)
[2016-07-24] MEDS: ACETAMINOPHEN/HYDROcodone 325 MG/5 MG TAB TUBE PRN (14:31)
[2016-07-24] MEDS: ALPRAZolam 0.25 MG TAB PO PRN (14:31)
--- NOTE | 2016-07-24 18:42 | HHI.PR ---
Subjective Remarks Discussed with RN. No acute concerns. No neurologic change. Objective Vitals Vital Signs Date Time Temp Pulse Resp B/P Pulse Ox O2 Delivery O2 Flow Rate FiO2 07/24/16 15:37 96.5 72 20 116/72 100 07/24/16 15:00 100 Trach Collar 6.00 28 T-Piece Humidified 07/24/16 13:13 97.0 78 20 122/70 100 07/24/16 08:28 99 T-piece 28 07/24/16 08:27 96.2 71 20 150/89 99 07/24/16 04:00 98 Trach Collar 6.00 28 T-Piece Humidified 07/24/16 00:05 97.2 72 18 145/86 98 07/24/16 00:00 98 Trach Collar 6.00 28 T-Piece Humidified 07/23/16 21:00 100 Trach Collar 6.00 28 T-Piece Humidified 07/23/16 20:17 95.5 90 18 136/88 100 07/23/16 19:49 100 T-piece 28 I/O 07/23/16 07/23/16 07/23/16 07/24/16 07/24/16 07/24/16 07:00 15:00 23:00 07:00 15:00 23:00 Intake Total 1185 ml 429 ml Output Total 0 ml Balance 0 ml 1185 ml 429 ml Tube Feeding 1185 ml 309 ml Tube Irrigant 120 ml Tube Feeding Residual Discard 0 ml # Voids 6 1 1 3 3 # Bowel Movements 1 1 Objective Remarks GENERAL: Well-nourished, well-developed middle-aged female patient. SKIN: Warm and dry. Oropharyngeal: The patient has tongue swelling in the tongue is protruding from the left side of her mouth, she is absent dentition on that side. EYES: No scleral icterus. No injection or drainage. NECK: Supple, trachea midline. No JVD or lymphadenopathy. CARDIOVASCULAR: Regular rate and rhythm. No peripheral edema. RESPIRATORY: Breath sounds equal but coarse bilaterally. No accessory muscle use. GASTROINTESTINAL: Abdomen soft, non-tender, nondistended. PEG site intact. EXTREMITIES: No cyanosis, or edema. NEUROLOGICAL: Awake, alert. She does follow commands including hand servomechanism designer and wiggling feet and opens mouth on command. 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 s/p Dr. Meléndez performed left decompressive craniotomy 04/25 with evacuation of temporal hematoma. DYNAMITE RECLAIMER shunt placed 05/07. S/p bone flap on 05/22. -Malignant Hypertension (Hypertensive emergency) on admission -- s/p 3 weeks of Nimotop therapy for vasospasm prevention. in SAH patient. now targeting SBP < 160. Continue Norvasc 10 q day, HCTZ 25 mg daily , labetalol 300 mg PO TID, hydralazine 75 mg q8. Hold parameters. Blood pressure stable. No change in management. 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 Not a candidate for surgical intervention due to devastating neuro injury -Acute respiratory failure (now chronic resp failure) secondary to SAH / ICH. s/ p tracheostomy 04/29. Cristino TP 23/03. Continue DuoNeb q 4 hours as needed -Severe tongue lacerations/p tongue laceration repair by Dr. Booth 05/16/16. Dr. Booth reevaluated, might need glossectomy if continues to persist, was started low dose Xanax for decreasing anxiety possibly causing bruxism/tongue biting. -Mild protein calorie malnutrition - s/p PEG 04/28. Tolerating tube feeds (Jevity ) at goal of 50 cc/hr (-25-30 kcal/kg/day) -Mild transaminitis. probable fatty liver. LFTs stable. -Anemia of chronic inflammation / disease. Hgb stable with no signs of active bleeding -Sepsis secondary to pneumonia and prior UTI - resolved, now off all abx. -Hyperkalemia-continue hydrochlorothiazide, resolved with Lasix. -Prophylaxis: GI - oral Zantac q 12 DVT - SCDs; Lovenox 40 q day -Rehab: PT / OT Will eventually need LTACH / SNF Ann Marie Hart MD Jul 24, 2016 18:42
[2016-07-25] VITALS (7 sets, daily range): BP systolic 96–151; BP diastolic 60–81; PULSE 65–86; RESP 16–18; TEMP 96.8–98.1; O2SAT 99–100
[2016-07-25] MEDS: hydrALAZINE HCL 25 MG TAB TUBE SCH ×3 (06:15→21:06)
[2016-07-25] MEDS: LABETALOL HCL 300 MG TAB TUBE SCH ×3 (06:15→21:06)
[2016-07-25] MEDS: SODIUM CHLORIDE 0.9% FLUSH 5 ML FLUSH IVF SCH ×2 (09:00→21:06)
[2016-07-25] MEDS: ENOXAPARIN SODIUM 40 MG/0.4 ML SYRINGE SQ SCH (09:59)
[2016-07-25] MEDS: RANITIDINE HCL SYRUP 150 MG/10 ML UDC TUBE SCH ×2 (10:00→21:06)
[2016-07-25] MEDS: QUEtiapine FUMARATE 25 MG TAB TUBE SCH ×2 (10:00→21:06)
[2016-07-25] MEDS: ACETAMINOPHEN/HYDROcodone 325 MG/5 MG TAB TUBE PRN (15:11)
--- NOTE | 2016-07-25 18:04 | HHI.PR ---
Subjective Remarks No acute issues. Objective Vitals Vital Signs Date Time Temp Pulse Resp B/P Pulse Ox O2 Delivery O2 Flow Rate FiO2 07/25/16 12:00 97.1 72 16 119/71 100 07/25/16 10:25 99 T-piece 28 07/25/16 08:50 T-Piece 6.00 28 Humidified 07/25/16 08:00 96.8 69 16 96/60 100 07/25/16 05:27 96.8 86 18 122/80 100 07/25/16 00:07 96.9 72 18 126/73 100 07/24/16 20:30 96 T-piece 6.00 28 07/24/16 20:16 95.7 75 18 131/83 100 I/O 07/24/16 07/24/16 07/24/16 07/25/16 07/25/16 07/25/16 07:00 15:00 23:00 07:00 15:00 23:00 # Voids 1 3 3 2 1 1 # Bowel Movements 1 1 1 1 Objective Remarks GENERAL: Well-nourished, well-developed middle-aged female patient. SKIN: Warm and dry. Oropharyngeal: The patient has tongue swelling in the tongue is protruding from the left side of her mouth, she is absent dentition on that side. EYES: No scleral icterus. No injection or drainage. NECK: Supple, trachea midline. No JVD or lymphadenopathy. CARDIOVASCULAR: Regular rate and rhythm. No peripheral edema. RESPIRATORY: Breath sounds equal but coarse bilaterally. No accessory muscle use. GASTROINTESTINAL: Abdomen soft, non-tender, nondistended. PEG site intact. EXTREMITIES: No cyanosis, or edema. NEUROLOGICAL: Awake, alert. She does follow commands including hand scale clerk and wiggling feet and opens mouth on command. 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 s/p Dr. Meléndez performed left decompressive craniotomy 04/25 with evacuation of temporal hematoma. FOOD SAFETY TECHNICIAN shunt placed 05/07. S/p bone flap on 05/22. -Malignant Hypertension (Hypertensive emergency) on admission -- s/p 3 weeks of Nimotop therapy for vasospasm prevention. in SAH patient. now targeting SBP < 160. Continue Norvasc 10 q day, HCTZ 25 mg daily , labetalol 300 mg PO TID, hydralazine 75 mg q8. Hold parameters. Blood pressure stable. No change in management. 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 Not a candidate for surgical intervention due to devastating neuro injury -Acute respiratory failure (now chronic resp failure) secondary to SAH / ICH. s/ p tracheostomy 04/29. Cristino TP 23/03. Continue DuoNeb q 4 hours as needed -Severe tongue lacerations/p tongue laceration repair by Dr. Booth 05/16/16. Dr. Booth reevaluated, might need glossectomy if continues to persist, was started low dose Xanax for decreasing anxiety possibly causing bruxism/tongue biting. -Mild protein calorie malnutrition - s/p PEG 04/28. Tolerating tube feeds (Jevity ) at goal of 50 cc/hr (-25-30 kcal/kg/day) -Mild transaminitis. probable fatty liver. LFTs stable. -Anemia of chronic inflammation / disease. Hgb stable with no signs of active bleeding -Sepsis secondary to pneumonia and prior UTI - resolved, now off all abx. -Hyperkalemia-continue hydrochlorothiazide, resolved with Lasix. -Prophylaxis: GI - oral Zantac q 12 DVT - SCDs; Lovenox 40 q day -Rehab: PT / OT Will eventually need LTACH / SNF Ann Marie Hart MD Jul 25, 2016 18:04
[2016-07-25] MEDS: ALPRAZolam 0.25 MG TAB PO PRN (18:21)
[2016-07-26] VITALS (8 sets, daily range): BP systolic 111–153; BP diastolic 65–85; PULSE 59–74; RESP 16–20; TEMP 96.5–97.8; O2SAT 100
[2016-07-26] MEDS: ACETAMINOPHEN/HYDROcodone 325 MG/5 MG TAB TUBE PRN ×2 (02:28→02:29)
[2016-07-26] MEDS: LABETALOL HCL 300 MG TAB TUBE SCH ×3 (06:00→21:23)
[2016-07-26] MEDS: hydrALAZINE HCL 25 MG TAB TUBE SCH ×3 (06:00→21:23)
[2016-07-26] MEDS: QUEtiapine FUMARATE 25 MG TAB TUBE SCH ×2 (09:10→21:22)
[2016-07-26] MEDS: RANITIDINE HCL SYRUP 150 MG/10 ML UDC TUBE SCH ×2 (09:10→21:22)
[2016-07-26] MEDS: ENOXAPARIN SODIUM 40 MG/0.4 ML SYRINGE SQ SCH (09:10)
[2016-07-26] MEDS: SODIUM CHLORIDE 0.9% FLUSH 5 ML FLUSH IVF SCH ×2 (09:10→21:23)
[2016-07-26] MEDS ORDERED: LIDOCAINE 2%/EPINEPHrine 1:100,000 30ML MDV ONE (12:30)
--- NOTE | 2016-07-26 13:30 | HHI.PR ---
Subjective Remarks s/p extraction of periodontally, decayed, broken teeth 21-27, 29 and 12/13 stabilization of tongue to help reduce tongue edema secondary to traumatic biting pt seen examined, trached following commands intermittently nurse at bedside keeps turning head to the left, tongue protruding to the left again out of the mouth again, smaller in size, pink and well perfused Objective Vital Signs Date Time Temp Pulse Resp B/P Pulse Ox O2 Delivery O2 Flow Rate FiO2 07/26/16 12:00 97.4 65 20 115/84 100 07/26/16 08:05 100 T-piece 28 07/26/16 08:00 96.8 59 20 153/82 100 07/26/16 07:00 T-Piece 6.00 28 07/26/16 05:33 100 T-piece 28 07/26/16 04:31 96.5 63 20 112/79 100 07/26/16 00:50 97.5 72 20 127/84 100 07/25/16 21:03 96.9 65 18 151/81 100 07/25/16 19:00 T-Piece 6.00 28 07/25/16 16:00 98.1 69 16 113/72 100 I/O 07/25/16 07/25/16 07/25/16 07/26/16 07/26/16 07/26/16 06:59 14:59 22:59 06:59 14:59 22:59 Intake Total 0 ml Balance 0 ml Intake Oral 0 ml # Voids 2 2 1 2 # Bowel Movements 1 2 0 Objective Remarks tongue edema stable, decreasing,stable but still somewhat enlarged, soft wound margins well approximated, no signs of infection bleeding or pus no tongue laceration. tongue pink and well perfused, extraction sites stable, hemostatic pt able to place tongue back into mouth, follows commands sometimes due to constant positioning of tongue/neck to the left, tongue shape changed keeps spitting the bite block out pt keeping head centered better today, tongue appears better centered today Assessment and Plan Assessment and Plan s/p extraction of teeth maxillary teeth 12/13, and mandibular teeth 21-17, 29 -decayed/periodontally involved causing traumatic biting to tongue, causing enlargement and stabilization of tongue tongue attached/pink and healthy/healing well tongue edema decreasing, softer, but once again pt keeps the tongue protruded to the left - possibly due to her neurological status,but better centered today extraction sites stable, hemostatic continue supportive care in restraints, plan of re-suspension of the tongue today with sutures to maxillary gingiva/ soft tissue nurse Reynaldo at bedside 2 %lidocaine with 1:100,000 epi approx 2 cc at lateral tongue borders and maxillary regions anterior regions intraorally 3.0 Vicryl sutures through b/l lateral borders to b/l max ant regions, suspended tongue/positioned back into mouth again pt tolerated procedure well, advised her not to force/stick tongue out of mouth Steve Booth DMD Jul 26, 2016 13:30
--- NOTE | 2016-07-26 14:48 | HHI.PR ---
Subjective Remarks Pt underwent resuspension of tongue today with sutures by Dr. Major - at bedside. Objective Vitals Vital Signs Date Time Temp Pulse Resp B/P Pulse Ox O2 Delivery O2 Flow Rate FiO2 07/26/16 12:00 97.4 65 20 115/84 100 07/26/16 08:05 100 T-piece 28 07/26/16 08:00 96.8 59 20 153/82 100 07/26/16 07:00 T-Piece 6.00 28 07/26/16 05:33 100 T-piece 28 07/26/16 04:31 96.5 63 20 112/79 100 07/26/16 00:50 97.5 72 20 127/84 100 07/25/16 21:03 96.9 65 18 151/81 100 07/25/16 19:00 T-Piece 6.00 28 07/25/16 16:00 98.1 69 16 113/72 100 I/O 07/25/16 07/25/16 07/25/16 07/26/16 07/26/16 07/26/16 07:00 15:00 23:00 07:00 15:00 23:00 Intake Total 0 ml Balance 0 ml Intake Oral 0 ml # Voids 2 2 1 2 # Bowel Movements 1 2 0 Objective Remarks GENERAL: Well-nourished, well-developed middle-aged female patient. SKIN: Warm and dry. Oropharyngeal: The patient has tongue swelling in the tongue is protruding from the left side of her mouth, she is absent dentition on that side. EYES: No scleral icterus. No injection or drainage. NECK: Supple, trachea midline. No JVD or lymphadenopathy. CARDIOVASCULAR: Regular rate and rhythm. No peripheral edema. RESPIRATORY: Breath sounds equal but coarse bilaterally. No accessory muscle use. GASTROINTESTINAL: Abdomen soft, non-tender, nondistended. PEG site intact. EXTREMITIES: No cyanosis, or edema. NEUROLOGICAL: Awake, alert. She does follow commands including hand rotary driller prospecting and wiggling feet and opens mouth on command. 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 s/p Dr. Meléndez performed left decompressive craniotomy 04/25 with evacuation of temporal hematoma. ASH PIT WORKER shunt placed 05/07. S/p bone flap on 05/22. -Malignant Hypertension (Hypertensive emergency) on admission -- s/p 3 weeks of Nimotop therapy for vasospasm prevention. in SAH patient. now targeting SBP < 160. Continue Norvasc 10 q day, HCTZ 25 mg daily , labetalol 300 mg PO TID, hydralazine 75 mg q8. Hold parameters. Blood pressure stable. No change in management. 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 Not a candidate for surgical intervention due to recent devastating neuro injury -Acute respiratory failure (now chronic resp failure) secondary to SAH / ICH. s/ p tracheostomy 04/29. Cristino TP 23/03. Continue DuoNeb q 4 hours as needed -Severe tongue lacerations/p tongue laceration repair by Dr. Booth 05/16/16. Dr. Booth reevaluated, might need glossectomy if continues to persist, was started low dose Xanax for decreasing anxiety possibly causing bruxism/tongue biting. S/p resuspension of tongue today with sutures by Dr. Major - at bedside. -Mild protein calorie malnutrition - s/p PEG 04/28. Tolerating tube feeds (Jevity ) at goal of 50 cc/hr (-25-30 kcal/kg/day) -Mild transaminitis. probable fatty liver. LFTs stable. -Anemia of chronic inflammation / disease. Hgb stable with no signs of active bleeding -Sepsis secondary to pneumonia and prior UTI - resolved, now off all abx. -Hyperkalemia-continue hydrochlorothiazide, resolved with Lasix. -Prophylaxis: GI - oral Zantac q 12 DVT - SCDs; Lovenox 40 q day -Rehab: PT / OT Will eventually need LTACH / SNF Ann Marie Hart MD Jul 26, 2016 14:48
[2016-07-26] MEDS: ALPRAZolam 0.25 MG TAB PO PRN (21:23)
[2016-07-27] VITALS (8 sets, daily range): BP systolic 102–122; BP diastolic 64–81; PULSE 65–94; RESP 14–20; TEMP 95.3–98.7; O2SAT 84–100
[2016-07-27] MEDS: ACETAMINOPHEN/HYDROcodone 325 MG/5 MG TAB TUBE PRN (01:41)
[2016-07-27] MEDS: ALPRAZolam 0.25 MG TAB PO PRN (05:23)
[2016-07-27] MEDS: hydrALAZINE HCL 25 MG TAB TUBE SCH ×3 (05:23→21:35)
[2016-07-27] MEDS: LABETALOL HCL 300 MG TAB TUBE SCH ×2 (05:23→13:20)
[2016-07-27] MEDS: ENOXAPARIN SODIUM 40 MG/0.4 ML SYRINGE SQ SCH (09:03)
[2016-07-27] MEDS: QUEtiapine FUMARATE 25 MG TAB TUBE SCH ×2 (09:04→21:35)
[2016-07-27] MEDS: SODIUM CHLORIDE 0.9% FLUSH 5 ML FLUSH IVF SCH ×2 (09:04→21:00)
[2016-07-27] MEDS: RANITIDINE HCL SYRUP 150 MG/10 ML UDC TUBE SCH ×2 (09:04→21:35)
--- NOTE | 2016-07-27 09:24 | HHI.PR ---
Subjective Remarks s/p extraction of periodontally, decayed, broken teeth 21-27, 29 and 12/13 stabilization of tongue to help reduce tongue edema secondary to traumatic biting X 3 pt seen examined, trached following commands intermittently nurse at bedside out of the mouth again but straight in center, mid portion smaller in size, pink and well perfused Objective Vital Signs Date Time Temp Pulse Resp B/P Pulse Ox O2 Delivery O2 Flow Rate FiO2 07/27/16 04:00 97.8 94 18 118/81 100 07/27/16 00:00 98.7 84 18 119/64 84 07/26/16 20:00 97.4 74 16 131/85 100 07/26/16 18:05 T-piece 6.00 28 07/26/16 16:00 97.8 74 18 111/65 100 07/26/16 12:00 97.4 65 20 115/84 100 I/O 07/26/16 07/26/16 07/26/16 07/27/16 07/27/16 07/27/16 07:00 15:00 23:00 07:00 15:00 23:00 Output Total 1 ml Balance -1 ml Stool Total 1 ml # Voids 2 4 2 3 # Bowel Movements 1 Objective Remarks tongue edema stable,no increase, but still somewhat enlarged, soft wound margins well approximated, no signs of infection bleeding or pus no tongue laceration. tongue pink and well perfused, no ulcerations extraction sites stable, hemostatic tongue suspension sites holding tongue in center pt able to place tongue back into mouth, follows commands sometimes due to constant positioning of tongue/neck to the left, tongue shape changed keeps spitting the bite block out pt keeping head centered better today, tongue appears better centered today; but pt keeps trying to thrust the tongue out Assessment and Plan Assessment and Plan s/p extraction of teeth maxillary teeth 12/13, and mandibular teeth 21-17, 29 -decayed/periodontally involved causing traumatic biting to tongue, causing enlargement and stabilization of tongue X 3, last one being done at bedside yesterday tongue attached/pink and healthy/healing well, no ulcerations noted tongue edema decreasing, softer, but once again pt keeps the tongue protruded to the left - possibly due to her neurological status,but better centered today extraction sites stable, hemostatic continue supportive care in restraints, re-suspension of the tongue yesterday with sutures to maxillary gingiva/soft tissue, stable now, however pt keeps trying to protrude it out will follow, recommend keep head centered so tongue does not protrude out of mouth d/w dr. Hart today Steve Booth DMD Jul 27, 2016 09:24
--- NOTE | 2016-07-27 14:45 | HHI.PR ---
Subjective Remarks Late entry. Patient seen at noon. Afebrile. Objective Vitals Vital Signs Date Time Temp Pulse Resp B/P Pulse Ox O2 Delivery O2 Flow Rate FiO2 07/27/16 08:00 T-Piece 6.00 28 07/27/16 08:00 96.0 65 20 110/73 100 07/27/16 04:00 97.8 94 18 118/81 100 07/27/16 00:00 98.7 84 18 119/64 84 07/26/16 20:00 97.4 74 16 131/85 100 07/26/16 18:05 T-piece 6.00 28 07/26/16 16:00 97.8 74 18 111/65 100 I/O 07/26/16 07/26/16 07/26/16 07/27/16 07/27/16 07/27/16 07:00 15:00 23:00 07:00 15:00 23:00 Output Total 1 ml Balance -1 ml Stool Total 1 ml # Voids 2 4 2 3 # Bowel Movements 1 Objective Remarks GENERAL: Well-nourished, well-developed middle-aged female patient. SKIN: Warm and dry. Oropharyngeal: The patient has tongue swelling in the tongue is protruding from the mouth, no tongue bleeding. EYES: No scleral icterus. No injection or drainage. NECK: Supple, trachea midline. No JVD or lymphadenopathy. CARDIOVASCULAR: Regular rate and rhythm. No peripheral edema. RESPIRATORY: Breath sounds equal but coarse bilaterally. No accessory muscle use. GASTROINTESTINAL: Abdomen soft, non-tender, nondistended. PEG site intact. EXTREMITIES: No cyanosis, or edema. NEUROLOGICAL: Awake, alert. 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 s/p Dr. Meléndez performed left decompressive craniotomy 04/25 with evacuation of temporal hematoma. SLAB POLISHER shunt placed 05/07. S/p bone flap on 05/22. The patient has had some improvement and does follow some commands now. -Malignant Hypertension (Hypertensive emergency) on admission -- s/p 3 weeks of Nimotop therapy for vasospasm prevention. in SAH patient. now targeting SBP < 160. Continue Norvasc 10 q day, HCTZ 25 mg daily , labetalol 300 mg PO TID, hydralazine 75 mg q8. Hold parameters. Blood pressure stable. No change in management. 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 Not a candidate for surgical intervention due to recent devastating neuro injury -Acute respiratory failure (now chronic resp failure) secondary to SAH / ICH. s/ p tracheostomy 04/29. Cristino TP 23/03. Continue DuoNeb q 4 hours as needed -Severe tongue lacerations/p tongue laceration repair by Dr. Booth 05/16/16. S/ p resuspension of tongue today with sutures by Dr. Major - at bedside. I discussed with Dr. Booth today. Ideally the patient would keep her head straight as she tends to turn her head to the left and then she sticks her tongue out. The patient does not keep the bite guard in. The patient may ultimately need glossectomy if continues to persist, however this may affect her swallowing and speech so would best be avoided if at all possible. Continue low dose Xanax for decreasing anxiety possibly causing bruxism/tongue biting. -Mild protein calorie malnutrition - s/p PEG 04/28. Tolerating tube feeds (Jevity ) at goal of 50 cc/hr (-25-30 kcal/kg/day) -Mild transaminitis. probable fatty liver. LFTs stable. -Anemia of chronic inflammation / disease. Hgb stable with no signs of active bleeding -Sepsis secondary to pneumonia and prior UTI - resolved, now off all abx. -Hyperkalemia-continue hydrochlorothiazide, resolved with Lasix. -Prophylaxis: GI - oral Zantac q 12 DVT - SCDs; Lovenox 40 q day -Rehab: PT / OT Will eventually need LTACH / SNF Ann Marie Hart MD Jul 27, 2016 14:45
[2016-07-27] MEDS ORDERED: CHLORHEXIDINE 0.12% (ORAL KIT) 15 ML CUP OTHER SCH (21:00)
[2016-07-27] MEDS: CHLORHEXIDINE GLUCONATE 0.12% 30 ML CUP OTHER SCH (21:36)
[2016-07-28] VITALS (7 sets, daily range): BP systolic 114–142; BP diastolic 69–86; PULSE 74–83; RESP 14–20; TEMP 93.3–98.8; O2SAT 96–100
[2016-07-28] MEDS: hydrALAZINE HCL 25 MG TAB TUBE SCH ×2 (06:32→21:47)
[2016-07-28] MEDS: LABETALOL HCL 300 MG TAB TUBE SCH ×3 (06:33→22:00)
[2016-07-28] MEDS: SODIUM CHLORIDE 0.9% FLUSH 5 ML FLUSH IVF SCH ×2 (09:58→21:47)
[2016-07-28] MEDS: CHLORHEXIDINE GLUCONATE 0.12% 30 ML CUP OTHER SCH ×2 (09:59→21:46)
[2016-07-28] MEDS: ENOXAPARIN SODIUM 40 MG/0.4 ML SYRINGE SQ SCH (09:59)
[2016-07-28] MEDS: RANITIDINE HCL SYRUP 150 MG/10 ML UDC TUBE SCH ×2 (09:59→21:48)
[2016-07-28] MEDS: QUEtiapine FUMARATE 25 MG TAB TUBE SCH ×2 (09:59→21:48)
[2016-07-28] MEDS: ALPRAZolam 0.25 MG TAB PO PRN (17:07)
--- NOTE | 2016-07-28 18:35 | HHI.PR ---
Subjective Remarks No acute concerns. Objective Vitals Vital Signs Date Time Temp Pulse Resp B/P Pulse Ox O2 Delivery O2 Flow Rate FiO2 07/28/16 16:00 98.4 83 20 118/81 98 07/28/16 10:18 98 T-piece 5.00 07/28/16 08:00 98.8 74 20 114/69 98 07/28/16 04:00 97.5 76 14 127/86 100 07/28/16 02:00 T-Piece 07/28/16 00:00 93.3 80 16 121/76 100 07/27/16 20:00 95.5 84 14 122/70 100 07/27/16 19:52 97 T-piece 5.00 I/O 07/27/16 07/27/16 07/27/16 07/28/16 07/28/16 07/28/16 06:59 14:59 22:59 06:59 14:59 22:59 Intake Total 0 ml 819 ml 788 ml Output Total 1 ml Balance -1 ml 0 ml 819 ml 788 ml Intake Oral 0 ml Tube Feeding 619 ml 488 ml Other 200 ml 300 ml Stool Total 1 ml # Voids 3 3 3 # Bowel Movements 1 Objective Remarks GENERAL: Well-nourished, well-developed middle-aged female patient. SKIN: Warm and dry. Oropharyngeal: The patient has tongue swelling in the tongue is protruding from the mouth, no tongue bleeding. EYES: No scleral icterus. No injection or drainage. NECK: Supple, trachea midline. No JVD or lymphadenopathy. CARDIOVASCULAR: Regular rate and rhythm. No peripheral edema. RESPIRATORY: Breath sounds equal but coarse bilaterally. No accessory muscle use. GASTROINTESTINAL: Abdomen soft, non-tender, nondistended. PEG site intact. EXTREMITIES: No cyanosis, or edema. NEUROLOGICAL: Awake, alert. 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 s/p Dr. Meléndez performed left decompressive craniotomy 04/25 with evacuation of temporal hematoma. HOME CARE MANAGER RN shunt placed 05/07. S/p bone flap on 05/22. The patient has had some improvement and does follow some commands now. -Malignant Hypertension (Hypertensive emergency) on admission -- s/p 3 weeks of Nimotop therapy for vasospasm prevention. in SAH patient. now targeting SBP < 160. Continue Norvasc 10 q day, HCTZ 25 mg daily , labetalol 300 mg PO TID, hydralazine 75 mg q8. Hold parameters. Blood pressure stable. No change in management. 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 Not a candidate for surgical intervention due to recent devastating neuro injury -Acute respiratory failure (now chronic resp failure) secondary to SAH / ICH. s/ p tracheostomy 04/29. Cristino TP 23/03. Continue DuoNeb q 4 hours as needed -Severe tongue lacerations/p tongue laceration repair by Dr. Booth 05/16/16. S/ p resuspension of tongue today with sutures by Dr. Major - at bedside. I discussed with Dr. Booth today. Ideally the patient would keep her head straight as she tends to turn her head to the left and then she sticks her tongue out. The patient does not keep the bite guard in. The patient may ultimately need glossectomy if continues to persist, however this may affect her swallowing and speech so would best be avoided if at all possible. Continue low dose Xanax for decreasing anxiety possibly causing bruxism/tongue biting. -Mild protein calorie malnutrition - s/p PEG 04/28. Tolerating tube feeds (Jevity ) at goal of 50 cc/hr (-25-30 kcal/kg/day) -Mild transaminitis. probable fatty liver. LFTs stable. -Anemia of chronic inflammation / disease. Hgb stable with no signs of active bleeding -Sepsis secondary to pneumonia and prior UTI - resolved, now off all abx. -Hyperkalemia-continue hydrochlorothiazide, resolved with Lasix. -Prophylaxis: GI - oral Zantac q 12 DVT - SCDs; Lovenox 40 q day -Rehab: PT / OT Will eventually need LTACH / SNF Ann Marie Hart MD Jul 28, 2016 18:35
[2016-07-28] MEDS: ACETAMINOPHEN/HYDROcodone 325 MG/5 MG TAB TUBE PRN (21:47)
[2016-07-29] VITALS (8 sets, daily range): BP systolic 118–143; BP diastolic 76–86; PULSE 74–97; RESP 18–22; TEMP 96.4–98.6; O2SAT 97–100
[2016-07-29] MEDS: ALPRAZolam 0.25 MG TAB PO PRN ×2 (03:50→18:04)
[2016-07-29] MEDS: ACETAMINOPHEN/HYDROcodone 325 MG/5 MG TAB TUBE PRN ×2 (03:50→21:02)
[2016-07-29] MEDS: hydrALAZINE HCL 25 MG TAB TUBE SCH ×3 (06:02→21:01)
[2016-07-29] MEDS: LABETALOL HCL 300 MG TAB TUBE SCH ×3 (06:02→21:01)
[2016-07-29] MEDS: SODIUM CHLORIDE 0.9% FLUSH 5 ML FLUSH IVF SCH ×2 (09:00→21:00)
[2016-07-29] MEDS: CHLORHEXIDINE GLUCONATE 0.12% 30 ML CUP OTHER SCH ×2 (09:00→21:00)
[2016-07-29] MEDS: QUEtiapine FUMARATE 25 MG TAB TUBE SCH ×2 (09:13→21:01)
[2016-07-29] MEDS: RANITIDINE HCL SYRUP 150 MG/10 ML UDC TUBE SCH ×2 (09:13→21:01)
[2016-07-29] MEDS: ENOXAPARIN SODIUM 40 MG/0.4 ML SYRINGE SQ SCH (09:13)
--- NOTE | 2016-07-29 14:26 | HHI.PR ---
Subjective Remarks Follow-up tongue trauma and encephalopathy. Intermittent tongue bleeding. She is lethargic today received Ativan and Lortab. Discussed with RN, productive cough with emmanuel phlegm no fever Objective Vitals Vital Signs Date Time Temp Pulse Resp B/P Pulse Ox O2 Delivery O2 Flow Rate FiO2 07/29/16 12:00 97.1 96 22 118/80 97 07/29/16 09:23 99 28 07/29/16 09:00 T-Piece 6.00 28 07/29/16 08:00 98.6 97 20 120/78 100 07/29/16 04:00 96.4 80 18 143/76 100 07/29/16 00:00 97.3 74 20 133/82 98 07/28/16 21:56 96 T-piece 6.00 28 07/28/16 20:35 T-Piece 6.00 28 07/28/16 20:00 97.6 76 20 142/85 99 07/28/16 16:00 98.4 83 20 118/81 98 I/O 07/28/16 07/28/16 07/28/16 07/29/16 07/29/16 07/29/16 07:00 15:00 23:00 07:00 15:00 23:00 Intake Total 788 ml Balance 788 ml Tube Feeding 488 ml Other 300 ml # Voids 3 3 3 1 # Bowel Movements 1 1 Objective Remarks GENERAL: This is a well-nourished, well-developed patient, in no apparent distress. Tracheostomy. Swollen extruded tongue status post laceration repair, appears smaller with small necrotic area right side and superficial wound left lateral side no active bleeding. S/p lower teeth extraction by Dr Booth CARDIOVASCULAR: Regular rate and rhythm without gallops, or rubs. Murmur noted RESPIRATORY: Trach in place. Clear to auscultation. Breath sounds equal bilaterally. No wheezes, rales, or rhonchi. GASTROINTESTINAL: peg in place. Abdomen soft, non-tender, nondistended. Normal active bowel sounds MUSCULOSKELETAL: Extremities without clubbing, cyanosis, or edema. 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 s/p Dr. Meléndez performed left decompressive craniotomy 04/25 with evacuation of temporal hematoma. SOFTWARE SALES EXECUTIVE shunt placed 05/07. S/p bone flap on 05/22. The patient has had some improvement and does follow some commands now. -Malignant Hypertension (Hypertensive emergency) on admission -- s/p 3 weeks of Nimotop therapy for vasospasm prevention. in SAH patient. now targeting SBP < 160. Continue Norvasc 10 q day, HCTZ 25 mg daily , labetalol 300 mg PO TID, hydralazine 75 mg q8. Hold parameters. Blood pressure stable. No change in management. 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 Not a candidate for surgical intervention due to recent devastating neuro injury -Acute respiratory failure (now chronic resp failure) secondary to SAH / ICH. s/ p tracheostomy 04/29. Cristino TP 23/03. Continue DuoNeb q 4 hours as needed -Macroglossia. Tongue edema again secondary to lower teeth biting with remaining upper teeth. S/P extraction of teeth to help reduce tongue edema 07/[address] Booth. Now with necrotic area and intermittent bleeding. RN to follow up with OMFS - Chronic mild Transaminitis. CT of the abdomen shows normal liver. Repeat LFTs stable negative hepatitis profile Mild protein calorie malnutrition - s/p PEG 04/28. Tolerating tube feeds (Jevity ) at goal of 50 cc/hr (-25-30 kcal/kg/day) -Anemia of chronic inflammation / disease. Hgb stable with no signs of active bleeding -Sepsis secondary to pneumonia and prior UTI - resolved, now off all abx. -Hyperkalemia-continue hydrochlorothiazide, resolved with Lasix. -Prophylaxis: GI - oral Zantac q 12 DVT - SCDs; Lovenox 40 q day -Rehab: PT / OT Will eventually need LTACH / SNF Discharge Planning DC to rehab when arranged, no accepting facility Michael Howard MD Jul 29, 2016 14:26 Ann Marie Hart MD Jul 28, 2016 18:35 Discharge Planning DC to rehab when arranged, no accepting facility Michael Howard MD Jul 29, 2016 14:26
[2016-07-30] VITALS (7 sets, daily range): BP systolic 107–175; BP diastolic 71–85; PULSE 62–90; RESP 18–20; TEMP 95.6–97.5; O2SAT 94–100
[2016-07-30] MEDS: ACETAMINOPHEN/HYDROcodone 325 MG/5 MG TAB TUBE PRN ×2 (04:03→21:13)
[2016-07-30] MEDS: hydrALAZINE HCL 25 MG TAB TUBE SCH ×3 (05:45→21:12)
[2016-07-30] MEDS: LABETALOL HCL 300 MG TAB TUBE SCH ×3 (05:45→21:12)
[2016-07-30] MEDS: SODIUM CHLORIDE 0.9% FLUSH 5 ML FLUSH IVF SCH ×2 (09:00→21:13)
[2016-07-30] MEDS: ENOXAPARIN SODIUM 40 MG/0.4 ML SYRINGE SQ SCH (09:44)
[2016-07-30] MEDS: RANITIDINE HCL SYRUP 150 MG/10 ML UDC TUBE SCH ×2 (09:44→21:13)
[2016-07-30] MEDS: QUEtiapine FUMARATE 25 MG TAB TUBE SCH ×2 (09:44→21:13)
[2016-07-30] MEDS: CHLORHEXIDINE GLUCONATE 0.12% 30 ML CUP OTHER SCH ×2 (09:45→21:13)
--- NOTE | 2016-07-30 13:44 | HHI.PR ---
Objective Vitals Vital Signs Date Time Temp Pulse Resp B/P Pulse Ox O2 Delivery O2 Flow Rate FiO2 07/30/16 12:00 95.8 76 20 131/78 100 07/30/16 09:57 T-Piece 6.00 28 07/30/16 08:41 94 T-piece 07/30/16 08:00 95.6 67 18 107/71 100 07/30/16 04:00 96.6 62 18 121/77 100 07/30/16 00:00 97.5 76 20 127/84 96 07/29/16 20:39 99 T-piece 28 07/29/16 20:00 97.8 78 20 135/86 97 07/29/16 17:00 96.5 78 20 126/86 97 I/O 07/29/16 07/29/16 07/29/16 07/30/16 07/30/16 07/30/16 06:59 14:59 22:59 06:59 14:59 22:59 Intake Total 0 ml Balance 0 ml Intake Oral 0 ml # Voids 3 1 6 4 # Bowel Movements 1 1 1 Objective Remarks GENERAL: This is a well-nourished, well-developed patient, in no apparent distress. Tracheostomy. Swollen extruded tongue status post laceration repair, appears smaller with small necrotic area right side and superficial wound left lateral side no active bleeding. S/p lower teeth extraction by Dr Booth CARDIOVASCULAR: Regular rate and rhythm without gallops, or rubs. Murmur noted RESPIRATORY: Trach in place. Clear to auscultation. Breath sounds equal bilaterally. No wheezes, rales, or rhonchi. GASTROINTESTINAL: peg in place. Abdomen soft, non-tender, nondistended. Normal active bowel sounds MUSCULOSKELETAL: Extremities without clubbing, cyanosis, or edema. 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 s/p Dr. Meléndez performed left decompressive craniotomy 04/25 with evacuation of temporal hematoma. LOAN SERVICE OFFICER shunt placed 05/07. S/p bone flap on 05/22. The patient has had some improvement and does follow some commands now. -Malignant Hypertension (Hypertensive emergency) on admission -- s/p 3 weeks of Nimotop therapy for vasospasm prevention. in SAH patient. now targeting SBP < 160. Continue Norvasc 10 q day, HCTZ 25 mg daily , labetalol 300 mg PO TID, hydralazine 75 mg q8. Hold parameters. Blood pressure stable. No change in management. 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 Not a candidate for surgical intervention due to recent devastating neuro injury -Acute respiratory failure (now chronic resp failure) secondary to SAH / ICH. s/ p tracheostomy 04/29. Cristino TP 23/03. Continue DuoNeb q 4 hours as needed -Macroglossia. Tongue edema again secondary to lower teeth biting with remaining upper teeth. S/P extraction of teeth to help reduce tongue edema 07/[address] Booth. Now with necrotic area and intermittent bleeding. RN to follow up with OMFS - Chronic mild Transaminitis. CT of the abdomen shows normal liver. Repeat LFTs stable negative hepatitis profile Mild protein calorie malnutrition - s/p PEG 04/28. Tolerating tube feeds (Jevity ) at goal of 50 cc/hr (-25-30 kcal/kg/day) -Anemia of chronic inflammation / disease. Hgb stable with no signs of active bleeding -Sepsis secondary to pneumonia and prior UTI - resolved, now off all abx. -Hyperkalemia-continue hydrochlorothiazide, resolved with Lasix. -Prophylaxis: GI - oral Zantac q 12 DVT - SCDs; Lovenox 40 q day -Rehab: PT / OT Will eventually need LTACH / SNF Discharge Planning DC to rehab when arranged, no accepting facility Michael Howard MD Jul 30, 2016 13:44
--- NOTE | 2016-07-30 13:58 | HHI.PR ---
Subjective Remarks s/p extraction of periodontally, decayed, broken teeth 21-27, 29 and 12/13 stabilization of tongue to help reduce tongue edema secondary to traumatic biting X 3 pt seen examined, trached following commands intermittently out of the mouth again, to the left, mid portion smaller in size, pink and well perfused Objective Vital Signs Date Time Temp Pulse Resp B/P Pulse Ox O2 Delivery O2 Flow Rate FiO2 07/30/16 12:00 95.8 76 20 131/78 100 07/30/16 09:57 T-Piece 6.00 28 07/30/16 08:41 94 T-piece 28 07/30/16 08:00 95.6 67 18 107/71 100 07/30/16 04:00 96.6 62 18 121/77 100 07/30/16 00:00 97.5 76 20 127/84 96 07/29/16 20:39 99 T-piece 28 07/29/16 20:00 97.8 78 20 135/86 97 07/29/16 17:00 96.5 78 20 126/86 97 I/O 07/29/16 07/29/16 07/29/16 07/30/16 07/30/16 07/30/16 07:00 15:00 23:00 07:00 15:00 23:00 Intake Total 0 ml Balance 0 ml Intake Oral 0 ml # Voids 3 1 6 4 # Bowel Movements 1 1 1 Objective Remarks tongue edema stable,no increase, but still somewhat enlarged, soft wound margins well approximated, no signs of infection bleeding or pus sutures noted - right side noted she thrust tongue out of mouth, traumatized right lateral border region areas of suture - small area around suture site ecchymotic, hemostatic left lateral site stable, dried clot no tongue laceration. tongue pink and well perfused, no ulcerations extraction sites stable, hemostatic tongue out of mouth again to the left pt able to place tongue back into mouth, follows commands now due to constant positioning of tongue/neck to the left, tongue shape changed, and protrudes to the left hx of spitting the bite block out Assessment and Plan Assessment and Plan s/p extraction of teeth maxillary teeth 12/13, and mandibular teeth 21-17, 29 -decayed/periodontally involved causing traumatic biting to tongue, causing enlargement and stabilization of tongue X 3, last one being done at bedside few days ago tongue attached/pink and healthy/healing well, no ulcerations noted tongue edema decreasing, softer, but once again pt keeps the tongue protruded to the left - possibly due to her neurological status, traumatized tongue lateral border due to tearing of sutures by thrusting tongue forward extraction sites stable, hemostatic continue supportive care in restraints, As pt 's neurological status improves, I am hopeful she with stop protruding her tongue out, and actively position it back inside her mouth. Do not recommend glossectomy keep tongue clean with Peridex swabs no further surgical intervention from OMS standpoint d/w abando today Steve Booth DMD Jul 30, 2016 13:58
--- NOTE | 2016-07-30 14:25 | HHI.PR ---
Subjective Remarks Follow-up tongue trauma. Intermittent bleeding right side of the thumb. Discussed with RN and OMFS Objective Vitals Vital Signs Date Time Temp Pulse Resp B/P Pulse Ox O2 Delivery O2 Flow Rate FiO2 07/30/16 12:00 95.8 76 20 131/78 100 07/30/16 09:57 T-Piece 6.00 28 07/30/16 08:41 94 T-piece 28 07/30/16 08:00 95.6 67 18 107/71 100 07/30/16 04:00 96.6 62 18 121/77 100 07/30/16 00:00 97.5 76 20 127/84 96 07/29/16 20:39 99 T-piece 28 07/29/16 20:00 97.8 78 20 135/86 97 07/29/16 17:00 96.5 78 20 126/86 97 I/O 07/29/16 07/29/16 07/29/16 07/30/16 07/30/16 07/30/16 07:00 15:00 23:00 07:00 15:00 23:00 Intake Total 0 ml Balance 0 ml Intake Oral 0 ml # Voids 3 1 6 4 # Bowel Movements 1 1 1 Objective Remarks GENERAL: This is a well-nourished, well-developed patient, in no apparent distress. Tracheostomy. Swollen extruded tongue status post laceration repair, appears smaller with small ecchymotic area right side and superficial wound left lateral side no active bleeding. S/p lower teeth extraction by Dr Booth CARDIOVASCULAR: Regular rate and rhythm without gallops, or rubs. Murmur noted RESPIRATORY: Trach in place. Clear to auscultation. Breath sounds equal bilaterally. No wheezes, rales, or rhonchi. GASTROINTESTINAL: peg in place. Abdomen soft, non-tender, nondistended. Normal active bowel sounds MUSCULOSKELETAL: Extremities without clubbing, cyanosis, or edema. 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 s/p Dr. Meléndez performed left decompressive craniotomy 04/25 with evacuation of temporal hematoma. 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 S/p bone flap on 05/22. The patient has had some improvement and does follow some commands now. -Malignant Hypertension (Hypertensive emergency) on admission -- s/p 3 weeks of Nimotop therapy for vasospasm prevention. in SAH patient. now targeting SBP < 160. Continue Norvasc 10 q day, HCTZ 25 mg daily , labetalol 300 mg PO TID, hydralazine 75 mg q8. Hold parameters. Blood pressure stable. No change in management. 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 Not a candidate for surgical intervention due to recent devastating neuro injury -Acute respiratory failure (now chronic resp failure) secondary to SAH / ICH. s/ p tracheostomy 04/29. Cristino TP 23/03. Continue DuoNeb q 4 hours as needed -Macroglossia. Tongue edema again secondary to lower teeth biting with remaining upper teeth. S/P extraction of teeth to help reduce tongue edema 07/[address] Booth. Now with ecchymotic area and intermittent bleeding. Per OMFS, wd care and monitor - Chronic mild Transaminitis. CT of the abdomen shows normal liver. Repeat LFTs stable negative hepatitis profile Mild protein calorie malnutrition - s/p PEG 04/28. Tolerating tube feeds (Jevity ) at goal of 50 cc/hr (-25-30 kcal/kg/day) -Anemia of chronic inflammation / disease. Hgb stable with no signs of active bleeding -Sepsis secondary to pneumonia and prior UTI - resolved, now off all abx. -Hyperkalemia-continue hydrochlorothiazide, resolved with Lasix. -Prophylaxis: GI - oral Zantac q 12 DVT - SCDs; Lovenox 40 q day -Rehab: PT / OT Will eventually need LTACH / SNF Discharge Planning DC to rehab when arranged, no accepting facility Michael Howard MD Jul 30, 2016 14:25
[2016-07-30] MEDS: ALPRAZolam 0.25 MG TAB PO PRN (14:52)
[2016-07-31] VITALS (8 sets, daily range): BP systolic 112–151; BP diastolic 70–81; PULSE 71–95; RESP 18–21; TEMP 96.3–98.8; O2SAT 96–100
[2016-07-31] MEDS: ALPRAZolam 0.25 MG TAB PO PRN ×2 (00:44→21:10)
[2016-07-31] MEDS: hydrALAZINE HCL 25 MG TAB TUBE SCH ×3 (05:26→21:09)
[2016-07-31] MEDS: LABETALOL HCL 300 MG TAB TUBE SCH ×3 (05:26→21:09)
[2016-07-31] MEDS: CHLORHEXIDINE GLUCONATE 0.12% 30 ML CUP OTHER SCH ×2 (08:32→21:10)
[2016-07-31] MEDS: ENOXAPARIN SODIUM 40 MG/0.4 ML SYRINGE SQ SCH (08:32)
[2016-07-31] MEDS: QUEtiapine FUMARATE 25 MG TAB TUBE SCH ×2 (08:33→21:10)
[2016-07-31] MEDS: SODIUM CHLORIDE 0.9% FLUSH 5 ML FLUSH IVF SCH ×2 (08:33→21:11)
[2016-07-31] MEDS: RANITIDINE HCL SYRUP 150 MG/10 ML UDC TUBE SCH ×2 (08:33→21:10)
--- NOTE | 2016-07-31 13:22 | HHI.PR ---
Subjective Remarks Follow-up tongue trauma. Patient awake and more responsive specially with family around. As with RN Objective Vitals Vital Signs Date Time Temp Pulse Resp B/P Pulse Ox O2 Delivery O2 Flow Rate FiO2 07/31/16 08:00 97.7 71 20 125/71 96 07/31/16 04:00 98.8 78 20 142/81 96 07/31/16 01:30 97.0 83 18 151/70 98 07/30/16 20:00 97.2 90 18 175/85 98 07/30/16 16:00 97.3 73 20 119/82 100 I/O 07/30/16 07/30/16 07/30/16 07/31/16 07/31/16 07/31/16 07:00 15:00 23:00 07:00 15:00 23:00 Intake Total 930 ml Output Total 2 ml Balance -2 ml 930 ml Tube Feeding 530 ml Other 400 ml Stool Total 2 ml # Voids 4 3 10 # Bowel Movements 1 Objective Remarks GENERAL: This is a well-nourished, well-developed patient, in no apparent distress. Tracheostomy. Swollen extruded tongue status post laceration repair, appears smaller with small ecchymotic area right side and superficial wound left lateral side no active bleeding. S/p lower teeth extraction by Dr Booth CARDIOVASCULAR: Regular rate and rhythm without gallops, or rubs. Murmur noted RESPIRATORY: Trach in place. Clear to auscultation. Breath sounds equal bilaterally. No wheezes, rales, or rhonchi. GASTROINTESTINAL: peg in place. Abdomen soft, non-tender, nondistended. Normal active bowel sounds MUSCULOSKELETAL: Extremities without clubbing, cyanosis, or edema. NEURO: Awake and following simple commands. 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 s/p Dr. Meléndez performed left decompressive craniotomy 04/25 with evacuation of temporal hematoma. CEMETERY WARDEN shunt placed 05/07. S/p bone flap on 05/22. The patient has had some improvement and does follow some commands -Malignant Hypertension (Hypertensive emergency) on admission -- s/p 3 weeks of Nimotop therapy for vasospasm prevention. in SAH patient. now targeting SBP < 160. Continue Norvasc 10 q day, HCTZ 25 mg daily , labetalol 300 mg PO TID, hydralazine 75 mg q8. Hold parameters. Blood pressure stable. No change in management. 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 Not a candidate for surgical intervention due to recent devastating neuro injury -Acute respiratory failure (now chronic resp failure) secondary to SAH / ICH. s/ p tracheostomy 04/29. Cristino TP 23/03. Continue DuoNeb q 4 hours as needed -Macroglossia. Tongue edema again secondary to lower teeth biting with remaining upper teeth. S/P extraction of teeth to help reduce tongue edema 07/[address] Booth. Now with ecchymotic area and intermittent bleeding. Per OMFS, wd care and monitor - Chronic mild Transaminitis. CT of the abdomen shows normal liver. Repeat LFTs stable negative hepatitis profile Mild protein calorie malnutrition - s/p PEG 04/28. Tolerating tube feeds (Jevity ) at goal of 50 cc/hr (-25-30 kcal/kg/day) -Anemia of chronic inflammation / disease. Hgb stable with no signs of active bleeding -Sepsis secondary to pneumonia and prior UTI - resolved, now off all abx. -Hyperkalemia-continue hydrochlorothiazide, resolved with Lasix. -Prophylaxis: GI - oral Zantac q 12 DVT - SCDs; Lovenox 40 q day -Rehab: PT / OT Will eventually need LTACH / SNF Discharge Planning DC to rehab when arranged, no accepting facility Michael Howard MD Jul 31, 2016 13:22
[2016-08-01] VITALS (7 sets, daily range): BP systolic 116–138; BP diastolic 78–89; PULSE 78–93; RESP 18–20; TEMP 95.4–98.7; O2SAT 98–100
[2016-08-01] MEDS: ALPRAZolam 0.25 MG TAB PO PRN ×2 (05:08→22:50)
[2016-08-01] MEDS: hydrALAZINE HCL 25 MG TAB TUBE SCH ×3 (05:08→22:50)
[2016-08-01] MEDS: LABETALOL HCL 300 MG TAB TUBE SCH ×3 (05:08→22:51)
[2016-08-01] MEDS: ACETAMINOPHEN/HYDROcodone 325 MG/5 MG TAB TUBE PRN ×2 (05:08→22:51)
[2016-08-01] MEDS: QUEtiapine FUMARATE 25 MG TAB TUBE SCH ×2 (08:37→22:50)
[2016-08-01] MEDS: RANITIDINE HCL SYRUP 150 MG/10 ML UDC TUBE SCH ×2 (08:37→22:51)
[2016-08-01] MEDS: ENOXAPARIN SODIUM 40 MG/0.4 ML SYRINGE SQ SCH (08:38)
[2016-08-01] MEDS: CHLORHEXIDINE GLUCONATE 0.12% 30 ML CUP OTHER SCH ×2 (08:38→21:00)
[2016-08-01] MEDS: SODIUM CHLORIDE 0.9% FLUSH 5 ML FLUSH IVF SCH ×2 (08:38→22:51)
--- NOTE | 2016-08-01 14:13 | HHI.PR ---
Subjective Remarks Follow-up tongue trauma. No tongue bleeding. Discussed with RN Objective Vitals Vital Signs Date Time Temp Pulse Resp B/P Pulse Ox O2 Delivery O2 Flow Rate FiO2 08/01/16 13:10 98 T-piece 21 08/01/16 12:00 97.9 88 20 120/79 98 08/01/16 08:43 95.4 78 20 118/78 100 08/01/16 05:38 97.1 85 18 138/89 99 08/01/16 00:14 97.5 84 18 116/79 98 07/31/16 21:43 97.2 95 18 118/75 99 07/31/16 20:46 98 T-piece 5.00 21 07/31/16 17:06 97 T-piece 5.00 21 07/31/16 16:00 97.6 80 21 112/71 99 I/O 07/31/16 07/31/16 07/31/16 08/01/16 08/01/16 08/01/16 07:00 15:00 23:00 07:00 15:00 23:00 Intake Total 930 ml 950 ml Output Total 2 ml Balance -2 ml 930 ml 950 ml Tube Feeding 530 ml 450 ml Other 400 ml 500 ml Stool Total 2 ml # Voids 10 6 4 # Bowel Movements 2 1 Objective Remarks GENERAL: This is a well-nourished, well-developed patient, in no apparent distress. Tracheostomy. Swollen extruded tongue status post laceration repair, appears smaller with small ecchymotic area right side and superficial wound left lateral side no active bleeding. S/p lower teeth extraction by Dr Booth CARDIOVASCULAR: Regular rate and rhythm without gallops, or rubs. Murmur noted RESPIRATORY: Trach in place. Clear to auscultation. Breath sounds equal bilaterally. No wheezes, rales, or rhonchi. GASTROINTESTINAL: peg in place. Abdomen soft, non-tender, nondistended. Normal active bowel sounds MUSCULOSKELETAL: Extremities without clubbing, cyanosis, or edema. NEURO: Awake and following simple commands. 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 s/p Dr. Meléndez performed left decompressive craniotomy 04/25 with evacuation of temporal hematoma. 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 S/p bone flap on 05/22. The patient has had some improvement and does follow some commands -Malignant Hypertension (Hypertensive emergency) on admission -- s/p 3 weeks of Nimotop therapy for vasospasm prevention. in SAH patient. now targeting SBP < 160. Continue Norvasc 10 q day, HCTZ 25 mg daily , labetalol 300 mg PO TID, hydralazine 75 mg q8. Hold parameters. Blood pressure stable. No change in management. 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 Not a candidate for surgical intervention due to recent devastating neuro injury -Acute respiratory failure (now chronic resp failure) secondary to SAH / ICH. s/ p tracheostomy 04/29. Cristino TP 23/03. Continue DuoNeb q 4 hours as needed -Macroglossia. Tongue edema again secondary to lower teeth biting with remaining upper teeth. S/P extraction of teeth to help reduce tongue edema 07/[address] Booth. Now with ecchymotic area and intermittent bleeding. Per OMFS, wd care and monitor - Chronic mild Transaminitis. CT of the abdomen shows normal liver. Repeat LFTs stable negative hepatitis profile Mild protein calorie malnutrition - s/p PEG 04/28. Tolerating tube feeds (Jevity ) at goal of 50 cc/hr (-25-30 kcal/kg/day) -Anemia of chronic inflammation / disease. Hgb stable with no signs of active bleeding -Sepsis secondary to pneumonia and prior UTI - resolved, now off all abx. -Hyperkalemia-continue hydrochlorothiazide, resolved with Lasix. -Prophylaxis: GI - oral Zantac q 12 DVT - SCDs; Lovenox 40 q day -Rehab: PT / OT Will eventually need LTACH / SNF Discharge Planning DC to rehab when arranged, no accepting facility Michael Howard MD Aug 01, 2016 14:13
[2016-08-02] VITALS (7 sets, daily range): BP systolic 104–124; BP diastolic 58–79; PULSE 62–88; RESP 18–20; TEMP 96.4–98.1; O2SAT 98–100
[2016-08-02] MEDS: hydrALAZINE HCL 25 MG TAB TUBE SCH ×3 (05:31→21:39)
[2016-08-02] MEDS: LABETALOL HCL 300 MG TAB TUBE SCH ×3 (05:31→21:39)
[2016-08-02] MEDS: ACETAMINOPHEN/HYDROcodone 325 MG/5 MG TAB TUBE PRN ×2 (05:31→14:09)
[2016-08-02] MEDS: SODIUM CHLORIDE 0.9% FLUSH 5 ML FLUSH IVF SCH ×2 (09:00→21:39)
[2016-08-02] MEDS: RANITIDINE HCL SYRUP 150 MG/10 ML UDC TUBE SCH ×2 (10:02→21:39)
[2016-08-02] MEDS: CHLORHEXIDINE GLUCONATE 0.12% 30 ML CUP OTHER SCH ×2 (10:03→21:40)
[2016-08-02] MEDS: QUEtiapine FUMARATE 25 MG TAB TUBE SCH ×2 (10:04→21:39)
[2016-08-02] MEDS: ENOXAPARIN SODIUM 40 MG/0.4 ML SYRINGE SQ SCH (10:04)
--- NOTE | 2016-08-02 11:52 | HHI.PR ---
Subjective Remarks Follow-up tongue trauma. No new changes. No tongue bleeding. Discussed with RN. Objective Vitals Vital Signs Date Time Temp Pulse Resp B/P Pulse Ox O2 Delivery O2 Flow Rate FiO2 08/02/16 10:11 T-Piece 08/02/16 08:22 96.8 62 20 107/67 98 08/02/16 07:40 98 T-piece 08/02/16 04:00 96.7 71 18 104/66 100 08/02/16 00:00 96.4 72 20 124/79 99 08/01/16 20:00 98.7 93 20 132/89 99 08/01/16 20:00 T-Piece 08/01/16 17:51 98 T-piece 6.00 21 08/01/16 13:10 98 T-piece 08/01/16 12:00 97.9 88 20 120/79 98 I/O 08/01/16 08/01/16 08/01/16 08/02/16 08/02/16 08/02/16 07:00 15:00 23:00 07:00 15:00 23:00 Intake Total 950 ml 553 ml 556 ml Balance 950 ml 553 ml 556 ml IV Total 0 ml 0 ml Tube Feeding 450 ml 433 ml 416 ml Other 500 ml 120 ml 140 ml # Voids 4 3 3 1 # Bowel Movements 1 2 1 Objective Remarks GENERAL: This is a well-nourished, well-developed patient, in no apparent distress. Tracheostomy. Swollen extruded tongue status post laceration repair, appears smaller with small ecchymotic area right side and superficial wound left lateral side no active bleeding. S/p lower teeth extraction by Dr Booth CARDIOVASCULAR: Regular rate and rhythm without gallops, or rubs. Murmur noted RESPIRATORY: Trach in place. Clear to auscultation. Breath sounds equal bilaterally. No wheezes, rales, or rhonchi. GASTROINTESTINAL: peg in place. Abdomen soft, non-tender, nondistended. Normal active bowel sounds MUSCULOSKELETAL: Extremities without clubbing, cyanosis, or edema. NEURO: Awake and following simple commands. 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 s/p Dr. Meléndez performed left decompressive craniotomy 04/25 with evacuation of temporal hematoma. PARAMEDIC shunt placed 05/07. S/p bone flap on 05/22. The patient has had some improvement and does follow some commands -Malignant Hypertension (Hypertensive emergency) on admission -- s/p 3 weeks of Nimotop therapy for vasospasm prevention. in SAH patient. now targeting SBP < 160. Continue Norvasc 10 q day, HCTZ 25 mg daily , labetalol 300 mg PO TID, hydralazine 75 mg q8. Hold parameters. Blood pressure stable. No change in management. 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 Not a candidate for surgical intervention due to recent devastating neuro injury -Acute respiratory failure (now chronic resp failure) secondary to SAH / ICH. s/ p tracheostomy 04/29. Cristino TP 23/03. Continue DuoNeb q 4 hours as needed -Macroglossia. Tongue edema again secondary to lower teeth biting with remaining upper teeth. S/P extraction of teeth to help reduce tongue edema 07/[address] Booth. Now with ecchymotic area and intermittent bleeding. Per OMFS, wd care and monitor -Chronic mild Transaminitis. CT of the abdomen shows normal liver. Repeat LFTs stable negative hepatitis profile Mild protein calorie malnutrition - s/p PEG 04/28. Tolerating tube feeds (Jevity ) at goal of 50 cc/hr (-25-30 kcal/kg/day) -Anemia of chronic inflammation / disease. Hgb stable with no signs of active bleeding -Sepsis secondary to pneumonia and prior UTI - resolved, now off all abx. -Hyperkalemia-continue hydrochlorothiazide, resolved with Lasix. -Prophylaxis: GI - oral Zantac q 12 DVT - SCDs; Lovenox 40 q day -Rehab: PT / OT Will eventually need LTACH / SNF Discharge Planning DC to rehab when arranged, no accepting facility Michael Howard MD Aug 02, 2016 11:52
[2016-08-02] MEDS: ALPRAZolam 0.25 MG TAB PO PRN (21:39)
[2016-08-03] VITALS (7 sets, daily range): BP systolic 108–122; BP diastolic 68–86; PULSE 68–89; RESP 18–20; TEMP 97.7–98.8; O2SAT 97–99
[2016-08-03] MEDS: ACETAMINOPHEN/HYDROcodone 325 MG/5 MG TAB TUBE PRN ×3 (00:38→14:57)
[2016-08-03] MEDS: hydrALAZINE HCL 25 MG TAB TUBE SCH ×3 (05:09→21:47)
[2016-08-03] MEDS: ALPRAZolam 0.25 MG TAB PO PRN (05:09)
[2016-08-03] MEDS: LABETALOL HCL 300 MG TAB TUBE SCH ×3 (05:11→21:47)
[2016-08-03] MEDS: ENOXAPARIN SODIUM 40 MG/0.4 ML SYRINGE SQ SCH (08:42)
[2016-08-03] MEDS: RANITIDINE HCL SYRUP 150 MG/10 ML UDC TUBE SCH ×2 (08:42→21:47)
[2016-08-03] MEDS: SODIUM CHLORIDE 0.9% FLUSH 5 ML FLUSH IVF SCH ×2 (08:43→21:48)
[2016-08-03] MEDS: QUEtiapine FUMARATE 25 MG TAB TUBE SCH ×2 (08:43→21:47)
[2016-08-03] MEDS: CHLORHEXIDINE GLUCONATE 0.12% 30 ML CUP OTHER SCH ×2 (08:44→21:47)
--- NOTE | 2016-08-03 14:09 | HHI.PR ---
Subjective Remarks Follow up for SAH, neurological injury, tongue trauma. Discussed with RN, no acute events overnight. No further tongue bleeding. She follows some commands. Vital signs reviewed and stable. Objective Vitals Vital Signs Date Time Temp Pulse Resp B/P Pulse Ox O2 Delivery O2 Flow Rate FiO2 08/03/16 12:00 97.8 83 20 122/86 98 08/03/16 08:15 T-Piece 28 08/03/16 08:00 98.0 89 20 120/84 98 08/03/16 05:00 98.1 80 18 112/68 98 08/03/16 01:35 16 08/03/16 00:00 98.8 68 19 108/72 99 08/02/16 21:50 98.1 88 18 110/65 98 08/02/16 16:18 98.0 72 20 107/58 98 I/O 08/02/16 08/02/16 08/02/16 08/03/16 08/03/16 08/03/16 07:00 15:00 23:00 07:00 15:00 23:00 Intake Total 556 ml 630 ml 443 ml Balance 556 ml 630 ml 443 ml Intake Oral 0 ml 0 ml IV Total 0 ml Tube Feeding 416 ml 630 ml 443 ml Other 140 ml # Voids 1 4 1 7 # Bowel Movements 1 2 0 0 Objective Remarks GENERAL: Well-nourished, well-developed patient in NAD. SKIN: Warm and dry. No rash. HEAD: Normocephalic. Atraumatic. EYES: Pupils equal and round. No scleral icterus. No injection or drainage. ENT: Swollen and protruding tongue, s/p laceration repair, small ecchymotic areas; no active bleeding. S/p dental extractions. NECK: Tracheostomy in place. CARDIOVASCULAR: Regular rate and rhythm. S1, S2 noted. 5/6 systolic murmur noted. RESPIRATORY: No accessory muscle use. Clear to auscultation. Breath sounds equal bilaterally. GASTROINTESTINAL: Abdomen soft, non-tender, nondistended. Normoactive bowel sounds x4. Peg in place. MUSCULOSKELETAL: No obvious deformities. Extremities without clubbing, cyanosis , or edema. 2+ b/l pedal pulses. NEUROLOGICAL: Awake, eyes open to verbal stimulation. Nonverbal. Follows simple commands, wiggles toes and has 2/5 supervisor sound technician strength on command. Procedures s/p endovascular coiling of MCA ruptured cerebral aneurysm 04/11/16 s/p tracheostomy on 04/29/2016 Dental extractions Medications and IVs Current Medications Medications (Trade) Dose Ordered Sig/Zhanna Route Start Time Stop Time Status Last Admin (NS Flush) 2 ml UNSCH PRN IVF 04/11/16 13:30 (NS Flush) 2 ml BID IVF 04/11/16 21:00 08/03/16 08:43 (Zofran Inj) 4 mg Q6H PRN IV 04/11/16 13:30 05/20/16 04:01 (Lovenox Inj) 40 mg Q24H SQ 05/13/16 09:00 08/03/16 08:42 (Apresoline) 75 mg Q8HR TUBE 05/18/16 22:00 08/02/16 05:31 (Apresoline Inj) 10 mg Q6H PRN IV 07/13/16 21:45 ([place] 5-325 Mg) 1 tab Q6H PRN TUBE 07/15/16 16:15 08/01/16 05:08 ([place] 5-325 Mg) 2 tab Q6H PRN TUBE 07/15/16 16:15 08/03/16 08:43 (Tylenol 650 Mg/ 20 ml Liq) 650 mg Q4H PRN TUBE 07/15/16 12:30 (Norvasc) 10 mg DAILY TUBE 07/16/16 09:00 08/03/16 08:43 (Catapres) 0.1 mg Q6H PRN TUBE 07/15/16 16:00 (Trandate) 300 mg Q8HR TUBE 07/15/16 14:00 08/02/16 05:31 (SEROquel) 25 mg BID TUBE 07/15/16 21:00 08/03/16 08:43 (Zantac Liq) 150 mg Q12HR TUBE 07/15/16 21:00 08/03/16 08:42 (Xanax) 0.25 mg Q8H PRN PO 07/23/16 15:45 08/03/16 05:09 (Peridex 0.12% Liq) 30 ml BID OTHER 07/27/16 21:00 08/02/16 21:40 Urinary Catheter: No Vascular Central Line Catheter: No 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 ICD Code: I60.12 Status: Acute (2) Cerebral aneurysm rupture ICD Code: I60.9 Status: Acute (3) Hypertension ICD Code: I10 Status: Chronic (4) Encephalopathy ICD Code: G93.40 Status: Chronic (5) Malnutrition ICD Code: E46 Status: Acute (6) Sequelae of nontraumatic intracerebral hemorrhage ICD Code: I69.10 Status: Chronic (7) 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 s/p Dr. Meléndez performed left decompressive craniotomy 04/25 with evacuation of temporal hematoma. SOCIAL MEDIA MARKETING ANALYST shunt placed 05/07. S/p bone flap on 05/22. The patient has had some improvement and does follow some commands. -Malignant Hypertension (Hypertensive emergency) on admission -- s/p 3 weeks of Nimotop therapy for vasospasm prevention. in SAH patient. now targeting SBP < 160. Continue Norvasc 10 q day, HCTZ 25 mg daily , labetalol 300 mg PO TID, hydralazine 75 mg q8. Hold parameters. Blood pressure stable. No change in management. 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 Not a candidate for surgical intervention due to recent devastating neuro injury -Acute respiratory failure (now chronic resp failure) secondary to SAH / ICH. s/ p tracheostomy 04/29. Cristino TP 23/03. Continue DuoNeb q 4 hours as needed -Macroglossia. Tongue edema again secondary to lower teeth biting with remaining upper teeth. S/P extraction of teeth to help reduce tongue edema by Dr Booth. Now with ecchymotic area and intermittent bleeding. Per OMFS, wd care and monitor -Chronic mild Transaminitis. CT of the abdomen shows normal liver. Repeat LFTs stable negative hepatitis profile -Mild protein calorie malnutrition - s/p PEG 04/28. Tolerating tube feeds (Jevity ) at goal of 50 cc/hr (-25-30 kcal/kg/day) -Anemia of chronic inflammation / disease. Hgb stable with no signs of active bleeding -Sepsis secondary to pneumonia and prior UTI - resolved, now off all abx. -Hyperkalemia-continue hydrochlorothiazide, resolved with Lasix. -GI Prophylaxis: oral Zantac q 12. -DVT Prophylaxis - SCDs; Lovenox 40 q day -Rehab: PT / OT. Will eventually need LTACH / SNF Discharge Planning Discharge to rehab when arranged, currently no accepting facility. Letty Gore PA-C Aug 03, 2016 14:09 Michael Howard MD Aug 03, 2016 17:00
[2016-08-04] VITALS (8 sets, daily range): BP systolic 104–139; BP diastolic 60–88; PULSE 77–99; RESP 16–20; TEMP 95.6–98.7; O2SAT 96–100
[2016-08-04] MEDS: ALPRAZolam 0.25 MG TAB PO PRN ×2 (04:21→16:38)
[2016-08-04] MEDS: LABETALOL HCL 300 MG TAB TUBE SCH ×3 (05:56→20:56)
[2016-08-04] MEDS: hydrALAZINE HCL 25 MG TAB TUBE SCH ×3 (05:56→20:56)
[2016-08-04] MEDS: RANITIDINE HCL SYRUP 150 MG/10 ML UDC TUBE SCH ×2 (08:00→20:55)
[2016-08-04] MEDS: ENOXAPARIN SODIUM 40 MG/0.4 ML SYRINGE SQ SCH (08:01)
[2016-08-04] MEDS: QUEtiapine FUMARATE 25 MG TAB TUBE SCH ×2 (08:02→20:56)
[2016-08-04] MEDS: CHLORHEXIDINE GLUCONATE 0.12% 30 ML CUP OTHER SCH ×2 (08:02→20:54)
[2016-08-04] MEDS: SODIUM CHLORIDE 0.9% FLUSH 5 ML FLUSH IVF SCH ×2 (08:03→20:56)
--- NOTE | 2016-08-04 13:14 | HHI.PR ---
Subjective Remarks Follow up for SAH, neurological injury, tongue trauma. Seen with daughter at bedside, asking when trach can be removed, explained unlikely secondary to tongue edema. Discussed with RN, no acute events overnight, no concerns. Suture removed yesterday. Vital signs reviewed, stable. Objective Vitals Vital Signs Date Time Temp Pulse Resp B/P Pulse Ox O2 Delivery O2 Flow Rate FiO2 08/04/16 12:46 95.6 99 18 115/74 100 08/04/16 08:42 96.9 80 20 112/60 98 08/04/16 08:41 96 T-piece 21.00 08/04/16 08:29 T-Piece 6.00 28 08/04/16 06:30 98.0 80 19 139/88 99 08/04/16 00:45 97.0 80 19 110/67 98 08/03/16 22:08 98 T-piece 21.00 08/03/16 21:00 T-Piece 6.00 28 08/03/16 20:45 97.7 81 18 115/72 98 08/03/16 16:00 97.8 72 20 108/73 97 I/O 08/03/16 08/03/16 08/03/16 08/04/16 08/04/16 08/04/16 06:59 14:59 22:59 06:59 14:59 22:59 Intake Total 443 ml 0 ml 820 ml Balance 443 ml 0 ml 820 ml Intake Oral 0 ml 0 ml 0 ml Tube Feeding 443 ml 720 ml Tube Irrigant 100 ml # Voids 7 4 4 4 # Bowel Movements 0 0 1 Objective Remarks GENERAL: Well-nourished, well-developed patient in NAD. SKIN: Warm and dry. No rash. HEAD: Normocephalic. Atraumatic. EYES: Pupils equal and round. No scleral icterus. No injection or drainage. ENT: Swollen and protruding tongue, s/p laceration repair, small ecchymotic areas; no active bleeding. S/p dental extractions. NECK: Tracheostomy in place. CARDIOVASCULAR: Regular rate and rhythm. S1, S2 noted. 5/6 systolic murmur noted. RESPIRATORY: No accessory muscle use. Clear to auscultation. Breath sounds equal bilaterally. GASTROINTESTINAL: Abdomen soft, non-tender, nondistended. Normoactive bowel sounds x4. Peg in place. MUSCULOSKELETAL: No obvious deformities. Extremities without clubbing, cyanosis , or edema. 2+ b/l pedal pulses. B/l upper and lower extremities in loose restraints. NEUROLOGICAL: Awake, eyes open to verbal stimulation. Nonverbal. Follows simple commands, wiggles toes and has 2/5 machine try out setter strength on command. Procedures s/p endovascular coiling of MCA ruptured cerebral aneurysm 04/11/16 s/p tracheostomy on 04/29/2016 Dental extractions Medications and IVs Current Medications Medications (Trade) Dose Ordered Sig/Zhanna Route Start Time Stop Time Status Last Admin (NS Flush) 2 ml UNSCH PRN IVF 04/11/16 13:30 (NS Flush) 2 ml BID IVF 04/11/16 21:00 08/04/16 08:03 (Zofran Inj) 4 mg Q6H PRN IV 04/11/16 13:30 05/20/16 04:01 (Lovenox Inj) 40 mg Q24H SQ 05/13/16 09:00 08/04/16 08:01 (Apresoline) 75 mg Q8HR TUBE 05/18/16 22:00 08/04/16 05:56 (Apresoline Inj) 10 mg Q6H PRN IV 07/13/16 21:45 ([place] 5-325 Mg) 1 tab Q6H PRN TUBE 07/15/16 16:15 08/01/16 05:08 ([place] 5-325 Mg) 2 tab Q6H PRN TUBE 07/15/16 16:15 08/03/16 14:57 (Tylenol 650 Mg/ 20 ml Liq) 650 mg Q4H PRN TUBE 07/15/16 12:30 (Norvasc) 10 mg DAILY TUBE 07/16/16 09:00 08/04/16 08:02 (Catapres) 0.1 mg Q6H PRN TUBE 07/15/16 16:00 (Trandate) 300 mg Q8HR TUBE 07/15/16 14:00 08/04/16 05:56 (SEROquel) 25 mg BID TUBE 07/15/16 21:00 08/04/16 08:02 (Zantac Liq) 150 mg Q12HR TUBE 07/15/16 21:00 08/04/16 08:00 (Xanax) 0.25 mg Q8H PRN PO 07/23/16 15:45 08/04/16 04:21 (Peridex 0.12% Liq) 30 ml BID OTHER 07/27/16 21:00 08/04/16 08:02 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 ICD Code: I60.12 Status: Acute (2) Cerebral aneurysm rupture ICD Code: I60.9 Status: Acute (3) Hypertension ICD Code: I10 Status: Chronic (4) Encephalopathy ICD Code: G93.40 Status: Chronic (5) Malnutrition ICD Code: E46 Status: Acute (6) Sequelae of nontraumatic intracerebral hemorrhage ICD Code: I69.10 Status: Chronic (7) 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 s/p Dr. Meléndez performed left decompressive craniotomy 04/25 with evacuation of temporal hematoma. NISSAN SALES CONSULTANT shunt placed 05/07. S/p bone flap on 05/22. The patient has had some improvement and does follow some commands. -Malignant Hypertension (Hypertensive emergency) on admission -- s/p 3 weeks of Nimotop therapy for vasospasm prevention. in SAH patient. now targeting SBP < 160. Continue Norvasc 10 q day, HCTZ 25 mg daily , labetalol 300 mg PO TID, hydralazine 75 mg q8. Hold parameters. Blood pressure stable. No change in management. 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 Not a candidate for surgical intervention due to recent devastating neuro injury -Acute respiratory failure (now chronic resp failure) secondary to SAH / ICH. s/ p tracheostomy 04/29. Cristino TP 23/03. Continue DuoNeb q 4 hours as needed -Macroglossia. Tongue edema again secondary to lower teeth biting with remaining upper teeth. S/P extraction of teeth to help reduce tongue edema by Dr Booth. Now with ecchymotic area and intermittent bleeding. Per OMFS, wd care and monitor -Chronic mild Transaminitis. CT of the abdomen shows normal liver. Repeat LFTs stable negative hepatitis profile -Mild protein calorie malnutrition - s/p PEG 04/28. Tolerating tube feeds (Jevity ) at goal of 50 cc/hr (-25-30 kcal/kg/day) -Anemia of chronic inflammation / disease. Hgb stable with no signs of active bleeding -Sepsis secondary to pneumonia and prior UTI - resolved, now off all abx. -Hyperkalemia-continue hydrochlorothiazide, resolved with Lasix. -GI Prophylaxis: oral Zantac q 12. -DVT Prophylaxis - SCDs; Lovenox 40 q day -Rehab: PT / OT. Will eventually need LTACH / SNF Discharge Planning Discharge to rehab when arranged, currently no accepting facility. Discussed with RN and Letty Zuniga PA-C Aug 04, 2016 13:14 Michael Howard MD Aug 04, 2016 18:50
[2016-08-04] MEDS: ACETAMINOPHEN/HYDROcodone 325 MG/5 MG TAB TUBE PRN (20:55)
[2016-08-05] VITALS (7 sets, daily range): BP systolic 104–138; BP diastolic 66–97; PULSE 74–87; RESP 14–20; TEMP 97.5–98.9; O2SAT 90–100
[2016-08-05] MEDS: ALPRAZolam 0.25 MG TAB PO PRN ×2 (03:46→22:56)
[2016-08-05] MEDS: LABETALOL HCL 300 MG TAB TUBE SCH ×3 (05:36→22:37)
[2016-08-05] MEDS: hydrALAZINE HCL 25 MG TAB TUBE SCH ×3 (05:36→22:40)
[2016-08-05] MEDS: QUEtiapine FUMARATE 25 MG TAB TUBE SCH ×2 (08:58→22:37)
[2016-08-05] MEDS: ACETAMINOPHEN/HYDROcodone 325 MG/5 MG TAB TUBE PRN (08:59)
[2016-08-05] MEDS: RANITIDINE HCL SYRUP 150 MG/10 ML UDC TUBE SCH ×2 (08:59→22:38)
[2016-08-05] MEDS: CHLORHEXIDINE GLUCONATE 0.12% 30 ML CUP OTHER SCH ×2 (08:59→22:38)
[2016-08-05] MEDS: SODIUM CHLORIDE 0.9% FLUSH 5 ML FLUSH IVF SCH ×2 (09:00→21:00)
[2016-08-05] MEDS: ENOXAPARIN SODIUM 40 MG/0.4 ML SYRINGE SQ SCH (09:00)
--- NOTE | 2016-08-05 17:40 | HHI.PR ---
Subjective Remarks Follow up for SAH, neurological injury, tongue trauma. The patient is awake, alert. RN reports the patient was acutely agitated this morning, slipped out of restraints, was pulling on her tongue, required reinforcement of restraints then patient calmed down. Upon my evaluation, she is calm and appropriate. Denies any medical complaints, mouths yes and no easily to questions. When I told her that I met her daughter and that she is beautiful, the patient mouths "yes she is" with a smile on her face. Still difficult to understand due to tongue edema. Otherwise no acute concerns. Vital signs reviewed and stable. Objective Vitals Vital Signs Date Time Temp Pulse Resp B/P Pulse Ox O2 Delivery O2 Flow Rate FiO2 08/05/16 17:08 97.5 77 20 138/84 96 08/05/16 14:25 100 T-piece 21 08/05/16 12:34 97.5 84 18 132/84 100 08/05/16 09:16 T-Piece 6.00 28 08/05/16 08:21 97.7 84 18 110/71 96 08/05/16 04:00 98.7 77 16 104/66 96 08/05/16 00:00 98.9 87 14 110/70 90 08/04/16 22:53 96 T-piece 6.00 21 08/04/16 21:00 T-Piece 28 08/04/16 20:00 98.7 77 16 104/66 96 I/O 08/04/16 08/04/16 08/04/16 08/05/16 08/05/16 08/05/16 07:00 15:00 23:00 07:00 15:00 23:00 Intake Total 820 ml 820 ml Balance 820 ml 820 ml Intake Oral 0 ml Tube Feeding 720 ml 720 ml Tube Irrigant 100 ml 100 ml # Voids 4 4 2 3 # Bowel Movements 1 # Sanitary Pads 1 Pads Objective Remarks GENERAL: Well-nourished, well-developed patient in NAD. SKIN: Warm and dry. No rash. HEAD: Normocephalic. Atraumatic. EYES: Pupils equal and round. No scleral icterus. No injection or drainage. ENT: Swollen and protruding tongue, s/p laceration repair, small ecchymotic areas; no active bleeding; mildly improved. S/p dental extractions. NECK: Tracheostomy in place. CARDIOVASCULAR: Regular rate and rhythm. S1, S2 noted. 5/6 systolic murmur noted. RESPIRATORY: No accessory muscle use. Clear to auscultation. Breath sounds equal bilaterally. GASTROINTESTINAL: Abdomen soft, non-tender, nondistended. Normoactive bowel sounds x4. Peg in place. MUSCULOSKELETAL: No obvious deformities. Extremities without clubbing, cyanosis , or edema. 2+ b/l pedal pulses. B/l upper and lower extremities in loose restraints. NEUROLOGICAL: Awake, alert. Nonverbal secondary to tongue edema and tracheostomy however does answer questions by nodding or mouthing the answers, still difficult to understand. Follows simple commands, wiggles toes and has 3/ 5 travel specialist strength on command. Procedures s/p endovascular coiling of MCA ruptured cerebral aneurysm 04/11/16 s/p tracheostomy on 04/29/2016 Dental extractions Medications and IVs Current Medications Medications (Trade) Dose Ordered Sig/Zhanna Route Start Time Stop Time Status Last Admin (NS Flush) 2 ml UNSCH PRN IVF 04/11/16 13:30 (NS Flush) 2 ml BID IVF 04/11/16 21:00 08/04/16 20:56 (Zofran Inj) 4 mg Q6H PRN IV 04/11/16 13:30 05/20/16 04:01 (Lovenox Inj) 40 mg Q24H SQ 05/13/16 09:00 08/05/16 09:00 (Apresoline) 75 mg Q8HR TUBE 05/18/16 22:00 08/05/16 15:00 (Apresoline Inj) 10 mg Q6H PRN IV 07/13/16 21:45 ([place] 5-325 Mg) 1 tab Q6H PRN TUBE 07/15/16 16:15 08/05/16 08:59 ([place] 5-325 Mg) 2 tab Q6H PRN TUBE 07/15/16 16:15 08/04/16 20:55 (Tylenol 650 Mg/ 20 ml Liq) 650 mg Q4H PRN TUBE 07/15/16 12:30 (Norvasc) 10 mg DAILY TUBE 07/16/16 09:00 08/05/16 08:59 (Catapres) 0.1 mg Q6H PRN TUBE 07/15/16 16:00 (Trandate) 300 mg Q8HR TUBE 07/15/16 14:00 08/05/16 15:00 (SEROquel) 25 mg BID TUBE 07/15/16 21:00 08/05/16 08:58 (Zantac Liq) 150 mg Q12HR TUBE 07/15/16 21:00 08/05/16 08:59 (Xanax) 0.25 mg Q8H PRN PO 07/23/16 15:45 08/05/16 03:46 (Peridex 0.12% Liq) 30 ml BID OTHER 07/27/16 21:00 08/05/16 08:59 Urinary Catheter: No Vascular Central Line Catheter: No 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 ICD Code: I60.12 Status: Acute (2) Cerebral aneurysm rupture ICD Code: I60.9 Status: Acute (3) Hypertension ICD Code: I10 Status: Chronic (4) Encephalopathy ICD Code: G93.40 Status: Chronic (5) Malnutrition ICD Code: E46 Status: Acute (6) Sequelae of nontraumatic intracerebral hemorrhage ICD Code: I69.10 Status: Chronic (7) 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 s/p Dr. Meléndez performed left decompressive craniotomy 04/25 with evacuation of temporal hematoma. HAND CANDY CUTTER shunt placed 05/07. S/p bone flap on 05/22. The patient has had some improvement and does follow commands. -Malignant Hypertension (Hypertensive emergency) on admission -- s/p 3 weeks of Nimotop therapy for vasospasm prevention. in SAH patient. now targeting SBP < 160. Continue Norvasc 10 q day, HCTZ 25 mg daily , labetalol 300 mg PO TID, hydralazine 75 mg q8. Hold parameters. Blood pressure stable. No change in management. 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 Not a candidate for surgical intervention due to recent devastating neuro injury -Acute respiratory failure (now chronic resp failure) secondary to SAH / ICH. s/ p tracheostomy 04/29. Continue DuoNeb q 4 hours as needed -Macroglossia. Tongue edema again secondary to lower teeth biting with remaining upper teeth. S/P extraction of teeth to help reduce tongue edema by Dr Booth. Now with ecchymotic area and intermittent bleeding. Per OMFS, wd care and monitor -Chronic mild Transaminitis. CT of the abdomen shows normal liver. Repeat LFTs stable negative hepatitis profile -Mild protein calorie malnutrition - s/p PEG 04/28. Tolerating tube feeds (Jevity ) at goal of 50 cc/hr (-25-30 kcal/kg/day) -Anemia of chronic inflammation / disease. Hgb stable with no signs of active bleeding -Sepsis secondary to pneumonia and prior UTI - resolved, now off all abx. -Hyperkalemia-continue hydrochlorothiazide, resolved with Lasix. -GI Prophylaxis: oral Zantac q 12. -DVT Prophylaxis - SCDs; Lovenox 40 q day -Rehab: PT / OT. Will eventually need LTACH / SNF Discharge Planning Discharge to rehab when arranged, currently no accepting facility. Discussed with RN and . Letty Mcqueen PA-C Aug 05, 2016 17:40 Michael Howard MD Aug 05, 2016 21:00
[2016-08-06] VITALS (7 sets, daily range): BP systolic 96–124; BP diastolic 65–79; PULSE 77–83; RESP 12–18; TEMP 96.8–98.8; O2SAT 97–100
[2016-08-06] MEDS: LABETALOL HCL 300 MG TAB TUBE SCH ×3 (05:59→23:41)
[2016-08-06] MEDS: hydrALAZINE HCL 25 MG TAB TUBE SCH ×3 (05:59→22:00)
[2016-08-06] MEDS: CHLORHEXIDINE GLUCONATE 0.12% 30 ML CUP OTHER SCH ×2 (07:46→23:40)
[2016-08-06] MEDS: QUEtiapine FUMARATE 25 MG TAB TUBE SCH ×2 (07:46→23:41)
[2016-08-06] MEDS: RANITIDINE HCL SYRUP 150 MG/10 ML UDC TUBE SCH ×2 (07:46→23:40)
[2016-08-06] MEDS: ALPRAZolam 0.25 MG TAB PO PRN ×2 (07:47→23:45)
[2016-08-06] MEDS: SODIUM CHLORIDE 0.9% FLUSH 5 ML FLUSH IVF SCH ×2 (07:47→23:37)
[2016-08-06] MEDS: ENOXAPARIN SODIUM 40 MG/0.4 ML SYRINGE SQ SCH (07:47)
--- NOTE | 2016-08-06 13:55 | HHI.PR ---
Subjective Remarks Follow-up for SAH encephalopathy. The patient is awake and alert, but not very talkative and does not communicate well. Per RN report, patient was more last night and this morning. RN states that Xanax reportedly helped a lot last night , and maybe a little bit as well this morning. No other issues reported. Objective Vitals Vital Signs Date Time Temp Pulse Resp B/P Pulse Ox O2 Delivery O2 Flow Rate FiO2 08/06/16 12:04 97.7 81 18 114/74 100 08/06/16 10:52 98 T-piece 5.00 21 08/06/16 08:04 97.1 79 18 108/67 100 08/06/16 08:03 T-Piece 6.00 28 08/06/16 04:00 96.8 77 12 124/79 100 08/06/16 00:00 98.8 78 12 104/65 97 08/05/16 20:00 97.8 74 14 123/97 98 08/05/16 19:00 T-Piece 6.00 28 08/05/16 17:56 T-piece 6.00 21 08/05/16 17:08 97.5 77 20 138/84 96 08/05/16 14:25 100 T-piece 21 I/O 08/05/16 08/05/16 08/05/16 08/06/16 08/06/16 08/06/16 07:00 15:00 23:00 07:00 15:00 23:00 Intake Total 820 ml 602 ml Balance 820 ml 602 ml Tube Feeding 720 ml 602 ml Tube Irrigant 100 ml # Voids 3 2 4 # Bowel Movements 1 1 Imaging Last Impressions Head CT 05/23/16599 Signed Impressions: Service Date/Time: Monday, May 23, 2016 04:48 - CONCLUSION: 1. The left craniotomy defect has been repaired. 2. Small blood and air in the left subdural space, up to 6 mm in maximal thickness. Subdural drain in place. 3. Evolving encephalomalacia of the left frontal and temporal lobes. 4. 2 mm of rightward midline shift. 5. Shunted. No ventriculomegaly. Fei Hughes MD Chest X-Ray 05/17/16 06 Signed Impressions: Service Date/Time: Tuesday, May 17, 2016 04:59 - CONCLUSION: 1. Minimal basilar atelectasis. Cardiomegaly. Quinn Bateman MD Skull X-Ray 05/08/16 0000 Signed Impressions: Service Date/Time: May 10:16 - CONCLUSION: Shunt set to 70-80 mm H2O. Fei Snyder MD Head CTA 05/02/16 0600 Signed Impressions: Service Date/Time: Monday, May 02, 2016 04:32 - CONCLUSION: Satisfactory appearance post aneurysm coiling Fei Snyder MD Abdomen/Pelvis CT 04/24/16 1416 Signed Impressions: Service Date/Time: March 14:39 - CONCLUSION: Mild small bowel ileus with scattered air-fluid levels. Bibasilar lung consolidation with associated small effusions. Significant soft tissue fluid accumulation with edematous changes throughout the abdominal wall. Nasogastric tube in good position. Saqib Garcia MD Neck CTA 04/11/16 1151 Signed Impressions: Service Date/Time: Monday, April 11, 2016 12:01 - CONCLUSION: Negative for hemodynamically significant carotid stenosis. Ricrado Castellanos MD FACR Cerebral Arteriogram 04/11/16 0000 Signed Impressions: Service Date/Time: Monday, April 11, 2016 14:18 - CONCLUSION: 1. 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 This is the aneurysm felt responsible for the intracranial hemorrhage. 2. Small 4 mm left M1 segment aneurysm. Attempts at embolizing this aneurysm were unsuccessful due to the broad based nature of the aneurysm. Endovascular repair of this aneurysm could not be performed. Kennedy Thibodeaux Jr., MD Objective Remarks GENERAL: Well-developed well-nourished. In no acute distress. Currently calm and in 4 point restraints. SKIN: Warm and dry. No lesions noted. HEENT: Normocephalic. Pupils equal and round. Swollen and protruding tongue. Edentulous. CARDIOVASCULAR: Regular rate and rhythm. 5/6 systolic murmur appreciated. RESPIRATORY: No accessory muscle use. Clear to auscultation. Breath sounds equal bilaterally. GASTROINTESTINAL: Abdomen soft, non-tender, nondistended. Bowel sounds x4. PEG in place. MUSCULOSKELETAL: No obvious deformities. No clubbing or cyanosis. No edema. NEUROLOGICAL: Awake and alert. Nonverbal. Doesn't really nod yes or no to questioning. Moves upper and lower extremities spontaneously. 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 s/p Dr. Meléndez performed left decompressive craniotomy 04/25 with evacuation of temporal hematoma. ELEVATING GRADER OPERATOR shunt placed 05/07. S/p bone flap on 05/22. The patient has had some improvement and does follow commands. -Malignant Hypertension (Hypertensive emergency) on admission -- s/p 3 weeks of Nimotop therapy for vasospasm prevention. in SAH patient. now targeting SBP < 160. Continue Norvasc 10 q day, HCTZ 25 mg daily , labetalol 300 mg PO TID, hydralazine 75 mg q8. Hold parameters. Blood pressure stable. No change in management. 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 Not a candidate for surgical intervention due to recent devastating neuro injury -Acute respiratory failure (now chronic resp failure) secondary to SAH / ICH. s/ p tracheostomy 04/29. Continue DuoNeb q 4 hours as needed -Macroglossia. Tongue edema again secondary to lower teeth biting with remaining upper teeth. S/P extraction of teeth to help reduce tongue edema by Dr Booth. Now with ecchymotic area and intermittent bleeding. Per OMFS, wound care and monitor -Chronic mild Transaminitis. CT of the abdomen shows normal liver. Repeat LFTs stable negative hepatitis profile -Mild protein calorie malnutrition - s/p PEG 04/28. Tolerating tube feeds (Jevity ) at goal of 50 cc/hr (-25-30 kcal/kg/day) -Anemia of chronic inflammation / disease. Hgb stable with no signs of active bleeding -Sepsis secondary to pneumonia and prior UTI - resolved, now off all abx. -Hyperkalemia-continue hydrochlorothiazide, resolved with Lasix. -Agitation-secondary to brain injury. Continue restraints as needed. Continue low-dose Xanax as needed. On Seroquel 25 mg twice daily, will increase nighttime Seroquel dose to 50 mg. -GI Prophylaxis: oral Zantac q 12. -DVT Prophylaxis - SCDs; Lovenox 40 q day -Rehab: PT / OT. Will eventually need LTACH / SNF David Tinoco Aug 06, 2016 13:55 Michale Howard MD Aug 06, 2016 14:25
[2016-08-06] MEDS: ACETAMINOPHEN/HYDROcodone 325 MG/5 MG TAB TUBE PRN (14:06)
[2016-08-07] VITALS (8 sets, daily range): BP systolic 94–137; BP diastolic 57–90; PULSE 68–94; RESP 16–22; TEMP 96.1–97.7; O2SAT 98–100
[2016-08-07] MEDS: LABETALOL HCL 300 MG TAB TUBE SCH ×3 (05:45→22:00)
[2016-08-07] MEDS: hydrALAZINE HCL 25 MG TAB TUBE SCH ×3 (05:45→22:00)
[2016-08-07] MEDS: SODIUM CHLORIDE 0.9% FLUSH 5 ML FLUSH IVF SCH ×2 (09:00→21:00)
[2016-08-07] MEDS: ENOXAPARIN SODIUM 40 MG/0.4 ML SYRINGE SQ SCH (10:01)
[2016-08-07] MEDS: ALPRAZolam 0.25 MG TAB PO PRN (10:01)
[2016-08-07] MEDS: CHLORHEXIDINE GLUCONATE 0.12% 30 ML CUP OTHER SCH ×2 (10:02→22:26)
[2016-08-07] MEDS: QUEtiapine FUMARATE 25 MG TAB TUBE SCH ×2 (10:02→22:27)
[2016-08-07] MEDS: ACETAMINOPHEN/HYDROcodone 325 MG/5 MG TAB TUBE PRN (10:02)
[2016-08-07] MEDS: RANITIDINE HCL SYRUP 150 MG/10 ML UDC TUBE SCH ×2 (10:03→22:27)
--- NOTE | 2016-08-07 11:54 | HHI.PR ---
Subjective Remarks Follow-up for SAH and encephalopathy. Discussed with RN, no acute issues reported overnight. The patient did receive some Xanax and Lortab prior to my evaluation and was a bit somnolent. Objective Vitals Vital Signs Date Time Temp Pulse Resp B/P Pulse Ox O2 Delivery O2 Flow Rate FiO2 08/07/16 08:03 96.4 78 20 122/90 99 08/07/16 04:00 96.7 74 18 137/83 99 08/07/16 00:17 97.7 84 18 112/73 99 08/06/16 21:05 T-Piece 6.00 28 08/06/16 20:30 98.7 83 17 121/77 100 08/06/16 16:04 97.2 78 16 96/72 98 08/06/16 12:04 97.7 81 18 114/74 100 I/O 08/06/16 08/06/16 08/06/16 08/07/16 08/07/16 08/07/16 07:00 15:00 23:00 07:00 15:00 23:00 # Voids 4 3 1 0 # Bowel Movements 1 0 0 0 Objective Remarks GENERAL: Well-developed well-nourished. In no acute distress. Currently calm and in 4 point restraints. SKIN: Warm and dry. No lesions noted. HEENT: Normocephalic. Pupils equal and round. Swollen and protruding tongue with right lateral scab present. Edentulous. CARDIOVASCULAR: Regular rate and rhythm. 5/6 systolic murmur appreciated. RESPIRATORY: No accessory muscle use. Clear to auscultation. Breath sounds equal bilaterally. GASTROINTESTINAL: Abdomen soft, non-tender, nondistended. Bowel sounds x4. PEG in place. MUSCULOSKELETAL: No obvious deformities. No clubbing or cyanosis. No edema. NEUROLOGICAL: Somnolent today. Nonverbal. Moves upper and lower extremities spontaneously. 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 s/p Dr. Meléndez performed left decompressive craniotomy 04/25 with evacuation of temporal hematoma. PROCESS IMPROVEMENT ANALYST shunt placed 05/07. S/p bone flap on 05/22. The patient has had some improvement and does follow some commands. -Malignant Hypertension (Hypertensive emergency) on admission -- s/p 3 weeks of Nimotop therapy for vasospasm prevention. in SAH patient. now targeting SBP < 160. Continue Norvasc 10 q day, HCTZ 25 mg daily , labetalol 300 mg PO TID, hydralazine 75 mg q8. Hold parameters. Blood pressure stable. No change in management. 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 Not a candidate for surgical intervention due to recent devastating neuro injury -Acute respiratory failure (now chronic resp failure) secondary to SAH / ICH. s/ p tracheostomy 04/29. Continue DuoNeb q 4 hours as needed -Macroglossia. Tongue edema again secondary to lower teeth biting with remaining upper teeth. S/P extraction of teeth to help reduce tongue edema by Dr Booth. Now with ecchymotic area. Per OMFS, wound care and monitor. -Chronic mild Transaminitis. CT of the abdomen shows normal liver. Repeat LFTs stable and negative hepatitis profile -Mild protein calorie malnutrition - s/p PEG 04/28. Tolerating tube feeds (Jevity ) at goal of 50 cc/hr (-25-30 kcal/kg/day) -Anemia of chronic inflammation / disease. Hgb stable with no signs of active bleeding -Sepsis secondary to pneumonia and prior UTI - resolved, now off all abx. -Hyperkalemia-continue hydrochlorothiazide, resolved with Lasix. -Agitation-secondary to brain injury. Continue restraints as needed. Continue low-dose Xanax as needed. On Seroquel 25 mg twice daily, increased nighttime Seroquel dose to 50 mg. caution with multiple sedating medications, hold parameters placed on Xanax and Lortab. -GI Prophylaxis: oral Zantac q 12. -DVT Prophylaxis - SCDs; Lovenox 40 q day -Rehab: PT / OT. Will eventually need LTACH / SNF David Tinoco Aug 07, 2016 11:54 Michael Howard MD Aug 07, 2016 15:52
[2016-08-08] VITALS (8 sets, daily range): BP systolic 108–119; BP diastolic 56–73; PULSE 79–101; RESP 16–22; TEMP 98–99.6; O2SAT 96–98
[2016-08-08] MEDS: hydrALAZINE HCL 25 MG TAB TUBE SCH ×3 (05:18→22:00)
[2016-08-08] MEDS: LABETALOL HCL 300 MG TAB TUBE SCH ×3 (05:18→22:00)
[2016-08-08] MEDS: SODIUM CHLORIDE 0.9% FLUSH 5 ML FLUSH IVF SCH ×2 (09:00→21:00)
[2016-08-08] MEDS: ENOXAPARIN SODIUM 40 MG/0.4 ML SYRINGE SQ SCH (10:00)
[2016-08-08] MEDS: RANITIDINE HCL SYRUP 150 MG/10 ML UDC TUBE SCH ×2 (10:01→21:00)
[2016-08-08] MEDS: CHLORHEXIDINE GLUCONATE 0.12% 30 ML CUP OTHER SCH ×2 (10:01→21:00)
[2016-08-08] MEDS: QUEtiapine FUMARATE 25 MG TAB TUBE SCH ×2 (10:01→21:00)
--- NOTE | 2016-08-08 15:45 | HHI.PR ---
Subjective Remarks Follow-up for SAH and encephalopathy. No acute events overnight. Patient awake, alert, follows commands. She has no complaints. Vital signs reviewed, stable. Objective Vitals Vital Signs Date Time Temp Pulse Resp B/P Pulse Ox O2 Delivery O2 Flow Rate FiO2 08/08/16 12:00 99.4 101 16 113/66 98 08/08/16 08:45 98 T-piece 21 08/08/16 08:23 98.0 94 17 119/73 97 08/08/16 07:00 T-Piece 6.00 28 08/08/16 04:00 99.6 90 22 108/57 98 08/08/16 00:00 99.5 85 22 108/68 96 08/07/16 23:30 T-Piece 08/07/16 20:00 97.4 94 22 121/66 98 08/07/16 16:05 96.1 74 16 94/57 99 I/O 08/07/16 08/07/16 08/07/16 08/08/16 08/08/16 08/08/16 07:00 15:00 23:00 07:00 15:00 23:00 Intake Total 1226 ml Output Total 2 ml Balance 1224 ml Tube Feeding 1026 ml Tube Irrigant 200 ml Output Urine Total 2 ml # Voids 0 3 # Bowel Movements 0 0 1 Objective Remarks GENERAL: Well-nourished, well-developed middle aged female patient in [facility]. SKIN: Warm and dry. No rash. HEAD: Normocephalic. Atraumatic. EYES: Pupils equal and round. No scleral icterus. No injection or drainage. ENT: Swollen and protruding tongue, s/p laceration repair, small ecchymotic areas and scab at right lateral tongue; no active bleeding; improving. S/p dental extractions. NECK: Tracheostomy in place. CARDIOVASCULAR: Regular rate and rhythm. S1, S2 noted. 5/6 systolic murmur noted. RESPIRATORY: No accessory muscle use. Clear to auscultation. Breath sounds equal bilaterally. GASTROINTESTINAL: Abdomen soft, non-tender, nondistended. Normoactive bowel sounds x4. Peg in place. MUSCULOSKELETAL: No obvious deformities. Extremities without clubbing, cyanosis , or edema. 2+ b/l pedal pulses. B/l upper and lower extremities in loose restraints. NEUROLOGICAL: Awake, alert. Nonverbal secondary to tongue edema and tracheostomy however does answer questions by nodding or mouthing the answers, still difficult to understand. Follows simple commands, wiggles toes and has 3/ 5 tender coordinator strength on command. Procedures s/p endovascular coiling of MCA ruptured cerebral aneurysm 04/11/16 s/p tracheostomy on 04/29/2016 Dental extractions Medications and IVs Current Medications Medications (Trade) Dose Ordered Sig/Zhanna Route Start Time Stop Time Status Last Admin (NS Flush) 2 ml UNSCH PRN IVF 04/11/16 13:30 (NS Flush) 2 ml BID IVF 04/11/16 21:00 08/08/16 09:00 (Zofran Inj) 4 mg Q6H PRN IV 04/11/16 13:30 05/20/16 04:01 (Lovenox Inj) 40 mg Q24H SQ 05/13/16 09:00 08/08/16 10:00 (Apresoline) 75 mg Q8HR TUBE 05/18/16 22:00 08/07/16 15:05 (Apresoline Inj) 10 mg Q6H PRN IV 07/13/16 21:45 ([place] 5-325 Mg) 2 tab Q6H PRN TUBE 07/15/16 16:15 08/04/16 20:55 (Tylenol 650 Mg/ 20 ml Liq) 650 mg Q4H PRN TUBE 07/15/16 12:30 (Norvasc) 10 mg DAILY TUBE 07/16/16 09:00 08/08/16 10:01 (Catapres) 0.1 mg Q6H PRN TUBE 07/15/16 16:00 (Trandate) 300 mg Q8HR TUBE 07/15/16 14:00 08/07/16 22:00 (Zantac Liq) 150 mg Q12HR TUBE 07/15/16 21:00 08/08/16 10:01 (Xanax) 0.25 mg Q8H PRN PO 07/23/16 15:45 08/07/16 10:01 (Peridex 0.12% Liq) 30 ml BID OTHER 07/27/16 21:00 08/08/16 10:01 (SEROquel) 50 mg HS TUBE 08/06/16 21:00 08/07/16 22:27 (SEROquel) 25 mg DAILY TUBE 08/07/16 09:00 08/08/16 10:01 ([place] 5-325 Mg) 1 tab Q6H PRN TUBE 08/07/16 16:15 Urinary Catheter: No Vascular Central Line Catheter: No 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 ICD Code: I60.12 Status: Acute (2) Cerebral aneurysm rupture ICD Code: I60.9 Status: Acute (3) Hypertension ICD Code: I10 Status: Chronic (4) Encephalopathy ICD Code: G93.40 Status: Chronic (5) Malnutrition ICD Code: E46 Status: Acute (6) Sequelae of nontraumatic intracerebral hemorrhage ICD Code: I69.10 Status: Chronic (7) 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 s/p Dr. Meléndez performed left decompressive craniotomy 04/25 with evacuation of temporal hematoma. FLY WINDER shunt placed 05/07. S/p bone flap on 05/22. The patient has had some improvement and does follow some commands. -Malignant Hypertension (Hypertensive emergency) on admission -- s/p 3 weeks of Nimotop therapy for vasospasm prevention. in SAH patient. now targeting SBP < 160. Continue Norvasc 10 q day, HCTZ 25 mg daily , labetalol 300 mg PO TID, hydralazine 75 mg q8. Hold parameters. Blood pressure stable. No change in management. 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 Not a candidate for surgical intervention due to recent devastating neuro injury -Acute respiratory failure (now chronic resp failure) secondary to SAH / ICH. s/ p tracheostomy 04/29. Continue DuoNeb q 4 hours as needed -Macroglossia. Tongue edema again secondary to lower teeth biting with remaining upper teeth. S/P extraction of teeth to help reduce tongue edema by Dr Booth. Per OMFS, wound care and monitor. -Chronic mild Transaminitis. CT of the abdomen shows normal liver. Repeat LFTs stable and negative hepatitis profile. -Mild protein calorie malnutrition - s/p PEG 04/28. Tolerating tube feeds (Jevity ) at goal of 50 cc/hr (-25-30 kcal/kg/day) -Anemia of chronic inflammation / disease. Hgb stable with no signs of active bleeding -Sepsis secondary to pneumonia and prior UTI - resolved, now off all abx. -Hyperkalemia-continue hydrochlorothiazide, resolved with Lasix. -Agitation-secondary to brain injury. Continue restraints as needed. Continue low-dose Xanax as needed. On Seroquel 25 mg twice daily, increased nighttime Seroquel dose to 50 mg. Caution with multiple sedating medications, hold parameters placed on Xanax and Lortab. -GI Prophylaxis: oral Zantac q 12. -DVT Prophylaxis - SCDs; Lovenox 40 q day -Rehab: PT / OT. Will eventually need LTACH / SNF Discharge Planning Discharge to rehab when arranged, currently no accepting facility. Discussed with Letty Zuniga PA-C Aug 08, 2016 15:45
[2016-08-09] VITALS (8 sets, daily range): BP systolic 111–144; BP diastolic 67–83; PULSE 75–94; RESP 18–20; TEMP 95.5–97.5; O2SAT 93–98
[2016-08-09] MEDS: LABETALOL HCL 300 MG TAB TUBE SCH ×3 (06:00→21:45)
[2016-08-09] MEDS: hydrALAZINE HCL 25 MG TAB TUBE SCH ×3 (06:52→21:45)
[2016-08-09] MEDS: QUEtiapine FUMARATE 25 MG TAB TUBE SCH ×2 (09:03→21:45)
[2016-08-09] MEDS: CHLORHEXIDINE GLUCONATE 0.12% 30 ML CUP OTHER SCH ×2 (09:03→21:45)
[2016-08-09] MEDS: ENOXAPARIN SODIUM 40 MG/0.4 ML SYRINGE SQ SCH (09:03)
[2016-08-09] MEDS: RANITIDINE HCL SYRUP 150 MG/10 ML UDC TUBE SCH ×2 (09:03→21:45)
[2016-08-09] MEDS: SODIUM CHLORIDE 0.9% FLUSH 5 ML FLUSH IVF SCH ×2 (09:04→21:46)
--- NOTE | 2016-08-09 13:31 | HHI.PR ---
Subjective Remarks Follow up for SAH, encephalopathy, tongue edema. Patient seen with nephew at bedside, she is being cooperative without upper extremity restraints. She is awake, alert, following commands. She has no medical complaints, gives a thumbs up, smiling. Discussed with family reasoning on why trach cannot be removed at this time due to tongue edema, they verbalized understanding. Family believes tongue edema significantly improving. Objective Vitals Vital Signs Date Time Temp Pulse Resp B/P Pulse Ox O2 Delivery O2 Flow Rate FiO2 08/09/16 13:01 97.1 75 18 120/75 98 08/09/16 09:04 98 T-piece 5.00 21 08/09/16 08:26 97.1 76 19 123/73 95 08/09/16 08:00 T-Piece 6.00 28 08/09/16 04:00 97.5 94 18 144/83 97 08/09/16 03:05 T-Piece 08/09/16 01:00 97.3 85 20 122/67 97 08/08/16 20:00 98.7 79 18 118/56 96 08/08/16 18:25 97 T-piece 21 08/08/16 16:00 98.9 92 17 110/73 97 I/O 08/08/16 08/08/16 08/08/16 08/09/16 08/09/16 08/09/16 07:00 15:00 23:00 07:00 15:00 23:00 Intake Total 1226 ml 1200 ml Output Total 2 ml Balance 1224 ml 1200 ml Tube Feeding 1026 ml 1000 ml Tube Irrigant 200 ml 200 ml Output Urine Total 2 ml # Voids 4 4 # Bowel Movements 1 1 2 Objective Remarks GENERAL: Well-nourished, well-developed middle aged female patient in [facility]. SKIN: Warm and dry. No rash. HEAD: Normocephalic. Atraumatic. EYES: Pupils equal and round. No scleral icterus. No injection or drainage. ENT: Swollen and protruding tongue, s/p laceration repair, small ecchymotic areas and scab at right lateral tongue; no active bleeding; improving. S/p dental extractions. NECK: Tracheostomy in place. CARDIOVASCULAR: Regular rate and rhythm. S1, S2 noted. 5/6 systolic murmur noted. RESPIRATORY: No accessory muscle use. Clear to auscultation. Breath sounds equal bilaterally. GASTROINTESTINAL: Abdomen soft, non-tender, nondistended. Normoactive bowel sounds x4. Peg in place. MUSCULOSKELETAL: No obvious deformities. Extremities without clubbing, cyanosis , or edema. 2+ b/l pedal pulses. B/l upper and lower extremities in loose restraints. NEUROLOGICAL: Awake, alert. Nonverbal secondary to tongue edema and tracheostomy however does answer questions by nodding or mouthing the answers, still difficult to understand. Follows simple commands, wiggles toes and has 4/ 5 school occupational therapist strength on command. Procedures s/p endovascular coiling of MCA ruptured cerebral aneurysm 04/11/16 s/p tracheostomy on 04/29/2016 Dental extractions Medications and IVs Current Medications Medications (Trade) Dose Ordered Sig/Zhanna Route Start Time Stop Time Status Last Admin (NS Flush) 2 ml UNSCH PRN IVF 04/11/16 13:30 (NS Flush) 2 ml BID IVF 04/11/16 21:00 08/09/16 09:04 (Zofran Inj) 4 mg Q6H PRN IV 04/11/16 13:30 05/20/16 04:01 (Lovenox Inj) 40 mg Q24H SQ 05/13/16 09:00 08/09/16 09:03 (Apresoline) 75 mg Q8HR TUBE 05/18/16 22:00 08/09/16 06:52 (Apresoline Inj) 10 mg Q6H PRN IV 07/13/16 21:45 (Swink 5-325 Mg) 2 tab Q6H PRN TUBE 07/15/16 16:15 08/04/16 20:55 (Tylenol 650 Mg/ 20 ml Liq) 650 mg Q4H PRN TUBE 07/15/16 12:30 (Norvasc) 10 mg DAILY TUBE 07/16/16 09:00 08/09/16 09:03 (Catapres) 0.1 mg Q6H PRN TUBE 07/15/16 16:00 (Trandate) 300 mg Q8HR TUBE 07/15/16 14:00 08/09/16 06:00 (Zantac Liq) 150 mg Q12HR TUBE 07/15/16 21:00 08/09/16 09:03 (Xanax) 0.25 mg Q8H PRN PO 07/23/16 15:45 08/07/16 10:01 (Peridex 0.12% Liq) 30 ml BID OTHER 07/27/16 21:00 08/09/16 09:03 (SEROquel) 50 mg HS TUBE 08/06/16 21:00 08/08/16 21:00 (SEROquel) 25 mg DAILY TUBE 08/07/16 09:00 08/09/16 09:03 (Swink 5-325 Mg) 1 tab Q6H PRN TUBE 08/07/16 16:15 Urinary Catheter: No Vascular Central Line Catheter: No 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 ICD Code: I60.12 Status: Acute (2) Cerebral aneurysm rupture ICD Code: I60.9 Status: Acute (3) Hypertension ICD Code: I10 Status: Chronic (4) Encephalopathy ICD Code: G93.40 Status: Chronic (5) Malnutrition ICD Code: E46 Status: Acute (6) Sequelae of nontraumatic intracerebral hemorrhage ICD Code: I69.10 Status: Chronic (7) 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 s/p Dr. Meléndez performed left decompressive craniotomy 04/25 with evacuation of temporal hematoma. OUTDOOR POWER EQUIPMENT MECHANIC shunt placed 05/07. S/p bone flap on 05/22. The patient has had some improvement and does follow commands. -Malignant Hypertension (Hypertensive emergency) on admission -- s/p 3 weeks of Nimotop therapy for vasospasm prevention. in SAH patient. now targeting SBP < 160. Continue Norvasc 10 q day, HCTZ 25 mg daily , labetalol 300 mg PO TID, hydralazine 75 mg q8. Hold parameters. Blood pressure stable. No change in management. 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 Not a candidate for surgical intervention due to recent devastating neuro injury -Acute respiratory failure (now chronic resp failure) secondary to SAH / ICH. s/ p tracheostomy 04/29. Continue DuoNeb q 4 hours as needed -Macroglossia: Tongue edema again secondary to lower teeth biting with remaining upper teeth. S/P extraction of teeth to help reduce tongue edema by Dr Booth. Per OMFS, wound care and monitor. Improving. -Chronic mild Transaminitis. CT of the abdomen shows normal liver. Repeat LFTs stable and negative hepatitis profile. -Mild protein calorie malnutrition - s/p PEG 04/28. Tolerating tube feeds (Jevity ) at goal of 50 cc/hr (-25-30 kcal/kg/day) -Anemia of chronic inflammation / disease. Hgb stable with no signs of active bleeding -Sepsis secondary to pneumonia and prior UTI - resolved, now off all abx. -Hyperkalemia-continue hydrochlorothiazide, resolved with Lasix. -Agitation-secondary to brain injury. Continue restraints as needed. Continue low-dose Xanax as needed. On Seroquel 25 mg in am and 50 mg at bedtime. Caution with multiple sedating medications, hold parameters placed on Xanax and Lortab. Agitation improved, still requiring restraints intermittently. -GI Prophylaxis: oral Zantac q 12. -DVT Prophylaxis - SCDs; Lovenox 40 q day -Rehab: PT / OT. Will eventually need LTACH / SNF Discharge Planning Discharge to rehab when arranged, currently no accepting facility. Discussed with Letty Zuniga PA-C Aug 09, 2016 13:31 Michael Howard MD Aug 09, 2016 13:38
[2016-08-09] MEDS: ALPRAZolam 0.25 MG TAB PO PRN (21:46)
[2016-08-10] VITALS (8 sets, daily range): BP systolic 109–138; BP diastolic 69–90; PULSE 70–78; RESP 14–20; TEMP 95.8–96.9; O2SAT 96–100
[2016-08-10] MEDS: LABETALOL HCL 300 MG TAB TUBE SCH ×3 (05:40→20:52)
[2016-08-10] MEDS: hydrALAZINE HCL 25 MG TAB TUBE SCH ×3 (05:41→20:54)
[2016-08-10] MEDS: SODIUM CHLORIDE 0.9% FLUSH 5 ML FLUSH IVF SCH ×2 (09:48→20:55)
[2016-08-10] MEDS: CHLORHEXIDINE GLUCONATE 0.12% 30 ML CUP OTHER SCH ×2 (09:48→20:56)
[2016-08-10] MEDS: QUEtiapine FUMARATE 25 MG TAB TUBE SCH ×2 (09:48→20:56)
[2016-08-10] MEDS: ENOXAPARIN SODIUM 40 MG/0.4 ML SYRINGE SQ SCH (09:48)
[2016-08-10] MEDS: RANITIDINE HCL SYRUP 150 MG/10 ML UDC TUBE SCH ×2 (09:48→20:56)
--- NOTE | 2016-08-10 09:58 | HHI.PR ---
Subjective Remarks Follow up for SAH, encephalopathy, tongue edema. RN reports the patient still trying to get out of bed overnight, otherwise no acute events/concerns. She is drowsy this morning but easily awakens to voice. She denies any medical complaints. Tongue edema slowly improving. Easily falls back asleep after evaluation. Objective Vitals Vital Signs Date Time Temp Pulse Resp B/P Pulse Ox O2 Delivery O2 Flow Rate FiO2 08/10/16 08:44 96.0 70 19 138/90 97 08/10/16 06:31 T-Piece 6.00 28 08/10/16 04:00 95.8 70 20 125/69 99 08/10/16 00:52 96.5 78 19 125/84 98 08/09/16 22:00 T-Piece 6.00 28 08/09/16 20:00 95.5 87 20 116/68 93 08/09/16 18:23 97 T-piece 6.00 21 08/09/16 16:58 97.0 80 18 111/67 97 08/09/16 13:01 97.1 75 18 120/75 98 I/O 08/09/16 08/09/16 08/09/16 08/10/16 08/10/16 08/10/16 07:00 15:00 23:00 07:00 15:00 23:00 Intake Total 1200 ml Balance 1200 ml Tube Feeding 1000 ml Tube Irrigant 200 ml # Voids 4 2 1 1 # Bowel Movements 2 1 Imaging Last Impressions Head CT 05/23/16 0600 Signed Impressions: Service Date/Time: Monday, May 23, 2016 04:48 - CONCLUSION: 1. The left craniotomy defect has been repaired. 2. Small blood and air in the left subdural space, up to 6 mm in maximal thickness. Subdural drain in place. 3. Evolving encephalomalacia of the left frontal and temporal lobes. 4. 2 mm of rightward midline shift. 5. Shunted. No ventriculomegaly. Fei Hughes MD Chest X-Ray 05/17/16 0600 Signed Impressions: Service Date/Time: Tuesday, May 17, 2016 04:59 - CONCLUSION: 1. Minimal basilar atelectasis. Cardiomegaly. Quinn Bateman MD Skull X-Ray 05/08/16 0000 Signed Impressions: Service Date/Time: May 10:16 - CONCLUSION: Shunt set to 70-80 mm H2O. Fei Snyder MD Head CTA 05/02/16 0600 Signed Impressions: Service Date/Time: Monday, May 02, 2016 04:32 - CONCLUSION: Satisfactory appearance post aneurysm coiling Fei Snyder MD Abdomen/Pelvis CT 04/24/16 1416 Signed Impressions: Service Date/Time: March 14:39 - CONCLUSION: Mild small bowel ileus with scattered air-fluid levels. Bibasilar lung consolidation with associated small effusions. Significant soft tissue fluid accumulation with edematous changes throughout the abdominal wall. Nasogastric tube in good position. Saqib aGrcia MD Neck CTA 04/11/16 1151 Signed Impressions: Service Date/Time: Monday, April 11, 2016 12:01 - CONCLUSION: Negative for hemodynamically significant carotid stenosis. Ricardo Castellanos MD FACR Cerebral Arteriogram 04/11/16 0000 Signed Impressions: Service Date/Time: Monday, April 11, 2016 14:18 - CONCLUSION: 1. 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 This is the aneurysm felt responsible for the intracranial hemorrhage. 2. Small 4 mm left M1 segment aneurysm. Attempts at embolizing this aneurysm were unsuccessful due to the broad based nature of the aneurysm. Endovascular repair of this aneurysm could not be performed. Kennedy Thibodeaux Jr., MD Objective Remarks GENERAL: Well-nourished, well-developed middle aged female patient in [facility]. SKIN: Warm and dry. No rash. HEAD: Normocephalic. Atraumatic. EYES: Pupils equal and round. No scleral icterus. No injection or drainage. ENT: Swollen and protruding tongue, s/p laceration repair, small ecchymotic areas and scab at right lateral tongue; no active bleeding; improving. S/p dental extractions. NECK: Tracheostomy in place. CARDIOVASCULAR: Regular rate and rhythm. S1, S2 noted. 5/6 systolic murmur noted. RESPIRATORY: No accessory muscle use. Clear to auscultation. Breath sounds equal bilaterally. GASTROINTESTINAL: Abdomen soft, non-tender, nondistended. Normoactive bowel sounds x4. Peg in place. MUSCULOSKELETAL: No obvious deformities. Extremities without clubbing, cyanosis , or edema. 2+ b/l pedal pulses. B/l upper and lower extremities in loose restraints. NEUROLOGICAL: Awake, alert. Nonverbal secondary to tongue edema and tracheostomy however does answer questions by nodding or mouthing the answers, still difficult to understand. Follows simple commands, wiggles toes and has 4/ 5 insemination worker strength on command. Procedures s/p endovascular coiling of MCA ruptured cerebral aneurysm 04/11/16 s/p tracheostomy on 04/29/2016 Dental extractions Medications and IVs Current Medications Medications (Trade) Dose Ordered Sig/Zhanna Route Start Time Stop Time Status Last Admin (NS Flush) 2 ml UNSCH PRN IVF 04/11/16 13:30 (NS Flush) 2 ml BID IVF 04/11/16 21:00 08/10/16 09:48 (Zofran Inj) 4 mg Q6H PRN IV 04/11/16 13:30 05/20/16 04:01 (Lovenox Inj) 40 mg Q24H SQ 05/13/16 09:00 08/10/16 09:48 (Apresoline) 75 mg Q8HR TUBE 05/18/16 22:00 08/10/16 05:41 (Apresoline Inj) 10 mg Q6H PRN IV 07/13/16 21:45 (Coulter 5-325 Mg) 2 tab Q6H PRN TUBE 07/15/16 16:15 08/04/16 20:55 (Tylenol 650 Mg/ 20 ml Liq) 650 mg Q4H PRN TUBE 07/15/16 12:30 (Norvasc) 10 mg DAILY TUBE 07/16/16 09:00 08/10/16 09:48 (Catapres) 0.1 mg Q6H PRN TUBE 07/15/16 16:00 (Trandate) 300 mg Q8HR TUBE 07/15/16 14:00 08/10/16 05:40 (Zantac Liq) 150 mg Q12HR TUBE 07/15/16 21:00 08/10/16 09:48 (Xanax) 0.25 mg Q8H PRN PO 07/23/16 15:45 08/09/16 21:46 (Peridex 0.12% Liq) 30 ml BID OTHER 07/27/16 21:00 08/10/16 09:48 (SEROquel) 50 mg HS TUBE 08/06/16 21:00 08/09/16 21:45 (SEROquel) 25 mg DAILY TUBE 08/07/16 09:00 08/10/16 09:48 (Coulter 5-325 Mg) 1 tab Q6H PRN TUBE 08/07/16 16:15 Urinary Catheter: No Vascular Central Line Catheter: No 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 ICD Code: I60.12 Status: Acute (2) Cerebral aneurysm rupture ICD Code: I60.9 Status: Acute (3) Hypertension ICD Code: I10 Status: Chronic (4) Encephalopathy ICD Code: G93.40 Status: Chronic (5) Malnutrition ICD Code: E46 Status: Acute (6) Sequelae of nontraumatic intracerebral hemorrhage ICD Code: I69.10 Status: Chronic (7) 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 s/p Dr. Meléndez performed left decompressive craniotomy 04/25 with evacuation of temporal hematoma. ATLASSIAN ADMINISTRATOR shunt placed 05/07. S/p bone flap on 05/22. The patient has had some improvement and does follow commands. -Malignant Hypertension (Hypertensive emergency) on admission -- s/p 3 weeks of Nimotop therapy for vasospasm prevention. in SAH patient. now targeting SBP < 160. Continue Norvasc 10 q day, HCTZ 25 mg daily , labetalol 300 mg PO TID, hydralazine 75 mg q8. Hold parameters. Blood pressure stable. No change in management. 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 Not a candidate for surgical intervention due to recent devastating neuro injury -Acute respiratory failure (now chronic resp failure) secondary to SAH / ICH. s/ p tracheostomy 04/29. Continue DuoNeb q 4 hours as needed -Macroglossia: Tongue edema again secondary to lower teeth biting with remaining upper teeth. S/P extraction of teeth to help reduce tongue edema by Dr Booth. Per OMFS, wound care and monitor. Improving. -Chronic mild Transaminitis. CT of the abdomen shows normal liver. Repeat LFTs stable and negative hepatitis profile. -Mild protein calorie malnutrition - s/p PEG 04/28. Tolerating tube feeds (Jevity ) at goal of 50 cc/hr (-25-30 kcal/kg/day) -Anemia of chronic inflammation / disease. Hgb stable with no signs of active bleeding -Sepsis secondary to pneumonia and prior UTI - resolved, now off all abx. -Hyperkalemia-continue hydrochlorothiazide, resolved with Lasix. -Agitation-secondary to brain injury. Continue restraints as needed. Continue low-dose Xanax as needed. On Seroquel 25 mg in am and 50 mg at bedtime. Caution with multiple sedating medications, hold parameters placed on Xanax and Lortab. Agitation improved, still requiring restraints intermittently. -GI Prophylaxis: oral Zantac q 12. -DVT Prophylaxis - SCDs; Lovenox 40 q day -Rehab: PT / OT. Will eventually need LTACH / SNF Discharge Planning Discharge to rehab when arranged, currently no accepting facility. Discussed with Dr. Howard and RN. Letty Gore PA-C Aug 10, 2016 09:58 Michael Howard MD Aug 10, 2016 11:51
[2016-08-10] MEDS: ALPRAZolam 0.25 MG TAB PO PRN (20:52)
[2016-08-10] MEDS: ACETAMINOPHEN/HYDROcodone 325 MG/5 MG TAB TUBE PRN (20:53)
[2016-08-11] VITALS (8 sets, daily range): BP systolic 103–120; BP diastolic 70–96; PULSE 67–78; RESP 12–20; TEMP 96.5–98.1; O2SAT 94–100
[2016-08-11] MEDS: hydrALAZINE HCL 25 MG TAB TUBE SCH ×3 (05:31→22:00)
[2016-08-11] MEDS: LABETALOL HCL 300 MG TAB TUBE SCH ×3 (05:34→22:49)
[2016-08-11] MEDS: ALPRAZolam 0.25 MG TAB PO PRN ×2 (05:34→22:57)
[2016-08-11] MEDS: RANITIDINE HCL SYRUP 150 MG/10 ML UDC TUBE SCH ×2 (09:53→22:45)
[2016-08-11] MEDS: QUEtiapine FUMARATE 25 MG TAB TUBE SCH ×2 (09:53→22:44)
[2016-08-11] MEDS: CHLORHEXIDINE GLUCONATE 0.12% 30 ML CUP OTHER SCH ×2 (09:53→22:50)
[2016-08-11] MEDS: SODIUM CHLORIDE 0.9% FLUSH 5 ML FLUSH IVF SCH ×2 (09:54→21:00)
[2016-08-11] MEDS: ENOXAPARIN SODIUM 40 MG/0.4 ML SYRINGE SQ SCH (09:54)
--- NOTE | 2016-08-11 14:13 | HHI.PR ---
Subjective Remarks Follow-up for SAH encephalopathy. The patient is more sleepy at this time. Discussed with RN, no acute concerns, patient walked with PT today. Objective Vitals Vital Signs Date Time Temp Pulse Resp B/P Pulse Ox O2 Delivery O2 Flow Rate FiO2 08/11/16 12:00 97.1 74 18 114/74 99 08/11/16 09:43 96 T-piece 6.00 21 08/11/16 08:00 96.5 73 16 110/71 99 08/11/16 06:00 98.1 73 12 115/73 98 08/11/16 00:00 96.8 67 14 103/96 94 08/10/16 22:30 T-Piece 6.00 28 08/10/16 21:56 18 08/10/16 20:00 96.7 77 14 115/77 98 08/10/16 17:39 100 T-piece 6.00 21 08/10/16 16:18 96.9 78 18 109/69 100 I/O 08/10/16 08/10/16 08/10/16 08/11/16 08/11/16 08/11/16 06:59 14:59 22:59 06:59 14:59 22:59 Intake Total 1101 ml Balance 1101 ml Tube Feeding 1101 ml # Voids 1 2 2 # Bowel Movements 1 Objective Remarks GENERAL: Well-developed well-nourished. In no acute distress. Currently calm and in 4 point restraints. SKIN: Warm and dry. No lesions noted. HEENT: Normocephalic. Pupils equal and round. Swollen and protruding tongue with right lateral scab present. Edentulous. CARDIOVASCULAR: Regular rate and rhythm. 5/6 systolic murmur appreciated. RESPIRATORY: No accessory muscle use. Clear to auscultation. Breath sounds equal bilaterally. GASTROINTESTINAL: Abdomen soft, non-tender, nondistended. Bowel sounds x4. PEG in place. MUSCULOSKELETAL: No obvious deformities. No clubbing or cyanosis. No edema. NEUROLOGICAL: Somnolent today. Nonverbal secondary to tongue edema and tracheostomy. 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 s/p Dr. Meléndez performed left decompressive craniotomy 04/25 with evacuation of temporal hematoma. GALVANIZER ZINC shunt placed 05/07. S/p bone flap on 05/22. The patient has had some improvement and does follow some commands. -Malignant Hypertension (Hypertensive emergency) on admission -- s/p 3 weeks of Nimotop therapy for vasospasm prevention. in SAH patient. now targeting SBP < 160. Continue Norvasc 10 q day, HCTZ 25 mg daily , labetalol 300 mg PO TID, hydralazine 75 mg q8. Hold parameters. Blood pressure stable. No change in management. 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 Not a candidate for surgical intervention due to recent devastating neuro injury -Acute respiratory failure (now chronic resp failure) secondary to SAH / ICH. s/ p tracheostomy 04/29. Continue DuoNeb q 4 hours as needed -Macroglossia. Tongue edema again secondary to lower teeth biting with remaining upper teeth. S/P extraction of teeth to help reduce tongue edema by Dr Booth. Now with ecchymotic area. Per OMFS, wound care and monitor. Improving. -Chronic mild Transaminitis. CT of the abdomen shows normal liver. Repeat LFTs stable and negative hepatitis profile -Mild protein calorie malnutrition - s/p PEG 04/28. Tolerating tube feeds (Jevity ) at goal of 50 cc/hr (-25-30 kcal/kg/day) -Anemia of chronic inflammation / disease. Hgb stable with no signs of active bleeding -Sepsis secondary to pneumonia and prior UTI - resolved, now off all abx. -Agitation-secondary to brain injury. Continue restraints as needed, still requiring restraints intermittently. Continue low-dose Xanax as needed. On Seroquel 25 mg twice daily, increased nighttime Seroquel dose to 50 mg. Caution with multiple sedating medications, hold parameters placed on Xanax and Lortab. -GI Prophylaxis: oral Zantac q 12. -DVT Prophylaxis - SCDs; Lovenox 40 q day -Rehab: PT / OT. Will eventually need LTACH / SNF David Tinoco Aug 11, 2016 14:13 Dee Henderson MD Aug 11, 2016 15:44
[2016-08-12] VITALS (7 sets, daily range): BP systolic 107–148; BP diastolic 64–86; PULSE 74–88; RESP 18–20; TEMP 95.8–98.1; O2SAT 96–100
[2016-08-12] MEDS: LABETALOL HCL 300 MG TAB TUBE SCH ×3 (05:06→22:59)
[2016-08-12] MEDS: hydrALAZINE HCL 25 MG TAB TUBE SCH ×3 (05:06→23:00)
[2016-08-12] MEDS: RANITIDINE HCL SYRUP 150 MG/10 ML UDC TUBE SCH ×2 (09:01→22:59)
[2016-08-12] MEDS: ACETAMINOPHEN/HYDROcodone 325 MG/5 MG TAB TUBE PRN ×2 (09:02→23:01)
[2016-08-12] MEDS: ENOXAPARIN SODIUM 40 MG/0.4 ML SYRINGE SQ SCH (09:02)
[2016-08-12] MEDS: CHLORHEXIDINE GLUCONATE 0.12% 30 ML CUP OTHER SCH ×2 (09:02→22:59)
[2016-08-12] MEDS: SODIUM CHLORIDE 0.9% FLUSH 5 ML FLUSH IVF SCH ×2 (09:02→21:00)
[2016-08-12] MEDS: QUEtiapine FUMARATE 25 MG TAB TUBE SCH ×2 (09:02→23:00)
--- NOTE | 2016-08-12 15:40 | HHI.PR ---
Subjective Remarks Follow-up for SAH encephalopathy. The patient is awake and alert. She states her head no when asked if she has any pain. She denies any breathing problems. Discussed with RN, patient worked with PT today. Objective Vitals Vital Signs Date Time Temp Pulse Resp B/P Pulse Ox O2 Delivery O2 Flow Rate FiO2 08/12/16 12:00 97.1 82 20 112/70 98 08/12/16 09:10 T-Piece 6.00 28 08/12/16 08:45 96 T-piece 6.00 21 08/12/16 08:00 97.1 80 20 108/65 98 08/12/16 04:00 96.4 87 20 148/86 100 08/12/16 00:00 95.8 74 20 120/75 98 08/11/16 21:37 98 T-piece 21 08/11/16 20:00 97.4 78 20 120/81 100 08/11/16 16:00 97.0 74 18 119/70 99 I/O 08/11/16 08/11/16 08/11/16 08/12/16 08/12/16 08/12/16 07:00 15:00 23:00 07:00 15:00 23:00 Intake Total 1101 ml 1198 ml Balance 1101 ml 1198 ml Tube Feeding 1101 ml 998 ml Tube Irrigant 200 ml # Voids 2 1 1 3 # Bowel Movements 1 1 1 Objective Remarks GENERAL: Well-developed well-nourished. In no acute distress. Currently calm and in 4 point restraints. SKIN: Warm and dry. No lesions noted. HEENT: Normocephalic. Pupils equal and round. Swollen and protruding tongue with right lateral scab present. Edentulous. CARDIOVASCULAR: Regular rate and rhythm. 5/6 systolic murmur appreciated. RESPIRATORY: No accessory muscle use. Clear to auscultation. Breath sounds equal bilaterally. GASTROINTESTINAL: Abdomen soft, non-tender, nondistended. Bowel sounds x4. PEG in place. MUSCULOSKELETAL: No obvious deformities. No clubbing or cyanosis. No edema. NEUROLOGICAL: Somnolent today. Nonverbal secondary to tongue edema and tracheostomy. 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 s/p Dr. Meléndez performed left decompressive craniotomy 04/25 with evacuation of temporal hematoma. [employer] shunt placed 05/07. S/p bone flap on 05/22. The patient has had some improvement and does follow some commands. -Malignant Hypertension (Hypertensive emergency) on admission -- s/p 3 weeks of Nimotop therapy for vasospasm prevention. in SAH patient. now targeting SBP < 160. Continue Norvasc 10 q day, HCTZ 25 mg daily , labetalol 300 mg PO TID, hydralazine 75 mg q8. Hold parameters. Blood pressure stable. No change in management. 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 Not a candidate for surgical intervention due to recent devastating neuro injury -Acute respiratory failure (now chronic resp failure) secondary to SAH / ICH. s/ p tracheostomy 04/29. Continue DuoNeb q 4 hours as needed -Macroglossia. Tongue edema again secondary to lower teeth biting with remaining upper teeth. S/P extraction of teeth to help reduce tongue edema by Dr Booth. Now with ecchymotic area. Per OMFS, wound care and monitor. Improving. -Chronic mild Transaminitis. CT of the abdomen shows normal liver. Repeat LFTs stable and negative hepatitis profile -Mild protein calorie malnutrition - s/p PEG 04/28. Tolerating tube feeds (Jevity ) at goal of 50 cc/hr (-25-30 kcal/kg/day) -Anemia of chronic inflammation / disease. Hgb stable with no signs of active bleeding -Sepsis secondary to pneumonia and prior UTI - resolved, now off all abx. -Agitation-secondary to brain injury. Continue restraints as needed, still requiring restraints intermittently. Continue low-dose Xanax as needed. On Seroquel 25 mg twice daily, increased nighttime Seroquel dose to 50 mg. Caution with multiple sedating medications, hold parameters placed on Xanax and Lortab. -GI Prophylaxis: oral Zantac q 12. -DVT Prophylaxis - SCDs; Lovenox 40 q day -Rehab: PT / OT. Will eventually need LTACH / SNF 08/12 No change in management. David Tinoco Aug 12, 2016 15:40 Dee Henderson MD Aug 12, 2016 15:52
[2016-08-13] VITALS (8 sets, daily range): BP systolic 103–132; BP diastolic 64–77; PULSE 78–88; RESP 17–20; TEMP 96.1–98; O2SAT 97–100
[2016-08-13] MEDS: LABETALOL HCL 300 MG TAB TUBE SCH ×3 (05:31→22:00)
[2016-08-13] MEDS: hydrALAZINE HCL 25 MG TAB TUBE SCH ×3 (05:41→21:55)
[2016-08-13] MEDS: CHLORHEXIDINE GLUCONATE 0.12% 30 ML CUP OTHER SCH ×2 (08:47→21:55)
[2016-08-13] MEDS: ENOXAPARIN SODIUM 40 MG/0.4 ML SYRINGE SQ SCH (08:47)
[2016-08-13] MEDS: RANITIDINE HCL SYRUP 150 MG/10 ML UDC TUBE SCH ×2 (08:47→21:55)
[2016-08-13] MEDS: ALPRAZolam 0.25 MG TAB PO PRN (08:48)
[2016-08-13] MEDS: QUEtiapine FUMARATE 25 MG TAB TUBE SCH ×2 (08:48→21:56)
[2016-08-13] MEDS: SODIUM CHLORIDE 0.9% FLUSH 5 ML FLUSH IVF SCH ×2 (08:49→21:55)
--- NOTE | 2016-08-13 15:55 | HHI.PR ---
Subjective Remarks Appears in nad. Nods with head when asked questions. No events overnight. Objective Vitals Vital Signs Date Time Temp Pulse Resp B/P Pulse Ox O2 Delivery O2 Flow Rate FiO2 08/13/16 12:00 96.1 81 20 110/77 98 08/13/16 08:12 97 T-piece 6.00 21 08/13/16 08:00 96.7 83 20 120/75 98 08/13/16 05:45 98.0 84 19 120/65 99 08/13/16 00:30 97.7 80 17 123/64 99 08/12/16 20:45 98.1 88 18 125/75 100 08/12/16 16:00 97.1 74 20 107/64 98 I/O 08/12/16 08/12/16 08/12/16 08/13/16 08/13/16 08/13/16 07:00 15:00 23:00 07:00 15:00 23:00 Intake Total 1198 ml 0 ml 1293 ml Balance 1198 ml 0 ml 1293 ml Intake Oral 0 ml 0 ml Tube Feeding 998 ml 993 ml Tube Irrigant 200 ml 300 ml # Voids 1 3 1 2 3 # Bowel Movements 1 1 0 0 Objective Remarks GENERAL: Well-developed well-nourished. Currently calm and in 4 point restraints. Tongue extruding. doesn't appear in acute distress, however appears chronically ill patient. SKIN: Warm and dry. No lesions noted. HEENT: Normocephalic. Pupils equal and round. Swollen and protruding tongue with right lateral scab present. Edentulous. CARDIOVASCULAR: Regular rate and rhythm. 5/6 systolic murmur appreciated. RESPIRATORY: No accessory muscle use. Clear to auscultation. Breath sounds equal bilaterally. GASTROINTESTINAL: Abdomen soft, non-tender, nondistended. Bowel sounds x4. PEG in place. MUSCULOSKELETAL: No obvious deformities. No clubbing or cyanosis. No edema. NEUROLOGICAL: Awake and alert. Nonverbal secondary to tongue edema and tracheostomy. 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 s/p Dr. Meléndez performed left decompressive craniotomy 04/25 with evacuation of temporal hematoma. [employer] shunt placed 05/07. S/p bone flap on 05/22. The patient has had some improvement and does follow some commands. -Malignant Hypertension (Hypertensive emergency) on admission -- s/p 3 weeks of Nimotop therapy for vasospasm prevention. in SAH patient. now targeting SBP < 160. Continue Norvasc 10 q day, HCTZ 25 mg daily , labetalol 300 mg PO TID, hydralazine 75 mg q8. Hold parameters. Blood pressure stable. No change in management. 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 Not a candidate for surgical intervention due to recent devastating neuro injury -Acute respiratory failure (now chronic resp failure) secondary to SAH / ICH. s/ p tracheostomy 04/29. Continue DuoNeb q 4 hours as needed -Macroglossia. Tongue edema again secondary to lower teeth biting with remaining upper teeth. S/P extraction of teeth to help reduce tongue edema by Dr Booth. Now with ecchymotic area. Per OMFS, wound care and monitor. Improving. -Chronic mild Transaminitis. CT of the abdomen shows normal liver. Repeat LFTs stable and negative hepatitis profile -Mild protein calorie malnutrition - s/p PEG 04/28. Tolerating tube feeds (Jevity ) at goal of 50 cc/hr (-25-30 kcal/kg/day) -Anemia of chronic inflammation / disease. Hgb stable with no signs of active bleeding -Sepsis secondary to pneumonia and prior UTI - resolved, now off all abx. -Agitation-secondary to brain injury. Continue restraints as needed, still requiring restraints intermittently. Continue low-dose Xanax as needed. On Seroquel 25 mg twice daily, increased nighttime Seroquel dose to 50 mg. Caution with multiple sedating medications, hold parameters placed on Xanax and Lortab. -GI Prophylaxis: oral Zantac q 12. -DVT Prophylaxis - SCDs; Lovenox 40 q day -Rehab: PT / OT. Will eventually need LTACH / SNF 08/13 No change in management. Dee Henderson MD Aug 13, 2016 15:55
[2016-08-14] VITALS (8 sets, daily range): BP systolic 98–136; BP diastolic 54–75; PULSE 70–115; RESP 20; TEMP 96.4–97.4; O2SAT 98–100
[2016-08-14] MEDS: hydrALAZINE HCL 25 MG TAB TUBE SCH ×3 (05:00→22:23)
[2016-08-14] MEDS: LABETALOL HCL 300 MG TAB TUBE SCH ×3 (05:00→22:24)
[2016-08-14] MEDS: RANITIDINE HCL SYRUP 150 MG/10 ML UDC TUBE SCH ×2 (07:29→22:22)
[2016-08-14] MEDS: CHLORHEXIDINE GLUCONATE 0.12% 30 ML CUP OTHER SCH ×2 (07:29→22:23)
[2016-08-14] MEDS: QUEtiapine FUMARATE 25 MG TAB TUBE SCH ×2 (07:30→22:24)
[2016-08-14] MEDS: ENOXAPARIN SODIUM 40 MG/0.4 ML SYRINGE SQ SCH (07:30)
[2016-08-14] MEDS: SODIUM CHLORIDE 0.9% FLUSH 5 ML FLUSH IVF SCH ×2 (07:31→21:00)
[2016-08-14] MEDS: ALPRAZolam 0.25 MG TAB PO PRN ×2 (07:32→22:24)
--- NOTE | 2016-08-14 10:28 | HHI.PR ---
Subjective Remarks BP 98/54 in the morning, repeat normal. Appears in nad. sleepy. No complaints. No acute events. Objective Vitals Vital Signs Date Time Temp Pulse Resp B/P Pulse Ox O2 Delivery O2 Flow Rate FiO2 08/14/16 09:13 Trach Collar Humidified 08/14/16 08:30 96.4 72 20 98/54 100 08/14/16 04:00 97.2 77 20 113/69 99 08/14/16 00:00 96.9 70 20 133/75 99 08/13/16 23:47 Trach Collar Humidified 08/13/16 20:00 96.8 78 20 132/75 100 08/13/16 17:22 100 T-piece 6.00 21 08/13/16 16:00 96.8 88 20 103/69 100 08/13/16 12:00 96.1 81 20 110/77 98 I/O 08/13/16 08/13/16 08/13/16 08/14/16 08/14/16 08/14/16 07:00 15:00 23:00 07:00 15:00 23:00 Intake Total 1293 ml 1697 ml Balance 1293 ml 1697 ml Intake Oral 0 ml Tube Feeding 993 ml 1497 ml Tube Irrigant 300 ml Other 200 ml # Voids 2 3 3 3 # Bowel Movements 0 1 0 Imaging Last Impressions Head CT 05/23/16 0600 Signed Impressions: Service Date/Time: Monday, May 23, 2016 04:48 - CONCLUSION: 1. The left craniotomy defect has been repaired. 2. Small blood and air in the left subdural space, up to 6 mm in maximal thickness. Subdural drain in place. 3. Evolving encephalomalacia of the left frontal and temporal lobes. 4. 2 mm of rightward midline shift. 5. Shunted. No ventriculomegaly. Fei Hughes MD Chest X-Ray 05/17/16 0600 Signed Impressions: Service Date/Time: Tuesday, May 17, 2016 04:59 - CONCLUSION: 1. Minimal basilar atelectasis. Cardiomegaly. Quinn Bateman MD Skull X-Ray 05/08/16 0000 Signed Impressions: Service Date/Time: May 10:16 - CONCLUSION: Shunt set to 70-80 mm H2O. Fei Snyder MD Head CTA 05/02/16 0600 Signed Impressions: Service Date/Time: Monday, May 02, 2016 04:32 - CONCLUSION: Satisfactory appearance post aneurysm coiling Fei Snyder MD Abdomen/Pelvis CT 04/24/16 1416 Signed Impressions: Service Date/Time: March 14:39 - CONCLUSION: Mild small bowel ileus with scattered air-fluid levels. Bibasilar lung consolidation with associated small effusions. Significant soft tissue fluid accumulation with edematous changes throughout the abdominal wall. Nasogastric tube in good position. Saqib Garcia MD Neck CTA 04/11/16 1151 Signed Impressions: Service Date/Time: Monday, April 11, 2016 12:01 - CONCLUSION: Negative for hemodynamically significant carotid stenosis. Ricardo Castellnaos MD FACR Cerebral Arteriogram 04/11/16 0000 Signed Impressions: Service Date/Time: Monday, April 11, 2016 14:18 - CONCLUSION: 1. 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 This is the aneurysm felt responsible for the intracranial hemorrhage. 2. Small 4 mm left M1 segment aneurysm. Attempts at embolizing this aneurysm were unsuccessful due to the broad based nature of the aneurysm. Endovascular repair of this aneurysm could not be performed. Kennedy Thibodeaux Jr., MD Objective Remarks GENERAL: Well-developed well-nourished. Currently calm and in 4 point restraints. Tongue extruding. doesn't appear in acute distress, however appears chronically ill patient. SKIN: Warm and dry. No lesions noted. HEENT: Normocephalic. Pupils equal and round. Swollen and protruding tongue with right lateral scab present. Edentulous. CARDIOVASCULAR: Regular rate and rhythm. 5/6 systolic murmur appreciated. RESPIRATORY: No accessory muscle use. Clear to auscultation. Breath sounds equal bilaterally. GASTROINTESTINAL: Abdomen soft, non-tender, nondistended. Bowel sounds x4. PEG in place. MUSCULOSKELETAL: No obvious deformities. No clubbing or cyanosis. No edema. NEUROLOGICAL: Awake and alert. Nonverbal secondary to tongue edema and tracheostomy. 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 s/p Dr. Meléndez performed left decompressive craniotomy 04/25 with evacuation of temporal hematoma. [employer] shunt placed 05/07. S/p bone flap on 05/22. The patient has had some improvement and does follow some commands. -Malignant Hypertension (Hypertensive emergency) on admission -- s/p 3 weeks of Nimotop therapy for vasospasm prevention. in SAH patient. now targeting SBP < 160. Continue Norvasc 10 q day, HCTZ 25 mg daily , labetalol 300 mg PO TID, hydralazine 75 mg q8. Hold parameters. Blood pressure stable. No change in management. 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 Not a candidate for surgical intervention due to recent devastating neuro injury -Acute respiratory failure (now chronic resp failure) secondary to SAH / ICH. s/ p tracheostomy 04/29. Continue DuoNeb q 4 hours as needed -Macroglossia. Tongue edema again secondary to lower teeth biting with remaining upper teeth. S/P extraction of teeth to help reduce tongue edema by Dr Booth. Now with ecchymotic area. Per OMFS, wound care and monitor. Improving. -Chronic mild Transaminitis. CT of the abdomen shows normal liver. Repeat LFTs stable and negative hepatitis profile -Mild protein calorie malnutrition - s/p PEG 04/28. Tolerating tube feeds (Jevity ) at goal of 50 cc/hr (-25-30 kcal/kg/day) -Anemia of chronic inflammation / disease. Hgb stable with no signs of active bleeding -Sepsis secondary to pneumonia and prior UTI - resolved, now off all abx. -Agitation-secondary to brain injury. Continue restraints as needed, still requiring restraints intermittently. Continue low-dose Xanax as needed. On Seroquel 25 mg twice daily, increased nighttime Seroquel dose to 50 mg. Caution with multiple sedating medications, hold parameters placed on Xanax and Lortab. -GI Prophylaxis: oral Zantac q 12. -DVT Prophylaxis - SCDs; Lovenox 40 q day -Rehab: PT / OT. Will eventually need LTACH / SNF 08/14 No change in management. Dee Henderson MD Aug 14, 2016 10:28
[2016-08-14] MEDS: ACETAMINOPHEN/HYDROcodone 325 MG/5 MG TAB TUBE PRN (22:23)
[2016-08-15] VITALS (7 sets, daily range): BP systolic 112–139; BP diastolic 69–83; PULSE 66–74; RESP 20; TEMP 96.5–97.5; O2SAT 97–100
[2016-08-15] MEDS: LABETALOL HCL 300 MG TAB TUBE SCH ×3 (06:30→22:08)
[2016-08-15] MEDS: hydrALAZINE HCL 25 MG TAB TUBE SCH ×3 (06:30→22:08)
[2016-08-15] MEDS: CHLORHEXIDINE GLUCONATE 0.12% 30 ML CUP OTHER SCH ×2 (09:37→22:07)
[2016-08-15] MEDS: QUEtiapine FUMARATE 25 MG TAB TUBE SCH ×2 (09:38→22:08)
[2016-08-15] MEDS: RANITIDINE HCL SYRUP 150 MG/10 ML UDC TUBE SCH ×2 (09:38→22:07)
[2016-08-15] MEDS: SODIUM CHLORIDE 0.9% FLUSH 5 ML FLUSH IVF SCH ×2 (09:38→21:00)
[2016-08-15] MEDS: ENOXAPARIN SODIUM 40 MG/0.4 ML SYRINGE SQ SCH (09:38)
[2016-08-15] MEDS: ACETAMINOPHEN/HYDROcodone 325 MG/5 MG TAB TUBE PRN ×2 (11:13→22:07)
--- NOTE | 2016-08-15 17:24 | HHI.PR ---
Subjective Remarks Seen earlier today. Appears in not acute distress, pleasant awake and alert. Has no complaints. Objective Vitals Vital Signs Date Time Temp Pulse Resp B/P Pulse Ox O2 Delivery O2 Flow Rate FiO2 08/15/16 16:19 97.0 66 20 123/77 97 08/15/16 13:22 18 08/15/16 12:00 97.0 70 20 135/ 100 08/15/16 11:00 99 T-piece 6.00 21 08/15/16 08:06 96.5 73 20 139/83 97 08/15/16 04:00 97.5 71 20 123/70 98 08/15/16 00:00 97.1 74 20 112/69 97 08/14/16 22:30 Trach Collar 6.00 28 Humidified 08/14/16 20:00 97.4 72 20 128/69 100 08/14/16 19:00 115 08/14/16 18:09 98 T-piece 6.00 28 I/O 08/14/16 08/14/16 08/14/16 08/15/16 08/15/16 08/15/16 06:59 14:59 22:59 06:59 14:59 22:59 Intake Total 1697 ml 0 ml Balance 1697 ml 0 ml Intake Oral 0 ml Tube Feeding 1497 ml Other 200 ml # Voids 3 7 3 3 # Bowel Movements 0 0 0 Objective Remarks GENERAL: Well-developed well-nourished. Currently calm and in 4 point restraints. Tongue extruding. doesn't appear in acute distress, however appears chronically ill patient. SKIN: Warm and dry. No lesions noted. HEENT: Normocephalic. Pupils equal and round. Swollen and protruding tongue with right lateral scab present. Edentulous. CARDIOVASCULAR: Regular rate and rhythm. 5/6 systolic murmur appreciated. RESPIRATORY: No accessory muscle use. Clear to auscultation. Breath sounds equal bilaterally. GASTROINTESTINAL: Abdomen soft, non-tender, nondistended. Bowel sounds x4. PEG in place. MUSCULOSKELETAL: No obvious deformities. No clubbing or cyanosis. No edema. NEUROLOGICAL: Awake and alert. Nonverbal secondary to tongue edema and tracheostomy. 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 s/p Dr. Meléndez performed left decompressive craniotomy 04/25 with evacuation of temporal hematoma. [employer] shunt placed 05/07. S/p bone flap on 05/22. The patient has had some improvement and does follow some commands. -Malignant Hypertension (Hypertensive emergency) on admission -- s/p 3 weeks of Nimotop therapy for vasospasm prevention. in SAH patient. now targeting SBP < 160. Continue Norvasc 10 q day, HCTZ 25 mg daily , labetalol 300 mg PO TID, hydralazine 75 mg q8. Hold parameters. Blood pressure stable. No change in management. 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 Not a candidate for surgical intervention due to recent devastating neuro injury -Acute respiratory failure (now chronic resp failure) secondary to SAH / ICH. s/ p tracheostomy 04/29. Continue DuoNeb q 4 hours as needed -Macroglossia. Tongue edema again secondary to lower teeth biting with remaining upper teeth. S/P extraction of teeth to help reduce tongue edema by Dr Booth. Now with ecchymotic area. Per OMFS, wound care and monitor. Improving. -Chronic mild Transaminitis. CT of the abdomen shows normal liver. Repeat LFTs stable and negative hepatitis profile -Mild protein calorie malnutrition - s/p PEG 04/28. Tolerating tube feeds (Jevity ) at goal of 50 cc/hr (-25-30 kcal/kg/day) -Anemia of chronic inflammation / disease. Hgb stable with no signs of active bleeding -Sepsis secondary to pneumonia and prior UTI - resolved, now off all abx. -Agitation-secondary to brain injury. Continue restraints as needed, still requiring restraints intermittently. Continue low-dose Xanax as needed. On Seroquel 25 mg twice daily, increased nighttime Seroquel dose to 50 mg. Caution with multiple sedating medications, hold parameters placed on Xanax and Lortab. -GI Prophylaxis: oral Zantac q 12. -DVT Prophylaxis - SCDs; Lovenox 40 q day -Rehab: PT / OT. Will eventually need LTACH / SNF 08/15 No change in management. Dee Henderson MD Aug 15, 2016 17:24
[2016-08-15] MEDS: ALPRAZolam 0.25 MG TAB PO PRN (22:08)
[2016-08-16] VITALS (8 sets, daily range): BP systolic 93–148; BP diastolic 61–88; PULSE 66–80; RESP 17–20; TEMP 94.6–97.9; O2SAT 96–100
[2016-08-16] MEDS: hydrALAZINE HCL 25 MG TAB TUBE SCH ×3 (05:52→21:11)
[2016-08-16] MEDS: LABETALOL HCL 300 MG TAB TUBE SCH ×3 (05:52→21:11)
[2016-08-16] MEDS: QUEtiapine FUMARATE 25 MG TAB TUBE SCH ×2 (10:21→21:11)
[2016-08-16] MEDS: SODIUM CHLORIDE 0.9% FLUSH 5 ML FLUSH IVF SCH ×2 (10:21→21:10)
[2016-08-16] MEDS: CHLORHEXIDINE GLUCONATE 0.12% 30 ML CUP OTHER SCH ×2 (10:21→21:00)
[2016-08-16] MEDS: RANITIDINE HCL SYRUP 150 MG/10 ML UDC TUBE SCH ×2 (10:21→21:10)
[2016-08-16] MEDS: ENOXAPARIN SODIUM 40 MG/0.4 ML SYRINGE SQ SCH (10:22)
[2016-08-16] MEDS: ACETAMINOPHEN/HYDROcodone 325 MG/5 MG TAB TUBE PRN (14:17)
[2016-08-16] MEDS: ALPRAZolam 0.25 MG TAB PO PRN ×2 (14:17→21:11)
--- NOTE | 2016-08-16 15:18 | HHI.PR ---
Subjective Remarks Follow-up for SAH encephalopathy. Discussed with RN, patient has been a bit more agitated today. She has been pulling at her PEG tube and T Piece. She just received Xanax and [place]. The patient shakes her head no when asked if she has any complaints at this time. She shakes her head yes that she is doing well. She shakes her head no when asked if she is having any shortness of breath. Objective Vitals Vital Signs Date Time Temp Pulse Resp B/P Pulse Ox O2 Delivery O2 Flow Rate FiO2 08/16/16 09:10 98 T-piece 6.00 21 08/16/16 08:00 94.6 80 17 111/63 100 08/16/16 05:20 95.5 78 19 127/62 100 08/16/16 00:00 T-Piece 6.00 28 08/16/16 00:00 96.7 66 20 93/61 99 08/15/16 21:18 97.2 72 20 127/80 100 08/15/16 16:19 97.0 66 20 123/77 97 I/O 08/15/16 08/15/16 08/15/16 08/16/16 08/16/16 08/16/16 07:00 15:00 23:00 07:00 15:00 23:00 Intake Total 999 ml Output Total 999 ml Balance 999 ml -999 ml Intake Oral 0 ml Tube Feeding 999 ml Gastric Drainage Total 999 ml # Voids 3 5 2 # Bowel Movements 0 Objective Remarks GENERAL: Well-developed well-nourished. In no acute distress. Mildly agitated and in 4 point restraints with mittens. SKIN: Warm and dry. No lesions noted. HEENT: Normocephalic. Pupils equal and round. Swollen and protruding tongue. Edentulous. CARDIOVASCULAR: Regular rate and rhythm. 5/6 systolic murmur appreciated. RESPIRATORY: No accessory muscle use. Clear to auscultation. Breath sounds equal bilaterally. GASTROINTESTINAL: Abdomen soft, non-tender, nondistended. Bowel sounds x4. PEG in place. MUSCULOSKELETAL: No obvious deformities. No clubbing or cyanosis. No edema. NEUROLOGICAL: Awake and alert. Fidgety. Nonverbal secondary to tongue edema and tracheostomy. 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 s/p Dr. Meléndez performed left decompressive craniotomy 04/25 with evacuation of temporal hematoma. HOTBED LEVER OPERATOR shunt placed 05/07. S/p bone flap on 05/22. The patient has had some improvement and does follow some commands. -Malignant Hypertension (Hypertensive emergency) on admission -- s/p 3 weeks of Nimotop therapy for vasospasm prevention. in SAH patient. now targeting SBP < 160. Continue Norvasc 10 q day, HCTZ 25 mg daily , labetalol 300 mg PO TID, hydralazine 75 mg q8. Hold parameters. Blood pressure stable. No change in management. 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 Not a candidate for surgical intervention due to recent devastating neuro injury -Acute respiratory failure (now chronic resp failure) secondary to SAH / ICH. s/ p tracheostomy 04/29. Continue DuoNeb q 4 hours as needed -Macroglossia. Tongue edema again secondary to lower teeth biting with remaining upper teeth. S/P extraction of teeth to help reduce tongue edema by Dr Booth. Now with ecchymotic area. Per OMFS, wound care and monitor. Improving. -Chronic mild Transaminitis. CT of the abdomen shows normal liver. Repeat LFTs stable and negative hepatitis profile -Mild protein calorie malnutrition - s/p PEG 04/28. Tolerating tube feeds (Jevity ) at goal of 50 cc/hr (-25-30 kcal/kg/day) -Anemia of chronic inflammation / disease. Hgb stable with no signs of active bleeding -Sepsis secondary to pneumonia and prior UTI - resolved, now off all abx. -Agitation-secondary to brain injury. Continue restraints as needed, still requiring restraints intermittently. Continue low-dose Xanax as needed. On Seroquel 25 mg twice daily, increased nighttime Seroquel dose to 50 mg. Caution with multiple sedating medications, hold parameters placed on Xanax and Lortab. -GI Prophylaxis: oral Zantac q 12. -DVT Prophylaxis - SCDs; Lovenox 40 q day -Rehab: PT / OT. Will eventually need LTACH / SNF 08/16 will order a [place] vest with restraints. Discussed with RN, closely monitoring O2 sats. If continued agitation, may increase Seroquel to 50 mg twice a day. David Tinoco Aug 16, 2016 15:18 Dee Hednerson MD Aug 16, 2016 18:59
[2016-08-17] VITALS (9 sets, daily range): BP systolic 98–127; BP diastolic 65–84; PULSE 71–86; RESP 16–20; TEMP 96–98.1; O2SAT 96–100
[2016-08-17] MEDS: hydrALAZINE HCL 25 MG TAB TUBE SCH ×3 (06:00→21:12)
[2016-08-17] MEDS: LABETALOL HCL 300 MG TAB TUBE SCH ×3 (06:00→21:12)
[2016-08-17] MEDS: SODIUM CHLORIDE 0.9% FLUSH 5 ML FLUSH IVF SCH ×2 (07:28→21:11)
[2016-08-17] MEDS: ENOXAPARIN SODIUM 40 MG/0.4 ML SYRINGE SQ SCH (07:28)
[2016-08-17] MEDS: RANITIDINE HCL SYRUP 150 MG/10 ML UDC TUBE SCH (07:28)
[2016-08-17] MEDS: CHLORHEXIDINE GLUCONATE 0.12% 30 ML CUP OTHER SCH ×2 (07:28→21:11)
[2016-08-17] MEDS: QUEtiapine FUMARATE 25 MG TAB TUBE SCH ×2 (07:29→21:12)
[2016-08-17] MEDS: ALPRAZolam 0.25 MG TAB PO PRN ×2 (07:29→16:42)
--- NOTE | 2016-08-17 08:51 | HHI.PR ---
Subjective Remarks Follow-up for SAH encephalopathy. Discussed with RN, no acute events overnight. The patient is currently calm in 4 point restraints and Nadeem vest. She shakes her head yes that she is doing well today. She shakes her head no when asked if she has any shortness of breath. Objective Vitals Vital Signs Date Time Temp Pulse Resp B/P Pulse Ox O2 Delivery O2 Flow Rate FiO2 08/17/16 07:47 T-Piece 6.00 28 08/17/16 04:00 98.1 86 20 117/79 100 08/17/16 00:00 97.4 71 20 98/65 100 08/16/16 22:20 97 T-piece 21 08/16/16 20:00 96.8 73 18 130/79 100 08/16/16 20:00 T-Piece 6.00 28 08/16/16 15:30 18 08/16/16 14:00 97.9 73 17 148/88 96 08/16/16 12:00 97.2 73 18 138/84 99 08/16/16 10:20 T-Piece 6.00 28 08/16/16 09:10 98 T-piece 6.00 21 I/O 08/16/16 08/16/16 08/16/16 08/17/16 08/17/16 08/17/16 07:00 15:00 23:00 07:00 15:00 23:00 Intake Total 999 ml 564 ml Output Total 600 ml 300 ml Balance 999 ml -600 ml 264 ml Tube Feeding 999 ml 564 ml Output Urine Total 600 ml 300 ml # Voids 2 1 # Bowel Movements 2 Objective Remarks GENERAL: Well-developed well-nourished. In no acute distress. Calm in 4 point restraints,nadeem vest, and mittens. SKIN: Warm and dry. No lesions noted. HEENT: Normocephalic. Pupils equal and round. Swollen and protruding tongue. Edentulous. CARDIOVASCULAR: Regular rate and rhythm. 5/6 systolic murmur appreciated. RESPIRATORY: No accessory muscle use. Clear to auscultation. Breath sounds equal bilaterally. GASTROINTESTINAL: Abdomen soft, non-tender, nondistended. Bowel sounds x4. PEG in place. MUSCULOSKELETAL: No obvious deformities. No clubbing or cyanosis. No edema. NEUROLOGICAL: Awake and alert. Nonverbal secondary to tongue edema and tracheostomy. 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 s/p Dr. Meléndez performed left decompressive craniotomy 04/25 with evacuation of temporal hematoma. GEODESY TEACHER shunt placed 05/07. S/p bone flap on 05/22. The patient has had some improvement and does follow some commands. -Malignant Hypertension (Hypertensive emergency) on admission -- s/p 3 weeks of Nimotop therapy for vasospasm prevention. in SAH patient. now targeting SBP < 160. Continue Norvasc 10 q day, HCTZ 25 mg daily , labetalol 300 mg PO TID, hydralazine 75 mg q8. Hold parameters. Blood pressure stable. No change in management. 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 Not a candidate for surgical intervention due to recent devastating neuro injury -Acute respiratory failure (now chronic resp failure) secondary to SAH / ICH. s/ p tracheostomy 04/29. Continue DuoNeb q 4 hours as needed -Macroglossia. Tongue edema again secondary to lower teeth biting with remaining upper teeth. S/P extraction of teeth to help reduce tongue edema by Dr Booth. Now with ecchymotic area. Per OMFS, wound care and monitor. Improving. -Chronic mild Transaminitis. CT of the abdomen shows normal liver. Repeat LFTs stable and negative hepatitis profile -Mild protein calorie malnutrition - s/p PEG 04/28. Tolerating tube feeds (Jevity ) at goal of 50 cc/hr (-25-30 kcal/kg/day) -Anemia of chronic inflammation / disease. Hgb stable with no signs of active bleeding -Sepsis secondary to pneumonia and prior UTI - resolved, now off all abx. -Agitation-secondary to brain injury. Continue restraints as needed, still requiring restraints intermittently. Continue low-dose Xanax as needed. On Seroquel 25 mg twice daily, increased nighttime Seroquel dose to 50 mg. Caution with multiple sedating medications, hold parameters placed on Xanax and Lortab. -GI Prophylaxis: oral Zantac q 12. -DVT Prophylaxis - SCDs; Lovenox 40 q day -Rehab: PT / OT. Will eventually need LTACH / SNF 08/17 doing well at this time, at baseline, no change in management David Tinoco Aug 17, 2016 08:50 Dee Henderson MD Aug 17, 2016 12:05
[2016-08-17] MEDS: NYSTAT/DIPHENHY/LIDO MOUTHWASH (Adult) 120ML SWISH-SWAL SCH ×2 (17:09→21:11)
[2016-08-17] MEDS: FAMOTIDINE 20 MG TAB TUBE SCH (21:12)
[2016-08-18] VITALS (7 sets, daily range): BP systolic 112–121; BP diastolic 68–74; PULSE 70–79; RESP 20; TEMP 96.7–97.4; O2SAT 98–100
[2016-08-18] MEDS: ACETAMINOPHEN/HYDROcodone 325 MG/5 MG TAB TUBE PRN (01:39)
[2016-08-18] MEDS: ALPRAZolam 0.25 MG TAB PO PRN (01:39)
[2016-08-18] MEDS: LABETALOL HCL 300 MG TAB TUBE SCH ×3 (05:53→22:00)
[2016-08-18] MEDS: hydrALAZINE HCL 25 MG TAB TUBE SCH ×3 (05:53→22:00)
[2016-08-18] MEDS: NYSTAT/DIPHENHY/LIDO MOUTHWASH (Adult) 120ML SWISH-SWAL SCH ×4 (09:00→21:00)
[2016-08-18] MEDS: CHLORHEXIDINE GLUCONATE 0.12% 30 ML CUP OTHER SCH ×2 (10:44→22:33)
[2016-08-18] MEDS: SODIUM CHLORIDE 0.9% FLUSH 5 ML FLUSH IVF SCH ×2 (10:44→22:34)
[2016-08-18] MEDS: ENOXAPARIN SODIUM 40 MG/0.4 ML SYRINGE SQ SCH (10:44)
[2016-08-18] MEDS: FAMOTIDINE 20 MG TAB TUBE SCH ×2 (10:45→22:33)
[2016-08-18] MEDS: QUEtiapine FUMARATE 25 MG TAB TUBE SCH ×2 (10:45→22:33)
--- NOTE | 2016-08-18 13:38 | HHI.PR ---
Subjective Remarks Follow up for SAH/encephalopathy/tongue edema. The patient is seen with restraints, calm, following simple commands. No acute events overnight. Vital signs reviewed and stable. Objective Vitals Vital Signs Date Time Temp Pulse Resp B/P Pulse Ox O2 Delivery O2 Flow Rate FiO2 08/18/16 12:00 97.1 70 20 118/74 100 08/18/16 11:50 98 T-piece 21 08/18/16 10:40 T-Piece 6.00 28 08/18/16 08:00 97.4 74 20 121/71 100 08/18/16 04:00 97.0 77 20 117/70 99 08/18/16 00:00 96.7 79 20 119/73 99 08/17/16 20:28 96 T-piece 6.00 21 08/17/16 20:00 T-Piece 6.00 28 08/17/16 20:00 97.3 76 18 127/84 100 08/17/16 16:00 97.3 83 17 125/75 100 08/17/16 14:02 80 110/74 I/O 08/17/16 08/17/16 08/17/16 08/18/16 08/18/16 08/18/16 07:00 15:00 23:00 07:00 15:00 23:00 Intake Total 564 ml 1331 ml Output Total 300 ml 850 ml Balance 264 ml -850 ml 1331 ml Tube Feeding 564 ml 1331 ml Output Urine Total 300 ml 850 ml # Voids 6 3 # Bowel Movements 3 Objective Remarks GENERAL: Well-nourished, well-developed middle aged female patient in [facility]. SKIN: Warm and dry. No rash. HEAD: Normocephalic. Atraumatic. EYES: Pupils equal and round. No scleral icterus. No injection or drainage. ENT: Swollen and protruding tongue; no active bleeding; improving. S/p dental extractions. NECK: Tracheostomy in place. CARDIOVASCULAR: Regular rate and rhythm. S1, S2 noted. 5/6 systolic murmur noted. RESPIRATORY: No accessory muscle use. Clear to auscultation. Breath sounds equal bilaterally. GASTROINTESTINAL: Abdomen soft, non-tender, nondistended. Normoactive bowel sounds x4. Peg in place. MUSCULOSKELETAL: No obvious deformities. Extremities without clubbing, cyanosis , or edema. 2+ b/l pedal pulses. B/l upper and lower extremities in loose restraints. NEUROLOGICAL: Awake, alert. Nonverbal secondary to tongue edema and tracheostomy however does answer questions by nodding or mouthing the answers, still difficult to understand. Follows simple commands, wiggles toes and has 4/ 5 pondman strength on command. Procedures s/p endovascular coiling of MCA ruptured cerebral aneurysm 04/11/16 s/p tracheostomy on 04/29/2016 Dental extractions Medications and IVs Current Medications Medications (Trade) Dose Ordered Sig/Zhanna Route Start Time Stop Time Status Last Admin (NS Flush) 2 ml UNSCH PRN IVF 04/11/16 13:30 (NS Flush) 2 ml BID IVF 04/11/16 21:00 08/18/16 10:44 (Zofran Inj) 4 mg Q6H PRN IV 04/11/16 13:30 05/20/16 04:01 (Lovenox Inj) 40 mg Q24H SQ 05/13/16 09:00 08/18/16 10:44 (Apresoline) 75 mg Q8HR TUBE 05/18/16 22:00 08/18/16 05:53 (Apresoline Inj) 10 mg Q6H PRN IV 07/13/16 21:45 ([place]lin 5-325 Mg) 2 tab Q6H PRN TUBE 07/15/16 16:15 08/18/16 01:39 (Tylenol 650 Mg/ 20 ml Liq) 650 mg Q4H PRN TUBE 07/15/16 12:30 (Norvasc) 10 mg DAILY TUBE 07/16/16 09:00 08/18/16 10:45 (Catapres) 0.1 mg Q6H PRN TUBE 07/15/16 16:00 (Trandate) 300 mg Q8HR TUBE 07/15/16 14:00 08/18/16 05:53 (Xanax) 0.25 mg Q8H PRN PO 07/23/16 15:45 08/18/16 01:39 (Peridex 0.12% Liq) 30 ml BID OTHER 07/27/16 21:00 08/18/16 10:44 (SEROquel) 50 mg HS TUBE 08/06/16 21:00 08/17/16 21:12 (SEROquel) 25 mg DAILY TUBE 08/07/16 09:00 08/18/16 10:45 ([place] 5-325 Mg) 1 tab Q6H PRN TUBE 08/07/16 16:15 08/12/16 23:01 (Magic Mouthwash Adult Liq) 5 ml QID SWISH-SWAL 08/17/16 18:00 08/31/16 17:59 08/18/16 13:00 (Pepcid) 20 mg Q12HR TUBE 08/17/16 21:00 08/18/16 10:45 Urinary Catheter: No Vascular Central Line Catheter: No 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 ICD Code: I60.12 Status: Acute (2) Cerebral aneurysm rupture ICD Code: I60.9 Status: Acute (3) Hypertension ICD Code: I10 Status: Chronic (4) Encephalopathy ICD Code: G93.40 Status: Chronic (5) Malnutrition ICD Code: E46 Status: Acute (6) Sequelae of nontraumatic intracerebral hemorrhage ICD Code: I69.10 Status: Chronic (7) 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 s/p Dr. Meléndez performed left decompressive craniotomy 04/25 with evacuation of temporal hematoma. HAND BASEBALL SEWER shunt placed 05/07. S/p bone flap on 05/22. The patient has had some improvement and does follow some commands. -Malignant Hypertension (Hypertensive emergency) on admission -- s/p 3 weeks of Nimotop therapy for vasospasm prevention. in SAH patient. now targeting SBP < 160. Continue Norvasc 10 q day, HCTZ 25 mg daily , labetalol 300 mg PO TID, hydralazine 75 mg q8. Hold parameters. Blood pressure stable. No change in management. 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 Not a candidate for surgical intervention due to recent devastating neuro injury -Acute respiratory failure (now chronic resp failure) secondary to SAH / ICH. s/ p tracheostomy 04/29. Continue DuoNeb q 4 hours as needed -Macroglossia. Tongue edema again secondary to lower teeth biting with remaining upper teeth. S/P extraction of teeth to help reduce tongue edema by Dr Booth. Now with ecchymotic area. Per OMFS, wound care and monitor. Improving. -Chronic mild Transaminitis. CT of the abdomen shows normal liver. Repeat LFTs stable and negative hepatitis profile -Mild protein calorie malnutrition - s/p PEG 04/28. Tolerating tube feeds (Jevity ) at goal of 50 cc/hr (-25-30 kcal/kg/day) -Anemia of chronic inflammation / disease. Hgb stable with no signs of active bleeding -Sepsis secondary to pneumonia and prior UTI - resolved, now off all abx. -Agitation-secondary to brain injury. Continue restraints as needed, still requiring restraints intermittently. Continue low-dose Xanax as needed. On Seroquel 25 mg twice daily, increased nighttime Seroquel dose to 50 mg. Caution with multiple sedating medications, hold parameters placed on Xanax and Lortab. -GI Prophylaxis: oral Zantac q 12. -DVT Prophylaxis - SCDs; Lovenox 40 q day -Rehab: PT / OT. Will eventually need LTACH / SNF 08/18: patient doing well, no acute events, no changes in management. Discharge Planning Discharge to rehab when arranged, currently no accepting facility. Letty Gore PA-C Aug 18, 2016 13:38 Dee Henderson MD Aug 18, 2016 22:29
[2016-08-19 00:14] VITALS: BP 134/77; PULSE 72; RESP 18; TEMP 98; O2SAT 100
[2016-08-19] MEDS: hydrALAZINE HCL 25 MG TAB TUBE SCH ×3 (05:49→21:58)
[2016-08-19] MEDS: LABETALOL HCL 300 MG TAB TUBE SCH ×3 (05:49→21:58)
[2016-08-19 05:58] VITALS: BP 117/80; PULSE 73; RESP 18; TEMP 97.4; O2SAT 99
[2016-08-19 08:00] VITALS: BP 133/81; PULSE 73; RESP 18; TEMP 99.1; O2SAT 96
[2016-08-19] MEDS: CHLORHEXIDINE GLUCONATE 0.12% 30 ML CUP OTHER SCH ×2 (08:00→21:58)
[2016-08-19] MEDS: ENOXAPARIN SODIUM 40 MG/0.4 ML SYRINGE SQ SCH (08:00)
[2016-08-19] MEDS: NYSTAT/DIPHENHY/LIDO MOUTHWASH (Adult) 120ML SWISH-SWAL SCH ×4 (08:00→21:00)
[2016-08-19] MEDS: SODIUM CHLORIDE 0.9% FLUSH 5 ML FLUSH IVF SCH ×2 (08:02→21:00)
[2016-08-19] MEDS: QUEtiapine FUMARATE 25 MG TAB TUBE SCH ×2 (08:02→21:58)
[2016-08-19] MEDS: FAMOTIDINE 20 MG TAB TUBE SCH ×2 (08:02→21:58)
[2016-08-19 12:00] VITALS: BP 128/78; PULSE 70; RESP 18; TEMP 98.1; O2SAT 97
--- NOTE | 2016-08-19 14:23 | HHI.PR ---
Subjective Remarks Follow up for SAH/encephalopathy/tongue edema. The patient was in bedside chair for a few hours today, now back in bed after having soft BM. The patient is seen getting cleaned up after BM. PT and CNAs at bedside, also discussed with RN. The patient denies any medical complaints. No acute events overnight. Vital signs stable. Objective Vitals Vital Signs Date Time Temp Pulse Resp B/P Pulse Ox O2 Delivery O2 Flow Rate FiO2 08/19/16 12:00 98.1 70 18 128/78 97 08/19/16 08:23 Room Air T-Piece Humidified 08/19/16 08:00 99.1 73 18 133/81 96 08/19/16 05:58 97.4 73 18 117/80 99 08/19/16 00:14 98.0 72 18 134/77 100 08/18/16 20:18 98 T-piece 21 08/18/16 20:00 Room Air T-Piece Humidified 08/18/16 16:00 97.1 74 20 112/68 100 I/O 08/18/16 08/18/16 08/18/16 08/19/16 08/19/16 08/19/16 07:00 15:00 23:00 07:00 15:00 23:00 Intake Total 1331 ml 941 ml 555 ml 221 ml Balance 1331 ml 941 ml 555 ml 221 ml Tube Feeding 1331 ml 741 ml 355 ml 221 ml Other 200 ml 200 ml # Voids 3 4 1 1 # Bowel Movements 2 1 1 Objective Remarks GENERAL: Well-nourished, well-developed middle aged female patient in [facility]. SKIN: Warm and dry. No rash. HEAD: Normocephalic. Atraumatic. EYES: Pupils equal and round. No scleral icterus. No injection or drainage. ENT: Swollen and protruding tongue; no active bleeding; improving. S/p dental extractions. NECK: Tracheostomy in place. CARDIOVASCULAR: Regular rate and rhythm. S1, S2 noted. 5/6 systolic murmur noted. RESPIRATORY: No accessory muscle use. Clear to auscultation. Breath sounds equal bilaterally. GASTROINTESTINAL: Abdomen soft, non-tender, nondistended. Normoactive bowel sounds x4. Peg in place. MUSCULOSKELETAL: No obvious deformities. Extremities without clubbing, cyanosis , or edema. 2+ b/l pedal pulses. B/l upper and lower extremities in loose restraints. NEUROLOGICAL: Awake, alert. Nonverbal secondary to tongue edema and tracheostomy however does answer questions by nodding or mouthing the answers, still difficult to understand. Follows simple commands, wiggles toes and has 4/ 5 turf grower strength on command. Procedures s/p endovascular coiling of MCA ruptured cerebral aneurysm 04/11/16 s/p tracheostomy on 04/29/2016 Dental extractions Medications and IVs Current Medications Medications (Trade) Dose Ordered Sig/Zhanna Route Start Time Stop Time Status Last Admin (NS Flush) 2 ml UNSCH PRN IVF 04/11/16 13:30 (NS Flush) 2 ml BID IVF 04/11/16 21:00 08/19/16 08:02 (Zofran Inj) 4 mg Q6H PRN IV 04/11/16 13:30 05/20/16 04:01 (Lovenox Inj) 40 mg Q24H SQ 05/13/16 09:00 08/19/16 08:00 (Apresoline) 75 mg Q8HR TUBE 05/18/16 22:00 08/18/16 05:53 (Apresoline Inj) 10 mg Q6H PRN IV 07/13/16 21:45 (Celeste 5-325 Mg) 2 tab Q6H PRN TUBE 07/15/16 16:15 08/18/16 01:39 (Tylenol 650 Mg/ 20 ml Liq) 650 mg Q4H PRN TUBE 07/15/16 12:30 (Norvasc) 10 mg DAILY TUBE 07/16/16 09:00 08/19/16 08:01 (Catapres) 0.1 mg Q6H PRN TUBE 07/15/16 16:00 (Trandate) 300 mg Q8HR TUBE 07/15/16 14:00 08/19/16 08:01 (Xanax) 0.25 mg Q8H PRN PO 07/23/16 15:45 08/18/16 01:39 (Peridex 0.12% Liq) 30 ml BID OTHER 07/27/16 21:00 08/19/16 08:00 (SEROquel) 50 mg HS TUBE 08/06/16 21:00 08/18/16 22:33 (SEROquel) 25 mg DAILY TUBE 08/07/16 09:00 08/19/16 08:02 (Celeste 5-325 Mg) 1 tab Q6H PRN TUBE 08/07/16 16:15 08/12/16 23:01 (Magic Mouthwash Adult Liq) 5 ml QID SWISH-SWAL 08/17/16 18:00 08/31/16 17:59 08/19/16 12:19 (Pepcid) 20 mg Q12HR TUBE 08/17/16 21:00 08/19/16 08:02 Urinary Catheter: No 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 ICD Code: I60.12 Status: Acute (2) Cerebral aneurysm rupture ICD Code: I60.9 Status: Acute (3) Hypertension ICD Code: I10 Status: Chronic (4) Encephalopathy ICD Code: G93.40 Status: Chronic (5) Malnutrition ICD Code: E46 Status: Acute (6) Sequelae of nontraumatic intracerebral hemorrhage ICD Code: I69.10 Status: Chronic (7) 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 s/p Dr. Meléndez performed left decompressive craniotomy 04/25 with evacuation of temporal hematoma. HOT PLATE PLYWOOD PRESS OFFBEARER shunt placed 05/07. S/p bone flap on 05/22. The patient has had some improvement and does follow most commands. Improving with PT, ambulated in room today. -Malignant Hypertension (Hypertensive emergency) on admission -- s/p 3 weeks of Nimotop therapy for vasospasm prevention. in SAH patient. now targeting SBP < 160. Continue Norvasc 10 q day, HCTZ 25 mg daily , labetalol 300 mg PO TID, hydralazine 75 mg q8. Hold parameters. Blood pressure stable. No change in management. 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 Not a candidate for surgical intervention due to recent devastating neuro injury -Acute respiratory failure (now chronic resp failure) secondary to SAH / ICH. s/ p tracheostomy 04/29. Continue DuoNeb q 4 hours as needed -Macroglossia. Tongue edema again secondary to lower teeth biting with remaining upper teeth. S/P extraction of teeth to help reduce tongue edema by Dr Booth. Now with ecchymotic area. Per OMFS, wound care and monitor. Improving. -Chronic mild Transaminitis. CT of the abdomen shows normal liver. Repeat LFTs stable and negative hepatitis profile -Mild protein calorie malnutrition - s/p PEG 04/28. Tolerating tube feeds (Jevity ) at goal of 50 cc/hr (-25-30 kcal/kg/day) -Anemia of chronic inflammation / disease. Hgb stable with no signs of active bleeding -Sepsis secondary to pneumonia and prior UTI - resolved, now off all abx. -Agitation-secondary to brain injury. Continue restraints as needed, still requiring restraints intermittently. Continue low-dose Xanax as needed. On Seroquel 25 mg twice daily, increased nighttime Seroquel dose to 50 mg. Caution with multiple sedating medications, hold parameters placed on Xanax and Lortab. -GI Prophylaxis: oral Zantac q 12. -DVT Prophylaxis - SCDs; Lovenox 40 q day -Rehab: PT / OT. Will eventually need LTACH / SNF 08/19: patient doing well, no acute events, no changes in management, PT reports patient able to ambulate in room today. Discussed with RN, BIOMETRY TEACHER, PT. Discharge Planning Discharge to rehab when arranged, currently no accepting facility. Letty Gore PA-C Aug 19, 2016 14:23 Dee Henderson MD Aug 19, 2016 20:28
[2016-08-19 16:00] VITALS: BP 137/87; PULSE 68; RESP 18; TEMP 99.5; O2SAT 100
[2016-08-19 20:06] VITALS: BP 121/83; PULSE 82; RESP 20; TEMP 98; O2SAT 100
[2016-08-20] VITALS (8 sets, daily range): BP systolic 104–139; BP diastolic 57–84; PULSE 69–80; RESP 16–20; TEMP 96.2–98.7; O2SAT 94–100
[2016-08-20] MEDS: hydrALAZINE HCL 25 MG TAB TUBE SCH ×3 (07:08→20:42)
[2016-08-20] MEDS: LABETALOL HCL 300 MG TAB TUBE SCH ×3 (07:09→20:46)
[2016-08-20] MEDS: CHLORHEXIDINE GLUCONATE 0.12% 30 ML CUP OTHER SCH ×2 (08:19→20:41)
[2016-08-20] MEDS: ENOXAPARIN SODIUM 40 MG/0.4 ML SYRINGE SQ SCH (08:19)
[2016-08-20] MEDS: NYSTAT/DIPHENHY/LIDO MOUTHWASH (Adult) 120ML SWISH-SWAL SCH ×4 (08:20→20:52)
[2016-08-20] MEDS: FAMOTIDINE 20 MG TAB TUBE SCH ×2 (08:20→20:41)
[2016-08-20] MEDS: QUEtiapine FUMARATE 25 MG TAB TUBE SCH ×2 (08:20→20:42)
[2016-08-20] MEDS: SODIUM CHLORIDE 0.9% FLUSH 5 ML FLUSH IVF SCH ×2 (08:21→20:41)
--- NOTE | 2016-08-20 12:37 | HHI.PR ---
Subjective Remarks Follow up for SAH/encephalopathy/tongue edema. The patient is awake, alert, lying in bed with soft restraints and mittens. She denies any medical complaints. Vital signs reviewed, stable. No acute events overnight. Objective Vitals Vital Signs Date Time Temp Pulse Resp B/P Pulse Ox O2 Delivery O2 Flow Rate FiO2 08/20/16 09:25 94 T-piece 6.00 21 08/20/16 08:45 Room Air T-Piece Humidified 08/20/16 08:17 97.9 80 16 106/65 97 08/20/16 06:11 97.1 70 20 137/82 100 08/20/16 02:15 Room Air T-Piece Humidified 08/20/16 00:11 98.7 80 20 106/57 98 08/19/16 20:06 98.0 82 20 121/83 100 08/19/16 19:00 Room Air T-Piece Humidified 08/19/16 16:00 99.5 68 18 137/87 100 I/O 08/19/16 08/19/16 08/19/16 08/20/16 08/20/16 08/20/16 06:59 14:59 22:59 06:59 14:59 22:59 Intake Total 555 ml 221 ml 706 ml 581 ml 71 ml Balance 555 ml 221 ml 706 ml 581 ml 71 ml Tube Feeding 355 ml 221 ml 506 ml 481 ml 71 ml Other 200 ml 200 ml 100 ml # Voids 1 2 0 2 # Bowel Movements 1 2 0 Objective Remarks GENERAL: Well-nourished, well-developed middle aged female patient in [facility]. SKIN: Warm and dry. No rash. HEAD: Normocephalic. Atraumatic. EYES: Pupils equal and round. No scleral icterus. No injection or drainage. ENT: Swollen and protruding tongue; no active bleeding; improving. S/p dental extractions. NECK: Tracheostomy in place. CARDIOVASCULAR: Regular rate and rhythm. S1, S2 noted. 5/6 systolic murmur noted. RESPIRATORY: No accessory muscle use. Clear to auscultation. Breath sounds equal bilaterally. GASTROINTESTINAL: Abdomen soft, non-tender, nondistended. Normoactive bowel sounds x4. Peg in place. MUSCULOSKELETAL: No obvious deformities. Extremities without clubbing, cyanosis , or edema. 2+ b/l pedal pulses. B/l upper extremities in loose restraints and mittens. NEUROLOGICAL: Awake, alert. Nonverbal secondary to tongue edema and tracheostomy however does answer questions by nodding or mouthing the answers, still difficult to understand. Follows simple commands, wiggles toes and has 4/ 5 museum librarian strength on command. Procedures s/p endovascular coiling of MCA ruptured cerebral aneurysm 04/11/16 s/p tracheostomy on 04/29/2016 Dental extractions Medications and IVs Current Medications Medications (Trade) Dose Ordered Sig/Zhanna Route Start Time Stop Time Status Last Admin (NS Flush) 2 ml UNSCH PRN IVF 04/11/16 13:30 (NS Flush) 2 ml BID IVF 04/11/16 21:00 08/20/16 08:21 (Zofran Inj) 4 mg Q6H PRN IV 04/11/16 13:30 05/20/16 04:01 (Lovenox Inj) 40 mg Q24H SQ 05/13/16 09:00 08/20/16 08:19 (Apresoline) 75 mg Q8HR TUBE 05/18/16 22:00 08/20/16 07:08 (Apresoline Inj) 10 mg Q6H PRN IV 07/13/16 21:45 ([place] 5-325 Mg) 2 tab Q6H PRN TUBE 07/15/16 16:15 08/18/16 01:39 (Tylenol 650 Mg/ 20 ml Liq) 650 mg Q4H PRN TUBE 07/15/16 12:30 (Norvasc) 10 mg DAILY TUBE 07/16/16 09:00 08/20/16 08:20 (Catapres) 0.1 mg Q6H PRN TUBE 07/15/16 16:00 (Trandate) 300 mg Q8HR TUBE 07/15/16 14:00 08/20/16 07:09 (Xanax) 0.25 mg Q8H PRN PO 07/23/16 15:45 08/18/16 01:39 (Peridex 0.12% Liq) 30 ml BID OTHER 07/27/16 21:00 08/20/16 08:19 (SEROquel) 50 mg HS TUBE 08/06/16 21:00 08/19/16 21:58 (SEROquel) 25 mg DAILY TUBE 08/07/16 09:00 08/20/16 08:20 ([place] 5-325 Mg) 1 tab Q6H PRN TUBE 08/07/16 16:15 08/12/16 23:01 (Magic Mouthwash Adult Liq) 5 ml QID SWISH-SWAL 08/17/16 18:00 08/31/16 17:59 08/20/16 08:20 (Pepcid) 20 mg Q12HR TUBE 08/17/16 21:00 08/20/16 08:20 Urinary Catheter: No 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 ICD Code: I60.12 Status: Acute (2) Cerebral aneurysm rupture ICD Code: I60.9 Status: Acute (3) Hypertension ICD Code: I10 Status: Chronic (4) Encephalopathy ICD Code: G93.40 Status: Chronic (5) Malnutrition ICD Code: E46 Status: Acute (6) Sequelae of nontraumatic intracerebral hemorrhage ICD Code: I69.10 Status: Chronic (7) 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 s/p Dr. Meléndez performed left decompressive craniotomy 04/25 with evacuation of temporal hematoma. CHILD LIFE SPECIALIST shunt placed 05/07. S/p bone flap on 05/22. The patient has had some improvement and does follow most commands. Improving with PT. -Malignant Hypertension (Hypertensive emergency) on admission -- s/p 3 weeks of Nimotop therapy for vasospasm prevention. in SAH patient. now targeting SBP < 160. Continue Norvasc 10 q day, HCTZ 25 mg daily , labetalol 300 mg PO TID, hydralazine 75 mg q8. Hold parameters. Blood pressure stable. No change in management. 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 Not a candidate for surgical intervention due to recent devastating neuro injury -Acute respiratory failure (now chronic resp failure) secondary to SAH / ICH. s/ p tracheostomy 04/29. Continue DuoNeb q 4 hours as needed -Macroglossia. Tongue edema again secondary to lower teeth biting with remaining upper teeth. S/P extraction of teeth to help reduce tongue edema by Dr Booth. Now with ecchymotic area. Per OMFS, wound care and monitor. Improving. -Chronic mild Transaminitis. CT of the abdomen shows normal liver. Repeat LFTs stable and negative hepatitis profile -Mild protein calorie malnutrition - s/p PEG 04/28. Tolerating tube feeds (Jevity ) at goal of 50 cc/hr (-25-30 kcal/kg/day) -Anemia of chronic inflammation / disease. Hgb stable with no signs of active bleeding -Sepsis secondary to pneumonia and prior UTI - resolved, now off all abx. -Agitation-secondary to brain injury. Continue restraints as needed, still requiring restraints intermittently. Continue low-dose Xanax as needed. On Seroquel 25 mg twice daily, increased nighttime Seroquel dose to 50 mg. Caution with multiple sedating medications, hold parameters placed on Xanax and Lortab. -GI Prophylaxis: oral Zantac q 12. -DVT Prophylaxis - SCDs; Lovenox 40 q day -Rehab: PT / OT. Will eventually need LTACH / SNF 08/20: patient doing well, no acute events, no changes in management. Discharge Planning Discharge to rehab when arranged, currently no accepting facility. Letty Gore PA-C Aug 20, 2016 12:37 Dee Henderson MD Aug 20, 2016 21:36
[2016-08-20] MEDS: ALPRAZolam 0.25 MG TAB PO PRN ×2 (13:51→16:12)
[2016-08-21] VITALS (7 sets, daily range): BP systolic 103–150; BP diastolic 64–82; PULSE 67–86; RESP 18–20; TEMP 96.4–98.4; O2SAT 95–100
[2016-08-21] MEDS: LABETALOL HCL 300 MG TAB TUBE SCH ×3 (05:06→21:29)
[2016-08-21] MEDS: ACETAMINOPHEN/HYDROcodone 325 MG/5 MG TAB TUBE PRN ×2 (05:06→21:27)
[2016-08-21] MEDS: hydrALAZINE HCL 25 MG TAB TUBE SCH ×3 (05:10→21:27)
[2016-08-21] MEDS: QUEtiapine FUMARATE 25 MG TAB TUBE SCH ×2 (07:46→21:26)
[2016-08-21] MEDS: FAMOTIDINE 20 MG TAB TUBE SCH ×2 (07:46→21:26)
[2016-08-21] MEDS: CHLORHEXIDINE GLUCONATE 0.12% 30 ML CUP OTHER SCH ×2 (07:46→21:02)
[2016-08-21] MEDS: SODIUM CHLORIDE 0.9% FLUSH 5 ML FLUSH IVF SCH ×2 (07:47→21:00)
[2016-08-21] MEDS: NYSTAT/DIPHENHY/LIDO MOUTHWASH (Adult) 120ML SWISH-SWAL SCH ×4 (07:47→21:02)
[2016-08-21] MEDS: ENOXAPARIN SODIUM 40 MG/0.4 ML SYRINGE SQ SCH (07:47)
--- NOTE | 2016-08-21 15:11 | HHI.PR ---
Subjective Remarks Follow up for SAH/encephalopathy/tongue edema. Patient is seen sitting in a chair awake and alert. Responsive following commands. Able to keep tongue inside her mouth with her own finger assistance. Denies pain and discomfort. Denies SOB/ dyspnea. Denies chestpain, palpitations, headaches, dizziness. Denies fevers, chills, n/v/d. Objective Vitals Vital Signs Date Time Temp Pulse Resp B/P Pulse Ox O2 Delivery O2 Flow Rate FiO2 08/21/16 12:30 97.2 86 20 109/68 100 08/21/16 09:44 95 T-piece 5.00 21 08/21/16 08:08 96.4 69 18 103/67 99 08/21/16 07:39 Room Air 6.00 28 T-Piece Humidified 08/21/16 05:15 98.4 86 18 150/82 99 08/21/16 02:20 Room Air 6.00 21 T-Piece Humidified 08/21/16 00:30 97.7 68 19 130/64 97 08/20/16 21:47 97 T-piece 6.00 21 08/20/16 21:15 97.1 69 19 139/69 98 08/20/16 16:00 96.2 78 17 126/84 95 I/O 08/20/16 08/20/16 08/20/16 08/21/16 08/21/16 08/21/16 07:00 15:00 23:00 07:00 15:00 23:00 Intake Total 581 ml 71 ml 0 ml 0 ml Balance 581 ml 71 ml 0 ml 0 ml Intake Oral 0 ml 0 ml Tube Feeding 481 ml 71 ml Other 100 ml # Voids 2 4 3 4 # Bowel Movements 0 0 0 Imaging Last Impressions Head CT 05/23/16599 Signed Impressions: Service Date/Time: Monday, May 23, 2016 04:48 - CONCLUSION: 1. The left craniotomy defect has been repaired. 2. Small blood and air in the left subdural space, up to 6 mm in maximal thickness. Subdural drain in place. 3. Evolving encephalomalacia of the left frontal and temporal lobes. 4. 2 mm of rightward midline shift. 5. Shunted. No ventriculomegaly. Fei Hughes MD Chest X-Ray 05/17/16 06 Signed Impressions: Service Date/Time: Tuesday, May 17, 2016 04:59 - CONCLUSION: 1. Minimal basilar atelectasis. Cardiomegaly. Quinn Bateman MD Skull X-Ray 05/08/16 0000 Signed Impressions: Service Date/Time: May 10:16 - CONCLUSION: Shunt set to 70-80 mm H2O. Fei Snyder MD Head CTA 05/02/16 0600 Signed Impressions: Service Date/Time: Monday, May 02, 2016 04:32 - CONCLUSION: Satisfactory appearance post aneurysm coiling Fei Snyder MD Abdomen/Pelvis CT 04/24/16 1416 Signed Impressions: Service Date/Time: March 14:39 - CONCLUSION: Mild small bowel ileus with scattered air-fluid levels. Bibasilar lung consolidation with associated small effusions. Significant soft tissue fluid accumulation with edematous changes throughout the abdominal wall. Nasogastric tube in good position. Saqib Garcia MD Neck CTA 04/11/16 1151 Signed Impressions: Service Date/Time: Monday, April 11, 2016 12:01 - CONCLUSION: Negative for hemodynamically significant carotid stenosis. Ricardo Castellanos MD FACR Cerebral Arteriogram 04/11/16 0000 Signed Impressions: Service Date/Time: Monday, April 11, 2016 14:18 - CONCLUSION: 1. 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 This is the aneurysm felt responsible for the intracranial hemorrhage. 2. Small 4 mm left M1 segment aneurysm. Attempts at embolizing this aneurysm were unsuccessful due to the broad based nature of the aneurysm. Endovascular repair of this aneurysm could not be performed. Kennedy Thibodeaux Jr., MD Objective Remarks GENERAL: Well-nourished, well-developed middle aged female patient in [facility]. SKIN: Warm and dry. No rash. HEAD: Normocephalic. Atraumatic. EYES: Pupils equal and round. No scleral icterus. No injection or drainage. ENT: Swollen and protruding tongue, able to be pulled back in her mouth with use of finger; no active bleeding; improving. S/p dental extractions. NECK: Tracheostomy in place. #6 Shiley CARDIOVASCULAR: Regular rate and rhythm. S1, S2 noted. 5/6 systolic murmur noted. RESPIRATORY: No accessory muscle use. Clear to auscultation. Breath sounds equal bilaterally. GASTROINTESTINAL: Abdomen soft, non-tender, nondistended. Normoactive bowel sounds x4. Peg in place. MUSCULOSKELETAL: No obvious deformities.Bilat lower Extremities without clubbing , cyanosis, or edema. Bilateral upper extremities with trace edema. NEUROLOGICAL: Awake, alert. Nonverbal secondary to tongue edema and tracheostomy however does answer questions by nodding or mouthing the answers, still difficult to understand. Follows commands. Ambulating. 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 s/p Dr. Meléndez performed left decompressive craniotomy 04/25 with evacuation of temporal hematoma. DOFFER shunt placed 05/07. S/p bone flap on 05/22. The patient has had some improvement and does follow most commands. Improving with PT. -Malignant Hypertension (Hypertensive emergency) on admission -- s/p 3 weeks of Nimotop therapy for vasospasm prevention. in SAH patient. now targeting SBP < 160. Continue Norvasc 10 q day, HCTZ 25 mg daily , labetalol 300 mg PO TID, hydralazine 75 mg q8. Hold parameters. Blood pressure stable. No change in management. 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 Not a candidate for surgical intervention due to recent devastating neuro injury -Acute respiratory failure (now chronic resp failure) secondary to SAH / ICH. s/ p tracheostomy 04/29. Continue DuoNeb q 4 hours as needed -Macroglossia. Tongue edema again secondary to lower teeth biting with remaining upper teeth. S/P extraction of teeth to help reduce tongue edema by Dr Booth. Per OMFS, wound care and monitor. Improving. Able to retract tongue inside her mouth with help of her finger. -Chronic mild Transaminitis. CT of the abdomen shows normal liver. Repeat LFTs stable and negative hepatitis profile -Mild protein calorie malnutrition - s/p PEG 04/28. Tolerating tube feeds (Jevity ) at goal of 50 cc/hr (-25-30 kcal/kg/day) -Anemia of chronic inflammation / disease. Hgb stable with no signs of active bleeding -Sepsis secondary to pneumonia and prior UTI - resolved, now off all abx. -Agitation-secondary to brain injury. Continue restraints as needed, still requiring restraints intermittently. Continue low-dose Xanax as needed. On Seroquel 25 mg twice daily, increased nighttime Seroquel dose to 50 mg. Caution with multiple sedating medications, hold parameters placed on Xanax and Lortab. -GI Prophylaxis: oral Zantac q 12. -DVT Prophylaxis - SCDs; Lovenox 40 q day -Rehab: PT / OT. Will eventually need LTACH / SNF. Ambulating in the hallway as per physical therapy. Have been increasing in her activities and tolerating it 08/21/16: patient doing well, no acute events, no changes in management. Continue with strengthening exercises with PT/OT. Written by Aidan Husain, acting as scribe for Dr. Howard on 08/21/16 at 14: 20. The documentation accurately reflects the work performed [id number] by me on 08/21/16 at 1420 Discharge Planning Discharge to rehab when arranged, currently no accepting facility. Aidan Thompson Aug 21, 2016 15:11 Michael Howard MD Aug 21, 2016 16:03
[2016-08-22] VITALS (8 sets, daily range): BP systolic 104–133; BP diastolic 58–79; PULSE 64–83; RESP 16–20; TEMP 97–98.5; O2SAT 96–100
[2016-08-22] MEDS: LABETALOL HCL 300 MG TAB TUBE SCH ×3 (07:18→22:03)
[2016-08-22] MEDS: hydrALAZINE HCL 25 MG TAB TUBE SCH ×3 (07:18→22:03)
[2016-08-22] MEDS: CHLORHEXIDINE GLUCONATE 0.12% 30 ML CUP OTHER SCH ×2 (09:00→22:01)
[2016-08-22] MEDS: SODIUM CHLORIDE 0.9% FLUSH 5 ML FLUSH IVF SCH ×2 (09:00→21:00)
[2016-08-22] MEDS: NYSTAT/DIPHENHY/LIDO MOUTHWASH (Adult) 120ML SWISH-SWAL SCH ×4 (09:00→21:00)
[2016-08-22] MEDS: QUEtiapine FUMARATE 25 MG TAB TUBE SCH ×2 (09:37→22:02)
[2016-08-22] MEDS: FAMOTIDINE 20 MG TAB TUBE SCH ×2 (09:37→22:02)
[2016-08-22] MEDS: ENOXAPARIN SODIUM 40 MG/0.4 ML SYRINGE SQ SCH (09:38)
--- NOTE | 2016-08-22 09:59 | HHI.PR ---
Subjective Remarks Follow up for SAH/encephalopathy/tongue edema. Patient is seen today. Responsive following commands. As per staff, no issues overnight. Denies pain and discomfort. Denies SOB/ dyspnea. Denies chest pain, palpitations, headaches, dizziness. Denies fevers, chills, n/v/d. Objective Vitals Vital Signs Date Time Temp Pulse Resp B/P Pulse Ox O2 Delivery O2 Flow Rate FiO2 08/22/16 08:01 98.5 72 19 104/66 99 08/22/16 07:53 96 21 08/22/16 05:40 97.9 64 18 110/58 100 08/22/16 00:40 98.1 69 16 125/68 99 08/21/16 22:27 18 08/21/16 20:45 97.1 67 19 138/64 98 08/21/16 20:00 99 Room Air 6.00 28 T-Piece Humidified 08/21/16 19:00 Room Air 6.00 28 T-Piece Humidified 08/21/16 17:19 98.0 80 18 115/74 99 08/21/16 12:30 97.2 86 20 109/68 100 I/O 08/21/16 08/21/16 08/21/16 08/22/16 08/22/16 08/22/16 07:00 15:00 23:00 07:00 15:00 23:00 Intake Total 0 ml 1077 ml 0 ml Balance 0 ml 1077 ml 0 ml Intake Oral 0 ml 0 ml 0 ml Tube Feeding 1077 ml # Voids 4 3 2 # Bowel Movements 0 0 0 Imaging Last Impressions Head CT 05/23/16 0600 Signed Impressions: Service Date/Time: Monday, May 23, 2016 04:48 - CONCLUSION: 1. The left craniotomy defect has been repaired. 2. Small blood and air in the left subdural space, up to 6 mm in maximal thickness. Subdural drain in place. 3. Evolving encephalomalacia of the left frontal and temporal lobes. 4. 2 mm of rightward midline shift. 5. Shunted. No ventriculomegaly. Fei Hughes MD Chest X-Ray 05/17/16 0600 Signed Impressions: Service Date/Time: Tuesday, May 17, 2016 04:59 - CONCLUSION: 1. Minimal basilar atelectasis. Cardiomegaly. Quinn Bateman MD Skull X-Ray 05/08/16 0000 Signed Impressions: Service Date/Time: May 10:16 - CONCLUSION: Shunt set to 70-80 mm H2O. Fei Snyder MD Head CTA 05/02/16 0600 Signed Impressions: Service Date/Time: Monday, May 02, 2016 04:32 - CONCLUSION: Satisfactory appearance post aneurysm coiling Fei Snyder MD Abdomen/Pelvis CT 04/24/16 1416 Signed Impressions: Service Date/Time: March 14:39 - CONCLUSION: Mild small bowel ileus with scattered air-fluid levels. Bibasilar lung consolidation with associated small effusions. Significant soft tissue fluid accumulation with edematous changes throughout the abdominal wall. Nasogastric tube in good position. Saqib Garcia MD Neck CTA 04/11/16 1151 Signed Impressions: Service Date/Time: Monday, April 11, 2016 12:01 - CONCLUSION: Negative for hemodynamically significant carotid stenosis. Ricardo Castellanos MD FACR Cerebral Arteriogram 04/11/16 0000 Signed Impressions: Service Date/Time: Monday, April 11, 2016 14:18 - CONCLUSION: 1. 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 This is the aneurysm felt responsible for the intracranial hemorrhage. 2. Small 4 mm left M1 segment aneurysm. Attempts at embolizing this aneurysm were unsuccessful due to the broad based nature of the aneurysm. Endovascular repair of this aneurysm could not be performed. Kennedy Thibodeaux Jr., MD Objective Remarks GENERAL: Well-nourished, well-developed middle aged female patient in [facility]. SKIN: Warm and dry. No rash. HEAD: Normocephalic. Atraumatic. EYES: Pupils equal and round. No scleral icterus. No injection or drainage. ENT: Swollen and protruding tongue, able to be pulled back in her mouth with use of finger; no active bleeding; improving. S/p dental extractions. NECK: Tracheostomy in place. #6 Shiley CARDIOVASCULAR: Regular rate and rhythm. S1, S2 noted. 5/6 systolic murmur noted. RESPIRATORY: No accessory muscle use. Clear to auscultation. Breath sounds equal bilaterally. GASTROINTESTINAL: Abdomen soft, non-tender, nondistended. Normoactive bowel sounds x4. Peg in place. MUSCULOSKELETAL: No obvious deformities.Bilat lower Extremities without clubbing , cyanosis, or edema. Bilateral upper extremities with trace edema. NEUROLOGICAL: Awake, alert. Nonverbal secondary to tongue edema and tracheostomy however does answer questions by nodding or mouthing the answers, still difficult to understand. Follows commands. Ambulating. Procedures s/p endovascular coiling of MCA ruptured cerebral aneurysm 04/11/16 s/p tracheostomy on 04/29/2016 Dental extractions Urinary Catheter: No Vascular Central Line Catheter: No 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 ICD Code: I60.12 Status: Acute (2) Cerebral aneurysm rupture ICD Code: I60.9 Status: Acute (3) Hypertension ICD Code: I10 Status: Chronic (4) Encephalopathy ICD Code: G93.40 Status: Chronic (5) Malnutrition ICD Code: E46 Status: Acute (6) Sequelae of nontraumatic intracerebral hemorrhage ICD Code: I69.10 Status: Chronic (7) 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 s/p Dr. Meléndez performed left decompressive craniotomy 04/25 with evacuation of temporal hematoma. DISTRIBUT[employer] SUPERVISOR shunt placed 05/07. S/p bone flap on 05/22. The patient has had some improvement and does follow most commands. Improving with PT. -Malignant Hypertension (Hypertensive emergency) on admission -- s/p 3 weeks of Nimotop therapy for vasospasm prevention. in SAH patient. now targeting SBP < 160. Continue Norvasc 10 q day, HCTZ 25 mg daily , labetalol 300 mg PO TID, hydralazine 75 mg q8. Hold parameters. Blood pressure stable. No change in management. 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 Not a candidate for surgical intervention due to recent devastating neuro injury -Acute respiratory failure (now chronic resp failure) secondary to SAH / ICH. s/ p tracheostomy 04/29. Continue DuoNeb q 4 hours as needed -Macroglossia. Tongue edema again secondary to lower teeth biting with remaining upper teeth. S/P extraction of teeth to help reduce tongue edema by Dr Booth. Without ecchymotic area. Per OMFS, wound care and monitor. Improving. Able to retract tongue inside her mouth with help of her finger. -Chronic mild Transaminitis. CT of the abdomen shows normal liver. Repeat LFTs stable and negative hepatitis profile -Mild protein calorie malnutrition - s/p PEG 04/28. Tolerating tube feeds (Jevity ) at goal of 60 cc/hr (-25-30 kcal/kg/day). Might need bolus feedings to increase activity OOB vs continuous feedings vs overnight feedings only. -Anemia of chronic inflammation / disease. Hgb stable with no signs of active bleeding -Sepsis secondary to pneumonia and prior UTI - resolved, now off all abx. -Agitation-secondary to brain injury. Continue restraints as needed, still requiring restraints intermittently. Continue low-dose Xanax as needed. On Seroquel 25 mg twice daily, increased nighttime Seroquel dose to 50 mg. Caution with multiple sedating medications, hold parameters placed on Xanax and Lortab. -GI Prophylaxis: oral Zantac q 12. -DVT Prophylaxis - SCDs; Lovenox 40 q day -Rehab: PT / OT. Will eventually need LTACH / SNF. Ambulating in the hallway as per physical therapy. Have been increasing in her activities and tolerating it 08/22/16: patient doing well, no acute events, no changes in management. Continue with strengthening exercises with PT/OT. - Dietary consult for possible tube feed boluses vs continuous feeding for increase activities. Discuss with patient, nursing, and Dr. Howard Discharge Planning Discharge to rehab when arranged, currently no accepting facility. Aidan Thompson Aug 22, 2016 09:59 Michael Howard MD Aug 22, 2016 15:54
[2016-08-22] MEDS: ACETAMINOPHEN/HYDROcodone 325 MG/5 MG TAB TUBE PRN (22:03)
[2016-08-23] VITALS (8 sets, daily range): BP systolic 101–134; BP diastolic 64–84; PULSE 63–84; RESP 16–20; TEMP 96.2–97.8; O2SAT 96–100
[2016-08-23] MEDS: hydrALAZINE HCL 25 MG TAB TUBE SCH ×3 (05:27→22:30)
[2016-08-23] MEDS: LABETALOL HCL 300 MG TAB TUBE SCH ×3 (05:27→22:31)
[2016-08-23] MEDS: SODIUM CHLORIDE 0.9% FLUSH 5 ML FLUSH IVF SCH ×2 (09:00→21:00)
[2016-08-23] MEDS: NYSTAT/DIPHENHY/LIDO MOUTHWASH (Adult) 120ML SWISH-SWAL SCH ×4 (09:00→21:00)
--- NOTE | 2016-08-23 09:29 | HHI.PR ---
Subjective Remarks Follow up for SAH/encephalopathy/tongue edema. Patient is seen today. Responsive following commands. Tracheostomy open to air. Occasional coughing, unable to expectorate, needs occasional suctioning. Denies pain and discomfort. Denies SOB/ dyspnea. Denies chest pain, palpitations, headaches, dizziness. Denies fevers, chills, n/v/d. As per staff, no acute issues overnight. Objective Vitals Vital Signs Date Time Temp Pulse Resp B/P Pulse Ox O2 Delivery O2 Flow Rate FiO2 08/23/16 07:10 96.3 70 20 105/64 100 08/23/16 04:00 97.1 72 20 130/81 100 08/23/16 00:00 96.9 63 20 101/64 98 08/22/16 21:25 97 T-piece 21 08/22/16 20:00 97.0 77 20 133/79 100 08/22/16 20:00 100 T-Piece 6.00 28 Humidified 08/22/16 16:00 97.8 80 18 113/72 98 08/22/16 12:00 97.7 83 17 106/64 96 I/O 08/22/16 08/22/16 08/22/16 08/23/16 08/23/16 08/23/16 07:00 15:00 23:00 07:00 15:00 23:00 Intake Total 0 ml Balance 0 ml Intake Oral 0 ml # Voids 2 4 1 # Bowel Movements 0 0 0 Imaging Last Impressions Head CT 05/23/16 0600 Signed Impressions: Service Date/Time: Monday, May 23, 2016 04:48 - CONCLUSION: 1. The left craniotomy defect has been repaired. 2. Small blood and air in the left subdural space, up to 6 mm in maximal thickness. Subdural drain in place. 3. Evolving encephalomalacia of the left frontal and temporal lobes. 4. 2 mm of rightward midline shift. 5. Shunted. No ventriculomegaly. Fei Hughes MD Chest X-Ray 05/17/16 0600 Signed Impressions: Service Date/Time: Tuesday, May 17, 2016 04:59 - CONCLUSION: 1. Minimal basilar atelectasis. Cardiomegaly. Quinn Bateman MD Skull X-Ray 05/08/16 0000 Signed Impressions: Service Date/Time: May 10:16 - CONCLUSION: Shunt set to 70-80 mm H2O. Fei Snyder MD Head CTA 05/02/16 0600 Signed Impressions: Service Date/Time: Monday, May 02, 2016 04:32 - CONCLUSION: Satisfactory appearance post aneurysm coiling Fei Snyder MD Abdomen/Pelvis CT 04/24/16 1416 Signed Impressions: Service Date/Time: March 14:39 - CONCLUSION: Mild small bowel ileus with scattered air-fluid levels. Bibasilar lung consolidation with associated small effusions. Significant soft tissue fluid accumulation with edematous changes throughout the abdominal wall. Nasogastric tube in good position. Saqib Garcia MD Neck CTA 04/11/16 1151 Signed Impressions: Service Date/Time: Monday, April 11, 2016 12:01 - CONCLUSION: Negative for hemodynamically significant carotid stenosis. Ricardo Castellanos MD FACR Cerebral Arteriogram 04/11/16 0000 Signed Impressions: Service Date/Time: Monday, April 11, 2016 14:18 - CONCLUSION: 1. 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 This is the aneurysm felt responsible for the intracranial hemorrhage. 2. Small 4 mm left M1 segment aneurysm. Attempts at embolizing this aneurysm were unsuccessful due to the broad based nature of the aneurysm. Endovascular repair of this aneurysm could not be performed. Kennedy Thibodeaux Jr., MD Objective Remarks GENERAL: Well-nourished, well-developed middle aged female patient in [facility]. SKIN: Warm and dry. No rash. HEAD: Normocephalic. Atraumatic. EYES: Pupils equal and round. No scleral icterus. No injection or drainage. ENT: Swollen and protruding tongue, able to be pulled back in her mouth with use of finger; no active bleeding; improving. S/p dental extractions. NECK: Tracheostomy in place. #6 Shiley CARDIOVASCULAR: Regular rate and rhythm. S1, S2 noted. 5/6 systolic murmur noted. RESPIRATORY: No accessory muscle use. Clear to auscultation. Breath sounds equal bilaterally. GASTROINTESTINAL: Abdomen soft, non-tender, nondistended. Normoactive bowel sounds x4. Peg in place. MUSCULOSKELETAL: No obvious deformities.Bilat lower Extremities without clubbing , cyanosis, or edema. Bilateral upper extremities with trace edema. NEUROLOGICAL: Awake, alert. Nonverbal secondary to tongue edema and tracheostomy however does answer questions by nodding or mouthing the answers, still difficult to understand. Follows commands. Ambulating. 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 Paramedics arrived and she was ventilated with bag mask. She was endotracheal intubated in the emergency department where a head CT showed a large left hemispheric intraparenchymal hemorrhage with subarachnoid blood. Subsequent CTA revealed a left middle cerebral aneurysm. -Acute subarachnoid hemorrhage (left middle cerebral artery aneurysm)-- s/p endovascular coiling of MCA ruptured cerebral aneurysm 04/11 -Large left frontal hemorrhage with Intracranial hypertension with devastating neurologic injury- Patient with significant dominant hemisphere frontal temporal lobe hemorrhage and consequent cerebral injury and has had no meaningful neurologic recovery. s/p Dr. Meléndez performed left decompressive craniotomy 04/25 with evacuation of temporal hematoma. OFFICE ASST shunt placed 05/07. S/p bone flap on 05/22. The patient has had some improvement and does follow most commands. Improving with PT. -Malignant Hypertension (Hypertensive emergency) on admission -- s/p 3 weeks of Nimotop therapy for vasospasm prevention. in SAH patient. now targeting SBP < 160. Continue Norvasc 10 q day, HCTZ 25 mg daily , labetalol 300 mg PO TID, hydralazine 75 mg q8. Hold parameters. Blood pressure stable. No change in management. 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 Not a candidate for surgical intervention due to recent devastating neuro injury -Acute respiratory failure (now chronic resp failure) secondary to SAH / ICH. s/ p tracheostomy 04/29. Continue DuoNeb q 4 hours as needed -Macroglossia. Tongue edema again secondary to lower teeth biting with remaining upper teeth. S/P extraction of teeth to help reduce tongue edema by Dr Booth. Without ecchymotic area. Per OMFS, wound care and monitor. Improving. Able to retract tongue inside her mouth with help of her finger. -Chronic mild Transaminitis. CT of the abdomen shows normal liver. Repeat LFTs stable and negative hepatitis profile -Mild protein calorie malnutrition - s/p PEG 04/28. Tolerating tube feeds (Jevity ) at goal of 60 cc/hr (-25-30 kcal/kg/day). Dietary recommendation bolus feedings to start. - Monitor for tolerance. -Anemia of chronic inflammation / disease. Hgb stable with no signs of active bleeding -Sepsis secondary to pneumonia and prior UTI - resolved, now off all abx. -Agitation-secondary to brain injury. Continue restraints as needed, still requiring restraints intermittently. Continue low-dose Xanax as needed. On Seroquel 25 mg twice daily, increased nighttime Seroquel dose to 50 mg. Caution with multiple sedating medications, hold parameters placed on Xanax and Lortab. -GI Prophylaxis: oral Zantac q 12. -DVT Prophylaxis - SCDs; Lovenox 40 q day -Rehab: PT / OT. Will eventually need LTACH / SNF. Ambulating in the hallway as per physical therapy. Have been increasing in her activities and tolerating it 08/23/16: Patient doing well, no acute events, no changes in management. Continue with strengthening exercises with PT/OT. - Dietary consulted, tube feed bolus feeding to start for increase activities. Will monitor for tolerance. Discuss with patient, nursing, and Dr. Howard Discharge Planning Discharge to rehab when arranged, currently no accepting facility. Aidan Thompson Aug 23, 2016 09:29
[2016-08-23] MEDS: FAMOTIDINE 20 MG TAB TUBE SCH ×2 (09:53→22:31)
[2016-08-23] MEDS: ENOXAPARIN SODIUM 40 MG/0.4 ML SYRINGE SQ SCH (09:53)
[2016-08-23] MEDS: CHLORHEXIDINE GLUCONATE 0.12% 30 ML CUP OTHER SCH ×2 (09:53→22:32)
[2016-08-23] MEDS: QUEtiapine FUMARATE 25 MG TAB TUBE SCH ×2 (09:53→22:31)
[2016-08-23] MEDS: ALPRAZolam 0.25 MG TAB PO PRN (22:31)
[2016-08-23] MEDS: ACETAMINOPHEN/HYDROcodone 325 MG/5 MG TAB TUBE PRN (22:32)
[2016-08-24] VITALS (9 sets, daily range): BP systolic 110–152; BP diastolic 64–85; PULSE 60–76; RESP 14–20; TEMP 95.5–98.7; O2SAT 70–100
[2016-08-24] MEDS: LABETALOL HCL 300 MG TAB TUBE SCH ×3 (06:13→20:38)
[2016-08-24] MEDS: hydrALAZINE HCL 25 MG TAB TUBE SCH ×3 (06:13→20:39)
[2016-08-24] MEDS: FAMOTIDINE 20 MG TAB TUBE SCH ×2 (08:23→20:39)
[2016-08-24] MEDS: CHLORHEXIDINE GLUCONATE 0.12% 30 ML CUP OTHER SCH ×2 (08:23→20:36)
[2016-08-24] MEDS: QUEtiapine FUMARATE 25 MG TAB TUBE SCH ×2 (08:23→20:39)
[2016-08-24] MEDS: SODIUM CHLORIDE 0.9% FLUSH 5 ML FLUSH IVF SCH ×2 (08:24→20:35)
[2016-08-24] MEDS: ENOXAPARIN SODIUM 40 MG/0.4 ML SYRINGE SQ SCH (08:24)
[2016-08-24] MEDS: NYSTAT/DIPHENHY/LIDO MOUTHWASH (Adult) 120ML SWISH-SWAL SCH ×4 (08:24→20:36)
--- NOTE | 2016-08-24 09:49 | HHI.PR ---
Subjective Remarks Follow up for SAH/encephalopathy/tongue edema. Patient is seen today. Responsive following commands. Tracheostomy open to air. Drowsy. As per RN, patient tolerating bolus feedings and stayed up late last night, no issues overnight. Denies pain and discomfort. Denies SOB/ dyspnea. Denies chest pain , palpitations, headaches, dizziness. Denies fevers, chills, n/v/d. Objective Vitals Vital Signs Date Time Temp Pulse Resp B/P Pulse Ox O2 Delivery O2 Flow Rate FiO2 08/24/16 07:30 99 T-piece 21 08/24/16 07:10 95.5 71 18 110/73 100 08/24/16 06:12 152/85 08/24/16 04:00 97.8 60 14 128/70 100 08/24/16 00:00 98.7 70 20 130/80 70 08/23/16 23:25 T-Piece 6.00 28 08/23/16 21:24 99 21 08/23/16 20:00 97.8 74 16 134/84 99 08/23/16 16:43 97.6 84 20 121/78 96 08/23/16 12:00 96.2 83 20 116/73 100 08/23/16 09:53 99 21 I/O 08/23/16 08/23/16 08/23/16 08/24/16 08/24/16 08/24/16 06:59 14:59 22:59 06:59 14:59 22:59 # Voids 3 2 # Bowel Movements 1 1 Imaging Last Impressions Head CT 05/23/16 0600 Signed Impressions: Service Date/Time: Monday, May 23, 2016 04:48 - CONCLUSION: 1. The left craniotomy defect has been repaired. 2. Small blood and air in the left subdural space, up to 6 mm in maximal thickness. Subdural drain in place. 3. Evolving encephalomalacia of the left frontal and temporal lobes. 4. 2 mm of rightward midline shift. 5. Shunted. No ventriculomegaly. Fei Hughes MD Chest X-Ray 05/17/16 0600 Signed Impressions: Service Date/Time: Tuesday, May 17, 2016 04:59 - CONCLUSION: 1. Minimal basilar atelectasis. Cardiomegaly. Quinn Bateman MD Skull X-Ray 05/08/16 0000 Signed Impressions: Service Date/Time: May 10:16 - CONCLUSION: Shunt set to 70-80 mm H2O. Fei Snyder MD Head CTA 05/02/16 0600 Signed Impressions: Service Date/Time: Monday, May 02, 2016 04:32 - CONCLUSION: Satisfactory appearance post aneurysm coiling Fei Snyder MD Abdomen/Pelvis CT 04/24/16 1416 Signed Impressions: Service Date/Time: March 14:39 - CONCLUSION: Mild small bowel ileus with scattered air-fluid levels. Bibasilar lung consolidation with associated small effusions. Significant soft tissue fluid accumulation with edematous changes throughout the abdominal wall. Nasogastric tube in good position. Saqib Garcia MD Neck CTA 04/11/16 1151 Signed Impressions: Service Date/Time: Monday, April 11, 2016 12:01 - CONCLUSION: Negative for hemodynamically significant carotid stenosis. Ricardo Castellanos MD FACR Cerebral Arteriogram 04/11/16 0000 Signed Impressions: Service Date/Time: Monday, April 11, 2016 14:18 - CONCLUSION: 1. 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 This is the aneurysm felt responsible for the intracranial hemorrhage. 2. Small 4 mm left M1 segment aneurysm. Attempts at embolizing this aneurysm were unsuccessful due to the broad based nature of the aneurysm. Endovascular repair of this aneurysm could not be performed. Kennedy Thibodeaux Jr., MD Objective Remarks GENERAL: Well-nourished, well-developed middle aged female patient in [facility]. SKIN: Warm and dry. No rash. HEAD: Normocephalic. Atraumatic. EYES: Pupils equal and round. No scleral icterus. No injection or drainage. ENT: Swollen and protruding tongue, able to be pulled back in her mouth with use of finger; no active bleeding; improving. S/p dental extractions. NECK: Tracheostomy in place. #6 Shiley CARDIOVASCULAR: Regular rate and rhythm. S1, S2 noted. 5/6 systolic murmur noted. RESPIRATORY: No accessory muscle use. Clear to auscultation. Breath sounds equal bilaterally. GASTROINTESTINAL: Abdomen soft, non-tender, nondistended. Normoactive bowel sounds x4. Peg in place. MUSCULOSKELETAL: No obvious deformities.Bilat lower Extremities without clubbing , cyanosis, or edema. Bilateral upper extremities with trace edema. NEUROLOGICAL: Awake, alert. Nonverbal secondary to tongue edema and tracheostomy however does answer questions by nodding or mouthing the answers, still difficult to understand. Follows commands. Ambulating. Procedures s/p endovascular coiling of MCA ruptured cerebral aneurysm 04/11/16 s/p tracheostomy on 04/29/2016 Dental extractions Urinary Catheter: No Vascular Central Line Catheter: No 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 ICD Code: I60.12 Status: Acute (2) Cerebral aneurysm rupture ICD Code: I60.9 Status: Acute (3) Hypertension ICD Code: I10 Status: Chronic (4) Encephalopathy ICD Code: G93.40 Status: Chronic (5) Malnutrition ICD Code: E46 Status: Acute (6) Sequelae of nontraumatic intracerebral hemorrhage ICD Code: I69.10 Status: Chronic (7) 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 Paramedics arrived and she was ventilated with bag mask. She was endotracheal intubated in the emergency department where a head CT showed a large left hemispheric intraparenchymal hemorrhage with subarachnoid blood. Subsequent CTA revealed a left middle cerebral aneurysm. -Acute subarachnoid hemorrhage (left middle cerebral artery aneurysm)-- s/p endovascular coiling of MCA ruptured cerebral aneurysm 04/11 -Large left frontal hemorrhage with Intracranial hypertension with devastating neurologic injury- Patient with significant dominant hemisphere frontal temporal lobe hemorrhage and consequent cerebral injury and has had no meaningful neurologic recovery. s/p Dr. Meléndez performed left decompressive craniotomy 04/25 with evacuation of temporal hematoma. CABLE REELER shunt placed 05/07. S/p bone flap on 05/22. The patient has had some improvement and does follow most commands. Improving with PT. -Malignant Hypertension (Hypertensive emergency) on admission -- s/p 3 weeks of Nimotop therapy for vasospasm prevention. in SAH patient. now targeting SBP < 160. Continue Norvasc 10 q day, HCTZ 25 mg daily , labetalol 300 mg PO TID, hydralazine 75 mg q8. Hold parameters. Blood pressure stable. No change in management. 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 Not a candidate for surgical intervention due to recent devastating neuro injury -Acute respiratory failure (now chronic resp failure) secondary to SAH / ICH. s/ p tracheostomy 04/29. Continue DuoNeb q 4 hours as needed -Macroglossia. Tongue edema again secondary to lower teeth biting with remaining upper teeth. S/P extraction of teeth to help reduce tongue edema by Dr Booth. Without ecchymotic area. Per OMFS, wound care and monitor. Improving. Able to retract tongue inside her mouth with help of her finger. -Chronic mild Transaminitis. CT of the abdomen shows normal liver. Repeat LFTs stable and negative hepatitis profile -Mild protein calorie malnutrition - s/p PEG 04/28. Tolerating tube feeds (Jevity ) at goal of 60 cc/hr (-25-30 kcal/kg/day). Dietary recommendation bolus feedings to start. - Patient tolerating bolus feedings. -Anemia of chronic inflammation / disease. Hgb stable with no signs of active bleeding -Sepsis secondary to pneumonia and prior UTI - resolved, now off all abx. -Agitation-secondary to brain injury. Continue restraints as needed, still requiring restraints intermittently. Continue low-dose Xanax as needed. On Seroquel 25 mg twice daily, increased nighttime Seroquel dose to 50 mg. Caution with multiple sedating medications, hold parameters placed on Xanax and Lortab. Increase activities being OOB to chair and ambulation can possibly decrease pt. agitation and restlessness. -GI Prophylaxis: oral Zantac q 12. -DVT Prophylaxis - SCDs; Lovenox 40 q day -Rehab: PT / OT. Will eventually need LTACH / SNF. Ambulating in the hallway as per physical therapy. Have been increasing in her activities and tolerating it. 08/24/16: Patient doing well, no acute events, no changes in management. Continue with strengthening exercises with PT/OT. - Tolerating bolus feeds. Recommended to RN sit patient in chair outside room to decrease restlessness and agitation when she is more awake. Discuss with patient, RN nursing, and Dr. Howard Discharge Planning Discharge to rehab when arranged, currently no accepting facility. Aidan Thompson Aug 24, 2016 09:49 Michael Howard MD Aug 24, 2016 10:51
[2016-08-25] VITALS (8 sets, daily range): BP systolic 103–128; BP diastolic 61–81; PULSE 71–98; RESP 18–20; TEMP 97–99.2; O2SAT 59–100
[2016-08-25] MEDS: LABETALOL HCL 300 MG TAB TUBE SCH ×3 (05:09→21:57)
[2016-08-25] MEDS: hydrALAZINE HCL 25 MG TAB TUBE SCH ×3 (05:09→21:57)
[2016-08-25] MEDS: ALPRAZolam 0.25 MG TAB PO PRN (05:09)
[2016-08-25] MEDS: CHLORHEXIDINE GLUCONATE 0.12% 30 ML CUP OTHER SCH ×2 (08:49→21:58)
[2016-08-25] MEDS: SODIUM CHLORIDE 0.9% FLUSH 5 ML FLUSH IVF SCH ×2 (08:50→21:48)
[2016-08-25] MEDS: ENOXAPARIN SODIUM 40 MG/0.4 ML SYRINGE SQ SCH (08:51)
[2016-08-25] MEDS: FAMOTIDINE 20 MG TAB TUBE SCH ×2 (08:55→21:57)
[2016-08-25] MEDS: QUEtiapine FUMARATE 25 MG TAB TUBE SCH ×2 (08:55→21:58)
[2016-08-25] MEDS: NYSTAT/DIPHENHY/LIDO MOUTHWASH (Adult) 120ML SWISH-SWAL SCH ×4 (08:57→21:48)
--- NOTE | 2016-08-25 10:49 | HHI.PR ---
Subjective Remarks Sleepy, appears in nad. No complaints. Objective Vitals Vital Signs Date Time Temp Pulse Resp B/P Pulse Ox O2 Delivery O2 Flow Rate FiO2 08/25/16 08:00 98.7 88 18 112/79 99 08/25/16 04:00 97.0 71 18 110/61 98 08/25/16 01:00 97.0 83 18 128/78 95 08/24/16 21:39 T-Piece 6.00 28 08/24/16 20:00 97.0 74 18 125/81 98 08/24/16 19:00 T-Piece 6.00 28 08/24/16 17:49 98 21 08/24/16 16:25 98.0 76 18 125/64 98 08/24/16 11:47 96.7 65 20 136/73 100 I/O 08/24/16 08/24/16 08/24/16 08/25/16 08/25/16 08/25/16 07:00 15:00 23:00 07:00 15:00 23:00 Intake Total 420 ml 50 ml Balance 420 ml 50 ml IV Total 0 ml 0 ml Tube Feeding 320 ml Tube Irrigant 100 ml 50 ml # Voids 2 1 6 # Bowel Movements 0 2 1 Imaging Last Impressions Head CT 05/23/16599 Signed Impressions: Service Date/Time: Monday, May 23, 2016 04:48 - CONCLUSION: 1. The left craniotomy defect has been repaired. 2. Small blood and air in the left subdural space, up to 6 mm in maximal thickness. Subdural drain in place. 3. Evolving encephalomalacia of the left frontal and temporal lobes. 4. 2 mm of rightward midline shift. 5. Shunted. No ventriculomegaly. Fei Hughes MD Chest X-Ray 05/17/16 06 Signed Impressions: Service Date/Time: Tuesday, May 17, 2016 04:59 - CONCLUSION: 1. Minimal basilar atelectasis. Cardiomegaly. Quinn Bateman MD Skull X-Ray 05/08/16 0000 Signed Impressions: Service Date/Time: May 10:16 - CONCLUSION: Shunt set to 70-80 mm H2O. Fei Snyder MD Head CTA 05/02/16 06 Signed Impressions: Service Date/Time: Monday, May 02, 2016 04:32 - CONCLUSION: Satisfactory appearance post aneurysm coiling Fie Snyder MD Abdomen/Pelvis CT 04/24/16 1416 Signed Impressions: Service Date/Time: March 14:39 - CONCLUSION: Mild small bowel ileus with scattered air-fluid levels. Bibasilar lung consolidation with associated small effusions. Significant soft tissue fluid accumulation with edematous changes throughout the abdominal wall. Nasogastric tube in good position. Saqib Garcia MD Neck CTA 04/11/16 1151 Signed Impressions: Service Date/Time: Monday, April 11, 2016 12:01 - CONCLUSION: Negative for hemodynamically significant carotid stenosis. Ricardo Castellanos MD FACR Cerebral Arteriogram 04/11/16 0000 Signed Impressions: Service Date/Time: Monday, April 11, 2016 14:18 - CONCLUSION: 1. 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 This is the aneurysm felt responsible for the intracranial hemorrhage. 2. Small 4 mm left M1 segment aneurysm. Attempts at embolizing this aneurysm were unsuccessful due to the broad based nature of the aneurysm. Endovascular repair of this aneurysm could not be performed. Kennedy Thibodeaux Jr., MD Objective Remarks GENERAL: Well-developed well-nourished. Currently calm and in 4 point restraints. Tongue extruding. doesn't appear in acute distress, however appears chronically ill patient. SKIN: Warm and dry. No lesions noted. HEENT: Normocephalic. Pupils equal and round. Swollen and protruding tongue with right lateral scab present. Edentulous. CARDIOVASCULAR: Regular rate and rhythm. 5/6 systolic murmur appreciated. RESPIRATORY: No accessory muscle use. Clear to auscultation. Breath sounds equal bilaterally. GASTROINTESTINAL: Abdomen soft, non-tender, nondistended. Bowel sounds x4. PEG in place. MUSCULOSKELETAL: No obvious deformities. No clubbing or cyanosis. No edema. NEUROLOGICAL: Awake and alert. Nonverbal secondary to tongue edema and tracheostomy. 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 Paramedics arrived and she was ventilated with bag mask. She was endotracheal intubated in the emergency department where a head CT showed a large left hemispheric intraparenchymal hemorrhage with subarachnoid blood. Subsequent CTA revealed a left middle cerebral aneurysm. -Acute subarachnoid hemorrhage (left middle cerebral artery aneurysm)-- s/p endovascular coiling of MCA ruptured cerebral aneurysm 04/11 -Large left frontal hemorrhage with Intracranial hypertension with devastating neurologic injury- Patient with significant dominant hemisphere frontal temporal lobe hemorrhage and consequent cerebral injury and has had no meaningful neurologic recovery. s/p Dr. Meléndez performed left decompressive craniotomy 04/25 with evacuation of temporal hematoma. GEOLOGICAL [employer]IST shunt placed 05/07. S/p bone flap on 05/22. The patient has had some improvement and does follow most commands. Improving with PT. -Malignant Hypertension (Hypertensive emergency) on admission -- s/p 3 weeks of Nimotop therapy for vasospasm prevention. in SAH patient. now targeting SBP < 160. Continue Norvasc 10 q day, HCTZ 25 mg daily , labetalol 300 mg PO TID, hydralazine 75 mg q8. Hold parameters. Blood pressure stable. No change in management. 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 Not a candidate for surgical intervention due to recent devastating neuro injury -Acute respiratory failure (now chronic resp failure) secondary to SAH / ICH. s/ p tracheostomy 04/29. Continue DuoNeb q 4 hours as needed -Macroglossia. Tongue edema again secondary to lower teeth biting with remaining upper teeth. S/P extraction of teeth to help reduce tongue edema by Dr Booth. Without ecchymotic area. Per OMFS, wound care and monitor. Improving. Able to retract tongue inside her mouth with help of her finger. -Chronic mild Transaminitis. CT of the abdomen shows normal liver. Repeat LFTs stable and negative hepatitis profile -Mild protein calorie malnutrition - s/p PEG 04/28. Tolerating tube feeds (Jevity ) at goal of 60 cc/hr (-25-30 kcal/kg/day). Dietary recommendation bolus feedings to start. - Patient tolerating bolus feedings. -Anemia of chronic inflammation / disease. Hgb stable with no signs of active bleeding -Sepsis secondary to pneumonia and prior UTI - resolved, now off all abx. -Agitation-secondary to brain injury. Continue restraints as needed, still requiring restraints intermittently. Continue low-dose Xanax as needed. On Seroquel 25 mg twice daily, increased nighttime Seroquel dose to 50 mg. Caution with multiple sedating medications, hold parameters placed on Xanax and Lortab. Increase activities being OOB to chair and ambulation can possibly decrease pt. agitation and restlessness. -GI Prophylaxis: oral Zantac q 12. -DVT Prophylaxis - SCDs; Lovenox 40 q day -Rehab: PT / OT. Will eventually need LTACH / SNF. Ambulating in the hallway as per physical therapy. Have been increasing in her activities and tolerating it. 08/24/16: Patient doing well, no acute events, no changes in management. Continue with strengthening exercises with PT/OT. - Tolerating bolus feeds. Recommended to RN sit patient in chair outside room to decrease restlessness and agitation when she is more awake. 08/25/16: In nad. Continue the same management. no change. Discuss with patient, RN nursing, and Dr. Howard Discharge Planning Discharge to rehab when arranged, currently no accepting facility. Dee Henderson MD Aug 25, 2016 10:49
[2016-08-25] MEDS: ACETAMINOPHEN/HYDROcodone 325 MG/5 MG TAB TUBE PRN (21:58)
[2016-08-26] VITALS (7 sets, daily range): BP systolic 100–135; BP diastolic 59–78; PULSE 63–76; RESP 18–20; TEMP 95.8–97.9; O2SAT 97–100
[2016-08-26] MEDS: ACETAMINOPHEN/HYDROcodone 325 MG/5 MG TAB TUBE PRN ×2 (05:24→19:47)
[2016-08-26] MEDS: LABETALOL HCL 300 MG TAB TUBE SCH ×3 (05:24→21:33)
[2016-08-26] MEDS: hydrALAZINE HCL 25 MG TAB TUBE SCH ×3 (05:24→21:33)
[2016-08-26] MEDS: CHLORHEXIDINE GLUCONATE 0.12% 30 ML CUP OTHER SCH ×2 (09:00→19:46)
[2016-08-26] MEDS: NYSTAT/DIPHENHY/LIDO MOUTHWASH (Adult) 120ML SWISH-SWAL SCH (09:00)
[2016-08-26] MEDS: SODIUM CHLORIDE 0.9% FLUSH 5 ML FLUSH IVF SCH (09:00)
[2016-08-26] MEDS: ENOXAPARIN SODIUM 40 MG/0.4 ML SYRINGE SQ SCH (09:15)
[2016-08-26] MEDS: QUEtiapine FUMARATE 25 MG TAB TUBE SCH ×2 (09:15→19:46)
[2016-08-26] MEDS: FAMOTIDINE 20 MG TAB TUBE SCH ×2 (09:15→19:47)
--- NOTE | 2016-08-26 11:56 | HHI.PR ---
Subjective Remarks In the chair at the nursing station, very pleasant and happy. Has no complaints. She is folding towels. No pain . Breathing well no cough. Objective Vitals Vital Signs Date Time Temp Pulse Resp B/P Pulse Ox O2 Delivery O2 Flow Rate FiO2 08/26/16 08:03 96.1 63 20 114/59 100 08/26/16 06:37 96.1 73 20 122/71 100 08/26/16 00:23 97.2 66 18 100/64 100 08/25/16 21:00 T-Piece 6.00 28 08/25/16 20:43 94 T-piece 21 08/25/16 20:00 98.7 71 20 119/65 99 08/25/16 16:00 99.2 89 18 103/64 98 08/25/16 12:00 98.6 98 18 125/81 100 I/O 08/25/16 08/25/16 08/25/16 08/26/16 08/26/16 08/26/16 07:00 15:00 23:00 07:00 15:00 23:00 Intake Total 50 ml 380 ml Balance 50 ml 380 ml IV Total 0 ml Tube Feeding 320 ml Tube Irrigant 50 ml 60 ml # Voids 6 2 2 2 # Bowel Movements 1 1 1 0 Imaging Last Impressions Head CT 05/23/16599 Signed Impressions: Service Date/Time: Monday, May 23, 2016 04:48 - CONCLUSION: 1. The left craniotomy defect has been repaired. 2. Small blood and air in the left subdural space, up to 6 mm in maximal thickness. Subdural drain in place. 3. Evolving encephalomalacia of the left frontal and temporal lobes. 4. 2 mm of rightward midline shift. 5. Shunted. No ventriculomegaly. Fei Hughes MD Chest X-Ray 05/17/16 06 Signed Impressions: Service Date/Time: Tuesday, May 17, 2016 04:59 - CONCLUSION: 1. Minimal basilar atelectasis. Cardiomegaly. Quinn Bateman MD Skull X-Ray 05/08/16 0000 Signed Impressions: Service Date/Time: May 10:16 - CONCLUSION: Shunt set to 70-80 mm H2O. Fei Snyder MD Head CTA 05/02/16 0600 Signed Impressions: Service Date/Time: Monday, May 02, 2016 04:32 - CONCLUSION: Satisfactory appearance post aneurysm coiling Fei Snyder MD Abdomen/Pelvis CT 04/24/16 1416 Signed Impressions: Service Date/Time: March 14:39 - CONCLUSION: Mild small bowel ileus with scattered air-fluid levels. Bibasilar lung consolidation with associated small effusions. Significant soft tissue fluid accumulation with edematous changes throughout the abdominal wall. Nasogastric tube in good position. Saqib Garcia MD Neck CTA 04/11/16 1151 Signed Impressions: Service Date/Time: Monday, April 11, 2016 12:01 - CONCLUSION: Negative for hemodynamically significant carotid stenosis. Ricardo Castellanos MD FACR Cerebral Arteriogram 04/11/16 0000 Signed Impressions: Service Date/Time: Monday, April 11, 2016 14:18 - CONCLUSION: 1. 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 This is the aneurysm felt responsible for the intracranial hemorrhage. 2. Small 4 mm left M1 segment aneurysm. Attempts at embolizing this aneurysm were unsuccessful due to the broad based nature of the aneurysm. Endovascular repair of this aneurysm could not be performed. Kennedy Thibodeaux Jr., MD Objective Remarks GENERAL: Well-developed well-nourished. Currently calm and in 4 point restraints. Tongue extruding. doesn't appear in acute distress, however appears chronically ill patient. SKIN: Warm and dry. No lesions noted. HEENT: Normocephalic. Pupils equal and round. Swollen and protruding tongue with right lateral scab present. Edentulous. CARDIOVASCULAR: Regular rate and rhythm. 5/6 systolic murmur appreciated. RESPIRATORY: No accessory muscle use. Clear to auscultation. Breath sounds equal bilaterally. GASTROINTESTINAL: Abdomen soft, non-tender, nondistended. Bowel sounds x4. PEG in place. MUSCULOSKELETAL: No obvious deformities. No clubbing or cyanosis. No edema. NEUROLOGICAL: Awake and alert. Nonverbal secondary to tongue edema and tracheostomy. 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 Paramedics arrived and she was ventilated with bag mask. She was endotracheal intubated in the emergency department where a head CT showed a large left hemispheric intraparenchymal hemorrhage with subarachnoid blood. Subsequent CTA revealed a left middle cerebral aneurysm. -Acute subarachnoid hemorrhage (left middle cerebral artery aneurysm)-- s/p endovascular coiling of MCA ruptured cerebral aneurysm 04/11 -Large left frontal hemorrhage with Intracranial hypertension with devastating neurologic injury- Patient with significant dominant hemisphere frontal temporal lobe hemorrhage and consequent cerebral injury and has had no meaningful neurologic recovery. s/p Dr. Meléndez performed left decompressive craniotomy 04/25 with evacuation of temporal hematoma. RIB [employer]OTH K[employer]ITTER shunt placed 05/07. S/p bone flap on 05/22. The patient has had some improvement and does follow most commands. Improving with PT. -Malignant Hypertension (Hypertensive emergency) on admission -- s/p 3 weeks of Nimotop therapy for vasospasm prevention. in SAH patient. now targeting SBP < 160. Continue Norvasc 10 q day, HCTZ 25 mg daily , labetalol 300 mg PO TID, hydralazine 75 mg q8. Hold parameters. Blood pressure stable. No change in management. 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 Not a candidate for surgical intervention due to recent devastating neuro injury -Acute respiratory failure (now chronic resp failure) secondary to SAH / ICH. s/ p tracheostomy 04/29. Continue DuoNeb q 4 hours as needed -Macroglossia. Tongue edema again secondary to lower teeth biting with remaining upper teeth. S/P extraction of teeth to help reduce tongue edema 11/ [address] Booth. Without ecchymotic area. Per OMFS, wound care and monitor. Improving. Able to retract tongue inside her mouth with help of her finger. -Chronic mild Transaminitis. CT of the abdomen shows normal liver. Repeat LFTs stable and negative hepatitis profile -Mild protein calorie malnutrition - s/p PEG 04/28. Tolerating tube feeds (Jevity ) at goal of 60 cc/hr (-25-30 kcal/kg/day). Dietary recommendation bolus feedings to start. - Patient tolerating bolus feedings. -Anemia of chronic inflammation / disease. Hgb stable with no signs of active bleeding -Sepsis secondary to pneumonia and prior UTI - resolved, now off all abx. -Agitation-secondary to brain injury. Continue restraints as needed, still requiring restraints intermittently. Continue low-dose Xanax as needed. On Seroquel 25 mg twice daily, increased nighttime Seroquel dose to 50 mg. Caution with multiple sedating medications, hold parameters placed on Xanax and Lortab. Increase activities being OOB to chair and ambulation can possibly decrease pt. agitation and restlessness. -GI Prophylaxis: oral Zantac q 12. -DVT Prophylaxis - SCDs; Lovenox 40 q day -Rehab: PT / OT. Will eventually need LTACH / SNF. Ambulating in the hallway as per physical therapy. Have been increasing in her activities and tolerating it. 08/24/16: Patient doing well, no acute events, no changes in management. Continue with strengthening exercises with PT/OT. - Tolerating bolus feeds. Recommended to RN sit patient in chair outside room to decrease restlessness and agitation when she is more awake. 08/25/16: In nad. Continue the same management. no change. :In nad. Continue the same management. No change. Discuss with patient, RN nursing, and Dr. Howard Discharge Planning Discharge to rehab when arranged, currently no accepting facility. Dee Henderson MD Aug 26, 2016 11:56
[2016-08-27] VITALS (8 sets, daily range): BP systolic 105–134; BP diastolic 62–77; PULSE 60–89; RESP 18–20; TEMP 95.8–97.8; O2SAT 94–100
[2016-08-27] MEDS: ACETAMINOPHEN/HYDROcodone 325 MG/5 MG TAB TUBE PRN (05:56)
[2016-08-27] MEDS: hydrALAZINE HCL 25 MG TAB TUBE SCH ×3 (05:56→22:00)
[2016-08-27] MEDS: LABETALOL HCL 300 MG TAB TUBE SCH ×3 (05:56→22:00)
[2016-08-27] MEDS: NYSTAT/DIPHENHY/LIDO MOUTHWASH (Adult) 120ML SWISH-SWAL SCH ×4 (09:00→19:58)
[2016-08-27] MEDS: CHLORHEXIDINE GLUCONATE 0.12% 30 ML CUP OTHER SCH ×2 (09:00→19:58)
[2016-08-27] MEDS: ENOXAPARIN SODIUM 40 MG/0.4 ML SYRINGE SQ SCH (09:00)
[2016-08-27] MEDS: SODIUM CHLORIDE 0.9% FLUSH 5 ML FLUSH IVF SCH ×2 (09:00→19:59)
[2016-08-27] MEDS: FAMOTIDINE 20 MG TAB TUBE SCH ×2 (09:53→19:58)
[2016-08-27] MEDS: QUEtiapine FUMARATE 25 MG TAB TUBE SCH ×2 (09:53→19:58)
--- NOTE | 2016-08-27 12:12 | HHI.PR ---
Subjective Remarks In the chair. She appears in nad. Breathing well no cough. No p, sob, n/v/d/c. Will benefit from speech therapy. Objective Vitals Vital Signs Date Time Temp Pulse Resp B/P Pulse Ox O2 Delivery O2 Flow Rate FiO2 08/27/16 08:28 95 T-piece 5.00 21 08/27/16 08:00 96.6 60 18 114/63 99 08/27/16 07:00 T-Piece 6.00 28 08/27/16 04:00 96.7 63 20 134/77 100 08/27/16 00:36 97.4 89 20 112/62 95 08/26/16 20:46 97.9 68 20 135/75 100 08/26/16 16:00 96.7 72 18 108/67 100 I/O 08/26/16 08/26/16 08/26/16 08/27/16 08/27/16 08/27/16 07:00 15:00 23:00 07:00 15:00 23:00 Intake Total 380 ml Balance 380 ml Tube Feeding 320 ml Tube Irrigant 60 ml # Voids 2 3 1 # Bowel Movements 0 0 1 0 Imaging Last Impressions Head CT 05/23/16 06 Signed Impressions: Service Date/Time: Monday, May 23, 2016 04:48 - CONCLUSION: 1. The left craniotomy defect has been repaired. 2. Small blood and air in the left subdural space, up to 6 mm in maximal thickness. Subdural drain in place. 3. Evolving encephalomalacia of the left frontal and temporal lobes. 4. 2 mm of rightward midline shift. 5. Shunted. No ventriculomegaly. Fei Hughes MD Chest X-Ray 05/17/16 0600 Signed Impressions: Service Date/Time: Tuesday, May 17, 2016 04:59 - CONCLUSION: 1. Minimal basilar atelectasis. Cardiomegaly. Quinn Bateman MD Skull X-Ray 05/08/16 0000 Signed Impressions: Service Date/Time: May 10:16 - CONCLUSION: Shunt set to 70-80 mm H2O. Fei Snyder MD Head CTA 05/02/16 06 Signed Impressions: Service Date/Time: Monday, May 02, 2016 04:32 - CONCLUSION: Satisfactory appearance post aneurysm coiling Fei Snyder MD Abdomen/Pelvis CT 04/24/16 1416 Signed Impressions: Service Date/Time: March 14:39 - CONCLUSION: Mild small bowel ileus with scattered air-fluid levels. Bibasilar lung consolidation with associated small effusions. Significant soft tissue fluid accumulation with edematous changes throughout the abdominal wall. Nasogastric tube in good position. Saqib Garcia MD Neck CTA 04/11/16 1151 Signed Impressions: Service Date/Time: Monday, April 11, 2016 12:01 - CONCLUSION: Negative for hemodynamically significant carotid stenosis. Ricardo Castellanos MD FACR Cerebral Arteriogram 04/11/16 0000 Signed Impressions: Service Date/Time: Monday, April 11, 2016 14:18 - CONCLUSION: 1. 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 This is the aneurysm felt responsible for the intracranial hemorrhage. 2. Small 4 mm left M1 segment aneurysm. Attempts at embolizing this aneurysm were unsuccessful due to the broad based nature of the aneurysm. Endovascular repair of this aneurysm could not be performed. Kennedy Thibodeaux Jr., MD Objective Remarks GENERAL: Well-developed well-nourished. Currently calm and in 4 point restraints. Tongue extruding. doesn't appear in acute distress, however appears chronically ill patient. SKIN: Warm and dry. No lesions noted. HEENT: Normocephalic. Pupils equal and round. Swollen and protruding tongue with right lateral scab present. Edentulous. CARDIOVASCULAR: Regular rate and rhythm. 5/6 systolic murmur appreciated. RESPIRATORY: No accessory muscle use. Clear to auscultation. Breath sounds equal bilaterally. GASTROINTESTINAL: Abdomen soft, non-tender, nondistended. Bowel sounds x4. PEG in place. MUSCULOSKELETAL: No obvious deformities. No clubbing or cyanosis. No edema. NEUROLOGICAL: Awake and alert. Nonverbal secondary to tongue edema and tracheostomy. 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 Paramedics arrived and she was ventilated with bag mask. She was endotracheal intubated in the emergency department where a head CT showed a large left hemispheric intraparenchymal hemorrhage with subarachnoid blood. Subsequent CTA revealed a left middle cerebral aneurysm. -Acute subarachnoid hemorrhage (left middle cerebral artery aneurysm)-- s/p endovascular coiling of MCA ruptured cerebral aneurysm 04/11 -Large left frontal hemorrhage with Intracranial hypertension with devastating neurologic injury- Patient with significant dominant hemisphere frontal temporal lobe hemorrhage and consequent cerebral injury and has had no meaningful neurologic recovery. s/p Dr. Meléndez performed left decompressive craniotomy 04/25 with evacuation of temporal hematoma. TELEPHONE ORDER SUPERVISOR shunt placed 05/07. S/p bone flap on 05/22. The patient has had some improvement and does follow most commands. Improving with PT. -Malignant Hypertension (Hypertensive emergency) on admission -- s/p 3 weeks of Nimotop therapy for vasospasm prevention. in SAH patient. now targeting SBP < 160. Continue Norvasc 10 q day, HCTZ 25 mg daily , labetalol 300 mg PO TID, hydralazine 75 mg q8. Hold parameters. Blood pressure stable. No change in management. 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 Not a candidate for surgical intervention due to recent devastating neuro injury -Acute respiratory failure (now chronic resp failure) secondary to SAH / ICH. s/ p tracheostomy 04/29. Continue DuoNeb q 4 hours as needed -Macroglossia. Tongue edema again secondary to lower teeth biting with remaining upper teeth. S/P extraction of teeth to help reduce tongue edema by Dr Booth. Without ecchymotic area. Per OMFS, wound care and monitor. Improving. Able to retract tongue inside her mouth with help of her finger. -Chronic mild Transaminitis. CT of the abdomen shows normal liver. Repeat LFTs stable and negative hepatitis profile -Mild protein calorie malnutrition - s/p PEG 04/28. Tolerating tube feeds (Jevity ) at goal of 60 cc/hr (-25-30 kcal/kg/day). Dietary recommendation bolus feedings to start. - Patient tolerating bolus feedings. -Anemia of chronic inflammation / disease. Hgb stable with no signs of active bleeding -Sepsis secondary to pneumonia and prior UTI - resolved, now off all abx. -Agitation-secondary to brain injury. Continue restraints as needed, still requiring restraints intermittently. Continue low-dose Xanax as needed. On Seroquel 25 mg twice daily, increased nighttime Seroquel dose to 50 mg. Caution with multiple sedating medications, hold parameters placed on Xanax and Lortab. Increase activities being OOB to chair and ambulation can possibly decrease pt. agitation and restlessness. -GI Prophylaxis: oral Zantac q 12. -DVT Prophylaxis - SCDs; Lovenox 40 q day -Rehab: PT / OT. Will eventually need LTACH / SNF. Ambulating in the hallway as per physical therapy. Have been increasing in her activities and tolerating it. 08/24/16: Patient doing well, no acute events, no changes in management. Continue with strengthening exercises with PT/OT. - Tolerating bolus feeds. Recommended to RN sit patient in chair outside room to decrease restlessness and agitation when she is more awake. 08/25/16: In nad. Continue the same management. no change. 08/26/16:In nad. Continue the same management. No change. 08/27/16: Patient is more interactive and she will benefit from ST. Consult speech therapy. Patient in nad. In the chair. Discharge Planning Discharge to rehab when arranged, currently no accepting facility. Dee Henderson MD Aug 27, 2016 12:12
[2016-08-28] VITALS (8 sets, daily range): BP systolic 107–165; BP diastolic 59–97; PULSE 66–85; RESP 16–18; TEMP 97–97.7; O2SAT 94–100
[2016-08-28] MEDS: hydrALAZINE HCL 25 MG TAB TUBE SCH ×3 (05:17→22:00)
[2016-08-28] MEDS: LABETALOL HCL 300 MG TAB TUBE SCH ×3 (05:17→22:00)
[2016-08-28] MEDS: CHLORHEXIDINE GLUCONATE 0.12% 30 ML CUP OTHER SCH ×2 (08:03→21:00)
[2016-08-28] MEDS: ENOXAPARIN SODIUM 40 MG/0.4 ML SYRINGE SQ SCH (08:03)
[2016-08-28] MEDS: QUEtiapine FUMARATE 25 MG TAB TUBE SCH ×2 (08:04→21:00)
[2016-08-28] MEDS: FAMOTIDINE 20 MG TAB TUBE SCH ×2 (08:04→21:00)
[2016-08-28] MEDS: NYSTAT/DIPHENHY/LIDO MOUTHWASH (Adult) 120ML SWISH-SWAL SCH ×4 (08:05→21:00)
[2016-08-28] MEDS: SODIUM CHLORIDE 0.9% FLUSH 5 ML FLUSH IVF SCH ×2 (08:28→21:00)
--- NOTE | 2016-08-28 13:10 | HHI.PR ---
Subjective Remarks Seen earlier today. Sleepy. No events overnight. Appears in nad. Objective Vitals Vital Signs Date Time Temp Pulse Resp B/P Pulse Ox O2 Delivery O2 Flow Rate FiO2 08/28/16 12:20 97.2 75 18 113/80 99 08/28/16 08:19 97.0 78 18 107/70 99 08/28/16 04:00 97.1 66 18 165/79 100 08/28/16 00:00 97.5 77 18 108/59 99 08/27/16 20:00 Room Air T-Piece Humidified 08/27/16 20:00 97.8 79 18 118/69 100 08/27/16 17:20 94 T-piece 21 08/27/16 16:00 96.3 68 20 123/70 100 I/O 08/27/16 08/27/16 08/27/16 08/28/16 08/28/16 08/28/16 07:00 15:00 23:00 07:00 15:00 23:00 Intake Total 840 ml Balance 840 ml Tube Feeding 640 ml Other 200 ml # Voids 1 3 1 4 # Bowel Movements 0 0 1 0 Objective Remarks GENERAL: Well-developed well-nourished. Currently calm and in 4 point restraints. Tongue extruding. doesn't appear in acute distress, however appears chronically ill patient. SKIN: Warm and dry. No lesions noted. HEENT: Normocephalic. Pupils equal and round. Swollen and protruding tongue with right lateral scab present. Edentulous. CARDIOVASCULAR: Regular rate and rhythm. 5/6 systolic murmur appreciated. RESPIRATORY: No accessory muscle use. Clear to auscultation. Breath sounds equal bilaterally. GASTROINTESTINAL: Abdomen soft, non-tender, nondistended. Bowel sounds x4. PEG in place. MUSCULOSKELETAL: No obvious deformities. No clubbing or cyanosis. No edema. NEUROLOGICAL: Awake and alert. Nonverbal secondary to tongue edema and tracheostomy. 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 Paramedics arrived and she was ventilated with bag mask. She was endotracheal intubated in the emergency department where a head CT showed a large left hemispheric intraparenchymal hemorrhage with subarachnoid blood. Subsequent CTA revealed a left middle cerebral aneurysm. -Acute subarachnoid hemorrhage (left middle cerebral artery aneurysm)-- s/p endovascular coiling of MCA ruptured cerebral aneurysm 04/11 -Large left frontal hemorrhage with Intracranial hypertension with devastating neurologic injury- Patient with significant dominant hemisphere frontal temporal lobe hemorrhage and consequent cerebral injury and has had no meaningful neurologic recovery. s/p Dr. Meléndez performed left decompressive craniotomy 04/25 with evacuation of temporal hematoma. OFFSET PRESS OPERATOR shunt placed 05/07. S/p bone flap on 05/22. The patient has had some improvement and does follow most commands. Improving with PT. -Malignant Hypertension (Hypertensive emergency) on admission -- s/p 3 weeks of Nimotop therapy for vasospasm prevention. in SAH patient. now targeting SBP < 160. Continue Norvasc 10 q day, HCTZ 25 mg daily , labetalol 300 mg PO TID, hydralazine 75 mg q8. Hold parameters. Blood pressure stable. No change in management. 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 Not a candidate for surgical intervention due to recent devastating neuro injury -Acute respiratory failure (now chronic resp failure) secondary to SAH / ICH. s/ p tracheostomy 04/29. Continue DuoNeb q 4 hours as needed -Macroglossia. Tongue edema again secondary to lower teeth biting with remaining upper teeth. S/P extraction of teeth to help reduce tongue edema by Dr Booth. Without ecchymotic area. Per OMFS, wound care and monitor. Improving. Able to retract tongue inside her mouth with help of her finger. -Chronic mild Transaminitis. CT of the abdomen shows normal liver. Repeat LFTs stable and negative hepatitis profile -Mild protein calorie malnutrition - s/p PEG 04/28. Tolerating tube feeds (Jevity ) at goal of 60 cc/hr (-25-30 kcal/kg/day). Dietary recommendation bolus feedings to start. - Patient tolerating bolus feedings. -Anemia of chronic inflammation / disease. Hgb stable with no signs of active bleeding -Sepsis secondary to pneumonia and prior UTI - resolved, now off all abx. -Agitation-secondary to brain injury. Continue restraints as needed, still requiring restraints intermittently. Continue low-dose Xanax as needed. On Seroquel 25 mg twice daily, increased nighttime Seroquel dose to 50 mg. Caution with multiple sedating medications, hold parameters placed on Xanax and Lortab. Increase activities being OOB to chair and ambulation can possibly decrease pt. agitation and restlessness. -GI Prophylaxis: oral Zantac q 12. -DVT Prophylaxis - SCDs; Lovenox 40 q day -Rehab: PT / OT. Will eventually need LTACH / SNF. Ambulating in the hallway as per physical therapy. Have been increasing in her activities and tolerating it. 08/24/16: Patient doing well, no acute events, no changes in management. Continue with strengthening exercises with PT/OT. - Tolerating bolus feeds. Recommended to RN sit patient in chair outside room to decrease restlessness and agitation when she is more awake. 08/25/16: In nad. Continue the same management. no change. 08/26/16:In nad. Continue the same management. No change. 08/27/16: Patient is more interactive and she will benefit from ST. Consult speech therapy. Patient in nad. In the chair. 08/28/16 No change in management. Discharge Planning Discharge to rehab when arranged, currently no accepting facility. Dee Henderson MD Aug 28, 2016 13:10
[2016-08-29] VITALS (7 sets, daily range): BP systolic 113–143; BP diastolic 60–84; PULSE 61–82; RESP 16–24; TEMP 96.3–98.6; O2SAT 95–100
[2016-08-29] MEDS: LABETALOL HCL 300 MG TAB TUBE SCH ×3 (06:00→21:09)
[2016-08-29] MEDS: hydrALAZINE HCL 25 MG TAB TUBE SCH ×3 (06:00→21:09)
[2016-08-29] MEDS: SODIUM CHLORIDE 0.9% FLUSH 5 ML FLUSH IVF SCH ×2 (09:00→20:49)
[2016-08-29] MEDS: NYSTAT/DIPHENHY/LIDO MOUTHWASH (Adult) 120ML SWISH-SWAL SCH ×4 (09:00→20:49)
[2016-08-29] MEDS: ENOXAPARIN SODIUM 40 MG/0.4 ML SYRINGE SQ SCH (11:14)
[2016-08-29] MEDS: CHLORHEXIDINE GLUCONATE 0.12% 30 ML CUP OTHER SCH ×2 (11:14→20:49)
[2016-08-29] MEDS: FAMOTIDINE 20 MG TAB TUBE SCH ×2 (11:14→20:50)
[2016-08-29] MEDS: QUEtiapine FUMARATE 25 MG TAB TUBE SCH ×2 (11:14→20:50)
--- NOTE | 2016-08-29 14:32 | HHI.PR ---
Subjective Remarks Sleepy. Denies any chest pain , n/v/d/c. Objective Vitals Vital Signs Date Time Temp Pulse Resp B/P Pulse Ox O2 Delivery O2 Flow Rate FiO2 08/29/16 12:28 96.9 81 18 143/84 100 08/29/16 09:01 97.5 61 18 139/80 98 08/29/16 09:00 95 T-piece 6.00 21 08/29/16 07:00 99 T-Piece 28 08/29/16 04:24 97.0 61 18 119/60 97 08/29/16 03:39 Room Air T-Piece Humidified 08/29/16 00:45 96.3 71 16 113/72 99 08/28/16 21:37 97 T-piece 21 08/28/16 20:38 97.0 82 16 121/83 94 08/28/16 16:25 97.7 85 18 117/97 99 I/O 08/28/16 08/28/16 08/28/16 08/29/16 08/29/16 08/29/16 06:59 14:59 22:59 06:59 14:59 22:59 Intake Total 840 ml 200 ml 420 ml Balance 840 ml 200 ml 420 ml Tube Feeding 640 ml 320 ml Other 200 ml 200 ml 100 ml # Voids 4 2 4 2 # Bowel Movements 0 2 1 1 1 Imaging Last Impressions Head CT 05/23/16 0600 Signed Impressions: Service Date/Time: Monday, May 23, 2016 04:48 - CONCLUSION: 1. The left craniotomy defect has been repaired. 2. Small blood and air in the left subdural space, up to 6 mm in maximal thickness. Subdural drain in place. 3. Evolving encephalomalacia of the left frontal and temporal lobes. 4. 2 mm of rightward midline shift. 5. Shunted. No ventriculomegaly. Fei Hughes MD Chest X-Ray 05/17/16 0600 Signed Impressions: Service Date/Time: Tuesday, May 17, 2016 04:59 - CONCLUSION: 1. Minimal basilar atelectasis. Cardiomegaly. Quinn Bateman MD Skull X-Ray 05/08/16 0000 Signed Impressions: Service Date/Time: May 10:16 - CONCLUSION: Shunt set to 70-80 mm H2O. Fei Snyder MD Head CTA 05/02/16 0600 Signed Impressions: Service Date/Time: Monday, May 02, 2016 04:32 - CONCLUSION: Satisfactory appearance post aneurysm coiling Fei Snyder MD Abdomen/Pelvis CT 04/24/16 1416 Signed Impressions: Service Date/Time: March 14:39 - CONCLUSION: Mild small bowel ileus with scattered air-fluid levels. Bibasilar lung consolidation with associated small effusions. Significant soft tissue fluid accumulation with edematous changes throughout the abdominal wall. Nasogastric tube in good position. Saqib Garcia MD Neck CTA 04/11/16 1151 Signed Impressions: Service Date/Time: Monday, April 11, 2016 12:01 - CONCLUSION: Negative for hemodynamically significant carotid stenosis. iRcardo Castellanos MD FACR Cerebral Arteriogram 04/11/16 0000 Signed Impressions: Service Date/Time: Monday, April 11, 2016 14:18 - CONCLUSION: 1. 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 This is the aneurysm felt responsible for the intracranial hemorrhage. 2. Small 4 mm left M1 segment aneurysm. Attempts at embolizing this aneurysm were unsuccessful due to the broad based nature of the aneurysm. Endovascular repair of this aneurysm could not be performed. Kennedy Thibodeaux Jr., MD Objective Remarks GENERAL: Well-developed well-nourished. Currently calm and in 4 point restraints. Tongue extruding. doesn't appear in acute distress, however appears chronically ill patient. SKIN: Warm and dry. No lesions noted. HEENT: Normocephalic. Pupils equal and round. Swollen and protruding tongue with right lateral scab present. Edentulous. CARDIOVASCULAR: Regular rate and rhythm. 5/6 systolic murmur appreciated. RESPIRATORY: No accessory muscle use. Clear to auscultation. Breath sounds equal bilaterally. GASTROINTESTINAL: Abdomen soft, non-tender, nondistended. Bowel sounds x4. PEG in place. MUSCULOSKELETAL: No obvious deformities. No clubbing or cyanosis. No edema. NEUROLOGICAL: Awake and alert. Nonverbal secondary to tongue edema and tracheostomy. 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 Paramedics arrived and she was ventilated with bag mask. She was endotracheal intubated in the emergency department where a head CT showed a large left hemispheric intraparenchymal hemorrhage with subarachnoid blood. Subsequent CTA revealed a left middle cerebral aneurysm. -Acute subarachnoid hemorrhage (left middle cerebral artery aneurysm)-- s/p endovascular coiling of MCA ruptured cerebral aneurysm 04/11 -Large left frontal hemorrhage with Intracranial hypertension with devastating neurologic injury- Patient with significant dominant hemisphere frontal temporal lobe hemorrhage and consequent cerebral injury and has had no meaningful neurologic recovery. s/p Dr. Meléndez performed left decompressive craniotomy 04/25 with evacuation of temporal hematoma. COPY PREPARER shunt placed 05/07. S/p bone flap on 05/22. The patient has had some improvement and does follow most commands. Improving with PT. -Malignant Hypertension (Hypertensive emergency) on admission -- s/p 3 weeks of Nimotop therapy for vasospasm prevention. in SAH patient. now targeting SBP < 160. Continue Norvasc 10 q day, HCTZ 25 mg daily , labetalol 300 mg PO TID, hydralazine 75 mg q8. Hold parameters. Blood pressure stable. No change in management. 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 Not a candidate for surgical intervention due to recent devastating neuro injury -Acute respiratory failure (now chronic resp failure) secondary to SAH / ICH. s/ p tracheostomy 04/29. Continue DuoNeb q 4 hours as needed -Macroglossia. Tongue edema again secondary to lower teeth biting with remaining upper teeth. S/P extraction of teeth to help reduce tongue edema by Dr Booth. Without ecchymotic area. Per OMFS, wound care and monitor. Improving. Able to retract tongue inside her mouth with help of her finger. -Chronic mild Transaminitis. CT of the abdomen shows normal liver. Repeat LFTs stable and negative hepatitis profile -Mild protein calorie malnutrition - s/p PEG 04/28. Tolerating tube feeds (Jevity ) at goal of 60 cc/hr (-25-30 kcal/kg/day). Dietary recommendation bolus feedings to start. - Patient tolerating bolus feedings. -Anemia of chronic inflammation / disease. Hgb stable with no signs of active bleeding -Sepsis secondary to pneumonia and prior UTI - resolved, now off all abx. -Agitation-secondary to brain injury. Continue restraints as needed, still requiring restraints intermittently. Continue low-dose Xanax as needed. On Seroquel 25 mg twice daily, increased nighttime Seroquel dose to 50 mg. Caution with multiple sedating medications, hold parameters placed on Xanax and Lortab. Increase activities being OOB to chair and ambulation can possibly decrease pt. agitation and restlessness. -GI Prophylaxis: oral Zantac q 12. -DVT Prophylaxis - SCDs; Lovenox 40 q day -Rehab: PT / OT. Will eventually need LTACH / SNF. Ambulating in the hallway as per physical therapy. Have been increasing in her activities and tolerating it. 08/24/16: Patient doing well, no acute events, no changes in management. Continue with strengthening exercises with PT/OT. - Tolerating bolus feeds. Recommended to RN sit patient in chair outside room to decrease restlessness and agitation when she is more awake. 08/27/16: Patient is more interactive and she will benefit from ST. Consult speech therapy. Patient in nad. In the chair. 08/29/16 In nad. Continue the same management. No change. Discharge Planning Discharge to rehab when arranged, currently no accepting facility. Dee Henderson MD Aug 29, 2016 14:32
[2016-08-29] MEDS: ACETAMINOPHEN/HYDROcodone 325 MG/5 MG TAB TUBE PRN (20:54)
[2016-08-30] VITALS (8 sets, daily range): BP systolic 105–126; BP diastolic 65–80; PULSE 56–89; RESP 14–18; TEMP 97.2–98.7; O2SAT 97–100
[2016-08-30] MEDS: hydrALAZINE HCL 25 MG TAB TUBE SCH ×2 (06:13→15:54)
[2016-08-30] MEDS: LABETALOL HCL 300 MG TAB TUBE SCH ×2 (06:13→15:54)
[2016-08-30] MEDS: ENOXAPARIN SODIUM 40 MG/0.4 ML SYRINGE SQ SCH (08:50)
[2016-08-30] MEDS: FAMOTIDINE 20 MG TAB TUBE SCH (08:51)
[2016-08-30] MEDS: QUEtiapine FUMARATE 25 MG TAB TUBE SCH (08:52)
[2016-08-30] MEDS: CHLORHEXIDINE GLUCONATE 0.12% 30 ML CUP OTHER SCH ×2 (08:52→21:00)
[2016-08-30] MEDS: NYSTAT/DIPHENHY/LIDO MOUTHWASH (Adult) 120ML SWISH-SWAL SCH ×4 (08:58→21:00)
[2016-08-30] MEDS: SODIUM CHLORIDE 0.9% FLUSH 5 ML FLUSH IVF SCH ×2 (09:00→21:00)
--- NOTE | 2016-08-30 11:18 | HHI.PR ---
Subjective Remarks In bed appears in nad. No complaints at this time. Objective Vitals Vital Signs Date Time Temp Pulse Resp B/P Pulse Ox O2 Delivery O2 Flow Rate FiO2 08/30/16 08:00 97.2 72 17 114/80 97 08/30/16 04:00 98.7 89 14 124/73 100 08/30/16 00:00 97.8 56 16 105/65 100 08/29/16 22:05 98 6.00 28 08/29/16 20:00 98.6 82 24 124/82 98 08/29/16 17:11 97.1 77 18 125/69 97 08/29/16 12:28 96.9 81 18 143/84 100 I/O 08/29/16 08/29/16 08/29/16 08/30/16 08/30/16 08/30/16 06:59 14:59 22:59 06:59 14:59 22:59 Intake Total 420 ml 640 ml Balance 420 ml 640 ml Tube Feeding 320 ml 640 ml Other 100 ml # Voids 4 2 2 2 # Bowel Movements 1 1 Imaging Last Impressions Head CT 05/23/16 0600 Signed Impressions: Service Date/Time: Monday, May 23, 2016 04:48 - CONCLUSION: 1. The left craniotomy defect has been repaired. 2. Small blood and air in the left subdural space, up to 6 mm in maximal thickness. Subdural drain in place. 3. Evolving encephalomalacia of the left frontal and temporal lobes. 4. 2 mm of rightward midline shift. 5. Shunted. No ventriculomegaly. Fei Hughes MD Chest X-Ray 05/17/16 0600 Signed Impressions: Service Date/Time: Tuesday, May 17, 2016 04:59 - CONCLUSION: 1. Minimal basilar atelectasis. Cardiomegaly. Quinn Bateman MD Skull X-Ray 05/08/16 0000 Signed Impressions: Service Date/Time: May 10:16 - CONCLUSION: Shunt set to 70-80 mm H2O. Fei Snyder MD Head CTA 05/02/16 0600 Signed Impressions: Service Date/Time: Monday, May 02, 2016 04:32 - CONCLUSION: Satisfactory appearance post aneurysm coiling Fei Snyder MD Abdomen/Pelvis CT 04/24/16 1416 Signed Impressions: Service Date/Time: March 14:39 - CONCLUSION: Mild small bowel ileus with scattered air-fluid levels. Bibasilar lung consolidation with associated small effusions. Significant soft tissue fluid accumulation with edematous changes throughout the abdominal wall. Nasogastric tube in good position. Saqib Garcia MD Neck CTA 04/11/16 1151 Signed Impressions: Service Date/Time: Monday, April 11, 2016 12:01 - CONCLUSION: Negative for hemodynamically significant carotid stenosis. Ricardo Castellanos MD FACR Cerebral Arteriogram 04/11/16 0000 Signed Impressions: Service Date/Time: Monday, April 11, 2016 14:18 - CONCLUSION: 1. 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 This is the aneurysm felt responsible for the intracranial hemorrhage. 2. Small 4 mm left M1 segment aneurysm. Attempts at embolizing this aneurysm were unsuccessful due to the broad based nature of the aneurysm. Endovascular repair of this aneurysm could not be performed. Kennedy Thibodeaux Jr., MD Objective Remarks GENERAL: Well-developed well-nourished. Currently calm and in 4 point restraints. Tongue extruding. doesn't appear in acute distress, however appears chronically ill patient. SKIN: Warm and dry. No lesions noted. HEENT: Normocephalic. Pupils equal and round. Swollen and protruding tongue with right lateral scab present. Edentulous. CARDIOVASCULAR: Regular rate and rhythm. 5/6 systolic murmur appreciated. RESPIRATORY: No accessory muscle use. Clear to auscultation. Breath sounds equal bilaterally. GASTROINTESTINAL: Abdomen soft, non-tender, nondistended. Bowel sounds x4. PEG in place. MUSCULOSKELETAL: No obvious deformities. No clubbing or cyanosis. No edema. NEUROLOGICAL: Awake and alert. Nonverbal secondary to tongue edema and tracheostomy. 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 Paramedics arrived and she was ventilated with bag mask. She was endotracheal intubated in the emergency department where a head CT showed a large left hemispheric intraparenchymal hemorrhage with subarachnoid blood. Subsequent CTA revealed a left middle cerebral aneurysm. -Acute subarachnoid hemorrhage (left middle cerebral artery aneurysm)-- s/p endovascular coiling of MCA ruptured cerebral aneurysm 04/11 -Large left frontal hemorrhage with Intracranial hypertension with devastating neurologic injury- Patient with significant dominant hemisphere frontal temporal lobe hemorrhage and consequent cerebral injury and has had no meaningful neurologic recovery. s/p Dr. Meléndez performed left decompressive craniotomy 04/25 with evacuation of temporal hematoma. VIDEO CONTROL OPERATOR shunt placed 05/07. S/p bone flap on 05/22. The patient has had some improvement and does follow most commands. Improving with PT. -Malignant Hypertension (Hypertensive emergency) on admission -- s/p 3 weeks of Nimotop therapy for vasospasm prevention. in SAH patient. now targeting SBP < 160. Continue Norvasc 10 q day, HCTZ 25 mg daily , labetalol 300 mg PO TID, hydralazine 75 mg q8. Hold parameters. Blood pressure stable. No change in management. 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 Not a candidate for surgical intervention due to recent devastating neuro injury -Acute respiratory failure (now chronic resp failure) secondary to SAH / ICH. s/ p tracheostomy 04/29. Continue DuoNeb q 4 hours as needed -Macroglossia. Tongue edema again secondary to lower teeth biting with remaining upper teeth. S/P extraction of teeth to help reduce tongue edema by Dr Booth. Without ecchymotic area. Per OMFS, wound care and monitor. Improving. Able to retract tongue inside her mouth with help of her finger. -Chronic mild Transaminitis. CT of the abdomen shows normal liver. Repeat LFTs stable and negative hepatitis profile -Mild protein calorie malnutrition - s/p PEG 04/28. Tolerating tube feeds (Jevity ) at goal of 60 cc/hr (-25-30 kcal/kg/day). Dietary recommendation bolus feedings to start. - Patient tolerating bolus feedings. -Anemia of chronic inflammation / disease. Hgb stable with no signs of active bleeding -Sepsis secondary to pneumonia and prior UTI - resolved, now off all abx. -Agitation-secondary to brain injury. Continue restraints as needed, still requiring restraints intermittently. Continue low-dose Xanax as needed. On Seroquel 25 mg twice daily, increased nighttime Seroquel dose to 50 mg. Caution with multiple sedating medications, hold parameters placed on Xanax and Lortab. Increase activities being OOB to chair and ambulation can possibly decrease pt. agitation and restlessness. -GI Prophylaxis: oral Zantac q 12. -DVT Prophylaxis - SCDs; Lovenox 40 q day -Rehab: PT / OT. Will eventually need LTACH / SNF. Ambulating in the hallway as per physical therapy. Have been increasing in her activities and tolerating it. 08/24/16: Patient doing well, no acute events, no changes in management. Continue with strengthening exercises with PT/OT. - Tolerating bolus feeds. Recommended to RN sit patient in chair outside room to decrease restlessness and agitation when she is more awake. 08/27/16: Patient is more interactive and she will benefit from ST. Consult speech therapy. Patient in nad. In the chair. 08/30/16 In nad. Continue the same management. No change. Discharge Planning Discharge to rehab when arranged, currently no accepting facility. Dee Henderson MD Aug 30, 2016 11:18
[2016-08-31] VITALS (8 sets, daily range): BP systolic 108–163; BP diastolic 73–98; PULSE 67–88; RESP 16–20; TEMP 95.6–98.7; O2SAT 96–100
[2016-08-31] MEDS: FAMOTIDINE 20 MG TAB TUBE SCH ×3 (00:52→22:35)
[2016-08-31] MEDS: LABETALOL HCL 300 MG TAB TUBE SCH ×4 (00:52→22:40)
[2016-08-31] MEDS: hydrALAZINE HCL 25 MG TAB TUBE SCH ×4 (00:52→22:00)
[2016-08-31] MEDS: QUEtiapine FUMARATE 25 MG TAB TUBE SCH ×3 (00:53→22:35)
[2016-08-31] MEDS: ALPRAZolam 0.25 MG TAB PO PRN (00:59)
[2016-08-31] MEDS: NYSTAT/DIPHENHY/LIDO MOUTHWASH (Adult) 120ML SWISH-SWAL SCH ×2 (09:00→12:50)
[2016-08-31] MEDS: ENOXAPARIN SODIUM 40 MG/0.4 ML SYRINGE SQ SCH (10:27)
[2016-08-31] MEDS: SODIUM CHLORIDE 0.9% FLUSH 5 ML FLUSH IVF SCH (10:27)
[2016-08-31] MEDS: CHLORHEXIDINE GLUCONATE 0.12% 30 ML CUP OTHER SCH ×2 (10:28→21:00)
[2016-08-31] MEDS: ACETAMINOPHEN/HYDROcodone 325 MG/5 MG TAB TUBE PRN ×2 (12:50→22:36)
--- NOTE | 2016-08-31 14:15 | HHI.PR ---
Subjective Remarks Patient in nad. Doesn't have any complaints. Objective Vitals Vital Signs Date Time Temp Pulse Resp B/P Pulse Ox O2 Delivery O2 Flow Rate FiO2 08/31/16 12:00 96.2 68 18 163/98 96 08/31/16 09:07 99 T-piece 21 08/31/16 08:00 95.6 71 20 141/88 100 08/31/16 06:00 98.7 88 16 108/78 100 08/31/16 02:45 98 T-piece 6.00 21 08/31/16 00:00 96.8 67 18 153/87 97 08/30/16 20:00 98.7 72 16 120/73 97 08/30/16 18:08 100 T-piece 6.00 21 08/30/16 16:00 98.4 83 17 126/78 100 I/O 08/30/16 08/30/16 08/30/16 08/31/16 08/31/16 08/31/16 06:59 14:59 22:59 06:59 14:59 22:59 Intake Total 320 ml Balance 320 ml Tube Feeding 320 ml # Voids 2 3 5 2 # Bowel Movements 0 1 Imaging Last Impressions Head CT 05/23/16 06 Signed Impressions: Service Date/Time: Monday, May 23, 2016 04:48 - CONCLUSION: 1. The left craniotomy defect has been repaired. 2. Small blood and air in the left subdural space, up to 6 mm in maximal thickness. Subdural drain in place. 3. Evolving encephalomalacia of the left frontal and temporal lobes. 4. 2 mm of rightward midline shift. 5. Shunted. No ventriculomegaly. Fei Hughes MD Chest X-Ray 05/17/16 0600 Signed Impressions: Service Date/Time: Tuesday, May 17, 2016 04:59 - CONCLUSION: 1. Minimal basilar atelectasis. Cardiomegaly. Quinn Bateman MD Skull X-Ray 05/08/16 0000 Signed Impressions: Service Date/Time: May 10:16 - CONCLUSION: Shunt set to 70-80 mm H2O. Fei Snyder MD Head CTA 05/02/16 0600 Signed Impressions: Service Date/Time: Monday, May 02, 2016 04:32 - CONCLUSION: Satisfactory appearance post aneurysm coiling Fei Snyder MD Abdomen/Pelvis CT 04/24/16 1416 Signed Impressions: Service Date/Time: March 14:39 - CONCLUSION: Mild small bowel ileus with scattered air-fluid levels. Bibasilar lung consolidation with associated small effusions. Significant soft tissue fluid accumulation with edematous changes throughout the abdominal wall. Nasogastric tube in good position. Saqib Garcia MD Neck CTA 04/11/16 1151 Signed Impressions: Service Date/Time: Monday, April 11, 2016 12:01 - CONCLUSION: Negative for hemodynamically significant carotid stenosis. Ricardo Castellanos MD FACR Cerebral Arteriogram 04/11/16 0000 Signed Impressions: Service Date/Time: Monday, April 11, 2016 14:18 - CONCLUSION: 1. 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 This is the aneurysm felt responsible for the intracranial hemorrhage. 2. Small 4 mm left M1 segment aneurysm. Attempts at embolizing this aneurysm were unsuccessful due to the broad based nature of the aneurysm. Endovascular repair of this aneurysm could not be performed. Kennedy Thibodeaux Jr., MD Objective Remarks GENERAL: Well-developed well-nourished. Currently calm and in 4 point restraints. Tongue extruding. doesn't appear in acute distress, however appears chronically ill patient. SKIN: Warm and dry. No lesions noted. HEENT: Normocephalic. Pupils equal and round. Swollen and protruding tongue with right lateral scab present. Edentulous. CARDIOVASCULAR: Regular rate and rhythm. 5/6 systolic murmur appreciated. RESPIRATORY: No accessory muscle use. Clear to auscultation. Breath sounds equal bilaterally. GASTROINTESTINAL: Abdomen soft, non-tender, nondistended. Bowel sounds x4. PEG in place. MUSCULOSKELETAL: No obvious deformities. No clubbing or cyanosis. No edema. NEUROLOGICAL: Awake and alert. Nonverbal secondary to tongue edema and tracheostomy. 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 Paramedics arrived and she was ventilated with bag mask. She was endotracheal intubated in the emergency department where a head CT showed a large left hemispheric intraparenchymal hemorrhage with subarachnoid blood. Subsequent CTA revealed a left middle cerebral aneurysm. -Acute subarachnoid hemorrhage (left middle cerebral artery aneurysm)-- s/p endovascular coiling of MCA ruptured cerebral aneurysm 04/11 -Large left frontal hemorrhage with Intracranial hypertension with devastating neurologic injury- Patient with significant dominant hemisphere frontal temporal lobe hemorrhage and consequent cerebral injury and has had no meaningful neurologic recovery. s/p Dr. Meléndez performed left decompressive craniotomy 04/25 with evacuation of temporal hematoma. HYDROCHLORIC ACID OPERATOR shunt placed 05/07. S/p bone flap on 05/22. The patient has had some improvement and does follow most commands. Improving with PT. -Malignant Hypertension (Hypertensive emergency) on admission -- s/p 3 weeks of Nimotop therapy for vasospasm prevention. in SAH patient. now targeting SBP < 160. Continue Norvasc 10 q day, HCTZ 25 mg daily , labetalol 300 mg PO TID, hydralazine 75 mg q8. Hold parameters. Blood pressure stable. No change in management. 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 Not a candidate for surgical intervention due to recent devastating neuro injury -Acute respiratory failure (now chronic resp failure) secondary to SAH / ICH. s/ p tracheostomy 04/29. Continue DuoNeb q 4 hours as needed -Macroglossia. Tongue edema again secondary to lower teeth biting with remaining upper teeth. S/P extraction of teeth to help reduce tongue edema by Dr Booth. Without ecchymotic area. Per OMFS, wound care and monitor. Improving. Able to retract tongue inside her mouth with help of her finger. -Chronic mild Transaminitis. CT of the abdomen shows normal liver. Repeat LFTs stable and negative hepatitis profile -Mild protein calorie malnutrition - s/p PEG 04/28. Tolerating tube feeds (Jevity ) at goal of 60 cc/hr (-25-30 kcal/kg/day). Dietary recommendation bolus feedings to start. - Patient tolerating bolus feedings. -Anemia of chronic inflammation / disease. Hgb stable with no signs of active bleeding -Sepsis secondary to pneumonia and prior UTI - resolved, now off all abx. -Agitation-secondary to brain injury. Continue restraints as needed, still requiring restraints intermittently. Continue low-dose Xanax as needed. On Seroquel 25 mg twice daily, increased nighttime Seroquel dose to 50 mg. Caution with multiple sedating medications, hold parameters placed on Xanax and Lortab. Increase activities being OOB to chair and ambulation can possibly decrease pt. agitation and restlessness. -GI Prophylaxis: oral Zantac q 12. -DVT Prophylaxis - SCDs; Lovenox 40 q day -Rehab: PT / OT. Will eventually need LTACH / SNF. Ambulating in the hallway as per physical therapy. Have been increasing in her activities and tolerating it. 08/24/16: Patient doing well, no acute events, no changes in management. Continue with strengthening exercises with PT/OT. - Tolerating bolus feeds. Recommended to RN sit patient in chair outside room to decrease restlessness and agitation when she is more awake. 08/27/16: Patient is more interactive and she will benefit from ST. Consult speech therapy. Patient in nad. In the chair. 08/30/16 In nad. Continue the same management. No change. Discharge Planning Discharge to rehab when arranged, currently no accepting facility. Dee Henderson MD Aug 31, 2016 14:15
[2016-09-01] VITALS (8 sets, daily range): BP systolic 104–169; BP diastolic 67–86; PULSE 67–88; RESP 18–20; TEMP 96.8–98.3; O2SAT 96–100
[2016-09-01] MEDS: LABETALOL HCL 300 MG TAB TUBE SCH ×3 (05:45→22:00)
[2016-09-01] MEDS: hydrALAZINE HCL 25 MG TAB TUBE SCH ×3 (05:46→22:00)
--- NOTE | 2016-09-01 08:24 | HHI.PR ---
Subjective Remarks In bed, alert and awake. Appears in nad. No complaints. Objective Vitals Vital Signs Date Time Temp Pulse Resp B/P Pulse Ox O2 Delivery O2 Flow Rate FiO2 09/01/16 06:45 96.8 71 20 119/81 100 09/01/16 00:00 97.2 73 18 104/67 98 08/31/16 20:00 97.6 82 20 114/82 98 08/31/16 16:00 96.8 68 19 123/73 98 08/31/16 12:00 96.2 68 18 163/98 96 08/31/16 09:07 99 T-piece 21 I/O 08/31/16 08/31/16 08/31/16 09/01/16 09/01/16 09/01/16 07:00 15:00 23:00 07:00 15:00 23:00 Intake Total 320 ml 320 ml Balance 320 ml 320 ml Tube Feeding 320 ml 320 ml # Voids 2 3 2 2 # Bowel Movements 0 0 0 Objective Remarks GENERAL: Well-developed well-nourished. Currently calm and in 4 point restraints. Tongue extruding. doesn't appear in acute distress, however appears chronically ill patient. SKIN: Warm and dry. No lesions noted. HEENT: Normocephalic. Pupils equal and round. Swollen and protruding tongue with right lateral scab present. Edentulous. CARDIOVASCULAR: Regular rate and rhythm. 5/6 systolic murmur appreciated. RESPIRATORY: No accessory muscle use. Clear to auscultation. Breath sounds equal bilaterally. GASTROINTESTINAL: Abdomen soft, non-tender, nondistended. Bowel sounds x4. PEG in place. MUSCULOSKELETAL: No obvious deformities. No clubbing or cyanosis. No edema. NEUROLOGICAL: Awake and alert. Nonverbal secondary to tongue edema and tracheostomy. 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 Paramedics arrived and she was ventilated with bag mask. She was endotracheal intubated in the emergency department where a head CT showed a large left hemispheric intraparenchymal hemorrhage with subarachnoid blood. Subsequent CTA revealed a left middle cerebral aneurysm. -Acute subarachnoid hemorrhage (left middle cerebral artery aneurysm)-- s/p endovascular coiling of MCA ruptured cerebral aneurysm 04/11 -Large left frontal hemorrhage with Intracranial hypertension with devastating neurologic injury- Patient with significant dominant hemisphere frontal temporal lobe hemorrhage and consequent cerebral injury and has had no meaningful neurologic recovery. s/p Dr. Meléndez performed left decompressive craniotomy 04/25 with evacuation of temporal hematoma. COMPUTER PATTERNMAKER shunt placed 05/07. S/p bone flap on 05/22. The patient has had some improvement and does follow most commands. Improving with PT. -Malignant Hypertension (Hypertensive emergency) on admission -- s/p 3 weeks of Nimotop therapy for vasospasm prevention. in SAH patient. now targeting SBP < 160. Continue Norvasc 10 q day, HCTZ 25 mg daily , labetalol 300 mg PO TID, hydralazine 75 mg q8. Hold parameters. Blood pressure stable. No change in management. 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 Not a candidate for surgical intervention due to recent devastating neuro injury -Acute respiratory failure (now chronic resp failure) secondary to SAH / ICH. s/ p tracheostomy 04/29. Continue DuoNeb q 4 hours as needed -Macroglossia. Tongue edema again secondary to lower teeth biting with remaining upper teeth. S/P extraction of teeth to help reduce tongue edema by Dr Booth. Without ecchymotic area. Per OMFS, wound care and monitor. Improving. Able to retract tongue inside her mouth with help of her finger. -Chronic mild Transaminitis. CT of the abdomen shows normal liver. Repeat LFTs stable and negative hepatitis profile -Mild protein calorie malnutrition - s/p PEG 04/28. Tolerating tube feeds (Jevity ) at goal of 60 cc/hr (-25-30 kcal/kg/day). Dietary recommendation bolus feedings to start. - Patient tolerating bolus feedings. -Anemia of chronic inflammation / disease. Hgb stable with no signs of active bleeding -Sepsis secondary to pneumonia and prior UTI - resolved, now off all abx. -Agitation-secondary to brain injury. Continue restraints as needed, still requiring restraints intermittently. Continue low-dose Xanax as needed. On Seroquel 25 mg twice daily, increased nighttime Seroquel dose to 50 mg. Caution with multiple sedating medications, hold parameters placed on Xanax and Lortab. Increase activities being OOB to chair and ambulation can possibly decrease pt. agitation and restlessness. -GI Prophylaxis: oral Zantac q 12. -DVT Prophylaxis - SCDs; Lovenox 40 q day -Rehab: PT / OT. Will eventually need LTACH / SNF. Ambulating in the hallway as per physical therapy. Have been increasing in her activities and tolerating it. 08/24/16: Patient doing well, no acute events, no changes in management. Continue with strengthening exercises with PT/OT. - Tolerating bolus feeds. Recommended to RN sit patient in chair outside room to decrease restlessness and agitation when she is more awake. 08/27/16: Patient is more interactive and she will benefit from ST. Consult speech therapy. Patient in nad. In the chair. 09/01/16 In nad. Continue the same management. No change. Discharge Planning Discharge to rehab when arranged, currently no accepting facility. Dee Henderson MD Sep 01, 2016 08:24
[2016-09-01] MEDS: QUEtiapine FUMARATE 25 MG TAB TUBE SCH ×3 (09:00→21:00)
[2016-09-01] MEDS: SODIUM CHLORIDE 0.9% FLUSH 5 ML FLUSH IVF SCH ×2 (09:10→21:00)
[2016-09-01] MEDS: ENOXAPARIN SODIUM 40 MG/0.4 ML SYRINGE SQ SCH (09:10)
[2016-09-01] MEDS: FAMOTIDINE 20 MG TAB TUBE SCH ×2 (09:11→21:00)
[2016-09-01] MEDS: CHLORHEXIDINE GLUCONATE 0.12% 30 ML CUP OTHER SCH ×2 (09:11→21:00)
[2016-09-02] VITALS (7 sets, daily range): BP systolic 107–138; BP diastolic 55–94; PULSE 67–85; RESP 19–20; TEMP 96.2–98.2; O2SAT 97–100
[2016-09-02] MEDS: LABETALOL HCL 300 MG TAB TUBE SCH ×3 (06:21→22:24)
[2016-09-02] MEDS: hydrALAZINE HCL 25 MG TAB TUBE SCH ×3 (06:22→22:00)
[2016-09-02] MEDS: SODIUM CHLORIDE 0.9% FLUSH 5 ML FLUSH IVF SCH ×2 (09:00→21:00)
[2016-09-02] MEDS: CHLORHEXIDINE GLUCONATE 0.12% 30 ML CUP OTHER SCH ×2 (10:02→22:31)
[2016-09-02] MEDS: QUEtiapine FUMARATE 25 MG TAB TUBE SCH ×2 (10:03→22:30)
[2016-09-02] MEDS: FAMOTIDINE 20 MG TAB TUBE SCH ×2 (10:03→22:23)
[2016-09-02] MEDS: ENOXAPARIN SODIUM 40 MG/0.4 ML SYRINGE SQ SCH (10:03)
--- NOTE | 2016-09-02 11:16 | HHI.PR ---
Subjective Remarks With PT. Was taking a shower today. No complaints. Appears in nad. Objective Vitals Vital Signs Date Time Temp Pulse Resp B/P Pulse Ox O2 Delivery O2 Flow Rate FiO2 09/02/16 08:02 97 T-piece 6.00 21 09/02/16 07:15 96.2 68 20 108/55 99 09/02/16 04:16 98.2 67 20 108/78 100 09/02/16 00:11 98.0 71 20 107/67 98 09/01/16 21:25 100 T-piece 6.00 28 09/01/16 20:11 98.3 80 20 131/73 100 09/01/16 19:00 100 6.00 28 09/01/16 16:00 98.0 85 20 119/76 100 09/01/16 12:00 97.5 88 20 169/86 97 09/01/16 11:30 98 T-piece 21 I/O 09/01/16 09/01/16 09/01/16 09/02/16 09/02/16 09/02/16 06:59 14:59 22:59 06:59 14:59 22:59 Intake Total 420 ml 420 ml Balance 420 ml 420 ml Tube Feeding 320 ml 320 ml Other 100 ml 100 ml # Voids 2 4 2 # Bowel Movements 0 2 1 Imaging Last Impressions Head CT 05/23/16 06 Signed Impressions: Service Date/Time: Monday, May 23, 2016 04:48 - CONCLUSION: 1. The left craniotomy defect has been repaired. 2. Small blood and air in the left subdural space, up to 6 mm in maximal thickness. Subdural drain in place. 3. Evolving encephalomalacia of the left frontal and temporal lobes. 4. 2 mm of rightward midline shift. 5. Shunted. No ventriculomegaly. Fei Hughes MD Chest X-Ray 05/17/16 0600 Signed Impressions: Service Date/Time: Tuesday, May 17, 2016 04:59 - CONCLUSION: 1. Minimal basilar atelectasis. Cardiomegaly. Quinn Bateman MD Skull X-Ray 05/08/16 0000 Signed Impressions: Service Date/Time: May 10:16 - CONCLUSION: Shunt set to 70-80 mm H2O. Fei Snyder MD Head CTA 05/02/16 0600 Signed Impressions: Service Date/Time: Monday, May 02, 2016 04:32 - CONCLUSION: Satisfactory appearance post aneurysm coiling Fei Snyder MD Abdomen/Pelvis CT 04/24/16 1416 Signed Impressions: Service Date/Time: March 14:39 - CONCLUSION: Mild small bowel ileus with scattered air-fluid levels. Bibasilar lung consolidation with associated small effusions. Significant soft tissue fluid accumulation with edematous changes throughout the abdominal wall. Nasogastric tube in good position. Saqib Garcia MD Neck CTA 04/11/16 1151 Signed Impressions: Service Date/Time: Monday, April 11, 2016 12:01 - CONCLUSION: Negative for hemodynamically significant carotid stenosis. Ricardo Castellanos MD FACR Cerebral Arteriogram 04/11/16 0000 Signed Impressions: Service Date/Time: Monday, April 11, 2016 14:18 - CONCLUSION: 1. 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 This is the aneurysm felt responsible for the intracranial hemorrhage. 2. Small 4 mm left M1 segment aneurysm. Attempts at embolizing this aneurysm were unsuccessful due to the broad based nature of the aneurysm. Endovascular repair of this aneurysm could not be performed. Kennedy Thibodeaux Jr., MD Objective Remarks GENERAL: Well-developed well-nourished. Currently calm and in 4 point restraints. Tongue extruding. doesn't appear in acute distress, however appears chronically ill patient. SKIN: Warm and dry. No lesions noted. HEENT: Normocephalic. Pupils equal and round. Swollen and protruding tongue with right lateral scab present. Edentulous. CARDIOVASCULAR: Regular rate and rhythm. 5/6 systolic murmur appreciated. RESPIRATORY: No accessory muscle use. Clear to auscultation. Breath sounds equal bilaterally. GASTROINTESTINAL: Abdomen soft, non-tender, nondistended. Bowel sounds x4. PEG in place. MUSCULOSKELETAL: No obvious deformities. No clubbing or cyanosis. No edema. NEUROLOGICAL: Awake and alert. Nonverbal secondary to tongue edema and tracheostomy. 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 Paramedics arrived and she was ventilated with bag mask. She was endotracheal intubated in the emergency department where a head CT showed a large left hemispheric intraparenchymal hemorrhage with subarachnoid blood. Subsequent CTA revealed a left middle cerebral aneurysm. -Acute subarachnoid hemorrhage (left middle cerebral artery aneurysm)-- s/p endovascular coiling of MCA ruptured cerebral aneurysm 04/11 -Large left frontal hemorrhage with Intracranial hypertension with devastating neurologic injury- Patient with significant dominant hemisphere frontal temporal lobe hemorrhage and consequent cerebral injury and has had no meaningful neurologic recovery. s/p Dr. Meléndez performed left decompressive craniotomy 04/25 with evacuation of temporal hematoma. NUT CULLER shunt placed 05/07. S/p bone flap on 05/22. The patient has had some improvement and does follow most commands. Improving with PT. -Malignant Hypertension (Hypertensive emergency) on admission -- s/p 3 weeks of Nimotop therapy for vasospasm prevention. in SAH patient. now targeting SBP < 160. Continue Norvasc 10 q day, HCTZ 25 mg daily , labetalol 300 mg PO TID, hydralazine 75 mg q8. Hold parameters. Blood pressure stable. No change in management. 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 Not a candidate for surgical intervention due to recent devastating neuro injury -Acute respiratory failure (now chronic resp failure) secondary to SAH / ICH. s/ p tracheostomy 04/29. Continue DuoNeb q 4 hours as needed -Macroglossia. Tongue edema again secondary to lower teeth biting with remaining upper teeth. S/P extraction of teeth to help reduce tongue edema by Dr Booth. Without ecchymotic area. Per OMFS, wound care and monitor. Improving. Able to retract tongue inside her mouth with help of her finger. -Chronic mild Transaminitis. CT of the abdomen shows normal liver. Repeat LFTs stable and negative hepatitis profile -Mild protein calorie malnutrition - s/p PEG 04/28. Tolerating tube feeds (Jevity ) at goal of 60 cc/hr (-25-30 kcal/kg/day). Dietary recommendation bolus feedings to start. - Patient tolerating bolus feedings. -Anemia of chronic inflammation / disease. Hgb stable with no signs of active bleeding -Sepsis secondary to pneumonia and prior UTI - resolved, now off all abx. -Agitation-secondary to brain injury. Continue restraints as needed, still requiring restraints intermittently. Continue low-dose Xanax as needed. On Seroquel 25 mg twice daily, increased nighttime Seroquel dose to 50 mg. Caution with multiple sedating medications, hold parameters placed on Xanax and Lortab. Increase activities being OOB to chair and ambulation can possibly decrease pt. agitation and restlessness. -GI Prophylaxis: oral Zantac q 12. -DVT Prophylaxis - SCDs; Lovenox 40 q day -Rehab: PT / OT. Will eventually need LTACH / SNF. Ambulating in the hallway as per physical therapy. Have been increasing in her activities and tolerating it. 08/24/16: Patient doing well, no acute events, no changes in management. Continue with strengthening exercises with PT/OT. - Tolerating bolus feeds. Recommended to RN sit patient in chair outside room to decrease restlessness and agitation when she is more awake. 08/27/16: Patient is more interactive and she will benefit from ST. Consult speech therapy. Patient in nad. In the chair. 09/02/16 In nad. Continue the same management. No change. Discharge Planning Discharge to rehab when arranged, currently no accepting facility. Dee Henderson MD Sep 02, 2016 11:16
[2016-09-02] MEDS: ALPRAZolam 0.25 MG TAB PO PRN (22:23)
[2016-09-03] VITALS (9 sets, daily range): BP systolic 113–158; BP diastolic 65–89; PULSE 62–76; RESP 17–20; TEMP 95.6–97.8; O2SAT 96–100
[2016-09-03] MEDS: ACETAMINOPHEN/HYDROcodone 325 MG/5 MG TAB TUBE PRN (01:34)
[2016-09-03] MEDS: LABETALOL HCL 300 MG TAB TUBE SCH ×3 (06:00→23:45)
[2016-09-03] MEDS: hydrALAZINE HCL 25 MG TAB TUBE SCH ×3 (06:00→23:45)
[2016-09-03] MEDS: CHLORHEXIDINE GLUCONATE 0.12% 30 ML CUP OTHER SCH ×2 (08:50→23:57)
[2016-09-03] MEDS: QUEtiapine FUMARATE 25 MG TAB TUBE SCH ×2 (08:50→23:45)
[2016-09-03] MEDS: SODIUM CHLORIDE 0.9% FLUSH 5 ML FLUSH IVF SCH ×2 (08:50→21:00)
[2016-09-03] MEDS: ENOXAPARIN SODIUM 40 MG/0.4 ML SYRINGE SQ SCH (08:50)
[2016-09-03] MEDS: FAMOTIDINE 20 MG TAB TUBE SCH ×2 (08:50→23:45)
--- NOTE | 2016-09-03 17:28 | HHI.PR ---
Subjective Remarks Patient getting clean by the ERP PM No acute complain Objective Vitals Vital Signs Date Time Temp Pulse Resp B/P Pulse Ox O2 Delivery O2 Flow Rate FiO2 09/03/16 12:00 96.2 71 20 128/82 96 09/03/16 08:43 98 T-piece 21 09/03/16 07:15 95.6 69 20 126/80 100 09/03/16 05:18 97.7 70 19 113/74 100 09/03/16 03:53 16 09/03/16 00:43 98 T-piece 21 09/03/16 00:04 97.8 72 18 142/78 100 09/02/16 20:53 97.6 74 19 125/80 100 I/O 09/02/16 09/02/16 09/02/16 09/03/16 09/03/16 09/03/16 06:59 14:59 22:59 06:59 14:59 22:59 # Voids 2 6 1 4 # Bowel Movements 1 0 0 Objective Remarks GENERAL: Well-developed well-nourished. . Tongue protruded. doesn't appear in acute distress, however appears chronically ill patient. SKIN: Warm and dry. No lesions noted. HEENT: Normocephalic. Pupils equal and round. Swollen and protruding tongue CARDIOVASCULAR: Regular rate and rhythm. 3/6 systolic murmur appreciated. RESPIRATORY: No accessory muscle use. Clear to auscultation. Breath sounds equal bilaterally. GASTROINTESTINAL: Abdomen soft, non-tender, nondistended. Bowel sounds x4. PEG in place. MUSCULOSKELETAL: No obvious deformities. No clubbing or cyanosis. No edema. NEUROLOGICAL: Awake and alert. 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 Paramedics arrived and she was ventilated with bag mask. She was endotracheal intubated in the emergency department where a head CT showed a large left hemispheric intraparenchymal hemorrhage with subarachnoid blood. Subsequent CTA revealed a left middle cerebral aneurysm. -Acute subarachnoid hemorrhage (left middle cerebral artery aneurysm)-- s/p endovascular coiling of MCA ruptured cerebral aneurysm 04/11 -Large left frontal hemorrhage with Intracranial hypertension with devastating neurologic injury- Patient with significant dominant hemisphere frontal temporal lobe hemorrhage and consequent cerebral injury and has had no meaningful neurologic recovery. s/p Dr. Meléndez performed left decompressive craniotomy 04/25 with evacuation of temporal hematoma. POWER OPERATOR shunt placed 05/07. S/p bone flap on 05/22. The patient has had some improvement and does follow most commands. Improving with PT. -Malignant Hypertension (Hypertensive emergency) on admission -- s/p 3 weeks of Nimotop therapy for vasospasm prevention. in SAH patient. now targeting SBP < 160. Continue Norvasc 10 q day, HCTZ 25 mg daily , labetalol 300 mg PO TID, hydralazine 75 mg q8. Hold parameters. Blood pressure stable. No change in management. 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 Not a candidate for surgical intervention due to recent devastating neuro injury -Acute respiratory failure (now chronic resp failure) secondary to SAH / ICH. s/ p tracheostomy 04/29. Continue DuoNeb q 4 hours as needed -Macroglossia. Tongue edema again secondary to lower teeth biting with remaining upper teeth. S/P extraction of teeth to help reduce tongue edema by Dr Booth. Without ecchymotic area. Per OMFS, wound care and monitor. Improving. Able to retract tongue inside her mouth with help of her finger. -Chronic mild Transaminitis. CT of the abdomen shows normal liver. Repeat LFTs stable and negative hepatitis profile -Mild protein calorie malnutrition - s/p PEG 8/29. Tolerating tube feeds (Jevity ) at goal of 60 cc/hr (-25-30 kcal/kg/day). Dietary recommendation bolus feedings to start. - Patient tolerating bolus feedings. -Anemia of chronic inflammation / disease. Hgb stable with no signs of active bleeding -Sepsis secondary to pneumonia and prior UTI - resolved, now off all abx. -Agitation-secondary to brain injury. Continue restraints as needed, still requiring restraints intermittently. Continue low-dose Xanax as needed. On Seroquel 25 mg twice daily, increased nighttime Seroquel dose to 50 mg. Caution with multiple sedating medications, hold parameters placed on Xanax and Lortab. Increase activities being OOB to chair and ambulation can possibly decrease pt. agitation and restlessness. -GI Prophylaxis: oral Zantac q 12. -DVT Prophylaxis - SCDs; Lovenox 40 q day -Rehab: PT / OT. Will eventually need LTACH / SNF. Ambulating in the hallway as per physical therapy. Have been increasing in her activities and tolerating it. 08/24/16: Patient doing well, no acute events, no changes in management. Continue with strengthening exercises with PT/OT. - Tolerating bolus feeds. Recommended to RN sit patient in chair outside room to decrease restlessness and agitation when she is more awake. 08/27/16: Patient is more interactive and she will benefit from ST. Consult speech therapy. Patient in nad. In the chair. 09/02/16 In nad. Continue the same management. No change. 09/03/16: Stable, no acute issue, continue current care Zeinab Ren MD Sep 03, 2016 17:27
[2016-09-03] MEDS: ALPRAZolam 0.25 MG TAB PO PRN (23:45)
[2016-09-04] VITALS (7 sets, daily range): BP systolic 107–138; BP diastolic 55–90; PULSE 63–95; RESP 17–20; TEMP 96.8–97.5; O2SAT 95–100
[2016-09-04] MEDS: ACETAMINOPHEN/HYDROcodone 325 MG/5 MG TAB TUBE PRN ×2 (02:30→14:31)
[2016-09-04] MEDS: LABETALOL HCL 300 MG TAB TUBE SCH ×3 (06:00→22:00)
[2016-09-04] MEDS: hydrALAZINE HCL 25 MG TAB TUBE SCH ×3 (06:24→22:00)
[2016-09-04] MEDS: QUEtiapine FUMARATE 25 MG TAB TUBE SCH ×2 (08:32→21:30)
[2016-09-04] MEDS: FAMOTIDINE 20 MG TAB TUBE SCH ×2 (08:32→21:30)
[2016-09-04] MEDS: CHLORHEXIDINE GLUCONATE 0.12% 30 ML CUP OTHER SCH ×2 (08:32→21:30)
[2016-09-04] MEDS: SODIUM CHLORIDE 0.9% FLUSH 5 ML FLUSH IVF SCH ×2 (08:33→21:00)
[2016-09-04] MEDS: ENOXAPARIN SODIUM 40 MG/0.4 ML SYRINGE SQ SCH (08:33)
--- NOTE | 2016-09-04 15:46 | HHI.PR ---
Subjective Remarks Sitting on the chair by the door Awake alert, comfortable, afebrile no acute distress Objective Vitals Vital Signs Date Time Temp Pulse Resp B/P Pulse Ox O2 Delivery O2 Flow Rate FiO2 09/04/16 12:41 96.8 71 19 138/90 98 09/04/16 11:35 96 T-piece 6.00 21 09/04/16 08:30 6.00 28 09/04/16 08:30 97.5 65 17 115/73 100 09/04/16 07:53 18 09/04/16 04:20 97.1 63 17 126/79 100 09/03/16 23:54 97.4 73 17 138/89 99 09/03/16 20:45 97.1 76 18 158/65 99 09/03/16 18:06 T-piece 21 09/03/16 15:45 97.0 62 20 132/71 98 I/O 09/03/16 09/03/16 09/03/16 09/04/16 09/04/16 09/04/16 06:59 14:59 22:59 06:59 14:59 22:59 # Voids 1 4 6 2 4 # Bowel Movements 0 0 1 0 Objective Remarks GENERAL: 46 years old female. . Tongue protruded. doesn't appear in acute distress, however appears chronically ill patient. SKIN: Warm and dry. No lesions noted. HEENT: Normocephalic. Pupils equal and round. Swollen and protruding tongue CARDIOVASCULAR: Regular rate and rhythm. 3/6 systolic murmur appreciated. RESPIRATORY: No accessory muscle use. Clear to auscultation. Breath sounds equal bilaterally. GASTROINTESTINAL: Abdomen soft, non-tender, nondistended. Bowel sounds x4. PEG in place. MUSCULOSKELETAL: No obvious deformities. No clubbing or cyanosis. No edema. NEUROLOGICAL: Awake and alert. 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 Paramedics arrived and she was ventilated with bag mask. She was endotracheal intubated in the emergency department where a head CT showed a large left hemispheric intraparenchymal hemorrhage with subarachnoid blood. Subsequent CTA revealed a left middle cerebral aneurysm. -Acute subarachnoid hemorrhage (left middle cerebral artery aneurysm)-- s/p endovascular coiling of MCA ruptured cerebral aneurysm 04/11 -Large left frontal hemorrhage with Intracranial hypertension with devastating neurologic injury- Patient with significant dominant hemisphere frontal temporal lobe hemorrhage and consequent cerebral injury and has had no meaningful neurologic recovery. s/p Dr. Meléndez performed left decompressive craniotomy 04/25 with evacuation of temporal hematoma. ARMATURE STRAIGHTENER shunt placed 05/07. S/p bone flap on 05/22. The patient has had some improvement and does follow most commands. Improving with PT. -Malignant Hypertension (Hypertensive emergency) on admission -- s/p 3 weeks of Nimotop therapy for vasospasm prevention. in SAH patient. now targeting SBP < 160. Continue Norvasc 10 q day, HCTZ 25 mg daily , labetalol 300 mg PO TID, hydralazine 75 mg q8. Hold parameters. Blood pressure stable. No change in management. 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 Not a candidate for surgical intervention due to recent devastating neuro injury -Acute respiratory failure (now chronic resp failure) secondary to SAH / ICH. s/ p tracheostomy 04/29. Continue DuoNeb q 4 hours as needed -Macroglossia. Tongue edema again secondary to lower teeth biting with remaining upper teeth. S/P extraction of teeth to help reduce tongue edema by Dr Booth. Without ecchymotic area. Per OMFS, wound care and monitor. Improving. Able to retract tongue inside her mouth with help of her finger. -Chronic mild Transaminitis. CT of the abdomen shows normal liver. Repeat LFTs stable and negative hepatitis profile -Mild protein calorie malnutrition - s/p PEG 04/28. Tolerating tube feeds (Jevity ) at goal of 60 cc/hr (-25-30 kcal/kg/day). Dietary recommendation bolus feedings to start. - Patient tolerating bolus feedings. -Anemia of chronic inflammation / disease. Hgb stable with no signs of active bleeding -Sepsis secondary to pneumonia and prior UTI - resolved, now off all abx. -Agitation-secondary to brain injury. Continue restraints as needed, still requiring restraints intermittently. Continue low-dose Xanax as needed. On Seroquel 25 mg twice daily, increased nighttime Seroquel dose to 50 mg. Caution with multiple sedating medications, hold parameters placed on Xanax and Lortab. Increase activities being OOB to chair and ambulation can possibly decrease pt. agitation and restlessness. -GI Prophylaxis: oral Zantac q 12. -DVT Prophylaxis - SCDs; Lovenox 40 q day -Rehab: PT / OT. Will eventually need LTACH / SNF. Ambulating in the hallway as per physical therapy. Have been increasing in her activities and tolerating it. 08/24/16: Patient doing well, no acute events, no changes in management. Continue with strengthening exercises with PT/OT. - Tolerating bolus feeds. Recommended to RN sit patient in chair outside room to decrease restlessness and agitation when she is more awake. Zeinab Ren MD Sep 04, 2016 15:45
[2016-09-05] VITALS (8 sets, daily range): BP systolic 100–135; BP diastolic 67–75; PULSE 75–92; RESP 18–20; TEMP 95.6–98.9; O2SAT 90–100
[2016-09-05] MEDS: LABETALOL HCL 300 MG TAB TUBE SCH ×3 (06:00→22:30)
[2016-09-05] MEDS: hydrALAZINE HCL 25 MG TAB TUBE SCH ×3 (06:00→22:30)
[2016-09-05] MEDS: CHLORHEXIDINE GLUCONATE 0.12% 30 ML CUP OTHER SCH ×2 (08:31→22:30)
[2016-09-05] MEDS: FAMOTIDINE 20 MG TAB TUBE SCH ×2 (08:32→22:30)
[2016-09-05] MEDS: QUEtiapine FUMARATE 25 MG TAB TUBE SCH ×2 (08:32→22:30)
[2016-09-05] MEDS: ENOXAPARIN SODIUM 40 MG/0.4 ML SYRINGE SQ SCH (08:32)
--- NOTE | 2016-09-05 12:15 | PD.CONS ---
[facility] Service Rehabilitation Medicine Consult Requested By Dr. Henderson Reason for Consult Comprehensive rehabilitation evaluation. Primary Care Physician Unknown History of Present Illness Carla Pride is a 46-year-old female mid [facility] 04/11/16 after being found unresponsive at home. Systolic blood pressure was 290. Head CT showed large left hemispheric intraparenchymal hemorrhage with subarachnoid hemorrhage. Ventriculostomy was placed. She was found to have left SIDEHAND aneurysm which was coiled. On 04/28/16 she underwent left frontotemporal parietal decompressive craniectomy with evacuation of temporal hematoma. PEG was placed 04/28/16 and trach was placed 04/29/16. She subsequently required PROJECT DEVELOPMENT COORDINATOR shunt placement 05/07/16. On 05/22/60 and she underwent left decompressive craniotomy with bone flap removal. Teeth extraction was performed 05/16/16 and 07/13/16. She is noted to have significant macroglossia. Consideration for septal ablation due to severe LV hypertrophy however deferred due to neurological injury. Review of Systems ROS Limitations: Clinical Condition, Altered Mental Status, Speech Impaired Cardiovascular: DENIES: Chest pain Gastrointestinal: DENIES: Abdominal pain Neurologic: DENIES: Headache Past Family Social History Allergies: Coded Allergies: No Known Allergies (Verified , 04/11/16) Past Medical History Hypertension Past Surgical History None noted Current Medications Current Medications Medications (Trade) Dose Ordered Sig/Zhanna Route Start Time Stop Time Status Last Admin (NS Flush) 2 ml UNSCH PRN IVF 04/11/16 13:30 (NS Flush) 2 ml BID IVF 04/11/16 21:00 09/01/16 09:10 (Zofran Inj) 4 mg Q6H PRN IV 04/11/16 13:30 05/20/16 04:01 (Lovenox Inj) 40 mg Q24H SQ 05/13/16 09:00 09/05/16 08:32 (Apresoline) 75 mg Q8HR TUBE 05/18/16 22:00 09/04/16 14:31 (Apresoline Inj) 10 mg Q6H PRN IV 07/13/16 21:45 (Mullens 5-325 Mg) 2 tab Q6H PRN TUBE 07/15/16 16:15 09/04/16 02:30 (Tylenol 650 Mg/ 20 ml Liq) 650 mg Q4H PRN TUBE 07/15/16 12:30 (Norvasc) 10 mg DAILY TUBE 07/16/16 09:00 09/05/16 08:32 (Catapres) 0.1 mg Q6H PRN TUBE 07/15/16 16:00 (Trandate) 300 mg Q8HR TUBE 07/15/16 14:00 09/04/16 14:31 (Xanax) 0.25 mg Q8H PRN PO 07/23/16 15:45 09/03/16 23:45 (Peridex 0.12% Liq) 30 ml BID OTHER 07/27/16 21:00 09/05/16 08:31 (SEROquel) 50 mg HS TUBE 08/06/16 21:00 09/04/16 21:30 (SEROquel) 25 mg DAILY TUBE 08/07/16 09:00 09/05/16 08:32 (Mullens 5-325 Mg) 1 tab Q6H PRN TUBE 08/07/16 16:15 09/04/16 14:31 (Pepcid) 20 mg Q12HR TUBE 08/17/16 21:00 09/05/16 08:32 Family History Unable to obtain Social History Prior to admission, patient lived in [place], [place]. She was independent with mobility and ADLs. Exam I&O / VS 09/04/16 09/04/16 09/05/16 15:00 23:00 07:00 # Voids 4 1 4 # Bowel Movements 0 1 1 Vital Signs Date Time Temp Pulse Resp B/P Pulse Ox O2 Delivery O2 Flow Rate FiO2 09/05/16 08:30 98 T-piece 5.00 21 09/05/16 07:58 97.0 75 18 126/69 98 09/05/16 04:00 98.9 81 18 130/72 90 09/05/16 00:00 97.1 92 20 134/75 96 09/04/16 21:25 69 107/75 09/04/16 19:30 6.00 28 09/04/16 19:00 97.0 82 20 131/55 95 09/04/16 16:24 97.1 95 20 126/72 100 09/04/16 12:41 96.8 71 19 138/90 98 General: No acute distress, Other (Restless but not agitated) Respiratory: Lungs CTA, Non-labored respirations, BS equal, Other (Trach with T -piece) Gastrointestinal: Positive Bowel Sounds, Non-Distended, Non-Tender, Other (PEG in place with no drainage) Cardiovascular: Normal rate, Regular Rhythm Skin: Other (No rash noted) Musculoskeletal: Swelling (None in LE) Psychiatric: Cooperative, Restless Orientation: oriented to Self, oriented to Place, oriented to Situation Neurologic: Pupils (PERRLA), EOM (Tracks right and left), Speech (Attempts to verbalize), Other (Tongue protruding) Motor: Right Upper Extremity (Grossly 4-5/5), Left Upper Extremity (Grossly 4-5 /5), Right Lower Extremity (Grossly 4-5/5), Left Lower Extremity (Grossly 4-5/5) DTRs: Normal Clonus: Negative Exam Comments Able to raise thumb and two fingers to command consistently Assessment and Plan Diagnosis: (1) Cerebral aneurysm rupture Assessment Currently [place] 4 Plan 1. Patient progressing with PT for mobility and now min -mod assist for transfers and ambulating 150 with wheeled walker. Continue to mobilize. 2. OT addressing ADL's and max to dependent 3. ST for swallow eval and NPO 4. Trach with T-piece at 5 liters. Continue to wean. Criteria for inpatient rehab is < 4 liters. Recheck labs. 5. Case management working on discharge planning and verifying family support for possible inpatient acute rehab admission 6. Will follow while hospitalized and at discharge Thank you for this consult. Martha Wiley MD Sep 05, 2016 12:15
--- NOTE | 2016-09-05 14:07 | HHI.PR ---
Subjective Remarks awake , in bed , no acute issues Objective Vitals Vital Signs Date Time Temp Pulse Resp B/P Pulse Ox O2 Delivery O2 Flow Rate FiO2 09/05/16 12:00 96.4 80 18 100/68 98 09/05/16 08:30 98 T-piece 5.00 21 09/05/16 07:58 97.0 75 18 126/69 98 09/05/16 04:00 98.9 81 18 130/72 90 09/05/16 00:00 97.1 92 20 134/75 96 09/04/16 21:25 69 107/75 09/04/16 19:30 6.00 28 09/04/16 19:00 97.0 82 20 131/55 95 09/04/16 16:24 97.1 95 20 126/72 100 I/O 09/04/16 09/04/16 09/04/16 09/05/16 09/05/16 09/05/16 07:00 15:00 23:00 07:00 15:00 23:00 # Voids 2 4 1 4 # Bowel Movements 1 0 1 1 Objective Remarks GENERAL: 46 years old female. . Tongue protruded. doesn't appear in acute distress, however appears chronically ill patient. SKIN: Warm and dry. No lesions noted. HEENT: Normocephalic. Pupils equal and round. Swollen and protruding tongue CARDIOVASCULAR: Regular rate and rhythm. 3/6 systolic murmur appreciated. RESPIRATORY: No accessory muscle use. Clear to auscultation. Breath sounds equal bilaterally. GASTROINTESTINAL: Abdomen soft, non-tender, nondistended. Bowel sounds x4. PEG in place. MUSCULOSKELETAL: No obvious deformities. No clubbing or cyanosis. No edema. NEUROLOGICAL: Awake and alert. 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 Paramedics arrived and she was ventilated with bag mask. She was endotracheal intubated in the emergency department where a head CT showed a large left hemispheric intraparenchymal hemorrhage with subarachnoid blood. Subsequent CTA revealed a left middle cerebral aneurysm. -Acute subarachnoid hemorrhage (left middle cerebral artery aneurysm)-- s/p endovascular coiling of MCA ruptured cerebral aneurysm 04/11 -Large left frontal hemorrhage with Intracranial hypertension with devastating neurologic injury- Patient with significant dominant hemisphere frontal temporal lobe hemorrhage and consequent cerebral injury and has had no meaningful neurologic recovery. s/p Dr. Meléndez performed left decompressive craniotomy 04/25 with evacuation of temporal hematoma. RABIES INSPECTOR shunt placed 05/07. S/p bone flap on 05/22. The patient has had some improvement and does follow most commands. Improving with PT. -Malignant Hypertension (Hypertensive emergency) on admission -- s/p 3 weeks of Nimotop therapy for vasospasm prevention. in SAH patient. now targeting SBP < 160. Continue Norvasc 10 q day, HCTZ 25 mg daily , labetalol 300 mg PO TID, hydralazine 75 mg q8. Hold parameters. Blood pressure stable. No change in management. 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 Not a candidate for surgical intervention due to recent devastating neuro injury -Acute respiratory failure (now chronic resp failure) secondary to SAH / ICH. s/ p tracheostomy 04/29. Continue DuoNeb q 4 hours as needed -Macroglossia. Tongue edema again secondary to lower teeth biting with remaining upper teeth. S/P extraction of teeth to help reduce tongue edema by Dr Booth. Without ecchymotic area. Per OMFS, wound care and monitor. Improving. Able to retract tongue inside her mouth with help of her finger. -Chronic mild Transaminitis. CT of the abdomen shows normal liver. Repeat LFTs stable and negative hepatitis profile -Mild protein calorie malnutrition - s/p PEG 04/28. Tolerating tube feeds (Jevity ) at goal of 60 cc/hr (-25-30 kcal/kg/day). Dietary recommendation bolus feedings to start. - Patient tolerating bolus feedings. -Anemia of chronic inflammation / disease. Hgb stable with no signs of active bleeding -Sepsis secondary to pneumonia and prior UTI - resolved, now off all abx. -Agitation-secondary to brain injury. Continue restraints as needed, still requiring restraints intermittently. Continue low-dose Xanax as needed. On Seroquel 25 mg twice daily, increased nighttime Seroquel dose to 50 mg. Caution with multiple sedating medications, hold parameters placed on Xanax and Lortab. Increase activities being OOB to chair and ambulation can possibly decrease pt. agitation and restlessness. -GI Prophylaxis: oral Zantac q 12. -DVT Prophylaxis - SCDs; Lovenox 40 q day -Rehab: PT / OT. Will eventually need LTACH / SNF. Ambulating in the hallway as per physical therapy. Have been increasing in her activities and tolerating it. 08/24/16: Patient doing well, no acute events, no changes in management. Continue with strengthening exercises with PT/OT. - Tolerating bolus feeds. Recommended to RN sit patient in chair outside room to decrease restlessness and agitation when she is more awake. Zeinab Ren MD Sep 05, 2016 14:07
[2016-09-05] MEDS: SODIUM CHLORIDE 0.9% FLUSH 5 ML FLUSH IVF SCH (21:00)
[2016-09-06] VITALS (7 sets, daily range): BP systolic 102–138; BP diastolic 66–83; PULSE 70–81; RESP 18–20; TEMP 96.5–98.1; O2SAT 98–100
[2016-09-06] MEDS: hydrALAZINE HCL 25 MG TAB TUBE SCH ×3 (06:00→21:14)
[2016-09-06] MEDS: LABETALOL HCL 300 MG TAB TUBE SCH ×3 (06:00→21:14)
[2016-09-06 07:56] LABS: EOSINOPHIL # 0.2 TH/MM3 (0-0.4); EOSINOPHIL % 4.2 % (0.0-4.0); HEMATOCRIT 36.1 % (35.0-46.0); HEMO FLAGS DIFF FINAL; LYMPH % 61.8 % (9.0-44.0); LYMPHOCYTE # 2.7 TH/MM3 (1.0-4.8); MEAN CELL VOLUME 77.5 FL (80.0-100.0); MEAN CORPUSCULAR HEMOGLOBIN 25.8 PG (27.0-34.0); MEAN CORPUSCULAR HGB CONC 33.3 % (32.0-36.0); MONO % 9.4 % (0.0-8.0); NEUT % 23.6 % (16.0-70.0); PLATELET COUNT 230 TH/MM3 (150-450); RED BLOOD COUNT 4.66 MIL/MM3 (4.00-5.30); RED CELL DISTRIBUTION WIDTH 18.3 % (11.6-17.2); WHITE BLOOD COUNT 4.4 TH/MM3 (4.0-11.0)
[2016-09-06 08:35] LABS: ALKALINE PHOSPHATASE 93 U/L (45-117); ALT (GPT) 71 U/L (10-53); ANION GAP 9 MEQ/L (5-15); AST (GOT) 32 U/L (15-37); BICARBONATE 27.6 MEQ/L (21.0-32.0); BLOOD UREA NITROGEN 17 MG/DL (7-18); CHLORIDE 103 MEQ/L (98-107); GLOMERULAR FILTRATION RATE 89 ML/MIN (>89); SODIUM (NA) 140 MEQ/L (136-145); TOTAL BILIRUBIN ADULT 0.5 MG/DL (0.2-1.0)
[2016-09-06] MEDS: CHLORHEXIDINE GLUCONATE 0.12% 30 ML CUP OTHER SCH ×2 (09:00→21:09)
[2016-09-06] MEDS: FAMOTIDINE 20 MG TAB TUBE SCH ×2 (09:51→21:02)
[2016-09-06] MEDS: ENOXAPARIN SODIUM 40 MG/0.4 ML SYRINGE SQ SCH (09:51)
[2016-09-06] MEDS: QUEtiapine FUMARATE 25 MG TAB TUBE SCH ×2 (09:51→21:02)
--- NOTE | 2016-09-06 11:11 | HHI.PR ---
Subjective Remarks Sleeping in bed, woke up to voice No acute issue, no fever or chest pain or short of breath Objective Vitals Vital Signs Date Time Temp Pulse Resp B/P Pulse Ox O2 Delivery O2 Flow Rate FiO2 09/06/16 10:00 6.00 28 09/06/16 08:00 96.5 71 20 138/83 100 09/06/16 04:31 97.9 81 20 126/72 98 09/06/16 00:04 98.1 78 20 119/80 100 09/05/16 20:03 98.1 75 20 135/68 100 09/05/16 19:50 6.00 28 09/05/16 17:43 98 T-piece 21 09/05/16 16:00 95.6 80 18 120/67 98 09/05/16 12:00 96.4 80 18 100/68 98 Result Diagram: 09/06/16 0716 09/06/16 0716 Objective Remarks GENERAL: 46 years old female. . Tongue protruded. doesn't appear in acute distress, however appears chronically ill patient. SKIN: Warm and dry. No lesions noted. HEENT: Normocephalic. Pupils equal and round. Swollen and protruding tongue CARDIOVASCULAR: Regular rate and rhythm. 3/6 systolic murmur appreciated. RESPIRATORY: No accessory muscle use. Clear to auscultation. Breath sounds equal bilaterally. GASTROINTESTINAL: Abdomen soft, non-tender, nondistended. Bowel sounds x4. PEG in place. MUSCULOSKELETAL: No obvious deformities. No clubbing or cyanosis. No edema. NEUROLOGICAL: Awake and alert. 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 Paramedics arrived and she was ventilated with bag mask. She was endotracheal intubated in the emergency department where a head CT showed a large left hemispheric intraparenchymal hemorrhage with subarachnoid blood. Subsequent CTA revealed a left middle cerebral aneurysm. -Acute subarachnoid hemorrhage (left middle cerebral artery aneurysm)-- s/p endovascular coiling of MCA ruptured cerebral aneurysm 04/11 -Large left frontal hemorrhage with Intracranial hypertension with devastating neurologic injury- Patient with significant dominant hemisphere frontal temporal lobe hemorrhage and consequent cerebral injury and has had no meaningful neurologic recovery. s/p Dr. Meléndez performed left decompressive craniotomy 04/25 with evacuation of temporal hematoma. LEARNING TECHNOLOGIST shunt placed 05/07. S/p bone flap on 05/22. The patient has had some improvement and does follow most commands. Improving with PT. -Malignant Hypertension (Hypertensive emergency) on admission -- s/p 3 weeks of Nimotop therapy for vasospasm prevention. in SAH patient. now targeting SBP < 160. Continue Norvasc 10 q day, HCTZ 25 mg daily , labetalol 300 mg PO TID, hydralazine 75 mg q8. Hold parameters. Blood pressure stable. No change in management. 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 Not a candidate for surgical intervention due to recent devastating neuro injury -Acute respiratory failure (now chronic resp failure) secondary to SAH / ICH. s/ p tracheostomy 04/29. Continue DuoNeb q 4 hours as needed -Macroglossia. Tongue edema again secondary to lower teeth biting with remaining upper teeth. S/P extraction of teeth to help reduce tongue edema by Dr Booth. Without ecchymotic area. Per OMFS, wound care and monitor. Improving. Able to retract tongue inside her mouth with help of her finger. -Chronic mild Transaminitis. CT of the abdomen shows normal liver. Repeat LFTs stable and negative hepatitis profile -Mild protein calorie malnutrition - s/p PEG 04/28. Tolerating tube feeds (Jevity ) at goal of 60 cc/hr (-25-30 kcal/kg/day). Dietary recommendation bolus feedings to start. - Patient tolerating bolus feedings. -Anemia of chronic inflammation / disease. Hgb stable with no signs of active bleeding -Sepsis secondary to pneumonia and prior UTI - resolved, now off all abx. -Agitation-secondary to brain injury. Continue restraints as needed, still requiring restraints intermittently. Continue low-dose Xanax as needed. On Seroquel 25 mg twice daily, increased nighttime Seroquel dose to 50 mg. Caution with multiple sedating medications, hold parameters placed on Xanax and Lortab. Increase activities being OOB to chair and ambulation can possibly decrease pt. agitation and restlessness. -GI Prophylaxis: oral Zantac q 12. -DVT Prophylaxis - SCDs; Lovenox 40 q day -Rehab: PT / OT. Will eventually need LTACH / SNF. Ambulating in the hallway as per physical therapy. Have been increasing in her activities and tolerating it. 08/24/16: Patient doing well, no acute events, no changes in management. Continue with strengthening exercises with PT/OT. - Tolerating bolus feeds. Recommended to RN sit patient in chair outside room to decrease restlessness and agitation when she is more awake. Zeinab Ren MD Sep 06, 2016 11:11
[2016-09-06] MEDS: SODIUM CHLORIDE 0.9% FLUSH 5 ML FLUSH IVF SCH (21:00)
[2016-09-07] VITALS (9 sets, daily range): BP systolic 98–140; BP diastolic 73–90; PULSE 73–99; RESP 16–18; TEMP 97.1–98; O2SAT 95–100
[2016-09-07] MEDS: hydrALAZINE HCL 25 MG TAB TUBE SCH ×3 (05:07→21:19)
[2016-09-07] MEDS: LABETALOL HCL 300 MG TAB TUBE SCH ×3 (05:16→21:19)
[2016-09-07] MEDS: SODIUM CHLORIDE 0.9% FLUSH 5 ML FLUSH IVF SCH ×2 (09:00→21:00)
[2016-09-07] MEDS: FAMOTIDINE 20 MG TAB TUBE SCH ×2 (09:52→21:19)
[2016-09-07] MEDS: CHLORHEXIDINE GLUCONATE 0.12% 30 ML CUP OTHER SCH ×2 (09:53→21:00)
[2016-09-07] MEDS: QUEtiapine FUMARATE 25 MG TAB TUBE SCH ×2 (09:53→21:19)
[2016-09-07] MEDS: ENOXAPARIN SODIUM 40 MG/0.4 ML SYRINGE SQ SCH (09:53)
--- NOTE | 2016-09-07 11:46 | HHI.PR ---
Subjective Remarks Patient laying on the recliner chair Sleeping woke up to voice Afebrile, no acute issue Objective Vitals Vital Signs Date Time Temp Pulse Resp B/P Pulse Ox O2 Delivery O2 Flow Rate FiO2 09/07/16 08:00 97.7 94 18 114/81 98 09/07/16 07:49 99 T-piece 21 09/07/16 05:19 Room Air T-Piece Humidified 09/07/16 03:52 97.2 77 18 120/82 95 09/07/16 00:17 97.1 76 18 128/80 99 09/06/16 19:56 97.4 80 18 102/66 98 09/06/16 16:00 97.1 70 18 128/76 99 09/06/16 12:27 99 T-piece 21 09/06/16 12:00 97.1 70 18 134/80 100 I/O 09/06/16 09/06/16 09/06/16 09/07/16 09/07/16 09/07/16 06:59 14:59 22:59 06:59 14:59 22:59 Intake Total 420 ml 420 ml 540 ml Balance 420 ml 420 ml 540 ml Tube Feeding 320 ml 320 ml 340 ml Other 100 ml 100 ml 200 ml # Voids 1 3 2 # Bowel Movements 0 Result Diagram: 09/06/1616 09/06/16 07 Objective Remarks GENERAL: 46 years old female. . Tongue protruded. doesn't appear in acute distress, however appears chronically ill patient. SKIN: Warm and dry. No lesions noted. HEENT: Normocephalic. Pupils equal and round. Swollen and protruding tongue CARDIOVASCULAR: Regular rate and rhythm. 3/6 systolic murmur appreciated. RESPIRATORY: No accessory muscle use. Clear to auscultation. Breath sounds equal bilaterally. GASTROINTESTINAL: Abdomen soft, non-tender, nondistended. Bowel sounds x4. PEG in place. MUSCULOSKELETAL: No obvious deformities. No clubbing or cyanosis. No edema. NEUROLOGICAL: Awake and alert. 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 Paramedics arrived and she was ventilated with bag mask. She was endotracheal intubated in the emergency department where a head CT showed a large left hemispheric intraparenchymal hemorrhage with subarachnoid blood. Subsequent CTA revealed a left middle cerebral aneurysm. -Acute subarachnoid hemorrhage (left middle cerebral artery aneurysm)-- s/p endovascular coiling of MCA ruptured cerebral aneurysm 04/11 -Large left frontal hemorrhage with Intracranial hypertension with devastating neurologic injury- Patient with significant dominant hemisphere frontal temporal lobe hemorrhage and consequent cerebral injury and has had no meaningful neurologic recovery. s/p Dr. Meléndez performed left decompressive craniotomy 04/25 with evacuation of temporal hematoma. WATER FILTERER shunt placed 05/07. S/p bone flap on 05/22. The patient has had some improvement and does follow most commands. Improving with PT. -Malignant Hypertension (Hypertensive emergency) on admission -- s/p 3 weeks of Nimotop therapy for vasospasm prevention. in SAH patient. now targeting SBP < 160. Continue Norvasc 10 q day, HCTZ 25 mg daily , labetalol 300 mg PO TID, hydralazine 75 mg q8. Hold parameters. Blood pressure stable. No change in management. 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 Not a candidate for surgical intervention due to recent devastating neuro injury -Acute respiratory failure (now chronic resp failure) secondary to SAH / ICH. s/ p tracheostomy 04/29. Continue DuoNeb q 4 hours as needed -Macroglossia. Tongue edema again secondary to lower teeth biting with remaining upper teeth. S/P extraction of teeth to help reduce tongue edema by Dr Booth. Without ecchymotic area. Per OMFS, wound care and monitor. Improving. Able to retract tongue inside her mouth with help of her finger. -Chronic mild Transaminitis. CT of the abdomen shows normal liver. Repeat LFTs stable and negative hepatitis profile -Mild protein calorie malnutrition - s/p PEG 04/28. Tolerating tube feeds (Jevity ) at goal of 60 cc/hr (-25-30 kcal/kg/day). Dietary recommendation bolus feedings to start. - Patient tolerating bolus feedings. -Anemia of chronic inflammation / disease. Hgb stable with no signs of active bleeding -Sepsis secondary to pneumonia and prior UTI - resolved, now off all abx. -Agitation-secondary to brain injury. Continue restraints as needed, still requiring restraints intermittently. Continue low-dose Xanax as needed. On Seroquel 25 mg twice daily, increased nighttime Seroquel dose to 50 mg. Caution with multiple sedating medications, hold parameters placed on Xanax and Lortab. Increase activities being OOB to chair and ambulation can possibly decrease pt. agitation and restlessness. -GI Prophylaxis: oral Zantac q 12. -DVT Prophylaxis - SCDs; Lovenox 40 q day -Rehab: PT / OT. Will eventually need LTACH / SNF. Ambulating in the hallway as per physical therapy. Have been increasing in her activities and tolerating it. 08/24/16: Patient doing well, no acute events, no changes in management. Continue with strengthening exercises with PT/OT. - Tolerating bolus feeds. Recommended to RN sit patient in chair outside room to decrease restlessness and agitation when she is more awake. Zeinab Ren MD Sep 07, 2016 11:46
[2016-09-08] VITALS (7 sets, daily range): BP systolic 98–130; BP diastolic 62–79; PULSE 68–86; RESP 16–19; TEMP 95.4–97.6; O2SAT 93–100
[2016-09-08] MEDS: hydrALAZINE HCL 25 MG TAB TUBE SCH ×3 (06:00→21:36)
[2016-09-08] MEDS: LABETALOL HCL 300 MG TAB TUBE SCH ×3 (06:00→21:36)
[2016-09-08] MEDS: ENOXAPARIN SODIUM 40 MG/0.4 ML SYRINGE SQ SCH (10:34)
[2016-09-08] MEDS: FAMOTIDINE 20 MG TAB TUBE SCH ×2 (10:35→21:36)
[2016-09-08] MEDS: CHLORHEXIDINE GLUCONATE 0.12% 30 ML CUP OTHER SCH ×2 (10:35→21:37)
[2016-09-08] MEDS: QUEtiapine FUMARATE 25 MG TAB TUBE SCH ×2 (10:35→21:36)
[2016-09-08] MEDS: SODIUM CHLORIDE 0.9% FLUSH 5 ML FLUSH IVF SCH ×2 (10:36→21:00)
--- NOTE | 2016-09-08 12:24 | HHI.PR ---
Subjective Remarks Stable, laying in bed in no benign nonverbal, no acute issue Objective Vitals Vital Signs Date Time Temp Pulse Resp B/P Pulse Ox O2 Delivery O2 Flow Rate FiO2 09/08/16 12:19 98 21 09/08/16 11:40 Room Air Trach Collar Humidified 09/08/16 08:00 96.5 68 18 107/77 99 09/08/16 04:00 97.3 86 16 98/75 100 09/07/16 23:51 Room Air Trach Collar Humidified 09/07/16 23:32 97.4 73 18 111/77 100 09/07/16 21:24 98 Trach Collar 21 09/07/16 20:22 97.8 79 16 98/73 96 09/07/16 16:00 97.6 91 18 123/85 95 I/O 09/07/16 09/07/16 09/07/16 09/08/16 09/08/16 09/08/16 07:00 15:00 23:00 07:00 15:00 23:00 Intake Total 540 ml 380 ml 420 ml 960 ml Balance 540 ml 380 ml 420 ml 960 ml Tube Feeding 340 ml 320 ml 320 ml 640 ml Tube Irrigant 60 ml 100 ml Other 200 ml 320 ml # Voids 2 4 2 # Bowel Movements 0 0 Result Diagram: 09/06/1671509/06/16715 Objective Remarks GENERAL: 46 years old female. . Tongue protruded. doesn't appear in acute distress, however appears chronically ill patient. SKIN: Warm and dry. No lesions noted. HEENT: Normocephalic. Pupils equal and round. Swollen and protruding tongue CARDIOVASCULAR: Regular rate and rhythm. 3/6 systolic murmur appreciated. RESPIRATORY: No accessory muscle use. Clear to auscultation. Breath sounds equal bilaterally. GASTROINTESTINAL: Abdomen soft, non-tender, nondistended. Bowel sounds x4. PEG in place. MUSCULOSKELETAL: No obvious deformities. No clubbing or cyanosis. No edema. NEUROLOGICAL: Awake and alert. 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 ICD Code: I69.11 Status: Chronic (8) Chronic respiratory failure ICD Code: J96.10 Status: Chronic (9) Malignant hypertension ICD Code: I10 Status: Resolved Assessment and Plan 09/03/16: Stable, no acute issue, continue current care 09/04/16: Continue current care, no acute issue 09/05/16: cont same management , cbc bmp reviewed wnl 09/06/16: No acute issue, continue current care 09/07/16: Continue same management 09/08/16: Continue current care, no acute issues overnight A/P: This is a 46-year-old female with past medical history of hypertension who was found unresponsive at her home on April 11. Paramedics arrived and she was ventilated with bag mask. She was endotracheal intubated in the emergency department where a head CT showed a large left hemispheric intraparenchymal hemorrhage with subarachnoid blood. Subsequent CTA revealed a left middle cerebral aneurysm. -Acute subarachnoid hemorrhage (left middle cerebral artery aneurysm)-- s/p endovascular coiling of MCA ruptured cerebral aneurysm 04/11 -Large left frontal hemorrhage with Intracranial hypertension with devastating neurologic injury- Patient with significant dominant hemisphere frontal temporal lobe hemorrhage and consequent cerebral injury and has had no meaningful neurologic recovery. s/p Dr. Meléndez performed left decompressive craniotomy 04/25 with evacuation of temporal hematoma. RETAIL ACCOUNT EXECUTIVE shunt placed 05/07. S/p bone flap on 05/22. The patient has had some improvement and does follow most commands. Improving with PT. -Malignant Hypertension (Hypertensive emergency) on admission -- s/p 3 weeks of Nimotop therapy for vasospasm prevention. in SAH patient. now targeting SBP < 160. Continue Norvasc 10 q day, HCTZ 25 mg daily , labetalol 300 mg PO TID, hydralazine 75 mg q8. Hold parameters. Blood pressure stable. No change in management. 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 Not a candidate for surgical intervention due to recent devastating neuro injury -Acute respiratory failure (now chronic resp failure) secondary to SAH / ICH. s/ p tracheostomy 04/29. Continue DuoNeb q 4 hours as needed -Macroglossia. Tongue edema again secondary to lower teeth biting with remaining upper teeth. S/P extraction of teeth to help reduce tongue edema by Dr Booth. Without ecchymotic area. Per OMFS, wound care and monitor. Improving. Able to retract tongue inside her mouth with help of her finger. -Chronic mild Transaminitis. CT of the abdomen shows normal liver. Repeat LFTs stable and negative hepatitis profile -Mild protein calorie malnutrition - s/p PEG 04/28. Tolerating tube feeds (Jevity ) at goal of 60 cc/hr (-25-30 kcal/kg/day). Dietary recommendation bolus feedings to start. - Patient tolerating bolus feedings. -Anemia of chronic inflammation / disease. Hgb stable with no signs of active bleeding -Sepsis secondary to pneumonia and prior UTI - resolved, now off all abx. -Agitation-secondary to brain injury. Continue restraints as needed, still requiring restraints intermittently. Continue low-dose Xanax as needed. On Seroquel 25 mg twice daily, increased nighttime Seroquel dose to 50 mg. Caution with multiple sedating medications, hold parameters placed on Xanax and Lortab. Increase activities being OOB to chair and ambulation can possibly decrease pt. agitation and restlessness. -GI Prophylaxis: oral Zantac q 12. -DVT Prophylaxis - SCDs; Lovenox 40 q day -Rehab: PT / OT. Will eventually need LTACH / SNF. Ambulating in the hallway as per physical therapy. Have been increasing in her activities and tolerating it. 08/24/16: Patient doing well, no acute events, no changes in management. Continue with strengthening exercises with PT/OT. - Tolerating bolus feeds. Recommended to RN sit patient in chair outside room to decrease restlessness and agitation when she is more awake. Zeinab Ren MD Sep 08, 2016 12:24
[2016-09-08] MEDS: ACETAMINOPHEN/HYDROcodone 325 MG/5 MG TAB TUBE PRN (21:43)
[2016-09-09] VITALS (7 sets, daily range): BP systolic 99–122; BP diastolic 56–78; PULSE 61–83; RESP 20; TEMP 96.1–97.9; O2SAT 98–100
[2016-09-09] MEDS: LABETALOL HCL 300 MG TAB TUBE SCH ×3 (05:47→22:00)
[2016-09-09] MEDS: hydrALAZINE HCL 25 MG TAB TUBE SCH ×3 (05:47→22:00)
[2016-09-09] MEDS: QUEtiapine FUMARATE 25 MG TAB TUBE SCH ×2 (11:04→20:17)
[2016-09-09] MEDS: ENOXAPARIN SODIUM 40 MG/0.4 ML SYRINGE SQ SCH (11:04)
[2016-09-09] MEDS: CHLORHEXIDINE GLUCONATE 0.12% 30 ML CUP OTHER SCH ×2 (11:04→20:17)
[2016-09-09] MEDS: SODIUM CHLORIDE 0.9% FLUSH 5 ML FLUSH IVF SCH ×2 (11:04→21:00)
[2016-09-09] MEDS: FAMOTIDINE 20 MG TAB TUBE SCH ×2 (11:04→20:17)
--- NOTE | 2016-09-09 13:13 | HHI.PR ---
Subjective Remarks Resting in bed, open eyes, she signed with her eyes that she doesn't have pain Objective Vitals Vital Signs Date Time Temp Pulse Resp B/P Pulse Ox O2 Delivery O2 Flow Rate FiO2 09/09/16 10:29 99 T-piece 21 09/09/16 08:00 97.4 70 20 99/56 99 09/09/16 04:00 97.2 61 20 122/76 98 09/09/16 04:00 Trach Collar 09/09/16 00:00 97.3 73 20 107/70 100 09/09/16 00:00 Trach Collar 09/08/16 21:06 93 Trach Collar 21.00 09/08/16 20:00 97.6 70 18 127/79 98 09/08/16 20:00 Trach Collar 09/08/16 14:00 95.4 72 16 103/62 100 I/O 09/08/16 09/08/16 09/08/16 09/09/16 09/09/16 09/09/16 07:00 15:00 23:00 07:00 15:00 23:00 Intake Total 960 ml 520 ml 520 ml Balance 960 ml 520 ml 520 ml Tube Feeding 640 ml 320 ml 320 ml Other 320 ml 200 ml 200 ml # Voids 2 3 3 # Bowel Movements 0 3 Result Diagram: 09/06/1671509/06/16715 Objective Remarks GENERAL: 46 years old female. . Tongue protruded. doesn't appear in acute distress, however appears chronically ill patient. SKIN: Warm and dry. No lesions noted. HEENT: Normocephalic. Pupils equal and round. Swollen and protruding tongue CARDIOVASCULAR: Regular rate and rhythm. 3/6 systolic murmur appreciated. RESPIRATORY: No accessory muscle use. Clear to auscultation. Breath sounds equal bilaterally. GASTROINTESTINAL: Abdomen soft, non-tender, nondistended. Bowel sounds x4. PEG in place. MUSCULOSKELETAL: No obvious deformities. No clubbing or cyanosis. No edema. NEUROLOGICAL: Awake and alert. 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 ICD Code: I69.11 Status: Chronic (8) Chronic respiratory failure ICD Code: J96.10 Status: Chronic (9) Malignant hypertension ICD Code: I10 Status: Resolved Assessment and Plan 09/03/16: Stable, no acute issue, continue current care 09/04/16: Continue current care, no acute issue 09/05/16: cont same management , cbc bmp reviewed wnl 09/06/16: No acute issue, continue current care 09/07/16: Continue same management 09/08/16: Continue current care, no acute issues overnight 09/09/16: Continue ongoing management A/P: This is a 46-year-old female with past medical history of hypertension who was found unresponsive at her home on April 11. Paramedics arrived and she was ventilated with bag mask. She was endotracheal intubated in the emergency department where a head CT showed a large left hemispheric intraparenchymal hemorrhage with subarachnoid blood. Subsequent CTA revealed a left middle cerebral aneurysm. -Acute subarachnoid hemorrhage (left middle cerebral artery aneurysm)-- s/p endovascular coiling of MCA ruptured cerebral aneurysm 04/11 -Large left frontal hemorrhage with Intracranial hypertension with devastating neurologic injury- Patient with significant dominant hemisphere frontal temporal lobe hemorrhage and consequent cerebral injury and has had no meaningful neurologic recovery. s/p Dr. Meléndez performed left decompressive craniotomy 04/25 with evacuation of temporal hematoma. BISQUE GRADER shunt placed 05/07. S/p bone flap on 05/22. The patient has had some improvement and does follow most commands. Improving with PT. -Malignant Hypertension (Hypertensive emergency) on admission -- s/p 3 weeks of Nimotop therapy for vasospasm prevention. in SAH patient. now targeting SBP < 160. Continue Norvasc 10 q day, HCTZ 25 mg daily , labetalol 300 mg PO TID, hydralazine 75 mg q8. Hold parameters. Blood pressure stable. No change in management. 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 Not a candidate for surgical intervention due to recent devastating neuro injury -Acute respiratory failure (now chronic resp failure) secondary to SAH / ICH. s/ p tracheostomy 04/29. Continue DuoNeb q 4 hours as needed -Macroglossia. Tongue edema again secondary to lower teeth biting with remaining upper teeth. S/P extraction of teeth to help reduce tongue edema by Dr Booth. Without ecchymotic area. Per OMFS, wound care and monitor. Improving. Able to retract tongue inside her mouth with help of her finger. -Chronic mild Transaminitis. CT of the abdomen shows normal liver. Repeat LFTs stable and negative hepatitis profile -Mild protein calorie malnutrition - s/p PEG 04/28. Tolerating tube feeds (Jevity ) at goal of 60 cc/hr (-25-30 kcal/kg/day). Dietary recommendation bolus feedings to start. - Patient tolerating bolus feedings. -Anemia of chronic inflammation / disease. Hgb stable with no signs of active bleeding -Sepsis secondary to pneumonia and prior UTI - resolved, now off all abx. -Agitation-secondary to brain injury. Continue restraints as needed, still requiring restraints intermittently. Continue low-dose Xanax as needed. On Seroquel 25 mg twice daily, increased nighttime Seroquel dose to 50 mg. Caution with multiple sedating medications, hold parameters placed on Xanax and Lortab. Increase activities being OOB to chair and ambulation can possibly decrease pt. agitation and restlessness. -GI Prophylaxis: oral Zantac q 12. -DVT Prophylaxis - SCDs; Lovenox 40 q day -Rehab: PT / OT. Will eventually need LTACH / SNF. Ambulating in the hallway as per physical therapy. Have been increasing in her activities and tolerating it. 08/24/16: Patient doing well, no acute events, no changes in management. Continue with strengthening exercises with PT/OT. - Tolerating bolus feeds. Recommended to RN sit patient in chair outside room to decrease restlessness and agitation when she is more awake. Discharge Planning Difficulty placement, case picker following Zeinab Ren MD Sep 09, 2016 13:13
[2016-09-09] MEDS: ACETAMINOPHEN/HYDROcodone 325 MG/5 MG TAB TUBE PRN (20:19)
[2016-09-10] VITALS (9 sets, daily range): BP systolic 111–125; BP diastolic 65–82; PULSE 55–79; RESP 18–20; TEMP 96.2–97.8; O2SAT 10–100
[2016-09-10] MEDS: LABETALOL HCL 300 MG TAB TUBE SCH ×3 (06:00→23:12)
[2016-09-10] MEDS: hydrALAZINE HCL 25 MG TAB TUBE SCH ×3 (06:00→23:12)
[2016-09-10] MEDS: FAMOTIDINE 20 MG TAB TUBE SCH ×2 (08:02→23:11)
[2016-09-10] MEDS: QUEtiapine FUMARATE 25 MG TAB TUBE SCH ×2 (08:02→23:11)
[2016-09-10] MEDS: ENOXAPARIN SODIUM 40 MG/0.4 ML SYRINGE SQ SCH (08:02)
[2016-09-10] MEDS: SODIUM CHLORIDE 0.9% FLUSH 5 ML FLUSH IVF SCH ×2 (08:03→21:00)
[2016-09-10] MEDS: CHLORHEXIDINE GLUCONATE 0.12% 30 ML CUP OTHER SCH ×2 (08:09→23:11)
--- NOTE | 2016-09-10 10:12 | HHI.FF ---
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 My clinical findings support the need for the requested home health care services because: Ltd mobility - disease progression Limited ability to care for self I certify that my clinical findings support that this patient is homebound because: Impaired cognitive ability/safety Unsafe to leave home unassisted Zeinab Ren MD Sep 10, 2016 10:12
[2016-09-10] MEDS ORDERED: WHEEMIS3 (10:14)
[2016-09-10] MEDS ORDERED: GETGO ROLLING W1 MI1 (10:14)
[2016-09-10] MEDS: ACETAMINOPHEN/HYDROcodone 325 MG/5 MG TAB TUBE PRN (23:13)
[2016-09-11] VITALS (10 sets, daily range): BP systolic 99–129; BP diastolic 54–77; PULSE 66–98; RESP 17–20; TEMP 95.8–98.2; O2SAT 98–100
[2016-09-11] MEDS: hydrALAZINE HCL 25 MG TAB TUBE SCH ×3 (06:00→22:26)
[2016-09-11] MEDS: LABETALOL HCL 300 MG TAB TUBE SCH ×3 (06:00→22:21)
--- NOTE | 2016-09-11 08:49 | HHI.PR ---
Subjective Remarks Follow up visit ICH, restlessness, s/p trach/ peg, angioedema. pt. seen today. Awake, alert, follows commands and responds to simple questions. SAMS. States she is doing well. As per RN, no acute issues, continues to be restless at times trying to get out of bed without assist. Pt. denies pain/ discomfort. Denies SOB/ dyspnea, n/v/d. Objective Vitals Vital Signs Date Time Temp Pulse Resp B/P Pulse Ox O2 Delivery O2 Flow Rate FiO2 09/11/16 08:14 95.8 79 18 116/59 98 09/11/16 07:51 98 Trach Collar 6.00 21 09/11/16 06:15 109/70 09/11/16 06:13 99/54 09/11/16 06:08 97.1 66 20 122/70 98 09/11/16 00:00 97.1 70 20 108/74 99 09/10/16 21:40 96 Trach Collar 21 09/10/16 20:25 97.6 70 20 111/71 98 09/10/16 20:00 96.8 68 20 125/82 99 09/10/16 19:26 Trach Collar 09/10/16 16:00 97.8 79 18 113/68 100 09/10/16 12:00 96.8 72 18 121/80 100 09/10/16 11:49 99 T-piece 21 09/10/16 10:41 100 Room Air I/O 09/10/16 09/10/16 09/10/16 09/11/16 09/11/16 09/11/16 07:00 15:00 23:00 07:00 15:00 23:00 Intake Total 820 ml 420 ml Balance 820 ml 420 ml Tube Feeding 640 ml 320 ml Other 180 ml 100 ml # Voids 3 2 3 2 # Bowel Movements 1 0 0 Imaging Last Impressions Head CT 05/23/16 0600 Signed Impressions: Service Date/Time: Monday, May 23, 2016 04:48 - CONCLUSION: 1. The left craniotomy defect has been repaired. 2. Small blood and air in the left subdural space, up to 6 mm in maximal thickness. Subdural drain in place. 3. Evolving encephalomalacia of the left frontal and temporal lobes. 4. 2 mm of rightward midline shift. 5. Shunted. No ventriculomegaly. Fei Hughes MD Chest X-Ray 05/17/16 0600 Signed Impressions: Service Date/Time: Tuesday, May 17, 2016 04:59 - CONCLUSION: 1. Minimal basilar atelectasis. Cardiomegaly. Quinn Bateman MD Skull X-Ray 05/08/16 0000 Signed Impressions: Service Date/Time: May 10:16 - CONCLUSION: Shunt set to 70-80 mm H2O. Fei Snyder MD Head CTA 05/02/16 0600 Signed Impressions: Service Date/Time: Monday, May 02, 2016 04:32 - CONCLUSION: Satisfactory appearance post aneurysm coiling Fei Snyder MD Abdomen/Pelvis CT 04/24/16 1416 Signed Impressions: Service Date/Time: March 14:39 - CONCLUSION: Mild small bowel ileus with scattered air-fluid levels. Bibasilar lung consolidation with associated small effusions. Significant soft tissue fluid accumulation with edematous changes throughout the abdominal wall. Nasogastric tube in good position. Saqib Garcia MD Neck CTA 04/11/16 1151 Signed Impressions: Service Date/Time: Monday, April 11, 2016 12:01 - CONCLUSION: Negative for hemodynamically significant carotid stenosis. Ricardo Castellanos MD FACR Cerebral Arteriogram 04/11/16 0000 Signed Impressions: Service Date/Time: Monday, April 11, 2016 14:18 - CONCLUSION: 1. 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 This is the aneurysm felt responsible for the intracranial hemorrhage. 2. Small 4 mm left M1 segment aneurysm. Attempts at embolizing this aneurysm were unsuccessful due to the broad based nature of the aneurysm. Endovascular repair of this aneurysm could not be performed. Kennedy Thibodeaux Jr., MD Objective Remarks GENERAL: Well-nourished, well-developed middle aged female patient in NAD. SKIN: Warm and dry. No rash. HEAD: Normocephalic. Atraumatic. EYES: Pupils equal and round. No scleral icterus. No injection or drainage. ENT: Swollen and protruding tongue, able to be pulled back in her mouth with use of finger; no active bleeding; improving. S/p dental extractions. NECK: Tracheostomy in place. #6 [place] CARDIOVASCULAR: Regular rate and rhythm. S1, S2 noted. 5/6 systolic murmur noted. RESPIRATORY: No accessory muscle use. Coarse breath sounds throughout. Trach collar humidified. GASTROINTESTINAL: Abdomen soft, non-tender, nondistended. Normoactive bowel sounds x4. Peg in place. MUSCULOSKELETAL: No obvious deformities.Bilat lower Extremities without clubbing , cyanosis, or edema. Bilateral upper extremities with trace edema. NEUROLOGICAL: Awake, alert. Tongue protrusion and tracheostomy, answers simple questions. Follows commands. Ambulating. Walker use. 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 Paramedics arrived and she was ventilated with bag mask. She was endotracheal intubated in the emergency department where a head CT showed a large left hemispheric intraparenchymal hemorrhage with subarachnoid blood. Subsequent CTA revealed a left middle cerebral aneurysm. -Acute subarachnoid hemorrhage (left middle cerebral artery aneurysm)-- s/p endovascular coiling of MCA ruptured cerebral aneurysm 04/11 -Large left frontal hemorrhage with Intracranial hypertension with devastating neurologic injury- Patient with significant dominant hemisphere frontal temporal lobe hemorrhage and consequent cerebral injury and has had no meaningful neurologic recovery. s/p Dr. Meléndez performed left decompressive craniotomy 04/25 with evacuation of temporal hematoma. FLASH DESIGNER shunt placed 05/07. S/p bone flap on 05/22. The patient has had some improvement and does follow most commands. Improving with PT. -Malignant Hypertension (Hypertensive emergency) on admission -- s/p 3 weeks of Nimotop therapy for vasospasm prevention. in SAH patient. now targeting SBP < 160. Continue Norvasc 10 q day, HCTZ 25 mg daily , labetalol 300 mg PO TID, hydralazine 75 mg q8. Hold parameters. Blood pressure stable. No change in management. 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 Not a candidate for surgical intervention due to recent devastating neuro injury -Acute respiratory failure (now chronic resp failure) secondary to SAH / ICH. s/ p tracheostomy 04/29. Continue DuoNeb q 4 hours as needed. Suction PRN. -Macroglossia. Tongue edema again secondary to lower teeth biting with remaining upper teeth. S/P extraction of teeth to help reduce tongue edema by Dr Booth. Without ecchymotic area. Per OMFS, wound care and monitor. Improving. Able to retract tongue inside her mouth with help of her finger. -Chronic mild Transaminitis. CT of the abdomen shows normal liver. Repeat LFTs stable and negative hepatitis profile -Mild protein calorie malnutrition - s/p PEG 04/28. - Patient tolerating bolus feedings. -Anemia of chronic inflammation / disease. Hgb stable with no signs of active bleeding -Sepsis secondary to pneumonia and prior UTI - resolved, now off all abx. Resolved. -Agitation-secondary to brain injury. Continue restraints as needed, still requiring restraints intermittently. Continue low-dose Xanax as needed. On Seroquel . Caution with multiple sedating medications, hold parameters placed on Xanax and Lortab. Increase activities being OOB to chair and ambulation can possibly decrease pt. agitation and restlessness. -GI Prophylaxis: Pepcid -DVT Prophylaxis - SCDs; Lovenox 40 q day -Rehab: PT / OT. Will eventually need LTACH / SNF. Ambulating in the hallway as per physical therapy. Have been increasing in her activities and tolerating it. 09/11/15: Patient doing well, no acute events, no changes in management. Continue with strengthening exercises with PT/OT. - Tolerating bolus feeds. Continue with OOB activities and sitting outside her room to decrease restlessness. Monitor for increase risk for falls. Discuss with patient, RN nursing, and Dr. Momin. Discharge Planning Discharge to rehab when arranged, currently no accepting facility. Aidan Thompson Sep 11, 2016 08:49
[2016-09-11] MEDS: SODIUM CHLORIDE 0.9% FLUSH 5 ML FLUSH IVF SCH ×2 (09:00→21:00)
[2016-09-11] MEDS: FAMOTIDINE 20 MG TAB TUBE SCH ×2 (09:58→22:21)
[2016-09-11] MEDS: CHLORHEXIDINE GLUCONATE 0.12% 30 ML CUP OTHER SCH ×2 (09:58→22:21)
[2016-09-11] MEDS: QUEtiapine FUMARATE 25 MG TAB TUBE SCH ×2 (09:59→22:21)
[2016-09-11] MEDS: ENOXAPARIN SODIUM 40 MG/0.4 ML SYRINGE SQ SCH (09:59)
[2016-09-11] MEDS: ALPRAZolam 0.25 MG TAB PO PRN (22:21)
--- NOTE | 2016-09-11 22:33 | RADRPT ---
EXAM DATE/TIME: 09/11/2016 21:43 [facility] COMPARISON: CT BRAIN W/O CONTRAST, May 23, 2016, 4:48. INDICATIONS : Fall. RADIATION DOSE: 56.77 CTDIvol (mGy) MEDICAL HISTORY : Hypertension. SURGICAL HISTORY : Craniotomy. shunt, coils ENCOUNTER: Subsequent ACUITY: 4 - 6 months PAIN SCALE: Non-responsive LOCATION: Cranial TECHNIQUE: Multiple contiguous axial images were obtained of the head. Using automated exposure control and adjustment of the mA and/or kV according to patient size, radiation dose was kept as low as reasonably achievable to obtain optimal diagnostic quality images. FINDINGS: Ventriculostomy is in the expected location of the third ventricle. Ventricles are sli ghtly larger than the comparison study. There is no residual parenchymal hemorrhage. Previously described small subdural blood on the left larsen s resolved. Posterior fossa is normal. Aneurysm clip is evident. Evidence for craniotomy is seen on the left. CONCLUSION: No significant interval change. Status post ventriculostomy and aneurysm clipping. Ricardo Castellanos MD FACR on September 11, 2016 at 22:28 Board Certified Radiologist. This report was verified electronically.
[2016-09-12] VITALS (8 sets, daily range): BP systolic 91–131; BP diastolic 59–80; PULSE 68–85; RESP 15–20; TEMP 96.2–98; O2SAT 95–99
[2016-09-12] MEDS: ACETAMINOPHEN/HYDROcodone 325 MG/5 MG TAB TUBE PRN ×3 (01:20→18:23)
[2016-09-12] MEDS: hydrALAZINE HCL 25 MG TAB TUBE SCH ×3 (06:00→22:00)
[2016-09-12] MEDS: LABETALOL HCL 300 MG TAB TUBE SCH ×3 (06:00→22:00)
[2016-09-12] MEDS: ENOXAPARIN SODIUM 40 MG/0.4 ML SYRINGE SQ SCH (08:45)
[2016-09-12] MEDS: QUEtiapine FUMARATE 25 MG TAB TUBE SCH ×2 (08:46→22:30)
[2016-09-12] MEDS: SODIUM CHLORIDE 0.9% FLUSH 5 ML FLUSH IVF SCH ×2 (08:47→21:00)
[2016-09-12] MEDS: CHLORHEXIDINE GLUCONATE 0.12% 30 ML CUP OTHER SCH ×2 (08:47→22:29)
[2016-09-12] MEDS: FAMOTIDINE 20 MG TAB TUBE SCH ×2 (08:47→22:30)
--- NOTE | 2016-09-12 10:48 | HHI.DS ---
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 Paramedics arrived and she was ventilated with bag mask. She was endotracheal intubated in the emergency department where a head CT showed a large left hemispheric intraparenchymal hemorrhage with subarachnoid blood. Subsequent CTA revealed a left middle cerebral aneurysm. The patient was admitted to the intensive care unit under Dr. Meléndez. She underwent a ventriculostomy and subsequently underwent coiling of the left middle cerebral aneurysm. HOTBED TRANSFER OPERATOR shunt placed 05/07. The patient had left decompressive craniotomy on April 25 with evacuation of temporal hematoma. The patient had PEG placement April 28. The patient underwent tracheostomy on April 29. The patient was also treated for sepsis secondary to pneumonia and UTI. She is now currently off all antibiotics. The patient also at some point suffered a tongue laceration and underwent repair of the tongue laceration and upper teeth extraction on May [address] Booth. From discussion with the nurse today, her heart rate has been running slightly lower so her labetalol was held. A bone flap replacement is being scheduled for next week per Dr. Meléndez. The patient has been on TPs since May 15. Per review of the chart she has had very poor neurologic recovery. Palliative care had been consulted several weeks ago. At this point the family desires aggressive care and the patient remains a full code. The patient also was found to have findings of hypertrophic obstructive cardiomyopathy on 2-D echocardiogram, but is not considered to be a candidate for septal ablation due to her devastating neurologic injury. I discussed the patient's care with Dr. Enamorado, nail sticker who had been caring for her. Review of systems not obtainable secondary to the patient's encephalopathy. Imaging Last Impressions Head CT 09/11/16 0000 Signed Impressions: Service Date/Time: August 21:43 - CONCLUSION: No significant interval change. Status post ventriculostomy and aneurysm clipping. Ricardo Castellanos MD FACR Chest X-Ray 05/17/16 0600 Signed Impressions: Service Date/Time: Tuesday, May 17, 2016 04:59 - CONCLUSION: 1. Minimal basilar atelectasis. Cardiomegaly. Quinn Bateman MD Skull X-Ray 05/08/16 0000 Signed Impressions: Service Date/Time: May 10:16 - CONCLUSION: Shunt set to 70-80 mm H2O. Fei Snyder MD Head CTA 05/02/16 0600 Signed Impressions: Service Date/Time: Monday, May 02, 2016 04:32 - CONCLUSION: Satisfactory appearance post aneurysm coiling Fei Snyder MD Abdomen/Pelvis CT 04/24/16 1416 Signed Impressions: Service Date/Time: March 14:39 - CONCLUSION: Mild small bowel ileus with scattered air-fluid levels. Bibasilar lung consolidation with associated small effusions. Significant soft tissue fluid accumulation with edematous changes throughout the abdominal wall. Nasogastric tube in good position. Saqib Garcia MD Neck CTA 04/11/16 1151 Signed Impressions: Service Date/Time: Monday, April 11, 2016 12:01 - CONCLUSION: Negative for hemodynamically significant carotid stenosis. Ricardo Castellanos MD FACR Cerebral Arteriogram 04/11/16 0000 Signed Impressions: Service Date/Time: Monday, April 11, 2016 14:18 - CONCLUSION: 1. 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 This is the aneurysm felt responsible for the intracranial hemorrhage. 2. Small 4 mm left M1 segment aneurysm. Attempts at embolizing this aneurysm were unsuccessful due to the broad based nature of the aneurysm. Endovascular repair of this aneurysm could not be performed. Kennedy Thibodeaux Jr., MD PE at Discharge GENERAL: Well-nourished, well-developed middle aged female patient in [facility]. SKIN: Warm and dry. No rash. HEAD: Normocephalic. Atraumatic. EYES: Pupils equal and round. No scleral icterus. No injection or drainage. ENT: Swollen and protruding tongue, able to be pulled back in her mouth with use of finger; no active bleeding; improving. S/p dental extractions. NECK: Tracheostomy in place. #6 Shiley CARDIOVASCULAR: Regular rate and rhythm. S1, S2 noted. 5/6 systolic murmur noted. RESPIRATORY: No accessory muscle use. Coarse breath sounds throughout. Trach collar humidified. GASTROINTESTINAL: Abdomen soft, non-tender, nondistended. Normoactive bowel sounds x4. Peg in place. MUSCULOSKELETAL: No obvious deformities.Bilat lower Extremities without clubbing , cyanosis, or edema. Bilateral upper extremities with trace edema. NEUROLOGICAL: Awake, alert. Tongue protrusion and tracheostomy, answers simple questions. Follows commands. Ambulating. Walker use. Hospital Course This is a 46-year-old female with past medical history of hypertension who was found unresponsive at her home on April 11. Paramedics arrived and she was ventilated with bag mask. She was endotracheal intubated in the emergency department where a head CT showed a large left hemispheric intraparenchymal hemorrhage with subarachnoid blood. Subsequent CTA revealed a left middle cerebral aneurysm. -Acute subarachnoid hemorrhage (left middle cerebral artery aneurysm)-- s/p endovascular coiling of MCA ruptured cerebral aneurysm 04/11 -Large left frontal hemorrhage with Intracranial hypertension with devastating neurologic injury- Patient with significant dominant hemisphere frontal temporal lobe hemorrhage and consequent cerebral injury and has had no meaningful neurologic recovery. s/p Dr. Meléndez performed left decompressive craniotomy 04/25 with evacuation of temporal hematoma. HOTBED TRANSFER OPERATOR shunt placed 05/07. S/p bone flap on 05/22. The patient has had some improvement and does follow most commands. Improving with PT. -Malignant Hypertension (Hypertensive emergency) on admission -- s/p 3 weeks of Nimotop therapy for vasospasm prevention. in SAH patient. now targeting SBP < 160. Continue Norvasc 10 q day, HCTZ 25 mg daily , labetalol 300 mg PO TID, hydralazine 75 mg q8. Hold parameters. Blood pressure stable. No change in management. 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 Not a candidate for surgical intervention due to recent devastating neuro injury -Acute respiratory failure (now chronic resp failure) secondary to SAH / ICH. s/ p tracheostomy 04/29. Continue DuoNeb q 4 hours as needed. Suction PRN. -Macroglossia. Tongue edema again secondary to lower teeth biting with remaining upper teeth. S/P extraction of teeth to help reduce tongue edema by Dr Booth. Without ecchymotic area. Per OMFS, wound care and monitor. Improving. Able to retract tongue inside her mouth with help of her finger. -Chronic mild Transaminitis. CT of the abdomen shows normal liver. Repeat LFTs stable and negative hepatitis profile -Mild protein calorie malnutrition - s/p PEG 04/28. - Patient tolerating bolus feedings. -Anemia of chronic inflammation / disease. Hgb stable with no signs of active bleeding -Sepsis secondary to pneumonia and prior UTI - resolved, now off all abx. Resolved. -Agitation-secondary to brain injury. Continue restraints as needed, still requiring restraints intermittently. Continue low-dose Xanax as needed. On Seroquel . Caution with multiple sedating medications, hold parameters placed on Xanax and Lortab. Increase activities being OOB to chair and ambulation can possibly decrease pt. agitation and restlessness. -GI Prophylaxis: Pepcid -DVT Prophylaxis - SCDs; Lovenox 40 q day -Rehab: PT / OT. Will eventually need LTACH / SNF. Ambulating in the hallway as per physical therapy. Have been increasing in her activities and tolerating it. 09/12/15: Patient status post fall last night. Right eyebrow abrasion. CT of the head showed no significant interval change. Status post ventriculostomy and aneurysm clipping. - Monitor for falls. Encouraged activities out of bed to avoid restlessness. - Case management working on patient for DC home as per family request. Pt Condition on Discharge: Stable Discharge Disposition: Disch w/ Home Health Serv Discharge Instructions DIET: Follow Instructions for: On Tube Feeding Activities you can perform: Regular-No Restrictions Aidan Thompson Sep 12, 2016 10:48 Dutch Momin DO Sep 28, 2016 22:59
[2016-09-12] MEDS ORDERED: HOSP BED2 (10:49)
--- NOTE | 2016-09-12 10:57 | HHI.PR ---
Subjective Remarks Follow up visit ICH, restlessness, s/p trach/ peg, angioedema. Patient reported had a fall last night. CT of the head showed no significant interval change. Status post ventriculostomy and aneurysm clipping. Patient lethargic and drowsy. As per RN, she got Seroquel and pain medications. Continues to have periods of restlessness. Appears comfortable. Objective Vitals Vital Signs Date Time Temp Pulse Resp B/P Pulse Ox O2 Delivery O2 Flow Rate FiO2 09/12/16 10:09 18 09/12/16 09:58 96 Trach Collar 21 09/12/16 08:20 96.9 85 20 109/71 98 09/12/16 06:18 110/76 09/12/16 05:55 97.4 79 18 91/62 99 09/12/16 03:15 Trach Collar 09/12/16 01:50 96.2 79 20 104/59 99 09/11/16 22:04 97.3 79 20 129/77 100 09/11/16 20:00 96.9 88 20 109/70 100 09/11/16 16:34 96.4 98 17 127/74 99 09/11/16 12:21 98.2 81 18 116/74 98 I/O 09/11/16 09/11/16 09/11/16 09/12/16 09/12/16 09/12/16 07:00 15:00 23:00 07:00 15:00 23:00 # Voids 2 3 1 1 # Bowel Movements 0 1 1 0 Imaging Last Impressions Head CT 09/11/16 0000 Signed Impressions: Service Date/Time: August 21:43 - CONCLUSION: No significant interval change. Status post ventriculostomy and aneurysm clipping. Ricardo Castellanos MD FACR Chest X-Ray 05/17/16 0600 Signed Impressions: Service Date/Time: Tuesday, May 17, 2016 04:59 - CONCLUSION: 1. Minimal basilar atelectasis. Cardiomegaly. Quinn Bateman MD Skull X-Ray 05/08/16 0000 Signed Impressions: Service Date/Time: May 10:16 - CONCLUSION: Shunt set to 70-80 mm H2O. Fei Snyder MD Head CTA 05/02/16 0600 Signed Impressions: Service Date/Time: Monday, May 02, 2016 04:32 - CONCLUSION: Satisfactory appearance post aneurysm coiling Fei Snyder MD Abdomen/Pelvis CT 04/24/16 1416 Signed Impressions: Service Date/Time: March 14:39 - CONCLUSION: Mild small bowel ileus with scattered air-fluid levels. Bibasilar lung consolidation with associated small effusions. Significant soft tissue fluid accumulation with edematous changes throughout the abdominal wall. Nasogastric tube in good position. Saqib Garcia MD Neck CTA 04/11/16 1151 Signed Impressions: Service Date/Time: Monday, April 11, 2016 12:01 - CONCLUSION: Negative for hemodynamically significant carotid stenosis. Ricardo Castellanos MD FACR Cerebral Arteriogram 04/11/16 0000 Signed Impressions: Service Date/Time: Monday, April 11, 2016 14:18 - CONCLUSION: 1. 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 This is the aneurysm felt responsible for the intracranial hemorrhage. 2. Small 4 mm left M1 segment aneurysm. Attempts at embolizing this aneurysm were unsuccessful due to the broad based nature of the aneurysm. Endovascular repair of this aneurysm could not be performed. Kennedy Thibodeaux Jr., MD Objective Remarks GENERAL: Well-nourished, well-developed middle aged female patient in [facility]. SKIN: Warm and dry. No rash. HEAD: Normocephalic. Atraumatic. EYES: Pupils equal and round. No scleral icterus. No injection or drainage. ENT: Swollen and protruding tongue; no active bleeding; improving. S/p dental extractions. NECK: Tracheostomy in place. #6 Shiley CARDIOVASCULAR: Regular rate and rhythm. S1, S2 noted. 5/6 systolic murmur noted. RESPIRATORY: No accessory muscle use. Coarse breath sounds throughout. Trach collar humidified. GASTROINTESTINAL: Abdomen soft, non-tender, nondistended. Normoactive bowel sounds x4. Peg in place. MUSCULOSKELETAL: No obvious deformities. Bilat lower Extremities without clubbing, cyanosis, or edema. Bilateral upper extremities with trace edema. NEUROLOGICAL: Drowsy/lethargic. Tongue protrusion and tracheostomy, answers simple questions. Follows commands. Ambulating. Walker use. 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 Paramedics arrived and she was ventilated with bag mask. She was endotracheal intubated in the emergency department where a head CT showed a large left hemispheric intraparenchymal hemorrhage with subarachnoid blood. Subsequent CTA revealed a left middle cerebral aneurysm. -Acute subarachnoid hemorrhage (left middle cerebral artery aneurysm)-- s/p endovascular coiling of MCA ruptured cerebral aneurysm 04/11 -Large left frontal hemorrhage with Intracranial hypertension with devastating neurologic injury- Patient with significant dominant hemisphere frontal temporal lobe hemorrhage and consequent cerebral injury and has had no meaningful neurologic recovery. s/p Dr. Meléndez performed left decompressive craniotomy 04/25 with evacuation of temporal hematoma. MISSILE TECHNICIAN shunt placed 05/07. S/p bone flap on 05/22. The patient has had some improvement and does follow most commands. Improving with PT. -Malignant Hypertension (Hypertensive emergency) on admission -- s/p 3 weeks of Nimotop therapy for vasospasm prevention. in SAH patient. now targeting SBP < 160. Continue Norvasc 10 q day, HCTZ 25 mg daily , labetalol 300 mg PO TID, hydralazine 75 mg q8. Hold parameters. Blood pressure stable. No change in management. 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 Not a candidate for surgical intervention due to recent devastating neuro injury -Acute respiratory failure (now chronic resp failure) secondary to SAH / ICH. s/ p tracheostomy 04/29. Continue DuoNeb q 4 hours as needed. Suction PRN. -Macroglossia. Tongue edema again secondary to lower teeth biting with remaining upper teeth. S/P extraction of teeth to help reduce tongue edema by Dr Booth. Without ecchymotic area. Per OMFS, wound care and monitor. Improving. Able to retract tongue inside her mouth with help of her finger. -Chronic mild Transaminitis. CT of the abdomen shows normal liver. Repeat LFTs stable and negative hepatitis profile -Mild protein calorie malnutrition - s/p PEG 04/28. - Patient tolerating bolus feedings. -Anemia of chronic inflammation / disease. Hgb stable with no signs of active bleeding -Sepsis secondary to pneumonia and prior UTI - resolved, now off all abx. Resolved. -Agitation-secondary to brain injury. Continue restraints as needed, still requiring restraints intermittently. Continue low-dose Xanax as needed. On Seroquel . Caution with multiple sedating medications, hold parameters placed on Xanax and Lortab. Increase activities being OOB to chair and ambulation can possibly decrease pt. agitation and restlessness. -GI Prophylaxis: Pepcid -DVT Prophylaxis - SCDs; Lovenox 40 q day -Rehab: PT / OT. Will eventually need LTACH / SNF. Ambulating in the hallway as per physical therapy. Have been increasing in her activities and tolerating it. 09/11/15: Patient doing well, no acute events, no changes in management. Continue with strengthening exercises with PT/OT. - Tolerating bolus feeds. Continue with OOB activities and sitting outside her room to decrease restlessness. Monitor for increase risk for falls. 09/12/15: Patient status post fall last night. Right eyebrow abrasion. CT of the head showed no significant interval change. Status post ventriculostomy and aneurysm clipping. - Monitor for falls. Encouraged activities out of bed to avoid restlessness. - Case management working on patient for DC home as per family request. Discuss with patient, RN nursing, and Dr. Momin. Discharge Planning Possible discharge to home with family members vs snf facility. Aidan Thompson Sep 12, 2016 10:57
--- NOTE | 2016-09-12 17:21 | RADRPT ---
EXAM DATE/TIME: 09/12/2016 16:47 [facility] COMPARISON: No previous studies available for comparison. INDICATIONS : Left leg pain post fall. MEDICAL HISTORY : None. SURGICAL HISTORY : None. ENCOUNTER: Initial ACUITY: 1 day PAIN SCORE: Non-responsive. LOCATION: Left femur FINDINGS: Two view examination of the left femur demonstrates no evidence of fracture or dislocation. Bony min eralization is normal. The soft tissue structures are intact. CONCLUSION: No acute disease. Maged Sin MD on September 12, 2016 at 17:20 Board Certified Radiologist. This report was verified electronically.
--- NOTE | 2016-09-12 17:21 | RADRPT ---
EXAM DATE/TIME: 09/12/2016 16:42 [facility] COMPARISON: No previous studies available for comparison. INDICATIONS : Right hip pain post fall. MEDICAL HISTORY : None. SURGICAL HISTORY : None. ENCOUNTER: Initial ACUITY: 1 day PAIN SCORE: Non-responsive. LOCATION: Right hip FINDINGS: Examination of the right hip was performed with AP Pelvis. The primary and secondary trabecular clarissa ron of the femoral neck is intact. The hip joint is of normal width without significant sclerosis or bony hypertrophy. The acetabulum is grossly intact. CONCLUSION: No acute disease. Maged Sin MD on September 12, 2016 at 17:19 Board Certified Radiologist. This report was verified electronically.
--- NOTE | 2016-09-12 17:21 | RADRPT ---
EXAM DATE/TIME: 09/12/2016 16:44 [facility] COMPARISON: No previous studies available for comparison. INDICATIONS : Hip pain post fall. MEDICAL HISTORY : None. SURGICAL HISTORY : None. ENCOUNTER: Initial ACUITY: 1 day PAIN SCORE: Non-responsive. LOCATION: Left hip FINDINGS: A two view examination of the left hip was performed. The primary and secondary trabecular pattern o f the femoral neck is intact. The hip joint is of normal width without significant sclerosis or bony hypertrophy. The acetabulum is grossly intact. CONCLUSION: No acute disease. Maged Sin MD on September 12, 2016 at 17:20 Board Certified Radiologist. This report was verified electronically.
--- NOTE | 2016-09-12 17:22 | RADRPT ---
EXAM DATE/TIME: 09/12/2016 16:51 [facility] COMPARISON: No previous studies available for comparison. INDICATIONS : Right leg pain post fall. MEDICAL HISTORY : None. SURGICAL HISTORY : None. ENCOUNTER: Initial ACUITY: 1 day PAIN SCORE: Non-responsive. LOCATION: Right femur FINDINGS: Two view examination of the right femur demonstrates no evidence of fracture or dislocation. Bony mi neralization is normal. The soft tissue structures are intact. CONCLUSION: No acute disease. Maged Sin MD on September 12, 2016 at 17:20 Board Certified Radiologist. This report was verified electronically.
[2016-09-13] VITALS (9 sets, daily range): BP systolic 107–137; BP diastolic 75–88; PULSE 73–94; RESP 18–20; TEMP 96.8–98.5; O2SAT 93–99
[2016-09-13] MEDS: hydrALAZINE HCL 25 MG TAB TUBE SCH ×3 (05:40→22:15)
[2016-09-13] MEDS: LABETALOL HCL 300 MG TAB TUBE SCH ×3 (05:41→22:15)
[2016-09-13] MEDS: SODIUM CHLORIDE 0.9% FLUSH 5 ML FLUSH IVF SCH ×2 (09:00→21:00)
[2016-09-13] MEDS: QUEtiapine FUMARATE 25 MG TAB TUBE SCH ×2 (11:00→22:16)
[2016-09-13] MEDS: FAMOTIDINE 20 MG TAB TUBE SCH ×2 (11:00→22:15)
[2016-09-13] MEDS: ENOXAPARIN SODIUM 40 MG/0.4 ML SYRINGE SQ SCH (11:00)
[2016-09-13] MEDS: CHLORHEXIDINE GLUCONATE 0.12% 30 ML CUP OTHER SCH ×2 (11:02→22:14)
--- NOTE | 2016-09-13 14:40 | HHI.PR ---
Subjective Remarks Follow up visit ICH, restlessness, s/p trach/ peg, angioedema. Ms. Pride is sitting by the door, looking through magazines. She does not verbalize but denies any acute concerns. Objective Vitals Vital Signs Date Time Temp Pulse Resp B/P Pulse Ox O2 Delivery O2 Flow Rate FiO2 09/13/16 12:08 97 T-piece 6.00 21 09/13/16 12:00 96.8 81 18 133/81 98 09/13/16 08:00 98.0 88 18 137/88 96 09/13/16 04:00 97.9 91 20 107/77 95 09/13/16 01:39 99 Trach Collar 6.00 21 09/13/16 00:00 97.7 75 20 112/75 98 09/12/16 21:30 98 Simple Mask 28 09/12/16 20:29 20 09/12/16 20:00 98.0 79 20 103/80 97 09/12/16 15:45 96.2 73 15 131/79 95 I/O 09/12/16 09/12/16 09/12/16 09/13/16 09/13/16 09/13/16 07:00 15:00 23:00 07:00 15:00 23:00 # Voids 1 1 3 # Bowel Movements 0 0 0 Objective Remarks GENERAL: Alert, responds to verbal commands. NAD. SKIN: Warm and dry. HEAD: Normocephalic. Tongue edema present and protruded. Severed right side, mouth guard in place. EYES: No scleral icterus. No injection or drainage. NECK: Supple, trachea midline. No JVD or lymphadenopathy. CARDIOVASCULAR: Regular rate and rhythm without murmurs, gallops, or rubs. RESPIRATORY: Breath sounds equal bilaterally. No accessory muscle use. GASTROINTESTINAL: Abdomen soft, non-tender, nondistended. MUSCULOSKELETAL: No cyanosis, or edema. BACK: Nontender without obvious deformity. No CVA tenderness. NEURO: Drowsy but arousable to name call. Follows simple commands. Moves extremities weakly. 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 Paramedics arrived and she was ventilated with bag mask. She was endotracheal intubated in the emergency department where a head CT showed a large left hemispheric intraparenchymal hemorrhage with subarachnoid blood. Subsequent CTA revealed a left middle cerebral aneurysm. -Acute subarachnoid hemorrhage (left middle cerebral artery aneurysm)-- s/p endovascular coiling of MCA ruptured cerebral aneurysm 04/11 -Large left frontal hemorrhage with Intracranial hypertension with devastating neurologic injury- Patient with significant dominant hemisphere frontal temporal lobe hemorrhage and consequent cerebral injury and has had no meaningful neurologic recovery. s/p Dr. Meléndez performed left decompressive craniotomy 04/25 with evacuation of temporal hematoma. ROOFING SUPERVISOR shunt placed 05/07. S/p bone flap on 05/22. The patient has had some improvement and does follow most commands. Improving with PT. -Malignant Hypertension (Hypertensive emergency) on admission -- s/p 3 weeks of Nimotop therapy for vasospasm prevention. in SAH patient. now targeting SBP < 160. Continue Norvasc 10 q day, HCTZ 25 mg daily , labetalol 300 mg PO TID, hydralazine 75 mg q8. Hold parameters. Blood pressure stable. No change in management. 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 Not a candidate for surgical intervention due to recent devastating neuro injury -Acute respiratory failure (now chronic resp failure) secondary to SAH / ICH. s/ p tracheostomy 04/29. Continue DuoNeb q 4 hours as needed. Suction PRN. -Macroglossia. Tongue edema again secondary to lower teeth biting with remaining upper teeth. S/P extraction of teeth to help reduce tongue edema by Dr Booth. Without ecchymotic area. Per OMFS, wound care and monitor. Improving. Able to retract tongue inside her mouth with help of her finger. -Chronic mild Transaminitis. CT of the abdomen shows normal liver. Repeat LFTs stable and negative hepatitis profile -Mild protein calorie malnutrition - s/p PEG 04/28. - Patient tolerating bolus feedings. -Anemia of chronic inflammation / disease. Hgb stable with no signs of active bleeding -Sepsis secondary to pneumonia and prior UTI - resolved, now off all abx. Resolved. -Agitation-secondary to brain injury. Continue restraints as needed, still requiring restraints intermittently. Continue low-dose Xanax as needed. On Seroquel . Caution with multiple sedating medications, hold parameters placed on Xanax and Lortab. Increase activities being OOB to chair and ambulation can possibly decrease pt. agitation and restlessness. -GI Prophylaxis: Pepcid -DVT Prophylaxis - SCDs; Lovenox 40 q day -Rehab: PT / OT. Will eventually need LTACH / SNF. Ambulating in the hallway as per physical therapy. Have been increasing in her activities and tolerating it. 09/11/15: Patient doing well, no acute events, no changes in management. Continue with strengthening exercises with PT/OT. - Tolerating bolus feeds. Continue with OOB activities and sitting outside her room to decrease restlessness. Monitor for increase risk for falls. 09/12/15: Patient status post fall last night. Right eyebrow abrasion. CT of the head showed no significant interval change. Status post ventriculostomy and aneurysm clipping. - Monitor for falls. Encouraged activities out of bed to avoid restlessness. - Case management working on patient for DC home as per family request. Discharge Planning Possible discharge to home with family members, possibly next week. Dutch Momin DO Sep 13, 2016 14:40
[2016-09-14] VITALS (7 sets, daily range): BP systolic 98–130; BP diastolic 66–84; PULSE 70–85; RESP 16–20; TEMP 95.9–99; O2SAT 95–99
[2016-09-14] MEDS: hydrALAZINE HCL 25 MG TAB TUBE SCH ×3 (07:32→22:00)
[2016-09-14] MEDS: LABETALOL HCL 300 MG TAB TUBE SCH ×2 (07:32→13:22)
[2016-09-14] MEDS: SODIUM CHLORIDE 0.9% FLUSH 5 ML FLUSH IVF SCH ×2 (09:00→21:00)
[2016-09-14] MEDS: CHLORHEXIDINE GLUCONATE 0.12% 30 ML CUP OTHER SCH ×2 (10:05→21:00)
[2016-09-14] MEDS: ENOXAPARIN SODIUM 40 MG/0.4 ML SYRINGE SQ SCH (10:09)
[2016-09-14] MEDS: QUEtiapine FUMARATE 25 MG TAB TUBE SCH (10:09)
[2016-09-14] MEDS: FAMOTIDINE 20 MG TAB TUBE SCH (10:09)
--- NOTE | 2016-09-14 14:11 | HHI.PR ---
Subjective Remarks Follow up for ICH, restlessness, s/p trach/ peg, angioedema Patient has no specific complaints. resting in bed. Objective Vitals Vital Signs Date Time Temp Pulse Resp B/P Pulse Ox O2 Delivery O2 Flow Rate FiO2 09/14/16 12:00 97.8 78 16 117/84 98 09/14/16 09:10 99 21 09/14/16 08:30 Simple Mask 28 09/14/16 08:08 95.9 77 18 102/66 98 09/14/16 04:00 97.0 70 18 130/78 95 09/14/16 01:00 97.0 74 18 130/84 97 09/13/16 21:00 97.6 73 18 124/85 98 09/13/16 20:00 98 Simple Mask 28 09/13/16 19:40 93 Trach Collar 09/13/16 16:00 98.5 94 18 117/80 99 I/O 09/13/16 09/13/16 09/13/16 09/14/16 09/14/16 09/14/16 07:00 15:00 23:00 07:00 15:00 23:00 Intake Total 320 ml 320 ml 320 ml Output Total 4 ml Balance 320 ml 320 ml -4 ml 320 ml Tube Feeding 320 ml 320 ml 320 ml Output Urine Total 4 ml # Voids 3 3 # Bowel Movements 0 0 1 Objective Remarks GENERAL: Patient is awake, follows most commands HEAD: Normocephalic. Tongue edema present and protruded. CARDIOVASCULAR: Regular rate. 2/6 HEMALATHA murmur best heard left upper sternal border RESPIRATORY: Breath sounds equal bilaterally. No accessory muscle use. GASTROINTESTINAL: Abdomen soft, non-tender, nondistended. MUSCULOSKELETAL: No cyanosis, or edema. NEURO: Awake. Follow commands. 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 Paramedics arrived and she was ventilated with bag mask. She was endotracheal intubated in the emergency department where a head CT showed a large left hemispheric intraparenchymal hemorrhage with subarachnoid blood. Subsequent CTA revealed a left middle cerebral aneurysm. -Acute subarachnoid hemorrhage (left middle cerebral artery aneurysm)-- s/p endovascular coiling of MCA ruptured cerebral aneurysm 04/11 -Large left frontal hemorrhage with Intracranial hypertension with devastating neurologic injury- Patient with significant dominant hemisphere frontal temporal lobe hemorrhage and consequent cerebral injury and has had no meaningful neurologic recovery. s/p Dr. Meléndez performed left decompressive craniotomy 04/25 with evacuation of temporal hematoma. TRUCK GREASER shunt placed 05/07. S/p bone flap on 05/22. The patient has had some improvement and does follow most commands. Improving with PT. -Malignant Hypertension (Hypertensive emergency) on admission -- s/p 3 weeks of Nimotop therapy for vasospasm prevention. in SAH patient. now targeting SBP < 160. Continue Norvasc 10 q day, HCTZ 25 mg daily , labetalol 300 mg PO TID, hydralazine 75 mg q8. Hold parameters. Blood pressure stable. No change in management. 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 Not a candidate for surgical intervention due to recent devastating neuro injury -Acute respiratory failure (now chronic resp failure) secondary to SAH / ICH: Stable. s/p tracheostomy 04/29. Continue DuoNeb q 4 hours as needed. Suction PRN. -Macroglossia. Tongue edema again secondary to lower teeth biting with remaining upper teeth. S/P extraction of teeth to help reduce tongue edema by Dr Booth. Without ecchymotic area. Per OMFS, wound care and monitor. Improving. Able to retract tongue inside her mouth with help of her finger. -Chronic mild Transaminitis. CT of the abdomen shows normal liver. Repeat LFTs stable and negative hepatitis profile -Mild protein calorie malnutrition - s/p PEG 04/28. - Patient tolerating bolus feedings. -Anemia of chronic inflammation / disease. Hgb stable with no signs of active bleeding -Sepsis secondary to pneumonia and prior UTI - resolved, now off all abx. Resolved. -Agitation-secondary to brain injury. Continue restraints as needed, still requiring restraints intermittently. Continue low-dose Xanax as needed. On Seroquel . Caution with multiple sedating medications, hold parameters placed on Xanax and Lortab. Increase activities being OOB to chair and ambulation can possibly decrease pt. agitation and restlessness. -GI Prophylaxis: Pepcid -DVT Prophylaxis - SCDs; Lovenox 40 q day -Rehab: PT / OT. Will eventually need LTACH / SNF. Ambulating in the hallway as per physical therapy. Have been increasing in her activities and tolerating it. Discharge Planning Possible discharge to home with family members, possibly next week. Louise Jones MD Sep 14, 2016 14:10
[2016-09-15] VITALS (8 sets, daily range): BP systolic 109–118; BP diastolic 71–78; PULSE 74–91; RESP 16–20; TEMP 97.1–98.9; O2SAT 95–99
[2016-09-15] MEDS: CHLORHEXIDINE GLUCONATE 0.12% 30 ML CUP OTHER SCH ×3 (00:48→23:21)
[2016-09-15] MEDS: LABETALOL HCL 300 MG TAB TUBE SCH ×4 (00:49→23:11)
[2016-09-15] MEDS: FAMOTIDINE 20 MG TAB TUBE SCH ×3 (00:49→23:06)
[2016-09-15] MEDS: QUEtiapine FUMARATE 25 MG TAB TUBE SCH ×3 (00:50→23:06)
[2016-09-15] MEDS: hydrALAZINE HCL 25 MG TAB TUBE SCH ×3 (05:41→22:00)
[2016-09-15] MEDS: SODIUM CHLORIDE 0.9% FLUSH 5 ML FLUSH IVF SCH ×2 (09:00→21:00)
[2016-09-15] MEDS: ENOXAPARIN SODIUM 40 MG/0.4 ML SYRINGE SQ SCH (09:26)
--- NOTE | 2016-09-15 14:28 | HHI.PR ---
Subjective Remarks Follow up for ICH, restlessness, s/p trach/ peg, angioedema DW RN.Patient pulled out trach a couple of times. She is seen in the chair in the [facility]. No complaints. Objective Vitals Vital Signs Date Time Temp Pulse Resp B/P Pulse Ox O2 Delivery O2 Flow Rate FiO2 09/15/16 12:00 97.1 91 18 109/73 97 09/15/16 09:42 98 Trach Collar 6.00 21 09/15/16 08:00 97.1 77 16 116/74 97 09/15/16 04:00 98.5 81 20 117/71 98 09/15/16 00:00 98.9 85 20 118/72 95 09/14/16 20:00 99.0 85 20 113/69 95 09/14/16 20:00 Simple Mask 28 09/14/16 16:00 98.9 74 16 98/74 98 I/O 09/14/16 09/14/16 09/14/16 09/15/16 09/15/16 09/15/16 07:00 15:00 23:00 07:00 15:00 23:00 Intake Total 320 ml 320 ml Output Total 4 ml Balance -4 ml 320 ml 320 ml Tube Feeding 320 ml 320 ml Output Urine Total 4 ml # Voids 4 2 # Bowel Movements 1 0 1 Objective Remarks GENERAL: Patient is awake, follows most commands HEAD: Normocephalic. Tongue edema present and protruded. CARDIOVASCULAR: Regular rate. 2/6 HEMALATHA murmur best heard left upper sternal border RESPIRATORY: Breath sounds equal bilaterally. No accessory muscle use. GASTROINTESTINAL: Abdomen soft, non-tender, nondistended. MUSCULOSKELETAL: No cyanosis, or edema. NEURO: Awake. Follow commands. 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 Paramedics arrived and she was ventilated with bag mask. She was endotracheal intubated in the emergency department where a head CT showed a large left hemispheric intraparenchymal hemorrhage with subarachnoid blood. Subsequent CTA revealed a left middle cerebral aneurysm. -Acute subarachnoid hemorrhage (left middle cerebral artery aneurysm)-- s/p endovascular coiling of MCA ruptured cerebral aneurysm 04/11 -Large left frontal hemorrhage with Intracranial hypertension with devastating neurologic injury- Patient with significant dominant hemisphere frontal temporal lobe hemorrhage and consequent cerebral injury and has had no meaningful neurologic recovery. s/p Dr. Meléndez performed left decompressive craniotomy 04/25 with evacuation of temporal hematoma. HELP DESK INTERN shunt placed 05/07. S/p bone flap on 05/22. The patient has had some improvement and does follow most commands. Improving with PT. -Malignant Hypertension (Hypertensive emergency) on admission -- s/p 3 weeks of Nimotop therapy for vasospasm prevention. in SAH patient. now targeting SBP < 160. Continue Norvasc 10 q day, HCTZ 25 mg daily , labetalol 300 mg PO TID, hydralazine 75 mg q8. Hold parameters. Blood pressure stable. No change in management. 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 Not a candidate for surgical intervention due to recent devastating neuro injury -Acute respiratory failure (now chronic resp failure) secondary to SAH / ICH: Stable. s/p tracheostomy 04/29. - Consult Pulmonology for trach management -Macroglossia. Tongue edema again secondary to lower teeth biting with remaining upper teeth. S/P extraction of teeth to help reduce tongue edema by Dr Booth. Without ecchymotic area. Per OMFS, wound care and monitor. Stable. Able to retract tongue inside her mouth with help of her finger. -Chronic mild Transaminitis. CT of the abdomen shows normal liver. Repeat LFTs stable and negative hepatitis profile -Mild protein calorie malnutrition - s/p PEG 04/28. - Patient tolerating bolus feedings. -Anemia of chronic inflammation / disease. Hgb stable with no signs of active bleeding -Sepsis secondary to pneumonia and prior UTI - resolved, now off all abx. Resolved. -Agitation-secondary to brain injury. Continue restraints as needed, still requiring restraints intermittently. Continue low-dose Xanax as needed. On Seroquel . Caution with multiple sedating medications, hold parameters placed on Xanax and Lortab. Increase activities being OOB to chair and ambulation can possibly decrease pt. agitation and restlessness. -GI Prophylaxis: Pepcid -DVT Prophylaxis - SCDs; Lovenox 40 q day -Rehab: PT / OT. Will eventually need LTACH / SNF. Ambulating in the hallway as per physical therapy. Have been increasing in her activities and tolerating it. Discharge Planning Possible discharge to home with family members soon Louise Jones MD Sep 15, 2016 14:28
[2016-09-15] MEDS: ALPRAZolam 0.25 MG TAB PO PRN (23:06)
[2016-09-16] VITALS: BP 120/78; PULSE 81; RESP 20; TEMP 97.3; O2SAT 95
[2016-09-16] MEDS: ACETAMINOPHEN/HYDROcodone 325 MG/5 MG TAB TUBE PRN (02:32)
[2016-09-16] MEDS: hydrALAZINE HCL 25 MG TAB TUBE SCH ×3 (05:59→21:29)
[2016-09-16] MEDS: LABETALOL HCL 300 MG TAB TUBE SCH ×3 (05:59→21:28)
[2016-09-16 08:00] VITALS: BP 112/61; PULSE 65; RESP 18; TEMP 97.2; O2SAT 96
[2016-09-16] MEDS: QUEtiapine FUMARATE 25 MG TAB TUBE SCH ×2 (09:08→21:29)
[2016-09-16] MEDS: CHLORHEXIDINE GLUCONATE 0.12% 30 ML CUP OTHER SCH ×2 (09:08→21:28)
[2016-09-16] MEDS: FAMOTIDINE 20 MG TAB TUBE SCH ×2 (09:08→21:28)
[2016-09-16] MEDS: SODIUM CHLORIDE 0.9% FLUSH 5 ML FLUSH IVF SCH ×2 (09:09→21:00)
[2016-09-16] MEDS: ENOXAPARIN SODIUM 40 MG/0.4 ML SYRINGE SQ SCH (09:09)
[2016-09-16 10:04] VITALS: O2SAT 99
[2016-09-16 13:00] VITALS: BP 119/64; PULSE 61; RESP 16; TEMP 97.6; O2SAT 98
--- NOTE | 2016-09-16 14:04 | HHI.PR ---
Subjective Remarks Follow up for ICH, restlessness, s/p trach/ peg, angioedema Patient has no complaints. Resting in bed. Has been evaluated by Pulmonology. Plastic surgery consulted for protruding tongue. Objective Vitals Vital Signs Date Time Temp Pulse Resp B/P Pulse Ox O2 Delivery O2 Flow Rate FiO2 09/16/16 10:04 99 21 09/16/16 08:00 97.2 65 18 112/61 96 09/16/16 03:32 16 09/16/16 00:00 97.3 81 20 120/78 95 09/15/16 21:22 97.8 84 20 117/76 99 09/15/16 18:30 99 21 09/15/16 16:00 98.1 74 16 118/78 99 I/O 09/15/16 09/15/16 09/15/16 09/16/16 09/16/16 09/16/16 07:00 15:00 23:00 07:00 15:00 23:00 # Voids 2 1 1 # Bowel Movements 1 1 1 Objective Remarks GENERAL: Patient is awake, follows most commands HEAD: Normocephalic. Tongue edema present and protruded. CARDIOVASCULAR: Regular rate. 2/6 HEMALATHA murmur best heard left upper sternal border RESPIRATORY: Breath sounds equal bilaterally. No accessory muscle use. GASTROINTESTINAL: Abdomen soft, non-tender, nondistended. MUSCULOSKELETAL: No cyanosis, or edema. NEURO: Awake. Follow commands. 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 Paramedics arrived and she was ventilated with bag mask. She was endotracheal intubated in the emergency department where a head CT showed a large left hemispheric intraparenchymal hemorrhage with subarachnoid blood. Subsequent CTA revealed a left middle cerebral aneurysm. -Acute subarachnoid hemorrhage (left middle cerebral artery aneurysm)-- s/p endovascular coiling of MCA ruptured cerebral aneurysm 04/11 -Large left frontal hemorrhage with Intracranial hypertension with devastating neurologic injury- Patient with significant dominant hemisphere frontal temporal lobe hemorrhage and consequent cerebral injury and has had no meaningful neurologic recovery. s/p Dr. Meléndez performed left decompressive craniotomy 04/25 with evacuation of temporal hematoma. SEAM PRESSER shunt placed 05/07. S/p bone flap on 05/22. The patient has had some improvement and does follow most commands. Improving with PT. -Malignant Hypertension (Hypertensive emergency) on admission -- s/p 3 weeks of Nimotop therapy for vasospasm prevention. in SAH patient. now targeting SBP < 160. Continue Norvasc 10 q day, HCTZ 25 mg daily , labetalol 300 mg PO TID, hydralazine 75 mg q8. Hold parameters. Blood pressure stable. No change in management. 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 Not a candidate for surgical intervention due to recent devastating neuro injury -Acute respiratory failure (now chronic resp failure) secondary to SAH / ICH: Stable. s/p tracheostomy 04/29. - Consult Pulmonology for trach management -Macroglossia. Tongue edema again secondary to lower teeth biting with remaining upper teeth. S/P extraction of teeth to help reduce tongue edema by Dr Booth. Without ecchymotic area. Per OMFS, wound care and monitor. Stable. Able to retract tongue inside her mouth with help of her finger. Plastic surgery has been consulted. -Chronic mild Transaminitis. CT of the abdomen shows normal liver. Repeat LFTs stable and negative hepatitis profile -Mild protein calorie malnutrition - s/p PEG 04/28. - Patient tolerating bolus feedings. -Anemia of chronic inflammation / disease. Hgb stable with no signs of active bleeding -Sepsis secondary to pneumonia and prior UTI - resolved, now off all abx. Resolved. -Agitation-secondary to brain injury. Continue restraints as needed, still requiring restraints intermittently. Continue low-dose Xanax as needed. On Seroquel . Caution with multiple sedating medications, hold parameters placed on Xanax and Lortab. Increase activities being OOB to chair and ambulation can possibly decrease pt. agitation and restlessness. -GI Prophylaxis: Pepcid -DVT Prophylaxis - SCDs; Lovenox 40 q day -Rehab: PT / OT. Ambulating in the hallway as per physical therapy. Have been increasing in her activities and tolerating it. Discharge Planning Possible discharge to home with family members soon Louise Jones MD Sep 16, 2016 14:04
--- NOTE | 2016-09-16 14:25 | HHI.FF ---
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 My clinical findings support the need for the requested home health care services because: Deconditioned w/ increased weakness Limited ability to care for self Impaired cognition/judgement I certify that my clinical findings support that this patient is homebound because: Impaired cognitive ability/safety Louise Jones MD Sep 16, 2016 14:25
[2016-09-16 16:00] VITALS: BP 125/76; PULSE 75; RESP 19; TEMP 96.6; O2SAT 97
[2016-09-16 20:50] VITALS: BP 108/73; PULSE 85; RESP 18; TEMP 98.4; O2SAT 100
[2016-09-16] MEDS: ALPRAZolam 0.25 MG TAB PO PRN (21:28)
[2016-09-17] VITALS (8 sets, daily range): BP systolic 100–126; BP diastolic 59–84; PULSE 63–88; RESP 16–20; TEMP 97.1–97.6; O2SAT 95–100
[2016-09-17] MEDS: hydrALAZINE HCL 25 MG TAB TUBE SCH ×3 (05:25→22:00)
[2016-09-17] MEDS: LABETALOL HCL 300 MG TAB TUBE SCH ×3 (05:25→22:00)
[2016-09-17] MEDS: CHLORHEXIDINE GLUCONATE 0.12% 30 ML CUP OTHER SCH ×2 (10:19→23:51)
[2016-09-17] MEDS: ENOXAPARIN SODIUM 40 MG/0.4 ML SYRINGE SQ SCH (10:19)
[2016-09-17] MEDS: QUEtiapine FUMARATE 25 MG TAB TUBE SCH ×2 (10:19→23:50)
[2016-09-17] MEDS: FAMOTIDINE 20 MG TAB TUBE SCH ×2 (10:20→23:50)
[2016-09-17] MEDS: SODIUM CHLORIDE 0.9% FLUSH 5 ML FLUSH IVF SCH ×2 (10:20→21:00)
[2016-09-17] MEDS: ALPRAZolam 0.25 MG TAB PO PRN ×2 (10:20→23:50)
--- NOTE | 2016-09-17 11:40 | HHI.PR ---
Subjective Remarks Follow up for ICH, restlessness, s/p trach/ peg, angioedema No new issues. Patient is resting in bed. She has no complaints. Objective Vitals Vital Signs Date Time Temp Pulse Resp B/P Pulse Ox O2 Delivery O2 Flow Rate FiO2 09/17/16 08:00 97.5 88 16 105/72 97 09/17/16 04:00 97.1 75 20 126/84 98 09/17/16 00:27 97.2 83 19 120/78 100 09/16/16 20:50 98.4 85 18 108/73 100 09/16/16 20:00 Room Air Trach Collar 09/16/16 16:00 96.6 75 19 125/76 97 09/16/16 13:00 97.6 61 16 119/64 98 I/O 09/16/16 09/16/16 09/16/16 09/17/16 09/17/16 09/17/16 07:00 15:00 23:00 07:00 15:00 23:00 Intake Total 560 ml 520 ml 560 ml Balance 560 ml 520 ml 560 ml Tube Feeding 360 ml 320 ml 360 ml Tube Irrigant 200 ml Other 200 ml 200 ml # Voids 1 3 1 1 # Bowel Movements 1 0 1 Objective Remarks GENERAL: Patient is awake, follows most commands HEAD: Normocephalic. Tongue edema present and protruded. CARDIOVASCULAR: Regular rate. 2/6 HEMALATHA murmur best heard left upper sternal border RESPIRATORY: Breath sounds equal bilaterally. No accessory muscle use. GASTROINTESTINAL: Abdomen soft, non-tender, nondistended. MUSCULOSKELETAL: No cyanosis, or edema. NEURO: Awake. Follow commands. 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 Paramedics arrived and she was ventilated with bag mask. She was endotracheal intubated in the emergency department where a head CT showed a large left hemispheric intraparenchymal hemorrhage with subarachnoid blood. Subsequent CTA revealed a left middle cerebral aneurysm. -Acute subarachnoid hemorrhage (left middle cerebral artery aneurysm)-- s/p endovascular coiling of MCA ruptured cerebral aneurysm 04/11 -Large left frontal hemorrhage with Intracranial hypertension with devastating neurologic injury- Patient with significant dominant hemisphere frontal temporal lobe hemorrhage and consequent cerebral injury and has had no meaningful neurologic recovery. s/p Dr. Meléndez performed left decompressive craniotomy 04/25 with evacuation of temporal hematoma. BILLING COLLECTIONS SPECIALIST shunt placed 05/07. S/p bone flap on 05/22. The patient has had some improvement and does follow most commands. Improving with PT. -Malignant Hypertension (Hypertensive emergency) on admission -- s/p 3 weeks of Nimotop therapy for vasospasm prevention. in SAH patient. now targeting SBP < 160. Continue Norvasc 10 q day, HCTZ 25 mg daily , labetalol 300 mg PO TID, hydralazine 75 mg q8. Hold parameters. Blood pressure stable. No change in management. 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 Not a candidate for surgical intervention due to recent devastating neuro injury -Acute respiratory failure (now chronic resp failure) secondary to SAH / ICH: Stable. s/p tracheostomy 04/29. -Pulmonology following for trach management. -Macroglossia. Tongue edema again secondary to lower teeth biting with remaining upper teeth. S/P extraction of teeth to help reduce tongue edema by Dr Booth. Without ecchymotic area. Able to retract tongue inside her mouth with help of her finger. Plastic surgery consulted who advised outpatient follow-up with OMFS. -Chronic mild Transaminitis. CT of the abdomen shows normal liver. Repeat LFTs stable and negative hepatitis profile -Mild protein calorie malnutrition - s/p PEG 04/28. - Patient tolerating bolus feedings. -Anemia of chronic inflammation / disease. Hgb stable with no signs of active bleeding -Sepsis secondary to pneumonia and prior UTI - resolved, now off all abx. Resolved. -Agitation-secondary to brain injury. Continue restraints as needed, still requiring restraints intermittently. Continue low-dose Xanax as needed. On Seroquel . Caution with multiple sedating medications, hold parameters placed on Xanax and Lortab. Increase activities being OOB to chair and ambulation can possibly decrease pt. agitation and restlessness. -GI Prophylaxis: Pepcid -DVT Prophylaxis - SCDs; Lovenox 40 q day -Rehab: PT / OT. Ambulating in the hallway as per physical therapy. Have been increasing in her activities and tolerating it. Discharge Planning Patient's family wants to take her home. Case management following. Assisting with medical equipments. Still waiting for insurance company. Louise Jones MD Sep 17, 2016 11:39
[2016-09-17] MEDS: ACETAMINOPHEN/HYDROcodone 325 MG/5 MG TAB TUBE PRN (15:16)
[2016-09-18] VITALS (8 sets, daily range): BP systolic 113–125; BP diastolic 66–87; PULSE 65–88; RESP 16–20; TEMP 96–97.9; O2SAT 96–100
[2016-09-18] MEDS: hydrALAZINE HCL 25 MG TAB TUBE SCH ×3 (05:45→21:49)
[2016-09-18] MEDS: LABETALOL HCL 300 MG TAB TUBE SCH ×3 (05:53→21:48)
[2016-09-18] MEDS: FAMOTIDINE 20 MG TAB TUBE SCH ×2 (09:00→21:48)
[2016-09-18] MEDS: CHLORHEXIDINE GLUCONATE 0.12% 30 ML CUP OTHER SCH ×2 (09:00→22:00)
[2016-09-18] MEDS: SODIUM CHLORIDE 0.9% FLUSH 5 ML FLUSH IVF SCH ×2 (09:00→21:00)
[2016-09-18] MEDS: ENOXAPARIN SODIUM 40 MG/0.4 ML SYRINGE SQ SCH (09:00)
[2016-09-18] MEDS: QUEtiapine FUMARATE 25 MG TAB TUBE SCH ×2 (09:00→21:48)
--- NOTE | 2016-09-18 14:53 | HHI.PR ---
Subjective Remarks Resting chair comfortably open eyes nonverbal, no acute issue awaiting discharge arrangement Objective Vitals Vital Signs Date Time Temp Pulse Resp B/P Pulse Ox O2 Delivery O2 Flow Rate FiO2 09/18/16 12:20 97.0 84 20 119/87 98 09/18/16 09:10 96 21 09/18/16 08:41 96.4 80 20 125/73 100 09/18/16 04:00 97.0 67 16 121/80 96 09/18/16 01:10 97.9 65 16 113/66 98 09/17/16 20:24 97.5 63 16 100/59 100 09/17/16 18:10 99 T-piece 6.00 21 09/17/16 16:00 97.2 70 16 118/81 99 I/O 09/17/16 09/17/16 09/17/16 09/18/16 09/18/16 09/18/16 07:00 15:00 23:00 07:00 15:00 23:00 Intake Total 560 ml Balance 560 ml Tube Feeding 360 ml Other 200 ml # Voids 1 3 2 1 # Bowel Movements 1 0 0 Objective Remarks GENERAL: 46 years old female. . Tongue protruded. doesn't appear in acute distress, however appears chronically ill patient. SKIN: Warm and dry. No lesions noted. HEENT: Normocephalic. Pupils equal and round. Swollen and protruding tongue CARDIOVASCULAR: Regular rate and rhythm. 3/6 systolic murmur appreciated. RESPIRATORY: No accessory muscle use. Clear to auscultation. Breath sounds equal bilaterally. GASTROINTESTINAL: Abdomen soft, non-tender, nondistended. Bowel sounds x4. PEG in place. MUSCULOSKELETAL: No obvious deformities. No clubbing or cyanosis. No edema. NEUROLOGICAL: Awake and alert. 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 Paramedics arrived and she was ventilated with bag mask. She was endotracheal intubated in the emergency department where a head CT showed a large left hemispheric intraparenchymal hemorrhage with subarachnoid blood. Subsequent CTA revealed a left middle cerebral aneurysm. -Acute subarachnoid hemorrhage (left middle cerebral artery aneurysm)-- s/p endovascular coiling of MCA ruptured cerebral aneurysm 04/11 -Large left frontal hemorrhage with Intracranial hypertension with devastating neurologic injury- Patient with significant dominant hemisphere frontal temporal lobe hemorrhage and consequent cerebral injury and has had no meaningful neurologic recovery. s/p Dr. Meléndez performed left decompressive craniotomy 04/25 with evacuation of temporal hematoma. ART OBJECTS REPAIRER shunt placed 05/07. S/p bone flap on 05/22. The patient has had some improvement and does follow most commands. Improving with PT. -Malignant Hypertension (Hypertensive emergency) on admission -- s/p 3 weeks of Nimotop therapy for vasospasm prevention. in SAH patient. now targeting SBP < 160. Continue Norvasc 10 q day, HCTZ 25 mg daily , labetalol 300 mg PO TID, hydralazine 75 mg q8. Hold parameters. Blood pressure stable. No change in management. 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 Not a candidate for surgical intervention due to recent devastating neuro injury -Acute respiratory failure (now chronic resp failure) secondary to SAH / ICH: Stable. s/p tracheostomy 04/29. -Pulmonology following for trach management. -Macroglossia. Tongue edema again secondary to lower teeth biting with remaining upper teeth. S/P extraction of teeth to help reduce tongue edema by Dr Booth. Without ecchymotic area. Able to retract tongue inside her mouth with help of her finger. Plastic surgery consulted who advised outpatient follow-up with OMFS. -Chronic mild Transaminitis. CT of the abdomen shows normal liver. Repeat LFTs stable and negative hepatitis profile -Mild protein calorie malnutrition - s/p PEG 04/28. - Patient tolerating bolus feedings. -Anemia of chronic inflammation / disease. Hgb stable with no signs of active bleeding -Sepsis secondary to pneumonia and prior UTI - resolved, now off all abx. Resolved. -Agitation-secondary to brain injury. Continue restraints as needed, still requiring restraints intermittently. Continue low-dose Xanax as needed. On Seroquel . Caution with multiple sedating medications, hold parameters placed on Xanax and Lortab. Increase activities being OOB to chair and ambulation can possibly decrease pt. agitation and restlessness. -GI Prophylaxis: Pepcid -DVT Prophylaxis - SCDs; Lovenox 40 q day -Rehab: PT / OT. Ambulating in the hallway as per physical therapy. Have been increasing in her activities and tolerating it. Discharge Planning Patient's family wants to take her home. Case management following. Assisting with medical equipments. Still waiting for insurance company. Discharge Planning Difficulty placement, immigration case manager following Zeinab Ren MD Sep 18, 2016 14:53
[2016-09-19] VITALS (8 sets, daily range): BP systolic 99–141; BP diastolic 69–95; PULSE 73–92; RESP 18–20; TEMP 96.1–97.3; O2SAT 97–100
[2016-09-19] MEDS: LABETALOL HCL 300 MG TAB TUBE SCH ×2 (06:00→22:27)
[2016-09-19] MEDS: hydrALAZINE HCL 25 MG TAB TUBE SCH ×2 (06:00→22:28)
[2016-09-19] MEDS: SODIUM CHLORIDE 0.9% FLUSH 5 ML FLUSH IVF SCH ×2 (09:00→21:00)
[2016-09-19] MEDS: FAMOTIDINE 20 MG TAB TUBE SCH ×2 (09:00→22:27)
[2016-09-19] MEDS: CHLORHEXIDINE GLUCONATE 0.12% 30 ML CUP OTHER SCH ×2 (09:00→22:25)
[2016-09-19] MEDS: QUEtiapine FUMARATE 25 MG TAB TUBE SCH ×2 (09:00→22:26)
[2016-09-19] MEDS: ENOXAPARIN SODIUM 40 MG/0.4 ML SYRINGE SQ SCH (09:00)
[2016-09-19] MEDS ORDERED: LABE300T TUBE (10:09)
[2016-09-19] MEDS ORDERED: IPRASOL INH (10:09)
[2016-09-19] MEDS ORDERED: ENOX40P SQ (10:09)
[2016-09-19] MEDS ORDERED: FAMO20TA2 TUBE (10:09)
[2016-09-19] MEDS ORDERED: HYDR-3516 TUBE (10:09)
[2016-09-19] MEDS ORDERED: ALPR.25 PO (10:09)
[2016-09-19] MEDS ORDERED: HYDR25TA35 TUBE (10:09)
[2016-09-19] MEDS ORDERED: AMLO10 TUBE (10:09)
[2016-09-19] MEDS ORDERED: QUET1TAB7 TUBE ×2 (10:09)
--- NOTE | 2016-09-19 10:10 | HHI.DS ---
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 Paramedics arrived and she was ventilated with bag mask. She was endotracheal intubated in the emergency department where a head CT showed a large left hemispheric intraparenchymal hemorrhage with subarachnoid blood. Subsequent CTA revealed a left middle cerebral aneurysm. The patient was admitted to the intensive care unit under Dr. Meléndez. She underwent a ventriculostomy and subsequently underwent coiling of the left middle cerebral aneurysm. CATH LAB MANAGER shunt placed 05/07. The patient had left decompressive craniotomy on April 25 with evacuation of temporal hematoma. The patient had PEG placement April 28. The patient underwent tracheostomy on April 29. The patient was also treated for sepsis secondary to pneumonia and UTI. She is now currently off all antibiotics. The patient also at some point suffered a tongue laceration and underwent repair of the tongue laceration and upper teeth extraction on May [address] Booth. From discussion with the nurse today, her heart rate has been running slightly lower so her labetalol was held. A bone flap replacement is being scheduled for next week per Dr. Meléndez. The patient has been on TPs since May 15. Per review of the chart she has had very poor neurologic recovery. Palliative care had been consulted several weeks ago. At this point the family desires aggressive care and the patient remains a full code. The patient also was found to have findings of hypertrophic obstructive cardiomyopathy on 2-D echocardiogram, but is not considered to be a candidate for septal ablation due to her devastating neurologic injury. I discussed the patient's care with Dr. Enamorado, outside cutter who had been caring for her. Review of systems not obtainable secondary to the patient's encephalopathy. PE at Discharge GENERAL: Patient is sleeping , open eyes to verbal stimuli HEAD: Normocephalic. Tongue edema present and protruded. CARDIOVASCULAR: Regular rate. 2/6 HEMALATHA murmur best heard left upper sternal border RESPIRATORY: Breath sounds equal bilaterally. No accessory muscle use. GASTROINTESTINAL: Abdomen soft, non-tender, nondistended. MUSCULOSKELETAL: No cyanosis, or edema. NEURO: awaken to voice , moves all exts. Follow commands. Hospital Course 46-year-old female with past medical history of hypertension who was found unresponsive at her home on April 11. Paramedics arrived and she was ventilated with bag mask. She was endotracheal intubated in the emergency department where a head CT showed a large left hemispheric intraparenchymal hemorrhage with subarachnoid blood. Subsequent CTA revealed a left middle cerebral aneurysm. -Acute subarachnoid hemorrhage (left middle cerebral artery aneurysm)-- s/p endovascular coiling of MCA ruptured cerebral aneurysm 04/11 -Large left frontal hemorrhage with Intracranial hypertension with devastating neurologic injury- Patient with significant dominant hemisphere frontal temporal lobe hemorrhage and consequent cerebral injury and has had no meaningful neurologic recovery. s/p Dr. Meléndez performed left decompressive craniotomy 04/25 with evacuation of temporal hematoma. CATH LAB MANAGER shunt placed 05/07. S/p bone flap on 05/22. The patient has had some improvement and does follow most commands. Improving with PT. -Malignant Hypertension (Hypertensive emergency) on admission -- s/p 3 weeks of Nimotop therapy for vasospasm prevention. in SAH patient. now targeting SBP < 160. Continue Norvasc 10 q day, HCTZ 25 mg daily , labetalol 300 mg PO TID, hydralazine 75 mg q8. Hold parameters. Blood pressure stable. No change in management. 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 Not a candidate for surgical intervention due to recent devastating neuro injury -Acute respiratory failure (now chronic resp failure) secondary to SAH / ICH: Stable. s/p tracheostomy 04/29. -Pulmonology following for trach management. -Macroglossia. Tongue edema again secondary to lower teeth biting with remaining upper teeth. S/P extraction of teeth to help reduce tongue edema by Dr Booth. Without ecchymotic area. Able to retract tongue inside her mouth with help of her finger. Plastic surgery consulted who advised outpatient follow-up with OMFS. -Chronic mild Transaminitis. CT of the abdomen shows normal liver. Repeat LFTs stable and negative hepatitis profile -Mild protein calorie malnutrition - s/p PEG 04/28. - Patient tolerating bolus feedings. -Anemia of chronic inflammation / disease. Hgb stable with no signs of active bleeding -Sepsis secondary to pneumonia and prior UTI - resolved, now off all abx. Resolved. -Agitation-secondary to brain injury. Continue restraints as needed, still requiring restraints intermittently. Continue low-dose Xanax as needed. On Seroquel . Caution with multiple sedating medications, hold parameters placed on Xanax and Lortab. Increase activities being OOB to chair and ambulation can possibly decrease pt. agitation and restlessness. -GI Prophylaxis: Pepcid -DVT Prophylaxis - SCDs; Lovenox 40 q day -Rehab: PT / OT. Ambulating in the hallway as per physical therapy. Have been increasing in her activities and tolerating it. Pt Condition on Discharge: Stable Discharge Disposition: Disch w/ Home Health Serv Discharge Time: > 30 minutes Discharge Instructions DIET: Follow Instructions for: On Tube Feeding Activities you can perform: See Additionl Instruction Other Activity Instructions: per PT recs New Medications: Hospital Bed - Manual (Hospital Bed - Manual) 1 Ea Ea 1 EA .ROUTE DIRECTED #1 EA Walker Rolling/GetGo (Walker Rolling/GetGo) 1 Mis Mis 1 EA .ROUTE DIRECTED weakness #1 Ref 0 EA Wheelchair (Wheelchair) 1 Mis Mis 1 EA .ROUTE DIRECTED #1 Ref 0 EA Alprazolam (Xanax) 0.25 Mg Tab 0.25 MG PO Q8H PRN anxiety #15 TAB Amlodipine (Norvasc) 10 Mg Tab 10 MG TUBE DAILY htn #30 TAB Enoxaparin Inj (Lovenox Inj) 40 Mg/0.4 Ml Syr 40 MG SQ Q24H dvt proph #15 INJECTION Famotidine (Famotidine) 20 Mg Tab 20 MG TUBE Q12HR gi #30 TAB Hydralazine (Hydralazine) 25 Mg Tab 75 MG TUBE Q8HR htn #30 TAB Hydrocodone-Acetaminophen (Hydrocodone-Acetaminophen) 5-325 mg Tab 1 TAB TUBE Q6H PRN PAIN SCALE 1 TO 5 #15 TAB Ipratropium-Albuterol Neb (Duoneb) 0.5-2.5 Mg/3 Ml Neb 1 AMPULE INH Q4HR NEB PRN WHEEZING #30 ML Labetalol (Labetalol) 300 Mg Tab 300 MG TUBE Q8HR htn #90 TAB Quetiapine (Quetiapine) 25 Mg Tab 50 MG TUBE HS Agitation #30 TAB Quetiapine (Quetiapine) 25 Mg Tab 25 MG TUBE DAILY Agitation #30 TAB Zeinab Ren MD Sep 19, 2016 10:10
--- NOTE | 2016-09-19 10:11 | HHI.PR ---
Subjective Remarks Patient stable doing okay Discussed with the nurse and the shoe caser, all the home equipment has been delivered patient ready to be discharged home Objective Vitals Vital Signs Date Time Temp Pulse Resp B/P Pulse Ox O2 Delivery O2 Flow Rate FiO2 09/19/16 08:26 97.1 75 20 141/78 100 09/19/16 07:55 98 21 09/19/16 04:00 97.3 75 18 99/69 98 09/19/16 00:00 97.1 73 18 125/78 98 09/18/16 20:00 97.3 76 18 122/76 99 09/18/16 19:03 96.0 88 20 123/84 99 09/18/16 17:46 98 21 09/18/16 12:20 97.0 84 20 119/87 98 I/O 09/18/16 09/18/16 09/18/16 09/19/16 09/19/16 09/19/16 07:00 15:00 23:00 07:00 15:00 23:00 # Voids 1 3 3 # Bowel Movements 0 1 Objective Remarks GENERAL: Patient is sleeping , open eyes to verbal stimuli HEAD: Normocephalic. Tongue edema present and protruded. CARDIOVASCULAR: Regular rate. 2/6 HEMALATHA murmur best heard left upper sternal border RESPIRATORY: Breath sounds equal bilaterally. No accessory muscle use. GASTROINTESTINAL: Abdomen soft, non-tender, nondistended. MUSCULOSKELETAL: No cyanosis, or edema. NEURO: awaken to voice , moves all exts. Follow commands. 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 Paramedics arrived and she was ventilated with bag mask. She was endotracheal intubated in the emergency department where a head CT showed a large left hemispheric intraparenchymal hemorrhage with subarachnoid blood. Subsequent CTA revealed a left middle cerebral aneurysm. -Acute subarachnoid hemorrhage (left middle cerebral artery aneurysm)-- s/p endovascular coiling of MCA ruptured cerebral aneurysm 04/11 -Large left frontal hemorrhage with Intracranial hypertension with devastating neurologic injury- Patient with significant dominant hemisphere frontal temporal lobe hemorrhage and consequent cerebral injury and has had no meaningful neurologic recovery. s/p Dr. Meléndez performed left decompressive craniotomy 04/25 with evacuation of temporal hematoma. PAWN SHOP KEEPER shunt placed 05/07. S/p bone flap on 05/22. The patient has had some improvement and does follow most commands. Improving with PT. -Malignant Hypertension (Hypertensive emergency) on admission -- s/p 3 weeks of Nimotop therapy for vasospasm prevention. in SAH patient. now targeting SBP < 160. Continue Norvasc 10 q day, HCTZ 25 mg daily , labetalol 300 mg PO TID, hydralazine 75 mg q8. Hold parameters. Blood pressure stable. No change in management. 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 Not a candidate for surgical intervention due to recent devastating neuro injury -Acute respiratory failure (now chronic resp failure) secondary to SAH / ICH: Stable. s/p tracheostomy 04/29. -Pulmonology following for trach management. -Macroglossia. Tongue edema again secondary to lower teeth biting with remaining upper teeth. S/P extraction of teeth to help reduce tongue edema by Dr Booth. Without ecchymotic area. Able to retract tongue inside her mouth with help of her finger. Plastic surgery consulted who advised outpatient follow-up with OMFS. -Chronic mild Transaminitis. CT of the abdomen shows normal liver. Repeat LFTs stable and negative hepatitis profile -Mild protein calorie malnutrition - s/p PEG 04/28. - Patient tolerating bolus feedings. -Anemia of chronic inflammation / disease. Hgb stable with no signs of active bleeding -Sepsis secondary to pneumonia and prior UTI - resolved, now off all abx. Resolved. -Agitation-secondary to brain injury. Continue restraints as needed, still requiring restraints intermittently. Continue low-dose Xanax as needed. On Seroquel . Caution with multiple sedating medications, hold parameters placed on Xanax and Lortab. Increase activities being OOB to chair and ambulation can possibly decrease pt. agitation and restlessness. -GI Prophylaxis: Pepcid -DVT Prophylaxis - SCDs; Lovenox 40 q day -Rehab: PT / OT. Ambulating in the hallway as per physical therapy. Have been increasing in her activities and tolerating it. Discharge Planning Patient's family wants to take her home. Case management following. Assisting with medical equipments. Still waiting for insurance company. Discharge Planning Difficulty placement, shoe caser following Zeinab Ren MD Sep 19, 2016 10:11
--- NOTE | 2016-09-19 22:06 | HHI.PR ---
Subjective Subjective Comments Patient easily awakes to voice. Does not appear to indicate any pain. Allergies: Coded Allergies: No Known Allergies (Verified , 04/11/16) Review of Systems All other ROS: Unable to obtain Exam I&O / VS 09/18/16 09/18/16 09/19/16 15:00 23:00 07:00 # Voids 3 # Bowel Movements 1 Vital Signs Date Time Temp Pulse Resp B/P Pulse Ox O2 Delivery O2 Flow Rate FiO2 09/19/16 20:12 97 21 09/19/16 17:13 96.1 92 20 119/95 98 09/19/16 12:44 97.0 80 20 117/74 97 09/19/16 08:26 97.1 75 20 141/78 100 09/19/16 07:55 98 21 09/19/16 04:00 97.3 75 18 99/69 98 09/19/16 00:00 97.1 73 18 125/78 98 General: No acute distress HEENT Tongue protruding Respiratory: Lungs CTA, Non-labored respirations, BS equal, Other (Trach with trach collar ) Gastrointestinal: Positive Bowel Sounds, Non-Distended, Non-Tender, Other (PEG in place with no drainage) Cardiovascular: Normal rate, Regular Rhythm Skin: Other (No rash noted) Musculoskeletal: Swelling (None in LE) Psychiatric: Cooperative Orientation: oriented to Self Neurologic: Speech (Answers simle yes/no appropriately), Other (Moves all extremities to command symmetrically) Assessment and Plan Diagnosis: (1) Cerebral aneurysm rupture Assessment 1.Left hemispheric intraparenchymal hemorrhage with subarachnoid hemorrhage S/P left frontotemporal parietal decompressive craniectomy with evacuation of temporal hematoma S/P left MICA LAYER aneurysm which was coiled now Rancho 4-5 2. S/P Trach and PEG 3. WASHHOUSE HAND shunt placement 05/07/16 4. Left decompressive craniotomy with bone flap removal 05/22/16. 5. Teeth extraction was performed 05/16/16 and 07/13/16 6. Severe LV hypertrophy Plan 1. Patient progressing with PT for mobility and now min-mod assist for transfers and ambulating 100 with wheeled walker. Continue to mobilize. 2. OT addressing ADL's and max assist with grooming and UE dressing 3. ST for swallow eval and NPO. Cognition and communication being address 4. Case management working on discharge planning with family and ongoing care with home health. 5. Will continue to follow while hospitalized and at discharge as appropriate Martha Wiley MD Sep 19, 2016 22:06
[2016-09-20] VITALS (7 sets, daily range): BP systolic 107–128; BP diastolic 60–87; PULSE 68–83; RESP 16–21; TEMP 97.2–98.9; O2SAT 92–100
[2016-09-20] MEDS: LABETALOL HCL 300 MG TAB TUBE SCH ×3 (06:00→22:20)
[2016-09-20] MEDS: hydrALAZINE HCL 25 MG TAB TUBE SCH ×3 (06:00→22:20)
[2016-09-20] MEDS: SODIUM CHLORIDE 0.9% FLUSH 5 ML FLUSH IVF SCH ×3 (09:00→21:00)
--- NOTE | 2016-09-20 10:20 | HHI.PR ---
Subjective Remarks Patient stable resting in bed in no acute issue She was supposed to be discharged yesterday, after discussion with the case monitor, however information that hospital but was not delivered yet, and today plan to downsize her trech, respiratory no able to do so, possibly consulting surgery for this Objective Vitals Vital Signs Date Time Temp Pulse Resp B/P Pulse Ox O2 Delivery O2 Flow Rate FiO2 09/20/16 08:00 97.8 76 16 124/79 100 09/20/16 04:00 97.7 68 18 119/77 100 09/20/16 00:00 97.2 80 18 107/68 96 09/19/16 20:12 97 21 09/19/16 20:00 97.0 79 18 124/89 97 09/19/16 17:13 96.1 92 20 119/95 98 09/19/16 12:44 97.0 80 20 117/74 97 I/O 09/19/16 09/19/16 09/19/16 09/20/16 09/20/16 09/20/16 07:00 15:00 23:00 07:00 15:00 23:00 # Voids 3 5 2 # Bowel Movements 1 Objective Remarks GENERAL: Patient is sleeping , open eyes to verbal stimuli . 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 ICD Code: I69.11 Status: Chronic (8) Chronic respiratory failure ICD Code: J96.10 Status: Chronic (9) Malignant hypertension ICD Code: I10 Status: Resolved Assessment and Plan 09/18/16: ct should continue current care 09/19/16, home equipment has been delivered, discussed with the case monitor, patient ready to go home with home health care 09/20/16: She was supposed to be discharged yesterday, after discussion with the case monitor, however information that hospital but was not delivered yet, and today plan to downsize her trech, respiratory no able to do so, possibly consulting surgery for this A/P: 46-year-old female with past medical history of hypertension who was found unresponsive at her home on April 11. Paramedics arrived and she was ventilated with bag mask. She was endotracheal intubated in the emergency department where a head CT showed a large left hemispheric intraparenchymal hemorrhage with subarachnoid blood. Subsequent CTA revealed a left middle cerebral aneurysm. -Acute subarachnoid hemorrhage (left middle cerebral artery aneurysm)-- s/p endovascular coiling of MCA ruptured cerebral aneurysm 04/11 -Large left frontal hemorrhage with Intracranial hypertension with devastating neurologic injury- Patient with significant dominant hemisphere frontal temporal lobe hemorrhage and consequent cerebral injury and has had no meaningful neurologic recovery. s/p Dr. Meléndez performed left decompressive craniotomy 04/25 with evacuation of temporal hematoma. EMBEDDED HARDWARE ENGINEER shunt placed 05/07. S/p bone flap on 05/22. The patient has had some improvement and does follow most commands. Improving with PT. -Malignant Hypertension (Hypertensive emergency) on admission -- s/p 3 weeks of Nimotop therapy for vasospasm prevention. in SAH patient. now targeting SBP < 160. Continue Norvasc 10 q day, HCTZ 25 mg daily , labetalol 300 mg PO TID, hydralazine 75 mg q8. Hold parameters. Blood pressure stable. No change in management. 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 Not a candidate for surgical intervention due to recent devastating neuro injury -Acute respiratory failure (now chronic resp failure) secondary to SAH / ICH: Stable. s/p tracheostomy 04/29. -Pulmonology following for trach management. -Macroglossia. Tongue edema again secondary to lower teeth biting with remaining upper teeth. S/P extraction of teeth to help reduce tongue edema by Dr Booth. Without ecchymotic area. Able to retract tongue inside her mouth with help of her finger. Plastic surgery consulted who advised outpatient follow-up with OMFS. -Chronic mild Transaminitis. CT of the abdomen shows normal liver. Repeat LFTs stable and negative hepatitis profile -Mild protein calorie malnutrition - s/p PEG 04/28. - Patient tolerating bolus feedings. -Anemia of chronic inflammation / disease. Hgb stable with no signs of active bleeding -Sepsis secondary to pneumonia and prior UTI - resolved, now off all abx. Resolved. -Agitation-secondary to brain injury. Continue restraints as needed, still requiring restraints intermittently. Continue low-dose Xanax as needed. On Seroquel . Caution with multiple sedating medications, hold parameters placed on Xanax and Lortab. Increase activities being OOB to chair and ambulation can possibly decrease pt. agitation and restlessness. -GI Prophylaxis: Pepcid -DVT Prophylaxis - SCDs; Lovenox 40 q day -Rehab: PT / OT. Ambulating in the hallway as per physical therapy. Have been increasing in her activities and tolerating it. Discharge Planning Patient's family wants to take her home. Case management following. Assisting with medical equipments. Still waiting for insurance company. Discharge Planning Difficulty placement, case monitor following Zeinab Ren MD Sep 20, 2016 10:20 with medical equipments. Still waiting for [employer] Discharge Planning Difficulty placement, case monitor following Zeinab Ren MD Sep 20, 2016 10:20
[2016-09-20] MEDS: FAMOTIDINE 20 MG TAB TUBE SCH ×2 (10:29→22:20)
[2016-09-20] MEDS: ENOXAPARIN SODIUM 40 MG/0.4 ML SYRINGE SQ SCH (10:29)
[2016-09-20] MEDS: QUEtiapine FUMARATE 25 MG TAB TUBE SCH ×2 (10:29→22:20)
[2016-09-20] MEDS: CHLORHEXIDINE GLUCONATE 0.12% 30 ML CUP OTHER SCH ×2 (10:30→22:20)
[2016-09-21] VITALS (8 sets, daily range): BP systolic 100–121; BP diastolic 59–74; PULSE 64–79; RESP 16–20; TEMP 96.8–98.2; O2SAT 96–100
[2016-09-21] MEDS: hydrALAZINE HCL 25 MG TAB TUBE SCH ×3 (06:06→22:00)
[2016-09-21] MEDS: LABETALOL HCL 300 MG TAB TUBE SCH ×3 (06:06→22:00)
[2016-09-21] MEDS: CHLORHEXIDINE GLUCONATE 0.12% 30 ML CUP OTHER SCH ×2 (08:03→22:55)
[2016-09-21] MEDS: ENOXAPARIN SODIUM 40 MG/0.4 ML SYRINGE SQ SCH (08:03)
[2016-09-21] MEDS: FAMOTIDINE 20 MG TAB TUBE SCH ×2 (08:04→22:55)
[2016-09-21] MEDS: SODIUM CHLORIDE 0.9% FLUSH 5 ML FLUSH IVF SCH ×2 (08:04→21:00)
[2016-09-21] MEDS: QUEtiapine FUMARATE 25 MG TAB TUBE SCH ×2 (08:04→22:54)
--- NOTE | 2016-09-21 11:22 | HHI.PR ---
Subjective Remarks sleeping in bed woke up to voice , denied complain plan for trech downsize surgically tomorrow Objective Vitals Vital Signs Date Time Temp Pulse Resp B/P Pulse Ox O2 Delivery O2 Flow Rate FiO2 09/21/16 09:25 96 Trach Collar 21 09/21/16 08:00 96.8 79 20 119/59 99 09/21/16 04:00 98.2 64 19 121/74 09/21/16 00:13 97.8 69 17 120/70 98 09/20/16 21:23 98.3 83 18 117/85 99 09/20/16 16:21 97.8 80 16 123/86 99 09/20/16 12:08 97.8 68 17 128/87 100 09/20/16 11:33 100 Trach Collar 21 I/O 09/20/16 09/20/16 09/20/16 09/21/16 09/21/16 09/21/16 07:00 15:00 23:00 07:00 15:00 23:00 Intake Total 420 ml 420 ml 820 ml Balance 420 ml 420 ml 820 ml Tube Feeding 360 ml 360 ml 640 ml Tube Irrigant 60 ml 60 ml Other 180 ml # Voids 2 3 2 # Bowel Movements 1 Objective Remarks GENERAL: Patient is sleeping , open eyes to verbal stimuli . 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 ICD Code: I69.11 Status: Chronic (8) Chronic respiratory failure ICD Code: J96.10 Status: Chronic (9) Malignant hypertension ICD Code: I10 Status: Resolved Assessment and Plan 09/18/16: ct should continue current care 09/19/16, home equipment has been delivered, discussed with the case liner, patient ready to go home with home health care 09/20/16: She was supposed to be discharged yesterday, after discussion with the case liner, however information that hospital but was not delivered yet, and today plan to downsize her trech, respiratory no able to do so, possibly consulting surgery for this : plan for trech downsize surgicaly tomorrow A/P: 46-year-old female with past medical history of hypertension who was found unresponsive at her home on April 11. Paramedics arrived and she was ventilated with bag mask. She was endotracheal intubated in the emergency department where a head CT showed a large left hemispheric intraparenchymal hemorrhage with subarachnoid blood. Subsequent CTA revealed a left middle cerebral aneurysm. -Acute subarachnoid hemorrhage (left middle cerebral artery aneurysm)-- s/p endovascular coiling of MCA ruptured cerebral aneurysm 04/11 -Large left frontal hemorrhage with Intracranial hypertension with devastating neurologic injury- Patient with significant dominant hemisphere frontal temporal lobe hemorrhage and consequent cerebral injury and has had no meaningful neurologic recovery. s/p Dr. Meléndez performed left decompressive craniotomy 04/25 with evacuation of temporal hematoma. SALES REVIEW CLERK shunt placed 05/07. S/p bone flap on 05/22. The patient has had some improvement and does follow most commands. Improving with PT. -Malignant Hypertension (Hypertensive emergency) on admission -- s/p 3 weeks of Nimotop therapy for vasospasm prevention. in SAH patient. now targeting SBP < 160. Continue Norvasc 10 q day, HCTZ 25 mg daily , labetalol 300 mg PO TID, hydralazine 75 mg q8. Hold parameters. Blood pressure stable. No change in management. 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 Not a candidate for surgical intervention due to recent devastating neuro injury -Acute respiratory failure (now chronic resp failure) secondary to SAH / ICH: Stable. s/p tracheostomy 04/29. -Pulmonology following for trach management. -Macroglossia. Tongue edema again secondary to lower teeth biting with remaining upper teeth. S/P extraction of teeth to help reduce tongue edema by Dr Booth. Without ecchymotic area. Able to retract tongue inside her mouth with help of her finger. Plastic surgery consulted who advised outpatient follow-up with OMFS. -Chronic mild Transaminitis. CT of the abdomen shows normal liver. Repeat LFTs stable and negative hepatitis profile -Mild protein calorie malnutrition - s/p PEG 04/28. - Patient tolerating bolus feedings. -Anemia of chronic inflammation / disease. Hgb stable with no signs of active bleeding -Sepsis secondary to pneumonia and prior UTI - resolved, now off all abx. Resolved. -Agitation-secondary to brain injury. Continue restraints as needed, still requiring restraints intermittently. Continue low-dose Xanax as needed. On Seroquel . Caution with multiple sedating medications, hold parameters placed on Xanax and Lortab. Increase activities being OOB to chair and ambulation can possibly decrease pt. agitation and restlessness. -GI Prophylaxis: Pepcid -DVT Prophylaxis - SCDs; Lovenox 40 q day -Rehab: PT / OT. Ambulating in the hallway as per physical therapy. Have been increasing in her activities and tolerating it. Discharge Planning Patient's family wants to take her home. Case management following. Assisting with medical equipments. Still waiting for insurance company. Discharge Planning Difficulty placement, case liner following Zeinab Ren MD Sep 21, 2016 11:22
[2016-09-22] VITALS (7 sets, daily range): BP systolic 112–140; BP diastolic 64–81; PULSE 62–91; RESP 17–20; TEMP 95.7–97.9; O2SAT 98–100
[2016-09-22] MEDS: LABETALOL HCL 300 MG TAB TUBE SCH ×3 (05:56→22:24)
[2016-09-22] MEDS: hydrALAZINE HCL 25 MG TAB TUBE SCH ×3 (05:56→22:24)
[2016-09-22] MEDS: CHLORHEXIDINE GLUCONATE 0.12% 30 ML CUP OTHER SCH ×2 (09:43→21:00)
[2016-09-22] MEDS: ENOXAPARIN SODIUM 40 MG/0.4 ML SYRINGE SQ SCH (09:43)
[2016-09-22] MEDS: QUEtiapine FUMARATE 25 MG TAB TUBE SCH ×2 (09:43→22:24)
[2016-09-22] MEDS: FAMOTIDINE 20 MG TAB TUBE SCH ×2 (09:43→22:23)
[2016-09-22] MEDS: SODIUM CHLORIDE 0.9% FLUSH 5 ML FLUSH IVF SCH ×2 (09:44→22:30)
[2016-09-22] MEDS ORDERED: LIDOCAINE 1%/EPINEPHrine 1:100,000 SOLN 30 ML VIAL ONE (10:57)
[2016-09-22] MEDS ORDERED: fentaNYL CITRATE 250 MCG/5 ML AMP ONE (11:38)
[2016-09-22] MEDS ORDERED: DEXAMETHASONE SOD PHOS 4 MG/ML VIAL ONE (11:38)
[2016-09-22] MEDS ORDERED: MIDAZOLAM HCL 2 MG/2 ML VIAL ONE (11:38)
[2016-09-22] MEDS ORDERED: FAMOTIDINE 20 MG/2 ML VIAL ONE (11:38)
[2016-09-22] MEDS ORDERED: ACETAMINOPHEN 1000 MG/100 ML VIAL IV ONE (11:38)
[2016-09-22] MEDS ORDERED: DO NOT ADM ANY ANTICOAGULANT DRUGS XX PRN (12:45)
--- NOTE | 2016-09-22 15:05 | HHI.PR ---
Subjective Remarks No acute issue still awaiting arrangement for the equipment for the patient to be discharged Objective Vitals Vital Signs Date Time Temp Pulse Resp B/P Pulse Ox O2 Delivery O2 Flow Rate FiO2 09/22/16 13:15 56 16 127/79 99 Trach Collar 2 09/22/16 13:00 58 16 125/84 99 Trach Collar 2 09/22/16 12:45 60 16 124/82 99 Trach Collar 2 09/22/16 12:30 66 16 114/75 98 Trach Collar 3 09/22/16 12:15 98.2 90 16 112/73 95 Trach Collar 4 09/22/16 08:00 96.3 72 20 128/79 98 09/22/16 06:28 97.1 74 18 125/69 100 09/22/16 00:00 97.1 74 18 125/69 100 09/21/16 22:27 97.7 75 18 100/60 98 09/21/16 20:47 97 Trach Collar 21 09/21/16 16:00 96.9 68 18 120/70 100 I/O 09/21/16 09/21/16 09/21/16 09/22/16 09/22/16 09/22/16 07:00 15:00 23:00 07:00 15:00 23:00 Intake Total 820 ml 50 ml Balance 820 ml 50 ml IV Total 50 ml Tube Feeding 640 ml Other 180 ml # Voids 2 3 1 2 3 # Bowel Movements 1 0 Objective Remarks GENERAL: Patient is sleeping , open eyes to verbal stimuli . 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 ICD Code: I69.11 Status: Chronic (8) Chronic respiratory failure ICD Code: J96.10 Status: Chronic (9) Malignant hypertension ICD Code: I10 Status: Resolved Assessment and Plan 09/18/16: ct should continue current care 09/19/16, home equipment has been delivered, discussed with the housing case manager, patient ready to go home with home health care 09/20/16: She was supposed to be discharged yesterday, after discussion with the housing case manager, however information that hospital but was not delivered yet, and today plan to downsize her trech, respiratory no able to do so, possibly consulting surgery for this : plan for trech downsize surgicaly tomorrow 09/22/16: Patient to be discharged home with home health care when done with the tracheal downsize A/P: 46-year-old female with past medical history of hypertension who was found unresponsive at her home on April 11. Paramedics arrived and she was ventilated with bag mask. She was endotracheal intubated in the emergency department where a head CT showed a large left hemispheric intraparenchymal hemorrhage with subarachnoid blood. Subsequent CTA revealed a left middle cerebral aneurysm. -Acute subarachnoid hemorrhage (left middle cerebral artery aneurysm)-- s/p endovascular coiling of MCA ruptured cerebral aneurysm 04/11 -Large left frontal hemorrhage with Intracranial hypertension with devastating neurologic injury- Patient with significant dominant hemisphere frontal temporal lobe hemorrhage and consequent cerebral injury and has had no meaningful neurologic recovery. s/p Dr. Meléndez performed left decompressive craniotomy 04/25 with evacuation of temporal hematoma. DESK ASSISTANT shunt placed 05/07. S/p bone flap on 05/22. The patient has had some improvement and does follow most commands. Improving with PT. -Malignant Hypertension (Hypertensive emergency) on admission -- s/p 3 weeks of Nimotop therapy for vasospasm prevention. in SAH patient. now targeting SBP < 160. Continue Norvasc 10 q day, HCTZ 25 mg daily , labetalol 300 mg PO TID, hydralazine 75 mg q8. Hold parameters. Blood pressure stable. No change in management. 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 Not a candidate for surgical intervention due to recent devastating neuro injury -Acute respiratory failure (now chronic resp failure) secondary to SAH / ICH: Stable. s/p tracheostomy 04/29. -Pulmonology following for trach management. -Macroglossia. Tongue edema again secondary to lower teeth biting with remaining upper teeth. S/P extraction of teeth to help reduce tongue edema by Dr Booth. Without ecchymotic area. Able to retract tongue inside her mouth with help of her finger. Plastic surgery consulted who advised outpatient follow-up with [facility]FS. -Chronic mild Transaminitis. CT of the abdomen shows normal liver. Repeat LFTs stable and negative hepatitis profile -Mild protein calorie malnutrition - s/p PEG 04/28. - Patient tolerating bolus feedings. -Anemia of chronic inflammation / disease. Hgb stable with no signs of active bleeding -Sepsis secondary to pneumonia and prior UTI - resolved, now off all abx. Resolved. -Agitation-secondary to brain injury. Continue restraints as needed, still requiring restraints intermittently. Continue low-dose Xanax as needed. On Seroquel . Caution with multiple sedating medications, hold parameters placed on Xanax and Lortab. Increase activities being OOB to chair and ambulation can possibly decrease pt. agitation and restlessness. -GI Prophylaxis: Pepcid -DVT Prophylaxis - SCDs; Lovenox 40 q day -Rehab: PT / OT. Ambulating in the hallway as per physical therapy. Have been increasing in her activities and tolerating it. Discharge Planning Patient's family wants to take her home. Case management following. Assisting with medical equipments. Still waiting for insurance company. Discharge Planning Patient cleared to be discharged once tracheal downsize is done and all equipment arrange to be at her house, she will go with home health care Zeinab Ren MD Sep 22, 2016 15:05
[2016-09-23 05:00] VITALS: PULSE 88; RESP 18; TEMP 98.4; O2SAT 99
[2016-09-23] MEDS: hydrALAZINE HCL 25 MG TAB TUBE SCH ×3 (06:00→22:17)
[2016-09-23] MEDS: LABETALOL HCL 300 MG TAB TUBE SCH ×3 (06:00→22:18)
[2016-09-23 07:40] VITALS: O2SAT 97
[2016-09-23 08:00] VITALS: BP 122/83; PULSE 67; RESP 20; TEMP 97.5; O2SAT 100
[2016-09-23] MEDS: CHLORHEXIDINE GLUCONATE 0.12% 30 ML CUP OTHER SCH ×2 (08:57→22:16)
[2016-09-23] MEDS: ENOXAPARIN SODIUM 40 MG/0.4 ML SYRINGE SQ SCH (08:57)
[2016-09-23] MEDS: SODIUM CHLORIDE 0.9% FLUSH 5 ML FLUSH IVF SCH ×2 (08:57→22:16)
[2016-09-23] MEDS: QUEtiapine FUMARATE 25 MG TAB TUBE SCH ×2 (08:58→22:17)
[2016-09-23] MEDS: FAMOTIDINE 20 MG TAB TUBE SCH ×2 (08:58→22:20)
--- NOTE | 2016-09-23 09:51 | HHI.PR ---
Subjective Subjective Notes Resting in bed On trach collar Objective Vitals/I&O Vital Signs Date Time Temp Pulse Resp B/P Pulse Ox O2 Delivery O2 Flow Rate FiO2 09/23/16 08:00 97.5 67 20 122/83 100 09/23/16 07:40 Trach Collar 6.00 21 Cardiovascular: Regular Lungs: Clear Abdomen: Non-distended, Non-tender Narrative Exam Trach in good position; no bleeding or drainage ---now with cuffless #6 Tongue protruding A/P Assessment and Plan 46 year old female resp failure s/p aneurism -POD1 trach exchange -In good position -Continue trach care -GS will sign off Mary Barker Sep 23, 2016 09:51
[2016-09-23 12:00] VITALS: BP 131/78; PULSE 81; RESP 21; TEMP 96; O2SAT 100
[2016-09-23] MEDS ORDERED: JEVILIQ12 TUBE (12:54)
--- NOTE | 2016-09-23 15:57 | HHI.PR ---
Subjective Remarks Patient status post tracheal exchange yesterday, she is stable doing well today acute issue, she should be stable for discharge once all arrangements is done Objective Vitals Vital Signs Date Time Temp Pulse Resp B/P Pulse Ox O2 Delivery O2 Flow Rate FiO2 09/23/16 12:00 96.0 81 21 131/78 100 09/23/16 08:00 97.5 67 20 122/83 100 09/23/16 07:40 97 Trach Collar 6.00 21 09/23/16 05:00 98.4 88 18 99 09/22/16 23:45 97.7 89 17 115/65 99 09/22/16 22:00 97.9 91 18 112/64 99 09/22/16 20:15 99 Trach Collar 21 09/22/16 16:00 95.7 62 20 140/81 99 I/O 09/22/16 09/22/16 09/22/16 09/23/16 09/23/16 09/23/16 07:00 15:00 23:00 07:00 15:00 23:00 Intake Total 50 ml 0 ml 0 ml Balance 50 ml 0 ml 0 ml Intake Oral 0 ml 0 ml IV Total 50 ml # Voids 2 3 2 3 2 # Bowel Movements 0 3 0 0 Objective Remarks GENERAL: Patient is sleeping , open eyes to verbal stimuli . 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 ICD Code: I69.11 Status: Chronic (8) Chronic respiratory failure ICD Code: J96.10 Status: Chronic (9) Malignant hypertension ICD Code: I10 Status: Resolved Assessment and Plan 09/18/16: ct should continue current care 09/19/16, home equipment has been delivered, discussed with the case investigator, patient ready to go home with home health care 09/20/16: She was supposed to be discharged yesterday, after discussion with the case investigator, however information that hospital but was not delivered yet, and today plan to downsize her trech, respiratory no able to do so, possibly consulting surgery for this : plan for trech downsize surgicaly tomorrow 09/22/16: Patient to be discharged home with home health care when done with the tracheal downsize 09/23/16: Doing well post tracheal exchange by surgery, patient can be discharged any time once all equipment and arrangement is ready A/P: 46-year-old female with past medical history of hypertension who was found unresponsive at her home on April 11. Paramedics arrived and she was ventilated with bag mask. She was endotracheal intubated in the emergency department where a head CT showed a large left hemispheric intraparenchymal hemorrhage with subarachnoid blood. Subsequent CTA revealed a left middle cerebral aneurysm. -Acute subarachnoid hemorrhage (left middle cerebral artery aneurysm)-- s/p endovascular coiling of MCA ruptured cerebral aneurysm 04/11 -Large left frontal hemorrhage with Intracranial hypertension with devastating neurologic injury- Patient with significant dominant hemisphere frontal temporal lobe hemorrhage and consequent cerebral injury and has had no meaningful neurologic recovery. s/p Dr. Meléndez performed left decompressive craniotomy 04/25 with evacuation of temporal hematoma. PAYING TELLER shunt placed 05/07. S/p bone flap on 05/22. The patient has had some improvement and does follow most commands. Improving with PT. -Malignant Hypertension (Hypertensive emergency) on admission -- s/p 3 weeks of Nimotop therapy for vasospasm prevention. in SAH patient. now targeting SBP < 160. Continue Norvasc 10 q day, HCTZ 25 mg daily , labetalol 300 mg PO TID, hydralazine 75 mg q8. Hold parameters. Blood pressure stable. No change in management. 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 Not a candidate for surgical intervention due to recent devastating neuro injury -Acute respiratory failure (now chronic resp failure) secondary to SAH / ICH: Stable. s/p tracheostomy 04/29. -Pulmonology following for trach management. -Macroglossia. Tongue edema again secondary to lower teeth biting with remaining upper teeth. S/P extraction of teeth to help reduce tongue edema by Dr Booth. Without ecchymotic area. Able to retract tongue inside her mouth with help of her finger. Plastic surgery consulted who advised outpatient follow-up with [facility]FS. -Chronic mild Transaminitis. CT of the abdomen shows normal liver. Repeat LFTs stable and negative hepatitis profile -Mild protein calorie malnutrition - s/p PEG 04/28. - Patient tolerating bolus feedings. -Anemia of chronic inflammation / disease. Hgb stable with no signs of active bleeding -Sepsis secondary to pneumonia and prior UTI - resolved, now off all abx. Resolved. -Agitation-secondary to brain injury. Continue restraints as needed, still requiring restraints intermittently. Continue low-dose Xanax as needed. On Seroquel . Caution with multiple sedating medications, hold parameters placed on Xanax and Lortab. Increase activities being OOB to chair and ambulation can possibly decrease pt. agitation and restlessness. -GI Prophylaxis: Pepcid -DVT Prophylaxis - SCDs; Lovenox 40 q day -Rehab: PT / OT. Ambulating in the hallway as per physical therapy. Have been increasing in her activities and tolerating it. Discharge Planning Patient's family wants to take her home. Case management following. Assisting with medical equipments. Still waiting for insurance company. Discharge Planning Patient cleared to be discharged when all equipment arrange to be at her house, with home health care, previous manager product design Discharge order placed again Zeinab Ren MD Sep 23, 2016 15:57
[2016-09-23 16:00] VITALS: BP 109/61; PULSE 82; RESP 18; TEMP 97.6; O2SAT 96
[2016-09-23] MEDS ORDERED: BACITRACIN TOP OINT 15 GM TUBE TOP ONE (18:15)
[2016-09-23 20:17] VITALS: BP 113/76; PULSE 68; RESP 18; TEMP 98; O2SAT 98
[2016-09-24 00:36] VITALS: BP 126/75; PULSE 66; RESP 17; TEMP 97.7; O2SAT 99
[2016-09-24 05:04] VITALS: BP 119/66; PULSE 75; RESP 17; TEMP 97.8; O2SAT 96
[2016-09-24] MEDS: hydrALAZINE HCL 25 MG TAB TUBE SCH ×2 (06:00→14:32)
[2016-09-24] MEDS: LABETALOL HCL 300 MG TAB TUBE SCH ×2 (06:00→14:32)
[2016-09-24 08:48] VITALS: BP 109/69; PULSE 73; RESP 20; TEMP 97.2; O2SAT 96
[2016-09-24 09:18] VITALS: O2SAT 95
[2016-09-24] MEDS: CHLORHEXIDINE GLUCONATE 0.12% 30 ML CUP OTHER SCH (09:32)
[2016-09-24] MEDS: SODIUM CHLORIDE 0.9% FLUSH 5 ML FLUSH IVF SCH (09:32)
[2016-09-24] MEDS: QUEtiapine FUMARATE 25 MG TAB TUBE SCH (09:33)
[2016-09-24] MEDS: ENOXAPARIN SODIUM 40 MG/0.4 ML SYRINGE SQ SCH (09:33)
[2016-09-24] MEDS: FAMOTIDINE 20 MG TAB TUBE SCH (09:33)
--- NOTE | 2016-09-24 12:07 | HHI.PR ---
Subjective Remarks Patient ready for discharge from medical standpoint, pending home equipment arrangement Objective Vitals Vital Signs Date Time Temp Pulse Resp B/P Pulse Ox O2 Delivery O2 Flow Rate FiO2 09/24/16 09:18 95 Trach Collar 6.00 21 09/24/16 08:48 97.2 73 20 109/69 96 09/24/16 05:04 97.8 75 17 119/66 96 09/24/16 00:36 97.7 66 17 126/75 99 09/23/16 20:17 98.0 68 18 113/76 98 09/23/16 16:00 97.6 82 18 109/61 96 I/O 09/23/16 09/23/16 09/23/16 09/24/16 09/24/16 09/24/16 07:00 15:00 23:00 07:00 15:00 23:00 Intake Total 0 ml Balance 0 ml Intake Oral 0 ml # Voids 3 2 4 # Bowel Movements 0 0 Objective Remarks GENERAL: Patient is sleeping , open eyes to verbal stimuli . 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 ICD Code: I69.11 Status: Chronic (8) Chronic respiratory failure ICD Code: J96.10 Status: Chronic (9) Malignant hypertension ICD Code: I10 Status: Resolved Assessment and Plan 09/18/16: ct should continue current care 09/19/16, home equipment has been delivered, discussed with the case management manager, patient ready to go home with home health care 09/20/16: She was supposed to be discharged yesterday, after discussion with the case management manager, however information that hospital but was not delivered yet, and today plan to downsize her trech, respiratory no able to do so, possibly consulting surgery for this : plan for trech downsize surgicaly tomorrow 09/22/16: Patient to be discharged home with home health care when done with the tracheal downsize 09/23/16: Doing well post tracheal exchange by surgery, patient can be discharged any time once all equipment and arrangement is ready 09/24/16: Patient ready and medically stable for discharge, pending is home equipment arrangement, case management following A/P: 46-year-old female with past medical history of hypertension who was found unresponsive at her home on April 11. Paramedics arrived and she was ventilated with bag mask. She was endotracheal intubated in the emergency department where a head CT showed a large left hemispheric intraparenchymal hemorrhage with subarachnoid blood. Subsequent CTA revealed a left middle cerebral aneurysm. -Acute subarachnoid hemorrhage (left middle cerebral artery aneurysm)-- s/p endovascular coiling of MCA ruptured cerebral aneurysm 04/11 -Large left frontal hemorrhage with Intracranial hypertension with devastating neurologic injury- Patient with significant dominant hemisphere frontal temporal lobe hemorrhage and consequent cerebral injury and has had no meaningful neurologic recovery. s/p Dr. Meléndez performed left decompressive craniotomy 04/25 with evacuation of temporal hematoma. 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 S/p bone flap on 05/22. The patient has had some improvement and does follow most commands. Improving with PT. -Malignant Hypertension (Hypertensive emergency) on admission -- s/p 3 weeks of Nimotop therapy for vasospasm prevention. in SAH patient. now targeting SBP < 160. Continue Norvasc 10 q day, HCTZ 25 mg daily , labetalol 300 mg PO TID, hydralazine 75 mg q8. Hold parameters. Blood pressure stable. No change in management. 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 Not a candidate for surgical intervention due to recent devastating neuro injury -Acute respiratory failure (now chronic resp failure) secondary to SAH / ICH: Stable. s/p tracheostomy 04/29. -Pulmonology following for trach management. -Macroglossia. Tongue edema again secondary to lower teeth biting with remaining upper teeth. S/P extraction of teeth to help reduce tongue edema by Dr Booth. Without ecchymotic area. Able to retract tongue inside her mouth with help of her finger. Plastic surgery consulted who advised outpatient follow-up with OMFS. -Chronic mild Transaminitis. CT of the abdomen shows normal liver. Repeat LFTs stable and negative hepatitis profile -Mild protein calorie malnutrition - s/p PEG 04/28. - Patient tolerating bolus feedings. -Anemia of chronic inflammation / disease. Hgb stable with no signs of active bleeding -Sepsis secondary to pneumonia and prior UTI - resolved, now off all abx. Resolved. -Agitation-secondary to brain injury. Continue restraints as needed, still requiring restraints intermittently. Continue low-dose Xanax as needed. On Seroquel . Caution with multiple sedating medications, hold parameters placed on Xanax and Lortab. Increase activities being OOB to chair and ambulation can possibly decrease pt. agitation and restlessness. -GI Prophylaxis: Pepcid -DVT Prophylaxis - SCDs; Lovenox 40 q day -Rehab: PT / OT. Ambulating in the hallway as per physical therapy. Have been increasing in her activities and tolerating it. Discharge Planning Patient's family wants to take her home. Case management following. Assisting with medical equipments. Still waiting for insurance company. Discharge Planning Patient cleared medically to be discharged pending home equipment arrangement which followed by case management manager Discharge order placed again to be applied once arrangement is non- Zeinab Ren MD Sep 24, 2016 12:07
[2016-09-24 13:16] VITALS: BP 131/70; PULSE 65; RESP 20; TEMP 96.3; O2SAT 100
[2016-09-24] MEDS ORDERED: [UNRECOGNIZED DRUG - CODE] (13:53)
[2016-09-24] MEDS ORDERED: ARGY3MIS8 (13:53)
[2016-09-24] MEDS ORDERED: [UNRECOGNIZED DRUG - CODE] (14:16)
--- NOTE | 2016-09-25 14:35 | MP ---
cc: KANE RAWLS M.D. DATE OF SURGERY 09/22/2016 PREOPERATIVE DIAGNOSIS Tracheostomy with ingrowth of tissue and inability to be removed at the bedside. POSTOPERATIVE DIAGNOSIS Tracheostomy with ingrowth of tissue and inability to be removed at the bedside. PROCEDURE 1. Bronchoscopy to evaluate tracheostomy site. 2. Removal of the #8 Shiley tracheostomy site with dilatation of the skin edges to remove the trachea with revision of the trachea to accommodate a #6 cuffless fenestrated tracheostomy tube. ANESTHESIA Heavy sedation SURGEON Dr. Rawls INDICATIONS This is an unfortunate 46-year-old female who has been in the hospital since March. She had an intracranial hemorrhage. She has had a trache. She was getting set to go to rehab. Unfortunately her tracheostomy tube was unable to be removed at the bedside despite vigorous retraction causing coughing spells. Plans were made for operative evaluation with bronchoscopy. PROCEDURE The patient was taken to the operating room, placed in the supine position after some anesthesia for sedation. Bronchoscopy was done. Her trachea appears clear. There is some minimal secretions which were evacuated. I do not see any tissue ingrowth along the distal edge of the trachea. With gentle retraction, it appears just under the skin, the skin has grown around the tracheostomy tube preventing it from removal with gentle traction. The bronchoscope was then removed and then we were able to gently twist the tracheostomy tube and with some blunt retraction, I am able to gently pull on the trachea. I did inflate the balloon and deflated it a couple times to break up any granulation tissue and essentially this helped remove the tracheostomy tube. Once this was done, we then placed a 6 fenestrated uncuffed tracheostomy tube after clearing the stoma of granulation tissue with blunt dissection. The tracheostomy tube, as described, was then replaced. Bronchoscopy was done. There was minimal secretions. She appears stable and dressing is applied around the tracheostomy tube and the trache tape is placed. She returned to the recovery room, anticipating downsizing this trachea now that it can be removed. MD SAWYER Jean/CHRISTINE /2:24 PM /2:30 PM
== END 2016-09-24 18:06 | disposition home or self-care (01) | DRG 3 ==
LOC: NEPC 11:17 → NEDA 12:23 → N03B 13:00 → N05A 05-25 18:50
PROVIDERS: ADMIT Internal Medicine; ATTEND Internal Medicine
PROC: 00160J6 Bypass Cerebral Ventricle to Peritoneal Cavity with Synthetic Substitute, Open Approach (ICD-10-PCS; principal; 2016-04-11)
PROC: 5A1955Z Respiratory Ventilation, Greater than 96 Consecutive Hours (ICD-10-PCS; 2016-04-11)
PROC: 05H633Z Insertion of Infusion Device into Left Subclavian Vein, Percutaneous Approach (ICD-10-PCS; 2016-04-11)
PROC: 00C70ZZ Extirpation of Matter from Cerebral Hemisphere, Open Approach (ICD-10-PCS; 2016-04-26)
PROC: 0DH64UZ Insertion of Feeding Device into Stomach, Percutaneous Endoscopic Approach (ICD-10-PCS; 2016-04-28)
PROC: 0B113F4 Bypass Trachea to Cutaneous with Tracheostomy Device, Percutaneous Approach (ICD-10-PCS; 2016-04-29)
PROC: 0BJ08ZZ Inspection of Tracheobronchial Tree, Via Natural or Artificial Opening Endoscopic (ICD-10-PCS; 2016-04-29)
PROC: 0CDXXZ1 Extraction of Lower Tooth, Multiple, External Approach (ICD-10-PCS; 2016-05-16)
PROC: [UNRECOGNIZED PROCEDURE] (2016-05-22)
PROC: 0NQS0ZZ (ICD-10-PCS; 2016-07-13)
PROC: 0CDXXZ1 Extraction of Lower Tooth, Multiple, External Approach (ICD-10-PCS; 2016-07-13)
PROC: 0BP1XFZ Removal of Tracheostomy Device from Trachea, External Approach (ICD-10-PCS; 2016-09-22)
PROC: 0BW1XFZ Revision of Tracheostomy Device in Trachea, External Approach (ICD-10-PCS; 2016-09-22)
DX: S06.6X9A Traumatic subarachnoid hemorrhage with loss of consciousness of unspecified duration, initial encounter (principal); R65.20 Severe sepsis without septic shock; J69.0 Pneumonitis due to inhalation of food and vomit; G93.40 Encephalopathy, unspecified; G91.9 Hydrocephalus, unspecified; E87.0 Hyperosmolality and hypernatremia; R13.10 Dysphagia, unspecified; J96.10 Chronic respiratory failure, unspecified whether with hypoxia or hypercapnia; Z99.11 Dependence on respirator [ventilator] status; N39.0 Urinary tract infection, site not specified; E44.1 Mild protein-calorie malnutrition; I42.1 Obstructive hypertrophic cardiomyopathy; E87.2 Acidosis; B96.20 Unspecified Escherichia coli [E. coli] as the cause of diseases classified elsewhere; K02.9 Dental caries, unspecified; Q38.2 Macroglossia; S01.512A Laceration without foreign body of oral cavity, initial encounter; R40.2432 Glasgow coma scale score 3-8, at arrival to emergency department; G93.2 Benign intracranial hypertension; T78.3XXA Angioneurotic edema, initial encounter; W19.XXXA Unspecified fall, initial encounter; S02.5XXA Fracture of tooth (traumatic), initial encounter for closed fracture; E83.42 Hypomagnesemia; E87.6 Hypokalemia; E87.5 Hyperkalemia; D64.9 Anemia, unspecified; Z78.1 Physical restraint status
CPT/HCPCS: 31500; 31624; 36217; 36218; 36224; 36228; 36430; 36556; 36600; 51702; 61210; 61624; 70250; 70450; 70496; 70498; 71010; 73502; 73552; 74176; 75774; 75894; 75898; 76937; 80048; 80053; 80074; 80076; 80202; 80301; 80320; 81003; 82272; 82565; 82805; 82945; 83605; 83735; 83930; 83935; 84100; 84132; 84155; 84157; 84295; 84300; 84443; 85007; 85014; 85018; 85025; 85027; 85610; 85730; 86850; 86900; 86901; 86920; 87040; 87070; 87077; 87086; 87184; 87185; 87186; 87205; 87493; 87641; 89051; 93306; 94002; 94003; 94640; 94664; 94770; 95819; 99144; 99145; 99292; A7520; A7521; C1713; C1760; C1769; C1887; C1894; C9113; G0269; G0479; J0131; J0171; J0330; J0360; J0461; J0690; J0696; J1040; J1100; J1170; J1580; J1644; J1650; J1940; J1953; J1956; J2060; J2250; J2270; J2370; J2405; J2543; J2710; J2765; J2930; J3010; J3370; J3475; J3480; J7030; J7040; J7050; J7120; P9016; P9045; P9047; Q9967

== ENCOUNTER 2016-09-24 22:43 | Emergency (ER) | payer OTHER ==
[~2016-09-24] VITALS: Ht 177.8 cm; Wt 90.0 kg
[~2016-09-24 22:43] MED LIST changes: +ALPR.25 PO; +AMLO10 TUBE; +ARGY3MIS8; +ENOX40P SQ; +FAMO20TA2 TUBE; +GETGO ROLLING W1 MI1; +HOSP BED2; +HYDR-3516 TUBE; +HYDR25TA35 TUBE; +IPRASOL INH; +JEVILIQ12 TUBE; +LABE300T TUBE; +QUET1TAB7 TUBE; +WHEEMIS3; +[UNRECOGNIZED DRUG - CODE]; +[UNRECOGNIZED DRUG - CODE]
[2016-09-24 22:57] VITALS: BP 116/69; PULSE 72; RESP 16; TEMP 98; O2SAT 97
--- NOTE | 2016-09-24 22:59 | PD ---
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 She is nonverbal and has no other presenting issues per paramedics. PFSH Past Medical History Arthritis: No Asthma: No Autoimmune Disease: No Blood Disorders: No Anxiety: No Depression: No Heart Rhythm Problems: No Cancer: No High Cholesterol: No Chest Pain: No Congestive Heart Failure: No COPD: No Cerebrovascular Accident: No Diabetes: No Diminished Hearing: No GERD: No Headaches: No Hepatitis: No Hiatal Hernia: No Hypertension: Yes Kidney Stones: No Myocardial Infarction: No Renal Failure: No Seizures: No Sleep Apnea: No Thyroid Disease: No Ulcer: No : 4 Para: 2 Miscarriage: 2 : 0 Ectopic : Yes Tubal Ligation: Yes Past Surgical History AICD: No Eye Surgery: Yes (12/07) Pacemaker: No Social History Alcohol Use: No Tobacco Use: Yes (patient reports that she quit smoking when she found out she was .) Substance Use: No Allergies-Medications (Allergen,Severity, Reaction): Coded Allergies: No Known Allergies (Verified , 04/11/16) Reported Meds & Prescriptions Reported Meds & Active Scripts Active Mora Open Suction Mini (N/A) 1 Mis Mis 1 Ea .ROUTE DIRECTED Mora Suction Tubing/Mol (Feeding Tubes - Tubing) 1 Mis Mis Units Mora Tracheostomy Care (Tracheostomy Care) 1 Kit Kit Units Jevity 1.5 Slade (Nutritional Supplements) 1 Liq Liq 320 Ml TUBE Q6H 30 Days Xanax (Alprazolam) 0.25 Mg Tab 0.25 Mg PO Q8H PRN Quetiapine (Quetiapine Fumarate) 25 Mg Tab 25 Mg TUBE DAILY Quetiapine (Quetiapine Fumarate) 25 Mg Tab 50 Mg TUBE HS Labetalol (Labetalol HCl) 300 Mg Tab 300 Mg TUBE Q8HR Duoneb (Ipratropium-Albuterol Neb) 0.5-2.5 Mg/3 Ml Neb 1 Ampule INH Q4HR NEB PRN Hydrocodone-Acetaminophen 5-325 mg Tab 1 Tab TUBE Q6H PRN Hydralazine (Hydralazine HCl) 25 Mg Tab 75 Mg TUBE Q8HR Famotidine 20 Mg Tab 20 Mg TUBE Q12HR Lovenox Inj (Enoxaparin Sodium) 40 Mg/0.4 Ml Syr 40 Mg SQ Q24H Norvasc (Amlodipine Besylate) 10 Mg Tab 10 Mg TUBE DAILY Hospital Bed - Manual 1 Ea Ea 1 Ea .ROUTE DIRECTED Wheelchair (Device) 1 Mis Mis 1 Ea .ROUTE DIRECTED Walker Rolling/GetGo (Device) 1 Mis Mis 1 Ea .ROUTE DIRECTED Reported Prinivil (Lisinopril) 20 Mg Tab 20 Mg PO DAILY Coreg (Carvedilol) 12.5 Mg Tab 12.5 Mg PO BID Anaprox DS (Naproxen Sodium) 550 Mg Tab 550 Mg PO BID PRN Review of Systems ROS Limitations: Speech Impaired Physical Exam Narrative GENERAL:Well appearing, no acute distress SKIN: Warm and dry. HEAD: Atraumatic. Normocephalic. EYES: Pupils equal and round. No injection or drainage. ENT: Moist mucous membranes NECK: Tracheostomy stoma is pink and patent. CARDIOVASCULAR: Regular rate and rhythm. No murmur appreciated. RESPIRATORY: Clear to auscultation. Breath sounds equal bilaterally. GASTROINTESTINAL: Abdomen soft, non-tender, nondistended. MUSCULOSKELETAL: No obvious deformities. NEUROLOGICAL: Awake and alert. No obvious cranial nerve deficits. Left hemiparesis. PSYCHIATRIC: Appropriate mood and affect; insight and judgment normal. Data Data Last Documented VS Vital Signs Date Time Temp Pulse Resp B/P Pulse Ox O2 Delivery O2 Flow Rate FiO2 09/24/16 22:57 98.0 72 16 116/69 97 Room Air Orders Tube, Trach Cuffed Fen: #6 Ea (09/24/16 22:47) Tube, Trach Cuffed Fen: #4 Ea (09/24/16 23:40) MDM Medical Decision Making Medical Screen Exam Complete: Yes Emergency Medical Condition: Yes Differential Diagnosis Tracheostomy dislodgment Narrative Course This is a 46-year-old female who was a history of an intracranial hemorrhage who presents to the emergency department with dislodgment of her tracheostomy. She had a 6 Grenadian uncuffed tracheostomy tube in place which was dislodged. I did attempt to replace a 6 Grenadian tracheostomy but was unsuccessful. I obtained a 4 Grenadian uncuffed tube which I was able to pass easily. Patient will be discharged home. Diagnosis Primary Impression: Tracheostomy malfunction Patient Instructions: General Instructions Med/Other Pt SpecificInfo: No Change to Meds Disposition: 01 DISCHARGE HOME Condition: Stable Angélica Guzmán MD Sep 24, 2016 22:59
[2016-09-25] MEDS ORDERED: QUEtiapine FUMARATE 25 MG TAB PO ONE (03:30)
[2016-09-25] MEDS ORDERED: ALPRAZolam 0.25 MG TAB PO ONE (03:30)
[2016-09-25 04:13] VITALS: BP 112/65; PULSE 64; RESP 16; O2SAT 100
[2016-09-25 07:32] VITALS: BP 141/81; PULSE 65; RESP 20; O2SAT 99
[2016-09-25 10:02] VITALS: BP 138/82
== END 2016-09-25 10:25 | disposition home or self-care (01) ==
LOC: NEPC 22:43 → NEPA 09-25 10:25
DX: J95.03 Malfunction of tracheostomy stoma (principal); I10 Essential (primary) hypertension
CPT/HCPCS: 99283; A7521

== ENCOUNTER 2016-10-07 05:05 | Observation (INO) | payer OTHER ==
[2016-10-07] VITALS (8 sets, daily range): BP systolic 97–153; BP diastolic 71–96; PULSE 57–100; RESP 15–18; TEMP 98.8; O2SAT 97–100
[~2016-10-07] VITALS: Ht 172.7 cm; Wt 68.0 kg
--- NOTE | 2016-10-07 05:35 | PD ---
HPI Chief Complaint: Respiratory Symptoms Time Seen by Provider: 05:21 Travel History International Travel<30 days: No Contact w/Intl Traveler<30days: No Traveled to known affect area: No History of Present Illness HPI The patient is a 46 year old female who presents to the [facility] emergency department with a history of tracheostomy placement related to a ruptured aneurysm and intracranial hemorrhage, who presents status post removal of her tracheostomy. The patient last did this on September 24, 2016. The patient is minimally verbal. The patient nods her head yes and no to questions. She denies having any other acute complaints. The patient has a feeding tube in place. PFS Past Medical History Narrative Medical The patient's past medical history is significant for a cerebral aneurysm and history of intracranial hemorrhage, history of hypertension. Arthritis: No Asthma: No Autoimmune Disease: No Blood Disorders: No Anxiety: No Depression: No Heart Rhythm Problems: No Cancer: No High Cholesterol: No Chest Pain: No Congestive Heart Failure: No COPD: No Cerebrovascular Accident: No Diabetes: No Diminished Hearing: No GERD: No Headaches: No Hepatitis: No Hiatal Hernia: No Hypertension: Yes Kidney Stones: No Myocardial Infarction: No Renal Failure: No Seizures: No Sleep Apnea: No Thyroid Disease: No Ulcer: No Tetanus Vaccination: Unknown ?: Not : 4 Para: 2 Miscarriage: 2 : 0 Ectopic : Yes Tubal Ligation: Yes Past Surgical History Narrative Surgical The patient's past surgical history is significant for a bilateral tubal ligation, eye surgery, tracheostomy, feeding tube placement. AICD: No Eye Surgery: Yes (12/07) Pacemaker: No Social History Alcohol Use: No Tobacco Use: No (patient reports that she quit smoking when she found out she was .) Substance Use: No Allergies-Medications (Allergen,Severity, Reaction): Coded Allergies: No Known Allergies (Verified , 04/11/16) Reported Meds & Prescriptions Reported Meds & Active Scripts Active Jevity 1.5 Slade (Nutritional Supplements) 1 Liq Liq 320 Ml TUBE Q6H 30 Days Xanax (Alprazolam) 0.25 Mg Tab 0.25 Mg PO Q8H PRN Quetiapine (Quetiapine Fumarate) 25 Mg Tab 25 Mg TUBE DAILY Quetiapine (Quetiapine Fumarate) 25 Mg Tab 50 Mg TUBE HS Labetalol (Labetalol HCl) 300 Mg Tab 300 Mg TUBE Q8HR Duoneb (Ipratropium-Albuterol Neb) 0.5-2.5 Mg/3 Ml Neb 1 Ampule INH Q4HR NEB PRN Hydrocodone-Acetaminophen 5-325 mg Tab 1 Tab TUBE Q6H PRN Hydralazine (Hydralazine HCl) 25 Mg Tab 75 Mg TUBE Q8HR Lovenox Inj (Enoxaparin Sodium) 40 Mg/0.4 Ml Syr 40 Mg SQ Q24H Norvasc (Amlodipine Besylate) 10 Mg Tab 10 Mg TUBE DAILY Review of Systems Except as stated in HPI: all other systems reviewed are Neg General / Constitutional: No: Fever Eyes: No: Visual changes HENT: Positive: Other (tracheostomy removal), No: Headaches Cardiovascular: No: Chest Pain or Discomfort Respiratory: No: Shortness of Breath Gastrointestinal: No: Abdominal Pain Genitourinary: No: Dysuria Musculoskeletal: No: Pain Skin: No Rash Neurologic: No: Weakness Psychiatric: No: Depression Endocrine: No: Polydipsia Hematologic/Lymphatic: No: Easy Bruising Physical Exam Narrative General: The patient is a well-developed well-nourished female in no acute distress, saturating 98 and 99% on room air.. Head and Neck exam: Head is normocephalic atraumatic. Eyes: Pupils are equal round and reactive to light. Nose: Midline septum with pink mucous membranes Mouth: Dentition unremarkable. Moist mucus membranes. Posterior oropharynx is not erythematous. No tonsillar hypertrophy. Uvula midline. Airway patent. The patient's tongue protrudes from her mouth. The patient is able to open her mouth and her posterior oropharynx is unable to be visualized. Neck: No palpable lymphadenopathy. No nuchal rigidity. No thyromegaly. The patient has a pink stoma noted in the midline over her neck. There is no opening able to be visualized initially on examination. Cardiovascular: Regular rate and rhythm without murmurs, gallops, or rubs. Lungs: Clear to auscultation bilaterally. No wheezes, rhonchi, or rales. Abdomen: Soft, without tenderness to palpation in all 4 quadrants of the abdomen. No guarding, rebound, or rigidity. Normal bowel sounds are audible. Extremities: No clubbing, cyanosis, or edema. 2+ pulses in all 4 extremities. Back: No spinous process tenderness to palpation. No costovertebral angle tenderness to palpation. Skin Exam: No rash noted. Intact skin that is warm and dry. Data Data Last Documented VS Vital Signs Date Time Temp Pulse Resp B/P Pulse Ox O2 Delivery O2 Flow Rate FiO2 10/07/16 05:20 98 10/07/16 05:16 100 16 153/81 Orders Tube, Trach Cuffless Fen:#4 Ea (10/07/16 05:21) Tube, Trach Cuffless Fen:#6 Ea (10/07/16 05:21) Consult Pulmonology (10/07/16 ) Complete Blood Count With Diff (10/07/16 07:22) Basic Metabolic Panel (Bmp) (10/07/16 07:22) Iv Access Insert/Monitor (10/07/16:22) Ecg Monitoring (10/07/16:22) Oximetry (10/07/16 07:22) Wound Care (10/07/16 07:22) Admit Order (Ed Use Only) (10/07/16 07:24) MDM Medical Decision Making Medical Screen Exam Complete: Yes Emergency Medical Condition: Yes Medical Record Reviewed: Yes Differential Diagnosis Accidental tracheostomy removal, versus intentional tracheostomy removal. Narrative Course During the course of the patients emergency department visit, the patients history, examination, and differential diagnosis were reviewed with the patient. The patient according to the record last a 4 [address] trache[address] in place after she removed a 6 Bolivian on September 24, 2016. Respiratory therapy was called at the bedside and a 4 Bolivian uncuffed tracheostomy was attempted to be placed. The obturator was able to easily be placed down into the stoma, however the tracheostomy tube would not pass over it as a stoma was too tight. A second attempt was made to pass the tracheostomy tube over a bougie which easily passed into the trachea, however unfortunately again the tracheostomy would not pass. The patient appears to be in no respiratory distress. A call has been placed out to the hospitalist on-call for consideration of admission. After further discussion with Dr. Mooney, she recommended talking to the yard brakeman on-call as they may be able to assist with getting it in at the bedside. From reviewing the record, the patient had revision of her tracheostomy done by Dr. Rawls on September 22, 2016. He took her to the OR and evaluated with bronchoscopy and removed some granulation tissue at that time in order to replace her 6 Bolivian uncuffed tube. I then spoke to Dr. Kaur at 6:30 AM regarding this patient's case. As I had tried using a bougie without success, he recommended that I speak to the surgeon that revised the tracheostomy. A call was then placed out to Dr. Rawls. At 7AM, I placed a call out to Dr. Rawls. He recalled the patient and explained that Dr. Luna had intended to slowly decrease the size of her tracheostomy with the intention of eventually removing it. He wanted me to call Dr. Luna to discuss a plan. I then called Dr. Luna at approximately 7 :15AM. He recommended that the patient have a dressing applied to the stoma and that the tracheostomy be left out. He wanted the patient admitted for observation and he would see her in consultation. A call was then placed out to the hospitalist group for admission. The patients results were discussed with the patient, including the plan of care. I explained that further testing and/ or monitoring is indicated based on the patients history, examination, and/ or laboratory findings. Therefore, I recommended admission for additional evaluation. The patient expressed understanding and was agreeable with this plan. The patient was admitted to the hospital in stable condition and sent to a bed under the care of the [facility] hospitalist service. Physician Communication Physician Communication Please see above and ED course for physician communication dictated in detail above. Diagnosis Primary Impression: Tracheostomy malfunction Admitting Information Admitting Physician Requests: Observation Kiana Collazo MD Oct 07, 2016 05:35
[2016-10-07] MEDS ORDERED: ACETAMINOPHEN/HYDROcodone 325 MG/5 MG TAB TUBE PRN (08:00)
[2016-10-07] MEDS ORDERED: ALPRAZolam 0.25 MG TAB PO PRN (08:00)
[2016-10-07] MEDS ORDERED: RESP: ALBUTEROL 2.5 MG/IPRATROPIUM 0.5 MG NEB (PRN) INH (08:00)
[2016-10-07] MEDS ORDERED: SODIUM CHLORIDE 0.9% FLUSH 5 ML FLUSH FLUSH PRN (08:00)
[2016-10-07] MEDS ORDERED: NALOXONE HCL 0.4 MG/ML AMP IV PRN (08:00)
[2016-10-07 08:16] LABS: AUTOMATED NEUTROPHIL # 1.2 TH/MM3 (1.8-7.7); EOSINOPHIL # 0.2 TH/MM3 (0-0.4); EOSINOPHIL % 4.6 % (0.0-4.0); HEMATOCRIT 39.1 % (35.0-46.0); HEMO FLAGS DIFF FINAL; LYMPH % 53.4 % (9.0-44.0); MEAN CELL VOLUME 81.1 FL (80.0-100.0); MEAN CORPUSCULAR HEMOGLOBIN 25.9 PG (27.0-34.0); PLATELET COUNT 220 TH/MM3 (150-450); RED BLOOD COUNT 4.82 MIL/MM3 (4.00-5.30); WHITE BLOOD COUNT 3.7 TH/MM3 (4.0-11.0)
[2016-10-07 08:26] LABS: BICARBONATE 24.8 MEQ/L (21.0-32.0); POTASSIUM 4.2 MEQ/L (3.5-5.1)
--- NOTE | 2016-10-07 09:13 | HHI.HP ---
[facility] No Primary Care Physician Admission Diagnosis Tracheostomy Dislodgement Diagnoses: Chief Complaint: Tracheostomy dislodged. Travel History International Travel<30 Days: No Contact w/Intl Traveler <30 Da: No Traveled to Known Affected Are: No History of Present Illness 46-year-old female with a medical history significant for devastating subarachnoid hemorrhage on 04/11/16 with multiple complications including respiratory failure, malignant hypertension, macroglossia and significant impairment in cognitive function. The patient was recently discharged from the hospital. She had a trach due to persistent macroglossia. The patient reportedly pulled out the trach and was brought to the emergency room. She is in no respiratory distress. Pulmonology was consulted and given that she was very stable it was decided to leave the trach out and observe the patient. The patient has some cognitive deficit therefore most of the history is obtained from the medical record. She has no new complaints currently. She is able to answer yes and no to some questions. She denies shortness of breath. No cough. 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 Macroglossia Past Surgical History Left decompressive craniotomy 04/25 with evacuation of temporal hematoma. UNIVERSITY ADMINISTRATOR shunt placed 05/07. S/p bone flap on 05/22 Tracheostomy Allergies: Coded Allergies: No Known Allergies (Verified , 04/11/16) Social History No tobacco, alcohol, or illicit drug use. Physical Exam Vital Signs Vital Signs Date Time Temp Pulse Resp B/P Pulse Ox O2 Delivery O2 Flow Rate FiO2 10/07/16 07:40 60 16 134/72 99 Room Air 10/07/16 05:20 98 10/07/16 05:16 100 16 153/81 100 Physical Exam GENERAL: Patient is awake, follows most commands HEAD: Normocephalic. Tongue edema present and protruded. CARDIOVASCULAR: Regular rate. 2/6 HEMALATHA murmur best heard left upper sternal border RESPIRATORY: Breath sounds equal bilaterally. No accessory muscle use. GASTROINTESTINAL: Abdomen soft, non-tender, nondistended. MUSCULOSKELETAL: No cyanosis, or edema. NEURO: Awake. Follow commands. Some periods of agitation and nonpurposeful movements. Laboratory Laboratory Tests Test 10/07/16 07:55 White Blood Count 3.7 Red Blood Count 4.82 Hemoglobin 12.5 Hematocrit 39.1 Mean Corpuscular Volume 81.1 Mean Corpuscular Hemoglobin 25.9 Mean Corpuscular Hemoglobin 32.0 Concent Red Cell Distribution Width 17.0 Platelet Count 220 Mean Platelet Volume 8.5 Neutrophils (%) (Auto) 34.0 Lymphocytes (%) (Auto) 53.4 Monocytes (%) (Auto) 7.0 Eosinophils (%) (Auto) 4.6 Basophils (%) (Auto) 1.0 Neutrophils # (Auto) 1.2 Lymphocytes # (Auto) 2.0 Monocytes # (Auto) 0.3 Eosinophils # (Auto) 0.2 Basophils # (Auto) 0.0 CBC Comment DIFF FINAL Differential Comment Sodium Level 140 Potassium Level 4.2 Chloride Level 108 Carbon Dioxide Level 24.8 Anion Gap 7 Blood Urea Nitrogen 15 Creatinine 0.83 Estimat Glomerular Filtration 89 Rate Random Glucose 79 Calcium Level 9.7 Result Diagram: 10/07/16 0755 10/07/16 0755 Assessment and Plan Assessment and Plan 46-year-old female with tree of significant intracranial bleeding with residual cognitive deficits, patient had a trach secondary to macroglossia. She pulled out her trach and was brought into the hospital. Patient has no respiratory distress and pulmonology advised to keep the trach out and monitor the patient for 23 hours. Plan: - Observation for 23 hours. Monitor oxygen saturation - Continue the patient's home medication for her chronic conditions including hypertension and occasional agitation. - Appreciate pulmonology consultation. - Case management for discharge planning. Discussed Condition With Louise Goldman MD Oct 07, 2016 09:13
--- NOTE | 2016-10-07 09:26 | MB ---
cc: JEREMY LUNA M.D. DATE OF CONSULTATION 10/07/2016 REASON FOR CONSULTATION Tracheostomy removal. HISTORY OF PRESENT ILLNESS The patient is a 46-year-old -Congolese female who was recently discharged from the hospital. She has a recent intracranial bleed with subsequent respiratory failure on mechanical ventilation, subsequent tracheostomy was done. The patient was discharged with tracheostomy down sized to a #6 and the patient comes to the emergency room from a group home where she removed her tracheostomy and seems to be in no distress. Attempt at putting a size 4 tracheostomy tube was not possible. In view of the patient's stability, the tube was left out. PAST MEDICAL HISTORY 1. Intracranial bleed 2. Previous tracheostomy as outlined above. FAMILY HISTORY AND SOCIAL HISTORY Kindly review extensive records during her recent hospitalization and recent discharge. PHYSICAL EXAM On exam, the patient is alert, appears in no distress. Oxygen saturation 98% on room air. VITAL SIGNS: Temperature 98, pulse 90, respirations 18, blood pressure 150/80. HEENT: Exam unremarkable. Eyes without icterus. NECK: Tracheostomy in place. CHEST: No dullness to percussion, clear to auscultation. Worthy of mention, the patient's tongue piercing could not be put back into her mouth. ABDOMEN: Lax, bowel sounds audible. CARDIAC: PMI not appreciated. S1-S2 audible. No murmur or rub. EXTREMITIES: No clubbing, cyanosis or edema. LABORATORY DATA White count 3.7, hemoglobin 12, hematocrit 39, platelets 220,000. Sodium 140, potassium 4.2, BUN 15, creatinine 0.8. IMPRESSION 1. Status post tracheostomy removal. The patient has removed her own trache while in the group home. 2. Status post intracranial hemorrhage. PLAN The patient's tracheostomy will be left out. Her oxygen saturation is adequate. She is in no distress. We will check arterial blood gas to assess associated hypercarbia although it is doubtful. If it remains stable, she may be discharged after a 24-hour observation and back to the group home. I do thank you for asking me to partake in Mrs. Pride's care. Jeremy Luna MD WWW/CHRISTINE /9:07 AM 9:15 AM
[2016-10-07] MEDS: SODIUM CHLORIDE 0.9% FLUSH 5 ML FLUSH FLUSH SCH ×2 (09:29→21:00)
[2016-10-07] MEDS: QUEtiapine FUMARATE 25 MG TAB TUBE SCH (09:30)
[2016-10-07] MEDS: [UNRECOGNIZED DRUG - OTHER] TUBE SCH ×3 (09:41→18:32)
[2016-10-07] MEDS: ENTERAL FORMULA TUBE SCH ×3 (09:41→18:32)
[2016-10-07 10:02] LABS: BLOOD GAS CARBOXYHEMOGLOBIN 1.3 % (0-4); BLOOD GAS HCO3 27 mmol/L (22-26); BLOOD GAS METHEMOGLOBIN 0.7 % (0-2); BLOOD GAS O2 HGB SATURATION 96 % (90-100); BLOOD GAS OXYGEN CONTENT 15.9 Vol % (12.0-20.0); BLOOD GAS PCO2 42 mmHg (38-42); BLOOD GAS PO2 94 mmHg (61-120); BLOOD GAS TOTAL HGB 11.7 G/DL (12.0-16.0); CRITICAL VALUE NO; FIO2 21 %; TEMP CORR TO 98.6
[2016-10-07 10:03] LABS: DRAW SITE LT RADIAL; NUMBER OF ARTERIAL PUNCTURES 2; STAT YES; ULNAR PULSE PRESENT
[2016-10-07] MEDS: hydrALAZINE HCL 25 MG TAB TUBE SCH ×2 (16:26→22:00)
[2016-10-07] MEDS: LABETALOL HCL 300 MG TAB TUBE SCH ×2 (16:26→22:00)
[2016-10-07] MEDS ORDERED: QUEtiapine FUMARATE 25 MG TAB TUBE SCH (21:00)
[2016-10-08 00:32] VITALS: BP 106/74; PULSE 60; RESP 18; TEMP 98.1; O2SAT 99
[2016-10-08] MEDS: LABETALOL HCL 300 MG TAB TUBE SCH (05:44)
[2016-10-08] MEDS: hydrALAZINE HCL 25 MG TAB TUBE SCH (05:44)
[2016-10-08 05:47] VITALS: BP 121/72; PULSE 74; RESP 18; TEMP 96.9; O2SAT 93
[2016-10-08] MEDS: ENTERAL FORMULA TUBE SCH ×2 (06:00)
[2016-10-08] MEDS: [UNRECOGNIZED DRUG - OTHER] TUBE SCH ×2 (06:00)
[2016-10-08 08:41] VITALS: BP 118/74; PULSE 70; RESP 20; TEMP 98.7; O2SAT 98
--- NOTE | 2016-10-08 09:02 | HHI.DCPOC ---
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 Avoid second hand smoke Call the 24-hour hour crisis hotline for domestic abuse at Louise Jones MD Oct 08, 2016 09:02
--- NOTE | 2016-10-08 09:03 | HHI.FF ---
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 My clinical findings support the need for the requested home health care services because: Ltd mobility - disease progression Impaired cognition/judgement I certify that my clinical findings support that this patient is homebound because: Impaired cognitive ability/safety Need for psychosocial assistance Louise Jones MD Oct 08, 2016 09:03
--- NOTE | 2016-10-08 09:09 | HHI.PR ---
Subjective Remarks Patient did well overnight. She has no complaints. Maintaining oxygenation on room air. Discussed dc planning with daughter. Objective Vitals Vital Signs Date Time Temp Pulse Resp B/P Pulse Ox O2 Delivery O2 Flow Rate FiO2 10/08/16 08:41 98.7 70 20 118/74 98 10/08/16 05:47 96.9 74 18 121/72 93 10/08/16 00:32 98.1 60 18 106/74 99 10/07/16 22:04 98.8 78 18 147/86 97 10/07/16 18:00 78 16 149/96 100 Room Air 10/07/16 16:20 63 16 152/89 100 Room Air 10/07/16 13:10 74 16 124/80 97 Room Air 10/07/16 12:00 68 15 97/71 98 Room Air 10/07/16 09:30 57 16 143/80 98 Room Air Result Diagram: 10/07/16 0755 10/07/16 0755 Objective Remarks GENERAL: Patient is awake, follows most commands HEAD: Normocephalic. Tongue edema present and protruded. NECK: Trach site with minimal drainage. She is able to talk/ CARDIOVASCULAR: Regular rate. 2/6 HEMALATHA murmur best heard left upper sternal border RESPIRATORY: Breath sounds equal bilaterally. No accessory muscle use. GASTROINTESTINAL: Abdomen soft, non-tender, nondistended. MUSCULOSKELETAL: No cyanosis, or edema. NEURO: Awake. Follow commands. A/P Assessment and Plan 46-year-old female with tree of significant intracranial bleeding with residual cognitive deficits, patient had a trach secondary to macroglossia. She pulled out her trach and was brought into the hospital. Patient has no respiratory distress and pulmonology consulted on the patient and advised to keep the trach out and monitor the patient. She remained stable on room air and deemed safe for discharge. - Patient is discharge home in good condition with home health care for wound care dressing. - Her blood pressure remain in normal range and she did not require labetalol or hydralazine. These medications were discontinued on discharge. She is to continue amlodipine. - Case discussed with the patient's daughter, RN, in case management. Discharge home with home health care in good condition Diet: Remain nothing by mouth. Resume previous tube feeding Activity: Regular as tolerated Follow-up with PCP Follow-up with pulmonology as scheduled. Meds: Per med rec. Louise Jones MD Oct 08, 2016 09:09
[2016-10-08] MEDS: QUEtiapine FUMARATE 25 MG TAB TUBE SCH (12:02)
[2016-10-08] MEDS: SODIUM CHLORIDE 0.9% FLUSH 5 ML FLUSH FLUSH SCH (12:02)
== END 2016-10-08 14:31 | disposition home or self-care (01) ==
LOC: NEPC 05:05 → NEDA 07:26 → NEPFCDU 20:54
PROVIDERS: ADMIT Family Medicine; ATTEND Family Medicine
DX: J95.03 Malfunction of tracheostomy stoma (principal); Q38.2 Macroglossia; I62.9 Nontraumatic intracranial hemorrhage, unspecified; I42.1 Obstructive hypertrophic cardiomyopathy; I10 Essential (primary) hypertension; Z87.891 Personal history of nicotine dependence
CPT/HCPCS: 36600; 80048; 82805; 85025; 99285; A7520; G0378

== ENCOUNTER 2017-01-03 18:45 | Emergency (ER) | payer OTHER ==
[~2017-01-03] VITALS: Ht 180.3 cm; Wt 80.0 kg
[~2017-01-03 18:45] MED LIST changes: -ARGY3MIS8; -CARV12.5 PO; -ENOX40P SQ; -FAMO20TA2 TUBE; -GETGO ROLLING W1 MI1; -HOSP BED2; -HYDR25TA35 TUBE; -LABE300T TUBE; -NAPR550 PO; -PRIN20TA2 PO; -WHEEMIS3; -[UNRECOGNIZED DRUG - CODE]; -[UNRECOGNIZED DRUG - CODE]
[2017-01-03 18:46] VITALS: BP 185/110; PULSE 84; RESP 20; TEMP 99.2; O2SAT 99
--- NOTE | 2017-01-03 19:22 | PD ---
HPI Chief Complaint: Injury Time Seen by Provider: 19:13 Travel History International Travel<30 days: No Contact w/Intl Traveler<30days: No Traveled to known affect area: No History of Present Illness HPI 47-year-old female patient with history of previous CVA for which she had been admitted to ICU, had been headache and trach, presents today because she has been doing better according to her daughter and she is eating on her own, no longer needs the PEG tube. Her daughter wants to PEG tube to be removed. She states that it has been causing her discomfort. They state that they have been looking at several places to get her removed. They thought that he might be infected but were not able to give any description on what they mean or how long this has been going on. Modifying Factors: None Associated Signs & Symptoms: Request for PEG tube removal Risk Factors: None PFSH Past Medical History Hx Anticoagulant Therapy: Yes Arthritis: No Asthma: No Autoimmune Disease: No Blood Disorders: No Anxiety: No Depression: No Heart Rhythm Problems: No Cancer: No High Cholesterol: No Chest Pain: No Congestive Heart Failure: No COPD: No Cerebrovascular Accident: No Diabetes: No Diminished Hearing: No GERD: No Headaches: No Hepatitis: No Hiatal Hernia: No Hypertension: Yes Kidney Stones: No Myocardial Infarction: No Renal Failure: No Seizures: No Sleep Apnea: No Thyroid Disease: No Ulcer: No : 4 Para: 2 Miscarriage: 2 : 0 Ectopic : Yes Tubal Ligation: Yes Past Surgical History AICD: No Eye Surgery: Yes (12/07) Pacemaker: No Social History Alcohol Use: No Tobacco Use: No (patient reports that she quit smoking when she found out she was .) Substance Use: No Allergies-Medications (Allergen,Severity, Reaction): Coded Allergies: No Known Allergies (Verified , 04/11/16) Reported Meds & Prescriptions Reported Meds & Active Scripts Active Jevity 1.5 Slade (Nutritional Supplements) 1 Liq Liq 320 Ml TUBE Q6H 30 Days Xanax (Alprazolam) 0.25 Mg Tab 0.25 Mg PO Q8H PRN Quetiapine (Quetiapine Fumarate) 25 Mg Tab 25 Mg TUBE DAILY Quetiapine (Quetiapine Fumarate) 25 Mg Tab 50 Mg TUBE HS Duoneb (Ipratropium-Albuterol Neb) 0.5-2.5 Mg/3 Ml Neb 1 Ampule INH Q4HR NEB PRN Hydrocodone-Acetaminophen 5-325 mg Tab 1 Tab TUBE Q6H PRN Norvasc (Amlodipine Besylate) 10 Mg Tab 10 Mg TUBE DAILY Review of Systems ROS Limitations: Speech Impaired (history of her daughter. Patient is difficult to understand although awake and oriented.) Except as stated in HPI: all other systems reviewed are Neg Physical Exam Narrative GENERAL: Well-developed middle age -[place] female patient who is speech impaired due to large tongue. Awake, and alert. She does not appear to be in any acute distress. SKIN: Focused skin assessment warm/dry. HEAD: Atraumatic. Normocephalic. EYES: Pupils equal and round. No scleral icterus. No injection or drainage. ENT: Notable for tongue protrusion, difficulty speaking clearly due to tongue protrusion. Mucous membranes pink and moist. NECK: Trachea midline. No JVD. CARDIOVASCULAR: Regular rate and rhythm. No murmur appreciated. RESPIRATORY: No accessory muscle use. Clear to auscultation. Breath sounds equal bilaterally. GASTROINTESTINAL: Abdomen soft, non-tender, nondistended. Hepatic and splenic margins not palpable. PEG tube appears to be in place, clean base with no surrounding erythema, no significant drainage. MUSCULOSKELETAL: No obvious deformities. No clubbing. No cyanosis. No edema. NEUROLOGICAL: Awake and alert. Ambulatory, awake, alert, oriented 3. Difficulty with speech secondary to tongue protrusion. Moving all 4 extremities.. PSYCHIATRIC: Appropriate mood and affect; insight and judgment normal. Data Data Last Documented VS Vital Signs Date Time Temp Pulse Resp B/P Pulse Ox O2 Delivery O2 Flow Rate FiO2 01/03/17 18:46 99.2 84 20 185/110 99 Room Air MDM Medical Decision Making Medical Screen Exam Complete: Yes Emergency Medical Condition: Yes Medical Record Reviewed: Yes Differential Diagnosis PEG tube infection versus malplacement Narrative Course PEG tube appears to be in place. There are no signs of infection. It appears that the issues that the patient and her daughter do not want the PEG tube to be in place anymore and just wanted to be removed. At this point, I have evaluated patient's chart it appears that Dr. Diza had consult on the patient and my plan would be to have them follow-up in their office for removal. Return for any new issues as needed. The plan has been discussed with patient' s daughter and she states understanding. Diagnosis Primary Impression: Pain around PEG tube site Admitting Information Admitting Physician Requests: Admit Referrals: Rizwan Serra MD Disposition: 01 DISCHARGE HOME Condition: Stable Aki Richmond MD January 03, 2017 19:22
== END 2017-01-03 19:49 | disposition home or self-care (01) ==
LOC: NEPD 18:45
DX: Z43.1 Encounter for attention to gastrostomy (principal); Z86.73 Personal history of transient ischemic attack (TIA), and cerebral infarction without residual deficits; Z79.01 Long term (current) use of anticoagulants; I10 Essential (primary) hypertension
CPT/HCPCS: 99282